=== PATIENT | female | born 1930 | race Caucasian/White ===

== ENCOUNTER 2017-07-05 07:16 | Inpatient (IN) | payer OTHER ==
--- OUTSIDE RECORDS SUMMARY | 2017-07-05 07:19 | XMS REPORT | Clinical Summary ---
:1930 Author Organization [facility] Address [address] [place] [address] Phone Care Team Providers Name Role Phone Unavailable Primary Care Provider Unavailable Allergies Active Allergy Reactions Severity Noted Date Comments Mesalamine Rash High 12/05/2015 Sore throat, eyes hurt, "large whelps" Adalimumab Swelling High 12/05/2015 Methotrexate Analogues Other (See High 12/05/2015 SOB Comments) Abatacept (With Swelling High 12/05/2015 Maltose) Promethazine Other (See High 12/05/2015 Hallucinations Comments) Rituximab Swelling High 12/05/2015 Sulfasalazine Other (See Medium 12/05/2015 Headaches, weakness Comments) Current Medications Prescription Sig. Disp. Refills Start Date End Date Status esomeprazole (NEXIUM) 40 Take 40 mg by Active MG capsule mouth 2 (two) times daily . PARoxetine (PAXIL) 40 MG Take 40 mg by Active tablet mouth every morning. predniSONE (DELTASONE) 5 Take 5 mg by Active MG tablet mouth 2 (two) times daily . cycloSPORINE (RESTASIS) 1 drop 2 (two) Active 0.05 % ophthalmic times daily. emulsion budesonide-formoterol Inhale 2 puffs by Active (SYMBICORT) 160-4.5 mouth via inhaler mcg/actuation inhaler 2 (two) times daily. albuterol HFA (VENTOLIN Inhale 1 puff by Active HFA) 90 mcg/actuation mouth via inhaler inhaler every 6 (six) hours as needed for Wheezing. umeclidinium (INCRUSE Inhale 1 puff by Active ELLIPTA) 62.5 mouth via inhaler mcg/actuation DsDv daily . powder for inhalation aspirin 81 MG EC tablet Take 81 mg by Active mouth daily. furosemide (LASIX) 20 MG Take 20 mg by Active tablet mouth as needed. levothyroxine Take 50 mcg by 12/06/2015 12/05/2016 (SYNTHROID, LEVOTHROID) mouth Every 75 MCG tablet morning on an empty stomach. Active Problems Problem Noted Date Arrhythmia 02/02/2016 PVC (premature ventricular contraction) 02/01/2016 TIA (transient ischemic attack) 01/31/2016 Hypothyroidism 01/31/2016 Transient cerebral ischemia, unspecified type 12/05/2015 COPD (chronic obstructive pulmonary disease) (HCC) GERD (gastroesophageal reflux disease) Anxiety Thyroid disease Social History Tobacco Use Types Packs/Day Years Used Date Never Smoker Sex Assigned at Date Recorded Not on file Last Filed Vital Signs Not on file Plan of Treatment Not on file Results Not on fileafter 07/04/2016
--- OUTSIDE RECORDS SUMMARY | 2017-07-05 07:19 | XMS REPORT | Clinical Summary ---
:1930 Author Organization [facility] Address [address] [place] [address] Care Team Providers Name Role Phone Asked, No Pcp Primary Care Provider Unavailable Allergies Active Allergy Reactions Severity Noted Date Comments Mesalamine Itching 03/31/2017 Adalimumab Swelling, Shortness Of Breath High 02/18/2016 Methotrexate Shortness Of Breath High 03/31/2017 Abatacept Other (See Comments) 02/18/2016 Joint pains Promethazine Other (See Comments) 03/31/2017 Sulfasalazine Anaphylaxis High 03/31/2017 Current Medications Prescription Sig. Disp. Refills Start Date End Date Status ALPRAZolam (XANAX) Take 0.25 mg Active 0.25 MG tablet by mouth every morning. atorvastatin Take 40 mg by Active (LIPITOR) 40 MG mouth nightly. tablet roflumilast Take 500 mcg Active (DALIRESP) 500 mcg by mouth tablet daily. famotidine (PEPCID) Take 20 mg by Active 20 MG tablet mouth nightly. levothyroxine Take 50 mcg by Active (SYNTHROID, mouth daily. LEVOXYL) 50 mcg tablet lisinopril Take 10 mg by Active (PRINIVIL,ZESTRIL) mouth daily. 10 mg tablet PARoxetine (PAXIL) Take 40 mg by Active 10 MG tablet mouth daily with dinner. predniSONE Take 5 mg by Active (DELTASONE) 5 mg mouth 2 (two) tablet times a day. budesonide-formoter Inhale 2 puffs Active ol (SYMBICORT) 2 (two) times 160-4.5 a day. mcg/actuation inhaler albuterol (PROAIR Inhale 2 puffs Active HFA,PROVENTIL every 6 (six) HFA,VENTOLIN HFA) hours as 90 mcg/actuation needed for inhaler wheezing. tiotropium Place 1 Active (SPIRIVA) 18 mcg capsule into per inhalation inhaler and capsule inhale once daily. acetaminophen-codei Take 1 tablet Active ne (TYLENOL WITH by mouth every CODEINE #3) 300-30 6 (six) hours mg per tablet as needed for moderate pain (Headaches). benzonatate Take 200 mg by Active (TESSALON) 100 MG mouth 3 capsule (three) times a day as needed for cough. docusate sodium Take 100 mg by Active (COLACE) 100 MG mouth 2 (two) capsule times a day as needed for constipation. furosemide (LASIX) Take 20 mg by Active 20 mg tablet mouth 2 (two) times a day. clopidogrel Take 75 mg by Discontinued (PLAVIX) 75 mg mouth nightly. 8 tablet meloxicam (MOBIC) Take 7.5 mg by Discontinued 7.5 mg tablet mouth 2 (two) 8 times a day as needed (back pain). traMADol (ULTRAM) Take 1 tablet 30 tablet 0 04/18/2017 50 mg tablet (50 mg total) 8 by mouth every 6 (six) hours as needed for moderate pain for up to 10 days. simethicone Chew 1.5 180 tablet 0 04/18/2017 (MYLICON) 80 MG tablets (120 8 chewable tablet mg total) 4 (four) times a day for 30 days. clopidogrel Take 1 tablet 30 tablet 0 04/19/2017 (PLAVIX) 75 mg (75 mg total) 8 tablet by mouth daily for 30 days. pantoprazole Take 1 tablet 30 tablet 0 04/19/2017 (PROTONIX) 40 MG EC (40 mg total) 8 tablet by mouth daily for 30 days. polyethylene glycol Take 17 g by 30 packet 0 04/20/2017 (MIRALAX) 17 gram mouth daily 8 packet for 30 days. Active Problems Problem Noted Date Hiatal hernia 03/31/2017 Encounters Date Type Specialty Care Team Description 04/25/2017 Office Visit General Surgery Jose Alberto Chiu Surgery follow-up MD Jamie (Primary Dx) 2017 Telephone General Surgery Sheryl Herron PA 04/12/2017 Anesthesia Event General Surgery Madhu Monsivais MD 04/12/2017 Procedure Pass General Surgery 04/12/2017 Surgery General Surgery Jose Alberto Chiu LAPAROSCOPIC HIATAL MD Jamie HERNIA REPAIR converted to OPEN HIATAL HERNIA REPAIR WITH FUNDOPLICATION 04/08/2017 - Hospital Encounter General Surgery Jose Alberto Chiu 04/19/2017 MD Lenka Ayala Chau L., MD Kazim, Lubna S., MD 04/08/2017 Procedure Pass General Surgery 04/08/2017 Surgery General Surgery Jose Alberto Chiu Canceled MD Jamie LAPAROSCOPIC VS OPEN HIATAL HERNIA REPAIR 03/31/2017 - Hospital Encounter Cardiology Kevin Andre Hiatal hernia ( Primary 04/07/2017 MD Michelle Dx) Ambrosio Og MD 03/31/2017 Office Visit General Surgery Jose Alberto Chiu Hiatal hernia ( Primary RMD Pratima Dx) after 07/04/2016 Family History Medical History Relation Name Comments No Known Problems Brother Cancer Father Hypertension Father Vision loss Father No Known Problems Maternal Grandfather No Known Problems Maternal Grandmother Thyroid disease Mother Vision loss Mother No Known Problems Paternal Grandfather No Known Problems Paternal Grandmother No Known Problems Sister Relation Name Status Comments Brother Father Maternal Grandfather Maternal Grandmother Mother Paternal Grandfather Paternal Grandmother Sister Social History Tobacco Use Types Packs/Day Years Used Date Never Smoker Smokeless Tobacco: Never Used Tobacco Cessation: Counseling Given: No Alcohol Use Drinks/Week oz/Week Comments No Sex Assigned at Date Recorded Not on file Last Filed Vital Signs Vital Sign Reading Time Taken Blood Pressure 154/73 04/19/2017 11:52 AM FIRE PRODUCTION OPERATOR Pulse 101 04/19/2017 1:00 PM FIRE PRODUCTION OPERATOR Temperature 36.7 C (98 F) 04/19/2017 11:52 AM FIRE PRODUCTION OPERATOR Respiratory Rate 20 04/19/2017 1:00 PM FIRE PRODUCTION OPERATOR Oxygen Saturation 96% 04/19/2017 2:33 PM FIRE PRODUCTION OPERATOR Inhaled Oxygen Concentration - - Weight 54.4 kg (120 lb) 04/12/2017 12:01 PM FIRE PRODUCTION OPERATOR Height 149.9 cm (4' 11") 04/12/2017 12:01 PM FIRE PRODUCTION OPERATOR Body Mass Index 24.24 04/12/2017 12:01 PM FIRE PRODUCTION OPERATOR Plan of Treatment Health Maintenance Due Date Last Done Comments ZOSTER VACCINE 1991 PNEUMOCOCCAL POLYSACCHARIDE VACCINE AGE 65 AND OVER 1996 PNEUMOCOCCAL-13 1996 INFLUENZA VACCINE 10/12/2017 Implants Implanted Type Area Pc Support Specialist Device Identifier Expiration Date Model / Serial / Lot Reveal Linq-02/02/2016 Implanted: Qty: 1 on 02/02/2016 Procedures Procedure Name Priority Date/Time Associated Diagnosis Comments CENTRAL LINE Routine 04/12/2017 2:01 PM FIRE PRODUCTION OPERATOR Procedure Note - Madhu Monsivais MD - 04/12/2017 2:00 PM FIRE PRODUCTION OPERATOR Central line Performed by: MADHU MONSIVAIS Authorized by: MADHU MONSIVAIS Start Time: 04/12/2017 1:20 PM Preprocedure:patient identified, IV checked, site and side verified, risks and benefits discussed, procedure verified, surgical consent complete, patient position confirmed, monitors and equipment checked and pre-op evaluation complete MSBT: antiseptic used during central venous catheter insertion, all elements of maximal sterile barrier technique followed, hand hygiene performed prior to central venous catheter insertion, cap/gown used by other personnel during central venous catheter insertion, solutions labeled and all ports not used during insertion clamped TIme Out Performed: 04/12/2017 1:20 PM Indications: Indications: Vascular access Anesthesia: Anesthesia: General Procedure details: Patient position: Supine Catheter Type: Double lumen Catheter Size: 8 Fr Catheter Site: femoral vein Catheter site laterality: Right Catheter Site comment: Attempted right IJ and left IJ separately with ultrasound; both got great flow, but wire wouldnt thread Ultrasound guidance used: Yes Ultrasound image saved: No Number of attempts: 3 Successful placement: Yes Guidewire removal: Guidewire removal is confirmed Guidewire removal witnessed by: DOMINGO RIOJAS Post-procedure: Post-procedure: line sutured, sterile dressing applied per protocol and ports flushed with saline Post-procedure: Blood cleaned with CHG and sterile caps on all hubs Assessment: Blood return through all ports and free fluid flow Patient tolerance: Patient tolerated the procedure well with no immediate complications [place] AN ELECTIVE ENDOTRACHEAL AIRWAY Routine 04/12/2017 1:58 PM FIRE PRODUCTION OPERATOR Procedure Note - Madhu Monsivais MD - 04/12/2017 1:58 PM FIRE PRODUCTION OPERATOR Airway Performed by: MADHU MONSIVAIS Authorized by: MADHU MONSIVAIS Location: OR Urgency: Elective Difficult Airway: No Preoxygenated with 100% O2: Yes C-spine Precautions Maintained Throughout: Yes Mask Ventilation: Easy mask Final Airway Type: Endotracheal airway Final Endotracheal Airway: ETT Technique Used: Direct laryngoscopy Blade Type: Randall Laryngoscope Blade/Videolaryngoscope Blade Size: 2 ETT Size (mm): 7.0 Measured from: Lips ETT to Lips (cm): 21 Placement Verified by: CO2 detection and direct visualization Laryngoscopic view: Grade I - full view of glottis Rapid Sequence Induction (RSI): No Modified RSI: No Number of Attempts at Approach: 1 LAPAROSCOPIC HIATAL 04/12/2017 1:30 PM Hiatal hernia HERNIA REPAIR converted FIRE PRODUCTION OPERATOR to OPEN HIATAL HERNIA REPAIR WITH FUNDOPLICATION CV STRESS TEST NUCLEAR Routine 04/02/2017 9:47 AM Results for this CARDIO FIRE PRODUCTION OPERATOR procedure are in the results section. ECHOCARDIOGRAM 2D Routine 04/01/2017 4:35 PM Results for this COMPLETE W MMODE FIRE PRODUCTION OPERATOR procedure are in SPECTRAL COLOR DOPPLER the results (54540) section. after 07/04/2016 Results Pv duplex venous lower extremity (04/19/2017 11:11 AM) Specimen Performing Laboratory [facility] [address] [place] [address] Narrative Vascular Ultrasound Laboratory Lower Extremity Venous Report [address] [place] [address] Pat.Name:ELVA JENKINS Pat.ID:[id number] .Date: 04/19/2017Refer.MD:AMBROSIO OG MD Exam Time: 10:32:00 AM Study Type:LE Venous Height:59inWeight:120lb BSA: 1.49 m2 DOBAge:1930,86Y Sex: FEMALESonogrphr: Eliel Ghotra RN, RVS Pat. Stat.:OutpatientTapeVol: PM, CPT - 4: 60802 Echo Event ID:[id number] Order ID:[id number] Reason for Study:Bilateral leg edema. Race:C SUMMARY: DUPLEX SCAN OBSERVATIONS Deep VeinsSuperficial Veins RightLeft RightLeft GSV (prox) NormalNormal CFV Normal Normal (above knee) Femoral Normal Normal GSV (dist) Normal Normal Profunda Normal Normal (below knee) Popliteal Normal Normal PT (prox) Normal NormalSSV Normal Normal PT (dist) Normal Normal Peroneal Normal Normal RIGHT: There is normal compressibility with no evidence of echogenic material noted within the lumen of the visualized veins. Colorflow and Doppler signals are normal. LEFT: There is normal compressibility with no evidence of echogenic material noted within the lumen of the visualized veins. Colorflow and Doppler signals are normal. PRELIMINARY FINDINGS 1. Normal venous duplex exam of the visualized veins. PHYSICIAN INTERPRETATION 1.Venous examination of the both lower extremities demonstrates no evidence of venous thrombosis. Signed 04/19/2017 12:55 PM Tucker Kc MD Procedure Note Interface, Radiology Results In - 04/19/2017 12:56 PM [facility] Vascular Ultrasound Laboratory Lower Extremity Venous Report [address] [place] [address] Pat.Name: ELVA JENKINS [facility].ID: [id number] .Date: 04/19/2017 Refer.MD: AMBROSIO OG MD Exam Time: 10:32:00 AM Study Type:LE Venous Height: 59in Weight: 120lb BSA: 1.49 m2 Age: 2 1930,86Y Sex: FEMALE Sonogrphr: Eliel Ghotra RN, RVS Pat. Stat.:Outpatient Tape Vol: PM, [facility] - 4: 15880 Echo Event ID:[id number] Order ID: [id number] Reason for Study:Bilateral leg edema. Race: C SUMMARY: DUPLEX SCAN OBSERVATIONS Deep Veins Superficial Veins Right Left Right Left GSV (prox) Normal Normal CFV Normal Normal (above knee) Femoral Normal Normal GSV (dist) Normal Normal Profunda Normal Normal (below knee) Popliteal Normal Normal PT (prox) Normal Normal SSV Normal Normal PT (dist) Normal Normal Peroneal Normal Normal RIGHT: There is normal compressibility with no evidence of echogenic material noted within the lumen of the visualized veins. Colorflow and Doppler signals are normal. LEFT: There is normal compressibility with no evidence of echogenic material noted within the lumen of the visualized veins. Colorflow and Doppler signals are normal. PRELIMINARY FINDINGS 1. Normal venous duplex exam of the visualized veins. PHYSICIAN INTERPRETATION 1. Venous examination of the both lower extremities demonstrates no evidence of venous thrombosis. Signed 04/19/2017 12:55 PM Tucker Kc MD Estimated GFR (04/19/2017 4:00 AM)Only the most recent of19 resultswithin the time period is included. Component Value Ref Range GFR Non Af Amer 79 mL/min/1.73 m2 GFR Af Amer >90 mL/min/1.73 m2 Comment: Chronic kidney disease: <60 mL/min/1.73m2 Kidney failure: <15 mL/min/1.73m2 The estimated GFR is calculated from the IDMS-traceable Modification of Diet in Renal Disease Equation. The accuracy of the calculation is poor when the creatinine is normal. Calculated values >90 mL/min/1.73m2 are not reported. This equation has not been validated in children (<18 years), women, the elderly (>70 years), or ethnic groups other than Caucasians and Americans. Specimen Performing Laboratory Plasma specimen [facility] DEPARTMENT OF PATHOLOGY AND GENOMIC MEDICINE [address] [place] [address] Phosphorus level (04/19/2017 4:00 AM)Only the most recent of5 resultswithin the time period is included. Component Value Ref Range Phosphorus 2.6 2.4 - 4.5 mg/dL Specimen Performing Laboratory Plasma specimen [facility] DEPARTMENT OF PATHOLOGY AND GENOMIC MEDICINE [address] [place] [address] Magnesium level (04/19/2017 4:00 AM)Only the most recent of4 resultswithin the time period is included. Component Value Ref Range Magnesium 1.6 1.6 - 2.4 mg/dL Specimen Performing Laboratory Plasma specimen [facility] DEPARTMENT OF PATHOLOGY AND GENOMIC MEDICINE [address] [place] [address] Basic metabolic panel (04/19/2017 4:00 AM)Only the most recent of17 resultswithin the time period is included. Component Value Ref Range Sodium 141 135 - 148 mEq/L Potassium 3.4 (L) 3.5 - 5.0 mEq/L Chloride 100 98 - 112 mEq/L CO2 30 24 - 31 mEq/L Anion gap 11 7 - 15 mEq/L Comment: Starting from June , anion gap calculation no longer incorporates potassium. Please note the change. BUN 7 (L) 8 - 23 mg/dL Creatinine 0.7 0.5 - 0.9 mg/dL Glucose 117 (H) 65 - 99 mg/dL Calcium 8.2 (L) 8.8 - 10.2 mg/dL Specimen Performing Laboratory Plasma specimen [facility] DEPARTMENT OF PATHOLOGY AND GENOMIC MEDICINE [address] [place] [address] CBC with platelet and differential (04/19/2017 3:45 AM)Only the most recent of19 resultswithin the time period is included. Component Value Ref Range WBC 10.26 4.50 - 11.00 k/uL RBC 2.89 (L) 4.20 - 5.50 m/uL HGB 9.0 (L) 12.0 - 16.0 g/dL HCT 27.2 (L) 37.0 - 47.0 % MCV 94.1 82.0 - 100.0 fL MCH 31.1 27.0 - 34.0 pg MCHC 33.1 31.0 - 37.0 g/dL RDW - SD 48.7 37.0 - 55.0 fL MPV 9.1 8.8 - 13.2 fL Platelet count 305 150 - 400 k/uL Nucleated RBC 0.00 /100 WBC Neutrophils 65.7 39.0 - 69.0 % Lymphocytes 26.3 25.0 - 45.0 % Monocytes 5.9 0.0 - 10.0 % Eosinophils 1.3 0.0 - 5.0 % Basophils 0.3 0.0 - 1.0 % Immature granulocytes 0.5Comment: "Immature granulocytes" 0.0 - 1.0 % (promyelocytes, myelocytes, metamyelocytes) Specimen Performing Laboratory Blood [facility] DEPARTMENT OF PATHOLOGY AND GENOMIC MEDICINE [address] [place] [address] XR Abdomen 1 Vw Portable (04/17/2017 1:00 PM)Only the most recent of2 resultswithin the time period is included. Specimen Performing Laboratory [facility] [address] [place] [address] Narrative EXAMINATION:XR ABDOMEN 1 VW PORTABLE CLINICAL HISTORY:Distention COMPARISON:April 16, 2017 IMPRESSION: Diffuse bowel distention, most pronounced in the right colon, is without significant change. The cecum measures approximately 7.5 cm. This is suggestive of ileus. Left femoral line is again noted. Midline skin digna are also present. [facility]-[id number] Procedure Note Interface, Radiology Results Incoming - 04/17/2017 1:07 PM FIRE PRODUCTION OPERATOR EXAMINATION: XR ABDOMEN 1 VW PORTABLE CLINICAL HISTORY: Distention COMPARISON: April 16, 2017 IMPRESSION: Diffuse bowel distention, most pronounced in the right colon, is without significant change. The cecum measures approximately 7.5 cm. This is suggestive of ileus. Left femoral line is again noted. Midline skin digna are also present. [facility]-[id number] XR Abdomen 2 Vw Ap W Upright And/Or Decubitus (04/16/2017 9:23 AM) Specimen Performing Laboratory [facility] [address] [place] [address] Narrative EXAMINATION:XR ABDOMEN 2 VW AP W UPRIGHT AND OR DECUBITUS CLINICAL HISTORY:Distention COMPARISON:04/15/2017 IMPRESSION: 1.There are operative changes related to laparotomy. Surgical clips are seen in the right upper quadrant consistent with prior cholecystectomy. A left femoral central venous catheter remains in place. 2.A dilated loop of bowel is present in the right lower abdomen likely representing the cecum. A few air-fluid levels are present. There is no evidence of free intraperitoneal air. 3.There is patchy volume loss at the left lung base with a tiny left pleural effusion. [id number] Procedure Note Interface, Radiology Results Incoming - 04/16/2017 9:31 AM FIRE PRODUCTION OPERATOR EXAMINATION: XR ABDOMEN 2 VW AP W UPRIGHT AND OR DECUBITUS CLINICAL HISTORY: Distention COMPARISON: 04/15/2017 IMPRESSION: 1. There are operative changes related to laparotomy. Surgical clips are seen in the right upper quadrant consistent with prior cholecystectomy. A left femoral central venous catheter remains in place. 2. A dilated loop of bowel is present in the right lower abdomen likely representing the cecum. A few air-fluid levels are present. There is no evidence of free intraperitoneal air. 3. There is patchy volume loss at the left lung base with a tiny left pleural effusion. [facility]-[id number] ECG 12 lead (04/13/2017 4:43 AM)Only the most recent of2 resultswithin the time period is included. Component Value Ref Range Ventricular rate 112 Atrial rate 112 [place] interval 122 QRSD interval 72 QT interval 330 QTC interval 450 P axis 1 55 QRS axis 1 21 T wave axis 40 EKG impression Sinus tachycardia-Otherwise normal ECG-In automated comparison with ECG of 02-APR-2017 06:09,-No significant change was found- Specimen Performing Laboratory [facility] MUSE [address] [place] [address] XR Chest 1 Vw Portable (04/12/2017 3:48 PM) Specimen Performing Laboratory [facility] [address] [place] [address] Narrative Examination:XR CHEST 1 VW PORTABLE Clinical history:"Attempted central line placements" Comparison:None IMPRESSION: Lungs are clear. Heart size is within normal limits. Bones are osteopenic. Left cervical calcifications are seen. [id number] Procedure Note [facility], Radiology Results Incoming - 04/12/2017 4:14 PM FIRE PRODUCTION OPERATOR Examination: XR CHEST 1 VW PORTABLE Clinical history: "Attempted central line placements" Comparison: None IMPRESSION: Lungs are clear. Heart size is within normal limits. Bones are osteopenic. Left cervical calcifications are seen. [id number] Partial thromboplastin time, activated (04/12/2017 4:00 AM)Only the most recent of2 resultswithin the time period is included. Component Value Ref Range PTT 25.6 23.0 - 36.0 sec Comment: PTT therapeutic range for unfractionated heparin is 61.0-112.0 seconds which corresponds to Anti-Xa 0.3-0.7 U/ml. Specimen Performing Laboratory Blood [facility] DEPARTMENT OF PATHOLOGY AND GENOMIC MEDICINE [address] [place] [address] Prothrombin time with INR (04/12/2017 4:00 AM)Only the most recent of2 resultswithin the time period is included. Component Value Ref Range Prothrombin time 13.2 12.0 - 15.0 sec INR 1.0 Comment: The International Normalized Ratio (INR) is a therapeutic monitoring tool for patients who are stable on oral anticoagulant therapy. An INR of 2.0-3.0 is suggested for deep vein thrombosis/pulmonary embolism. Specimen Performing Laboratory Blood [facility] DEPARTMENT OF PATHOLOGY AND GENOMIC MEDICINE [address] [place] [address] Type and screen (04/12/2017 4:00 AM) Component Value Ref Range ABO grouping A Rh type POS Antibody screen (gel) NEG Specimen Performing Laboratory Blood [facility] DEPARTMENT OF PATHOLOGY AND GENOMIC MEDICINE [address] [place] [address] XR Chest 2 Vw (04/11/2017 7:49 PM)Only the most recent of3 resultswithin the time period is included. Specimen Performing Laboratory [facility] [address] [place] [address] Narrative Examination: Chest 2 views CLINICAL HISTORY: COPD Emphysema COMPARISON: None. FINDINGS: The heart is not enlarged. There is a large retrocardiac hiatal hernia. IMPRESSION: . There is better aeration of both lungs when compared to a recent CT scan from 04/08/2017 with a most complete resolution of right lower lobe parenchymal infiltrates. No pleural effusion. [id number] Procedure Note [facility], Radiology Results Incoming - 04/11/2017 8:47 PM FIRE PRODUCTION OPERATOR Examination: Chest 2 views CLINICAL HISTORY: COPD Emphysema COMPARISON: None. FINDINGS: The heart is not enlarged. There is a large retrocardiac hiatal hernia. IMPRESSION: . There is better aeration of both lungs when compared to a recent CT scan from 04/08/2017 with a most complete resolution of right lower lobe parenchymal infiltrates. No pleural effusion. [id number] Vancomycin level, trough (04/11/2017 3:00 PM) Component Value Ref Range Vancomycin, trough 7.1 (L) 10.0 - 20.0 ug/mL Comment: Therapeutic Ranges: Peak 30.0 - 40.0 ug/mL Aiksmg30.0 - 20.0 ug/mL Specimen Performing Laboratory Serum [facility] DEPARTMENT OF PATHOLOGY AND [facility] MEDICINE [address] [place] [address] Sputum culture (04/11/2017 10:00 AM) Component Value Ref Range Sputum culture isolate No normal oral jamal isolated. (A) Comment: Specimen Information Specimen Source: Sputum Specimen Site: Expectorated Sputum culture isolate Amber albicans Occasional The performance characteristics of this assay on this isolate were validated by the Microbiology Laboratory at [facility].This source has not been approved by the U.S. Food and Drug Administration.The results are not intended to be used as the sole means for clinical diagnosis or patient management.The Microbiology Laboratory is authorized under the clinical Laboratory Improvement Amendments of 1988 (CLIA-88) to perform high complexity testing. The performance characteristics of this assay on this isolate were validated by the Microbiology Laboratory at [facility].This source has not been approved by the U.S. Food and Drug Administration.The results are not intended to be used as the sole means for clinical diagnosis or patient management.The Microbiology Laboratory is authorized under the clinical Laboratory Improvement Amendments of 1988 (CLIA-88) to perform high complexity testing. (A) Specimen Performing Laboratory Sputum - Expectorated [facility] DEPARTMENT OF PATHOLOGY AND GENOMIC MEDICINE [address] [place] [address] Gram stain (04/11/2017 10:00 AM) Component Value Ref Range Gram stain isolate No WBC's Few epithelial cells No organisms seen Comment: Specimen Information Specimen Source: Sputum Specimen Site: Expectorated Specimen Performing Laboratory Sputum - Expectorated [facility] DEPARTMENT OF PATHOLOGY AND GENOMIC MEDICINE [address] [place] [address] CT Chest Wo Contrast (04/08/2017 8:17 PM) Specimen Performing Laboratory [facility] [address] [place] [address] Narrative EXAMINATION: CT CHEST WO CONTRAST CLINICAL HISTORY: reported nodule on lungnew fevers TECHNIQUE:Multiple axial images of the chest were obtained without intravenous contrast. The lack of intravenous contrast reduces the sensitivity of detecting solid organ disease and evaluating vasculature. Sagittal and coronal computerized reformatted images were also obtained. CT scans are performed using radiation dose reduction techniques. Technical factors are evaluated and adjusted to ensure appropriate moderation of exposure. Automated dose management technology is applied to adjust radiation exposure while achieving a diagnostic quality image COMPARISON: Multiple nodular areas with irregular borders are noted throughout the right lower lobe.While neoplasm is not excluded multifocal inflammatory processes are considered more likely.No such findings are seen in the right upper lobe or in the left lung field. IMPRESSION: Bilateral multifocal irregular nodules most compatible with inflammatory change. [facility]-[id number] Procedure Note Hm Interface, Radiology Results Incoming - 04/08/2017 8:27 PM FIRE PRODUCTION OPERATOR EXAMINATION: CT CHEST WO CONTRAST CLINICAL HISTORY: reported nodule on lung new fevers TECHNIQUE: Multiple axial images of the chest were obtained without intravenous contrast. The lack of intravenous contrast reduces the sensitivity of detecting solid organ disease and evaluating vasculature. Sagittal and coronal computerized reformatted images were also obtained. CT scans are performed using radiation dose reduction techniques. Technical factors are evaluated and adjusted to ensure appropriate moderation of exposure. Automated dose management technology is applied to adjust radiation exposure while achieving a diagnostic quality image COMPARISON: Multiple nodular areas with irregular borders are noted throughout the right lower lobe. While neoplasm is not excluded multifocal inflammatory processes are considered more likely. No such findings are seen in the right upper lobe or in the left lung field. IMPRESSION: Bilateral multifocal irregular nodules most compatible with inflammatory change. [facility]-[id number] Respiratory pathogen panel (04/08/2017 10:25 AM) Component Value Ref Range Respiratory pathogen panel Negative for all pathogens tested: Negative for Adenovirus Negative for Coronavirus HKU1 Negative for Coronavirus NL63 Negative for Coronavirus 229E Negative for Coronavirus OC43 Negative for Human Metapneumovirus Negative for Rhinovirus/Enterovirus Negative for Influenza A Negative for Influenza A/H1 Negative for Influenza A/H3 Negative for Influenza A/H1-2009 Negative for Influenza B Negative for Parainfluenza Virus 1 Negative for Parainfluenza Virus 2 Negative for Parainfluenza Virus 3 Negative for Parainfluenza Virus 4 Negative for Respiratory Syncytial Virus Negative for Bordetella pertussis Negative for Chlamydophila pneumoniae Negative for Mycoplasma pneumoniae This real-time PCR assay detects the presence of nucleic acids (RNA or DNA) for the respiratory pathogens listed. A result of "Not-detected" does not exclude the possibility of the presence of one or more pathogens at concentrations less than the detectable limits of the assay. Comment: Specimen Information Specimen Source: Nares Specimen Site: Not specified Specimen Performing Laboratory Nares - Not specified [facility] DEPARTMENT OF PATHOLOGY AND GENOMIC MEDICINE [address] [place] [address] Urinalysis screen and microscopy, with reflex to culture (04/08/2017 8:33 AM) Component Value Ref Range Specimen site Random void Color, UA Dark Yellow Appearance, UA Clear Specific gravity, UA 1.016 1.001 - 1.035 pH, UA 7.0 5.0 - 8.5 Protein, UA Negative Negative Glucose, UA Negative Negative Ketones, UA Negative Negative Bilirubin, UA Negative Negative Blood, UA Negative Negative Nitrite, UA Negative Negative Urobilinogen, UA 2.0 (A) <2.0 Leukocyte esterase, UA Negative Negative Epithelial cells, UA 1 /HPF WBC, UA 1 0 - 4 /HPF RBC, UA 3 (H) 0 - 2 /HPF Bacteria, UA Few None seen Yeast, UA None seen Yeast with pseudohyphae, UA None seen Specimen Performing Laboratory Urine [facility] DEPARTMENT OF PATHOLOGY AND GENOMIC MEDICINE [address] [place] [id number] Urine culture (04/08/2017 8:33 AM) Component Value Ref Range Urine culture SEE COMMENTComment: Bacteriuria screen negative. Specimen Performing Laboratory [facility] DEPARTMENT OF PATHOLOGY AND [facility] [address] [place] [address] Blood culture, aerobic & anaerobic (04/08/2017 8:18 AM)Only the most recent of2 resultswithin the time period is included. Component Value Ref Range Blood culture isolate No growth after 5 days of incubation. Comment: Specimen Information Specimen Source: Blood Specimen Site: Hand, right Specimen Performing Laboratory Blood - Hand, right [facility] DEPARTMENT OF PATHOLOGY AND [facility] [address] [place] [address] Comprehensive metabolic panel (04/08/2017 8:00 AM)Only the most recent of2 resultswithin the time period is included. Component Value Ref Range Sodium 138 135 - 148 mEq/L Potassium 3.7 3.5 - 5.0 mEq/L Chloride 99 98 - 112 mEq/L CO2 28 24 - 31 mEq/L Anion gap 11 7 - 15 mEq/L Comment: Starting from June , anion gap calculation no longer incorporates potassium. Please note the change. BUN 12 8 - 23 mg/dL Creatinine 0.6 0.5 - 0.9 mg/dL Glucose 107 (H) 65 - 99 mg/dL Calcium 8.7 (L) 8.8 - 10.2 mg/dL Protein 5.8 (L) 6.3 - 8.3 g/dL Comment: 4.6-7.0 g/dL 1 week 4.4-7.6 g/dL 7 months-1year5.1-7.3 g/dL 1-2 years5.6-7.5 g/dL >3 years6.0-8.0 g/dL 18-150 6.3-8.3 g/dL Albumin 2.6 (L) 3.5 - 5.0 g/dL A/G ratio 0.8 0.7 - 3.8 Alkaline phosphatase 40 35 - 104 U/L AST 18 10 - 35 U/L ALT 17 5 - 50 U/L Total bilirubin 1.0 0.0 - 1.2 mg/dL Specimen Performing Laboratory Plasma specimen [facility] DEPARTMENT OF PATHOLOGY AND [facility] [address] [place] [address] C difficile toxin (04/06/2017 1:15 PM) Component Value Ref Range Clostridium difficile toxin No Clostridium difficle toxin present Comment: Specimen Information Specimen Source: Stool Specimen Site: Nonpreserved Specimen Performing Laboratory Stool - Nonpreserved [facility] [address] [address] C-reactive protein (04/03/2017 4:00 AM) Component Value Ref Range CRP <0.30 0.00 - 0.50 mg/dL Specimen Performing Laboratory Plasma specimen [facility] DEPARTMENT OF PATHOLOGY AND [facility] [address] [place] [address] Prealbumin level (04/03/2017 4:00 AM) Component Value Ref Range Prealbumin 23 16 - 32 mg/dL Specimen Performing Laboratory Serum [facility] DEPARTMENT PATHOLOGY [address] [address] Hepatic function panel (04/03/2017 4:00 AM) Component Value Ref Range Albumin 2.7 (L) 3.5 - 5.0 g/dL Total bilirubin 0.6 0.0 - 1.2 mg/dL Bilirubin direct <0.2 0.0 - 0.3 mg/dL Alkaline phosphatase 39 35 - 104 U/L Protein 5.4 (L) 6.3 - 8.3 g/dL Comment: 4.6-7.0 g/dL 1 week 4.4-7.6 g/dL 7 months-1year5.1-7.3 g/dL 1-2 years5.6-7.5 g/dL >3 years6.0-8.0 g/dL 18-150 6.3-8.3 g/dL ALT 20 5 - 50 U/L AST 18 10 - 35 U/L Specimen Performing Laboratory Plasma specimen [facility] DEPARTMENT OF PATHOLOGY AND GENOMIC MEDICINE [address] [place] [address] CV stress test (04/02/2017 9:47 AM) Component Value Ref Range Resting HR 89 Resting BP 134 Peak MET Achieved 1.0 Protocol Name REGADENO Time in Exercise Phase 00:01:00 Max Systolic BP 134 Max Diastolic BP 60 Max Heart Rate 113 Max Predicted Heart Rate 135 Target HR Formula (220 - Age)*100% Test Indication chest pain Arrhy During Ex ECG Interp Before EX ECG Interp During Ex Ex Summary Comment Overall HR Response to Exercise Overall BP Response To Exercise Reason for Termination Stress Test Impression -Waveform interpreted in report associated with image study. No interpretation is provided as part of this Stress ECG report.-Electronically Signed By Liberty PALOMARES, Eduard ([id number]), school photograph editor Esa Munoz ([id number]) on 04/03/2017 1:32:55 PM Specimen Performing Laboratory [facility] MUSE [address] [place] [address] Nm myocardial perfusion (04/02/2017 9:47 AM) Specimen Performing Laboratory [facility] [address] [place] [address] Narrative Nuclear Cardiology and Cardiac CT [address] [place] [address] Myocardial Perfusion Imaging Report Stress ECG tracings are available in MUSE, EPIC and CV Web All ECG interpretations are included in this report Pat.Name:ELVA JENKINS Pat.ID:[id number] .Date: 04/02/2017 Refer.MD:KEVIN ANDRE MD Exam Time: 8:46:00 AM Study Type:Myocardial Perfusion Imaging Height:59inWeight:119lb BSA: 1.48 m2 DOBAge:1930,86Y Sex: FEMALEBP:134/60 HR:89 bpm Nuclear Tech:CARRIE Carpenter, SEBASTIÁN/CARRIE Najera Pat. Stat.:Inpatient Room:A748 Nuclear Event ID:[id number] Order ID:[id number] Reason for Study:Pre-op evaluation, intermediate/high risk patient History / Clinical:COPD, Hyperlipidemia, Hypertension Procedures:Stress only Race: Risk Factors:Hyperlipidemia, Hypertension Clinical Symptoms:Regadenoson Physical Exam:S1, S2, clear lungs Surgery: Serum K+ Date,3.7/18, Troponin I Date,1)not done/ 2)/ 3)/, BUN/Creatinine Date,180.8/03/31/17 Medications:Lasix, Lipitor, Lisinopril, Plavix SUMMARY: SCINTIGRAPHIC RESULTS Perfusion Defect Size (% LV) 0 % Total 0 % Ischemia 0 % Scar Left Ventricular Perfusion Results There is normal tracer distribution throughout the myocardium during stress. Gated SPECT Results The post-stress left ventricular ejection fraction is 95 % with normal regional wall motion and left ventricular thickening.Left ventricular end-diastolic volume is 44 ml; end-systolic volume is2 ml. The left ventricle is of normal size at stress.The right ventricle is of normal size with normal wall motion. Conclusion Normal regadenoson Tc-99m tetrofosmin myocardial perfusion study. The left ventricular ejection fraction is normal. Comments Patients with a normal stress myocardial perfusion study have a low (< 1%) annual risk of cardiac or nonfatal myocardial infarction. Study Quality/Artifacts The study quality is good. Comparison to Previous Study None available. STRESS: Baseline Vital Signs:Intervention: Regadenoson 0.4mg/5ml IV over 10 seconds followed by radiotracer injection and 5ml saline flush ECG: Normal Sinus Rhythm, Atrial premature depolarizations HR:89 BP:134/60 Stress Test Results: Target HR: 115 Symptoms and Complications: Arrhythmias: Ventricular premature depolarizations Terminated: As per Regadenoson protocol Symptoms:Shortness of breath Complications: none Stress ECG Interp: No ischemic ST segment change occurred with stress. Signed 04/02/2017 11:24 AM Eduard Koenig MD Procedure Note Interface, Radiology Results In - 04/02/2017 11:24 AM FIRE PRODUCTION OPERATOR Nuclear Cardiology and Cardiac CT [address] [place] [address] Myocardial Perfusion Imaging Report Stress ECG tracings are available in [employer], [employer] and [employer] All ECG interpretations are included in this report Pat.Name: ELVA JENKINS Pat.ID: [id number] .Date: 04/02/2017 Refer.MD: KEVIN ANDRE MD Exam Time: 8:46:00 AM Study Type:Myocardial Perfusion Imaging Height: 59in Weight: 119lb BSA: 1.48 m2 Age: 2 1930,86Y Sex: FEMALE BP: 134/60 HR: 89 bpm Nuclear Tech:CASIE CarpenterMT, ARRT/CARRIE Najera Pat. Stat.:Inpatient Room: A748 Nuclear Event ID:[id number] Order ID: [id number] Reason for Study:Pre-op evaluation, intermediate/high risk patient History / Clinical:COPD, Hyperlipidemia, Hypertension Procedures:Stress only Race: Risk Factors:Hyperlipidemia, Hypertension Clinical Symptoms:Regadenoson Physical Exam:S1, S2, clear lungs Surgery: Serum K+ Date, 3.7/03/31/17, Troponin I Date, 1)not done/ 2)/ 3)/, BUN/Creatinine Date, 18/0.8/03/31/17 Medications:Lasix, Lipitor, Lisinopril, Plavix SUMMARY: SCINTIGRAPHIC RESULTS Perfusion Defect Size (% LV) 0 % Total 0 % Ischemia 0 % Scar Left Ventricular Perfusion Results There is normal tracer distribution throughout the myocardium during stress. Gated SPECT Results The post-stress left ventricular ejection fraction is 95 % with normal regional wall motion and left ventricular thickening. Left ventricular end-diastolic volume is 44 ml; end-systolic volume is 2 ml. The left ventricle is of normal size at stress. The right ventricle is of normal size with normal wall motion. Conclusion Normal regadenoson Tc-99m tetrofosmin myocardial perfusion study. The left ventricular ejection fraction is normal. Comments Patients with a normal stress myocardial perfusion study have a low (< 1%) annual risk of cardiac or nonfatal myocardial infarction. Study Quality/Artifacts The study quality is good. Comparison to Previous Study None available. STRESS: Baseline Vital Signs: Intervention: Regadenoson 0.4mg/5ml IV over 10 seconds followed by radiotracer injection and 5ml saline flush ECG: Normal Sinus Rhythm, Atrial premature depolarizations HR: 89 BP: 134/60 Stress Test Results: Target HR: 115 Symptoms and Complications: Arrhythmias: Ventricular premature depolarizations Terminated: As per Regadenoson protocol Symptoms: Shortness of breath Complications: none Stress ECG Interp: No ischemic ST segment change occurred with stress. Signed 04/02/2017 11:24 AM Eduard Koenig MD Alpha-1 antitrypsin level (04/02/2017 5:30 AM) Component Value Ref Range Alpha-1 antitrypsin 136 90 - 200 mg/dL Specimen Performing Laboratory Plasma specimen [facility] DEPARTMENT OF PATHOLOGY AND GENOMIC MEDICINE [address] [place] [address] Echocardiogram complete w contrast and 3D if needed (04/01/2017 4:35 PM) Specimen Performing Laboratory [facility] [address] [place] [address] Narrative Echocardiography Report [address] [place] [address] Pat.Name:ELVA JENKINS Pat.ID:[id number] .Date: 04/01/2017 Refer.MD:KEVIN ANDRE MD Exam Time: 1:15:00 PMStudy Type:Routine Echo Height:59inWeight:119lb BSA: 1.48 m2 DOBAge:1930,86Y Sex: FEMALEBP:140/66 HR:84 bpm Sonogrphr: Lindsay Edwards RDCS; Debra Zavaleta Pat. Stat.:Inpatient Room:[address] Study Status:Final Echo Event ID:[id number] Order ID:[id number] Reason for Study:Etiology - Symptoms or conditions potentialy related to suspected cardiac etiology including but not limited to chest pain, shortness of breath, palpitations, TIA, stroke, or peripheral embolic event History / Clinical:Shortness of Breath, COPD, Hypertension Procedures:2D Echo, Colorflow Doppler Race:C SUMMARY: LV EF is hyperdynamic. Estimated EF is >70%. RV systolic function is normal. LV filling pressure is normal. FINDINGS: LV: LV size is normal. There is mild concentric LV hypertrophy. LVEF is hyperdynamic. Overall wall motion is normal. EstimatedEF is >70%. RV: RV size is normal. RV systolic function is normal. LA: LA volume is difficult to assess. RA: RA volume is difficult to assess. AO: Aortic root diameter is upper limits of normal in size (for BSA). VELIA: Trace anterior pericardial effusion. Extra echoes within the pericardialspace suggesting presence of adipose tissue or fibro-adhesivematerial. IAS:Interatrial septum is thickened consistent with lipomatous hypertrophy. AV: Mild calcification of AV leaflets. MV: Mild thickening and calcification of mitral leaflets. Moderatemitral annular calcification. PV: Pulmonic valve not well seen. TV: No structural TV abnormalities noted. Mild tricuspid regurgitation Abdi: LV relaxation is impaired. LV filling pressure is normal. Other:Estimated PA systolic pressure is 37 mmHg, assuming a mean RAPof 5 mmHg. MEASUREMENTS: 2D Parasternal [place] LVOT 1.8 cmLA Ds3.5 cm LVIDd3.4 cmIndex 2.3 cm/m Ao An1.9 cm LVIDs1.9 cmAo Rtd 3.3 cm Index2.2 cm/m LV%fs 44.1 % LV Clhc492.6 g(87-129) IVSd 1.5 cmLVM Index 99.7 g/m2 LVPWd1.1 cmRWT0.6 DOPPLER LVOT For Flow LVOT Area2.5 cm2 LVOT SV 66.1 ml AHENzfKnz973.3 cm/sHR86.5 bpm LVOTpkPG 7.6 mmHgLVOT CO 5.7 l/min LVOTmnPG 4 mmHgLVOT CI3.9 l/m/m2 LVOT TVI26 cm Signed 04/01/2017 11:24 PM Sheila Gage MD Procedure Note Interface, Radiology Results In - 04/01/2017 11:24 PM [facility] Echocardiography Report [address] [place] [address] Pat.Name: ELVA JENKINS Pat.ID: [id number] .Date: 04/01/2017 Refer.MD: KEVIN ANDRE MD Exam Time: 1:15:00 PM Study Type:Routine Echo Height: 59in Weight: 119lb BSA: 1.48 m2 Age: 2 1930,86Y Sex: FEMALE BP: 140/66 HR: 84 bpm Sonogrphr: Lindsay Edwards RDCS; Debra Zavaleta Pat. Stat.:Inpatient Room: [address] Study Status:Final Echo Event ID:[id number] Order ID: [id number] Reason for Study:Etiology - Symptoms or conditions potentialy related to suspected cardiac etiology including but not limited to chest pain, shortness of breath, palpitations, TIA, stroke, or peripheral embolic event History / Clinical:Shortness of Breath, COPD, Hypertension Procedures:2D Echo, Colorflow Doppler Race: C SUMMARY: LV EF is hyperdynamic. Estimated EF is >70%. RV systolic function is normal. LV filling pressure is normal. FINDINGS: LV: LV size is normal. There is mild concentric LV hypertrophy. LV EF is hyperdynamic. Overall wall motion is normal. Estimated EF is >70%. RV: RV size is normal. RV systolic function is normal. LA: LA volume is difficult to assess. RA: RA volume is difficult to assess. AO: Aortic root diameter is upper limits of normal in size (for BSA). VELIA: Trace anterior pericardial effusion. Extra echoes within the pericardial space suggesting presence of adipose tissue or fibro-adhesive material. IAS: Interatrial septum is thickened consistent with lipomatous hypertrophy. AV: Mild calcification of AV leaflets. MV: Mild thickening and calcification of mitral leaflets. Moderate mitral annular calcification. PV: Pulmonic valve not well seen. TV: No structural TV abnormalities noted. Mild tricuspid regurgitation Abdi: LV relaxation is impaired. LV filling pressure is normal. Other: Estimated PA systolic pressure is 37 mmHg, assuming a mean RAP of 5 mmHg. MEASUREMENTS: 2D Parasternal Long [place] LVOT 1.8 cm LA Ds 3.5 cm LVIDd 3.4 cm Index 2.3 cm/m Ao An 1.9 cm LVIDs 1.9 cm Ao Rtd 3.3 cm Index 2.2 cm/m LV%fs 44.1 % LV Mass 147.6 g (87-129) IVSd 1.5 cm LVM Index 99.7 g/m2 LVPWd 1.1 cm RWT 0.6 DOPPLER LVOT For Flow LVOT Area 2.5 cm2 LVOT SV 66.1 ml LVOTpkVel 138.3 cm/s HR 86.5 bpm LVOTpkPG 7.6 mmHg LVOT CO 5.7 l/min LVOTmnPG 4 mmHg LVOT CI 3.9 l/m/m2 LVOT TVI 26 cm Signed 04/01/2017 11:24 PM Sheila Gage MD Pv carotid duplex (04/01/2017 4:08 PM) Specimen Performing Laboratory [facility] [address] Vascular Ultrasound Laboratory Carotid Artery Duplex Report [address] [place] [address] For quality inspector purposes, the categorization of the degree of the stenosis of this exam is based on criteria described in the IAC carotid stenosis grading white paper( www.intersocietal.org/Vascular) and Priyanka Avery, Michelle Oliveira, et al. Carotid artery stenosis: campbell-scale and Doppler US diagnosis--Society of Radiologists in Ultrasound Consensus Conference. Radiology. 2003 Nov; 229(2):340-6. Pat.Name:ELVA JENKINS Pat.ID:[id number] .Date: 04/01/2017 Exam Time: 2:54:00 PM Study Type:Carotid DOBAge:1930,86Y Sex: FEMALESonogrphr: Levi Nielsen RVT, [facility] Pat. Stat.:Inpatient Room:[address] TapeVol: HARDIK, CPT - 4: 34309 Echo Event ID:[id number] Order ID:[id number] Reason for Study:Preop. PMH of HTN, COPD, TIA. Race:C SUMMARY: PHYSICAL ASSESSMENT BloodPulsesCarotid Pressure Carotid TemporalBruit Right 120/72 ++0 Left IV ++0 CAROTID ARTERY SCAN RIGHT: There is smooth intimal lining in the common carotid artery. There is hard and calcified plaque noted in the bulb and the ostium of the internal carotid artery. Colorflow is normal. LEFT: There is smooth intimal lining in the common carotid artery. There is hard and calcified plaque noted in the bulb and the ostium of the internal carotid artery. Colorflow is normal. PRELIMINARY FINDINGS 1. <50%stenosis in the bulb and internal carotid artery, bilaterally. 2. Antegrade vertebral artery flow noted, bilaterally. PHYSICIAN INTERPRETATION 1.Bilateral carotid artery examination demonstrates plaque in the bulbs and internal carotid arteries without hemodynamically significant stenosis. (<50%) Carotid Findings:RightLeft Verteb.Flw AntegradeAntegrade Subclavian TriphasicTriphasic MEASUREMENTS: DOPPLER Right CCA Dist CCA Dist PSV48.1 cm/sCCA Dist EDV11.6 cm/s Right CCA Mid CCA Mid PSV 69 cm/sCCA Mid EDV 14.2 cm /s Right CCA Prox CCA Prox PSV70.3 cm/sCCA Prox EDV11.6 cm/s Right ECA Prox ECA Prox PSV54.6 cm/sECA Prox EDV 0 cm /s Right ICA Dist ICA Dist PSV76.6 cm/Wesley Dist EDV24.3 cm/s Right ICA Mid ICA Mid OEW019 cm/Wesley Mid EDV 32.1 cm /s Right ICA Prox ICA Prox PSV47 cm/Wesley Prox EDV17.4 cm /s Right Vertebral Vertebral PSV 56.8 cm/sVertebral EDV 15.4 cm/s Left CCA Dist CCA Dist PSV43.1 cm/sCCA Dist EDV7.91 cm/s Left CCA Mid CCA Mid PSV 68.2 cm/sCCA Mid EDV 13.2 cm/s Left CCA Prox CCA Prox PSV 112 cm/sCCA Prox EDV19.1 cm/s Left ECA Prox ECA Prox PSV61.8 cm/sECA Prox EDV 0 cm /s Left ICA Dist ICA Dist PSV58.4 cm/Wesley Dist EDV16 cm /s Left ICA Mid ICA Mid PSV 62.4 cm/Wesley Mid EDV 20 cm /s Left ICA Prox ICA Prox PSV44.3 cm/Wesley Prox EDV14.4 cm/s Left Vertebral Vertebral PSV 48.3 cm/sVertebral EDV 10.7 cm/s Right ICA/CCA Ratio ICA/CCA PSV0.681 Left ICA/CCA Ratio ICA/CCA PSV 0.65 Signed 04/01/2017 04:10 PM Tucker Kc MD Procedure Note Interface, Radiology Results In - 04/01/2017 4:11 PM [facility] Vascular Ultrasound Laboratory Carotid Artery Duplex Report [address] [address], [place] [address] For quality inspector purposes, the categorization of the degree of the stenosis of this exam is based on criteria described in the IAC carotid stenosis grading white paper( www.intersocietal.org/Vascular) and Priyanka Avery, Michelle Oliveira, et al. Carotid artery stenosis: campbell-scale and Doppler US diagnosis--Society of Radiologists in Ultrasound Consensus Conference. Radiology. 2003 Nov; 229(2):340-6. Pat.Name: ELVA JENKINS Pat.ID: [id number] .Date: 04/01/2017 Exam Time: 2:54:00 PM Study Type:Carotid Age: 2 1930,86Y Sex: FEMALE Sonogrphr: Levi Nielsen RVT, [facility] Pat. Stat.:Inpatient Room: [address] Tape Vol: MK, CPT - 4: 07565 Echo Event ID:[id number] Order ID: [id number] Reason for Study:Preop. PMH of HTN, COPD, TIA. Race: C SUMMARY: PHYSICAL ASSESSMENT Blood Pulses Carotid Pressure Carotid Temporal Bruit Right 120/72 + + 0 Left IV + + 0 CAROTID ARTERY SCAN RIGHT: There is smooth intimal lining in the common carotid artery. There is hard and calcified plaque noted in the bulb and the ostium of the internal carotid artery. Colorflow is normal. LEFT: There is smooth intimal lining in the common carotid artery. There is hard and calcified plaque noted in the bulb and the ostium of the internal carotid artery. Colorflow is normal. PRELIMINARY FINDINGS 1. <50% stenosis in the bulb and internal carotid artery, bilaterally. 2. Antegrade vertebral artery flow noted, bilaterally. PHYSICIAN INTERPRETATION 1. Bilateral carotid artery examination demonstrates plaque in the bulbs and internal carotid arteries without hemodynamically significant stenosis. (<50%) Carotid Findings: Right Left Verteb.Flw Antegrade Antegrade Subclavian Triphasic Triphasic MEASUREMENTS: DOPPLER Right CCA Dist CCA Dist PSV 48.1 cm/s CCA Dist EDV 11.6 cm/s Right CCA Mid CCA Mid PSV 69 cm/s CCA Mid EDV 14.2 cm/s Right CCA Prox CCA Prox PSV 70.3 cm/s CCA Prox EDV 11.6 cm/s Right ECA Prox ECA Prox PSV 54.6 cm/s ECA Prox EDV 0 cm/s Right ICA Dist ICA Dist PSV 76.6 cm/s ICA Dist EDV 24.3 cm/s Right ICA Mid ICA Mid PSV 111 cm/s ICA Mid EDV 32.1 cm/s Right ICA Prox ICA Prox PSV 47 cm/s ICA Prox EDV 17.4 cm/s Right Vertebral Vertebral PSV 56.8 cm/s Vertebral EDV 15.4 cm/s Left CCA Dist CCA Dist PSV 43.1 cm/s CCA Dist EDV 7.91 cm/s Left CCA Mid CCA Mid PSV 68.2 cm/s CCA Mid EDV 13.2 cm/s Left CCA Prox CCA Prox PSV 112 cm/s CCA Prox EDV 19.1 cm/s Left ECA Prox ECA Prox PSV 61.8 cm/s ECA Prox EDV 0 cm/s Left ICA Dist ICA Dist PSV 58.4 cm/s ICA Dist EDV 16 cm/s Left ICA Mid ICA Mid PSV 62.4 cm/s ICA Mid EDV 20 cm/s Left ICA Prox ICA Prox PSV 44.3 cm/s ICA Prox EDV 14.4 cm/s Left Vertebral Vertebral PSV 48.3 cm/s Vertebral EDV 10.7 cm/s Right ICA/CCA Ratio ICA/CCA PSV 0.681 Left ICA/CCA Ratio ICA/CCA PSV 0.65 Signed 04/01/2017 04:10 PM Tucker Kc MD CT Head External Study (03/25/2017 5:50 PM) Specimen Performing Laboratory [facility] [address] [place] [address] Narrative This exam was not acquired at a [facility] facility and has not been interpreted by a [facility] Provider.The exam was imported into our imaging system for comparisons purposes. CT Abd/Pelvic External Study (03/24/2017 3:30 PM) Specimen Performing Laboratory [facility] [address] [place] [address] Narrative This exam was not acquired at a [facility] facility and has not been interpreted by a [facility] Provider.The exam was imported into our imaging system for comparisons purposes. after 07/04/2016 Insurance Payer Benefit Plan / Group Subscriber ID Type Phone Address [employer] xxxxxxxxx O W [phone] [place] [address]
[2017-07-05 08:05] LABS: Absolute Lymphocytes (CBC) 4.6 K/uL (0.7-4.9); Absolute Monocytes 0.7 K/uL (0.1-1.3); Absolute Neutrophil 3.5 K/uL (1.8-8.0); Basophils % 0.6 % (0-1.3); Eosinophils % 1.9 % (0-4.4); Hematocrit 32.7 % (36.0-45.0); Lymphocytes % 51.3 % (15.3-44.8); MCH 28.5 pg (27.0-35.0); MCV 86.1 fL (80-100); MPV 7.2 fL (7.6-11.3); Monocytes % 7.5 % (3.3-12.3); RBC Red Blood Cell Count 3.79 M/uL (3.86-4.86)
[2017-07-05 08:12] LABS: Protime INR 0.9
[2017-07-05 08:23] LABS: Potassium 3.3 mEq/L (3.6-5.0)
[2017-07-05 08:29] LABS: Albumin 2.7 g/dL (3.2-5.5); Bilirubin Direct 0.1 mg/dL (0-0.2); Bilirubin Total 0.8 mg/dL (0.3-1.2); Protein, Total 5.9 g/dL (6.0-8.3)
--- NOTE | 2017-07-05 09:23 | RAD REPORT ---
EXAM DESCRIPTION: RAD - Chest Single View - 07/05/2017 8:29 am CLINICAL HISTORY: Weakness, rectal bleeding, shortness of breath COMPARISON: May 19, 2017 TECHNIQUE: AP portable chest image was obtained 0815 hours . FINDINGS: Fibrotic lung changes are present with a few scattered granulomas. No superimposed failure , infiltrate or mass. Lung parenchymal pattern matches the recent comparison. Trachea is midline. Heart and vasculature are normal. No measurable pleural effusion and no pneumotho rax. No gross bony abnormality seen. No acute aortic findings suspected. IMPRESSION: No acute cardiopulmonary process. No significant interval change.
[2017-07-05 09:56] LABS: Thyroid Stimulating Hormone 2.9 uIU/mL (0.34-5.60)
[2017-07-05 10:07] LABS: Magnesium 1.8 mg/dL (1.8-2.5)
--- NOTE | 2017-07-05 10:13 | RAD REPORT ---
EXAM DESCRIPTION: CTAbdomen Pelvis W Contrast - 07/05/2017 9:41 am CLINICAL HISTORY: Abdominal pain. Bloody stools. COMPARISON: 03/24/2017, 12/22/2012 TECHNIQUE: Biphasic CT imaging of the abdomen and pelvis was performed with 100 ml non-ionic IV cont rast. All CT scans are performed using dose optimization technique as appropriate and may include automated exposure control or mA/KV adjustment according to patient size. FINDINGS: The lung bases are clear.Evidence of a hiatal hernia repair noted. The liver demonstrates no focal mass or significant biliary dilatation. Cholecystectomy clips are see n. The spleen, pancreas, adrenal glands and kidneys show no acute process. No bowel obstruction, free air, free fluid or abscess. Prominent sigmoid diverticulosis is present wi thout evidence of diverticulitis. Irregular asymmetric wall thickening of the rectum is seen with the right lateral rectal wall thickened to 16 mm. Mild fat for surrounding fat stranding is seen. No suspicious bony findings. IMPRESSION: Asymmetric irregular rectal wall thickening as detailed is suspicious for a rectal carci noma. Advise direct physical exam assessment/visualization for further evaluation. Prominent sigmoid diverticulosis coli is present without diverticulitis.
[2017-07-05] MEDS ORDERED: METRONIDAZOLE 500mg IVPB 500 MG/100 ML BAG IV ONE (10:47)
[2017-07-05] MEDS ORDERED: CIPROFLOXACIN 400mg IV 400 MG/200 ML BAG IV ONE (10:47)
--- NOTE | 2017-07-05 10:48 | EDPHYS ---
Physician Documentation [facility] Name: Elva Jenkins Age: 87 yrs Sex: Female : 1930 Arrival Date: 07/05/2017 Time: 07:17 Bed 6 Private MD: ED Physician Kyle Darby HPI: 07/05 09:00 This 87 yrs old Female presents to ER via EMS with complaints of Rectal pm1 Bleeding. 09:00 The patient presents to the emergency department with bleeding from the rectum/anus, pm1 that is mild. Onset: The symptoms/episode began/occurred 4 week(s) ago. Context: the patient has a known history of hemorrhoids. Modifying factors: The symptoms are alleviated by nothing, The symptoms are aggravated by bowel movement. Associate signs and symptoms: Pertinent positives: watery diarrhea or small soft stool for the past 4 weeks. bowel movment with bright red blood present on it with each BM. No clots or dark/tarry stool, Pertinent negatives: constipation, dysuria, fever, vomiting No current abdominal pain on ER presentation but has had some mild abdominal pain throughout the past 4 weeks. Had some lower abdominal pain this AM that has resolved. 09:00 Associate signs and symptoms: Pertinent negatives: chest pain, shortness of breath pm1 greater than her COPD baseline, dizziness. Historical: - Allergies: 07:21 Asacol; tw2 07:21 Humira; tw 07:21 Methotrexate; tw 07:21 Orencia; tw 07:21 Phenergan; tw 07:21 promethazine HCl; tw 07:21 Rituxan; 07:21 Sulfazine; 07:21 Demerol; tw2 - Home Meds: 07:21 Symbicort 160-4.5 mcg/actuation inhalation HFAA 2 puffs 2 times per day [Active]; tw2 Spiriva with HandiHaler 18 mcg inhalation CpDv 1 cap once daily [Active]; prednisone 5 mg Oral tab 1 tab 2 times per day [Active]; Plavix 75 mg Oral tab 1 tab once daily [Active]; paroxetine HCl 40 mg Oral tab 1 tab once daily [Active]; meloxicam 7.5 mg Oral tab 1 tab BID [Active]; lisinopril 10 mg Oral tab 1 tab once daily [Active]; benzonatate 200 mg Oral cap 1 cap 3 times per day [Active]; atorvastatin 40 mg Oral tab 1 tab once daily [Active]; alprazolam 0.25 mg Oral tab 1 tab BID PRN [Active]; - PMHx: 07:21 Anxiety; Arthritis; COPD; Hypothyroidism; tw2 - Immunization history:: Adult Immunizations up to date. - Social history:: Smoking status: Patient/guardian denies using tobacco. ROS: 09:00 Constitutional: Negative for fever, chills, and weight loss, Eyes: Negative for injury, pm1 pain, redness, and discharge, ENT: Negative for injury, pain, and discharge, Neck: Negative for injury, pain, and swelling, Cardiovascular: Negative for chest pain, palpitations, and edema, Respiratory: Negative for shortness of breath, cough, wheezing, and pleuritic chest pain. 09:00 Back: Negative for injury and pain, : Negative for injury, bleeding, discharge, and swelling, MS/Extremity: Negative for injury and deformity, Skin: Negative for injury, rash, and discoloration, Neuro: Negative for headache, weakness, numbness, tingling, and seizure. 09:00 Abdomen/GI: Positive for rectal bleeding, of the right lower quadrant and left lower quadrant, On and off abdominal pain, Negative for nausea and vomiting, black/tarry stool, rectal pain. Exam: 09:00 Constitutional: This is a well developed, well nourished patient who is awake, alert, pm1 and in no acute distress. Head/Face: Normocephalic, atraumatic. Eyes: Pupils equal round and reactive to light, extra-ocular motions intact. Lids and lashes normal. Conjunctiva and sclera are non-icteric and not injected. Cornea within normal limits. Periorbital areas with no swelling, redness, or edema. ENT: Nares patent. No nasal discharge, no septal abnormalities noted. Tympanic membranes are normal and external auditory canals are clear. Oropharynx with no redness, swelling, or masses, exudates, or evidence of obstruction, uvula midline. Mucous membranes moist. Neck: Trachea midline, no thyromegaly or masses palpated, and no cervical lymphadenopathy. Supple, full range of motion without nuchal rigidity, or vertebral point tenderness. No Meningismus. Chest/axilla: Normal chest wall appearance and motion. Nontender with no deformity. No lesions are appreciated. Cardiovascular: Regular rate and rhythm with a normal S1 and S2. No gallops, murmurs, or rubs. No pulse deficits. Respiratory: Lungs have equal breath sounds bilaterally, clear to auscultation and percussion. No rales, rhonchi or wheezes noted. No increased work of breathing, no retractions or nasal flaring. 09:00 Back: No spinal tenderness. No costovertebral tenderness. Full range of motion. Skin: Warm, dry with normal turgor. Normal color with no rashes, no lesions, and no evidence of cellulitis. Bruising present to lower extremities 09:00 Cardiovascular: Edema: pedal edema, 2+. 09:00 Abdomen/GI: Inspection: abdomen appears normal, Bowel sounds: normal, Palpation: abdomen is soft and non-tender, Rectal exam: hemorrhoid(s), with inflammation, without thrombosis, without pain, prolapsed internal. Scant bleeding from multiple hemorrhoids. Tissue appears friable with one area with darkened discoloration. No tenderness with palpation to hemorrhoids and no thrombosis present, tenderness, is not appreciated, Ruth. 09:00 Neuro: Orientation: is normal, Mentation: is normal, Motor: moves all fours. Vital Signs: 07:19 BP 141 / 77; Pulse 90; Resp 17; Temp 98.2(O); Pulse Ox 97% on R/A; Weight 53.98 kg (R); tw2 Height 4 ft. 11 in. (149.86 cm) (R); Pain 0/10; 08:07 BP 161 / 83; Pulse 75; Resp 17; Pulse Ox 100% on R/A; tw2 08:58 BP 161 / 77; Pulse 82; Resp 17; Pulse Ox 99% on R/A; tw2 09:45 BP 109 / 78; Pulse 80; Resp 16; Pulse Ox 100% on R/A; Pain 0/10; hb 10:33 BP 138 / 82; Pulse 88; Resp 15; Pulse Ox 100% on R/A; Pain 0/10; hb 12:07 BP 156 / 82; Pulse 80; Resp 16; Pulse Ox 96% on R/A; aj 07:19 Body Mass Index 24.03 (53.98 kg, 149.86 cm) tw2 MDM: 07:27 Patient medically screened. pm1 10:30 Counseling: I had a detailed discussion with the patient and/or guardian regarding: the pm1 historical points, exam findings, and any diagnostic results supporting the discharge/admit diagnosis, lab results, radiology results. 10:35 Physician consultation: Britt Topete MD was contacted at 10:34, regarding consult, pm1 patient's condition, and will see patient Discussed the case with Dr. Topete's nurse practitioner, Ivan. Ivan discussed the case with Dr. Topete and they will see the patient in the hospital. Would like Cipro and Flagyl for antibiotic therapy. 10:39 Data reviewed: vital signs. Data interpreted: Pulse oximetry: on room air is 100 %. pm1 Interpretation: normal. 10:40 Physician consultation: Bharti Pollock MD was called at 10:40, was contacted at 10:40, pm1 regarding admission, patient's condition, and will see patient would like consultation with Dr. Topete. 07/05 07:31 Order name: Type And Screen; Complete Time: 08:43 pm07/05 07:31 Order name: Basic Metabolic Panel; Complete Time: 08:41 pm07/05 07:31 Order name: CBC with Diff; Complete Time: 08:11 pm07/05 07:31 Order name: Hepatic Function; Complete Time: 08:41 pm07/05 07:31 Order name: Lipase; Complete Time: 08:41 pm07/05 07:31 Order name: Ptt, Activated; Complete Time: 08:13 pm07/05 07:31 Order name: PT-INR; Complete Time: 08:13 pm07/05 08:12 Order name: BNP; Complete Time: 09:59 pm07/05 08:12 Order name: Ckmb; Complete Time: 10:08 pm07/05 08:12 Order name: CPK; Complete Time: 10:08 pm07/05 08:12 Order name: Magnesium; Complete Time: 10:08 pm07/05 08:12 Order name: Troponin (emerg Dept Use Only); Complete Time: 09:26 pm1 07/05 08:12 Order name: TSH; Complete Time: 10:08 pm07/05 08:26 Order name: ABO/RH no charge; Complete Time: 08:41 EDMS 07/05 07:31 Order name: IV Saline Lock; Complete Time: 07:52 pm07/05 07:31 Order name: Labs collected and sent; Complete Time: 07:52 pm07/05 07:31 Order name: Urine Dipstick-Ancillary (obtain specimen); Complete Time: 12:01 pm07/05 07:33 Order name: CT Abd/Pelvis - W/Contrast; Complete Time: 10:18 pm07/05 08:12 Order name: XRAY Chest (1 view); Complete Time: 09:26 pm07/05 08:12 Order name: EKG; Complete Time: 08:12 pm07/05 08:12 Order name: Cardiac monitoring; Complete Time: 08:13 pm07/05 08:12 Order name: EKG - Nurse/Tech; Complete Time: 08:13 pm07/05 08:12 Order name: O2 Per Protocol; Complete Time: 08:13 pm07/05 08:12 Order name: O2 Sat Monitoring; Complete Time: 08:13 pm07/05 12:02 Order name: Urine Dipstick--Ancillary (enter results) mw2 Administered Medications: 11:06 Drug: Ciprofloxacin 400 mg Volume: 200 ml; Route: IVPB; Infused Over: 60 mins; Site: hb right antecubital; 12:01 Follow up: Response: No adverse reaction; IV Status: Completed infusion hb 11:06 Drug: Flagyl 500 mg Volume: 100 ml; Route: IVPB; Rate: 200 ml/hr; Infused Over: 30 hb mins; Site: right antecubital; 12:01 Follow up: Response: No adverse reaction; IV Status: Completed infusion hb 12:01 Drug: NS 0.9% 1000 ml Route: IV; Rate: 100 ml/hr; Site: right antecubital; hb 12:01 Follow up: IV Status: Infusion continued upon admission hb 12:01 Drug: Potassium Chloride 10 mEq Route: IV; Rate: calculated rate; Site: right hb antecubital; 12:01 Follow up: IV Status: Infusion continued upon admission hb Disposition: 17:28 Co-signature as Attending Physician, Kyle Darby MD. rn Disposition: 07/05/17 10:47 Hospitalization ordered by Bharti Pollock for Inpatient Admission. 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 - Bed requested for Telemetry/MedSurg (Inpatient). - Status is Inpatient Admission. hb - Condition is Stable. - Problem is new. - Symptoms have improved. UTI on Admission? No Signatures: Dispatcher [employer] EDKyle Crocker MD MD rn Marinas, Patrick, ASSISTANT PROFESSOR OF BUSINESS ASSISTANT PROFESSOR OF BUSINESS pm1 Jennifer Haley RN RN Ping Evans RN RN 2 Joaquim Francisco 2
--- NOTE | 2017-07-05 10:48 | ER ---
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 Topete, but feels too weak, has had 3 loose, bloody BM's since 5 am this morning, she had hiatal hernia repaired Apr 12, vs stable. Transition of care: patient was received from another setting of care (long-term care facility), [facility]. Onset of symptoms was July 05, 2017. Initial Sepsis Screen: Does the patient meet any 2 criteria? No. Patient's initial sepsis screen is negative. Does the patient have a suspected source of infection? No. Patient's initial sepsis screen is negative. Care prior to arrival: None. 07:17 Method Of Arrival: EMS: [facility] tw 07:17 Acuity: [place] 3 tw2 Historical: - Allergies: 07:21 Asacol; tw2 07:21 Humira; tw2 07:21 Methotrexate; tw 07:21 Orencia; tw2 07:21 Phenergan; tw 07:21 promethazine HCl; tw2 07:21 Rituxan; tw2 07:21 Sulfazine; tw2 07:21 Demerol; tw2 - Home Meds: 07:21 Symbicort 160-4.5 mcg/actuation inhalation HFAA 2 puffs 2 times per day [Active]; tw2 Spiriva with HandiHaler 18 mcg inhalation CpDv 1 cap once daily [Active]; prednisone 5 mg Oral tab 1 tab 2 times per day [Active]; Plavix 75 mg Oral tab 1 tab once daily [Active]; paroxetine HCl 40 mg Oral tab 1 tab once daily [Active]; meloxicam 7.5 mg Oral tab 1 tab BID [Active]; lisinopril 10 mg Oral tab 1 tab once daily [Active]; benzonatate 200 mg Oral cap 1 cap 3 times per day [Active]; atorvastatin 40 mg Oral tab 1 tab once daily [Active]; alprazolam 0.25 mg Oral tab 1 tab BID PRN [Active]; - PMHx: 07:21 Anxiety; Arthritis; COPD; Hypothyroidism; tw2 - Immunization history:: Adult Immunizations up to date. - Social history:: Smoking status: Patient/guardian denies using tobacco. Screenin:22 Abuse screen: Denies threats or abuse. Nutritional screening: No deficits noted. tw2 Tuberculosis screening: No symptoms or risk factors identified. Fall Risk None identified. Assessment: 07:46 General: Appears in no apparent distress. Behavior is calm, cooperative, appropriate tw2 for age. Pain: Denies pain. Neuro: Level of Consciousness is awake, alert, obeys commands, Oriented to person, place, time, situation. Cardiovascular: Denies chest pain, shortness of breath, Heart tones S1 S2 Capillary refill < 3 seconds. Respiratory: Airway is patent Respiratory effort is even, unlabored, Respiratory pattern is regular, symmetrical, Breath sounds are clear bilaterally. GI: Reports rectal bleeding. GI: Abdomen is flat, Bowel sounds present X 4 quads. : No signs and/or symptoms were reported regarding the genitourinary system. EENT: No signs and/or symptoms were reported regarding the EENT system. Derm: No signs and/or symptoms reported regarding the dermatologic system. Skin is fragile, is thin. Musculoskeletal: Range of motion: intact in all extremities. 08:07 Reassessment: Patient appears in no apparent distress at this time. No changes from tw2 previously documented assessment. Patient and/or family updated on plan of care and expected duration. Pain level reassessed. Patient is alert, oriented x 3, equal unlabored respirations, skin warm/dry/pink. 08:58 Reassessment: Patient appears in no apparent distress at this time. No changes from tw2 previously documented assessment. Patient and/or family updated on plan of care and expected duration. Pain level reassessed. Patient is alert, oriented x 3, equal unlabored respirations, skin warm/dry/pink. 09:45 Reassessment: Patient appears in no apparent distress at this time. Patient and/or hb family updated on plan of care and expected duration. Pain level reassessed. Patient is alert, oriented x 3, equal unlabored respirations, skin warm/dry/pink. Patient denies pain at this time. 10:45 Reassessment: Patient appears in no apparent distress at this time. No changes from hb previously documented assessment. Patient and/or family updated on plan of care and expected duration. Pain level reassessed. Patient is alert, oriented x 3, equal unlabored respirations, skin warm/dry/pink. 11:45 Reassessment: Patient appears in no apparent distress at this time. No changes from hb previously documented assessment. Patient and/or family updated on plan of care and expected duration. Pain level reassessed. Patient is alert, oriented x 3, equal unlabored respirations, skin warm/dry/pink. 12:22 Reassessment: Patient appears in no apparent distress at this time. Patient and/or hb family updated on plan of care and expected duration. Pain level reassessed. Patient is alert, oriented x 3, equal unlabored respirations, skin warm/dry/pink. Patient denies pain at this time. Vital Signs: 07:19 BP 141 / 77; Pulse 90; Resp 17; Temp 98.2(O); Pulse Ox 97% on R/A; Weight 53.98 kg (R); tw2 Height 4 ft. 11 in. (149.86 cm) (R); Pain 0/10; 08:07 BP 161 / 83; Pulse 75; Resp 17; Pulse Ox 100% on R/A; tw2 08:58 BP 161 / 77; Pulse 82; Resp 17; Pulse Ox 99% on R/A; tw2 09:45 BP 109 / 78; Pulse 80; Resp 16; Pulse Ox 100% on R/A; Pain 0/10; hb 10:33 BP 138 / 82; Pulse 88; Resp 15; Pulse Ox 100% on R/A; Pain 0/10; hb 12:07 BP 156 / 82; Pulse 80; Resp 16; Pulse Ox 96% on R/A; aj 07:19 Body Mass Index 24.03 (53.98 kg, 149.86 cm) tw2 ED Course: 07:17 Patient arrived in ED. tw2 07:18 Mt Watkins NP is PHCP. pm1 07:18 Kyle Darby MD is Attending Physician. pm1 07:19 Triage completed. tw2 07:22 Arm band placed on. tw2 07:22 Bed in low position. Side rails up X2. highway truck driver on. Pulse ox on. NIBP on. tw2 07:22 Inserted saline lock: 20 gauge in right antecubital area, using aseptic technique. tw2 ,using aseptic technique. per GUME Rodriguez Blood collected. 07:35 Served as a flat ironer during rectal exam. tw2 07:51 Ping Evans RN is Primary Nurse. tw2 08:25 X-ray completed. Portable x-ray completed in exam room. Patient tolerated procedure jb2 well. 08:26 XRAY Chest (1 view) In Process Unspecified. EDMS 09:40 CT completed. Patient tolerated procedure well. Patient moved to CT via stretcher. jg1 Patient moved back from CT. 09:42 CT Abd/Pelvis - W/Contrast In Process Unspecified. EDMS 09:45 Report given to GUME Rodriguez. tw2 09:46 EKG done, by industrial hygiene technician. reviewed by Mt Watkins NP. at1 10:41 Bharti Pollock MD is Hospitalizing Provider. pm1 11:25 Primary Nurse role handed off by Ping Evans RN hb 11:25 Jennifer Haley RN is Primary Nurse. hb 12:22 Patient admitted, IV remains in place. hb Administered Medications: 11:06 Drug: Ciprofloxacin 400 mg Volume: 200 ml; Route: IVPB; Infused Over: 60 mins; Site: hb right antecubital; 12:01 Follow up: Response: No adverse reaction; IV Status: Completed infusion hb 11:06 Drug: Flagyl 500 mg Volume: 100 ml; Route: IVPB; Rate: 200 ml/hr; Infused Over: 30 hb mins; Site: right antecubital; 12:01 Follow up: Response: No adverse reaction; IV Status: Completed infusion hb 12:01 Drug: NS 0.9% 1000 ml Route: IV; Rate: 100 ml/hr; Site: right antecubital; hb 12:01 Follow up: IV Status: Infusion continued upon admission hb 12:01 Drug: Potassium Chloride 10 mEq Route: IV; Rate: calculated rate; Site: right hb antecubital; 12:01 Follow up: IV Status: Infusion continued upon admission hb Outcome: 10:47 Decision to Hospitalize by Provider. pm1 12:22 Admitted to Med/surg accompanied by tech, via stretcher, on monitor, Report called to shannon Marshall RN 12:22 Condition: stable 12:22 Instructed on the need for admit, Demonstrated understanding of instructions. 12:23 Patient left the ED. hb Signatures: Dispatcher [employer] EDAshely Yanez, RN RN Peter Garcia jb2 Juanita Madridg1 Ashely shepard, distribution systems serviceperson EKG Tat1 Mt Watkins, GLASS SANDER BELT GLASS SANDER BELT pm1 Jennifer Haley RN RN hb Wise, Tara, RN RN tw2 Corrections: (The following items were deleted from the chart) 10:20 09:45 Reassessment: Patient appears in no apparent distress at this time. Patient hb and/or family updated on plan of care and expected duration. Pain level reassessed. Patient is alert, oriented x 3, equal unlabored respirations, skin warm/dry/pink. Patient denies pain at this time. Patient states feeling better. hb
--- NOTE | 2017-07-05 11:25 | EKG ---
Test Date: 2017-07-05 Test Time: 08:21:42 Allergist/Pediatric Pulmonologist: BRENDA MEASUREMENT RESULTS: Intervals: Rate: 78 IA: 128 QRSD: 66 QT: 374 QTc: 426 [place]: P: 69 IA: 128 QRS: 34 T: 53 INTERPRETIVE STATEMENTS: Normal sinus rhythm with sinus arrhythmia Normal ECG Compared to ECG 05/19/2017 11:08:23 No significant changes Electronically Signed On 07-05-17 11:23:50 CDT by Kel Ro
[2017-07-05] MEDS ORDERED: KCL 20 MEQ/100 mL IVPB 20 MEQ/100 ML BAG IV ONE (12:12)
[2017-07-05] MEDS ORDERED: NA CHLORIDE 0.9% 1,000 ML ONE (12:12)
[2017-07-05 13:06] LABS: Urine Blood 2+ (NEG); Urine Glucose NEGATIVE (NEG); Urine Protein NEGATIVE (NEG); Urine Specific Gravity 1.015 (1.005-1.030); Urine pH 7.5 (5.0-7.0)
[2017-07-05 13:38] VITALS: BMI 24.0
[2017-07-05] MEDS: NA CHLORIDE 0.9% 1,000 ML IV SCH ×2 (13:52→21:59)
[2017-07-05] MEDS ORDERED: ALBUTEROL INHALER 60 PUFF/8 GM IH PRN (15:26)
[2017-07-05] MEDS: CODEINE 30MG/APAP 300MG TAB PO PRN ×2 (15:36→22:20)
[2017-07-05] MEDS ORDERED: TIOTROPIUM (SPIRIVA) 5 SPRAYS/INHALER IH SCH (15:45)
[2017-07-05] MEDS: METRONIDAZOLE 500mg IVPB 500 MG/100 ML BAG IV SCH (16:42)
[2017-07-05] MEDS ORDERED: DOCUSATE NA 100 MG CAP PO PRN (20:53)
[2017-07-05] MEDS ORDERED: FUROSEMIDE 20 MG TABLET PO PRN (20:53)
[2017-07-05] MEDS ORDERED: BENZONATATE 100 MG CAP PO PRN (20:53)
[2017-07-05] MEDS ORDERED: MELATONIN PO SCH (21:00)
[2017-07-05] MEDS ORDERED: HOME MED 1 EA UNK (Budesonide/Formoterol Fumarate [Symbicort 160-4.5 Mcg Inhaler] 2 PUFF) IH SCH (21:00)
[2017-07-05] MEDS ORDERED: PYRIDOXINE HCL PO SCH (21:00)
[2017-07-05] MEDS: CIPROFLOXACIN 400mg IV 400 MG/200 ML BAG IV SCH (21:57)
[2017-07-05] MEDS: FAMOTIDINE 20 MG TAB PO SCH (21:57)
[2017-07-05] MEDS: ONDANSETRON 4 MG/2 ML VIAL IV PRN (21:59)
[2017-07-05] MEDS: predniSONE 5 MG TAB PO SCH (22:20)
[2017-07-05] MEDS: ALPRAZOLAM 0.25 MG TABLET PO SCH (23:45)
[2017-07-06] MEDS: METRONIDAZOLE 500mg IVPB 500 MG/100 ML BAG IV SCH ×3 (01:07→16:57)
[2017-07-06] MEDS: CODEINE 30MG/APAP 300MG TAB PO PRN ×2 (04:38→11:33)
--- NOTE | 2017-07-06 05:25 | HP ---
Date of Admission: 07/05/2017 Chief Complaint: Rectal pain and bleeding. History Of Present Illness: This is an 87-year-old female patient, who started to have some with dis comfort in her rectum region and some bright red blood per rectum, off and on in last 2 weeks or so a nd problem got worse, so she came into the emergency room today. After she was evaluated, she was ad mitted to the hospital. The patient has occasional constipation and occasional diarrhea, this is not john new. Denies any abdominal pain. No nausea, no vomiting. She has seen Dr. Topete recently for th is and had an EGD done, but has not had a colonoscopy done yet. Denies any fever or chills. Medications: List reviewed. Review of Systems: GI: As mentioned above. All other systems reviewed and negative. Allergies: SHE IS ALLERGIC TO PHENERGAN CAUSING HALLUCINATION; HUMIRA, CAUSING SWELLING OF FACE; ORE NCIA, CAUSING JOINT PAIN; ASACOL, CAUSING HIVES AND SORE THROAT; RITUXAN, CAUSING LEG SWELLING; METHO TREXATE, CAUSING SHORTNESS OF BREATH; AND SULFA CAUSING HEADACHE. Past Surgical History: Significant for hysterectomy, appendectomy, cholecystectomy, and cataract estella james. Family History: Parents of old age at 99 and 95 years and sister had stroke and hypertension. Social History: Negative for smoking or alcohol use. Past Medical History: Lymphedema, hypothyroidism, hypertension, COPD, chronic steroid therapy, rheum atoid arthritis, and leg edema. Physical Examination: Vital Signs: When I saw her last, temperature 97.9, pulse 85, respiratory rate 17, blood pressure 15 3/84, height 4 feet 11 inches, and weight 119 pounds. General: Awake, alert, oriented, not in distress. HEENT: Head atraumatic, normocephalic. Conjunctivae nonerythematous. Sclerae white. Mouth, no thr ush or edema noted. Ears/Nose, no mass, lesion, discharge noted. Neck: Supple. No JVD, lymph nodes, bruit, thyromegaly noted. Lungs: Bilateral good equal air entry. Clear to auscultation. No rhonchi. No rales. Heart: Normal heart sounds, no murmur or gallop. Abdomen: Soft, bowel sounds normal. No guarding, rigidity, tenderness, mass, hepatosplenomegaly, dis tention, or bruit noted. Extremities: No leg edema. No calf tenderness. Skin: No rash, ulcer, cellulitis. Lymphatics: No lymph node enlargement in neck, supraclavicular, infraclavicular region. Neuro: No focal neurological deficit. Chest: Unremarkable. External Genitalia: Deferred. Rectal: The patient has a large hemorrhoid that is visible outside anal opening and there is another mass type of area, I am not sure whether this is thrombosed hemorrhoid or this is actually growth. Rectal exam was limited to inspection only. There was no active discharge or bleeding noted. Laboratory Data: White count 9, hemoglobin 10.8, platelets 327, sodium 137, potassium 3.3, chloride 105, bicarb 27, BUN 9, creatinine 0.74, and glucose 97. Liver function tests unremarkable. Troponin less than 0.03. TSH 2.90. Lipase 41. Diagnostic Data: EKG, normal sinus rhythm, no acute ST-T changes. Urinalysis, 2+ blood, otherwise, negative. Chest x-ray, no acute intrathoracic changes. CAT scan of the abdomen and pelvis with cont rast showing asymmetric irregular rectal wall thickening, suspicious for rectal carcinoma, prominent sigmoid diverticulosis without diverticulitis. Impression: 1.Rectal bleeding. 2.Rule out rectal carcinoma. 3.Diverticulosis. 4.Anemia secondary to gastrointestinal blood loss. 5.Chronic obstructive pulmonary disease. 6.Hypertension. 7.Chronic steroid therapy. 8.Rheumatoid arthritis. 9.Hypothyroidism. 10.Lymphedema. Plan: Admit the patient to hospital for further evaluation and management of this problem. The anayeli ent is appropriate for inpatient and is expected to spend 2 midnights in hospital. CAT scan raises p ossibility of rectal carcinoma. The patient will benefit from direct endoscopic evaluation and appro priate biopsy to rule out any underlying cancer problem. One has to keep in mind about other possibi lity like whether this is thrombosed hemorrhoid what we see on examination and what we see on CAT sca n if it is inflammatory/infectious etiology. Considering that we will give empiric antibiotics. Edmundo rodriguez volunteer assistant Dr. Topete. Home medications will be continued per order. I will see her opoja rrow for followup. Details on plan of treatment discussed with the patient. ARNOL/MODL Voice ID: [id number]
[2017-07-06 05:27] LABS: Absolute Lymphocytes (CBC) 2.2 K/uL (0.7-4.9); Absolute Monocytes 0.3 K/uL (0.1-1.3); Absolute Neutrophil 4.1 K/uL (1.8-8.0); Basophils % 0.5 % (0-1.3); Eosinophils % 0.2 % (0-4.4); Hematocrit 30.5 % (36.0-45.0); Lymphocytes % 32.7 % (15.3-44.8); MCH 27.9 pg (27.0-35.0); MCV 85.9 fL (80-100); Monocytes % 4.7 % (3.3-12.3); RBC Red Blood Cell Count 3.55 M/uL (3.86-4.86)
[2017-07-06] MEDS: LEVOTHYROXINE SOD 0.05 MG TABLET PO SCH (05:34)
[2017-07-06 05:53] LABS: Albumin 2.8 g/dL (3.2-5.5); Bilirubin Direct 0.2 mg/dL (0-0.2); Potassium 3.5 mEq/L (3.6-5.0); Protein, Total 5.1 g/dL (6.0-8.3)
[2017-07-06] MEDS: predniSONE 5 MG TAB PO SCH ×2 (09:00→21:38)
[2017-07-06] MEDS: [UNRECOGNIZED DRUG - OTHER] PO SCH (09:00)
[2017-07-06] MEDS: ALPRAZOLAM 0.25 MG TABLET PO SCH (09:00)
[2017-07-06] MEDS: DEXTROSE PO SCH (09:00)
[2017-07-06] MEDS: CIPROFLOXACIN 400mg IV 400 MG/200 ML BAG IV SCH ×2 (09:01→21:41)
[2017-07-06] MEDS: NA CHLORIDE 0.9% 1,000 ML IV SCH ×2 (09:03→16:58)
[2017-07-06] MEDS: ATORVASTATIN 40 MG TAB PO SCH (11:33)
[2017-07-06] MEDS: ROFLUMILAST 500 MCG TABLET PO SCH (11:33)
[2017-07-06] MEDS: PARoxetine HCl 10 MG TAB PO SCH (11:34)
[2017-07-06] MEDS: FAMOTIDINE 20 MG TAB PO SCH (21:38)
[2017-07-06] MEDS: MELATONIN 3 MG TABLET PO SCH (21:38)
[2017-07-06] MEDS: ONDANSETRON 4 MG/2 ML VIAL IV PRN (22:44)
--- NOTE | 2017-07-06 23:53 | PN ---
Date of Progress Note: 07/06/2017 Subjective: The patient was seen this morning for followup. No new complaints or problems reported by the patient. No bowel movement since I saw her yesterday. No nausea. No vomiting. Objective: Vital Signs: Reviewed. HEENT: Unremarkable. Lungs: Clear to auscultation. Heart: Heart sounds are normal. Abdomen: Soft. Bowel sounds are normal. No guarding, rigidity, tenderness, or distention. Extremities: No leg edema. Laboratory Data: White count 6.6, hemoglobin 9.9, and platelets 282. Sodium 137, potassium 3.5, chl oride 105, bicarb 26, BUN 7, creatinine 0.64, and glucose 88. Impression: 1.Rectal bleeding. 2.Rectal mass. 3.Anemia. 4.Chronic obstructive pulmonary disease. 5.Chronic steroid therapy. 6.Rheumatoid arthritis. Plan: We will start her on clear liquid diet. GI consultation from Dr. Topete was requested. We will follow up with him. Physical Therapy was consulted. The patient is to ambulate. Continue current medical management including antibiotics per order. I will see her tomorrow for followup. ARNOL/MODL Voice ID: [id number] Report ID: [id number]
[2017-07-07] MEDS: METRONIDAZOLE 500mg IVPB 500 MG/100 ML BAG IV SCH ×3 (00:26→17:19)
[2017-07-07] MEDS: NA CHLORIDE 0.9% 1,000 ML IV SCH ×2 (04:08→14:57)
[2017-07-07] MEDS: LEVOTHYROXINE SOD 0.05 MG TABLET PO SCH (05:48)
[2017-07-07 08:02] LABS: Absolute Lymphocytes (CBC) 3.2 K/uL (0.7-4.9); Absolute Monocytes 0.6 K/uL (0.1-1.3); Absolute Neutrophil 3.4 K/uL (1.8-8.0); Basophils % 0.4 % (0-1.3); MCH 27.6 pg (27.0-35.0); MCV 85.9 fL (80-100); Monocytes % 7.7 % (3.3-12.3); RBC Red Blood Cell Count 3.84 M/uL (3.86-4.86)
[2017-07-07 08:10] LABS: Potassium 3.1 mEq/L (3.6-5.0)
[2017-07-07 08:11] LABS: Magnesium 1.7 mg/dL (1.8-2.5)
[2017-07-07] MEDS: CIPROFLOXACIN 400mg IV 400 MG/200 ML BAG IV SCH ×2 (08:59→22:21)
[2017-07-07] MEDS: DEXTROSE PO SCH (09:00)
[2017-07-07] MEDS: [UNRECOGNIZED DRUG - OTHER] PO SCH (09:00)
[2017-07-07] MEDS: ALPRAZOLAM 0.25 MG TABLET PO SCH (09:01)
[2017-07-07] MEDS: predniSONE 5 MG TAB PO SCH ×2 (09:01→22:22)
[2017-07-07] MEDS: ROFLUMILAST 500 MCG TABLET PO SCH (13:05)
[2017-07-07] MEDS: ATORVASTATIN 40 MG TAB PO SCH (13:06)
[2017-07-07] MEDS: PARoxetine HCl 10 MG TAB PO SCH (13:06)
[2017-07-07] MEDS ORDERED: MAGNESIUM SULFATE 1 gm IVPB 1 GM/100 ML BAG IV ONE (14:29)
[2017-07-07] MEDS: KCL 20 MEQ/100 mL IVPB 20 MEQ/100 ML BAG IV SCH ×2 (14:57→17:19)
[2017-07-07] MEDS: GOLYTELY 4000 ML PO SCH (17:19)
[2017-07-07] MEDS: MELATONIN 3 MG TABLET PO SCH (22:21)
[2017-07-07] MEDS: FAMOTIDINE 20 MG TAB PO SCH (22:22)
[2017-07-07] MEDS: ENSURE CLEAR 200 ML CAN PO SCH (22:22)
--- NOTE | 2017-07-08 00:03 | PN ---
Date of Progress Note: 07/07/2017 Subjective: The patient was seen this morning for followup. Lying in bed, not in distress. Continu es to have rectal pain and some bleeding as she had before. No new complaints or problems reported. Objective: Vital Signs: Reviewed. HEENT: Unremarkable. Lungs: Clear to auscultation. Heart: Sounds normal. Abdomen: Soft. Bowel sounds normal. No guarding, rigidity, tenderness, or distention. Extremities: No leg edema. Labs reviewed. Impression: 1.Rectal bleeding. 2.Rectal mass, rule out cancer. 3.Hypertension. 4.Chronic obstructive pulmonary disease. 5.Rheumatoid arthritis. 6.Chronic steroid therapy. Plan: We will continue current medications and antibiotics per order. Continue clear liquid diet. Follow up with environmental research scientist for further evaluation and management of this problem with the rect al mass and I will see her tomorrow for followup. ARNOL/MODL Voice ID: [id number] Report ID: [id number]
[2017-07-08] MEDS: METRONIDAZOLE 500mg IVPB 500 MG/100 ML BAG IV SCH ×3 (00:31→16:50)
[2017-07-08] MEDS: NA CHLORIDE 0.9% 1,000 ML IV SCH ×4 (00:31→21:12)
[2017-07-08] MEDS: LEVOTHYROXINE SOD 0.05 MG TABLET PO SCH (06:00)
[2017-07-08 06:13] LABS: Magnesium 1.8 mg/dL (1.8-2.5); Potassium 3.3 mEq/L (3.6-5.0)
[2017-07-08] MEDS ORDERED: MAGNESIUM SULFATE 1 gm IVPB 1 GM/100 ML BAG IV ONE (06:30)
[2017-07-08] MEDS: CIPROFLOXACIN 400mg IV 400 MG/200 ML BAG IV SCH ×2 (08:18→21:11)
[2017-07-08] MEDS: predniSONE 5 MG TAB PO SCH ×2 (08:19→21:11)
[2017-07-08] MEDS: ENSURE CLEAR 200 ML CAN PO SCH ×2 (08:19→21:12)
[2017-07-08] MEDS: ALPRAZOLAM 0.25 MG TABLET PO SCH (08:19)
[2017-07-08] MEDS: [UNRECOGNIZED DRUG - OTHER] PO SCH (08:20)
[2017-07-08] MEDS: DEXTROSE PO SCH (08:20)
[2017-07-08] MEDS: KCL 20 MEQ/100 mL IVPB 20 MEQ/100 ML BAG IV SCH ×2 (09:28→11:10)
[2017-07-08] MEDS ORDERED: Ringers Lactate 1,000 ML IV ONE (12:24)
[2017-07-08] MEDS ORDERED: HYDROCORTISONE SUC 100 MG INJ IV ONE ×2 (13:00→14:15)
[2017-07-08] MEDS ORDERED: PROPOFOL 200 MG/20 ML VIAL IV ONE (13:36)
[2017-07-08] MEDS ORDERED: LIDOCAINE 1% MPF 5 ML VIAL ONE (13:36)
[2017-07-08] MEDS: ATORVASTATIN 40 MG TAB PO SCH (14:52)
[2017-07-08] MEDS: PARoxetine HCl 10 MG TAB PO SCH (14:53)
[2017-07-08] MEDS: ROFLUMILAST 500 MCG TABLET PO SCH (14:53)
--- NOTE | 2017-07-08 15:34 | PN ---
Date of Progress Note: 07/08/2017 Subjective: The patient was seen this morning for followup. No new complaints or problems reported by patient. Lying in bed, not in any distress. Objective: Vital signs: Reviewed. HEENT: Examination unremarkable. Lungs: Clear to auscultation. Heart: Sounds normal. Abdomen: Soft. Bowel sounds normal. No guarding, rigidity, tenderness, or distention. Extremities: Bilateral leg edema present, unchanged. Laboratory Data: Sodium 138, potassium 3.3, chloride 108, bicarb 26, BUN 5, creatinine 0.66, glucose 91, magnesium 1.8. Impression: 1.Rectal bleeding. 2.Rectal mass. 3.Hypokalemia. 4.Leg edema. Plan: Dr. Topete will be performing colonoscopy today on the patient. Depending on the colonoscopy re sult, we will decide further plan of treatment. Replace electrolytes per protocol and continue curre nt antibiotics. ARNOL/MODL Voice ID: [id number] Report ID: [id number]
[2017-07-08] MEDS: GOLYTELY 4000 ML PO SCH (15:58)
--- NOTE | 2017-07-08 18:58 | CON ---
Date of Consultation: 07/08/2017 An 87-year-old female, [address] Pollock. Reason For Consultation: Lower GI bleeding, abnormal CT scan. History Of Present Illness: Ms. Jenkins is an 87-year-old female, who has been having increasing lowe r GI bleeding in the form of bright red blood. Blood is also mixed with the stool. She has been hav ing increasing episodes of this in last couple of months. She is also feeling somewhat weak. As a r esult, she came to the hospital. Denies any hematemesis. Denies any upper abdominal pain. Overall, she is having general discomfort. Denies any fever, chills. No weight loss or weight gain. No tra denice history. Past Medical History: Hypertension, diabetes. Past Surgical History: Not related to above. Family History: Denies any gastrointestinal malignancies in the family. Social History: No alcohol or tobacco. Allergies: REVIEWED IN THE CHART. Medications: Reviewed in the chart. Review of Systems: General: No weight loss, weight gain. Appetite is unchanged generalized discomfort. Pulmonary: No shortness of breath, cough, or expectoration. Cardiac: Occasional shortness of breath, especially upon exertion; however at this time, no orthopne a, dyspnea. GI: As elaborated above. Hepatologic: Denies any history of jaundice, hepatitis, any other liver afflictions. Musculoskeletal: Generalized weakness. Some joint pain stiffness. Dermatologic: fragile skin. Multiple bruises. Neuropsychiatric: None. Neuroendocrine: None. Physical Examination: General: Elderly female, no other acute distress noted. Vital Sign: Hemodynamic and respiratory profile within normal range. HEENT: Atraumatic, normocephalic. No temporal wasting. No facial wasting. No icterus. Some pallo r. Trachea central in position. Chest: Clear to auscultation and percussion Cardiovascular: S1, S2 is regular. Abdomen: Soft, nontender, nondistended. Excellent bowel sounds present in all quadrants. No hepato megaly. No splenomegaly. No ascites. No succussion splash. Dermatologic: Multiple bruises especially in the upper extremities and lower extremities. No pittin g edema noted. Dermatologic normal other than loss of subcutaneous pad of fat. Diagnostic Data: Reviewed and analyzed. CT scan discussed with the patient. Hemoglobin and hematoc rit 10 and 32. Impression, Plan, And Recommendation: Ms. Jenkins is an 87-year-old female with anemia, lower gastroi ntestinal bleeding. CT scan is abnormal. Differential consideration in this case will be anorectal neoplasia; however, other causes cannot be also ruled out. Colitis is another possibility. Best way to address her condition is to admit her to the hospital, follow hemoglobin and hematocrit, transfuse as needed. She may benefit from antibiotic, although I am not sure. IV fluid and careful hydration. Definitive way to address this will be a lower GI endoscopy. I have discussed with the patient and her family regarding the indications, contraindications, possib le complications, alternatives of above including, but not limited to the possibility of bleeding, pe rforation, tear, infection, sepsis, need for surgery, need for blood transfusion, anesthesia related problem, and rare fatality. She has good understanding. ESHA/MAGDA Voice ID: [id number] Report ID: [id number]
--- NOTE | 2017-07-08 19:04 | OP ---
Date of Procedure: 07/08/2017 Surgeon: Britt Topete MD Procedures: 1.Colonoscopy to hepatic flexure. Further intubation could not be done due to lack of prep. 2.Multiple biopsies in the rectal area. 3.Ana María ink tattooing of the lesion in the anorectal area. Premedication: Per Anesthesia. Complexity: Complex procedure. Tolerance And Sedation: Excellent. Procedure In Detail: Procedure, possible complications, alternatives including, but not limited to t he possibility of bleeding, perforation, tear, infection, sepsis, need for surgery, need for blood tr ansfusion, anesthesia related problem explained to the patient. Informed consent was obtained. She was placed in left lateral position. Digital and rectal examination showed rectal prolapse. In edelmira tion, rectal mass was noted. Forward view retroflexion in this area revealed a 4-5 cm mass occupying about 1/2 of anorectal room. The mass appears to be arising at the anus and goes all the way to go rectum approximately 4 cm in length. This was marked by a tattoo and after that, multiple biopsies d one. Sigmoid, descending colon area, transverse colon severely deformed due to severe diverticulosis and poor prep. Visualization was poor in this case as small lesions cannot be ruled out. However, no major mass noted. Because of very difficult colonoscopy and the patient's debilitated status and given the poor preparation, intubation beyond hepatic flexure was not attempted. Having done the above procedure in a safe, diligent, and satisfactory manner, endoscope and rest of t he endoscopic accessories were removed. The patient's rectal area cleaned out in a respectful manner . The patient has been sent in excellent condition to postop recovery, from there to the floor. Impression: Anorectal mass, severe diverticulosis deformity, poor prep. [place] preparation 05/20. Complications: None immediately. The patient tolerated the procedure well. Disposition: To the floor. ESHA/MIRIAML Voice ID: [id number] Report ID: [id number]
[2017-07-08] MEDS: FAMOTIDINE 20 MG TAB PO SCH (21:11)
[2017-07-08] MEDS: MELATONIN 3 MG TABLET PO SCH (21:11)
[2017-07-09] MEDS: METRONIDAZOLE 500mg IVPB 500 MG/100 ML BAG IV SCH ×3 (00:23→16:11)
[2017-07-09] MEDS: ALPRAZOLAM 0.25 MG TABLET PO SCH ×2 (00:23→09:13)
[2017-07-09 05:59] LABS: Bicarbonate 26 mEq/L (21-31); Glucose Level 103 mg/dL (65-120); Magnesium 1.9 mg/dL (1.8-2.5); Potassium 3.2 mEq/L (3.6-5.0); Sodium Level 137 mEq/L (135-145)
[2017-07-09 06:02] LABS: BUN Blood Urea Nitrogen < 5 mg/dL (6-20)
[2017-07-09] MEDS: LEVOTHYROXINE SOD 0.05 MG TABLET PO SCH (06:05)
[2017-07-09] MEDS ORDERED: POTASSIUM 25 MEQ EFFERV TAB PO ONE (06:26)
[2017-07-09] MEDS: ENSURE CLEAR 200 ML CAN PO SCH ×2 (09:00→21:00)
[2017-07-09] MEDS: DEXTROSE PO SCH (09:00)
[2017-07-09] MEDS: [UNRECOGNIZED DRUG - OTHER] PO SCH (09:00)
[2017-07-09] MEDS: predniSONE 5 MG TAB PO SCH ×2 (09:14→21:02)
[2017-07-09] MEDS: CIPROFLOXACIN 400mg IV 400 MG/200 ML BAG IV SCH ×2 (10:32→21:02)
[2017-07-09] MEDS: SPIRONOLACTONE 25 MG TABLET PO SCH (10:32)
[2017-07-09] MEDS: ROFLUMILAST 500 MCG TABLET PO SCH (12:06)
[2017-07-09] MEDS: ATORVASTATIN 40 MG TAB PO SCH (12:06)
[2017-07-09] MEDS: PARoxetine HCl 10 MG TAB PO SCH (12:06)
--- NOTE | 2017-07-09 14:49 | PN ---
Date of Progress Note: 07/09/2017 Subjective: The patient was seen this morning for followup. She was sitting at bedside, still havin g some rectal pain with some bleeding per rectum, unchanged. She had a colonoscopy done yesterday an alfredo Topete has obtained appropriate biopsy. We are waiting for pathology report to rule out any unde rlying cancer. The patient says since colonoscopy she is having diarrhea stool, describes the stool as liquidy stool. She describes having 4 bowel movements this morning after she woke up and last nig ht she had 2 or 3. She did not eat breakfast this morning. Denies any abdominal pain, nausea, or vo miting. Objective: Vital signs: Reviewed. Blood pressure is a little bit elevated this morning. HEENT: Unremarkable. Lungs: Clear to auscultation. No rhonchi or rales. Heart: Sounds normal. Abdomen: Soft. Bowel sounds normal. No guarding, rigidity, tenderness, or distention. Extremities: Trace leg edema. Laboratory Data: Sodium 137, potassium 3.2, chloride 110, bicarb 26, BUN less than 5, creatinine 0.5 8, glucose 103. Impression: 1.Rectal bleeding. 2.Rule out rectal carcinoma. 3.Hypokalemia. 4.Hypertension. 5.Diarrhea. 6.Anemia. Plan: We will go ahead and continue current antihypertensive medication. We will add spironolactone 25 mg p.o. daily as she keeps on having hypokalemia on a daily basis, which is being addressed with electrolyte replacement protocol and spironolactone may help controlling hypokalemia along with her b lood pressure problem. We will continue IV fluid. Considering her watery diarrhea is still and not eating this morning. We really do not feel comfortable discharging her to go home today. Once her c ondition improves, we will plan to do that and she can follow up with tariff expert sometime skyler beltran a week or so to obtain biopsy report and further plan of treatment. I have ordered stool tests f or culture and C. diff. ARNOL/MODL Voice ID: [id number] Report ID: [id number]
[2017-07-09] MEDS ORDERED: KCL 20 MEQ/100 mL IVPB 20 MEQ/100 ML BAG IV SCH (15:00)
[2017-07-09] MEDS: NA CHLORIDE 0.9% 1,000 ML IV SCH (16:11)
[2017-07-09] MEDS: MELATONIN 3 MG TABLET PO SCH (21:02)
[2017-07-09] MEDS: FAMOTIDINE 20 MG TAB PO SCH (21:02)
[2017-07-09 23:24] VITALS: O2SAT 97
[2017-07-10] MEDS: METRONIDAZOLE 500mg IVPB 500 MG/100 ML BAG IV SCH ×2 (00:19→09:26)
[2017-07-10] MEDS: NA CHLORIDE 0.9% 1,000 ML IV SCH (03:08)
[2017-07-10] MEDS: LEVOTHYROXINE SOD 0.05 MG TABLET PO SCH (05:16)
[2017-07-10 06:12] LABS: Absolute Lymphocytes (CBC) 3.2 K/uL (0.7-4.9); Absolute Monocytes 0.7 K/uL (0.1-1.3); Absolute Neutrophil 5.1 K/uL (1.8-8.0); Basophils % 0.3 % (0-1.3); Hematocrit 31.3 % (36.0-45.0); Lymphocytes % 35.4 % (15.3-44.8); MCV 85.5 fL (80-100); MPV 7.3 fL (7.6-11.3); Monocytes % 7.1 % (3.3-12.3); RBC Red Blood Cell Count 3.66 M/uL (3.86-4.86)
[2017-07-10 06:32] LABS: Magnesium 1.7 mg/dL (1.8-2.5); Potassium 3.8 mEq/L (3.6-5.0)
[2017-07-10] MEDS ORDERED: POTASSIUM CL SA 10 MEQ TAB PO ONE (07:30)
[2017-07-10] MEDS ORDERED: MAGNESIUM SULFATE 1 gm IVPB 1 GM/100 ML BAG IV ONE (07:30)
[2017-07-10 08:33] VITALS: TEMP 97
[2017-07-10] MEDS: [UNRECOGNIZED DRUG - OTHER] PO SCH (09:00)
[2017-07-10] MEDS: DEXTROSE PO SCH (09:00)
[2017-07-10] MEDS: ENSURE CLEAR 200 ML CAN PO SCH (09:00)
[2017-07-10] MEDS: CIPROFLOXACIN 400mg IV 400 MG/200 ML BAG IV SCH (09:00)
[2017-07-10] MEDS: ALPRAZOLAM 0.25 MG TABLET PO SCH (09:26)
[2017-07-10] MEDS: SPIRONOLACTONE 25 MG TABLET PO SCH (09:26)
[2017-07-10] MEDS: predniSONE 5 MG TAB PO SCH (09:26)
[2017-07-10 12:01] VITALS: BP 173/86
--- NOTE | 2017-07-11 03:31 | DS ---
Date of Discharge: 07/10/2017 Disposition: Discharged to go home. Discharge7 Physical Examination: HEENT: Examination unremarkable. Lungs: Clear to auscultation. Heart: Sounds normal. Abdomen: Soft, bowel sounds normal. No guarding, rigidity, tenderness, or distention. Extremities: Trace leg edema. Laboratory Data: Initial blood work when she came in; white count 9, hemoglobin 10.8, platelets 327 on 07/05/2017. Today, white count 9.1, hemoglobin 10.3, platelets 281. Lowest hemoglobin during thi s hospitalization was on 07/06/2017 and hemoglobin was 9.9. The patient did not require any blood tr ansfusion during this hospitalization. Chemistry; last chemistry today, sodium 139, potassium 3.8, c hloride 108, bicarb 27. BUN 6, creatinine 0.63, glucose 100, magnesium 1.7. Potassium was low durin g this hospitalization. Lowest potassium 3.1 and it was corrected with electrolyte replacement rick col. CEA was ordered to be done today. Result will be followed up. Discharge Medications: 1.Continue all prior home medications. 2.Take Cipro 500 mg p.o. twice a day for 10 days. 3.Metronidazole 500 mg 3 times a day for 10 days. 4.Hemocyte Plus 1 p.o. daily. 5.Spironolactone 25 mg p.o. daily. Discharge Followup: Follow with Dr. Topete this coming week on Tuesday as per her scheduled appointmen t and follow up at my office in 2 weeks. Hospital Course: An 87-year-old female patient, admitted to the hospital with rectal pain and bleedi ng. Please see dictated H and P for more information. The patient came in with almost 2-3 weeks his tory of this rectal pain and bleeding. After she was evaluated in the ER, she was admitted to the [facility]. She was noted to have mass in the rectum area which was protruding outside her anal opening. GI consultation was requested from Dr. Topete. The patient was initially kept on clear liquid diet a nd subsequently after the colonoscopy was done, her diet was advanced. She is tolerating diet very w ell. Does not have any nausea or vomiting. She is ambulating well in the room. Dr. Topete has obtain ed appropriate biopsy to rule out if this mass is adenoma or carcinoma and biopsy result is still pen ding. She had some diarrhea and that is improving. She says her diarrhea now is not liquid watery s tool but it is loose stool and it is a very small amount. She was given Cipro and metronidazole duri ng this hospitalization to see if the rectal wall thickening was due to inflammatory changes or not, and we will continue that antibiotic for 10 more days upon discharge. Her potassium was low, which w e tried to correct with electrolyte replacement protocol, and as of yesterday, I started her on julia nolactone 25 mg p.o. daily and that should help provide some control of her blood pressure problem al mohit with it should help her potassium as well. She was made aware of this. Today, she will be disch arged to go home in stable condition if okay with [facility] with outpatient followup. Final Diagnoses: 1.Rectal bleeding. 2.Acute blood loss anemia. 3.Rule out rectal carcinoma. 4.Hypokalemia. 5.Hypophosphatemia. 6.Hypertension. 7.Diverticulosis. 8.Chronic obstructive pulmonary disease. 9.Chronic steroid therapy. 10.Rheumatoid arthritis. 11.Hypothyroidism. 12.Lymphedema, legs. ARNOL/MODL Voice ID: [id number] Report ID: [id number]
== END 2017-07-10 12:19 | disposition home or self-care (01) | DRG 375 ==
LOC: ER 07:16 → ERHOLD 10:49 → 2ND 12:11
PROVIDERS: ADMIT Internal Medicine; ATTEND Internal Medicine
PROC: 0DBP8ZX Excision of Rectum, Via Natural or Artificial Opening Endoscopic, Diagnostic (ICD-10-PCS; principal; 2017-07-08 14:30)
DX: C20 Malignant neoplasm of rectum (principal); D62 Acute posthemorrhagic anemia; K62.3 Rectal prolapse; K57.90 Diverticulosis of intestine, part unspecified, without perforation or abscess without bleeding; E87.6 Hypokalemia; E03.9 Hypothyroidism, unspecified; M06.9 Rheumatoid arthritis, unspecified; I10 Essential (primary) hypertension; J44.9 Chronic obstructive pulmonary disease, unspecified; E83.39 Other disorders of phosphorus metabolism; R60.0 Localized edema; Z79.52 Long term (current) use of systemic steroids
CPT/HCPCS: 36415; 71045; 74177; 80048; 80076; 81003; 82378; 82550; 82553; 82962; 83690; 83735; 83880; 84132; 84443; 84484; 85025; 85610; 85730; 86850; 86900; 86901; 87045; 87046; 87493; 88305; 93005; 96365; 96368; 96375; 97163; 99285; J0744; J1720; J2405; J3475; J7030; J7512; Q9967

== ENCOUNTER 2017-08-13 09:44 | Inpatient (IN) | payer OTHER ==
--- OUTSIDE RECORDS SUMMARY | 2017-08-13 09:47 | XMS REPORT | Clinical Summary ---
:1930 Author Organization [facility] Address [address] [place] [address] Phone Care Team Providers Name Role Phone Unavailable Primary Care Provider Unavailable Allergies Active Allergy Reactions Severity Noted Date Comments Mesalamine Rash High 12/05/2015 Sore throat, eyes hurt, "large whelps" Adalimumab Swelling High 12/05/2015 Swelling of face, feet ankles legs, sob Methotrexate Analogues Other (See High 12/05/2015 SOB Comments) Abatacept (With Swelling High 12/05/2015 Knee joints so painful [place]) could not walk-infection Promethazine Other (See High 12/05/2015 Hallucinations Comments) Rituximab Swelling High 12/05/2015 Sulfasalazine Other (See Medium 12/05/2015 Headaches, weakness, no Comments) energy Current Medications Prescription Sig. Disp. Refills Start Date End Date Status esomeprazole Take 40 mg by Active (NEXIUM) 40 MG mouth 2 (two) capsule times daily . PARoxetine (PAXIL) Take 40 mg by Active 40 MG tablet mouth every morning. predniSONE Take 5 mg by Active (DELTASONE) 5 MG mouth 2 (two) tablet times daily . cycloSPORINE 1 drop 2 (two) Active (RESTASIS) 0.05 % times daily. ophthalmic emulsion budesonide-formotero Inhale 2 puffs Active l (SYMBICORT) by mouth via 160-4.5 inhaler 2 mcg/actuation (two) times inhaler daily. albuterol HFA Inhale 1 puff Active (VENTOLIN HFA) 90 by mouth via mcg/actuation inhaler every inhaler 6 (six) hours as needed for Wheezing. umeclidinium Inhale 1 puff Active (INCRUSE ELLIPTA) by mouth via 62.5 mcg/actuation inhaler daily DsDv powder for . inhalation furosemide (LASIX) Take 20 mg by Active 20 MG tablet mouth daily . spironolactone Take 25 mg by Active (ALDACTONE) 25 MG mouth 2 (two) tablet times daily. atorvastatin Take 40 mg by Active (LIPITOR) 40 MG mouth daily. tablet ALPRAZolam (XANAX) Take 0.25 mg Active 0.25 MG tablet by mouth every night as needed for Anxiety. famotidine (PEPCID) Take 20 mg by Active 20 MG tablet mouth daily. levothyroxine Take 50 mcg by Active (SYNTHROID, mouth Every LEVOTHROID) 50 MCG morning on an tablet empty stomach. roflumilast Take by mouth Active (DALIRESP) 500 mcg daily. Tab tablet IRON FUM/FOLIC Take by mouth. Active ACID/MV,MIN 15 (HEMOCYTE-PLUS ORAL) melatonin 3 mg Tab Take by mouth. Active tablet tiotropium (SPIRIVA) Inhale 18 mcg Active 18 mcg inhalation by mouth via capsule inhaler daily. polyethylene glycol Take 17 g by Active (GLYCOLAX) 17 gram mouth daily. packet docusate sodium Take 100 mg by Active (COLACE) 100 MG mouth 2 (two) capsule times daily. DEXTRIN (EASY FIBER Take by mouth. Active ORAL) hydrocortisone Place rectally 30 g 0 08/05/2017 Active (ANUSOL-HC) 2.5 % 2 (two) times 8 rectal cream daily for 10 days. aspirin 81 MG EC Take 81 mg by Discontinued tablet mouth daily. 8 levothyroxine Take 50 mcg by 12/06/2015 (SYNTHROID, mouth Every 7 LEVOTHROID) 75 MCG morning on an tablet empty stomach. amoxicillin-clavulan Take 1 tablet 10 tablet 0 08/05/2017 ate (AUGMENTIN) by mouth 2 8 875-125 mg per (two) times tablet daily for 5 days. Active Problems Problem Noted Date Gastroesophageal reflux disease without esophagitis 08/04/2017 Rectal bleeding 08/03/2017 Hypokalemia 08/03/2017 Other specified hypothyroidism 08/03/2017 Normochromic anemia 08/03/2017 Rectal polyp 08/02/2017 Arrhythmia 02/02/2016 PVC (premature ventricular contraction) 02/01/2016 TIA (transient ischemic attack) 01/31/2016 Hypothyroidism 01/31/2016 Transient cerebral ischemia, unspecified type 12/05/2015 COPD (chronic obstructive pulmonary disease) (HCC) GERD (gastroesophageal reflux disease) Anxiety Thyroid disease Encounters Date Type Specialty Care Team Description 08/02/2017 [facility] Internal Otshira, Gastroesophageal - Encounter Medicine MD Ricardo reflux disease without 08/05/2017 Parhizgar, esophagitis;Hypokalemi MD James a;Other specified hypothyroidism;Rectal bleeding;Rectal polyp 08/02/2017 Anesthesia Event Gastroenterology Abeba Fuchs, GRANTS ANALYST 08/02/2017 Procedure Pass Gastroenterology 08/02/2017 Surgery Gastroenterology Katie, COLONOSCOPY,SUBMUCOSAL MD Ricardo RESECTION 07/29/2017 Hospital Pre-Admission Testing Encounter after 08/12/2016 Social History Tobacco Use Types Packs/Day Years Used Date Never Smoker Smokeless Tobacco: Never Used Alcohol Use Drinks/Week oz/Week Comments No Sex Assigned at Date Recorded Not on file Last Filed Vital Signs Vital Sign Reading Time Taken Blood Pressure 169/78 08/05/2017 7:50 AM CDT Pulse 88 08/05/2017 9:08 AM CDT Temperature 36.2 C (97.1 F) 08/05/2017 7:50 AM CDT Respiratory Rate 19 08/05/2017 9:08 AM CDT Oxygen Saturation 98% 08/05/2017 9:08 AM CDT Inhaled Oxygen Concentration - - Weight 48.1 kg (106 lb) 08/02/2017 8:31 PM CDT Height 149.9 cm (4' 11.02") 08/02/2017 8:31 PM CDT Body Mass Index 21.4 08/02/2017 8:31 PM CDT Plan of Treatment Not on file Procedures Procedure Name Priority Date/Time Associated Diagnosis Comments COLONOSCOPY,SUBMUCOSAL 08/02/2017 2:00 PM Polyp of colon, INJECTION CDT unspecified part of colon, unspecified type COLONOSCOPY,SUBMUCOSAL 08/02/2017 2:00 PM Polyp of colon, RESECTION CDT unspecified part of colon, unspecified type after 08/12/2016 Results REPORT OF PROCEDURE - ENDOSCOPY URL (08/08/2017 12:52 PM)Calcium, Ionized (08/05 5:48 AM) Component Value Ref Range Calcium, Ion 1.05 (L) 1.12 - 1.27 mmol/L pH, Blood 7.46 Specimen Performing Laboratory Blood - Arm, [address] [address] CBC with platelet count + automated diff (08/05/2017 5:48 AM)Only the most recent of3 resultswithin the time period is included. Component Value Ref Range WBC 9.4 3.5 - 10.5 K/L RBC 3.48 (L) 3.93 - 5.22 M/L Hemoglobin 10.0 (L) 11.2 - 15.7 GM/DL Hematocrit 31.1 (L) 34.1 - 44.9 % MCV 89.4 79.4 - 94.8 fL MCH 28.7 25.6 - 32.2 pg MCHC 32.2 32.2 - 35.5 GM/DL RDW 18.3 (H) 11.7 - 14.4 % Platelets 234 150 - 450 K/CU MM MPV 8.9 (L) 9.4 - 12.3 fL nRBC 0 0 - 0 /100 WBC % Neutros 70 % % Lymphs 24 % % Monos 5 % % Eos 0 % % Baso 0 % # Neutros 6.54 (H) 1.56 - 6.13 K/L # Lymphs 2.30 1.18 - 3.74 K/L # Monos 0.50 (H) 0.24 - 0.36 K/L # Eos 0.03 (L) 0.04 - 0.36 K/L # Baso 0.02 0.01 - 0.08 K/L Immature Granulocytes-Relative 0 0 - 1 % Specimen Performing Laboratory Blood - Arm, [address] [address] Prothrombin time/INR (08/05/2017 5:48 AM)Only the most recent of3 resultswithin the time period is included. Component Value Ref Range Protime 14.2 11.7 - 14.7 seconds INR 1.1 <=5.9 Specimen Performing Laboratory Blood - Arm, [address] [address] Narrative RECOMMENDED COUMADIN/WARFARIN INR THERAPY RANGES STANDARD DOSE: 2.0 - 3.0 Includes: PROPHYLAXIS for venous thrombosis, systemic embolization; TREATMENT for venous thrombosis and/or pulmonary embolus. HIGH RISK: Target INR is 2.5-3.5 for patients with mechanical heart valves. CBC with platelet count + automated diff (08/05/2017 5:48 AM)Only the most recent of3 resultswithin the time period is included. Specimen Performing Laboratory Blood Narrative The following orders were created for panel order CBC with platelet count + automated diff. Procedure Abnormality Status --------- ------ CBC with platelet count ...[[id number]]AbnormalFinal result Please view results for these tests on the individual orders. Phosphorus (08/05/2017 5:48 AM) Component Value Ref Range Phosphorus 2.7 2.3 - 4.7 mg/dL Specimen Performing Laboratory Blood - Arm, [address] [address] Magnesium (08/05/2017 5:48 AM) Component Value Ref Range Magnesium 1.9 1.6 - 2.6 mg/dL Specimen Performing Laboratory Blood - Arm, [address] [address] Hepatic function panel (08/05/2017 5:48 AM)Only the most recent of3 resultswithin the time period is included. Component Value Ref Range Protein, Total 5.2 (L) 6.0 - 8.3 gm/dL Albumin 2.9 (L) 3.5 - 5.0 g/dL Total Bilirubin 0.8 0.2 - 1.2 mg/dL Bilirubin, Direct 0.4 0.1 - 0.5 mg/dL Alkaline Phosphatase 43 40 - 150 U/L AST 13 5 - 34 U/L ALT 10 6 - 55 U/L Specimen Performing Laboratory Blood - Arm, [address] [address] Basic metabolic panel (08/05/2017 5:48 AM)Only the most recent of4 resultswithin the time period is included. Component Value Ref Range Sodium 139 136 - 145 meq/L Potassium 4.1 3.5 - 5.1 meq/L Chloride 107 98 - 107 meq/L CO2 26 22 - 29 meq/L BUN 11 7 - 21 mg/dL Creatinine 0.73 0.57 - 1.25 mg/dL Glucose 107 (H) 70 - 105 mg/dL Calcium 8.5 8.4 - 10.2 mg/dL EGFR 76Comment: ESTIMATED GFR IS NOT ACCURATE mL/min/1.73 sq m CREATININE CLEARANCE IN PREDICTING GLOMERULAR FILTRATION RATE. ESTIMATED GFR IS NOT APPLICABLE FOR DIALYSIS PATIENTS. Specimen Performing Laboratory Blood - Arm, Right [address] [address] Urinalysis w/Microscopic (08/03/2017 2:35 PM) Component Value Ref Range Color, UA Yellow Clarity, UA Clear Specific [place], UA 1.010 1.001 - 1.035 pH, UA 5.5 5.0 - 8.0 Protein, UA Negative Negative Glucose, UA Negative Negative Ketones, UA Trace (A) Negative Bilirubin, UA Negative Negative Blood, UA Negative Negative Nitrite, UA Negative Negative Leukocytes, UA Negative Negative Urobilinogen, UA 0.2 0.2 - 1.0 mg/dL RBC, UA 1 /HPF WBC, UA 3 /HPF Mucus Few Squam Epithel, UA <1 /HPF Hyaline Casts, UA 2 /LPF Specimen Source Specimen Performing Laboratory Urine [address] [address] Tissue Exam (08/02/2017 5:15 PM) Component Value Ref Range Case Report Surgical Pathology Report Case: [id number] Authorizing Provider:Ricardo Wilson MDCollected: 08/02/2017 1715 Ordering Location: [facility] Endoscopy Received: 08/03/2017 0837 Services Pathologist: Larry Cohn MD Specimen:Rectal, MASS- TAKEN BY ESD, ON WAX, EVALUATE MARGINS DIAGNOSIS RECTAL, 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 The skin surface exhibits a 3.7 x 3.3 x 1.4 cm, irregular, pink-durham, polypoid mass. Sectioning reveals a pink-durham, homogeneous, friable cut surface. No firm areas are identified. The surrounding uninvolved mucosa is pink-durham, dusky and unremarkable. Ink code: Peripheral resection margins-black, deep margin-blue. The specimen is entirely sequentially submitted in cassettes A1-A15 with one bisected slice in each cassette. DB/ew MICROSCOPIC DESCRIPTION Microscopic examination is performed and the findings are incorporated in the diagnostic line. Specimen Performing Laboratory Tissue - Rectal [facility] [address] [address] after 08/12/2016
--- OUTSIDE RECORDS SUMMARY | 2017-08-13 09:47 | XMS REPORT | Clinical Summary ---
:1930 Author Organization [facility] Address [address] [place] [address] Care Team Providers Name Role Phone Asked, [...] Andre Hiatal hernia ( Primary 04/07/2017 MD Mihcelle Dx) Ambrosio Og MD 03/31/2017 Office Visit General Surgery Jose Alberto Chiu Hiatal hernia ( Primary RPratima, Dx) after 08/12/2016 Family History Medical History Relation Name Comments [...] Taken Blood Pressure 154/73 04/19/2017 11:52 AM GUN PERFORATOR LOADER Pulse 101 04/19/2017 1:00 PM GUN PERFORATOR LOADER Temperature 36.7 C (98 F) 04/19/2017 11:52 AM GUN PERFORATOR LOADER Respiratory Rate 20 04/19/2017 1:00 PM GUN PERFORATOR LOADER Oxygen Saturation 96% 04/19/2017 2:33 PM GUN PERFORATOR LOADER Inhaled Oxygen Concentration - - Weight 54.4 kg (120 lb) 04/12/2017 12:01 PM GUN PERFORATOR LOADER Height 149.9 cm (4' 11") 04/12/2017 12:01 PM GUN PERFORATOR LOADER Body Mass Index 24.24 04/12/2017 12:01 PM GUN PERFORATOR LOADER Plan of Treatment Health Maintenance Due Date Last Done Comments SHINGRIX VACCINE (#1) 1981 ZOSTER VACCINE 1991 PNEUMOCOCCAL POLYSACCHARIDE VACCINE AGE 65 AND OVER 1996 PNEUMOCOCCAL-13 1996 INFLUENZA VACCINE 10/12/2017 Implants Implanted Type Area Telegraph Installer Device Identifier Expiration Date Model / Serial / Lot Reveal Linq-02/02/2016 Implanted: Qty: 1 on 02/02/2016 Procedures Procedure Name Priority Date/Time Associated Diagnosis Comments CENTRAL LINE Routine 04/12/2017 2:01 PM GUN PERFORATOR LOADER Procedure Note - Madhu Monsivais MD - 04/12/2017 2:00 PM GUN PERFORATOR LOADER Central line Performed by: MADHU MONSIVAIS Authorized [...] the procedure well with no immediate complications HI AN ELECTIVE ENDOTRACHEAL AIRWAY Routine 04/12/2017 1:58 PM GUN PERFORATOR LOADER Procedure Note - Madhu Monsivais MD - 04/12/2017 1:58 PM GUN PERFORATOR LOADER Airway Performed by: MADHU MONSIVAIS Authorized by: [...] 1:30 PM Hiatal hernia HERNIA REPAIR converted GUN PERFORATOR LOADER to OPEN HIATAL HERNIA REPAIR WITH FUNDOPLICATION CV STRESS TEST NUCLEAR Routine 04/02/2017 9:47 AM Results for this CARDIO GUN PERFORATOR LOADER procedure are in the results section. ECHOCARDIOGRAM 2D Routine 04/01/2017 4:35 PM Results for this COMPLETE W MMODE GUN PERFORATOR LOADER procedure are in SPECTRAL COLOR DOPPLER the results (77110) section. after 08/12/2016 Results Pv duplex venous lower extremity (04/19/2017 11:11 AM) Specimen Performing Laboratory [facility] [address] [place] [address] Narrative Vascular Ultrasound Laboratory Lower Extremity Venous Report [address] [place] [address] Pat.Name:ELVA JENKINS Pat.ID:[id number] .Date: 04/19/2017Refer.MD:AMBROSIO OG MD Exam Time: 10:32:00 AM Study Type:LE Venous Height:59inWeight: 120lb BSA: 1.49 m2 DOBAge:1930,86Y Sex: FEMALESonogrphr: Eliel Ghotra RN, RVS Pat. Stat.:OutpatientTapeVol: PM, CPT - 4: 94514 Echo Event ID:[id number] Order ID:[id number] Reason for Study:Bilateral leg edema. Race:C SUMMARY: [...] Radiology Results In - 04/19/2017 12:[address] [facility] Vascular Ultrasound Laboratory Lower Extremity Venous Report [address] [place] [address] Pat.Name: ELVA JENKINS [facility].ID: [id number] .Date: 04/19/2017 Refer.MD: AMBROSIO OG MD Exam Time: 10:32:00 AM Study Type:LE Venous Height: 59in Weight: 120lb BSA: 1.49 m2 Age: 2 1930,86Y Sex: FEMALE Sonogrphr: Eliel Ghotra RN, RVS Pat. Stat.:Outpatient Tape Vol: PM, [facility] - 4: 40019 Echo Event ID:[id number] Order ID: [id number] Reason for Study:Bilateral leg edema. Race: C [...] and Americans. Specimen Performing Laboratory Plasma specimen [facility] DEPARTMENT OF PATHOLOGY AND GENOMIC MEDICINE [address] [place] [address] Phosphorus level (04/19/2017 4:00 AM)Only the most recent of5 resultswithin the time period is included. Component Value Ref Range Phosphorus 2.6 2.4 - 4.5 mg/dL Specimen Performing Laboratory Plasma specimen [facility] DEPARTMENT OF PATHOLOGY AND GENOMIC MEDICINE [address] [place] [address]9513 Magnesium level (04/19/2017 4:00 AM)Only the most recent of4 resultswithin the time period is included. Component Value Ref Range Magnesium 1.6 1.6 - 2.4 mg/dL Specimen Performing Laboratory Plasma specimen [facility] DEPARTMENT OF PATHOLOGY AND GENOMIC MEDICINE [address] [place] [address] 22969 Basic metabolic panel (04/19/2017 4:00 AM)Only the [...] 10.2 mg/dL Specimen Performing Laboratory Plasma specimen [facility] DEPARTMENT OF PATHOLOGY AND GENOMIC MEDICINE [address] [place] [address] 52513 CBC with platelet and differential (04/19/2017 3:45 [...] (promyelocytes, myelocytes, metamyelocytes) Specimen Performing Laboratory Blood [facility] DEPARTMENT OF PATHOLOGY AND GENOMIC MEDICINE [address] [place] [address] 12530 XR Abdomen 1 Vw Portable (04/17/2017 1:00 PM)Only the most recent of2 resultswithin the time period is included. Specimen Performing Laboratory [facility] [address] [place] [address] Narrative EXAMINATION:XR ABDOMEN 1 VW PORTABLE CLINICAL HISTORY:Distention COMPARISON:April 16, 2017 IMPRESSION: Diffuse bowel distention, most pronounced in the right colon, is without significant change. The cecum measures approximately 7.5 cm. This is suggestive of ileus. Left femoral line is again noted. Midline skin digna are also present. [facility]-[id number] Procedure Note Interface, Radiology Results Incoming - 04/17/2017 1:07 PM GUN PERFORATOR LOADER EXAMINATION: XR ABDOMEN 1 VW PORTABLE CLINICAL HISTORY: Distention COMPARISON: April 16, 2017 IMPRESSION: Diffuse bowel distention, most pronounced in the right colon, is without significant change. The cecum measures approximately 7.5 cm. This is suggestive of ileus. Left femoral line is again noted. Midline skin digna are also present. [facility]-[id number] XR Abdomen 2 Vw Ap W Upright And/Or Decubitus (04/16/2017 9:23 AM) Specimen Performing Laboratory [facility] [address] [place] [address] Narrative EXAMINATION:XR ABDOMEN 2 VW AP W [...] base with a tiny left pleural effusion. [facility]-[id number] Procedure Note Interface, Radiology Results Incoming - 04/16/2017 9:31 AM GUN PERFORATOR LOADER EXAMINATION: XR ABDOMEN 2 VW AP W [...] base with a tiny left pleural effusion. [facility]-[id number] ECG 12 lead (04/13/2017 4:43 AM)Only the most recent of2 resultswithin the time period is included. Component Value Ref Range Ventricular rate 112 Atrial rate 112 HI interval 122 QRSD interval 72 QT interval 330 QTC interval 450 P axis 1 55 QRS axis 1 21 T wave axis 40 EKG impression Sinus tachycardia-Otherwise normal ECG-In automated comparison with ECG of 02-APR-2017 06:09,-No significant change was found- Specimen Performing Laboratory [facility] MUSE [address] [place] [address] XR Chest 1 Vw Portable (04/12/2017 3:48 PM) Specimen Performing Laboratory [facility] [address] [place] [address] Narrative Examination:XR CHEST 1 VW PORTABLE Clinical history:"Attempted central line placements" Comparison:None IMPRESSION: Lungs are clear. Heart size is within normal limits. Bones are osteopenic. Left cervical calcifications are seen. [id number] Procedure Note [facility], Radiology Results Incoming - 04/12/2017 4:14 PM GUN PERFORATOR LOADER Examination: XR CHEST 1 VW PORTABLE Clinical history: "Attempted central line placements" Comparison: None IMPRESSION: Lungs are clear. Heart size is within normal limits. Bones are osteopenic. Left cervical calcifications are seen. [id number] Partial thromboplastin time, activated (04/12/2017 4:00 AM)Only the most recent of2 resultswithin the time period is included. Component Value Ref Range PTT 25.6 23.0 - 36.0 sec Comment: PTT therapeutic range for unfractionated heparin is 61.0-112.0 seconds which corresponds to Anti-Xa 0.3-0.7 U/ml. Specimen Performing Laboratory Blood [facility] DEPARTMENT OF PATHOLOGY AND GENOMIC MEDICINE [address] [place] [address] Prothrombin time with INR (04/12/2017 4:00 AM)Only [...] vein thrombosis/pulmonary embolism. Specimen Performing Laboratory Blood [facility] DEPARTMENT OF PATHOLOGY AND GENOMIC MEDICINE [address] [place] [address] Type and screen (04/12/2017 4:00 AM) Component Value Ref Range ABO grouping A Rh type POS Antibody screen (gel) NEG Specimen Performing Laboratory Blood [facility] DEPARTMENT OF PATHOLOGY AND GENOMIC MEDICINE [address] [place] [address] XR Chest 2 Vw (04/11/2017 7:49 PM)Only the most recent of3 resultswithin the time period is included. Specimen Performing Laboratory [facility] [address] [place] [address] Narrative Examination: Chest 2 views CLINICAL HISTORY: COPD Emphysema COMPARISON: None. FINDINGS: The heart is not enlarged. There is a large retrocardiac hiatal hernia. IMPRESSION: . There is better aeration of both lungs when compared to a recent CT scan from 04/08/2017 with a most complete resolution of right lower lobe parenchymal infiltrates. No pleural effusion. [facility]-[id number] Procedure Note [facility], Radiology Results Incoming - 04/11/2017 8:47 PM GUN PERFORATOR LOADER Examination: Chest 2 views CLINICAL HISTORY: COPD Emphysema COMPARISON: None. FINDINGS: The heart is not enlarged. There is a large retrocardiac hiatal hernia. IMPRESSION: . There is better aeration of both lungs when compared to a recent CT scan from 04/08/2017 with a most complete resolution of right lower lobe parenchymal infiltrates. No pleural effusion. [facility]-[id number] Vancomycin level, trough (04/11/2017 3:00 PM) Component Value Ref Range Vancomycin, trough 7.1 (L) 10.0 - 20.0 ug/mL Comment: Therapeutic Ranges: Peak 30.0 - 40.0 ug/mL Omommx35.0 - 20.0 ug/mL Specimen Performing Laboratory Serum [facility] DEPARTMENT OF PATHOLOGY AND GENOMIC MEDICINE [address] [place] [address]958 Sputum culture (04/11/2017 10:00 AM) Component Value Ref Range Sputum culture isolate No normal oral jamal isolated. (A) Comment: Specimen Information Specimen Source: Sputum Specimen Site: Expectorated Sputum culture isolate Amber albicans Occasional The performance characteristics of this assay on this isolate were validated by the Microbiology Laboratory at [facility].This source has not been approved by the U.S. Food and Drug Administration.The results are not intended to be used as the sole means for clinical diagnosis or patient management.The Microbiology Laboratory is authorized under the clinical Laboratory Improvement Amendments of 1988 (CLIA-88) to perform high complexity testing. The performance characteristics of this assay on this isolate were validated by the Microbiology Laboratory at [facility].This source has not been approved by the U.S. Food and Drug Administration.The results are not intended to be used as the sole means for clinical diagnosis or patient management.The Microbiology Laboratory is authorized under the clinical Laboratory Improvement Amendments of 1988 (CLIA-88) to perform high complexity testing. (A) Specimen Performing Laboratory Sputum - Expectorated [facility] DEPARTMENT OF PATHOLOGY AND GENOMIC MEDICINE [address] [place] [address] Gram stain (04/11/2017 10:00 AM) Component Value Ref Range Gram stain isolate No WBC's Few epithelial cells No organisms seen Comment: Specimen Information Specimen Source: Sputum Specimen Site: Expectorated Specimen Performing Laboratory Sputum - Expectorated [facility] DEPARTMENT OF PATHOLOGY AND GENOMIC MEDICINE [address] [place] [address] CT Chest Wo Contrast (04/08/2017 8:17 PM) Specimen Performing Laboratory [facility] [address] [place] [address] Narrative EXAMINATION: CT CHEST WO CONTRAST CLINICAL [...] irregular nodules most compatible with inflammatory change. [facility]-[id number] Procedure Note Hm Interface, Radiology Results Incoming - 04/08/2017 8:27 PM GUN PERFORATOR LOADER EXAMINATION: CT CHEST WO CONTRAST CLINICAL HISTORY: [...] irregular nodules most compatible with inflammatory change. [facility]-[id number] Respiratory pathogen panel (04/08/2017 10:25 AM) Component [...] Specimen Performing Laboratory Nares - Not specified [facility] DEPARTMENT OF PATHOLOGY AND GENOMIC MEDICINE [address] [place] [address] Urinalysis screen and microscopy, with reflex to [...] UA None seen Specimen Performing Laboratory Urine [facility] DEPARTMENT OF PATHOLOGY AND GENOMIC MEDICINE [address] [place] [address]123 Urine culture (04/08/2017 8:33 AM) Component Value Ref Range Urine culture SEE COMMENTComment: Bacteriuria screen negative. Specimen Performing Laboratory [facility] DEPARTMENT OF PATHOLOGY AND [facility] MEDICINE [address] [place] [address]643 Blood culture, aerobic & anaerobic (04/08/2017 8:18 AM)Only the most recent of2 resultswithin the time period is included. Component Value Ref Range Blood culture isolate No growth after 5 days of incubation. Comment: Specimen Information Specimen Source: Blood Specimen Site: Hand, right Specimen Performing Laboratory Blood - Hand, right [facility] OF PATHOLOGY AND [facility] [address] [place] [address] 67975 Comprehensive metabolic panel (04/08/2017 8:00 AM)Only the [...] 5.8 (L) 6.3 - 8.3 g/dL Comment: [place] 4.6-7.0 g/dL 1 week 4.4-7.6 g/dL 7 months-1year5.1-7.3 g/dL 1-2 years5.6-7.5 g/dL >3 years6.0-8.0 g/dL 18-150 6.3-8.3 g/dL Albumin 2.6 (L) 3.5 - 5.0 g/dL A/G ratio 0.8 0.7 - 3.8 Alkaline phosphatase 40 35 - 104 U/L AST 18 10 - 35 U/L ALT 17 5 - 50 U/L Total bilirubin 1.0 0.0 - 1.2 mg/dL Specimen Performing Laboratory Plasma specimen [facility] DEPARTMENT PATHOLOGY [address] [address] C difficile toxin (04/06/2017 1:15 PM) Component Value Ref Range Clostridium difficile toxin No Clostridium difficle toxin present Comment: Specimen Information Specimen Source: Stool Specimen Site: Nonpreserved Specimen Performing Laboratory Stool - Nonpreserved [facility] PATHOLOGY [address] [address] C-reactive protein (04/03/2017 4:00 AM) Component Value Ref Range CRP <0.30 0.00 - 0.50 mg/dL Specimen Performing Laboratory Plasma specimen [facility] PATHOLOGY [address] [address] Prealbumin level (04/03/2017 4:00 AM) Component Value Ref Range Prealbumin 23 16 - 32 mg/dL Specimen Performing Laboratory Serum [facility] PATHOLOGY [address] [address] Hepatic function panel (04/03/2017 4:00 AM) Component [...] 35 U/L Specimen Performing Laboratory Plasma specimen [facility] DEPARTMENT OF PATHOLOGY AND GENOMIC MEDICINE [address] [place] [address] CV stress test (04/02/2017 9:47 AM) Component [...] ECG report.-Electronically Signed By Liberty PALOMARES, Eduard ([id number]), video editor Esa Munoz ([id number]) on 04/03/2017 1:32:55 PM Specimen Performing Laboratory [facility] MUSE [address] [place] [address] 11493 Nm myocardial perfusion (04/02/2017 9:47 AM) Specimen Performing Laboratory [facility] [address] [place] [address] Narrative Nuclear Cardiology and Cardiac CT [address] [place] [address] Myocardial Perfusion Imaging Report Stress ECG tracings are available in MUSE, EPIC and CV Web All ECG interpretations are included in this report Pat.Name:ELVA JENKINS Pat.ID:[id number] .Date: 04/02/2017 Refer.MD:KEVIN ANDRE MD Exam Time: 8:46:00 AM Study Type:Myocardial Perfusion Imaging Height:59inWeight: 119lb BSA: 1.48 m2 DOBAge:1930,86Y Sex: FEMALEBP:134/60 HR:89 bpm Nuclear Tech:CARRIE Carpenter, SEBASTIÁN/CARRIE Najera Pat. Stat.:Inpatient Room:A748 Nuclear Event ID:[id number] Order ID:[id number] Reason for Study:Pre-op evaluation, intermediate/high risk patient History / Clinical:COPD, Hyperlipidemia, Hypertension Procedures:Stress only Race: Risk Factors:Hyperlipidemia, Hypertension Clinical Symptoms:Regadenoson Physical Exam:S1, S2, clear lungs Surgery: Serum K+ Date,3.7/03/31/17, Troponin I Date,1)not done/ 2)/ 3)/, BUN/Creatinine [...] Radiology Results In - 04/02/2017 11:[address] [facility] Nuclear Cardiology and Cardiac CT [address] [place] [address] Myocardial Perfusion Imaging Report Stress ECG tracings are available in [employer], [employer] and [employer] All ECG interpretations are included in this report Gabi.Name: ELVA JENKINS Pat.ID: [id number] .Date: 04/02/2017 Refer.MD: KEVIN ANDRE MD Exam Time: 8:46:00 AM Study Type:Myocardial Perfusion Imaging Height: 59in Weight: 119lb BSA: 1.48 m2 Age: 2 1930,86Y Sex: FEMALE BP: 134/60 HR: 89 bpm Nuclear Tech:Mesfin Gifford, PANTS CUTTER, ARRT/Valentino Pulido, PANTS CUTTER Pat. Stat.:Inpatient Room: A748 Nuclear Event ID:[id number] Order ID: [id number] Reason for Study:Pre-op evaluation, intermediate/high risk patient [...] 200 mg/dL Specimen Performing Laboratory Plasma specimen [facility] DEPARTMENT OF PATHOLOGY AND GENOMIC MEDICINE [address] [place] [address] Echocardiogram complete w contrast and 3D if needed (04/01/2017 4:35 PM) Specimen Performing Laboratory [facility] [address] [place] [address] Narrative Echocardiography Report [address] [place] [address] Pat.Name:ELVA JENKINS Pat.ID:[id number] .Date: 04/01/2017 Refer.MD:KEVIN ANDRE MD Exam Time: 1:15:00 PMStudy Type:Routine Echo Height:59inWeight: 119lb BSA: 1.48 m2 DOBAge:1930,86Y Sex: FEMALEBP:140/66 HR:84 bpm Sonogrphr: Lindsay Edwards RDCS; Debra Ashley. Stat.:Inpatient Room:[address] Study Status:Final Echo Event ID:[id number] Order ID:[id number] Reason for Study:Etiology - Symptoms or conditions [...] RAPof 5 mmHg. MEASUREMENTS: 2D Parasternal Long [place] LVOT 1.8 cmLA Ds3.5 cm LVIDd3.4 cmIndex 2.3 cm/m Ao An1.9 cm LVIDs1.9 cmAo Rtd 3.3 cm Index2.2 cm/m LV%fs 44.1 % LV Ubhk204.6 g(87-129) IVSd 1.5 cmLVM Index 99.7 g/m2 LVPWd1.1 cmRWT0.6 DOPPLER LVOT For Flow LVOT Area2.5 cm2 LVOT SV 66.1 ml IJJJgsKrf580.3 cm/sHR86.5 bpm LVOTpkPG 7.6 mmHgLVOT CO 5.7 l/min LVOTmnPG 4 mmHgLVOT CI3.9 l/m/m2 LVOT TVI26 cm Signed 04/01/2017 11:24 PM Sheila Gage MD Procedure Note Interface, Radiology Results In - 04/01/2017 11:24 PM GUN PERFORATOR LOADER Echocardiography Report [address] [place] [address] Pat.Name: ELVA JENKINS Pat.ID: [id number] .Date: 04/01/2017 Refer.MD: KEVIN ANDRE MD Exam Time: 1:15:00 PM Study Type:Routine Echo Height: 59in Weight: 119lb BSA: 1.48 m2 Age: 2 1930,86Y Sex: FEMALE BP: 140/66 HR: 84 bpm Sonogrphr: Lindsay Edwards RDCS; Debra Ashley. Stat.:Inpatient Room: [address] Study Status:Final Echo Event ID:[id number] Order ID: [id number] Reason for Study:Etiology - Symptoms or conditions [...] of 5 mmHg. MEASUREMENTS: 2D Parasternal Long [place] LVOT 1.8 cm LA Ds 3.5 cm [...] PM) Specimen Performing Laboratory [facility] [address] Vascular Ultrasound Laboratory Carotid Artery Duplex Report [address] [place] [address] For quality assurance lab technician purposes, the categorization of the degree of the stenosis of this exam is based on criteria described in the IAC carotid stenosis grading white paper( www.intersocietal.org/Vascular) and Priyanka Avery, Michelle Oliveira, et al. Carotid artery stenosis: campbell-scale and Doppler US diagnosis--Society of Radiologists in Ultrasound Consensus Conference. Radiology. 2003 Nov; 229(2):340-6. Pat.Name:ELVA JENKINS Pat.ID:[id number] .Date: 04/01/2017 Exam Time: 2:54:00 PM Study Type:Carotid DOBAge:1930,86Y Sex: FEMALESonogrphr: Levi Nielsen RVT, ALFA Pat. Stat.:Inpatient Room:[address] TapeVol: HARDIK, CPT - 4: 41587 Echo Event ID:[id number] Order ID:[id number] Reason for Study:Preop. PMH of HTN, COPD, [...] EDV24.3 cm/s Right ICA Mid ICA Mid [id number] cm/[place] Mid EDV 32.1 cm /s Right [...] Radiology Results In - 04/01/2017 4:[address] [facility] Vascular Ultrasound Laboratory Carotid Artery Duplex Report [address] [place] [address] For quality assurance lab technician purposes, the categorization of the degree of the stenosis of this exam is based on criteria described in the IAC carotid stenosis grading white paper( www.intersocietal.org/Vascular) and Priyanka Avery, Michelle Oliveira, et al. Carotid artery stenosis: campbell-scale and Doppler US diagnosis--Society of Radiologists in Ultrasound Consensus Conference. Radiology. 2003 Jan; 229(2):340-6. Pat.Name: ELVA JENKINS Pat.ID: [id number] .Date: 04/01/2017 Exam Time: 2:54:00 PM Study Type:Carotid Age: 2 1930,86Y Sex: FEMALE Sonogrphr: Levi Nielsen RVT, RDMS Pat. Stat.:Inpatient Room: [address] [place] [address] Vol: MK, CPT - 4: 65820 Echo Event ID:[id number] Order ID: [id number] Reason for Study:Preop. PMH of HTN, COPD, [...] Study (03/25/2017 5:50 PM) Specimen Performing Laboratory [facility] [address] [place] [address] Narrative This exam was not acquired at a [facility] facility and has not been interpreted by a [facility] Provider.The exam was imported into our imaging system for comparisons purposes. CT Abd/Pelvic External Study (03/24/2017 3:30 PM) Specimen Performing Laboratory [facility] [address] [place] [address] Narrative This exam was not acquired at a [facility] facility and has not been interpreted by a [facility] Provider.The exam was imported into our imaging system for comparisons purposes. after 08/12/2016 Insurance Payer Benefit Plan / Group Subscriber ID Type Phone Address [employer] xxxxxxxxx O [phone] [place] [address]
--- OUTSIDE RECORDS SUMMARY | 2017-08-13 09:48 | XMS REPORT ---
:1930 Author Organization [facility] Address [address] [place] [address] [address] [place] [address] Care Team Providers Name Role Phone DANIELRICARDO ALMONTE Unavailable Unavailable Problems This patient has no known problems. Allergies, Adverse Reactions, Alerts This patient has no known allergies or adverse reactions. Medications This patient has no known medications. Results Test Description Test Time Test Comments Text Results Atomic Results Result Comments PHOSPHORUS 2017-08-05 06:56:00 Test Item Value Reference Range Comments PHOSPHORUS (BEAKER) (test smum=949) 2.7 mg/dL 2.3-4.7 [id number] 06:56:00 Test Item Value Reference Range Comments MAGNESIUM (BEAKER) (test zspl=543) 1.9 mg/dL 1.6-2.6 BASIC METABOLIC [id number] 06:56:00 Test Item Value Reference Range Comments SODIUM (BEAKER) (test 139 meq/L 136-145 nxxt=189) POTASSIUM (BEAKER) (test 4.1 meq/L 3.5-5.1 iwso=909) CHLORIDE (BEAKER) (test 107 meq/L 98-107 lhtg=231) CO2 (BEAKER) (test 26 meq/L 22-29 nfrl=227) BLOOD UREA NITROGEN 11 mg/dL 7-21 (BEAKER) (test gsei=171) CREATININE (BEAKER) (test 0.73 mg/dL 0.57-1.25 qsyh=296) GLUCOSE RANDOM (BEAKER) 107 mg/dL 70-105 (test jzdf=845) CALCIUM (BEAKER) (test 8.5 mg/dL 8.4-10.2 cetn=583) EGFR (BEAKER) (test 76 mL/min/1.73 sq m ESTIMATED GFR IS NOT xqwd=1388) ACCURATE CREATININE CLEARANCE IN PREDICTING GLOMERULAR FILTRATION RATE. ESTIMATED GFR IS NOT APPLICABLE FOR DIALYSIS PATIENTS. HEPATIC FUNCTION [id number] 06:56:00 Test Item Value Reference Range Comments TOTAL PROTEIN (BEAKER) (test lqhy=580) 5.2 gm/dL 6.0-8.3 ALBUMIN (BEAKER) (test zqrp=6064) 2.9 g/dL 3.5-5.0 BILIRUBIN TOTAL (BEAKER) (test azav=543) 0.8 mg/dL 0.2-1.2 BILIRUBIN DIRECT (BEAKER) (test nscd=480) 0.4 mg/dL 0.1-0.5 ALKALINE PHOSPHATASE (BEAKER) (test wmmo=984) 43 U/L 40-150 AST (SGOT) (BEAKER) (test ydkk=010) 13 U/L 5-34 ALT (SGPT) (BEAKER) (test erss=561) 10 U/L 6-55 CALCIUM, [id number] 06:36:00 Test Item Value Reference Range Comments CALCIUM IONIZED (BEAKER) (test yhsk=138) 1.05 mmol/L 1.12-1.27 PH, BLOOD (BEAKER) (test xtil=0852) 7.46 PROTHROMBIN [id number] 06:35:00 Test Item Value Reference Range Comments PROTIME (BEAKER) (test rwzr=757) 14.2 seconds 11.7-14.7 INR (BEAKER) (test efol=650) 1.1 <=5.9 RECOMMENDED COUMADIN/WARFARIN INR THERAPY RANGESSTANDARD DOSE: 2.0 - 3.0 Includes: PROPHYLAXIS forvenous thrombosis, systemic embolization; TREATMENT for venous thrombosis and/or pulmonary embolus.HIGH RISK: Target INR is 2.5-3.5 for patients with mechanical heart valves.CBC W/PLT COUNT & AUTO [id number] 06:25:00 Test Item Value Reference Range Comments WHITE BLOOD CELL COUNT (BEAKER) (test xphe=364) 9.4 K/ L 3.5-10.5 RED BLOOD CELL COUNT (BEAKER) (test hlha=528) 3.48 M/ L 3.93-5.22 HEMOGLOBIN (BEAKER) (test ufea=928) 10.0 GM/DL 11.2-15.7 HEMATOCRIT (BEAKER) (test gtdb=573) 31.1 % 34.1-44.9 MEAN CORPUSCULAR VOLUME (BEAKER) (test nxdi=874) 89.4 fL 79.4-94.8 MEAN CORPUSCULAR HEMOGLOBIN (BEAKER) (test 28.7 pg 25.6-32.2 yxdu=215) MEAN CORPUSCULAR HEMOGLOBIN CONC (BEAKER) (test 32.2 GM/DL 32.2-35.5 kjkz=054) RED CELL DISTRIBUTION WIDTH (BEAKER) (test 18.3 % 11.7-14.4 ueah=677) PLATELET COUNT (BEAKER) (test wdtu=487) 234 K/CU MM 150-450 MEAN PLATELET VOLUME (BEAKER) (test fbvt=292) 8.9 fL 9.4-12.3 NUCLEATED RED BLOOD CELLS (BEAKER) (test 0 /100 WBC 0-0 lmps=739) NEUTROPHILS RELATIVE PERCENT (BEAKER) (test 70 % gasu=223) LYMPHOCYTES RELATIVE PERCENT (BEAKER) (test 24 % bpbs=611) MONOCYTES RELATIVE PERCENT (BEAKER) (test 5 % qteo=060) EOSINOPHILS RELATIVE PERCENT (BEAKER) (test 0 % cmvd=979) BASOPHILS RELATIVE PERCENT (BEAKER) (test 0 % evmp=965) NEUTROPHILS ABSOLUTE COUNT (BEAKER) (test 6.54 K/ L 1.56-6.13 kfhg=615) LYMPHOCYTES ABSOLUTE COUNT (BEAKER) (test 2.30 K/ L 1.18-3.74 bapz=524) MONOCYTES ABSOLUTE COUNT (BEAKER) (test 0.50 K/ L 0.24-0.36 gwqq=499) EOSINOPHILS ABSOLUTE COUNT (BEAKER) (test 0.03 K/ L 0.04-0.36 bnfa=544) BASOPHILS ABSOLUTE COUNT (BEAKER) (test 0.02 K/ L 0.01-0.08 aghs=467) IMMATURE GRANULOCYTES-RELATIVE PERCENT (BEAKER) 0 % 0-1 (test bxqc=7932) TISSUE [id number] 14:52:00Surgical Pathology Report Case: [id number] Authorizing Provider: Ricardo Wilson MD Collected: 08/02/2017 1715 Ordering Location: [facility] Endoscopy Received: 08/03/2017 0837 Services Pathologist: Larry Cohn MD Specimen: Rectal, MASS- TAKEN BY ESD, ON WAX, EVALUATE MARGINS RECTAL, 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 Sectioning reveals a pink-durham, homogeneous, friable cut surface. No firm areas are identified.The surrounding uninvolved mucosa is pink-durham, dusky and unremarkable.Ink code: Peripheral resection margins-black, deep margin-blue.The specimen is entirely sequentially submitted in cassettes A1-A15 with one bisected slice in each cassette. DB/ew Microscopic examination is performed and the findings are incorporated in the diagnostic line.CBC W/PLT COUNT & AUTO [id number] 06:19:00 Test Item Value Reference Range Comments WHITE BLOOD CELL COUNT (BEAKER) (test hfbi=342) 15.6 K/ L 3.5-10.5 RED BLOOD CELL COUNT (BEAKER) (test lyvr=941) 3.50 M/ L 3.93-5.22 HEMOGLOBIN (BEAKER) (test zrvo=677) 9.9 GM/DL 11.2-15.7 HEMATOCRIT (BEAKER) (test aadr=610) 31.4 % 34.1-44.9 MEAN CORPUSCULAR VOLUME (BEAKER) (test zwkr=281) 89.7 fL 79.4-94.8 MEAN CORPUSCULAR HEMOGLOBIN (BEAKER) (test 28.3 pg 25.6-32.2 sfdb=292) MEAN CORPUSCULAR HEMOGLOBIN CONC (BEAKER) (test 31.5 GM/DL 32.2-35.5 dxjm=165) RED CELL DISTRIBUTION WIDTH (BEAKER) (test 18.0 % 11.7-14.4 wqcs=789) PLATELET COUNT (BEAKER) (test jfyw=921) 223 K/CU MM 150-450 MEAN PLATELET VOLUME (BEAKER) (test dqzj=220) 8.7 fL 9.4-12.3 NUCLEATED RED BLOOD CELLS (BEAKER) (test 0 /100 WBC 0-0 vxwm=033) NEUTROPHILS RELATIVE PERCENT (BEAKER) (test 81 % avrz=550) LYMPHOCYTES RELATIVE PERCENT (BEAKER) (test 15 % bqbd=342) MONOCYTES RELATIVE PERCENT (BEAKER) (test 4 % ufll=124) EOSINOPHILS RELATIVE PERCENT (BEAKER) (test 0 % pgph=253) BASOPHILS RELATIVE PERCENT (BEAKER) (test 0 % jvly=025) NEUTROPHILS ABSOLUTE COUNT (BEAKER) (test 12.56 K/ L 1.56-6.13 anqq=939) LYMPHOCYTES ABSOLUTE COUNT (BEAKER) (test 2.36 K/ L 1.18-3.74 yazl=340) MONOCYTES ABSOLUTE COUNT (BEAKER) (test 0.56 K/ L 0.24-0.36 tnmj=764) EOSINOPHILS ABSOLUTE COUNT (BEAKER) (test 0.03 K/ L 0.04-0.36 daal=653) BASOPHILS ABSOLUTE COUNT (BEAKER) (test 0.02 K/ L 0.01-0.08 uijz=803) IMMATURE GRANULOCYTES-RELATIVE PERCENT (BEAKER) 0 % 0-1 (test qysq=4109) HEPATIC FUNCTION [id number] 06:15:00 Test Item Value Reference Range Comments TOTAL PROTEIN (BEAKER) (test rkhy=298) 4.9 gm/dL 6.0-8.3 ALBUMIN (BEAKER) (test mcrt=9566) 2.8 g/dL 3.5-5.0 BILIRUBIN TOTAL (BEAKER) (test sfbm=299) 1.1 mg/dL 0.2-1.2 BILIRUBIN DIRECT (BEAKER) (test wcnl=451) 0.5 mg/dL 0.1-0.5 ALKALINE PHOSPHATASE (BEAKER) (test exhb=499) 42 U/L 40-150 AST (SGOT) (BEAKER) (test mmjt=769) 15 U/L 5-34 ALT (SGPT) (BEAKER) (test eryw=057) 12 U/L 6-55 BASIC METABOLIC [id number] 06:15:00 Test Item Value Reference Range Comments SODIUM (BEAKER) (test 139 meq/L 136-145 hjif=943) POTASSIUM (BEAKER) (test 4.6 meq/L 3.5-5.1 ovda=404) CHLORIDE (BEAKER) (test 108 meq/L 98-107 lzxq=973) CO2 (BEAKER) (test 25 meq/L 22-29 llcw=191) BLOOD UREA NITROGEN 13 mg/dL 7-21 (BEAKER) (test wkfg=988) CREATININE (BEAKER) (test 0.73 mg/dL 0.57-1.25 fquy=519) GLUCOSE RANDOM (BEAKER) 115 mg/dL 70-105 (test fldj=859) CALCIUM (BEAKER) (test 8.5 mg/dL 8.4-10.2 mzhd=414) EGFR (BEAKER) (test 76 mL/min/1.73 sq m ESTIMATED GFR IS NOT qzpy=8867) ACCURATE CREATININE CLEARANCE IN PREDICTING GLOMERULAR FILTRATION RATE. ESTIMATED GFR IS NOT APPLICABLE FOR DIALYSIS PATIENTS. PROTHROMBIN [id number] 05:59:00 Test Item Value Reference Range Comments PROTIME (BEAKER) (test xjjt=577) 14.6 seconds 11.7-14.7 INR (BEAKER) (test aemp=601) 1.1 <=5.9 RECOMMENDED COUMADIN/WARFARIN INR THERAPY RANGESSTANDARD DOSE: 2.0 - 3.0 Includes: PROPHYLAXIS forvenous thrombosis, systemic embolization; TREATMENT for venous thrombosis and/or pulmonary embolus.HIGH RISK: Target INR is 2.5-3.5 for patients with mechanical heart valves.URINALYSIS W/ [id number] 14 :53:00 Test Item Value Reference Range Comments COLOR (BEAKER) (test nmuh=756) Yellow CLARITY (BEAKER) (test ispz=820) Clear SPECIFIC GRAVITY UA (BEAKER) (test zvap=012) 1.010 1.001-1.035 PH UA (BEAKER) (test jiln=705) 5.5 5.0-8.0 PROTEIN UA (BEAKER) (test dxxz=247) Negative Negative GLUCOSE UA (BEAKER) (test lffm=219) Negative Negative KETONES UA (BEAKER) (test ghhf=824) Trace Negative BILIRUBIN UA (BEAKER) (test dbro=891) Negative Negative BLOOD UA (BEAKER) (test kmxw=645) Negative Negative NITRITE UA (BEAKER) (test zdec=877) Negative Negative LEUKOCYTE ESTERASE UA (BEAKER) (test mfqv=890) Negative Negative UROBILINOGEN UA (BEAKER) (test yioa=352) 0.2 mg/dL 0.2-1.0 RBC UA (BEAKER) (test aysl=051) 1 /HPF WBC UA (BEAKER) (test snhd=017) 3 /HPF MUCUS (BEAKER) (test xwpm=4083) Few SQUAMOUS EPITHELIAL (BEAKER) (test qyfk=827) < /HPF HYALINE CASTS (BEAKER) (test mnee=371) 2 /LPF SOURCE(BEAKER) (test hcef=1056) HEPATIC FUNCTION [id number] 06:31:00 Test Item Value Reference Range Comments TOTAL PROTEIN (BEAKER) (test fkie=577) 5.2 gm/dL 6.0-8.3 ALBUMIN (BEAKER) (test ndcp=4586) 3.1 g/dL 3.5-5.0 BILIRUBIN TOTAL (BEAKER) (test orhk=425) 1.1 mg/dL 0.2-1.2 BILIRUBIN DIRECT (BEAKER) (test znqw=686) 0.5 mg/dL 0.1-0.5 ALKALINE PHOSPHATASE (BEAKER) (test ibqq=670) 47 U/L 40-150 AST (SGOT) (BEAKER) (test pdtd=245) 20 U/L 5-34 ALT (SGPT) (BEAKER) (test lhue=134) 15 U/L 6-55 BASIC METABOLIC [id number] 06:31:00 Test Item Value Reference Range Comments SODIUM (BEAKER) (test 139 meq/L 136-145 yntu=759) POTASSIUM (BEAKER) (test 2.7 meq/L 3.5-5.1 hbdj=713) CHLORIDE (BEAKER) (test 106 meq/L 98-107 dpks=679) CO2 (BEAKER) (test 24 meq/L 22-29 opso=419) BLOOD UREA NITROGEN 7 mg/dL 7-21 (BEAKER) (test ibfp=294) CREATININE (BEAKER) (test 0.61 mg/dL 0.57-1.25 uviq=068) GLUCOSE RANDOM (BEAKER) 88 mg/dL 70-105 (test hknq=762) CALCIUM (BEAKER) (test 8.4 mg/dL 8.4-10.2 whhs=010) EGFR (BEAKER) (test 93 mL/min/1.73 sq m ESTIMATED GFR IS NOT rykm=5801) ACCURATE CREATININE CLEARANCE IN PREDICTING GLOMERULAR FILTRATION RATE. ESTIMATED GFR IS NOT APPLICABLE FOR DIALYSIS PATIENTS. BASIC METABOLIC [id number] 06:30:00 Test Item Value Reference Range Comments SODIUM (BEAKER) (test 136 meq/L 136-145 wmbi=540) POTASSIUM (BEAKER) (test 3.0 meq/L 3.5-5.1 Specimen slightly zrrm=861) hemolyzed CHLORIDE (BEAKER) (test 106 meq/L 98-107 nfcz=057) CO2 (BEAKER) (test 20 meq/L 22-29 snnp=320) BLOOD UREA NITROGEN 7 mg/dL 7-21 (BEAKER) (test nhdx=317) CREATININE (BEAKER) (test 0.61 mg/dL 0.57-1.25 Specimen slightly ocou=849) hemolyzed GLUCOSE RANDOM (BEAKER) 81 mg/dL 70-105 (test zqcg=429) CALCIUM (BEAKER) (test 8.2 mg/dL 8.4-10.2 idqa=804) EGFR (BEAKER) (test 93 mL/min/1.73 sq m ESTIMATED GFR IS NOT ogzr=3849) ACCURATE CREATININE CLEARANCE IN PREDICTING GLOMERULAR FILTRATION RATE. ESTIMATED GFR IS NOT APPLICABLE FOR DIALYSIS PATIENTS. CBC W/PLT COUNT & AUTO [id number] 06:25:00 Test Item Value Reference Range Comments WHITE BLOOD CELL COUNT (BEAKER) (test jgqn=137) 14.6 K/ L 3.5-10.5 RED BLOOD CELL COUNT (BEAKER) (test sgcg=817) 3.75 M/ L 3.93-5.22 HEMOGLOBIN (BEAKER) (test fbxz=768) 10.5 GM/DL 11.2-15.7 HEMATOCRIT (BEAKER) (test rtju=779) 33.1 % 34.1-44.9 MEAN CORPUSCULAR VOLUME (BEAKER) (test tqvq=042) 88.3 fL 79.4-94.8 MEAN CORPUSCULAR HEMOGLOBIN (BEAKER) (test 28.0 pg 25.6-32.2 usdn=536) MEAN CORPUSCULAR HEMOGLOBIN CONC (BEAKER) (test 31.7 GM/DL 32.2-35.5 iszl=308) RED CELL DISTRIBUTION WIDTH (BEAKER) (test 17.5 % 11.7-14.4 dvxq=137) PLATELET COUNT (BEAKER) (test gcgg=274) 246 K/CU MM 150-450 MEAN PLATELET VOLUME (BEAKER) (test tdir=344) 8.9 fL 9.4-12.3 NUCLEATED RED BLOOD CELLS (BEAKER) (test 0 /100 WBC 0-0 nyjq=399) NEUTROPHILS RELATIVE PERCENT (BEAKER) (test 88 % wtkx=474) LYMPHOCYTES RELATIVE PERCENT (BEAKER) (test 5 % snls=913) MONOCYTES RELATIVE PERCENT (BEAKER) (test 6 % ahlk=867) EOSINOPHILS RELATIVE PERCENT (BEAKER) (test 0 % yysx=998) BASOPHILS RELATIVE PERCENT (BEAKER) (test 0 % xkhr=915) NEUTROPHILS ABSOLUTE COUNT (BEAKER) (test 12.85 K/ L 1.56-6.13 nykh=581) LYMPHOCYTES ABSOLUTE COUNT (BEAKER) (test 0.71 K/ L 1.18-3.74 cysc=919) MONOCYTES ABSOLUTE COUNT (BEAKER) (test 0.94 K/ L 0.24-0.36 ecuy=903) EOSINOPHILS ABSOLUTE COUNT (BEAKER) (test 0.00 K/ L 0.04-0.36 ligm=884) BASOPHILS ABSOLUTE COUNT (BEAKER) (test 0.02 K/ L 0.01-0.08 idii=735) IMMATURE GRANULOCYTES-RELATIVE PERCENT (BEAKER) 1 % 0-1 (test iber=6819) PROTHROMBIN [id number] 06:21:00 Test Item Value Reference Range Comments PROTIME (BEAKER) (test xvim=337) 13.5 seconds 11.7-14.7 INR (BEAKER) (test faey=616) 1.0 <=5.9 RECOMMENDED COUMADIN/WARFARIN INR THERAPY RANGESSTANDARD DOSE: 2.0 - 3.0 Includes: PROPHYLAXIS forvenous thrombosis, systemic embolization; TREATMENT for venous thrombosis and/or pulmonary embolus.HIGH RISK: Target INR is 2.5-3.5 for patients with mechanical heart valves.
[2017-08-13] MEDS ORDERED: ALBUTEROL 2.5 MG/3 ML NEB SOL ONE (10:08)
[2017-08-13] MEDS ORDERED: IPRATROPIUM BROM 0.5MG/2.5ML ONE (10:09)
[2017-08-13 10:28] LABS: Absolute Lymphocytes (CBC) 3.5 K/uL (0.7-4.9); Absolute Monocytes 0.7 K/uL (0.1-1.3); Absolute Neutrophil 10.2 K/uL (1.8-8.0); Basophils % 0.6 % (0-1.3); Eosinophils % 0.9 % (0-4.4); Hematocrit 35.8 % (36.0-45.0); Lymphocytes % 24.1 % (15.3-44.8); MCH 28.3 pg (27.0-35.0); MCV 87.8 fL (80-100); MPV 6.9 fL (7.6-11.3); Monocytes % 4.9 % (3.3-12.3); RBC Red Blood Cell Count 4.07 M/uL (3.86-4.86)
[2017-08-13 10:44] LABS: Potassium 3.8 mEq/L (3.6-5.0)
[2017-08-13 10:49] LABS: Protime INR 0.92
--- NOTE | 2017-08-13 12:00 | RAD REPORT ---
EXAM DESCRIPTION: VAS - Extremity Venous Uni Ltd - 08/13/2017 10:51 am CLINICAL HISTORY: Leg pain and swelling. Preliminary findings provided at the time of the study. COMPARISON: None. TECHNIQUE: Real-time sonographic evaluation of the left lower extremity deep venous systems was perf ormed. FINDINGS: Normal compression identified in the left common femoral vein. Echogenic material is prese nt from the proximal superficial femoral vein through the popliteal vein. Vein is mostly occluded. No suspicious finding in the adjacent soft tissues. IMPRESSION: Left lower extremity deep venous thrombosis involving femoral and popliteal veins.
--- NOTE | 2017-08-13 12:20 | EKG ---
Test Date: 2017-08-13 Test Time: 10:49:30 Incising Machine Operator: KRYS MEASUREMENT RESULTS: Intervals: Rate: 120 MS: 122 QRSD: 70 QT: 316 QTc: 446 [place]: P: 62 MS: 122 QRS: 49 T: 61 INTERPRETIVE STATEMENTS: Sinus tachycardia with occasional premature ventricular complexes Possible Left atrial enlargement Low voltage QRS Borderline ECG Compared to ECG 07/05/2017 08:21:42 Ventricular premature complex(es) now present Low QRS voltage now present Sinus rhythm no longer present Electronically Signed On 08-13-17 12:19:46 CDT by Neri Ward
[2017-08-13] MEDS ORDERED: ENOXAPARIN 60 MG/0.6 ML SQ ONE (12:22)
--- NOTE | 2017-08-13 12:26 | RAD REPORT ---
EXAM DESCRIPTION: CT - Chest For Pe Angio - 08/13/2017 12:11 pm CLINICAL HISTORY: Chest pain, shortness of breath COMPARISON: Chest film August 13, PE study August 2016 TECHNIQUE: Dynamically enhanced 3 mm thick images of the chest were obtained during administration o f approximately 150mL Isovue 370 IV contrast. Coronal and oblique reconstruction images were generate d and reviewed. Exam utilizes a protocol to evaluate the pulmonary arterial tree. All CT scans are performed using dose optimization technique as appropriate and may include automated exposure control or mA/KV adjustment according to patient size. FINDINGS: Extensive pulmonary embolic disease is present. There is thrombus in segmental branches of the left upper lobe. A large left lower lobar pulmonary embolism is present extending out into multi ple segmental branches. No midline saddle embolus. There is extensive embolic disease in the right up per lobar and segmental branches. Right middle lobe are and segmental branch embolic disease is prese nt as well as right lower lobar and segmental branch emboli. The aorta as imaged shows no acute or suspicious finding. Small pericardial effusion is present. Card iomegaly is present. No focal infiltrate or mass. Granulomatous calcifications are present. No pleural effusion or pleural thickening. No mediastinal or hilar suspicious masses. No chest wall masses or abnormal axillary lymphadenopathy. 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
--- NOTE | 2017-08-13 12:38 | ER ---
Nurse's Notes [facility] Name: Elva Jenkins Age: 87 yrs Sex: Female : 1930 Arrival Date: 08/13/2017 Time: 09:46 Bed 6 Private MD: Bharti Pollock C Diagnosis: Other pulmonary embolism without acute cor pulmonale Presentation: 08/13 09:53 Presenting complaint: Patient states: Worsening SOB and productive cough with clear hb sputum x 3 days. Denies fever. Hx COPD, does not use home O2. Transition of care: patient was not received from another setting of care. Onset of symptoms is unknown. Risk Assessment: Do you want to hurt yourself or someone else? Patient reports no desire to harm self or others. Initial Sepsis Screen: Does the patient meet any 2 criteria? RR > 20 per min. HR > 90 bpm. Does the patient have a suspected source of infection? No. Patient's initial sepsis screen is negative. Care prior to arrival: None. 09:53 Method Of Arrival: Ambulatory hb 09:53 Acuity: TAVON 2 hb Historical: - Allergies: 09:59 Asacol; hb 09:59 Demerol; hb 09:59 Humira; hb 09:59 Methotrexate; hb 09:59 Orencia; hb 09:59 Phenergan; hb 09:59 promethazine HCl; hb 09:59 Rituxan; hb 09:59 Sulfazine; hb - Home Meds: 09:59 alprazolam 0.25 mg Oral tab 1 tab BID PRN [Active]; atorvastatin 40 mg Oral tab 1 tab hb once daily [Active]; benzonatate 200 mg Oral cap 1 cap 3 times per day [Active]; lisinopril 10 mg Oral tab 1 tab once daily [Active]; meloxicam 7.5 mg Oral tab 1 tab BID [Active]; paroxetine HCl 40 mg Oral tab 1 tab once daily [Active]; Plavix 75 mg Oral tab 1 tab once daily [Active]; prednisone 5 mg Oral tab 1 tab 2 times per day [Active]; Spiriva with HandiHaler 18 mcg inhalation CpDv 1 cap once daily [Active]; Symbicort 160-4.5 mcg/actuation inhalation HFAA 2 puffs 2 times per day [Active]; - PMHx: 09:59 Anxiety; Arthritis; COPD; Hypothyroidism; hb - Immunization history:: Adult Immunizations up to date. - Social history:: Smoking status: Patient/guardian denies using tobacco. - Ebola Screening: : No symptoms or risks identified at this time. Screenin:24 Abuse screen: Denies threats or abuse. Denies injuries from another. Nutritional ph screening: No deficits noted. Tuberculosis screening: No symptoms or risk factors identified. Fall Risk No fall in past 12 months (0 pts). No secondary diagnosis (0 pts). IV access (20 points). Ambulatory Aid- None/Bed Rest/Nurse Assist (0 pts). Gait- Weak (10 pts.). Mental Status- Oriented to own ability (0 pts). Total Hutchinson Fall Scale indicates Low Risk Score (25-44 pts). Fall prevention measures have been instituted. Side Rails Up X 2 Family Present and informed to notify staff if they need to leave bedside As available Patient and Family Educated on Fall Prevention Program and strategies. Assessment: 09:55 General: Appears distressed, Behavior is cooperative. Pain: Denies pain. Neuro: Level hb of Consciousness is awake, alert, obeys commands, Oriented to person, place, time, situation. Cardiovascular: Heart tones S1 S2 present Capillary refill < 3 seconds Patient's skin is warm and dry. Edema is 4+ to left foot Rhythm is sinus tachycardia. Respiratory: Airway is patent Trachea midline Respiratory effort is even, labored, Respiratory pattern is regular, tachypnea Breath sounds are diminished bilaterally. GI: No signs and/or symptoms were reported involving the gastrointestinal system. : No signs and/or symptoms were reported regarding the genitourinary system. EENT: No signs and/or symptoms were reported regarding the EENT system. Derm: No signs and/or symptoms reported regarding the dermatologic system. Skin is intact, is healthy with good turgor, Skin is pink, warm \T\ dry. Musculoskeletal: No signs and/or symptoms reported regarding the musculoskeletal system. 11:10 Reassessment: Dr. Pollock at bedside. Ordered to hold CT chest until Dr. Pollock assesses ss patient. 12:00 Reassessment: Patient appears in no apparent distress at this time. Patient and/or hb family updated on plan of care and expected duration. Pain level reassessed. 13:00 Reassessment: Patient appears in no apparent distress at this time. Patient and/or hb family updated on plan of care and expected duration. Pain level reassessed. Patient is alert, oriented x 3, equal unlabored respirations, skin warm/dry/pink. Admission ordered, awaiting room assignment at this time Patient denies pain at this time. 14:00 Reassessment: Patient appears in no apparent distress at this time. Patient and/or hb family updated on plan of care and expected duration. Pain level reassessed. Patient is alert, oriented x 3, equal unlabored respirations, skin warm/dry/pink. Vital Signs: 09:53 BP 123 / 64; Pulse 120; Resp 24; Temp 98; Pulse Ox 87% on R/A; Pain 0/10; hb 10:30 BP 132 / 81; Pulse 126; Resp 24; Pulse Ox 95% on 2 lpm NC; hb 10:53 Weight 48.53 kg; ss 11:30 BP 128 / 78; Pulse 115; Resp 24; Pulse Ox 97% on 2 lpm NC; hb 12:31 BP 124 / 65; Pulse 119; Resp 25; Pulse Ox 98% on 2 lpm NC; hb 13:30 BP 122 / 64; Pulse 122; Resp 24; Pulse Ox 96% on 2 lpm NC; Pain 0/10; hb ED Course: 09:46 Patient arrived in ED. sb2 09:46 Bharti Pollock MD is Private Physician. sb2 09:51 Yayo Garcia MD is Attending Physician. gs 09:53 Jennifer Haley, GUME is Primary Nurse. hb 09:55 Triage completed. hb 09:56 Arm band placed on left wrist. EKG completed in triage. Results shown to MD. hb 10:17 Ultrasound completed. Patient tolerated well. Notified ED Physician sg3 10:23 Missed attempt(s): 20 gauge in right antecubital area. Bleeding controlled, band aid ph applied, catheter tip intact. 10:23 Initial lab(s) drawn, by me, sent to lab. Inserted saline lock: 22 gauge in left ph antecubital area, using aseptic technique. Blood collected. 10:25 Patient has correct armband on for positive identification. Bed in low position. Call ph light in reach. Side rails up X 1. Pulse ox on. NIBP on. Warm blanket given. 10:50 X-ray completed. Portable x-ray completed in exam room. Patient tolerated procedure kc2 well. 10:51 XRAY Chest (1 view) In Process Unspecified. EDMS 10:52 X-ray completed. Patient tolerated procedure well. kc2 10:57 EKG done, by ED staff, reviewed by Yayo Garcia MD. mh5 11:00 Radiology exam delayed due to Pt will be seen by Dr. Pollock prior to CT. cw1 11:00 Radiology exam delayed due to Perla will call when pt can come over to Cat Scan. cw1 11:15 Inserted saline lock: 22 gauge in right upper arm, using aseptic technique. Flushed sv right with 5 ml normal saline upper arm. 12:07 CT completed. Patient moved to CT via stretcher. Patient moved back from CT. cw1 12:11 CT Chest For PE Angio In Process Unspecified. EDMS 12:38 Hasmukh Pollock MD is Hospitalizing Provider. gs 14:34 No provider procedures requiring assistance completed. Patient admitted, IV remains in hb place. Administered Medications: 10:15 Drug: Albuterol 2.5 mg Route: Inhalation; hb 10:51 Follow up: Response: No adverse reaction hb 10:15 Drug: AtroVENT Aerosol 0.5 mg Route: Inhalation; hb 10:51 Follow up: Response: No adverse reaction hb 11:45 Drug: Lovenox 1 mg/kg Route: Sub-Q; Site: abdomen; hb 12:15 Follow up: Response: No adverse reaction hb Outcome: 12:38 Decision to Hospitalize by Provider. gs 14:25 Admitted to ICU accompanied by nurse, accompanied by tech, via stretcher, room 3, with oxygen, on monitor, with chart, Report called to GUME Schafer 14:25 Condition: stable 14:25 Instructed on the need for admit, Demonstrated understanding of instructions. 14:35 Patient left the ED. hb Signatures: Dispatcher [employer] EDMS Marylu Chris RN RN sv Smirch, Shelby, RN RN ss Woodley, Crystal cw1 Joyce Edwards RN RN ph Baxter, Heather, RN RN hb Carr, Kelsie 2 Tabby Granado 5 Yayo Garcia MD MD [facility] Love sg3 Romy Mcgarry sb2 Corrections: (The following items were deleted from the chart) 09:56 09:53 BP 123 / 64; Pulse 120bpm; Resp 24bpm; Pulse Ox 88% RA; Temp 98F; Pain 0/10; hb hb 09:56 09:56 Pulse Ox 94% 1 lpm Nasal Cannula; hb hb 10:51 10:51 In radiology for Extremity Venous Uni [email or web address]. EDMS sg3
--- NOTE | 2017-08-13 12:38 | EDPHYS ---
Physician Documentation [facility] Name: Elva Jenkins Age: 87 yrs Sex: Female : 1930 Arrival Date: 08/13/2017 Time: 09:46 Bed 6 Private MD: Bharti Pollock C ED Physician Yayo Garcia HPI: 08/13 12:30 This 87 yrs old Female presents to ER via Ambulatory with complaints of gs Breathing Difficulty. 12:30 The patient has shortness of breath at rest. Onset: The symptoms/episode began/occurred gs 2 day(s) ago. Duration: The symptoms are continuous. The patient's shortness of breath is aggravated by exertion, is alleviated by nothing. Associated signs and symptoms: Pertinent negatives: chest pain. Severity of symptoms: At their worst the symptoms were severe in the emergency department the symptoms are unchanged. The patient has experienced similar episodes in the past, a few times. Historical: - Allergies: 09:59 Asacol; hb 09:59 Demerol; hb 09:59 Humira; hb 09:59 Methotrexate; hb 09:59 Orencia; hb 09:59 Phenergan; hb 09:59 promethazine HCl; hb 09:59 Rituxan; hb 09:59 Sulfazine; hb - Home Meds: 09:59 alprazolam 0.25 mg Oral tab 1 tab BID PRN [Active]; atorvastatin 40 mg Oral tab 1 tab hb once daily [Active]; benzonatate 200 mg Oral cap 1 cap 3 times per day [Active]; lisinopril 10 mg Oral tab 1 tab once daily [Active]; meloxicam 7.5 mg Oral tab 1 tab BID [Active]; paroxetine HCl 40 mg Oral tab 1 tab once daily [Active]; Plavix 75 mg Oral tab 1 tab once daily [Active]; prednisone 5 mg Oral tab 1 tab 2 times per day [Active]; Spiriva with HandiHaler 18 mcg inhalation CpDv 1 cap once daily [Active]; Symbicort 160-4.5 mcg/actuation inhalation HFAA 2 puffs 2 times per day [Active]; - PMHx: 09:59 Anxiety; Arthritis; COPD; Hypothyroidism; hb - Immunization history:: Adult Immunizations up to date. - Social history:: Smoking status: Patient/guardian denies using tobacco. - Ebola Screening: : No symptoms or risks identified at this time. ROS: 12:30 MS/extremity: Positive for swelling, tenderness, of the left leg. gs 12:30 All other systems are negative. Exam: 12:30 Head/Face: Normocephalic, atraumatic. Eyes: Pupils equal round and reactive to light, gs extra-ocular motions intact. Lids and lashes normal. Conjunctiva and sclera are non-icteric and not injected. Cornea within normal limits. Periorbital areas with no swelling, redness, or edema. ENT: Nares patent. No nasal discharge, no septal abnormalities noted. Tympanic membranes are normal and external auditory canals are clear. Oropharynx with no redness, swelling, or masses, exudates, or evidence of obstruction, uvula midline. Mucous membranes moist. Neck: Trachea midline, no thyromegaly or masses palpated, and no cervical lymphadenopathy. Supple, full range of motion without nuchal rigidity, or vertebral point tenderness. No Meningismus. Chest/axilla: Normal chest wall appearance and motion. Nontender with no deformity. No lesions are appreciated. 12:30 Abdomen/GI: Soft, non-tender, with normal bowel sounds. No distension or tympany. No guarding or rebound. No evidence of tenderness throughout. Back: No spinal tenderness. No costovertebral tenderness. Full range of motion. Skin: Warm, dry with normal turgor. Normal color with no rashes, no lesions, and no evidence of cellulitis. Neuro: Awake and alert, GCS 15, oriented to person, place, time, and situation. Cranial nerves II-XII grossly intact. Motor strength 5/5 in all extremities. Sensory grossly intact. Cerebellar exam normal. Normal gait. 12:30 Constitutional: The patient appears alert, awake. 12:30 Cardiovascular: Rate: tachycardic, Rhythm: regular, Pulses: no pulse deficits are appreciated, Edema: 3+ edema to level of left midcalf and left ankle. 12:30 ECG was reviewed by the Attending Physician. 12:30 Respiratory: moderate respiratory distress is noted, Respirations: tachypnea, Breath sounds: decreased breath sounds, are located in both bases. 12:30 Musculoskeletal/extremity: Pulses: are normal with no appreciated deficits, DVT Exam: pain, swelling, tenderness, of the left leg. Vital Signs: 09:53 BP 123 / 64; Pulse 120; Resp 24; Temp 98; Pulse Ox 87% on R/A; Pain 0/10; hb 10:30 BP 132 / 81; Pulse 126; Resp 24; Pulse Ox 95% on 2 lpm NC; hb 10:53 Weight 48.53 kg; ss 11:30 BP 128 / 78; Pulse 115; Resp 24; Pulse Ox 97% on 2 lpm NC; hb 12:31 BP 124 / 65; Pulse 119; Resp 25; Pulse Ox 98% on 2 lpm NC; hb 13:30 BP 122 / 64; Pulse 122; Resp 24; Pulse Ox 96% on 2 lpm NC; Pain 0/10; hb MDM: 09:57 Patient medically screened. gs 12:30 Differential diagnosis: Chronic Obstructive Pulmonary Disease pneumonia, pulmonary gs edema, Pulmonary Embolism. Data reviewed: vital signs, nurses notes. 08/13 10:03 Order name: Basic Metabolic Panel; Complete Time: 10:51 08/13 10:03 Order name: CBC with Diff; Complete Time: 10:51 08/13 10:03 Order name: Magnesium; Complete Time: 10:51 08/13 10:03 Order name: PT-INR; Complete Time: 10:51 08/13 10:03 Order name: Troponin (emerg Dept Use Only); Complete Time: 11:39 08/13 12:52 Order name: Troponin I [facility] 08/13 10:03 Order name: XRAY Chest (1 view) 08/13 10:03 Order name: US Extremity Venous Unilateral Ltd; Complete Time: 12:38 08/13 10:53 Order name: CT Chest For PE Angio; Complete Time: 12:38 08/13 12:52 Order name: Troponin I [facility] 08/13 12:52 Order name: Troponin I [facility] 08/13 13:43 Order name: Urine Dipstick--Ancillary (enter results) em1 08/13 13:55 Order name: Urine Dipstick-Ancillary [facility] 08/13 10:03 Order name: EKG; Complete Time: 10:03 08/13 10:03 Order name: Cardiac monitoring; Complete Time: 10:22 08/13 10:03 Order name: EKG - Nurse/Tech; Complete Time: 10:51 08/13 10:03 Order name: IV Saline Lock; Complete Time: 10:15 08/13 10:03 Order name: Labs collected and sent; Complete Time: 10:16 08/13 10:03 Order name: O2 Per Protocol; Complete Time: 10:15 08/13 10:03 Order name: O2 Sat Monitoring; Complete Time: 10:16 08/13 10:03 Order name: Urine Dipstick-Ancillary (obtain specimen); Complete Time: 10:16 08/13 12:52 Order name: CONS Physician Consult [facility] 08/13 12:52 Order name: Low Sodium [facility] EC:30 Rate is 120 beats/min. Rhythm is regular. WI interval is normal. QRS interval is gs normal. T waves are Normal. No ST changes noted. Clinical impression: Abnormal EKG without significant change. Interpreted by me. Administered Medications: 10:15 Drug: Albuterol 2.5 mg Route: Inhalation; hb 10:51 Follow up: Response: No adverse reaction hb 10:15 Drug: AtroVENT Aerosol 0.5 mg Route: Inhalation; hb 10:51 Follow up: Response: No adverse reaction hb 11:45 Drug: Lovenox 1 mg/kg Route: Sub-Q; Site: abdomen; hb 12:15 Follow up: Response: No adverse reaction hb Disposition: 12:30 Critical Care:. gs Disposition: 08/13/17 12:38 Hospitalization ordered by Hasmukh Pollock for Inpatient Admission. Preliminary diagnosis is Other pulmonary embolism without acute cor pulmonale. - Bed requested for Intensive Care Unit. - Status is Inpatient Admission. hb - Condition is Stable. - Problem is new. - Symptoms have improved. UTI on Admission? No Critical care time excluding procedures: 12:30 Critical care time: Bedside Care: 10 minutes, Consultation: 10 minutes, Family gs Intervention: 10 minutes. Total time: 30 minutes Signatures: Dispatcher [facility] Jodi Snell RN RN Jnenifer Haley RN RN Yayo Garcia MD MD Corrections: (The following items were deleted from the chart) 13:16 12:38 Hospitalization Ordered by Hasmukh Pollock MD for Inpatient Admission. Preliminary diagnosis is Other pulmonary embolism without acute cor pulmonale. Bed requested for Intensive Care Unit. Status is Inpatient Admission. Condition is Stable. Problem is new. Symptoms have improved. UTI on Admission? No. gs 14:35 13:16 08/13/2017 12:38 Hospitalization Ordered by Hasmukh Pollock MD for Inpatient Admission. Preliminary diagnosis is Other pulmonary embolism without acute cor pulmonale. Bed requested for Intensive Care Unit. Status is Inpatient Admission. Condition is Stable. Problem is new. Symptoms have improved. UTI on Admission? No. dw
--- NOTE | 2017-08-13 12:41 | RAD REPORT ---
EXAM DESCRIPTION: RAD - Chest Single View - 08/13/2017 10:51 am CLINICAL HISTORY: Chest pain, shortness of breath COMPARISON: July 05 TECHNIQUE: AP portable chest image was obtained 1039 hours . FINDINGS: Interstitial lung disease is present but similar to comparison. No acute infiltrate, failu re or mass. Heart and vasculature are normal. No measurable pleural effusion and no pneumothorax. No gross bony abnormality seen. No acute aortic findings suspected. IMPRESSION: No acute cardiopulmonary process. Chest findings are similar to Yaritza.
[2017-08-13] MEDS ORDERED: ACETAMINOPHEN 500 MG TAB PO PRN (12:47)
[2017-08-13 13:54] LABS: Urine Blood TRACE (NEG); Urine Glucose NEGATIVE (NEG); Urine Protein NEGATIVE (NEG)
[2017-08-13] MEDS ORDERED: DOCUSATE NA 100 MG CAP PO PRN (14:14)
[2017-08-13] MEDS ORDERED: HOME MED 1 EA UNK (Albuterol Sulfate [Proair Respiclick] 2 PUFF) IH PRN (14:14)
[2017-08-13] MEDS ORDERED: BENZONATATE 200 MG PO PRN (14:14)
[2017-08-13] MEDS ORDERED: BENZONATATE 100 MG CAP PO PRN (14:42)
[2017-08-13] MEDS ORDERED: TIOTROPIUM (SPIRIVA) 5 SPRAYS/INHALER IH SCH (14:45)
--- NOTE | 2017-08-13 15:34 | HP ---
Date of Admission: 08/13/2017 Chief Complaint: Shortness of breath. History Of Present Illness: This is an 87-year-old female patient who recently had surgery done for a removal of the rectal mass and it turned out to be benign. Surgery was done in [place] at [facility], on August 02, 2017 and the patient says that she stayed in hospital for about days. Afte r that, she was released to go home and in last 3-4 days she is having shortness of breath and today her symptoms got worse enough that she contacted her sister who brought her to emergency room. After she was evaluated in the ER, she was diagnosed as having DVT of lower extremity as well as bilateral multiple pulmonary emboli. I saw her in the emergency room. She denies any fever, cough, cold, con gestion. No hemoptysis. No expectoration. Denies any calf pain. She is having some pain in the an terior part of the leg in the whitt area but not in the calf or thigh region. The patient does not matute ve any prior history of DVT or pulmonary embolism. Upon further questioning, the patient reports live t she did not get any injection type like Lovenox during her last hospital admission which was in [facility] on August 02, 2017. The patient has received Lovenox 1 mg/kg subcutaneous injection before I saw h er in the emergency room. Allergies: SULFA CAUSING HEADACHE, RITUXIMAB CAUSING LEG SWELLING, PROMETHAZINE CAUSING HALLUCINATIO N AND LEG JERKING AND ARM JERKING, METHOTREXATE CAUSING DYSPNEA, MESALAMINE CAUSING SORE THROAT AND H PATIENCE, ADALIMUMAB CAUSING FACE SWELLING, AND ABATACEPT CAUSING JOINT PAIN. Medications: Alprazolam 0.25 mg 2 times a day, atorvastatin 40 mg at bedtime, Benzonatate 200 mg 3 t imes a day as needed for cough, Caltrate plus D 1 tablet 2 times a day, docusate sodium 100 mg 2 time s a day as needed for constipation, famotidine 20 mg at bedtime, furosemide 20 mg 2 times a day, Hemo cyte Plus 1 tablet daily, levothyroxine 50 mcg p.o. daily, Metamucil 1 tablespoon by mouth every day mixed with 8 ounces of water, paroxetine 40 mg daily, prednisone 5 mg 2 times a day, ProAir 2 puffs e very 4 hours as needed for shortness of breath, Spiriva 1 puff daily, spironolactone 25 mg 2 times a day, Symbicort 160/4.5 mcg 2 puffs 2 times a day. Review of Systems: Respiratory: As mentioned above. All other systems reviewed and negative. Past Surgical History: Significant for hysterectomy, appendectomy, cholecystectomy, cataract surgery , and on August 02, 2017 removal of benign rectal mass. Family History: Parents of old age at 99 and 95 years. Sister with stroke, hypertension. Social History: Negative for smoking or alcohol use. Past Medical History: Lymphedema, hypothyroidism, hypertension, COPD, chronic steroid therapy, rheum atoid arthritis, and leg edema. Physical Examination: Vital Signs: When she first came in, blood pressure 123/64, pulse 120, respiratory rate 24, temperat ure 98, pulse ox 87%. Weight 48.53 kg. On 2 L nasal cannula oxygen. Oxygen saturation was 95%. Wh ezio I saw her, her oxygen saturation was around 97-98%, pulse rate around 120, blood pressure systolic was around 122. General: Awake, alert, oriented, not in distress. HEENT: Head atraumatic, normocephalic. Conjunctivae nonerythematous. Sclerae white. Mouth, no thr ush or edema noted. Ears/Nose, no mass, lesion, discharge noted. Neck: Supple. No JVD, lymph nodes, bruit, thyromegaly noted. Lungs: Bilateral good equal air entry. Clear to auscultation. No rhonchi. No rales. Heart: Normal heart sounds, no murmur or gallop. Abdomen: Soft, bowel sounds normal. No guarding, rigidity, tenderness, mass, hepatosplenomegaly, dis tention, or bruit noted. Extremities: The patient's left calf has a slight swelling with little bit firmness to the left calf compared to the right calf. Skin: No rash, ulcer, cellulitis. Lymphatics: No lymph node enlargement in neck, supraclavicular, infraclavicular region. Neuro: No focal neurological deficit. Chest: Unremarkable. External Genitalia: Deferred. Rectal: Deferred. Laboratory Data: Chest x-ray no acute cardiopulmonary changes. Venous Doppler shows left lower extr emity deep vein thrombosis along femoral and popliteal vein. Electrocardiogram showing a sinus tachy cardia, occasional premature ventricular complex, possible left atrial enlargement. CT scan of the c hest per PE protocol, shows multiple bilateral pulmonary emboli and this is extensive, bilateral pulm onary embolic disease involving bilateral lobar and segmental branches. No pulmonary hemorrhage. White count 14.6, hemoglobin 11.5, platelets 294. INR 0.92, sodium 137, potassium 3.8, chloride 103, bicarb 28, BUN 14, creatinine 0.81, glucose 100, magnesium 2, troponin 0.23. Urinalysis negative ex cept trace blood. Impression: 1.Bilateral pulmonary embolism. 2.Deep vein thrombosis, left leg. 3.Anemia. 4.Chronic obstructive pulmonary disease. 5.Chronic steroid therapy. 6.Hypertension. 7.Diverticulosis. 8.Rheumatoid arthritis. 9.Hypothyroidism. 10.Lymphedema, legs. Plan: 1.Admit patient to hospital for further evaluation and management of this problem. The patient is a ppropriate for inpatient and is expected to spend 2 midnights in hospital. We will go ahead and admi t her to ICU for close observation. Consult developing machine operator Dr. Paris. The patient will be getting Lovenox injection per order. We will keep her on a strict bedrest. Home medications will be contin ued per order and I will see her tomorrow for followup. Details and plan of treatment discussed with her. We will go ahead and give her oxygen nebulizer treatment. Continue her Symbicort inhaler per order. ARNOL/MODL Voice ID: [id number]
[2017-08-13] MEDS: ENOXAPARIN 60 MG/0.6 ML SQ SCH (16:43)
[2017-08-13] MEDS: ALPRAZOLAM 0.25 MG TABLET PO SCH (17:10)
[2017-08-13] MEDS: ALBUTEROL 2.5 MG/3 ML NEB SOL NEB PRN (20:03)
[2017-08-13] MEDS: IPRATROPIUM BROM 0.5MG/2.5ML NEB PRN (20:03)
[2017-08-13] MEDS: FAMOTIDINE 20 MG TAB PO SCH (20:25)
[2017-08-13] MEDS: predniSONE 5 MG TAB PO SCH (20:25)
[2017-08-13] MEDS: CODEINE 30MG/APAP 300MG TAB PO PRN (20:31)
[2017-08-13] MEDS: HOME MED 1 EA UNK (Budesonide/Formoterol Fumarate [Symbicort 160-4.5 Mcg Inhaler] 2 PUFF) IH SCH (21:00)
[2017-08-14] MEDS: CODEINE 30MG/APAP 300MG TAB PO PRN ×2 (02:43→20:28)
[2017-08-14] MEDS: LEVOTHYROXINE SOD 0.05 MG TABLET PO SCH (05:56)
[2017-08-14] MEDS: ENOXAPARIN 60 MG/0.6 ML SQ SCH ×2 (08:42→20:27)
[2017-08-14] MEDS: ALPRAZOLAM 0.25 MG TABLET PO SCH (08:44)
[2017-08-14] MEDS: FE SULF/FA/VIT B COMP & C TAB PO SCH (08:45)
[2017-08-14] MEDS: predniSONE 5 MG TAB PO SCH ×2 (08:45→20:28)
[2017-08-14] MEDS: CALCIUM CARB 500MG/VIT D 200 IU TAB PO SCH (08:45)
[2017-08-14] MEDS: VANCOMYCIN ORAL SOLN 250 MG/5 ML OSYR PO SCH ×4 (08:46→20:27)
[2017-08-14] MEDS: HOME MED 1 EA UNK (Budesonide/Formoterol Fumarate [Symbicort 160-4.5 Mcg Inhaler] 2 PUFF) IH SCH ×2 (09:00→21:00)
[2017-08-14] MEDS ORDERED: SPIRONOLACTONE 25 MG TABLET PO SCH (09:00)
[2017-08-14] MEDS: [UNRECOGNIZED DRUG - OTHER] PO SCH (09:00)
[2017-08-14] MEDS ORDERED: VITAMIN D3 PO SCH (09:00)
[2017-08-14] MEDS ORDERED: CALCIUM CARBONATE PO SCH (09:00)
[2017-08-14] MEDS: DEXTROSE PO SCH (09:00)
[2017-08-14] MEDS ORDERED: [UNRECOGNIZED DRUG - OTHER] PO SCH (09:00)
[2017-08-14 09:34] LABS: Absolute Lymphocytes (CBC) 2.1 K/uL (0.7-4.9); Absolute Monocytes 0.8 K/uL (0.1-1.3); Basophils % 0.2 % (0-1.3); Eosinophils % 0.4 % (0-4.4); Hematocrit 37.9 % (36.0-45.0); Lymphocytes % 9.3 % (15.3-44.8); MCH 28.2 pg (27.0-35.0); MCV 88.2 fL (80-100); MPV 7.3 fL (7.6-11.3); Monocytes % 3.5 % (3.3-12.3)
[2017-08-14 09:43] LABS: Potassium 3.8 mEq/L (3.6-5.0)
[2017-08-14 09:46] LABS: Albumin 2.7 g/dL (3.2-5.5); Bilirubin Total 1.2 mg/dL (0.3-1.2); Magnesium 1.7 mg/dL (1.8-2.5); Protein, Total 5.5 g/dL (6.0-8.3)
[2017-08-14 10:41] LABS: Anisocytosis 1+; Blood Morphology Comment NOTED (NOT SEEN); Platelet Estimate ADEQ; Urine White Blood Cell Casts OK
--- NOTE | 2017-08-14 11:29 | PN ---
Date of Progress Note: 08/14/2017 Subjective: The patient was seen this morning for followup. She was lying in bed in ICU. Her siste r was with her at bedside. The patient's vital signs reviewed. She still has shortness of breath, b ut says it is better today than yesterday. She continues to have diarrhea and her stool for C. diff, which was done today came back positive for C. diff. Physical Examination: Vital Signs: Reviewed. HEENT: Unremarkable. Lungs: Clear to auscultation. Heart: Sounds normal. Abdomen: Soft. Bowel sounds normal. No guarding, rigidity. No tenderness. Vague discomfort on ab domen. Bowel sounds normoactive. No distention. Extremities: No leg edema. Left calf exam remains unchanged from yesterday. Laboratory Data: Stool for C. diff positive. White count 23.1, hemoglobin 12.1, platelets 234. Sod ium 133, potassium 3.8, chloride 103, bicarb 23, BUN 9, creatinine 0.64, glucose 92, magnesium 1.7. Liver function tests unremarkable. Impression: 1.Bilateral multiple pulmonary emboli. 2.Deep venous thrombosis, acute, left leg. 3.Clostridium difficile colitis. 4.Hyponatremia. 5.Chronic obstructive pulmonary disease. 6.Hypomagnesemia. 7.Hypertension. Plan: We will go ahead and replace electrolytes per protocol. We will continue Lovenox. The patti torres's systolic blood pressure was around 109 this morning. Start her on some IV fluid. Follow up with memorial designer, Dr. Paris. For C. diff, the patient was started on vancomycin. We will keep her in ICU today and repeat blood work tomorrow. Depending on her condition tomorrow, we will decide if we can transfer her out of ICU or not. Details and plan of treatment discussed with her. We will ge t echo with Doppler tomorrow. Nausea medication was ordered per request. ARNOL/MODL Voice ID: [id number] Report ID: [id number]
[2017-08-14] MEDS: NA CHLORIDE 0.9% 1,000 ML IV SCH ×2 (12:06→20:31)
[2017-08-14] MEDS: ATORVASTATIN 40 MG TAB PO SCH (12:06)
[2017-08-14] MEDS ORDERED: POTASSIUM 25 MEQ EFFERV TAB PO ONE (13:00)
[2017-08-14] MEDS: ONDANSETRON 4 MG/2 ML VIAL IV PRN ×2 (13:04→17:36)
[2017-08-14] MEDS: ALBUTEROL 2.5 MG/3 ML NEB SOL NEB PRN (19:41)
[2017-08-14] MEDS: IPRATROPIUM BROM 0.5MG/2.5ML NEB PRN (19:41)
[2017-08-14] MEDS ORDERED: MAGNESIUM SULFATE 1 gm IVPB 1 GM/100 ML BAG IV ONE (20:08)
[2017-08-14] MEDS: FAMOTIDINE 20 MG TAB PO SCH (20:28)
[2017-08-14] MEDS: NA CHLORIDE 0.9% 250 ML IV PRN ×3 (20:32→22:15)
[2017-08-15] MEDS: NA CHLORIDE 0.9% 1,000 ML IV SCH ×2 (02:06→13:40)
[2017-08-15 04:46] LABS: Absolute Lymphocytes (CBC) 2.1 K/uL (0.7-4.9); Absolute Monocytes 0.9 K/uL (0.1-1.3); Absolute Neutrophil 14.8 K/uL (1.8-8.0); Basophils % 0.3 % (0-1.3); Eosinophils % 0.6 % (0-4.4); Hematocrit 32.7 % (36.0-45.0); Lymphocytes % 11.6 % (15.3-44.8); MCH 28.4 pg (27.0-35.0); MPV 6.8 fL (7.6-11.3); Monocytes % 5.1 % (3.3-12.3); RBC Red Blood Cell Count 3.72 M/uL (3.86-4.86)
[2017-08-15 05:14] LABS: Potassium 3.8 mEq/L (3.6-5.0)
[2017-08-15] MEDS: LEVOTHYROXINE SOD 0.05 MG TABLET PO SCH (05:30)
[2017-08-15 05:40] VITALS: BMI 23.3
[2017-08-15] MEDS: CODEINE 30MG/APAP 300MG TAB PO PRN ×2 (07:22→20:26)
[2017-08-15] MEDS ORDERED: POTASSIUM 25 MEQ EFFERV TAB PO ONE (08:00)
--- NOTE | 2017-08-15 08:04 | P.CNS ---
Date of Consult: 08/15/17 Reason for Consult: Pulmonary embolism Chief Complaint: Shortness of breath History of Present Illness: Patient is 87 years of age she just had rectal surgery done recently started complaining of 4 day history of shortness of breath swelling of the left leg and was found to have a DVT in the left leg and acute pulmonary bilateral embolism is ill hypertensive given some IV fluid boluses however oxygenation remained satisfactory the day she complains of some abdominal discomfort with diarrhea from C. difficile Allergies adalimumab [From Humira] Allergy (Severe, Verified 03/25/17 01:29) Anaphylaxis methotrexate [Methotrexate] Allergy (Severe, Verified 03/25/17 01:29) Shortness of breath mesalamine [From Asacol] Allergy (Intermediate, Verified 03/25/17 01:29) Hives/Rash promethazine HCl [From Phenergan] Allergy (Intermediate, Verified 03/25/17 01:29 ) Shortness of breath rituximab [From Rituxan] Allergy (Intermediate, Verified 03/25/17 01:29) Shortness of breath abatacept [From Orencia] Allergy (Unknown, Verified 03/25/17 01:29) Itching/Hives/Rash maltose [From Orencia] Allergy (Unknown, Verified 03/25/17 01:29) Itching/Hives/Rash meperidine [From Demerol] Allergy (Verified 07/05/17 13:55) Unknown Sulfazine Allergy (Intermediate, Uncoded 03/25/17 01:29) Nausea/Vomiting Home Medications: Albuterol Sulfate [Proair Respiclick] 2 puff IH QID PRN 03/24/17 Alprazolam 0.25 mg PO DAILY 03/24/17 Atorvastatin Calcium 40 mg PO NOON 03/24/17 Benzonatate 200 mg PO TID PRN 03/24/17 Budesonide/Formoterol Fumarate [Symbicort 160-4.5 Mcg Inhaler] 2 puff IH BID 01/29 Docusate Sodium 100 mg PO Q12H PRN 03/24/17 Famotidine 20 mg PO BEDTIME 03/24/17 Furosemide 20 mg PO DAILY 03/24/17 Levothyroxine [Synthroid] 50 mcg PO [id number] 03/24/17 Melatonin/Pyridoxine HCl (B6) [Melatonin 3 mg Tablet] 3 mg PO BEDTIME 03/24/17 Paroxetine HCl 40 mg PO NOON 03/24/17 Prednisone [Deltasone] 5 mg PO BID 03/24/17 Psyllium Seed/Dextrose [Fiber Powder] 2 tsp PO DAILY 03/24/17 Roflumilast [Daliresp] 500 mcg PO DAILY 03/24/17 Tiotropium [place] [Spiriva] 18 mcg IH DAILY 03/24/17 Codeine/APAP [Tylenol W/Codeine #3 tab] 1 tab PO Q6HP PRN #30 tab 03/26/17 Iron/FA/Vit B-Com W/C [Hemocyte Plus] 1 tab PO DAILY #30 tab 07/10/17 Spironolactone 25 mg PO DAILY #30 tablet 07/10/17 - Past Medical/Surgical History Diabetic: No -: COPD, chronic steroid use -: Rheumatoid arthritis -: Depression with anxiety -: Hypothyroidism -: 01/27 "heart monitor implant,(s/p loop Ling) by -: GERD with hiatal hernia -: Hypertension -: calcified granulona rt lung -: sudden loss of left eye vision. resolved on own. 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 - Family History Father Medical History: Hypertension, Cancer Notes: SKIN Sister Medical History: Hypertension, Stroke - Social History Smoking Status: Never smoker Alcohol use: No CD- Drugs: No Caffeine use: Yes Review of Systems 10-point ROS is otherwise unremarkable General: Weakness Respiratory: Shortness of Breath Gastrointestinal: Abdominal Pain, Diarrhea Physical Examination Temp Pulse Resp BP Pulse Ox 97 F 108 H 25 H 98/58 L 97 08/15/17 04:00 08/15/17 07:00 08/15/17 07:00 08/15/17 07:00 08/15/17 07:00 General: Alert, Oriented x3, Mild distress Neck: Supple Respiratory: Clear to auscultation bilaterally Cardiovascular: No edema, Regular rate/rhythm Gastrointestinal: Normal bowel sounds, Soft and benign Musculoskeletal: No clubbing, No swelling - Problems (1) Pulmonary embolism Current Visit: Yes Status: Acute Plan: Patient is 87 years of age admitted with a DVT and pulmonary embolism status post surgery to the rectum says he was performed at [facility] on August 02 and he was a benign rectal at that time she is clinically stable oxygenation satisfactory echocardiogram pending spironolactone was stopped stable to be transferred to the floor continue with Lovenox for another day possible pack changer to Xarelto Eliquis tomorrow minimum 3 months of anticoagulation chemistries reviewed white count is declining C. difficile positive Qualifiers: Chronicity: acute
[2017-08-15] MEDS: VANCOMYCIN ORAL SOLN 250 MG/5 ML OSYR PO SCH ×4 (08:18→20:25)
[2017-08-15] MEDS: ALPRAZOLAM 0.25 MG TABLET PO SCH (08:18)
[2017-08-15] MEDS: CALCIUM CARB 500MG/VIT D 200 IU TAB PO SCH (08:19)
[2017-08-15] MEDS: FE SULF/FA/VIT B COMP & C TAB PO SCH (08:19)
[2017-08-15] MEDS: ENOXAPARIN 60 MG/0.6 ML SQ SCH (08:19)
[2017-08-15] MEDS: HOME MED 1 EA UNK (Budesonide/Formoterol Fumarate [Symbicort 160-4.5 Mcg Inhaler] 2 PUFF) IH SCH ×2 (08:22→20:28)
[2017-08-15] MEDS: DEXTROSE PO SCH (08:23)
[2017-08-15] MEDS: [UNRECOGNIZED DRUG - OTHER] PO SCH (08:23)
[2017-08-15] MEDS: predniSONE 5 MG TAB PO SCH ×2 (08:58→20:26)
[2017-08-15] MEDS: ATORVASTATIN 40 MG TAB PO SCH (12:00)
--- NOTE | 2017-08-15 12:26 | ECHO ---
HEIGHT: 4 ft 11 in WEIGHT: 115 lb 4.8 oz DATE OF STUDY: 08/15/[address]: Hasmukh Pollock MD 2-DIMENSIONAL: YES M.MODE: YES DOPPLER: YES COLOR FLOW: YES TDS: NO PORTABLE: NO DEFINITY: NO BUBBLE STUDY: NO DIAGNOSIS: PLEURAL EFFUSION CARDIAC HISTORY: CATHERIZATION: NO SURGERY: NO PROSTHETIC VALVE: NO PACEMAKER: NO MEASUREMENTS (cm) DIASTOLIC (NORMALS) SYSTOLIC (NORMALS) IVSd 1.3 (0.6-1.2) LA Diam (1.9-4.0) LVEF 69% LVIDd 3.3 (3.5-5.7) LVIDs 2.1 (2.0-3.5) %FS 38% LVPWd 1.3 (0.6-1.2) Ao Diam 3.0 (2.0-3.7) 2 DIMENSIONAL ASSESSMENT: RIGHT ATRIUM: DILATED LEFT ATRIUM: DILATED RIGHT VENTRICLE: NORMAL LEFT VENTRICLE: LEFT VENTRICULAR HYPERTENSION TRICUSPID VALVE: NORMAL MITRAL VALVE: MITRAL ANNULAR CALCIFICATION, HEAVY PULMONIC VALVE: NORMAL AORTIC VALVE: MILD SCLEROSIS PERICARDIAL EFFUSION: NONE AORTIC ROOT: NORMAL LEFT VENTRICULAR WALL MOTION: NORMAL DOPPLER/COLOR FLOW: MILD TO MODERATE TRICUSPID REGURGITATION. MODERATE PULMONARY HYPERTENSION. ESTIMATED RIGHT VENTRICULAR SYSTOLIC PRESSURE 50-55mmHg. IMPAIRED LEFT VENTRICULAR RELAXATION. COMMENTS: NORMAL LEFT VENTRICULAR EJECTION FRACTION. LEFT VENTRICULAR HYPERTENSION. DILATED LEFT AND RIGHT ATRIUM. MITRAL ANNULAR CALCIFICATION. AORTIC SCLEROSIS WITH NO AORTIC STENOSIS OR AORTIC REGURGITATION. MILD TO MODERATE TRICUSPID REGURGITATION. MODERATE PULMONARY HYPERTENSION. TECHNOLOGIST: Johnnie MORAN
[2017-08-15] MEDS: FAMOTIDINE 20 MG TAB PO SCH (20:26)
[2017-08-15] MEDS ORDERED: ENOXAPARIN 60 MG/0.6 ML SQ SCH (21:00)
--- NOTE | 2017-08-16 00:18 | PN ---
Date of Progress Note: 08/15/2017 Subjective: The patient was seen this morning for followup. She was lying in bed in ICU. No new co mplaints, problems reported by her. Diarrhea still continue. Shortness of breath has remained uncha nged from yesterday. Intake, output records reviewed. Objective: Vital signs: Reviewed. HEENT: Unremarkable. Lungs: Clear to auscultation. No rhonchi. No rales. Heart: Sounds normal. Abdomen: Soft, bowel sounds normal. No guarding, rigidity, tenderness, or distention. Extremities: No leg edema. Left calf finding remains unchanged which is little firmness to the left calf compared to the right calf, unchanged from last 2 days. Laboratory Data: White count 18 better than yesterday. Hemoglobin 10.6, platelets 282. Sodium 134, potassium 3.8, chloride 104, bicarb 26, BUN 14, creatinine 0.70, glucose 104, magnesium 2. Impression: 1.Bilateral pulmonary emboli. 2.Acute deep venous thrombosis, left leg. 3.Clostridium difficile colitis. 4.Anemia. 5.Chronic obstructive pulmonary disease. Plan: We will continue current medications. Continue vancomycin. Continue anticoagulant medication per order. IV fluid per order. Continue to follow with Dr. Paris and the patient will be transf erred to medical floor when okay with Dr. Paris. Details and plan of treatment discussed with the patient and I will repeat blood work tomorrow morning. ARNOL/MODL Voice ID: [id number] Report ID: [id number]
[2017-08-16] MEDS: NA CHLORIDE 0.9% 1,000 ML IV SCH ×2 (03:00→05:45)
[2017-08-16 04:42] LABS: Magnesium 1.9 mg/dL (1.8-2.5); Potassium 4.3 mEq/L (3.6-5.0)
[2017-08-16] MEDS: LEVOTHYROXINE SOD 0.05 MG TABLET PO SCH (05:40)
[2017-08-16] MEDS: [UNRECOGNIZED DRUG - OTHER] PO SCH (09:00)
[2017-08-16] MEDS: DEXTROSE PO SCH (09:00)
[2017-08-16] MEDS: HOME MED 1 EA UNK (Budesonide/Formoterol Fumarate [Symbicort 160-4.5 Mcg Inhaler] 2 PUFF) IH SCH ×2 (09:00→20:43)
[2017-08-16] MEDS: CALCIUM CARB 500MG/VIT D 200 IU TAB PO SCH (09:52)
[2017-08-16] MEDS: FE SULF/FA/VIT B COMP & C TAB PO SCH (09:52)
[2017-08-16] MEDS: VANCOMYCIN ORAL SOLN 250 MG/5 ML OSYR PO SCH ×4 (09:52→20:39)
[2017-08-16] MEDS: predniSONE 5 MG TAB PO SCH ×2 (09:53→20:40)
[2017-08-16] MEDS: ALPRAZOLAM 0.25 MG TABLET PO SCH (09:53)
[2017-08-16] MEDS: RIVAROXABAN 15 MG TABLET PO SCH ×2 (09:53→20:39)
[2017-08-16] MEDS: CODEINE 30MG/APAP 300MG TAB PO PRN ×2 (10:41→20:40)
[2017-08-16] MEDS: ATORVASTATIN 40 MG TAB PO SCH (12:53)
[2017-08-16] MEDS: FAMOTIDINE 20 MG TAB PO SCH (20:39)
--- NOTE | 2017-08-16 23:58 | PN ---
Date of Progress Note: 08/16/2017 Subjective: The patient was seen this morning for followup, no new complaints or problems reported b y her. She was noted to be walking in the room without difficulty. Her abdominal discomfort is pres ent, but better than before. Shortness of breath is present with activity, but better than before as she reported. Objective: Vital Signs: Reviewed. HEENT: Examination unremarkable. Lungs: Clear to auscultation. Heart: Sounds normal. Abdomen: Soft, bowel sounds normal. No guarding, rigidity, or distention. Presence of vague discom fort with palpation. No rebound tenderness. Extremities: No leg edema, but left calf, vague fullness or firmness has not changed any. Laboratory Data: Sodium 135, potassium 4.3, chloride 104, bicarb 26, BUN 10, creatinine 0.63, glucos e 108, and magnesium 1.9. Diagnostic Data: Echocardiogram shows normal ejection fraction, moderate pulmonary hypertension, imp aired left ventricular relaxation. Impression: 1.Bilateral pulmonary emboli. 2.Acute deep venous thrombosis, left leg. 3.Clostridium difficile colitis. 4.Chronic obstructive pulmonary disease. 5.Anemia. 6.Lymphedema, legs. We will continue anticoagulant therapy. Dr. Prais is going to change from Lovenox to oral anticoa gulant therapy. Depending on the patient's condition, we will decide regarding plan for discharge in the next day or 2 days. We will see her tomorrow for followup. ARNOL/MODL Voice ID: [id number] Report ID: [id number]
[2017-08-17 05:23] LABS: Absolute Lymphocytes (CBC) 1.6 K/uL (0.7-4.9); Absolute Monocytes 0.4 K/uL (0.1-1.3); Absolute Neutrophil 4.3 K/uL (1.8-8.0); Basophils % 0.4 % (0-1.3); Eosinophils % 0.7 % (0-4.4); Hematocrit 30.4 % (36.0-45.0); Lymphocytes % 24.7 % (15.3-44.8); MCH 29.8 pg (27.0-35.0); MCV 86.8 fL (80-100); Monocytes % 6.7 % (3.3-12.3)
[2017-08-17 05:45] LABS: Magnesium 1.8 mg/dL (1.8-2.5); Potassium 4.3 mEq/L (3.6-5.0)
[2017-08-17] MEDS: LEVOTHYROXINE SOD 0.05 MG TABLET PO SCH (06:04)
[2017-08-17] MEDS ORDERED: MAGNESIUM SULFATE 1 gm IVPB 1 GM/100 ML BAG IV ONE (06:05)
--- NOTE | 2017-08-17 07:44 | P.PN ---
Subjective Date of Service: 08/16/17 Chief Complaint: Pulmonary embolism Subjective: Improving (Patient is improving but weak not ambulating shortness of breath has improved) Review of Systems General: Weakness Respiratory: Shortness of Breath Physical Examination - Vital Signs Temperature: 97.4 F Blood Pressure: 142/76 Pulse: 88 Respirations: 18 Pulse Ox (%): 98 - Physical Exam General: Alert, Oriented x3 Neck: Supple Respiratory: Clear to auscultation bilaterally Cardiovascular: No edema, Regular rate/rhythm, Edema (Still has some edema of the left leg) Assessment & Plan - Problems (Diagnosis) (1) Pulmonary embolism Onset Date: 08/15/17 Current Visit: Yes Status: Acute Plan: Patient admitted with bilateral pulmonary embolism clinically stable oxygenation satisfactory she does not qualify for home oxygen plan to ambulate patient discuss with the pharmacy patient Xarelto patch is covered recommend treatment for a total of 3 months 15 mg twice a day for 3 weeks and then 20 mg once a day of severe [place] labs reviewed white count is back to normal Dc IV fluids echocardiogram shows normal right ventricle moderate pulmonary hypertension she also has underlying COPD stool is C. difficile positive responding to oral vancomycin Qualifiers: Chronicity: acute
[2017-08-17] MEDS: FE SULF/FA/VIT B COMP & C TAB PO SCH (08:44)
[2017-08-17] MEDS: ALPRAZOLAM 0.25 MG TABLET PO SCH (08:44)
[2017-08-17] MEDS: RIVAROXABAN 15 MG TABLET PO SCH ×2 (08:44→21:10)
[2017-08-17] MEDS: predniSONE 5 MG TAB PO SCH ×2 (08:44→21:10)
[2017-08-17] MEDS: VANCOMYCIN ORAL SOLN 250 MG/5 ML OSYR PO SCH ×4 (08:44→21:10)
[2017-08-17] MEDS: CALCIUM CARB 500MG/VIT D 200 IU TAB PO SCH (08:44)
[2017-08-17] MEDS: DEXTROSE PO SCH (08:45)
[2017-08-17] MEDS: [UNRECOGNIZED DRUG - OTHER] PO SCH (08:45)
[2017-08-17] MEDS: HOME MED 1 EA UNK (Budesonide/Formoterol Fumarate [Symbicort 160-4.5 Mcg Inhaler] 2 PUFF) IH SCH ×2 (08:45→21:00)
[2017-08-17] MEDS: ATORVASTATIN 40 MG TAB PO SCH (13:13)
--- NOTE | 2017-08-17 19:22 | PN ---
Date of Progress Note: 08/17/2017 Subjective: The patient was seen this morning for followup. No new complaints or problems reported by her. Still has some soreness in abdomen, which is getting better on a day-to-day basis. Her shor tness of breath is getting better. Objective: Vital Signs: Reviewed. HEENT: Unremarkable. Lungs: Clear to auscultation. Heart: Heart sounds normal. Abdomen: Soft, bowel sounds normal. No guarding, rigidity, tenderness, or distention. Extremities: No leg edema. Laboratory Data: White count 6.4, hemoglobin 10.4, platelets 291. Sodium 138, potassium 4.3, chlori de 106, bicarb 29, BUN 7, creatinine 0.72, glucose 102, magnesium 1.8. Impression: 1.Bilateral pulmonary emboli. 2.Acute deep venous thrombosis, left leg. 3.Clostridium difficile colitis. 4.Chronic obstructive pulmonary disease. 5.Hypertension. 6.Anemia. Plan: We will continue current medications. Continue Xarelto 15 mg twice a day. Continue vancomyci n per order. Physical Therapy to help ambulate the patient. We will evaluate the patient to see if she needs home oxygen or not, and if she needs it then we will make arrangements for it. Social Service was consulted for discharge planning with possibility of dischar ge tomorrow. ARNOL/MODL Voice ID: [id number] Report ID: [id number]
[2017-08-17] MEDS: FAMOTIDINE 20 MG TAB PO SCH (21:10)
[2017-08-17] MEDS: CODEINE 30MG/APAP 300MG TAB PO PRN (21:18)
[2017-08-18 04:25] LABS: Potassium 3.9 mEq/L (3.6-5.0)
[2017-08-18] MEDS ORDERED: POTASSIUM CL SA 10 MEQ TAB PO ONE (05:49)
[2017-08-18] MEDS: LEVOTHYROXINE SOD 0.05 MG TABLET PO SCH (06:32)
[2017-08-18 08:13] VITALS: BP 163/84; TEMP 97.9
[2017-08-18] MEDS: DEXTROSE PO SCH (08:20)
[2017-08-18] MEDS: [UNRECOGNIZED DRUG - OTHER] PO SCH (08:20)
[2017-08-18] MEDS: HOME MED 1 EA UNK (Budesonide/Formoterol Fumarate [Symbicort 160-4.5 Mcg Inhaler] 2 PUFF) IH SCH (08:21)
[2017-08-18] MEDS: CALCIUM CARB 500MG/VIT D 200 IU TAB PO SCH (08:23)
[2017-08-18] MEDS: VANCOMYCIN ORAL SOLN 250 MG/5 ML OSYR PO SCH (08:23)
[2017-08-18] MEDS: FE SULF/FA/VIT B COMP & C TAB PO SCH (08:23)
[2017-08-18] MEDS: predniSONE 5 MG TAB PO SCH (08:23)
[2017-08-18] MEDS: RIVAROXABAN 15 MG TABLET PO SCH (08:24)
[2017-08-18] MEDS: ALPRAZOLAM 0.25 MG TABLET PO SCH (08:24)
[2017-08-18 08:31] VITALS: O2SAT 95
--- NOTE | 2017-08-21 16:36 | DS ---
Date of Discharge: 08/18/2017 Disposition: Discharged to go home. Physical Examination: HEENT: Unremarkable. Lungs: Clear to auscultation. Heart: Sounds normal. Abdomen: Soft. Bowel sounds normal. No guarding, rigidity, tenderness, or distention. Extremities: No leg edema. Discharge Medications: 1.Continue all prior home medications. 2.Do not take any aspirin, Aleve, Motrin type of medications. 3.Take Xarelto 15 mg p.o. 2 times a day for 21 days, then stop this dose, and start Xarelto 20 mg 1 tablet by mouth daily in the evening with dinner. 4.Follow up at my office in 2 weeks. 5.Take vancomycin 125 mg p.o. 4 times a day for 10 days. Labs Done During This Hospitalization: Initial white count 14.6, highest white count 23.1, last whit e count 6.4. Initial hemoglobin 11.5, lowest hemoglobin on 08/17/2017 of 10.4. Platelet count saúl l at 295 on 08/17/2017. Her last chemistry on day of discharge; sodium 135, potassium 3.9, chloride 101, bicarb 30, BUN 6, creatinine 0.69, glucose 114. The patient's venous Doppler of lower extremity shows left lower extremity deep vein thrombosis involving femoral and popliteal vein. CT scan of th e chest per PE protocol shows bilateral multiple pulmonary emboli. Echocardiogram shows normal eject ion fraction of 69%, impaired left ventricular relaxation, [id number] tricuspid regurgitation, moderate pulmonary hypertension. Hospital Course: An 87-year-old female patient admitted to the hospital after she came into emergenc y room with shortness of breath complaint. Please see dictated H and P for more information. The kiel srinivasan was evaluated in the emergency room and was diagnosed as having left leg acute DVT and multiple pulmonary emboli in both lungs. Hemodynamically, she was stable. [facility] Pulmonary consultation was obtained from Dr. Paris and the patient started on Lovenox. She tolerated that very well and did not have any problem tolerating anticoagulation therapy. Initia lly, she was strict bedrest. She was admitted to intensive care unit and once her condition was stab le, we transferred her out of ICU to regular room. After initial 2 or 3 days of Lovenox therapy, she was changed over to Xarelto 15 mg p.o. twice a day. She tolerated that very well. Physical Therapy was consulted. The patient started ambulating well. The patient did not qualify for home oxygen. She had diarrhea problem and stool came back positive for C. diff and she was started on vancomycin 1 25 mg by mouth 4 times a day. She tolerated that very well and her diarrhea improved. White count i mproved back to normal. The patient was made aware of importance of body fluid precaution, strict matute nd washing, isolation, etc. She lives at [facility]. The patient tolerated d iet very well, started to ambulate well, and was discharged to go home in stable condition with above -mentioned medications and instructions. Final Diagnoses: 1.Bilateral pulmonary embolism. 2.Deep vein thrombosis, acute, left leg. 3.Clostridium difficile colitis. 4.Anemia. 5.Chronic obstructive pulmonary disease. 6.Chronic steroid therapy. 7.Hypertension. 8.Diverticulosis. 9.Rheumatoid arthritis. 10.Hypothyroidism. 11.Lymphedema, legs. ARNOL/MODL Voice ID: [id number] Report ID: [id number]
== END 2017-08-18 10:56 | disposition home health service (06) | DRG 176 ==
LOC: ER 09:44 → ERHOLD 12:40 → 3RD-ICU 13:54 → 4TH 08-15 11:05
PROVIDERS: ADMIT Internal Medicine; ATTEND Internal Medicine
DX: I26.99 Other pulmonary embolism without acute cor pulmonale (principal); I82.412 Acute embolism and thrombosis of left femoral vein; I82.432 Acute embolism and thrombosis of left popliteal vein; A04.72 Enterocolitis due to Clostridium difficile, not specified as recurrent; E87.1 Hypo-osmolality and hyponatremia; D64.9 Anemia, unspecified; J44.9 Chronic obstructive pulmonary disease, unspecified; Z79.52 Long term (current) use of systemic steroids; I10 Essential (primary) hypertension; K57.90 Diverticulosis of intestine, part unspecified, without perforation or abscess without bleeding; M06.9 Rheumatoid arthritis, unspecified; E03.9 Hypothyroidism, unspecified; I89.0 Lymphedema, not elsewhere classified; E83.42 Hypomagnesemia; Z88.2 Allergy status to sulfonamides
CPT/HCPCS: 36415; 71045; 71275; 80048; 80053; 81003; 83605; 83735; 84484; 85025; 85610; 87040; 87493; 93005; 93306; 93971; 94640; 96372; 97163; 99285; J1650; J2405; J3475; J7030; J7512; Q9967

== ENCOUNTER 2017-09-12 16:02 | Inpatient (IN) | payer OTHER ==
--- OUTSIDE RECORDS SUMMARY | 2017-09-12 16:05 | XMS REPORT | Clinical Summary ---
:1930 Author Organization [employer] Address [address] [place] [address] Care Team Providers Name Role Phone Asked, [...] Hiatal hernia ( Primary RPratima, Dx) after 09/11/2016 Family History Medical History Relation Name Comments [...] Taken Blood Pressure 154/73 04/19/2017 11:52 AM DIGITAL ADVISOR Pulse 101 04/19/2017 1:00 PM DIGITAL ADVISOR Temperature 36.7 C (98 F) 04/19/2017 11:52 AM DIGITAL ADVISOR Respiratory Rate 20 04/19/2017 1:00 PM DIGITAL ADVISOR Oxygen Saturation 96% 04/19/2017 2:33 PM DIGITAL ADVISOR Inhaled Oxygen Concentration - - Weight 54.4 kg (120 lb) 04/12/2017 12:01 PM DIGITAL ADVISOR Height 149.9 cm (4' 11") 04/12/2017 12:01 PM DIGITAL ADVISOR Body Mass Index 24.24 04/12/2017 12:01 PM DIGITAL ADVISOR Plan of Treatment Health Maintenance Due Date Last Done Comments SHINGRIX VACCINE (#1) 1981 ZOSTER VACCINE 1991 PNEUMOCOCCAL POLYSACCHARIDE VACCINE AGE 65 AND OVER 1996 PNEUMOCOCCAL-13 1996 INFLUENZA VACCINE 10/12/2017 Implants Implanted Type Area System Consultant Device Identifier Expiration Date Model / Serial / Lot Reveal Linq-02/02/2016 Implanted: Qty: 1 on 02/02/2016 Procedures Procedure Name Priority Date/Time Associated Comments Diagnosis US DUPLEX VENOUS Routine 04/19/2017 11:11 AM Results for this LOWER EXTREMITY DIGITAL ADVISOR procedure are in BILATERAL the results section. ESTIMATED GFR Routine 04/19/2017 4:00 AM Results for this DIGITAL ADVISOR procedure are in the results section. PHOSPHORUS LEVEL Routine 04/19/2017 4:00 AM Results for this DIGITAL ADVISOR procedure are in the results section. MAGNESIUM LEVEL Routine 04/19/2017 4:00 AM Results for this DIGITAL ADVISOR procedure are in the results section. BASIC METABOLIC Routine 04/19/2017 4:00 AM Results for this PANEL DIGITAL ADVISOR procedure are in the results section. HC COMPLETE BLD Routine 04/19/2017 3:45 AM Results for this COUNT W/AUTO DIFF DIGITAL ADVISOR procedure are in the results section. MAGNESIUM LEVEL Routine 04/18/2017 4:00 AM Results for this DIGITAL ADVISOR procedure are in the results section. ESTIMATED GFR Routine 04/18/2017 4:00 AM Results for this DIGITAL ADVISOR procedure are in the results section. PHOSPHORUS LEVEL Routine 04/18/2017 4:00 AM Results for this DIGITAL ADVISOR procedure are in the results section. HC COMPLETE BLD Routine 04/18/2017 4:00 AM Results for this COUNT W/AUTO DIFF DIGITAL ADVISOR procedure are in the results section. BASIC METABOLIC Routine 04/18/2017 4:00 AM Results for this PANEL DIGITAL ADVISOR procedure are in the results section. XR ABDOMEN 1 VW STAT 04/17/2017 1:00 PM Results for this PORTABLE DIGITAL ADVISOR procedure are in the results section. ESTIMATED GFR Routine 04/17/2017 4:00 AM Results for this DIGITAL ADVISOR procedure are in the results section. PHOSPHORUS LEVEL Routine 04/17/2017 4:00 AM Results for this DIGITAL ADVISOR procedure are in the results section. HC COMPLETE BLD Routine 04/17/2017 4:00 AM Results for this COUNT W/AUTO DIFF DIGITAL ADVISOR procedure are in the results section. BASIC METABOLIC Routine 04/17/2017 4:00 AM Results for this PANEL DIGITAL ADVISOR procedure are in the results section. XR ABDOMEN 2 VW AP W STAT 04/16/2017 9:23 AM Results for this UPRIGHT AND/OR DIGITAL ADVISOR procedure are in DECUBITUS the results section. HC COMPLETE BLD Routine 04/16/2017 4:15 AM Results for this COUNT W/AUTO DIFF DIGITAL ADVISOR procedure are in the results section. ESTIMATED GFR Routine 04/16/2017 4:00 AM Results for this DIGITAL ADVISOR procedure are in the results section. MAGNESIUM LEVEL Routine 04/16/2017 4:00 AM Results for this DIGITAL ADVISOR procedure are in the results section. PHOSPHORUS LEVEL Routine 04/16/2017 4:00 AM Results for this DIGITAL ADVISOR procedure are in the results section. BASIC METABOLIC Routine 04/16/2017 4:00 AM Results for this PANEL DIGITAL ADVISOR procedure are in the results section. XR ABDOMEN 1 VW STAT 04/15/2017 7:50 AM Results for this PORTABLE DIGITAL ADVISOR procedure are in the results section. ESTIMATED GFR Routine 04/15/2017 4:00 AM Results for this DIGITAL ADVISOR procedure are in the results section. PHOSPHORUS LEVEL Routine 04/15/2017 4:00 AM Results for this DIGITAL ADVISOR procedure are in the results section. MAGNESIUM LEVEL Routine 04/15/2017 4:00 AM Results for this DIGITAL ADVISOR procedure are in the results section. HC COMPLETE BLD Routine 04/15/2017 4:00 AM Results for this COUNT W/AUTO DIFF DIGITAL ADVISOR procedure are in the results section. BASIC METABOLIC Routine 04/15/2017 4:00 AM Results for this PANEL DIGITAL ADVISOR procedure are in the results section. HC COMPLETE BLD Routine 04/14/2017 4:10 AM Results for this COUNT W/AUTO DIFF DIGITAL ADVISOR procedure are in the results section. ESTIMATED GFR Routine 04/14/2017 4:00 AM Results for this DIGITAL ADVISOR procedure are in the results section. BASIC METABOLIC Routine 04/14/2017 4:00 AM Results for this PANEL DIGITAL ADVISOR procedure are in the results section. ECG 12-LEAD STAT 04/13/2017 4:43 AM Results for this DIGITAL ADVISOR procedure are in the results section. ESTIMATED GFR Routine 04/13/2017 3:44 AM Results for this DIGITAL ADVISOR procedure are in the results section. BASIC METABOLIC Routine 04/13/2017 3:44 AM Results for this PANEL DIGITAL ADVISOR procedure are in the results section. HC COMPLETE BLD Routine 04/13/2017 3:00 AM Results for this COUNT W/AUTO DIFF DIGITAL ADVISOR procedure are in the results section. XR CHEST 1 VW STAT 04/12/2017 3:48 PM Results for this PORTABLE DIGITAL ADVISOR procedure are in the results section. CENTRAL LINE Routine 04/12/2017 2:01 PM DIGITAL ADVISOR Procedure Note - Madhu Monsivais MD - 04/12/2017 2:00 PM DIGITAL ADVISOR Central line Performed by: MADHU MONSIVAIS Authorized [...] the procedure well with no immediate complications FL AN ELECTIVE ENDOTRACHEAL AIRWAY Routine 04/12/2017 1:58 PM DIGITAL ADVISOR Procedure Note - Madhu Monsivais MD - 04/12/2017 1:58 PM DIGITAL ADVISOR Airway Performed by: MADHU MONSIVAIS Authorized by: [...] No Number of Attempts at Approach: 1 REPAIR, HIATAL HERNIA, 04/12/2017 1:30 PM Hiatal hernia LAPAROSCOPIC DIGITAL ADVISOR PREPARE FRESH FROZEN Timed 04/12/2017 4:00 AM PLASMA DIGITAL ADVISOR PREPARE RBC Timed 04/12/2017 4:00 AM DIGITAL ADVISOR ESTIMATED GFR Routine 04/12/2017 4:00 AM Results for this DIGITAL ADVISOR procedure are in the results section. TYPE AND SCREEN Timed 04/12/2017 4:00 AM Results for this DIGITAL ADVISOR procedure are in the results section. PARTIAL THROMBOPLASTIN Routine 04/12/2017 4:00 AM Results for this TIME (PTT) DIGITAL ADVISOR procedure are in the results section. PROTHROMBIN TIME WITH Routine 04/12/2017 4:00 AM Results for this INR DIGITAL ADVISOR procedure are in the results section. BASIC METABOLIC PANEL Routine 04/12/2017 4:00 AM Results for this DIGITAL ADVISOR procedure are in the results section. HC COMPLETE BLD COUNT Routine 04/12/2017 4:00 AM Results for this W/AUTO DIFF DIGITAL ADVISOR procedure are in the results section. XR CHEST 2 VW Routine 04/11/2017 7:49 PM Results for this DIGITAL ADVISOR procedure are in the results section. VANCOMYCIN LEVEL, TROUGH Timed 04/11/2017 3:00 PM Results for this DIGITAL ADVISOR procedure are in the results section. GRAM STAIN Routine 04/11/2017 10:00 AM Results for this DIGITAL ADVISOR procedure are in the results section. SPUTUM CULTURE Routine 04/11/2017 10:00 AM Results for this DIGITAL ADVISOR procedure are in the results section. ESTIMATED GFR Routine 04/11/2017 4:15 AM Results for this DIGITAL ADVISOR procedure are in the results section. BASIC METABOLIC PANEL Routine 04/11/2017 4:15 AM Results for this DIGITAL ADVISOR procedure are in the results section. HC COMPLETE BLD COUNT Routine 04/11/2017 4:15 AM Results for this W/AUTO DIFF DIGITAL ADVISOR procedure are in the results section. ESTIMATED GFR Routine 04/10/2017 4:15 AM Results for this DIGITAL ADVISOR procedure are in the results section. BASIC METABOLIC PANEL Routine 04/10/2017 4:15 AM Results for this DIGITAL ADVISOR procedure are in the results section. HC COMPLETE BLD COUNT Routine 04/10/2017 4:15 AM Results for this W/AUTO DIFF DIGITAL ADVISOR procedure are in the results section. ESTIMATED GFR Routine 04/09/2017 4:51 AM Results for this DIGITAL ADVISOR procedure are in the results section. BASIC METABOLIC PANEL Routine 04/09/2017 4:51 AM Results for this DIGITAL ADVISOR procedure are in the results section. HC COMPLETE BLD COUNT Routine 04/09/2017 4:51 AM Results for this W/AUTO DIFF DIGITAL ADVISOR procedure are in the results section. CT CHEST WO CONTRAST Routine 04/08/2017 8:17 PM Results for this DIGITAL ADVISOR procedure are in the results section. RESPIRATORY PATHOGEN Routine 04/08/2017 10:25 AM Results for this PANEL DIGITAL ADVISOR procedure are in the results section. XR CHEST 2 VW STAT 04/08/2017 9:36 AM Results for this DIGITAL ADVISOR procedure are in the results section. URINALYSIS SCREEN AND Routine 04/08/2017 8:33 AM Results for this MICROSCOPY, WITH REFLEX DIGITAL ADVISOR procedure are in TO CULTURE the results section. URINE CULTURE Routine 04/08/2017 8:33 AM Results for this DIGITAL ADVISOR procedure are in the results section. BLOOD CULTURE, AEROBIC & Routine 04/08/2017 8:18 AM Results for this ANAEROBIC DIGITAL ADVISOR procedure are in the results section. BLOOD CULTURE, AEROBIC & Routine 04/08/2017 8:16 AM Results for this ANAEROBIC DIGITAL ADVISOR procedure are in the results section. ESTIMATED GFR Routine 04/08/2017 8:00 AM Results for this DIGITAL ADVISOR procedure are in the results section. COMPREHENSIVE METABOLIC Routine 04/08/2017 8:00 AM Results for this PANEL DIGITAL ADVISOR procedure are in the results section. HC COMPLETE BLD COUNT Routine 04/08/2017 8:00 AM Results for this W/AUTO DIFF DIGITAL ADVISOR procedure are in the results section. HC COMPLETE BLD COUNT Routine 04/07/2017 5:00 AM Results for this W/AUTO DIFF DIGITAL ADVISOR procedure are in the results section. ESTIMATED GFR Routine 04/07/2017 4:00 AM Results for this DIGITAL ADVISOR procedure are in the results section. BASIC METABOLIC PANEL Routine 04/07/2017 4:00 AM Results for this DIGITAL ADVISOR procedure are in the results section. CLOSTRIDIUM DIFFICILE Routine 04/06/2017 1:15 PM Results for this TOXIN DIGITAL ADVISOR procedure are in the results section. HC COMPLETE BLD COUNT Routine 04/06/2017 5:15 AM Results for this W/AUTO DIFF DIGITAL ADVISOR procedure are in the results section. ESTIMATED GFR Routine 04/06/2017 4:00 AM Results for this DIGITAL ADVISOR procedure are in the results section. BASIC METABOLIC PANEL Routine 04/06/2017 4:00 AM Results for this DIGITAL ADVISOR procedure are in the results section. HC COMPLETE BLD COUNT Routine 04/05/2017 5:45 AM Results for this W/AUTO DIFF DIGITAL ADVISOR procedure are in the results section. ESTIMATED GFR Routine 04/05/2017 4:00 AM Results for this DIGITAL ADVISOR procedure are in the results section. BASIC METABOLIC PANEL Routine 04/05/2017 4:00 AM Results for this DIGITAL ADVISOR procedure are in the results section. HC COMPLETE BLD COUNT Routine 04/04/2017 4:48 AM Results for this W/AUTO DIFF DIGITAL ADVISOR procedure are in the results section. ESTIMATED GFR Routine 04/04/2017 4:00 AM Results for this DIGITAL ADVISOR procedure are in the results section. BASIC METABOLIC PANEL Routine 04/04/2017 4:00 AM Results for this DIGITAL ADVISOR procedure are in the results section. HC COMPLETE BLD COUNT Routine 04/03/2017 5:23 AM Results for this W/AUTO DIFF DIGITAL ADVISOR procedure are in the results section. ESTIMATED GFR Routine 04/03/2017 4:00 AM Results for this DIGITAL ADVISOR procedure are in the results section. HEPATIC FUNCTION PANEL Routine 04/03/2017 4:00 AM Results for this DIGITAL ADVISOR procedure are in the results section. C-REACTIVE PROTEIN Routine 04/03/2017 4:00 AM Results for this DIGITAL ADVISOR procedure are in the results section. PREALBUMIN LEVEL Routine 04/03/2017 4:00 AM Results for this DIGITAL ADVISOR procedure are in the results section. BASIC METABOLIC PANEL Routine 04/03/2017 4:00 AM Results for this DIGITAL ADVISOR procedure are in the results section. NM MYOCARDIAL PERFUSION Routine 04/02/2017 9:47 AM Results for this STRESS ONLY DIGITAL ADVISOR procedure are in the results section. CV STRESS TEST NUCLEAR Routine 04/02/2017 9:47 AM Results for this CARDIO DIGITAL ADVISOR procedure are in the results section. ECG 12-LEAD STAT 04/02/2017 6:09 AM Results for this DIGITAL ADVISOR procedure are in the results section. ESTIMATED GFR Routine 04/02/2017 5:30 AM Results for this DIGITAL ADVISOR procedure are in the results section. ALPHA-1 ANTITRYPSIN Routine 04/02/2017 5:30 AM Results for this LEVEL DIGITAL ADVISOR procedure are in the results section. BASIC METABOLIC PANEL Routine 04/02/2017 5:30 AM Results for this DIGITAL ADVISOR procedure are in the results section. HC COMPLETE BLD COUNT Routine 04/02/2017 5:30 AM Results for this W/AUTO DIFF DIGITAL ADVISOR procedure are in the results section. ECHOCARDIOGRAM 2D Routine 04/01/2017 4:35 PM Results for this COMPLETE W MMODE DIGITAL ADVISOR procedure are in SPECTRAL COLOR DOPPLER the results (46620) section. US CAROTID DUPLEX Routine 04/01/2017 4:08 PM Results for this BILATERAL DIGITAL ADVISOR procedure are in the results section. XR CHEST 2 VW Routine 04/01/2017 9:42 AM Results for this DIGITAL ADVISOR procedure are in the results section. ESTIMATED GFR Routine 03/31/2017 11:58 PM Results for this DIGITAL ADVISOR procedure are in the results section. COMPREHENSIVE METABOLIC Routine 03/31/2017 11:58 PM Results for this PANEL DIGITAL ADVISOR procedure are in the results section. PARTIAL THROMBOPLASTIN Routine 03/31/2017 11:58 PM Results for this TIME (PTT) DIGITAL ADVISOR procedure are in the results section. PROTHROMBIN TIME WITH Routine 03/31/2017 11:58 PM Results for this INR DIGITAL ADVISOR procedure are in the results section. HC COMPLETE BLD COUNT Routine 03/31/2017 11:58 PM Results for this W/AUTO DIFF DIGITAL ADVISOR procedure are in the results section. CT HEAD EXTERNAL STUDY Routine 03/25/2017 5:50 PM Results for this DIGITAL ADVISOR procedure are in the results section. CT ABD/PELVIC EXTERNAL Routine 03/24/2017 3:30 PM Results for this STUDY DIGITAL ADVISOR procedure are in the results section. after 09/11/2016 Results Pv duplex venous lower extremity (04/19/2017 11:11 AM) Narrative Performed At [facility] Vascular Ultrasound Laboratory Lower Extremity Venous Report [address] [place] [address] Pat.Name:ELVA JENKINS Pat.ID:[id number] .Date: 04/19/2017Refer.MD:AMBROSIO OG MD Exam Time: 10:32:00 AM Study Type:LE Venous Height:59inWeight: 120lb BSA: 1.49 m2 DOBAge:1930,86Y Sex: FEMALESonogrphr: Eliel Ghotra RN, RVS Pat. Stat.:OutpatientTapeVol: PM, CPT - 4: 28722 Echo Event ID:[id number] Order ID:[id number] Reason for Study:Bilateral leg edema. Race:C SUMMARY: [...] Radiology Results In - 04/19/2017 12:56 PM [facility] Vascular Ultrasound Laboratory Lower Extremity Venous Report [address] [place] [address] Pat.Name: ELVA JENKINS Pat.ID: [id number] .Date: 04/19/2017 Refer.MD: AMBROSIO OG MD Exam Time: 10:32:00 AM Study Type:LE Venous Height: 59in Weight: 120lb BSA: 1.49 m2 Age: 2 1930,86Y Sex: FEMALE Sonogrphr: Eliel Ghotra RN, RVS Pat. Stat.:Outpatient Tape Vol: , [facility] - 4: 38715 Echo Event ID:[id number] Order ID: [id number] Reason for Study:Bilateral leg edema. Race: C [...] Signed 04/19/2017 12:55 PM Tucker Kc MD Performing Organization Address [facility]/Zipcode Phone Number [facility] [address] [place] [address] Estimated GFR (04/19/2017 4:00 AM)Only the most recent of19 resultswithin the time period is included. GFR Non Af Amer 79 mL/min/1.73 m2 [facility] DEPARTMENT OF PATHOLOGY AND GENOMIC MEDICINE GFR Af Amer >90 mL/min/1.73 m2 [facility] DEPARTMENT OF Comment: PATHOLOGY AND GENOMIC Chronic kidney disease: <60 mL/min/1.73m2 MEDICINE Kidney failure: <15 mL/min/1.73m2 The estimated GFR is calculated from the IDMS-traceable Modification of Diet in Renal Disease Equation. The accuracy of the calculation is poor when the creatinine is normal. Calculated values >90 mL/min/1.73m2 are not reported. This equation has not been validated in children (<18 years), women, the elderly (>70 years), or ethnic groups other than Caucasians and Americans. Specimen Plasma specimen Performing Organization Address [facility] Phone Number [facility] DEPARTMENT OF PATHOLOGY AND [address] [place] [address] [facility] Phosphorus level (04/19/2017 4:00 AM)Only the most recent of5 resultswithin the time period is included. Phosphorus 2.6 2.4 - 4.5 mg/dL [facility] DEPARTMENT OF PATHOLOGY AND GENOMIC MEDICINE Specimen Plasma specimen Performing Organization Address City/[facility] Phone Number [facility] DEPARTMENT OF PATHOLOGY AND [address] [place] [phone] [facility] Magnesium level (04/19/2017 4:00 AM)Only the most recent of4 resultswithin the time period is included. Magnesium 1.6 1.6 - 2.4 mg/dL [facility] DEPARTMENT OF PATHOLOGY AND GENOMIC MEDICINE Specimen Plasma specimen Performing Organization Address City/[facility] Phone Number [facility] DEPARTMENT OF PATHOLOGY AND [address] [place] [id number] [place] [address] Basic metabolic panel (04/19/2017 4:00 AM)Only the most recent of17 resultswithin the time period is included. Sodium 141 135 - 148 mEq/L [facility] DEPARTMENT OF PATHOLOGY AND GENOMIC MEDICINE Potassium 3.4 (L) 3.5 - 5.0 mEq/L [facility] DEPARTMENT OF PATHOLOGY AND GENOMIC MEDICINE Chloride 100 98 - 112 mEq/L [facility] DEPARTMENT OF PATHOLOGY AND GENOMIC MEDICINE CO2 30 24 - 31 mEq/L [facility] DEPARTMENT OF PATHOLOGY AND GENOMIC MEDICINE Anion gap 11 7 - 15 mEq/L [facility] DEPARTMENT OF PATHOLOGY Comment: [facility] Starting from June , anion gap calculation no longer incorporates potassium. Please note the change. BUN 7 (L) 8 - 23 mg/dL [facility] DEPARTMENT OF PATHOLOGY AND GENOMIC MEDICINE Creatinine 0.7 0.5 - 0.9 mg/dL [facility] DEPARTMENT OF PATHOLOGY AND GENOMIC MEDICINE Glucose 117 (H) 65 - 99 mg/dL [facility] DEPARTMENT OF PATHOLOGY AND GENOMIC MEDICINE Calcium 8.2 (L) 8.8 - 10.2 mg/dL [facility] DEPARTMENT OF PATHOLOGY AND GENOMIC MEDICINE Specimen Plasma specimen Performing Organization Address City/[facility] Phone Number [facility] DEPARTMENT PATHOLOGY AND [address] [place] [phone] [facility] CBC with platelet and differential (04/19/2017 3:45 AM)Only the most recent of19 resultswithin the time period is included. WBC 10.26 4.50 - 11.00 k/uL [facility] DEPARTMENT OF PATHOLOGY AND GENOMIC MEDICINE RBC 2.89 (L) 4.20 - 5.50 m/uL [facility] DEPARTMENT OF PATHOLOGY AND GENOMIC MEDICINE HGB 9.0 (L) 12.0 - 16.0 g/dL [facility] DEPARTMENT OF PATHOLOGY AND GENOMIC MEDICINE HCT 27.2 (L) 37.0 - 47.0 % [facility] DEPARTMENT OF PATHOLOGY AND GENOMIC MEDICINE MCV 94.1 82.0 - 100.0 fL [facility] DEPARTMENT OF PATHOLOGY AND GENOMIC MEDICINE MCH 31.1 27.0 - 34.0 pg [facility] DEPARTMENT OF PATHOLOGY AND GENOMIC MEDICINE MCHC 33.1 31.0 - 37.0 g/dL [facility] DEPARTMENT OF PATHOLOGY AND GENOMIC MEDICINE RDW - SD 48.7 37.0 - 55.0 fL [facility] DEPARTMENT OF PATHOLOGY AND GENOMIC MEDICINE MPV 9.1 8.8 - 13.2 fL [facility] DEPARTMENT OF PATHOLOGY AND GENOMIC MEDICINE Platelet count 305 150 - 400 k/uL [facility] DEPARTMENT OF PATHOLOGY AND GENOMIC MEDICINE Nucleated RBC 0.00 /100 WBC [facility] DEPARTMENT OF PATHOLOGY AND GENOMIC MEDICINE Neutrophils 65.7 39.0 - 69.0 % [facility] DEPARTMENT OF PATHOLOGY AND GENOMIC MEDICINE Lymphocytes 26.3 25.0 - 45.0 % [facility] DEPARTMENT OF PATHOLOGY AND GENOMIC MEDICINE Monocytes 5.9 0.0 - 10.0 % [facility] DEPARTMENT OF PATHOLOGY AND GENOMIC MEDICINE Eosinophils 1.3 0.0 - 5.0 % [facility] DEPARTMENT OF PATHOLOGY AND GENOMIC MEDICINE Basophils 0.3 0.0 - 1.0 % [facility] DEPARTMENT OF PATHOLOGY AND GENOMIC MEDICINE Immature granulocytes 0.5Comment: 0.0 - 1.0 % [facility] DEPARTMENT OF "Immature PATHOLOGY AND GENOMIC granulocytes" MEDICINE (promyelocytes, myelocytes, metamyelocytes) Specimen Blood Performing Organization Address City/State/Zipcode Phone Number [facility] DEPARTMENT OF PATHOLOGY AND [address] [place] [address] [facility] MEDICINE XR Abdomen 1 Vw Portable (04/17/2017 1:00 PM)Only the most recent of2 resultswithin the time period is included. Narrative Performed At EXAMINATION:XR ABDOMEN 1 VW PORTABLE RADIANT CLINICAL HISTORY:Distention COMPARISON:April 16, 2017 IMPRESSION: Diffuse bowel distention, most pronounced in the right colon, is without significant change. The cecum measures approximately 7.5 cm. This is suggestive of ileus. Left femoral line is again noted. Midline skin digna are also present. [facility]-[id number] Procedure Note Hm Interface, Radiology Results Incoming - 04/17/2017 1:07 PM DIGITAL ADVISOR EXAMINATION: XR ABDOMEN 1 VW PORTABLE CLINICAL HISTORY: Distention COMPARISON: April 16, 2017 IMPRESSION: Diffuse bowel distention, most pronounced in the right colon, is without significant change. The cecum measures approximately 7.5 cm. This is suggestive of ileus. Left femoral line is again noted. Midline skin digna are also present. [facility]-[id number] Performing Organization Address City/State/[facility] Phone Number [facility] [address] [place] [address] XR Abdomen 2 Vw Ap W Upright And/Or Decubitus (04/16/2017 9:23 AM) Narrative Performed At EXAMINATION:XR ABDOMEN 2 VW AP W UPRIGHT AND OR DECUBITUS RADIANT CLINICAL HISTORY:Distention COMPARISON:04/15/2017 IMPRESSION: 1.There are operative [...] base with a tiny left pleural effusion. [facility]-[id number] Procedure Note Interface, Radiology Results Incoming - 04/16/2017 9:31 AM DIGITAL ADVISOR EXAMINATION: XR ABDOMEN 2 VW AP W [...] base with a tiny left pleural effusion. [facility]-[id number] Performing Organization Address [facility] Phone Number [facility] [address] [place] [address] ECG 12 lead (04/13/2017 4:43 AM)Only the most recent of2 resultswithin the time period is included. Ventricular rate 112 [facility] Atrial rate 112 [facility] FL interval 122 [facility] QRSD interval 72 [facility] QT interval 330 [facility] QTC interval 450 [facility] P axis 1 55 [facility] QRS axis 1 21 [facility] T wave axis 40 [facility] EKG impression Sinus tachycardia-Otherwise normal ECG-In [facility] MUSE automated comparison with ECG of 02-APR-2017 06:09,-No significant change was found- Performing Organization Address [facility]/Zipcode Phone Number [facility] MUSE [address] [place] [address] XR Chest 1 Vw Portable (04/12/2017 3:48 PM) Narrative Performed At Examination:XR CHEST 1 VW PORTABLE [facility] Clinical history:"Attempted central line placements" Comparison:None IMPRESSION: Lungs are clear. Heart size is within normal limits. Bones are osteopenic. Left cervical calcifications are seen. [id number] Procedure Note Hm Interface, Radiology Results Incoming - 04/12/2017 4:14 PM DIGITAL ADVISOR Examination: XR CHEST 1 VW PORTABLE Clinical history: "Attempted central line placements" Comparison: None IMPRESSION: Lungs are clear. Heart size is within normal limits. Bones are osteopenic. Left cervical calcifications are seen. [id number] Performing Organization Address [facility]/Zipcode Phone Number [facility] [address] [place] [address] Partial thromboplastin time, activated (04/12/2017 4:00 AM)Only the most recent of2 resultswithin the time period is included. PTT 25.6 23.0 - 36.0 sec [facility] DEPARTMENT OF PATHOLOGY Comment: AND GENOMIC MEDICINE PTT therapeutic range for unfractionated heparin is 61.0-112.0 seconds which corresponds to Anti-Xa 0.3-0.7 U/ml. Specimen Blood Performing Organization Address [facility]/Zipcode Phone Number [facility] DEPARTMENT OF PATHOLOGY AND [address] [place] [address] im3D Prothrombin time with INR (04/12/2017 4:00 AM)Only the most recent of2 resultswithin the time period is included. Prothrombin time 13.2 12.0 - 15.0 sec [facility] DEPARTMENT OF PATHOLOGY AND GENOMIC MEDICINE INR 1.0 [facility] DEPARTMENT OF Comment: PATHOLOGY AND GENOMIC The International Normalized Ratio (INR) is a therapeutic MEDICINE monitoring tool for patients who are stable on oral anticoagulant therapy. An INR of 2.0-3.0 is suggested for deep vein thrombosis/pulmonary embolism. Specimen Blood Performing Organization Address City/State/Zipcode Phone Number [facility] DEPARTMENT OF PATHOLOGY AND [address] [place] [address] GENOMIC MEDICINE Type and screen (04/12/2017 4:00 AM) ABO grouping A [facility] DEPARTMENT OF PATHOLOGY AND GENOMIC MEDICINE Rh type POS [facility] DEPARTMENT OF PATHOLOGY AND GENOMIC MEDICINE Antibody screen (gel) NEG [facility] DEPARTMENT OF PATHOLOGY AND GENOMIC MEDICINE Specimen Blood Performing Organization Address City/[facility]/Zipcode Phone Number [facility] DEPARTMENT PATHOLOGY AND [address] [place] [phone] [facility] MEDICINE XR Chest 2 Vw (04/11/2017 7:49 PM)Only the most recent of3 resultswithin the time period is included. Narrative Performed At Examination: Chest 2 views [facility] CLINICAL HISTORY: COPD Emphysema COMPARISON: None. FINDINGS: The heart is not enlarged. There is a large retrocardiac hiatal hernia. IMPRESSION: . There is better aeration of both lungs when compared to a recent CT scan from 04/08/2017 with a most complete resolution of right lower lobe parenchymal infiltrates. No pleural effusion. [facility]-[id number] Procedure Note Interface, Radiology Results Incoming - 04/11/2017 8:47 PM DIGITAL ADVISOR Examination: Chest 2 views CLINICAL HISTORY: COPD Emphysema COMPARISON: None. FINDINGS: The heart is not enlarged. There is a large retrocardiac hiatal hernia. IMPRESSION: . There is better aeration of both lungs when compared to a recent CT scan from 04/08/2017 with a most complete resolution of right lower lobe parenchymal infiltrates. No pleural effusion. [facility]-[id number] Performing Organization Address City/[facility]/Zipcode Phone Number [facility] [address] [place] [address] Vancomycin level, trough (04/11/2017 3:00 PM) Vancomycin, trough 7.1 (L) 10.0 - 20.0 ug/mL [facility] DEPARTMENT OF Comment: PATHOLOGY AND GENOMIC Therapeutic Ranges: MEDICINE Peak 30.0 - 40.0 ug/mL Tsmrzo47.0 - 20.0 ug/mL Specimen Serum Performing Organization Address [facility] Phone Number [facility] DEPARTMENT OF PATHOLOGY AND [address] [place] [id number] [place] [address] Sputum culture (04/11/2017 10:00 AM) Sputum culture isolate No normal oral jamal isolated. (A) [facility] DEPARTMENT OF Comment: PATHOLOGY AND GENOMIC Specimen Information MEDICINE Specimen Source: Sputum Specimen Site: Expectorated Sputum culture isolate Amber albicans [facility] DEPARTMENT OF Occasional PATHOLOGY AND GENOMIC The performance characteristics of this assay on this isolate MEDICINE were validated by the Microbiology Laboratory at [facility].This source has not been approved by the U.S. Food and Drug Administration.The results are not intended to be used as the sole means for clinical diagnosis or patient management.The Microbiology Laboratory is authorized under the clinical Laboratory Improvement Amendments of 1988 (CLIA-88) to perform high complexity testing. The performance characteristics of this assay on this isolate were validated by the Microbiology Laboratory at [facility].This source has not been approved by the U.S. Food and Drug Administration.The results are not intended to be used as the sole means for clinical diagnosis or patient management.The Microbiology Laboratory is authorized under the clinical Laboratory Improvement Amendments of 1988 (CLIA-88) to perform high complexity testing. (A) Specimen Sputum - Expectorated Performing Organization Address [facility] Phone Number [facility] DEPARTMENT OF PATHOLOGY AND [address] [place] [address] Gram stain (04/11/2017 10:00 AM) Gram stain isolate No WBC's [facility] DEPARTMENT OF PATHOLOGY Few epithelial cells AND GENOMIC MEDICINE No organisms seen Comment: Specimen Information Specimen Source: Sputum Specimen Site: Expectorated Specimen Sputum - Expectorated Performing Organization Address [facility] Phone Number [facility] DEPARTMENT OF PATHOLOGY AND [address] [place] [address] CT Chest Wo Contrast (04/08/2017 8:17 PM) Narrative Performed At EXAMINATION: [facility] CT CHEST WO CONTRAST CLINICAL HISTORY: reported [...] irregular nodules most compatible with inflammatory change. [facility]-[id number] Procedure Note Hm Interface, Radiology Results Incoming - 04/08/2017 8:27 PM DIGITAL ADVISOR EXAMINATION: CT CHEST WO CONTRAST CLINICAL HISTORY: [...] irregular nodules most compatible with inflammatory change. [facility]-[id number] Performing Organization Address City/State/Zipcode Phone Number [facility] [address] [place] [address] Respiratory pathogen panel (04/08/2017 10:25 AM) Respiratory pathogen Negative for all pathogens tested: [facility] DEPARTMENT OF panel Negative for Adenovirus PATHOLOGY AND GENOMIC Negative for Coronavirus HKU1 MEDICINE Negative for Coronavirus NL63 Negative for Coronavirus [...] Source: Nares Specimen Site: Not specified Specimen Nares - Not specified Performing Organization Address City/State/Zipcode Phone Number [facility] DEPARTMENT OF PATHOLOGY AND [address] [place] [address] Urinalysis screen and microscopy, with reflex to culture (04/08/2017 8:33 AM) Specimen site Random void [facility] DEPARTMENT OF PATHOLOGY AND GENOMIC MEDICINE Color, UA Dark Yellow [facility] DEPARTMENT OF PATHOLOGY AND GENOMIC MEDICINE Appearance, UA Clear [facility] DEPARTMENT OF PATHOLOGY AND GENOMIC MEDICINE Specific gravity, UA 1.016 1.001 - 1.035 [facility] DEPARTMENT OF PATHOLOGY AND GENOMIC MEDICINE pH, UA 7.0 5.0 - 8.5 [facility] DEPARTMENT OF PATHOLOGY AND GENOMIC MEDICINE Protein, UA Negative Negative [facility] DEPARTMENT OF PATHOLOGY AND GENOMIC MEDICINE Glucose, UA Negative Negative [facility] DEPARTMENT OF PATHOLOGY AND GENOMIC MEDICINE Ketones, UA Negative Negative [facility] DEPARTMENT OF PATHOLOGY AND GENOMIC MEDICINE Bilirubin, UA Negative Negative [facility] DEPARTMENT OF PATHOLOGY AND GENOMIC MEDICINE Blood, UA Negative Negative [facility] DEPARTMENT OF PATHOLOGY AND GENOMIC MEDICINE Nitrite, UA Negative Negative [facility] DEPARTMENT OF PATHOLOGY AND GENOMIC MEDICINE Urobilinogen, UA 2.0 (A) <2.0 [facility] DEPARTMENT OF PATHOLOGY AND GENOMIC MEDICINE Leukocyte esterase, UA Negative Negative [facility] DEPARTMENT OF PATHOLOGY AND GENOMIC MEDICINE Epithelial cells, UA 1 /HPF [facility] DEPARTMENT OF PATHOLOGY AND GENOMIC MEDICINE WBC, UA 1 0 - 4 /HPF [facility] DEPARTMENT OF PATHOLOGY AND GENOMIC MEDICINE RBC, UA 3 (H) 0 - 2 /HPF [facility] DEPARTMENT OF PATHOLOGY AND GENOMIC MEDICINE Bacteria, UA Few None seen [facility] DEPARTMENT OF PATHOLOGY AND GENOMIC MEDICINE Yeast, UA None seen [facility] DEPARTMENT OF PATHOLOGY AND GENOMIC MEDICINE Yeast with pseudohyphae, UA None seen [facility] DEPARTMENT OF PATHOLOGY AND GENOMIC MEDICINE Specimen Urine Performing Organization Address City/[facility]/Zipcode Phone Number [facility] DEPARTMENT OF PATHOLOGY AND [address] [place] [phone] [facility] Urine culture (04/08/2017 8:33 AM) Urine culture SEE COMMENTComment: Bacteriuria [facility] DEPARTMENT OF PATHOLOGY screen negative. AND GENOMIC MEDICINE Performing Organization Address City/State/Zipcode Phone Number [facility] DEPARTMENT OF PATHOLOGY AND [address] [place] [address] [facility] Blood culture, aerobic & anaerobic (04/08/2017 8:18 AM)Only the most recent of2 resultswithin the time period is included. Blood culture isolate No growth after 5 days of incubation. [facility] DEPARTMENT OF Comment: PATHOLOGY AND GENOMIC Specimen Information MEDICINE Specimen Source: Blood Specimen Site: Hand, right Specimen Blood - Hand, right Performing Organization Address City/State/Zipcode Phone Number [facility] DEPARTMENT OF PATHOLOGY AND [address] [place] [address] [facility] Comprehensive metabolic panel (04/08/2017 8:00 AM)Only the most recent of2 resultswithin the time period is included. Sodium 138 135 - 148 mEq/L [facility] DEPARTMENT OF PATHOLOGY AND GENOMIC MEDICINE Potassium 3.7 3.5 - 5.0 mEq/L [facility] DEPARTMENT OF PATHOLOGY AND GENOMIC MEDICINE Chloride 99 98 - 112 mEq/L [facility] DEPARTMENT OF PATHOLOGY AND GENOMIC MEDICINE CO2 28 24 - 31 mEq/L [facility] DEPARTMENT OF PATHOLOGY AND GENOMIC MEDICINE Anion gap 11 7 - 15 mEq/L [facility] DEPARTMENT OF Comment: PATHOLOGY AND GENOMIC Starting from June , anion gap calculation MEDICINE no longer incorporates potassium. Please note the change. BUN 12 8 - 23 mg/dL [facility] DEPARTMENT OF PATHOLOGY AND GENOMIC MEDICINE Creatinine 0.6 0.5 - 0.9 mg/dL [facility] DEPARTMENT OF PATHOLOGY AND GENOMIC MEDICINE Glucose 107 (H) 65 - 99 mg/dL [facility] DEPARTMENT OF PATHOLOGY AND GENOMIC MEDICINE Calcium 8.7 (L) 8.8 - 10.2 mg/dL [facility] DEPARTMENT OF PATHOLOGY AND GENOMIC MEDICINE Protein 5.8 (L) 6.3 - 8.3 g/dL [facility] DEPARTMENT OF Comment: PATHOLOGY AND GENOMIC [place] 4.6-7.0 g/dL MEDICINE 1 week 4.4-7.6 g/dL 7 months-1year5.1-7.3 g/dL 1-2 years5.6-7.5 g/dL >3 years6.0-8.0 g/dL 18-150 6.3-8.3 g/dL Albumin 2.6 (L) 3.5 - 5.0 g/dL [facility] DEPARTMENT OF PATHOLOGY AND GENOMIC MEDICINE A/G ratio 0.8 0.7 - 3.8 [facility] DEPARTMENT OF PATHOLOGY AND GENOMIC MEDICINE Alkaline phosphatase 40 35 - 104 U/L [facility] DEPARTMENT OF PATHOLOGY AND GENOMIC MEDICINE AST 18 10 - 35 U/L [facility] DEPARTMENT OF PATHOLOGY AND GENOMIC MEDICINE ALT 17 5 - 50 U/L [facility] DEPARTMENT OF PATHOLOGY AND GENOMIC MEDICINE Total bilirubin 1.0 0.0 - 1.2 mg/dL [facility] DEPARTMENT OF PATHOLOGY AND GENOMIC MEDICINE Specimen Plasma specimen Performing Organization Address [facility] Phone Number [facility] DEPARTMENT OF PATHOLOGY AND [address] [place] [address] C difficile toxin (04/06/2017 1:15 PM) Clostridium difficile No Clostridium difficle toxin present [facility] DEPARTMENT OF toxin Comment: PATHOLOGY AND GENOMIC Specimen Information MEDICINE Specimen Source: Stool Specimen Site: Nonpreserved Specimen Stool - Nonpreserved Performing Organization Address [facility] [place] Phone Number [facility] DEPARTMENT OF PATHOLOGY AND [address] [place] [address] C-reactive protein (04/03/2017 4:00 AM) CRP <0.30 0.00 - 0.50 mg/dL [facility] DEPARTMENT OF PATHOLOGY AND GENOMIC MEDICINE Specimen Plasma specimen Performing Organization Address [facility] Phone Number [facility] DEPARTMENT OF PATHOLOGY AND [address] [place] [address] Prealbumin level (04/03/2017 4:00 AM) Prealbumin 23 16 - 32 mg/dL [facility] DEPARTMENT OF PATHOLOGY AND GENOMIC MEDICINE Specimen Serum Performing Organization Address [facility] [place] Phone Number [facility] DEPARTMENT OF PATHOLOGY AND [address] [place] [address] Hepatic function panel (04/03/2017 4:00 AM) Albumin 2.7 (L) 3.5 - 5.0 g/dL [facility] DEPARTMENT OF PATHOLOGY AND GENOMIC MEDICINE Total bilirubin 0.6 0.0 - 1.2 mg/dL [facility] DEPARTMENT OF PATHOLOGY AND GENOMIC MEDICINE Bilirubin direct <0.2 0.0 - 0.3 mg/dL [facility] DEPARTMENT OF PATHOLOGY AND GENOMIC MEDICINE Alkaline phosphatase 39 35 - 104 U/L [facility] DEPARTMENT OF PATHOLOGY AND GENOMIC MEDICINE Protein 5.4 (L) 6.3 - 8.3 g/dL [facility] DEPARTMENT OF Comment: PATHOLOGY AND GENOMIC [place] 4.6-7.0 g/dL MEDICINE 1 week 4.4-7.6 g/dL 7 months-1year5.1-7.3 g/dL 1-2 years5.6-7.5 g/dL >3 years6.0-8.0 g/dL 18-150 6.3-8.3 g/dL ALT 20 5 - 50 U/L [facility] DEPARTMENT OF PATHOLOGY AND GENOMIC MEDICINE AST 18 10 - 35 U/L [facility] DEPARTMENT OF PATHOLOGY AND GENOMIC MEDICINE Specimen Plasma specimen Performing Organization Address [facility] [place] Phone Number [facility] DEPARTMENT OF PATHOLOGY AND [address] [place] [address] CV stress test (04/02/2017 9:47 AM) Resting HR 89 [facility] MUSE Resting BP 134 [facility] MUSE Peak MET Achieved 1.0 [facility] MUSE Protocol Name REGADENO [facility] MUSE Time in Exercise Phase 00:01:00 [facility] MUSE Max Systolic BP 134 [facility] MUSE Max Diastolic BP 60 [facility] MUSE Max Heart Rate 113 [facility] MUSE Max Predicted Heart Rate 135 [facility] MUSE Target HR Formula (220 - Age)*100% [facility] MUSE Test Indication chest pain [facility] MUSE Arrhy During Ex [facility] MUSE ECG Interp Before EX [facility] MUSE ECG Interp During Ex H MUSE Ex Summary Comment [facility] MUSE Overall HR Response to [facility] MUSE Exercise Overall BP Response To [facility] MUSE Exercise Reason for Termination [facility] MUSE Stress Test Impression -Waveform interpreted in report [facility] MUSE associated with image study. No interpretation is provided as part of this Stress ECG report.-Electronically Signed By Liberty PALOMARES, Eduard ([id number]), supervising film or videotape editor Esa Munoz ([id number]) on 04/03/2017 1:32:55 PM Performing Organization Address [facility] [place] Phone Number [facility] MUSE [address] [place] [address] Nm myocardial perfusion (04/02/2017 9:47 AM) Narrative Performed At [facility] Nuclear Cardiology and Cardiac CT [address] [place] [address] Myocardial Perfusion Imaging Report Stress ECG tracings are available in MUSE, Handup and CV Web All ECG interpretations are included in this report Pat.Name:ELVA JENKINS Pat.ID:[id number] St.Date: 04/02/2017 Refer.MD:KEVIN ANDRE MD Exam Time: 8:46:00 AM Study Type:Myocardial Perfusion Imaging Height:59inWeight: 119lb BSA: 1.48 m2 DOBAge:1930,86Y Sex: FEMALEBP:134/60 HR:89 bpm Nuclear Tech:CASIE CarpenterMT, BANNERRony/Valentino Pulido [facility] Pat. Stat.:Inpatient Room:[facility] Nuclear Event ID:[id number] Order ID:[id number] Reason for Study:Pre-op evaluation, intermediate/high risk patient History / Clinical:COPD, Hyperlipidemia, Hypertension Procedures:Stress only Race: Risk Factors:Hyperlipidemia, Hypertension Clinical Symptoms:Regadenoson Physical Exam:S1, S2, clear lungs Surgery: Serum K+ Date,3.7/03/31/17, Troponin I Date,1)not done/ 2)/ 3)/, BUN/Creatinine Date,0.8/03/31/17 Medications:Lasix, Lipitor, Lisinopril, Plavix SUMMARY: SCINTIGRAPHIC RESULTS [...] Radiology Results In - 04/02/2017 11:24 AM [facility] Nuclear Cardiology and Cardiac CT [address] [place] [address] Myocardial Perfusion Imaging Report Stress ECG tracings are available in [employer], Handup and [employer] All ECG interpretations are included in this report Pat.Name: ELVA JENKINS Pat.ID: [id number] .Date: 04/02/2017 Refer.MD: KEVIN ANDRE MD Exam Time: 8:46:00 AM Study Type:Myocardial Perfusion Imaging Height: 59in Weight: 119lb BSA: 1.48 m2 Age: 2 1930,86Y Sex: FEMALE BP: 134/60 HR: 89 bpm Nuclear Tech:CASIE CarpenterMT, BANNERT/CARRIE Najera Pat. Stat.:Inpatient Room: [facility] Nuclear Event ID:[id number] Order ID: [id number] Reason for Study:Pre-op evaluation, intermediate/high risk patient History / Clinical:COPD, Hyperlipidemia, Hypertension Procedures:Stress only Race: Risk Factors:Hyperlipidemia, Hypertension Clinical Symptoms:Regadenoson Physical Exam:S1, S2, clear lungs Surgery: Serum K+ Date, 3.7/03/31/17, Troponin I Date, 1)not done/ 2)/ 3)/, BUN/Creatinine Date, 0.8/03/31/17 Medications:Lasix, Lipitor, Lisinopril, Plavix SUMMARY: SCINTIGRAPHIC RESULTS [...] Signed 04/02/2017 11:24 AM Eduard Koenig MD Performing Organization Address [facility]/Zipcode Phone Number [facility] [address] [place] [address] Alpha-1 antitrypsin level (04/02/2017 5:30 AM) Alpha-1 antitrypsin 136 90 - 200 mg/dL [facility] DEPARTMENT OF PATHOLOGY AND GENOMIC MEDICINE Specimen Plasma specimen Performing Organization Address [facility] Phone Number [facility] DEPARTMENT OF PATHOLOGY AND [address] [place] [address] GENOMIC MEDICINE Echocardiogram complete w contrast and 3D if needed (04/01/2017 4:35 PM) Narrative Performed At [facility] Echocardiography Report [address], [place] [address] Pat.Name:ELVA JENKINS.ID:[id number] .Date: 04/01/2017 Refer.MD:KEVIN ANDRE MD Exam Time: 1:15:00 PMStudy Type:Routine Echo Height:59inWeight: 119lb BSA: 1.48 m2 DOBAge:1930,86Y Sex: FEMALEBP:140/66 HR:84 bpm Sonogrphr: Lindsay Edwards RDCS; Debra Ashley. Stat.:Inpatient Room:[address] Study Status:Final Echo Event ID:[id number] Order ID:[id number] Reason for Study:Etiology - Symptoms or conditions [...] RAPof 5 mmHg. MEASUREMENTS: 2D Parasternal Long [place] LVOT 1.8 cmLA Ds3.5 cm LVIDd3.4 cmIndex2.3 cm/m Ao An1.9 cm LVIDs1.9 cmAo Rtd 3.3 cm Index2.2 cm/m LV%fs 44.1 % LV Yoem764.6 g(87-129) IVSd 1.5 cmLVM Index 99.7 g/m2 LVPWd1.1 cmRWT0.6 DOPPLER LVOT For Flow LVOT Area2.5 cm2 LVOT SV 66.1 ml HPMQinUlc241.3 cm/sHR86.5 bpm LVOTpkPG 7.6 mmHgLVOT CO5.7 l/min LVOTmnPG 4 mmHgLVOT CI3.9 l/m/m2 LVOT TVI26 cm Signed 04/01/2017 11:24 PM Sheila Gage MD Procedure Note Interface, Radiology Results In - 04/01/2017 11:24 PM [facility] Echocardiography Report [id number] [address] [facility].Name: ELVA JENKINS.ID: [id number] .Date: 04/01/2017 Refer.MD: KEVIN ANDRE MD Exam Time: 1:15:00 PM Study Type:Routine Echo Height: 59in Weight: 119lb BSA: 1.48 m2 Age: 2 1930,86Y Sex: FEMALE BP: 140/66 HR: 84 bpm Sonogrphr: Lindsay Edwards RDCS; Debra Ashley. Stat.:Inpatient Room: A7-353Q Study Status:Final Echo Event ID:[id number] Order ID: [id number] Reason for Study:Etiology - Symptoms or conditions [...] of 5 mmHg. MEASUREMENTS: 2D Parasternal Long [place] LVOT 1.8 cm LA Ds 3.5 cm [...] Signed 04/01/2017 11:24 PM Sheila Gage MD Performing Organization Address City/State/Zipcode Phone Number [facility] [address] carotid duplex (04/01/2017 4:08 PM) Narrative Performed At [facility] Vascular Ultrasound Laboratory Carotid Artery Duplex Report [address] [place] [address] For quality control assistant purposes, the categorization of the degree of the stenosis of this exam is based on criteria described in the IAC carotid stenosis grading white paper( www.intersocietal.org/Vascular) and Reyes Avery., Denny Oliveira., et al. Carotid artery stenosis: campbell-scale and Doppler US diagnosis--Society of Radiologists in Ultrasound Consensus Conference. Radiology. 2003 Nov; 229(2):340-6. Pat.Name:ELVA JENKINS Pat.ID:[id number] .Date: 04/01/2017 Exam Time: 2:54:00 PM Study Type:Carotid DOBAge:1930,86Y Sex: FEMALESonogrphr: Levi Nielsen, RVT, RDMS Pat. Stat.:Inpatient Room:[address] TapeVol: HARDIK, CPT - 4: [address] Echo Event ID:[id number] Order ID:[id number] Reason for Study:Preop. PMH of HTN, COPD, [...] Mid PSV 69 cm/sCCA Mid EDV 14.2 cm/s Right CCA Prox CCA Prox PSV70.3 cm/sCCA Prox EDV11.6 cm/s Right ECA Prox ECA Prox PSV54.6 cm/sECA Prox EDV 0 cm/s Right ICA Dist ICA Dist PSV76.6 cm/[place] Dist EDV24.3 cm/s Right ICA Mid ICA Mid SOO508 cm/[place] Mid EDV 32.1 cm/s Right ICA Prox ICA Prox PSV47 cm/[place] Prox EDV17.4 cm/s Right Vertebral Vertebral PSV 56.8 cm/sVertebral EDV 15.4 cm/s Left CCA Dist CCA Dist PSV43.1 cm/sCCA Dist EDV7.91 cm/s Left CCA Mid CCA Mid PSV 68.2 cm/sCCA Mid EDV 13.2 cm/s Left CCA Prox CCA Prox PSV 112 cm/sCCA Prox EDV19.1 cm/s Left ECA Prox ECA Prox PSV61.8 cm/sECA Prox EDV 0 cm/s Left ICA Dist ICA Dist PSV58.4 cm/[place] Dist EDV16 cm/s Left ICA Mid ICA Mid PSV 62.4 cm/[place]ley Mid EDV 20 cm/s Left ICA Prox ICA Prox PSV44.3 cm/[place] Prox EDV14.4 cm/s Left Vertebral Vertebral PSV 48.3 cm/sVertebral EDV 10.7 cm/s Right ICA/CCA Ratio ICA/CCA PSV0.681 Left ICA/CCA Ratio ICA/CCA PSV 0.65 Signed 04/01/2017 04:10 PM Tucker Kc MD Procedure Note Interface, Radiology Results In - 04/01/2017 4:11 PM [facility] Vascular Ultrasound Laboratory Carotid Artery Duplex Report [address] [place] [address] For quality control assistant purposes, the categorization of the degree of the stenosis of this exam is based on criteria described in the IAC carotid stenosis grading white paper( www.intersocietal.org/Vascular) and Reyes Avery., Tee CPratimaB., et al. Carotid artery stenosis: campbell-scale and Doppler US diagnosis--Society of Radiologists in Ultrasound Consensus Conference. Radiology. 2003 Nov; 229(2):340-6. Pat.Name: ELVA JENKINS.ID: [id number] St.Date: 04/01/2017 Exam Time: 2:54:00 PM Study Type:Carotid Age: 2 1930,86Y Sex: FEMALE Sonogrphr: Levi Nielsen, MERRY, RDMS Pat. Stat.:Inpatient Room: R6559-G Tape Vol: HARDIK, CPT - 4: 01125 Echo Event ID:[id number] Order ID: [id number] Reason for Study:Preop. PMH of HTN, COPD, [...] Signed 04/01/2017 04:10 PM Tucker Kc MD Performing Organization Address [facility] Phone Number [facility] [address] [place] [address] CT Head External Study (03/25/2017 5:50 PM) Narrative Performed At This exam was not acquired at a [facility] facility and has not been [facility] interpreted by a [facility] Provider.The exam was imported into our imaging system for comparisons purposes. Performing Organization Address [facility]/Zipcode Phone Number [facility] [address] [place] [address] CT Abd/Pelvic External Study (03/24/2017 3:30 PM) Narrative Performed At This exam was not acquired at a [facility] facility and has not been [facility] interpreted by a [facility] Provider.The exam was imported into our imaging system for comparisons purposes. Performing Organization Address [facility]/Zipcode Phone Number [facility] [address] [place] [address] after 09/11/2016 Insurance Payer Benefit Plan / Group Subscriber ID Type Phone Address [employer] MED[employer] xxxxxxxxx [phone] [place] [address]
--- OUTSIDE RECORDS SUMMARY | 2017-09-12 16:05 | XMS REPORT | Clinical Summary ---
:1930 Author Organization [facility] Address [address] [place] [address] Phone Care Team Providers Name Role Phone [...] (EASY FIBER Take by mouth. Active ORAL) aspirin 81 MG EC Take 81 mg by Discontinued tablet mouth daily. 8 levothyroxine Take 50 mcg by 12/06/2015 (SYNTHROID, mouth Every 7 LEVOTHROID) 75 MCG morning on an tablet empty stomach. amoxicillin-clavulan Take 1 tablet 10 tablet 0 08/05/2017 ate (AUGMENTIN) by mouth 2 8 875-125 mg per (two) times tablet daily for [address] rectally 30 g 0 08/05/2017 (ANUSOL-HC) 2.5 % 2 (two) times 8 rectal cream daily for 10 days. Active Problems Problem Noted Date Gastroesophageal [...] Date Type Specialty Care Team Description 08/02/2017 [facility] General Internal Otshira, Gastroesophageal - Encounter Medicine MD Ricardo reflux disease without 08/05/2017 Parhizgar, esophagitis;Hypokalemi MD James a;Other specified hypothyroidism;Rectal bleeding;Rectal polyp 08/02/2017 Anesthesia Event Gastroenterology Abeba Fuchs, DELIVERY SPECIALIST 08/02/2017 Procedure Pass Gastroenterology 08/02/2017 Surgery Gastroenterology Katie, COLONOSCOPY,SUBMUCOSAL MD Ricardo RESECTION 07/29/2017 Hospital Pre-Admission Testing Encounter after 09/11/2016 Social History Tobacco Use Types Packs/Day Years [...] unspecified part of colon, unspecified type after 09/11/2016 Results REPORT OF PROCEDURE - ENDOSCOPY URL (08/08/2017 12:52 PM)Calcium, Ionized (08/05 5:48 AM) Component Value Ref Range Calcium, Ion 1.05 (L) 1.12 - 1.27 mmol/L pH, Blood 7.46 Specimen Performing Laboratory Blood - Arm, [address] [address] CBC with platelet count + automated diff [...] % Specimen Performing Laboratory Blood - Arm, [address] [address] Prothrombin time/INR (08/05/2017 5:48 AM)Only the most recent of3 resultswithin the time period is included. Component Value Ref Range Protime 14.2 11.7 - 14.7 seconds INR 1.1 <=5.9 Specimen Performing Laboratory Blood - Arm, [address] [address] Narrative RECOMMENDED COUMADIN/WARFARIN INR THERAPY RANGES STANDARD [...] Status --------- ------ CBC with platelet count ...[[id number]]AbnormalFinal result Please view results for these tests on the individual orders. Phosphorus (08/05/2017 5:48 AM) Component Value Ref Range Phosphorus 2.7 2.3 - 4.7 mg/dL Specimen Performing Laboratory Blood - Arm, [address] [address] Magnesium (08/05/2017 5:48 AM) Component Value Ref Range Magnesium 1.9 1.6 - 2.6 mg/dL Specimen Performing Laboratory Blood - Arm, [address] [address] Hepatic function panel (08/05/2017 5:48 AM)Only the [...] U/L Specimen Performing Laboratory Blood - Arm, [address] [address] Basic metabolic panel (08/05/2017 5:48 AM)Only the [...] Specimen Performing Laboratory Blood - Arm, Right [address] [address] Urinalysis w/Microscopic (08/03/2017 2:35 PM) Component Value Ref Range Color, UA Yellow Clarity, UA Clear Specific [place], UA 1.010 1.001 - 1.035 pH, UA [...] /LPF Specimen Source Specimen Performing Laboratory Urine [address] [address] Tissue Exam (08/02/2017 5:15 PM) Component Value Ref Range Case Report Surgical Pathology Report Case: [id number] Authorizing Provider:Ricardo Wilson MDCollected: 08/02/2017 1715 Ordering Location: [facility] Endoscopy Received: 08/03/2017 0837 Services Pathologist: Larry Cohn MD Specimen:Rectal, MASS- TAKEN BY ESD, ON WAX, EVALUATE MARGINS DIAGNOSIS RECTAL, 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
--- OUTSIDE RECORDS SUMMARY | 2017-09-12 16:06 | XMS REPORT ---
:1930 [facility] Address [address] [place] [address] [address] [place] [address] Care Team Providers Name Role Phone DANIELRICARDO ALMONTE Unavailable Unavailable Problems This patient has no known problems. Allergies, Adverse Reactions, Alerts This patient has no known allergies or adverse reactions. Medications This patient has no known medications. Results Test Description Test Time Test Comments Text Results Atomic Results Result Comments PHOSPHORUS 2017-08-05 06:56:00 Test Item Value Reference Range Comments PHOSPHORUS (BEAKER) (test gvws=857) 2.7 mg/dL 2.3-4.7 [id number] 06:56:00 Test Item Value Reference Range Comments MAGNESIUM (BEAKER) (test ekhx=771) 1.9 mg/dL 1.6-2.6 BASIC METABOLIC [id number] 06:56:00 Test Item Value Reference Range Comments SODIUM (BEAKER) (test 139 meq/L 136-145 nuqu=386) POTASSIUM (BEAKER) (test 4.1 meq/L 3.5-5.1 imbt=360) CHLORIDE (BEAKER) (test 107 meq/L 98-107 qqad=179) CO2 (BEAKER) (test 26 meq/L 22-29 gmxa=571) BLOOD UREA NITROGEN 11 mg/dL 7-21 (BEAKER) (test pbgx=164) CREATININE (BEAKER) (test 0.73 mg/dL 0.57-1.25 updu=637) GLUCOSE RANDOM (BEAKER) 107 mg/dL 70-105 (test ciwj=399) CALCIUM (BEAKER) (test 8.5 mg/dL 8.4-10.2 pxwi=869) EGFR (BEAKER) (test 76 mL/min/1.73 sq m ESTIMATED GFR IS NOT npuf=6476) ACCURATE CREATININE CLEARANCE IN PREDICTING GLOMERULAR FILTRATION RATE. ESTIMATED GFR IS NOT APPLICABLE FOR DIALYSIS PATIENTS. HEPATIC FUNCTION [id number] 06:56:00 Test Item Value Reference Range Comments TOTAL PROTEIN (BEAKER) (test mrkf=201) 5.2 gm/dL 6.0-8.3 ALBUMIN (BEAKER) (test brfc=2891) 2.9 g/dL 3.5-5.0 BILIRUBIN TOTAL (BEAKER) (test ivun=372) 0.8 mg/dL 0.2-1.2 BILIRUBIN DIRECT (BEAKER) (test skig=546) 0.4 mg/dL 0.1-0.5 ALKALINE PHOSPHATASE (BEAKER) (test zuel=860) 43 U/L 40-150 AST (SGOT) (BEAKER) (test hgpp=147) 13 U/L 5-34 ALT (SGPT) (BEAKER) (test ffsc=614) 10 U/L 6-55 CALCIUM, [id number] 06:36:00 Test Item Value Reference Range Comments CALCIUM IONIZED (BEAKER) (test ajjh=266) 1.05 mmol/L 1.12-1.27 PH, BLOOD (BEAKER) (test iqok=4472) 7.46 PROTHROMBIN TIME/[id number] 06:35:00 Test Item Value Reference Range Comments PROTIME (BEAKER) (test zunj=184) 14.2 seconds 11.7-14.7 INR (BEAKER) (test dyoq=323) 1.1 <=5.9 RECOMMENDED COUMADIN/WARFARIN INR THERAPY RANGESSTANDARD DOSE: 2.0 - 3.0 Includes: PROPHYLAXIS forvenous thrombosis, systemic embolization; TREATMENT for venous thrombosis and/or pulmonary embolus.HIGH RISK: Target INR is 2.5-3.5 for patients with mechanical heart valves.CBC W/PLT COUNT & AUTO [id number] 06:25:00 Test Item Value Reference Range Comments WHITE BLOOD CELL COUNT (BEAKER) (test xnjt=723) 9.4 K/ L 3.5-10.5 RED BLOOD CELL COUNT (BEAKER) (test eqgk=616) 3.48 M/ L 3.93-5.22 HEMOGLOBIN (BEAKER) (test hgja=614) 10.0 GM/DL 11.2-15.7 HEMATOCRIT (BEAKER) (test urca=432) 31.1 % 34.1-44.9 MEAN CORPUSCULAR VOLUME (BEAKER) (test ncvs=580) 89.4 fL 79.4-94.8 MEAN CORPUSCULAR HEMOGLOBIN (BEAKER) (test 28.7 pg 25.6-32.2 itef=708) MEAN CORPUSCULAR HEMOGLOBIN CONC (BEAKER) (test 32.2 GM/DL 32.2-35.5 hjjo=777) RED CELL DISTRIBUTION WIDTH (BEAKER) (test 18.3 % 11.7-14.4 ajvv=170) PLATELET COUNT (BEAKER) (test noqp=492) 234 K/CU MM 150-450 MEAN PLATELET VOLUME (BEAKER) (test slqo=623) 8.9 fL 9.4-12.3 NUCLEATED RED BLOOD CELLS (BEAKER) (test 0 /100 WBC 0-0 ekva=981) NEUTROPHILS RELATIVE PERCENT (BEAKER) (test 70 % payz=581) LYMPHOCYTES RELATIVE PERCENT (BEAKER) (test 24 % efuv=157) MONOCYTES RELATIVE PERCENT (BEAKER) (test 5 % bvsx=274) EOSINOPHILS RELATIVE PERCENT (BEAKER) (test 0 % thfs=593) BASOPHILS RELATIVE PERCENT (BEAKER) (test 0 % iqda=876) NEUTROPHILS ABSOLUTE COUNT (BEAKER) (test 6.54 K/ L 1.56-6.13 sbez=238) LYMPHOCYTES ABSOLUTE COUNT (BEAKER) (test 2.30 K/ L 1.18-3.74 ueus=880) MONOCYTES ABSOLUTE COUNT (BEAKER) (test 0.50 K/ L 0.24-0.36 ciwi=363) EOSINOPHILS ABSOLUTE COUNT (BEAKER) (test 0.03 K/ L 0.04-0.36 atwt=583) BASOPHILS ABSOLUTE COUNT (BEAKER) (test 0.02 K/ L 0.01-0.08 ieby=211) IMMATURE GRANULOCYTES-RELATIVE PERCENT (BEAKER) 0 % 0-1 (test nhjt=4288) TISSUE [id number] 14:52:00Surgical Pathology Report Case: [id number] Authorizing Provider: Ricardo Wilson MD Collected: 08/02/2017 1715 Ordering Location: [facility] Endoscopy Received: 08/03/2017 0837 Services Pathologist: Larry Cohn MD Specimen: Rectal, MASS- TAKEN BY ESD, ON WAX, EVALUATE MARGINS RECTAL, 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)- NEGATIVE FOR HIGH GRADE DYSPLASIA OR CARCINOMA- PERIPHERAL MARGINS, NEGATIVE FOR ADENOMATOUS CHANGE Signing Pathologist Direct Phone Line: [phone] signed by Larry Cohn MD on 08/04/2017 at 2:52 [id number] polyp Rectal mass Received in formalin labeled [...] the diagnostic line.CBC W/PLT COUNT & AUTO [id number] 06:19:00 Test Item Value Reference Range Comments WHITE BLOOD CELL COUNT (BEAKER) (test abaw=913) 15.6 K/ L 3.5-10.5 RED BLOOD CELL COUNT (BEAKER) (test itoo=273) 3.50 M/ L 3.93-5.22 HEMOGLOBIN (BEAKER) (test pcah=945) 9.9 GM/DL 11.2-15.7 HEMATOCRIT (BEAKER) (test tuwi=000) 31.4 % 34.1-44.9 MEAN CORPUSCULAR VOLUME (BEAKER) (test coxz=252) 89.7 fL 79.4-94.8 MEAN CORPUSCULAR HEMOGLOBIN (BEAKER) (test 28.3 pg 25.6-32.2 petv=020) MEAN CORPUSCULAR HEMOGLOBIN CONC (BEAKER) (test 31.5 GM/DL 32.2-35.5 elnw=814) RED CELL DISTRIBUTION WIDTH (BEAKER) (test 18.0 % 11.7-14.4 dryx=342) PLATELET COUNT (BEAKER) (test imex=535) 223 K/CU MM 150-450 MEAN PLATELET VOLUME (BEAKER) (test kwpa=626) 8.7 fL 9.4-12.3 NUCLEATED RED BLOOD CELLS (BEAKER) (test 0 /100 WBC 0-0 klfa=962) NEUTROPHILS RELATIVE PERCENT (BEAKER) (test 81 % dzgl=035) LYMPHOCYTES RELATIVE PERCENT (BEAKER) (test 15 % lsfk=913) MONOCYTES RELATIVE PERCENT (BEAKER) (test 4 % vqqx=235) EOSINOPHILS RELATIVE PERCENT (BEAKER) (test 0 % pvie=107) BASOPHILS RELATIVE PERCENT (BEAKER) (test 0 % kozj=923) NEUTROPHILS ABSOLUTE COUNT (BEAKER) (test 12.56 K/ L 1.56-6.13 scuz=562) LYMPHOCYTES ABSOLUTE COUNT (BEAKER) (test 2.36 K/ L 1.18-3.74 mhka=907) MONOCYTES ABSOLUTE COUNT (BEAKER) (test 0.56 K/ L 0.24-0.36 aclz=684) EOSINOPHILS ABSOLUTE COUNT (BEAKER) (test 0.03 K/ L 0.04-0.36 okpp=283) BASOPHILS ABSOLUTE COUNT (BEAKER) (test 0.02 K/ L 0.01-0.08 cdsx=354) IMMATURE GRANULOCYTES-RELATIVE PERCENT (BEAKER) 0 % 0-1 (test klaj=7598) HEPATIC FUNCTION [id number] 06:15:00 Test Item Value Reference Range Comments TOTAL PROTEIN (BEAKER) (test ipzc=453) 4.9 gm/dL 6.0-8.3 ALBUMIN (BEAKER) (test chlr=6319) 2.8 g/dL 3.5-5.0 BILIRUBIN TOTAL (BEAKER) (test fqyp=742) 1.1 mg/dL 0.2-1.2 BILIRUBIN DIRECT (BEAKER) (test sino=126) 0.5 mg/dL 0.1-0.5 ALKALINE PHOSPHATASE (BEAKER) (test jkzv=801) 42 U/L 40-150 AST (SGOT) (BEAKER) (test jfho=850) 15 U/L 5-34 ALT (SGPT) (BEAKER) (test fapv=671) 12 U/L 6-55 BASIC METABOLIC [id number] 06:15:00 Test Item Value Reference Range Comments SODIUM (BEAKER) (test 139 meq/L 136-145 vibb=778) POTASSIUM (BEAKER) (test 4.6 meq/L 3.5-5.1 icpk=404) CHLORIDE (BEAKER) (test 108 meq/L 98-107 hzzd=225) CO2 (BEAKER) (test 25 meq/L 22-29 siks=695) BLOOD UREA NITROGEN 13 mg/dL 7-21 (BEAKER) (test zbft=823) CREATININE (BEAKER) (test 0.73 mg/dL 0.57-1.25 mdmb=777) GLUCOSE RANDOM (BEAKER) 115 mg/dL 70-105 (test cnwm=581) CALCIUM (BEAKER) (test 8.5 mg/dL 8.4-10.2 qtvi=523) EGFR (BEAKER) (test 76 mL/min/1.73 sq m ESTIMATED GFR IS NOT cntq=3132) ACCURATE CREATININE CLEARANCE IN PREDICTING GLOMERULAR FILTRATION RATE. ESTIMATED GFR IS NOT APPLICABLE FOR DIALYSIS PATIENTS. PROTHROMBIN TIME/[id number] 05:59:00 Test Item Value Reference Range Comments PROTIME (BEAKER) (test szut=138) 14.6 seconds 11.7-14.7 INR (BEAKER) (test iudb=210) 1.1 <=5.9 RECOMMENDED COUMADIN/WARFARIN INR THERAPY RANGESSTANDARD DOSE: 2.0 - 3.0 Includes: PROPHYLAXIS forvenous thrombosis, systemic embolization; TREATMENT for venous thrombosis and/or pulmonary embolus.HIGH RISK: Target INR is 2.5-3.5 for patients with mechanical heart valves.URINALYSIS W/ [id number] 14 :53:00 Test Item Value Reference Range Comments COLOR (BEAKER) (test iqxj=670) Yellow CLARITY (BEAKER) (test qmqa=349) Clear SPECIFIC GRAVITY UA (BEAKER) (test apjq=599) 1.010 1.001-1.035 PH UA (BEAKER) (test hfqp=628) 5.5 5.0-8.0 PROTEIN UA (BEAKER) (test yevg=620) Negative Negative GLUCOSE UA (BEAKER) (test gznr=983) Negative Negative KETONES UA (BEAKER) (test kkeo=398) Trace Negative BILIRUBIN UA (BEAKER) (test fiyo=707) Negative Negative BLOOD UA (BEAKER) (test onlm=996) Negative Negative NITRITE UA (BEAKER) (test tvuj=578) Negative Negative LEUKOCYTE ESTERASE UA (BEAKER) (test ibxa=170) Negative Negative UROBILINOGEN UA (BEAKER) (test xctx=157) 0.2 mg/dL 0.2-1.0 RBC UA (BEAKER) (test lmvl=783) 1 /HPF WBC UA (BEAKER) (test mnau=813) 3 /HPF MUCUS (BEAKER) (test qnlq=1626) Few SQUAMOUS EPITHELIAL (BEAKER) (test uvqp=897) < /HPF HYALINE CASTS (BEAKER) (test zurt=652) 2 /LPF SOURCE(BEAKER) (test qsew=4244) HEPATIC FUNCTION [id number] 06:31:00 Test Item Value Reference Range Comments TOTAL PROTEIN (BEAKER) (test zygj=670) 5.2 gm/dL 6.0-8.3 ALBUMIN (BEAKER) (test ysbj=1772) 3.1 g/dL 3.5-5.0 BILIRUBIN TOTAL (BEAKER) (test ngjt=104) 1.1 mg/dL 0.2-1.2 BILIRUBIN DIRECT (BEAKER) (test xvln=029) 0.5 mg/dL 0.1-0.5 ALKALINE PHOSPHATASE (BEAKER) (test imvt=601) 47 U/L 40-150 AST (SGOT) (BEAKER) (test hlhm=002) 20 U/L 5-34 ALT (SGPT) (BEAKER) (test oguq=517) 15 U/L 6-55 BASIC METABOLIC [id number] 06:31:00 Test Item Value Reference Range Comments SODIUM (BEAKER) (test 139 meq/L 136-145 ivri=515) POTASSIUM (BEAKER) (test 2.7 meq/L 3.5-5.1 ythn=538) CHLORIDE (BEAKER) (test 106 meq/L 98-107 hghk=108) CO2 (BEAKER) (test 24 meq/L 22-29 wjlc=187) BLOOD UREA NITROGEN 7 mg/dL 7-21 (BEAKER) (test qzqh=377) CREATININE (BEAKER) (test 0.61 mg/dL 0.57-1.25 pezk=513) GLUCOSE RANDOM (BEAKER) 88 mg/dL 70-105 (test ommd=066) CALCIUM (BEAKER) (test 8.4 mg/dL 8.4-10.2 ibhl=648) EGFR (BEAKER) (test 93 mL/min/1.73 sq m ESTIMATED GFR IS NOT yjxp=3992) ACCURATE CREATININE CLEARANCE IN PREDICTING GLOMERULAR FILTRATION RATE. ESTIMATED GFR IS NOT APPLICABLE FOR DIALYSIS PATIENTS. BASIC METABOLIC [id number] 06:30:00 Test Item Value Reference Range Comments SODIUM (BEAKER) (test 136 meq/L 136-145 qukj=476) POTASSIUM (BEAKER) (test 3.0 meq/L 3.5-5.1 Specimen slightly ycpc=584) hemolyzed CHLORIDE (BEAKER) (test 106 meq/L 98-107 ffqk=186) CO2 (BEAKER) (test 20 meq/L 22-29 orax=518) BLOOD UREA NITROGEN 7 mg/dL 7-21 (BEAKER) (test aygu=682) CREATININE (BEAKER) (test 0.61 mg/dL 0.57-1.25 Specimen slightly gwzu=828) hemolyzed GLUCOSE RANDOM (BEAKER) 81 mg/dL 70-105 (test hrre=135) CALCIUM (BEAKER) (test 8.2 mg/dL 8.4-10.2 ndat=921) EGFR (BEAKER) (test 93 mL/min/1.73 sq m ESTIMATED GFR IS NOT shcq=5603) ACCURATE CREATININE CLEARANCE IN PREDICTING GLOMERULAR FILTRATION RATE. ESTIMATED GFR IS NOT APPLICABLE FOR DIALYSIS PATIENTS. CBC W/PLT COUNT & AUTO [id number] 06:25:00 Test Item Value Reference Range Comments WHITE BLOOD CELL COUNT (BEAKER) (test aqoh=851) 14.6 K/ L 3.5-10.5 RED BLOOD CELL COUNT (BEAKER) (test qunh=542) 3.75 M/ L 3.93-5.22 HEMOGLOBIN (BEAKER) (test mxnv=327) 10.5 GM/DL 11.2-15.7 HEMATOCRIT (BEAKER) (test htrv=375) 33.1 % 34.1-44.9 MEAN CORPUSCULAR VOLUME (BEAKER) (test luss=467) 88.3 fL 79.4-94.8 MEAN CORPUSCULAR HEMOGLOBIN (BEAKER) (test 28.0 pg 25.6-32.2 cjkb=599) MEAN CORPUSCULAR HEMOGLOBIN CONC (BEAKER) (test 31.7 GM/DL 32.2-35.5 hztq=460) RED CELL DISTRIBUTION WIDTH (BEAKER) (test 17.5 % 11.7-14.4 caks=885) PLATELET COUNT (BEAKER) (test wsss=560) 246 K/CU MM 150-450 MEAN PLATELET VOLUME (BEAKER) (test hydp=948) 8.9 fL 9.4-12.3 NUCLEATED RED BLOOD CELLS (BEAKER) (test 0 /100 WBC 0-0 wtar=402) NEUTROPHILS RELATIVE PERCENT (BEAKER) (test 88 % qpdl=588) LYMPHOCYTES RELATIVE PERCENT (BEAKER) (test 5 % wcfw=694) MONOCYTES RELATIVE PERCENT (BEAKER) (test 6 % cftz=074) EOSINOPHILS RELATIVE PERCENT (BEAKER) (test 0 % lwfx=419) BASOPHILS RELATIVE PERCENT (BEAKER) (test 0 % fngv=231) NEUTROPHILS ABSOLUTE COUNT (BEAKER) (test 12.85 K/ L 1.56-6.13 nuoo=429) LYMPHOCYTES ABSOLUTE COUNT (BEAKER) (test 0.71 K/ L 1.18-3.74 jvqi=035) MONOCYTES ABSOLUTE COUNT (BEAKER) (test 0.94 K/ L 0.24-0.36 ptut=010) EOSINOPHILS ABSOLUTE COUNT (BEAKER) (test 0.00 K/ L 0.04-0.36 qijx=135) BASOPHILS ABSOLUTE COUNT (BEAKER) (test 0.02 K/ L 0.01-0.08 uydn=486) IMMATURE GRANULOCYTES-RELATIVE PERCENT (BEAKER) 1 % 0-1 (test udly=9096) PROTHROMBIN [id number] 06:21:00 Test Item Value Reference Range Comments PROTIME (BEAKER) (test opqt=296) 13.5 seconds 11.7-14.7 INR (BEAKER) (test dqey=305) 1.0 <=5.9 RECOMMENDED COUMADIN/WARFARIN INR THERAPY RANGESSTANDARD DOSE: 2.0 - 3.0 Includes: PROPHYLAXIS forvenous thrombosis, systemic embolization; TREATMENT for venous thrombosis and/or pulmonary embolus.HIGH RISK: Target INR is 2.5-3.5 for patients with mechanical heart valves.
[2017-09-12] MEDS ORDERED: NA CHLORIDE 0.9% 1,000 ML ONE (16:53)
[2017-09-12 17:00] LABS: Absolute Lymphocytes (CBC) 1.6 K/uL (0.7-4.9); Absolute Monocytes 0.7 K/uL (0.1-1.3); Absolute Neutrophil 11.1 K/uL (1.8-8.0); Basophils % 0.3 % (0-1.3); Eosinophils % 0.3 % (0-4.4); Hematocrit 35.1 % (36.0-45.0); Lymphocytes % 11.8 % (15.3-44.8); MCV 90.5 fL (80-100); MPV 6.6 fL (7.6-11.3); Monocytes % 5.4 % (3.3-12.3); RBC Red Blood Cell Count 3.88 M/uL (3.86-4.86)
--- NOTE | 2017-09-12 17:11 | RAD REPORT ---
EXAM DESCRIPTION: CT - Stone Protocol - 09/12/2017 4:55 pm CLINICAL HISTORY: Abdominal pain COMPARISON: CT June 2017 TECHNIQUE: Axial [address] imaging of the abdomen and pelvis was performed without IV contrast. No IV contrast was given because of allergy, abnormal renal function, patient refusal or physician re quest. No oral contrast. All CT scans are performed using dose optimization technique as appropriate and may include automated exposure control or mA/KV adjustment according to patient size. FINDINGS: No suspicious findings in the lung bases. The liver, spleen and pancreas show no suspicious findings on non-contrast imaging. Cholecystectomy c lips are present. No abnormal biliary tree dilatation. No hydronephrosis or suspicious renal mass. No significant adrenal finding. Isodense renal masses an d pyelonephritis cannot be excluded in the absence of IV contrast. The urinary bladder is without sig nificant finding. Uterus is absent. Ovaries are absent or atrophic. No suspicious adnexal finding. No gastric dilatation or wall thickening. Proximal stomach is difficult to assess due to lack of intr aluminal material an the lack of contrast. No dilated small bowel loops. Moderate stool volume seen i n the right-side of the colon. Appendicitis is not suspected. Valente of the distal sigmoid colon and r ectum appear thickened and edematous. There is stranding in the perirectal fat. No free air, free flu id or pneumatosis. No hernia, mass or bulky lymphadenopathy. No suspicious bony findings. Prominent disc and bony degenerative changes are present. IMPRESSION: Wall thickening, edema and adjacent fat stranding seen rectum and distal sigmoid colon. No mass, abscess or surgically emergent finding. Findings are suspicious for rectosigmoid colitis and need correlation with clinical findings. No acute finding. Isodense masses and pyelonephritis are not excluded on a noncontrast study. Full assessment is limited is the absence of IV contrast.
[2017-09-12 17:26] LABS: Albumin 2.8 g/dL (3.4-5.0); Bilirubin Direct 0.2 mg/dL (0-0.2); Bilirubin Total 0.8 mg/dL (0.2-1.0); Potassium 3.3 mmol/L (3.5-5.1); Protein, Total 5.7 g/dL (6.4-8.2)
[2017-09-12 17:28] LABS: Anisocytosis 2+; Blood Morphology Comment NOTED (NOT SEEN); Platelet Estimate ADEQ; Urine White Blood Cell Casts OK
[2017-09-12 17:47] LABS: Urine Bacteria <20 /HPF (<20); Urine RBC <5 /HPF (NONE SEEN)
--- NOTE | 2017-09-12 17:47 | ER ---
Nurse's Notes [facility] Name: Elva Jenkins Age: 87 yrs Sex: Female : 1930 Arrival Date: 09/12/2017 Time: 16:04 Bed 8 Private MD: Diagnosis: Left sided colitis Presentation: 09/12 16:08 Presenting complaint: Patient states: called ems for back pain, and delaney hip pain. given ch Toradol in route, 30 mg and states it helped a lot. pt has been having black tarry diarrhea for the past few days. take blood thinner. Transition of care: patient was not received from another setting of care. Onset of symptoms was September 12, 2017 at 10:00. Risk Assessment: Do you want to hurt yourself or someone else? Patient reports no desire to harm self or others. Initial Sepsis Screen: Does the patient meet any 2 criteria? HR > 90 bpm. Does the patient have a suspected source of infection? No. Patient's initial sepsis screen is negative. Care prior to arrival: Medication(s) given: toradol. 16:08 Method Of Arrival: EMS: [facility] 16:08 Acuity: TAVON 3 ch Triage Assessment: 16:23 General: Appears in no apparent distress. comfortable, Behavior is calm, cooperative, ch appropriate for age. Pain: Complains of pain in back Pain currently is 5 out of 10 on a pain scale. Neuro: Level of Consciousness is awake, alert, obeys commands, Oriented to person, place, time, situation. Cardiovascular: Heart tones S1 S2 present Capillary refill < 3 seconds in bilateral fingers toes Clubbing of nail beds is present Rhythm is sinus rhythm. Respiratory: Airway is patent Trachea midline Respiratory effort is even, unlabored, Breath sounds are coarse bilaterally. GI: Bowel sounds present X 4 quads. Abd is soft and non tender X 4 quads. Reports diarrhea, rectal bleeding, bloody stool, nausea. : No signs and/or symptoms were reported regarding the genitourinary system. Derm: Skin is pale. Musculoskeletal: Reports pain in back. Historical: - Allergies: 16:23 Asacol; ch 16:23 Demerol; ch 16:23 Humira; ch 16:23 Methotrexate; ch 16:23 Orencia; ch 16:23 Phenergan; ch 16:23 promethazine HCl; ch 16:23 Rituxan; ch 16:23 Sulfazine; ch - Home Meds: 16:23 alprazolam 0.25 mg Oral tab 1 tab BID PRN [Active]; prednisone 5 mg Oral tab 1 tab 2 ch times per day [Active]; furosemide 20 mg Oral tab 1 tab once daily [Active]; spironolactone 25 mg Oral tab 1 tab once daily [Active]; Daliresp 500 mcg oral tab 1 tab once daily [Active]; atorvastatin 40 mg Oral tab 1 tab once daily [Active]; prednisone 5 mg Oral tab 2 times per day [Active]; furosemide 20 mg Oral tab 1 tab once daily [Active]; Xarelto 20 mg oral tab 1 tab once daily [Active]; Hemocyte-Plus 106 mg iron- 1 mg oral cap [Active]; melatonin 10 mg Oral cap [Active]; famotidine 20 mg Oral tab 1 tab once daily [Active]; Symbicort 160-4.5 mcg/actuation inhalation HFAA 2 puffs 2 times per day [Active]; ProAir HFA 90 mcg/actuation inhalation HFAA 2 puffs every 4-6 hours [Active]; Spiriva with HandiHaler 18 mcg inhalation CpDv 1 cap once daily [Active]; Tylenol #3 Oral prn pain [Active]; benzonatate 200 mg Oral cap 1 cap 3 times per day [Active]; - PMHx: 16:23 Anxiety; Arthritis; COPD; Hypothyroidism; Hernia; colon mass; UTI; gastritis; rectal ch mass; TIA; c-diff 08/13/17; - PSHx: 16:23 bladder sling; Cholecystectomy; R knee; Appendectomy; Hysterectomy; temporal artery ch biopsy to rule out temporal arteritis; cataract; heart monitor implant; rectal mass removed; - Immunization history:: Adult Immunizations up to date. - Social history:: Smoking status: Patient/guardian denies using tobacco. - Ebola Screening: : Patient negative for fever greater than or equal to 101.5 degrees Fahrenheit, and additional compatible Ebola Virus Disease symptoms Patient denies exposure to infectious person Patient denies travel to an Ebola-affected area in the 21 days before illness onset No symptoms or risks identified at this time. Screenin:25 Abuse screen: Denies threats or abuse. Denies injuries from another. Nutritional ch screening: No deficits noted. Tuberculosis screening: No symptoms or risk factors identified. Fall Risk None identified. Assessment: 16:25 Reassessment: Patient appears in no apparent distress at this time. Patient and/or ch family updated on plan of care and expected duration. Pain level reassessed. Patient is alert, oriented x 3, equal unlabored respirations, skin warm/dry/pink. 17:04 Reassessment: Patient appears in no apparent distress at this time. No changes from previously documented assessment. Patient and/or family updated on plan of care and expected duration. Pain level reassessed. Patient is alert, oriented x 3, equal unlabored respirations, skin warm/dry/pink. 17:36 Reassessment: Patient appears in no apparent distress at this time. Patient and/or ch family updated on plan of care and expected duration. Pain level reassessed. erp in room to discuss plan of care with pt. 18:48 General: Appears in no apparent distress. comfortable, Behavior is calm, cooperative, ch appropriate for age. Neuro: No deficits noted. Respiratory: Airway is patent Respiratory effort is even, unlabored. 18:49 : pt has golf ball sized mass protruding from her rectum. Vital Signs: 16:25 BP 125 / 61; Pulse 110; Resp 20; Temp 99.2; Pulse Ox 100% on R/A; Weight 49.9 kg; ch Height 4 ft. 11 in. (149.86 cm); Pain 5/10; 17:04 BP 121 / 55; Pulse 107; Resp 22; Pulse Ox 100% on R/A; ch 17:36 BP 111 / 58; Pulse 102; Resp 18; Pulse Ox 99% on R/A; ch 18:48 BP 127 / 71; Pulse 96; Resp 22; Temp 99.8; Pulse Ox 99% on R/A; Pain 2/10; ch 16:25 Body Mass Index 22.22 (49.90 kg, 149.86 cm) ED Course: 16:04 Patient arrived in ED. iw 16:04 Yayo Garcia MD is Attending Physician. gs 16:08 Joyce Edwards, GUME is Primary Nurse. ph 16:12 Triage completed. 16:23 Arm band placed on left wrist. Patient placed in an exam room, on a stretcher, on pulse oximetry. 16:25 No apparent distress. Resting quietly. ch 16:25 Patient has correct armband on for positive identification. Placed in gown. Bed in low ch position. Call light in reach. Side rails up X 1. Adult w/ patient. Pulse ox on. NIBP on. 16:45 Patient moved to UT. 2 16:45 Initial lab(s) drawn, by me, sent to lab. Maintain EMS IV. Dressing intact. Good blood ch return noted. Site clean \T\ dry. Gauge \T\ site: [address] AC. 16:55 CT completed. Patient tolerated procedure well. Patient moved back from UT. 2 16:55 CT Stone Protocol In Process Unspecified. EDMS 17:34 Primary Nurse role handed off by Joyce Edwards RN ch 17:34 Christina Roldan, RN is Primary Nurse. ch 17:36 Warm blanket given. ch 17:36 Urine collected: straight cath specimen, clear, Amount Returned: 400mL. Straight cath ch inserted, using sterile technique, 12 Fr. Specimen obtained. Patient tolerated well. 17:46 Hasmukh Pollock MD is Hospitalizing Provider. gs 18:30 Inserted saline lock: 22 gauge in left antecubital area, using aseptic technique. Blood ch collected. 18:30 Served as a triage register nurse during rectal exam. ch 20:00 Patient admitted, IV remains in place. fc Administered Medications: 17:34 Drug: NS 0.9% 750 ml Route: IV; Rate: 1 bolus; Site: right antecubital; ch 18:03 Follow up: IV Status: Completed infusion; IV Intake: 1000ml ch 18:13 Drug: cefOXitin 1 grams Route: IVPB; Infused Over: 30 mins; Site: right antecubital; ch 19:00 Follow up: IV Status: Completed infusion; IV Intake: 100ml ch Intake: 18:03 IV: 1000ml; Total: 1000ml. ch 19:00 IV: 100ml; Total: 1100ml. ch Outcome: 17:47 Decision to Hospitalize by Provider. 19:59 Admitted to Tele accompanied by tech, via stretcher, room 208, with chart, Report fc called to Krista DUNAWAY 19:59 Condition: good 19:59 Discharge instructions given to patient, family, Instructed on the need for admit, Demonstrated understanding of instructions, Prescriptions given X none pt being admitted 20:13 Patient left the ED. ak1 Signatures: Dispatcher [employer] EDMS Roldan , RN RN Mariajose Hernández, RN RN Ruth Arce RN RN Petty Knight RN RN ak1 Hall, Patricia, RN RN William, Alise [facility] Yayo Garcia MD MD
--- NOTE | 2017-09-12 17:47 | EDPHYS ---
Physician Documentation [facility] Name: Elva Jenkins Age: 87 yrs Sex: Female : 1930 Arrival Date: 09/12/2017 Time: 16:04 Bed 8 Private MD: ED Physician Yayo Garcia HPI: 09/12 17:41 This 87 yrs old Female presents to ER via EMS with complaints of diarrhea, gi gs bleeding. 17:41 The patient presents with abdominal pain. Onset: The symptoms/episode began/occurred gs yesterday. The symptoms do not radiate. Associated signs and symptoms: Pertinent positives: blood in stools. The symptoms are described as crampy. Modifying factors: The symptoms are alleviated by nothing, the symptoms are aggravated by nothing. Severity of pain: At its worst the pain was moderate in the emergency department the pain has resolved. The patient has experienced similar episodes in the past, a few times. Historical: - Allergies: 16:23 Asacol; ch 16:23 Demerol; ch 16:23 Humira; ch 16:23 Methotrexate; ch 16:23 Orencia; ch 16:23 Phenergan; ch 16:23 promethazine HCl; ch 16:23 Rituxan; ch 16:23 Sulfazine; ch - Home Meds: 16:23 alprazolam 0.25 mg Oral tab 1 tab BID PRN [Active]; prednisone 5 mg Oral tab 1 tab 2 ch times per day [Active]; furosemide 20 mg Oral tab 1 tab once daily [Active]; spironolactone 25 mg Oral tab 1 tab once daily [Active]; Daliresp 500 mcg oral tab 1 tab once daily [Active]; atorvastatin 40 mg Oral tab 1 tab once daily [Active]; prednisone 5 mg Oral tab 2 times per day [Active]; furosemide 20 mg Oral tab 1 tab once daily [Active]; Xarelto 20 mg oral tab 1 tab once daily [Active]; Hemocyte-Plus 106 mg iron- 1 mg oral cap [Active]; melatonin 10 mg Oral cap [Active]; famotidine 20 mg Oral tab 1 tab once daily [Active]; Symbicort 160-4.5 mcg/actuation inhalation HFAA 2 puffs 2 times per day [Active]; ProAir HFA 90 mcg/actuation inhalation HFAA 2 puffs every 4-6 hours [Active]; Spiriva with HandiHaler 18 mcg inhalation CpDv 1 cap once daily [Active]; Tylenol #3 Oral prn pain [Active]; benzonatate 200 mg Oral cap 1 cap 3 times per day [Active]; - PMHx: 16:23 Anxiety; Arthritis; COPD; Hypothyroidism; Hernia; colon mass; UTI; gastritis; rectal ch mass; TIA; c-diff 08/13/17; - PSHx: 16:23 bladder sling; Cholecystectomy; R knee; Appendectomy; Hysterectomy; temporal artery ch biopsy to rule out temporal arteritis; cataract; heart monitor implant; rectal mass removed; - Immunization history:: Adult Immunizations up to date. - Social history:: Smoking status: Patient/guardian denies using tobacco. - Ebola Screening: : Patient negative for fever greater than or equal to 101.5 degrees Fahrenheit, and additional compatible Ebola Virus Disease symptoms Patient denies exposure to infectious person Patient denies travel to an Ebola-affected area in the 21 days before illness onset No symptoms or risks identified at this time. ROS: 17:41 All other systems are negative. gs Exam: 17:41 Head/Face: Normocephalic, atraumatic. Eyes: Pupils equal round and reactive to light, gs extra-ocular motions intact. Lids and lashes normal. Conjunctiva and sclera are non-icteric and not injected. Cornea within normal limits. Periorbital areas with no swelling, redness, or edema. ENT: Nares patent. No nasal discharge, no septal abnormalities noted. Tympanic membranes are normal and external auditory canals are clear. Oropharynx with no redness, swelling, or masses, exudates, or evidence of obstruction, uvula midline. Mucous membranes moist. Neck: Trachea midline, no thyromegaly or masses palpated, and no cervical lymphadenopathy. Supple, full range of motion without nuchal rigidity, or vertebral point tenderness. No Meningismus. Chest/axilla: Normal chest wall appearance and motion. Nontender with no deformity. No lesions are appreciated. 17:41 Respiratory: Lungs have equal breath sounds bilaterally, clear to auscultation and percussion. No rales, rhonchi or wheezes noted. No increased work of breathing, no retractions or nasal flaring. Abdomen/GI: Soft, non-tender, with normal bowel sounds. No distension or tympany. No guarding or rebound. No evidence of tenderness throughout. Back: No spinal tenderness. No costovertebral tenderness. Full range of motion. Skin: Warm, dry with normal turgor. Normal color with no rashes, no lesions, and no evidence of cellulitis. MS/ Extremity: Pulses equal, no cyanosis. Neurovascular intact. Full, normal range of motion. Neuro: Awake and alert, GCS 15, oriented to person, place, time, and situation. Cranial nerves II-XII grossly intact. Motor strength 5/5 in all extremities. Sensory grossly intact. Cerebellar exam normal. Normal gait. 17:41 Constitutional: The patient appears alert, awake. 17:41 Cardiovascular: Rate: tachycardic, Rhythm: regular, Pulses: no pulse deficits are appreciated. 17:41 Abdomen/GI: Rectal exam: hemorrhoid(s), rectal mass granulated 5x5cm. Vital Signs: 16:25 BP 125 / 61; Pulse 110; Resp 20; Temp 99.2; Pulse Ox 100% on R/A; Weight 49.9 kg; ch Height 4 ft. 11 in. (149.86 cm); Pain 5/10; 17:04 BP 121 / 55; Pulse 107; Resp 22; Pulse Ox 100% on R/A; ch 17:36 BP 111 / 58; Pulse 102; Resp 18; Pulse Ox 99% on R/A; ch 18:48 BP 127 / 71; Pulse 96; Resp 22; Temp 99.8; Pulse Ox 99% on R/A; Pain 2/10; ch 16:25 Body Mass Index 22.22 (49.90 kg, 149.86 cm) MDM: 16:11 Patient medically screened. gs 17:41 Differential diagnosis: bowel obstruction, diverticulitis, gastritis, GI Bleed. Data reviewed: vital signs, nurses notes. Physician consultation: Hasmukh Pollock MD and will see patient in inpatient room. 09/12 16:12 Order name: Basic Metabolic Panel; Complete Time: 18:25 09/12 16:12 Order name: CBC with Diff; Complete Time: 18:25 09/12 16:12 Order name: Hepatic Function; Complete Time: 18:25 09/12 16:12 Order name: Lipase; Complete Time: 18:25 09/12 16:12 Order name: Urine Microscopic Only; Complete Time: 18:25 09/12 16:12 Order name: Type And Screen; Complete Time: 18:25 09/12 16:12 Order name: IV Saline Lock; Complete Time: 17:35 09/12 16:12 Order name: CT Stone Protocol; Complete Time: 17:17 gs 09/12 17:01 Order name: CBC Smear Scan; Complete Time: 18:25 EDAZ 09/12 17:33 Order name: Urine Dipstick--Ancillary (enter results); Complete Time: 18:25 ag 09/12 17:47 Order name: Blood Culture* 09/12 17:52 Order name: CONS Physician Consult EDAZ 09/12 16:12 Order name: Labs collected and sent; Complete Time: 17:35 09/12 16:12 Order name: Urine Dipstick-Ancillary (obtain specimen); Complete Time: 17:35 Administered Medications: 17:34 Drug: NS 0.9% 750 ml Route: IV; Rate: 1 bolus; Site: right antecubital; 18:03 Follow up: IV Status: Completed infusion; IV Intake: 1000ml 18:13 Drug: cefOXitin 1 grams Route: IVPB; Infused Over: 30 mins; Site: right antecubital; 19:00 Follow up: IV Status: Completed infusion; IV Intake: 100ml ch Disposition: 09/12/17 17:47 Hospitalization ordered by Hasmukh Pollock for Observation. Preliminary diagnosis is Left sided colitis. - Bed requested for Telemetry/MedSurg (observation). - Status is Observation. ak1 - Condition is Stable. - Problem is new. - Symptoms have improved. UTI on Admission? No Critical care time excluding procedures: 17:47 Critical care time: Bedside Care: 10 minutes, Consultation: 10 minutes, Family Intervention: 10 minutes. Total time: 30 minutes Signatures: Dispatcher [employer] Christina Carey RN RN ch Gallardo, Ana ag Krenek, Amber, RN RN ak1 Yayo Garcia MD MD Corrections: (The following items were deleted from the chart) 18:32 17:47 Hospitalization Ordered by Hasmukh Pollock MD for Observation. Preliminary diagnosis ag is Left sided colitis. Bed requested for Telemetry/MedSurg (observation). Status is Observation. Condition is Stable. Problem is new. Symptoms have improved. UTI on Admission? No. gs 20:13 18:32 09/12/2017 17:47 Hospitalization Ordered by Hasmukh Pollock MD for Observation. ak1 Preliminary diagnosis is Left sided colitis. Bed requested for Telemetry/MedSurg (observation). Status is Observation. Condition is Stable. Problem is new. Symptoms have improved. UTI on Admission? No. ag
[2017-09-12 17:48] LABS: Urine Amorphous Sediment 1+ /HPF (NONE SEEN); Urine Culture Reflex Order NOT NEEDED; Urine Mucus 1+ /HPF (NONE SEEN)
[2017-09-12 17:51] LABS: Urine Blood TRACE (NEG); Urine Glucose NEGATIVE (NEG); Urine Protein NEGATIVE (NEG); Urine pH 5.5 (5.0-7.0)
[2017-09-12] MEDS ORDERED: ONDANSETRON 4 MG/2 ML VIAL IV PRN (17:52)
[2017-09-12] MEDS ORDERED: CEFOXITIN/SWI 1gm 1 GM/10 ML SYR ONE (18:09)
[2017-09-12] MEDS ORDERED: CEFOXITIN/SWI 1gm 1 GM/10 ML SYR IVP SCH (18:15)
[2017-09-12] MEDS: D5 0.45 NS 1,000 ML IV SCH (20:38)
[2017-09-12] MEDS: ACETAMINOPHEN 500 MG TAB PO PRN (21:45)
[2017-09-13] MEDS ORDERED: WATER FOR INJ,STERILE 10 ML ONE (00:39)
[2017-09-13] MEDS ORDERED: VANCOMYCIN 500 MG/VIAL ONE (01:06)
[2017-09-13] MEDS: D5 0.45 NS 1,000 ML IV SCH ×3 (01:32→17:21)
[2017-09-13] MEDS: ACETAMINOPHEN 500 MG TAB PO PRN (02:45)
[2017-09-13 05:07] LABS: Absolute Lymphocytes (CBC) 1.9 K/uL (0.7-4.9); Absolute Monocytes 0.7 K/uL (0.1-1.3); Absolute Neutrophil 13.2 K/uL (1.8-8.0); Basophils % 0.2 % (0-1.3); Eosinophils % 0.6 % (0-4.4); Hematocrit 33.4 % (36.0-45.0); MCH 29.9 pg (27.0-35.0); MCV 92.1 fL (80-100); MPV 6.9 fL (7.6-11.3); Monocytes % 4.6 % (3.3-12.3); RBC Red Blood Cell Count 3.63 M/uL (3.86-4.86)
[2017-09-13] MEDS: VANCOMYCIN ORAL SOLN 250 MG/5 ML OSYR PO SCH ×4 (05:56→17:21)
[2017-09-13 06:22] LABS: BUN Blood Urea Nitrogen 8 mg/dL (7-18); Bicarbonate 27 mmol/L (21-32); Glucose Level 106 mg/dL (74-106); Magnesium 1.8 mg/dL (1.8-2.4); Sodium Level 139 mmol/L (136-145)
[2017-09-13 06:25] LABS: Potassium 2.9 mmol/L (3.5-5.1)
--- NOTE | 2017-09-13 06:34 | HP ---
Date of Admission: 09/12/2017 Chief Complaint: Diarrhea and bleeding. History Of Present Illness: This is an 87-year-old female patient, who recently had Clostridium diff icile colitis in the beginning of this last month in August 2017 and during that hospital admission, richard rivera was also diagnosed as having DVT of lower extremity and pulmonary embolism. The patient was sent h ome on August 18, 2017, with Xarelto 15 mg twice a day for 21 days and then 20 mg daily, which she has s tarted 20 mg daily dose as of last week. She was also sent home with oral vancomycin that she has co mpleted. She was doing fine as far as diarrhea is concerned, but now in the last few days, she start ed having increasing diarrhea with some blood in stool. So, she came into emergency room today. Aft er she was evaluated, she was admitted to the hospital. She denies any fever, chills, nausea, vomiti ng, or abdominal pain. Medications: List reviewed. Review of Systems: GI: As mentioned above. Allergies: SHE IS LISTED ALLERGIC TO SULFA CAUSING HEADACHE, RITUXIMAB CAUSING LEG SWELLING, PROM ETHAZINE CAUSING HALLUCINATION AND LEG JERKING AND ARM JERKING, METHOTREXATE CAUSING DYSPNEA, MESALAM INE CAUSING SORE THROAT AND HIVES, ADALIMUMAB CAUSING FACE SWELLING, AND ABATACEPT CAUSING JOINT PAIN . Past Surgical History: Significant for hysterectomy, appendectomy, cholecystectomy, cataract surgery , and removal of benign rectal mass on August 02, 2017, done in [place]. Family History: Significant for parents who of old age at 99 and 95 years, sister with stroke a nd hypertension. Social History: Negative for smoking or alcohol use. Past Medical History: Significant for lymphedema of legs, hypertension, hypothyroidism, COPD, chroni c steroid therapy, rheumatoid arthritis, leg edema, hemorrhoid, Clostridium difficile colitis, DVT of leg, and pulmonary embolism. Physical Examination: Vital Signs: Last temperature 99.8, pulse 96, respiratory rate 22, blood pressure 127/79, oxygen sat uration 99%. Height 4 feet 11 inches. Weight 110 pounds. General: Awake, alert, oriented, not in distress. HEENT: Head atraumatic, normocephalic. Conjunctivae nonerythematous. Sclerae white. Mouth, no thr ush or edema noted. Ears/Nose, no mass, lesion, discharge noted. Neck: Supple. No JVD, lymph nodes, bruit, thyromegaly noted. Lungs: Bilateral good equal air entry. Clear to auscultation. No rhonchi. No rales. Heart: Normal heart sounds, no murmur or gallop. Abdomen: Soft, bowel sounds normal. No guarding, rigidity, tenderness, mass, hepatosplenomegaly, dis tention, or bruit noted. Extremities: No leg edema. No calf tenderness. Skin: No rash, ulcer, cellulitis. Lymphatics: No lymph node enlargement in neck, supraclavicular, infraclavicular region. Neuro: No focal neurological deficit. Chest: Unremarkable. External Genitalia: Deferred. Rectal: Deferred. Laboratory Data: White count 13.5, hemoglobin 12, platelets 238. Sodium 139, potassium 3.3, chlorid e 105, bicarb 31, BUN 12, creatinine 0.70, glucose 115. Liver function tests unremarkable. Lipase 2 27. Urinalysis trace blood, otherwise negative. CAT scan of abdomen done in the emergency room per kidney stone protocol shows wall thickening and edema and stranding of adjacent fat seen in the rectu m and distal sigmoid colon. No mass. No abscess. Impression: 1.Colitis. 2.Rule out Clostridium difficile colitis, recurrent. 3.Hypokalemia. 4.Lower gastrointestinal bleeding. 5.Chronic anticoagulation therapy. 6.Pulmonary embolism. 7.Deep vein thrombosis, legs. 8.Chronic obstructive pulmonary disease. 9.Chronic steroid therapy. 10.Hypertension. 11.Diverticulosis. 12.Rheumatoid arthritis. 13.Hypothyroidism. 14.Lymphedema, legs. Plan: Admit the patient to hospital for further evaluation and management of this problem. The anayeli ent is appropriate for inpatient and is expected to spend 2 midnights in the hospital. Stool C diff was ordered. We will discontinue antibiotic that was started in the emergency room. Start the patie nt on vancomycin 125 mg by mouth 4 times a day. Keep her on isolation for C diff until result is jimbo ilable. Home medications will be continued per order. She has not taken her dose of Xarelto today. Nurse was instructed when I saw her this evening who was in the room to make sure the patient gets h er Xarelto dose for today. I will see her tomorrow for followup, replace electrolytes per protocol, and details and plan of treatment discussed with her. The patient needs to stay on her chronic antic oagulation therapy because of her bilateral pulmonary emboli as well as deep vein thrombosis of leg w hich was diagnosed just about a month ago and we will have to monitor her blood work carefully for an y significant GI blood loss. At this point, she is hemodynamically stable. GI consult has been requ ested. ARNOL/MAGDA Voice ID: [id number]
[2017-09-13] MEDS: KCL 20 MEQ/100 mL IVPB 20 MEQ/100 ML BAG IV SCH ×3 (06:41→11:38)
[2017-09-13] MEDS ORDERED: HOME MED 1 EA UNK (Albuterol Sulfate [Proair Respiclick] 2 PUFF) IH PRN (08:43)
[2017-09-13] MEDS ORDERED: BENZONATATE 100 MG CAP PO PRN (08:43)
[2017-09-13] MEDS ORDERED: DOCUSATE NA 100 MG CAP PO PRN (08:43)
[2017-09-13] MEDS: HOME MED 1 EA UNK (Budesonide/Formoterol Fumarate [Symbicort 160-4.5 Mcg Inhaler] 2 PUFF) IH SCH ×2 (09:00→21:00)
[2017-09-13] MEDS: ROFLUMILAST 500 MCG TABLET PO SCH (09:00)
[2017-09-13] MEDS: FE SULF/FA/VIT B COMP & C TAB PO SCH (10:11)
[2017-09-13] MEDS: predniSONE 5 MG TAB PO SCH ×2 (10:11→21:36)
[2017-09-13] MEDS: ALPRAZOLAM 0.25 MG TABLET PO SCH (10:11)
[2017-09-13] MEDS: SPIRONOLACTONE 25 MG TABLET PO SCH ×2 (10:11→21:35)
[2017-09-13] MEDS: CODEINE 30MG/APAP 300MG TAB PO PRN ×2 (11:38→18:44)
[2017-09-13] MEDS ORDERED: MAGNESIUM SULFATE 1 gm IVPB 1 GM/100 ML BAG IV ONE (12:00)
--- NOTE | 2017-09-13 12:31 | PN ---
Date of Progress Note: 09/13/2017 Subjective: The patient was seen this morning for followup. She was sitting in the chair. No abdom inal pain, nausea. Diarrhea is better. Blood in stool is better overnight but this morning says she just does not feel good. No specific complaints. No chest pain. No shortness of breath. Objective: Vital Signs: Reviewed. HEENT: Examination unremarkable. Lungs: Clear to auscultation. Heart: Heart sounds normal. Abdomen: Soft, bowel sounds normal. No guarding, rigidity, tenderness, or distention. Extremities: Bilateral trace leg edema. The left lateral leg has skin tear. No active bleeding or discharge. The patient says this is the result of injury this morning when nurse or nursing staff wa s trying to help her. It was noted to be covered with clean dressing. Laboratory Data: White count 15.9, hemoglobin 10.9, platelets 214. Sodium 139, potassium 2.9, chlor tonya 106, bicarb 27, BUN 8, creatinine 0.60, glucose 106 magnesium 1.8. Impression: 1.Colitis. 2.Rule out Clostridium difficile colitis. 3.Hypokalemia. 4.Deep venous thrombosis, leg. 5.Pulmonary embolism. 6.Hypertension. 7.Chronic obstructive pulmonary disease. 8.Chronic steroid therapy. Plan: We will go ahead and continue current medications. Home medications will be continued per ord er. We will continue vancomycin. The patient is on clear liquid diet. We will advance it to 2 g so dium diet at lunch time. Replace electrolytes per protocol and I will see her tomorrow for followup. Still C. diff result is pending. Possible discharge tomorrow depending on her condition. Swallow treatment discussed with the patient. Contin severo [place]. ARNOL/MODL Voice ID: [id number] Report ID: [id number]
[2017-09-13] MEDS ORDERED: RIVAROXABAN 20 MG TABLET PO SCH (17:00)
[2017-09-13] MEDS ORDERED: PARoxetine HCl 10 MG TAB PO SCH (17:00)
[2017-09-13] MEDS ORDERED: RIVAROXABAN 10 MG TABLET PO SCH (17:00)
[2017-09-13] MEDS ORDERED: TIOTROPIUM (SPIRIVA) 5 SPRAYS/INHALER IH SCH (18:15)
[2017-09-13] MEDS ORDERED: MELATONIN 3 MG TABLET PO SCH (21:00)
[2017-09-13] MEDS ORDERED: ATORVASTATIN 40 MG TAB PO SCH (21:00)
[2017-09-13] MEDS: ENSURE CLEAR 200 ML CAN PO SCH (21:36)
[2017-09-13 23:14] VITALS: O2SAT 94
[2017-09-14] MEDS: VANCOMYCIN ORAL SOLN 250 MG/5 ML OSYR PO SCH ×3 (00:55→11:37)
[2017-09-14] MEDS: D5 0.45 NS 1,000 ML IV SCH ×2 (04:34→09:24)
[2017-09-14 05:43] LABS: BUN Blood Urea Nitrogen 7 mg/dL (7-18); Bicarbonate 26 mmol/L (21-32); Glucose Level 128 mg/dL (74-106); Magnesium 1.9 mg/dL (1.8-2.4); Potassium 3.7 mmol/L (3.5-5.1); Sodium Level 138 mmol/L (136-145)
[2017-09-14] MEDS: CODEINE 30MG/APAP 300MG TAB PO PRN (05:59)
[2017-09-14] MEDS ORDERED: KCL 20 MEQ/100 mL IVPB 20 MEQ/100 ML BAG IV SCH (06:00)
[2017-09-14] MEDS ORDERED: LEVOTHYROXINE SOD 0.05 MG TABLET PO SCH (06:00)
[2017-09-14] MEDS ORDERED: FAMOTIDINE 20 MG TAB PO SCH (08:00)
[2017-09-14 08:07] LABS: Absolute Monocytes 0.6 K/uL (0.1-1.3); Absolute Neutrophil 11.8 K/uL (1.8-8.0); Basophils % 0.2 % (0-1.3); Eosinophils % 0.5 % (0-4.4); Hematocrit 36.6 % (36.0-45.0); Lymphocytes % 13.8 % (15.3-44.8); MCH 29.9 pg (27.0-35.0); MCV 93.2 fL (80-100); MPV 7.4 fL (7.6-11.3); Monocytes % 4.3 % (3.3-12.3); RBC Red Blood Cell Count 3.93 M/uL (3.86-4.86)
[2017-09-14] MEDS: ENSURE CLEAR 200 ML CAN PO SCH (09:00)
[2017-09-14] MEDS: HOME MED 1 EA UNK (Budesonide/Formoterol Fumarate [Symbicort 160-4.5 Mcg Inhaler] 2 PUFF) IH SCH (09:00)
[2017-09-14 09:03] LABS: Platelet Estimate ADEQ; Urine White Blood Cell Casts OK
[2017-09-14 09:04] LABS: Anisocytosis 2+; Blood Morphology Comment NOTED (NOT SEEN)
[2017-09-14] MEDS: SPIRONOLACTONE 25 MG TABLET PO SCH (09:23)
[2017-09-14] MEDS: ROFLUMILAST 500 MCG TABLET PO SCH (09:23)
[2017-09-14] MEDS: predniSONE 5 MG TAB PO SCH (09:23)
[2017-09-14] MEDS: FE SULF/FA/VIT B COMP & C TAB PO SCH (09:23)
[2017-09-14] MEDS: ALPRAZOLAM 0.25 MG TABLET PO SCH (09:23)
[2017-09-14 12:52] VITALS: BP 108/51; TEMP 98.3
--- NOTE | 2017-09-15 22:18 | DS ---
Date of Discharge: 09/14/2017 Disposition: Discharged to go home. Physical Examination: HEENT: Unremarkable. Lungs: Clear to auscultation. Heart: Sounds normal. Abdomen: Soft, bowel sounds normal. No guarding, rigidity, tenderness, or distention. Extremities: Trace edema, nonpitting. Left anterolateral leg has superficial skin tear. No bleedin g. No discharge. Surrounding skin is normal. This is unchanged from yesterday's exam. Hospital Course: This is an 87-year-old female patient, who was admitted to the hospital with diarrh ea and blood in stool. Please see dictated H and P for more information. The patient has a history of Clostridium difficile colitis which was diagnosed almost a month ago when she was in the hospital last time with DVT of leg and pulmonary embolism. She was treated with vancomycin therapy for 10-12 days. The patient came into emergency room with these complaints of diarrhea and rectal bleeding. B leeding was of small amount. No rectal pain. She has some vague abdominal discomfort with this diar sonia. No fever or chills. No vomiting. After she was evaluated in the ER, she was admitted to the hospital and I suspected recurrence of Clostridium difficile colitis. So from the beginning she was started on oral vancomycin and she was kept in isolation. Stool was sent for C. diff, which came dereck k positive. The patient was made aware of her diagnosis. She is responding well to vancomycin thera py. She still has some diarrhea but it is improving. She has some vague abdominal discomfort with t his diarrhea and that is expected to improve as the time goes on. Her bleeding problem has improved. She remained on her anticoagulant therapy with Xarelto for her DVT and pulmonary embolism. There w as no significant drop in her hemoglobin. Her labs done during this hospitalization, initial white c ount 13.5, hemoglobin 12, platelets 238. Yesterday, white count 15.9, hemoglobin 10.9, platelets 214 . Repeat white count today is 14,000 range. Her initial potassium was 3.3 when she came in yesterda y, it dropped down to 2.9. Potassium was corrected with help of electrolyte replacement protocol and this morning, potassium is 3.7, BUN 7, creatinine 0.50, magnesium 1.9, sodium 138. Her last white c ount today is 14.6, hemoglobin 11.7, platelets 214. CAT scan of the abdomen had shown changes of col itis. No mass. No abscess. Final Diagnoses: 1.Clostridium difficile colitis, recurrent. 2.Hypokalemia. 3.Lower gastrointestinal bleeding. 4.Chronic anticoagulation therapy. 5.Pulmonary embolism. 6.Deep vein thrombosis, legs. 7.Chronic obstructive pulmonary disease. 8.Chronic steroid therapy. 9.Hypertension. 10.Diverticulosis. 11.Rheumatoid arthritis. 12.Hypothyroidism. 13.Lymphedema, legs. 14.Anemia. Discharge Medications And Instructions: 1.Continue all prior home medications. 2.Take vancomycin 125 mg 1 capsule by mouth every 6 hours for 2 weeks and 1 capsule by mouth 3 times a day for 5 days, then 1 capsule by mouth 2 times a day for 5 days, then 1 capsule by mouth daily fo r 5 days, then stop. 3.The patient to get stool test for C. diff 1 week after completion of vancomycin therapy and follow up at my office as per instructions. ARNOL/MAGDA Voice ID: [id number] Report ID: [id number]
== END 2017-09-14 13:46 | disposition home or self-care (01) | DRG 371 ==
LOC: ER 16:02 → ERHOLD 17:51 → 2ND 19:35 → OBSVTOIN 22:48
PROVIDERS: ADMIT Internal Medicine; ATTEND Internal Medicine
DX: A04.72 Enterocolitis due to Clostridium difficile, not specified as recurrent (principal); I26.99 Other pulmonary embolism without acute cor pulmonale; K92.1 Melena; I82.409 Acute embolism and thrombosis of unspecified deep veins of unspecified lower extremity; E87.6 Hypokalemia; K57.90 Diverticulosis of intestine, part unspecified, without perforation or abscess without bleeding; E03.9 Hypothyroidism, unspecified; J44.9 Chronic obstructive pulmonary disease, unspecified; M06.9 Rheumatoid arthritis, unspecified; I89.0 Lymphedema, not elsewhere classified; Z79.52 Long term (current) use of systemic steroids; Z79.01 Long term (current) use of anticoagulants; Z88.2 Allergy status to sulfonamides; I10 Essential (primary) hypertension
CPT/HCPCS: 36415; 51702; 74176; 76377; 80048; 80076; 81003; 81015; 83690; 83735; 84132; 85025; 86850; 86900; 86901; 87040; 87493; 96365; 99285; J2405; J3475; J7030; J7512

== ENCOUNTER 2017-09-16 06:42 | Emergency (ER) | payer OTHER ==
--- OUTSIDE RECORDS SUMMARY | 2017-09-16 06:44 | XMS REPORT | Clinical Summary ---
:1930 Author Organization [facility] Address [address] [place] [address] Care Team Providers Name Role Phone Asked, [...] Hiatal hernia ( Primary RPratima, Dx) after 09/15/2016 Family History Medical History Relation Name Comments [...] Taken Blood Pressure 154/73 04/19/2017 11:52 AM [facility] Pulse 101 04/19/2017 1:00 PM [facility] Temperature 36.7 C (98 F) 04/19/2017 11:52 AM [facility] Respiratory Rate 20 04/19/2017 1:00 PM [facility] Oxygen Saturation 96% 04/19/2017 2:33 PM [facility] Inhaled Oxygen Concentration - - Weight 54.4 kg (120 lb) 04/12/2017 12:01 PM [facility] Height 149.9 cm (4' 11") 04/12/2017 12:01 PM [facility] Body Mass Index 24.24 04/12/2017 12:01 PM [facility] Plan of Treatment Health Maintenance Due Date Last Done Comments SHINGRIX VACCINE (#1) 1981 ZOSTER VACCINE 1991 PNEUMOCOCCAL POLYSACCHARIDE VACCINE AGE 65 AND OVER 1996 PNEUMOCOCCAL-13 1996 INFLUENZA VACCINE 10/12/2017 Implants Implanted Type Area Branch Account Manager Device Identifier Expiration Date Model / Serial / Lot Reveal Linq-02/02/2016 Implanted: Qty: 1 on 02/02/2016 Procedures Procedure Name Priority Date/Time Associated Comments Diagnosis US DUPLEX VENOUS Routine 04/19/2017 11:11 AM Results for this LOWER EXTREMITY [facility] procedure are in BILATERAL the results section. ESTIMATED GFR Routine 04/19/2017 4:00 AM Results for this [facility] procedure are in the results section. PHOSPHORUS LEVEL Routine 04/19/2017 4:00 AM Results for this [facility] procedure are in the results section. MAGNESIUM LEVEL Routine 04/19/2017 4:00 AM Results for this [facility] procedure are in the results section. BASIC METABOLIC Routine 04/19/2017 4:00 AM Results for this PANEL [facility] procedure are in the results section. HC COMPLETE BLD Routine 04/19/2017 3:45 AM Results for this COUNT W/AUTO DIFF [facility] procedure are in the results section. MAGNESIUM LEVEL Routine 04/18/2017 4:00 AM Results for this [facility] procedure are in the results section. ESTIMATED GFR Routine 04/18/2017 4:00 AM Results for this [facility] procedure are in the results section. PHOSPHORUS LEVEL Routine 04/18/2017 4:00 AM Results for this [facility] procedure are in the results section. HC COMPLETE BLD Routine 04/18/2017 4:00 AM Results for this COUNT W/AUTO DIFF [facility] procedure are in the results section. BASIC METABOLIC Routine 04/18/2017 4:00 AM Results for this PANEL [facility] procedure are in the results section. XR ABDOMEN 1 VW STAT 04/17/2017 1:00 PM Results for this PORTABLE [facility] procedure are in the results section. ESTIMATED GFR Routine 04/17/2017 4:00 AM Results for this [facility] procedure are in the results section. PHOSPHORUS LEVEL Routine 04/17/2017 4:00 AM Results for this [facility] procedure are in the results section. HC COMPLETE BLD Routine 04/17/2017 4:00 AM Results for this COUNT W/AUTO DIFF [facility] procedure are in the results section. BASIC METABOLIC Routine 04/17/2017 4:00 AM Results for this PANEL [facility] procedure are in the results section. XR ABDOMEN 2 VW AP W STAT 04/16/2017 9:23 AM Results for this UPRIGHT AND/OR [facility] procedure are in DECUBITUS the results section. HC COMPLETE BLD Routine 04/16/2017 4:15 AM Results for this COUNT W/AUTO DIFF [facility] procedure are in the results section. ESTIMATED GFR Routine 04/16/2017 4:00 AM Results for this [facility] procedure are in the results section. MAGNESIUM LEVEL Routine 04/16/2017 4:00 AM Results for this [facility] procedure are in the results section. PHOSPHORUS LEVEL Routine 04/16/2017 4:00 AM Results for this [facility] procedure are in the results section. BASIC METABOLIC Routine 04/16/2017 4:00 AM Results for this PANEL [facility] procedure are in the results section. XR ABDOMEN 1 VW STAT 04/15/2017 7:50 AM Results for this PORTABLE [facility] procedure are in the results section. ESTIMATED GFR Routine 04/15/2017 4:00 AM Results for this [facility] procedure are in the results section. PHOSPHORUS LEVEL Routine 04/15/2017 4:00 AM Results for this [facility] procedure are in the results section. MAGNESIUM LEVEL Routine 04/15/2017 4:00 AM Results for this [facility] procedure are in the results section. HC COMPLETE BLD Routine 04/15/2017 4:00 AM Results for this COUNT W/AUTO DIFF [facility] procedure are in the results section. BASIC METABOLIC Routine 04/15/2017 4:00 AM Results for this PANEL [facility] procedure are in the results section. HC COMPLETE BLD Routine 04/14/2017 4:10 AM Results for this COUNT W/AUTO DIFF [facility] procedure are in the results section. ESTIMATED GFR Routine 04/14/2017 4:00 AM Results for this [facility] procedure are in the results section. BASIC METABOLIC Routine 04/14/2017 4:00 AM Results for this PANEL [facility] procedure are in the results section. ECG 12-LEAD STAT 04/13/2017 4:43 AM Results for this [facility] procedure are in the results section. ESTIMATED GFR Routine 04/13/2017 3:44 AM Results for this [facility] procedure are in the results section. BASIC METABOLIC Routine 04/13/2017 3:44 AM Results for this PANEL [facility] procedure are in the results section. HC COMPLETE BLD Routine 04/13/2017 3:00 AM Results for this COUNT W/AUTO DIFF [facility] procedure are in the results section. XR CHEST 1 VW STAT 04/12/2017 3:48 PM Results for this PORTABLE [facility] procedure are in the results section. CENTRAL LINE Routine 04/12/2017 2:01 PM [facility] Procedure Note - Madhu Monsivais MD - 04/12/2017 2:00 PM [facility] Central line Performed by: MADHU MONSIVAIS Authorized [...] the procedure well with no immediate complications NM AN ELECTIVE ENDOTRACHEAL AIRWAY Routine 04/12/2017 1:58 PM [facility] Procedure Note - Madhu Monsivais MD - 04/12/2017 1:58 PM [facility] Airway Performed by: MADHU MONSIVAIS Authorized by: [...] HERNIA, 04/12/2017 1:30 PM Hiatal hernia LAPAROSCOPIC [facility] PREPARE FRESH FROZEN Timed 04/12/2017 4:00 AM PLASMA [facility] PREPARE RBC Timed 04/12/2017 4:00 AM [facility] ESTIMATED GFR Routine 04/12/2017 4:00 AM Results for this [facility] procedure are in the results section. TYPE AND SCREEN Timed 04/12/2017 4:00 AM Results for this [facility] procedure are in the results section. PARTIAL THROMBOPLASTIN Routine 04/12/2017 4:00 AM Results for this TIME (PTT) [facility] procedure are in the results section. PROTHROMBIN TIME WITH Routine 04/12/2017 4:00 AM Results for this INR [facility] procedure are in the results section. BASIC METABOLIC PANEL Routine 04/12/2017 4:00 AM Results for this [facility] procedure are in the results section. HC COMPLETE BLD COUNT Routine 04/12/2017 4:00 AM Results for this W/AUTO DIFF [facility] procedure are in the results section. XR CHEST 2 VW Routine 04/11/2017 7:49 PM Results for this [facility] procedure are in the results section. VANCOMYCIN LEVEL, TROUGH Timed 04/11/2017 3:00 PM Results for this [facility] procedure are in the results section. GRAM STAIN Routine 04/11/2017 10:00 AM Results for this [facility] procedure are in the results section. SPUTUM CULTURE Routine 04/11/2017 10:00 AM Results for this [facility] procedure are in the results section. ESTIMATED GFR Routine 04/11/2017 4:15 AM Results for this [facility] procedure are in the results section. BASIC METABOLIC PANEL Routine 04/11/2017 4:15 AM Results for this [facility] procedure are in the results section. HC COMPLETE BLD COUNT Routine 04/11/2017 4:15 AM Results for this W/AUTO DIFF [facility] procedure are in the results section. ESTIMATED GFR Routine 04/10/2017 4:15 AM Results for this [facility] procedure are in the results section. BASIC METABOLIC PANEL Routine 04/10/2017 4:15 AM Results for this [facility] procedure are in the results section. HC COMPLETE BLD COUNT Routine 04/10/2017 4:15 AM Results for this W/AUTO DIFF [facility] procedure are in the results section. ESTIMATED GFR Routine 04/09/2017 4:51 AM Results for this [facility] procedure are in the results section. BASIC METABOLIC PANEL Routine 04/09/2017 4:51 AM Results for this [facility] procedure are in the results section. HC COMPLETE BLD COUNT Routine 04/09/2017 4:51 AM Results for this W/AUTO DIFF [facility] procedure are in the results section. CT CHEST WO CONTRAST Routine 04/08/2017 8:17 PM Results for this [facility] procedure are in the results section. RESPIRATORY PATHOGEN Routine 04/08/2017 10:25 AM Results for this PANEL [facility] procedure are in the results section. XR CHEST 2 VW STAT 04/08/2017 9:36 AM Results for this [facility] procedure are in the results section. URINALYSIS SCREEN AND Routine 04/08/2017 8:33 AM Results for this MICROSCOPY, WITH REFLEX [facility] procedure are in TO CULTURE the results section. URINE CULTURE Routine 04/08/2017 8:33 AM Results for this [facility] procedure are in the results section. BLOOD CULTURE, AEROBIC & Routine 04/08/2017 8:18 AM Results for this ANAEROBIC [facility] procedure are in the results section. BLOOD CULTURE, AEROBIC & Routine 04/08/2017 8:16 AM Results for this ANAEROBIC [facility] procedure are in the results section. ESTIMATED GFR Routine 04/08/2017 8:00 AM Results for this [facility] procedure are in the results section. COMPREHENSIVE METABOLIC Routine 04/08/2017 8:00 AM Results for this PANEL [facility] procedure are in the results section. HC COMPLETE BLD COUNT Routine 04/08/2017 8:00 AM Results for this W/AUTO DIFF [facility] procedure are in the results section. HC COMPLETE BLD COUNT Routine 04/07/2017 5:00 AM Results for this W/AUTO DIFF [facility] procedure are in the results section. ESTIMATED GFR Routine 04/07/2017 4:00 AM Results for this [facility] procedure are in the results section. BASIC METABOLIC PANEL Routine 04/07/2017 4:00 AM Results for this [facility] procedure are in the results section. CLOSTRIDIUM DIFFICILE Routine 04/06/2017 1:15 PM Results for this TOXIN [facility] procedure are in the results section. HC COMPLETE BLD COUNT Routine 04/06/2017 5:15 AM Results for this W/AUTO DIFF [facility] procedure are in the results section. ESTIMATED GFR Routine 04/06/2017 4:00 AM Results for this [facility] procedure are in the results section. BASIC METABOLIC PANEL Routine 04/06/2017 4:00 AM Results for this [facility] procedure are in the results section. HC COMPLETE BLD COUNT Routine 04/05/2017 5:45 AM Results for this W/AUTO DIFF [facility] procedure are in the results section. ESTIMATED GFR Routine 04/05/2017 4:00 AM Results for this [facility] procedure are in the results section. BASIC METABOLIC PANEL Routine 04/05/2017 4:00 AM Results for this [facility] procedure are in the results section. HC COMPLETE BLD COUNT Routine 04/04/2017 4:48 AM Results for this W/AUTO DIFF [facility] procedure are in the results section. ESTIMATED GFR Routine 04/04/2017 4:00 AM Results for this [facility] procedure are in the results section. BASIC METABOLIC PANEL Routine 04/04/2017 4:00 AM Results for this [facility] procedure are in the results section. HC COMPLETE BLD COUNT Routine 04/03/2017 5:23 AM Results for this W/AUTO DIFF [facility] procedure are in the results section. ESTIMATED GFR Routine 04/03/2017 4:00 AM Results for this [facility] procedure are in the results section. HEPATIC FUNCTION PANEL Routine 04/03/2017 4:00 AM Results for this [facility] procedure are in the results section. C-REACTIVE PROTEIN Routine 04/03/2017 4:00 AM Results for this [facility] procedure are in the results section. PREALBUMIN LEVEL Routine 04/03/2017 4:00 AM Results for this [facility] procedure are in the results section. BASIC METABOLIC PANEL Routine 04/03/2017 4:00 AM Results for this [facility] procedure are in the results section. NM MYOCARDIAL PERFUSION Routine 04/02/2017 9:47 AM Results for this STRESS ONLY [facility] procedure are in the results section. CV STRESS TEST NUCLEAR Routine 04/02/2017 9:47 AM Results for this CARDIO [facility] procedure are in the results section. ECG 12-LEAD STAT 04/02/2017 6:09 AM Results for this [facility] procedure are in the results section. ESTIMATED GFR Routine 04/02/2017 5:30 AM Results for this [facility] procedure are in the results section. ALPHA-1 ANTITRYPSIN Routine 04/02/2017 5:30 AM Results for this LEVEL [facility] procedure are in the results section. BASIC METABOLIC PANEL Routine 04/02/2017 5:30 AM Results for this [facility] procedure are in the results section. HC COMPLETE BLD COUNT Routine 04/02/2017 5:30 AM Results for this W/AUTO DIFF [facility] procedure are in the results section. ECHOCARDIOGRAM 2D Routine 04/01/2017 4:35 PM Results for this COMPLETE W MMODE [facility] procedure are in SPECTRAL COLOR DOPPLER the results (78926) section. US CAROTID DUPLEX Routine 04/01/2017 4:08 PM Results for this BILATERAL [facility] procedure are in the results section. XR CHEST 2 VW Routine 04/01/2017 9:42 AM Results for this [facility] procedure are in the results section. ESTIMATED GFR Routine 03/31/2017 11:58 PM Results for this [facility] procedure are in the results section. COMPREHENSIVE METABOLIC Routine 03/31/2017 11:58 PM Results for this PANEL [facility] procedure are in the results section. PARTIAL THROMBOPLASTIN Routine 03/31/2017 11:58 PM Results for this TIME (PTT) [facility] procedure are in the results section. PROTHROMBIN TIME WITH Routine 03/31/2017 11:58 PM Results for this INR [facility] procedure are in the results section. HC COMPLETE BLD COUNT Routine 03/31/2017 11:58 PM Results for this W/AUTO DIFF [facility] procedure are in the results section. CT HEAD EXTERNAL STUDY Routine 03/25/2017 5:50 PM Results for this [facility] procedure are in the results section. CT ABD/PELVIC EXTERNAL Routine 03/24/2017 3:30 PM Results for this STUDY [facility] procedure are in the results section. after 09/15/2016 Results Pv duplex venous lower extremity (04/19/2017 11:11 AM) Narrative Performed At [facility] Vascular Ultrasound Laboratory Lower Extremity Venous Report [id number] [place] [address] Pat.Name:ELVA JENKINS Pat.ID:[id number] .Date: 04/19/2017Refer.MD:AMBROSIO OG MD Exam Time: 10:32:00 AM Study Type:LE Venous Height:59inWeight: 120lb BSA: 1.49 m2 DOBAge:1930,86Y Sex: FEMALESonogrphr: Eliel Ghotra RN, RVS Pat. Stat.:OutpatientTapeVol: PM, CPT - 4: 12147 Echo Event ID:[id number] Order ID:[id number] Reason for Study:Bilateral leg edema. Race:C SUMMARY: [...] Radiology Results In - 04/19/2017 12:56 PM [facility] Vascular Ultrasound Laboratory Lower Extremity Venous Report [address] [place] [address] Pat.Name: ELVA JENKINS Pat.ID: [id number] .Date: 04/19/2017 Refer.MD: AMBROSIO OG MD Exam Time: 10:32:00 AM Study Type:LE Venous Height: 59in Weight: 120lb BSA: 1.49 m2 Age: 2 1930,86Y Sex: FEMALE Sonogrphr: Eliel Ghotra RN, RVS Pat. Stat.:Outpatient Tape Vol: , [facility] - 4: 52594 Echo Event ID:[id number] Order ID: [id number] Reason for Study:Bilateral leg edema. Race: C [...] PM Tucker Kc MD Performing Organization Address [facility]/Zipcode Phone Number [facility] [address] [place] [address] Estimated GFR (04/19/2017 4:00 AM)Only the most recent of19 resultswithin the time period is included. GFR Non Af Amer 79 mL/min/1.73 m2 [facility] DEPARTMENT OF PATHOLOGY AND GENOMIC MEDICINE GFR Af Amer >90 mL/min/1.73 m2 [facility] DEPARTMENT OF Comment: PATHOLOGY AND GENOMIC Chronic [...] Americans. Specimen Plasma specimen Performing Organization Address [facility] Phone Number [facility] DEPARTMENT OF PATHOLOGY AND [address] [place] [address] [facility] Phosphorus level (04/19/2017 4:00 AM)Only the most recent of5 resultswithin the time period is included. Phosphorus 2.6 2.4 - 4.5 mg/dL [facility] DEPARTMENT OF PATHOLOGY AND GENOMIC MEDICINE Specimen Plasma specimen Performing Organization Address City/[facility] Phone Number [facility] DEPARTMENT OF PATHOLOGY AND [address] [place] [id number] [facility] Magnesium level (04/19/2017 4:00 AM)Only the most recent of4 resultswithin the time period is included. Magnesium 1.6 1.6 - 2.4 mg/dL [facility] DEPARTMENT OF PATHOLOGY AND GENOMIC MEDICINE Specimen Plasma specimen Performing Organization Address City/[facility] Phone Number [facility] DEPARTMENT OF PATHOLOGY AND [address] [place] [phone] [place] [address] Basic metabolic panel (04/19/2017 4:00 AM)Only the most recent of17 resultswithin the time period is included. Sodium 141 135 - 148 mEq/L [facility] DEPARTMENT OF PATHOLOGY AND GENOMIC MEDICINE Potassium 3.4 (L) 3.5 - 5.0 mEq/L [facility] DEPARTMENT OF PATHOLOGY AND GENOMIC MEDICINE Chloride 100 98 - 112 mEq/L [facility] DEPARTMENT OF PATHOLOGY AND GENOMIC MEDICINE CO2 30 24 - 31 mEq/L [facility] DEPARTMENT OF PATHOLOGY AND GENOMIC MEDICINE Anion gap 11 7 - 15 mEq/L [facility] DEPARTMENT OF PATHOLOGY Comment: [facility] Starting from June , anion gap calculation no longer incorporates potassium. Please note the change. BUN 7 (L) 8 - 23 mg/dL [facility] DEPARTMENT OF PATHOLOGY AND GENOMIC MEDICINE Creatinine 0.7 0.5 - 0.9 mg/dL [facility] DEPARTMENT OF PATHOLOGY AND GENOMIC MEDICINE Glucose 117 (H) 65 - 99 mg/dL [facility] DEPARTMENT OF PATHOLOGY AND GENOMIC MEDICINE Calcium 8.2 (L) 8.8 - 10.2 mg/dL [facility] DEPARTMENT OF PATHOLOGY AND GENOMIC MEDICINE Specimen Plasma specimen Performing Organization Address City/[facility] Phone Number [facility] DEPARTMENT PATHOLOGY AND [address] [place] [phone] [facility] CBC with platelet and differential (04/19/2017 3:45 AM)Only the most recent of19 resultswithin the time period is included. WBC 10.26 4.50 - 11.00 k/uL [facility] DEPARTMENT OF PATHOLOGY AND GENOMIC MEDICINE RBC 2.89 (L) 4.20 - 5.50 m/uL [facility] DEPARTMENT OF PATHOLOGY AND GENOMIC MEDICINE HGB 9.0 (L) 12.0 - 16.0 g/dL [facility] DEPARTMENT OF PATHOLOGY AND GENOMIC MEDICINE HCT 27.2 (L) 37.0 - 47.0 % [facility] DEPARTMENT OF PATHOLOGY AND GENOMIC MEDICINE MCV 94.1 82.0 - 100.0 fL [facility] DEPARTMENT OF PATHOLOGY AND GENOMIC MEDICINE MCH 31.1 27.0 - 34.0 pg [facility] DEPARTMENT OF PATHOLOGY AND GENOMIC MEDICINE MCHC 33.1 31.0 - 37.0 g/dL [facility] DEPARTMENT OF PATHOLOGY AND GENOMIC MEDICINE RDW - SD 48.7 37.0 - 55.0 fL [facility] DEPARTMENT OF PATHOLOGY AND GENOMIC MEDICINE MPV 9.1 8.8 - 13.2 fL [facility] DEPARTMENT OF PATHOLOGY AND GENOMIC MEDICINE Platelet count 305 150 - 400 k/uL [facility] DEPARTMENT OF PATHOLOGY AND GENOMIC MEDICINE Nucleated RBC 0.00 /100 WBC [facility] DEPARTMENT OF PATHOLOGY AND GENOMIC MEDICINE Neutrophils 65.7 39.0 - 69.0 % [facility] DEPARTMENT OF PATHOLOGY AND GENOMIC MEDICINE Lymphocytes 26.3 25.0 - 45.0 % [facility] DEPARTMENT OF PATHOLOGY AND GENOMIC MEDICINE Monocytes 5.9 0.0 - 10.0 % [facility] DEPARTMENT OF PATHOLOGY AND GENOMIC MEDICINE Eosinophils 1.3 0.0 - 5.0 % [facility] DEPARTMENT OF PATHOLOGY AND GENOMIC MEDICINE Basophils 0.3 0.0 - 1.0 % [facility] DEPARTMENT OF PATHOLOGY AND GENOMIC MEDICINE Immature granulocytes 0.5Comment: 0.0 - 1.0 % [facility] DEPARTMENT OF "Immature PATHOLOGY AND GENOMIC granulocytes" MEDICINE (promyelocytes, myelocytes, metamyelocytes) Specimen Blood Performing Organization Address City/State/Zipcode Phone Number [facility] DEPARTMENT OF PATHOLOGY AND [address] [place] [address] [facility] MEDICINE XR Abdomen 1 Vw Portable (04/17/2017 [...] noted. Midline skin digna are also present. [facility]-[id number] Procedure Note Hm Interface, Radiology Results Incoming - 04/17/2017 1:07 PM [facility] EXAMINATION: XR ABDOMEN 1 VW PORTABLE CLINICAL HISTORY: Distention COMPARISON: April 16, 2017 IMPRESSION: Diffuse bowel distention, most pronounced in the right colon, is without significant change. The cecum measures approximately 7.5 cm. This is suggestive of ileus. Left femoral line is again noted. Midline skin digna are also present. [facility]-[id number] Performing Organization Address City/State/[facility] Phone Number [facility] [address] [place] [address] XR Abdomen 2 Vw Ap W Upright [...] base with a tiny left pleural effusion. [facility]-[id number] Procedure Note Interface, Radiology Results Incoming - 04/16/2017 9:31 AM [facility] EXAMINATION: XR ABDOMEN 2 VW AP W [...] base with a tiny left pleural effusion. [facility]-[id number] Performing Organization Address [facility] Phone Number [facility] [address] [place] [address] ECG 12 lead (04/13/2017 4:43 AM)Only the most recent of2 resultswithin the time period is included. Ventricular rate 112 [facility] Atrial rate 112 [facility] NM interval 122 [facility] QRSD interval 72 [facility] QT interval 330 [facility] QTC interval 450 [facility] P axis 1 55 [facility] QRS axis 1 21 [facility] T wave axis 40 [facility] EKG impression Sinus tachycardia-Otherwise normal ECG-In [facility] M[facility] automated comparison with ECG of 02-APR-2017 06:09,-No significant change was found- Performing Organization Address [facility]/Zipcode Phone Number [facility] MUSE [address] [place] [address] XR Chest 1 Vw Portable (04/12/2017 3:48 PM) Narrative Performed At Examination:XR CHEST 1 VW PORTABLE [facility] Clinical history:"Attempted central line placements" Comparison:None IMPRESSION: Lungs are clear. Heart size is within normal limits. Bones are osteopenic. Left cervical calcifications are seen. [id number] Procedure Note Hm Interface, Radiology Results Incoming - 04/12/2017 4:14 PM [facility] Examination: XR CHEST 1 VW PORTABLE Clinical history: "Attempted central line placements" Comparison: None IMPRESSION: Lungs are clear. Heart size is within normal limits. Bones are osteopenic. Left cervical calcifications are seen. [id number] Performing Organization Address [facility]/Zipcode Phone Number [facility] [address] [place] [address] Partial thromboplastin time, activated (04/12/2017 4:00 AM)Only the most recent of2 resultswithin the time period is included. PTT 25.6 23.0 - 36.0 sec [facility] DEPARTMENT OF PATHOLOGY Comment: AND GENOMIC MEDICINE PTT therapeutic range for unfractionated heparin is 61.0-112.0 seconds which corresponds to Anti-Xa 0.3-0.7 U/ml. Specimen Blood Performing Organization Address [facility]/Zipcode Phone Number [facility] DEPARTMENT OF PATHOLOGY AND [address] [place] [address] [employer] [place] Prothrombin time with INR (04/12/2017 4:00 AM)Only the most recent of2 resultswithin the time period is included. Prothrombin time 13.2 12.0 - 15.0 sec [facility] DEPARTMENT OF PATHOLOGY AND GENOMIC MEDICINE INR 1.0 [facility] DEPARTMENT OF Comment: PATHOLOGY AND GENOMIC The International Normalized Ratio (INR) is a therapeutic MEDICINE monitoring tool for patients who are stable on oral anticoagulant therapy. An INR of 2.0-3.0 is suggested for deep vein thrombosis/pulmonary embolism. Specimen Blood Performing Organization Address City/State/Zipcode Phone Number [facility] DEPARTMENT OF PATHOLOGY AND [address] [place] [address] GENOMIC MEDICINE Type and screen (04/12/2017 4:00 AM) ABO grouping A [facility] DEPARTMENT OF PATHOLOGY AND GENOMIC MEDICINE Rh type POS [facility] DEPARTMENT OF PATHOLOGY AND GENOMIC MEDICINE Antibody screen (gel) NEG [facility] DEPARTMENT OF PATHOLOGY AND GENOMIC MEDICINE Specimen Blood Performing Organization Address City/[facility]/Zipcode Phone Number [facility] DEPARTMENT PATHOLOGY AND [address] [place] [phone] [facility] MEDICINE XR Chest 2 Vw (04/11/2017 7:49 [...] lower lobe parenchymal infiltrates. No pleural effusion. 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 FINDINGS: The heart is not enlarged. There is a large retrocardiac hiatal hernia. IMPRESSION: . There is better aeration of both lungs when compared to a recent CT scan from 04/08/2017 with a most complete resolution of right lower lobe parenchymal infiltrates. No pleural effusion. [facility]-[id number] Performing Organization Address City/[facility]/Zipcode Phone Number [facility] [address] [place] [address] Vancomycin level, trough (04/11/2017 3:00 PM) Vancomycin, trough 7.1 (L) 10.0 - 20.0 ug/mL [facility] DEPARTMENT OF Comment: PATHOLOGY AND GENOMIC Therapeutic Ranges: MEDICINE Peak 30.0 - 40.0 ug/mL Byzbdh59.0 - 20.0 ug/mL Specimen Serum Performing Organization Address [facility] Phone Number [facility] DEPARTMENT OF PATHOLOGY AND [address] [place] [phone] [place] [address] Sputum culture (04/11/2017 10:00 AM) Sputum culture isolate No normal oral jamal isolated. (A) [facility] DEPARTMENT OF Comment: PATHOLOGY AND GENOMIC Specimen Information MEDICINE Specimen Source: Sputum Specimen Site: Expectorated Sputum culture isolate Amber albicans [facility] DEPARTMENT OF Occasional PATHOLOGY AND GENOMIC The performance characteristics of this assay on this isolate MEDICINE were validated by the Microbiology Laboratory at [facility].This source has not been approved by the U.S. Food and Drug Administration.The results are not intended to be used as the sole means for clinical diagnosis or patient management.The Microbiology Laboratory is authorized under the clinical Laboratory Improvement Amendments of 1988 (CLIA-88) to perform high complexity testing. The performance characteristics of this assay on this isolate were validated by the Microbiology Laboratory at [facility].This source has not been approved by the U.S. Food and Drug Administration.The results are not intended to be used as the sole means for clinical diagnosis or patient management.The Microbiology Laboratory is authorized under the clinical Laboratory Improvement Amendments of 1988 (CLIA-88) to perform high complexity testing. (A) Specimen Sputum - Expectorated Performing Organization Address [facility] Phone Number [facility] DEPARTMENT OF PATHOLOGY AND [address] [place] [address] Gram stain (04/11/2017 10:00 AM) Gram stain isolate No WBC's [facility] DEPARTMENT OF PATHOLOGY Few epithelial cells AND GENOMIC MEDICINE No organisms seen Comment: Specimen Information Specimen Source: Sputum Specimen Site: Expectorated Specimen Sputum - Expectorated Performing Organization Address [facility] Phone Number [facility] DEPARTMENT OF PATHOLOGY AND [address] [place] [address] CT Chest Wo Contrast (04/08/2017 8:17 PM) Narrative Performed At EXAMINATION: [facility] CT CHEST WO CONTRAST CLINICAL HISTORY: reported [...] irregular nodules most compatible with inflammatory change. 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 [facility]-[id number] Performing Organization Address City/State/Zipcode Phone Number [facility] [address] [place] [address] Respiratory pathogen panel (04/08/2017 10:25 AM) Respiratory pathogen Negative for all pathogens tested: [facility] DEPARTMENT OF panel Negative for Adenovirus PATHOLOGY [...] specified Performing Organization Address City/State/Zipcode Phone Number [facility] DEPARTMENT OF PATHOLOGY AND [address] [place] [address] Urinalysis screen and microscopy, with reflex to culture (04/08/2017 8:33 AM) Specimen site Random void [facility] DEPARTMENT OF PATHOLOGY AND GENOMIC MEDICINE Color, UA Dark Yellow [facility] DEPARTMENT OF PATHOLOGY AND GENOMIC MEDICINE Appearance, UA Clear [facility] DEPARTMENT OF PATHOLOGY AND GENOMIC MEDICINE Specific gravity, UA 1.016 1.001 - 1.035 [facility] DEPARTMENT OF PATHOLOGY AND GENOMIC MEDICINE pH, UA 7.0 5.0 - 8.5 [facility] DEPARTMENT OF PATHOLOGY AND GENOMIC MEDICINE Protein, UA Negative Negative [facility] DEPARTMENT OF PATHOLOGY AND GENOMIC MEDICINE Glucose, UA Negative Negative [facility] DEPARTMENT OF PATHOLOGY AND GENOMIC MEDICINE Ketones, UA Negative Negative [facility] DEPARTMENT OF PATHOLOGY AND GENOMIC MEDICINE Bilirubin, UA Negative Negative [facility] DEPARTMENT OF PATHOLOGY AND GENOMIC MEDICINE Blood, UA Negative Negative [facility] DEPARTMENT OF PATHOLOGY AND GENOMIC MEDICINE Nitrite, UA Negative Negative [facility] DEPARTMENT OF PATHOLOGY AND GENOMIC MEDICINE Urobilinogen, UA 2.0 (A) <2.0 [facility] DEPARTMENT OF PATHOLOGY AND GENOMIC MEDICINE Leukocyte esterase, UA Negative Negative [facility] DEPARTMENT OF PATHOLOGY AND GENOMIC MEDICINE Epithelial cells, UA 1 /HPF [facility] DEPARTMENT OF PATHOLOGY AND GENOMIC MEDICINE WBC, UA 1 0 - 4 /HPF [facility] DEPARTMENT OF PATHOLOGY AND GENOMIC MEDICINE RBC, UA 3 (H) 0 - 2 /HPF [facility] DEPARTMENT OF PATHOLOGY AND GENOMIC MEDICINE Bacteria, UA Few None seen [facility] DEPARTMENT OF PATHOLOGY AND GENOMIC MEDICINE Yeast, UA None seen [facility] DEPARTMENT OF PATHOLOGY AND GENOMIC MEDICINE Yeast with pseudohyphae, UA None seen [facility] DEPARTMENT OF PATHOLOGY AND GENOMIC MEDICINE Specimen Urine Performing Organization Address City/[facility]/Zipcode Phone Number [facility] DEPARTMENT OF PATHOLOGY AND [address] [place] [address] [facility] Urine culture (04/08/2017 8:33 AM) Urine culture SEE COMMENTComment: Bacteriuria [facility] DEPARTMENT OF PATHOLOGY screen negative. AND GENOMIC MEDICINE Performing Organization Address City/State/Zipcode Phone Number [facility] DEPARTMENT OF PATHOLOGY AND [address] [place] [address] [facility] Blood culture, aerobic & anaerobic (04/08/2017 8:18 AM)Only the most recent of2 resultswithin the time period is included. Blood culture isolate No growth after 5 days of incubation. [facility] DEPARTMENT OF Comment: PATHOLOGY AND GENOMIC Specimen Information MEDICINE Specimen Source: Blood Specimen Site: Hand, right Specimen Blood - Hand, right Performing Organization Address City/State/Zipcode Phone Number [facility] DEPARTMENT OF PATHOLOGY AND [address] [place] [address] [facility] Comprehensive metabolic panel (04/08/2017 8:00 AM)Only the most recent of2 resultswithin the time period is included. Sodium 138 135 - 148 mEq/L [facility] DEPARTMENT OF PATHOLOGY AND GENOMIC MEDICINE Potassium 3.7 3.5 - 5.0 mEq/L [facility] DEPARTMENT OF PATHOLOGY AND GENOMIC MEDICINE Chloride 99 98 - 112 mEq/L [facility] DEPARTMENT OF PATHOLOGY AND GENOMIC MEDICINE CO2 28 24 - 31 mEq/L [facility] DEPARTMENT OF PATHOLOGY AND GENOMIC MEDICINE Anion gap 11 7 - 15 mEq/L [facility] DEPARTMENT OF Comment: PATHOLOGY AND GENOMIC Starting from June , anion gap calculation MEDICINE no longer incorporates potassium. Please note the change. BUN 12 8 - 23 mg/dL [facility] DEPARTMENT OF PATHOLOGY AND GENOMIC MEDICINE Creatinine 0.6 0.5 - 0.9 mg/dL [facility] DEPARTMENT OF PATHOLOGY AND GENOMIC MEDICINE Glucose 107 (H) 65 - 99 mg/dL [facility] DEPARTMENT OF PATHOLOGY AND GENOMIC MEDICINE Calcium 8.7 (L) 8.8 - 10.2 mg/dL [facility] DEPARTMENT OF PATHOLOGY AND GENOMIC MEDICINE Protein 5.8 (L) 6.3 - 8.3 g/dL [facility] DEPARTMENT OF Comment: PATHOLOGY AND GENOMIC [place] 4.6-7.0 g/dL MEDICINE 1 week 4.4-7.6 g/dL 7 months-1year5.1-7.3 g/dL 1-2 years5.6-7.5 g/dL >3 years6.0-8.0 g/dL 18-150 6.3-8.3 g/dL Albumin 2.6 (L) 3.5 - 5.0 g/dL [facility] DEPARTMENT OF PATHOLOGY AND GENOMIC MEDICINE A/G ratio 0.8 0.7 - 3.8 [facility] DEPARTMENT OF PATHOLOGY AND GENOMIC MEDICINE Alkaline phosphatase 40 35 - 104 U/L [facility] DEPARTMENT OF PATHOLOGY AND GENOMIC MEDICINE AST 18 10 - 35 U/L [facility] DEPARTMENT OF PATHOLOGY AND GENOMIC MEDICINE ALT 17 5 - 50 U/L [facility] DEPARTMENT OF PATHOLOGY AND GENOMIC MEDICINE Total bilirubin 1.0 0.0 - 1.2 mg/dL [facility] DEPARTMENT OF PATHOLOGY AND GENOMIC MEDICINE Specimen Plasma specimen Performing Organization Address [facility] Phone Number [facility] DEPARTMENT OF PATHOLOGY AND [address] [place] [address] C difficile toxin (04/06/2017 1:15 PM) Clostridium difficile No Clostridium difficle toxin present [facility] DEPARTMENT OF toxin Comment: PATHOLOGY AND GENOMIC Specimen Information MEDICINE Specimen Source: Stool Specimen Site: Nonpreserved Specimen Stool - Nonpreserved Performing Organization Address [facility] Phone Number [facility] DEPARTMENT OF PATHOLOGY AND [address] [place] [address] C-reactive protein (04/03/2017 4:00 AM) CRP <0.30 0.00 - 0.50 mg/dL [facility] DEPARTMENT OF PATHOLOGY AND GENOMIC MEDICINE Specimen Plasma specimen Performing Organization Address [facility] Phone Number [facility] DEPARTMENT OF PATHOLOGY AND [address] [place] [address] Prealbumin level (04/03/2017 4:00 AM) Prealbumin 23 16 - 32 mg/dL [facility] DEPARTMENT OF PATHOLOGY AND GENOMIC MEDICINE Specimen Serum Performing Organization Address [facility] Phone Number [facility] DEPARTMENT OF PATHOLOGY AND [address] [place] [address] Hepatic function panel (04/03/2017 4:00 AM) Albumin 2.7 (L) 3.5 - 5.0 g/dL [facility] DEPARTMENT OF PATHOLOGY AND GENOMIC MEDICINE Total bilirubin 0.6 0.0 - 1.2 mg/dL [facility] DEPARTMENT OF PATHOLOGY AND GENOMIC MEDICINE Bilirubin direct <0.2 0.0 - 0.3 mg/dL [facility] DEPARTMENT OF PATHOLOGY AND GENOMIC MEDICINE Alkaline phosphatase 39 35 - 104 U/L [facility] DEPARTMENT OF PATHOLOGY AND GENOMIC MEDICINE Protein 5.4 (L) 6.3 - 8.3 g/dL [facility] DEPARTMENT OF Comment: PATHOLOGY AND GENOMIC [place] 4.6-7.0 g/dL MEDICINE 1 week 4.4-7.6 g/dL 7 months-1year5.1-7.3 g/dL 1-2 years5.6-7.5 g/dL >3 years6.0-8.0 g/dL 18-150 6.3-8.3 g/dL ALT 20 5 - 50 U/L [facility] DEPARTMENT OF PATHOLOGY AND GENOMIC MEDICINE AST 18 10 - 35 U/L [facility] DEPARTMENT OF PATHOLOGY AND GENOMIC MEDICINE Specimen Plasma specimen Performing Organization Address [facility] Phone Number [facility] DEPARTMENT OF PATHOLOGY AND [address] [place] [address] CV stress test (04/02/2017 9:47 AM) Resting HR 89 [facility] MUSE Resting BP 134 [facility] MUSE Peak MET Achieved 1.0 [facility] MUSE Protocol Name REGADENO [facility] MUSE Time in Exercise Phase 00:01:00 [facility] Max Systolic BP 134 [facility] Max Diastolic BP 60 [facility] Max Heart Rate 113 [facility] Max Predicted Heart Rate 135 [facility] Target HR Formula (220 - Age)*100% [facility] M[facility] Test Indication chest pain [facility] MUSE Arrhy During Ex [facility] M[facility] ECG Interp Before EX [facility] M[facility] ECG Interp During Ex H MUSE Ex Summary Comment [facility] M[facility] Overall HR Response to [facility] Exercise Overall BP Response To [facility] Exercise Reason for Termination [facility] M[facility] Stress Test Impression -Waveform interpreted in report [facility] MUSE associated with image study. No interpretation is provided as part of this Stress ECG report.-Electronically Signed By Liberty PALOMARES, Eduard ([id number]), script editor Esa Munoz ([id number]) on 04/03/2017 1:32:55 PM Performing Organization Address [facility] Phone Number [facility] MUSE [address] [place] [address] Nm myocardial perfusion (04/02/2017 9:47 AM) Narrative Performed At [facility] Nuclear Cardiology and Cardiac CT [address] [place] [address] Myocardial Perfusion Imaging Report Stress ECG tracings are available in [employer], [employer] and [employer] All ECG interpretations are included in this report Pat.Name:ELVA JENKINS Pat.ID:[id number] St.Date: 04/02/2017 Refer.MD:KEVIN ANDRE MD Exam Time: 8:46:00 AM Study Type:Myocardial Perfusion Imaging Height:59inWeight: 119lb BSA: 1.48 m2 DOBAge:1930,86Y Sex: FEMALEBP:134/60 HR:89 bpm Nuclear Tech:CASIE CarpenterMT, [facility]ENTERRony/Valentino Pulido [facility] Pat. Stat.:Inpatient Room:[facility] Nuclear Event ID:[id number] Order ID:[id number] Reason for Study:Pre-op evaluation, intermediate/high risk patient [...] Radiology Results In - 04/02/2017 11:24 AM [facility] Nuclear Cardiology and Cardiac CT [address] [place] [address] Myocardial Perfusion Imaging Report Stress ECG tracings are available in [employer], [employer] and [employer] All ECG interpretations are included in this report Pat.Name: ELVA JENKINS Pat.ID: [id number] .Date: 04/02/2017 Refer.MD: KEVIN ANDRE MD Exam Time: 8:46:00 AM Study Type:Myocardial Perfusion Imaging Height: 59in Weight: 119lb BSA: 1.48 m2 Age: 2 1930,86Y Sex: FEMALE BP: 134/60 HR: 89 bpm Nuclear Tech:CASIE CarpenterMT, [facility]ENTERT/CARRIE Najera Pat. Stat.:Inpatient Room: [facility] Nuclear Event ID:[id number] Order ID: [id number] Reason for Study:Pre-op evaluation, intermediate/high risk patient [...] AM Eduard Koenig MD Performing Organization Address [facility]/Zipcode Phone Number [facility] [address] [place] [address] Alpha-1 antitrypsin level (04/02/2017 5:30 AM) Alpha-1 antitrypsin 136 90 - 200 mg/dL [facility] DEPARTMENT OF PATHOLOGY AND GENOMIC MEDICINE Specimen Plasma specimen Performing Organization Address [facility] Phone Number [facility] DEPARTMENT OF PATHOLOGY AND [address] [place] [address] GENOMIC MEDICINE Echocardiogram complete w contrast and 3D if needed (04/01/2017 4:35 PM) Narrative Performed At [facility] Echocardiography Report [address], [address], [place] [address] Pat.Name:ELVA JENKINS.ID:[id number] .Date: 04/01/2017 Refer.MD:KEVIN ANDRE MD Exam Time: 1:15:00 PMStudy Type:Routine Echo Height:59inWeight: 119lb BSA: 1.48 m2 DOBAge:1930,86Y Sex: FEMALEBP:140/66 HR:84 bpm Sonogrphr: Lindsay Edwards RDCS; Debra Ashley. Stat.:Inpatient Room:[address] Study Status:Final Echo Event ID:[id number] Order ID:[id number] Reason for Study:Etiology - Symptoms or conditions [...] RAPof 5 mmHg. MEASUREMENTS: 2D Parasternal [place] LVOT 1.8 cmLA Ds3.5 cm LVIDd3.4 cmIndex2.3 cm/m Ao An1.9 cm LVIDs1.9 cmAo Rtd 3.3 cm Index2.2 cm/m LV%fs 44.1 % LV Mwaz136.6 g(87-129) IVSd 1.5 cmLVM Index 99.7 g/m2 LVPWd1.1 cmRWT0.6 DOPPLER LVOT For Flow LVOT Area2.5 cm2 LVOT SV 66.1 ml CHBBvvGnl242.3 cm/sHR86.5 bpm LVOTpkPG 7.6 mmHgLVOT CO5.7 l/min LVOTmnPG 4 mmHgLVOT CI3.9 l/m/m2 LVOT TVI26 cm Signed 04/01/2017 11:24 PM Sheila Gage MD Procedure Note Interface, Radiology Results In - 04/01/2017 11:24 PM [facility] Echocardiography Report [address] [address] [facility].Name: ELVA JENKINS.ID: [id number] .Date: 04/01/2017 Refer.MD: KEVIN ANDRE MD Exam Time: 1:15:00 PM Study Type:Routine Echo Height: 59in Weight: 119lb BSA: 1.48 m2 Age: 2 1930,86Y Sex: FEMALE BP: 140/66 HR: 84 bpm Sonogrphr: Lindsay Edwards RDCS; Debra Ashley. Stat.:Inpatient Room: A7-623Y Study Status:Final Echo Event ID:[id number] Order ID: [id number] Reason for Study:Etiology - Symptoms or conditions [...] of 5 mmHg. MEASUREMENTS: 2D Parasternal [place] LVOT 1.8 cm LA Ds 3.5 cm [...] MD Performing Organization Address City/State/Zipcode Phone Number [facility] [address] carotid duplex (04/01/2017 4:08 PM) Narrative Performed At [facility] Vascular Ultrasound Laboratory Carotid Artery Duplex Report [address] [place] [address] For quality control assistant purposes, the categorization of the degree of the stenosis of this exam is based on criteria described in the IAC carotid stenosis grading white paper( www.intersocietal.org/Vascular) and Reyes Avery., Denny Oliveira., et al. Carotid artery stenosis: campbell-scale and Doppler US diagnosis--Society of Radiologists in Ultrasound Consensus Conference. Radiology. 2003 Nov; 229(2):340-6. Pat.Name:ELVA JENKINS Pat.ID:[id number] .Date: 04/01/2017 Exam Time: 2:54:00 PM Study Type:Carotid DOBAge:1930,86Y Sex: FEMALESonogrphr: Levi Nielsen, RVT, RDMS Pat. Stat.:Inpatient Room:[address] TapeVol: HARDIK, CPT - 4: 36865 Echo Event ID:[id number] Order ID:[id number] Reason for Study:Preop. PMH of HTN, COPD, [...] EDV24.3 cm/s Right ICA Mid ICA Mid [id number] cm/[facility] Mid EDV 32.1 cm/s Right ICA [...] Radiology Results In - 04/01/2017 4:11 PM [facility] Vascular Ultrasound Laboratory Carotid Artery Duplex Report [address] [place] [address] For quality control assistant purposes, the categorization of the degree of the stenosis of this exam is based on criteria described in the IAC carotid stenosis grading white paper( www.intersocietal.org/Vascular) and Reyes Avery., Tee CPratimaB., et al. Carotid artery stenosis: campbell-scale and Doppler US diagnosis--Society of Radiologists in Ultrasound Consensus Conference. Radiology. 2003 Nov; 229(2):340-6. Pat.Name: ELVA JENKINS.ID: [id number] St.Date: 04/01/2017 Exam Time: 2:54:00 PM Study Type:Carotid Age: 2 1930,86Y Sex: FEMALE Sonogrphr: Levi Nielsen, MERRY, RDMS Pat. Stat.:Inpatient Room: V9146-G Tape Vol: HARDIK, CPT - 4: 73901 Echo Event ID:[id number] Order ID: [id number] Reason for Study:Preop. PMH of HTN, COPD, [...] PM Tucker Kc MD Performing Organization Address [facility] Phone Number [facility] [address] [place] [address] CT Head External Study (03/25/2017 5:50 PM) Narrative Performed At This exam was not acquired at a [facility] facility and has not been [facility] interpreted by a [facility] Provider.The exam was imported into our imaging system for comparisons purposes. Performing Organization Address [facility]/Zipcode Phone Number [facility] [address] [place] [address] CT Abd/Pelvic External Study (03/24/2017 3:30 PM) Narrative Performed At This exam was not acquired at a [facility] facility and has not been [facility] interpreted by a [facility] Provider.The exam was imported into our imaging system for comparisons purposes. Performing Organization Address [facility]/Zipcode Phone Number [facility] [address] [place] [address] after 09/15/2016 Insurance Payer Benefit Plan / Group Subscriber ID Type Phone Address [employer] xxxxxxxxx O [phone] [place] [address]
--- OUTSIDE RECORDS SUMMARY | 2017-09-16 06:45 | XMS REPORT | Clinical Summary ---
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 TEACHER 08/02/2017 Procedure Pass Gastroenterology 08/02/2017 Surgery Gastroenterology Katie, COLONOSCOPY,SUBMUCOSAL MD Ricardo RESECTION 07/29/2017 Hospital Pre-Admission Testing Encounter after 09/15/2016 Social History Tobacco Use Types Packs/Day Years [...] unspecified part of colon, unspecified type after 09/15/2016 Results REPORT OF PROCEDURE - ENDOSCOPY URL (08/08/2017 12:52 PM)Calcium, Ionized (08/05 5:48 AM) Component Value Ref Range Calcium, Ion 1.05 (L) 1.12 - 1.27 mmol/L pH, Blood 7.46 Specimen Performing Laboratory Blood - Arm, [address] [address] CBC with platelet count + automated diff [...] % Specimen Performing Laboratory Blood - Arm, [address] [address] Prothrombin time/INR (08/05/2017 5:48 AM)Only the most recent of3 resultswithin the time period is included. Component Value Ref Range Protime 14.2 11.7 - 14.7 seconds INR 1.1 <=5.9 Specimen Performing Laboratory Blood - Arm, [address] [address] Narrative RECOMMENDED COUMADIN/WARFARIN INR THERAPY RANGES STANDARD [...] Status --------- ------ CBC with platelet count ...[[id number]]AbnormalFinal result Please view results for these tests on the individual orders. Phosphorus (08/05/2017 5:48 AM) Component Value Ref Range Phosphorus 2.7 2.3 - 4.7 mg/dL Specimen Performing Laboratory Blood - Arm, [address] [address] Magnesium (08/05/2017 5:48 AM) Component Value Ref Range Magnesium 1.9 1.6 - 2.6 mg/dL Specimen Performing Laboratory Blood - Arm, [address] [address] Hepatic function panel (08/05/2017 5:48 AM)Only the [...] U/L Specimen Performing Laboratory Blood - Arm, [address] [address] Basic metabolic panel (08/05/2017 5:48 AM)Only the [...] Specimen Performing Laboratory Blood - Arm, Right [address] [address] Urinalysis w/Microscopic (08/03/2017 2:35 PM) Component Value Ref Range Color, UA Yellow Clarity, UA Clear Specific [place], UA 1.010 1.001 - 1.035 pH, UA [...] /LPF Specimen Source Specimen Performing Laboratory Urine [address] [address] Tissue Exam (08/02/2017 5:15 PM) Component Value Ref Range Case Report Surgical Pathology Report Case: [id number] Authorizing Provider:Ricardo Wilson MDCollected: 08/02/2017 1715 Ordering Location: [facility] Endoscopy Received: 08/03/2017 0837 Services Pathologist: Larry Cohn MD Specimen:Rectal, MASS- TAKEN BY ESD, ON WAX, EVALUATE MARGINS DIAGNOSIS RECTAL, 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
--- OUTSIDE RECORDS SUMMARY | 2017-09-16 06:45 | XMS REPORT ---
:1930 [facility] Address [address] [place] [address] [address] [place] [address] Care Team Providers Name Role Phone DANIELRICARDO ALMONTE Unavailable Unavailable Problems This patient has no known problems. Allergies, Adverse Reactions, Alerts This patient has no known allergies or adverse reactions. Medications This patient has no known medications. Results Test Description Test Time Test Comments Text Results Atomic Results Result Comments PHOSPHORUS 2017-08-05 06:56:00 Test Item Value Reference Range Comments PHOSPHORUS (BEAKER) (test rcvj=552) 2.7 mg/dL 2.3-4.7 [id number] 06:56:00 Test Item Value Reference Range Comments MAGNESIUM (BEAKER) (test fdxd=067) 1.9 mg/dL 1.6-2.6 BASIC METABOLIC [id number] 06:56:00 Test Item Value Reference Range Comments SODIUM (BEAKER) (test 139 meq/L 136-145 tyhp=204) POTASSIUM (BEAKER) (test 4.1 meq/L 3.5-5.1 cmio=075) CHLORIDE (BEAKER) (test 107 meq/L 98-107 yoyc=847) CO2 (BEAKER) (test 26 meq/L 22-29 uovb=901) BLOOD UREA NITROGEN 11 mg/dL 7-21 (BEAKER) (test nolo=643) CREATININE (BEAKER) (test 0.73 mg/dL 0.57-1.25 erxg=754) GLUCOSE RANDOM (BEAKER) 107 mg/dL 70-105 (test vrgv=173) CALCIUM (BEAKER) (test 8.5 mg/dL 8.4-10.2 ibbj=699) EGFR (BEAKER) (test 76 mL/min/1.73 sq m ESTIMATED GFR IS NOT skhg=8653) ACCURATE CREATININE CLEARANCE IN PREDICTING GLOMERULAR FILTRATION RATE. ESTIMATED GFR IS NOT APPLICABLE FOR DIALYSIS PATIENTS. HEPATIC FUNCTION [id number] 06:56:00 Test Item Value Reference Range Comments TOTAL PROTEIN (BEAKER) (test htzl=206) 5.2 gm/dL 6.0-8.3 ALBUMIN (BEAKER) (test nnqq=1542) 2.9 g/dL 3.5-5.0 BILIRUBIN TOTAL (BEAKER) (test hosn=522) 0.8 mg/dL 0.2-1.2 BILIRUBIN DIRECT (BEAKER) (test ktzi=521) 0.4 mg/dL 0.1-0.5 ALKALINE PHOSPHATASE (BEAKER) (test nlru=258) 43 U/L 40-150 AST (SGOT) (BEAKER) (test jdat=778) 13 U/L 5-34 ALT (SGPT) (BEAKER) (test fnyw=827) 10 U/L 6-55 CALCIUM, [id number] 06:36:00 Test Item Value Reference Range Comments CALCIUM IONIZED (BEAKER) (test tjnk=491) 1.05 mmol/L 1.12-1.27 PH, BLOOD (BEAKER) (test bbov=1589) 7.46 PROTHROMBIN [id number] 06:35:00 Test Item Value Reference Range Comments PROTIME (BEAKER) (test uzip=037) 14.2 seconds 11.7-14.7 INR (BEAKER) (test ixjo=738) 1.1 <=5.9 RECOMMENDED COUMADIN/WARFARIN INR THERAPY RANGESSTANDARD DOSE: 2.0 - 3.0 Includes: PROPHYLAXIS forvenous thrombosis, systemic embolization; TREATMENT for venous thrombosis and/or pulmonary embolus.HIGH RISK: Target INR is 2.5-3.5 for patients with mechanical heart valves.CBC W/PLT COUNT & AUTO [id number] 06:25:00 Test Item Value Reference Range Comments WHITE BLOOD CELL COUNT (BEAKER) (test kjjl=188) 9.4 K/ L 3.5-10.5 RED BLOOD CELL COUNT (BEAKER) (test ubak=392) 3.48 M/ L 3.93-5.22 HEMOGLOBIN (BEAKER) (test qhab=705) 10.0 GM/DL 11.2-15.7 HEMATOCRIT (BEAKER) (test btts=717) 31.1 % 34.1-44.9 MEAN CORPUSCULAR VOLUME (BEAKER) (test vlwk=215) 89.4 fL 79.4-94.8 MEAN CORPUSCULAR HEMOGLOBIN (BEAKER) (test 28.7 pg 25.6-32.2 zcdw=541) MEAN CORPUSCULAR HEMOGLOBIN CONC (BEAKER) (test 32.2 GM/DL 32.2-35.5 ssfo=115) RED CELL DISTRIBUTION WIDTH (BEAKER) (test 18.3 % 11.7-14.4 mcfk=481) PLATELET COUNT (BEAKER) (test cpry=914) 234 K/CU MM 150-450 MEAN PLATELET VOLUME (BEAKER) (test zvog=943) 8.9 fL 9.4-12.3 NUCLEATED RED BLOOD CELLS (BEAKER) (test 0 /100 WBC 0-0 rnqs=096) NEUTROPHILS RELATIVE PERCENT (BEAKER) (test 70 % amtt=534) LYMPHOCYTES RELATIVE PERCENT (BEAKER) (test 24 % ykiz=943) MONOCYTES RELATIVE PERCENT (BEAKER) (test 5 % lxll=771) EOSINOPHILS RELATIVE PERCENT (BEAKER) (test 0 % znox=783) BASOPHILS RELATIVE PERCENT (BEAKER) (test 0 % cvxf=515) NEUTROPHILS ABSOLUTE COUNT (BEAKER) (test 6.54 K/ L 1.56-6.13 pscf=856) LYMPHOCYTES ABSOLUTE COUNT (BEAKER) (test 2.30 K/ L 1.18-3.74 glwy=597) MONOCYTES ABSOLUTE COUNT (BEAKER) (test 0.50 K/ L 0.24-0.36 uwos=861) EOSINOPHILS ABSOLUTE COUNT (BEAKER) (test 0.03 K/ L 0.04-0.36 cwea=285) BASOPHILS ABSOLUTE COUNT (BEAKER) (test 0.02 K/ L 0.01-0.08 xvvm=869) IMMATURE GRANULOCYTES-RELATIVE PERCENT (BEAKER) 0 % 0-1 (test ojfp=0615) TISSUE [id number] 14:52:00Surgical Pathology Report Case: [id number] Authorizing Provider: Ricardo Wilson MD Collected: 08/02/2017 1715 Ordering Location: [facility] Endoscopy Received: 08/03/2017 0837 Services Pathologist: Larry Cohn MD Specimen: Rectal, MASS- TAKEN BY ESD, ON WAX, EVALUATE MARGINS RECTAL, 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)- NEGATIVE FOR HIGH GRADE DYSPLASIA OR CARCINOMA- PERIPHERAL MARGINS, NEGATIVE FOR ADENOMATOUS CHANGE Signing Pathologist Direct Phone Line: [phone] signed by Larry Cohn MD on 08/04/2017 at 2:52 [id number] polyp Rectal mass Received in formalin labeled [...] the diagnostic line.CBC W/PLT COUNT & AUTO [id number] 06:19:00 Test Item Value Reference Range Comments WHITE BLOOD CELL COUNT (BEAKER) (test gzzv=268) 15.6 K/ L 3.5-10.5 RED BLOOD CELL COUNT (BEAKER) (test ltru=359) 3.50 M/ L 3.93-5.22 HEMOGLOBIN (BEAKER) (test edpn=926) 9.9 GM/DL 11.2-15.7 HEMATOCRIT (BEAKER) (test kccd=987) 31.4 % 34.1-44.9 MEAN CORPUSCULAR VOLUME (BEAKER) (test pmai=485) 89.7 fL 79.4-94.8 MEAN CORPUSCULAR HEMOGLOBIN (BEAKER) (test 28.3 pg 25.6-32.2 zvkp=599) MEAN CORPUSCULAR HEMOGLOBIN CONC (BEAKER) (test 31.5 GM/DL 32.2-35.5 ysmt=857) RED CELL DISTRIBUTION WIDTH (BEAKER) (test 18.0 % 11.7-14.4 nayr=548) PLATELET COUNT (BEAKER) (test axjd=377) 223 K/CU MM 150-450 MEAN PLATELET VOLUME (BEAKER) (test cwiw=194) 8.7 fL 9.4-12.3 NUCLEATED RED BLOOD CELLS (BEAKER) (test 0 /100 WBC 0-0 agex=953) NEUTROPHILS RELATIVE PERCENT (BEAKER) (test 81 % vrpn=980) LYMPHOCYTES RELATIVE PERCENT (BEAKER) (test 15 % bswn=475) MONOCYTES RELATIVE PERCENT (BEAKER) (test 4 % iliq=585) EOSINOPHILS RELATIVE PERCENT (BEAKER) (test 0 % utfh=539) BASOPHILS RELATIVE PERCENT (BEAKER) (test 0 % jgek=087) NEUTROPHILS ABSOLUTE COUNT (BEAKER) (test 12.56 K/ L 1.56-6.13 tnki=944) LYMPHOCYTES ABSOLUTE COUNT (BEAKER) (test 2.36 K/ L 1.18-3.74 algn=444) MONOCYTES ABSOLUTE COUNT (BEAKER) (test 0.56 K/ L 0.24-0.36 kuvt=021) EOSINOPHILS ABSOLUTE COUNT (BEAKER) (test 0.03 K/ L 0.04-0.36 eotw=681) BASOPHILS ABSOLUTE COUNT (BEAKER) (test 0.02 K/ L 0.01-0.08 pthh=525) IMMATURE GRANULOCYTES-RELATIVE PERCENT (BEAKER) 0 % 0-1 (test srpy=3090) HEPATIC FUNCTION [id number] 06:15:00 Test Item Value Reference Range Comments TOTAL PROTEIN (BEAKER) (test psuw=676) 4.9 gm/dL 6.0-8.3 ALBUMIN (BEAKER) (test jypb=0060) 2.8 g/dL 3.5-5.0 BILIRUBIN TOTAL (BEAKER) (test ctkn=207) 1.1 mg/dL 0.2-1.2 BILIRUBIN DIRECT (BEAKER) (test hdyl=039) 0.5 mg/dL 0.1-0.5 ALKALINE PHOSPHATASE (BEAKER) (test vqbz=411) 42 U/L 40-150 AST (SGOT) (BEAKER) (test pqrw=592) 15 U/L 5-34 ALT (SGPT) (BEAKER) (test lgcq=318) 12 U/L 6-55 BASIC METABOLIC [id number] 06:15:00 Test Item Value Reference Range Comments SODIUM (BEAKER) (test 139 meq/L 136-145 hyzk=938) POTASSIUM (BEAKER) (test 4.6 meq/L 3.5-5.1 xslo=439) CHLORIDE (BEAKER) (test 108 meq/L 98-107 gjvn=271) CO2 (BEAKER) (test 25 meq/L 22-29 htnf=054) BLOOD UREA NITROGEN 13 mg/dL 7-21 (BEAKER) (test gyrt=748) CREATININE (BEAKER) (test 0.73 mg/dL 0.57-1.25 ooqt=574) GLUCOSE RANDOM (BEAKER) 115 mg/dL 70-105 (test hhtv=884) CALCIUM (BEAKER) (test 8.5 mg/dL 8.4-10.2 ovgr=563) EGFR (BEAKER) (test 76 mL/min/1.73 sq m ESTIMATED GFR IS NOT vwfc=0627) ACCURATE CREATININE CLEARANCE IN PREDICTING GLOMERULAR FILTRATION RATE. ESTIMATED GFR IS NOT APPLICABLE FOR DIALYSIS PATIENTS. PROTHROMBIN TIME/[id number] 05:59:00 Test Item Value Reference Range Comments PROTIME (BEAKER) (test aqud=605) 14.6 seconds 11.7-14.7 INR (BEAKER) (test pwsp=318) 1.1 <=5.9 RECOMMENDED COUMADIN/WARFARIN INR THERAPY RANGESSTANDARD DOSE: 2.0 - 3.0 Includes: PROPHYLAXIS forvenous thrombosis, systemic embolization; TREATMENT for venous thrombosis and/or pulmonary embolus.HIGH RISK: Target INR is 2.5-3.5 for patients with mechanical heart valves.URINALYSIS W/ [id number] 14 :53:00 Test Item Value Reference Range Comments COLOR (BEAKER) (test jcei=945) Yellow CLARITY (BEAKER) (test dtap=120) Clear SPECIFIC GRAVITY UA (BEAKER) (test bbpm=803) 1.010 1.001-1.035 PH UA (BEAKER) (test yjwe=713) 5.5 5.0-8.0 PROTEIN UA (BEAKER) (test pgcm=072) Negative Negative GLUCOSE UA (BEAKER) (test xzex=943) Negative Negative KETONES UA (BEAKER) (test gvmi=047) Trace Negative BILIRUBIN UA (BEAKER) (test snrl=456) Negative Negative BLOOD UA (BEAKER) (test qicx=452) Negative Negative NITRITE UA (BEAKER) (test xaos=337) Negative Negative LEUKOCYTE ESTERASE UA (BEAKER) (test wfdd=652) Negative Negative UROBILINOGEN UA (BEAKER) (test dhws=556) 0.2 mg/dL 0.2-1.0 RBC UA (BEAKER) (test dzrk=112) 1 /HPF WBC UA (BEAKER) (test ffik=886) 3 /HPF MUCUS (BEAKER) (test kkzz=7854) Few SQUAMOUS EPITHELIAL (BEAKER) (test ylmr=533) < /HPF HYALINE CASTS (BEAKER) (test aygv=077) 2 /LPF SOURCE(BEAKER) (test giea=5371) HEPATIC FUNCTION [id number] 06:31:00 Test Item Value Reference Range Comments TOTAL PROTEIN (BEAKER) (test seic=182) 5.2 gm/dL 6.0-8.3 ALBUMIN (BEAKER) (test bssb=8842) 3.1 g/dL 3.5-5.0 BILIRUBIN TOTAL (BEAKER) (test voys=697) 1.1 mg/dL 0.2-1.2 BILIRUBIN DIRECT (BEAKER) (test lscr=483) 0.5 mg/dL 0.1-0.5 ALKALINE PHOSPHATASE (BEAKER) (test bqfs=161) 47 U/L 40-150 AST (SGOT) (BEAKER) (test xaeg=000) 20 U/L 5-34 ALT (SGPT) (BEAKER) (test vchk=062) 15 U/L 6-55 BASIC METABOLIC [id number] 06:31:00 Test Item Value Reference Range Comments SODIUM (BEAKER) (test 139 meq/L 136-145 basd=540) POTASSIUM (BEAKER) (test 2.7 meq/L 3.5-5.1 kzll=028) CHLORIDE (BEAKER) (test 106 meq/L 98-107 rkcg=355) CO2 (BEAKER) (test 24 meq/L 22-29 ljzl=785) BLOOD UREA NITROGEN 7 mg/dL 7-21 (BEAKER) (test icml=976) CREATININE (BEAKER) (test 0.61 mg/dL 0.57-1.25 lsuo=601) GLUCOSE RANDOM (BEAKER) 88 mg/dL 70-105 (test kqvs=219) CALCIUM (BEAKER) (test 8.4 mg/dL 8.4-10.2 ozah=229) EGFR (BEAKER) (test 93 mL/min/1.73 sq m ESTIMATED GFR IS NOT trjj=4386) ACCURATE CREATININE CLEARANCE IN PREDICTING GLOMERULAR FILTRATION RATE. ESTIMATED GFR IS NOT APPLICABLE FOR DIALYSIS PATIENTS. BASIC METABOLIC [id number] 06:30:00 Test Item Value Reference Range Comments SODIUM (BEAKER) (test 136 meq/L 136-145 cbit=247) POTASSIUM (BEAKER) (test 3.0 meq/L 3.5-5.1 Specimen slightly gjvz=375) hemolyzed CHLORIDE (BEAKER) (test 106 meq/L 98-107 ikkt=340) CO2 (BEAKER) (test 20 meq/L 22-29 qjww=142) BLOOD UREA NITROGEN 7 mg/dL 7-21 (BEAKER) (test jzmf=831) CREATININE (BEAKER) (test 0.61 mg/dL 0.57-1.25 Specimen slightly kywn=447) hemolyzed GLUCOSE RANDOM (BEAKER) 81 mg/dL 70-105 (test vlcy=126) CALCIUM (BEAKER) (test 8.2 mg/dL 8.4-10.2 suel=578) EGFR (BEAKER) (test 93 mL/min/1.73 sq m ESTIMATED GFR IS NOT smut=7498) ACCURATE CREATININE CLEARANCE IN PREDICTING GLOMERULAR FILTRATION RATE. ESTIMATED GFR IS NOT APPLICABLE FOR DIALYSIS PATIENTS. CBC W/PLT COUNT & AUTO [id number] 06:25:00 Test Item Value Reference Range Comments WHITE BLOOD CELL COUNT (BEAKER) (test qjxi=372) 14.6 K/ L 3.5-10.5 RED BLOOD CELL COUNT (BEAKER) (test txdf=737) 3.75 M/ L 3.93-5.22 HEMOGLOBIN (BEAKER) (test jnro=147) 10.5 GM/DL 11.2-15.7 HEMATOCRIT (BEAKER) (test fwvn=083) 33.1 % 34.1-44.9 MEAN CORPUSCULAR VOLUME (BEAKER) (test fisa=799) 88.3 fL 79.4-94.8 MEAN CORPUSCULAR HEMOGLOBIN (BEAKER) (test 28.0 pg 25.6-32.2 snsu=650) MEAN CORPUSCULAR HEMOGLOBIN CONC (BEAKER) (test 31.7 GM/DL 32.2-35.5 tfem=600) RED CELL DISTRIBUTION WIDTH (BEAKER) (test 17.5 % 11.7-14.4 mebc=355) PLATELET COUNT (BEAKER) (test tjne=018) 246 K/CU MM 150-450 MEAN PLATELET VOLUME (BEAKER) (test eeiu=865) 8.9 fL 9.4-12.3 NUCLEATED RED BLOOD CELLS (BEAKER) (test 0 /100 WBC 0-0 toaa=882) NEUTROPHILS RELATIVE PERCENT (BEAKER) (test 88 % pwyv=604) LYMPHOCYTES RELATIVE PERCENT (BEAKER) (test 5 % qjwe=370) MONOCYTES RELATIVE PERCENT (BEAKER) (test 6 % rzlx=908) EOSINOPHILS RELATIVE PERCENT (BEAKER) (test 0 % kfre=616) BASOPHILS RELATIVE PERCENT (BEAKER) (test 0 % sgli=359) NEUTROPHILS ABSOLUTE COUNT (BEAKER) (test 12.85 K/ L 1.56-6.13 lvdx=762) LYMPHOCYTES ABSOLUTE COUNT (BEAKER) (test 0.71 K/ L 1.18-3.74 tbup=491) MONOCYTES ABSOLUTE COUNT (BEAKER) (test 0.94 K/ L 0.24-0.36 lnnh=380) EOSINOPHILS ABSOLUTE COUNT (BEAKER) (test 0.00 K/ L 0.04-0.36 neoc=936) BASOPHILS ABSOLUTE COUNT (BEAKER) (test 0.02 K/ L 0.01-0.08 srcx=147) IMMATURE GRANULOCYTES-RELATIVE PERCENT (BEAKER) 1 % 0-1 (test jmmx=1637) PROTHROMBIN [id number] 06:21:00 Test Item Value Reference Range Comments PROTIME (BEAKER) (test dgwi=159) 13.5 seconds 11.7-14.7 INR (BEAKER) (test njoe=524) 1.0 <=5.9 RECOMMENDED COUMADIN/WARFARIN INR THERAPY RANGESSTANDARD DOSE: 2.0 - 3.0 Includes: PROPHYLAXIS forvenous thrombosis, systemic embolization; TREATMENT for venous thrombosis and/or pulmonary embolus.HIGH RISK: Target INR is 2.5-3.5 for patients with mechanical heart valves.
[2017-09-16] MEDS ORDERED: NA CHLORIDE 0.9% 500 ML ONE (07:24)
[2017-09-16 08:13] LABS: Absolute Lymphocytes (CBC) 2.6 K/uL (0.7-4.9); Absolute Monocytes 0.6 K/uL (0.1-1.3); Absolute Neutrophil 2.9 K/uL (1.8-8.0); Basophils % 0.5 % (0-1.3); Hematocrit 30.4 % (36.0-45.0); Lymphocytes % 42.1 % (15.3-44.8); MCH 31.6 pg (27.0-35.0); MCV 91.7 fL (80-100); Monocytes % 10.2 % (3.3-12.3); RBC Red Blood Cell Count 3.31 M/uL (3.86-4.86)
[2017-09-16 08:35] LABS: Potassium 3.7 mmol/L (3.5-5.1)
--- NOTE | 2017-09-16 09:38 | ER ---
Nurse's Notes [facility] Name: Elva Jenkins Age: 87 yrs Sex: Female : 1930 Arrival Date: 09/16/2017 Time: 06:44 Bed 8 Private MD: Diagnosis: Rectal bleeding on anticoagulants;C. difficil Presentation: 09/16 06:45 Presenting complaint: Patient states: I'VE HAD SOME BLOOD WHEN I USE THE BATHROOM BUT rv THE REAL PROBLEM IS WHEN I STAND TOO LONG I CAN'T STOP MY BOWELS. Transition of care: [facility]. Onset of symptoms is unknown. Risk Assessment: Do you want to hurt yourself or someone else? Patient reports no desire to harm self or others. Initial Sepsis Screen: Does the patient meet any 2 criteria? No. Patient's initial sepsis screen is negative. Does the patient have a suspected source of infection? No. Patient's initial sepsis screen is negative. Care prior to arrival: None. 06:45 Method Of Arrival: EMS: [facility] rv 06:45 Acuity: TAVON 3 rv Triage Assessment: 06:55 General: Appears distressed, comfortable, Behavior is cooperative, appropriate for age, rv anxious. Pain: Complains of pain in pelvis. EENT: No signs and/or symptoms were reported regarding the EENT system. Neuro: Level of Consciousness is awake, alert, obeys commands, Oriented to person, place, time, situation, Appropriate for age. Cardiovascular: Rhythm is regular. Respiratory: Airway is patent Respiratory effort is even, unlabored, Respiratory pattern is regular, symmetrical. GI: Reports diarrhea, rectal bleeding. : No signs and/or symptoms were reported regarding the genitourinary system. Derm: No signs and/or symptoms reported regarding the dermatologic system. Musculoskeletal: Circulation, motion, and sensation intact. Range of motion: intact in all extremities, Swelling present in right leg and left leg. Historical: - Allergies: 06:55 Asacol; rv 06:55 Demerol; rv 06:55 Humira; rv 06:55 Methotrexate; rv 06:55 Orencia; rv 06:55 Sulfazine; rv 06:55 Rituxan; rv 06:55 promethazine HCl; rv 06:55 Phenergan; rv - Home Meds: 06:55 levothyroxine 50 mcg tab 1 tab once daily [Active]; alprazolam 0.25 mg Oral tab 1 tab rv BID PRN [Active]; prednisone 5 mg Oral tab 1 tab 2 times per day [Active]; furosemide 20 mg Oral tab 1 tab once daily [Active]; spironolactone 25 mg Oral tab 1 tab once daily [Active]; Vancocin 125 mg Oral cap 1 cap every 4 hours [Active]; Daliresp 500 mcg Oral tab 1 tab once daily [Active]; paroxetine HCl 40 mg oral tab 1 tab once daily [Active]; Xarelto 20 mg Oral tab 1 tab once daily [Active]; - PMHx: 06:55 Anxiety; Arthritis; c-diff 08/13/17; colon mass; COPD; gastritis; Hernia; Hypothyroidism; rv rectal mass; TIA; UTI; CHRONIC DIARRHEA; CLOSTRIDIUM DIFFICILE; - PSHx: 06:55 Appendectomy; Cholecystectomy; Hysterectomy; CATARACT SURGERY; Hernia repair; rv - Immunization history:: Adult Immunizations up to date. - Social history:: Smoking status: Patient/guardian denies using tobacco. - Ebola Screening: : Patient negative for fever greater than or equal to 101.5 degrees Fahrenheit, and additional compatible Ebola Virus Disease symptoms Patient denies exposure to infectious person Patient denies travel to an Ebola-affected area in the 21 days before illness onset No symptoms or risks identified at this time. Screenin:58 Abuse screen: Denies threats or abuse. Denies injuries from another. Nutritional rv screening: No deficits noted. Tuberculosis screening: No symptoms or risk factors identified. 07:00 Fall Risk IV access (20 points). Total Hutchinson Fall Scale indicates No Risk (0-24 pts). jl7 Assessment: 07:05 General: Appears in no apparent distress. uncomfortable, Behavior is calm, cooperative, jl7 appropriate for age. Pain: Denies pain. Neuro: Level of Consciousness is awake, alert, obeys commands, Oriented to person, place, time, situation. Cardiovascular: Patient's skin is warm and dry. Respiratory: Airway is patent Respiratory effort is even, unlabored, Respiratory pattern is regular, symmetrical. GI: Abdomen is flat, non-distended, Bowel sounds present X 4 quads. Abd is soft and non tender X 4 quads. Reports bloody stool. : No signs and/or symptoms were reported regarding the genitourinary system. EENT: No signs and/or symptoms were reported regarding the EENT system. Derm: Skin is pink, warm \T\ dry. Musculoskeletal: No signs and/or symptoms reported regarding the musculoskeletal system. 08:00 Reassessment: No changes from previously documented assessment. Patient and/or family jl7 updated on plan of care and expected duration. Pain level reassessed. Patient is alert, oriented x 3, equal unlabored respirations, skin warm/dry/pink. 09:00 Reassessment: Patient and/or family updated on plan of care and expected duration. Pain jl7 level reassessed. Patient is alert, oriented x 3, equal unlabored respirations, skin warm/dry/pink. Patient denies pain at this time. 09:25 Reassessment: Pt laying in bed, denies discomfort, awaiting transport. jl7 Vital Signs: 06:55 BP 116 / 57; Pulse 94; Resp 14; Temp 98; Pulse Ox 97% ; Weight 49.9 kg; Height 4 ft. 11 rv in. (149.86 cm); 08:00 BP 112 / 63; Pulse 79; Resp 14; Pulse Ox 98% ; Pain 0/10; jl7 09:33 BP 158 / 73; Pulse 85; Resp 16; Pulse Ox 100% ; Pain 0/10; jl7 10:06 BP 134 / 65; Pulse 81; Resp 16; Pulse Ox 97% ; jl7 06:55 Body Mass Index 22.22 (49.90 kg, 149.86 cm) rv ED Course: 06:44 Patient arrived in ED. rv 06:46 Triage completed. rv 06:51 [facility] snw 06:51 Juan Pablo Valle MD is Attending Physician. snw 06:55 Arm band placed on. rv 06:58 Patient has correct armband on for positive identification. Bed in low position. Call rv light in reach. Side rails up X2. 07:00 Pulse ox on. NIBP on. jl7 07:18 Norberto Leo RN is Primary Nurse. jl7 07:35 Missed attempt(s): 22 gauge in right antecubital area. Bleeding controlled, band aid jl7 applied, catheter tip intact. 07:40 Missed attempt(s): 22 gauge in left antecubital area. Bleeding controlled, band aid jl7 applied, catheter tip intact. 07:45 Initial lab(s) drawn, by me, sent to lab. Inserted saline lock: 22 gauge in right upper jl7 arm, using aseptic technique. Blood collected. 10:07 No provider procedures requiring assistance completed. Patient transferred, IV remains jl7 in place. intact, No redness/swelling at site. Administered Medications: 08:04 Drug: NS 0.9% 1000 ml Route: IV; Rate: 75 ml/hr; Site: right upper arm; [facility] 10:20 Follow up: IV Status: IV converted to saline lock jl7 Outcome: 09:37 ER care complete, transfer ordered by MD. saenz 10:07 Transferred by ground EMS to [facility], Transfer form completed. [facility] 10:07 Condition: stable 10:07 Discharge instructions given to patient, family, Instructed on the need for transfer, Demonstrated understanding of instructions. 10:21 Patient left the ED. [facility] Signatures: Melissa Urban, INFORMATION TECH-C INFORMATION TECH-Csnw Norberto Leo RN RN 7 Jah Webb, RN RN rv
--- NOTE | 2017-09-16 09:38 | EDPHYS ---
Physician Documentation [facility] Name: Elva Jenkins Age: 87 yrs Sex: Female : 1930 Arrival Date: 09/16/2017 Time: 06:44 Bed 8 Private MD: ED Physician Juan Pablo Valle HPI: 09/16 07:08 This 87 yrs old Female presents to ER via EMS with complaints of Bloody snw Stools, STOOL INCONTINENCE. 07:08 The patient presents to the emergency department with bleeding from the rectum/anus, snw that is moderate. Onset: The symptoms/episode began/occurred gradually, and became worse this morning. Context: the patient has a known history of hemorrhoids, recent dx recurrent c. dill. Modifying factors: The symptoms are alleviated by nothing, The symptoms are aggravated by standing. Associate signs and symptoms: Pertinent positives: diarrhea, lower GI bleeding. The patient has experienced similar episodes in the past. The patient has been recently seen by a physician: The patient has been recently seen at the [facility] Emergency Department, this week. 07:09 + hemorrhoids. snw Historical: - Allergies: 06:55 Asacol; rv 06:55 Demerol; rv 06:55 Humira; rv 06:55 Methotrexate; rv 06:55 Orencia; rv 06:55 Sulfazine; rv 06:55 Rituxan; rv 06:55 promethazine HCl; rv 06:55 Phenergan; rv - Home Meds: 06:55 levothyroxine 50 mcg tab 1 tab once daily [Active]; alprazolam 0.25 mg Oral tab 1 tab rv BID PRN [Active]; prednisone 5 mg Oral tab 1 tab 2 times per day [Active]; furosemide 20 mg Oral tab 1 tab once daily [Active]; spironolactone 25 mg Oral tab 1 tab once daily [Active]; Vancocin 125 mg Oral cap 1 cap every 4 hours [Active]; Daliresp 500 mcg Oral tab 1 tab once daily [Active]; paroxetine HCl 40 mg oral tab 1 tab once daily [Active]; Xarelto 20 mg Oral tab 1 tab once daily [Active]; - PMHx: 06:55 Anxiety; Arthritis; c-diff 08/13/17; colon mass; COPD; gastritis; Hernia; Hypothyroidism; rv rectal mass; TIA; UTI; CHRONIC DIARRHEA; CLOSTRIDIUM DIFFICILE; - PSHx: 06:55 Appendectomy; Cholecystectomy; Hysterectomy; CATARACT SURGERY; Hernia repair; rv - Immunization history:: Adult Immunizations up to date. - Social history:: Smoking status: Patient/guardian denies using tobacco. - Ebola Screening: : Patient negative for fever greater than or equal to 101.5 degrees Fahrenheit, and additional compatible Ebola Virus Disease symptoms Patient denies exposure to infectious person Patient denies travel to an Ebola-affected area in the 21 days before illness onset No symptoms or risks identified at this time. ROS: 07:09 Constitutional: Negative for fever, chills, and weight loss, Eyes: Negative for injury, snw pain, redness, and discharge, ENT: Negative for injury, pain, and discharge, Neck: Negative for injury, pain, and swelling, Cardiovascular: Negative for chest pain, palpitations, and edema. 07:09 Abdomen/GI: Negative for abdominal pain, nausea, vomiting, and constipation, + diarrhea, + bleeding Back: Negative for injury and pain, MS/Extremity: Negative for injury and deformity, Skin: Negative for injury, rash, and discoloration, multiple ecchymosis Neuro: Negative for headache, weakness, numbness, tingling, and seizure. 07:09 Respiratory: Positive for shortness of breath, on exertion. Exam: 07:09 Head/Face: Normocephalic, atraumatic. Eyes: Pupils equal round and reactive to light, snw extra-ocular motions intact. Lids and lashes normal. Conjunctiva and sclera are non-icteric and not injected. Cornea within normal limits. Periorbital areas with no swelling, redness, or edema. ENT: Nares patent. No nasal discharge, no septal abnormalities noted. Tympanic membranes are normal and external auditory canals are clear. Oropharynx with no redness, swelling, or masses, exudates, or evidence of obstruction, uvula midline. Mucous membranes moist. Neck: Trachea midline, no thyromegaly or masses palpated, and no cervical lymphadenopathy. Supple, full range of motion without nuchal rigidity, or vertebral point tenderness. No Meningismus. Chest/axilla: Normal chest wall appearance and motion. Nontender with no deformity. No lesions are appreciated. Cardiovascular: Regular rate and rhythm with a normal S1 and S2. No gallops, murmurs, or rubs. Normal PMI, no JVD. No pulse deficits. 07:09 Back: No spinal tenderness. No costovertebral tenderness. Full range of motion. 07:09 Constitutional: The patient appears alert, anxious, uncomfortable. 07:09 Respiratory: the patient does not display signs of respiratory distress, Respirations: shallow respirations, tachypnea, Breath sounds: bronchial sounds, that are mild, are heard diffusely. 07:09 Abdomen/GI: Bowel sounds: active, all quadrants, Palpation: abdomen is soft and non-tender, Rectal exam: hemorrhoid(s), external, with associated bleeding, tenderness, that is mild, liquid stool at rectum. 07:09 Musculoskeletal/extremity: Extremities: grossly normal except: bilateral lower extremities with lymphedema, hx of recent DVT/PE, on Xarelto. 07:09 Skin: Appearance: normal except for affected area, injury, scattered ecchymosis. Vital Signs: 06:55 BP 116 / 57; Pulse 94; Resp 14; Temp 98; Pulse Ox 97% ; Weight 49.9 kg; Height 4 ft. 11 rv in. (149.86 cm); 08:00 BP 112 / 63; Pulse 79; Resp 14; Pulse Ox 98% ; Pain 0/10; jl7 09:33 BP 158 / 73; Pulse 85; Resp 16; Pulse Ox 100% ; Pain 0/10; jl7 10:06 BP 134 / 65; Pulse 81; Resp 16; Pulse Ox 97% ; jl7 06:55 Body Mass Index 22.22 (49.90 kg, 149.86 cm) rv MDM: 06:51 Patient medically screened. snw 09:12 Data reviewed: vital signs, nurses notes. Data interpreted: Pulse oximetry: on room air snw is 98 %. Interpretation: normal. Counseling: I had a detailed discussion with the patient and/or guardian regarding: the historical points, exam findings, and any diagnostic results supporting the discharge/admit diagnosis, lab results, Spoke with Dr. Pollock and the recommendation was to transfer pt to [facility] to Dr. Zuñiga. Spoke with both the pt and her Son. Pt declines transfer and wants contact made with Dr. Topete. Dr. Topete's office contacted. Appt made for Tuesday at 0945. Pt and Son informed that the recommendation remains to be transferred to [place] and leaving to f/u outpatient is against medical advise. Physician consultation: was called at 08:45, was contacted at 08:45, regarding patient's condition, declining transfer.. ED course: Pt and Son have reconsidered and agree to transfer to [facility]. 09/16 07:07 Order name: CBC with Diff; Complete Time: 08:34 snw 07 07:07 Order name: Chem 7; Complete Time: 08:39 snw 09/16 07:07 Order name: TS snw Administered Medications: 08:04 Drug: NS 0.9% 1000 ml Route: IV; Rate: 75 ml/hr; Site: right upper arm; 7 10:20 Follow up: IV Status: IV converted to saline lock jl7 Disposition: 09/16/17 09:37 Transfer ordered to [facility]. Diagnosis are Rectal bleeding on anticoagulants, C. difficil. - Reason for transfer: Higher level of care. - Accepting physician is Dr. Bedoya. - Condition is Stable. - Problem is an acute exacerbation. - Symptoms have worsened. Addendum: 09/27/2017 19:01 Co-signature as Attending Physician, Juan Pablo Valle MD. p justin Signatures: Dispatcher [employer] EDMS Juan Pablo Valle MD MD pkl Melissa Urban, INDUSTRIAL GAS PRODUCTION OPERATOR-C INDUSTRIAL GAS PRODUCTION OPERATOR-Jeffw Norberto Leo RN RN jl7 Jah Webb RN RN rv Corrections: (The following items were deleted from the chart) 09/16 10:21 09:37 09/16/2017 09:37 Transfer ordered to [facility]. Diagnosis is jl7 Rectal bleeding on anticoagulants; C. difficil. Reason for transfer: Higher level of care. Accepting physician is Dr. Bedoya. Condition is Stable. Problem is an acute exacerbation. Symptoms have worsened. snw
[2017-09-16 10:25] VITALS: TEMP 98
[2017-09-16 10:28] VITALS: BP 134/65; O2SAT 97
== END 2017-09-16 10:21 | disposition short-term general hospital (02) ==
LOC: ER 06:42
DX: K62.5 Hemorrhage of anus and rectum (principal); R15.9 Full incontinence of feces; E03.9 Hypothyroidism, unspecified; Z79.01 Long term (current) use of anticoagulants; Z88.6 Allergy status to analgesic agent; Z88.8 Allergy status to other drugs, medicaments and biological substances
CPT/HCPCS: 36415; 80048; 85025; 86850; 86900; 86901; 96360; 96361; 99285

== ENCOUNTER 2017-12-06 15:44 | Emergency (ER) | payer OTHER ==
--- OUTSIDE RECORDS SUMMARY | 2017-12-06 15:47 | XMS REPORT | Clinical Summary ---
:1930 Author Organization [facility] Address [address] [place] [address] Care Team Providers Name Role Phone Asked, [...] Hiatal hernia ( Primary RPratima, Dx) after 12/05/2016 Family History Medical History Relation Name Comments [...] Taken Blood Pressure 154/73 04/19/2017 11:52 AM PEDIATRIC ASSOCIATE Pulse 101 04/19/2017 1:00 PM PEDIATRIC ASSOCIATE Temperature 36.7 C (98 F) 04/19/2017 11:52 AM PEDIATRIC ASSOCIATE Respiratory Rate 20 04/19/2017 1:00 PM PEDIATRIC ASSOCIATE Oxygen Saturation 96% 04/19/2017 2:33 PM PEDIATRIC ASSOCIATE Inhaled Oxygen Concentration - - Weight 54.4 kg (120 lb) 04/12/2017 12:01 PM PEDIATRIC ASSOCIATE Height 149.9 cm (4' 11") 04/12/2017 12:01 PM PEDIATRIC ASSOCIATE Body Mass Index 24.24 04/12/2017 12:01 PM PEDIATRIC ASSOCIATE Plan of Treatment Health Maintenance Due Date Last Done Comments SHINGRIX VACCINE (#1) 1981 ZOSTER VACCINE 1991 PNEUMOCOCCAL POLYSACCHARIDE VACCINE AGE 65 AND OVER 1996 PNEUMOCOCCAL-13 1996 INFLUENZA VACCINE 10/12/2017 Implants Implanted Type Area Post Partum Nurse Device Identifier Expiration Date Model / Serial / Lot Reveal Linq-02/02/2016 Implanted: Qty: 1 on 02/02/2016 Procedures Procedure Name Priority Date/Time Associated Comments Diagnosis US DUPLEX VENOUS Routine 04/19/2017 11:11 Results for this LOWER EXTREMITY AM PEDIATRIC ASSOCIATE procedure are in BILATERAL the results section. ZZESTIMATED GFR Routine 04/19/2017 4:00 Results for this AM PEDIATRIC ASSOCIATE procedure are in the results section. PHOSPHORUS LEVEL Routine 04/19/2017 4:00 Results for this AM PEDIATRIC ASSOCIATE procedure are in the results section. MAGNESIUM LEVEL Routine 04/19/2017 4:00 Results for this AM PEDIATRIC ASSOCIATE procedure are in the results section. BASIC METABOLIC PANEL Routine 04/19/2017 4:00 Results for this AM PEDIATRIC ASSOCIATE procedure are in the results section. HC COMPLETE BLD COUNT Routine 04/19/2017 3:45 Results for this W/AUTO DIFF AM PEDIATRIC ASSOCIATE procedure are in the results section. MAGNESIUM LEVEL Routine 04/18/2017 4:00 Results for this AM PEDIATRIC ASSOCIATE procedure are in the results section. ZZESTIMATED GFR Routine 04/18/2017 4:00 Results for this AM PEDIATRIC ASSOCIATE procedure are in the results section. PHOSPHORUS LEVEL Routine 04/18/2017 4:00 Results for this AM PEDIATRIC ASSOCIATE procedure are in the results section. HC COMPLETE BLD COUNT Routine 04/18/2017 4:00 Results for this W/AUTO DIFF AM PEDIATRIC ASSOCIATE procedure are in the results section. BASIC METABOLIC PANEL Routine 04/18/2017 4:00 Results for this AM PEDIATRIC ASSOCIATE procedure are in the results section. XR ABDOMEN 1 VW STAT 04/17/2017 1:00 Results for this PORTABLE PM PEDIATRIC ASSOCIATE procedure are in the results section. ZZESTIMATED GFR Routine 04/17/2017 4:00 Results for this AM PEDIATRIC ASSOCIATE procedure are in the results section. PHOSPHORUS LEVEL Routine 04/17/2017 4:00 Results for this AM PEDIATRIC ASSOCIATE procedure are in the results section. HC COMPLETE BLD COUNT Routine 04/17/2017 4:00 Results for this W/AUTO DIFF AM PEDIATRIC ASSOCIATE procedure are in the results section. BASIC METABOLIC PANEL Routine 04/17/2017 4:00 Results for this AM PEDIATRIC ASSOCIATE procedure are in the results section. XR ABDOMEN 2 VW AP W STAT 04/16/2017 9:23 Results for this UPRIGHT AND/OR AM PEDIATRIC ASSOCIATE procedure are in DECUBITUS the results section. HC COMPLETE BLD COUNT Routine 04/16/2017 4:15 Results for this W/AUTO DIFF AM PEDIATRIC ASSOCIATE procedure are in the results section. ZZESTIMATED GFR Routine 04/16/2017 4:00 Results for this AM PEDIATRIC ASSOCIATE procedure are in the results section. MAGNESIUM LEVEL Routine 04/16/2017 4:00 Results for this AM PEDIATRIC ASSOCIATE procedure are in the results section. PHOSPHORUS LEVEL Routine 04/16/2017 4:00 Results for this AM PEDIATRIC ASSOCIATE procedure are in the results section. BASIC METABOLIC PANEL Routine 04/16/2017 4:00 Results for this AM PEDIATRIC ASSOCIATE procedure are in the results section. XR ABDOMEN 1 VW STAT 04/15/2017 7:50 Results for this PORTABLE AM PEDIATRIC ASSOCIATE procedure are in the results section. ZZESTIMATED GFR Routine 04/15/2017 4:00 Results for this AM PEDIATRIC ASSOCIATE procedure are in the results section. PHOSPHORUS LEVEL Routine 04/15/2017 4:00 Results for this AM PEDIATRIC ASSOCIATE procedure are in the results section. MAGNESIUM LEVEL Routine 04/15/2017 4:00 Results for this AM PEDIATRIC ASSOCIATE procedure are in the results section. HC COMPLETE BLD COUNT Routine 04/15/2017 4:00 Results for this W/AUTO DIFF AM PEDIATRIC ASSOCIATE procedure are in the results section. BASIC METABOLIC PANEL Routine 04/15/2017 4:00 Results for this AM PEDIATRIC ASSOCIATE procedure are in the results section. HC COMPLETE BLD COUNT Routine 04/14/2017 4:10 Results for this W/AUTO DIFF AM PEDIATRIC ASSOCIATE procedure are in the results section. ZZESTIMATED GFR Routine 04/14/2017 4:00 Results for this AM PEDIATRIC ASSOCIATE procedure are in the results section. BASIC METABOLIC PANEL Routine 04/14/2017 4:00 Results for this AM PEDIATRIC ASSOCIATE procedure are in the results section. ECG 12-LEAD STAT 04/13/2017 4:43 Results for this AM PEDIATRIC ASSOCIATE procedure are in the results section. ZZESTIMATED GFR Routine 04/13/2017 3:44 Results for this AM PEDIATRIC ASSOCIATE procedure are in the results section. BASIC METABOLIC PANEL Routine 04/13/2017 3:44 Results for this AM PEDIATRIC ASSOCIATE procedure are in the results section. HC COMPLETE BLD COUNT Routine 04/13/2017 3:00 Results for this W/AUTO DIFF AM PEDIATRIC ASSOCIATE procedure are in the results section. XR CHEST 1 VW STAT 04/12/2017 3:48 Results for this PORTABLE PM PEDIATRIC ASSOCIATE procedure are in the results section. CENTRAL LINE Routine 04/12/2017 2:01 PM PEDIATRIC ASSOCIATE Procedure Note - Madhu Monsivais MD - 04/12/2017 2:00 PM PEDIATRIC ASSOCIATE Central line Performed by: MADHU MONSIVAIS Authorized [...] the procedure well with no immediate complications PA AN ELECTIVE ENDOTRACHEAL AIRWAY Routine 04/12/2017 1:58 PM PEDIATRIC ASSOCIATE Procedure Note - Madhu Monsivais MD - 04/12/2017 1:58 PM PEDIATRIC ASSOCIATE Airway Performed by: MADHU MONSIVAIS Authorized by: [...] HERNIA, 04/12/2017 1:30 PM Hiatal hernia LAPAROSCOPIC PEDIATRIC ASSOCIATE PREPARE FRESH FROZEN Timed 04/12/2017 4:00 AM PLASMA PEDIATRIC ASSOCIATE PREPARE RBC Timed 04/12/2017 4:00 AM PEDIATRIC ASSOCIATE ZZESTIMATED GFR Routine 04/12/2017 4:00 AM Results for this PEDIATRIC ASSOCIATE procedure are in the results section. TYPE AND SCREEN Timed 04/12/2017 4:00 AM Results for this PEDIATRIC ASSOCIATE procedure are in the results section. PARTIAL THROMBOPLASTIN Routine 04/12/2017 4:00 AM Results for this TIME (PTT) PEDIATRIC ASSOCIATE procedure are in the results section. PROTHROMBIN TIME WITH Routine 04/12/2017 4:00 AM Results for this INR PEDIATRIC ASSOCIATE procedure are in the results section. BASIC METABOLIC PANEL Routine 04/12/2017 4:00 AM Results for this PEDIATRIC ASSOCIATE procedure are in the results section. HC COMPLETE BLD COUNT Routine 04/12/2017 4:00 AM Results for this W/AUTO DIFF PEDIATRIC ASSOCIATE procedure are in the results section. XR CHEST 2 VW Routine 04/11/2017 7:49 PM Results for this PEDIATRIC ASSOCIATE procedure are in the results section. VANCOMYCIN LEVEL, TROUGH Timed 04/11/2017 3:00 PM Results for this PEDIATRIC ASSOCIATE procedure are in the results section. GRAM STAIN Routine 04/11/2017 10:00 AM Results for this PEDIATRIC ASSOCIATE procedure are in the results section. SPUTUM CULTURE Routine 04/11/2017 10:00 AM Results for this PEDIATRIC ASSOCIATE procedure are in the results section. ZZESTIMATED GFR Routine 04/11/2017 4:15 AM Results for this PEDIATRIC ASSOCIATE procedure are in the results section. BASIC METABOLIC PANEL Routine 04/11/2017 4:15 AM Results for this PEDIATRIC ASSOCIATE procedure are in the results section. HC COMPLETE BLD COUNT Routine 04/11/2017 4:15 AM Results for this W/AUTO DIFF PEDIATRIC ASSOCIATE procedure are in the results section. ZZESTIMATED GFR Routine 04/10/2017 4:15 AM Results for this PEDIATRIC ASSOCIATE procedure are in the results section. BASIC METABOLIC PANEL Routine 04/10/2017 4:15 AM Results for this PEDIATRIC ASSOCIATE procedure are in the results section. HC COMPLETE BLD COUNT Routine 04/10/2017 4:15 AM Results for this W/AUTO DIFF PEDIATRIC ASSOCIATE procedure are in the results section. ZZESTIMATED GFR Routine 04/09/2017 4:51 AM Results for this PEDIATRIC ASSOCIATE procedure are in the results section. BASIC METABOLIC PANEL Routine 04/09/2017 4:51 AM Results for this PEDIATRIC ASSOCIATE procedure are in the results section. HC COMPLETE BLD COUNT Routine 04/09/2017 4:51 AM Results for this W/AUTO DIFF PEDIATRIC ASSOCIATE procedure are in the results section. CT CHEST WO CONTRAST Routine 04/08/2017 8:17 PM Results for this PEDIATRIC ASSOCIATE procedure are in the results section. RESPIRATORY PATHOGEN Routine 04/08/2017 10:25 AM Results for this PANEL PEDIATRIC ASSOCIATE procedure are in the results section. XR CHEST 2 VW STAT 04/08/2017 9:36 AM Results for this PEDIATRIC ASSOCIATE procedure are in the results section. URINALYSIS SCREEN AND Routine 04/08/2017 8:33 AM Results for this MICROSCOPY, WITH REFLEX PEDIATRIC ASSOCIATE procedure are in TO CULTURE the results section. URINE CULTURE Routine 04/08/2017 8:33 AM Results for this PEDIATRIC ASSOCIATE procedure are in the results section. BLOOD CULTURE, AEROBIC & Routine 04/08/2017 8:18 AM Results for this ANAEROBIC PEDIATRIC ASSOCIATE procedure are in the results section. BLOOD CULTURE, AEROBIC & Routine 04/08/2017 8:16 AM Results for this ANAEROBIC PEDIATRIC ASSOCIATE procedure are in the results section. ZZESTIMATED GFR Routine 04/08/2017 8:00 AM Results for this PEDIATRIC ASSOCIATE procedure are in the results section. COMPREHENSIVE METABOLIC Routine 04/08/2017 8:00 AM Results for this PANEL PEDIATRIC ASSOCIATE procedure are in the results section. HC COMPLETE BLD COUNT Routine 04/08/2017 8:00 AM Results for this W/AUTO DIFF PEDIATRIC ASSOCIATE procedure are in the results section. HC COMPLETE BLD COUNT Routine 04/07/2017 5:00 AM Results for this W/AUTO DIFF PEDIATRIC ASSOCIATE procedure are in the results section. ZZESTIMATED GFR Routine 04/07/2017 4:00 AM Results for this PEDIATRIC ASSOCIATE procedure are in the results section. BASIC METABOLIC PANEL Routine 04/07/2017 4:00 AM Results for this PEDIATRIC ASSOCIATE procedure are in the results section. CLOSTRIDIUM DIFFICILE Routine 04/06/2017 1:15 PM Results for this TOXIN PEDIATRIC ASSOCIATE procedure are in the results section. HC COMPLETE BLD COUNT Routine 04/06/2017 5:15 AM Results for this W/AUTO DIFF PEDIATRIC ASSOCIATE procedure are in the results section. ZZESTIMATED GFR Routine 04/06/2017 4:00 AM Results for this PEDIATRIC ASSOCIATE procedure are in the results section. BASIC METABOLIC PANEL Routine 04/06/2017 4:00 AM Results for this PEDIATRIC ASSOCIATE procedure are in the results section. HC COMPLETE BLD COUNT Routine 04/05/2017 5:45 AM Results for this W/AUTO DIFF PEDIATRIC ASSOCIATE procedure are in the results section. ZZESTIMATED GFR Routine 04/05/2017 4:00 AM Results for this PEDIATRIC ASSOCIATE procedure are in the results section. BASIC METABOLIC PANEL Routine 04/05/2017 4:00 AM Results for this PEDIATRIC ASSOCIATE procedure are in the results section. HC COMPLETE BLD COUNT Routine 04/04/2017 4:48 AM Results for this W/AUTO DIFF PEDIATRIC ASSOCIATE procedure are in the results section. ZZESTIMATED GFR Routine 04/04/2017 4:00 AM Results for this PEDIATRIC ASSOCIATE procedure are in the results section. BASIC METABOLIC PANEL Routine 04/04/2017 4:00 AM Results for this PEDIATRIC ASSOCIATE procedure are in the results section. HC COMPLETE BLD COUNT Routine 04/03/2017 5:23 AM Results for this W/AUTO DIFF PEDIATRIC ASSOCIATE procedure are in the results section. ZZESTIMATED GFR Routine 04/03/2017 4:00 AM Results for this PEDIATRIC ASSOCIATE procedure are in the results section. HEPATIC FUNCTION PANEL Routine 04/03/2017 4:00 AM Results for this PEDIATRIC ASSOCIATE procedure are in the results section. C-REACTIVE PROTEIN Routine 04/03/2017 4:00 AM Results for this PEDIATRIC ASSOCIATE procedure are in the results section. PREALBUMIN LEVEL Routine 04/03/2017 4:00 AM Results for this PEDIATRIC ASSOCIATE procedure are in the results section. BASIC METABOLIC PANEL Routine 04/03/2017 4:00 AM Results for this PEDIATRIC ASSOCIATE procedure are in the results section. NM MYOCARDIAL PERFUSION Routine 04/02/2017 9:47 AM Results for this STRESS ONLY PEDIATRIC ASSOCIATE procedure are in the results section. CV STRESS TEST NUCLEAR Routine 04/02/2017 9:47 AM Results for this CARDIO PEDIATRIC ASSOCIATE procedure are in the results section. ECG 12-LEAD STAT 04/02/2017 6:09 AM Results for this PEDIATRIC ASSOCIATE procedure are in the results section. ZZESTIMATED GFR Routine 04/02/2017 5:30 AM Results for this PEDIATRIC ASSOCIATE procedure are in the results section. ALPHA-1 ANTITRYPSIN Routine 04/02/2017 5:30 AM Results for this LEVEL PEDIATRIC ASSOCIATE procedure are in the results section. BASIC METABOLIC PANEL Routine 04/02/2017 5:30 AM Results for this PEDIATRIC ASSOCIATE procedure are in the results section. HC COMPLETE BLD COUNT Routine 04/02/2017 5:30 AM Results for this W/AUTO DIFF PEDIATRIC ASSOCIATE procedure are in the results section. ECHOCARDIOGRAM 2D Routine 04/01/2017 4:35 PM Results for this COMPLETE W MMODE PEDIATRIC ASSOCIATE procedure are in SPECTRAL COLOR DOPPLER the results (62693) section. US CAROTID DUPLEX Routine 04/01/2017 4:08 PM Results for this BILATERAL PEDIATRIC ASSOCIATE procedure are in the results section. XR CHEST 2 VW Routine 04/01/2017 9:42 AM Results for this PEDIATRIC ASSOCIATE procedure are in the results section. ZZESTIMATED GFR Routine 03/31/2017 11:58 PM Results for this PEDIATRIC ASSOCIATE procedure are in the results section. COMPREHENSIVE METABOLIC Routine 03/31/2017 11:58 PM Results for this PANEL PEDIATRIC ASSOCIATE procedure are in the results section. PARTIAL THROMBOPLASTIN Routine 03/31/2017 11:58 PM Results for this TIME (PTT) PEDIATRIC ASSOCIATE procedure are in the results section. PROTHROMBIN TIME WITH Routine 03/31/2017 11:58 PM Results for this INR PEDIATRIC ASSOCIATE procedure are in the results section. HC COMPLETE BLD COUNT Routine 03/31/2017 11:58 PM Results for this W/AUTO DIFF PEDIATRIC ASSOCIATE procedure are in the results section. CT HEAD EXTERNAL STUDY Routine 03/25/2017 5:50 PM Results for this PEDIATRIC ASSOCIATE procedure are in the results section. CT ABD/PELVIC EXTERNAL Routine 03/24/2017 3:30 PM Results for this STUDY PEDIATRIC ASSOCIATE procedure are in the results section. after 12/05/2016 Results Pv duplex venous lower extremity (04/19/2017 11:11 AM) Narrative Performed At [facility] Vascular Ultrasound Laboratory Lower Extremity Venous Report [address] [place] [address] Pat.Name:ELVA JENKINS Pat.ID:[id number] .Date: 04/19/2017Refer.MD:AMBROSIO OG MD Exam Time: 10:32:00 AM Study Type:LE Venous Height:59inWeight: 120lb BSA: 1.49 m2 DOBAge:1930,86Y Sex: FEMALESonogrphr: Eliel Ghotra RN, RVS Pat. Stat.:OutpatientTapeVol: PM, CPT - 4: 44092 Echo Event ID:[id number] Order ID:[id number] Reason for Study:Bilateral leg edema. Race:C SUMMARY: [...] Radiology Results In - 04/19/2017 12:56 PM [facility] Vascular Ultrasound Laboratory Lower Extremity Venous Report [address]Name: ELVA JENKINS Pat.ID: [id number] .Date: 04/19/2017 Refer.MD: AMBROSIO OG MD Exam Time: 10:32:00 AM Study Type:LE Venous Height: 59in Weight: 120lb BSA: 1.49 m2 Age: 2 1930,86Y Sex: FEMALE Sonogrphr: Eliel Ghotra, RN, RVS Pat. Stat.:Outpatient Tape Vol: PM, [facility] - 4: [id number] Echo Event ID:[id number] Order ID: [id number] Reason for Study:Bilateral leg edema. Race: C [...] PM Tucker Kc MD Performing Organization Address City/[facility]/Zipcode Phone Number [facility] [address] [place] [address] Estimated GFR (04/19/2017 4:00 AM)Only the most recent of19 resultswithin the time period is included. GFR Non Af Amer 79 mL/min/1.73 m2 [facility] DEPARTMENT OF PATHOLOGY AND GENOMIC MEDICINE GFR Af Amer >90 mL/min/1.73 m2 [facility] DEPARTMENT OF Comment: PATHOLOGY AND GENOMIC Chronic [...] Americans. Specimen Plasma specimen Performing Organization Address City/[facility]/Zipcode Phone Number [facility] DEPARTMENT OF PATHOLOGY AND [address] [place] [address] [facility] [employer] Phosphorus level (04/19/2017 4:00 AM)Only the most recent of5 resultswithin the time period is included. Phosphorus 2.6 2.4 - 4.5 mg/dL [facility] DEPARTMENT OF PATHOLOGY AND GENOMIC MEDICINE Specimen Plasma specimen Performing Organization Address [facility] Phone Number [facility] DEPARTMENT PATHOLOGY AND [address] [place] [address] Magnesium level (04/19/2017 4:00 AM)Only the most recent of4 resultswithin the time period is included. Magnesium 1.6 1.6 - 2.4 mg/dL [facility] DEPARTMENT OF PATHOLOGY AND GENOMIC MEDICINE Specimen Plasma specimen Performing Organization Address [facility] Phone Number [facility] DEPARTMENT OF PATHOLOGY AND [address] [place] [address] Basic metabolic panel (04/19/2017 4:00 AM)Only the most recent of17 resultswithin the time period is included. Sodium 141 135 - 148 mEq/L [facility] DEPARTMENT OF PATHOLOGY AND GENOMIC MEDICINE Potassium 3.4 (L) 3.5 - 5.0 mEq/L [facility] DEPARTMENT OF PATHOLOGY AND GENOMIC MEDICINE Chloride 100 98 - 112 mEq/L [facility] DEPARTMENT OF PATHOLOGY AND GENOMIC MEDICINE CO2 30 24 - 31 mEq/L [facility] DEPARTMENT OF PATHOLOGY AND GENOMIC MEDICINE Anion gap 11 7 - 15 mEq/L [facility] DEPARTMENT OF PATHOLOGY Comment: AND [facility] Starting from June , anion gap calculation no longer incorporates potassium. Please note the change. BUN 7 (L) 8 - 23 mg/dL [facility] DEPARTMENT OF PATHOLOGY AND GENOMIC MEDICINE Creatinine 0.7 0.5 - 0.9 mg/dL [facility] DEPARTMENT OF PATHOLOGY AND GENOMIC MEDICINE Glucose 117 (H) 65 - 99 mg/dL [facility] DEPARTMENT OF PATHOLOGY AND GENOMIC MEDICINE Calcium 8.2 (L) 8.8 - 10.2 mg/dL [facility] DEPARTMENT OF PATHOLOGY AND GENOMIC MEDICINE Specimen Plasma specimen Performing Organization Address [facility] Phone Number [facility] DEPARTMENT OF PATHOLOGY AND [address] [place] [address] CBC with platelet and differential (04/19/2017 3:45 AM)Only the most recent of19 resultswithin the time period is included. WBC 10.26 4.50 - 11.00 k/uL [facility] DEPARTMENT OF PATHOLOGY AND GENOMIC MEDICINE RBC 2.89 (L) 4.20 - 5.50 m/uL [facility] DEPARTMENT OF PATHOLOGY AND GENOMIC MEDICINE HGB 9.0 (L) 12.0 - 16.0 g/dL [facility] DEPARTMENT OF PATHOLOGY AND GENOMIC MEDICINE HCT 27.2 (L) 37.0 - 47.0 % [facility] DEPARTMENT OF PATHOLOGY AND GENOMIC MEDICINE MCV 94.1 82.0 - 100.0 fL [facility] DEPARTMENT OF PATHOLOGY AND GENOMIC MEDICINE MCH 31.1 27.0 - 34.0 pg [facility] DEPARTMENT OF PATHOLOGY AND GENOMIC MEDICINE MCHC 33.1 31.0 - 37.0 g/dL [facility] DEPARTMENT OF PATHOLOGY AND GENOMIC MEDICINE RDW - SD 48.7 37.0 - 55.0 fL [facility] DEPARTMENT OF PATHOLOGY AND GENOMIC MEDICINE MPV 9.1 8.8 - 13.2 fL [facility] DEPARTMENT OF PATHOLOGY AND GENOMIC MEDICINE Platelet count 305 150 - 400 k/uL [facility] DEPARTMENT OF PATHOLOGY AND GENOMIC MEDICINE Nucleated RBC 0.00 /100 WBC [facility] DEPARTMENT OF PATHOLOGY AND GENOMIC MEDICINE Neutrophils 65.7 39.0 - 69.0 % [facility] DEPARTMENT OF PATHOLOGY AND GENOMIC MEDICINE Lymphocytes 26.3 25.0 - 45.0 % [facility] DEPARTMENT OF PATHOLOGY AND GENOMIC MEDICINE Monocytes 5.9 0.0 - 10.0 % [facility] DEPARTMENT OF PATHOLOGY AND GENOMIC MEDICINE Eosinophils 1.3 0.0 - 5.0 % [facility] DEPARTMENT OF PATHOLOGY AND GENOMIC MEDICINE Basophils 0.3 0.0 - 1.0 % [facility] DEPARTMENT OF PATHOLOGY AND GENOMIC MEDICINE Immature granulocytes 0.5Comment: 0.0 - 1.0 % [facility] DEPARTMENT OF "Immature PATHOLOGY AND GENOMIC granulocytes" MEDICINE (promyelocytes, myelocytes, metamyelocytes) Specimen Blood Performing Organization Address City/State/Zipcode Phone Number [facility] DEPARTMENT OF PATHOLOGY AND [address] [place] [address] [employer] MEDICINE XR Abdomen 1 Vw Portable (04/17/2017 [...] noted. Midline skin digna are also present. [facility]-[id number] Procedure Note Hm Interface, Radiology Results Incoming - 04/17/2017 1:07 PM PEDIATRIC ASSOCIATE EXAMINATION: XR ABDOMEN 1 VW PORTABLE CLINICAL HISTORY: Distention COMPARISON: April 16, 2017 IMPRESSION: Diffuse bowel distention, most pronounced in the right colon, is without significant change. The cecum measures approximately 7.5 cm. This is suggestive of ileus. Left femoral line is again noted. Midline skin digna are also present. [facility]-[id number] Performing Organization Address [facility] Phone Number [facility] [address] [place] [address] XR Abdomen 2 Vw Ap W Upright [...] base with a tiny left pleural effusion. [facility]-[id number] Procedure Note [facility], Radiology Results Incoming - 04/16/2017 9:31 AM PEDIATRIC ASSOCIATE EXAMINATION: XR ABDOMEN 2 VW AP W [...] base with a tiny left pleural effusion. [facility]-[id number] Performing Organization Address [facility]/Zipcode Phone Number [employer] [address] [place] [address] ECG 12 lead (04/13/2017 4:43 AM)Only the most recent of2 resultswithin the time period is included. Ventricular rate 112 [facility] Atrial rate 112 [facility] PA interval 122 [facility] QRSD interval 72 [facility] QT interval 330 [facility] QTC interval 450 [facility] P axis 1 55 [facility] QRS axis 1 21 [facility] T wave axis 40 [facility] MUSE EKG impression Sinus tachycardia-Otherwise normal ECG-In [facility] MUSE automated comparison with ECG of 02-APR-2017 06:09,-No significant change was found- Performing Organization Address [facility] Phone Number [facility] MUSE [address] [place] [address] XR Chest 1 Vw Portable (04/12/2017 3:48 PM) Narrative Performed At Examination:XR CHEST 1 VW PORTABLE RADIANT Clinical history:"Attempted central line placements" Comparison:None IMPRESSION: Lungs are clear. Heart size is within normal limits. Bones are osteopenic. Left cervical calcifications are seen. [id number] Procedure Note Interface, Radiology Results Incoming - 04/12/2017 4:14 PM PEDIATRIC ASSOCIATE Examination: XR CHEST 1 VW PORTABLE Clinical history: "Attempted central line placements" Comparison: None IMPRESSION: Lungs are clear. Heart size is within normal limits. Bones are osteopenic. Left cervical calcifications are seen. [id number] Performing Organization Address [facility] Phone Number RADIANT [address] [place] [address] Partial thromboplastin time, activated (04/12/2017 4:00 AM)Only the most recent of2 resultswithin the time period is included. PTT 25.6 23.0 - 36.0 sec [facility] DEPARTMENT OF PATHOLOGY Comment: AND Proven PTT therapeutic range for unfractionated heparin is 61.0-112.0 seconds which corresponds to Anti-Xa 0.3-0.7 U/ml. Specimen Blood Performing Organization Address [facility] Phone Number [facility] DEPARTMENT OF PATHOLOGY AND [address] [place] [address] Proven Prothrombin time with INR (04/12/2017 4:00 AM)Only the most recent of2 resultswithin the time period is included. Prothrombin time 13.2 12.0 - 15.0 sec [facility] DEPARTMENT OF PATHOLOGY AND GENOMIC MEDICINE INR 1.0 [facility] DEPARTMENT OF Comment: PATHOLOGY AND GENOMIC The International Normalized Ratio (INR) is a therapeutic MEDICINE monitoring tool for patients who are stable on oral anticoagulant therapy. An INR of 2.0-3.0 is suggested for deep vein thrombosis/pulmonary embolism. Specimen Blood Performing Organization Address City/State/Zipcode Phone Number [facility] DEPARTMENT OF PATHOLOGY AND [address] [place] [phone] GENOMIC MEDICINE Type and screen (04/12/2017 4:00 AM) ABO grouping A [facility] DEPARTMENT OF PATHOLOGY AND GENOMIC MEDICINE Rh type POS [facility] DEPARTMENT OF PATHOLOGY AND GENOMIC MEDICINE Antibody screen (gel) NEG [facility] DEPARTMENT OF PATHOLOGY AND GENOMIC MEDICINE Specimen Blood Performing Organization Address [facility] Cent[facility]ode Phone Number [facility] DEPARTMENT OF PATHOLOGY AND [address] [place], [place] [address] GENOMIC MEDICINE XR Chest 2 Vw (04/11/2017 7:49 [...] lower lobe parenchymal infiltrates. No pleural effusion. [facility]-[id number] Procedure Note Interface, Radiology Results Incoming - 04/11/2017 8:47 PM PEDIATRIC ASSOCIATE Examination: Chest 2 views CLINICAL HISTORY: COPD Emphysema COMPARISON: None. FINDINGS: The heart is not enlarged. There is a large retrocardiac hiatal hernia. IMPRESSION: . There is better aeration of both lungs when compared to a recent CT scan from 04/08/2017 with a most complete resolution of right lower lobe parenchymal infiltrates. No pleural effusion. [facility]-[id number] Performing Organization Address City/[facility]/Zipcode Phone Number [facility] [address] [place] [address] Vancomycin level, trough (04/11/2017 3:00 PM) Vancomycin, trough 7.1 (L) 10.0 - 20.0 ug/mL [facility] DEPARTMENT OF Comment: PATHOLOGY AND GENOMIC Therapeutic Ranges: MEDICINE Peak 30.0 - 40.0 ug/mL Bodxcb36.0 - 20.0 ug/mL Specimen Serum Performing Organization Address City/[facility] Phone Number [facility] DEPARTMENT OF PATHOLOGY AND [address] [place] [address] Sputum culture (04/11/2017 10:00 AM) Sputum culture isolate No normal oral jamal isolated. (A) [facility] DEPARTMENT OF Comment: PATHOLOGY AND GENOMIC Specimen Information MEDICINE Specimen Source: Sputum Specimen Site: Expectorated Sputum culture isolate Amber albicans [facility] DEPARTMENT OF Occasional PATHOLOGY AND GENOMIC The performance characteristics of this assay on this isolate MEDICINE were validated by the Microbiology Laboratory at [facility].This source has not been approved [...] were validated by the Microbiology Laboratory at [facility].This source has not been approved by the U.S. Food and Drug Administration.The results are not intended to be used as the sole means for clinical diagnosis or patient management.The Microbiology Laboratory is authorized under the clinical Laboratory Improvement Amendments of 1988 (CLIA-88) to perform high complexity testing. (A) Specimen Sputum - Expectorated Performing Organization Address [facility] Phone Number [facility] DEPARTMENT OF PATHOLOGY AND [address] [place] [address] Gram stain (04/11/2017 10:00 AM) Gram stain isolate No WBC's [facility] DEPARTMENT OF PATHOLOGY Few epithelial cells AND GENOMIC MEDICINE No organisms seen Comment: Specimen Information Specimen Source: Sputum Specimen Site: Expectorated Specimen Sputum - Expectorated Performing Organization Address City/[facility] Phone Number [facility] DEPARTMENT OF PATHOLOGY AND [address] [place] [id number] [place] [address] CT Chest Wo Contrast (04/08/2017 8:17 PM) Narrative Performed At EXAMINATION: RADIANT CT CHEST WO CONTRAST CLINICAL HISTORY: reported [...] irregular nodules most compatible with inflammatory change. [facility]-[id number] Procedure Note Interface, Radiology Results Incoming - 04/08/2017 8:27 PM PEDIATRIC ASSOCIATE EXAMINATION: CT CHEST WO CONTRAST CLINICAL HISTORY: [...] irregular nodules most compatible with inflammatory change. [facility]-[id number] Performing Organization Address City/State/Zipcode Phone Number [facility] [address] [place] [address] Respiratory pathogen panel (04/08/2017 10:25 AM) Respiratory pathogen Negative for all pathogens tested: [facility] DEPARTMENT OF panel Negative for Adenovirus PATHOLOGY [...] Nares - Not specified Performing Organization Address [facility] Phone Number [facility] DEPARTMENT OF PATHOLOGY [address] [address] [employer] [facility] Urinalysis screen and microscopy, with reflex to culture (04/08/2017 8:33 AM) Specimen site Random void [facility] DEPARTMENT OF PATHOLOGY AND GENOMIC MEDICINE Color, UA Dark Yellow [facility] DEPARTMENT OF PATHOLOGY AND GENOMIC MEDICINE Appearance, UA Clear [facility] DEPARTMENT OF PATHOLOGY AND GENOMIC MEDICINE Specific gravity, UA 1.016 1.001 - 1.035 [facility] DEPARTMENT OF PATHOLOGY AND GENOMIC MEDICINE pH, UA 7.0 5.0 - 8.5 [facility] DEPARTMENT OF PATHOLOGY AND GENOMIC MEDICINE Protein, UA Negative Negative [facility] DEPARTMENT OF PATHOLOGY AND GENOMIC MEDICINE Glucose, UA Negative Negative [facility] DEPARTMENT OF PATHOLOGY AND GENOMIC MEDICINE Ketones, UA Negative Negative [facility] DEPARTMENT OF PATHOLOGY AND GENOMIC MEDICINE Bilirubin, UA Negative Negative [facility] DEPARTMENT OF PATHOLOGY AND GENOMIC MEDICINE Blood, UA Negative Negative [facility] DEPARTMENT OF PATHOLOGY AND GENOMIC MEDICINE Nitrite, UA Negative Negative [facility] DEPARTMENT OF PATHOLOGY AND GENOMIC MEDICINE Urobilinogen, UA 2.0 (A) <2.0 [facility] DEPARTMENT OF PATHOLOGY AND GENOMIC MEDICINE Leukocyte esterase, UA Negative Negative [facility] DEPARTMENT OF PATHOLOGY AND GENOMIC MEDICINE Epithelial cells, UA 1 /HPF [facility] DEPARTMENT OF PATHOLOGY AND GENOMIC MEDICINE WBC, UA 1 0 - 4 /HPF [facility] DEPARTMENT OF PATHOLOGY AND GENOMIC MEDICINE RBC, UA 3 (H) 0 - 2 /HPF [facility] DEPARTMENT OF PATHOLOGY AND GENOMIC MEDICINE Bacteria, UA Few None seen [facility] DEPARTMENT OF PATHOLOGY AND GENOMIC MEDICINE Yeast, UA None seen [facility] DEPARTMENT OF PATHOLOGY AND GENOMIC MEDICINE Yeast with pseudohyphae, UA None seen [facility] DEPARTMENT OF PATHOLOGY [facility] GENOMIC MEDICINE Specimen Urine Performing Organization Address City/[facility]ode Phone Number [facility] DEPARTMENT OF PATHOLOGY AND [address] [place] [phone] [facility] Urine culture (04/08/2017 8:33 AM) Urine culture SEE COMMENTComment: Bacteriuria [facility] DEPARTMENT OF PATHOLOGY screen negative. AND GENOMIC MEDICINE Performing Organization Address City/[facility] Centercode Phone Number [facility] DEPARTMENT OF PATHOLOGY AND [address] [place] [address] [facility] MEDICINE Blood culture, aerobic & anaerobic (04/08/2017 8:18 AM)Only the most recent of2 resultswithin the time period is included. Blood culture isolate No growth after 5 days of incubation. [facility] DEPARTMENT OF Comment: PATHOLOGY AND GENOMIC Specimen Information MEDICINE Specimen Source: Blood Specimen Site: Hand, right Specimen Blood - Hand, right Performing Organization Address City/[facility]/Zipcode Phone Number [facility] DEPARTMENT OF PATHOLOGY AND [address] [place] [address] [facility] Comprehensive metabolic panel (04/08/2017 8:00 AM)Only the most recent of2 resultswithin the time period is included. Sodium 138 135 - 148 mEq/L [facility] DEPARTMENT OF PATHOLOGY AND GENOMIC MEDICINE Potassium 3.7 3.5 - 5.0 mEq/L [facility] DEPARTMENT OF PATHOLOGY AND GENOMIC MEDICINE Chloride 99 98 - 112 mEq/L [facility] DEPARTMENT OF PATHOLOGY AND GENOMIC MEDICINE CO2 28 24 - 31 mEq/L [facility] DEPARTMENT OF PATHOLOGY AND GENOMIC MEDICINE Anion gap 11 7 - 15 mEq/L [facility] DEPARTMENT OF Comment: PATHOLOGY AND GENOMIC Starting from June , anion gap calculation MEDICINE no longer incorporates potassium. Please note the change. BUN 12 8 - 23 mg/dL [facility] DEPARTMENT OF PATHOLOGY AND GENOMIC MEDICINE Creatinine 0.6 0.5 - 0.9 mg/dL [facility] DEPARTMENT OF PATHOLOGY AND GENOMIC MEDICINE Glucose 107 (H) 65 - 99 mg/dL [facility] DEPARTMENT OF PATHOLOGY AND GENOMIC MEDICINE Calcium 8.7 (L) 8.8 - 10.2 mg/dL [facility] DEPARTMENT OF PATHOLOGY AND GENOMIC MEDICINE Protein 5.8 (L) 6.3 - 8.3 g/dL [facility] DEPARTMENT OF Comment: PATHOLOGY AND GENOMIC 4.6-7.0 g/dL MEDICINE 1 week 4.4-7.6 g/dL 7 months-1year5.1-7.3 g/dL 1-2 years5.6-7.5 g/dL >3 years6.0-8.0 g/dL 18-150 6.3-8.3 g/dL Albumin 2.6 (L) 3.5 - 5.0 g/dL [facility] DEPARTMENT OF PATHOLOGY AND GENOMIC MEDICINE A/G ratio 0.8 0.7 - 3.8 [facility] DEPARTMENT OF PATHOLOGY AND GENOMIC MEDICINE Alkaline phosphatase 40 35 - 104 U/L [facility] DEPARTMENT OF PATHOLOGY AND GENOMIC MEDICINE AST 18 10 - 35 U/L [facility] DEPARTMENT OF PATHOLOGY AND GENOMIC MEDICINE ALT 17 5 - 50 U/L [facility] DEPARTMENT OF PATHOLOGY AND GENOMIC MEDICINE Total bilirubin 1.0 0.0 - 1.2 mg/dL [facility] DEPARTMENT OF PATHOLOGY AND GENOMIC MEDICINE Specimen Plasma specimen Performing Organization Address [facility] Phone Number [facility] DEPARTMENT OF PATHOLOGY AND [address] [place] [address] MEDICINE C difficile toxin (04/06/2017 1:15 PM) Clostridium difficile No Clostridium difficle toxin present [facility] DEPARTMENT OF toxin Comment: PATHOLOGY AND GENOMIC Specimen Information MEDICINE Specimen Source: Stool Specimen Site: Nonpreserved Specimen Stool - Nonpreserved Performing Organization Address [facility] Phone Number [facility] DEPARTMENT OF PATHOLOGY AND [address] [place] [address] C-reactive protein (04/03/2017 4:00 AM) CRP <0.30 0.00 - 0.50 mg/dL [facility] DEPARTMENT OF PATHOLOGY AND GENOMIC MEDICINE Specimen Plasma specimen Performing Organization Address [facility] Phone Number [facility] DEPARTMENT OF PATHOLOGY AND [address] [place] [address] Prealbumin level (04/03/2017 4:00 AM) Prealbumin 23 16 - 32 mg/dL [facility] DEPARTMENT OF PATHOLOGY AND GENOMIC MEDICINE Specimen Serum Performing Organization Address [facility] Phone Number [facility] DEPARTMENT OF PATHOLOGY AND [address] [place] [address] Hepatic function panel (04/03/2017 4:00 AM) Albumin 2.7 (L) 3.5 - 5.0 g/dL [facility] DEPARTMENT OF PATHOLOGY AND GENOMIC MEDICINE Total bilirubin 0.6 0.0 - 1.2 mg/dL [facility] DEPARTMENT OF PATHOLOGY AND GENOMIC MEDICINE Bilirubin direct <0.2 0.0 - 0.3 mg/dL [facility] DEPARTMENT OF PATHOLOGY AND GENOMIC MEDICINE Alkaline phosphatase 39 35 - 104 U/L [facility] DEPARTMENT OF PATHOLOGY AND GENOMIC MEDICINE Protein 5.4 (L) 6.3 - 8.3 g/dL [facility] DEPARTMENT OF Comment: PATHOLOGY AND GENOMIC 4.6-7.0 g/dL MEDICINE 1 week 4.4-7.6 g/dL 7 months-1year5.1-7.3 g/dL 1-2 years5.6-7.5 g/dL >3 years6.0-8.0 g/dL 18-150 6.3-8.3 g/dL ALT 20 5 - 50 U/L [facility] DEPARTMENT OF PATHOLOGY AND GENOMIC MEDICINE AST 18 10 - 35 U/L [facility] DEPARTMENT OF PATHOLOGY AND [facility] Specimen Plasma specimen Performing Organization Address City/[facility]ode Phone Number [facility] DEPARTMENT OF PATHOLOGY AND [address] [place], [place] [address] [facility] CV stress test (04/02/2017 9:47 AM) Resting HR 89 [facility] MUSE Resting BP 134 [facility] MUSE Peak MET Achieved 1.0 [facility] MUSE Protocol Name REGHEMANTH [facility] MUSE Time in Exercise Phase 00:01:00 [facility] MUSE Max Systolic BP 134 [facility] MUSE Max Diastolic BP 60 [facility] MUSE Max Heart Rate 113 [facility] MUSE Max Predicted Heart Rate 135 [facility] MUSE Target HR Formula (220 - Age)*100% [facility] MUSE Test Indication chest pain [facility] MUSE Arrhy During Ex [facility] MUSE ECG Interp Before EX [facility] MUSE ECG Interp During Ex [facility] MUSE Ex Summary Comment [facility] MUSE Overall HR Response to [facility] MUSE Exercise Overall BP Response To [facility] MUSE Exercise Reason for Termination [facility] MUSE Stress Test Impression -Waveform interpreted in report [facility] MUSE associated with image study. No interpretation is provided as part of this Stress ECG report.-Electronically Signed By Liberty PALOMARES, Eduard ([id number]), editorial intern Esa Munoz ([id number]) on 04/03/2017 1:32:55 PM Performing Organization Address City/[facility] Phone Number [facility] MUSE [address] [place] [address] Nm myocardial perfusion (04/02/2017 9:47 AM) Narrative Performed At [facility] Nuclear Cardiology and Cardiac CT [address] [address] Myocardial Perfusion Imaging Report Stress ECG tracings are available in MUSE, EPIC and CV Web All ECG interpretations are included in this report Pat.Name:ELVA JENKINS Pat.ID:[id number] .Date: 04/02/2017 Refer.MD:KEVIN ANDRE MD Exam Time: 8:46:00 AM Study Type:Myocardial Perfusion Imaging Height:59inWeight: 119lb BSA: 1.48 m2 DOBAge:1930,86Y Sex: FEMALEBP:134/60 HR:89 bpm Nuclear Tech:Mesfin Gifford [facility]/CASIE NajeraMT Pat. Stat.:Inpatient Room:[facility] Nuclear Event ID:[id number] Order ID:[id number] Reason for Study:Pre-op evaluation, intermediate/high risk patient History / Clinical:COPD, Hyperlipidemia, Hypertension Procedures:Stress only Race: Risk Factors:Hyperlipidemia, Hypertension Clinical Symptoms:Regadenoson Physical Exam:S1, S2, clear lungs Surgery: Serum K+ Date,3.7/03/31/17, Troponin I Date,1)not done/ 2)/ 3)/, BUN/Creatinine ,0.8/03/31/17 Medications:Lasix, Lipitor, Lisinopril, Plavix SUMMARY: SCINTIGRAPHIC RESULTS [...] Radiology Results In - 04/02/2017 11:24 AM [facility] Nuclear Cardiology and Cardiac CT [address] [place] [address] Myocardial Perfusion Imaging Report Stress ECG tracings are available in [employer], [employer] and [facility] All ECG interpretations are included in this report Pat.Name: ELVA JENKINS Pat.ID: [id number] .Date: 04/02/2017 Refer.MD: KEVIN ANDRE MD Exam Time: 8:46:00 AM Study Type:Myocardial Perfusion Imaging Height: 59in Weight: 119lb BSA: 1.48 m2 Age: 2 1930,86Y Sex: FEMALE BP: 134/60 HR: 89 bpm Nuclear Tech:CARRIE Carpenter, [facility]/CARRIE Najera Pat. Stat.:Inpatient Room: A748 Nuclear Event ID:[id number] Order ID: [id number] Reason for Study:Pre-op evaluation, intermediate/high risk patient History / Clinical:COPD, Hyperlipidemia, Hypertension Procedures:Stress only Race: Risk Factors:Hyperlipidemia, Hypertension Clinical Symptoms:Regadenoson Physical Exam:S1, S2, clear lungs Surgery: Serum K+ Date, 3.7/03/31/17, Troponin I Date, 1)not done/ 2)/ 3)/, BUN/Creatinine , /0.8/03/31/17 Medications:Lasix, Lipitor, Lisinopril, Plavix SUMMARY: SCINTIGRAPHIC RESULTS [...] AM Eduard Koenig MD Performing Organization Address City/State/Zipcode Phone Number [facility] [address] [place] [address] Alpha-1 antitrypsin level (04/02/2017 5:30 AM) Alpha-1 antitrypsin 136 90 - 200 mg/dL [facility] DEPARTMENT OF PATHOLOGY AND GENOMIC MEDICINE Specimen Plasma specimen Performing Organization Address City/State/Zipcode Phone Number [facility] DEPARTMENT OF PATHOLOGY AND [address] [place] [address] GENOMIC MEDICINE Echocardiogram complete w contrast and 3D if needed (04/01/2017 4:35 PM) Narrative Performed At [facility] Echocardiography Report [address] [facility] [address], [place] [id number] Pat.Name:ELVA JENKINS Pat.ID:[id number] .Date: 04/01/2017 Refer.MD:KEVIN ANDRE MD Exam Time: 1:15:00 PMStudy Type:Routine Echo Height:59inWeight: 119lb BSA: 1.48 m2 DOBAge:1930,86Y Sex: FEMALEBP:140/66 HR:84 bpm Sonogrphr: Lindsay Edwards RDCS; Debra Darden Stat.:Inpatient Room:[address] Study Status:Final Echo Event ID:[id number] Order ID:[id number] Reason for Study:Etiology - Symptoms or conditions [...] RAPof 5 mmHg. MEASUREMENTS: 2D Parasternal Long [place] LVOT 1.8 cmLA Ds3.5 cm LVIDd3.4 cmIndex2.3 cm/m Ao An1.9 cm LVIDs1.9 cmAo Rtd 3.3 cm Index2.2 cm/m LV%fs 44.1 % LV Atmd096.6 g(87-129) IVSd 1.5 cmLVM Index 99.7 g/m2 LVPWd1.1 cmRWT0.6 DOPPLER LVOT For Flow LVOT Area2.5 cm2 LVOT SV 66.1 ml XYYSwwMnl513.3 cm/sHR86.5 bpm LVOTpkPG 7.6 mmHgLVOT CO5.7 l/min LVOTmnPG 4 mmHgLVOT CI3.9 l/m/m2 LVOT TVI26 cm Signed 04/01/2017 11:24 PM Sheila Gage MD Procedure Note Interface, Radiology Results In - 04/01/2017 11:24 PM PEDIATRIC ASSOCIATE Echocardiography Report [address] [place] [address], [place] [address] Pat.Name: JENKINSELVA Gabi.ID: [id number] .Date: 04/01/2017 Refer.MD: KEVIN ANDRE MD Exam Time: 1:15:00 PM Study Type:Routine Echo Height: 59in Weight: 119lb BSA: 1.48 m2 Age: 2 1930,86Y Sex: FEMALE BP: 140/66 HR: 84 bpm Sonogrphr: Lindsay Edwards RDCS; Debra Darden Stat.:Inpatient Room: [address] Study Status:Final Echo Event ID:[id number] Order ID: [id number] Reason for Study:Etiology - Symptoms or conditions [...] of 5 mmHg. MEASUREMENTS: 2D Parasternal Long [place] LVOT 1.8 cm LA Ds 3.5 cm [...] MD Performing Organization Address City/State/Zipcode Phone Number [facility] [address] [place] [phone] Pv carotid duplex (04/01/2017 4:08 PM) Narrative Performed At [facility] Vascular Ultrasound Laboratory Carotid Artery Duplex Report [address] [facility] [address] [id number] For quality coordinator purposes, the categorization of the degree of the stenosis of this exam is based on criteria described in the IAC carotid stenosis grading white paper( www.intersocietal.org/Vascular) and Reyes Avery., Denny Oliveira., et al. Carotid artery stenosis: campbell-scale and Doppler US diagnosis--Society of Radiologists in Ultrasound Consensus Conference. Radiology. 2003 Nov; 229(2):340-6. Pat.Name:ELVA JENKINS Pat.ID:[id number] .Date: 04/01/2017 Exam Time: 2:54:00 PM Study Type:Carotid DOBAge:1930,86Y Sex: FEMALESonogrphr: Levi Nielsen, RVT, [facility] Pat. Stat.:Inpatient Room:[address] TapeVol: HARDIK, CPT - 4: 68640 Echo Event ID:[id number] Order ID:[id number] Reason for Study:Preop. PMH of HTN, COPD, [...] EDV24.3 cm/s Right ICA Mid ICA Mid DIC038 cm/[facility] Mid EDV 32.1 cm/s Right ICA [...] Radiology Results In - 04/01/2017 4:11 PM [facility] Vascular Ultrasound Laboratory Carotid Artery Duplex Report [id number] [place] [address] For quality coordinator purposes, the categorization of the degree of the stenosis of this exam is based on criteria described in the IAC carotid stenosis grading white paper( www.intersocietal.org/Vascular) and Reyes Avery., Denny Oliveira., et al. Carotid artery stenosis: campbell-scale and Doppler US diagnosis--Society of Radiologists in Ultrasound Consensus Conference. Radiology. 2003 Nov; 229(2):340-6. Pat.Name: ELVA JENKINS Pat.ID: [id number] .Date: 04/01/2017 Exam Time: 2:54:00 PM Study Type:Carotid Age: 3 1930,86Y Sex: FEMALE Sonogrphr: Levi Nielsen RVT, MS Pat. Stat.:Inpatient Room: [address] Tape Vol: HARDIK, CPT - 4: 98704 Echo Event ID:[id number] Order ID: [id number] Reason for Study:Preop. PMH of HTN, COPD, [...] PM Tucker Kc MD Performing Organization Address [facility] Phone Number CUPID [address] [place] [address] CT Head External Study (03/25/2017 5:50 PM) Narrative Performed At This exam was not acquired at a Jew facility and has not been RADIANT interpreted by a Jew Provider.The exam was imported into our imaging system for comparisons purposes. Performing Organization Address [facility]/Zipcode Phone Number RADIANT [address] [place] [address] CT Abd/Pelvic External Study (03/24/2017 3:30 PM) Narrative Performed At This exam was not acquired at a Jew facility and has not been HM RADIANT interpreted by a Jew Provider.The exam was imported into our imaging system for comparisons purposes. Performing Organization Address City/State/Zipcode Phone Number RADIANT [address] [place] [address] after 12/05/2016 Insurance Payer Benefit Plan / Group Subscriber ID Type Phone Address [employer] MED[employer] xxxxxxxxx HMO W [phone] [place] [address]
--- OUTSIDE RECORDS SUMMARY | 2017-12-06 15:47 | XMS REPORT | Clinical Summary ---
:1930 Author Organization [facility] Address [address] [place] [address] Phone Care Team Providers Name Role Phone [...] Disp. Refills Start Date End Date Status PARoxetine (PAXIL) Take 40 mg by Active 40 MG tablet mouth daily with dinner . predniSONE Take 5 mg by Active (DELTASONE) 5 MG mouth 2 (two) tablet times daily . cycloSPORINE 1 drop 2 (two) Active (RESTASIS) 0.05 % times daily. ophthalmic emulsion budesonide-formotero Inhale 2 puffs Active l (SYMBICORT) by mouth via 160-4.5 inhaler 2 (two) mcg/actuation times daily. inhaler albuterol HFA Inhale 1 puff Active (VENTOLIN HFA) 90 by mouth via mcg/actuation inhaler every 6 inhaler (six) hours as needed for Wheezing. umeclidinium Inhale 1 puff Active (INCRUSE ELLIPTA) by mouth via 62.5 mcg/actuation inhaler daily . DsDv powder for inhalation furosemide (LASIX) Take 20 mg by Active 20 MG tablet mouth daily . spironolactone Take 25 mg by Active (ALDACTONE) 25 MG mouth 2 (two) tablet times daily. ALPRAZolam (XANAX) Take 0.25 mg by Active 0.25 MG tablet mouth daily with breakfast . levothyroxine Take 50 mcg by Active (SYNTHROID, mouth Every LEVOTHROID) 50 MCG morning on an tablet empty stomach. roflumilast Take by mouth Active (DALIRESP) 500 mcg daily. Tab tablet IRON FUM/FOLIC Take by mouth. Active ACID/MV,MIN 15 (HEMOCYTE-PLUS ORAL) tiotropium (SPIRIVA) Inhale 18 mcg Active 18 mcg inhalation by mouth via capsule inhaler daily. vancomycin Take 125 mg by Active (VANCOCIN) 125 MG mouth 3 (three) capsule times daily with meals. rivaroxaban Take by mouth Active (XARELTO) 20 mg Tab daily with tablet dinner. esomeprazole Take 40 mg by Discontinued (NEXIUM) 40 MG mouth 2 (two) 8 capsule times daily . aspirin 81 MG EC Take 81 mg by Discontinued tablet mouth daily. 8 levothyroxine Take 50 mcg by 12/06/2015 (SYNTHROID, mouth Every 7 LEVOTHROID) 75 MCG morning on an tablet empty stomach. atorvastatin Take 40 mg by Discontinued (LIPITOR) 40 MG mouth daily. 8 tablet famotidine (PEPCID) Take 20 mg by Discontinued 20 MG tablet mouth daily. 8 melatonin 3 mg Tab Take by mouth. Discontinued tablet 8 polyethylene glycol Take 17 g by Discontinued (GLYCOLAX) 17 gram mouth daily. 8 packet docusate sodium Take 100 mg by Discontinued (COLACE) 100 MG mouth 2 (two) 8 capsule times daily. DEXTRIN (EASY FIBER Take by mouth. Discontinued ORAL) 8 amoxicillin-clavulan Take 1 tablet 10 tablet 0 08/05/2017 ate (AUGMENTIN) by mouth 2 8 875-125 mg per (two) times tablet daily for [address] rectally 30 g 0 08/05/2017 (ANUSOL-HC) 2.5 % 2 (two) times 8 rectal cream daily for 10 days. Active Problems Problem Noted Date C. difficile colitis 09/16/2017 Bilateral pulmonary embolism (HCC) 09/16/2017 Left leg DVT (HCC) 09/16/2017 Gastroesophageal reflux disease without esophagitis 08/04/2017 Rectal bleeding 08/03/2017 Hypokalemia 08/03/2017 Other specified hypothyroidism 08/03/2017 Normochromic anemia 08/03/2017 Rectal polyp 08/02/2017 Overview: S/p ESD by Dr. Wilson 07/2017 Arrhythmia 02/02/2016 PVC (premature ventricular contraction) 02/01/2016 TIA (transient ischemic attack) 01/31/2016 Hypothyroidism 01/31/2016 Transient cerebral ischemia, unspecified type 12/05/2015 COPD (chronic obstructive pulmonary disease) (HCC) GERD (gastroesophageal reflux disease) Anxiety Thyroid disease Encounters Date Type Specialty Care Team Description 09/16/2017 [facility] Cardiology Rhea Bedoya Bilateral pulmonary - Encounter MD Yamila embolism ([facility]);C. 09/17/2017 Anthony, difficile Martha P., colitis;Chronic MD obstructive pulmonary disease, unspecified COPD type ([facility]);Gastroesophageal reflux disease without esophagitis;Hypothyroi dism, unspecified type;Deep vein thrombosis (DVT) of left lower extremity, unspecified chronicity, unspecified vein ([facility]);Rectal bleeding;Rectal polyp;Normochromic anemia 09/16/2017 Anesthesia Event Gastroenterology Chanelle Reyes CRNA 09/16/2017 Procedure Pass Gastroenterology 09/16/2017 Surgery Gastroenterology Brodie, SIGMOIDOSCOPY,POLYPECT KEV Colon MD 08/02/2017 [facility] General Internal Otshira, Gastroesophageal - Encounter Medicine Mohamed reflux disease without 08/05/2017 Katie Mcclelland, esophagitis;Hypokalemi a;Other specified Parhizgar, hypothyroidism;Rectal MD James bleeding;Rectal polyp 08/02/2017 Anesthesia Event Gastroenterology Abeba Fuchs CRNA 08/02/2017 Procedure Pass Gastroenterology 08/02/2017 Surgery Gastroenterology Katie, COLONOSCOPY,SUBMUCOSAL Mohamed RESECTION Katie Mcclelland MD 07/29/2017 Hospital Pre-Admission Testing Encounter after 12/05/2016 Social History Tobacco Use Types Packs/Day Years Used Date Never Smoker Smokeless Tobacco: Never Used Alcohol Use Drinks/Week oz/Week Comments No Sex Assigned at Date Recorded Not on file Last Filed Vital Signs Vital Sign Reading Time Taken Blood Pressure 125/61 09/17/2017 8:24 AM CDT Pulse 102 09/17/2017 8:24 AM CDT Temperature 37.1 C (98.8 F) 09/17/2017 8:24 AM CDT Respiratory Rate 18 09/17/2017 8:24 AM CDT Oxygen Saturation 95% 09/17/2017 8:24 AM CDT Inhaled Oxygen Concentration - - Weight 51.5 kg (113 lb 9.6 oz) 09/17/2017 8:24 AM CDT Height 149.9 cm (4' 11") 09/17/2017 8:24 AM CDT Body Mass Index 22.94 09/17/2017 8:24 AM CDT Plan of Treatment Not on file Procedures Procedure Name Priority Date/Time Associated Diagnosis Comments ANOSCOPY,HEMORRHOID 09/16/2017 3:00 PM Gastrointestinal BANDING CDT hemorrhage, unspecified gastrointestinal hemorrhage type Special Needs FLEX SIGMOIDOSCOPY WITH ANES SIGMOIDOSCOPY,POLYPECTOMY 09/16/2017 3:00 PM CDT Gastrointestinal hemorrhage, unspecified gastrointestinal hemorrhage type Special Needs FLEX SIGMOIDOSCOPY WITH ANES COLONOSCOPY,SUBMUCOSAL INJECTION 08/02/2017 2:00 PM CDT Polyp of colon, unspecified part of colon, unspecified type COLONOSCOPY,SUBMUCOSAL RESECTION 08/02/2017 2:00 PM CDT Polyp of colon, unspecified part of colon, unspecified type after 12/05/2016 Results RHYTHM STRIP - SCAN (09/20/2017 12:50 PM)REPORT OF PROCEDURE - ENDOSCOPY URL ( 1:13 PM)Only the most recent of2 resultswithin the time period is included.TRANSFUSION SERVICE REPORT - SCAN (09/17/2017 6:00 PM)PT/aPTT (2017 5:35 AM) Component Value Ref Range Protime 20.8 (H) 11.7 - 14.7 seconds INR 1.8 <=5.9 PTT 36.1 (H) 22.5 - 36.0 seconds Specimen Performing Laboratory Blood - Arm, Left [facility] [address] [place] [address] Narrative RECOMMENDED COUMADIN/WARFARIN INR THERAPY RANGES STANDARD DOSE: 2.0 - 3.0 Includes: PROPHYLAXIS for venous thrombosis, systemic embolization; TREATMENT for venous thrombosis and/or pulmonary embolus. HIGH RISK: Target INR is 2.5-3.5 for patients with mechanical heart valves. CBC with platelet count + automated diff (09/17/2017 5:35 AM)Only the most recent of4 resultswithin the time period is included. Component Value Ref Range WBC 5.5 3.5 - 10.5 K/L RBC 3.52 (L) 3.93 - 5.22 M/L Hemoglobin 10.4 (L) 11.2 - 15.7 GM/DL Hematocrit 33.1 (L) 34.1 - 44.9 % MCV 94.0 79.4 - 94.8 fL MCH 29.5 25.6 - 32.2 pg MCHC 31.4 (L) 32.2 - 35.5 GM/DL RDW 19.8 (H) 11.7 - 14.4 % Platelets 240 150 - 450 K/CU MM MPV 8.5 (L) 9.4 - 12.3 fL nRBC 0 0 - 0 /100 WBC % Neutros 43 % % Lymphs 49 % % Monos 7 % % Eos 1 % % Baso 0 % # Neutros 2.34 1.56 - 6.13 K/L # Lymphs 2.68 1.18 - 3.74 K/L # Monos 0.38 (H) 0.24 - 0.36 K/L # Eos 0.05 0.04 - 0.36 K/L # Baso 0.02 0.01 - 0.08 K/L Immature Granulocytes-Relative 0 0 - 1 % Specimen Performing Laboratory Blood - Arm, Left [address] [address] CBC with platelet count + automated diff (09/17/2017 5:35 AM)Only the most recent of4 resultswithin the time period is included. Specimen Performing Laboratory Blood Narrative The following orders were created for panel order CBC with platelet count + automated diff. Procedure Abnormality Status --------- ------ CBC with platelet count ...[[id number]]AbnormalFinal result Please view results for these tests on the individual orders. Magnesium (09/17/2017 5:35 AM)Only the most recent of3 resultswithin the time period is included. Component Value Ref Range Magnesium 1.9 1.6 - 2.6 mg/dL Specimen Performing Laboratory Blood - Arm, [address] [address] Basic metabolic panel (09/17/2017 5:35 AM)Only the most recent of6 resultswithin the time period is included. Component Value Ref Range Sodium 138 136 - 145 meq/L Potassium 4.2 3.5 - 5.1 meq/L Chloride 106 98 - 107 meq/L CO2 25 22 - 29 meq/L BUN 6 (L) 7 - 21 mg/dL Creatinine 0.66 0.57 - 1.25 mg/dL Glucose 76 70 - 105 mg/dL Calcium 8.4 8.4 - 10.2 mg/dL EGFR 85Comment: ESTIMATED GFR IS NOT ACCURATE mL/min/1.73 sq m CREATININE CLEARANCE IN PREDICTING GLOMERULAR FILTRATION RATE. ESTIMATED GFR IS NOT APPLICABLE FOR DIALYSIS PATIENTS. Specimen Performing Laboratory Blood - Arm, [address] [address] Type and screen, automated (09/16/2017 6:30 PM) Component Value Ref Range ABO/RH AUTOMATED (BEAKER) A POSITIVE Ab Scrn NEGATIVE Specimen Performing Laboratory Blood [address] [address] CBC (Hemogram only) (09/16/2017 6:30 PM) Component Value Ref Range WBC 6.5 3.5 - 10.5 K/L RBC 3.61 (L) 3.93 - 5.22 M/L Hemoglobin 10.9 (L) 11.2 - 15.7 GM/DL Hematocrit 33.5 (L) 34.1 - 44.9 % MCV 92.8 79.4 - 94.8 fL MCH 30.2 25.6 - 32.2 pg MCHC 32.5 32.2 - 35.5 GM/DL RDW 19.8 (H) 11.7 - 14.4 % Platelets 239 150 - 450 K/CU MM MPV 8.7 (L) 9.4 - 12.3 fL nRBC 0 0 - 0 /100 WBC Specimen Performing Laboratory Blood [address] [address] Tissue Exam (09/16/2017 3:38 PM)Only the most recent of2 resultswithin the time period is included. Component Value Ref Range Case Report Surgical Pathology Report Case: [id number] Authorizing Provider:Misha Calloway MDCollected: 09/16/2017 1538 Ordering Location: [address] Received: 09/19/2017 0820 Service Pathologist: Larry Cohn MD Specimen:Polyp, Colon - Rectosigmoid, POLYP TAKEN BY HOT SNARE DIAGNOSIS RECTO-SIGMOID, POLYPECTOMY - TUBULAR ADENOMA - CAUTERIZED EDGE, NEGATIVE FOR ADENOMATOUS CHANGE Signing Pathologist Direct Phone Line: [phone] CPT Code(s) 97959 CLINICAL HISTORY GI bleed SPECIMEN SOURCE Rectosigmoid colon polyp GROSS DESCRIPTION The specimen is received in a formalin-filled container and labeled with the patient's information and labeled "rectosigmoid colon polyp" and consists of a durham-red polyp measuring 0.8 x 0.8 x 0.3 cm. Resection margin is inked blue. The specimen is trisected, submitted entirely A1. CG/pl MICROSCOPIC DESCRIPTION There is no high grade dysplasia or carcinoma. Specimen Performing Laboratory Tissue - Polyp, Colon - Rectosigmoid [address] [address] Calcium, Ionized (08/05/2017 5:48 AM) Component Value Ref Range Calcium, Ion 1.05 (L) 1.12 - 1.27 mmol/L pH, Blood 7.46 Specimen Performing Laboratory Blood - Arm, [address] [address] Prothrombin time/INR (08/05/2017 5:48 AM)Only the most recent of3 resultswithin the time period is included. Component Value Ref Range Protime 14.2 11.7 - 14.7 seconds INR 1.1 <=5.9 Specimen Performing Laboratory Blood - Arm, [address] [address] Narrative RECOMMENDED COUMADIN/WARFARIN INR THERAPY RANGES STANDARD DOSE: 2.0 - 3.0 Includes: PROPHYLAXIS for venous thrombosis, systemic embolization; TREATMENT for venous thrombosis and/or pulmonary embolus. HIGH RISK: Target INR is 2.5-3.5 for patients with mechanical heart valves. Phosphorus (08/05/2017 5:48 AM) Component Value Ref Range Phosphorus 2.7 2.3 - 4.7 mg/dL Specimen Performing Laboratory Blood - Arm, [address] [address] Hepatic function panel (08/05/2017 5:48 AM)Only the [...] U/L Specimen Performing Laboratory Blood - Arm, [address] [address] Urinalysis w/Microscopic (08/03/2017 2:35 PM) Component Value Ref Range Color, UA Yellow Clarity, UA Clear Specific [place], UA 1.010 1.001 - 1.035 pH, UA [...] /LPF Specimen Source Specimen Performing Laboratory Urine [address] [address] after 12/05/2016
--- OUTSIDE RECORDS SUMMARY | 2017-12-06 15:48 | XMS REPORT ---
:1930 Author Organization [facility] Address [address] [place] [address] Dr. [address] [place] [id number] Care Team Providers Name Role Phone KIM MCKEON ZARI Unavailable Unavailable RICARDO WILSON Unavailable Unavailable Problems This patient has no known problems. Allergies, Adverse Reactions, Alerts This patient has no known allergies or adverse reactions. Medications This patient has no known medications. Results Test Description Test Time Test Comments Text Results Atomic Results Result Comments TISSUE EXAM 2017-09-20 16:22:00 Surgical Pathology Report Case: [id number] Authorizing Provider: Misha Calloway MD Collected: 09/16/2017 1538 Ordering Location: [address] Received: 09/19/2017 0820 Service Pathologist: Larry Cohn MD Specimen: Polyp, Colon - Rectosigmoid, POLYP TAKEN BY HOT SNARE RECTO-SIGMOID, POLYPECTOMY- TUBULAR ADENOMA- CAUTERIZED EDGE, NEGATIVE FOR ADENOMATOUS CHANGE Signing Pathologist Direct Phone Line: [phone] signed by Larry Cohn MD on 09/20/2017 at 4:22 [id number] bleedRectosigmoid colon polypThe specimen is received in a formalin-filled container and labeled with the patient's information and labeled "rectosigmoid colon polyp" and consists of a durham-red polyp measuring 0.8 x 0.8 x 0.3 cm. Resection margin is inked blue. The specimen is trisected, submitted entirely A1. CG/pl There is no high grade dysplasia or carcinoma. MAGNESIUM 2017-09-17 07:32:00 Test Item Value Reference Range Comments MAGNESIUM (BEAKER) (test hbkr=701) 1.9 mg/dL 1.6-2.6 BASIC METABOLIC [id number] 07:32:00 Test Item Value Reference Range Comments SODIUM (BEAKER) (test 138 meq/L 136-145 alhw=464) POTASSIUM (BEAKER) (test 4.2 meq/L 3.5-5.1 qiuf=546) CHLORIDE (BEAKER) (test 106 meq/L 98-107 nfyx=366) CO2 (BEAKER) (test 25 meq/L 22-29 mycn=023) BLOOD UREA NITROGEN 6 mg/dL 7-21 (BEAKER) (test rxjy=915) CREATININE (BEAKER) (test 0.66 mg/dL 0.57-1.25 cidh=377) GLUCOSE RANDOM (BEAKER) 76 mg/dL 70-105 (test zyzf=540) CALCIUM (BEAKER) (test 8.4 mg/dL 8.4-10.2 sgos=011) EGFR (BEAKER) (test 85 mL/min/1.73 sq m ESTIMATED GFR IS NOT pdzi=0219) ACCURATE CREATININE CLEARANCE IN PREDICTING GLOMERULAR FILTRATION RATE. ESTIMATED GFR IS NOT APPLICABLE FOR DIALYSIS PATIENTS. [id number] 06:42:00 Test Item Value Reference Range Comments PROTIME (BEAKER) (test mfuy=089) 20.8 seconds 11.7-14.7 INR (BEAKER) (test irpr=088) 1.8 <=5.9 PARTIAL THROMBOPLASTIN TIME (BEAKER) (test 36.1 seconds 22.5-36.0 jcal=264) RECOMMENDED COUMADIN/WARFARIN INR THERAPY RANGESSTANDARD DOSE: 2.0 - 3.0 Includes: PROPHYLAXIS forvenous thrombosis, systemic embolization; TREATMENT for venous thrombosis and/or pulmonary embolus.HIGH RISK: Target INR is 2.5-3.5 for patients with mechanical heart valves.CBC W/PLT COUNT & AUTO [id number] 06:41:00 Test Item Value Reference Range Comments WHITE BLOOD CELL COUNT (BEAKER) (test rpql=058) 5.5 K/ L 3.5-10.5 RED BLOOD CELL COUNT (BEAKER) (test jacs=233) 3.52 M/ L 3.93-5.22 HEMOGLOBIN (BEAKER) (test xdas=937) 10.4 GM/DL 11.2-15.7 HEMATOCRIT (BEAKER) (test hpds=132) 33.1 % 34.1-44.9 MEAN CORPUSCULAR VOLUME (BEAKER) (test iefp=438) 94.0 fL 79.4-94.8 MEAN CORPUSCULAR HEMOGLOBIN (BEAKER) (test 29.5 pg 25.6-32.2 lqiw=611) MEAN CORPUSCULAR HEMOGLOBIN CONC (BEAKER) (test 31.4 GM/DL 32.2-35.5 iadw=111) RED CELL DISTRIBUTION WIDTH (BEAKER) (test 19.8 % 11.7-14.4 qijb=033) PLATELET COUNT (BEAKER) (test nhpm=475) 240 K/CU MM 150-450 MEAN PLATELET VOLUME (BEAKER) (test mnqf=000) 8.5 fL 9.4-12.3 NUCLEATED RED BLOOD CELLS (BEAKER) (test 0 /100 WBC 0-0 aecj=966) NEUTROPHILS RELATIVE PERCENT (BEAKER) (test 43 % bskt=072) LYMPHOCYTES RELATIVE PERCENT (BEAKER) (test 49 % ayfi=416) MONOCYTES RELATIVE PERCENT (BEAKER) (test 7 % eotc=044) EOSINOPHILS RELATIVE PERCENT (BEAKER) (test 1 % maxn=000) BASOPHILS RELATIVE PERCENT (BEAKER) (test 0 % gozv=452) NEUTROPHILS ABSOLUTE COUNT (BEAKER) (test 2.34 K/ L 1.56-6.13 ayxz=266) LYMPHOCYTES ABSOLUTE COUNT (BEAKER) (test 2.68 K/ L 1.18-3.74 kgjs=656) MONOCYTES ABSOLUTE COUNT (BEAKER) (test 0.38 K/ L 0.24-0.36 ncdk=653) EOSINOPHILS ABSOLUTE COUNT (BEAKER) (test 0.05 K/ L 0.04-0.36 hvbs=572) BASOPHILS ABSOLUTE COUNT (BEAKER) (test 0.02 K/ L 0.01-0.08 xfxi=384) IMMATURE GRANULOCYTES-RELATIVE PERCENT (BEAKER) 0 % 0-1 (test wskc=5409) [id number] 19:07:00 Test Item Value Reference Range Comments MAGNESIUM (BEAKER) (test pjji=316) 1.9 mg/dL 1.6-2.6 BASIC METABOLIC [id number] 19:07:00 Test Item Value Reference Range Comments SODIUM (BEAKER) (test 137 meq/L 136-145 ojkl=130) POTASSIUM (BEAKER) (test 3.8 meq/L 3.5-5.1 tekq=480) CHLORIDE (BEAKER) (test 106 meq/L 98-107 wkwx=761) CO2 (BEAKER) (test 23 meq/L 22-29 zgau=011) BLOOD UREA NITROGEN 6 mg/dL 7-21 (BEAKER) (test ecmu=804) CREATININE (BEAKER) (test 0.64 mg/dL 0.57-1.25 kniz=801) GLUCOSE RANDOM (BEAKER) 82 mg/dL 70-105 (test tvkc=720) CALCIUM (BEAKER) (test 8.5 mg/dL 8.4-10.2 mzli=550) EGFR (BEAKER) (test 88 mL/min/1.73 sq m ESTIMATED GFR IS NOT agca=9973) ACCURATE CREATININE CLEARANCE IN PREDICTING GLOMERULAR FILTRATION RATE. ESTIMATED GFR IS NOT APPLICABLE FOR DIALYSIS PATIENTS. CBC (HEMOGRAM ONLY)2017-09-16 18:38:00 Test Item Value Reference Range Comments WHITE BLOOD CELL COUNT (BEAKER) (test mdiq=528) 6.5 K/ L 3.5-10.5 RED BLOOD CELL COUNT (BEAKER) (test ykbp=068) 3.61 M/ L 3.93-5.22 HEMOGLOBIN (BEAKER) (test nwne=759) 10.9 GM/DL 11.2-15.7 HEMATOCRIT (BEAKER) (test kcso=413) 33.5 % 34.1-44.9 MEAN CORPUSCULAR VOLUME (BEAKER) (test xcig=090) 92.8 fL 79.4-94.8 MEAN CORPUSCULAR HEMOGLOBIN (BEAKER) (test 30.2 pg 25.6-32.2 krlg=461) MEAN CORPUSCULAR HEMOGLOBIN CONC (BEAKER) (test 32.5 GM/DL 32.2-35.5 iogn=298) RED CELL DISTRIBUTION WIDTH (BEAKER) (test 19.8 % 11.7-14.4 lpja=075) PLATELET COUNT (BEAKER) (test fpxl=406) 239 K/CU MM 150-450 MEAN PLATELET VOLUME (BEAKER) (test hixd=954) 8.7 fL 9.4-12.3 NUCLEATED RED BLOOD CELLS (BEAKER) (test 0 /100 WBC 0-0 vqpm=872) [id number] 06:56:00 Test Item Value Reference Range Comments PHOSPHORUS (BEAKER) (test pufs=688) 2.7 mg/dL 2.3-4.7 [id number] 06:56:00 Test Item Value Reference Range Comments MAGNESIUM (BEAKER) (test mezd=066) 1.9 mg/dL 1.6-2.6 BASIC METABOLIC [id number] 06:56:00 Test Item Value Reference Range Comments SODIUM (BEAKER) (test 139 meq/L 136-145 fxoi=831) POTASSIUM (BEAKER) (test 4.1 meq/L 3.5-5.1 rzlp=431) CHLORIDE (BEAKER) (test 107 meq/L 98-107 ycrn=806) CO2 (BEAKER) (test 26 meq/L 22-29 yofu=024) BLOOD UREA NITROGEN 11 mg/dL 7-21 (BEAKER) (test fwli=098) CREATININE (BEAKER) (test 0.73 mg/dL 0.57-1.25 hpjr=092) GLUCOSE RANDOM (BEAKER) 107 mg/dL 70-105 (test jvme=077) CALCIUM (BEAKER) (test 8.5 mg/dL 8.4-10.2 iydj=207) EGFR (BEAKER) (test 76 mL/min/1.73 sq m ESTIMATED GFR IS NOT hhle=7034) ACCURATE CREATININE CLEARANCE IN PREDICTING GLOMERULAR FILTRATION RATE. ESTIMATED GFR IS NOT APPLICABLE FOR DIALYSIS PATIENTS. HEPATIC FUNCTION [id number] 06:56:00 Test Item Value Reference Range Comments TOTAL PROTEIN (BEAKER) (test tsto=220) 5.2 gm/dL 6.0-8.3 ALBUMIN (BEAKER) (test wchu=4442) 2.9 g/dL 3.5-5.0 BILIRUBIN TOTAL (BEAKER) (test tuty=027) 0.8 mg/dL 0.2-1.2 BILIRUBIN DIRECT (BEAKER) (test asmy=541) 0.4 mg/dL 0.1-0.5 ALKALINE PHOSPHATASE (BEAKER) (test hkpk=391) 43 U/L 40-150 AST (SGOT) (BEAKER) (test njgm=597) 13 U/L 5-34 ALT (SGPT) (BEAKER) (test onny=494) 10 U/L 6-55 CALCIUM, [id number] 06:36:00 Test Item Value Reference Range Comments CALCIUM IONIZED (BEAKER) (test merc=058) 1.05 mmol/L 1.12-1.27 PH, BLOOD (BEAKER) (test loum=6471) 7.46 PROTHROMBIN [id number] 06:35:00 Test Item Value Reference Range Comments PROTIME (BEAKER) (test jbav=852) 14.2 seconds 11.7-14.7 INR (BEAKER) (test vujj=292) 1.1 <=5.9 RECOMMENDED COUMADIN/WARFARIN INR THERAPY RANGESSTANDARD DOSE: 2.0 - 3.0 Includes: PROPHYLAXIS forvenous thrombosis, systemic embolization; TREATMENT for venous thrombosis and/or pulmonary embolus.HIGH RISK: Target INR is 2.5-3.5 for patients with mechanical heart valves.CBC W/PLT COUNT & AUTO [id number] 06:25:00 Test Item Value Reference Range Comments WHITE BLOOD CELL COUNT (BEAKER) (test jjyy=035) 9.4 K/ L 3.5-10.5 RED BLOOD CELL COUNT (BEAKER) (test dwaj=906) 3.48 M/ L 3.93-5.22 HEMOGLOBIN (BEAKER) (test yyir=076) 10.0 GM/DL 11.2-15.7 HEMATOCRIT (BEAKER) (test talz=732) 31.1 % 34.1-44.9 MEAN CORPUSCULAR VOLUME (BEAKER) (test qvxn=665) 89.4 fL 79.4-94.8 MEAN CORPUSCULAR HEMOGLOBIN (BEAKER) (test 28.7 pg 25.6-32.2 yaab=249) MEAN CORPUSCULAR HEMOGLOBIN CONC (BEAKER) (test 32.2 GM/DL 32.2-35.5 dmub=517) RED CELL DISTRIBUTION WIDTH (BEAKER) (test 18.3 % 11.7-14.4 kqty=293) PLATELET COUNT (BEAKER) (test npzq=671) 234 K/CU MM 150-450 MEAN PLATELET VOLUME (BEAKER) (test jkft=369) 8.9 fL 9.4-12.3 NUCLEATED RED BLOOD CELLS (BEAKER) (test 0 /100 WBC 0-0 uxmp=607) NEUTROPHILS RELATIVE PERCENT (BEAKER) (test 70 % cnjb=891) LYMPHOCYTES RELATIVE PERCENT (BEAKER) (test 24 % itgh=334) MONOCYTES RELATIVE PERCENT (BEAKER) (test 5 % jslx=511) EOSINOPHILS RELATIVE PERCENT (BEAKER) (test 0 % fokn=736) BASOPHILS RELATIVE PERCENT (BEAKER) (test 0 % ecrq=792) NEUTROPHILS ABSOLUTE COUNT (BEAKER) (test 6.54 K/ L 1.56-6.13 wicf=399) LYMPHOCYTES ABSOLUTE COUNT (BEAKER) (test 2.30 K/ L 1.18-3.74 ppwb=388) MONOCYTES ABSOLUTE COUNT (BEAKER) (test 0.50 K/ L 0.24-0.36 jdpn=184) EOSINOPHILS ABSOLUTE COUNT (BEAKER) (test 0.03 K/ L 0.04-0.36 trgx=978) BASOPHILS ABSOLUTE COUNT (BEAKER) (test 0.02 K/ L 0.01-0.08 ptun=128) IMMATURE GRANULOCYTES-RELATIVE PERCENT (BEAKER) 0 % 0-1 (test qdqm=9724) TISSUE [id number] 14:52:00Surgical Pathology Report Case: [id number] Authorizing Provider: Ricardo Wilson MD Collected: 08/02/2017 1715 Ordering Location: [facility] Endoscopy Received: 08/03/2017 0837 Services Pathologist: Larry Cohn MD Specimen: Rectal, MASS- TAKEN BY ESD, ON WAX, EVALUATE MARGINS RECTAL, 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)- NEGATIVE FOR HIGH GRADE DYSPLASIA OR CARCINOMA- PERIPHERAL MARGINS, NEGATIVE FOR ADENOMATOUS CHANGE Signing Pathologist Direct Phone Line: [phone] signed by Larry Cohn MD on 08/04/2017 at 2:52 [id number] polyp Rectal mass Received in formalin labeled [...] the diagnostic line.CBC W/PLT COUNT & AUTO [id number] 06:19:00 Test Item Value Reference Range Comments WHITE BLOOD CELL COUNT (BEAKER) (test dyat=281) 15.6 K/ L 3.5-10.5 RED BLOOD CELL COUNT (BEAKER) (test zuzs=481) 3.50 M/ L 3.93-5.22 HEMOGLOBIN (BEAKER) (test grow=485) 9.9 GM/DL 11.2-15.7 HEMATOCRIT (BEAKER) (test noah=399) 31.4 % 34.1-44.9 MEAN CORPUSCULAR VOLUME (BEAKER) (test uehl=307) 89.7 fL 79.4-94.8 MEAN CORPUSCULAR HEMOGLOBIN (BEAKER) (test 28.3 pg 25.6-32.2 wyys=779) MEAN CORPUSCULAR HEMOGLOBIN CONC (BEAKER) (test 31.5 GM/DL 32.2-35.5 vanm=081) RED CELL DISTRIBUTION WIDTH (BEAKER) (test 18.0 % 11.7-14.4 bjib=432) PLATELET COUNT (BEAKER) (test qtdx=025) 223 K/CU MM 150-450 MEAN PLATELET VOLUME (BEAKER) (test nbrl=029) 8.7 fL 9.4-12.3 NUCLEATED RED BLOOD CELLS (BEAKER) (test 0 /100 WBC 0-0 aoap=296) NEUTROPHILS RELATIVE PERCENT (BEAKER) (test 81 % ppol=653) LYMPHOCYTES RELATIVE PERCENT (BEAKER) (test 15 % pycx=746) MONOCYTES RELATIVE PERCENT (BEAKER) (test 4 % szuu=842) EOSINOPHILS RELATIVE PERCENT (BEAKER) (test 0 % ptpu=127) BASOPHILS RELATIVE PERCENT (BEAKER) (test 0 % vluq=157) NEUTROPHILS ABSOLUTE COUNT (BEAKER) (test 12.56 K/ L 1.56-6.13 sdlu=695) LYMPHOCYTES ABSOLUTE COUNT (BEAKER) (test 2.36 K/ L 1.18-3.74 gnrz=926) MONOCYTES ABSOLUTE COUNT (BEAKER) (test 0.56 K/ L 0.24-0.36 lpku=683) EOSINOPHILS ABSOLUTE COUNT (BEAKER) (test 0.03 K/ L 0.04-0.36 mfgb=252) BASOPHILS ABSOLUTE COUNT (BEAKER) (test 0.02 K/ L 0.01-0.08 rpgy=233) IMMATURE GRANULOCYTES-RELATIVE PERCENT (BEAKER) 0 % 0-1 (test xlfw=3020) HEPATIC FUNCTION [id number] 06:15:00 Test Item Value Reference Range Comments TOTAL PROTEIN (BEAKER) (test dyax=302) 4.9 gm/dL 6.0-8.3 ALBUMIN (BEAKER) (test qkju=1685) 2.8 g/dL 3.5-5.0 BILIRUBIN TOTAL (BEAKER) (test cazj=084) 1.1 mg/dL 0.2-1.2 BILIRUBIN DIRECT (BEAKER) (test llal=917) 0.5 mg/dL 0.1-0.5 ALKALINE PHOSPHATASE (BEAKER) (test cweh=845) 42 U/L 40-150 AST (SGOT) (BEAKER) (test zdbs=730) 15 U/L 5-34 ALT (SGPT) (BEAKER) (test syle=223) 12 U/L 6-55 BASIC METABOLIC [id number] 06:15:00 Test Item Value Reference Range Comments SODIUM (BEAKER) (test 139 meq/L 136-145 jgkj=095) POTASSIUM (BEAKER) (test 4.6 meq/L 3.5-5.1 umrq=823) CHLORIDE (BEAKER) (test 108 meq/L 98-107 hpff=642) CO2 (BEAKER) (test 25 meq/L 22-29 mpto=784) BLOOD UREA NITROGEN 13 mg/dL 7-21 (BEAKER) (test ipiq=746) CREATININE (BEAKER) (test 0.73 mg/dL 0.57-1.25 krws=651) GLUCOSE RANDOM (BEAKER) 115 mg/dL 70-105 (test tpop=607) CALCIUM (BEAKER) (test 8.5 mg/dL 8.4-10.2 mhie=461) EGFR (BEAKER) (test 76 mL/min/1.73 sq m ESTIMATED GFR IS NOT kjcs=9211) ACCURATE CREATININE CLEARANCE IN PREDICTING GLOMERULAR FILTRATION RATE. ESTIMATED GFR IS NOT APPLICABLE FOR DIALYSIS PATIENTS. PROTHROMBIN [id number] 05:59:00 Test Item Value Reference Range Comments PROTIME (BEAKER) (test llcw=951) 14.6 seconds 11.7-14.7 INR (BEAKER) (test vydz=903) 1.1 <=5.9 RECOMMENDED COUMADIN/WARFARIN INR THERAPY RANGESSTANDARD DOSE: 2.0 - 3.0 Includes: PROPHYLAXIS forvenous thrombosis, systemic embolization; TREATMENT for venous thrombosis and/or pulmonary embolus.HIGH RISK: Target INR is 2.5-3.5 for patients with mechanical heart valves.URINALYSIS W/ [id number] 14 :53:00 Test Item Value Reference Range Comments COLOR (BEAKER) (test efhi=885) Yellow CLARITY (BEAKER) (test txem=617) Clear SPECIFIC GRAVITY UA (BEAKER) (test gbcr=860) 1.010 1.001-1.035 PH UA (BEAKER) (test myrr=285) 5.5 5.0-8.0 PROTEIN UA (BEAKER) (test zvhz=186) Negative Negative GLUCOSE UA (BEAKER) (test ggfq=897) Negative Negative KETONES UA (BEAKER) (test zwqs=513) Trace Negative BILIRUBIN UA (BEAKER) (test rfya=132) Negative Negative BLOOD UA (BEAKER) (test zlov=447) Negative Negative NITRITE UA (BEAKER) (test pdcq=299) Negative Negative LEUKOCYTE ESTERASE UA (BEAKER) (test iwwo=792) Negative Negative UROBILINOGEN UA (BEAKER) (test dprw=528) 0.2 mg/dL 0.2-1.0 RBC UA (BEAKER) (test npju=745) 1 /HPF WBC UA (BEAKER) (test hckm=361) 3 /HPF MUCUS (BEAKER) (test mrce=9832) Few SQUAMOUS EPITHELIAL (BEAKER) (test zfwh=874) < /HPF HYALINE CASTS (BEAKER) (test limt=152) 2 /LPF SOURCE(BEAKER) (test delj=5998) HEPATIC FUNCTION [id number] 06:31:00 Test Item Value Reference Range Comments TOTAL PROTEIN (BEAKER) (test rytj=040) 5.2 gm/dL 6.0-8.3 ALBUMIN (BEAKER) (test tuvz=2360) 3.1 g/dL 3.5-5.0 BILIRUBIN TOTAL (BEAKER) (test yduz=959) 1.1 mg/dL 0.2-1.2 BILIRUBIN DIRECT (BEAKER) (test gwtr=944) 0.5 mg/dL 0.1-0.5 ALKALINE PHOSPHATASE (BEAKER) (test avrh=823) 47 U/L 40-150 AST (SGOT) (BEAKER) (test lcxh=065) 20 U/L 5-34 ALT (SGPT) (BEAKER) (test kgvq=640) 15 U/L 6-55 BASIC METABOLIC [id number] 06:31:00 Test Item Value Reference Range Comments SODIUM (BEAKER) (test 139 meq/L 136-145 vsac=013) POTASSIUM (BEAKER) (test 2.7 meq/L 3.5-5.1 adin=239) CHLORIDE (BEAKER) (test 106 meq/L 98-107 gflp=550) CO2 (BEAKER) (test 24 meq/L 22-29 waxm=714) BLOOD UREA NITROGEN 7 mg/dL 7-21 (BEAKER) (test hugw=542) CREATININE (BEAKER) (test 0.61 mg/dL 0.57-1.25 xoly=865) GLUCOSE RANDOM (BEAKER) 88 mg/dL 70-105 (test zpfj=429) CALCIUM (BEAKER) (test 8.4 mg/dL 8.4-10.2 tqwe=123) EGFR (BEAKER) (test 93 mL/min/1.73 sq m ESTIMATED GFR IS NOT rnjq=6827) ACCURATE CREATININE CLEARANCE IN PREDICTING GLOMERULAR FILTRATION RATE. ESTIMATED GFR IS NOT APPLICABLE FOR DIALYSIS PATIENTS. BASIC METABOLIC [id number] 06:30:00 Test Item Value Reference Range Comments SODIUM (BEAKER) (test 136 meq/L 136-145 auoc=111) POTASSIUM (BEAKER) (test 3.0 meq/L 3.5-5.1 Specimen slightly iprf=844) hemolyzed CHLORIDE (BEAKER) (test 106 meq/L 98-107 vcbj=018) CO2 (BEAKER) (test 20 meq/L 22-29 znmt=606) BLOOD UREA NITROGEN 7 mg/dL 7-21 (BEAKER) (test uyvz=049) CREATININE (BEAKER) (test 0.61 mg/dL 0.57-1.25 Specimen slightly eviu=332) hemolyzed GLUCOSE RANDOM (BEAKER) 81 mg/dL 70-105 (test fpye=468) CALCIUM (BEAKER) (test 8.2 mg/dL 8.4-10.2 kvqz=506) EGFR (BEAKER) (test 93 mL/min/1.73 sq m ESTIMATED GFR IS NOT ooqq=9308) ACCURATE CREATININE CLEARANCE IN PREDICTING GLOMERULAR FILTRATION RATE. ESTIMATED GFR IS NOT APPLICABLE FOR DIALYSIS PATIENTS. CBC W/PLT COUNT & AUTO [id number] 06:25:00 Test Item Value Reference Range Comments WHITE BLOOD CELL COUNT (BEAKER) (test ekvc=358) 14.6 K/ L 3.5-10.5 RED BLOOD CELL COUNT (BEAKER) (test awhr=650) 3.75 M/ L 3.93-5.22 HEMOGLOBIN (BEAKER) (test qcps=925) 10.5 GM/DL 11.2-15.7 HEMATOCRIT (BEAKER) (test kvrg=889) 33.1 % 34.1-44.9 MEAN CORPUSCULAR VOLUME (BEAKER) (test gvng=944) 88.3 fL 79.4-94.8 MEAN CORPUSCULAR HEMOGLOBIN (BEAKER) (test 28.0 pg 25.6-32.2 zttx=458) MEAN CORPUSCULAR HEMOGLOBIN CONC (BEAKER) (test 31.7 GM/DL 32.2-35.5 cpmg=377) RED CELL DISTRIBUTION WIDTH (BEAKER) (test 17.5 % 11.7-14.4 oxeu=179) PLATELET COUNT (BEAKER) (test wwhs=076) 246 K/CU MM 150-450 MEAN PLATELET VOLUME (BEAKER) (test ucug=795) 8.9 fL 9.4-12.3 NUCLEATED RED BLOOD CELLS (BEAKER) (test 0 /100 WBC 0-0 gwbw=656) NEUTROPHILS RELATIVE PERCENT (BEAKER) (test 88 % suzn=597) LYMPHOCYTES RELATIVE PERCENT (BEAKER) (test 5 % xnmr=446) MONOCYTES RELATIVE PERCENT (BEAKER) (test 6 % bwqp=808) EOSINOPHILS RELATIVE PERCENT (BEAKER) (test 0 % logh=341) BASOPHILS RELATIVE PERCENT (BEAKER) (test 0 % byxc=541) NEUTROPHILS ABSOLUTE COUNT (BEAKER) (test 12.85 K/ L 1.56-6.13 wisq=889) LYMPHOCYTES ABSOLUTE COUNT (BEAKER) (test 0.71 K/ L 1.18-3.74 oyas=728) MONOCYTES ABSOLUTE COUNT (BEAKER) (test 0.94 K/ L 0.24-0.36 pzfn=778) EOSINOPHILS ABSOLUTE COUNT (BEAKER) (test 0.00 K/ L 0.04-0.36 ooqu=320) BASOPHILS ABSOLUTE COUNT (BEAKER) (test 0.02 K/ L 0.01-0.08 txpg=590) IMMATURE GRANULOCYTES-RELATIVE PERCENT (BEAKER) 1 % 0-1 (test ukow=9172) PROTHROMBIN [id number] 06:21:00 Test Item Value Reference Range Comments PROTIME (BEAKER) (test xuir=363) 13.5 seconds 11.7-14.7 INR (BEAKER) (test qxmu=807) 1.0 <=5.9 RECOMMENDED COUMADIN/WARFARIN INR THERAPY RANGESSTANDARD DOSE: 2.0 - 3.0 Includes: PROPHYLAXIS forvenous thrombosis, systemic embolization; TREATMENT for venous thrombosis and/or pulmonary embolus.HIGH RISK: Target INR is 2.5-3.5 for patients with mechanical heart valves.
[2017-12-06] MEDS ORDERED: ONDANSETRON 4 MG (ODT) TAB ONE (16:10)
--- NOTE | 2017-12-06 16:30 | RAD REPORT ---
EXAM DESCRIPTION: CT - Head C Spine Mpr Wo Con - 12/06/2017 4:17 pm CLINICAL HISTORY: Head and neck pain/radiculopathy COMPARISON: March 2017 TECHNIQUE: Computed axial tomography of the head and cervical spine was obtained. Sagittal and coronal reconstruction was performed. All CT scans are performed using dose optimization technique as appropriate and may include automated exposure control or mA/KV adjustment according to patient size. FINDINGS: An intracranial bleed is not seen. The ventricles are normal in caliber. An extra-axial fl uid collection is not noted. 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 Fluid within the visualized sinuses and mastoids is not seen A cervical fracture is not visualized. No dislocation is noted. Mild posterior subluxation C5 on C6 i s present. Spondylosis C3-4 results in moderate narrowing of the right neural foramina. Moderate narr owing of the neural foramina bilaterally at C5-6 is seen. IMPRESSION: No acute intracranial abnormality is seen. A cervical fracture is not visualized. Cervical spondylosis resulting in moderate foraminal stenosis as described above. If the patient continues have symptoms to suggest acute intracranial/spinal cord/spinal canal patholo gy MRI be recommended
[2017-12-06 16:43] LABS: Urine Amorphous Sediment 1+ /HPF (NONE SEEN); Urine Bacteria >50 /HPF (<20); Urine Culture Reflex Order REFLEXED; Urine RBC <5 /HPF (NONE SEEN)
[2017-12-06 16:47] LABS: Urine Blood TRACE (NEG); Urine Glucose NEGATIVE (NEG); Urine Protein TRACE (NEG); Urine pH 7.5 (5.0-7.0)
--- NOTE | 2017-12-06 17:03 | ER ---
Nurse's Notes [facility] Name: Elva Jenkins Age: 87 yrs Sex: Female : 1930 Arrival Date: 12/06/2017 Time: 15:47 Bed 13 Private MD: Bharti Pollock C Diagnosis: Urinary tract infection, site not specified;Headache Presentation: 12/06 15:52 Presenting complaint: Patient states: Headache and nausea since last night. Transition hb of care: patient was not received from another setting of care. Onset of symptoms was December 05, 2017. Risk Assessment: Do you want to hurt yourself or someone else? Patient reports no desire to harm self or others. Care prior to arrival: Medication(s) given: Tylenol, 1045 today. 15:52 Method Of Arrival: Wheelchair hb 15:52 Acuity: TAVON 3 hb 16:13 Initial Sepsis Screen: Does the patient meet any 2 criteria? No. Patient's initial hj sepsis screen is negative. Does the patient have a suspected source of infection? No. Patient's initial sepsis screen is negative. Triage Assessment: 16:12 Headache History: Denies prior headaches. General: Appears in no apparent distress. hj uncomfortable, Behavior is calm, cooperative, appropriate for age. Pain: Complains of pain in forehead and top of head Pain Pain began 1 day ago. Also complains of nausea. Neuro: Level of Consciousness is awake, alert, obeys commands, Oriented to person, place, time, situation, Appropriate for age. Historical: - Allergies: 15:54 Asacol; hb 15:54 Demerol; hb 15:54 Humira; hb 15:54 Methotrexate; hb 15:54 Orencia; hb 15:54 Phenergan; hb 15:54 promethazine HCl; hb 15:54 Rituxan; hb 15:54 Sulfazine; hb - Home Meds: 15:54 alprazolam 0.25 mg Oral tab 1 tab BID PRN [Active]; Daliresp 500 mcg Oral tab 1 tab hj once daily [Active]; furosemide 20 mg Oral tab 1 tab once daily [Active]; levothyroxine 50 mcg tab 1 tab once daily [Active]; paroxetine HCl 40 mg Oral tab 1 tab once daily [Active]; prednisone 5 mg Oral tab 1 tab 2 times per day [Active]; spironolactone 25 mg Oral tab 1 tab once daily [Active]; Xarelto 20 mg Oral tab 1 tab once daily [Active]; - PMHx: 15:54 Anxiety; Arthritis; c-diff 08/13/17; chronic diarrhea; clostridium difficile; colon mass; hj COPD; gastritis; Hernia; Hypothyroidism; rectal mass; TIA; UTI; - PSHx: 15:54 Appendectomy; Cholecystectomy; Hysterectomy; CATARACT SURGERY; Hernia repair; hj - Immunization history:: Adult Immunizations up to date. - Social history:: Smoking status: Patient/guardian denies using tobacco. - Ebola Screening: : No symptoms or risks identified at this time. Screenin:52 Abuse screen: Denies threats or abuse. Denies injuries from another. Nutritional hj screening: No deficits noted. Tuberculosis screening: No symptoms or risk factors identified. Fall Risk None identified. Assessment: 15:55 Reassessment: see triage for assessment;lPratima hj 15:55 General: Appears in no apparent distress. uncomfortable, Behavior is calm, cooperative, hj appropriate for age. Pain: Complains of pain in forehead and top of head. Neuro: Level of Consciousness is awake, alert, obeys commands, Oriented to person, place, time, situation, Appropriate for age. Cardiovascular: Capillary refill < 3 seconds Patient's skin is warm and dry. Respiratory: Airway is patent Respiratory effort is even, unlabored, Respiratory pattern is regular, symmetrical. GI: No signs and/or symptoms were reported involving the gastrointestinal system. : No signs and/or symptoms were reported regarding the genitourinary system. EENT: No signs and/or symptoms were reported regarding the EENT system. Derm: No signs and/or symptoms reported regarding the dermatologic system. Musculoskeletal: No signs and/or symptoms reported regarding the musculoskeletal system. 16:40 Reassessment: Patient and/or family updated on plan of care and expected duration. Pain hj level reassessed. Patient is alert, oriented x 3, equal unlabored respirations, skin warm/dry/pink. awaiting results and POC;. 17:13 Reassessment: Patient and/or family updated on plan of care and expected duration. Pain hj level reassessed. Patient is alert, oriented x 3, equal unlabored respirations, skin warm/dry/pink. for D/C;. Vital Signs: 15:53 BP 136 / 70; Pulse 83; Resp 16; Temp 98.5; Pulse Ox 96% on R/A; Pain 7/10; hb 16:40 BP 135 / 68; Pulse 86; Resp 18; Pulse Ox 95% on R/A; hj 17:14 BP 137 / 80; Pulse 85; Resp 18; Pulse Ox 100% on R/A; hj [place] Coma Score: 17:04 Eye Response: spontaneous(4). Verbal Response: oriented(5). Motor Response: obeys snw commands(6). Total: 15. ED Course: 15:47 Patient arrived in ED. sb2 15:47 Bharti Pollock MD is Private Physician. sb2 15:53 Triage completed. hb 15:54 Arm band placed on left wrist. hb 15:57 Melissa Urban FNP-C is PHCP. snw 15:57 Yayo Garcia MD is Attending Physician. snw 15:59 Marco Schmidt RN is Primary Nurse. hj 16:17 CT Head C Spine In Process Unspecified. EDMS 16:28 Urine Microscopic Only Sent. hj 16:28 Urine Culture Sent. hj 16:39 Patient has correct armband on for positive identification. Bed in low position. Call hj light in reach. Side rails up X 1. Adult w/ patient. 17:02 Bharti Pollock MD is Referral Physician. snw 17:14 No provider procedures requiring assistance completed. Patient did not have IV access hj during this emergency room visit. Administered Medications: 15:59 Drug: Zofran 4 mg Route: PO; hj 16:11 Follow up: Response: No adverse reaction; Nausea is decreased hj 17:00 Drug: Rocephin (cefTRIAXone) 1 grams Route: IM; Site: right gluteus; hj 17:09 Follow up: Response: No adverse reaction hj Outcome: 17:02 Discharge ordered by . snw 17:14 Discharged to home via wheelchair. hj 17:14 Condition: stable 17:14 Discharge instructions given to patient, family, Instructed on discharge instructions, follow up and referral plans. medication usage, Demonstrated understanding of instructions, follow-up care, medications, Prescriptions given X 3. 17:28 Patient left the ED. hj Signatures: Dispatcher [employer] EDIN Melissa Urban FNP-C RN ORTHOPAEDIC-Csnw Marco Schmidt, RN RN Jennifer Young, RN RN Romy Mtz sb2
--- NOTE | 2017-12-06 17:03 | EDPHYS ---
Physician Documentation [facility] Name: Elva Jenkins Age: 87 yrs Sex: Female : 1930 Arrival Date: 12/06/2017 Time: 15:47 Bed 13 Private MD: Bharti Pollock C ED Physician Yayo Garcia HPI: 12/06 16:11 This 87 yrs old Female presents to ER via Wheelchair with complaints of snw Headache, Nausea. 16:11 The patient complains of pain to the top of head and forehead. The patient describes snw the headache as pounding. Onset: The symptoms/episode began/occurred gradually, last night. Associated signs and symptoms: Pertinent positives: nausea. Severity of symptoms: At its worst the pain was moderate. The symptoms are alleviated by nothing. It is unknown whether or not the patient has had similar symptoms in the past. It is unknown whether or not the patient has recently seen a physician. Historical: - Allergies: 15:54 Asacol; hb 15:54 Demerol; hb 15:54 Humira; hb 15:54 Methotrexate; hb 15:54 Orencia; hb 15:54 Phenergan; hb 15:54 promethazine HCl; hb 15:54 Rituxan; hb 15:54 Sulfazine; hb - Home Meds: 15:54 alprazolam 0.25 mg Oral tab 1 tab BID PRN [Active]; Daliresp 500 mcg Oral tab 1 tab hj once daily [Active]; furosemide 20 mg Oral tab 1 tab once daily [Active]; levothyroxine 50 mcg tab 1 tab once daily [Active]; paroxetine HCl 40 mg Oral tab 1 tab once daily [Active]; prednisone 5 mg Oral tab 1 tab 2 times per day [Active]; spironolactone 25 mg Oral tab 1 tab once daily [Active]; Xarelto 20 mg Oral tab 1 tab once daily [Active]; - PMHx: 15:54 Anxiety; Arthritis; c-diff 08/13/17; chronic diarrhea; clostridium difficile; colon mass; hj COPD; gastritis; Hernia; Hypothyroidism; rectal mass; TIA; UTI; - PSHx: 15:54 Appendectomy; Cholecystectomy; Hysterectomy; CATARACT SURGERY; Hernia repair; hj - Immunization history:: Adult Immunizations up to date. - Social history:: Smoking status: Patient/guardian denies using tobacco. - Ebola Screening: : No symptoms or risks identified at this time. ROS: 16:10 Eyes: Negative for injury, pain, redness, and discharge, ENT: Negative for injury, snw pain, and discharge, Neck: Negative for injury, pain, and swelling, Cardiovascular: Negative for chest pain, palpitations, and edema, Respiratory: Negative for shortness of breath, cough, wheezing, and pleuritic chest pain. 16:10 Back: Negative for injury and pain, : Negative for injury, bleeding, discharge, and swelling, MS/Extremity: Negative for injury and deformity, Skin: Negative for injury, rash, and discoloration. 16:10 Constitutional: Positive for malaise. 16:10 Abdomen/GI: Positive for abdominal pain, nausea. 16:10 Neuro: Positive for headache. Exam: 16:10 Head/Face: Normocephalic, atraumatic. Eyes: Pupils equal round and reactive to light, snw extra-ocular motions intact. Lids and lashes normal. Conjunctiva and sclera are non-icteric and not injected. Cornea within normal limits. Periorbital areas with no swelling, redness, or edema. ENT: Nares patent. No nasal discharge, no septal abnormalities noted. Tympanic membranes are normal and external auditory canals are clear. Oropharynx with no redness, swelling, or masses, exudates, or evidence of obstruction, uvula midline. Mucous membranes moist. Neck: Trachea midline, no thyromegaly or masses palpated, and no cervical lymphadenopathy. Supple, full range of motion without nuchal rigidity, or vertebral point tenderness. No Meningismus. Chest/axilla: Normal chest wall appearance and motion. Nontender with no deformity. No lesions are appreciated. Cardiovascular: Regular rate and rhythm with a normal S1 and S2. No gallops, murmurs, or rubs. Normal PMI, no JVD. No pulse deficits. Respiratory: Lungs have equal breath sounds bilaterally, clear to auscultation and percussion. No rales, rhonchi or wheezes noted. No increased work of breathing, no retractions or nasal flaring. 16:10 Back: No spinal tenderness. No costovertebral tenderness. Full range of motion. Skin: Warm, dry with normal turgor. Normal color with no rashes, no lesions, and no evidence of cellulitis. MS/ Extremity: Pulses equal, no cyanosis. Neurovascular intact. Full, normal range of motion. Psych: Awake, alert, with orientation to person, place and time. Behavior, mood, and affect are within normal limits. 16:10 Constitutional: The patient appears alert, anxious, uncomfortable. 16:10 Abdomen/GI: Inspection: abdomen appears normal, Bowel sounds: normal, Palpation: soft, mild abdominal tenderness, in the epigastric area. 16:10 Neuro: Orientation: is normal, Mentation: is normal, Memory: is normal, seizure activity, is not displayed by the patient, Abnormal movements: there are no abnormal movements. Vital Signs: 15:53 BP 136 / 70; Pulse 83; Resp 16; Temp 98.5; Pulse Ox 96% on R/A; Pain 7/10; hb 16:40 BP 135 / 68; Pulse 86; Resp 18; Pulse Ox 95% on R/A; hj 17:14 BP 137 / 80; Pulse 85; Resp 18; Pulse Ox 100% on R/A; hj [place] Coma Score: 17:04 Eye Response: spontaneous(4). Verbal Response: oriented(5). Motor Response: obeys snw commands(6). Total: 15. MDM: 15:57 Patient medically screened. snw 17:04 Data reviewed: vital signs, nurses notes. Data interpreted: Pulse oximetry: on room air snw is 95 %. Interpretation: normal. Counseling: I had a detailed discussion with the patient and/or guardian regarding: the historical points, exam findings, and any diagnostic results supporting the discharge/admit diagnosis, lab results, the need for outpatient follow up, to return to the emergency department if symptoms worsen or persist or if there are any questions or concerns that arise at home. Special discussion: Based on the history and exam findings, there is no indication for further emergent testing or inpatient evaluation. I discussed with the patient/guardian the need to see the primary care provider for further evaluation of the symptoms. 12/06 16:09 Order name: Urine Culture [facility] 12/06 16:09 Order name: Urine Microscopic Only; Complete Time: 16:47 snw 12/06 15:59 Order name: CT Head C Spine; Complete Time: 16:47 w 12/06 16:41 Order name: Urine Dipstick--Ancillary (enter results); Complete Time: 16:48 bd 12/06 16:09 Order name: Urine Dipstick-Ancillary (obtain specimen); Complete Time: 16:28 snw Administered Medications: 15:59 Drug: Zofran 4 mg Route: PO; hj 16:11 Follow up: Response: No adverse reaction; Nausea is decreased hj 17:00 Drug: Rocephin (cefTRIAXone) 1 grams Route: IM; Site: right gluteus; hj 17:09 Follow up: Response: No adverse reaction hj Disposition: 12/06/17 17:02 Discharged to Home. Impression: Urinary tract infection, site not specified, Headache. - Condition is Stable. - Discharge Instructions: Urinary Tract Infection, Adult, Rehydration, Adult. - Prescriptions for Augmentin 875- 125 mg Oral Tablet - take 1 tablet by ORAL route every 12 hours for 10 days; 20 tablet. Zofran 4 mg Oral Tablet - take 1 tablet by ORAL route every 12 hours As needed; 6 tablet. Macrobid 100 mg Oral Capsule - take 1 capsule by ORAL route every 12 hours for 10 days; 20 capsule. - Medication Reconciliation Form, Thank You Letter, Antibiotic Education, Prescription Opioid Use form. - Follow up: Bharti Pollock MD; When: 1 - 2 days; Reason: Recheck today's complaints, Continuance of care, Re-evaluation by your physician. Follow up: Emergency Department; When: As needed; Reason: Worsening of condition. Addendum: 12/10/2017 16:53 Co-signature as Attending Physician, Yayo Garcia MD. g s Signatures: Dispatcher [employer] EDGA Melissa Urban, [facility]-C TELECOM ENGINEER-Csnw Marco Schmidt RN RN hj Baxter, Heather, RN RN Yayo Garcia MD MD Corrections: (The following items were deleted from the chart) 12/06 17:28 17:02 12/06/2017 17:02 Discharged to Home. Impression: Urinary tract infection, site hj not specified; Headache. Condition is Stable. Forms are Medication Reconciliation Form, Thank You Letter, Antibiotic Education, Prescription Opioid Use. Follow up: Bharti Pollock; When: 1 - 2 days; Reason: Recheck today's complaints, Continuance of care, Re-evaluation by your physician. Follow up: Emergency Department; When: As needed; Reason: Worsening of condition. snw
[2017-12-06] MEDS ORDERED: CEFTRIAXONE 1000 MG/VIAL ONE (17:11)
[2017-12-06] MEDS ORDERED: LIDOCAINE 1% MPF 2 ML AMPULE ONE (17:11)
[2017-12-06 18:09] VITALS: TEMP 98.5
[2017-12-06 18:11] VITALS: BP 137/80; O2SAT 100
== END 2017-12-06 17:28 | disposition home or self-care (01) ==
LOC: ER 15:44
DX: N39.0 Urinary tract infection, site not specified (principal); J44.9 Chronic obstructive pulmonary disease, unspecified; F41.9 Anxiety disorder, unspecified; E03.9 Hypothyroidism, unspecified; Z88.2 Allergy status to sulfonamides; Z88.5 Allergy status to narcotic agent; Z88.8 Allergy status to other drugs, medicaments and biological substances
CPT/HCPCS: 70450; 72125; 87077; 87086; 87088; 87186; 96372; 99284; J2001; 81003; 81015

== ENCOUNTER 2017-12-07 15:35 | Inpatient (IN) | payer OTHER ==
--- OUTSIDE RECORDS SUMMARY | 2017-12-07 15:38 | XMS REPORT | Clinical Summary ---
:1930 Author Organization [facility] Address [address] [place] [address] Care Team Providers Name Role Phone Asked, [...] Hiatal hernia ( Primary RPratima, Dx) after 12/06/2016 Family History Medical History Relation Name Comments [...] Taken Blood Pressure 154/73 04/19/2017 11:52 AM AUTOPSY PATHOLOGIST Pulse 101 04/19/2017 1:00 PM AUTOPSY PATHOLOGIST Temperature 36.7 C (98 F) 04/19/2017 11:52 AM AUTOPSY PATHOLOGIST Respiratory Rate 20 04/19/2017 1:00 PM AUTOPSY PATHOLOGIST Oxygen Saturation 96% 04/19/2017 2:33 PM AUTOPSY PATHOLOGIST Inhaled Oxygen Concentration - - Weight 54.4 kg (120 lb) 04/12/2017 12:01 PM AUTOPSY PATHOLOGIST Height 149.9 cm (4' 11") 04/12/2017 12:01 PM AUTOPSY PATHOLOGIST Body Mass Index 24.24 04/12/2017 12:01 PM AUTOPSY PATHOLOGIST Plan of Treatment Health Maintenance Due Date Last Done Comments SHINGRIX VACCINE (#1) 1981 ZOSTER VACCINE 1991 PNEUMOCOCCAL POLYSACCHARIDE VACCINE AGE 65 AND OVER 1996 PNEUMOCOCCAL-13 1996 INFLUENZA VACCINE 10/12/2017 Implants Implanted Type Area Pouring Crane Operator Device Identifier Expiration Date Model / Serial / Lot Reveal Linq-02/02/2016 Implanted: Qty: 1 on 02/02/2016 Procedures Procedure Name Priority Date/Time Associated Comments Diagnosis US DUPLEX VENOUS Routine 04/19/2017 11:11 Results for this LOWER EXTREMITY AM AUTOPSY PATHOLOGIST procedure are in BILATERAL the results section. ZZESTIMATED GFR Routine 04/19/2017 4:00 Results for this AM AUTOPSY PATHOLOGIST procedure are in the results section. PHOSPHORUS LEVEL Routine 04/19/2017 4:00 Results for this AM AUTOPSY PATHOLOGIST procedure are in the results section. MAGNESIUM LEVEL Routine 04/19/2017 4:00 Results for this AM AUTOPSY PATHOLOGIST procedure are in the results section. BASIC METABOLIC PANEL Routine 04/19/2017 4:00 Results for this AM AUTOPSY PATHOLOGIST procedure are in the results section. HC COMPLETE BLD COUNT Routine 04/19/2017 3:45 Results for this W/AUTO DIFF AM AUTOPSY PATHOLOGIST procedure are in the results section. MAGNESIUM LEVEL Routine 04/18/2017 4:00 Results for this AM AUTOPSY PATHOLOGIST procedure are in the results section. ZZESTIMATED GFR Routine 04/18/2017 4:00 Results for this AM AUTOPSY PATHOLOGIST procedure are in the results section. PHOSPHORUS LEVEL Routine 04/18/2017 4:00 Results for this AM AUTOPSY PATHOLOGIST procedure are in the results section. HC COMPLETE BLD COUNT Routine 04/18/2017 4:00 Results for this W/AUTO DIFF AM AUTOPSY PATHOLOGIST procedure are in the results section. BASIC METABOLIC PANEL Routine 04/18/2017 4:00 Results for this AM AUTOPSY PATHOLOGIST procedure are in the results section. XR ABDOMEN 1 VW STAT 04/17/2017 1:00 Results for this PORTABLE PM AUTOPSY PATHOLOGIST procedure are in the results section. ZZESTIMATED GFR Routine 04/17/2017 4:00 Results for this AM AUTOPSY PATHOLOGIST procedure are in the results section. PHOSPHORUS LEVEL Routine 04/17/2017 4:00 Results for this AM AUTOPSY PATHOLOGIST procedure are in the results section. HC COMPLETE BLD COUNT Routine 04/17/2017 4:00 Results for this W/AUTO DIFF AM AUTOPSY PATHOLOGIST procedure are in the results section. BASIC METABOLIC PANEL Routine 04/17/2017 4:00 Results for this AM AUTOPSY PATHOLOGIST procedure are in the results section. XR ABDOMEN 2 VW AP W STAT 04/16/2017 9:23 Results for this UPRIGHT AND/OR AM AUTOPSY PATHOLOGIST procedure are in DECUBITUS the results section. HC COMPLETE BLD COUNT Routine 04/16/2017 4:15 Results for this W/AUTO DIFF AM AUTOPSY PATHOLOGIST procedure are in the results section. ZZESTIMATED GFR Routine 04/16/2017 4:00 Results for this AM AUTOPSY PATHOLOGIST procedure are in the results section. MAGNESIUM LEVEL Routine 04/16/2017 4:00 Results for this AM AUTOPSY PATHOLOGIST procedure are in the results section. PHOSPHORUS LEVEL Routine 04/16/2017 4:00 Results for this AM AUTOPSY PATHOLOGIST procedure are in the results section. BASIC METABOLIC PANEL Routine 04/16/2017 4:00 Results for this AM AUTOPSY PATHOLOGIST procedure are in the results section. XR ABDOMEN 1 VW STAT 04/15/2017 7:50 Results for this PORTABLE AM AUTOPSY PATHOLOGIST procedure are in the results section. ZZESTIMATED GFR Routine 04/15/2017 4:00 Results for this AM AUTOPSY PATHOLOGIST procedure are in the results section. PHOSPHORUS LEVEL Routine 04/15/2017 4:00 Results for this AM AUTOPSY PATHOLOGIST procedure are in the results section. MAGNESIUM LEVEL Routine 04/15/2017 4:00 Results for this AM AUTOPSY PATHOLOGIST procedure are in the results section. HC COMPLETE BLD COUNT Routine 04/15/2017 4:00 Results for this W/AUTO DIFF AM AUTOPSY PATHOLOGIST procedure are in the results section. BASIC METABOLIC PANEL Routine 04/15/2017 4:00 Results for this AM AUTOPSY PATHOLOGIST procedure are in the results section. HC COMPLETE BLD COUNT Routine 04/14/2017 4:10 Results for this W/AUTO DIFF AM AUTOPSY PATHOLOGIST procedure are in the results section. ZZESTIMATED GFR Routine 04/14/2017 4:00 Results for this AM AUTOPSY PATHOLOGIST procedure are in the results section. BASIC METABOLIC PANEL Routine 04/14/2017 4:00 Results for this AM AUTOPSY PATHOLOGIST procedure are in the results section. ECG 12-LEAD STAT 04/13/2017 4:43 Results for this AM AUTOPSY PATHOLOGIST procedure are in the results section. ZZESTIMATED GFR Routine 04/13/2017 3:44 Results for this AM AUTOPSY PATHOLOGIST procedure are in the results section. BASIC METABOLIC PANEL Routine 04/13/2017 3:44 Results for this AM AUTOPSY PATHOLOGIST procedure are in the results section. HC COMPLETE BLD COUNT Routine 04/13/2017 3:00 Results for this W/AUTO DIFF AM AUTOPSY PATHOLOGIST procedure are in the results section. XR CHEST 1 VW STAT 04/12/2017 3:48 Results for this PORTABLE PM AUTOPSY PATHOLOGIST procedure are in the results section. CENTRAL LINE Routine 04/12/2017 2:01 PM AUTOPSY PATHOLOGIST Procedure Note - Madhu Monsivais MD - 04/12/2017 2:00 PM AUTOPSY PATHOLOGIST Central line Performed by: MADHU MONSIVAIS Authorized [...] the procedure well with no immediate complications NV AN ELECTIVE ENDOTRACHEAL AIRWAY Routine 04/12/2017 1:58 PM AUTOPSY PATHOLOGIST Procedure Note - Madhu Monsivais MD - 04/12/2017 1:58 PM AUTOPSY PATHOLOGIST Airway Performed by: MADHU MONSIVAIS Authorized by: [...] HERNIA, 04/12/2017 1:30 PM Hiatal hernia LAPAROSCOPIC AUTOPSY PATHOLOGIST PREPARE FRESH FROZEN Timed 04/12/2017 4:00 AM PLASMA AUTOPSY PATHOLOGIST PREPARE RBC Timed 04/12/2017 4:00 AM AUTOPSY PATHOLOGIST ZZESTIMATED GFR Routine 04/12/2017 4:00 AM Results for this AUTOPSY PATHOLOGIST procedure are in the results section. TYPE AND SCREEN Timed 04/12/2017 4:00 AM Results for this AUTOPSY PATHOLOGIST procedure are in the results section. PARTIAL THROMBOPLASTIN Routine 04/12/2017 4:00 AM Results for this TIME (PTT) AUTOPSY PATHOLOGIST procedure are in the results section. PROTHROMBIN TIME WITH Routine 04/12/2017 4:00 AM Results for this INR AUTOPSY PATHOLOGIST procedure are in the results section. BASIC METABOLIC PANEL Routine 04/12/2017 4:00 AM Results for this AUTOPSY PATHOLOGIST procedure are in the results section. HC COMPLETE BLD COUNT Routine 04/12/2017 4:00 AM Results for this W/AUTO DIFF AUTOPSY PATHOLOGIST procedure are in the results section. XR CHEST 2 VW Routine 04/11/2017 7:49 PM Results for this AUTOPSY PATHOLOGIST procedure are in the results section. VANCOMYCIN LEVEL, TROUGH Timed 04/11/2017 3:00 PM Results for this AUTOPSY PATHOLOGIST procedure are in the results section. GRAM STAIN Routine 04/11/2017 10:00 AM Results for this AUTOPSY PATHOLOGIST procedure are in the results section. SPUTUM CULTURE Routine 04/11/2017 10:00 AM Results for this AUTOPSY PATHOLOGIST procedure are in the results section. ZZESTIMATED GFR Routine 04/11/2017 4:15 AM Results for this AUTOPSY PATHOLOGIST procedure are in the results section. BASIC METABOLIC PANEL Routine 04/11/2017 4:15 AM Results for this AUTOPSY PATHOLOGIST procedure are in the results section. HC COMPLETE BLD COUNT Routine 04/11/2017 4:15 AM Results for this W/AUTO DIFF AUTOPSY PATHOLOGIST procedure are in the results section. ZZESTIMATED GFR Routine 04/10/2017 4:15 AM Results for this AUTOPSY PATHOLOGIST procedure are in the results section. BASIC METABOLIC PANEL Routine 04/10/2017 4:15 AM Results for this AUTOPSY PATHOLOGIST procedure are in the results section. HC COMPLETE BLD COUNT Routine 04/10/2017 4:15 AM Results for this W/AUTO DIFF AUTOPSY PATHOLOGIST procedure are in the results section. ZZESTIMATED GFR Routine 04/09/2017 4:51 AM Results for this AUTOPSY PATHOLOGIST procedure are in the results section. BASIC METABOLIC PANEL Routine 04/09/2017 4:51 AM Results for this AUTOPSY PATHOLOGIST procedure are in the results section. HC COMPLETE BLD COUNT Routine 04/09/2017 4:51 AM Results for this W/AUTO DIFF AUTOPSY PATHOLOGIST procedure are in the results section. CT CHEST WO CONTRAST Routine 04/08/2017 8:17 PM Results for this AUTOPSY PATHOLOGIST procedure are in the results section. RESPIRATORY PATHOGEN Routine 04/08/2017 10:25 AM Results for this PANEL AUTOPSY PATHOLOGIST procedure are in the results section. XR CHEST 2 VW STAT 04/08/2017 9:36 AM Results for this AUTOPSY PATHOLOGIST procedure are in the results section. URINALYSIS SCREEN AND Routine 04/08/2017 8:33 AM Results for this MICROSCOPY, WITH REFLEX AUTOPSY PATHOLOGIST procedure are in TO CULTURE the results section. URINE CULTURE Routine 04/08/2017 8:33 AM Results for this AUTOPSY PATHOLOGIST procedure are in the results section. BLOOD CULTURE, AEROBIC & Routine 04/08/2017 8:18 AM Results for this ANAEROBIC AUTOPSY PATHOLOGIST procedure are in the results section. BLOOD CULTURE, AEROBIC & Routine 04/08/2017 8:16 AM Results for this ANAEROBIC AUTOPSY PATHOLOGIST procedure are in the results section. ZZESTIMATED GFR Routine 04/08/2017 8:00 AM Results for this AUTOPSY PATHOLOGIST procedure are in the results section. COMPREHENSIVE METABOLIC Routine 04/08/2017 8:00 AM Results for this PANEL AUTOPSY PATHOLOGIST procedure are in the results section. HC COMPLETE BLD COUNT Routine 04/08/2017 8:00 AM Results for this W/AUTO DIFF AUTOPSY PATHOLOGIST procedure are in the results section. HC COMPLETE BLD COUNT Routine 04/07/2017 5:00 AM Results for this W/AUTO DIFF AUTOPSY PATHOLOGIST procedure are in the results section. ZZESTIMATED GFR Routine 04/07/2017 4:00 AM Results for this AUTOPSY PATHOLOGIST procedure are in the results section. BASIC METABOLIC PANEL Routine 04/07/2017 4:00 AM Results for this AUTOPSY PATHOLOGIST procedure are in the results section. CLOSTRIDIUM DIFFICILE Routine 04/06/2017 1:15 PM Results for this TOXIN AUTOPSY PATHOLOGIST procedure are in the results section. HC COMPLETE BLD COUNT Routine 04/06/2017 5:15 AM Results for this W/AUTO DIFF AUTOPSY PATHOLOGIST procedure are in the results section. ZZESTIMATED GFR Routine 04/06/2017 4:00 AM Results for this AUTOPSY PATHOLOGIST procedure are in the results section. BASIC METABOLIC PANEL Routine 04/06/2017 4:00 AM Results for this AUTOPSY PATHOLOGIST procedure are in the results section. HC COMPLETE BLD COUNT Routine 04/05/2017 5:45 AM Results for this W/AUTO DIFF AUTOPSY PATHOLOGIST procedure are in the results section. ZZESTIMATED GFR Routine 04/05/2017 4:00 AM Results for this AUTOPSY PATHOLOGIST procedure are in the results section. BASIC METABOLIC PANEL Routine 04/05/2017 4:00 AM Results for this AUTOPSY PATHOLOGIST procedure are in the results section. HC COMPLETE BLD COUNT Routine 04/04/2017 4:48 AM Results for this W/AUTO DIFF AUTOPSY PATHOLOGIST procedure are in the results section. ZZESTIMATED GFR Routine 04/04/2017 4:00 AM Results for this AUTOPSY PATHOLOGIST procedure are in the results section. BASIC METABOLIC PANEL Routine 04/04/2017 4:00 AM Results for this AUTOPSY PATHOLOGIST procedure are in the results section. HC COMPLETE BLD COUNT Routine 04/03/2017 5:23 AM Results for this W/AUTO DIFF AUTOPSY PATHOLOGIST procedure are in the results section. ZZESTIMATED GFR Routine 04/03/2017 4:00 AM Results for this AUTOPSY PATHOLOGIST procedure are in the results section. HEPATIC FUNCTION PANEL Routine 04/03/2017 4:00 AM Results for this AUTOPSY PATHOLOGIST procedure are in the results section. C-REACTIVE PROTEIN Routine 04/03/2017 4:00 AM Results for this AUTOPSY PATHOLOGIST procedure are in the results section. PREALBUMIN LEVEL Routine 04/03/2017 4:00 AM Results for this AUTOPSY PATHOLOGIST procedure are in the results section. BASIC METABOLIC PANEL Routine 04/03/2017 4:00 AM Results for this AUTOPSY PATHOLOGIST procedure are in the results section. NM MYOCARDIAL PERFUSION Routine 04/02/2017 9:47 AM Results for this STRESS ONLY AUTOPSY PATHOLOGIST procedure are in the results section. CV STRESS TEST NUCLEAR Routine 04/02/2017 9:47 AM Results for this CARDIO AUTOPSY PATHOLOGIST procedure are in the results section. ECG 12-LEAD STAT 04/02/2017 6:09 AM Results for this AUTOPSY PATHOLOGIST procedure are in the results section. ZZESTIMATED GFR Routine 04/02/2017 5:30 AM Results for this AUTOPSY PATHOLOGIST procedure are in the results section. ALPHA-1 ANTITRYPSIN Routine 04/02/2017 5:30 AM Results for this LEVEL AUTOPSY PATHOLOGIST procedure are in the results section. BASIC METABOLIC PANEL Routine 04/02/2017 5:30 AM Results for this AUTOPSY PATHOLOGIST procedure are in the results section. HC COMPLETE BLD COUNT Routine 04/02/2017 5:30 AM Results for this W/AUTO DIFF AUTOPSY PATHOLOGIST procedure are in the results section. ECHOCARDIOGRAM 2D Routine 04/01/2017 4:35 PM Results for this COMPLETE W MMODE AUTOPSY PATHOLOGIST procedure are in SPECTRAL COLOR DOPPLER the results (71641) section. US CAROTID DUPLEX Routine 04/01/2017 4:08 PM Results for this BILATERAL AUTOPSY PATHOLOGIST procedure are in the results section. XR CHEST 2 VW Routine 04/01/2017 9:42 AM Results for this AUTOPSY PATHOLOGIST procedure are in the results section. ZZESTIMATED GFR Routine 03/31/2017 11:58 PM Results for this AUTOPSY PATHOLOGIST procedure are in the results section. COMPREHENSIVE METABOLIC Routine 03/31/2017 11:58 PM Results for this PANEL AUTOPSY PATHOLOGIST procedure are in the results section. PARTIAL THROMBOPLASTIN Routine 03/31/2017 11:58 PM Results for this TIME (PTT) AUTOPSY PATHOLOGIST procedure are in the results section. PROTHROMBIN TIME WITH Routine 03/31/2017 11:58 PM Results for this INR AUTOPSY PATHOLOGIST procedure are in the results section. HC COMPLETE BLD COUNT Routine 03/31/2017 11:58 PM Results for this W/AUTO DIFF AUTOPSY PATHOLOGIST procedure are in the results section. CT HEAD EXTERNAL STUDY Routine 03/25/2017 5:50 PM Results for this AUTOPSY PATHOLOGIST procedure are in the results section. CT ABD/PELVIC EXTERNAL Routine 03/24/2017 3:30 PM Results for this STUDY AUTOPSY PATHOLOGIST procedure are in the results section. after 12/06/2016 Results Pv duplex venous lower extremity (04/19/2017 11:11 AM) Narrative Performed At [facility] Vascular Ultrasound Laboratory Lower Extremity Venous Report [address] [place] [address] Pat.Name:ELVA JENKINS Pat.ID:[id number] .Date: 04/19/2017Refer.MD:AMBROSIO OG MD Exam Time: 10:32:00 AM Study Type:LE Venous Height:59inWeight: 120lb BSA: 1.49 m2 DOBAge:1930,86Y Sex: FEMALESonogrphr: Eliel Ghotra RN, RVS Pat. Stat.:OutpatientTapeVol: PM, CPT - 4: [id number] Echo Event ID:[id number] Order ID:[id number] Reason for Study:Bilateral leg edema. Race:C SUMMARY: [...] Radiology Results In - 04/19/2017 12:56 PM [facility] Vascular Ultrasound Laboratory Lower Extremity Venous Report [address]Name: ELVA JENKINS Pat.ID: [id number] .Date: 04/19/2017 Refer.MD: AMBROSIO OG MD Exam Time: 10:32:00 AM Study Type:LE Venous Height: 59in Weight: 120lb BSA: 1.49 m2 Age: 2 1930,86Y Sex: FEMALE Sonogrphr: Eliel Ghotra, RN, RVS Pat. Stat.:Outpatient Tape Vol: PM, [facility] - 4: [id number] Echo Event ID:[id number] Order ID: [id number] Reason for Study:Bilateral leg edema. Race: C [...] PM Tucker Kc MD Performing Organization Address City/[facility]/Zipcode Phone Number [facility] [address] [place] [address] Estimated GFR (04/19/2017 4:00 AM)Only the most recent of19 resultswithin the time period is included. GFR Non Af Amer 79 mL/min/1.73 m2 [facility] DEPARTMENT OF PATHOLOGY AND GENOMIC MEDICINE GFR Af Amer >90 mL/min/1.73 m2 [facility] DEPARTMENT OF Comment: PATHOLOGY AND GENOMIC [...] Americans. Specimen Plasma specimen Performing Organization Address City/[facility]/Zipcode Phone Number [facility] DEPARTMENT OF PATHOLOGY AND [address] [place] [address] [facility] [employer] Phosphorus level (04/19/2017 4:00 AM)Only the most recent of5 resultswithin the time period is included. Phosphorus 2.6 2.4 - 4.5 mg/dL [facility] DEPARTMENT OF PATHOLOGY AND GENOMIC MEDICINE Specimen Plasma specimen Performing Organization Address [facility] Phone Number [facility] DEPARTMENT PATHOLOGY AND [address] [place] [address] Magnesium level (04/19/2017 4:00 AM)Only the most recent of4 resultswithin the time period is included. Magnesium 1.6 1.6 - 2.4 mg/dL [facility] DEPARTMENT OF PATHOLOGY AND GENOMIC MEDICINE Specimen Plasma specimen Performing Organization Address [facility] Phone Number [facility] DEPARTMENT OF PATHOLOGY AND [address] [place] [address] Basic metabolic panel (04/19/2017 4:00 AM)Only the most recent of17 resultswithin the time period is included. Sodium 141 135 - 148 mEq/L [facility] DEPARTMENT OF PATHOLOGY AND GENOMIC MEDICINE Potassium 3.4 (L) 3.5 - 5.0 mEq/L [facility] DEPARTMENT OF PATHOLOGY AND GENOMIC MEDICINE Chloride 100 98 - 112 mEq/L [facility] DEPARTMENT OF PATHOLOGY AND GENOMIC MEDICINE CO2 30 24 - 31 mEq/L [facility] DEPARTMENT OF PATHOLOGY AND GENOMIC MEDICINE Anion gap 11 7 - 15 mEq/L [facility] DEPARTMENT OF PATHOLOGY Comment: [facility] Starting from June , anion gap calculation no longer incorporates potassium. Please note the change. BUN 7 (L) 8 - 23 mg/dL [facility] DEPARTMENT OF PATHOLOGY AND GENOMIC MEDICINE Creatinine 0.7 0.5 - 0.9 mg/dL [facility] DEPARTMENT OF PATHOLOGY AND GENOMIC MEDICINE Glucose 117 (H) 65 - 99 mg/dL [facility] DEPARTMENT OF PATHOLOGY AND GENOMIC MEDICINE Calcium 8.2 (L) 8.8 - 10.2 mg/dL [facility] DEPARTMENT OF PATHOLOGY AND GENOMIC MEDICINE Specimen Plasma specimen Performing Organization Address [facility] Phone Number [facility] DEPARTMENT OF PATHOLOGY AND [address] [place] [address] CBC with platelet and differential (04/19/2017 3:45 AM)Only the most recent of19 resultswithin the time period is included. WBC 10.26 4.50 - 11.00 k/uL [facility] DEPARTMENT OF PATHOLOGY AND GENOMIC MEDICINE RBC 2.89 (L) 4.20 - 5.50 m/uL [facility] DEPARTMENT OF PATHOLOGY AND GENOMIC MEDICINE HGB 9.0 (L) 12.0 - 16.0 g/dL [facility] DEPARTMENT OF PATHOLOGY AND GENOMIC MEDICINE HCT 27.2 (L) 37.0 - 47.0 % [facility] DEPARTMENT OF PATHOLOGY AND GENOMIC MEDICINE MCV 94.1 82.0 - 100.0 fL [facility] DEPARTMENT OF PATHOLOGY AND GENOMIC MEDICINE MCH 31.1 27.0 - 34.0 pg [facility] DEPARTMENT OF PATHOLOGY AND GENOMIC MEDICINE MCHC 33.1 31.0 - 37.0 g/dL [facility] DEPARTMENT OF PATHOLOGY AND GENOMIC MEDICINE RDW - SD 48.7 37.0 - 55.0 fL [facility] DEPARTMENT OF PATHOLOGY AND GENOMIC MEDICINE MPV 9.1 8.8 - 13.2 fL [facility] DEPARTMENT OF PATHOLOGY AND GENOMIC MEDICINE Platelet count 305 150 - 400 k/uL [facility] DEPARTMENT OF PATHOLOGY AND GENOMIC MEDICINE Nucleated RBC 0.00 /100 WBC [facility] DEPARTMENT OF PATHOLOGY AND GENOMIC MEDICINE Neutrophils 65.7 39.0 - 69.0 % [facility] DEPARTMENT OF PATHOLOGY AND GENOMIC MEDICINE Lymphocytes 26.3 25.0 - 45.0 % [facility] DEPARTMENT OF PATHOLOGY AND GENOMIC MEDICINE Monocytes 5.9 0.0 - 10.0 % [facility] DEPARTMENT OF PATHOLOGY AND GENOMIC MEDICINE Eosinophils 1.3 0.0 - 5.0 % [facility] DEPARTMENT OF PATHOLOGY AND GENOMIC MEDICINE Basophils 0.3 0.0 - 1.0 % [facility] DEPARTMENT OF PATHOLOGY AND GENOMIC MEDICINE Immature granulocytes 0.5Comment: 0.0 - 1.0 % [facility] DEPARTMENT OF "Immature PATHOLOGY AND GENOMIC granulocytes" MEDICINE (promyelocytes, myelocytes, metamyelocytes) Specimen Blood Performing Organization Address City/State/Zipcode Phone Number [facility] DEPARTMENT OF PATHOLOGY AND [address] [place] [address] [employer] MEDICINE XR Abdomen 1 Vw Portable (04/17/2017 [...] noted. Midline skin digna are also present. [facility]-[id number] Procedure Note Hm Interface, Radiology Results Incoming - 04/17/2017 1:07 PM AUTOPSY PATHOLOGIST EXAMINATION: XR ABDOMEN 1 VW PORTABLE CLINICAL HISTORY: Distention COMPARISON: April 16, 2017 IMPRESSION: Diffuse bowel distention, most pronounced in the right colon, is without significant change. The cecum measures approximately 7.5 cm. This is suggestive of ileus. Left femoral line is again noted. Midline skin digna are also present. [facility]-[id number] Performing Organization Address [facility] Phone Number [facility] [address] [place] [address] XR Abdomen 2 Vw Ap W Upright [...] base with a tiny left pleural effusion. [facility]-[id number] Procedure Note [facility], Radiology Results Incoming - 04/16/2017 9:31 AM AUTOPSY PATHOLOGIST EXAMINATION: XR ABDOMEN 2 VW AP W [...] base with a tiny left pleural effusion. [facility]-[id number] Performing Organization Address [facility]/Zipcode Phone Number [facility] [address] [place] [address] ECG 12 lead (04/13/2017 4:43 AM)Only the most recent of2 resultswithin the time period is included. Ventricular rate 112 [facility] Atrial rate 112 [facility] NV interval 122 [facility] QRSD interval 72 [facility] QT interval 330 [facility] QTC interval 450 [facility] P axis 1 55 [facility] QRS axis 1 21 [facility] T wave axis 40 [facility] MUSE EKG impression Sinus tachycardia-Otherwise normal ECG-In [facility] MUSE automated comparison with ECG of 02-APR-2017 06:09,-No significant change was found- Performing Organization Address [facility] Phone Number [facility] MUSE [address] [place] [address] XR Chest 1 Vw Portable (04/12/2017 3:48 PM) Narrative Performed At Examination:XR CHEST 1 VW PORTABLE RADIANT Clinical history:"Attempted central line placements" Comparison:None IMPRESSION: Lungs are clear. Heart size is within normal limits. Bones are osteopenic. Left cervical calcifications are seen. [id number] Procedure Note Interface, Radiology Results Incoming - 04/12/2017 4:14 PM AUTOPSY PATHOLOGIST Examination: XR CHEST 1 VW PORTABLE Clinical history: "Attempted central line placements" Comparison: None IMPRESSION: Lungs are clear. Heart size is within normal limits. Bones are osteopenic. Left cervical calcifications are seen. [id number] Performing Organization Address [facility] Phone Number [facility] [address] [place] [address] Partial thromboplastin time, activated (04/12/2017 4:00 AM)Only the most recent of2 resultswithin the time period is included. PTT 25.6 23.0 - 36.0 sec [facility] DEPARTMENT OF PATHOLOGY Comment: AND Maven7 PTT therapeutic range for unfractionated heparin is 61.0-112.0 seconds which corresponds to Anti-Xa 0.3-0.7 U/ml. Specimen Blood Performing Organization Address [facility] Phone Number [facility] DEPARTMENT OF PATHOLOGY AND [address] [place] [address] Maven7 Prothrombin time with INR (04/12/2017 4:00 AM)Only the most recent of2 resultswithin the time period is included. Prothrombin time 13.2 12.0 - 15.0 sec [facility] DEPARTMENT OF PATHOLOGY AND GENOMIC MEDICINE INR 1.0 [facility] DEPARTMENT OF Comment: PATHOLOGY AND GENOMIC The International Normalized Ratio (INR) is a therapeutic MEDICINE monitoring tool for patients who are stable on oral anticoagulant therapy. An INR of 2.0-3.0 is suggested for deep vein thrombosis/pulmonary embolism. Specimen Blood Performing Organization Address City/State/Zipcode Phone Number [facility] DEPARTMENT OF PATHOLOGY AND [address] [place] [phone] GENOMIC MEDICINE Type and screen (04/12/2017 4:00 AM) ABO grouping A [facility] DEPARTMENT OF PATHOLOGY AND GENOMIC MEDICINE Rh type POS [facility] DEPARTMENT OF PATHOLOGY AND GENOMIC MEDICINE Antibody screen (gel) NEG [facility] DEPARTMENT OF PATHOLOGY AND GENOMIC MEDICINE Specimen Blood Performing Organization Address [facility] Phone Number [facility] DEPARTMENT OF PATHOLOGY AND [address] [place], [place] [phone] GENOMIC MEDICINE XR Chest 2 Vw (04/11/2017 [...] lower lobe parenchymal infiltrates. No pleural effusion. [facility]-[id number] Procedure Note Interface, Radiology Results Incoming - 04/11/2017 8:47 PM AUTOPSY PATHOLOGIST Examination: Chest 2 views CLINICAL HISTORY: COPD Emphysema COMPARISON: None. FINDINGS: The heart is not enlarged. There is a large retrocardiac hiatal hernia. IMPRESSION: . There is better aeration of both lungs when compared to a recent CT scan from 04/08/2017 with a most complete resolution of right lower lobe parenchymal infiltrates. No pleural effusion. [facility]-[id number] Performing Organization Address City/[facility]/Zipcode Phone Number [facility] [address] [place] [address] Vancomycin level, trough (04/11/2017 3:00 PM) Vancomycin, trough 7.1 (L) 10.0 - 20.0 ug/mL [facility] DEPARTMENT OF Comment: PATHOLOGY AND GENOMIC Therapeutic Ranges: MEDICINE Peak 30.0 - 40.0 ug/mL Tnvyhj82.0 - 20.0 ug/mL Specimen Serum Performing Organization Address City/[facility] Phone Number [facility] DEPARTMENT OF PATHOLOGY AND [address] [place] [address] Sputum culture (04/11/2017 10:00 AM) Sputum culture isolate No normal oral jamal isolated. (A) [facility] DEPARTMENT OF Comment: PATHOLOGY AND GENOMIC Specimen Information MEDICINE Specimen Source: Sputum Specimen Site: Expectorated Sputum culture isolate Amber albicans [facility] DEPARTMENT OF Occasional PATHOLOGY AND GENOMIC The performance characteristics of this assay on this isolate MEDICINE were validated by the Microbiology Laboratory at [facility].This source has not been approved [...] were validated by the Microbiology Laboratory at [facility].This source has not been approved by the U.S. Food and Drug Administration.The results are not intended to be used as the sole means for clinical diagnosis or patient management.The Microbiology Laboratory is authorized under the clinical Laboratory Improvement Amendments of 1988 (CLIA-88) to perform high complexity testing. (A) Specimen Sputum - Expectorated Performing Organization Address [facility] Phone Number [facility] DEPARTMENT OF PATHOLOGY AND [address] [place] [address] Gram stain (04/11/2017 10:00 AM) Gram stain isolate No WBC's [facility] DEPARTMENT OF PATHOLOGY Few epithelial cells AND GENOMIC MEDICINE No organisms seen Comment: Specimen Information Specimen Source: Sputum Specimen Site: Expectorated Specimen Sputum - Expectorated Performing Organization Address City/[facility] Phone Number [facility] DEPARTMENT OF PATHOLOGY AND [address] [place] [phone] [place] [address] CT Chest Wo Contrast (04/08/2017 8:17 PM) [...] irregular nodules most compatible with inflammatory change. [facility]-[id number] Procedure Note Interface, Radiology Results Incoming - 04/08/2017 8:27 PM AUTOPSY PATHOLOGIST EXAMINATION: CT CHEST WO CONTRAST CLINICAL HISTORY: [...] irregular nodules most compatible with inflammatory change. [facility]-[id number] Performing Organization Address City/State/Zipcode Phone Number [facility] [address] [place] [address] Respiratory pathogen panel (04/08/2017 10:25 AM) Respiratory pathogen Negative for all pathogens tested: [facility] DEPARTMENT OF panel Negative for Adenovirus [...] Nares - Not specified Performing Organization Address [facility] Phone Number [facility] DEPARTMENT OF PATHOLOGY [address] [address] [employer] [facility] Urinalysis screen and microscopy, with reflex to culture (04/08/2017 8:33 AM) Specimen site Random void [facility] DEPARTMENT OF PATHOLOGY AND GENOMIC MEDICINE Color, UA Dark Yellow [facility] DEPARTMENT OF PATHOLOGY AND GENOMIC MEDICINE Appearance, UA Clear [facility] DEPARTMENT OF PATHOLOGY AND GENOMIC MEDICINE Specific gravity, UA 1.016 1.001 - 1.035 [facility] DEPARTMENT OF PATHOLOGY AND GENOMIC MEDICINE pH, UA 7.0 5.0 - 8.5 [facility] DEPARTMENT OF PATHOLOGY AND GENOMIC MEDICINE Protein, UA Negative Negative [facility] DEPARTMENT OF PATHOLOGY AND GENOMIC MEDICINE Glucose, UA Negative Negative [facility] DEPARTMENT OF PATHOLOGY AND GENOMIC MEDICINE Ketones, UA Negative Negative [facility] DEPARTMENT OF PATHOLOGY AND GENOMIC MEDICINE Bilirubin, UA Negative Negative [facility] DEPARTMENT OF PATHOLOGY AND GENOMIC MEDICINE Blood, UA Negative Negative [facility] DEPARTMENT OF PATHOLOGY AND GENOMIC MEDICINE Nitrite, UA Negative Negative [facility] DEPARTMENT OF PATHOLOGY AND GENOMIC MEDICINE Urobilinogen, UA 2.0 (A) <2.0 [facility] DEPARTMENT OF PATHOLOGY AND GENOMIC MEDICINE Leukocyte esterase, UA Negative Negative [facility] DEPARTMENT OF PATHOLOGY AND GENOMIC MEDICINE Epithelial cells, UA 1 /HPF [facility] DEPARTMENT OF PATHOLOGY AND GENOMIC MEDICINE WBC, UA 1 0 - 4 /HPF [facility] DEPARTMENT OF PATHOLOGY AND GENOMIC MEDICINE RBC, UA 3 (H) 0 - 2 /HPF [facility] DEPARTMENT OF PATHOLOGY AND GENOMIC MEDICINE Bacteria, UA Few None seen [facility] DEPARTMENT OF PATHOLOGY AND GENOMIC MEDICINE Yeast, UA None seen [facility] DEPARTMENT OF PATHOLOGY AND GENOMIC MEDICINE Yeast with pseudohyphae, UA None seen [facility] DEPARTMENT OF PATHOLOGY [facility] GENOMIC MEDICINE Specimen Urine Performing Organization Address City/[facility] Phone Number [facility] DEPARTMENT OF PATHOLOGY AND [address] [place] [phone] [facility] Urine culture (04/08/2017 8:33 AM) Urine culture SEE COMMENTComment: Bacteriuria [facility] DEPARTMENT OF PATHOLOGY screen negative. AND GENOMIC MEDICINE Performing Organization Address City/[facility] Phone Number [facility] DEPARTMENT OF PATHOLOGY AND [address] [place] [address] [facility] MEDICINE Blood culture, aerobic & anaerobic (04/08/2017 8:18 AM)Only the most recent of2 resultswithin the time period is included. Blood culture isolate No growth after 5 days of incubation. [facility] DEPARTMENT OF Comment: PATHOLOGY AND GENOMIC Specimen Information MEDICINE Specimen Source: Blood Specimen Site: Hand, right Specimen Blood - Hand, right Performing Organization Address City/[facility]/Zipcode Phone Number [facility] DEPARTMENT OF PATHOLOGY AND [address] [place] [address] [facility] Comprehensive metabolic panel (04/08/2017 8:00 AM)Only the most recent of2 resultswithin the time period is included. Sodium 138 135 - 148 mEq/L [facility] DEPARTMENT OF PATHOLOGY AND GENOMIC MEDICINE Potassium 3.7 3.5 - 5.0 mEq/L [facility] DEPARTMENT OF PATHOLOGY AND GENOMIC MEDICINE Chloride 99 98 - 112 mEq/L [facility] DEPARTMENT OF PATHOLOGY AND GENOMIC MEDICINE CO2 28 24 - 31 mEq/L [facility] DEPARTMENT OF PATHOLOGY AND GENOMIC MEDICINE Anion gap 11 7 - 15 mEq/L [facility] DEPARTMENT OF Comment: PATHOLOGY AND GENOMIC Starting from June , anion gap calculation MEDICINE no longer incorporates potassium. Please note the change. BUN 12 8 - 23 mg/dL [facility] DEPARTMENT OF PATHOLOGY AND GENOMIC MEDICINE Creatinine 0.6 0.5 - 0.9 mg/dL [facility] DEPARTMENT OF PATHOLOGY AND GENOMIC MEDICINE Glucose 107 (H) 65 - 99 mg/dL [facility] DEPARTMENT OF PATHOLOGY AND GENOMIC MEDICINE Calcium 8.7 (L) 8.8 - 10.2 mg/dL [facility] DEPARTMENT OF PATHOLOGY AND GENOMIC MEDICINE Protein 5.8 (L) 6.3 - 8.3 g/dL [facility] DEPARTMENT OF Comment: PATHOLOGY AND GENOMIC 4.6-7.0 g/dL MEDICINE 1 week 4.4-7.6 g/dL 7 months-1year5.1-7.3 g/dL 1-2 years5.6-7.5 g/dL >3 years6.0-8.0 g/dL 18-150 6.3-8.3 g/dL Albumin 2.6 (L) 3.5 - 5.0 g/dL [facility] DEPARTMENT OF PATHOLOGY AND GENOMIC MEDICINE A/G ratio 0.8 0.7 - 3.8 [facility] DEPARTMENT OF PATHOLOGY AND GENOMIC MEDICINE Alkaline phosphatase 40 35 - 104 U/L [facility] DEPARTMENT OF PATHOLOGY AND GENOMIC MEDICINE AST 18 10 - 35 U/L [facility] DEPARTMENT OF PATHOLOGY AND GENOMIC MEDICINE ALT 17 5 - 50 U/L [facility] DEPARTMENT OF PATHOLOGY AND GENOMIC MEDICINE Total bilirubin 1.0 0.0 - 1.2 mg/dL [facility] DEPARTMENT OF PATHOLOGY AND GENOMIC MEDICINE Specimen Plasma specimen Performing Organization Address [facility] Phone Number [facility] DEPARTMENT OF PATHOLOGY AND [address] [place] [address] MEDICINE C difficile toxin (04/06/2017 1:15 PM) Clostridium difficile No Clostridium difficle toxin present [facility] DEPARTMENT OF toxin Comment: PATHOLOGY AND GENOMIC Specimen Information MEDICINE Specimen Source: Stool Specimen Site: Nonpreserved Specimen Stool - Nonpreserved Performing Organization Address [facility] Phone Number [facility] DEPARTMENT OF PATHOLOGY AND [address] [place] [address] C-reactive protein (04/03/2017 4:00 AM) CRP <0.30 0.00 - 0.50 mg/dL [facility] DEPARTMENT OF PATHOLOGY AND GENOMIC MEDICINE Specimen Plasma specimen Performing Organization Address [facility] Phone Number [facility] DEPARTMENT OF PATHOLOGY AND [address] [place] [address] Prealbumin level (04/03/2017 4:00 AM) Prealbumin 23 16 - 32 mg/dL [facility] DEPARTMENT OF PATHOLOGY AND GENOMIC MEDICINE Specimen Serum Performing Organization Address [facility] Phone Number [facility] DEPARTMENT OF PATHOLOGY AND [address] [place] [address] Hepatic function panel (04/03/2017 4:00 AM) Albumin 2.7 (L) 3.5 - 5.0 g/dL [facility] DEPARTMENT OF PATHOLOGY AND GENOMIC MEDICINE Total bilirubin 0.6 0.0 - 1.2 mg/dL [facility] DEPARTMENT OF PATHOLOGY AND GENOMIC MEDICINE Bilirubin direct <0.2 0.0 - 0.3 mg/dL [facility] DEPARTMENT OF PATHOLOGY AND GENOMIC MEDICINE Alkaline phosphatase 39 35 - 104 U/L [facility] DEPARTMENT OF PATHOLOGY AND GENOMIC MEDICINE Protein 5.4 (L) 6.3 - 8.3 g/dL [facility] DEPARTMENT OF Comment: PATHOLOGY AND GENOMIC 4.6-7.0 g/dL MEDICINE 1 week 4.4-7.6 g/dL 7 months-1year5.1-7.3 g/dL 1-2 years5.6-7.5 g/dL >3 years6.0-8.0 g/dL 18-150 6.3-8.3 g/dL ALT 20 5 - 50 U/L [facility] DEPARTMENT OF PATHOLOGY AND GENOMIC MEDICINE AST 18 10 - 35 U/L [facility] DEPARTMENT OF PATHOLOGY AND [facility] Specimen Plasma specimen Performing Organization Address City/[facility] Phone Number [facility] DEPARTMENT OF PATHOLOGY AND [address] [place], [place] [phone] [facility] CV stress test (04/02/2017 9:47 AM) Resting HR 89 [facility] MUSE Resting BP 134 [facility] MUSE Peak MET Achieved 1.0 [facility] MUSE Protocol Name [facility] MUSE Time in Exercise Phase 00:01:00 [facility] MUSE Max Systolic BP 134 [facility] MUSE Max Diastolic BP 60 [facility] MUSE Max Heart Rate 113 [facility] MUSE Max Predicted Heart Rate 135 [facility] MUSE Target HR Formula (220 - Age)*100% [facility] MUSE Test Indication chest pain [facility] MUSE Arrhy During Ex [facility] MUSE ECG Interp Before EX [facility] MUSE ECG Interp During Ex [facility] MUSE Ex Summary Comment [facility] MUSE Overall HR Response to [facility] MUSE Exercise Overall BP Response To [facility] MUSE Exercise Reason for Termination [facility] MUSE Stress Test Impression -Waveform interpreted in report [facility] MUSE associated with image study. No interpretation is provided as part of this Stress ECG report.-Electronically Signed By [employer] PALOMARES, Eduard ([id number]), newspaper photo editor Esa Munoz ([id number]) on 04/03/2017 1:32:55 PM Performing Organization Address City/[facility] Phone Number [facility] MUSE [address] [place] [address] Nm myocardial perfusion (04/02/2017 9:47 AM) Narrative Performed At [facility] Nuclear Cardiology and Cardiac CT [address] [address] Myocardial Perfusion Imaging Report Stress ECG tracings are available in MUSE, EPIC and CV Web All ECG interpretations are included in this report Pat.Name:ELVA JENKINS Pat.ID:[id number] .Date: 04/02/2017 Refer.MD:KEVIN ANDRE MD Exam Time: 8:46:00 AM Study Type:Myocardial Perfusion Imaging Height:59inWeight: 119lb BSA: 1.48 m2 DOBAge:1930,86Y Sex: FEMALEBP:134/60 HR:89 bpm Nuclear Tech:Mesfin Gifford [facility]/CASIE NajeraMT Pat. Stat.:Inpatient Room:[facility] Nuclear Event ID:[id number] Order ID:[id number] Reason for Study:Pre-op evaluation, intermediate/high risk patient [...] Radiology Results In - 04/02/2017 11:24 AM [facility] Nuclear Cardiology and Cardiac CT [address] [place] [address] Myocardial Perfusion Imaging Report Stress ECG tracings are available in [employer], [employer] and [employer] All ECG interpretations are included in this report Pat.Name: ELVA JENKINS Pat.ID: [id number] .Date: 04/02/2017 Refer.MD: KEVIN ANDRE MD Exam Time: 8:46:00 AM Study Type:Myocardial Perfusion Imaging Height: 59in Weight: 119lb BSA: 1.48 m2 Age: 2 1930,86Y Sex: FEMALE BP: 134/60 HR: 89 bpm Nuclear Tech:CARRIE Carpenter, [facility]/CARRIE Najera Pat. Stat.:Inpatient Room: A748 Nuclear Event ID:[id number] Order ID: [id number] Reason for Study:Pre-op evaluation, intermediate/high risk patient [...] Organization Address City/State/Zipcode Phone Number [facility] [address] [place] [address] Alpha-1 antitrypsin level (04/02/2017 5:30 AM) Alpha-1 antitrypsin 136 90 - 200 mg/dL [facility] DEPARTMENT OF PATHOLOGY AND GENOMIC MEDICINE Specimen Plasma specimen Performing Organization Address City/State/Zipcode Phone Number [facility] DEPARTMENT OF PATHOLOGY AND [address] [place] [address] GENOMIC MEDICINE Echocardiogram complete w contrast and 3D if needed (04/01/2017 4:35 PM) Narrative Performed At [facility] E[facility]ocardiography Report [address] [facility] [address], [place] [id number] Pat.Name:ELVA JENKINS Pat.ID:[id number] .Date: 04/01/2017 Refer.MD:KEVIN ANDRE MD Exam Time: 1:15:00 PMStudy Type:Routine Echo Height:59inWeight: 119lb BSA: 1.48 m2 DOBAge:1930,86Y Sex: FEMALEBP:140/66 HR:84 bpm Sonogrphr: Lindsay Edwards RDCS; Debra Darden Stat.:Inpatient Room:[address] Study Status:Final Echo Event ID:[id number] Order ID:[id number] Reason for Study:Etiology - Symptoms or conditions [...] RAPof 5 mmHg. MEASUREMENTS: 2D Parasternal [place] LVOT 1.8 cmLA Ds3.5 cm LVIDd3.4 cmIndex2.3 cm/m Ao An1.9 cm LVIDs1.9 cmAo Rtd 3.3 cm Index2.2 cm/m LV%fs 44.1 % LV Umwf609.6 g(87-129) IVSd 1.5 cmLVM Index 99.7 g/m2 LVPWd1.1 cmRWT0.6 DOPPLER LVOT For Flow LVOT Area2.5 cm2 LVOT SV 66.1 ml JRYTufNub548.3 cm/sHR86.5 bpm LVOTpkPG 7.6 mmHgLVOT CO5.7 l/min LVOTmnPG 4 mmHgLVOT CI3.9 l/m/m2 LVOT TVI26 cm Signed 04/01/2017 11:24 PM Sheila Gage MD Procedure Note Interface, Radiology Results In - 04/01/2017 11:24 PM AUTOPSY PATHOLOGIST Echocardiography Report [address] [place] [address], [place] [address] Pat.Name: JENKINSELVA Gabi.ID: [id number] .Date: 04/01/2017 Refer.MD: KEVIN ANDRE MD Exam Time: 1:15:00 PM Study Type:Routine Echo Height: 59in Weight: 119lb BSA: 1.48 m2 Age: 2 1930,86Y Sex: FEMALE BP: 140/66 HR: 84 bpm Sonogrphr: Lindsay Edwards RDCS; Debra Darden Stat.:Inpatient Room: [address] Study Status:Final Echo Event ID:[id number] Order ID: [id number] Reason for Study:Etiology - Symptoms or conditions [...] of 5 mmHg. MEASUREMENTS: 2D Parasternal [place] LVOT 1.8 cm LA Ds 3.5 cm [...] MD Performing Organization Address City/State/Zipcode Phone Number [facility] [address] [place] [phone] Pv carotid duplex (04/01/2017 4:08 PM) Narrative Performed At [facility] Vascular Ultrasound Laboratory Carotid Artery Duplex Report [address] [facility] [address] [id number] For quality and reliability engineer purposes, the categorization of the degree of the stenosis of this exam is based on criteria described in the IAC carotid stenosis grading white paper( www.intersocietal.org/Vascular) and Reyes Avery., Denny Oliveira., et al. Carotid artery stenosis: campbell-scale and Doppler US diagnosis--Society of Radiologists in Ultrasound Consensus Conference. Radiology. 2003 Nov; 229(2):340-6. Pat.Name:ELVA JENKINS Pat.ID:[id number] .Date: 04/01/2017 Exam Time: 2:54:00 PM Study Type:Carotid DOBAge:1930,86Y Sex: FEMALESonogrphr: Levi Nielsen, RVT, [facility] Pat. Stat.:Inpatient Room:[address] TapeVol: HARDIK, CPT - 4: 69285 Echo Event ID:[id number] Order ID:[id number] Reason for Study:Preop. PMH of HTN, COPD, [...] EDV24.3 cm/s Right ICA Mid ICA Mid [id number] cm/[facility] Mid EDV 32.1 cm/s Right ICA [...] Radiology Results In - 04/01/2017 4:11 PM [facility] Vascular Ultrasound Laboratory Carotid Artery Duplex Report [id number] [place] [address] For quality and reliability engineer purposes, the categorization of the degree of the stenosis of this exam is based on criteria described in the IAC carotid stenosis grading white paper( www.intersocietal.org/Vascular) and Reyes Avery., Denny Oliveira., et al. Carotid artery stenosis: campbell-scale and Doppler US diagnosis--Society of Radiologists in Ultrasound Consensus Conference. Radiology. 2003 Nov; 229(2):340-6. Pat.Name: ELVA JENKINS Pat.ID: [id number] .Date: 04/01/2017 Exam Time: 2:54:00 PM Study Type:Carotid Age: 2 1930,86Y Sex: FEMALE Sonogrphr: Levi Nielsen RVT, [place] Pat. Stat.:Inpatient Room: [address] Tape Vol: HARDIK, CPT - 4: 08052 Echo Event ID:[id number] Order ID: [id number] Reason for Study:Preop. PMH of HTN, COPD, [...] PM Tucker Kc MD Performing Organization Address [facility] Phone Number CUPID [address] [place] [address] CT Head External Study (03/25/2017 5:50 PM) Narrative Performed At This exam was not acquired at a [facility] facility and has not been [facility]ANT interpreted by a [facility] Provider.The exam was imported into our imaging system for comparisons purposes. Performing Organization Address [facility]/Zipcode Phone Number RADIANT [address] [place] [address] CT Abd/Pelvic External Study (03/24/2017 3:30 PM) Narrative Performed At This exam was not acquired at a [facility] facility and has not been HM RADIANT interpreted by a An[facility]ism Provider.The exam was imported into our imaging system for comparisons purposes. Performing Organization Address City/State/Zipcode Phone Number RADIANT [address] [place] [address] after 12/06/2016 Insurance Payer Benefit Plan / Group Subscriber ID Type Phone Address [employer]HC MEDICARE [employer] xxxxxxxxx HMO W [phone] [place] [address]
--- OUTSIDE RECORDS SUMMARY | 2017-12-07 15:39 | XMS REPORT | Clinical Summary ---
:1930 Author Organization [facility] Address [address] [place] [address] Phone Care Team Providers Name Role Phone [...] mg by Discontinued tablet mouth daily. 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 09/17/2017 isreal Cruz PPratima, colitis;Chronic MD obstructive pulmonary disease, unspecified COPD type ([facility]);Gastroesophageal reflux disease without esophagitis;Hypothyroi dism, unspecified type;Deep vein thrombosis (DVT) of left lower extremity, unspecified chronicity, unspecified vein ([facility]);Rectal bleeding;Rectal polyp;Normochromic anemia 09/16/2017 Anesthesia Event Gastroenterology Chanelle Reyes, LOOM CONTROL CHAIN BUILDER 09/16/2017 Procedure Pass Gastroenterology 09/16/2017 Surgery Gastroenterology Brodie, SIGMOIDOSCOPY,POLYPECT KEV Colon MD [facility] - Encounter Medicine Mohamed reflux disease without 08/05/2017 Katie Mcclelland, esophagitis;Hypokalemi a;Other specified Parhizgar, hypothyroidism;Anson Ramirez MD bleeding;Rectal polyp 08/02/2017 Anesthesia Event Gastroenterology Abeba Fuchs, LOOM CONTROL CHAIN BUILDER 08/02/2017 Procedure Pass Gastroenterology 08/02/2017 Surgery Gastroenterology Jorgeshira, COLONOSCOPY,SUBMUCOSAL Mohamed RESECTION Katie Mcclelland MD 07/29/2017 Hospital Pre-Admission Testing Encounter after 12/06/2016 Social History Tobacco Use Types Packs/Day Years [...] unspecified part of colon, unspecified type after 12/06/2016 Results RHYTHM STRIP - SCAN (09/20/2017 12:50 [...] Specimen Performing Laboratory Blood - Arm, Left [address] [place] [address] Narrative RECOMMENDED COUMADIN/WARFARIN INR THERAPY RANGES STANDARD [...] % Specimen Performing Laboratory Blood - Arm, [address] [address] CBC with platelet count + automated diff (09/17/2017 5:35 AM)Only the most recent of4 resultswithin the time period is included. Specimen Performing Laboratory Blood Narrative The following orders were created for panel order CBC with platelet count + automated diff. Procedure Abnormality Status --------- ------ CBC with platelet count ...[[id number]]AbnormalFinal result Please view results for these tests on the individual orders. Magnesium (09/17/2017 5:35 AM)Only the most recent of3 resultswithin the time period is included. Component Value Ref Range Magnesium 1.9 1.6 - 2.6 mg/dL Specimen Performing Laboratory Blood - Arm, [address] [address] Basic metabolic panel (09/17/2017 5:35 AM)Only the [...] PATIENTS. Specimen Performing Laboratory Blood - Arm, Left [address] [address] Type and screen, automated (09/16/2017 6:30 PM) Component Value Ref Range ABO/RH AUTOMATED (BEAKER) A POSITIVE Ab Scrn NEGATIVE Specimen Performing Laboratory Blood [address] [address] CBC (Hemogram only) (09/16/2017 6:30 PM) Component [...] 0 /100 WBC Specimen Performing Laboratory Blood [address] [address] Tissue Exam (09/16/2017 3:38 PM)Only the most recent of2 resultswithin the time period is included. Component Value Ref Range Case Report Surgical Pathology Report Case: [id number] Authorizing Provider:Misha Calloway MDCollected: 09/16/2017 1538 Ordering Location: [address] Received: 09/19/2017 0820 Service Pathologist: Larry Cohn MD Specimen:Polyp, Colon - Rectosigmoid, POLYP TAKEN BY HOT SNARE DIAGNOSIS RECTO-SIGMOID, POLYPECTOMY - TUBULAR ADENOMA - CAUTERIZED EDGE, NEGATIVE FOR ADENOMATOUS CHANGE Signing Pathologist Direct Phone Line: [phone] CPT Code(s) 88821 CLINICAL HISTORY GI bleed SPECIMEN SOURCE Rectosigmoid [...] Laboratory Tissue - Polyp, Colon - Rectosigmoid [address] [address] Calcium, Ionized (08/05/2017 5:48 AM) Component Value Ref Range Calcium, Ion 1.05 (L) 1.12 - 1.27 mmol/L pH, Blood 7.46 Specimen Performing Laboratory Blood - Arm, [address] [address] Prothrombin time/INR (08/05/2017 5:48 AM)Only the most recent of3 resultswithin the time period is included. Component Value Ref Range Protime 14.2 11.7 - 14.7 seconds INR 1.1 <=5.9 Specimen Performing Laboratory Blood - Arm, [address] [address] Narrative RECOMMENDED COUMADIN/WARFARIN INR THERAPY RANGES STANDARD DOSE: 2.0 - 3.0 Includes: PROPHYLAXIS for venous thrombosis, systemic embolization; TREATMENT for venous thrombosis and/or pulmonary embolus. HIGH RISK: Target INR is 2.5-3.5 for patients with mechanical heart valves. Phosphorus (08/05/2017 5:48 AM) Component Value Ref Range Phosphorus 2.7 2.3 - 4.7 mg/dL Specimen Performing Laboratory Blood - Arm, [address] [place] [address] Hepatic function panel (08/05/2017 5:48 AM)Only the [...] U/L Specimen Performing Laboratory Blood - Arm, Right [address] [address] Urinalysis w/Microscopic (08/03/2017 2:35 PM) Component Value Ref Range Color, UA Yellow Clarity, UA Clear Specific [place], UA 1.010 1.001 - 1.035 pH, UA [...] /LPF Specimen Source Specimen Performing Laboratory Urine [address] [address] after 12/06/2016
--- OUTSIDE RECORDS SUMMARY | 2017-12-07 15:40 | XMS REPORT ---
:1930 [facility] [address] [place] [address] Dr. Marsh [address] [place] [id number] Care Team Providers Name Role Phone KIM MCKEON ZARI Unavailable Unavailable RICARDO WILSON Unavailable Unavailable Problems This patient has no known problems. Allergies, Adverse Reactions, Alerts This patient has no known allergies or adverse reactions. Medications This patient has no known medications. Results Test Description Test Time Test Comments Text Results Atomic Results Result Comments TISSUE EXAM 2017-09-20 16:22:00 Surgical Pathology Report Case: [id number] Authorizing Provider: Misha Calloway MD Collected: 09/16/2017 1538 Ordering Location: [address] Received: 09/19/2017 0820 Service Pathologist: Larry Cohn MD Specimen: Polyp, Colon - Rectosigmoid, POLYP TAKEN BY HOT SNARE RECTO-SIGMOID, POLYPECTOMY- TUBULAR ADENOMA- CAUTERIZED EDGE, NEGATIVE FOR ADENOMATOUS CHANGE Signing Pathologist Direct Phone Line: [phone] signed by Larry Cohn MD on 09/20/2017 at 4:22 [id number] bleedRectosigmoid colon polypThe specimen is received in [...] Value Reference Range Comments MAGNESIUM (BEAKER) (test jdhp=020) 1.9 mg/dL 1.6-2.6 BASIC METABOLIC [id number] 07:32:00 Test Item Value Reference Range Comments SODIUM (BEAKER) (test 138 meq/L 136-145 smgc=580) POTASSIUM (BEAKER) (test 4.2 meq/L 3.5-5.1 oggd=791) CHLORIDE (BEAKER) (test 106 meq/L 98-107 xsga=677) CO2 (BEAKER) (test 25 meq/L 22-29 ferd=957) BLOOD UREA NITROGEN 6 mg/dL 7-21 (BEAKER) (test eqlu=837) CREATININE (BEAKER) (test 0.66 mg/dL 0.57-1.25 naso=953) GLUCOSE RANDOM (BEAKER) 76 mg/dL 70-105 (test dhjo=828) CALCIUM (BEAKER) (test 8.4 mg/dL 8.4-10.2 kxxj=912) EGFR (BEAKER) (test 85 mL/min/1.73 sq m ESTIMATED GFR IS NOT xevu=3003) ACCURATE CREATININE CLEARANCE IN PREDICTING GLOMERULAR FILTRATION RATE. ESTIMATED GFR IS NOT APPLICABLE FOR DIALYSIS PATIENTS. [id number] 06:42:00 Test Item Value Reference Range Comments PROTIME (BEAKER) (test lwdn=971) 20.8 seconds 11.7-14.7 INR (BEAKER) (test zivj=736) 1.8 <=5.9 PARTIAL THROMBOPLASTIN TIME (BEAKER) (test 36.1 seconds 22.5-36.0 oyzm=263) RECOMMENDED COUMADIN/WARFARIN INR THERAPY RANGESSTANDARD DOSE: 2.0 - 3.0 Includes: PROPHYLAXIS forvenous thrombosis, systemic embolization; TREATMENT for venous thrombosis and/or pulmonary embolus.HIGH RISK: Target INR is 2.5-3.5 for patients with mechanical heart valves.CBC W/PLT COUNT & AUTO [id number] 06:41:00 Test Item Value Reference Range Comments WHITE BLOOD CELL COUNT (BEAKER) (test uior=929) 5.5 K/ L 3.5-10.5 RED BLOOD CELL COUNT (BEAKER) (test rasc=396) 3.52 M/ L 3.93-5.22 HEMOGLOBIN (BEAKER) (test diqm=163) 10.4 GM/DL 11.2-15.7 HEMATOCRIT (BEAKER) (test cgba=047) 33.1 % 34.1-44.9 MEAN CORPUSCULAR VOLUME (BEAKER) (test kgqd=910) 94.0 fL 79.4-94.8 MEAN CORPUSCULAR HEMOGLOBIN (BEAKER) (test 29.5 pg 25.6-32.2 kmrj=404) MEAN CORPUSCULAR HEMOGLOBIN CONC (BEAKER) (test 31.4 GM/DL 32.2-35.5 mfxo=653) RED CELL DISTRIBUTION WIDTH (BEAKER) (test 19.8 % 11.7-14.4 uwgl=348) PLATELET COUNT (BEAKER) (test gjrz=994) 240 K/CU MM 150-450 MEAN PLATELET VOLUME (BEAKER) (test xhha=420) 8.5 fL 9.4-12.3 NUCLEATED RED BLOOD CELLS (BEAKER) (test 0 /100 WBC 0-0 xvrh=570) NEUTROPHILS RELATIVE PERCENT (BEAKER) (test 43 % lrmu=067) LYMPHOCYTES RELATIVE PERCENT (BEAKER) (test 49 % iohu=052) MONOCYTES RELATIVE PERCENT (BEAKER) (test 7 % pdco=440) EOSINOPHILS RELATIVE PERCENT (BEAKER) (test 1 % uakh=806) BASOPHILS RELATIVE PERCENT (BEAKER) (test 0 % xfju=414) NEUTROPHILS ABSOLUTE COUNT (BEAKER) (test 2.34 K/ L 1.56-6.13 llzx=319) LYMPHOCYTES ABSOLUTE COUNT (BEAKER) (test 2.68 K/ L 1.18-3.74 qwiy=094) MONOCYTES ABSOLUTE COUNT (BEAKER) (test 0.38 K/ L 0.24-0.36 fibg=564) EOSINOPHILS ABSOLUTE COUNT (BEAKER) (test 0.05 K/ L 0.04-0.36 kgfc=743) BASOPHILS ABSOLUTE COUNT (BEAKER) (test 0.02 K/ L 0.01-0.08 ygmn=267) IMMATURE GRANULOCYTES-RELATIVE PERCENT (BEAKER) 0 % 0-1 (test ukfc=3908) [id number] 19:07:00 Test Item Value Reference Range Comments MAGNESIUM (BEAKER) (test jmkl=288) 1.9 mg/dL 1.6-2.6 BASIC METABOLIC [id number] 19:07:00 Test Item Value Reference Range Comments SODIUM (BEAKER) (test 137 meq/L 136-145 iygj=310) POTASSIUM (BEAKER) (test 3.8 meq/L 3.5-5.1 void=705) CHLORIDE (BEAKER) (test 106 meq/L 98-107 pufc=524) CO2 (BEAKER) (test 23 meq/L 22-29 phqc=572) BLOOD UREA NITROGEN 6 mg/dL 7-21 (BEAKER) (test mdbh=515) CREATININE (BEAKER) (test 0.64 mg/dL 0.57-1.25 knjz=364) GLUCOSE RANDOM (BEAKER) 82 mg/dL 70-105 (test viev=437) CALCIUM (BEAKER) (test 8.5 mg/dL 8.4-10.2 ezdx=616) EGFR (BEAKER) (test 88 mL/min/1.73 sq m ESTIMATED GFR IS NOT wodu=0234) ACCURATE CREATININE CLEARANCE IN PREDICTING GLOMERULAR FILTRATION RATE. ESTIMATED GFR IS NOT APPLICABLE FOR DIALYSIS PATIENTS. CBC (HEMOGRAM ONLY)2017-09-16 18:38:00 Test Item Value Reference Range Comments WHITE BLOOD CELL COUNT (BEAKER) (test zhlk=637) 6.5 K/ L 3.5-10.5 RED BLOOD CELL COUNT (BEAKER) (test paax=490) 3.61 M/ L 3.93-5.22 HEMOGLOBIN (BEAKER) (test eaxu=496) 10.9 GM/DL 11.2-15.7 HEMATOCRIT (BEAKER) (test nvlf=871) 33.5 % 34.1-44.9 MEAN CORPUSCULAR VOLUME (BEAKER) (test jvrq=872) 92.8 fL 79.4-94.8 MEAN CORPUSCULAR HEMOGLOBIN (BEAKER) (test 30.2 pg 25.6-32.2 pmrk=348) MEAN CORPUSCULAR HEMOGLOBIN CONC (BEAKER) (test 32.5 GM/DL 32.2-35.5 nuob=589) RED CELL DISTRIBUTION WIDTH (BEAKER) (test 19.8 % 11.7-14.4 vziq=655) PLATELET COUNT (BEAKER) (test yzfh=178) 239 K/CU MM 150-450 MEAN PLATELET VOLUME (BEAKER) (test jtsp=385) 8.7 fL 9.4-12.3 NUCLEATED RED BLOOD CELLS (BEAKER) (test 0 /100 WBC 0-0 umtj=563) [id number] 06:56:00 Test Item Value Reference Range Comments PHOSPHORUS (BEAKER) (test gvob=288) 2.7 mg/dL 2.3-4.7 [id number] 06:56:00 Test Item Value Reference Range Comments MAGNESIUM (BEAKER) (test fmre=066) 1.9 mg/dL 1.6-2.6 BASIC METABOLIC [id number] 06:56:00 Test Item Value Reference Range Comments SODIUM (BEAKER) (test 139 meq/L 136-145 lsgi=674) POTASSIUM (BEAKER) (test 4.1 meq/L 3.5-5.1 ydpn=369) CHLORIDE (BEAKER) (test 107 meq/L 98-107 jjoh=342) CO2 (BEAKER) (test 26 meq/L 22-29 pyun=286) BLOOD UREA NITROGEN 11 mg/dL 7-21 (BEAKER) (test fhph=937) CREATININE (BEAKER) (test 0.73 mg/dL 0.57-1.25 oaiv=619) GLUCOSE RANDOM (BEAKER) 107 mg/dL 70-105 (test zqeg=197) CALCIUM (BEAKER) (test 8.5 mg/dL 8.4-10.2 shzo=035) EGFR (BEAKER) (test 76 mL/min/1.73 sq m ESTIMATED GFR IS NOT qphy=6686) ACCURATE CREATININE CLEARANCE IN PREDICTING GLOMERULAR FILTRATION RATE. ESTIMATED GFR IS NOT APPLICABLE FOR DIALYSIS PATIENTS. HEPATIC FUNCTION [id number] 06:56:00 Test Item Value Reference Range Comments TOTAL PROTEIN (BEAKER) (test yapp=647) 5.2 gm/dL 6.0-8.3 ALBUMIN (BEAKER) (test nqgv=1794) 2.9 g/dL 3.5-5.0 BILIRUBIN TOTAL (BEAKER) (test bmtn=320) 0.8 mg/dL 0.2-1.2 BILIRUBIN DIRECT (BEAKER) (test lzlp=389) 0.4 mg/dL 0.1-0.5 ALKALINE PHOSPHATASE (BEAKER) (test yvug=379) 43 U/L 40-150 AST (SGOT) (BEAKER) (test qlvq=384) 13 U/L 5-34 ALT (SGPT) (BEAKER) (test pbln=717) 10 U/L 6-55 CALCIUM, [id number] 06:36:00 Test Item Value Reference Range Comments CALCIUM IONIZED (BEAKER) (test wgzf=231) 1.05 mmol/L 1.12-1.27 PH, BLOOD (BEAKER) (test iwmc=4022) 7.46 PROTHROMBIN [id number] 06:35:00 Test Item Value Reference Range Comments PROTIME (BEAKER) (test lstk=219) 14.2 seconds 11.7-14.7 INR (BEAKER) (test jssx=678) 1.1 <=5.9 RECOMMENDED COUMADIN/WARFARIN INR THERAPY RANGESSTANDARD DOSE: 2.0 - 3.0 Includes: PROPHYLAXIS forvenous thrombosis, systemic embolization; TREATMENT for venous thrombosis and/or pulmonary embolus.HIGH RISK: Target INR is 2.5-3.5 for patients with mechanical heart valves.CBC W/PLT COUNT & AUTO [id number] 06:25:00 Test Item Value Reference Range Comments WHITE BLOOD CELL COUNT (BEAKER) (test sizs=359) 9.4 K/ L 3.5-10.5 RED BLOOD CELL COUNT (BEAKER) (test smau=653) 3.48 M/ L 3.93-5.22 HEMOGLOBIN (BEAKER) (test fbot=710) 10.0 GM/DL 11.2-15.7 HEMATOCRIT (BEAKER) (test goxk=547) 31.1 % 34.1-44.9 MEAN CORPUSCULAR VOLUME (BEAKER) (test blvy=355) 89.4 fL 79.4-94.8 MEAN CORPUSCULAR HEMOGLOBIN (BEAKER) (test 28.7 pg 25.6-32.2 wrsk=891) MEAN CORPUSCULAR HEMOGLOBIN CONC (BEAKER) (test 32.2 GM/DL 32.2-35.5 acek=882) RED CELL DISTRIBUTION WIDTH (BEAKER) (test 18.3 % 11.7-14.4 nncd=288) PLATELET COUNT (BEAKER) (test bdnl=737) 234 K/CU MM 150-450 MEAN PLATELET VOLUME (BEAKER) (test lkhg=602) 8.9 fL 9.4-12.3 NUCLEATED RED BLOOD CELLS (BEAKER) (test 0 /100 WBC 0-0 xbyl=209) NEUTROPHILS RELATIVE PERCENT (BEAKER) (test 70 % cpia=939) LYMPHOCYTES RELATIVE PERCENT (BEAKER) (test 24 % fhdc=140) MONOCYTES RELATIVE PERCENT (BEAKER) (test 5 % lonh=231) EOSINOPHILS RELATIVE PERCENT (BEAKER) (test 0 % mkgh=434) BASOPHILS RELATIVE PERCENT (BEAKER) (test 0 % itym=418) NEUTROPHILS ABSOLUTE COUNT (BEAKER) (test 6.54 K/ L 1.56-6.13 mtjj=166) LYMPHOCYTES ABSOLUTE COUNT (BEAKER) (test 2.30 K/ L 1.18-3.74 qnut=586) MONOCYTES ABSOLUTE COUNT (BEAKER) (test 0.50 K/ L 0.24-0.36 hzoe=128) EOSINOPHILS ABSOLUTE COUNT (BEAKER) (test 0.03 K/ L 0.04-0.36 khus=068) BASOPHILS ABSOLUTE COUNT (BEAKER) (test 0.02 K/ L 0.01-0.08 jlzb=959) IMMATURE GRANULOCYTES-RELATIVE PERCENT (BEAKER) 0 % 0-1 (test eslb=5697) TISSUE [id number] 14:52:00Surgical Pathology Report Case: [id number] Authorizing Provider: Ricardo Wilson MD Collected: 08/02/2017 1715 Ordering Location: [facility] Endoscopy Received: 08/03/2017 0837 Services Pathologist: Larry Cohn MD Specimen: Rectal, MASS- TAKEN BY ESD, ON WAX, EVALUATE MARGINS RECTAL, 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)- NEGATIVE FOR HIGH GRADE DYSPLASIA OR CARCINOMA- PERIPHERAL MARGINS, NEGATIVE FOR ADENOMATOUS CHANGE Signing Pathologist Direct Phone Line: [phone] signed by Larry Cohn MD on 08/04/2017 at 2:52 [id number] Rectal mass Received in formalin labeled [...] the diagnostic line.CBC W/PLT COUNT & AUTO [id number] 06:19:00 Test Item Value Reference Range Comments WHITE BLOOD CELL COUNT (BEAKER) (test mdky=239) 15.6 K/ L 3.5-10.5 RED BLOOD CELL COUNT (BEAKER) (test zfvn=080) 3.50 M/ L 3.93-5.22 HEMOGLOBIN (BEAKER) (test jcxm=040) 9.9 GM/DL 11.2-15.7 HEMATOCRIT (BEAKER) (test fown=260) 31.4 % 34.1-44.9 MEAN CORPUSCULAR VOLUME (BEAKER) (test jyfw=681) 89.7 fL 79.4-94.8 MEAN CORPUSCULAR HEMOGLOBIN (BEAKER) (test 28.3 pg 25.6-32.2 zskx=176) MEAN CORPUSCULAR HEMOGLOBIN CONC (BEAKER) (test 31.5 GM/DL 32.2-35.5 vuga=663) RED CELL DISTRIBUTION WIDTH (BEAKER) (test 18.0 % 11.7-14.4 mahu=287) PLATELET COUNT (BEAKER) (test sxwt=802) 223 K/CU MM 150-450 MEAN PLATELET VOLUME (BEAKER) (test qenk=698) 8.7 fL 9.4-12.3 NUCLEATED RED BLOOD CELLS (BEAKER) (test 0 /100 WBC 0-0 djag=084) NEUTROPHILS RELATIVE PERCENT (BEAKER) (test 81 % zhlj=565) LYMPHOCYTES RELATIVE PERCENT (BEAKER) (test 15 % qcqv=574) MONOCYTES RELATIVE PERCENT (BEAKER) (test 4 % ztlo=938) EOSINOPHILS RELATIVE PERCENT (BEAKER) (test 0 % zupo=286) BASOPHILS RELATIVE PERCENT (BEAKER) (test 0 % oumz=439) NEUTROPHILS ABSOLUTE COUNT (BEAKER) (test 12.56 K/ L 1.56-6.13 ieof=666) LYMPHOCYTES ABSOLUTE COUNT (BEAKER) (test 2.36 K/ L 1.18-3.74 iswo=298) MONOCYTES ABSOLUTE COUNT (BEAKER) (test 0.56 K/ L 0.24-0.36 wuel=263) EOSINOPHILS ABSOLUTE COUNT (BEAKER) (test 0.03 K/ L 0.04-0.36 sjbv=975) BASOPHILS ABSOLUTE COUNT (BEAKER) (test 0.02 K/ L 0.01-0.08 frpv=275) IMMATURE GRANULOCYTES-RELATIVE PERCENT (BEAKER) 0 % 0-1 (test oaer=2006) HEPATIC FUNCTION [id number] 06:15:00 Test Item Value Reference Range Comments TOTAL PROTEIN (BEAKER) (test lxpp=095) 4.9 gm/dL 6.0-8.3 ALBUMIN (BEAKER) (test fixt=6787) 2.8 g/dL 3.5-5.0 BILIRUBIN TOTAL (BEAKER) (test vivd=584) 1.1 mg/dL 0.2-1.2 BILIRUBIN DIRECT (BEAKER) (test bbzr=024) 0.5 mg/dL 0.1-0.5 ALKALINE PHOSPHATASE (BEAKER) (test qoaw=723) 42 U/L 40-150 AST (SGOT) (BEAKER) (test uhmn=113) 15 U/L 5-34 ALT (SGPT) (BEAKER) (test njxz=104) 12 U/L 6-55 BASIC METABOLIC [id number] 06:15:00 Test Item Value Reference Range Comments SODIUM (BEAKER) (test 139 meq/L 136-145 twda=794) POTASSIUM (BEAKER) (test 4.6 meq/L 3.5-5.1 sror=415) CHLORIDE (BEAKER) (test 108 meq/L 98-107 mvir=781) CO2 (BEAKER) (test 25 meq/L 22-29 bohc=868) BLOOD UREA NITROGEN 13 mg/dL 7-21 (BEAKER) (test pfil=431) CREATININE (BEAKER) (test 0.73 mg/dL 0.57-1.25 khxt=414) GLUCOSE RANDOM (BEAKER) 115 mg/dL 70-105 (test vceu=231) CALCIUM (BEAKER) (test 8.5 mg/dL 8.4-10.2 blna=931) EGFR (BEAKER) (test 76 mL/min/1.73 sq m ESTIMATED GFR IS NOT ozsq=4436) ACCURATE CREATININE CLEARANCE IN PREDICTING GLOMERULAR FILTRATION RATE. ESTIMATED GFR IS NOT APPLICABLE FOR DIALYSIS PATIENTS. PROTHROMBIN [id number] 05:59:00 Test Item Value Reference Range Comments PROTIME (BEAKER) (test siwl=049) 14.6 seconds 11.7-14.7 INR (BEAKER) (test vrkh=220) 1.1 <=5.9 RECOMMENDED COUMADIN/WARFARIN INR THERAPY RANGESSTANDARD DOSE: 2.0 - 3.0 Includes: PROPHYLAXIS forvenous thrombosis, systemic embolization; TREATMENT for venous thrombosis and/or pulmonary embolus.HIGH RISK: Target INR is 2.5-3.5 for patients with mechanical heart valves.URINALYSIS W/ [id number] 14 :53:00 Test Item Value Reference Range Comments COLOR (BEAKER) (test waee=177) Yellow CLARITY (BEAKER) (test xmhf=756) Clear SPECIFIC GRAVITY UA (BEAKER) (test ajaf=841) 1.010 1.001-1.035 PH UA (BEAKER) (test hsmu=884) 5.5 5.0-8.0 PROTEIN UA (BEAKER) (test lzlj=267) Negative Negative GLUCOSE UA (BEAKER) (test xyif=255) Negative Negative KETONES UA (BEAKER) (test rkua=733) Trace Negative BILIRUBIN UA (BEAKER) (test srba=723) Negative Negative BLOOD UA (BEAKER) (test fllr=660) Negative Negative NITRITE UA (BEAKER) (test upsl=151) Negative Negative LEUKOCYTE ESTERASE UA (BEAKER) (test jfpc=517) Negative Negative UROBILINOGEN UA (BEAKER) (test dgly=411) 0.2 mg/dL 0.2-1.0 RBC UA (BEAKER) (test tjpy=518) 1 /HPF WBC UA (BEAKER) (test wktj=703) 3 /HPF MUCUS (BEAKER) (test bhio=6053) Few SQUAMOUS EPITHELIAL (BEAKER) (test nhka=301) < /HPF HYALINE CASTS (BEAKER) (test xtgx=462) 2 /LPF SOURCE(BEAKER) (test aoeu=3817) HEPATIC FUNCTION [id number] 06:31:00 Test Item Value Reference Range Comments TOTAL PROTEIN (BEAKER) (test ohga=592) 5.2 gm/dL 6.0-8.3 ALBUMIN (BEAKER) (test ktit=2751) 3.1 g/dL 3.5-5.0 BILIRUBIN TOTAL (BEAKER) (test ozpd=226) 1.1 mg/dL 0.2-1.2 BILIRUBIN DIRECT (BEAKER) (test cwbp=586) 0.5 mg/dL 0.1-0.5 ALKALINE PHOSPHATASE (BEAKER) (test dect=288) 47 U/L 40-150 AST (SGOT) (BEAKER) (test mhqy=939) 20 U/L 5-34 ALT (SGPT) (BEAKER) (test qagp=054) 15 U/L 6-55 BASIC METABOLIC [id number] 06:31:00 Test Item Value Reference Range Comments SODIUM (BEAKER) (test 139 meq/L 136-145 wkhi=855) POTASSIUM (BEAKER) (test 2.7 meq/L 3.5-5.1 teqy=310) CHLORIDE (BEAKER) (test 106 meq/L 98-107 tocr=541) CO2 (BEAKER) (test 24 meq/L 22-29 ksyv=209) BLOOD UREA NITROGEN 7 mg/dL 7-21 (BEAKER) (test eckz=028) CREATININE (BEAKER) (test 0.61 mg/dL 0.57-1.25 xvzf=700) GLUCOSE RANDOM (BEAKER) 88 mg/dL 70-105 (test qsqs=891) CALCIUM (BEAKER) (test 8.4 mg/dL 8.4-10.2 eojv=543) EGFR (BEAKER) (test 93 mL/min/1.73 sq m ESTIMATED GFR IS NOT nxin=9495) ACCURATE CREATININE CLEARANCE IN PREDICTING GLOMERULAR FILTRATION RATE. ESTIMATED GFR IS NOT APPLICABLE FOR DIALYSIS PATIENTS. BASIC METABOLIC [id number] 06:30:00 Test Item Value Reference Range Comments SODIUM (BEAKER) (test 136 meq/L 136-145 qbqo=514) POTASSIUM (BEAKER) (test 3.0 meq/L 3.5-5.1 Specimen slightly lsgx=301) hemolyzed CHLORIDE (BEAKER) (test 106 meq/L 98-107 dphd=049) CO2 (BEAKER) (test 20 meq/L 22-29 nctq=827) BLOOD UREA NITROGEN 7 mg/dL 7-21 (BEAKER) (test xpeq=538) CREATININE (BEAKER) (test 0.61 mg/dL 0.57-1.25 Specimen slightly vzer=839) hemolyzed GLUCOSE RANDOM (BEAKER) 81 mg/dL 70-105 (test idpy=026) CALCIUM (BEAKER) (test 8.2 mg/dL 8.4-10.2 yenn=212) EGFR (BEAKER) (test 93 mL/min/1.73 sq m ESTIMATED GFR IS NOT aiil=3096) ACCURATE CREATININE CLEARANCE IN PREDICTING GLOMERULAR FILTRATION RATE. ESTIMATED GFR IS NOT APPLICABLE FOR DIALYSIS PATIENTS. CBC W/PLT COUNT & AUTO [id number] 06:25:00 Test Item Value Reference Range Comments WHITE BLOOD CELL COUNT (BEAKER) (test pbyw=598) 14.6 K/ L 3.5-10.5 RED BLOOD CELL COUNT (BEAKER) (test lhxo=260) 3.75 M/ L 3.93-5.22 HEMOGLOBIN (BEAKER) (test nzlj=580) 10.5 GM/DL 11.2-15.7 HEMATOCRIT (BEAKER) (test zptj=354) 33.1 % 34.1-44.9 MEAN CORPUSCULAR VOLUME (BEAKER) (test rdel=448) 88.3 fL 79.4-94.8 MEAN CORPUSCULAR HEMOGLOBIN (BEAKER) (test 28.0 pg 25.6-32.2 nvqt=942) MEAN CORPUSCULAR HEMOGLOBIN CONC (BEAKER) (test 31.7 GM/DL 32.2-35.5 rudo=277) RED CELL DISTRIBUTION WIDTH (BEAKER) (test 17.5 % 11.7-14.4 fnri=078) PLATELET COUNT (BEAKER) (test pzer=292) 246 K/CU MM 150-450 MEAN PLATELET VOLUME (BEAKER) (test wzod=005) 8.9 fL 9.4-12.3 NUCLEATED RED BLOOD CELLS (BEAKER) (test 0 /100 WBC 0-0 jesv=681) NEUTROPHILS RELATIVE PERCENT (BEAKER) (test 88 % ebop=351) LYMPHOCYTES RELATIVE PERCENT (BEAKER) (test 5 % qtkx=167) MONOCYTES RELATIVE PERCENT (BEAKER) (test 6 % lztv=239) EOSINOPHILS RELATIVE PERCENT (BEAKER) (test 0 % ycou=644) BASOPHILS RELATIVE PERCENT (BEAKER) (test 0 % xxno=972) NEUTROPHILS ABSOLUTE COUNT (BEAKER) (test 12.85 K/ L 1.56-6.13 rhhv=725) LYMPHOCYTES ABSOLUTE COUNT (BEAKER) (test 0.71 K/ L 1.18-3.74 lhui=052) MONOCYTES ABSOLUTE COUNT (BEAKER) (test 0.94 K/ L 0.24-0.36 ypss=606) EOSINOPHILS ABSOLUTE COUNT (BEAKER) (test 0.00 K/ L 0.04-0.36 vgsv=619) BASOPHILS ABSOLUTE COUNT (BEAKER) (test 0.02 K/ L 0.01-0.08 wgaz=560) IMMATURE GRANULOCYTES-RELATIVE PERCENT (BEAKER) 1 % 0-1 (test tazy=6342) PROTHROMBIN [id number] 06:21:00 Test Item Value Reference Range Comments PROTIME (BEAKER) (test nyzi=769) 13.5 seconds 11.7-14.7 INR (BEAKER) (test ipur=514) 1.0 <=5.9 RECOMMENDED COUMADIN/WARFARIN INR THERAPY RANGESSTANDARD DOSE: 2.0 - 3.0 Includes: PROPHYLAXIS forvenous thrombosis, systemic embolization; TREATMENT for venous thrombosis and/or pulmonary embolus.HIGH RISK: Target INR is 2.5-3.5 for patients with mechanical heart valves.
--- NOTE | 2017-12-07 16:32 | RAD REPORT ---
EXAM DESCRIPTION: RAD - Chest Pa And Lat (2 Views) - 12/07/2017 4:25 pm CLINICAL HISTORY: SOB Chest pain. 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 The heart is upper limit of normal in size. No displaced fractures. IMPRESSION: Prominent COPD.
[2017-12-07] MEDS ORDERED: NA CHLORIDE 0.9% 1,000 ML ONE (16:56)
[2017-12-07 16:57] LABS: Absolute Monocytes 0.4 K/uL (0.1-1.3); Absolute Neutrophil 4.7 K/uL (1.8-8.0); Basophils % 0.2 % (0-1.3); Eosinophils % 0.3 % (0-4.4); Hematocrit 37.1 % (36.0-45.0); Lymphocytes % 27.8 % (15.3-44.8); MCH 31.9 pg (27.0-35.0); MCV 91.9 fL (80-100); MPV 6.9 fL (7.6-11.3); RBC Red Blood Cell Count 4.03 M/uL (3.86-4.86)
[2017-12-07 17:08] LABS: Protime INR 0.97
[2017-12-07 17:23] LABS: ALT/SGPT 33 U/L (12-78); AST/SGOT 21 U/L (15-37); Alkaline Phosphatase 62 U/L (45-117); BUN Blood Urea Nitrogen 11 mg/dL (7-18); Bicarbonate 30 mmol/L (21-32); Bilirubin Direct 0.4 mg/dL (0-0.2); Bilirubin Total 1.3 mg/dL (0.2-1.0); CKMB Creatine Kinase MB 1.5 ng/mL (0.3-3.6); Creatine Phosphokinase 144 U/L (26-192); Glucose Level 129 mg/dL (74-106); Lipase 216 U/L (73-393); Potassium 4.1 mmol/L (3.5-5.1); Protein, Total 6.5 g/dL (6.4-8.2); Sodium Level 126 mmol/L (136-145); Troponin (Emerg Dept Use Only) < 0.02 ng/mL (0.0-0.045)
--- NOTE | 2017-12-07 18:32 | RAD REPORT ---
EXAM DESCRIPTION: CT - Abdomen Pelvis W Contrast - 12/07/2017 6:09 pm CLINICAL HISTORY: Abdominal pain with nausea. COMPARISON: none. TECHNIQUE: Computed axial tomography of the abdomen pelvis was obtained. 100 cc Isovue-300 was admin istered intravenously. Oral contrast was not requested which limits evaluation of bowel. All CT scans are performed using dose optimization technique as appropriate and may include automated exposure control or mA/KV adjustment according to patient size. FINDINGS: The liver, spleen, pancreas, adrenal and kidneys appear unremarkable. The gallbladder has been removed A hysterectomy has been performed. Mild soft tissue prominence of the right lateral rectal wall is again demonstrated. There is no evidence of diverticulitis. IMPRESSION: Mild soft tissue prominence the right lateral rectal wall is unchanged and has been desc ribed on prior exams No acute abnormality is displayed
--- NOTE | 2017-12-07 19:03 | EDPHYS ---
Physician Documentation [facility] Name: Elva Jenkins Age: 87 yrs Sex: Female : 1930 Arrival Date: 12/07/2017 Time: 15:37 Bed 13 Private MD: Bharti Pollock C ED Physician Kyle Darby HPI: 12/07 16:30 This 87 yrs old Female presents to ER via Wheelchair with complaints of Abd snw Pain > 50 y/o. 16:30 The patient presents with abdominal pain in the epigastric area, feels pressure. Onset: snw The symptoms/episode began/occurred gradually. The symptoms do not radiate. Associated signs and symptoms: Pertinent positives: anorexia, nausea. The symptoms are described as constant, pressure. Severity of pain: At its worst the pain was mild moderate. It is unknown whether or not the patient has had similar symptoms in the past. The patient has been recently seen at the [facility] Emergency Department, yesterday, for similar complaints was given a prescription for antibiotics. Historical: - Allergies: 15:40 Asacol; tw2 15:40 Demerol; tw2 15:40 Humira; tw2 15:40 Methotrexate; tw2 15:40 Orencia; tw2 15:40 Phenergan; tw2 15:40 promethazine HCl; tw2 15:40 Rituxan; tw2 15:40 Sulfazine; tw2 - Home Meds: 15:40 Xarelto 20 mg Oral tab 1 tab once daily [Active]; alprazolam 0.25 mg Oral tab 1 tab BID tw2 PRN [Active]; Daliresp 500 mcg Oral tab 1 tab once daily [Active]; furosemide 20 mg Oral tab 1 tab once daily [Active]; levothyroxine 50 mcg tab 1 tab once daily [Active]; paroxetine HCl 40 mg Oral tab 1 tab once daily [Active]; prednisone 5 mg Oral tab 1 tab 2 times per day [Active]; spironolactone 25 mg Oral tab 1 tab once daily [Active]; - PMHx: 15:40 Anxiety; Arthritis; c-diff 08/13/17; chronic diarrhea; clostridium difficile; colon mass; tw2 COPD; gastritis; Hernia; Hypothyroidism; rectal mass; TIA; UTI; - PSHx: 15:40 Appendectomy; Cholecystectomy; Hysterectomy; CATARACT SURGERY; Hernia repair; tw2 - Immunization history:: Adult Immunizations up to date. - Social history:: Smoking status: Patient/guardian denies using tobacco. - Ebola Screening: : Patient denies travel to an Ebola-affected area in the 21 days before illness onset. ROS: 16:26 Constitutional: Negative for fever, chills, and weight loss, Eyes: Negative for injury, snw pain, redness, and discharge, ENT: Negative for injury, pain, and discharge, Neck: Negative for injury, pain, and swelling, Cardiovascular: Negative for chest pain, palpitations, and edema, Respiratory: Negative for shortness of breath, cough, wheezing, and pleuritic chest pain, Abdomen/GI: Positive for abdominal pain, nausea,anorexia, Negative for diarrhea and constipation, Back: Negative for injury and pain, MS/Extremity: Negative for injury and deformity. 16:26 Skin: Negative for injury, rash, and discoloration, Neuro: Negative for headache, weakness, numbness, tingling, and seizure. 16:26 : Positive for dx with UTI yesterday. Exam: 18:00 Constitutional: This is a well developed, well nourished patient who is awake, alert, snw and in no acute distress. Head/Face: Normocephalic, atraumatic. Eyes: Pupils equal round and reactive to light, extra-ocular motions intact. Lids and lashes normal. Conjunctiva and sclera are non-icteric and not injected. Cornea within normal limits. Periorbital areas with no swelling, redness, or edema. ENT: Nares patent. No nasal discharge, no septal abnormalities noted. Tympanic membranes are normal and external auditory canals are clear. Oropharynx with no redness, swelling, or masses, exudates, or evidence of obstruction, uvula midline. Mucous membranes moist. Neck: Trachea midline, no thyromegaly or masses palpated, and no cervical lymphadenopathy. Supple, full range of motion without nuchal rigidity, or vertebral point tenderness. No Meningismus. Chest/axilla: Normal chest wall appearance and motion. Nontender with no deformity. No lesions are appreciated. Cardiovascular: Regular rate and rhythm with a normal S1 and S2. No gallops, murmurs, or rubs. Normal PMI, no JVD. No pulse deficits. Respiratory: Lungs have equal breath sounds bilaterally, clear to auscultation and percussion. No rales, rhonchi or wheezes noted. No increased work of breathing, no retractions or nasal flaring. Abdomen/GI: Soft, non-tender, with normal bowel sounds. No distension or tympany. No guarding or rebound. No evidence of tenderness throughout. Back: No spinal tenderness. No costovertebral tenderness. Full range of motion. Skin: Warm, dry with normal turgor. Normal color with no rashes, no lesions, and no evidence of cellulitis. MS/ Extremity: Pulses equal, no cyanosis. Neurovascular intact. Full, normal range of motion. Neuro: Awake and alert, GCS 15, oriented to person, place, time, and situation. Cranial nerves II-XII grossly intact. Motor strength 5/5 in all extremities. Sensory grossly intact. Cerebellar exam normal. Normal gait. Psych: Awake, alert, with orientation to person, place and time. Behavior, mood, and affect are within normal limits. Vital Signs: 15:38 BP 136 / 74; Pulse 81; Resp 19; Temp 98.6(O); Pulse Ox 97% on R/A; Weight 49.9 kg (R); tw2 Height 4 ft. 11 in. (149.86 cm) (R); Pain 7/10; 16:30 BP 140 / 71; Pulse 66; Resp 16; Pulse Ox 99% on R/A; ph 17:45 BP 155 / 81; Pulse 67; Resp 16; Pulse Ox 97% on R/A; ph 18:43 BP 162 / 73; Pulse 87; Resp 18; Pulse Ox 100% on R/A; ph 19:11 BP 150 / 93; Pulse 83; Resp 16; Pulse Ox 96% on R/A; ao 20:51 BP 142 / 72; Pulse 81; Resp 16; Pulse Ox 100% on R/A; ao 15:38 Body Mass Index 22.22 (49.90 kg, 149.86 cm) tw2 MDM: 15:50 Patient medically screened. snw 18:45 Data reviewed: vital signs, nurses notes. Data interpreted: Pulse oximetry: on room air snw is 100 %. Interpretation: normal. Counseling: I had a detailed discussion with the patient and/or guardian regarding: the historical points, exam findings, and any diagnostic results supporting the discharge/admit diagnosis, the presence of at least one elevated blood pressure reading (>120/80) during this emergency department visit, lab results, radiology results. Physician consultation: Bharti Pollock MD was called at 18:35, was contacted at 18:35, regarding negative CT scan. Dr. Pollock will call back with dispo plan. 19:02 Physician consultation: Bharti Pollock MD. 12/07 15:47 Order name: T\T\S; Complete Time: 17:40 12/07 15:47 Order name: Basic Metabolic Panel; Complete Time: 17:40 12/07 15:47 Order name: Blood Culture Adult (2) 12/07 15:47 Order name: CBC with Diff; Complete Time: 17:02 12/07 15:47 Order name: Ckmb; Complete Time: 17:40 12/07 15:47 Order name: CPK; Complete Time: 17:40 12/07 15:47 Order name: Lactate; Complete Time: 17:43 12/07 15:47 Order name: LFT's; Complete Time: 17:40 12/07 15:47 Order name: Lipase; Complete Time: 17:40 12/07 15:47 Order name: Procalcitonin; Complete Time: 17:46 12/07 15:47 Order name: Protime (+inr); Complete Time: 17:11 12/07 15:47 Order name: Ptt, Activated; Complete Time: 17:11 12/07 15:47 Order name: Troponin (emerg Dept Use Only); Complete Time: 17:40 12/07 15:47 Order name: Urine Microscopic Only 12/07 15:47 Order name: Accucheck; Complete Time: 16:57 12/07 15:47 Order name: Cardiac monitoring; Complete Time: 16:57 12/07 15:47 Order name: EKG - Nurse/Tech; Complete Time: 17:45 12/07 15:47 Order name: IV Saline Lock - Large Bore; Complete Time: 16:57 12/07 15:47 Order name: Labs collected and sent; Complete Time: 16:57 12/07 15:47 Order name: O2 Per Protocol; Complete Time: 16:57 /26 15:47 Order name: O2 Sat Monitoring; Complete Time: 16:57 snw 12/07 15:47 Order name: Urine Dipstick-Ancillary (obtain specimen); Complete Time: 18:50 snw 12/07 15:48 Order name: Chest Pa And Lat (2 Views) XRAY; Complete Time: 16:39 snw 12/07 17:49 Order name: CT Abd/Pelvis - W/Contrast; Complete Time: 18:34 snw 12/07 19:13 Order name: Urine Dipstick--Ancillary (enter results) mt Administered Medications: 16:56 Drug: NS 0.9% 1000 ml Route: IV; Rate: 125 ml/hr; Site: right antecubital; ph 19:34 Follow up: Response: No adverse reaction; IV Status: Infusion continued upon admission ph Disposition: 12/08 07:10 Co-signature as Attending Physician, Kyle Darby MD. rn Disposition: 12/07/17 19:02 Hospitalization ordered by Bharti Pollock for Inpatient Admission. Preliminary diagnosis are Hypo-osmolality and hyponatremia, Urinary tract infection, site not specified. - Bed requested for Telemetry/MedSurg (observation). - Status is Inpatient Admission. ao - Condition is Stable. - Problem is new. - Symptoms are unchanged. UTI on Admission? Yes Signatures: Dispatcher [employer] [facility] Ainsley Phillips RN RN Melissa Urban, CERAMIC SPRAYER-C CERAMIC SPRAYER-Csnw Kyle Darby MD MD rn Hall, Patricia, RN RN ph Ortiz, Alex, RN RN ao Wise, Tara, RN RN tw2 Corrections: (The following items were deleted from the chart) 12/07 16:03 15:48 Chest Single View+RAD.RAD.BRZ ordered. EDAZ EDMS 19:39 19:02 Hospitalization Ordered by A Maris PALOMARES for Inpatient Admission. Preliminary mw diagnosis is Hypo-osmolality and hyponatremia; Urinary tract infection, site not specified. Bed requested for Telemetry/MedSurg (observation). Status is Inpatient Admission. Condition is Stable. Problem is new. Symptoms are unchanged. UTI on Admission? Yes. snw 20:52 19:39 12/07/2017 19:02 Hospitalization Ordered by A Maris PALOMARES for Inpatient Admission. ao Preliminary diagnosis is Hypo-osmolality and hyponatremia; Urinary tract infection, site not specified. Bed requested for Telemetry/MedSurg (observation). Status is Inpatient Admission. Condition is Stable. Problem is new. Symptoms are unchanged. UTI on Admission? Yes. mw
--- NOTE | 2017-12-07 19:03 | ER ---
Nurse's Notes [facility] Name: Elva Jenkins Age: 87 yrs Sex: Female : 1930 Arrival Date: 12/07/2017 Time: 15:37 Bed 13 Private MD: Bharti Pollock C Diagnosis: Hypo-osmolality and hyponatremia;Urinary tract infection, site not specified Presentation: 12/07 15:37 Presenting complaint: Patient states: i am having stomach pressure, i had surgery on a tw2 hernia in may, i cant eat and i feel like i am having trouble breathing. Transition of care: patient was not received from another setting of care. Onset of symptoms was December 07, 2017. Risk Assessment: Do you want to hurt yourself or someone else? Patient reports no desire to harm self or others. Initial Sepsis Screen: Does the patient meet any 2 criteria? No. Patient's initial sepsis screen is negative. Does the patient have a suspected source of infection? No. Patient's initial sepsis screen is negative. Care prior to arrival: None. 15:37 Method Of Arrival: Wheelchair tw2 15:37 Acuity: TAVON 3 tw2 Historical: - Allergies: 15:40 Asacol; tw2 15:40 Demerol; tw2 15:40 Humira; tw2 15:40 Methotrexate; tw2 15:40 Orencia; tw2 15:40 Phenergan; tw2 15:40 promethazine HCl; tw2 15:40 Rituxan; tw2 15:40 Sulfazine; tw2 - Home Meds: 15:40 Xarelto 20 mg Oral tab 1 tab once daily [Active]; alprazolam 0.25 mg Oral tab 1 tab BID tw2 PRN [Active]; Daliresp 500 mcg Oral tab 1 tab once daily [Active]; furosemide 20 mg Oral tab 1 tab once daily [Active]; levothyroxine 50 mcg tab 1 tab once daily [Active]; paroxetine HCl 40 mg Oral tab 1 tab once daily [Active]; prednisone 5 mg Oral tab 1 tab 2 times per day [Active]; spironolactone 25 mg Oral tab 1 tab once daily [Active]; - PMHx: 15:40 Anxiety; Arthritis; c-diff 08/13/17; chronic diarrhea; clostridium difficile; colon mass; tw2 COPD; gastritis; Hernia; Hypothyroidism; rectal mass; TIA; UTI; - PSHx: 15:40 Appendectomy; Cholecystectomy; Hysterectomy; CATARACT SURGERY; Hernia repair; tw2 - Immunization history:: Adult Immunizations up to date. - Social history:: Smoking status: Patient/guardian denies using tobacco. - Ebola Screening: : Patient denies travel to an Ebola-affected area in the 21 days before illness onset. Screenin:01 Abuse screen: Denies threats or abuse. Denies injuries from another. Nutritional ph screening: No deficits noted. Tuberculosis screening: No symptoms or risk factors identified. Fall Risk None identified. Assessment: 16:00 General: Appears in no apparent distress. comfortable, slender, well groomed, Behavior ph is calm, cooperative, appropriate for age. Pain: Complains of pain in epigastric area Quality of pain is described as pressure. Neuro: Level of Consciousness is awake, alert, obeys commands, Oriented to person, place, time, situation. Cardiovascular: Capillary refill < 3 seconds Patient's skin is warm and dry. Respiratory: Airway is patent Respiratory effort is even, unlabored, Respiratory pattern is regular, symmetrical. GI: Abdomen is flat, non-distended, Bowel sounds present X 4 quads. Abd is soft X 4 quads Abdomen is tender to palpation in right upper quadrant and left upper quadrant Reports upper abdominal pain, nausea, Patient currently denies diarrhea, vomiting. : No signs and/or symptoms were reported regarding the genitourinary system. Derm: Skin is intact, is fragile, is thin, Skin is pink, warm \T\ dry. Musculoskeletal: Circulation, motion, and sensation intact. Range of motion: intact in all extremities. 17:15 Reassessment: Patient appears in no apparent distress at this time. Patient and/or ph family updated on plan of care and expected duration. Pain level reassessed. Patient is alert, oriented x 3, equal unlabored respirations, skin warm/dry/pink. Pt resting quietly, awaiting lab results. 18:39 Reassessment: Patient appears in no apparent distress at this time. Patient and/or ph family updated on plan of care and expected duration. Pain level reassessed. Patient is alert, oriented x 3, equal unlabored respirations, skin warm/dry/pink. Pt ambulated to restroom, gait steady, urine sample obtained, awaiting CT results, friend at bedside, VSS. 19:11 General: Appears in no apparent distress. comfortable, slender, well groomed, well ao developed, Behavior is calm, cooperative, appropriate for age. Pain: Complains of pain in abdomen Quality of pain is described as pressure. Neuro: Level of Consciousness is awake, alert, obeys commands, Oriented to person, place, time, situation, Weakness. Cardiovascular: Capillary refill < 3 seconds Patient's skin is warm and dry. Respiratory: Airway is patent Respiratory effort is even, unlabored, Respiratory pattern is regular, symmetrical. GI: Abdomen is flat, non-distended, Bowel sounds present X 4 quads. : No signs and/or symptoms were reported regarding the genitourinary system. Derm: Skin is intact, is fragile, is thin, Skin is pink, warm \T\ dry. normal. Musculoskeletal: Circulation, motion, and sensation intact. Range of motion:. 20:26 Reassessment: Attempted to call report; Nurse will call back. lp1 Vital Signs: 15:38 BP 136 / 74; Pulse 81; Resp 19; Temp 98.6(O); Pulse Ox 97% on R/A; Weight 49.9 kg (R); tw2 Height 4 ft. 11 in. (149.86 cm) (R); Pain 7/10; 16:30 BP 140 / 71; Pulse 66; Resp 16; Pulse Ox 99% on R/A; ph 17:45 BP 155 / 81; Pulse 67; Resp 16; Pulse Ox 97% on R/A; ph 18:43 BP 162 / 73; Pulse 87; Resp 18; Pulse Ox 100% on R/A; ph 19:11 BP 150 / 93; Pulse 83; Resp 16; Pulse Ox 96% on R/A; ao 20:51 BP 142 / 72; Pulse 81; Resp 16; Pulse Ox 100% on R/A; ao 15:38 Body Mass Index 22.22 (49.90 kg, 149.86 cm) tw2 ED Course: 15:37 Patient arrived in ED. sb2 15:37 Bharti Pollock MD is Private Physician. sb2 15:38 Triage completed. tw2 15:39 Arm band placed on. tw2 15:41 Joyce Edwards, GUME is Primary Nurse. ph 15:48 Melissa Urban [facility]C [facility] snw 15:48 Kyle Darby MD is Attending Physician. snw 16:05 Chest Pa And Lat (2 Views) XRAY In Process Unspecified. EDMS 18:01 Patient has correct armband on for positive identification. Placed in gown. Bed in low ph position. Call light in reach. Side rails up X2. monitoring tech on. Pulse ox on. NIBP on. Warm blanket given. 18:[address] via stretcher. nj 18:09 CT completed. Patient tolerated procedure well. Patient moved back from CT. nj 18:09 CT Abd/Pelvis - W/Contrast In Process Unspecified. EDMS 18:59 Bharti Pollock MD is Hospitalizing Provider. snw 19:47 Primary Nurse role handed off by Joyce Edwards RN lp1 19:50 Ahsan Newell, RN is Primary Nurse. ao 20:25 No provider procedures requiring assistance completed. Patient admitted, IV remains in lp1 place. Administered Medications: 16:56 Drug: NS 0.9% 1000 ml Route: IV; Rate: 125 ml/hr; Site: right antecubital; ph 19:34 Follow up: Response: No adverse reaction; IV Status: Infusion continued upon admission ph Outcome: 19:02 Decision to Hospitalize by Provider. snw 20:27 Condition: stable lp1 20:27 Instructed on the need for admit. 20:50 Admitted to Tele accompanied by tech, via stretcher, room 419, with chart, Report ao called to GUME Zapata 20:52 Patient left the ED. ao Signatures: Dispatcher [employer] EDKY Melissa Urban FNP-C STAFF REPORTER-Csnw Radha Mireles RN RN lp1 Joyce Edwards RN RN Ahsan Newell, GUME RN iPng Riggins RN RN 2 Jose Martin Morel Sheri 2
[2017-12-07] MEDS ORDERED: NA CHLORIDE 0.9% 1,000 ML IV SCH (21:16)
[2017-12-07] MEDS ORDERED: SODIUM CHLORIDE 0.9% 10ML INJ IV PRN (21:16)
[2017-12-07] MEDS ORDERED: ALBUTEROL 2.5 MG/3 ML NEB SOL NEB PRN (21:16)
[2017-12-07] MEDS ORDERED: IPRATROPIUM BROM 0.5MG/2.5ML NEB PRN (21:16)
[2017-12-07] MEDS ORDERED: ONDANSETRON 4 MG/2 ML VIAL IV PRN (21:16)
[2017-12-07] MEDS ORDERED: CEFTRIAXONE 1 GM/50 ML BAG IV SCH (22:00)
[2017-12-07] MEDS: PANTOPRAZOLE 40 MG INJ IVP SCH (22:14)
[2017-12-07] MEDS: CEFTRIAXONE/SWI 1gm 1 GM/10 ML SYR IV SCH (22:29)
[2017-12-08] MEDS: ACETAMINOPHEN 500 MG TAB PO PRN ×3 (02:25→21:24)
[2017-12-08 02:37] VITALS: BMI 19.5
[2017-12-08 05:09] LABS: Absolute Lymphocytes (CBC) 2.8 K/uL (0.7-4.9); Absolute Monocytes 0.5 K/uL (0.1-1.3); Absolute Neutrophil 3.5 K/uL (1.8-8.0); Basophils % 1.9 % (0-1.3); Eosinophils % 1.8 % (0-4.4); MCH 31.8 pg (27.0-35.0); MCV 92.2 fL (80-100); MPV 7.4 fL (7.6-11.3); Monocytes % 6.8 % (3.3-12.3)
[2017-12-08 05:19] LABS: BUN Blood Urea Nitrogen 10 mg/dL (7-18); Bicarbonate 31 mmol/L (21-32); Glucose Level 85 mg/dL (74-106); Potassium 3.8 mmol/L (3.5-5.1); Sodium Level 134 mmol/L (136-145)
[2017-12-08] MEDS ORDERED: ALPRAZOLAM 0.25 MG TABLET PO PRN (05:27)
[2017-12-08] MEDS: LEVOTHYROXINE SOD 0.05 MG TABLET PO SCH (05:40)
[2017-12-08] MEDS: PANTOPRAZOLE 40 MG INJ IVP SCH ×2 (08:05→21:24)
[2017-12-08] MEDS: NA CHLORIDE 0.9% 1,000 ML IV SCH (08:05)
[2017-12-08] MEDS: CEFTRIAXONE/SWI 1gm 1 GM/10 ML SYR IV SCH ×2 (08:05→21:24)
[2017-12-08] MEDS: predniSONE 5 MG TAB PO SCH ×2 (08:06→21:24)
[2017-12-08] MEDS: TIOTROPIUM 5 SPRAYS/INHALER IH SCH (09:00)
--- NOTE | 2017-12-08 09:21 | HP ---
Date of Admission: 12/07/2017 Chief Complaint: Abdominal pain, nausea, unable to eat, headache, and not feeling good. History Of Present Illness: An 87-year-old female patient who came in to see me yesterday at office with her sister with 2 days history of headache, nausea. No vomiting. No diarrhea. No constipation. No hematemesis. Denies any fever, but feeling very weak and dizzy and complaining of upper abdominal/ epigastric area pain. After she was evaluated at the office, decision was made to send her to emergency room. She has some blood on the tissue paper when she cleans herself after a bowel movement which is nothing new that is her ongoing problem ever since she had her rectal surgery as she reported. She was sent to emergency room after she was evaluated in the ER. Emergency room provider did a CAT scan of the head, which was negative for any acute changes and urinalysis , which showed evidence of urinary tract infection, so ER provider discharged her to go home with oral antibiotics. Today, the patient came back to the emergency room with ongoing complaints as mentioned above and after she was evaluated she was admitted to the hospital today, I saw her in the emergency room. Medications: List reviewed. Review of Systems: DETAIL ASSEMBLER: As mentioned above. GI: As mentioned above. Genitourinary: As mentioned above. Constitutional: As mentioned above. All other systems reviewed and negative. Allergies: SHE IS LISTED ALLERGIC TO SULFA CAUSING HEADACHE, RITUXIMAB CAUSING LEG SWELLING, PROMETHAZINE CAUSING HALLUCINATIONS AND LEG JERKING AND ARM JERKING, METHOTREXATE CAUSING DYSPNEA, MESALAMINE CAUSING SORE THROAT AND HIVES, ADALIMUMAB CAUSING FACE SWELLING, AND ABATACEPT CAUSING JOINT PAIN. Past Surgical History: Significant for hysterectomy, appendectomy, cholecystectomy, cataract surgery, removal of benign rectal mass on August 02, 2017 , done in [place]. Family History: Significant for parents of old age at age 99 and 95 years. Sister with stroke and hypertension. Social History: Negative for smoking and alcohol use. Past Medical History: Significant for lymphedema of legs, hypertension, hypothyroidism, COPD, chronic steroid therapy, rheumatoid arthritis, leg edema, hemorrhoid, Clostridium difficile colitis, DVT of leg and pulmonary embolism. Physical Examination: Vital Signs: Reviewed. Weight 110 lbs. Height 5' 3". Temperature 98.6, pulse 81, respiratory rate 19, blood pressure 136/74, oxygen saturation 97%. General: Awake, alert, oriented, not in distress. HEENT: Head atraumatic, normocephalic. Conjunctivae nonerythematous. Sclerae white. Mouth, no thrush or edema noted. Ears/Nose, no mass, lesion, discharge noted. Neck: Supple. No JVD, lymph nodes, bruit, thyromegaly noted. Lungs: Bilateral good equal air entry. Clear to auscultation. No rhonchi. No rales. Heart: Normal heart sounds, no murmur or gallop. Abdomen: Soft, bowel sounds normal. No guarding, rigidity, tenderness, mass, hepatosplenomegaly, distention, or bruit noted. Extremities: Bilateral grade 1 pedal edema, nonpitting. Skin: No rash, ulcer, cellulitis. Lymphatics: No lymph node enlargement in neck, supraclavicular, infraclavicular region. Neuro: No focal neurological deficit. Chest: Unremarkable. External Genitalia: Deferred. Rectal: Deferred. Laboratory Data: CAT scan of the head done yesterday negative for any acute intracranial changes. White count today 7.1, hemoglobin 12.9, platelets 264. Sodium 126, potassium 4.1, chloride 92, bicarb 30, BUN 11, creatinine 0.80, glucose 129. Liver function tests unremarkable except total bilirubin 1.3. Troponin less than 0.02. Procalcitonin less than 0.05. Lipase 216. Chest x- ray, no acute cardiopulmonary changes. CAT scan of abdomen shows mild soft tissue prominence in the right lateral rectal wall unchanged from this wound. No acute abnormality detected. Impression: 1. Hyponatremia. 2. Volume depletion. 3. Urinary tract infection. 4. Gastritis, acute. 5. Lymphedema, legs. 6. Hypertension. 7. Chronic obstructive pulmonary disease. 8. Hypothyroidism. 9. Chronic anticoagulation therapy. 10. Chronic steroid therapy. 11. Rheumatoid arthritis. 12. Deep vein thrombosis, leg. 13. Pulmonary embolism. 14. Chronic anticoagulation therapy. Plan: We will admit the patient to hospital for further evaluation and management of this problem. Patient is appropriate for inpatient and is expected to spend 2 midnights in hospital. We will go ahead and give her IV fluid, IV antibiotics. Urine culture collected yesterday growing gram-negative rods. Definite identification sensitivity result pending. We will follow up on the results and then decide about culture specific antibiotics. Meanwhile, we will give IV ceftriaxone 1 g every 12 hours. Give IV Protonix. We will repeat blood work tomorrow morning. Home medications will be continued per order. Details and plan of treatment discussed with the patient. EDMUND Voice ID: [id number] MTDD
--- NOTE | 2017-12-08 11:21 | PN ---
Date of Progress Note: 12/08/2017 Subjective: Patient was seen this morning for followup. She was feeling better than yesterday. No nausea. No vomiting. No abdominal pain, this morning reported. Overall, she feels better. Objective: Vital Signs: Reviewed. HEENT: Examination unremarkable. Lungs: Clear to auscultation. Heart: Sounds normal. Abdomen: Soft. Bowel sounds normal. No guarding, rigidity, tenderness, or distention. Extremities: Bilateral leg edema unchanged from yesterday, nonpitting, chronic and unchanged. Laboratory Data: White count 7, hemoglobin 12.4, platelets 244. Sodium 134, potassium 3.8, chloride 99, bicarb 31, BUN 10, creatinine 0.6, glucose 85. Impression: 1.Volume depletion. 2.Hyponatremia. 3.Acute gastritis. 4.Urinary tract infection. Plan: We will go ahead and continue IV fluid but reduce rate down to 50 cc/hour. Continue current e mpiric antibiotic, which is ceftriaxone. Continue home medications. Ambulation was encouraged. Uri ne culture from day before yesterday, still growing gram-negative rods, definite identification is kaur ahumada. Depending on urine culture results and the patient's condition, we will decide if she can go home either later today or tomorrow. The patient feels a lot better and she is comfortable going home today or tomorrow depending on my recommendation. ARNOL/MODDeejay Voice ID: [id number] Report ID: [id number]
[2017-12-08] MEDS: Budesonide/Formoterol Fumarate (Symbicort) 160-4.5 Mcg Inhaler IH SCH ×2 (12:49→21:24)
[2017-12-08] MEDS ORDERED: PARoxetine HCl 10 MG TAB PO SCH (17:00)
[2017-12-08] MEDS ORDERED: RIVAROXABAN 15 MG TABLET PO SCH (17:00)
[2017-12-08] MEDS ORDERED: RIVAROXABAN 20 MG TABLET PO SCH (18:00)
[2017-12-08] MEDS ORDERED: ATORVASTATIN 40 MG TAB PO SCH (21:00)
[2017-12-08] MEDS ORDERED: MELATONIN 5 MG TABLET PO SCH (21:00)
[2017-12-09] MEDS: NA CHLORIDE 0.9% 1,000 ML IV SCH (02:00)
[2017-12-09 04:09] VITALS: TEMP 98.2
[2017-12-09] MEDS: LEVOTHYROXINE SOD 0.05 MG TABLET PO SCH (05:22)
[2017-12-09 08:01] VITALS: BP 144/70
[2017-12-09] MEDS: TIOTROPIUM 5 SPRAYS/INHALER IH SCH (08:36)
[2017-12-09] MEDS: Budesonide/Formoterol Fumarate (Symbicort) 160-4.5 Mcg Inhaler IH SCH (08:36)
[2017-12-09] MEDS: predniSONE 5 MG TAB PO SCH (08:37)
[2017-12-09] MEDS: CEFTRIAXONE/SWI 1gm 1 GM/10 ML SYR IV SCH (09:00)
[2017-12-09] MEDS: PANTOPRAZOLE 40 MG INJ IVP SCH (09:00)
[2017-12-09 09:47] VITALS: O2SAT 94
--- NOTE | 2017-12-10 07:22 | DS ---
Date of Discharge: 12/09/2017 The patient was seen this morning. Physical Examination: Vital Signs: Reviewed. HEENT: Examination unremarkable. Lungs: Clear to auscultation. Heart: Heart sounds normal. Abdomen: Soft. Bowel sounds normal. No guarding, rigidity, tenderness, distention. Extremities: Trace nonpitting leg edema unchanged. Hospital Course: This is an 87-year-old female patient who was admitted to the hospital with abdomin al pain, poor appetite, headache, nausea, not feeling good. Please see dictated H and P for more inf ormation. After patient was evaluated in the ER, she was admitted to the hospital. The patient had volume depletion with hyponatremia and serum sodium of 126. She was given IV fluid hydration. Her s odium level improved. She was also started on IV antibiotics, ceftriaxone for urinary tract infectio n. Day prior to admission to the hospital, the patient had presented to emergency room and her urina lysis was abnormal consistent with urinary tract infection and from the ER, she was discharged with A ugmentin and Macrobid for urinary tract infection. Her urine culture result now is available and dereck landers is resistant to both of these antibiotics, but it is sensitive to ceftriaxone that she received during this hospitalization as well as sensitive to Levaquin that we will plan to discharge her to o home with. Overall, her condition has improved. Abdominal pain that she had from epigastric regio n has improved. Nausea has improved. She is tolerating diet very well, ambulating well. She is fee ling much better and feels comfortable going home. Medically, she is stable for discharge. Discharge Medications And Instruction: 1.Continue all prior home medications. 2.Do not take antibiotics prescribed to prior to this admission, which is Augmentin and Macrobid. 3.Start Levaquin 500 mg p.o. daily for 5 days. 4.Follow up with my office in 2 weeks. Final Diagnoses: 1.Volume depletion. 2.Hyponatremia. 3.Urinary tract infection. 4.Chronic anticoagulation therapy. 5.Chronic steroid therapy. 6.Chronic obstructive pulmonary disease. 7.Deep vein thrombosis, legs. 8.Pulmonary embolism. 9.Hypertension. 10.Rheumatoid arthritis. 11.Hypothyroidism. 12.Lymphedema, legs. Laboratory Data: Labs done during this hospitalization: Procalcitonin less than 0.05. Initial sodi um 126 with potassium 4.1, chloride 92, bicarb 30, BUN 11, creatinine 0.80, glucose 129. Liver funct ion tests unremarkable. Initial white count 7.1, hemoglobin 12.9, platelets 264. ARNOL/MODL Voice ID: [id number] Report ID: [id number]
== END 2017-12-09 09:35 | disposition home or self-care (01) | DRG 641 ==
LOC: ER 15:35 → ERHOLD 19:42 → 4TH 20:09
PROVIDERS: ADMIT Internal Medicine; ATTEND Internal Medicine
DX: E87.1 Hypo-osmolality and hyponatremia (principal); N39.0 Urinary tract infection, site not specified; E86.9 Volume depletion, unspecified; J44.9 Chronic obstructive pulmonary disease, unspecified; I10 Essential (primary) hypertension; M06.9 Rheumatoid arthritis, unspecified; E03.9 Hypothyroidism, unspecified; Z88.6 Allergy status to analgesic agent; Z88.5 Allergy status to narcotic agent; Z88.8 Allergy status to other drugs, medicaments and biological substances; Z86.718 Personal history of other venous thrombosis and embolism; Z86.711 Personal history of pulmonary embolism; K29.00 Acute gastritis without bleeding; Z79.01 Long term (current) use of anticoagulants; Z79.52 Long term (current) use of systemic steroids; B96.89 Other specified bacterial agents as the cause of diseases classified elsewhere; Z16.39 Resistance to other specified antimicrobial drug
CPT/HCPCS: 36415; 70450; 71046; 72125; 74177; 80048; 80076; 81003; 81015; 82550; 82553; 83605; 83690; 84145; 84484; 85025; 85610; 85730; 86850; 86900; 86901; 87040; 87077; 87086; 87088; 87186; 94760; 96360; 96361; 96372; 97163; 99284; 99285; C9113; J0696; J2001; J2405; J7030; J7512; Q9967

== ENCOUNTER 2017-12-20 04:32 | Observation (INO) | payer OTHER ==
--- OUTSIDE RECORDS SUMMARY | 2017-12-20 04:35 | XMS REPORT | Clinical Summary ---
:1930 Author Organization [facility] Address [address] [place] [address] Care Team Providers Name Role Phone Asked, [...] Hiatal hernia ( Primary RPratima, Dx) after 12/19/2016 Family History Medical History Relation Name Comments [...] Taken Blood Pressure 154/73 04/19/2017 11:52 AM [facility] Pulse 101 04/19/2017 1:00 PM [facility] Temperature 36.7 C (98 F) 04/19/2017 11:52 AM [facility] Respiratory Rate 20 04/19/2017 1:00 PM [facility] Oxygen Saturation 96% 04/19/2017 2:33 PM [facility] Inhaled Oxygen Concentration - - Weight 54.4 kg (120 lb) 04/12/2017 12:01 PM [facility] Height 149.9 cm (4' 11") 04/12/2017 12:01 PM [facility] Body Mass Index 24.24 04/12/2017 12:01 PM [facility] Plan of Treatment Health Maintenance Due Date Last Done Comments SHINGRIX VACCINE (#1) 1981 ZOSTER VACCINE 1991 PNEUMOCOCCAL POLYSACCHARIDE VACCINE AGE 65 AND OVER 1996 PNEUMOCOCCAL-13 1996 INFLUENZA VACCINE 10/12/2017 Implants Implanted Type Area Bindery Helper Device Identifier Expiration Date Model / Serial / Lot Reveal Linq-02/02/2016 Implanted: Qty: 1 on 02/02/2016 Procedures Procedure Name Priority Date/Time Associated Comments Diagnosis US DUPLEX VENOUS Routine 04/19/2017 11:11 Results for this LOWER EXTREMITY AM [facility] procedure are in BILATERAL the results section. ZZESTIMATED GFR Routine 04/19/2017 4:00 Results for this AM [facility] [facility] procedure are in the results section. PHOSPHORUS LEVEL Routine 04/19/2017 4:00 Results for this AM [facility] [facility] procedure are in the results section. MAGNESIUM LEVEL Routine 04/19/2017 4:00 Results for this AM [facility] procedure are in the results section. BASIC METABOLIC PANEL Routine 04/19/2017 4:00 Results for this AM [facility] procedure are in the results section. HC COMPLETE BLD COUNT Routine 04/19/2017 3:45 Results for this W/AUTO DIFF AM [facility] procedure are in the results section. MAGNESIUM LEVEL Routine 04/18/2017 4:00 Results for this AM [facility] procedure are in the results section. ZZESTIMATED GFR Routine 04/18/2017 4:00 Results for this AM [facility] procedure are in the results section. PHOSPHORUS LEVEL Routine 04/18/2017 4:00 Results for this AM [facility] procedure are in the results section. HC COMPLETE BLD COUNT Routine 04/18/2017 4:00 Results for this W/AUTO DIFF AM [facility] procedure are in the results section. BASIC METABOLIC PANEL Routine 04/18/2017 4:00 Results for this AM [facility] procedure are in the results section. XR ABDOMEN 1 VW STAT 04/17/2017 1:00 Results for this PORTABLE PM [facility] procedure are in the results section. ZZESTIMATED GFR Routine 04/17/2017 4:00 Results for this AM [facility] procedure are in the results section. PHOSPHORUS LEVEL Routine 04/17/2017 4:00 Results for this AM [facility] procedure are in the results section. HC COMPLETE BLD COUNT Routine 04/17/2017 4:00 Results for this W/AUTO DIFF AM [facility] procedure are in the results section. BASIC METABOLIC PANEL Routine 04/17/2017 4:00 Results for this AM [facility] procedure are in the results section. XR ABDOMEN 2 VW AP W STAT 04/16/2017 9:23 Results for this UPRIGHT AND/OR AM [facility] procedure are in DECUBITUS the results section. HC COMPLETE BLD COUNT Routine 04/16/2017 4:15 Results for this W/AUTO DIFF AM [facility] procedure are in the results section. ZZESTIMATED GFR Routine 04/16/2017 4:00 Results for this AM [facility] procedure are in the results section. MAGNESIUM LEVEL Routine 04/16/2017 4:00 Results for this AM [facility] procedure are in the results section. PHOSPHORUS LEVEL Routine 04/16/2017 4:00 Results for this AM [facility] procedure are in the results section. BASIC METABOLIC PANEL Routine 04/16/2017 4:00 Results for this AM [facility] procedure are in the results section. XR ABDOMEN 1 VW STAT 04/15/2017 7:50 Results for this PORTABLE AM [facility] procedure are in the results section. ZZESTIMATED GFR Routine 04/15/2017 4:00 Results for this AM [facility] procedure are in the results section. PHOSPHORUS LEVEL Routine 04/15/2017 4:00 Results for this AM [facility] procedure are in the results section. MAGNESIUM LEVEL Routine 04/15/2017 4:00 Results for this AM [facility] procedure are in the results section. HC COMPLETE BLD COUNT Routine 04/15/2017 4:00 Results for this W/AUTO DIFF AM [facility] procedure are in the results section. BASIC METABOLIC PANEL Routine 04/15/2017 4:00 Results for this AM [facility] procedure are in the results section. HC COMPLETE BLD COUNT Routine 04/14/2017 4:10 Results for this W/AUTO DIFF AM [facility] procedure are in the results section. ZZESTIMATED GFR Routine 04/14/2017 4:00 Results for this AM [facility] procedure are in the results section. BASIC METABOLIC PANEL Routine 04/14/2017 4:00 Results for this AM [facility] procedure are in the results section. ECG 12-LEAD STAT 04/13/2017 4:43 Results for this AM [facility] procedure are in the results section. ZZESTIMATED GFR Routine 04/13/2017 3:44 Results for this AM [facility] procedure are in the results section. BASIC METABOLIC PANEL Routine 04/13/2017 3:44 Results for this AM [facility] procedure are in the results section. HC COMPLETE BLD COUNT Routine 04/13/2017 3:00 Results for this W/AUTO DIFF AM [facility] procedure are in the results section. XR CHEST 1 VW STAT 04/12/2017 3:48 Results for this PORTABLE PM [facility] procedure are in the results section. CENTRAL LINE Routine 04/12/2017 2:01 PM [facility] Procedure Note - Madhu Monsivais MD - 04/12/2017 2:00 PM [facility] Central line Performed by: MADHU MONSIVAIS Authorized [...] the procedure well with no immediate complications OR AN ELECTIVE ENDOTRACHEAL AIRWAY Routine 04/12/2017 1:58 PM [facility] Procedure Note - Madhu Monsivais MD - 04/12/2017 1:58 PM [facility] Airway Performed by: MADHU MONSIVAIS Authorized by: [...] HERNIA, 04/12/2017 1:30 PM Hiatal hernia LAPAROSCOPIC [facility] PREPARE FRESH FROZEN Timed 04/12/2017 4:00 AM PLASMA [facility] PREPARE RBC Timed 04/12/2017 4:00 AM [facility] ZZESTIMATED GFR Routine 04/12/2017 4:00 AM Results for this [facility] procedure are in the results section. TYPE AND SCREEN Timed 04/12/2017 4:00 AM Results for this [facility] procedure are in the results section. PARTIAL THROMBOPLASTIN Routine 04/12/2017 4:00 AM Results for this TIME (PTT) [facility] procedure are in the results section. PROTHROMBIN TIME WITH Routine 04/12/2017 4:00 AM Results for this INR [facility] procedure are in the results section. BASIC METABOLIC PANEL Routine 04/12/2017 4:00 AM Results for this [facility] procedure are in the results section. HC COMPLETE BLD COUNT Routine 04/12/2017 4:00 AM Results for this W/AUTO DIFF [facility] procedure are in the results section. XR CHEST 2 VW Routine 04/11/2017 7:49 PM Results for this [facility] procedure are in the results section. VANCOMYCIN LEVEL, TROUGH Timed 04/11/2017 3:00 PM Results for this [facility] procedure are in the results section. GRAM STAIN Routine 04/11/2017 10:00 AM Results for this [facility] procedure are in the results section. SPUTUM CULTURE Routine 04/11/2017 10:00 AM Results for this [facility] procedure are in the results section. ZZESTIMATED GFR Routine 04/11/2017 4:15 AM Results for this [facility] procedure are in the results section. BASIC METABOLIC PANEL Routine 04/11/2017 4:15 AM Results for this [facility] procedure are in the results section. HC COMPLETE BLD COUNT Routine 04/11/2017 4:15 AM Results for this W/AUTO DIFF [facility] procedure are in the results section. ZZESTIMATED GFR Routine 04/10/2017 4:15 AM Results for this [facility] procedure are in the results section. BASIC METABOLIC PANEL Routine 04/10/2017 4:15 AM Results for this [facility] procedure are in the results section. HC COMPLETE BLD COUNT Routine 04/10/2017 4:15 AM Results for this W/AUTO DIFF [facility] procedure are in the results section. ZZESTIMATED GFR Routine 04/09/2017 4:51 AM Results for this [facility] procedure are in the results section. BASIC METABOLIC PANEL Routine 04/09/2017 4:51 AM Results for this [facility] procedure are in the results section. HC COMPLETE BLD COUNT Routine 04/09/2017 4:51 AM Results for this W/AUTO DIFF [facility] procedure are in the results section. CT CHEST WO CONTRAST Routine 04/08/2017 8:17 PM Results for this [facility] procedure are in the results section. RESPIRATORY PATHOGEN Routine 04/08/2017 10:25 AM Results for this PANEL [facility] procedure are in the results section. XR CHEST 2 VW STAT 04/08/2017 9:36 AM Results for this [facility] procedure are in the results section. URINALYSIS SCREEN AND Routine 04/08/2017 8:33 AM Results for this MICROSCOPY, WITH REFLEX [facility] procedure are in TO CULTURE the results section. URINE CULTURE Routine 04/08/2017 8:33 AM Results for this [facility] procedure are in the results section. BLOOD CULTURE, AEROBIC & Routine 04/08/2017 8:18 AM Results for this ANAEROBIC [facility] procedure are in the results section. BLOOD CULTURE, AEROBIC & Routine 04/08/2017 8:16 AM Results for this ANAEROBIC [facility] procedure are in the results section. ZZESTIMATED GFR Routine 04/08/2017 8:00 AM Results for this [facility] procedure are in the results section. COMPREHENSIVE METABOLIC Routine 04/08/2017 8:00 AM Results for this PANEL [facility] procedure are in the results section. HC COMPLETE BLD COUNT Routine 04/08/2017 8:00 AM Results for this W/AUTO DIFF [facility] procedure are in the results section. HC COMPLETE BLD COUNT Routine 04/07/2017 5:00 AM Results for this W/AUTO DIFF [facility] procedure are in the results section. ZZESTIMATED GFR Routine 04/07/2017 4:00 AM Results for this [facility] procedure are in the results section. BASIC METABOLIC PANEL Routine 04/07/2017 4:00 AM Results for this [facility] procedure are in the results section. CLOSTRIDIUM DIFFICILE Routine 04/06/2017 1:15 PM Results for this TOXIN [facility] procedure are in the results section. HC COMPLETE BLD COUNT Routine 04/06/2017 5:15 AM Results for this W/AUTO DIFF [facility] procedure are in the results section. ZZESTIMATED GFR Routine 04/06/2017 4:00 AM Results for this [facility] procedure are in the results section. BASIC METABOLIC PANEL Routine 04/06/2017 4:00 AM Results for this [facility] procedure are in the results section. HC COMPLETE BLD COUNT Routine 04/05/2017 5:45 AM Results for this W/AUTO DIFF [facility] procedure are in the results section. ZZESTIMATED GFR Routine 04/05/2017 4:00 AM Results for this [facility] procedure are in the results section. BASIC METABOLIC PANEL Routine 04/05/2017 4:00 AM Results for this [facility] procedure are in the results section. HC COMPLETE BLD COUNT Routine 04/04/2017 4:48 AM Results for this W/AUTO DIFF [facility] procedure are in the results section. ZZESTIMATED GFR Routine 04/04/2017 4:00 AM Results for this [facility] procedure are in the results section. BASIC METABOLIC PANEL Routine 04/04/2017 4:00 AM Results for this [facility] procedure are in the results section. HC COMPLETE BLD COUNT Routine 04/03/2017 5:23 AM Results for this W/AUTO DIFF [facility] procedure are in the results section. ZZESTIMATED GFR Routine 04/03/2017 4:00 AM Results for this [facility] procedure are in the results section. HEPATIC FUNCTION PANEL Routine 04/03/2017 4:00 AM Results for this [facility] procedure are in the results section. C-REACTIVE PROTEIN Routine 04/03/2017 4:00 AM Results for this [facility] procedure are in the results section. PREALBUMIN LEVEL Routine 04/03/2017 4:00 AM Results for this [facility] procedure are in the results section. BASIC METABOLIC PANEL Routine 04/03/2017 4:00 AM Results for this [facility] procedure are in the results section. NM MYOCARDIAL PERFUSION Routine 04/02/2017 9:47 AM Results for this STRESS ONLY [facility] procedure are in the results section. CV STRESS TEST NUCLEAR Routine 04/02/2017 9:47 AM Results for this CARDIO [facility] procedure are in the results section. ECG 12-LEAD STAT 04/02/2017 6:09 AM Results for this [facility] procedure are in the results section. ZZESTIMATED GFR Routine 04/02/2017 5:30 AM Results for this [facility] procedure are in the results section. ALPHA-1 ANTITRYPSIN Routine 04/02/2017 5:30 AM Results for this LEVEL [facility] procedure are in the results section. BASIC METABOLIC PANEL Routine 04/02/2017 5:30 AM Results for this [facility] procedure are in the results section. HC COMPLETE BLD COUNT Routine 04/02/2017 5:30 AM Results for this W/AUTO DIFF [facility] procedure are in the results section. ECHOCARDIOGRAM 2D Routine 04/01/2017 4:35 PM Results for this COMPLETE W MMODE [facility] procedure are in SPECTRAL COLOR DOPPLER the results (03136) section. US CAROTID DUPLEX Routine 04/01/2017 4:08 PM Results for this BILATERAL [facility] procedure are in the results section. XR CHEST 2 VW Routine 04/01/2017 9:42 AM Results for this [facility] procedure are in the results section. ZZESTIMATED GFR Routine 03/31/2017 11:58 PM Results for this [facility] procedure are in the results section. COMPREHENSIVE METABOLIC Routine 03/31/2017 11:58 PM Results for this PANEL [facility] procedure are in the results section. PARTIAL THROMBOPLASTIN Routine 03/31/2017 11:58 PM Results for this TIME (PTT) [facility] procedure are in the results section. PROTHROMBIN TIME WITH Routine 03/31/2017 11:58 PM Results for this INR [facility] procedure are in the results section. HC COMPLETE BLD COUNT Routine 03/31/2017 11:58 PM Results for this W/AUTO DIFF [facility] procedure are in the results section. CT HEAD EXTERNAL STUDY Routine 03/25/2017 5:50 PM Results for this [facility] procedure are in the results section. CT ABD/PELVIC EXTERNAL Routine 03/24/2017 3:30 PM Results for this STUDY [facility] procedure are in the results section. after 12/19/2016 Results Pv duplex venous lower extremity (04/19/2017 11:11 AM) Narrative Performed At [facility] Vascular Ultrasound Laboratory Lower Extremity Venous Report [address] [place] [address] Pat.Name:ELVA JENKINS Pat.ID:[id number] .Date: 04/19/2017Refer.MD:AMBROSIO OG MD Exam Time: 10:32:00 AM Study Type:LE Venous Height:59inWeight: 120lb BSA: 1.49 m2 DOBAge:1930,86Y Sex: FEMALESonogrphr: Eliel Ghotra RN, RVS Pat. Stat.:OutpatientTapeVol: PM, CPT - 4: 50249 Echo Event ID:[id number] Order ID:[id number] Reason for Study:Bilateral leg edema. Race:C SUMMARY: [...] Radiology Results In - 04/19/2017 12:56 PM [facility] Vascular Ultrasound Laboratory Lower Extremity Venous Report [address]Name: ELVA JENKINS Pat.ID: [id number] .Date: 04/19/2017 Refer.MD: MABROSIO OG MD Exam Time: 10:32:00 AM Study Type:LE Venous Height: 59in Weight: 120lb BSA: 1.49 m2 Age: 2 1930,86Y Sex: FEMALE Sonogrphr: Eliel Ghotra, RN, RVS Pat. Stat.:Outpatient Tape Vol: PM, [facility] - 4: 51976 Echo Event ID:[id number] Order ID: [id number] Reason for Study:Bilateral leg edema. Race: C [...] PM Tucker Kc MD Performing Organization Address City/[facility]/Zipcode Phone Number [facility] [address] [place] [address] Estimated GFR (04/19/2017 4:00 AM)Only the most recent of19 resultswithin the time period is included. GFR Non Af Amer 79 mL/min/1.73 m2 [facility] DEPARTMENT OF PATHOLOGY AND GENOMIC MEDICINE GFR Af Amer >90 mL/min/1.73 m2 [facility] DEPARTMENT OF Comment: PATHOLOGY AND GENOMIC [...] Americans. Specimen Plasma specimen Performing Organization Address City/[facility]/Zipcode Phone Number [facility] DEPARTMENT OF PATHOLOGY AND [address] [place] [address] [facility] Phosphorus level (04/19/2017 4:00 AM)Only the most recent of5 resultswithin the time period is included. Phosphorus 2.6 2.4 - 4.5 mg/dL [facility] DEPARTMENT OF PATHOLOGY AND GENOMIC MEDICINE Specimen Plasma specimen Performing Organization Address [facility] Phone Number [facility] DEPARTMENT PATHOLOGY AND [address] [place] [address] Magnesium level (04/19/2017 4:00 AM)Only the most recent of4 resultswithin the time period is included. Magnesium 1.6 1.6 - 2.4 mg/dL [facility] DEPARTMENT OF PATHOLOGY AND GENOMIC MEDICINE Specimen Plasma specimen Performing Organization Address [facility] Phone Number [facility] DEPARTMENT OF PATHOLOGY AND [address] [place] [address] Basic metabolic panel (04/19/2017 4:00 AM)Only the most recent of17 resultswithin the time period is included. Sodium 141 135 - 148 mEq/L [facility] DEPARTMENT OF PATHOLOGY AND GENOMIC MEDICINE Potassium 3.4 (L) 3.5 - 5.0 mEq/L [facility] DEPARTMENT OF PATHOLOGY AND GENOMIC MEDICINE Chloride 100 98 - 112 mEq/L [facility] DEPARTMENT OF PATHOLOGY AND GENOMIC MEDICINE CO2 30 24 - 31 mEq/L [facility] DEPARTMENT OF PATHOLOGY AND GENOMIC MEDICINE Anion gap 11 7 - 15 mEq/L [facility] DEPARTMENT OF PATHOLOGY Comment: AND [facility] Starting from June , anion gap calculation no longer incorporates potassium. Please note the change. BUN 7 (L) 8 - 23 mg/dL [facility] DEPARTMENT OF PATHOLOGY AND GENOMIC MEDICINE Creatinine 0.7 0.5 - 0.9 mg/dL [facility] DEPARTMENT OF PATHOLOGY AND GENOMIC MEDICINE Glucose 117 (H) 65 - 99 mg/dL [facility] DEPARTMENT OF PATHOLOGY AND GENOMIC MEDICINE Calcium 8.2 (L) 8.8 - 10.2 mg/dL [facility] DEPARTMENT OF PATHOLOGY AND GENOMIC MEDICINE Specimen Plasma specimen Performing Organization Address [facility] Phone Number [facility] DEPARTMENT OF PATHOLOGY AND [address] [place] [address] CBC with platelet and differential (04/19/2017 3:45 AM)Only the most recent of19 resultswithin the time period is included. WBC 10.26 4.50 - 11.00 k/uL [facility] DEPARTMENT OF PATHOLOGY AND GENOMIC MEDICINE RBC 2.89 (L) 4.20 - 5.50 m/uL [facility] DEPARTMENT OF PATHOLOGY AND GENOMIC MEDICINE HGB 9.0 (L) 12.0 - 16.0 g/dL [facility] DEPARTMENT OF PATHOLOGY AND GENOMIC MEDICINE HCT 27.2 (L) 37.0 - 47.0 % [facility] DEPARTMENT OF PATHOLOGY AND GENOMIC MEDICINE MCV 94.1 82.0 - 100.0 fL [facility] DEPARTMENT OF PATHOLOGY AND GENOMIC MEDICINE MCH 31.1 27.0 - 34.0 pg [facility] DEPARTMENT OF PATHOLOGY AND GENOMIC MEDICINE MCHC 33.1 31.0 - 37.0 g/dL [facility] DEPARTMENT OF PATHOLOGY AND GENOMIC MEDICINE RDW - SD 48.7 37.0 - 55.0 fL [facility] DEPARTMENT OF PATHOLOGY AND GENOMIC MEDICINE MPV 9.1 8.8 - 13.2 fL [facility] DEPARTMENT OF PATHOLOGY AND GENOMIC MEDICINE Platelet count 305 150 - 400 k/uL [facility] DEPARTMENT OF PATHOLOGY AND GENOMIC MEDICINE Nucleated RBC 0.00 /100 WBC [facility] DEPARTMENT OF PATHOLOGY AND GENOMIC MEDICINE Neutrophils 65.7 39.0 - 69.0 % [facility] DEPARTMENT OF PATHOLOGY AND GENOMIC MEDICINE Lymphocytes 26.3 25.0 - 45.0 % [facility] DEPARTMENT OF PATHOLOGY AND GENOMIC MEDICINE Monocytes 5.9 0.0 - 10.0 % [facility] DEPARTMENT OF PATHOLOGY AND GENOMIC MEDICINE Eosinophils 1.3 0.0 - 5.0 % [facility] DEPARTMENT OF PATHOLOGY AND GENOMIC MEDICINE Basophils 0.3 0.0 - 1.0 % [facility] DEPARTMENT OF PATHOLOGY AND GENOMIC MEDICINE Immature granulocytes 0.5Comment: 0.0 - 1.0 % [facility] DEPARTMENT OF "Immature PATHOLOGY AND GENOMIC granulocytes" MEDICINE (promyelocytes, myelocytes, metamyelocytes) Specimen Blood Performing Organization Address City/State/Zipcode Phone Number [facility] DEPARTMENT OF PATHOLOGY AND [address] [place] [address] [employer] [facility] XR Abdomen 1 Vw Portable (04/17/2017 [...] noted. Midline skin digna are also present. [facility]-[id number] Procedure Note Hm Interface, Radiology Results Incoming - 04/17/2017 1:07 PM [facility] EXAMINATION: XR ABDOMEN 1 VW PORTABLE CLINICAL HISTORY: Distention COMPARISON: April 16, 2017 IMPRESSION: Diffuse bowel distention, most pronounced in the right colon, is without significant change. The cecum measures approximately 7.5 cm. This is suggestive of ileus. Left femoral line is again noted. Midline skin digna are also present. [facility]-[id number] Performing Organization Address [facility] Phone Number [facility] [address] [place] [address] XR Abdomen 2 Vw Ap W Upright [...] base with a tiny left pleural effusion. [facility]-[id number] Procedure Note [facility], Radiology Results Incoming - 04/16/2017 9:31 AM [facility] [facility] EXAMINATION: XR ABDOMEN 2 VW AP W [...] base with a tiny left pleural effusion. [facility]-[id number] Performing Organization Address [facility]/Zipcode Phone Number [facility] [address] [place] [address] ECG 12 lead (04/13/2017 4:43 AM)Only the most recent of2 resultswithin the time period is included. Ventricular rate 112 [facility] Atrial rate 112 [facility] OR interval 122 [facility] QRSD interval 72 [facility] QT interval 330 [facility] QTC interval 450 [facility] P axis 1 55 [facility] QRS axis 1 21 [facility] T wave axis 40 [facility] MUSE EKG impression Sinus tachycardia-Otherwise normal ECG-In [facility] MUSE automated comparison with ECG of 02-APR-2017 06:09,-No significant change was found- Performing Organization Address [facility] [facility] Phone Number [facility] MUSE [address] [place] [address] XR Chest 1 Vw Portable (04/12/2017 3:48 PM) Narrative Performed At Examination:XR CHEST 1 VW PORTABLE RADIANT Clinical history:"Attempted central line placements" Comparison:None IMPRESSION: Lungs are clear. Heart size is within normal limits. Bones are osteopenic. Left cervical calcifications are seen. [id number] Procedure Note Interface, Radiology Results Incoming - 04/12/2017 4:14 PM [employer] Examination: XR CHEST 1 VW PORTABLE Clinical history: "Attempted central line placements" Comparison: None IMPRESSION: Lungs are clear. Heart size is within normal limits. Bones are osteopenic. Left cervical calcifications are seen. [id number] Performing Organization Address [facility] Phone Number RADIANT [address] [place] [address] Partial thromboplastin time, activated (04/12/2017 4:00 AM)Only the most recent of2 resultswithin the time period is included. PTT 25.6 23.0 - 36.0 sec [facility] DEPARTMENT OF PATHOLOGY Comment: AND Zipdial PTT therapeutic range for unfractionated heparin is 61.0-112.0 seconds which corresponds to Anti-Xa 0.3-0.7 U/ml. Specimen Blood Performing Organization Address [facility] Phone Number [facility] DEPARTMENT OF PATHOLOGY AND [address] [place] [address] Zipdial Prothrombin time with INR (04/12/2017 4:00 AM)Only the most recent of2 resultswithin the time period is included. Prothrombin time 13.2 12.0 - 15.0 sec [facility] DEPARTMENT OF PATHOLOGY AND GENOMIC MEDICINE INR 1.0 [facility] DEPARTMENT OF Comment: PATHOLOGY AND GENOMIC The International Normalized Ratio (INR) is a therapeutic MEDICINE monitoring tool for patients who are stable on oral anticoagulant therapy. An INR of 2.0-3.0 is suggested for deep vein thrombosis/pulmonary embolism. Specimen Blood Performing Organization Address City/State/Zipcode Phone Number [facility] DEPARTMENT OF PATHOLOGY AND [address] [place] [phone] GENOMIC MEDICINE Type and screen (04/12/2017 4:00 AM) ABO grouping A [facility] DEPARTMENT OF PATHOLOGY AND GENOMIC MEDICINE Rh type POS [facility] DEPARTMENT OF PATHOLOGY AND GENOMIC MEDICINE Antibody screen (gel) NEG [facility] DEPARTMENT OF PATHOLOGY AND GENOMIC MEDICINE Specimen Blood Performing Organization Address [facility] Phone Number [facility] DEPARTMENT OF PATHOLOGY AND [address] [place], [place] [phone] GENOMIC MEDICINE XR Chest 2 Vw (04/11/2017 [...] lower lobe parenchymal infiltrates. No pleural effusion. [facility]-[id number] Procedure Note Interface, Radiology Results Incoming - 04/11/2017 8:47 PM [employer] Examination: Chest 2 views CLINICAL HISTORY: COPD Emphysema COMPARISON: None. FINDINGS: The heart is not enlarged. There is a large retrocardiac hiatal hernia. IMPRESSION: . There is better aeration of both lungs when compared to a recent CT scan from 04/08/2017 with a most complete resolution of right lower lobe parenchymal infiltrates. No pleural effusion. [facility]-[id number] Performing Organization Address City/[facility]/Zipcode Phone Number [facility] [address] [place] [address] Vancomycin level, trough (04/11/2017 3:00 PM) Vancomycin, trough 7.1 (L) 10.0 - 20.0 ug/mL [facility] DEPARTMENT OF Comment: PATHOLOGY AND GENOMIC Therapeutic Ranges: MEDICINE Peak 30.0 - 40.0 ug/mL Xyotun73.0 - 20.0 ug/mL Specimen Serum Performing Organization Address City/[facility] Phone Number [facility] DEPARTMENT OF PATHOLOGY AND [address] [place] [address] Sputum culture (04/11/2017 10:00 AM) Sputum culture isolate No normal oral jamal isolated. (A) [facility] DEPARTMENT OF Comment: PATHOLOGY AND GENOMIC Specimen Information MEDICINE Specimen Source: Sputum Specimen Site: Expectorated Sputum culture isolate Amber albicans [facility] DEPARTMENT OF Occasional PATHOLOGY AND GENOMIC [...] Specimen Sputum - Expectorated Performing Organization Address [facility] Phone Number [facility] DEPARTMENT OF PATHOLOGY AND [address] [place] [address] Gram stain (04/11/2017 10:00 AM) Gram stain isolate No WBC's [facility] DEPARTMENT OF PATHOLOGY Few epithelial cells AND GENOMIC MEDICINE No organisms seen Comment: Specimen Information Specimen Source: Sputum Specimen Site: Expectorated Specimen Sputum - Expectorated Performing Organization Address City/[facility] Phone Number [facility] DEPARTMENT OF PATHOLOGY AND [address] [place] [phone] [place] [address] CT Chest Wo Contrast (04/08/2017 8:17 PM) [...] irregular nodules most compatible with inflammatory change. [facility]-[id number] Procedure Note Interface, Radiology Results Incoming - 04/08/2017 8:27 PM [employer]ENT EXAMINATION: CT CHEST WO CONTRAST CLINICAL HISTORY: [...] irregular nodules most compatible with inflammatory change. [facility]-[id number] Performing Organization Address City/State/Zipcode Phone Number [facility] [address] [place] [address] Respiratory pathogen panel (04/08/2017 10:25 AM) Respiratory pathogen Negative for all pathogens tested: [facility] DEPARTMENT OF panel Negative for Adenovirus [...] Nares - Not specified Performing Organization Address [facility] Phone Number [facility] DEPARTMENT OF PATHOLOGY [address] [address] [employer] [facility] Urinalysis screen and microscopy, with reflex to culture (04/08/2017 8:33 AM) Specimen site Random void [facility] DEPARTMENT OF PATHOLOGY AND GENOMIC MEDICINE Color, UA Dark Yellow [facility] DEPARTMENT OF PATHOLOGY AND GENOMIC MEDICINE Appearance, UA Clear [facility] DEPARTMENT OF PATHOLOGY AND GENOMIC MEDICINE Specific gravity, UA 1.016 1.001 - 1.035 [facility] DEPARTMENT OF PATHOLOGY AND GENOMIC MEDICINE pH, UA 7.0 5.0 - 8.5 [facility] DEPARTMENT OF PATHOLOGY AND GENOMIC MEDICINE Protein, UA Negative Negative [facility] DEPARTMENT OF PATHOLOGY AND GENOMIC MEDICINE Glucose, UA Negative Negative [facility] DEPARTMENT OF PATHOLOGY AND GENOMIC MEDICINE Ketones, UA Negative Negative [facility] DEPARTMENT OF PATHOLOGY AND GENOMIC MEDICINE Bilirubin, UA Negative Negative [facility] DEPARTMENT OF PATHOLOGY AND GENOMIC MEDICINE Blood, UA Negative Negative [facility] DEPARTMENT OF PATHOLOGY AND GENOMIC MEDICINE Nitrite, UA Negative Negative [facility] DEPARTMENT OF PATHOLOGY AND GENOMIC MEDICINE Urobilinogen, UA 2.0 (A) <2.0 [facility] DEPARTMENT OF PATHOLOGY AND GENOMIC MEDICINE Leukocyte esterase, UA Negative Negative [facility] DEPARTMENT OF PATHOLOGY AND GENOMIC MEDICINE Epithelial cells, UA 1 /HPF [facility] DEPARTMENT OF PATHOLOGY AND GENOMIC MEDICINE WBC, UA 1 0 - 4 /HPF [facility] DEPARTMENT OF PATHOLOGY AND GENOMIC MEDICINE RBC, UA 3 (H) 0 - 2 /HPF [facility] DEPARTMENT OF PATHOLOGY AND GENOMIC MEDICINE Bacteria, UA Few None seen [facility] DEPARTMENT OF PATHOLOGY AND GENOMIC MEDICINE Yeast, UA None seen [facility] DEPARTMENT OF PATHOLOGY AND GENOMIC MEDICINE Yeast with pseudohyphae, UA None seen [facility] DEPARTMENT OF PATHOLOGY [facility] GENOMIC MEDICINE Specimen Urine Performing Organization Address City/[facility] Phone Number [facility] DEPARTMENT OF PATHOLOGY AND [address] [place] [phone] [facility] Urine culture (04/08/2017 8:33 AM) Urine culture SEE COMMENTComment: Bacteriuria [facility] DEPARTMENT OF PATHOLOGY screen negative. AND GENOMIC MEDICINE Performing Organization Address City/[facility] Phone Number [facility] DEPARTMENT OF PATHOLOGY AND [address] [place] [address] [facility] MEDICINE Blood culture, aerobic & anaerobic (04/08/2017 8:18 AM)Only the most recent of2 resultswithin the time period is included. Blood culture isolate No growth after 5 days of incubation. [facility] DEPARTMENT OF Comment: PATHOLOGY AND GENOMIC Specimen Information MEDICINE Specimen Source: Blood Specimen Site: Hand, right Specimen Blood - Hand, right Performing Organization Address City/[facility]/Zipcode Phone Number [facility] DEPARTMENT OF PATHOLOGY AND [address] [place] [address] [facility] Comprehensive metabolic panel (04/08/2017 8:00 AM)Only the most recent of2 resultswithin the time period is included. Sodium 138 135 - 148 mEq/L [facility] DEPARTMENT OF PATHOLOGY AND GENOMIC MEDICINE Potassium 3.7 3.5 - 5.0 mEq/L [facility] DEPARTMENT OF PATHOLOGY AND GENOMIC MEDICINE Chloride 99 98 - 112 mEq/L [facility] DEPARTMENT OF PATHOLOGY AND GENOMIC MEDICINE CO2 28 24 - 31 mEq/L [facility] DEPARTMENT OF PATHOLOGY AND GENOMIC MEDICINE Anion gap 11 7 - 15 mEq/L [facility] DEPARTMENT OF Comment: PATHOLOGY AND GENOMIC Starting from June , anion gap calculation MEDICINE no longer incorporates potassium. Please note the change. BUN 12 8 - 23 mg/dL [facility] DEPARTMENT OF PATHOLOGY AND GENOMIC MEDICINE Creatinine 0.6 0.5 - 0.9 mg/dL [facility] DEPARTMENT OF PATHOLOGY AND GENOMIC MEDICINE Glucose 107 (H) 65 - 99 mg/dL [facility] DEPARTMENT OF PATHOLOGY AND GENOMIC MEDICINE Calcium 8.7 (L) 8.8 - 10.2 mg/dL [facility] DEPARTMENT OF PATHOLOGY AND GENOMIC MEDICINE Protein 5.8 (L) 6.3 - 8.3 g/dL [facility] DEPARTMENT OF Comment: PATHOLOGY AND GENOMIC 4.6-7.0 g/dL MEDICINE 1 week 4.4-7.6 g/dL 7 months-1year5.1-7.3 g/dL 1-2 years5.6-7.5 g/dL >3 years6.0-8.0 g/dL 18-150 6.3-8.3 g/dL Albumin 2.6 (L) 3.5 - 5.0 g/dL [facility] DEPARTMENT OF PATHOLOGY AND GENOMIC MEDICINE A/G ratio 0.8 0.7 - 3.8 [facility] DEPARTMENT OF PATHOLOGY AND GENOMIC MEDICINE Alkaline phosphatase 40 35 - 104 U/L [facility] DEPARTMENT OF PATHOLOGY AND GENOMIC MEDICINE AST 18 10 - 35 U/L [facility] DEPARTMENT OF PATHOLOGY AND GENOMIC MEDICINE ALT 17 5 - 50 U/L [facility] DEPARTMENT OF PATHOLOGY AND GENOMIC MEDICINE Total bilirubin 1.0 0.0 - 1.2 mg/dL [facility] DEPARTMENT OF PATHOLOGY AND GENOMIC MEDICINE Specimen Plasma specimen Performing Organization Address [facility] Phone Number [facility] DEPARTMENT OF PATHOLOGY AND [address] [place] [address] MEDICINE C difficile toxin (04/06/2017 1:15 PM) Clostridium difficile No Clostridium difficle toxin present [facility] DEPARTMENT OF toxin Comment: PATHOLOGY AND GENOMIC Specimen Information MEDICINE Specimen Source: Stool Specimen Site: Nonpreserved Specimen Stool - Nonpreserved Performing Organization Address [facility] Phone Number [facility] DEPARTMENT OF PATHOLOGY AND [address] [place] [address] C-reactive protein (04/03/2017 4:00 AM) CRP <0.30 0.00 - 0.50 mg/dL [facility] DEPARTMENT OF PATHOLOGY AND GENOMIC MEDICINE Specimen Plasma specimen Performing Organization Address [facility] Phone Number [facility] DEPARTMENT OF PATHOLOGY AND [address] [place] [address] Prealbumin level (04/03/2017 4:00 AM) Prealbumin 23 16 - 32 mg/dL [facility] DEPARTMENT OF PATHOLOGY AND GENOMIC MEDICINE Specimen Serum Performing Organization Address [facility] Phone Number [facility] DEPARTMENT OF PATHOLOGY AND [address] [place] [address] Hepatic function panel (04/03/2017 4:00 AM) Albumin 2.7 (L) 3.5 - 5.0 g/dL [facility] DEPARTMENT OF PATHOLOGY AND GENOMIC MEDICINE Total bilirubin 0.6 0.0 - 1.2 mg/dL [facility] DEPARTMENT OF PATHOLOGY AND GENOMIC MEDICINE Bilirubin direct <0.2 0.0 - 0.3 mg/dL [facility] DEPARTMENT OF PATHOLOGY AND GENOMIC MEDICINE Alkaline phosphatase 39 35 - 104 U/L [facility] DEPARTMENT OF PATHOLOGY AND GENOMIC MEDICINE Protein 5.4 (L) 6.3 - 8.3 g/dL [facility] DEPARTMENT OF Comment: PATHOLOGY AND GENOMIC 4.6-7.0 g/dL MEDICINE 1 week 4.4-7.6 g/dL 7 months-1year5.1-7.3 g/dL 1-2 years5.6-7.5 g/dL >3 years6.0-8.0 g/dL 18-150 6.3-8.3 g/dL ALT 20 5 - 50 U/L [facility] DEPARTMENT OF PATHOLOGY AND GENOMIC MEDICINE AST 18 10 - 35 U/L [facility] DEPARTMENT OF PATHOLOGY AND [facility] Specimen Plasma specimen Performing Organization Address [facility] Phone Number [facility] DEPARTMENT OF PATHOLOGY AND [address] [place], [place] [phone] [facility] CV stress test (04/02/2017 9:47 AM) Resting HR 89 [facility] MUSE Resting BP 134 [facility] MUSE Peak MET Achieved 1.0 [facility] MUSE Protocol Name REGHEMANTH [facility] MUSE Time in Exercise Phase 00:01:00 [facility] MUSE Max Systolic BP 134 [facility] MUSE Max Diastolic BP 60 [facility] MUSE Max Heart Rate 113 [facility] MUSE Max Predicted Heart Rate 135 [facility] MUSE Target HR Formula (220 - Age)*100% [facility] MUSE Test Indication chest pain [facility] MUSE Arrhy During Ex [facility] MUSE ECG Interp Before EX [facility] MUSE ECG Interp During Ex [facility] MUSE Ex Summary Comment [facility] MUSE Overall HR Response to [facility] MUSE Exercise Overall BP Response To [facility] MUSE Exercise Reason for Termination [facility] MUSE Stress Test Impression -Waveform interpreted in report [facility] MUSE associated with image study. No interpretation is provided as part of this Stress ECG report.-Electronically Signed By Liberty PALOMARES, Eduard ([id number]), greeting card editor Esa Munoz ([id number]) on 04/03/2017 1:32:55 PM Performing Organization Address [facility] Phone Number [facility] MUSE [address] [place] [address] Nm myocardial perfusion (04/02/2017 9:47 AM) Narrative Performed At [facility] Nuclear Cardiology and Cardiac CT [address] [address] Myocardial Perfusion Imaging Report Stress ECG tracings are available in MUSE, EPIC and CV Web All ECG interpretations are included in this report Pat.Name:ELVA JENKINS Pat.ID:[id number] .Date: 04/02/2017 Refer.MD:KEVIN ANDRE MD Exam Time: 8:46:00 AM Study Type:Myocardial Perfusion Imaging Height:59inWeight: 119lb BSA: 1.48 m2 DOBAge:1930,86Y Sex: FEMALEBP:134/60 HR:89 bpm Nuclear Tech:Mesfin Gifford [facility], [facility], [place]/CASIE NajeraMT Pat. Stat.:Inpatient Room:[facility] Nuclear Event ID:[id number] Order ID:[id number] Reason for Study:Pre-op evaluation, intermediate/high risk patient [...] Radiology Results In - 04/02/2017 11:24 AM [facility] Nuclear Cardiology and Cardiac CT [address] [place] [address] Myocardial Perfusion Imaging Report Stress ECG tracings are available in [employer], [employer] and [employer] All ECG interpretations are included in this report Pat.Name: ELVA JENKINS Pat.ID: [id number] .Date: 04/02/2017 Refer.MD: KEVIN ANDRE MD Exam Time: 8:46:00 AM Study Type:Myocardial Perfusion Imaging Height: 59in Weight: 119lb BSA: 1.48 m2 Age: 2 1930,86Y Sex: FEMALE BP: 134/60 HR: 89 bpm Nuclear Tech:CARRIE Carpenter, [facility]/CARRIE Najera Pat. Stat.:Inpatient Room: A748 Nuclear Event ID:[id number] Order ID: [id number] Reason for Study:Pre-op evaluation, intermediate/high risk patient [...] Organization Address City/State/Zipcode Phone Number [facility] [address] [place] [address] Alpha-1 antitrypsin level (04/02/2017 5:30 AM) Alpha-1 antitrypsin 136 90 - 200 mg/dL [facility] DEPARTMENT OF PATHOLOGY AND GENOMIC MEDICINE Specimen Plasma specimen Performing Organization Address City/State/Zipcode Phone Number [facility] DEPARTMENT OF PATHOLOGY AND [address] [place] [address] GENOMIC MEDICINE Echocardiogram complete w contrast and 3D if needed (04/01/2017 4:35 PM) Narrative Performed At [facility] E[facility]ocardiography Report [address] [facility] [address], [place] [phone] Pat.Name:ELVA JENKINS Pat.ID:[id number] .Date: 04/01/2017 Refer.MD:KEVIN ANDRE MD Exam Time: 1:15:00 PMStudy Type:Routine Echo Height:59inWeight: 119lb BSA: 1.48 m2 DOBAge:1930,86Y Sex: FEMALEBP:140/66 HR:84 bpm Sonogrphr: Lindsay Edwards RDCS; Debra Darden Stat.:Inpatient Room:[address] Study Status:Final Echo Event ID:[id number] Order ID:[id number] Reason for Study:Etiology - Symptoms or conditions [...] RAPof 5 mmHg. MEASUREMENTS: 2D Parasternal Long [place] LVOT 1.8 cmLA Ds3.5 cm LVIDd3.4 cmIndex2.3 cm/m Ao An1.9 cm LVIDs1.9 cmAo Rtd 3.3 cm Index2.2 cm/m LV%fs 44.1 % LV Whrf848.6 g(87-129) IVSd 1.5 cmLVM Index 99.7 g/m2 LVPWd1.1 cmRWT0.6 DOPPLER LVOT For Flow LVOT Area2.5 cm2 LVOT SV 66.1 ml PXOHbhLru306.3 cm/sHR86.5 bpm LVOTpkPG 7.6 mmHgLVOT CO5.7 l/min LVOTmnPG 4 mmHgLVOT CI3.9 l/m/m2 LVOT TVI26 cm Signed 04/01/2017 11:24 PM Sheila Gage MD Procedure Note Interface, Radiology Results In - 04/01/2017 11:24 PM [employer] Echocardiography Report [address] [place] [address], [place] [address] Pat.Name: JENKINSELVA Gabi.ID: [id number] .Date: 04/01/2017 Refer.MD: KEVIN ANDRE MD Exam Time: 1:15:00 PM Study Type:Routine Echo Height: 59in Weight: 119lb BSA: 1.48 m2 Age: 2 1930,86Y Sex: FEMALE BP: 140/66 HR: 84 bpm Sonogrphr: Lindsay Edwards RDCS; Debra Darden Stat.:Inpatient Room: [address] Study Status:Final Echo Event ID:[id number] Order ID: [id number] Reason for Study:Etiology - Symptoms or conditions [...] of 5 mmHg. MEASUREMENTS: 2D Parasternal Long [place] LVOT 1.8 cm LA Ds 3.5 cm [...] MD Performing Organization Address City/State/Zipcode Phone Number [facility] [address] [place] [phone] Pv carotid duplex (04/01/2017 4:08 PM) Narrative Performed At [facility] Vascular Ultrasound Laboratory Carotid Artery Duplex Report [address] [facility] [address] [phone] For quality rep purposes, the categorization of the degree of the stenosis of this exam is based on criteria described in the IAC carotid stenosis grading white paper( www.intersocietal.org/Vascular) and Reyes Avery., Denny Oliveira., et al. Carotid artery stenosis: campbell-scale and Doppler US diagnosis--Society of Radiologists in Ultrasound Consensus Conference. Radiology. 2003 Nov; 229(2):340-6. Pat.Name:ELVA JENKINS Pat.ID:[id number] .Date: 04/01/2017 Exam Time: 2:54:00 PM Study Type:Carotid DOBAge:1930,86Y Sex: FEMALESonogrphr: Levi Nielsen, RVT, [facility] Pat. Stat.:Inpatient Room:[address] TapeVol: HARDIK, CPT - 4: [address] Echo Event ID:[id number] Order ID:[id number] Reason for Study:Preop. PMH of HTN, COPD, [...] EDV24.3 cm/s Right ICA Mid ICA Mid [id number] cm/[place] Mid EDV 32.1 cm/s Right ICA [...] Radiology Results In - 04/01/2017 4:11 PM [facility] Vascular Ultrasound Laboratory Carotid Artery Duplex Report [address] [place] [address] For quality rep purposes, the categorization of the degree of the stenosis of this exam is based on criteria described in the IAC carotid stenosis grading white paper( www.intersocietal.org/Vascular) and Reyes Avery., Denny Oliveira., et al. Carotid artery stenosis: campbell-scale and Doppler US diagnosis--Society of Radiologists in Ultrasound Consensus Conference. Radiology. 2003 Nov; 229(2):340-6. Pat.Name: ELVA JENKINS Pat.ID: [id number] .Date: 04/01/2017 Exam Time: 2:54:00 PM Study Type:Carotid Age: 2 1930,86Y Sex: FEMALE Sonogrphr: Levi Nielsen RVT, [place] Pat. Stat.:Inpatient Room: [address] Tape Vol: HARDIK, CPT - 4: 17146 Echo Event ID:[id number] Order ID: [id number] Reason for Study:Preop. PMH of HTN, COPD, [...] PM Tucker Kc MD Performing Organization Address [facility] Phone Number [facility] [address] [place] [address] CT Head External Study (03/25/2017 5:50 PM) Narrative Performed At This exam was not acquired at a [facility] facility and has not been [facility]ANT interpreted by a [facility] Provider.The exam was imported into our imaging system for comparisons purposes. Performing Organization Address [facility]/Zipcode Phone Number [facility] [address] [place] [address] CT Abd/Pelvic External Study (03/24/2017 3:30 PM) Narrative Performed At This exam was not acquired at a [facility] facility and has not been HM RADIANT interpreted by a [facility] Provider.The exam was imported into our imaging system for comparisons purposes. Performing Organization Address City/State/Zipcode Phone Number [facility] [address] [place] [address] after 12/19/2016 Insurance Payer Benefit Plan / Group Subscriber ID Type Phone Address [employer] xxxxxxxxx HMO W [phone] [place] [address]
--- OUTSIDE RECORDS SUMMARY | 2017-12-20 04:35 | XMS REPORT | Clinical Summary ---
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 09/17/2017 isreal Cruz PPratima, colitis;Chronic MD obstructive pulmonary disease, unspecified COPD type ([facility]);Gastroesophageal reflux disease without esophagitis;Hypothyroi dism, unspecified type;Deep vein thrombosis (DVT) of left lower extremity, unspecified chronicity, unspecified vein ([facility]);Rectal bleeding;Rectal polyp;Normochromic anemia 09/16/2017 Anesthesia Event Gastroenterology Chanelle Reyes, OIL EXPERT 09/16/2017 Procedure Pass Gastroenterology 09/16/2017 Surgery Gastroenterology Brodie, SIGMOIDOSCOPY,POLYPECT KEV Colon MD 08/02/2017 [facility], Gastroesophageal - Encounter Medicine Mohamed reflux disease without 08/05/2017 Katie Mcclelland, esophagitis;Hypokalemi a;Other specified Parhizgar, hypothyroidism;Anson Ramirez MD bleeding;Rectal polyp 08/02/2017 Anesthesia Event Gastroenterology Abeba Fuchs, OIL EXPERT 08/02/2017 Procedure Pass Gastroenterology 08/02/2017 Surgery Gastroenterology Jorgeshira, COLONOSCOPY,SUBMUCOSAL Mohamed RESECTION Katie Mcclelland MD 07/29/2017 Hospital Pre-Admission Testing Encounter after 12/19/2016 Social History Tobacco Use Types Packs/Day Years [...] unspecified part of colon, unspecified type after 12/19/2016 Results RHYTHM STRIP - SCAN (09/20/2017 12:50 [...] Specimen Performing Laboratory Blood - Arm, Left [address] [place] [address] Narrative RECOMMENDED COUMADIN/WARFARIN INR THERAPY RANGES STANDARD [...] % Specimen Performing Laboratory Blood - Arm, [address] [address] CBC with platelet count + automated diff (09/17/2017 5:35 AM)Only the most recent of4 resultswithin the time period is included. Specimen Performing Laboratory Blood Narrative The following orders were created for panel order CBC with platelet count + automated diff. Procedure Abnormality Status --------- ------ CBC with platelet count ...[[id number]]AbnormalFinal result Please view results for these tests on the individual orders. Magnesium (09/17/2017 5:35 AM)Only the most recent of3 resultswithin the time period is included. Component Value Ref Range Magnesium 1.9 1.6 - 2.6 mg/dL Specimen Performing Laboratory Blood - Arm, [address] [address] Basic metabolic panel (09/17/2017 5:35 AM)Only the [...] Specimen Performing Laboratory Blood - Arm, Left [address] [address] Type and screen, automated (09/16/2017 6:30 PM) Component Value Ref Range ABO/RH AUTOMATED (BEAKER) A POSITIVE Ab Scrn NEGATIVE Specimen Performing Laboratory Blood [address] [address] CBC (Hemogram only) (09/16/2017 6:30 PM) Component [...] 0 /100 WBC Specimen Performing Laboratory Blood [address] [address] Tissue Exam (09/16/2017 3:38 PM)Only the most recent of2 resultswithin the time period is included. Component Value Ref Range Case Report Surgical Pathology Report Case: [id number] Authorizing Provider:Misha Calloway MDCollected: 09/16/2017 1538 Ordering Location: [address] Received: 09/19/2017 0820 Service Pathologist: Larry Cohn MD Specimen:Polyp, Colon - Rectosigmoid, POLYP TAKEN BY HOT SNARE DIAGNOSIS RECTO-SIGMOID, POLYPECTOMY - TUBULAR ADENOMA - CAUTERIZED EDGE, NEGATIVE FOR ADENOMATOUS CHANGE Signing Pathologist Direct Phone Line: [phone] CPT Code(s) 76976 CLINICAL HISTORY GI bleed SPECIMEN SOURCE Rectosigmoid [...] Laboratory Tissue - Polyp, Colon - Rectosigmoid [address] [address] Calcium, Ionized (08/05/2017 5:48 AM) Component Value Ref Range Calcium, Ion 1.05 (L) 1.12 - 1.27 mmol/L pH, Blood 7.46 Specimen Performing Laboratory Blood - Arm, [address] [address] Prothrombin time/INR (08/05/2017 5:48 AM)Only the most recent of3 resultswithin the time period is included. Component Value Ref Range Protime 14.2 11.7 - 14.7 seconds INR 1.1 <=5.9 Specimen Performing Laboratory Blood - Arm, [address] [address] Narrative RECOMMENDED COUMADIN/WARFARIN INR THERAPY RANGES STANDARD DOSE: 2.0 - 3.0 Includes: PROPHYLAXIS for venous thrombosis, systemic embolization; TREATMENT for venous thrombosis and/or pulmonary embolus. HIGH RISK: Target INR is 2.5-3.5 for patients with mechanical heart valves. Phosphorus (08/05/2017 5:48 AM) Component Value Ref Range Phosphorus 2.7 2.3 - 4.7 mg/dL Specimen Performing Laboratory Blood - Arm, [address] [place] [address] Hepatic function panel (08/05/2017 5:48 AM)Only the [...] Specimen Performing Laboratory Blood - Arm, Right [address] [address] Urinalysis w/Microscopic (08/03/2017 2:35 PM) Component Value Ref Range Color, UA Yellow Clarity, UA Clear Specific [place], UA 1.010 1.001 - 1.035 pH, UA [...] /LPF Specimen Source Specimen Performing Laboratory Urine [address] [address] after 12/19/2016
--- OUTSIDE RECORDS SUMMARY | 2017-12-20 04:36 | XMS REPORT ---
:1930 Author Organization [facility] Address [address] [place] [address] Dr. [place] [address] [place] [address] Care Team Providers Name Role Phone KIM MCKEON ZARI Unavailable Unavailable RICARDO WILSON Unavailable Unavailable Problems This patient has no known problems. Allergies, Adverse Reactions, Alerts This patient has no known allergies or adverse reactions. Medications This patient has no known medications. Results Test Description Test Time Test Comments Text Results Atomic Results Result Comments TISSUE EXAM 2017-09-20 16:22:00 Surgical Pathology Report Case: [id number] Authorizing Provider: Misha Calloway MD Collected: 09/16/2017 1538 Ordering Location: [address] Received: 09/19/2017 0820 Service Pathologist: Larry Cohn MD Specimen: Polyp, Colon - Rectosigmoid, POLYP TAKEN BY HOT SNARE RECTO-SIGMOID, POLYPECTOMY- TUBULAR ADENOMA- CAUTERIZED EDGE, NEGATIVE FOR ADENOMATOUS CHANGE Signing Pathologist Direct Phone Line: [phone] signed by Larry Cohn MD on 09/20/2017 at 4:22 [id number] bleedRectosigmoid colon polypThe specimen is received in [...] Value Reference Range Comments MAGNESIUM (BEAKER) (test wxji=661) 1.9 mg/dL 1.6-2.6 BASIC METABOLIC [id number] 07:32:00 Test Item Value Reference Range Comments SODIUM (BEAKER) (test 138 meq/L 136-145 lgup=478) POTASSIUM (BEAKER) (test 4.2 meq/L 3.5-5.1 nsxk=091) CHLORIDE (BEAKER) (test 106 meq/L 98-107 uqpy=811) CO2 (BEAKER) (test 25 meq/L 22-29 sgze=337) BLOOD UREA NITROGEN 6 mg/dL 7-21 (BEAKER) (test widc=986) CREATININE (BEAKER) (test 0.66 mg/dL 0.57-1.25 lhgc=389) GLUCOSE RANDOM (BEAKER) 76 mg/dL 70-105 (test gyaz=601) CALCIUM (BEAKER) (test 8.4 mg/dL 8.4-10.2 fzak=371) EGFR (BEAKER) (test 85 mL/min/1.73 sq m ESTIMATED GFR IS NOT izeo=0283) ACCURATE CREATININE CLEARANCE IN PREDICTING GLOMERULAR FILTRATION RATE. ESTIMATED GFR IS NOT APPLICABLE FOR DIALYSIS PATIENTS. [id number] 06:42:00 Test Item Value Reference Range Comments PROTIME (BEAKER) (test mxot=812) 20.8 seconds 11.7-14.7 INR (BEAKER) (test sjjp=469) 1.8 <=5.9 PARTIAL THROMBOPLASTIN TIME (BEAKER) (test 36.1 seconds 22.5-36.0 zbxt=275) RECOMMENDED COUMADIN/WARFARIN INR THERAPY RANGESSTANDARD DOSE: 2.0 - 3.0 Includes: PROPHYLAXIS forvenous thrombosis, systemic embolization; TREATMENT for venous thrombosis and/or pulmonary embolus.HIGH RISK: Target INR is 2.5-3.5 for patients with mechanical heart valves.CBC W/PLT COUNT & AUTO [id number] 06:41:00 Test Item Value Reference Range Comments WHITE BLOOD CELL COUNT (BEAKER) (test mztk=482) 5.5 K/ L 3.5-10.5 RED BLOOD CELL COUNT (BEAKER) (test occs=049) 3.52 M/ L 3.93-5.22 HEMOGLOBIN (BEAKER) (test xzbx=713) 10.4 GM/DL 11.2-15.7 HEMATOCRIT (BEAKER) (test hdqq=951) 33.1 % 34.1-44.9 MEAN CORPUSCULAR VOLUME (BEAKER) (test xvtx=360) 94.0 fL 79.4-94.8 MEAN CORPUSCULAR HEMOGLOBIN (BEAKER) (test 29.5 pg 25.6-32.2 gekh=239) MEAN CORPUSCULAR HEMOGLOBIN CONC (BEAKER) (test 31.4 GM/DL 32.2-35.5 vqtx=560) RED CELL DISTRIBUTION WIDTH (BEAKER) (test 19.8 % 11.7-14.4 ywek=439) PLATELET COUNT (BEAKER) (test pjdi=903) 240 K/CU MM 150-450 MEAN PLATELET VOLUME (BEAKER) (test mphe=612) 8.5 fL 9.4-12.3 NUCLEATED RED BLOOD CELLS (BEAKER) (test 0 /100 WBC 0-0 eyrc=537) NEUTROPHILS RELATIVE PERCENT (BEAKER) (test 43 % kqox=820) LYMPHOCYTES RELATIVE PERCENT (BEAKER) (test 49 % evsa=885) MONOCYTES RELATIVE PERCENT (BEAKER) (test 7 % eqzj=500) EOSINOPHILS RELATIVE PERCENT (BEAKER) (test 1 % disw=612) BASOPHILS RELATIVE PERCENT (BEAKER) (test 0 % yyco=083) NEUTROPHILS ABSOLUTE COUNT (BEAKER) (test 2.34 K/ L 1.56-6.13 wdkj=924) LYMPHOCYTES ABSOLUTE COUNT (BEAKER) (test 2.68 K/ L 1.18-3.74 epjc=027) MONOCYTES ABSOLUTE COUNT (BEAKER) (test 0.38 K/ L 0.24-0.36 wtao=097) EOSINOPHILS ABSOLUTE COUNT (BEAKER) (test 0.05 K/ L 0.04-0.36 dctr=732) BASOPHILS ABSOLUTE COUNT (BEAKER) (test 0.02 K/ L 0.01-0.08 immw=034) IMMATURE GRANULOCYTES-RELATIVE PERCENT (BEAKER) 0 % 0-1 (test jilw=5349) [id number] 19:07:00 Test Item Value Reference Range Comments MAGNESIUM (BEAKER) (test swcg=200) 1.9 mg/dL 1.6-2.6 BASIC METABOLIC [id number] 19:07:00 Test Item Value Reference Range Comments SODIUM (BEAKER) (test 137 meq/L 136-145 zqfi=915) POTASSIUM (BEAKER) (test 3.8 meq/L 3.5-5.1 smrg=540) CHLORIDE (BEAKER) (test 106 meq/L 98-107 harx=332) CO2 (BEAKER) (test 23 meq/L 22-29 szop=353) BLOOD UREA NITROGEN 6 mg/dL 7-21 (BEAKER) (test kqzd=313) CREATININE (BEAKER) (test 0.64 mg/dL 0.57-1.25 isqx=957) GLUCOSE RANDOM (BEAKER) 82 mg/dL 70-105 (test whbm=109) CALCIUM (BEAKER) (test 8.5 mg/dL 8.4-10.2 gehj=889) EGFR (BEAKER) (test 88 mL/min/1.73 sq m ESTIMATED GFR IS NOT feju=7329) ACCURATE CREATININE CLEARANCE IN PREDICTING GLOMERULAR FILTRATION RATE. ESTIMATED GFR IS NOT APPLICABLE FOR DIALYSIS PATIENTS. CBC (HEMOGRAM ONLY)2017-09-16 18:38:00 Test Item Value Reference Range Comments WHITE BLOOD CELL COUNT (BEAKER) (test fppf=718) 6.5 K/ L 3.5-10.5 RED BLOOD CELL COUNT (BEAKER) (test rmhu=386) 3.61 M/ L 3.93-5.22 HEMOGLOBIN (BEAKER) (test owif=462) 10.9 GM/DL 11.2-15.7 HEMATOCRIT (BEAKER) (test lzku=451) 33.5 % 34.1-44.9 MEAN CORPUSCULAR VOLUME (BEAKER) (test gexd=658) 92.8 fL 79.4-94.8 MEAN CORPUSCULAR HEMOGLOBIN (BEAKER) (test 30.2 pg 25.6-32.2 rbid=222) MEAN CORPUSCULAR HEMOGLOBIN CONC (BEAKER) (test 32.5 GM/DL 32.2-35.5 exvy=568) RED CELL DISTRIBUTION WIDTH (BEAKER) (test 19.8 % 11.7-14.4 imsa=785) PLATELET COUNT (BEAKER) (test mlbe=402) 239 K/CU MM 150-450 MEAN PLATELET VOLUME (BEAKER) (test qhjd=626) 8.7 fL 9.4-12.3 NUCLEATED RED BLOOD CELLS (BEAKER) (test 0 /100 WBC 0-0 hwuf=428) [id number] 06:56:00 Test Item Value Reference Range Comments PHOSPHORUS (BEAKER) (test gcpb=497) 2.7 mg/dL 2.3-4.7 [id number] 06:56:00 Test Item Value Reference Range Comments MAGNESIUM (BEAKER) (test kixd=574) 1.9 mg/dL 1.6-2.6 BASIC METABOLIC [id number] 06:56:00 Test Item Value Reference Range Comments SODIUM (BEAKER) (test 139 meq/L 136-145 yfln=465) POTASSIUM (BEAKER) (test 4.1 meq/L 3.5-5.1 hxik=604) CHLORIDE (BEAKER) (test 107 meq/L 98-107 cbwb=242) CO2 (BEAKER) (test 26 meq/L 22-29 uulu=975) BLOOD UREA NITROGEN 11 mg/dL 7-21 (BEAKER) (test avzx=686) CREATININE (BEAKER) (test 0.73 mg/dL 0.57-1.25 yaka=289) GLUCOSE RANDOM (BEAKER) 107 mg/dL 70-105 (test qree=942) CALCIUM (BEAKER) (test 8.5 mg/dL 8.4-10.2 hcrp=569) EGFR (BEAKER) (test 76 mL/min/1.73 sq m ESTIMATED GFR IS NOT rakr=5803) ACCURATE CREATININE CLEARANCE IN PREDICTING GLOMERULAR FILTRATION RATE. ESTIMATED GFR IS NOT APPLICABLE FOR DIALYSIS PATIENTS. HEPATIC FUNCTION [id number] 06:56:00 Test Item Value Reference Range Comments TOTAL PROTEIN (BEAKER) (test iodr=832) 5.2 gm/dL 6.0-8.3 ALBUMIN (BEAKER) (test zogl=8772) 2.9 g/dL 3.5-5.0 BILIRUBIN TOTAL (BEAKER) (test wkwz=809) 0.8 mg/dL 0.2-1.2 BILIRUBIN DIRECT (BEAKER) (test liah=061) 0.4 mg/dL 0.1-0.5 ALKALINE PHOSPHATASE (BEAKER) (test owrf=703) 43 U/L 40-150 AST (SGOT) (BEAKER) (test ktzg=540) 13 U/L 5-34 ALT (SGPT) (BEAKER) (test ryyj=728) 10 U/L 6-55 CALCIUM, [id number] 06:36:00 Test Item Value Reference Range Comments CALCIUM IONIZED (BEAKER) (test uepp=772) 1.05 mmol/L 1.12-1.27 PH, BLOOD (BEAKER) (test hipc=7998) 7.46 PROTHROMBIN [id number] 06:35:00 Test Item Value Reference Range Comments PROTIME (BEAKER) (test sddg=071) 14.2 seconds 11.7-14.7 INR (BEAKER) (test pzug=768) 1.1 <=5.9 RECOMMENDED COUMADIN/WARFARIN INR THERAPY RANGESSTANDARD DOSE: 2.0 - 3.0 Includes: PROPHYLAXIS forvenous thrombosis, systemic embolization; TREATMENT for venous thrombosis and/or pulmonary embolus.HIGH RISK: Target INR is 2.5-3.5 for patients with mechanical heart valves.CBC W/PLT COUNT & AUTO [id number] 06:25:00 Test Item Value Reference Range Comments WHITE BLOOD CELL COUNT (BEAKER) (test btuj=561) 9.4 K/ L 3.5-10.5 RED BLOOD CELL COUNT (BEAKER) (test dchi=116) 3.48 M/ L 3.93-5.22 HEMOGLOBIN (BEAKER) (test mbpi=745) 10.0 GM/DL 11.2-15.7 HEMATOCRIT (BEAKER) (test bncu=699) 31.1 % 34.1-44.9 MEAN CORPUSCULAR VOLUME (BEAKER) (test cfde=572) 89.4 fL 79.4-94.8 MEAN CORPUSCULAR HEMOGLOBIN (BEAKER) (test 28.7 pg 25.6-32.2 qzdl=867) MEAN CORPUSCULAR HEMOGLOBIN CONC (BEAKER) (test 32.2 GM/DL 32.2-35.5 oevn=120) RED CELL DISTRIBUTION WIDTH (BEAKER) (test 18.3 % 11.7-14.4 rvjt=902) PLATELET COUNT (BEAKER) (test innu=960) 234 K/CU MM 150-450 MEAN PLATELET VOLUME (BEAKER) (test uqgy=992) 8.9 fL 9.4-12.3 NUCLEATED RED BLOOD CELLS (BEAKER) (test 0 /100 WBC 0-0 jijf=257) NEUTROPHILS RELATIVE PERCENT (BEAKER) (test 70 % dzlp=772) LYMPHOCYTES RELATIVE PERCENT (BEAKER) (test 24 % qheh=876) MONOCYTES RELATIVE PERCENT (BEAKER) (test 5 % ydny=242) EOSINOPHILS RELATIVE PERCENT (BEAKER) (test 0 % udtf=601) BASOPHILS RELATIVE PERCENT (BEAKER) (test 0 % pmat=032) NEUTROPHILS ABSOLUTE COUNT (BEAKER) (test 6.54 K/ L 1.56-6.13 swhe=704) LYMPHOCYTES ABSOLUTE COUNT (BEAKER) (test 2.30 K/ L 1.18-3.74 ixyy=236) MONOCYTES ABSOLUTE COUNT (BEAKER) (test 0.50 K/ L 0.24-0.36 edqn=065) EOSINOPHILS ABSOLUTE COUNT (BEAKER) (test 0.03 K/ L 0.04-0.36 mldl=853) BASOPHILS ABSOLUTE COUNT (BEAKER) (test 0.02 K/ L 0.01-0.08 kepv=334) IMMATURE GRANULOCYTES-RELATIVE PERCENT (BEAKER) 0 % 0-1 (test jndm=3736) TISSUE [id number] 14:52:00Surgical Pathology Report Case: [id number] Authorizing Provider: Ricardo Wilson MD Collected: 08/02/2017 1715 Ordering Location: [facility] Endoscopy Received: 08/03/2017 0837 Services Pathologist: Larry Cohn MD Specimen: Rectal, MASS- TAKEN BY ESD, ON WAX, EVALUATE MARGINS RECTAL, 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)- NEGATIVE FOR HIGH GRADE DYSPLASIA OR CARCINOMA- PERIPHERAL MARGINS, NEGATIVE FOR ADENOMATOUS CHANGE Signing Pathologist Direct Phone Line: [phone] signed by Larry Cohn MD on 08/04/2017 at 2:52 [id number] polyp Rectal mass Received in formalin labeled [...] the diagnostic line.CBC W/PLT COUNT & AUTO [id number] 06:19:00 Test Item Value Reference Range Comments WHITE BLOOD CELL COUNT (BEAKER) (test zphz=561) 15.6 K/ L 3.5-10.5 RED BLOOD CELL COUNT (BEAKER) (test lysk=432) 3.50 M/ L 3.93-5.22 HEMOGLOBIN (BEAKER) (test ahgm=218) 9.9 GM/DL 11.2-15.7 HEMATOCRIT (BEAKER) (test nlzg=480) 31.4 % 34.1-44.9 MEAN CORPUSCULAR VOLUME (BEAKER) (test ehdc=920) 89.7 fL 79.4-94.8 MEAN CORPUSCULAR HEMOGLOBIN (BEAKER) (test 28.3 pg 25.6-32.2 looe=395) MEAN CORPUSCULAR HEMOGLOBIN CONC (BEAKER) (test 31.5 GM/DL 32.2-35.5 hgjm=922) RED CELL DISTRIBUTION WIDTH (BEAKER) (test 18.0 % 11.7-14.4 xcdg=550) PLATELET COUNT (BEAKER) (test qeer=299) 223 K/CU MM 150-450 MEAN PLATELET VOLUME (BEAKER) (test uuem=328) 8.7 fL 9.4-12.3 NUCLEATED RED BLOOD CELLS (BEAKER) (test 0 /100 WBC 0-0 jfgy=660) NEUTROPHILS RELATIVE PERCENT (BEAKER) (test 81 % neod=263) LYMPHOCYTES RELATIVE PERCENT (BEAKER) (test 15 % oeec=754) MONOCYTES RELATIVE PERCENT (BEAKER) (test 4 % chen=216) EOSINOPHILS RELATIVE PERCENT (BEAKER) (test 0 % ohtz=024) BASOPHILS RELATIVE PERCENT (BEAKER) (test 0 % bnns=293) NEUTROPHILS ABSOLUTE COUNT (BEAKER) (test 12.56 K/ L 1.56-6.13 izos=480) LYMPHOCYTES ABSOLUTE COUNT (BEAKER) (test 2.36 K/ L 1.18-3.74 agov=132) MONOCYTES ABSOLUTE COUNT (BEAKER) (test 0.56 K/ L 0.24-0.36 nfrc=306) EOSINOPHILS ABSOLUTE COUNT (BEAKER) (test 0.03 K/ L 0.04-0.36 xxzv=419) BASOPHILS ABSOLUTE COUNT (BEAKER) (test 0.02 K/ L 0.01-0.08 mlaz=981) IMMATURE GRANULOCYTES-RELATIVE PERCENT (BEAKER) 0 % 0-1 (test rnag=9206) HEPATIC FUNCTION [id number] 06:15:00 Test Item Value Reference Range Comments TOTAL PROTEIN (BEAKER) (test null=894) 4.9 gm/dL 6.0-8.3 ALBUMIN (BEAKER) (test wwew=4271) 2.8 g/dL 3.5-5.0 BILIRUBIN TOTAL (BEAKER) (test xocd=580) 1.1 mg/dL 0.2-1.2 BILIRUBIN DIRECT (BEAKER) (test ejhl=506) 0.5 mg/dL 0.1-0.5 ALKALINE PHOSPHATASE (BEAKER) (test zkyz=873) 42 U/L 40-150 AST (SGOT) (BEAKER) (test qieh=680) 15 U/L 5-34 ALT (SGPT) (BEAKER) (test iuqd=228) 12 U/L 6-55 BASIC METABOLIC [id number] 06:15:00 Test Item Value Reference Range Comments SODIUM (BEAKER) (test 139 meq/L 136-145 chle=891) POTASSIUM (BEAKER) (test 4.6 meq/L 3.5-5.1 htsh=186) CHLORIDE (BEAKER) (test 108 meq/L 98-107 jurw=976) CO2 (BEAKER) (test 25 meq/L 22-29 lxfp=881) BLOOD UREA NITROGEN 13 mg/dL 7-21 (BEAKER) (test vzde=776) CREATININE (BEAKER) (test 0.73 mg/dL 0.57-1.25 ofuz=898) GLUCOSE RANDOM (BEAKER) 115 mg/dL 70-105 (test itfl=977) CALCIUM (BEAKER) (test 8.5 mg/dL 8.4-10.2 nplw=793) EGFR (BEAKER) (test 76 mL/min/1.73 sq m ESTIMATED GFR IS NOT gwaq=4239) ACCURATE CREATININE CLEARANCE IN PREDICTING GLOMERULAR FILTRATION RATE. ESTIMATED GFR IS NOT APPLICABLE FOR DIALYSIS PATIENTS. PROTHROMBIN [id number] 05:59:00 Test Item Value Reference Range Comments PROTIME (BEAKER) (test parn=475) 14.6 seconds 11.7-14.7 INR (BEAKER) (test jlqd=839) 1.1 <=5.9 RECOMMENDED COUMADIN/WARFARIN INR THERAPY RANGESSTANDARD DOSE: 2.0 - 3.0 Includes: PROPHYLAXIS forvenous thrombosis, systemic embolization; TREATMENT for venous thrombosis and/or pulmonary embolus.HIGH RISK: Target INR is 2.5-3.5 for patients with mechanical heart valves.URINALYSIS W/ [id number] 14 :53:00 Test Item Value Reference Range Comments COLOR (BEAKER) (test ulzq=221) Yellow CLARITY (BEAKER) (test hvqk=967) Clear SPECIFIC GRAVITY UA (BEAKER) (test zwcn=460) 1.010 1.001-1.035 PH UA (BEAKER) (test zalz=054) 5.5 5.0-8.0 PROTEIN UA (BEAKER) (test zdik=158) Negative Negative GLUCOSE UA (BEAKER) (test mmsx=051) Negative Negative KETONES UA (BEAKER) (test iwtw=494) Trace Negative BILIRUBIN UA (BEAKER) (test qjqa=773) Negative Negative BLOOD UA (BEAKER) (test edbs=991) Negative Negative NITRITE UA (BEAKER) (test nynl=267) Negative Negative LEUKOCYTE ESTERASE UA (BEAKER) (test dxit=494) Negative Negative UROBILINOGEN UA (BEAKER) (test zxbh=490) 0.2 mg/dL 0.2-1.0 RBC UA (BEAKER) (test sdsg=733) 1 /HPF WBC UA (BEAKER) (test dgep=590) 3 /HPF MUCUS (BEAKER) (test ufxj=4491) Few SQUAMOUS EPITHELIAL (BEAKER) (test dovf=568) < /HPF HYALINE CASTS (BEAKER) (test hhlb=401) 2 /LPF SOURCE(BEAKER) (test pxzm=2717) HEPATIC FUNCTION [id number] 06:31:00 Test Item Value Reference Range Comments TOTAL PROTEIN (BEAKER) (test debg=149) 5.2 gm/dL 6.0-8.3 ALBUMIN (BEAKER) (test ujej=3618) 3.1 g/dL 3.5-5.0 BILIRUBIN TOTAL (BEAKER) (test ymco=724) 1.1 mg/dL 0.2-1.2 BILIRUBIN DIRECT (BEAKER) (test cpum=273) 0.5 mg/dL 0.1-0.5 ALKALINE PHOSPHATASE (BEAKER) (test ufnq=364) 47 U/L 40-150 AST (SGOT) (BEAKER) (test ulvt=362) 20 U/L 5-34 ALT (SGPT) (BEAKER) (test foek=906) 15 U/L 6-55 BASIC METABOLIC [id number] 06:31:00 Test Item Value Reference Range Comments SODIUM (BEAKER) (test 139 meq/L 136-145 gfjb=344) POTASSIUM (BEAKER) (test 2.7 meq/L 3.5-5.1 pzau=571) CHLORIDE (BEAKER) (test 106 meq/L 98-107 nttf=445) CO2 (BEAKER) (test 24 meq/L 22-29 waii=826) BLOOD UREA NITROGEN 7 mg/dL 7-21 (BEAKER) (test axco=949) CREATININE (BEAKER) (test 0.61 mg/dL 0.57-1.25 aaeq=815) GLUCOSE RANDOM (BEAKER) 88 mg/dL 70-105 (test eigg=952) CALCIUM (BEAKER) (test 8.4 mg/dL 8.4-10.2 lrmq=228) EGFR (BEAKER) (test 93 mL/min/1.73 sq m ESTIMATED GFR IS NOT azmj=3204) ACCURATE CREATININE CLEARANCE IN PREDICTING GLOMERULAR FILTRATION RATE. ESTIMATED GFR IS NOT APPLICABLE FOR DIALYSIS PATIENTS. BASIC METABOLIC [id number] 06:30:00 Test Item Value Reference Range Comments SODIUM (BEAKER) (test 136 meq/L 136-145 yssu=725) POTASSIUM (BEAKER) (test 3.0 meq/L 3.5-5.1 Specimen slightly snpc=473) hemolyzed CHLORIDE (BEAKER) (test 106 meq/L 98-107 nntg=376) CO2 (BEAKER) (test 20 meq/L 22-29 eyqt=785) BLOOD UREA NITROGEN 7 mg/dL 7-21 (BEAKER) (test yabc=285) CREATININE (BEAKER) (test 0.61 mg/dL 0.57-1.25 Specimen slightly kkec=751) hemolyzed GLUCOSE RANDOM (BEAKER) 81 mg/dL 70-105 (test pcod=869) CALCIUM (BEAKER) (test 8.2 mg/dL 8.4-10.2 ikxc=236) EGFR (BEAKER) (test 93 mL/min/1.73 sq m ESTIMATED GFR IS NOT iltw=2688) ACCURATE CREATININE CLEARANCE IN PREDICTING GLOMERULAR FILTRATION RATE. ESTIMATED GFR IS NOT APPLICABLE FOR DIALYSIS PATIENTS. CBC W/PLT COUNT & AUTO [id number] 06:25:00 Test Item Value Reference Range Comments WHITE BLOOD CELL COUNT (BEAKER) (test ckmh=059) 14.6 K/ L 3.5-10.5 RED BLOOD CELL COUNT (BEAKER) (test geiv=865) 3.75 M/ L 3.93-5.22 HEMOGLOBIN (BEAKER) (test qtpa=751) 10.5 GM/DL 11.2-15.7 HEMATOCRIT (BEAKER) (test wvmq=858) 33.1 % 34.1-44.9 MEAN CORPUSCULAR VOLUME (BEAKER) (test ltmm=459) 88.3 fL 79.4-94.8 MEAN CORPUSCULAR HEMOGLOBIN (BEAKER) (test 28.0 pg 25.6-32.2 dxym=844) MEAN CORPUSCULAR HEMOGLOBIN CONC (BEAKER) (test 31.7 GM/DL 32.2-35.5 ryme=571) RED CELL DISTRIBUTION WIDTH (BEAKER) (test 17.5 % 11.7-14.4 zvtq=175) PLATELET COUNT (BEAKER) (test ahdt=902) 246 K/CU MM 150-450 MEAN PLATELET VOLUME (BEAKER) (test juuf=531) 8.9 fL 9.4-12.3 NUCLEATED RED BLOOD CELLS (BEAKER) (test 0 /100 WBC 0-0 yggh=700) NEUTROPHILS RELATIVE PERCENT (BEAKER) (test 88 % hmxz=110) LYMPHOCYTES RELATIVE PERCENT (BEAKER) (test 5 % fetc=328) MONOCYTES RELATIVE PERCENT (BEAKER) (test 6 % wovt=616) EOSINOPHILS RELATIVE PERCENT (BEAKER) (test 0 % nyfm=455) BASOPHILS RELATIVE PERCENT (BEAKER) (test 0 % kvta=382) NEUTROPHILS ABSOLUTE COUNT (BEAKER) (test 12.85 K/ L 1.56-6.13 znzn=333) LYMPHOCYTES ABSOLUTE COUNT (BEAKER) (test 0.71 K/ L 1.18-3.74 hsjl=988) MONOCYTES ABSOLUTE COUNT (BEAKER) (test 0.94 K/ L 0.24-0.36 ndap=049) EOSINOPHILS ABSOLUTE COUNT (BEAKER) (test 0.00 K/ L 0.04-0.36 equo=167) BASOPHILS ABSOLUTE COUNT (BEAKER) (test 0.02 K/ L 0.01-0.08 aqva=947) IMMATURE GRANULOCYTES-RELATIVE PERCENT (BEAKER) 1 % 0-1 (test iath=0751) PROTHROMBIN [id number] 06:21:00 Test Item Value Reference Range Comments PROTIME (BEAKER) (test pido=953) 13.5 seconds 11.7-14.7 INR (BEAKER) (test tjhe=579) 1.0 <=5.9 RECOMMENDED COUMADIN/WARFARIN INR THERAPY RANGESSTANDARD DOSE: 2.0 - 3.0 Includes: PROPHYLAXIS forvenous thrombosis, systemic embolization; TREATMENT for venous thrombosis and/or pulmonary embolus.HIGH RISK: Target INR is 2.5-3.5 for patients with mechanical heart valves.
[2017-12-20] MEDS ORDERED: NA CHLORIDE 0.9% 1,000 ML ONE (05:21)
[2017-12-20] MEDS ORDERED: NA CHLORIDE 0.9% 500 ML ONE (05:21)
[2017-12-20 05:58] LABS: Absolute Lymphocytes (CBC) 1.7 K/uL (0.7-4.9); Absolute Monocytes 0.7 K/uL (0.1-1.3); Absolute Neutrophil 10.7 K/uL (1.8-8.0); Basophils % 0.2 % (0-1.3); Eosinophils % 0.5 % (0-4.4); Lymphocytes % 13.3 % (15.3-44.8); MCH 31.9 pg (27.0-35.0); MCV 94.5 fL (80-100); Monocytes % 4.9 % (3.3-12.3); RBC Red Blood Cell Count 4.02 M/uL (3.86-4.86)
[2017-12-20 05:59] LABS: Protime INR 1.44
[2017-12-20 06:09] LABS: ALT/SGPT 29 U/L (12-78); AST/SGOT 18 U/L (15-37); Albumin 3.1 g/dL (3.4-5.0); Alkaline Phosphatase 58 U/L (45-117); BUN Blood Urea Nitrogen 12 mg/dL (7-18); Bicarbonate 29 mmol/L (21-32); Bilirubin Direct 0.4 mg/dL (0-0.2); Bilirubin Total 1.6 mg/dL (0.2-1.0); C-Reactive Protein 5.47 mg/L (<3.00); Glucose Level 88 mg/dL (74-106); Lipase 222 U/L (73-393); Magnesium 2.3 mg/dL (1.8-2.4); NT PRO-BNP 135 pg/mL (<450); Potassium 3.4 mmol/L (3.5-5.1); Protein, Total 6.4 g/dL (6.4-8.2); Sodium Level 140 mmol/L (136-145); Troponin (Emerg Dept Use Only) < 0.02 ng/mL (0.0-0.045)
[2017-12-20] MEDS ORDERED: POTASSIUM 25 MEQ EFFERV TAB ONE (06:46)
--- NOTE | 2017-12-20 06:47 | EDPHYS ---
Physician Documentation [facility] Name: Elva Jenkins Age: 87 yrs Sex: Female : 1930 Arrival Date: 12/20/2017 Time: 04:34 Bed 16 Private MD: Bharti Pollock C ED Physician Juan Pablo Valle HPI: 12/20 05:06 This 87 yrs old Female presents to ER via EMS with complaints of Diarrhea. pkl 05:06 The patient presents to the emergency department with diarrhea. Onset: The pkl symptoms/episode began/occurred 2 day(s) ago. Associated signs and symptoms: Pertinent positives: fever, rectal bleeding. Historical: - Allergies: 04:51 Asacol; ao 04:51 Phenergan; ao 04:51 Sulfazine; ao 04:51 Methotrexate; ao 04:51 Humira; ao 04:51 Rituxan; ao 04:51 Orencia; ao 04:51 Demerol; ao 04:51 promethazine HCl; ao - Home Meds: 04:48 alprazolam 0.25 mg Oral tab 1 tab BID PRN [Active]; furosemide 20 mg Oral tab 1 tab 2 ea times per day [Active]; Xarelto 20 mg Oral tab 1 tab once daily [Active]; prednisone 5 mg Oral tab 1 tab 2 times per day [Active]; atorvastatin 40 mg oral tab 1 tab once daily [Active]; Spiriva with HandiHaler 18 mcg inhalation CpDv 1 cap once daily [Active]; - PMHx: 04:51 Anxiety; Arthritis; c-diff 18; chronic diarrhea; clostridium difficile; colon mass; ao COPD; gastritis; Hernia; Hypothyroidism; rectal mass; TIA; UTI; - PSHx: 04:51 stents; rectal mass; ao - Immunization history:: Adult Immunizations up to date. - Social history:: Smoking status: Patient/guardian denies using tobacco, Patient/guardian denies using alcohol, street drugs. - Ebola Screening: : Patient negative for fever greater than or equal to 101.5 degrees Fahrenheit, and additional compatible Ebola Virus Disease symptoms Patient denies exposure to infectious person Patient denies travel to an Ebola-affected area in the 21 days before illness onset. ROS: 05:06 Eyes: Negative for injury, pain, redness, and discharge, ENT: Negative for injury, pkl pain, and discharge, Neck: Negative for injury, pain, and swelling, Cardiovascular: Negative for chest pain, palpitations, and edema, Respiratory: Negative for shortness of breath, cough, wheezing, and pleuritic chest pain. 05:06 Abdomen/GI: Positive for diarrhea, rectal bleeding. 05:06 Back: Negative for acute changes. 05:06 : Negative for urinary symptoms. 05:06 MS/extremity: Negative for acute changes. 05:06 Skin: Negative for rash. 05:06 Neuro: Negative for altered mental status, loss of consciousness. Exam: 05:06 Head/Face: Normocephalic, atraumatic. Eyes: Pupils equal round and reactive to light, pkl extra-ocular motions intact. Lids and lashes normal. Conjunctiva and sclera are non-icteric and not injected. Cornea within normal limits. Periorbital areas with no swelling, redness, or edema. ENT: Nares patent. No nasal discharge, no septal abnormalities noted. Tympanic membranes are normal and external auditory canals are clear. Oropharynx with no redness, swelling, or masses, exudates, or evidence of obstruction, uvula midline. Mucous membranes moist. Neck: Trachea midline, no thyromegaly or masses palpated, and no cervical lymphadenopathy. Supple, full range of motion without nuchal rigidity, or vertebral point tenderness. No Meningismus. Chest/axilla: Normal chest wall appearance and motion. Nontender with no deformity. No lesions are appreciated. Cardiovascular: Regular rate and rhythm with a normal S1 and S2. No gallops, murmurs, or rubs. Normal PMI, no JVD. No pulse deficits. Respiratory: Lungs have equal breath sounds bilaterally, clear to auscultation and percussion. No rales, rhonchi or wheezes noted. No increased work of breathing, no retractions or nasal flaring. 05:06 Abdomen/GI: Bowel sounds: active, Palpation: abdomen is soft and non-tender, in all quadrants, Rectal exam: Stool: guaiac negative, the exam is chaperoned by the nurse. 05:06 Back: Exam negative for acute changes. 05:06 : Exam negative for acute changes. 05:06 Musculoskeletal/extremity: Exam is negative for acute changes. 05:06 Skin: Exam negative for rash. 05:06 Neuro: Orientation: appropriate for stated age, Mentation: is normal, Cranial nerves: grossly normal, Motor: is normal. Vital Signs: 04:44 BP 152 / 72; Pulse 96; Resp 18; Temp 100.3(O); Pulse Ox 98% on R/A; Weight 50.35 kg ao (R); Height 4 ft. 11 in. (149.86 cm); Pain 4/10; 05:52 BP 103 / 63; Pulse 90; Resp 18; Pulse Ox 97% ; Pain 0/10; ao 07:00 BP 132 / 64; Pulse 87; Resp 16 S; Pulse Ox 99% on R/A; jl7 08:00 BP 143 / 63; Pulse 89; Resp 16 S; Pulse Ox 99% on R/A; jl7 08:49 BP 152 / 72; Pulse 91; Resp 16 S; Pulse Ox 97% on R/A; jl7 10:21 BP 151 / 73; Pulse 90; Resp 16 S; Temp 99.2(O); Pulse Ox 97% on R/A; jl7 04:44 Body Mass Index 22.42 (50.35 kg, 149.86 cm) ao MDM: 04:35 Patient medically screened. pkl 05:25 Data reviewed: vital signs, nurses notes. pkl 06:46 Data reviewed: lab test result(s). pkl 12/20 05:02 Order name: Basic Metabolic Panel; Complete Time: 06:10 pkl 12/20 05:02 Order name: CBC with Diff; Complete Time: 06:09 pkl 12/20 05:02 Order name: LFT's; Complete Time: 06:10 pkl 12/20 05:02 Order name: Magnesium; Complete Time: 06:10 pkl 12/20 05:02 Order name: NT PRO-BNP; Complete Time: 06:10 pkl 12/20 05:02 Order name: PT-INR; Complete Time: 06:45 pkl 12/20 05:02 Order name: Troponin (emerg Dept Use Only); Complete Time: 06:10 pkl 12/20 05:02 Order name: Blood Culture Adult (2) pkl 12/20 05:02 Order name: Stool Culture pkl 12/20 05:04 Order name: Lactate; Complete Time: 06:09 pkl 12/20 05:04 Order name: Procalcitonin; Complete Time: 06:45 pkl 12/20 05:46 Order name: C-Reactive Protein; Complete Time: 06:10 EDMS 12/20 05:02 Order name: XRAY Chest (1 view) pkl 12/20 05:02 Order name: EKG; Complete Time: 05:03 pkl 12/20 05:02 Order name: Cardiac monitoring; Complete Time: 05:27 pkl 12/20 05:02 Order name: EKG - Nurse/Tech; Complete Time: 06:40 pkl 12/20 05:02 Order name: IV Saline Lock; Complete Time: 05:27 pkl 12/20 05:02 Order name: Labs collected and sent; Complete Time: 05:28 pkl 12/20 05:02 Order name: O2 Per Protocol; Complete Time: 05:28 pkl 12/20 05:02 Order name: O2 Sat Monitoring; Complete Time: 05:28 pkl 12/20 05:46 Order name: Lipase; Complete Time: 06:10 EDMS Administered Medications: 05:12 Drug: NS 0.9% 500 ml Route: IV; Rate: bolus; Site: left antecubital; ao 07:07 Follow up: IV Status: Completed infusion; IV Intake: 500ml ao 06:04 Drug: NS 0.9% 1000 ml Route: IV; Rate: 100 ml/hr; Site: left antecubital; ao 07:07 Follow up: IV Status: Infusion continued upon admission ao 06:48 Drug: K-Lyte Effervescent Tablet 25 mEq Route: PO; ao 07:06 Follow up: Response: No adverse reaction ao Disposition: 12/20/17 06:47 Hospitalization ordered by Bharti Pollock for Observation. Preliminary diagnosis is Diarrhea. Rectal bleeding. - Bed requested for Telemetry/MedSurg (observation). - Status is Observation. jl7 - Condition is Stable. - Problem is new. - Symptoms are unchanged. UTI on Admission? No Signatures: Dispatcher [employer] EDMS Saray Wilkerson Pin, MD MD pkl Ahsan Newell RN RN Norberto West RN RN jl7 Gail Valdovinos RN GUME baxter Corrections: (The following items were deleted from the chart) 05:45 05:05 LIPASE+C.LAB.BRZ ordered. EDMS EDMS 05:45 05:05 C-REACTIVE PROTEIN+C.LAB.BRZ ordered. EDVA EDMS 09:12 06:47 Hospitalization Ordered by A Maris PALOMARES for Observation. Preliminary diagnosis is bd Diarrhea. Rectal bleeding. Bed requested for Telemetry/MedSurg (observation). Status is Observation. Condition is Stable. Problem is new. Symptoms are unchanged. UTI on Admission? No. pkl 10:44 09:12 12/20/2017 06:47 Hospitalization Ordered by A Maris PALOMARES for Observation. jl7 Preliminary diagnosis is Diarrhea. Rectal bleeding. Bed requested for Telemetry/MedSurg (observation). Status is Observation. Condition is Stable. Problem is new. Symptoms are unchanged. UTI on Admission? No. bd
--- NOTE | 2017-12-20 06:47 | ER ---
Nurse's Notes [facility] Name: Elva Jenkins Age: 87 yrs Sex: Female : 1930 Arrival Date: 12/20/2017 Time: 04:34 Bed 16 Private MD: Bharti Pollock C Diagnosis: Diarrhea. Rectal bleeding Presentation: 12/20 04:43 Presenting complaint: EMS states: Has diarrhea for the past two days. Patient complains ao of rectal bleeding and leg swelling also. Transition of care: patient was not received from another setting of care. Onset of symptoms was December 18, 2017. Risk Assessment: Do you want to hurt yourself or someone else? Patient reports no desire to harm self or others. Initial Sepsis Screen: Does the patient meet any 2 criteria? No. Patient's initial sepsis screen is negative. Does the patient have a suspected source of infection? No. Patient's initial sepsis screen is negative. Care prior to arrival: None. 04:43 Method Of Arrival: EMS: [facility] ao 04:43 Acuity: TAVON 3 ao Historical: - Allergies: 04:51 Asacol; ao 04:51 Phenergan; ao 04:51 Sulfazine; ao 04:51 Methotrexate; ao 04:51 Humira; ao 04:51 Rituxan; ao 04:51 Orencia; ao 04:51 Demerol; ao 04:51 promethazine HCl; ao - Home Meds: 04:48 alprazolam 0.25 mg Oral tab 1 tab BID PRN [Active]; furosemide 20 mg Oral tab 1 tab 2 ea times per day [Active]; Xarelto 20 mg Oral tab 1 tab once daily [Active]; prednisone 5 mg Oral tab 1 tab 2 times per day [Active]; atorvastatin 40 mg oral tab 1 tab once daily [Active]; Spiriva with HandiHaler 18 mcg inhalation CpDv 1 cap once daily [Active]; - PMHx: 04:51 Anxiety; Arthritis; c-diff 08/13/17; chronic diarrhea; clostridium difficile; colon mass; ao COPD; gastritis; Hernia; Hypothyroidism; rectal mass; TIA; UTI; - PSHx: 04:51 stents; rectal mass; ao - Immunization history:: Adult Immunizations up to date. - Social history:: Smoking status: Patient/guardian denies using tobacco, Patient/guardian denies using alcohol, street drugs. - Ebola Screening: : Patient negative for fever greater than or equal to 101.5 degrees Fahrenheit, and additional compatible Ebola Virus Disease symptoms Patient denies exposure to infectious person Patient denies travel to an Ebola-affected area in the 21 days before illness onset. Screenin:54 Abuse screen: Denies threats or abuse. Denies injuries from another. Nutritional ao screening: No deficits noted. Tuberculosis screening: No symptoms or risk factors identified. Fall Risk None identified. Assessment: 04:52 General: Appears in no apparent distress. comfortable, Behavior is calm, cooperative, ao appropriate for age. Pain: Complains of pain in abdomen Pain currently is 4 out of 10 on a pain scale. Neuro: Level of Consciousness is awake, alert, obeys commands, Oriented to person, place, time, situation, Appropriate for age Moves all extremities. Full function Speech is normal. Cardiovascular: Capillary refill < 3 seconds Patient's skin is warm and dry. Respiratory: Airway is patent Respiratory effort is even, unlabored, Respiratory pattern is regular, symmetrical. GI: Abdomen is non-distended, Bowel sounds present X 4 quads. Reports rectal bleeding, bloody stool, nausea, Pain is 4 out of 10 on a pain scale. : No signs and/or symptoms were reported regarding the genitourinary system. EENT: No signs and/or symptoms were reported regarding the EENT system. Derm: Skin is intact, Skin is pink, warm \T\ dry. normal, Skin temperature is warm. Musculoskeletal: Circulation, motion, and sensation intact. Range of motion: limited in all extremities, Swelling present in right leg and left leg. 05:52 Reassessment: Patient appears in no apparent distress at this time. Patient and/or ao family updated on plan of care and expected duration. Pain level reassessed. Patient is alert, oriented x 3, equal unlabored respirations, skin warm/dry/pink. 07:00 Reassessment: Patient and/or family updated on plan of care and expected duration. Pain jl7 level reassessed. Patient is alert, oriented x 3, equal unlabored respirations, skin warm/dry/pink. 08:00 Reassessment: Patient appears in no apparent distress at this time. No changes from jl7 previously documented assessment. Patient and/or family updated on plan of care and expected duration. Pain level reassessed. Patient is alert, oriented x 3, equal unlabored respirations, skin warm/dry/pink. 09:00 Reassessment: Pt's left AC IV infiltrated, IV removed at this time. jl7 Vital Signs: 04:44 BP 152 / 72; Pulse 96; Resp 18; Temp 100.3(O); Pulse Ox 98% on R/A; Weight 50.35 kg ao (R); Height 4 ft. 11 in. (149.86 cm); Pain 4/10; 05:52 BP 103 / 63; Pulse 90; Resp 18; Pulse Ox 97% ; Pain 0/10; ao 07:00 BP 132 / 64; Pulse 87; Resp 16 S; Pulse Ox 99% on R/A; jl7 08:00 BP 143 / 63; Pulse 89; Resp 16 S; Pulse Ox 99% on R/A; jl7 08:49 BP 152 / 72; Pulse 91; Resp 16 S; Pulse Ox 97% on R/A; jl7 10:21 BP 151 / 73; Pulse 90; Resp 16 S; Temp 99.2(O); Pulse Ox 97% on R/A; jl7 04:44 Body Mass Index 22.42 (50.35 kg, 149.86 cm) ao ED Course: 04:34 Patient arrived in ED. ds1 04:34 Bharti Pollock MD is Private Physician. ds1 04:35 Juan Pablo Valle MD is Attending Physician. pkl 04:44 Triage completed. ao 04:45 Arm band placed on right wrist. Patient placed in an exam room, on a stretcher, on ao pulse oximetry, Patient notified of wait time. 04:54 Patient has correct armband on for positive identification. Pulse ox on. NIBP on. ao 05:01 Inserted saline lock: 20 gauge in left antecubital area, using aseptic technique. ao ,using aseptic technique. Ultrasound IV guided Blood collected. 05:20 First set of blood cultures drawn. ao 05:26 Ahsan Newell, RN is Primary Nurse. ao 05:37 X-ray completed. Portable x-ray completed in exam room. Patient tolerated procedure kw well. 05:37 XRAY Chest (1 view) In Process Unspecified. EDMS 05:48 Second set of blood cultures drawn. EKG done, by ED staff, reviewed by Juan Pablo Valle MD. ao 06:46 Bharti Pollock MD is Hospitalizing Provider. pkl 07:05 Report given to GUME Thornton. ao 07:15 Cleaned of incontinence. jl7 08:00 Diet tray given. jl7 08:45 Assisted to bathroom. jl7 08:47 Norberto Leo, GUME is Primary Nurse. jl7 09:40 No provider procedures requiring assistance completed. Inserted saline lock: 20 gauge jl7 in left antecubital area, using aseptic technique. ,using aseptic technique. Inserted by GUME Contreras via US. 10:23 Patient admitted, IV remains in place. intact, No redness/swelling at site. jl7 Administered Medications: 05:12 Drug: NS 0.9% 500 ml Route: IV; Rate: bolus; Site: left antecubital; ao 07:07 Follow up: IV Status: Completed infusion; IV Intake: 500ml ao 06:04 Drug: NS 0.9% 1000 ml Route: IV; Rate: 100 ml/hr; Site: left antecubital; ao 07:07 Follow up: IV Status: Infusion continued upon admission ao 06:48 Drug: K-Lyte Effervescent Tablet 25 mEq Route: PO; ao 07:06 Follow up: Response: No adverse reaction ao Intake: 07:07 IV: 500ml; Total: 500ml. ao Outcome: 06:47 Decision to Hospitalize by Provider. pkl 10:22 Admitted to Med/surg accompanied by tech, via wheelchair, room 224, with chart, Report jl7 called to GUME Rai 10:22 Condition: stable 10:22 Discharge instructions given to patient, Instructed on the need for admit, Demonstrated understanding of instructions. 10:44 Patient left the ED. jl7 Signatures: Dispatcher [employer] EDMS Juan Pablo Valle MD MD pkKarina Anderson ds1 Viri Kaplan Alex, RN RN ao Leal, Jahala, Gail Curtis RN, RN RN ea Corrections: (The following items were deleted from the chart) 05:03 05:02 Reassessment: Patient and/or family updated on plan of care and expected ea duration. Pain level reassessed. Patient is alert, oriented x 3, equal unlabored respirations, skin warm/dry/pink. Discharge instructions given to patient, verbalized the understanding of instruction ea 05: 05:03 No provider procedures requiring assistance completed. sahil nino 05:03 Patient did not have IV access during this emergency room visit. sahil nino
[2017-12-20] MEDS ORDERED: ACETAMINOPHEN 500 MG TAB PO PRN (06:51)
--- NOTE | 2017-12-20 07:33 | EKG ---
Test Date: 2017-12-20 Test Time: 06:05:28 Pipe Welder: KANG MEASUREMENT RESULTS: Intervals: Rate: 88 OR: 122 QRSD: 70 QT: 332 QTc: 401 [place]: P: 56 OR: 122 QRS: 11 T: 50 INTERPRETIVE STATEMENTS: Sinus rhythm with sinus arrhythmia with occasional premature ventricular complexes Possible Left atrial enlargement Borderline ECG Compared to ECG 08/13/2017 10:49:30 Sinus tachycardia no longer present Electronically Signed On 12-20-17 07:32:22 CDT by Neri Ward
--- NOTE | 2017-12-20 09:52 | RAD REPORT ---
EXAM DESCRIPTION: RAD - Chest Single View - 12/20/2017 5:37 am CLINICAL HISTORY: Abdominal pain, fever COMPARISON: December 07 TECHNIQUE: AP portable chest image was obtained 0533 hours . FINDINGS: No acute infiltrate. Scarring changes of the lung parenchyma noted. Small granulomas are s een. These are stable findings. Heart and vasculature are normal. No measurable pleural effusion and no pneumothorax. No acute bony abnormality seen. No acute aortic findings suspected. IMPRESSION: No acute cardiopulmonary process. No significant change from comparison.
[2017-12-20] MEDS: NA CHLORIDE 0.9% 1,000 ML IV SCH ×2 (11:19→19:40)
[2017-12-20] MEDS: VANCOMYCIN ORAL SOLN 250 MG/5 ML OSYR PO SCH ×2 (12:08→19:41)
[2017-12-20] MEDS ORDERED: PROAIR IH PRN (14:10)
[2017-12-20] MEDS ORDERED: HOME MED 1 EA UNK (Ondansetron Hcl [Zofran] 4 MG) PO PRN (14:10)
[2017-12-20] MEDS ORDERED: ONDANSETRON 4 MG (ODT) TAB PO PRN (14:26)
[2017-12-20 15:32] LABS: Urine Appearance CLEAR; Urine Bilirubin NEGATIVE (NEG); Urine Blood 1+ (NEG); Urine Color YELLOW; Urine Glucose NEGATIVE (NEG); Urine Protein NEGATIVE (NEG); Urine Urobilinogen 0.2 mg/dL (0.2-1.0); Urine pH 5.5 (5.0-7.0)
[2017-12-20 15:55] LABS: Urine Microscopic Reflex ORDER UMIC
[2017-12-20 16:31] VITALS: BMI 22.4
[2017-12-20 16:32] LABS: Urine Bacteria <20 /HPF (<20); Urine Culture Reflex Order REFLEXED
[2017-12-20] MEDS ORDERED: RIVAROXABAN 20 MG TABLET PO SCH (18:00)
[2017-12-20] MEDS: FUROSEMIDE 20 MG TABLET PO SCH (19:41)
[2017-12-20] MEDS: predniSONE 5 MG TAB PO SCH (21:00)
[2017-12-20] MEDS ORDERED: MELATONIN 3 MG TABLET PO SCH (21:00)
[2017-12-20] MEDS ORDERED: FAMOTIDINE 20 MG TAB PO SCH (21:00)
[2017-12-20] MEDS ORDERED: ATORVASTATIN 40 MG TAB PO SCH (21:00)
[2017-12-20] MEDS ORDERED: MELATONIN 3 MG PO SCH (21:00)
[2017-12-21] MEDS: VANCOMYCIN ORAL SOLN 250 MG/5 ML OSYR PO SCH ×3 (00:05→12:09)
[2017-12-21] MEDS: NA CHLORIDE 0.9% 1,000 ML IV SCH ×2 (03:33→12:08)
--- NOTE | 2017-12-21 05:07 | HP ---
Date of Admission: 12/20/2017 Chief Complaint: Diarrhea. History Of Present Illness: This is an 87-year-old female patient with prior history of Clostridium difficile colitis, came into emergency room with 2 to 3 days history of increasing diarrhea. She has had several bowel movements on a day-to-day basis. Her stool is watery. Denies any abdominal pain, nausea, vomiting. She has some bright red blood in stool from time to time. This is nothing new, a nd she has had surgery done in [place] by colorectal surgeon for removal of benign rectal growth this year. 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 She came into the emergency room with this complaint. After she was evaluated, I was contacted req uesting admission to the hospital. I saw her in the emergency room this morning. Medications: List reviewed. Review of Systems: GI: As mentioned above. All other systems reviewed and negative. Allergies: SHE IS LISTED ALLERGIC TO SULFA CAUSING HEADACHE, RITUXIMAB CAUSING LEG SWELLING, PROM ETHAZINE CAUSING HALLUCINATION AND LEG JERKING PROBLEM AND ARM JERKING, METHOTREXATE CAUSING DYSPNEA, MESALAMINE CAUSING SORE THROAT AND HIVES, ADALIMUMAB CAUSING FACE SWELLING, AND ABATACEPT CAUSING BRANT INT PAIN. Past Surgical History: Significant for hysterectomy, appendectomy, cholecystectomy, cataract surgery , removal of benign rectal mass on August 02, 2017 done in [place]. Family History: Significant for parents of old age at age 99 and 95 years. Sister with stroke and hypertension. Social History: Negative for smoking or alcohol use. Past Medical History: Significant for lymphedema of legs, hypertension, hypothyroidism, COPD, chroni c steroid therapy, rheumatoid arthritis, leg edema, hemorrhoid, Clostridium difficile colitis, DVT of leg, and pulmonary embolism diagnosed in August of this year. Physical Examination: Vital Signs: Blood pressure when she first came into emergency room 152/72, pulse 96, respiratory ra te 18, temperature 100.3 degrees Fahrenheit, oxygen saturation 98%, weight 50.35 kg, height 4 feet 11 inches. General: Awake, alert, oriented, not in distress. HEENT: Head atraumatic, normocephalic. Conjunctivae nonerythematous. Sclerae white. Mouth, no thr ush or edema noted. Ears/Nose, no mass, lesion, discharge noted. Neck: Supple. No JVD, lymph nodes, bruit, thyromegaly noted. Lungs: Bilateral good equal air entry. Clear to auscultation. No rhonchi. No rales. Heart: Normal heart sounds, no murmur or gallop. Abdomen: Soft, bowel sounds normal. No guarding, rigidity, tenderness, mass, hepatosplenomegaly, dis tention, or bruit noted. Extremities: Bilateral trace leg edema, nonpitting. Skin: No rash, ulcer, cellulitis. Lymphatics: No lymph node enlargement in neck, supraclavicular, infraclavicular region. Neuro: No focal neurological deficit. Chest: Unremarkable. External Genitalia: Deferred. Rectal: Deferred. Laboratory Data: White count 13.2, hemoglobin 12.8, platelets 261. Sodium 140, potassium 3.4, chlor tonya 104, bicarb 29, BUN 12, creatinine 0.80, glucose 88. Liver function tests unremarkable except to percy bilirubin 1.6. Troponin less than 0.02. Procalcitonin less than 0.05. Lipase 222. Impression: 1.Rule out Clostridium difficile colitis. 2.Rectal bleeding. 3.Hypertension. 4.Chronic obstructive pulmonary disease. 5.Lymphedema, legs. 6.Chronic steroid therapy. 7.Chronic anticoagulation therapy. 8.Pulmonary embolism. 9.Deep venous thrombosis of leg. 10.Hypothyroidism. 11.Rheumatoid arthritis. Plan: We will go ahead and admit the patient to hospital for further evaluation and management of th is problem. We will get a stool for C. diff culture. Start the patient on empiric antibiotic, which is vancomycin 250 mg by mouth 4 times a day. Home medications will be continued per order. I will see her tomorrow for followup. Give IV fluid hydration. Depending on her condition, we will decide if she is stable for discharge tomorrow or not. Details and plan of treatment discussed with the tiffanie higginbotham. ARNOL/MODL Voice ID: [id number]
[2017-12-21 05:53] LABS: Absolute Lymphocytes (CBC) 1.8 K/uL (0.7-4.9); Absolute Monocytes 0.2 K/uL (0.1-1.3); Basophils % 0.4 % (0-1.3); Eosinophils % 0.5 % (0-4.4); Hematocrit 35.1 % (36.0-45.0); Lymphocytes % 22.4 % (15.3-44.8); MCH 32.2 pg (27.0-35.0); MCV 93.2 fL (80-100); MPV 7.2 fL (7.6-11.3); Monocytes % 2.9 % (3.3-12.3); RBC Red Blood Cell Count 3.76 M/uL (3.86-4.86)
[2017-12-21] MEDS ORDERED: LEVOTHYROXINE SOD 0.05 MG TABLET PO SCH (06:00)
[2017-12-21 06:04] LABS: Potassium 4.2 mmol/L (3.5-5.1)
[2017-12-21] MEDS ORDERED: FE SULF/FA/VIT B COMP & C TAB PO SCH (09:00)
[2017-12-21] MEDS ORDERED: SPIRIVA HANDIHALER 18 MCG IH SCH (09:00)
[2017-12-21 09:46] VITALS: O2SAT 95
[2017-12-21] MEDS: FUROSEMIDE 20 MG TABLET PO SCH (10:24)
[2017-12-21] MEDS: predniSONE 5 MG TAB PO SCH (10:24)
[2017-12-21 12:54] VITALS: BP 120/56; TEMP 98.6
[2017-12-21] MEDS: Budesonide/Formoterol Fumarate (Symbicort) 160-4.5 Mcg Inhaler IH SCH ×2 (13:14→13:56)
--- NOTE | 2017-12-22 05:43 | DS ---
Date of Discharge: 12/21/2017 Disposition: Discharged to go home. Physical Examination: HEENT: Unremarkable. Lungs: Clear to auscultation. Heart: Sounds normal. Abdomen: Soft. Bowel sounds normal. No guarding, rigidity, tenderness, or distention. Extremities: Trace leg edema, nonpitting, unchanged. Discharge Medications And Instructions: 1. Continue all prior home medications. 2. Take vancomycin 250 mg p.o. every 6 hours for 10 days. 3. Follow up at my office in 2 weeks. Laboratory Data: White count yesterday 13.2, hemoglobin 12.8, platelets 261. Today, white count 8.2, hemoglobin 12.1, platelets 239. Yesterday, sodium 140, potassium 3.4, chloride 104, bicarb 29, BUN 12, creatinine 0.80, glucose 88. This morning, sodium 143, potassium 4.2, chloride 110, bicarb 29, BUN 6, creatinine 0.70, glucose 86. Hospital Course: 87-year-old female patient who was admitted to the hospital with diarrhea problem. Please see dictated H and P for more information. After patient was evaluated in the emergency room, she was admitted to the hospital. She has history of Clostridium difficile colitis which was last month. It was treated with oral vancomycin and her problem resolved. She came in with this recurrent infection, presented with diarrhea. Stool for C. diff was ordered and patient was started on oral vancomycin 250 mg every 6 hours. This morning when I saw her, she reported that her diarrhea was better. She is tolerating diet very well and feels much better today. Stool C. diff came back positive. The patient was discharged to go home in stable condition with above- mentioned medication and instructions. She does not have any peritoneal signs. Her abdominal exam is unremarkable. Her potassium was corrected. The patient has a history of small amount of bright red blood per rectum from time to time, and there is no evidence of any active bleeding. Hemodynamically, she is stable. Final Diagnoses: 1. Clostridium difficile colitis, recurrent. 2. Rectal bleeding. 3. Hypokalemia. 4. Hypertension. 5. Chronic obstructive pulmonary disease. 6. Lymphedema, legs. 7. Chronic steroid therapy. 8. Chronic anticoagulation therapy. 9. Pulmonary embolism. 10. Deep vein thrombosis, legs. 11. Hypothyroidism. 12. Rheumatoid arthritis. ARNOL/MODL Voice ID: [id number] Report ID: [id number] MTDD
== END 2017-12-21 15:29 | disposition home or self-care (01) ==
LOC: ER 04:32 → ERHOLD 06:55 → 2ND 10:17
PROVIDERS: ADMIT Internal Medicine; ATTEND Internal Medicine
DX: A04.71 Enterocolitis due to Clostridium difficile, recurrent (principal); E87.6 Hypokalemia; I10 Essential (primary) hypertension; K62.5 Hemorrhage of anus and rectum; J44.9 Chronic obstructive pulmonary disease, unspecified; I89.0 Lymphedema, not elsewhere classified; E03.9 Hypothyroidism, unspecified; M06.9 Rheumatoid arthritis, unspecified; Z88.2 Allergy status to sulfonamides; Z86.718 Personal history of other venous thrombosis and embolism; Z86.711 Personal history of pulmonary embolism; Z79.52 Long term (current) use of systemic steroids; Z79.01 Long term (current) use of anticoagulants
CPT/HCPCS: 36415; 71045; 80048; 80076; 81003; 81015; 83605; 83690; 83735; 83880; 84145; 84484; 85025; 85610; 86140; 87040; 87045; 87046; 87086; 87088; 87493; 93005; 96360; 96361; 99285; G0378; J7030; J7512

== ENCOUNTER 2018-01-17 14:12 | Emergency (ER) | payer OTHER ==
--- OUTSIDE RECORDS SUMMARY | 2018-01-17 14:15 | XMS REPORT | Clinical Summary ---
:1930 Author Organization [facility] Address [address] [place] [address] Care Team Providers Name Role Phone Asked, [...] Hiatal hernia ( Primary RPratima, Dx) after 01/16/2017 Family History Medical History Relation Name Comments [...] Taken Blood Pressure 154/73 04/19/2017 11:52 AM TRAFFIC ANALYST Pulse 101 04/19/2017 1:00 PM TRAFFIC ANALYST Temperature 36.7 C (98 F) 04/19/2017 11:52 AM TRAFFIC ANALYST Respiratory Rate 20 04/19/2017 1:00 PM TRAFFIC ANALYST Oxygen Saturation 96% 04/19/2017 2:33 PM TRAFFIC ANALYST Inhaled Oxygen Concentration - - Weight 54.4 kg (120 lb) 04/12/2017 12:01 PM TRAFFIC ANALYST Height 149.9 cm (4' 11") 04/12/2017 12:01 PM TRAFFIC ANALYST Body Mass Index 24.24 04/12/2017 12:01 PM TRAFFIC ANALYST Plan of Treatment Health Maintenance Due Date Last Done Comments SHINGRIX VACCINE (#1) 1981 ZOSTER VACCINE 1991 PNEUMOCOCCAL POLYSACCHARIDE VACCINE AGE 65 AND OVER 1996 PNEUMOCOCCAL-13 1996 INFLUENZA VACCINE 10/12/2017 Implants Implanted Type Area Nursing Education Consultant Device Identifier Expiration Date Model / Serial / Lot Reveal Linq-02/02/2016 Implanted: Qty: 1 on 02/02/2016 Procedures Procedure Name Priority Date/Time Associated Comments Diagnosis US DUPLEX VENOUS Routine 04/19/2017 11:11 Results for this LOWER EXTREMITY AM TRAFFIC ANALYST procedure are in BILATERAL the results section. ZZESTIMATED GFR Routine 04/19/2017 4:00 Results for this AM TRAFFIC ANALYST procedure are in the results section. PHOSPHORUS LEVEL Routine 04/19/2017 4:00 Results for this AM TRAFFIC ANALYST procedure are in the results section. MAGNESIUM LEVEL Routine 04/19/2017 4:00 Results for this AM TRAFFIC ANALYST procedure are in the results section. BASIC METABOLIC PANEL Routine 04/19/2017 4:00 Results for this AM TRAFFIC ANALYST procedure are in the results section. HC COMPLETE BLD COUNT Routine 04/19/2017 3:45 Results for this W/AUTO DIFF AM TRAFFIC ANALYST procedure are in the results section. MAGNESIUM LEVEL Routine 04/18/2017 4:00 Results for this AM TRAFFIC ANALYST procedure are in the results section. ZZESTIMATED GFR Routine 04/18/2017 4:00 Results for this AM TRAFFIC ANALYST procedure are in the results section. PHOSPHORUS LEVEL Routine 04/18/2017 4:00 Results for this AM TRAFFIC ANALYST procedure are in the results section. HC COMPLETE BLD COUNT Routine 04/18/2017 4:00 Results for this W/AUTO DIFF AM TRAFFIC ANALYST procedure are in the results section. BASIC METABOLIC PANEL Routine 04/18/2017 4:00 Results for this AM TRAFFIC ANALYST procedure are in the results section. XR ABDOMEN 1 VW STAT 04/17/2017 1:00 Results for this PORTABLE PM TRAFFIC ANALYST procedure are in the results section. ZZESTIMATED GFR Routine 04/17/2017 4:00 Results for this AM TRAFFIC ANALYST procedure are in the results section. PHOSPHORUS LEVEL Routine 04/17/2017 4:00 Results for this AM TRAFFIC ANALYST procedure are in the results section. HC COMPLETE BLD COUNT Routine 04/17/2017 4:00 Results for this W/AUTO DIFF AM TRAFFIC ANALYST procedure are in the results section. BASIC METABOLIC PANEL Routine 04/17/2017 4:00 Results for this AM TRAFFIC ANALYST procedure are in the results section. XR ABDOMEN 2 VW AP W STAT 04/16/2017 9:23 Results for this UPRIGHT AND/OR AM TRAFFIC ANALYST procedure are in DECUBITUS the results section. HC COMPLETE BLD COUNT Routine 04/16/2017 4:15 Results for this W/AUTO DIFF AM TRAFFIC ANALYST procedure are in the results section. ZZESTIMATED GFR Routine 04/16/2017 4:00 Results for this AM TRAFFIC ANALYST procedure are in the results section. MAGNESIUM LEVEL Routine 04/16/2017 4:00 Results for this AM TRAFFIC ANALYST procedure are in the results section. PHOSPHORUS LEVEL Routine 04/16/2017 4:00 Results for this AM TRAFFIC ANALYST procedure are in the results section. BASIC METABOLIC PANEL Routine 04/16/2017 4:00 Results for this AM TRAFFIC ANALYST procedure are in the results section. XR ABDOMEN 1 VW STAT 04/15/2017 7:50 Results for this PORTABLE AM TRAFFIC ANALYST procedure are in the results section. ZZESTIMATED GFR Routine 04/15/2017 4:00 Results for this AM TRAFFIC ANALYST procedure are in the results section. PHOSPHORUS LEVEL Routine 04/15/2017 4:00 Results for this AM TRAFFIC ANALYST procedure are in the results section. MAGNESIUM LEVEL Routine 04/15/2017 4:00 Results for this AM TRAFFIC ANALYST procedure are in the results section. HC COMPLETE BLD COUNT Routine 04/15/2017 4:00 Results for this W/AUTO DIFF AM TRAFFIC ANALYST procedure are in the results section. BASIC METABOLIC PANEL Routine 04/15/2017 4:00 Results for this AM TRAFFIC ANALYST procedure are in the results section. HC COMPLETE BLD COUNT Routine 04/14/2017 4:10 Results for this W/AUTO DIFF AM TRAFFIC ANALYST procedure are in the results section. ZZESTIMATED GFR Routine 04/14/2017 4:00 Results for this AM TRAFFIC ANALYST procedure are in the results section. BASIC METABOLIC PANEL Routine 04/14/2017 4:00 Results for this AM TRAFFIC ANALYST procedure are in the results section. ECG 12-LEAD STAT 04/13/2017 4:43 Results for this AM TRAFFIC ANALYST procedure are in the results section. ZZESTIMATED GFR Routine 04/13/2017 3:44 Results for this AM TRAFFIC ANALYST procedure are in the results section. BASIC METABOLIC PANEL Routine 04/13/2017 3:44 Results for this AM TRAFFIC ANALYST procedure are in the results section. HC COMPLETE BLD COUNT Routine 04/13/2017 3:00 Results for this W/AUTO DIFF AM TRAFFIC ANALYST procedure are in the results section. XR CHEST 1 VW STAT 04/12/2017 3:48 Results for this PORTABLE PM TRAFFIC ANALYST procedure are in the results section. CENTRAL LINE Routine 04/12/2017 2:01 PM TRAFFIC ANALYST Procedure Note - Madhu Monsivais MD - 04/12/2017 2:00 PM TRAFFIC ANALYST Central line Performed by: MADHU MONSIVAIS Authorized [...] the procedure well with no immediate complications NC AN ELECTIVE ENDOTRACHEAL AIRWAY Routine 04/12/2017 1:58 PM TRAFFIC ANALYST Procedure Note - Madhu Monsivais MD - 04/12/2017 1:58 PM TRAFFIC ANALYST Airway Performed by: MADHU MONSIVAIS Authorized by: [...] HERNIA, 04/12/2017 1:30 PM Hiatal hernia LAPAROSCOPIC TRAFFIC ANALYST PREPARE FRESH FROZEN Timed 04/12/2017 4:00 AM PLASMA TRAFFIC ANALYST PREPARE RBC Timed 04/12/2017 4:00 AM TRAFFIC ANALYST ZZESTIMATED GFR Routine 04/12/2017 4:00 AM Results for this TRAFFIC ANALYST procedure are in the results section. TYPE AND SCREEN Timed 04/12/2017 4:00 AM Results for this TRAFFIC ANALYST procedure are in the results section. PARTIAL THROMBOPLASTIN Routine 04/12/2017 4:00 AM Results for this TIME (PTT) TRAFFIC ANALYST procedure are in the results section. PROTHROMBIN TIME WITH Routine 04/12/2017 4:00 AM Results for this INR TRAFFIC ANALYST procedure are in the results section. BASIC METABOLIC PANEL Routine 04/12/2017 4:00 AM Results for this TRAFFIC ANALYST procedure are in the results section. HC COMPLETE BLD COUNT Routine 04/12/2017 4:00 AM Results for this W/AUTO DIFF TRAFFIC ANALYST procedure are in the results section. XR CHEST 2 VW Routine 04/11/2017 7:49 PM Results for this TRAFFIC ANALYST procedure are in the results section. VANCOMYCIN LEVEL, TROUGH Timed 04/11/2017 3:00 PM Results for this TRAFFIC ANALYST procedure are in the results section. GRAM STAIN Routine 04/11/2017 10:00 AM Results for this TRAFFIC ANALYST procedure are in the results section. SPUTUM CULTURE Routine 04/11/2017 10:00 AM Results for this TRAFFIC ANALYST procedure are in the results section. ZZESTIMATED GFR Routine 04/11/2017 4:15 AM Results for this TRAFFIC ANALYST procedure are in the results section. BASIC METABOLIC PANEL Routine 04/11/2017 4:15 AM Results for this TRAFFIC ANALYST procedure are in the results section. HC COMPLETE BLD COUNT Routine 04/11/2017 4:15 AM Results for this W/AUTO DIFF TRAFFIC ANALYST procedure are in the results section. ZZESTIMATED GFR Routine 04/10/2017 4:15 AM Results for this TRAFFIC ANALYST procedure are in the results section. BASIC METABOLIC PANEL Routine 04/10/2017 4:15 AM Results for this TRAFFIC ANALYST procedure are in the results section. HC COMPLETE BLD COUNT Routine 04/10/2017 4:15 AM Results for this W/AUTO DIFF TRAFFIC ANALYST procedure are in the results section. ZZESTIMATED GFR Routine 04/09/2017 4:51 AM Results for this TRAFFIC ANALYST procedure are in the results section. BASIC METABOLIC PANEL Routine 04/09/2017 4:51 AM Results for this TRAFFIC ANALYST procedure are in the results section. HC COMPLETE BLD COUNT Routine 04/09/2017 4:51 AM Results for this W/AUTO DIFF TRAFFIC ANALYST procedure are in the results section. CT CHEST WO CONTRAST Routine 04/08/2017 8:17 PM Results for this TRAFFIC ANALYST procedure are in the results section. RESPIRATORY PATHOGEN Routine 04/08/2017 10:25 AM Results for this PANEL TRAFFIC ANALYST procedure are in the results section. XR CHEST 2 VW STAT 04/08/2017 9:36 AM Results for this TRAFFIC ANALYST procedure are in the results section. URINALYSIS SCREEN AND Routine 04/08/2017 8:33 AM Results for this MICROSCOPY, WITH REFLEX TRAFFIC ANALYST procedure are in TO CULTURE the results section. URINE CULTURE Routine 04/08/2017 8:33 AM Results for this TRAFFIC ANALYST procedure are in the results section. BLOOD CULTURE, AEROBIC & Routine 04/08/2017 8:18 AM Results for this ANAEROBIC TRAFFIC ANALYST procedure are in the results section. BLOOD CULTURE, AEROBIC & Routine 04/08/2017 8:16 AM Results for this ANAEROBIC TRAFFIC ANALYST procedure are in the results section. ZZESTIMATED GFR Routine 04/08/2017 8:00 AM Results for this TRAFFIC ANALYST procedure are in the results section. COMPREHENSIVE METABOLIC Routine 04/08/2017 8:00 AM Results for this PANEL TRAFFIC ANALYST procedure are in the results section. HC COMPLETE BLD COUNT Routine 04/08/2017 8:00 AM Results for this W/AUTO DIFF TRAFFIC ANALYST procedure are in the results section. HC COMPLETE BLD COUNT Routine 04/07/2017 5:00 AM Results for this W/AUTO DIFF TRAFFIC ANALYST procedure are in the results section. ZZESTIMATED GFR Routine 04/07/2017 4:00 AM Results for this TRAFFIC ANALYST procedure are in the results section. BASIC METABOLIC PANEL Routine 04/07/2017 4:00 AM Results for this TRAFFIC ANALYST procedure are in the results section. CLOSTRIDIUM DIFFICILE Routine 04/06/2017 1:15 PM Results for this TOXIN TRAFFIC ANALYST procedure are in the results section. HC COMPLETE BLD COUNT Routine 04/06/2017 5:15 AM Results for this W/AUTO DIFF TRAFFIC ANALYST procedure are in the results section. ZZESTIMATED GFR Routine 04/06/2017 4:00 AM Results for this TRAFFIC ANALYST procedure are in the results section. BASIC METABOLIC PANEL Routine 04/06/2017 4:00 AM Results for this TRAFFIC ANALYST procedure are in the results section. HC COMPLETE BLD COUNT Routine 04/05/2017 5:45 AM Results for this W/AUTO DIFF TRAFFIC ANALYST procedure are in the results section. ZZESTIMATED GFR Routine 04/05/2017 4:00 AM Results for this TRAFFIC ANALYST procedure are in the results section. BASIC METABOLIC PANEL Routine 04/05/2017 4:00 AM Results for this TRAFFIC ANALYST procedure are in the results section. HC COMPLETE BLD COUNT Routine 04/04/2017 4:48 AM Results for this W/AUTO DIFF TRAFFIC ANALYST procedure are in the results section. ZZESTIMATED GFR Routine 04/04/2017 4:00 AM Results for this TRAFFIC ANALYST procedure are in the results section. BASIC METABOLIC PANEL Routine 04/04/2017 4:00 AM Results for this TRAFFIC ANALYST procedure are in the results section. HC COMPLETE BLD COUNT Routine 04/03/2017 5:23 AM Results for this W/AUTO DIFF TRAFFIC ANALYST procedure are in the results section. ZZESTIMATED GFR Routine 04/03/2017 4:00 AM Results for this TRAFFIC ANALYST procedure are in the results section. HEPATIC FUNCTION PANEL Routine 04/03/2017 4:00 AM Results for this TRAFFIC ANALYST procedure are in the results section. C-REACTIVE PROTEIN Routine 04/03/2017 4:00 AM Results for this TRAFFIC ANALYST procedure are in the results section. PREALBUMIN LEVEL Routine 04/03/2017 4:00 AM Results for this TRAFFIC ANALYST procedure are in the results section. BASIC METABOLIC PANEL Routine 04/03/2017 4:00 AM Results for this TRAFFIC ANALYST procedure are in the results section. NM MYOCARDIAL PERFUSION Routine 04/02/2017 9:47 AM Results for this STRESS ONLY TRAFFIC ANALYST procedure are in the results section. CV STRESS TEST NUCLEAR Routine 04/02/2017 9:47 AM Results for this CARDIO TRAFFIC ANALYST procedure are in the results section. ECG 12-LEAD STAT 04/02/2017 6:09 AM Results for this TRAFFIC ANALYST procedure are in the results section. ZZESTIMATED GFR Routine 04/02/2017 5:30 AM Results for this TRAFFIC ANALYST procedure are in the results section. ALPHA-1 ANTITRYPSIN Routine 04/02/2017 5:30 AM Results for this LEVEL TRAFFIC ANALYST procedure are in the results section. BASIC METABOLIC PANEL Routine 04/02/2017 5:30 AM Results for this TRAFFIC ANALYST procedure are in the results section. HC COMPLETE BLD COUNT Routine 04/02/2017 5:30 AM Results for this W/AUTO DIFF TRAFFIC ANALYST procedure are in the results section. ECHOCARDIOGRAM 2D Routine 04/01/2017 4:35 PM Results for this COMPLETE W MMODE TRAFFIC ANALYST procedure are in SPECTRAL COLOR DOPPLER the results (63512) section. US CAROTID DUPLEX Routine 04/01/2017 4:08 PM Results for this BILATERAL TRAFFIC ANALYST procedure are in the results section. XR CHEST 2 VW Routine 04/01/2017 9:42 AM Results for this TRAFFIC ANALYST procedure are in the results section. ZZESTIMATED GFR Routine 03/31/2017 11:58 PM Results for this TRAFFIC ANALYST procedure are in the results section. COMPREHENSIVE METABOLIC Routine 03/31/2017 11:58 PM Results for this PANEL TRAFFIC ANALYST procedure are in the results section. PARTIAL THROMBOPLASTIN Routine 03/31/2017 11:58 PM Results for this TIME (PTT) TRAFFIC ANALYST procedure are in the results section. PROTHROMBIN TIME WITH Routine 03/31/2017 11:58 PM Results for this INR TRAFFIC ANALYST procedure are in the results section. HC COMPLETE BLD COUNT Routine 03/31/2017 11:58 PM Results for this W/AUTO DIFF TRAFFIC ANALYST procedure are in the results section. CT HEAD EXTERNAL STUDY Routine 03/25/2017 5:50 PM Results for this TRAFFIC ANALYST procedure are in the results section. CT ABD/PELVIC EXTERNAL Routine 03/24/2017 3:30 PM Results for this STUDY TRAFFIC ANALYST procedure are in the results section. after 01/16/2017 Results Pv duplex venous lower extremity (04/19/2017 11:11 AM) Narrative Performed At [facility] Vascular Ultrasound Laboratory Lower Extremity Venous Report [address] [place] [address] Pat.Name:ELVA JENKINS Pat.ID:[id number] .Date: 04/19/2017Refer.MD:AMBROSIO OG MD Exam Time: 10:32:00 AM Study Type:LE Venous Height:59inWeight: 120lb BSA: 1.49 m2 DOBAge:1930,86Y Sex: FEMALESonogrphr: Eliel Ghotra RN, RVS Pat. Stat.:OutpatientTapeVol: PM, CPT - 4: 79951 Echo Event ID:[id number] Order ID:[id number] Reason for Study:Bilateral leg edema. Race:C SUMMARY: [...] Radiology Results In - 04/19/2017 12:[address] [facility] Vascular Ultrasound Laboratory Lower Extremity Venous Report [address]Name: ELVA JENKINS Pat.ID: [id number] .Date: 04/19/2017 Refer.MD: AMBROSIO OG MD Exam Time: 10:32:00 AM Study Type:LE Venous Height: 59in Weight: 120lb BSA: 1.49 m2 Age: 2 1930,86Y Sex: FEMALE Sonogrphr: Eliel Ghotra, RN, RVS Pat. Stat.:Outpatient Tape Vol: PM, [facility] - 4: [id number] Echo Event ID:[id number] Order ID: [id number] Reason for Study:Bilateral leg edema. Race: C [...] PM Tucker Kc MD Performing Organization Address City/[facility]/Zipcode Phone Number [facility] [address] [place] [address] Estimated GFR (04/19/2017 4:00 AM)Only the most recent of19 resultswithin the time period is included. GFR Non Af Amer 79 mL/min/1.73 m2 [facility] DEPARTMENT OF PATHOLOGY AND GENOMIC MEDICINE GFR Af Amer >90 mL/min/1.73 m2 [facility] DEPARTMENT OF Comment: PATHOLOGY AND GENOMIC [...] Americans. Specimen Plasma specimen Performing Organization Address City/[facility]/Zipcode Phone Number [facility] DEPARTMENT OF PATHOLOGY AND [address] [place] [address] [facility] [employer] Phosphorus level (04/19/2017 4:00 AM)Only the most recent of5 resultswithin the time period is included. Phosphorus 2.6 2.4 - 4.5 mg/dL [facility] DEPARTMENT OF PATHOLOGY AND GENOMIC MEDICINE Specimen Plasma specimen Performing Organization Address [facility] Phone Number [facility] DEPARTMENT PATHOLOGY AND [address] [place] [address] Magnesium level (04/19/2017 4:00 AM)Only the most recent of4 resultswithin the time period is included. Magnesium 1.6 1.6 - 2.4 mg/dL [facility] DEPARTMENT OF PATHOLOGY AND GENOMIC MEDICINE Specimen Plasma specimen Performing Organization Address [facility] Phone Number [facility] DEPARTMENT OF PATHOLOGY AND [address] [place] [address] Basic metabolic panel (04/19/2017 4:00 AM)Only the most recent of17 resultswithin the time period is included. Sodium 141 135 - 148 mEq/L [facility] DEPARTMENT OF PATHOLOGY AND GENOMIC MEDICINE Potassium 3.4 (L) 3.5 - 5.0 mEq/L [facility] DEPARTMENT OF PATHOLOGY AND GENOMIC MEDICINE Chloride 100 98 - 112 mEq/L [facility] DEPARTMENT OF PATHOLOGY AND GENOMIC MEDICINE CO2 30 24 - 31 mEq/L [facility] DEPARTMENT OF PATHOLOGY AND GENOMIC MEDICINE Anion gap 11 7 - 15 mEq/L [facility] DEPARTMENT OF PATHOLOGY Comment: AND [facility] Starting from June , anion gap calculation no longer incorporates potassium. Please note the change. BUN 7 (L) 8 - 23 mg/dL [facility] DEPARTMENT OF PATHOLOGY AND GENOMIC MEDICINE Creatinine 0.7 0.5 - 0.9 mg/dL [facility] DEPARTMENT OF PATHOLOGY AND GENOMIC MEDICINE Glucose 117 (H) 65 - 99 mg/dL [facility] DEPARTMENT OF PATHOLOGY AND GENOMIC MEDICINE Calcium 8.2 (L) 8.8 - 10.2 mg/dL [facility] DEPARTMENT OF PATHOLOGY AND GENOMIC MEDICINE Specimen Plasma specimen Performing Organization Address [facility] Phone Number [facility] DEPARTMENT OF PATHOLOGY AND [address] [place] [address] CBC with platelet and differential (04/19/2017 3:45 AM)Only the most recent of19 resultswithin the time period is included. WBC 10.26 4.50 - 11.00 k/uL [facility] DEPARTMENT OF PATHOLOGY AND GENOMIC MEDICINE RBC 2.89 (L) 4.20 - 5.50 m/uL [facility] DEPARTMENT OF PATHOLOGY AND GENOMIC MEDICINE HGB 9.0 (L) 12.0 - 16.0 g/dL [facility] DEPARTMENT OF PATHOLOGY AND GENOMIC MEDICINE HCT 27.2 (L) 37.0 - 47.0 % [facility] DEPARTMENT OF PATHOLOGY AND GENOMIC MEDICINE MCV 94.1 82.0 - 100.0 fL [facility] DEPARTMENT OF PATHOLOGY AND GENOMIC MEDICINE MCH 31.1 27.0 - 34.0 pg [facility] DEPARTMENT OF PATHOLOGY AND GENOMIC MEDICINE MCHC 33.1 31.0 - 37.0 g/dL [facility] DEPARTMENT OF PATHOLOGY AND GENOMIC MEDICINE RDW - SD 48.7 37.0 - 55.0 fL [facility] DEPARTMENT OF PATHOLOGY AND GENOMIC MEDICINE MPV 9.1 8.8 - 13.2 fL [facility] DEPARTMENT OF PATHOLOGY AND GENOMIC MEDICINE Platelet count 305 150 - 400 k/uL [facility] DEPARTMENT OF PATHOLOGY AND GENOMIC MEDICINE Nucleated RBC 0.00 /100 WBC [facility] DEPARTMENT OF PATHOLOGY AND GENOMIC MEDICINE Neutrophils 65.7 39.0 - 69.0 % [facility] DEPARTMENT OF PATHOLOGY AND GENOMIC MEDICINE Lymphocytes 26.3 25.0 - 45.0 % [facility] DEPARTMENT OF PATHOLOGY AND GENOMIC MEDICINE Monocytes 5.9 0.0 - 10.0 % [facility] DEPARTMENT OF PATHOLOGY AND GENOMIC MEDICINE Eosinophils 1.3 0.0 - 5.0 % [facility] DEPARTMENT OF PATHOLOGY AND GENOMIC MEDICINE Basophils 0.3 0.0 - 1.0 % [facility] DEPARTMENT OF PATHOLOGY AND GENOMIC MEDICINE Immature granulocytes 0.5Comment: 0.0 - 1.0 % [facility] DEPARTMENT OF "Immature PATHOLOGY AND GENOMIC granulocytes" MEDICINE (promyelocytes, myelocytes, metamyelocytes) Specimen Blood Performing Organization Address City/State/Zipcode Phone Number [facility] DEPARTMENT OF PATHOLOGY AND [address] [place] [address] Photos to Photos MEDICINE XR Abdomen 1 Vw Portable (04/17/2017 [...] noted. Midline skin digna are also present. [facility]-[id number] Procedure Note Hm Interface, Radiology Results Incoming - 04/17/2017 1:07 PM TRAFFIC ANALYST EXAMINATION: XR ABDOMEN 1 VW PORTABLE CLINICAL HISTORY: Distention COMPARISON: April 16, 2017 IMPRESSION: Diffuse bowel distention, most pronounced in the right colon, is without significant change. The cecum measures approximately 7.5 cm. This is suggestive of ileus. Left femoral line is again noted. Midline skin digna are also present. [facility]-[id number] Performing Organization Address [facility] Phone Number [facility] [address] [place] [address] XR Abdomen 2 Vw Ap W Upright [...] base with a tiny left pleural effusion. [facility]-[id number] Procedure Note [facility], Radiology Results Incoming - 04/16/2017 9:31 AM TRAFFIC ANALYST EXAMINATION: XR ABDOMEN 2 VW AP W [...] base with a tiny left pleural effusion. [facility]-[id number] Performing Organization Address [facility]/Zipcode Phone Number [facility] [address] [place] [address] ECG 12 lead (04/13/2017 4:43 AM)Only the most recent of2 resultswithin the time period is included. Ventricular rate 112 [facility] Atrial rate 112 [facility] NC interval 122 [facility] QRSD interval 72 [facility] QT interval 330 [facility] QTC interval 450 [facility] P axis 1 55 [facility] QRS axis 1 21 [facility] T wave axis 40 [facility] EKG impression Sinus tachycardia-Otherwise normal ECG-In [facility] automated comparison with ECG of 02-APR-2017 06:09,-No significant change was found- Performing Organization Address [facility] Phone Number [facility] [address] [place] [address] XR Chest 1 Vw Portable (04/12/2017 3:48 PM) Narrative Performed At Examination:XR CHEST 1 VW PORTABLE [facility] Clinical history:"Attempted central line placements" Comparison:None IMPRESSION: Lungs are clear. Heart size is within normal limits. Bones are osteopenic. Left cervical calcifications are seen. [id number] Procedure Note Interface, Radiology Results Incoming - 04/12/2017 4:14 PM TRAFFIC ANALYST Examination: XR CHEST 1 VW PORTABLE Clinical history: "Attempted central line placements" Comparison: None IMPRESSION: Lungs are clear. Heart size is within normal limits. Bones are osteopenic. Left cervical calcifications are seen. [id number] Performing Organization Address [facility] Phone Number [facility] [address] [place] [address] Partial thromboplastin time, activated (04/12/2017 4:00 AM)Only the most recent of2 resultswithin the time period is included. PTT 25.6 23.0 - 36.0 sec [facility] DEPARTMENT OF PATHOLOGY Comment: AND [employer] PTT therapeutic range for unfractionated heparin is 61.0-112.0 seconds which corresponds to Anti-Xa 0.3-0.7 U/ml. Specimen Blood Performing Organization Address [facility] Phone Number [facility] DEPARTMENT OF PATHOLOGY AND [address] [place] [address] [employer] Prothrombin time with INR (04/12/2017 4:00 AM)Only the most recent of2 resultswithin the time period is included. Prothrombin time 13.2 12.0 - 15.0 sec [facility] DEPARTMENT OF PATHOLOGY AND GENOMIC MEDICINE INR 1.0 [facility] DEPARTMENT OF Comment: PATHOLOGY AND GENOMIC The International Normalized Ratio (INR) is a therapeutic MEDICINE monitoring tool for patients who are stable on oral anticoagulant therapy. An INR of 2.0-3.0 is suggested for deep vein thrombosis/pulmonary embolism. Specimen Blood Performing Organization Address City/State/Zipcode Phone Number [facility] DEPARTMENT OF PATHOLOGY AND [address] [place] [phone] GENOMIC MEDICINE Type and screen (04/12/2017 4:00 AM) ABO grouping A [facility] DEPARTMENT OF PATHOLOGY AND GENOMIC MEDICINE Rh type POS [facility] DEPARTMENT OF PATHOLOGY AND GENOMIC MEDICINE Antibody screen (gel) NEG [facility] DEPARTMENT OF PATHOLOGY AND GENOMIC MEDICINE Specimen Blood Performing Organization Address [facility] Phone Number [facility] DEPARTMENT OF PATHOLOGY AND [address] [place], [place] [phone] GENOMIC MEDICINE XR Chest 2 Vw (04/11/2017 [...] lower lobe parenchymal infiltrates. No pleural effusion. [facility]-[id number] Procedure Note Interface, Radiology Results Incoming - 04/11/2017 8:47 PM TRAFFIC ANALYST Examination: Chest 2 views CLINICAL HISTORY: COPD Emphysema COMPARISON: None. FINDINGS: The heart is not enlarged. There is a large retrocardiac hiatal hernia. IMPRESSION: . There is better aeration of both lungs when compared to a recent CT scan from 04/08/2017 with a most complete resolution of right lower lobe parenchymal infiltrates. No pleural effusion. [facility]-[id number] Performing Organization Address City/[facility]/Zipcode Phone Number [facility] [address] [place] [address] Vancomycin level, trough (04/11/2017 3:00 PM) Vancomycin, trough 7.1 (L) 10.0 - 20.0 ug/mL [facility] DEPARTMENT OF Comment: PATHOLOGY AND GENOMIC Therapeutic Ranges: MEDICINE Peak 30.0 - 40.0 ug/mL Vypqdi74.0 - 20.0 ug/mL Specimen Serum Performing Organization Address City/[facility]oks Phone Number [facility] DEPARTMENT OF PATHOLOGY AND [address] [place] [address] Sputum culture (04/11/2017 10:00 AM) Sputum culture isolate No normal oral jamal isolated. (A) [facility] DEPARTMENT OF Comment: PATHOLOGY AND GENOMIC Specimen Information MEDICINE Specimen Source: Sputum Specimen Site: Expectorated Sputum culture isolate Amber albicans [facility] DEPARTMENT OF Occasional PATHOLOGY AND GENOMIC The performance characteristics of this assay on this isolate MEDICINE were validated by the Microbiology Laboratory at [facility].This source has not been approved by the U.S. Food and Drug Administration.The results are not intended to be used as the sole means for clinical diagnosis or patient management.The Microbiology Laboratory is authorized under the clinical Laboratory Improvement Amendments of 1988 (CLIA-88) to perform high complexity testing. The performance characteristics of this assay on this isolate were validated by the Microbiology Laboratory at [facility].This source has not been approved by the U.S. Food and Drug Administration.The results are not intended to be used as the sole means for clinical diagnosis or patient management.The Microbiology Laboratory is authorized under the clinical Laboratory Improvement Amendments of 1988 (CLIA-88) to perform high complexity testing. (A) Specimen Sputum - Expectorated Performing Organization Address [facility] Phone Number [facility] DEPARTMENT OF PATHOLOGY AND [address] [place] [address] Gram stain (04/11/2017 10:00 AM) Gram stain isolate No WBC's [facility] DEPARTMENT OF PATHOLOGY Few epithelial cells AND GENOMIC MEDICINE No organisms seen Comment: Specimen Information Specimen Source: Sputum Specimen Site: Expectorated Specimen Sputum - Expectorated Performing Organization Address City/[facility] Phone Number [facility] DEPARTMENT OF PATHOLOGY AND [address] [place] [phone] [place] [address] CT Chest Wo Contrast (04/08/2017 8:17 PM) [...] irregular nodules most compatible with inflammatory change. [facility]-[id number] Procedure Note Interface, Radiology Results Incoming - 04/08/2017 8:27 PM TRAFFIC ANALYST EXAMINATION: CT CHEST WO CONTRAST CLINICAL HISTORY: [...] irregular nodules most compatible with inflammatory change. [facility]-[id number] Performing Organization Address City/State/Zipcode Phone Number [facility] [address] [place] [address] Respiratory pathogen panel (04/08/2017 10:25 AM) Respiratory pathogen Negative for all pathogens tested: [facility] DEPARTMENT OF panel Negative for Adenovirus [...] Nares - Not specified Performing Organization Address [facility] Phone Number [facility] DEPARTMENT OF PATHOLOGY [address] [address] Photos to Photos [facility] Urinalysis screen and microscopy, with reflex to culture (04/08/2017 8:33 AM) Specimen site Random void [facility] DEPARTMENT OF PATHOLOGY AND GENOMIC MEDICINE Color, UA Dark Yellow [facility] DEPARTMENT OF PATHOLOGY AND GENOMIC MEDICINE Appearance, UA Clear [facility] DEPARTMENT OF PATHOLOGY AND GENOMIC MEDICINE Specific gravity, UA 1.016 1.001 - 1.035 [facility] DEPARTMENT OF PATHOLOGY AND GENOMIC MEDICINE pH, UA 7.0 5.0 - 8.5 [facility] DEPARTMENT OF PATHOLOGY AND GENOMIC MEDICINE Protein, UA Negative Negative [facility] DEPARTMENT OF PATHOLOGY AND GENOMIC MEDICINE Glucose, UA Negative Negative [facility] DEPARTMENT OF PATHOLOGY AND GENOMIC MEDICINE Ketones, UA Negative Negative [facility] DEPARTMENT OF PATHOLOGY AND GENOMIC MEDICINE Bilirubin, UA Negative Negative [facility] DEPARTMENT OF PATHOLOGY AND GENOMIC MEDICINE Blood, UA Negative Negative [facility] DEPARTMENT OF PATHOLOGY AND GENOMIC MEDICINE Nitrite, UA Negative Negative [facility] DEPARTMENT OF PATHOLOGY AND GENOMIC MEDICINE Urobilinogen, UA 2.0 (A) <2.0 [facility] DEPARTMENT OF PATHOLOGY AND GENOMIC MEDICINE Leukocyte esterase, UA Negative Negative [facility] DEPARTMENT OF PATHOLOGY AND GENOMIC MEDICINE Epithelial cells, UA 1 /HPF [facility] DEPARTMENT OF PATHOLOGY AND GENOMIC MEDICINE WBC, UA 1 0 - 4 /HPF [facility] DEPARTMENT OF PATHOLOGY AND GENOMIC MEDICINE RBC, UA 3 (H) 0 - 2 /HPF [facility] DEPARTMENT OF PATHOLOGY AND GENOMIC MEDICINE Bacteria, UA Few None seen [facility] DEPARTMENT OF PATHOLOGY AND GENOMIC MEDICINE Yeast, UA None seen [facility] DEPARTMENT OF PATHOLOGY AND GENOMIC MEDICINE Yeast with pseudohyphae, UA None seen [facility] DEPARTMENT OF PATHOLOGY [facility] GENOMIC MEDICINE Specimen Urine Performing Organization Address City/[facility]ode Phone Number [facility] DEPARTMENT OF PATHOLOGY AND [address] [place] [phone] [facility] Urine culture (04/08/2017 8:33 AM) Urine culture SEE COMMENTComment: Bacteriuria [facility] DEPARTMENT OF PATHOLOGY screen negative. AND GENOMIC MEDICINE Performing Organization Address City/[facility] Centercode Phone Number [facility] DEPARTMENT OF PATHOLOGY AND [address] [place] [address] [facility] MEDICINE Blood culture, aerobic & anaerobic (04/08/2017 8:18 AM)Only the most recent of2 resultswithin the time period is included. Blood culture isolate No growth after 5 days of incubation. [facility] DEPARTMENT OF Comment: PATHOLOGY AND GENOMIC Specimen Information MEDICINE Specimen Source: Blood Specimen Site: Hand, right Specimen Blood - Hand, right Performing Organization Address City/[facility]/Zipcode Phone Number [facility] DEPARTMENT OF PATHOLOGY AND [address] [place] [address] [facility] Comprehensive metabolic panel (04/08/2017 8:00 AM)Only the most recent of2 resultswithin the time period is included. Sodium 138 135 - 148 mEq/L [facility] DEPARTMENT OF PATHOLOGY AND GENOMIC MEDICINE Potassium 3.7 3.5 - 5.0 mEq/L [facility] DEPARTMENT OF PATHOLOGY AND GENOMIC MEDICINE Chloride 99 98 - 112 mEq/L [facility] DEPARTMENT OF PATHOLOGY AND GENOMIC MEDICINE CO2 28 24 - 31 mEq/L [facility] DEPARTMENT OF PATHOLOGY AND GENOMIC MEDICINE Anion gap 11 7 - 15 mEq/L [facility] DEPARTMENT OF Comment: PATHOLOGY AND GENOMIC Starting from June , anion gap calculation MEDICINE no longer incorporates potassium. Please note the change. BUN 12 8 - 23 mg/dL [facility] DEPARTMENT OF PATHOLOGY AND GENOMIC MEDICINE Creatinine 0.6 0.5 - 0.9 mg/dL [facility] DEPARTMENT OF PATHOLOGY AND GENOMIC MEDICINE Glucose 107 (H) 65 - 99 mg/dL [facility] DEPARTMENT OF PATHOLOGY AND GENOMIC MEDICINE Calcium 8.7 (L) 8.8 - 10.2 mg/dL [facility] DEPARTMENT OF PATHOLOGY AND GENOMIC MEDICINE Protein 5.8 (L) 6.3 - 8.3 g/dL [facility] DEPARTMENT OF Comment: PATHOLOGY AND GENOMIC Viola 4.6-7.0 g/dL MEDICINE 1 week 4.4-7.6 g/dL 7 months-1year5.1-7.3 g/dL 1-2 years5.6-7.5 g/dL >3 years6.0-8.0 g/dL 18-150 6.3-8.3 g/dL Albumin 2.6 (L) 3.5 - 5.0 g/dL [facility] DEPARTMENT OF PATHOLOGY AND GENOMIC MEDICINE A/G ratio 0.8 0.7 - 3.8 [facility] DEPARTMENT OF PATHOLOGY AND GENOMIC MEDICINE Alkaline phosphatase 40 35 - 104 U/L [facility] DEPARTMENT OF PATHOLOGY AND GENOMIC MEDICINE AST 18 10 - 35 U/L [facility] DEPARTMENT OF PATHOLOGY AND GENOMIC MEDICINE ALT 17 5 - 50 U/L [facility] DEPARTMENT OF PATHOLOGY AND GENOMIC MEDICINE Total bilirubin 1.0 0.0 - 1.2 mg/dL [facility] DEPARTMENT OF PATHOLOGY AND GENOMIC MEDICINE Specimen Plasma specimen Performing Organization Address [facility] Phone Number [facility] DEPARTMENT OF PATHOLOGY AND [address] [place] [address] MEDICINE C difficile toxin (04/06/2017 1:15 PM) Clostridium difficile No Clostridium difficle toxin present [facility] DEPARTMENT OF toxin Comment: PATHOLOGY AND GENOMIC Specimen Information MEDICINE Specimen Source: Stool Specimen Site: Nonpreserved Specimen Stool - Nonpreserved Performing Organization Address [facility] Phone Number [facility] DEPARTMENT OF PATHOLOGY AND [address] [place] [address] C-reactive protein (04/03/2017 4:00 AM) CRP <0.30 0.00 - 0.50 mg/dL [facility] DEPARTMENT OF PATHOLOGY AND GENOMIC MEDICINE Specimen Plasma specimen Performing Organization Address [facility] Phone Number [facility] DEPARTMENT OF PATHOLOGY AND [address] [place] [address] Prealbumin level (04/03/2017 4:00 AM) Prealbumin 23 16 - 32 mg/dL [facility] DEPARTMENT OF PATHOLOGY AND GENOMIC MEDICINE Specimen Serum Performing Organization Address [facility] Phone Number [facility] DEPARTMENT OF PATHOLOGY AND [address] [place] [address] Hepatic function panel (04/03/2017 4:00 AM) Albumin 2.7 (L) 3.5 - 5.0 g/dL [facility] DEPARTMENT OF PATHOLOGY AND GENOMIC MEDICINE Total bilirubin 0.6 0.0 - 1.2 mg/dL [facility] DEPARTMENT OF PATHOLOGY AND GENOMIC MEDICINE Bilirubin direct <0.2 0.0 - 0.3 mg/dL [facility] DEPARTMENT OF PATHOLOGY AND GENOMIC MEDICINE Alkaline phosphatase 39 35 - 104 U/L [facility] DEPARTMENT OF PATHOLOGY AND GENOMIC MEDICINE Protein 5.4 (L) 6.3 - 8.3 g/dL [facility] DEPARTMENT OF Comment: PATHOLOGY AND GENOMIC 4.6-7.0 g/dL MEDICINE 1 week 4.4-7.6 g/dL 7 months-1year5.1-7.3 g/dL 1-2 years5.6-7.5 g/dL >3 years6.0-8.0 g/dL 18-150 6.3-8.3 g/dL ALT 20 5 - 50 U/L [facility] DEPARTMENT OF PATHOLOGY AND GENOMIC MEDICINE AST 18 10 - 35 U/L [facility] DEPARTMENT OF PATHOLOGY AND [facility] Specimen Plasma specimen Performing Organization Address City/[facility] Cent[facility]ode Phone Number [facility] DEPARTMENT OF PATHOLOGY AND [address] [place], [place] [phone] [facility] CV stress test (04/02/2017 9:47 AM) Resting HR 89 [facility] Resting BP 134 [facility] Peak MET Achieved 1.0 [facility] Protocol Name [facility] Time in Exercise Phase 00:01:00 [facility] Max Systolic BP 134 [facility] Max Diastolic BP 60 [facility] Max Heart Rate 113 [facility] Max Predicted Heart Rate 135 [facility] Target HR Formula (220 - Age)*100% [facility] Test Indication chest pain [facility] Arrhy During Ex [facility] ECG Interp Before EX [facility] ECG Interp During Ex [facility] Ex Summary Comment [facility] Overall HR Response to [facility] Exercise Overall BP Response To [facility] Exercise Reason for Termination [facility] Stress Test Impression -Waveform interpreted in report [facility] associated with image study. No interpretation is provided as part of this Stress ECG report.-Electronically Signed By Liberty PALOMARES, Eduard ([id number]), pattern keeper Esa Munoz ([id number]) on 04/03/2017 1:32:55 PM Performing Organization Address City/[facility] Cent[facility]ode Phone Number [facility] [address] [place] [address] Nm myocardial perfusion (04/02/2017 9:47 AM) Narrative Performed At [facility] Nuclear Cardiology and Cardiac CT [address] [address] Myocardial Perfusion Imaging Report Stress ECG tracings are available in MUSE, EPIC and CV Web All ECG interpretations are included in this report Pat.Name:ELVA JENKINS Pat.ID:[id number] .Date: 04/02/2017 Refer.MD:KEVIN ANDRE MD Exam Time: 8:46:00 AM Study Type:Myocardial Perfusion Imaging Height:59inWeight: 119lb BSA: 1.48 m2 DOBAge:1930,86Y Sex: FEMALEBP:134/60 HR:89 bpm Nuclear Tech:Mesfin Gifford [facility], [facility]/CASIE NajeraMT Pat. Stat.:Inpatient Room:[facility] Nuclear Event ID:[id number] Order ID:[id number] Reason for Study:Pre-op evaluation, intermediate/high risk patient [...] Radiology Results In - 04/02/2017 11:[address] [facility] Nuclear Cardiology and Cardiac CT [address] [place] [address] Myocardial Perfusion Imaging Report Stress ECG tracings are available in [employer], [employer] and [employer] All ECG interpretations are included in this report Pat.Name: ELVA JENKINS Pat.ID: [id number] .Date: 04/02/2017 Refer.MD: KEVIN ANDRE MD Exam Time: 8:46:00 AM Study Type:Myocardial Perfusion Imaging Height: 59in Weight: 119lb BSA: 1.48 m2 Age: 2 1930,86Y Sex: FEMALE BP: 134/60 HR: 89 bpm Nuclear Tech:CARRIE Carpenter, [facility]/CARRIE Najera Pat. Stat.:Inpatient Room: A748 Nuclear Event ID:[id number] Order ID: [id number] Reason for Study:Pre-op evaluation, intermediate/high risk patient [...] Organization Address City/State/Zipcode Phone Number [facility] [address] [place] [address] Alpha-1 antitrypsin level (04/02/2017 5:30 AM) Alpha-1 antitrypsin 136 90 - 200 mg/dL [facility] DEPARTMENT OF PATHOLOGY AND GENOMIC MEDICINE Specimen Plasma specimen Performing Organization Address City/State/Zipcode Phone Number [facility] DEPARTMENT OF PATHOLOGY AND [address] [place] [address] GENOMIC MEDICINE Echocardiogram complete w contrast and 3D if needed (04/01/2017 4:35 PM) Narrative Performed At [facility]ocardiography Report [address] [facility] [address], [place] [id number] Pat.Name:ELVA JENKINS Pat.ID:[id number] .Date: 04/01/2017 Refer.MD:KEVIN ANDRE MD Exam Time: 1:15:00 PMStudy Type:Routine Echo Height:59inWeight: 119lb BSA: 1.48 m2 DOBAge:1930,86Y Sex: FEMALEBP:140/66 HR:84 bpm Sonogrphr: Lindsay Edwards RDCS; Debra Darden Stat.:Inpatient Room:[address] Study Status:Final Echo Event ID:[id number] Order ID:[id number] Reason for Study:Etiology - Symptoms or conditions [...] RAPof 5 mmHg. MEASUREMENTS: 2D Parasternal [place] LVOT 1.8 cmLA Ds3.5 cm LVIDd3.4 cmIndex2.3 cm/m Ao An1.9 cm LVIDs1.9 cmAo Rtd 3.3 cm Index2.2 cm/m LV%fs 44.1 % LV Rgwr726.6 g(87-129) IVSd 1.5 cmLVM Index 99.7 g/m2 LVPWd1.1 cmRWT0.6 DOPPLER LVOT For Flow LVOT Area2.5 cm2 LVOT SV 66.1 ml ICCUrsZkw274.3 cm/sHR86.5 bpm LVOTpkPG 7.6 mmHgLVOT CO5.7 l/min LVOTmnPG 4 mmHgLVOT CI3.9 l/m/m2 LVOT TVI26 cm Signed 04/01/2017 11:24 PM Sheila Gage MD Procedure Note Interface, Radiology Results In - 04/01/2017 11:24 PM TRAFFIC ANALYST Echocardiography Report [address] [place] [address], [place] [address] Pat.Name: JENKINSELVA Gabi.ID: [id number] .Date: 04/01/2017 Refer.MD: KEVIN ANDRE MD Exam Time: 1:15:00 PM Study Type:Routine Echo Height: 59in Weight: 119lb BSA: 1.48 m2 Age: 2 1930,86Y Sex: FEMALE BP: 140/66 HR: 84 bpm Sonogrphr: Lindsay Edwards RDCS; Debra Darden Stat.:Inpatient Room: [address] Study Status:Final Echo Event ID:[id number] Order ID: [id number] Reason for Study:Etiology - Symptoms or conditions [...] of 5 mmHg. MEASUREMENTS: 2D Parasternal [place] LVOT 1.8 cm LA Ds 3.5 cm [...] TVI 26 cm Signed 04/01/2017 11:24 PM hSeila Gage MD Performing Organization Address City/State/Zipcode Phone Number [facility] [address] [place] [phone] Pv carotid duplex (04/01/2017 4:08 PM) Narrative Performed At [facility] Vascular Ultrasound Laboratory Carotid Artery Duplex Report [address] [facility] [address] [id number] For quality tester purposes, the categorization of the degree of the stenosis of this exam is based on criteria described in the IAC carotid stenosis grading white paper( www.intersocietal.org/Vascular) and Reyes Avery., Denny Oliveira., et al. Carotid artery stenosis: campbell-scale and Doppler US diagnosis--Society of Radiologists in Ultrasound Consensus Conference. Radiology. 2003 Nov; 229(2):340-6. Pat.Name:ELVA JENKINS Pat.ID:[id number] .Date: 04/01/2017 Exam Time: 2:54:00 PM Study Type:Carotid DOBAge:1930,86Y Sex: FEMALESonogrphr: Levi Nielsen, RVT, [facility] Pat. Stat.:Inpatient Room:[address] TapeVol: HARDIK, CPT - 4: 28012 Echo Event ID:[id number] Order ID:[id number] Reason for Study:Preop. PMH of HTN, COPD, [...] EDV24.3 cm/s Right ICA Mid ICA Mid [id number] cm/[place] Mid EDV 32.1 cm/s Right ICA [...] Radiology Results In - 04/01/2017 4:[address] [facility] Vascular Ultrasound Laboratory Carotid Artery Duplex Report [address] [place] [address] For quality tester purposes, the categorization of the degree of the stenosis of this exam is based on criteria described in the IAC carotid stenosis grading white paper( www.intersocietal.org/Vascular) and Reyes Avery., Denny Oliveira., et al. Carotid artery stenosis: campbell-scale and Doppler US diagnosis--Society of Radiologists in Ultrasound Consensus Conference. Radiology. 2003 Nov; 229(2):340-6. Pat.Name: ELVA JENKINS Pat.ID: [id number] .Date: 04/01/2017 Exam Time: 2:54:00 PM Study Type:Carotid Age: 2 1930,86Y Sex: FEMALE Sonogrphr: Levi Nielsen RVT, [place] Pat. Stat.:Inpatient Room: [address] Tape Vol: HARDIK, CPT - 4: 895[address] Echo Event ID:[id number] Order ID: [id number] Reason for Study:Preop. PMH of HTN, COPD, [...] PM Tucker Kc MD Performing Organization Address [facility] Phone Number [facility] [address] [place] [address] CT Head External Study (03/25/2017 5:50 PM) Narrative Performed At This exam was not acquired at a [employer] facility and has not been [facility] interpreted by a [employer] Provider.The exam was imported into our imaging system for comparisons purposes. Performing Organization Address [facility]/Zipcode Phone Number [facility] [address] [place] [address] CT Abd/Pelvic External Study (03/24/2017 3:30 PM) Narrative Performed At This exam was not acquired at a [facility] facility and has not been [facility] interpreted by a [employer] Provider.The exam was imported into our imaging system for comparisons purposes. Performing Organization Address City/State/Zipcode Phone Number [facility] [address] [place] [address] after 01/16/2017 Insurance Payer Benefit Plan / Group Subscriber ID Type Phone Address [employer] MED[employer] xxxxxxxxx HMO W [phone] [place] [address]
--- OUTSIDE RECORDS SUMMARY | 2018-01-17 14:16 | XMS REPORT ---
:1930 Author Organization [facility] Address [address] [place] [address] Dr. Marsh [address] [place] [id number] Care Team Providers Name Role Phone KIM MCKEON Unavailable Unavailable RICARDO WILSON Unavailable Unavailable Problems This patient has no known problems. Allergies, Adverse Reactions, Alerts This patient has no known allergies or adverse reactions. Medications This patient has no known medications. Results Test Description Test Time Test Comments Text Results Atomic Results Result Comments TISSUE EXAM 2017-09-20 16:22:00 Surgical Pathology Report Case: [id number] Authorizing Provider: Misha Calloway MD Collected: 09/16/2017 1538 Ordering Location: [address] Received: 09/19/2017 0820 Service Pathologist: Larry Cohn MD Specimen: Polyp, Colon - Rectosigmoid, POLYP TAKEN BY HOT SNARE RECTO-SIGMOID, POLYPECTOMY- TUBULAR ADENOMA- CAUTERIZED EDGE, NEGATIVE FOR ADENOMATOUS CHANGE Signing Pathologist Direct Phone Line: [phone] signed by Larry Cohn MD on 09/20/2017 at 4:22 [id number] bleedRectosigmoid colon polypThe specimen is received in [...] Value Reference Range Comments MAGNESIUM (BEAKER) (test pvnj=560) 1.9 mg/dL 1.6-2.6 BASIC METABOLIC [id number] 07:32:00 Test Item Value Reference Range Comments SODIUM (BEAKER) (test 138 meq/L 136-145 lqgg=608) POTASSIUM (BEAKER) (test 4.2 meq/L 3.5-5.1 pktl=364) CHLORIDE (BEAKER) (test 106 meq/L 98-107 buax=079) CO2 (BEAKER) (test 25 meq/L 22-29 nunj=613) BLOOD UREA NITROGEN 6 mg/dL 7-21 (BEAKER) (test xblk=705) CREATININE (BEAKER) (test 0.66 mg/dL 0.57-1.25 mbtg=010) GLUCOSE RANDOM (BEAKER) 76 mg/dL 70-105 (test cndz=013) CALCIUM (BEAKER) (test 8.4 mg/dL 8.4-10.2 yavk=137) EGFR (BEAKER) (test 85 mL/min/1.73 sq m ESTIMATED GFR IS NOT ncuu=4239) ACCURATE CREATININE CLEARANCE IN PREDICTING GLOMERULAR FILTRATION RATE. ESTIMATED GFR IS NOT APPLICABLE FOR DIALYSIS PATIENTS. [id number] 06:42:00 Test Item Value Reference Range Comments PROTIME (BEAKER) (test vbcf=327) 20.8 seconds 11.7-14.7 INR (BEAKER) (test eyfa=340) 1.8 <=5.9 PARTIAL THROMBOPLASTIN TIME (BEAKER) (test 36.1 seconds 22.5-36.0 fkdc=197) RECOMMENDED COUMADIN/WARFARIN INR THERAPY RANGESSTANDARD DOSE: 2.0 - 3.0 Includes: PROPHYLAXIS forvenous thrombosis, systemic embolization; TREATMENT for venous thrombosis and/or pulmonary embolus.HIGH RISK: Target INR is 2.5-3.5 for patients with mechanical heart valves.CBC W/PLT COUNT & AUTO [id number] 06:41:00 Test Item Value Reference Range Comments WHITE BLOOD CELL COUNT (BEAKER) (test fvxn=899) 5.5 K/ L 3.5-10.5 RED BLOOD CELL COUNT (BEAKER) (test ztia=535) 3.52 M/ L 3.93-5.22 HEMOGLOBIN (BEAKER) (test iakj=740) 10.4 GM/DL 11.2-15.7 HEMATOCRIT (BEAKER) (test dgly=494) 33.1 % 34.1-44.9 MEAN CORPUSCULAR VOLUME (BEAKER) (test ifsu=956) 94.0 fL 79.4-94.8 MEAN CORPUSCULAR HEMOGLOBIN (BEAKER) (test 29.5 pg 25.6-32.2 lmga=473) MEAN CORPUSCULAR HEMOGLOBIN CONC (BEAKER) (test 31.4 GM/DL 32.2-35.5 slgx=650) RED CELL DISTRIBUTION WIDTH (BEAKER) (test 19.8 % 11.7-14.4 qnqu=149) PLATELET COUNT (BEAKER) (test skkp=010) 240 K/CU MM 150-450 MEAN PLATELET VOLUME (BEAKER) (test ttye=657) 8.5 fL 9.4-12.3 NUCLEATED RED BLOOD CELLS (BEAKER) (test 0 /100 WBC 0-0 naca=522) NEUTROPHILS RELATIVE PERCENT (BEAKER) (test 43 % ovhe=199) LYMPHOCYTES RELATIVE PERCENT (BEAKER) (test 49 % mwbx=395) MONOCYTES RELATIVE PERCENT (BEAKER) (test 7 % mxnx=724) EOSINOPHILS RELATIVE PERCENT (BEAKER) (test 1 % dpeq=162) BASOPHILS RELATIVE PERCENT (BEAKER) (test 0 % ptpj=144) NEUTROPHILS ABSOLUTE COUNT (BEAKER) (test 2.34 K/ L 1.56-6.13 igrp=373) LYMPHOCYTES ABSOLUTE COUNT (BEAKER) (test 2.68 K/ L 1.18-3.74 dlua=416) MONOCYTES ABSOLUTE COUNT (BEAKER) (test 0.38 K/ L 0.24-0.36 chdu=185) EOSINOPHILS ABSOLUTE COUNT (BEAKER) (test 0.05 K/ L 0.04-0.36 ving=918) BASOPHILS ABSOLUTE COUNT (BEAKER) (test 0.02 K/ L 0.01-0.08 vypf=432) IMMATURE GRANULOCYTES-RELATIVE PERCENT (BEAKER) 0 % 0-1 (test htjo=2291) [id number] 19:07:00 Test Item Value Reference Range Comments MAGNESIUM (BEAKER) (test piwm=352) 1.9 mg/dL 1.6-2.6 BASIC METABOLIC [id number] 19:07:00 Test Item Value Reference Range Comments SODIUM (BEAKER) (test 137 meq/L 136-145 xuri=424) POTASSIUM (BEAKER) (test 3.8 meq/L 3.5-5.1 ptaa=470) CHLORIDE (BEAKER) (test 106 meq/L 98-107 lhox=339) CO2 (BEAKER) (test 23 meq/L 22-29 jlqu=469) BLOOD UREA NITROGEN 6 mg/dL 7-21 (BEAKER) (test gzkq=872) CREATININE (BEAKER) (test 0.64 mg/dL 0.57-1.25 cvgk=790) GLUCOSE RANDOM (BEAKER) 82 mg/dL 70-105 (test zbnt=946) CALCIUM (BEAKER) (test 8.5 mg/dL 8.4-10.2 ewwe=458) EGFR (BEAKER) (test 88 mL/min/1.73 sq m ESTIMATED GFR IS NOT oeyj=8825) ACCURATE CREATININE CLEARANCE IN PREDICTING GLOMERULAR FILTRATION RATE. ESTIMATED GFR IS NOT APPLICABLE FOR DIALYSIS PATIENTS. CBC (HEMOGRAM ONLY)2017-09-16 18:38:00 Test Item Value Reference Range Comments WHITE BLOOD CELL COUNT (BEAKER) (test mtka=775) 6.5 K/ L 3.5-10.5 RED BLOOD CELL COUNT (BEAKER) (test gckn=654) 3.61 M/ L 3.93-5.22 HEMOGLOBIN (BEAKER) (test uatk=706) 10.9 GM/DL 11.2-15.7 HEMATOCRIT (BEAKER) (test lgvr=795) 33.5 % 34.1-44.9 MEAN CORPUSCULAR VOLUME (BEAKER) (test dovd=291) 92.8 fL 79.4-94.8 MEAN CORPUSCULAR HEMOGLOBIN (BEAKER) (test 30.2 pg 25.6-32.2 rvif=381) MEAN CORPUSCULAR HEMOGLOBIN CONC (BEAKER) (test 32.5 GM/DL 32.2-35.5 tlli=653) RED CELL DISTRIBUTION WIDTH (BEAKER) (test 19.8 % 11.7-14.4 uhbh=502) PLATELET COUNT (BEAKER) (test jxvm=658) 239 K/CU MM 150-450 MEAN PLATELET VOLUME (BEAKER) (test xjqc=869) 8.7 fL 9.4-12.3 NUCLEATED RED BLOOD CELLS (BEAKER) (test 0 /100 WBC 0-0 bmnx=843) [id number] 06:56:00 Test Item Value Reference Range Comments PHOSPHORUS (BEAKER) (test gnbs=400) 2.7 mg/dL 2.3-4.7 [id number] 06:56:00 Test Item Value Reference Range Comments MAGNESIUM (BEAKER) (test ltuz=540) 1.9 mg/dL 1.6-2.6 BASIC METABOLIC [id number] 06:56:00 Test Item Value Reference Range Comments SODIUM (BEAKER) (test 139 meq/L 136-145 ytyt=278) POTASSIUM (BEAKER) (test 4.1 meq/L 3.5-5.1 xngm=784) CHLORIDE (BEAKER) (test 107 meq/L 98-107 dygz=549) CO2 (BEAKER) (test 26 meq/L 22-29 puxv=666) BLOOD UREA NITROGEN 11 mg/dL 7-21 (BEAKER) (test ydfu=890) CREATININE (BEAKER) (test 0.73 mg/dL 0.57-1.25 arxc=757) GLUCOSE RANDOM (BEAKER) 107 mg/dL 70-105 (test ydzw=729) CALCIUM (BEAKER) (test 8.5 mg/dL 8.4-10.2 jycs=163) EGFR (BEAKER) (test 76 mL/min/1.73 sq m ESTIMATED GFR IS NOT zsfs=4261) ACCURATE CREATININE CLEARANCE IN PREDICTING GLOMERULAR FILTRATION RATE. ESTIMATED GFR IS NOT APPLICABLE FOR DIALYSIS PATIENTS. HEPATIC FUNCTION [id number] 06:56:00 Test Item Value Reference Range Comments TOTAL PROTEIN (BEAKER) (test etsi=223) 5.2 gm/dL 6.0-8.3 ALBUMIN (BEAKER) (test cpcg=4952) 2.9 g/dL 3.5-5.0 BILIRUBIN TOTAL (BEAKER) (test wndk=620) 0.8 mg/dL 0.2-1.2 BILIRUBIN DIRECT (BEAKER) (test fnxs=381) 0.4 mg/dL 0.1-0.5 ALKALINE PHOSPHATASE (BEAKER) (test uqbe=310) 43 U/L 40-150 AST (SGOT) (BEAKER) (test opmm=573) 13 U/L 5-34 ALT (SGPT) (BEAKER) (test wxuk=717) 10 U/L 6-55 CALCIUM, [id number] 06:36:00 Test Item Value Reference Range Comments CALCIUM IONIZED (BEAKER) (test wqln=285) 1.05 mmol/L 1.12-1.27 PH, BLOOD (BEAKER) (test byal=2938) 7.46 PROTHROMBIN [id number] 06:35:00 Test Item Value Reference Range Comments PROTIME (BEAKER) (test yegp=149) 14.2 seconds 11.7-14.7 INR (BEAKER) (test wyny=968) 1.1 <=5.9 RECOMMENDED COUMADIN/WARFARIN INR THERAPY RANGESSTANDARD DOSE: 2.0 - 3.0 Includes: PROPHYLAXIS forvenous thrombosis, systemic embolization; TREATMENT for venous thrombosis and/or pulmonary embolus.HIGH RISK: Target INR is 2.5-3.5 for patients with mechanical heart valves.CBC W/PLT COUNT & AUTO [id number] 06:25:00 Test Item Value Reference Range Comments WHITE BLOOD CELL COUNT (BEAKER) (test hxbx=390) 9.4 K/ L 3.5-10.5 RED BLOOD CELL COUNT (BEAKER) (test gvnj=833) 3.48 M/ L 3.93-5.22 HEMOGLOBIN (BEAKER) (test mohu=638) 10.0 GM/DL 11.2-15.7 HEMATOCRIT (BEAKER) (test lkbo=376) 31.1 % 34.1-44.9 MEAN CORPUSCULAR VOLUME (BEAKER) (test gygj=397) 89.4 fL 79.4-94.8 MEAN CORPUSCULAR HEMOGLOBIN (BEAKER) (test 28.7 pg 25.6-32.2 tbyx=893) MEAN CORPUSCULAR HEMOGLOBIN CONC (BEAKER) (test 32.2 GM/DL 32.2-35.5 acsw=028) RED CELL DISTRIBUTION WIDTH (BEAKER) (test 18.3 % 11.7-14.4 nsux=738) PLATELET COUNT (BEAKER) (test zhhf=819) 234 K/CU MM 150-450 MEAN PLATELET VOLUME (BEAKER) (test qjce=970) 8.9 fL 9.4-12.3 NUCLEATED RED BLOOD CELLS (BEAKER) (test 0 /100 WBC 0-0 lvmn=893) NEUTROPHILS RELATIVE PERCENT (BEAKER) (test 70 % fgub=278) LYMPHOCYTES RELATIVE PERCENT (BEAKER) (test 24 % oxzt=831) MONOCYTES RELATIVE PERCENT (BEAKER) (test 5 % glzh=262) EOSINOPHILS RELATIVE PERCENT (BEAKER) (test 0 % qlbk=035) BASOPHILS RELATIVE PERCENT (BEAKER) (test 0 % olww=671) NEUTROPHILS ABSOLUTE COUNT (BEAKER) (test 6.54 K/ L 1.56-6.13 nvbm=675) LYMPHOCYTES ABSOLUTE COUNT (BEAKER) (test 2.30 K/ L 1.18-3.74 dzaf=093) MONOCYTES ABSOLUTE COUNT (BEAKER) (test 0.50 K/ L 0.24-0.36 zltx=683) EOSINOPHILS ABSOLUTE COUNT (BEAKER) (test 0.03 K/ L 0.04-0.36 aisf=684) BASOPHILS ABSOLUTE COUNT (BEAKER) (test 0.02 K/ L 0.01-0.08 mmcn=659) IMMATURE GRANULOCYTES-RELATIVE PERCENT (BEAKER) 0 % 0-1 (test sgmz=3949) TISSUE [id number] 14:52:00Surgical Pathology Report Case: [id number] Authorizing Provider: Ricardo Wilson MD Collected: 08/02/2017 1715 Ordering Location: [facility] Endoscopy Received: 08/03/2017 0837 Services Pathologist: Larry Cohn MD Specimen: Rectal, MASS- TAKEN BY ESD, ON WAX, EVALUATE MARGINS RECTAL, 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)- NEGATIVE FOR HIGH GRADE DYSPLASIA OR CARCINOMA- PERIPHERAL MARGINS, NEGATIVE FOR ADENOMATOUS CHANGE Signing Pathologist Direct Phone Line: [phone] signed by Larry Cohn MD on 08/04/2017 at 2:52 [id number] polyp Rectal mass Received in formalin labeled [...] the diagnostic line.CBC W/PLT COUNT & AUTO [id number] 06:19:00 Test Item Value Reference Range Comments WHITE BLOOD CELL COUNT (BEAKER) (test ahvi=946) 15.6 K/ L 3.5-10.5 RED BLOOD CELL COUNT (BEAKER) (test iwkq=609) 3.50 M/ L 3.93-5.22 HEMOGLOBIN (BEAKER) (test gfme=411) 9.9 GM/DL 11.2-15.7 HEMATOCRIT (BEAKER) (test zjqy=568) 31.4 % 34.1-44.9 MEAN CORPUSCULAR VOLUME (BEAKER) (test wqco=790) 89.7 fL 79.4-94.8 MEAN CORPUSCULAR HEMOGLOBIN (BEAKER) (test 28.3 pg 25.6-32.2 aqvo=954) MEAN CORPUSCULAR HEMOGLOBIN CONC (BEAKER) (test 31.5 GM/DL 32.2-35.5 tano=444) RED CELL DISTRIBUTION WIDTH (BEAKER) (test 18.0 % 11.7-14.4 kysj=652) PLATELET COUNT (BEAKER) (test vjob=727) 223 K/CU MM 150-450 MEAN PLATELET VOLUME (BEAKER) (test dsbe=363) 8.7 fL 9.4-12.3 NUCLEATED RED BLOOD CELLS (BEAKER) (test 0 /100 WBC 0-0 rtcc=023) NEUTROPHILS RELATIVE PERCENT (BEAKER) (test 81 % lmhz=859) LYMPHOCYTES RELATIVE PERCENT (BEAKER) (test 15 % hlif=058) MONOCYTES RELATIVE PERCENT (BEAKER) (test 4 % kbxz=842) EOSINOPHILS RELATIVE PERCENT (BEAKER) (test 0 % ngyu=651) BASOPHILS RELATIVE PERCENT (BEAKER) (test 0 % dvhq=615) NEUTROPHILS ABSOLUTE COUNT (BEAKER) (test 12.56 K/ L 1.56-6.13 gykx=756) LYMPHOCYTES ABSOLUTE COUNT (BEAKER) (test 2.36 K/ L 1.18-3.74 kkdi=358) MONOCYTES ABSOLUTE COUNT (BEAKER) (test 0.56 K/ L 0.24-0.36 hjyb=647) EOSINOPHILS ABSOLUTE COUNT (BEAKER) (test 0.03 K/ L 0.04-0.36 fpkz=074) BASOPHILS ABSOLUTE COUNT (BEAKER) (test 0.02 K/ L 0.01-0.08 hrbc=860) IMMATURE GRANULOCYTES-RELATIVE PERCENT (BEAKER) 0 % 0-1 (test cmlw=3035) HEPATIC FUNCTION [id number] 06:15:00 Test Item Value Reference Range Comments TOTAL PROTEIN (BEAKER) (test qoav=986) 4.9 gm/dL 6.0-8.3 ALBUMIN (BEAKER) (test vnld=7473) 2.8 g/dL 3.5-5.0 BILIRUBIN TOTAL (BEAKER) (test molw=667) 1.1 mg/dL 0.2-1.2 BILIRUBIN DIRECT (BEAKER) (test xpqn=679) 0.5 mg/dL 0.1-0.5 ALKALINE PHOSPHATASE (BEAKER) (test lllz=230) 42 U/L 40-150 AST (SGOT) (BEAKER) (test vzqx=442) 15 U/L 5-34 ALT (SGPT) (BEAKER) (test cywb=971) 12 U/L 6-55 BASIC METABOLIC [id number] 06:15:00 Test Item Value Reference Range Comments SODIUM (BEAKER) (test 139 meq/L 136-145 kaer=005) POTASSIUM (BEAKER) (test 4.6 meq/L 3.5-5.1 lknu=845) CHLORIDE (BEAKER) (test 108 meq/L 98-107 hqmw=887) CO2 (BEAKER) (test 25 meq/L 22-29 pfsz=056) BLOOD UREA NITROGEN 13 mg/dL 7-21 (BEAKER) (test wieq=640) CREATININE (BEAKER) (test 0.73 mg/dL 0.57-1.25 ucil=136) GLUCOSE RANDOM (BEAKER) 115 mg/dL 70-105 (test mlgv=428) CALCIUM (BEAKER) (test 8.5 mg/dL 8.4-10.2 fkdu=304) EGFR (BEAKER) (test 76 mL/min/1.73 sq m ESTIMATED GFR IS NOT xtjj=3946) ACCURATE CREATININE CLEARANCE IN PREDICTING GLOMERULAR FILTRATION RATE. ESTIMATED GFR IS NOT APPLICABLE FOR DIALYSIS PATIENTS. PROTHROMBIN [id number] 05:59:00 Test Item Value Reference Range Comments PROTIME (BEAKER) (test bmow=047) 14.6 seconds 11.7-14.7 INR (BEAKER) (test ycbs=351) 1.1 <=5.9 RECOMMENDED COUMADIN/WARFARIN INR THERAPY RANGESSTANDARD DOSE: 2.0 - 3.0 Includes: PROPHYLAXIS forvenous thrombosis, systemic embolization; TREATMENT for venous thrombosis and/or pulmonary embolus.HIGH RISK: Target INR is 2.5-3.5 for patients with mechanical heart valves.URINALYSIS W/ [id number] 14 :53:00 Test Item Value Reference Range Comments COLOR (BEAKER) (test ammn=919) Yellow CLARITY (BEAKER) (test udbt=452) Clear SPECIFIC GRAVITY UA (BEAKER) (test pyfh=314) 1.010 1.001-1.035 PH UA (BEAKER) (test ltjj=206) 5.5 5.0-8.0 PROTEIN UA (BEAKER) (test wkug=352) Negative Negative GLUCOSE UA (BEAKER) (test etkq=629) Negative Negative KETONES UA (BEAKER) (test orun=239) Trace Negative BILIRUBIN UA (BEAKER) (test cwji=180) Negative Negative BLOOD UA (BEAKER) (test erbe=437) Negative Negative NITRITE UA (BEAKER) (test thni=134) Negative Negative LEUKOCYTE ESTERASE UA (BEAKER) (test lmts=930) Negative Negative UROBILINOGEN UA (BEAKER) (test vtvj=904) 0.2 mg/dL 0.2-1.0 RBC UA (BEAKER) (test rrha=706) 1 /HPF WBC UA (BEAKER) (test cvss=124) 3 /HPF MUCUS (BEAKER) (test oalr=1234) Few SQUAMOUS EPITHELIAL (BEAKER) (test rqtx=994) < /HPF HYALINE CASTS (BEAKER) (test mnla=855) 2 /LPF SOURCE(BEAKER) (test fusw=4121) HEPATIC FUNCTION [id number] 06:31:00 Test Item Value Reference Range Comments TOTAL PROTEIN (BEAKER) (test grip=329) 5.2 gm/dL 6.0-8.3 ALBUMIN (BEAKER) (test wbpt=0765) 3.1 g/dL 3.5-5.0 BILIRUBIN TOTAL (BEAKER) (test oeah=000) 1.1 mg/dL 0.2-1.2 BILIRUBIN DIRECT (BEAKER) (test faoq=176) 0.5 mg/dL 0.1-0.5 ALKALINE PHOSPHATASE (BEAKER) (test xbnp=517) 47 U/L 40-150 AST (SGOT) (BEAKER) (test rlvb=259) 20 U/L 5-34 ALT (SGPT) (BEAKER) (test lfhk=503) 15 U/L 6-55 BASIC METABOLIC [id number] 06:31:00 Test Item Value Reference Range Comments SODIUM (BEAKER) (test 139 meq/L 136-145 lvnc=780) POTASSIUM (BEAKER) (test 2.7 meq/L 3.5-5.1 teof=618) CHLORIDE (BEAKER) (test 106 meq/L 98-107 jbtf=413) CO2 (BEAKER) (test 24 meq/L 22-29 iwxn=065) BLOOD UREA NITROGEN 7 mg/dL 7-21 (BEAKER) (test vvwq=008) CREATININE (BEAKER) (test 0.61 mg/dL 0.57-1.25 ufwo=590) GLUCOSE RANDOM (BEAKER) 88 mg/dL 70-105 (test xwzj=319) CALCIUM (BEAKER) (test 8.4 mg/dL 8.4-10.2 pgki=516) EGFR (BEAKER) (test 93 mL/min/1.73 sq m ESTIMATED GFR IS NOT owvr=2312) ACCURATE CREATININE CLEARANCE IN PREDICTING GLOMERULAR FILTRATION RATE. ESTIMATED GFR IS NOT APPLICABLE FOR DIALYSIS PATIENTS. BASIC METABOLIC [id number] 06:30:00 Test Item Value Reference Range Comments SODIUM (BEAKER) (test 136 meq/L 136-145 usht=831) POTASSIUM (BEAKER) (test 3.0 meq/L 3.5-5.1 Specimen slightly fsgc=471) hemolyzed CHLORIDE (BEAKER) (test 106 meq/L 98-107 bdvo=893) CO2 (BEAKER) (test 20 meq/L 22-29 bjif=544) BLOOD UREA NITROGEN 7 mg/dL 7-21 (BEAKER) (test qacb=134) CREATININE (BEAKER) (test 0.61 mg/dL 0.57-1.25 Specimen slightly dtgz=447) hemolyzed GLUCOSE RANDOM (BEAKER) 81 mg/dL 70-105 (test eydv=035) CALCIUM (BEAKER) (test 8.2 mg/dL 8.4-10.2 tdch=336) EGFR (BEAKER) (test 93 mL/min/1.73 sq m ESTIMATED GFR IS NOT amfg=6816) ACCURATE CREATININE CLEARANCE IN PREDICTING GLOMERULAR FILTRATION RATE. ESTIMATED GFR IS NOT APPLICABLE FOR DIALYSIS PATIENTS. CBC W/PLT COUNT & AUTO [id number] 06:25:00 Test Item Value Reference Range Comments WHITE BLOOD CELL COUNT (BEAKER) (test jheb=273) 14.6 K/ L 3.5-10.5 RED BLOOD CELL COUNT (BEAKER) (test ileq=633) 3.75 M/ L 3.93-5.22 HEMOGLOBIN (BEAKER) (test sarg=140) 10.5 GM/DL 11.2-15.7 HEMATOCRIT (BEAKER) (test vmeb=367) 33.1 % 34.1-44.9 MEAN CORPUSCULAR VOLUME (BEAKER) (test wdpc=944) 88.3 fL 79.4-94.8 MEAN CORPUSCULAR HEMOGLOBIN (BEAKER) (test 28.0 pg 25.6-32.2 txmo=466) MEAN CORPUSCULAR HEMOGLOBIN CONC (BEAKER) (test 31.7 GM/DL 32.2-35.5 bqfs=805) RED CELL DISTRIBUTION WIDTH (BEAKER) (test 17.5 % 11.7-14.4 woys=067) PLATELET COUNT (BEAKER) (test yaxy=169) 246 K/CU MM 150-450 MEAN PLATELET VOLUME (BEAKER) (test abgg=399) 8.9 fL 9.4-12.3 NUCLEATED RED BLOOD CELLS (BEAKER) (test 0 /100 WBC 0-0 xfyz=125) NEUTROPHILS RELATIVE PERCENT (BEAKER) (test 88 % pnjx=027) LYMPHOCYTES RELATIVE PERCENT (BEAKER) (test 5 % ztsg=863) MONOCYTES RELATIVE PERCENT (BEAKER) (test 6 % hbbf=658) EOSINOPHILS RELATIVE PERCENT (BEAKER) (test 0 % wkwu=692) BASOPHILS RELATIVE PERCENT (BEAKER) (test 0 % sedd=252) NEUTROPHILS ABSOLUTE COUNT (BEAKER) (test 12.85 K/ L 1.56-6.13 fpch=873) LYMPHOCYTES ABSOLUTE COUNT (BEAKER) (test 0.71 K/ L 1.18-3.74 pxqp=746) MONOCYTES ABSOLUTE COUNT (BEAKER) (test 0.94 K/ L 0.24-0.36 dkri=877) EOSINOPHILS ABSOLUTE COUNT (BEAKER) (test 0.00 K/ L 0.04-0.36 khzh=920) BASOPHILS ABSOLUTE COUNT (BEAKER) (test 0.02 K/ L 0.01-0.08 ifum=157) IMMATURE GRANULOCYTES-RELATIVE PERCENT (BEAKER) 1 % 0-1 (test qioq=8900) PROTHROMBIN [id number] 06:21:00 Test Item Value Reference Range Comments PROTIME (BEAKER) (test iges=927) 13.5 seconds 11.7-14.7 INR (BEAKER) (test tjdv=868) 1.0 <=5.9 RECOMMENDED COUMADIN/WARFARIN INR THERAPY RANGESSTANDARD DOSE: 2.0 - 3.0 Includes: PROPHYLAXIS forvenous thrombosis, systemic embolization; TREATMENT for venous thrombosis and/or pulmonary embolus.HIGH RISK: Target INR is 2.5-3.5 for patients with mechanical heart valves.
--- OUTSIDE RECORDS SUMMARY | 2018-01-17 14:16 | XMS REPORT | Clinical Summary ---
:1930 Author Organization [facility] Address [address] [place] [address] Care Team Providers Name Role Phone Hasmukh Pollock MD Primary Care Provider Allergies Active Allergy Reactions Severity Noted Date [...] Medium 12/05/2015 Headaches, weakness, no Comments) energy Medications Medication Sig Dispensed Refills Start Date End Date Status PARoxetine (PAXIL) Take 40 mg by 0 Active 40 MG tablet mouth daily with dinner . predniSONE Take 5 mg by 0 Active (DELTASONE) 5 MG mouth 2 (two) tablet times daily . cycloSPORINE 1 drop 2 (two) 0 Active (RESTASIS) 0.05 % times daily. ophthalmic emulsion budesonide-formotero Inhale 2 puffs 0 Active l (SYMBICORT) by mouth via 160-4.5 inhaler 2 (two) mcg/actuation times daily. inhaler albuterol HFA Inhale 1 puff 0 Active (VENTOLIN HFA) 90 by mouth via mcg/actuation inhaler every 6 inhaler (six) hours as needed for Wheezing. umeclidinium Inhale 1 puff 0 Active (INCRUSE ELLIPTA) by mouth via 62.5 mcg/actuation inhaler daily . DsDv powder for inhalation furosemide (LASIX) Take 20 mg by 0 Active 20 MG tablet mouth daily . spironolactone Take 25 mg by 0 Active (ALDACTONE) 25 MG mouth 2 (two) tablet times daily. ALPRAZolam (XANAX) Take 0.25 mg by 0 Active 0.25 MG tablet mouth daily with breakfast . levothyroxine Take 50 mcg by 0 Active (SYNTHROID, mouth Every LEVOTHROID) 50 MCG morning on an tablet empty stomach. roflumilast Take by mouth 0 Active (DALIRESP) 500 mcg daily. Tab tablet IRON FUM/FOLIC Take by mouth. 0 Active ACID/MV,MIN 15 (HEMOCYTE-PLUS ORAL) tiotropium (SPIRIVA) Inhale 18 mcg 0 Active 18 mcg inhalation by mouth via capsule inhaler daily. vancomycin Take 125 mg by 0 Active (VANCOCIN) 125 MG mouth 3 (three) capsule times daily with meals. rivaroxaban Take by mouth 0 Active (XARELTO) 20 mg Tab daily with tablet dinner. esomeprazole Take 40 mg by 0 Discontinued (NEXIUM) 40 MG mouth 2 (two) 8 capsule times daily . aspirin 81 MG EC Take 81 mg by 0 Discontinued tablet mouth daily. 8 atorvastatin Take 40 mg by 0 Discontinued (LIPITOR) 40 MG mouth daily. 8 tablet famotidine (PEPCID) Take 20 mg by 0 Discontinued 20 MG tablet mouth daily. 8 melatonin 3 mg Tab Take by mouth. 0 Discontinued tablet 8 polyethylene glycol Take 17 g by 0 Discontinued (GLYCOLAX) 17 gram mouth daily. 8 packet docusate sodium Take 100 mg by 0 Discontinued (COLACE) 100 MG mouth 2 (two) 8 capsule times daily. DEXTRIN (EASY FIBER Take by mouth. 0 Discontinued ORAL) 8 amoxicillin-clavulan Take 1 tablet 10 tablet 0 08/05/2017 ate (AUGMENTIN) by mouth 2 8 875-125 mg per (two) times tablet daily for [address] rectally 30 g 0 08/05/2017 (ANUSOL-HC) 2.5 % 2 (two) times 8 rectal cream daily for 10 days. Active Problems Problem Noted Date C. difficile colitis 09/16/2017 Bilateral pulmonary embolism 09/16/2017 Left leg DVT 09/16/2017 Gastroesophageal reflux disease without esophagitis 08/04/2017 Rectal bleeding 08/03/2017 Hypokalemia 08/03/2017 Other specified hypothyroidism 08/03/2017 Normochromic anemia 08/03/2017 Rectal polyp 08/02/2017 Overview: S/p ESD by Dr. Wilson 07/2017 Arrhythmia 02/02/2016 PVC (premature ventricular contraction) 02/01/2016 TIA (transient ischemic attack) 01/31/2016 Hypothyroidism 01/31/2016 Transient cerebral ischemia, unspecified type 12/05/2015 COPD (chronic obstructive pulmonary disease) GERD (gastroesophageal reflux disease) Anxiety Thyroid disease Encounters Date Type Specialty Care Team Description 09/16/2017 Surgery Gastroenterology Calloway, SIGMOIDOSCOPY,POLYPECT KEV Colon MD 09/16/2017 [facility] Cardiology Rhea Bedoya Bilateral pulmonary embolism ( HCC); - Encounter MD Yamila C. difficile colitis; 09/17/2017 Anthony, Chronic obstructive pulmonary disease, unspecified COPD type (HCC); Martha Blum, Gastroesophageal reflux disease without esophagitis; Hypothyroidism, unspecified type; Deep vein thrombosis (DVT) of left lower extremity, unspecified chronicity, unspecified vein (HCC); Rectal bleeding; Rectal polyp; Normochromic anemia 09/16/2017 Anesthesia Event Gastroenterology Chanelle Reyes, ABRAN 08/02/2017 Surgery Gastroenterology Katie, COLONOSCOPY,SUBMUCOSAL Mohamed RESECTION Katie Mcclelland MD 08/02/2017 [facility] General Internal Otshira, Gastroesophageal reflux disease without esophagitis; - Encounter Medicine [facility] Hypokalemia; 08/05/2017 Katie Mcclelland, Other specified hypothyroidism; Rectal bleeding; Ankit, Rectal polyp MD James 08/02/2017 Anesthesia Event Gastroenterology Abeba Fuchs CRNA 07/29/2017 Hospital Pre-Admission Testing Encounter after 01/16/2017 Social History Tobacco Use Types Packs/Day Years Used Date Never Smoker Smokeless Tobacco: Never Used Alcohol Use Drinks/Week oz/Week Comments No Sex Assigned at Date Recorded Not on file Job Start Date Occupation Industry Not on file Not on file Not on file Travel History Travel Start Travel End No recent travel history available. Last Filed Vital Signs Vital Sign Reading [...] Procedure Name Priority Date/Time Associated Diagnosis Comments RHYTHM STRIP - SCAN 09/20/2017 12:50 PM CDT REPORT OF PROCEDURE 09/19/2017 1:13 - ENDOSCOPY URL PM CDT TRANSFUSION SERVICE 09/17/2017 6:00 REPORT - SCAN PM CDT CBC W/PLT COUNT & Routine 09/17/2017 5:35 Results for this AUTO DIFFERENTIAL AM CDT procedure are in the results section. PT/APTT Routine 09/17/2017 5:35 Results for this AM CDT procedure are in the results section. MAGNESIUM Routine 09/17/2017 5:35 Results for this AM CDT procedure are in the results section. CBC W/PLT COUNT & Routine 09/17/2017 5:35 Results for this AUTO DIFFERENTIAL AM CDT procedure are in the results section. BASIC METABOLIC Routine 09/17/2017 5:35 Results for this PANEL (7) AM CDT procedure are in the results section. TYPE AND SCREEN, Routine 09/16/2017 6:30 Results for this AUTOMATED PM CDT procedure are in the results section. MAGNESIUM STAT 09/16/2017 6:30 Results for this PM CDT procedure are in the results section. BASIC METABOLIC STAT 09/16/2017 6:30 Results for this PANEL (7) PM CDT procedure are in the results section. CBC (HEMOGRAM ONLY) STAT 09/16/2017 6:30 Results for this PM CDT procedure are in the results section. TISSUE EXAM AP Routine 09/16/2017 3:38 Results for this PM CDT procedure are in the results section. ANOSCOPY,HEMORRHOID 09/16/2017 3:00 Gastrointestinal BANDING PM CDT hemorrhage, unspecified gastrointestinal hemorrhage type Special Needs FLEX SIGMOIDOSCOPY WITH ANES SIGMOIDOSCOPY,POLYPECTOMY 09/16/2017 3:00 PM CDT Gastrointestinal hemorrhage, unspecified gastrointestinal hemorrhage type Special Needs FLEX SIGMOIDOSCOPY WITH ANES REPORT OF PROCEDURE 08/08/2017 12:52 - ENDOSCOPY URL PM CDT CBC W/PLT COUNT & Routine 08/05/2017 5:48 Results for this AUTO DIFFERENTIAL AM CDT procedure are in the results section. MAGNESIUM Routine 08/05/2017 5:48 Results for this AM CDT procedure are in the results section. CBC W/PLT COUNT & Routine 08/05/2017 5:48 Results for this AUTO DIFFERENTIAL AM CDT procedure are in the results section. PHOSPHORUS Routine 08/05/2017 5:48 Results for this AM CDT procedure are in the results section. CALCIUM, IONIZED Routine 08/05/2017 5:48 Results for this AM CDT procedure are in the results section. PROTHROMBIN TIME/INR Routine 08/05/2017 5:48 Results for this AM CDT procedure are in the results section. HEPATIC FUNCTION Routine 08/05/2017 5:48 Results for this PANEL AM CDT procedure are in the results section. BASIC METABOLIC Routine 08/05/2017 5:48 Results for this PANEL (7) AM CDT procedure are in the results section. CBC W/PLT COUNT & Routine 08/04/2017 5:26 Results for this AUTO DIFFERENTIAL AM CDT procedure are in the results section. CBC W/PLT COUNT & Routine 08/04/2017 5:26 Results for this AUTO DIFFERENTIAL AM CDT procedure are in the results section. PROTHROMBIN TIME/INR Routine 08/04/2017 5:26 Results for this AM CDT procedure are in the results section. HEPATIC FUNCTION Routine 08/04/2017 5:26 Results for this PANEL AM CDT procedure are in the results section. BASIC METABOLIC Routine 08/04/2017 5:26 Results for this PANEL (7) AM CDT procedure are in the results section. URINALYSIS W/ Routine 08/03/2017 2:35 Results for this MICROSCOPIC PM CDT procedure are in the results section. BASIC METABOLIC Routine 08/03/2017 5:22 Results for this PANEL (7) AM CDT procedure are in the results section. CBC W/PLT COUNT & Routine 08/03/2017 4:57 Results for this AUTO DIFFERENTIAL AM CDT procedure are in the results section. CBC W/PLT COUNT & Routine 08/03/2017 4:57 Results for this AUTO DIFFERENTIAL AM CDT procedure are in the results section. PROTHROMBIN TIME/INR Routine 08/03/2017 4:56 Results for this AM CDT procedure are in the results section. HEPATIC FUNCTION Routine 08/03/2017 4:56 Results for this PANEL AM CDT procedure are in the results section. BASIC METABOLIC Routine 08/03/2017 4:56 Results for this PANEL (7) AM CDT procedure are in the results section. TISSUE EXAM AP Routine 08/02/2017 5:15 Results for this PM CDT procedure are in the results section. COLONOSCOPY,SUBMUCOS 08/02/2017 2:00 Polyp of colon, AL INJECTION PM CDT unspecified part of colon, unspecified type COLONOSCOPY,SUBMUCOS 08/02/2017 2:00 Polyp of colon, AL RESECTION PM CDT unspecified part of colon, unspecified type after 01/16/2017 Results RHYTHM STRIP - SCAN (09/20/2017 12:50 PM CDT) Narrative Performed At REPORT OF PROCEDURE - ENDOSCOPY URL (09/19/2017 1:13 PM CDT) Narrative Performed At TRANSFUSION SERVICE REPORT - SCAN (09/17/2017 6:00 PM CDT) Narrative Performed At PT/aPTT (09/17/2017 5:35 AM CDT) Protime 20.8 (H) 11.7 - 14.7 seconds [facility] INR 1.8 <=5.9 [facility] PTT 36.1 (H) 22.5 - 36.0 seconds [facility] Specimen Blood - Arm, Left Narrative Performed At [facility] RECOMMENDED COUMADIN/WARFARIN INR THERAPY RANGES STANDARD DOSE: 2.0 - 3.0 Includes: PROPHYLAXIS for venous thrombosis, systemic embolization; TREATMENT for venous thrombosis and/or pulmonary embolus. HIGH RISK: Target INR is 2.5-3.5 for patients with mechanical heart valves. Performing Organization Address City/State/Zipcode Phone Number [facility] [address] [address] [phone] CENTER CBC with platelet count + automated diff (09/17/2017 5:35 AM CDT)Only the most recent of4 resultswithin the time period is included. WBC 5.5 3.5 - 10.5 K/L [facility] RBC 3.52 (L) 3.93 - 5.22 M/L [facility] Hemoglobin 10.4 (L) 11.2 - 15.7 GM/DL [facility] Hematocrit 33.1 (L) 34.1 - 44.9 % [facility] MCV 94.0 79.4 - 94.8 fL [facility] MCH 29.5 25.6 - 32.2 pg [facility] MCHC 31.4 (L) 32.2 - 35.5 GM/DL [facility] RDW 19.8 (H) 11.7 - 14.4 % [facility] Platelets 240 150 - 450 K/CU MM [facility] MPV 8.5 (L) 9.4 - 12.3 fL [facility] nRBC 0 0 - 0 /100 WBC [facility] % Neutros 43 % [facility] % Lymphs 49 % [facility] % Monos 7 % [facility] % Eos 1 % [facility] % Baso 0 % [facility] # Neutros 2.34 1.56 - 6.13 K/L [facility] # Lymphs 2.68 1.18 - 3.74 K/L [facility] # Monos 0.38 (H) 0.24 - 0.36 K/L [facility] # Eos 0.05 0.04 - 0.36 K/L [facility] # Baso 0.02 0.01 - 0.08 K/L [facility] Immature Granulocytes-Relative 0 0 - 1 % [facility] Specimen Blood - Arm, Left Performing Organization Address City/[facility]/[place] Phone Number [address] [address] CENTER Magnesium (09/17/2017 5:35 AM CDT)Only the most recent of3 resultswithin the time period is included. Magnesium 1.9 1.6 - 2.6 mg/dL [facility] Specimen Blood - Arm, Left Performing Organization Address [facility] Phone Number [address] [address] [place] Basic metabolic panel (09/17/2017 5:35 AM CDT)Only the most recent of6 resultswithin the time period is included. Sodium 138 136 - 145 meq/L [facility] Potassium 4.2 3.5 - 5.1 meq/L [facility] Chloride 106 98 - 107 meq/L [facility] CO2 25 22 - 29 meq/L [facility] BUN 6 (L) 7 - 21 mg/dL [facility] Creatinine 0.66 0.57 - 1.25 mg/dL [facility] Glucose 76 70 - 105 mg/dL [facility] Calcium 8.4 8.4 - 10.2 mg/dL [facility] EGFR 85Comment: ESTIMATED GFR IS mL/min/1.73 sq m [facility] NOT ACCURATE [facility] CLEARANCE IN PREDICTING GLOMERULAR FILTRATION RATE. ESTIMATED GFR IS NOT APPLICABLE FOR DIALYSIS PATIENTS. Specimen Blood - Arm, Left Performing Organization Address [facility]/[place] Phone Number [facility] [address] [address] [facility]ENTER Type and screen, automated (09/16/2017 6:30 PM CDT) ABO/RH AUTOMATED (BEAKER) A POSITIVE [facility] Ab Scrn NEGATIVE [facility] Specimen Blood Performing Organization Address City/[facility]/[place] Phone Number [address] [address] [phone] CBC (Hemogram only) (09/16/2017 6:30 PM CDT) WBC 6.5 3.5 - 10.5 K/L [facility] RBC 3.61 (L) 3.93 - 5.22 M/L [facility] Hemoglobin 10.9 (L) 11.2 - 15.7 GM/DL [facility] Hematocrit 33.5 (L) 34.1 - 44.9 % [facility] MCV 92.8 79.4 - 94.8 fL [facility] MCH 30.2 25.6 - 32.2 pg [facility] MCHC 32.5 32.2 - 35.5 GM/DL [facility] RDW 19.8 (H) 11.7 - 14.4 % [facility] Platelets 239 150 - 450 K/CU MM [facility] MPV 8.7 (L) 9.4 - 12.3 fL [facility] nRBC 0 0 - 0 /100 WBC [facility] Specimen Blood Performing Organization Address City/[facility]/Zipcode Phone Number [address] [address] [phone] CENTER Tissue Exam (09/16/2017 3:38 PM CDT)Only the most recent of2 resultswithin the time period is included. Case Report Surgical Pathology Report Case: [id number] [facility] Authorizing Provider:Misha Calloway MDCollected: 09/16/2017 1538 [facility] Ordering Location: [address] Received: 09/19/2017 0820 Service Pathologist: Larry Cohn MD Specimen:Polyp, Colon - Rectosigmoid, POLYP TAKEN BY HOT SNARE DIAGNOSIS RECTO-SIGMOID, POLYPECTOMY [facility] - TUBULAR [facility] - CAUTERIZED EDGE, NEGATIVE FOR ADENOMATOUS CHANGE Signing Pathologist Direct Phone Line: [phone] CPT Code(s) 02946 [facility] CLINICAL HISTORY GI bleed [facility] SPECIMEN SOURCE Rectosigmoid colon polyp [facility] GROSS DESCRIPTION The specimen is received in [facility] a formalin-filled container [facility] and labeled with the patient's information and labeled "rectosigmoid colon polyp" and consists of a durham-red polyp measuring 0.8 x 0.8 x 0.3 cm. Resection margin is inked blue. The specimen is trisected, submitted entirely A1. CG/pl MICROSCOPIC DESCRIPTION There is no high grade dysplasia or carcinoma. [facility] Specimen Tissue - Polyp, Colon - Rectosigmoid Performing Organization Address City/[facility]/[place] Phone Number [address] [address] [phone] [place] REPORT OF PROCEDURE - ENDOSCOPY URL (08/08/2017 12:52 PM CDT) Narrative Performed At Calcium, Ionized (08/05/2017 5:48 AM CDT) Calcium, Ion 1.05 (L) 1.12 - 1.27 mmol/L [facility] pH, Blood 7.46 [facility] Specimen Blood - Arm, Right Performing Organization Address [facility]/Zipcode Phone Number [address] [address] CENTER Prothrombin time/INR (08/05/2017 5:48 AM CDT)Only the most recent of3 resultswithin the time period is included. Protime 14.2 11.7 - 14.7 seconds [facility] INR 1.1 <=5.9 [facility] Specimen Blood - Arm, Right Narrative Performed At [facility] RECOMMENDED COUMADIN/WARFARIN INR THERAPY RANGES STANDARD DOSE: 2.0 - 3.0 Includes: PROPHYLAXIS for venous thrombosis, systemic embolization; TREATMENT for venous thrombosis and/or pulmonary embolus. HIGH RISK: Target INR is 2.5-3.5 for patients with mechanical heart valves. Performing Organization Address City/[facility]/[place] Phone Number [address] [address] [phone] CENTER Phosphorus (08/05/2017 5:48 AM CDT) Phosphorus 2.7 2.3 - 4.7 mg/dL [facility] Specimen Blood - Arm, Right Performing Organization Address [facility] Phone Number [address] [address] [phone] CENTER Hepatic function panel (08/05/2017 5:48 AM CDT)Only the most recent of3 resultswithin the time period is included. Protein, Total 5.2 (L) 6.0 - 8.3 gm/dL [facility] Albumin 2.9 (L) 3.5 - 5.0 g/dL [facility] Total Bilirubin 0.8 0.2 - 1.2 mg/dL [facility] Bilirubin, Direct 0.4 0.1 - 0.5 mg/dL [facility] Alkaline Phosphatase 43 40 - 150 U/L [facility] AST 13 5 - 34 U/L [facility] ALT 10 6 - 55 U/L [facility] Specimen Blood - Arm, Right Performing Organization Address [facility]/Zipcode Phone Number [facility] [address] [place] [address] [place] Urinalysis w/Microscopic (08/03/2017 2:35 PM CDT) Color, UA Yellow [facility] Clarity, UA Clear [facility] Specific [place], UA 1.010 1.001 - 1.035 [facility] pH, UA 5.5 5.0 - 8.0 [facility] Protein, UA Negative Negative [facility] Glucose, UA Negative Negative [facility] Ketones, UA Trace (A) Negative [facility] Bilirubin, UA Negative Negative [facility] Blood, UA Negative Negative [facility] Nitrite, UA Negative Negative [facility] Leukocytes, UA Negative Negative [facility] Urobilinogen, UA 0.2 0.2 - 1.0 mg/dL [facility] RBC, UA 1 /HPF [facility] WBC, UA 3 /HPF [facility] Mucus Few [facility] Squam Epithel, UA <1 /HPF [facility] Hyaline Casts, UA 2 /LPF [facility] Specimen Source [facility] Specimen Urine Performing Organization Address City/State/Zipcode Phone Number [facility] [address] [place] [address] CENTER after 01/16/2017 Insurance Payer Benefit Plan / Group Subscriber ID Type Phone Address [employer] - MEDICARE UNITED MEDICARE HMO xxxxxxxxx MGD CARE [facility] - MGD [facility] PPO OPTIONS xxxxxxxxx PPO Advance Directives For more information, please contact:[place] [id number] [place], [place] [phone] Code Status Date Activated Date Inactivated Comments Full Code 09/16/2017 12:30 PM 09/17/2017 3:42 PM This code status was determined by: Patient Full Code 08/02/2017 7:03 PM 08/05/2017 4:49 PM This code status was determined by: Patient Full Code 01/31/2016 1:45 AM 02/02/2016 7:32 PM This code status was determined by: Patient Full Code 12/05/2015 3:33 PM 12/06/2015 7:57 PM This code status was determined by: Patient
[2018-01-17 14:51] LABS: Absolute Lymphocytes (CBC) 2.1 K/uL (0.7-4.9); Absolute Monocytes 0.5 K/uL (0.1-1.3); Absolute Neutrophil 5.8 K/uL (1.8-8.0); Basophils % 0.5 % (0-1.3); Eosinophils % 0.2 % (0-4.4); Lymphocytes % 24.5 % (15.3-44.8); MCH 31.8 pg (27.0-35.0); MPV 7.3 fL (7.6-11.3); Monocytes % 5.8 % (3.3-12.3)
--- NOTE | 2018-01-17 15:04 | RAD REPORT ---
EXAM DESCRIPTION: RAD - Chest Single View - 01/17/2018 2:55 pm CLINICAL HISTORY: SOB Chest pain. COMPARISON: Chest Single View dated 12/20/2017; Chest Pa And Lat (2 Views) dated 12/07/2017; Chest Sin gle View dated 08/13/2017; Chest Single View dated 07/05/2017 FINDINGS: Portable technique limits examination quality. Mild interstitial pulmonary edema suspected. The heart is upper limit of normal in size. No displaced fractures. IMPRESSION: Mild interstitial pulmonary edema.
[2018-01-17 15:12] LABS: ALT/SGPT 29 U/L (12-78); AST/SGOT 17 U/L (15-37); Albumin 3.1 g/dL (3.4-5.0); Alkaline Phosphatase 63 U/L (45-117); BUN Blood Urea Nitrogen 15 mg/dL (7-18); Bicarbonate 27 mmol/L (21-32); Bilirubin Direct 0.4 mg/dL (0-0.2); Bilirubin Total 1.2 mg/dL (0.2-1.0); Glucose Level 179 mg/dL (74-106); Magnesium 2.2 mg/dL (1.8-2.4); NT PRO-BNP 254 pg/mL (<450); Potassium 3.9 mmol/L (3.5-5.1); Protein, Total 6.2 g/dL (6.4-8.2); Sodium Level 136 mmol/L (136-145); Troponin (Emerg Dept Use Only) < 0.02 ng/mL (0.0-0.045)
--- NOTE | 2018-01-17 15:37 | RAD REPORT ---
EXAM DESCRIPTION: CT - Chest For Pe Angio - 01/17/2018 3:30 pm CLINICAL HISTORY: Chest pain. CHEST PAIN COMPARISON: Chest For Pe Angio dated 08/13/2017 TECHNIQUE: CT angiogram of the pulmonary arteries was performed with MIP. All CT scans are performed using dose optimization technique as appropriate and may include automated exposure control or mA/KV adjustment according to patient size. FINDINGS: No evidence of pulmonary thromboembolism. No acute aortic finding demonstrated. Linear subsegmental atelectasis is present in the right base anteriorly. Diffuse COPD is present. No focal infiltrate is detected. No significant pericardial or pleural fluid. No concerning bony finding. IMPRESSION: No evidence of pulmonary thromboembolism. Mild COPD.
[2018-01-17] MEDS ORDERED: IPRATROPIUM BROM 0.5MG/2.5ML ONE (16:04)
[2018-01-17] MEDS ORDERED: ALBUTEROL 2.5 MG/3 ML NEB SOL ONE (16:04)
--- NOTE | 2018-01-17 16:37 | EDPHYS ---
Physician Documentation [facility] Name: Elva Jenkins Age: 87 yrs Sex: Female : 1930 Arrival Date: 01/17/2018 Time: 14:14 Bed 18 Private MD: Bharti Pollock C ED Physician Yayo Garcia HPI: 01/17 17:31 This 87 yrs old Female presents to ER via Ambulatory with complaints of gs Shortness Of Breath. 17:31 The patient has shortness of breath at rest, with light activity. Onset: The gs symptoms/episode began/occurred 2 week(s) ago, and became persistent. Duration: The symptoms are intermittent. The patient's shortness of breath has no apparent modifying factors. Associated signs and symptoms: Pertinent negatives: chest pain, fever. Severity of symptoms: At their worst the symptoms were moderate in the emergency department the symptoms are unchanged. The patient has experienced similar episodes in the past, multiple times. legs swelling us last week no dvt. Historical: - Allergies: 14:17 Asacol; hj 14:17 Demerol; hj 14:17 Humira; hj 14:17 Methotrexate; hj 14:17 Orencia; hj 14:17 Phenergan; hj 14:17 promethazine HCl; hj 14:17 Rituxan; hj 14:17 Sulfazine; hj - Home Meds: 14:17 alprazolam 0.25 mg Oral tab 1 tab BID PRN [Active]; atorvastatin 40 mg Oral tab 1 tab hj once daily [Active]; furosemide 20 mg Oral tab 1 tab 2 times per day [Active]; prednisone 5 mg Oral tab 1 tab 2 times per day [Active]; Spiriva with HandiHaler 18 mcg inhalation CpDv 1 cap once daily [Active]; Xarelto 20 mg Oral tab 1 tab once daily [Active]; famotidine 20 mg Oral tab 1 tab once daily [Active]; - PMHx: 14:17 Anxiety; Arthritis; c-diff 08/13/17; chronic diarrhea; clostridium difficile; colon mass; hj COPD; gastritis; Hernia; Hypothyroidism; rectal mass; TIA; UTI; - PSHx: 14:17 stents; rectal mass; hj - Immunization history:: Adult Immunizations up to date. - Social history:: Smoking status: Patient/guardian denies using tobacco, Patient/guardian denies using alcohol. - Ebola Screening: : Patient negative for fever greater than or equal to 101.5 degrees Fahrenheit, and additional compatible Ebola Virus Disease symptoms Patient denies exposure to infectious person Patient denies travel to an Ebola-affected area in the 21 days before illness onset. ROS: 17:31 All other systems are negative. gs Exam: 17:31 Head/Face: Normocephalic, atraumatic. Eyes: Pupils equal round and reactive to light, gs extra-ocular motions intact. Lids and lashes normal. Conjunctiva and sclera are non-icteric and not injected. Cornea within normal limits. Periorbital areas with no swelling, redness, or edema. ENT: Nares patent. No nasal discharge, no septal abnormalities noted. Tympanic membranes are normal and external auditory canals are clear. Oropharynx with no redness, swelling, or masses, exudates, or evidence of obstruction, uvula midline. Mucous membranes moist. Neck: Trachea midline, no thyromegaly or masses palpated, and no cervical lymphadenopathy. Supple, full range of motion without nuchal rigidity, or vertebral point tenderness. No Meningismus. Chest/axilla: Normal chest wall appearance and motion. Nontender with no deformity. No lesions are appreciated. Cardiovascular: Regular rate and rhythm with a normal S1 and S2. No gallops, murmurs, or rubs. Normal PMI, no JVD. No pulse deficits. Abdomen/GI: Soft, non-tender, with normal bowel sounds. No distension or tympany. No guarding or rebound. No evidence of tenderness throughout. Back: No spinal tenderness. No costovertebral tenderness. Full range of motion. Skin: Warm, dry with normal turgor. Normal color with no rashes, no lesions, and no evidence of cellulitis. Neuro: Awake and alert, GCS 15, oriented to person, place, time, and situation. Cranial nerves II-XII grossly intact. Motor strength 5/5 in all extremities. Sensory grossly intact. Cerebellar exam normal. Normal gait. 17:31 Constitutional: The patient appears alert, awake. 17:31 ECG was reviewed by the Attending Physician. 17:31 Respiratory: mild respiratory distress is noted, Respirations: tachypnea, Breath sounds: rhonchi, that are mild, are heard diffusely. 17:31 Musculoskeletal/extremity: Circulation is intact in all extremities. Edema, 1+ to the left ankle and right ankle is noted, Sensation intact. Vital Signs: 14:18 BP 109 / 52; Pulse 86; Resp 20; Temp 98.1(TE); Pulse Ox 98% on R/A; Weight 54.43 kg; hj Height 4 ft. 11 in. (149.86 cm); Pain 6/10; 16:02 BP 133 / 59; Pulse 95; Resp 22 S; Pulse Ox 97% on R/A; jl7 16:54 BP 145 / 69; Pulse 90; Resp 18 S; Pulse Ox 97% on R/A; jl7 14:18 Body Mass Index 24.24 (54.43 kg, 149.86 cm) hj MDM: 14:58 Patient medically screened. 17:31 Differential diagnosis: CHF exacerbation, Chronic Obstructive Pulmonary Disease gs Myocardial Infarction Pulmonary Embolism. Data reviewed: vital signs, nurses notes. Response to treatment: the patient's symptoms have markedly improved after treatment, and as a result, I will discharge patient. Physician consultation: A Maris PALOMARES regarding patient's condition, and will see patient in office. 01/17 14:21 Order name: Basic Metabolic Panel; Complete Time: 15:24 01/17 14:21 Order name: CBC with Diff; Complete Time: 15:24 01/17 14:21 Order name: LFT's; Complete Time: 15:24 01/17 14:21 Order name: Magnesium; Complete Time: 15:24 01/17 14:21 Order name: NT PRO-BNP; Complete Time: 15:24 01/17 14:21 Order name: PT-INR; Complete Time: 15:24 01/17 14:21 Order name: Troponin (emerg Dept Use Only); Complete Time: 15:24 01/17 14:21 Order name: XRAY Chest (1 view); Complete Time: 15:24 01/17 14:21 Order name: EKG; Complete Time: 14:21 01/17 14:21 Order name: Cardiac monitoring; Complete Time: 14:28 01/17 15:01 Order name: CT Chest For PE Angio; Complete Time: 15:52 01/17 14:21 Order name: EKG - Nurse/Tech; Complete Time: 15:52 01/17 14:21 Order name: IV Saline Lock; Complete Time: 15:51 01/17 14:21 Order name: Labs collected and sent; Complete Time: 15:51 01/17 14:21 Order name: O2 Per Protocol; Complete Time: 14:28 01/17 14:21 Order name: O2 Sat Monitoring; Complete Time: 14:28 EC:31 Rate is 66 beats/min. Rhythm is regular. VA interval is normal. QRS interval is normal. gs QT interval is normal. T waves are Normal. No ST changes noted. Clinical impression: Abnormal EKG without significant change. Interpreted by me. Administered Medications: 16:00 Drug: Albuterol 2.5 mg Route: Inhalation; [facility] 16:30 Follow up: Response: No adverse reaction [facility] 16:00 Drug: AtroVENT Aerosol 0.5 mg Route: Inhalation; [facility] 16:30 Follow up: Response: No adverse reaction [facility] Disposition: 01/17/18 16:36 Discharged to Home. Impression: Chronic obstructive pulmonary disease with (acute) exacerbation. - Condition is Stable. - Discharge Instructions: Chronic Obstructive Pulmonary Disease. - Prescriptions for Prednisone 20 mg Oral Tablet - take 1 tablet by ORAL route once daily for 5 days; 5 tablet. Albuterol Sulfate 2.5 mg /3 mL (0.083 %) Inhalation Solution for Nebulization - inhale 1 unit by NEBULIZATION route every 8 hours As needed; 1 box. - Medication Reconciliation Form, Thank You Letter, Antibiotic Education, Prescription Opioid Use form. - Follow up: Bharti Pollock MD; When: 1 - 2 days; Reason: Re-evaluation by your physician. Signatures: Dispatcher [employer] [facility] Marco Schmidt RN RN hj Leal, Jahala, RN RN jl7 Yayo Garcia MD MD Corrections: (The following items were deleted from the chart) 15:33 15:00 Extrem Venous W Compression [id number] ordered. [facility] 16:56 16:36 01/17/2018 16:36 Discharged to Home. Impression: Chronic obstructive pulmonary jl7 disease with (acute) exacerbation. Condition is Stable. Forms are Medication Reconciliation Form, Thank You Letter, Antibiotic Education, Prescription Opioid Use. Follow up: Bharti Pollock; When: 1 - 2 days; Reason: Re-evaluation by your physician. gs
--- NOTE | 2018-01-17 16:37 | ER ---
Nurse's Notes [facility] Name: Elva Jenkins Age: 87 yrs Sex: Female : 1930 Arrival Date: 01/17/2018 Time: 14:14 Bed 18 Private MD: Bharti Pollock C Diagnosis: Chronic obstructive pulmonary disease with (acute) exacerbation Presentation: 01/17 14:14 Presenting complaint: Patient states: was at Dr[facility] for follow up and i was hj sent here, both my legs are swollen for a week now and i am short of breath;. Transition of care: patient was not received from another setting of care. Onset of symptoms was January 17, 2018. Risk Assessment: Do you want to hurt yourself or someone else? Patient reports no desire to harm self or others. Initial Sepsis Screen: Does the patient meet any 2 criteria? No. Patient's initial sepsis screen is negative. Does the patient have a suspected source of infection? No. Patient's initial sepsis screen is negative. Care prior to arrival: None. 14:14 Method Of Arrival: Ambulatory 14:14 Acuity: TAV[place] 3 hj Triage Assessment: 14:18 General: Appears in no apparent distress. uncomfortable, Behavior is calm, cooperative, hj appropriate for age. Respiratory: Reports shortness of breath Onset: The symptoms/episode began/occurred for a week;, the patient has mild shortness of breath. Historical: - Allergies: 14:17 Asacol; hj 14:17 Demerol; hj 14:17 Humira; hj 14:17 Methotrexate; hj 14:17 Orencia; hj 14:17 Phenergan; hj 14:17 promethazine HCl; hj 14:17 Rituxan; hj 14:17 Sulfazine; hj - Home Meds: 14:17 alprazolam 0.25 mg Oral tab 1 tab BID PRN [Active]; atorvastatin 40 mg Oral tab 1 tab hj once daily [Active]; furosemide 20 mg Oral tab 1 tab 2 times per day [Active]; prednisone 5 mg Oral tab 1 tab 2 times per day [Active]; Spiriva with HandiHaler 18 mcg inhalation CpDv 1 cap once daily [Active]; Xarelto 20 mg Oral tab 1 tab once daily [Active]; famotidine 20 mg Oral tab 1 tab once daily [Active]; - PMHx: 14:17 Anxiety; Arthritis; c-diff 08/13/17; chronic diarrhea; clostridium difficile; colon mass; hj COPD; gastritis; Hernia; Hypothyroidism; rectal mass; TIA; UTI; - PSHx: 14:17 stents; rectal mass; hj - Immunization history:: Adult Immunizations up to date. - Social history:: Smoking status: Patient/guardian denies using tobacco, Patient/guardian denies using alcohol. - Ebola Screening: : Patient negative for fever greater than or equal to 101.5 degrees Fahrenheit, and additional compatible Ebola Virus Disease symptoms Patient denies exposure to infectious person Patient denies travel to an Ebola-affected area in the 21 days before illness onset. Screenin:17 Abuse screen: Denies threats or abuse. Denies injuries from another. Nutritional hj screening: No deficits noted. Tuberculosis screening: No symptoms or risk factors identified. Fall Risk None identified. Assessment: 14:17 Pain: Complains of pain in abdomen. Cardiovascular: Rhythm is. Respiratory: Airway is hj patent Respiratory effort is even, labored, Respiratory pattern is regular, 15:00 General: Appears in no apparent distress. uncomfortable, Behavior is cooperative, jl7 anxious. Pain: Denies pain. Neuro: Level of Consciousness is awake, alert, obeys commands, Oriented to person, place, time, situation. Cardiovascular: Heart tones S1 S2 present Patient's skin is warm and dry. Respiratory: Airway is patent Respiratory effort is even, labored, Respiratory pattern is symmetrical, tachypnea Breath sounds are clear in right upper lobe and left upper lobe. GI: No signs and/or symptoms were reported involving the gastrointestinal system. : No signs and/or symptoms were reported regarding the genitourinary system. EENT: No signs and/or symptoms were reported regarding the EENT system. Derm: Skin is pink, warm \T\ dry. 16:00 Reassessment: Patient appears in no apparent distress at this time. Patient and/or jl7 family updated on plan of care and expected duration. Pain level reassessed. Patient is alert, oriented x 3, equal unlabored respirations, skin warm/dry/pink. Vital Signs: 14:18 BP 109 / 52; Pulse 86; Resp 20; Temp 98.1(TE); Pulse Ox 98% on R/A; Weight 54.43 kg; hj Height 4 ft. 11 in. (149.86 cm); Pain 6/10; 16:02 BP 133 / 59; Pulse 95; Resp 22 S; Pulse Ox 97% on R/A; jl7 16:54 BP 145 / 69; Pulse 90; Resp 18 S; Pulse Ox 97% on R/A; jl7 14:18 Body Mass Index 24.24 (54.43 kg, 149.86 cm) hj ED Course: 14:14 Patient arrived in ED. as 14:14 Bharti Pollock MD is Private Physician. as 14:15 Triage completed. hj 14:18 Arm band placed on right wrist. hj 14:18 Patient has correct armband on for positive identification. Placed in gown. Bed in low hj position. Call light in reach. Side rails up X 1. Adult w/ patient. 14:20 Yayo Garcia MD is Attending Physician. gs 14:39 Initial lab(s) drawn, by nj, sent to lab. Inserted saline lock: 22 gauge in left iw antecubital area, using aseptic technique. Blood collected. 14:43 EKG done, by reliability technician. reviewed by Yayo Garcia MD. 3 14:56 XRAY Chest (1 view) In Process Unspecified. EDMS 15:00 conveyor monitor on. Pulse ox on. NIBP on. Warm blanket given. jl7 15:[address] vr 15:24 Norberto Leo, RN is Primary Nurse. jl7 15:[address] vr 15:31 CT Chest For PE Angio In Process Unspecified. EDMS 16:36 Bharti Pollock MD is Referral Physician. gs 16:55 No provider procedures requiring assistance completed. IV discontinued, intact, jl7 bleeding controlled, No redness/swelling at site. Pressure dressing applied. Administered Medications: 16:00 Drug: Albuterol 2.5 mg Route: Inhalation; jl7 16:30 Follow up: Response: No adverse reaction jl7 16:00 Drug: AtroVENT Aerosol 0.5 mg Route: Inhalation; jl7 16:30 Follow up: Response: No adverse reaction jl7 Outcome: 16:36 Discharge ordered by . gs 16:55 Discharged to home ambulatory. jl7 16:55 Condition: stable 16:55 Discharge instructions given to patient, family, Instructed on discharge instructions, follow up and referral plans. medication usage, Demonstrated understanding of instructions, follow-up care, medications, Prescriptions given X 2. 16:56 Patient left the ED. jl7 Signatures: Dispatcher [employer] Ivana Hernandez Irene, RN Alise Wallace Henry, RN RN hj Leal, Jahala, RN RN jl7 Yayo Garcia MD MD gs Montes, Shakira 3 Corrections: (The following items were deleted from the chart) 14:19 14:17 Pain: Denies pain. roc
[2018-01-17 17:15] VITALS: TEMP 98.1
[2018-01-17 17:16] VITALS: O2SAT 97
[2018-01-17 17:17] VITALS: BP 145/69
--- NOTE | 2018-01-17 18:04 | EKG ---
Test Date: 2018-01-17 Test Time: 14:41:47 Manager Estate: JACQUE MEASUREMENT RESULTS: Intervals: Rate: 66 AR: 122 QRSD: 76 QT: 374 QTc: 392 [place]: P: 59 AR: 122 QRS: 10 T: 43 INTERPRETIVE STATEMENTS: Normal sinus rhythm Possible Left atrial enlargement Borderline ECG Compared to ECG 12/20/2017 06:05:28 Sinus arrhythmia no longer present Ventricular premature complex(es) no longer present Electronically Signed On 01-17-18 18:02:56 PATIENT SUPPORT ASSISTANT by Kel Ro
== END 2018-01-17 16:56 | disposition home or self-care (01) ==
LOC: ER 14:12
DX: J44.1 Chronic obstructive pulmonary disease with (acute) exacerbation (principal); F41.9 Anxiety disorder, unspecified; E03.9 Hypothyroidism, unspecified; Z79.01 Long term (current) use of anticoagulants; Z88.2 Allergy status to sulfonamides; Z88.5 Allergy status to narcotic agent; Z88.8 Allergy status to other drugs, medicaments and biological substances
CPT/HCPCS: 36415; 71045; 71275; 80048; 80076; 83735; 83880; 84484; 85025; 85610; 93005; 99285; Q9967

== ENCOUNTER 2018-04-14 13:52 | Emergency (ER) | payer OTHER ==
--- OUTSIDE RECORDS SUMMARY | 2018-04-14 13:55 | XMS REPORT | Clinical Summary ---
:1930 Author Organization [facility] Address [address] [place] [address] Care Team Providers Name Role Phone Asked, No Pcp Primary Care Provider Unavailable Allergies Active Allergy Reactions Severity Noted Date Comments Mesalamine Itching 03/31/2017 Adalimumab Swelling, Shortness Of Breath High 02/18/2016 Methotrexate Shortness Of Breath High 03/31/2017 Abatacept Other (See Comments) 02/18/2016 Joint pains Promethazine Other (See Comments) 03/31/2017 Sulfasalazine Anaphylaxis High 03/31/2017 Medications Medication Sig Dispensed Refills Start Date End Date Status ALPRAZolam (XANAX) Take 0.25 mg by 0 Active 0.25 MG tablet mouth every morning. atorvastatin Take 40 mg by 0 Active (LIPITOR) 40 MG mouth nightly. tablet roflumilast Take 500 mcg by 0 Active (DALIRESP) 500 mcg mouth daily. tablet famotidine Take 20 mg by 0 Active (PEPCID) 20 MG mouth nightly. tablet levothyroxine Take 50 mcg by 0 Active (SYNTHROID, mouth daily. LEVOXYL) 50 mcg tablet PARoxetine (PAXIL) Take 40 mg by 0 Active 10 MG tablet mouth daily with dinner. predniSONE Take 5 mg by 0 Active (DELTASONE) 5 mg mouth 2 (two) tablet times a day. budesonide-formote Inhale 2 puffs 2 0 Active rol (SYMBICORT) (two) times a 160-4.5 day. mcg/actuation inhaler albuterol (PROAIR Inhale 2 puffs 0 Active HFA,PROVENTIL every 6 (six) HFA,VENTOLIN HFA) hours as needed 90 mcg/actuation for wheezing. inhaler tiotropium Place 1 capsule 0 Active (SPIRIVA) 18 mcg into inhaler and per inhalation inhale once capsule daily. acetaminophen-code Take 1 tablet by 0 Active ine (TYLENOL WITH mouth every 6 CODEINE #3) 300-30 (six) hours as mg per tablet needed for moderate pain (Headaches). benzonatate Take 200 mg by 0 Active (TESSALON) 100 MG mouth 3 (three) capsule times a day as needed for cough. docusate sodium Take 100 mg by 0 Active (COLACE) 100 MG mouth 2 (two) capsule times a day as needed for constipation. albuterol sulfate Take 2.5 mg by 0 Active (PROVENTIL) 2.5 nebulization 3 mg/0.5 mL solution (three) times a for nebulization day. melatonin 3 mg Take 3 mg by 0 Active tablet mouth nightly as needed for sleep. lisinopril Take 1 tablet (20 30 tablet 0 03/03/2018 Active (PRINIVIL,ZESTRIL) mg total) by 20 mg tablet mouth daily for 30 days. lisinopril Take 10 mg by 0 03/02/20 Discontinued (PRINIVIL,ZESTRIL) mouth daily. 18 10 mg tablet furosemide (LASIX) Take 20 mg by 0 03/02/20 Discontinued 20 mg tablet mouth 2 (two) 18 times a day. meloxicam (MOBIC) Take 7.5 mg by 0 04/19/19 Discontinued 7.5 mg tablet mouth 2 (two) 18 times a day as needed (back pain). traMADol (ULTRAM) Take 1 tablet (50 30 tablet 0 04/18/2017 04/28/19 50 mg tablet mg total) by 18 mouth every 6 (six) hours as needed for moderate pain for up to 10 days. simethicone Chew 1.5 tablets 180 tablet 0 04/18/2017 05/19/19 (MYLICON) 80 MG (120 mg total) 4 18 chewable tablet (four) times a day for 30 days. clopidogrel Take 1 tablet (75 30 tablet 0 04/19/2017 05/20/19 (PLAVIX) 75 mg mg total) by 18 tablet mouth daily for 30 days. pantoprazole Take 1 tablet (40 30 tablet 0 04/19/2017 05/20/19 (PROTONIX) 40 MG mg total) by 18 EC tablet mouth daily for 30 days. polyethylene Take 17 g by 30 packet 0 04/20/2017 05/21/19 glycol (MIRALAX) mouth daily for 18 17 gram packet 30 days. rivaroxaban Take 20 mg by 0 03/02/20 Discontinued (XARELTO) 20 mg mouth daily. 18 tablet torsemide Take 1 tablet (20 30 tablet 11 03/02/2018 04/01/19 (DEMADEX) 20 MG mg total) by 19 tablet mouth daily for 30 days. Active Problems Problem Noted Date Shortness of breath 02/28/2018 Hiatal hernia 03/31/2017 Encounters Date Type Specialty Care Team Description 02/28/2018 - Hospital Encounter General Internal Nino Lawrence, Shortness of breath (Primary Dx); 03/02/2018 Medicine Hiatal hernia Carolina Blanco MD 02/28/2018 Office Visit General Surgery Apple, Shortness of breath ( Primary Dx); Jose Alberto Ayala MD Hiatal hernia 04/25/2017 Office Visit General Surgery [facility], Surgery follow-up Jose Alberto Ayala MD (Primary Dx) 2017 Telephone General Surgery Sheyrl Herron PA 04/08/2017 - Hospital Encounter General Surgery [facility], 04/19/2017 MD Lenka Garcia Chau L., MD Kazim, Lubna S., MD after 04/13/2017 Family History Medical History Relation Name Comments [...] Vital Sign Reading Time Taken Blood Pressure 132/60 03/02/2018 12:02 PM [employer] Pulse 78 03/02/2018 12:02 PM [employer] Temperature 36.1 C (97 F) 03/02/2018 12:02 PM [employer] Respiratory Rate 14 03/02/2018 12:02 PM [employer] Oxygen Saturation 93% 03/02/2018 12:02 PM [employer] Inhaled Oxygen Concentration - - Weight 51.1 kg (112 lb 9.6 oz) 03/02/2018 5:13 AM [employer] Height - - Body Mass Index 22.74 03/02/2018 5:13 AM [employer] Plan of Treatment Health Maintenance Due Date Last Done Comments SHINGLES VACCINES (1 of 2) 1981 PNEUMOCOCCAL POLYSACCHARIDE VACCINE AGE 65 AND OVER 1996 PNEUMOCOCCAL-13 1996 INFLUENZA VACCINE 10/12/2017 Implants Implanted Type Area Provider Relations Consultant Device Identifier Shelf Expiration Model / Date Serial / Lot Reveal Linq-02/02/2016 Implanted: Qty: 1 on 02/02/2016 Procedures Procedure Name Priority Date/Time Associated Comments Diagnosis ESTIMATED GFR Routine 03/02/2018 3:55 Results for this AM [employer] procedure are in the results section. THYROID STIMULATING Routine 03/02/2018 3:55 Results for this HORMONE AM [employer] procedure are in the results section. HC COMPLETE BLD COUNT Routine 03/02/2018 3:55 Results for this W/AUTO DIFF AM [employer] procedure are in the results section. BASIC METABOLIC PANEL Routine 03/02/2018 3:55 Results for this AM [employer] procedure are in the results section. US DUPLEX VENOUS LOWER Routine 03/01/2018 11:47 Results for this EXTREMITY BILATERAL AM [employer] procedure are in the results section. ECHOCARDIOGRAM 2D Routine 03/01/2018 7:35 Results for this COMPLETE W MMODE AM [employer] procedure are in SPECTRAL COLOR DOPPLER the results (07708) section. CBC WITH PLATELET AND Routine 03/01/2018 4:39 Results for this DIFFERENTIAL AM [employer] procedure are in the results section. ESTIMATED GFR Routine 03/01/2018 4:00 Results for this AM [employer] procedure are in the results section. PHOSPHORUS LEVEL Routine 03/01/2018 4:00 Results for this AM [employer] procedure are in the results section. MAGNESIUM LEVEL Routine 03/01/2018 4:00 Results for this AM [employer] procedure are in the results section. IONIZED CALCIUM Routine 03/01/2018 4:00 Results for this AM [employer] procedure are in the results section. BASIC METABOLIC PANEL Routine 03/01/2018 4:00 Results for this AM [employer] procedure are in the results section. CT ANGIOGRAM PE CHEST Routine 02/28/2018 10:59 Results for this PM [employer] procedure are in the results section. CT ABDOMEN PELVIS WO Routine 02/28/2018 10:59 Results for this CONTRAST PM [employer] procedure are in the results section. IONIZED CALCIUM Routine 02/28/2018 7:46 Results for this PM [employer] procedure are in the results section. ESTIMATED GFR Routine 02/28/2018 7:46 Results for this PM [employer] procedure are in the results section. PHOSPHORUS LEVEL Routine 02/28/2018 7:46 Results for this PM [employer] procedure are in the results section. COMPREHENSIVE METABOLIC Routine 02/28/2018 7:46 Results for this PANEL PM [employer] procedure are in the results section. MAGNESIUM LEVEL Routine 02/28/2018 7:46 Results for this PM [employer] procedure are in the results section. HC COMPLETE BLD COUNT Routine 02/28/2018 7:05 Results for this W/AUTO DIFF PM [employer] procedure are in the results section. PROTHROMBIN TIME WITH Routine 02/28/2018 7:05 Results for this INR PM [employer] procedure are in the results section. XR CHEST 1 VW PORTABLE STAT 02/28/2018 6:44 Results for this PM [employer] procedure are in the results section. TYPE AND SCREEN STAT 02/28/2018 6:20 Results for this PM [employer] procedure are in the results section. ECG 12-LEAD STAT 02/28/2018 5:57 Results for this PM [employer] procedure are in the results section. US DUPLEX VENOUS LOWER Routine 04/19/2017 11:11 Results for this EXTREMITY BILATERAL AM [employer] procedure are in the results section. ZZESTIMATED GFR Routine 04/19/2017 4:00 Results for this AM [employer] procedure are in the results section. PHOSPHORUS LEVEL Routine 04/19/2017 4:00 Results for this AM [employer] procedure are in the results section. MAGNESIUM LEVEL Routine 04/19/2017 4:00 Results for this AM [employer] procedure are in the results section. BASIC METABOLIC PANEL Routine 04/19/2017 4:00 Results for this AM [employer] procedure are in the results section. HC COMPLETE BLD COUNT Routine 04/19/2017 3:45 Results for this W/AUTO DIFF AM [employer] procedure are in the results section. MAGNESIUM LEVEL Routine 04/18/2017 4:00 Results for this AM [employer] procedure are in the results section. ZZESTIMATED GFR Routine 04/18/2017 4:00 Results for this AM [employer] procedure are in the results section. PHOSPHORUS LEVEL Routine 04/18/2017 4:00 Results for this AM [employer] procedure are in the results section. HC COMPLETE BLD COUNT Routine 04/18/2017 4:00 Results for this W/AUTO DIFF AM [employer] procedure are in the results section. BASIC METABOLIC PANEL Routine 04/18/2017 4:00 Results for this AM [employer] procedure are in the results section. XR ABDOMEN 1 VW STAT 04/17/2017 1:00 Results for this PORTABLE PM [employer] procedure are in the results section. ZZESTIMATED GFR Routine 04/17/2017 4:00 Results for this AM [employer] procedure are in the results section. PHOSPHORUS LEVEL Routine 04/17/2017 4:00 Results for this AM [employer] procedure are in the results section. HC COMPLETE BLD COUNT Routine 04/17/2017 4:00 Results for this W/AUTO DIFF AM [employer] procedure are in the results section. BASIC METABOLIC PANEL Routine 04/17/2017 4:00 Results for this AM [employer] procedure are in the results section. XR ABDOMEN 2 VW AP W STAT 04/16/2017 9:23 Results for this UPRIGHT AND/OR AM [employer] procedure are in DECUBITUS the results section. HC COMPLETE BLD COUNT Routine 04/16/2017 4:15 Results for this W/AUTO DIFF AM [employer] procedure are in the results section. ZZESTIMATED GFR Routine 04/16/2017 4:00 Results for this AM [employer] procedure are in the results section. MAGNESIUM LEVEL Routine 04/16/2017 4:00 Results for this AM [employer] procedure are in the results section. PHOSPHORUS LEVEL Routine 04/16/2017 4:00 Results for this AM [employer] procedure are in the results section. BASIC METABOLIC PANEL Routine 04/16/2017 4:00 Results for this AM [employer] procedure are in the results section. XR ABDOMEN 1 VW STAT 04/15/2017 7:50 Results for this PORTABLE AM [employer] procedure are in the results section. ZZESTIMATED GFR Routine 04/15/2017 4:00 Results for this AM [employer] procedure are in the results section. PHOSPHORUS LEVEL Routine 04/15/2017 4:00 Results for this AM [employer] procedure are in the results section. MAGNESIUM LEVEL Routine 04/15/2017 4:00 Results for this AM [employer] procedure are in the results section. HC COMPLETE BLD COUNT Routine 04/15/2017 4:00 Results for this W/AUTO DIFF AM [employer] procedure are in the results section. BASIC METABOLIC PANEL Routine 04/15/2017 4:00 Results for this AM [employer] procedure are in the results section. HC COMPLETE BLD COUNT Routine 04/14/2017 4:10 Results for this W/AUTO DIFF AM [employer] procedure are in the results section. ZZESTIMATED GFR Routine 04/14/2017 4:00 Results for this AM [employer] procedure are in the results section. BASIC METABOLIC PANEL Routine 04/14/2017 4:00 Results for this AM [employer] procedure are in the results section. ECG 12-LEAD STAT 04/13/2017 4:43 Results for this AM [employer] procedure are in the results section. ZZESTIMATED GFR Routine 04/13/2017 3:44 Results for this AM [employer] procedure are in the results section. BASIC METABOLIC PANEL Routine 04/13/2017 3:44 Results for this AM [employer] procedure are in the results section. HC COMPLETE BLD COUNT Routine 04/13/2017 3:00 Results for this W/AUTO DIFF AM [employer] procedure are in the results section. after 04/13/2017 Results Estimated GFR (03/02/2018 3:55 AM [employer])Only the most recent of3 resultswithin the time period is included. Estimated GFR 58 (A) mL/min/1.73 m2 [facility] Comment: HOSPITAL CatergoryUnitsInterpretation G1 >=90 Normal or high G2 60-89Mildly decreased [id number] to moderately decreased P1k39-68Zzbzrmpgux to severely decreased G4 15-29Severely decreased G5 <15Kidney failure The eGFR was calculated using the Chronic Kidney Disease Epidemiology Collaboration (CKD-EPI) equation. Interpretation is based on recommendations of the National Kidney Foundation-Kidney Disease Outcomes Quality Initiative (NKF-KDOQI) published in 2014. Specimen Plasma specimen Performing Organization Address City/State/Zipcode Phone Number [facility] DEPARTMENT OF PATHOLOGY AND [address] [place] [address] GENOMIC MEDICINE [facility] [address] [place] [address] CBC with platelet and differential (03/02/2018 3:55 AM [employer])Only the most recent of10 resultswithin the time period is included. WBC 7.03 4.50 - 11.00 k/uL [facility] RBC 3.52 (L) 4.20 - 5.50 m/uL [facility] HGB 11.2 (L) 12.0 - 16.0 g/dL [facility] HCT 33.5 (L) 37.0 - 47.0 % [facility] MCV 95.2 82.0 - 100.0 fL [facility] MCH 31.8 27.0 - 34.0 pg [facility] MCHC 33.4 31.0 - 37.0 g/dL [facility] RDW - SD 49.1 37.0 - 55.0 fL [facility] MPV 8.8 8.8 - 13.2 fL [facility] Platelet count 238 150 - 400 k/uL [facility] Nucleated RBC 0.00 /100 WBC [facility] Neutrophils 64.5 39.0 - 69.0 % [facility] Lymphocytes 28.7 25.0 - 45.0 % [facility] Monocytes 6.0 0.0 - 10.0 % [facility] Eosinophils 0.1 0.0 - 5.0 % [facility] Basophils 0.4 0.0 - 1.0 % [facility] Immature granulocytes 0.3Comment: "Immature 0.0 - 1.0 % [facility] granulocytes" HOSPITAL (promyelocytes, myelocytes, metamyelocytes) Specimen Blood Performing Organization Address City/State/Zipcode Phone Number [facility] DEPARTMENT OF PATHOLOGY AND [address] [place] [address] Thyroid stimulating hormone (03/02/2018 3:55 AM [employer]) TSH 1.42 0.27 - 4.20 uIU/mL [facility] Specimen Plasma specimen Performing Organization Address City/[facility] Phone Number [facility] DEPARTMENT OF PATHOLOGY AND [address] [place] [address] Basic metabolic panel (03/02/2018 3:55 AM [employer])Only the most recent of9 resultswithin the time period is included. Sodium 135 135 - 148 mEq/L [facility] Potassium 3.9 3.5 - 5.0 mEq/L [facility] Chloride 94 (L) 98 - 112 mEq/L [facility] CO2 28 24 - 31 mEq/L [facility] Anion gap 13@ANIO 7 - 15 mEq/L [facility] BUN 12 8 - 23 mg/dL [facility] Creatinine 0.89 0.50 - 0.90 mg/dL [facility] Glucose 112 (H) 65 - 99 mg/dL [facility] Calcium 8.5 (L) 8.8 - 10.2 mg/dL [facility] Specimen Plasma specimen Performing Organization Address City/State/Zipcode Phone Number [facility] DEPARTMENT OF PATHOLOGY AND [address] [place] [address] GENOMIC MEDICINE [facility] [address] [place] [address] Us duplex venous lower extremity (03/01/2018 11:47 AM [employer])Only the most recent of2 resultswithin the time period is included. Narrative Performed At [facility] Vascular Ultrasound Laboratory Lower Extremity Venous Report [id number] [facility] [address], [place] [address] Pat.Name:ELVA FLOR Pat.ID:[id number] .Date: 03/01/2018Refer.MD:CAROLINA BLANCO MD Exam Time: 11:16:00 AM Study Type:LE Venous Height:59inDOBAge: 1930,87Y Sex: FEMALESonogrphr: Kevin Barry RDMS, RVT Pat. Stat.:Inpatient Room:[address] TapeVol: , CPT - 4: 89231 Echo Event ID:[id number] Order ID:[id number] Reason for Study:Lower extremity swelling. History of shortness of breath, hypothyroidism, hypertension. Procedures:Colorflow, Grayscale/2D, Pulsed wave Doppler Race:C SUMMARY: DUPLEX SCAN OBSERVATIONS Deep VeinsSuperficial Veins RightLeft RightLeft GSV (prox) NormalNormal CFV Normal Normal (above knee) Femoral Normal Normal GSV (dist) Normal Normal Profunda Normal Normal (below knee) Popliteal Normal Normal PT (prox) Normal NormalSSV Normal Normal PT (dist) Normal Normal Peroneal Normal Normal RIGHT:There is normal compressibility with no evidence of echogenic material noted within the lumen of the visualized veins.Colorflow and Doppler signals are normal. LEFT: There is normal compressibility with no evidence of echogenic material noted within the lumen of the visualized veins. Colorflow and Doppler signals are normal. PRELIMINARY FINDINGS 1.Normal venous duplex exam of the visualized veins. PHYSICIAN INTERPRETATION Venous examination of the both lower extremities demonstrated no evidence of venous thrombosis in the visualized veins.Normal compressibility and augmentation of all veins visualized. Signed 03/01/2018 04:41 PM Rajinder Sims MD, RPVI Procedure Note Interface, Radiology Results In - 03/01/2018 4:41 PM [facility] Vascular Ultrasound Laboratory Lower Extremity Venous Report [id number] [place] [address] Pat.Name: ELVA FLOR Pat.ID: [id number] .Date: 03/01/2018 Refer.MD: CAROLINA BLANCO MD Exam Time: 11:16:00 AM Study Type:LE Venous Height: 59in Age: 3 1930,87Y Sex: FEMALE Sonogrphr: Kevin Barry RDMS, RVT Pat. Stat.:Inpatient Room: [address] Vol: ST, CPT - 4: 28845 Echo Event ID:[id number] Order ID: [id number] Reason for Study:Lower extremity swelling. History of shortness of breath, hypothyroidism, hypertension. Procedures:Colorflow, Grayscale/2D, Pulsed wave Doppler Race: C SUMMARY: DUPLEX SCAN OBSERVATIONS Deep [...] exam of the visualized veins. PHYSICIAN INTERPRETATION Venous examination of the both lower extremities demonstrated no evidence of venous thrombosis in the visualized veins. Normal compressibility and augmentation of all veins visualized. Signed 03/01/2018 04:41 PM Rajinder Sims MD, RPVI Performing Organization Address City/State/Zipcode Phone Number [facility] [address] [place] [address] Echocardiogram complete w contrast and 3D if needed (03/01/2018 7:35 AM [employer]) Narrative Performed At [facility] Echocardiography Report [id number] [place] [address] Pat.Name:ELVA FLOR Pat.ID:[id number] .Date: 03/01/2018Refer.MD:CAROLINA BLANCO MD Exam Time: 7:07:00 AMStudy Type:Routine Echo Height:59.02in Weight:120lb BSA: 1.49 m2 DOBAge:1930,87Y Sex: FEMALEBP:140/65 HR:78 bpmSonogrphr: Michell Couch RDSHIREEN Pat. Stat.:Inpatient Room:[facility] Study Status:Final Echo Event ID:[id number] Order ID:[id number] Reason for Study:Shortness of breath Procedures:2D Echo, Colorflow Doppler, Strain SUMMARY: LV EF is hyperdynamic.Overall wall motion is hyperdynamic. Diastolic dysfunction Grade I (Mild): Impaired relaxation with normal LV filling pressures. FINDINGS: LV: LV size is normal. LV EF is hyperdynamic. Overall wall motionis hyperdynamic. Estimated EF is >70%. RV: RV size is normal. RV systolic function is normal. LA: LA size is normal. RA: RA size is normal. AO: Aortic root diameter is normal. VELIA: No pericardial effusion. AV: No structural AV abnormalities noted. MV: Moderate thickening of mitral leaflets. Moderate mitral annularcalcification. PV: No structural PV abnormalities noted. TV: No structural TV abnormalities noted. A trace of tricuspid regurgitation Abdi: Diastolic dysfunction Grade I (Mild): Impaired relaxation withnormal LV filling pressures. Other:Estimated PA systolic pressure is 37 mmHg, assuming a mean RAPof 5 mmHg. MEASUREMENTS: 2D Parasternal Long [place] LA Ds3.2 cmLVPWd1 cm LVOT 1.8 cmAo An1.8 cm LVIDd3.9 cmIndex2.6 cm/m Ao Rtd 3 cm Index2 cm/m LVIDs2.1 cmLV Rham427 g(87-129) LV%fs 45.5 % LVM Index 86.6 g/m2 IVSd 1.1 cmRWT0.5 LA Sng Plane LA Area 15.4 cm2(8.8-23.4) LA Vol39.3 ml Index26.4 ml/m LA LngAx 5.2 cm RA Sng Plane RA Area 12.6 cm2(8.3-19.5) RA Vol27.5 ml Index18.4 ml/m RA LngAx 5.1 cm DOPPLER LVOT Stroke Vol LVOT 1.8 cmLVOT CO5.2 l/min LVOT TVI31.5 cmLVOT CI3.5 l/m/m2 LVOT Tm343 ccqyUN99 bpm LVOT SV 80.1 ml Signed 03/01/2018 02:33 PM Lucho Abdullahi M.D. Procedure Note Interface, Radiology Results In - 03/01/2018 2:34 PM [employer] Echocardiography Report [id number] [address], [place] [address] Pat.Name: ELVA FLOR Pat.ID: [id number] .Date: 03/01/2018 Refer.MD: CAROLINA BLANCO MD Exam Time: 7:07:00 AM Study Type:Routine Echo Height: 59.02in Weight: 120lb BSA: 1.49 m2 Age: 2 1930,87Y Sex: FEMALE BP: 140/65 HR: 78 bpm Sonogrphr: Michell Couch RDCS Pat. Stat.:Inpatient Room: [facility] Study Status:Final Echo Event ID:[id number] Order ID: [id number] Reason for Study:Shortness of breath Procedures:2D Echo, Colorflow Doppler, Strain SUMMARY: LV EF is hyperdynamic. Overall wall motion is hyperdynamic. Diastolic dysfunction Grade I (Mild): Impaired relaxation with normal LV filling pressures. FINDINGS: LV: LV size is normal. LV EF is hyperdynamic. Overall wall motion is hyperdynamic. Estimated EF is >70%. RV: RV size is normal. RV systolic function is normal. LA: LA size is normal. RA: RA size is normal. AO: Aortic root diameter is normal. VELIA: No pericardial effusion. AV: No structural AV abnormalities noted. MV: Moderate thickening of mitral leaflets. Moderate mitral annular calcification. PV: No structural PV abnormalities noted. TV: No structural TV abnormalities noted. A trace of tricuspid regurgitation Abdi: Diastolic dysfunction Grade I (Mild): Impaired relaxation with normal LV filling pressures. Other: Estimated PA systolic pressure is 37 mmHg, assuming a mean RAP of 5 mmHg. MEASUREMENTS: 2D Parasternal Long [place] LA Ds 3.2 cm LVPWd 1 cm LVOT 1.8 cm Ao An 1.8 cm LVIDd 3.9 cm Index 2.6 cm/m Ao Rtd 3 cm Index 2 cm/m LVIDs 2.1 cm LV Mass 129 g (87-129) LV%fs 45.5 % LVM Index 86.6 g/m2 IVSd 1.1 cm RWT 0.5 LA Sng Plane LA Area 15.4 cm2 (8.8-23.4) LA Vol 39.3 ml Index 26.4 ml/m LA LngAx 5.2 cm RA Sng Plane RA Area 12.6 cm2 (8.3-19.5) RA Vol 27.5 ml Index 18.4 ml/m RA LngAx 5.1 cm DOPPLER LVOT Stroke Vol LVOT 1.8 cm LVOT CO 5.2 l/min LVOT TVI 31.5 cm LVOT CI 3.5 l/m/m2 LVOT Tm 343 msec HR 65 bpm LVOT SV 80.1 ml Signed 03/01/2018 02:33 PM Lucho Abdullahi M.D. Performing Organization Address [facility] Phone Number [facility] [address] [place] [address] Phosphorus level (03/01/2018 4:00 AM [employer])Only the most recent of7 resultswithin the time period is included. Phosphorus 4.0 2.4 - 4.5 mg/dL [facility] Specimen Plasma specimen Performing Organization Address [facility] Phone Number [facility] DEPARTMENT OF PATHOLOGY AND [address] [place] [address] GENOMIC MEDICINE [address] [address] Magnesium level (03/01/2018 4:00 AM [employer])Only the most recent of6 resultswithin the time period is included. Magnesium 1.9 1.6 - 2.4 mg/dL [facility] Specimen Plasma specimen Performing Organization Address [facility]/Zipcode Phone Number [facility] DEPARTMENT OF PATHOLOGY AND [address] [place] [address] [facility] [address] [place] [address] Ionized calcium (03/01/2018 4:00 AM [employer])Only the most recent of2 resultswithin the time period is included. pH 7.53 [facility] Ionized calcium 1.04 (L) 1.11 - 1.32 mmol/L [facility] Specimen Plasma specimen Performing Organization Address City/[facility]/Zipcode Phone Number [facility] DEPARTMENT OF PATHOLOGY AND [address] [place] [address] [facility] [address] [place] [address] CT Angiogram Pe Chest (02/28/2018 10:59 PM [employer]) Narrative Performed At EXAMINATION: [facility] CT ANGIOGRAM PE CHEST CLINICAL HISTORY: PE suspectedhigh pretest prob TECHNIQUE:CT angiographic images of the chest were obtained during intravenous administration of iodinated contrast. Computerized reformatted images and 3-D MIP images were also obtained and archived (CT pulmonary embolus protocol). CT scans are performed using radiation dose reduction techniques. Technical factors are evaluated and adjusted to ensure appropriate moderation of exposure. Automated dose management technology is applied to adjust radiation exposure while achieving a diagnostic quality image COMPARISON: April 08, 2017 FINDINGS: There are few scattered small less than 3 mm densities in both lungs.There is no mass or definite infiltrate. There is no significant mediastinal mass or adenopathy.There is no definite hilar adenopathy.Thoracic aorta and pulmonary artery are of normal caliber. There is good opacification of the pulmonary artery with no definite pulmonary embolus identified. IMPRESSION: No evidence of pulmonary embolus. [facility]-[id number] Procedure Note Interface, Radiology Results Incoming - 02/28/2018 11:31 PM [employer] EXAMINATION: CT ANGIOGRAM PE CHEST CLINICAL HISTORY: PE suspected high pretest prob TECHNIQUE: CT angiographic images of the chest were obtained during intravenous administration of iodinated contrast. Computerized reformatted images and 3-D MIP images were also obtained and archived (CT pulmonary embolus protocol). CT scans are performed using radiation dose reduction techniques. Technical factors are evaluated and adjusted to ensure appropriate moderation of exposure. Automated dose management technology is applied to adjust radiation exposure while achieving a diagnostic quality image COMPARISON: April 08, 2017 FINDINGS: There are few scattered small less than 3 mm densities in both lungs. There is no mass or definite infiltrate. There is no significant mediastinal mass or adenopathy. There is no definite hilar adenopathy. Thoracic aorta and pulmonary artery are of normal caliber. There is good opacification of the pulmonary artery with no definite pulmonary embolus identified. IMPRESSION: No evidence of pulmonary embolus. [facility]-[id number] Performing Organization Address City/State/Zipcode Phone Number [facility] [address] [place] [address] CT Abdomen Pelvis Wo Contrast (02/28/2018 10:59 PM [employer]) Narrative Performed At Examination:CT ABDOMEN PELVIS WO CONTRAST [facility] Clinical History: Shortness of breath Comparison: None. Findings: CT scans are performed using radiation dose reduction techniques.Technical factors are evaluated and adjusted to ensure appropriate moderation of exposure.Automated dose management technology is applied to adjust radiation exposure while achieving a diagnostic quality image. CT scan of the abdomen and pelvis was performed without intravenous contrast. The liver, spleen, pancreas, and adrenal glands are unremarkable. The patient is status post cholecystectomy. The kidneys are within normal limits without hydronephrosis or urinary calculus. No bowel wall thickening or fat stranding is seen. No bowel dilatation is seen. The appendix is nonvisualized. No free air or fluid is seen. Urinary bladder is unremarkable. The visualized lung bases are clear. IMPRESSION: 1. No acute abnormality identified in the abdomen or pelvis. [facility]-[id number] Procedure Note Interface, Radiology Results Incoming - 02/28/2018 11:35 PM [employer] Examination: CT ABDOMEN PELVIS WO CONTRAST Clinical History: Shortness of breath Comparison: None. Findings: CT scans are performed using radiation dose reduction techniques. Technical factors are evaluated and adjusted to ensure appropriate moderation of exposure. Automated dose management technology is applied to adjust radiation exposure while achieving a diagnostic quality image. CT scan of the abdomen and pelvis was performed without intravenous contrast. The liver, spleen, pancreas, and adrenal glands are unremarkable. The patient is status post cholecystectomy. The kidneys are within normal limits without hydronephrosis or urinary calculus. No bowel wall thickening or fat stranding is seen. No bowel dilatation is seen. The appendix is nonvisualized. No free air or fluid is seen. Urinary bladder is unremarkable. The visualized lung bases are clear. IMPRESSION: 1. No acute abnormality identified in the abdomen or pelvis. [id number] Performing Organization Address City/[facility]/Zipcode Phone Number [facility] [address] [place] [address] Comprehensive metabolic panel (02/28/2018 7:46 PM [employer]) Sodium 137 135 - 148 mEq/L [facility] Potassium 3.9 3.5 - 5.0 mEq/L [facility] Chloride 99 98 - 112 mEq/L [facility] CO2 26 24 - 31 mEq/L [facility] Anion gap 12@ANIO 7 - 15 mEq/L [facility] BUN 15 8 - 23 mg/dL [facility] Creatinine 0.84 0.50 - 0.90 mg/dL [facility] Glucose 85 65 - 99 mg/dL [facility] Calcium 8.9 8.8 - 10.2 mg/dL [facility] Protein 6.2 (L) 6.3 - 8.3 g/dL [facility] Comment: HOSPITAL 4.6-7.0 g/dL 1 week 4.4-7.6 g/dL 7 months-1year5.1-7.3 g/dL 1-2 years5.6-7.5 g/dL >3 years6.0-8.0 g/dL 18-150 6.3-8.3 g/dL Albumin 3.1 (L) 3.5 - 5.0 g/dL [facility] A/G ratio 1.0 0.7 - 3.8 [facility] Alkaline phosphatase 62 35 - 104 U/L [facility] AST 27 10 - 35 U/L [facility] ALT 26 5 - 50 U/L [facility] Total bilirubin 0.8 0.0 - 1.2 mg/dL [facility] Specimen Plasma specimen Performing Organization Address [facility]/Zipcode Phone Number [facility] DEPARTMENT OF PATHOLOGY AND [address] [place] [address] GENOMIC MEDICINE [facility] [address] [place] [address] Prothrombin time with INR (02/28/2018 7:05 PM [employer]) Prothrombin time 14.0 11.5 - 14.5 sec [facility] INR 1.1 [facility] Comment: HOSPITAL The International Normalized Ratio (INR) is a therapeutic monitoring tool for patients who are stable on oral anticoagulant therapy. An INR of 2.0-3.0 is suggested for deep vein thrombosis/pulmonary embolism. Specimen Blood Performing Organization Address City/[facility]/Zipcode Phone Number [facility] DEPARTMENT OF PATHOLOGY AND [address] [place] [address] [address] XR Chest 1 Vw Portable (02/28/2018 6:44 PM [employer]) Narrative Performed At EXAMINATION:XR CHEST 1 VW PORTABLE [facility] CLINICAL HISTORY:Shortness of breath COMPARISON:04/12/2017 IMPRESSION: Chronic appearing interstitial lung markings. No consolidations, effusions, or pneumothorax. Calcified granuloma is seen of the right lung base. Cardiomediastinal silhouette is within normal limits. A device projects over the left heart. No acute osseous abnormalities. [facility]-[id number] Procedure Note Hm Interface, Radiology Results Incoming - 02/28/2018 6:58 PM [employer] EXAMINATION: XR CHEST 1 VW PORTABLE CLINICAL HISTORY: Shortness of breath COMPARISON: 04/12/2017 IMPRESSION: Chronic appearing interstitial lung markings. No consolidations, effusions, or pneumothorax. Calcified granuloma is seen of the right lung base. Cardiomediastinal silhouette is within normal limits. A device projects over the left heart. No acute osseous abnormalities. [facility]-[id number] Performing Organization Address [facility] Phone Number [facility] [address] [place] [address] Type and screen (02/28/2018 6:20 PM [employer]) ABO grouping A [facility] Rh type POS [facility] Antibody screen (gel) NEG [facility] Specimen Blood Performing Organization Address City/[facility]/Zipcode Phone Number [facility] DEPARTMENT OF PATHOLOGY AND [address] [place] [address] [address] ECG 12 lead (02/28/2018 5:57 PM [employer])Only the most recent of2 resultswithin the time period is included. Ventricular rate 60 [facility] Atrial rate 60 [facility] KS interval 128 [facility] QRSD interval 70 [facility] QT interval 404 [facility] QTC interval 404 [facility] P axis 1 66 [facility] QRS axis 1 43 [facility] T wave axis 61 [facility] MUSE EKG impression Normal sinus rhythm-Possible Left atrial enlargement- Borderline ECG-In automated comparison with ECG of 13-APR-2017 04:43,-Vent. rate has decreased BY52 BPM-Nonspecific T wave abnormality no longer [facility] MUSE evident in Inferior leads- Narrative Performed At Performing Organization Address City/[facility] Phone Number [facility] MUSE [address] [place] [address] Estimated GFR (04/19/2017 4:00 AM [employer])Only the most recent of7 resultswithin the time period is included. GFR Non Af Amer 79 mL/min/1.73 m2 [facility] DEPARTMENT OF PATHOLOGY AND GENOMIC MEDICINE GFR Af Amer >90 mL/min/1.73 m2 [facility] DEPARTMENT OF Comment: PATHOLOGY AND GENOMIC [...] Americans. Specimen Plasma specimen Performing Organization Address City/[facility]/Zipcode Phone Number [facility] DEPARTMENT OF PATHOLOGY AND [address] [place] [address] [facility] XR Abdomen 1 Vw Portable (04/17/2017 1:00 PM [employer])Only the most recent of2 resultswithin the time period is included. Narrative Performed At EXAMINATION:XR ABDOMEN 1 VW PORTABLE [facility] CLINICAL HISTORY:Distention COMPARISON:April 16, 2017 IMPRESSION: Diffuse bowel distention, most pronounced in the right colon, is without significant change. The cecum measures approximately 7.5 cm. This is suggestive of ileus. Left femoral line is again noted. Midline skin digna are also present. [facility]-[id number] Procedure Note Interface, Radiology Results Incoming - 04/17/2017 1:07 PM [employer] EXAMINATION: XR ABDOMEN 1 VW PORTABLE CLINICAL HISTORY: Distention COMPARISON: April 16, 2017 IMPRESSION: Diffuse bowel distention, most pronounced in the right colon, is without significant change. The cecum measures approximately 7.5 cm. This is suggestive of ileus. Left femoral line is again noted. Midline skin digna are also present. [facility]-[id number] Performing Organization Address City/[facility]/Zipcode Phone Number [facility] [address] [place] [address] XR Abdomen 2 Vw Ap W Upright And/Or Decubitus (04/16/2017 9:23 AM [employer]) Narrative Performed At EXAMINATION:XR ABDOMEN 2 VW AP W UPRIGHT AND OR DECUBITUS [facility] CLINICAL HISTORY:Distention COMPARISON:04/15/2017 IMPRESSION: 1.There are operative [...] base with a tiny left pleural effusion. [facility]-[id number] Procedure Note [facility], Radiology Results Incoming - 04/16/2017 9:31 AM [employer] EXAMINATION: XR ABDOMEN 2 VW AP W [...] base with a tiny left pleural effusion. [facility]-[id number] Performing Organization Address City/[facility]/Zipcode Phone Number [facility] [address] [place] [address] after 04/13/2017 Insurance Payer Benefit Plan / Group Subscriber ID Type Phone Address [facility] MEDICARE [facility] MEDIC[facility] COMPLETE xxxxxxxxx O ([place]) [phone] [place] [address] Advance Directives Patient has advance care planning documents on file. For more information, please contact:Corbin Medley[address] [place] [address]
--- OUTSIDE RECORDS SUMMARY | 2018-04-14 13:55 | XMS REPORT | Clinical Summary ---
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 Cardiology Rhea Bedoya Bilateral pulmonary embolism ( HCC); - Encounter MD Yamila C. difficile colitis; 09/17/2017 Anthony, Chronic obstructive pulmonary disease, unspecified COPD type (HCC); Martha Blum MD Gastroesophageal reflux disease without esophagitis; Hypothyroidism, unspecified type; Deep vein thrombosis (DVT) of left lower extremity, unspecified chronicity, unspecified vein (HCC); Rectal bleeding; Rectal polyp; Normochromic anemia 08/02/2017 Anesthesia Event Gastroenterology Abeba Fuchs, GEOTHERMAL POWERPLANT MECHANIC HELPER 08/02/2017 Surgery Gastroenterology Katie, COLONOSCOPY,SUBMUCOSAL [facility] Jorgeshira RESECTION MD Krystin 08/02/2017 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 Narrative Performed At REPORT OF PROCEDURE - ENDOSCOPY URL (09/19/2017 1:13 PM CDT) Narrative Performed At TRANSFUSION SERVICE REPORT - SCAN (09/17/2017 6:00 PM CDT) Narrative Performed At PT/aPTT (09/17/2017 5:35 AM CDT) Protime 20.8 (H) 11.7 - 14.7 seconds [facility] INR 1.8 <=5.9 [facility] PTT 36.1 (H) 22.5 - 36.0 seconds [facility] Specimen Blood - Arm, Left Narrative Performed At [facility] RECOMMENDED COUMADIN/WARFARIN INR THERAPY RANGES STANDARD DOSE: 2.0 - 3.0 Includes: PROPHYLAXIS for venous thrombosis, systemic embolization; TREATMENT for venous thrombosis and/or pulmonary embolus. HIGH RISK: Target INR is 2.5-3.5 for patients with mechanical heart valves. Performing Organization Address City/State/Zipcode Phone Number [facility] [address] [place] [address] [phone] CENTER CBC with platelet count + automated diff (09/17/2017 5:35 AM CDT)Only the most recent of4 resultswithin the time period is included. WBC 5.5 3.5 - 10.5 K/L [facility] RBC 3.52 (L) 3.93 - 5.22 M/L [facility] Hemoglobin 10.4 (L) 11.2 - 15.7 GM/DL [facility] Hematocrit 33.1 (L) 34.1 - 44.9 % [facility] MCV 94.0 79.4 - 94.8 fL [facility] MCH 29.5 25.6 - 32.2 pg [facility] MCHC 31.4 (L) 32.2 - 35.5 GM/DL [facility] RDW 19.8 (H) 11.7 - 14.4 % [facility] Platelets 240 150 - 450 K/CU MM [facility] MPV 8.5 (L) 9.4 - 12.3 fL [facility] nRBC 0 0 - 0 /100 WBC [facility] % Neutros 43 % [facility] % Lymphs 49 % [facility] % Monos 7 % [facility] % Eos 1 % [facility] % Baso 0 % [facility] # Neutros 2.34 1.56 - 6.13 K/L [facility] # Lymphs 2.68 1.18 - 3.74 K/L [facility] # Monos 0.38 (H) 0.24 - 0.36 K/L [facility] # Eos 0.05 0.04 - 0.36 K/L [facility] # Baso 0.02 0.01 - 0.08 K/L [facility] Immature Granulocytes-Relative 0 0 - 1 % [facility] Specimen Blood - Arm, Left Performing Organization Address City/[facility] Phone Number [address] [phone] CENTER Magnesium (09/17/2017 5:35 AM CDT)Only the most recent of3 resultswithin the time period is included. Magnesium 1.9 1.6 - 2.6 mg/dL [facility] Specimen Blood - Arm, Left Performing Organization Address [facility] Cent[facility] Phone Number [address] [phone] [place] Basic metabolic panel (09/17/2017 5:35 AM CDT)Only the most recent of6 resultswithin the time period is included. Sodium 138 136 - 145 meq/L [facility] Potassium 4.2 3.5 - 5.1 meq/L [facility] Chloride 106 98 - 107 meq/L [facility] CO2 25 22 - 29 meq/L [facility] BUN 6 (L) 7 - 21 mg/dL [facility] Creatinine 0.66 0.57 - 1.25 mg/dL [facility] Glucose 76 70 - 105 mg/dL [facility] Calcium 8.4 8.4 - 10.2 mg/dL [facility] EGFR 85Comment: ESTIMATED GFR IS mL/min/1.73 sq m [facility] NOT ACCURATE [facility] CLEARANCE IN PREDICTING GLOMERULAR FILTRATION RATE. ESTIMATED GFR IS NOT APPLICABLE FOR DIALYSIS PATIENTS. Specimen Blood - Arm, Left Performing Organization Address [facility] Centercode Phone Number [address] [address] [phone] CENTER Type and screen, automated (09/16/2017 6:30 PM CDT) ABO/RH AUTOMATED (BEAKER) A POSITIVE [facility] Ab Scrn NEGATIVE [facility] Specimen Blood Performing Organization Address [facility] Centercode Phone Number [address] [address] [phone] CBC (Hemogram only) (09/16/2017 6:30 PM CDT) WBC 6.5 3.5 - 10.5 K/L [facility] RBC 3.61 (L) 3.93 - 5.22 M/L [facility] Hemoglobin 10.9 (L) 11.2 - 15.7 GM/DL [facility] Hematocrit 33.5 (L) 34.1 - 44.9 % [facility] MCV 92.8 79.4 - 94.8 fL [facility] MCH 30.2 25.6 - 32.2 pg [facility] MCHC 32.5 32.2 - 35.5 GM/DL [facility] RDW 19.8 (H) 11.7 - 14.4 % [facility] Platelets 239 150 - 450 K/CU MM [facility] MPV 8.7 (L) 9.4 - 12.3 fL [facility] nRBC 0 0 - 0 /100 WBC [facility] Specimen Blood Performing Organization Address [facility] Centercode Phone Number [address] [phone] CENTER Tissue Exam (09/16/2017 3:38 PM CDT)Only the most recent of2 resultswithin the time period is included. Case Report Surgical Pathology Report Case: [id number] [facility] Authorizing Provider:Misha Calloway MDCollected: 09/16/2017 1538 MEDICAL CENTER Ordering Location: [address] Received: 09/19/2017 0820 Service Pathologist: Larry Cohn MD Specimen:Polyp, Colon - Rectosigmoid, POLYP TAKEN BY HOT SNARE DIAGNOSIS RECTO-SIGMOID, POLYPECTOMY [facility] - TUBULAR [facility] - CAUTERIZED EDGE, NEGATIVE FOR ADENOMATOUS CHANGE Signing Pathologist Direct Phone Line: [phone] CPT Code(s) 58356 [facility] CLINICAL HISTORY GI bleed [facility] SPECIMEN SOURCE Rectosigmoid colon polyp [facility] GROSS DESCRIPTION The specimen is received in [facility] a formalin-filled [facility] and labeled with the patient's information and labeled "rectosigmoid colon polyp" and consists of a durham-red polyp measuring 0.8 x 0.8 x 0.3 cm. Resection margin is inked blue. The specimen is trisected, submitted entirely A1. CG/pl MICROSCOPIC DESCRIPTION There is no high grade dysplasia or carcinoma. [facility] Specimen Tissue - Polyp, Colon - Rectosigmoid Performing Organization Address City/[facility]/Zipcode Phone Number [address] [address] [phone] CENTER REPORT OF PROCEDURE - ENDOSCOPY URL (08/08/2017 12:52 PM CDT) Narrative Performed At Calcium, Ionized (08/05/2017 5:48 AM CDT) Calcium, Ion 1.05 (L) 1.12 - 1.27 mmol/L [facility] pH, Blood 7.46 [facility] Specimen Blood - Arm, Right Performing Organization Address City/State/Zipcode Phone Number [address] [address] [phone] CENTER Prothrombin time/INR (08/05/2017 5:48 AM CDT)Only the most recent of3 resultswithin the time period is included. Protime 14.2 11.7 - 14.7 seconds [facility] INR 1.1 <=5.9 [facility] Specimen Blood - Arm, Right Narrative Performed At [facility] RECOMMENDED COUMADIN/WARFARIN INR THERAPY RANGES STANDARD DOSE: 2.0 - 3.0 Includes: PROPHYLAXIS for venous thrombosis, systemic embolization; TREATMENT for venous thrombosis and/or pulmonary embolus. HIGH RISK: Target INR is 2.5-3.5 for patients with mechanical heart valves. Performing Organization Address City/[facility]/Zipcode Phone Number [address] [address] CENTER Phosphorus (08/05/2017 5:48 AM CDT) Phosphorus 2.7 2.3 - 4.7 mg/dL [facility] Specimen Blood - Arm, Right Performing Organization Address [facility] Centercode Phone Number [address] [phone] [place] Hepatic function panel (08/05/2017 5:48 AM CDT)Only the most recent of3 resultswithin the time period is included. Protein, Total 5.2 (L) 6.0 - 8.3 gm/dL [facility] Albumin 2.9 (L) 3.5 - 5.0 g/dL [facility] Total Bilirubin 0.8 0.2 - 1.2 mg/dL [facility] Bilirubin, Direct 0.4 0.1 - 0.5 mg/dL [facility] Alkaline Phosphatase 43 40 - 150 U/L [facility] AST 13 5 - 34 U/L [facility] ALT 10 6 - 55 U/L [facility] Specimen Blood - Arm, Right Performing Organization Address [facility]/Zipcode Phone Number [address] [address] [place] Urinalysis w/Microscopic (08/03/2017 2:35 PM CDT) Color, UA Yellow [facility] Clarity, UA Clear [facility] Specific [place], UA 1.010 1.001 - 1.035 [facility] pH, UA 5.5 5.0 - 8.0 [facility] Protein, UA Negative Negative [facility] Glucose, UA Negative Negative [facility] Ketones, UA Trace (A) Negative [facility] Bilirubin, UA Negative Negative [facility] Blood, UA Negative Negative [facility] Nitrite, UA Negative Negative [facility] Leukocytes, UA Negative Negative [facility] Urobilinogen, UA 0.2 0.2 - 1.0 mg/dL [facility] RBC, UA 1 /HPF [facility] WBC, UA 3 /HPF [facility] Mucus Few [facility] Squam Epithel, UA <1 /HPF [facility] Hyaline Casts, UA 2 /LPF [facility] Specimen Source [facility] Specimen Urine Performing Organization Address City/[facility]/Zipcode Phone Number [place] [phone] [place] [address] CENTER after 04/13/2017 Insurance Payer Benefit Plan / Group Subscriber ID Type Phone Address [employer] - MEDICARE UNITED MEDICARE HMO xxxxxxxxx MGD [facility] MGD [facility] PPO OPTIONS xxxxxxxxx PPO Advance Directives For more information, please contact:[address] [phone] Code Status Date Activated Date Inactivated Comments [...]
--- OUTSIDE RECORDS SUMMARY | 2018-04-14 13:56 | XMS REPORT ---
:1930 [facility] Address [address] [place] [address] Dr. Marsh [address] [place] [id number] Care Team Providers Name Role Phone KIM MCKEON ZARI Unavailable Unavailable RICARDO WILSON Unavailable Unavailable Problems This patient has no known problems. Allergies, Adverse Reactions, Alerts This patient has no known allergies or adverse reactions. Medications This patient has no known medications. Results Test Description Test Time Test Comments Text Results Atomic Results Result Comments TISSUE EXAM 2017-09-20 16:22:00 Surgical Pathology Report Case: [id number] Authorizing Provider: Misha Calloway MD Collected: 09/16/2017 1538 Ordering Location: [address] Received: 09/19/2017 0820 Service Pathologist: Larry Cohn MD Specimen: Polyp, Colon - Rectosigmoid, POLYP TAKEN BY HOT SNARE RECTO-SIGMOID, POLYPECTOMY- TUBULAR ADENOMA- CAUTERIZED EDGE, NEGATIVE FOR ADENOMATOUS CHANGE Signing Pathologist Direct Phone Line: [phone] signed by Larry Cohn MD on 09/20/2017 at 4:22 [id number] bleedRectosigmoid colon polypThe specimen is received in [...] Value Reference Range Comments MAGNESIUM (BEAKER) (test weve=703) 1.9 mg/dL 1.6-2.6 BASIC METABOLIC [id number] 07:32:00 Test Item Value Reference Range Comments SODIUM (BEAKER) (test 138 meq/L 136-145 aepw=818) POTASSIUM (BEAKER) (test 4.2 meq/L 3.5-5.1 qvlu=602) CHLORIDE (BEAKER) (test 106 meq/L 98-107 zfki=360) CO2 (BEAKER) (test 25 meq/L 22-29 jvio=734) BLOOD UREA NITROGEN 6 mg/dL 7-21 (BEAKER) (test hzcm=053) CREATININE (BEAKER) (test 0.66 mg/dL 0.57-1.25 wbfj=389) GLUCOSE RANDOM (BEAKER) 76 mg/dL 70-105 (test wsyf=464) CALCIUM (BEAKER) (test 8.4 mg/dL 8.4-10.2 odpt=615) EGFR (BEAKER) (test 85 mL/min/1.73 sq m ESTIMATED GFR IS NOT umzf=5563) ACCURATE CREATININE CLEARANCE IN PREDICTING GLOMERULAR FILTRATION RATE. ESTIMATED GFR IS NOT APPLICABLE FOR DIALYSIS PATIENTS. [id number] 06:42:00 Test Item Value Reference Range Comments PROTIME (BEAKER) (test krrj=710) 20.8 seconds 11.7-14.7 INR (BEAKER) (test sntv=771) 1.8 <=5.9 PARTIAL THROMBOPLASTIN TIME (BEAKER) (test 36.1 seconds 22.5-36.0 qrjv=929) RECOMMENDED COUMADIN/WARFARIN INR THERAPY RANGESSTANDARD DOSE: 2.0 - 3.0 Includes: PROPHYLAXIS forvenous thrombosis, systemic embolization; TREATMENT for venous thrombosis and/or pulmonary embolus.HIGH RISK: Target INR is 2.5-3.5 for patients with mechanical heart valves.CBC W/PLT COUNT & AUTO [id number] 06:41:00 Test Item Value Reference Range Comments WHITE BLOOD CELL COUNT (BEAKER) (test qttn=923) 5.5 K/ L 3.5-10.5 RED BLOOD CELL COUNT (BEAKER) (test iqgj=324) 3.52 M/ L 3.93-5.22 HEMOGLOBIN (BEAKER) (test pqhd=541) 10.4 GM/DL 11.2-15.7 HEMATOCRIT (BEAKER) (test blhb=816) 33.1 % 34.1-44.9 MEAN CORPUSCULAR VOLUME (BEAKER) (test rpyx=544) 94.0 fL 79.4-94.8 MEAN CORPUSCULAR HEMOGLOBIN (BEAKER) (test 29.5 pg 25.6-32.2 xngr=026) MEAN CORPUSCULAR HEMOGLOBIN CONC (BEAKER) (test 31.4 GM/DL 32.2-35.5 dqva=683) RED CELL DISTRIBUTION WIDTH (BEAKER) (test 19.8 % 11.7-14.4 gqgm=845) PLATELET COUNT (BEAKER) (test amgo=675) 240 K/CU MM 150-450 MEAN PLATELET VOLUME (BEAKER) (test gxtz=752) 8.5 fL 9.4-12.3 NUCLEATED RED BLOOD CELLS (BEAKER) (test 0 /100 WBC 0-0 dyte=001) NEUTROPHILS RELATIVE PERCENT (BEAKER) (test 43 % rlct=958) LYMPHOCYTES RELATIVE PERCENT (BEAKER) (test 49 % sunc=042) MONOCYTES RELATIVE PERCENT (BEAKER) (test 7 % fugm=245) EOSINOPHILS RELATIVE PERCENT (BEAKER) (test 1 % ivfs=049) BASOPHILS RELATIVE PERCENT (BEAKER) (test 0 % uaqg=290) NEUTROPHILS ABSOLUTE COUNT (BEAKER) (test 2.34 K/ L 1.56-6.13 lbkm=300) LYMPHOCYTES ABSOLUTE COUNT (BEAKER) (test 2.68 K/ L 1.18-3.74 eheb=150) MONOCYTES ABSOLUTE COUNT (BEAKER) (test 0.38 K/ L 0.24-0.36 cill=581) EOSINOPHILS ABSOLUTE COUNT (BEAKER) (test 0.05 K/ L 0.04-0.36 pniu=853) BASOPHILS ABSOLUTE COUNT (BEAKER) (test 0.02 K/ L 0.01-0.08 tytk=146) IMMATURE GRANULOCYTES-RELATIVE PERCENT (BEAKER) 0 % 0-1 (test hzci=0719) [id number] 19:07:00 Test Item Value Reference Range Comments MAGNESIUM (BEAKER) (test ifgd=295) 1.9 mg/dL 1.6-2.6 BASIC METABOLIC [id number] 19:07:00 Test Item Value Reference Range Comments SODIUM (BEAKER) (test 137 meq/L 136-145 ryer=251) POTASSIUM (BEAKER) (test 3.8 meq/L 3.5-5.1 lkwi=480) CHLORIDE (BEAKER) (test 106 meq/L 98-107 hbii=813) CO2 (BEAKER) (test 23 meq/L 22-29 pgzt=044) BLOOD UREA NITROGEN 6 mg/dL 7-21 (BEAKER) (test yrkw=724) CREATININE (BEAKER) (test 0.64 mg/dL 0.57-1.25 pvpr=862) GLUCOSE RANDOM (BEAKER) 82 mg/dL 70-105 (test smhc=931) CALCIUM (BEAKER) (test 8.5 mg/dL 8.4-10.2 ydbp=020) EGFR (BEAKER) (test 88 mL/min/1.73 sq m ESTIMATED GFR IS NOT bryx=9907) ACCURATE CREATININE CLEARANCE IN PREDICTING GLOMERULAR FILTRATION RATE. ESTIMATED GFR IS NOT APPLICABLE FOR DIALYSIS PATIENTS. CBC (HEMOGRAM ONLY)2017-09-16 18:38:00 Test Item Value Reference Range Comments WHITE BLOOD CELL COUNT (BEAKER) (test eojw=657) 6.5 K/ L 3.5-10.5 RED BLOOD CELL COUNT (BEAKER) (test usgx=043) 3.61 M/ L 3.93-5.22 HEMOGLOBIN (BEAKER) (test hkzr=117) 10.9 GM/DL 11.2-15.7 HEMATOCRIT (BEAKER) (test qcwd=914) 33.5 % 34.1-44.9 MEAN CORPUSCULAR VOLUME (BEAKER) (test ichp=967) 92.8 fL 79.4-94.8 MEAN CORPUSCULAR HEMOGLOBIN (BEAKER) (test 30.2 pg 25.6-32.2 vzga=595) MEAN CORPUSCULAR HEMOGLOBIN CONC (BEAKER) (test 32.5 GM/DL 32.2-35.5 piwr=575) RED CELL DISTRIBUTION WIDTH (BEAKER) (test 19.8 % 11.7-14.4 rggs=109) PLATELET COUNT (BEAKER) (test zwap=262) 239 K/CU MM 150-450 MEAN PLATELET VOLUME (BEAKER) (test zfjn=069) 8.7 fL 9.4-12.3 NUCLEATED RED BLOOD CELLS (BEAKER) (test 0 /100 WBC 0-0 ywdn=138) [id number] 06:56:00 Test Item Value Reference Range Comments PHOSPHORUS (BEAKER) (test gesy=689) 2.7 mg/dL 2.3-4.7 [id number] 06:56:00 Test Item Value Reference Range Comments MAGNESIUM (BEAKER) (test vhtu=688) 1.9 mg/dL 1.6-2.6 BASIC METABOLIC [id number] 06:56:00 Test Item Value Reference Range Comments SODIUM (BEAKER) (test 139 meq/L 136-145 aqtd=653) POTASSIUM (BEAKER) (test 4.1 meq/L 3.5-5.1 rypu=508) CHLORIDE (BEAKER) (test 107 meq/L 98-107 phqs=428) CO2 (BEAKER) (test 26 meq/L 22-29 xcpc=410) BLOOD UREA NITROGEN 11 mg/dL 7-21 (BEAKER) (test tcio=984) CREATININE (BEAKER) (test 0.73 mg/dL 0.57-1.25 wwcf=939) GLUCOSE RANDOM (BEAKER) 107 mg/dL 70-105 (test zngs=451) CALCIUM (BEAKER) (test 8.5 mg/dL 8.4-10.2 iiob=519) EGFR (BEAKER) (test 76 mL/min/1.73 sq m ESTIMATED GFR IS NOT bvqg=7956) ACCURATE CREATININE CLEARANCE IN PREDICTING GLOMERULAR FILTRATION RATE. ESTIMATED GFR IS NOT APPLICABLE FOR DIALYSIS PATIENTS. HEPATIC FUNCTION [id number] 06:56:00 Test Item Value Reference Range Comments TOTAL PROTEIN (BEAKER) (test kiyl=920) 5.2 gm/dL 6.0-8.3 ALBUMIN (BEAKER) (test vnnw=4997) 2.9 g/dL 3.5-5.0 BILIRUBIN TOTAL (BEAKER) (test xhsn=902) 0.8 mg/dL 0.2-1.2 BILIRUBIN DIRECT (BEAKER) (test fdss=413) 0.4 mg/dL 0.1-0.5 ALKALINE PHOSPHATASE (BEAKER) (test znqa=684) 43 U/L 40-150 AST (SGOT) (BEAKER) (test qbgy=216) 13 U/L 5-34 ALT (SGPT) (BEAKER) (test jayu=362) 10 U/L 6-55 CALCIUM, [id number] 06:36:00 Test Item Value Reference Range Comments CALCIUM IONIZED (BEAKER) (test zsao=663) 1.05 mmol/L 1.12-1.27 PH, BLOOD (BEAKER) (test yawh=2217) 7.46 PROTHROMBIN [id number] 06:35:00 Test Item Value Reference Range Comments PROTIME (BEAKER) (test rlir=783) 14.2 seconds 11.7-14.7 INR (BEAKER) (test kwwu=707) 1.1 <=5.9 RECOMMENDED COUMADIN/WARFARIN INR THERAPY RANGESSTANDARD DOSE: 2.0 - 3.0 Includes: PROPHYLAXIS forvenous thrombosis, systemic embolization; TREATMENT for venous thrombosis and/or pulmonary embolus.HIGH RISK: Target INR is 2.5-3.5 for patients with mechanical heart valves.CBC W/PLT COUNT & AUTO [id number] 06:25:00 Test Item Value Reference Range Comments WHITE BLOOD CELL COUNT (BEAKER) (test ufla=552) 9.4 K/ L 3.5-10.5 RED BLOOD CELL COUNT (BEAKER) (test hbnw=675) 3.48 M/ L 3.93-5.22 HEMOGLOBIN (BEAKER) (test xhdr=653) 10.0 GM/DL 11.2-15.7 HEMATOCRIT (BEAKER) (test uwzm=763) 31.1 % 34.1-44.9 MEAN CORPUSCULAR VOLUME (BEAKER) (test hhnn=178) 89.4 fL 79.4-94.8 MEAN CORPUSCULAR HEMOGLOBIN (BEAKER) (test 28.7 pg 25.6-32.2 kbpg=484) MEAN CORPUSCULAR HEMOGLOBIN CONC (BEAKER) (test 32.2 GM/DL 32.2-35.5 pzke=919) RED CELL DISTRIBUTION WIDTH (BEAKER) (test 18.3 % 11.7-14.4 cecz=339) PLATELET COUNT (BEAKER) (test vzrp=336) 234 K/CU MM 150-450 MEAN PLATELET VOLUME (BEAKER) (test xptr=959) 8.9 fL 9.4-12.3 NUCLEATED RED BLOOD CELLS (BEAKER) (test 0 /100 WBC 0-0 rbvr=721) NEUTROPHILS RELATIVE PERCENT (BEAKER) (test 70 % klgp=664) LYMPHOCYTES RELATIVE PERCENT (BEAKER) (test 24 % uedv=944) MONOCYTES RELATIVE PERCENT (BEAKER) (test 5 % wftu=343) EOSINOPHILS RELATIVE PERCENT (BEAKER) (test 0 % klyb=554) BASOPHILS RELATIVE PERCENT (BEAKER) (test 0 % nbxs=468) NEUTROPHILS ABSOLUTE COUNT (BEAKER) (test 6.54 K/ L 1.56-6.13 uyie=383) LYMPHOCYTES ABSOLUTE COUNT (BEAKER) (test 2.30 K/ L 1.18-3.74 rkux=330) MONOCYTES ABSOLUTE COUNT (BEAKER) (test 0.50 K/ L 0.24-0.36 zyuc=918) EOSINOPHILS ABSOLUTE COUNT (BEAKER) (test 0.03 K/ L 0.04-0.36 rdew=730) BASOPHILS ABSOLUTE COUNT (BEAKER) (test 0.02 K/ L 0.01-0.08 dfdr=703) IMMATURE GRANULOCYTES-RELATIVE PERCENT (BEAKER) 0 % 0-1 (test hqwd=7345) TISSUE [id number] 14:52:00Surgical Pathology Report Case: [id number] Authorizing Provider: Ricardo Wilson MD Collected: 08/02/2017 1715 Ordering Location: [facility] Endoscopy Received: 08/03/2017 0837 Services Pathologist: Larry Cohn MD Specimen: Rectal, MASS- TAKEN BY ESD, ON WAX, EVALUATE MARGINS RECTAL, 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)- NEGATIVE FOR HIGH GRADE DYSPLASIA OR CARCINOMA- PERIPHERAL MARGINS, NEGATIVE FOR ADENOMATOUS CHANGE Signing Pathologist Direct Phone Line: [phone] signed by Larry Cohn MD on 08/04/2017 at 2:52 [id number] Rectal mass Received in formalin labeled [...] the diagnostic line.CBC W/PLT COUNT & AUTO [id number] 06:19:00 Test Item Value Reference Range Comments WHITE BLOOD CELL COUNT (BEAKER) (test zkyq=610) 15.6 K/ L 3.5-10.5 RED BLOOD CELL COUNT (BEAKER) (test upox=337) 3.50 M/ L 3.93-5.22 HEMOGLOBIN (BEAKER) (test thdb=958) 9.9 GM/DL 11.2-15.7 HEMATOCRIT (BEAKER) (test juaw=578) 31.4 % 34.1-44.9 MEAN CORPUSCULAR VOLUME (BEAKER) (test dqcf=347) 89.7 fL 79.4-94.8 MEAN CORPUSCULAR HEMOGLOBIN (BEAKER) (test 28.3 pg 25.6-32.2 wymj=632) MEAN CORPUSCULAR HEMOGLOBIN CONC (BEAKER) (test 31.5 GM/DL 32.2-35.5 cokp=927) RED CELL DISTRIBUTION WIDTH (BEAKER) (test 18.0 % 11.7-14.4 lkpo=337) PLATELET COUNT (BEAKER) (test bgom=200) 223 K/CU MM 150-450 MEAN PLATELET VOLUME (BEAKER) (test awcg=153) 8.7 fL 9.4-12.3 NUCLEATED RED BLOOD CELLS (BEAKER) (test 0 /100 WBC 0-0 pyyi=221) NEUTROPHILS RELATIVE PERCENT (BEAKER) (test 81 % exdg=258) LYMPHOCYTES RELATIVE PERCENT (BEAKER) (test 15 % lptg=360) MONOCYTES RELATIVE PERCENT (BEAKER) (test 4 % godd=902) EOSINOPHILS RELATIVE PERCENT (BEAKER) (test 0 % ojjo=103) BASOPHILS RELATIVE PERCENT (BEAKER) (test 0 % wwbx=633) NEUTROPHILS ABSOLUTE COUNT (BEAKER) (test 12.56 K/ L 1.56-6.13 tnbq=504) LYMPHOCYTES ABSOLUTE COUNT (BEAKER) (test 2.36 K/ L 1.18-3.74 hcbq=096) MONOCYTES ABSOLUTE COUNT (BEAKER) (test 0.56 K/ L 0.24-0.36 upus=896) EOSINOPHILS ABSOLUTE COUNT (BEAKER) (test 0.03 K/ L 0.04-0.36 fyhv=521) BASOPHILS ABSOLUTE COUNT (BEAKER) (test 0.02 K/ L 0.01-0.08 surw=575) IMMATURE GRANULOCYTES-RELATIVE PERCENT (BEAKER) 0 % 0-1 (test nvxg=6999) HEPATIC FUNCTION [id number] 06:15:00 Test Item Value Reference Range Comments TOTAL PROTEIN (BEAKER) (test fjwy=150) 4.9 gm/dL 6.0-8.3 ALBUMIN (BEAKER) (test pbbo=5337) 2.8 g/dL 3.5-5.0 BILIRUBIN TOTAL (BEAKER) (test blgh=891) 1.1 mg/dL 0.2-1.2 BILIRUBIN DIRECT (BEAKER) (test wlri=222) 0.5 mg/dL 0.1-0.5 ALKALINE PHOSPHATASE (BEAKER) (test gurg=102) 42 U/L 40-150 AST (SGOT) (BEAKER) (test gipx=491) 15 U/L 5-34 ALT (SGPT) (BEAKER) (test uesm=680) 12 U/L 6-55 BASIC METABOLIC [id number] 06:15:00 Test Item Value Reference Range Comments SODIUM (BEAKER) (test 139 meq/L 136-145 edsz=023) POTASSIUM (BEAKER) (test 4.6 meq/L 3.5-5.1 mfvz=385) CHLORIDE (BEAKER) (test 108 meq/L 98-107 pitg=295) CO2 (BEAKER) (test 25 meq/L 22-29 sobi=203) BLOOD UREA NITROGEN 13 mg/dL 7-21 (BEAKER) (test lnoc=294) CREATININE (BEAKER) (test 0.73 mg/dL 0.57-1.25 mfim=708) GLUCOSE RANDOM (BEAKER) 115 mg/dL 70-105 (test bccn=511) CALCIUM (BEAKER) (test 8.5 mg/dL 8.4-10.2 ahjr=712) EGFR (BEAKER) (test 76 mL/min/1.73 sq m ESTIMATED GFR IS NOT wwxi=2688) ACCURATE CREATININE CLEARANCE IN PREDICTING GLOMERULAR FILTRATION RATE. ESTIMATED GFR IS NOT APPLICABLE FOR DIALYSIS PATIENTS. PROTHROMBIN [id number] 05:59:00 Test Item Value Reference Range Comments PROTIME (BEAKER) (test eefq=060) 14.6 seconds 11.7-14.7 INR (BEAKER) (test ugnu=754) 1.1 <=5.9 RECOMMENDED COUMADIN/WARFARIN INR THERAPY RANGESSTANDARD DOSE: 2.0 - 3.0 Includes: PROPHYLAXIS forvenous thrombosis, systemic embolization; TREATMENT for venous thrombosis and/or pulmonary embolus.HIGH RISK: Target INR is 2.5-3.5 for patients with mechanical heart valves.URINALYSIS W/ [id number] 14 :53:00 Test Item Value Reference Range Comments COLOR (BEAKER) (test rxyo=029) Yellow CLARITY (BEAKER) (test ngbe=527) Clear SPECIFIC GRAVITY UA (BEAKER) (test rhux=931) 1.010 1.001-1.035 PH UA (BEAKER) (test znvw=341) 5.5 5.0-8.0 PROTEIN UA (BEAKER) (test mtuz=965) Negative Negative GLUCOSE UA (BEAKER) (test wvyp=617) Negative Negative KETONES UA (BEAKER) (test nvea=364) Trace Negative BILIRUBIN UA (BEAKER) (test jrny=916) Negative Negative BLOOD UA (BEAKER) (test jepb=371) Negative Negative NITRITE UA (BEAKER) (test wndo=711) Negative Negative LEUKOCYTE ESTERASE UA (BEAKER) (test saeh=375) Negative Negative UROBILINOGEN UA (BEAKER) (test wkdq=730) 0.2 mg/dL 0.2-1.0 RBC UA (BEAKER) (test ezti=765) 1 /HPF WBC UA (BEAKER) (test jndj=911) 3 /HPF MUCUS (BEAKER) (test cpoj=6430) Few SQUAMOUS EPITHELIAL (BEAKER) (test suop=960) < /HPF HYALINE CASTS (BEAKER) (test uhiq=885) 2 /LPF SOURCE(BEAKER) (test jilj=9109) HEPATIC FUNCTION [id number] 06:31:00 Test Item Value Reference Range Comments TOTAL PROTEIN (BEAKER) (test eomf=879) 5.2 gm/dL 6.0-8.3 ALBUMIN (BEAKER) (test egtx=1640) 3.1 g/dL 3.5-5.0 BILIRUBIN TOTAL (BEAKER) (test eoaq=496) 1.1 mg/dL 0.2-1.2 BILIRUBIN DIRECT (BEAKER) (test cpqs=047) 0.5 mg/dL 0.1-0.5 ALKALINE PHOSPHATASE (BEAKER) (test oefk=909) 47 U/L 40-150 AST (SGOT) (BEAKER) (test gzoi=944) 20 U/L 5-34 ALT (SGPT) (BEAKER) (test xkvs=241) 15 U/L 6-55 BASIC METABOLIC [id number] 06:31:00 Test Item Value Reference Range Comments SODIUM (BEAKER) (test 139 meq/L 136-145 iedg=345) POTASSIUM (BEAKER) (test 2.7 meq/L 3.5-5.1 utkg=772) CHLORIDE (BEAKER) (test 106 meq/L 98-107 jakl=453) CO2 (BEAKER) (test 24 meq/L 22-29 uvci=008) BLOOD UREA NITROGEN 7 mg/dL 7-21 (BEAKER) (test mmqu=250) CREATININE (BEAKER) (test 0.61 mg/dL 0.57-1.25 wmoy=177) GLUCOSE RANDOM (BEAKER) 88 mg/dL 70-105 (test bfcx=593) CALCIUM (BEAKER) (test 8.4 mg/dL 8.4-10.2 rdot=032) EGFR (BEAKER) (test 93 mL/min/1.73 sq m ESTIMATED GFR IS NOT uagi=4973) ACCURATE CREATININE CLEARANCE IN PREDICTING GLOMERULAR FILTRATION RATE. ESTIMATED GFR IS NOT APPLICABLE FOR DIALYSIS PATIENTS. BASIC METABOLIC [id number] 06:30:00 Test Item Value Reference Range Comments SODIUM (BEAKER) (test 136 meq/L 136-145 gwyr=735) POTASSIUM (BEAKER) (test 3.0 meq/L 3.5-5.1 Specimen slightly mrcd=867) hemolyzed CHLORIDE (BEAKER) (test 106 meq/L 98-107 smxr=545) CO2 (BEAKER) (test 20 meq/L 22-29 jlic=758) BLOOD UREA NITROGEN 7 mg/dL 7-21 (BEAKER) (test kkrk=508) CREATININE (BEAKER) (test 0.61 mg/dL 0.57-1.25 Specimen slightly tmxq=266) hemolyzed GLUCOSE RANDOM (BEAKER) 81 mg/dL 70-105 (test jnzc=419) CALCIUM (BEAKER) (test 8.2 mg/dL 8.4-10.2 feun=718) EGFR (BEAKER) (test 93 mL/min/1.73 sq m ESTIMATED GFR IS NOT ptke=5606) ACCURATE CREATININE CLEARANCE IN PREDICTING GLOMERULAR FILTRATION RATE. ESTIMATED GFR IS NOT APPLICABLE FOR DIALYSIS PATIENTS. CBC W/PLT COUNT & AUTO [id number] 06:25:00 Test Item Value Reference Range Comments WHITE BLOOD CELL COUNT (BEAKER) (test xeyr=949) 14.6 K/ L 3.5-10.5 RED BLOOD CELL COUNT (BEAKER) (test wqio=384) 3.75 M/ L 3.93-5.22 HEMOGLOBIN (BEAKER) (test dprn=713) 10.5 GM/DL 11.2-15.7 HEMATOCRIT (BEAKER) (test vkxk=606) 33.1 % 34.1-44.9 MEAN CORPUSCULAR VOLUME (BEAKER) (test weme=534) 88.3 fL 79.4-94.8 MEAN CORPUSCULAR HEMOGLOBIN (BEAKER) (test 28.0 pg 25.6-32.2 qgqi=811) MEAN CORPUSCULAR HEMOGLOBIN CONC (BEAKER) (test 31.7 GM/DL 32.2-35.5 cvel=630) RED CELL DISTRIBUTION WIDTH (BEAKER) (test 17.5 % 11.7-14.4 bhnn=289) PLATELET COUNT (BEAKER) (test vppt=990) 246 K/CU MM 150-450 MEAN PLATELET VOLUME (BEAKER) (test otub=845) 8.9 fL 9.4-12.3 NUCLEATED RED BLOOD CELLS (BEAKER) (test 0 /100 WBC 0-0 wjhk=896) NEUTROPHILS RELATIVE PERCENT (BEAKER) (test 88 % hcgm=651) LYMPHOCYTES RELATIVE PERCENT (BEAKER) (test 5 % mwsr=684) MONOCYTES RELATIVE PERCENT (BEAKER) (test 6 % qphl=264) EOSINOPHILS RELATIVE PERCENT (BEAKER) (test 0 % pllg=063) BASOPHILS RELATIVE PERCENT (BEAKER) (test 0 % sxmy=539) NEUTROPHILS ABSOLUTE COUNT (BEAKER) (test 12.85 K/ L 1.56-6.13 zlxl=952) LYMPHOCYTES ABSOLUTE COUNT (BEAKER) (test 0.71 K/ L 1.18-3.74 kqld=697) MONOCYTES ABSOLUTE COUNT (BEAKER) (test 0.94 K/ L 0.24-0.36 fqhl=431) EOSINOPHILS ABSOLUTE COUNT (BEAKER) (test 0.00 K/ L 0.04-0.36 cbrv=174) BASOPHILS ABSOLUTE COUNT (BEAKER) (test 0.02 K/ L 0.01-0.08 lrtx=151) IMMATURE GRANULOCYTES-RELATIVE PERCENT (BEAKER) 1 % 0-1 (test hlwo=5539) PROTHROMBIN [id number] 06:21:00 Test Item Value Reference Range Comments PROTIME (BEAKER) (test fods=958) 13.5 seconds 11.7-14.7 INR (BEAKER) (test tqpk=966) 1.0 <=5.9 RECOMMENDED COUMADIN/WARFARIN INR THERAPY RANGESSTANDARD DOSE: 2.0 - 3.0 Includes: PROPHYLAXIS forvenous thrombosis, systemic embolization; TREATMENT for venous thrombosis and/or pulmonary embolus.HIGH RISK: Target INR is 2.5-3.5 for patients with mechanical heart valves.
[2018-04-14 14:57] LABS: Absolute Lymphocytes (CBC) 1.8 K/uL (0.7-4.9); Absolute Monocytes 0.1 K/uL (0.1-1.3); Absolute Neutrophil 4.8 K/uL (1.8-8.0); Basophils % 0.2 % (0-1.3); Hematocrit 38.9 % (36.0-45.0); Lymphocytes % 26.7 % (15.3-44.8); MPV 6.8 fL (7.6-11.3); RBC Red Blood Cell Count 4.19 M/uL (3.86-4.86)
[2018-04-14 15:11] LABS: Potassium 3.7 mmol/L (3.5-5.1)
--- NOTE | 2018-04-14 15:20 | RAD REPORT ---
EXAM DESCRIPTION: RAD - Chest Single View - 04/14/2018 3:06 pm CLINICAL HISTORY: Cough and congestion COMPARISON: January 2018 TECHNIQUE: AP portable chest image was obtained 1456 hours . FINDINGS: Chronic interstitial lung disease is present. No peripheral mass or consolidation. Small g ranuloma noted. No failure or volume overload findings. Heart and vasculature are normal. No measurab le pleural effusion and no pneumothorax. No acute bony abnormality seen. No acute aortic findings sangeetha pected. IMPRESSION: Chronic interstitial lung disease similar to comparison. No acute finding.
[2018-04-14] MEDS ORDERED: LEVALBUTEROL 1.25 MG/3 ML NEB ONE (15:54)
--- NOTE | 2018-04-14 17:11 | ER ---
Nurse's Notes [facility] Name: Elva Jenkins Age: 87 yrs Sex: Female : 1930 Arrival Date: 04/14/2018 Time: 13:58 Bed 15 Private MD: Bharti Brown C Diagnosis: Chronic obstructive pulmonary disease with (acute) exacerbation Presentation: 04/14 13:59 Presenting complaint: Patient states: HAVE BEEN HAVING TROUBLE WITH COUGH FOR A FEW ls4 WEEKS. WENT TO DR BROWN. GOT PREDNISONE INCREASED AND AN ANTIBIOTIC. YESTERDAY FELT BETTER. TODAY FEELING WORSE AGAIN. Transition of care: patient was received from another setting of care (long-term care facility), [facility]. Onset of symptoms was April 14, 2018. Risk Assessment: Do you want to hurt yourself or someone else? Patient reports no desire to harm self or others. Initial Sepsis Screen: Does the patient meet any 2 criteria? No. Patient's initial sepsis screen is negative. Does the patient have a suspected source of infection? No. Patient's initial sepsis screen is negative. Care prior to arrival: [facility]UM[facility]ROL, DUONEB TREATMENT. IV IN RIGHT AC 20 G. 13:59 Method Of Arrival: EMS: [facility] ls4 13:59 Acuity: TAVON 3 ls4 Triage Assessment: 14:07 General: Appears in no apparent distress. Behavior is calm, cooperative. Pain: Denies ls4 pain. Respiratory: Reports shortness of breath Onset: The symptoms/episode began/occurred gradually, the patient has mild shortness of breath. Historical: - Immunization history:: Adult Immunizations up to date. - Social history:: Smoking status: Patient/guardian denies using tobacco, never smoked. - Ebola Screening: : Patient negative for fever greater than or equal to 101.5 degrees Fahrenheit, and additional compatible Ebola Virus Disease symptoms Patient denies exposure to infectious person Patient denies travel to an Ebola-affected area in the 21 days before illness onset No symptoms or risks identified at this time. Screenin:11 Abuse screen: Denies threats or abuse. Denies injuries from another. Nutritional ls4 screening: No deficits noted. Tuberculosis screening: No symptoms or risk factors identified. Fall Risk None identified. Assessment: 14:10 Neuro: No deficits noted. Cardiovascular: Denies chest pain, Rhythm is regular. ls4 Respiratory: Airway is patent Respiratory effort is even, unlabored. Musculoskeletal: No deficits noted. 14:20 Respiratory: Breath sounds with wheezes bilaterally. ls4 16:58 Reassessment: No changes from previously documented assessment. Patient and/or family ls4 updated on plan of care and expected duration. Pain level reassessed. Vital Signs: 14:07 BP 135 / 65; Pulse 93; Resp 16; Temp 98.9; Pulse Ox 99% on R/A; Pain 3/10; ls4 15:07 BP 136 / 68; Pulse 89; Resp 19; Pulse Ox 97% on R/A; Pain 3/10; ls4 16:21 BP 135 / 69; Pulse 88; Resp 16; Pulse Ox 99% on R/A; ls4 17:13 BP 130 / 72; Pulse 92; Resp 20; Temp 98.4(O); Pulse Ox 97% on R/A; Pain 3/10; ls4 ED Course: 13:58 Patient arrived in ED. ls4 13:58 Bharti Brown MD is Private Physician. ls4 13:59 Elise Cheung, GUME is Primary Nurse. ls4 14:02 Triage completed. ls4 14:07 Arm band placed on left wrist. ls4 14:23 Ana M Gan F[facility]-C [facility]. kb 14:23 Bismark Adams MD is Attending Physician. kb 14:42 Urine collected: clean catch specimen, clear. mh5 14:42 Urine Dipstick--Ancillary (enter results) Sent. mh5 14:43 Patient has correct armband on for positive identification. Placed in gown. Bed in low mh5 position. Call light in reach. Side rails up X2. Warm blanket given. Pillow given. Pulse ox on. NIBP on. 14:52 No provider procedures requiring assistance completed. ls4 14:52 Inserted Maintain EMS IV. Dressing intact. Good blood return noted. Site clean \T\ dry. ls4 Gauge \T\ site: 20 g right ac . Flushed right antecubital saline lock. 15:06 Chest Single View XRAY In Process Unspecified. EDMS 16:26 Blood Culture Adult (2) Sent. ls4 16:26 Basic Metabolic Panel Sent. ls4 16:26 CBC with Diff Sent. ls4 17:10 Bharti Brown MD is Referral Physician. kb 17:43 IV discontinued, intact, bleeding controlled, No redness/swelling at site. Pressure ls4 dressing applied. Administered Medications: 15:47 Drug: Xopenex (3) 1.25 mg Route: Inhalation; ls4 16:20 Follow up: Response: No adverse reaction; Marked relief of symptoms ls4 Outcome: 17:11 Discharge ordered by . kisha 17:43 Discharged to home ambulatory, with family. ls4 17:43 Condition: good 17:43 Discharge instructions given to patient, family, Instructed on discharge instructions, follow up and referral plans. medication usage, Demonstrated understanding of instructions, follow-up care, medications. 17:44 Patient left the ED. ls4 Signatures: Dispatcher [employer] EDMS Ana M Gan, GÓMEZ BENTLEY-Tabby [facility] Elise Cheung, GUME RN ls4
--- NOTE | 2018-04-14 17:12 | EDPHYS ---
Physician Documentation [facility] Name: Elva Jenkins Age: 87 yrs Sex: Female : 1930 Arrival Date: 04/14/2018 Time: 13:58 Bed 15 Private MD: Bharti Pollock C ED Physician Bismark Adams HPI: 04/14 16:10 This 87 yrs old Female presents to ER via EMS with complaints of Shortness Of kb Breath. 16:10 The patient has experienced similar episodes in the past, multiple times. The patient kb has been recently seen by a physician: the patient's primary care provider, Dr. Pollock with similar presenting complaints, was given a prescription for antibiotics. 16:10 The patient or guardian reports cough, that is intermittent, described as moderate, kb with productive sputum, difficulty breathing. Onset: The symptoms/episode began/occurred 1 week(s) ago. Severity of symptoms: At their worst the symptoms were moderate, in the emergency department the symptoms are unchanged. Modifying factors: The symptoms are alleviated by nebulizer treatment, the symptoms are aggravated by nothing. Associated signs and symptoms: Pertinent positives: fever, Pertinent negatives: chest pain, diarrhea, ear ache, nausea, rhinorrhea, sore throat, vomiting. Pt reports cough and low grade fever that started last week. Cough got worse so she went to Dr Pollock on Tuesday and was given a z-pack and increased her prednisone. Today got into a coughing fit, wheezing and had shortness of breath so she called 911. EMS gave Solumedrol 125mg IV and an A\\T\\A treatment. Pt reports she is feeling better now. Started to do a neb treatment just prior to EMS arrival, but did not try it prior to that. Historical: - Immunization history:: Adult Immunizations up to date. - Social history:: Smoking status: Patient/guardian denies using tobacco, never smoked. - Ebola Screening: : Patient negative for fever greater than or equal to 101.5 degrees Fahrenheit, and additional compatible Ebola Virus Disease symptoms Patient denies exposure to infectious person Patient denies travel to an Ebola-affected area in the 21 days before illness onset No symptoms or risks identified at this time. ROS: 16:09 ENT: Negative for injury, pain, and discharge, Cardiovascular: Negative for chest pain, kb palpitations, and edema, Abdomen/GI: Negative for abdominal pain, nausea, vomiting, diarrhea, and constipation, Back: Negative for injury and pain, : Negative for injury, bleeding, discharge, and swelling, MS/Extremity: Negative for injury and deformity, Skin: Negative for injury, rash, and discoloration, Neuro: Negative for headache, weakness, numbness, tingling, and seizure. 16:09 Constitutional: Positive for fever, Negative for body aches, chills, fatigue, malaise, poor PO intake, weight loss. 16:09 Respiratory: Positive for cough, "sounds productive", shortness of breath, wheezing, Negative for hemoptysis, orthopnea, pleurisy, acute changes. Exam: 16:09 Constitutional: This is a well developed, well nourished patient who is awake, alert, kb and in no acute distress. Head/Face: Normocephalic, atraumatic. Chest/axilla: Normal chest wall appearance and motion. Nontender with no deformity. No lesions are appreciated. Cardiovascular: Regular rate and rhythm with a normal S1 and S2. No gallops, murmurs, or rubs. Normal PMI, no JVD. No pulse deficits. Abdomen/GI: Soft, non-tender, with normal bowel sounds. No distension or tympany. No guarding or rebound. No evidence of tenderness throughout. Back: No spinal tenderness. No costovertebral tenderness. Full range of motion. Skin: Warm, dry with normal turgor. Normal color with no rashes, no lesions, and no evidence of cellulitis. MS/ Extremity: Pulses equal, no cyanosis. Neurovascular intact. Full, normal range of motion. Neuro: Awake and alert, GCS 15, oriented to person, place, time, and situation. Cranial nerves II-XII grossly intact. Motor strength 5/5 in all extremities. Sensory grossly intact. Cerebellar exam normal. Normal gait. 16:09 Respiratory: the patient does not display signs of respiratory distress, Respirations: normal, Breath sounds: wheezing: expiratory that is moderate, is heard in the right middle lobe, right lower lobe and right posterior lower lobe. Vital Signs: 14:07 BP 135 / 65; Pulse 93; Resp 16; Temp 98.9; Pulse Ox 99% on R/A; Pain 3/10; ls4 15:07 BP 136 / 68; Pulse 89; Resp 19; Pulse Ox 97% on R/A; Pain 3/10; ls4 16:21 BP 135 / 69; Pulse 88; Resp 16; Pulse Ox 99% on R/A; ls4 17:13 BP 130 / 72; Pulse 92; Resp 20; Temp 98.4(O); Pulse Ox 97% on R/A; Pain 3/10; ls4 MDM: 14:23 Patient medically screened. kb 16:08 Data reviewed: vital signs, nurses notes. Data interpreted: Pulse oximetry: on room air kb is 95 %. Interpretation: normal. Counseling: I had a detailed discussion with the patient and/or guardian regarding: the historical points, exam findings, and any diagnostic results supporting the discharge/admit diagnosis, lab results, radiology results, the need for outpatient follow up, a family practitioner, to return to the emergency department if symptoms worsen or persist or if there are any questions or concerns that arise at home. Physician consultation: A Maris PALOMARES was contacted at 16:09, regarding consult, patient's condition, and will see patient in office. 17:11 ED course: Pt reports she feels much better. Minimal wheezing in bilateral bases after kb treatment. educated to continue treatment prescribed by Dr Pollock, follow up with him in office and return for worsening symptoms. Verbal understanding received. . 04/14 14:35 Order name: CBC with Diff 04/14 14:35 Order name: Basic Metabolic Panel kb 04/14 14:35 Order name: Blood Culture Adult (2) kb 04/14 14:35 Order name: Flu; Complete Time: 15:23 kb 04/14 14:35 Order name: Lactate; Complete Time: 15:23 kb 04/14 14:35 Order name: Procalcitonin; Complete Time: 15:36 kb 04/14 14:35 Order name: Chest Single View XRAY; Complete Time: 15:23 kb 04/14 14:35 Order name: CBC with Automated Diff; Complete Time: 15:09 EDMS 04/14 14:35 Order name: Basic Metabolic Panel; Complete Time: 15:14 EDMS 04/14 14:35 Order name: Blood Culture EDMS 04/14 14:40 Order name: Urine Dipstick--Ancillary (enter results); Complete Time: 17:21 eb Administered Medications: 15:47 Drug: Xopenex (3) 1.25 mg Route: Inhalation; ls4 16:20 Follow up: Response: No adverse reaction; Marked relief of symptoms ls4 Disposition: 04/14/18 17:11 Discharged to Home. Impression: Chronic obstructive pulmonary disease with (acute) exacerbation. - Condition is Stable. - Discharge Instructions: Chronic Obstructive Pulmonary Disease Exacerbation. - Medication Reconciliation Form, Thank You Letter, Antibiotic Education, Prescription Opioid Use form. - Follow up: Emergency Department; When: As needed; Reason: Worsening of condition. Follow up: Bharti Pollock MD; When: 2 - 3 days; Reason: Recheck today's complaints, Continuance of care, Re-evaluation by your physician. Addendum: 04/17/2018 07:16 Co-signature as Attending Physician, Bismark Adams MD I agree with the assessment and k dr plan of care. Signatures: Dispatcher [employer] EDAK Ana M Gan, [employer]ODUCTION SUPERVISOR-Ckb Bismark Adams MD MD [facility] Elise Cheung RN RN ls4 Corrections: (The following items were deleted from the chart) 04/14 17:20 17:11 04/14/2018 17:11 Discharged to Home. Impression: Chronic obstructive pulmonary ls4 disease with (acute) exacerbation. Condition is Stable. Forms are Medication Reconciliation Form, Thank You Letter, Antibiotic Education, Prescription Opioid Use. Follow up: Emergency Department; When: As needed; Reason: Worsening of condition. Follow up: A Pollock; When: 2 - 3 days; Reason: Recheck today's complaints, Continuance of care, Re-evaluation by your physician. kb 17:44 17:20 04/14/2018 17:11 Discharged to Home. Impression: Chronic obstructive pulmonary ls4 disease with (acute) exacerbation. Condition is Stable. Discharge Instructions: Chronic Obstructive Pulmonary Disease Exacerbation. Forms are Medication Reconciliation Form, Thank You Letter, Antibiotic Education, Prescription Opioid Use. Follow up: Emergency Department; When: As needed; Reason: Worsening of condition. Follow up: A Pollock; When: 2 - 3 days; Reason: Recheck today's complaints, Continuance of care, Re-evaluation by your physician. ls4
[2018-04-14 17:17] LABS: Urine Blood TRACE (NEG); Urine Glucose NEGATIVE (NEG); Urine Protein NEGATIVE (NEG); Urine Specific Gravity 1.015 (1.005-1.030); Urine pH 7.5 (5.0-7.0)
[2018-04-14 18:13] VITALS: BP 130/72; TEMP 98.4; O2SAT 97
== END 2018-04-14 17:44 | disposition home or self-care (01) ==
LOC: ER 13:52
DX: J44.1 Chronic obstructive pulmonary disease with (acute) exacerbation (principal)
CPT/HCPCS: 36415; 71045; 80048; 81003; 83605; 84145; 85025; 87040; 87205; 87804; 99284

== ENCOUNTER 2018-08-13 20:00 | Emergency (ER) | payer OTHER ==
--- OUTSIDE RECORDS SUMMARY | 2018-08-13 20:04 | XMS REPORT | Clinical Summary ---
:1930 Author Organization [facility] Address [address] [place] [address] Care Team Providers Name Role Phone Asked, [...] days. lisinopril Take 10 mg by 0 Discontinued (PRINIVIL,ZESTRIL) mouth daily. 8 10 mg tablet furosemide (LASIX) Take 20 mg by 0 Discontinued 20 mg tablet mouth 2 (two) 8 times a day. rivaroxaban Take 20 mg by 0 Discontinued (XARELTO) 20 mg mouth daily. 8 tablet torsemide Take 1 tablet (20 30 tablet 11 03/02/2018 (DEMADEX) 20 MG mg total) by 9 tablet mouth daily for 30 days. Active Problems Problem Noted Date Shortness of breath 02/28/2018 Hiatal hernia 03/31/2017 Encounters Date Type Specialty Care Team Description 02/28/2018 - Hospital Encounter General Internal Nino Lawrence, Shortness of breath (Primary Dx); 03/02/2018 Medicine Hiatal hernia Tobias Blanco MD 02/28/2018 Office Visit General Surgery Apple, Shortness of breath ( Primary Dx); Jose Alberto Ayala MD Hiatal hernia after 08/12/2017 Family History Medical History Relation Name Comments [...] Taken Blood Pressure 132/60 03/02/2018 12:02 PM GEOMAGNETICIAN Pulse 78 03/02/2018 12:02 PM GEOMAGNETICIAN Temperature 36.1 C (97 F) 03/02/2018 12:02 PM GEOMAGNETICIAN Respiratory Rate 14 03/02/2018 12:02 PM GEOMAGNETICIAN Oxygen Saturation 93% 03/02/2018 12:02 PM GEOMAGNETICIAN Inhaled Oxygen Concentration - - Weight 51.1 kg (112 lb 9.6 oz) 03/02/2018 5:13 AM GEOMAGNETICIAN Height - - Body Mass Index 22.74 04/12/2017 12:01 PM GEOMAGNETICIAN Plan of Treatment Health Maintenance Due Date Last Done Comments SHINGLES VACCINES (#1) 1981 65+ PNEUMOCOCCAL VACCINE (1 of 2 - PCV13) 1996 PNEUMOCOCCAL POLYSACCHARIDE VACCINE AGE 65 AND OVER 1996 INFLUENZA VACCINE 10/12/2018 Implants Implanted Type Area Conveyor Man Device Identifier Shelf Expiration Model / Date Serial / Lot Reveal Linq-02/02/2016 Implanted: Qty: 1 on 02/02/2016 Procedures Procedure Name Priority Date/Time Associated Comments Diagnosis ESTIMATED GFR Routine 03/02/2018 3:55 Results for this AM GEOMAGNETICIAN procedure are in the results section. THYROID STIMULATING Routine 03/02/2018 3:55 Results for this HORMONE AM GEOMAGNETICIAN procedure are in the results section. HC COMPLETE BLD COUNT Routine 03/02/2018 3:55 Results for this W/AUTO DIFF AM GEOMAGNETICIAN procedure are in the results section. BASIC METABOLIC PANEL Routine 03/02/2018 3:55 Results for this AM GEOMAGNETICIAN procedure are in the results section. US DUPLEX VENOUS LOWER Routine 03/01/2018 11:47 Results for this EXTREMITY BILATERAL AM GEOMAGNETICIAN procedure are in the results section. ECHOCARDIOGRAM 2D Routine 03/01/2018 7:35 Results for this COMPLETE W MMODE AM GEOMAGNETICIAN procedure are in SPECTRAL COLOR DOPPLER the results (29572) section. CBC WITH PLATELET AND Routine 03/01/2018 4:39 Results for this DIFFERENTIAL AM GEOMAGNETICIAN procedure are in the results section. ESTIMATED GFR Routine 03/01/2018 4:00 Results for this AM GEOMAGNETICIAN procedure are in the results section. PHOSPHORUS LEVEL Routine 03/01/2018 4:00 Results for this AM GEOMAGNETICIAN procedure are in the results section. MAGNESIUM LEVEL Routine 03/01/2018 4:00 Results for this AM GEOMAGNETICIAN procedure are in the results section. IONIZED CALCIUM Routine 03/01/2018 4:00 Results for this AM GEOMAGNETICIAN procedure are in the results section. BASIC METABOLIC PANEL Routine 03/01/2018 4:00 Results for this AM GEOMAGNETICIAN procedure are in the results section. CT ANGIOGRAM PE CHEST Routine 02/28/2018 10:59 Results for this PM GEOMAGNETICIAN procedure are in the results section. CT ABDOMEN PELVIS WO Routine 02/28/2018 10:59 Results for this CONTRAST PM GEOMAGNETICIAN procedure are in the results section. IONIZED CALCIUM Routine 02/28/2018 7:46 Results for this PM GEOMAGNETICIAN procedure are in the results section. ESTIMATED GFR Routine 02/28/2018 7:46 Results for this PM GEOMAGNETICIAN procedure are in the results section. PHOSPHORUS LEVEL Routine 02/28/2018 7:46 Results for this PM GEOMAGNETICIAN procedure are in the results section. COMPREHENSIVE METABOLIC Routine 02/28/2018 7:46 Results for this PANEL PM GEOMAGNETICIAN procedure are in the results section. MAGNESIUM LEVEL Routine 02/28/2018 7:46 Results for this PM GEOMAGNETICIAN procedure are in the results section. HC COMPLETE BLD COUNT Routine 02/28/2018 7:05 Results for this W/AUTO DIFF PM GEOMAGNETICIAN procedure are in the results section. PROTHROMBIN TIME WITH Routine 02/28/2018 7:05 Results for this INR PM GEOMAGNETICIAN procedure are in the results section. XR CHEST 1 VW PORTABLE STAT 02/28/2018 6:44 Results for this PM GEOMAGNETICIAN procedure are in the results section. TYPE AND SCREEN STAT 02/28/2018 6:20 Results for this PM GEOMAGNETICIAN procedure are in the results section. ECG 12-LEAD STAT 02/28/2018 5:57 Results for this PM GEOMAGNETICIAN procedure are in the results section. after 08/12/2017 Results Estimated GFR (03/02/2018 3:55 AM GEOMAGNETICIAN)Only the most recent of3 resultswithin the time period is included. Estimated GFR 58 (A) mL/min/1.73 [facility] Comment: m2 HOSPITAL CatergoryUnitsInterpretation G1 >=90 Normal or high G2 60-89Mildly decreased [id number] to moderately decreased B9v35-85Pxqykxfcmv to severely decreased G4 15-29Severely decreased G5 <15Kidney failure The eGFR was calculated using the Chronic Kidney Disease Epidemiology Collaboration (CKD-EPI) equation. Interpretation is based on recommendations of the National Kidney Foundation-Kidney Disease Outcomes Quality Initiative (NKF-KDOQI) published in 2014. Specimen Plasma specimen Performing Organization Address City/State/Zipcode Phone Number [facility] DEPARTMENT OF PATHOLOGY AND [address] [place] [address] GENOMIC MEDICINE [facility] [address] [place] [address] CBC with platelet and differential (03/02/2018 3:55 AM GEOMAGNETICIAN)Only the most recent of3 resultswithin the time period is included. WBC 7.03 4.50 - 11.00 [facility] k/uL HOSPITAL RBC 3.52 (L) 4.20 - 5.50 [facility] m/uL [facility] HGB 11.2 (L) 12.0 - 16.0 [facility] gdL [facility] HCT 33.5 (L) 37.0 - 47.0 % [facility] MCV 95.2 82.0 - 100.0 [facility] MCH 31.8 27.0 - 34.0 pg [facility] MCHC 33.4 31.0 - 37.0 [facility] RDW - SD 49.1 37.0 - 55.0 fL [facility] MPV 8.8 8.8 - 13.2 fL [facility] Platelet count 238 150 - 400 k/uL [facility] Nucleated RBC 0.00 /100 WBC [facility] Neutrophils 64.5 39.0 - 69.0 % [facility] Lymphocytes 28.7 25.0 - 45.0 % [facility] Monocytes 6.0 0.0 - 10.0 % [facility] Eosinophils 0.1 0.0 - 5.0 % [facility] Basophils 0.4 0.0 - 1.0 % [facility] Immature granulocytes 0.3Comment: 0.0 - 1.0 % [facility] "Immature HOSPITAL granulocytes" (promyelocytes , myelocytes, metamyelocytes ) Specimen Blood Performing Organization Address City/[facility] Phone Number [facility] DEPARTMENT OF PATHOLOGY AND [address] [place] [address] Thyroid stimulating hormone (03/02/2018 3:55 AM GEOMAGNETICIAN) Pathologist [facility] TSH 1.42 0.27 - 4.20 uIU/mL [facility] Specimen Plasma specimen Performing Organization Address [facility] Phone Number [facility] DEPARTMENT OF PATHOLOGY AND [address] [place] [address] Basic metabolic panel (03/02/2018 3:55 AM GEOMAGNETICIAN)Only the most recent of2 resultswithin the time period is included. Pathologist [facility] Sodium 135 135 - 148 mEq/L [facility] Potassium 3.9 3.5 - 5.0 mEq/L [facility] Chloride 94 (L) 98 - 112 mEq/L [facility] CO2 28 24 - 31 mEq/L [facility] Anion gap 13@ANIO 7 - 15 mEq/L [facility] BUN 12 8 - 23 mg/dL [facility] Creatinine 0.89 0.50 - 0.90 mg/dL [facility] Glucose 112 (H) 65 - 99 mg/dL [facility] Calcium 8.5 (L) 8.8 - 10.2 mg/dL [facility] Specimen Plasma specimen Performing Organization Address [facility] Phone Number [facility] DEPARTMENT OF PATHOLOGY AND [address] [place] [address] Us duplex venous lower extremity (03/01/2018 11:47 AM GEOMAGNETICIAN) Specimen Narrative Performed At [facility] Lower Extremity Venous Report [address] [place] [address] Pat.Name:ELVA FLOR Pat.ID:[id number] .Date: 03/01/2018Refer.MD:TOBIAS BLANCO MD Exam Time: 11:16:00 AM Study Type:LE Venous Height:59inDOBAge: 1930,87Y Sex: FEMALESonogrphr: Kevin Barry RDMS, RVT Pat. Stat.:Inpatient Room:[address] TapeVol: [facility] 4: [id number] Echo Event ID:[id number] Order ID:[id number] Reason for Study:Lower extremity swelling. History of [...] Radiology Results In - 03/01/2018 4:41 PM [facility] Vascular Ultrasound Laboratory Lower Extremity Venous Report [address] [place] [address] Pat.Name: ELVA FLOR Pat.ID: [id number] .Date: 03/01/2018 Refer.MD: TOBIAS BLANCO MD Exam Time: 11:16:00 AM Study Type:LE Venous Height: 59in Age: 2 1930,87Y Sex: FEMALE Sonogrphr: Kevin Barry RDMS, RVT Pat. Stat.:Inpatient Room: R825-DGP Tape Vol: [facility] - 4: [id number] Echo Event ID:[id number] Order ID: [id number] Reason for Study:Lower extremity swelling. History of [...] RPVI Performing Organization Address City/State/Zipcode Phone Number [facility] [address] [place] [address] Echocardiogram complete w contrast and 3D if needed (03/01/2018 7:35 AM GEOMAGNETICIAN) Specimen Narrative Performed At [facility] Echocardiography Report [address] [place] [address] Pat.Name:ELVA FLOR Pat.ID:[id number] .Date: 03/01/2018Refer.MD:TOBIAS BLANCO MD Exam Time: 7:07:00 AMStudy Type:Routine Echo Height:59.02in Weight:120lb BSA: 1.49 m2 DOBAge:1930,87Y Sex: FEMALEBP:140/65 HR:78 bpmSonogrphr: Michell Couch RDCS Pat. Stat.:Inpatient Room:816 Study Status:Final Echo Event ID:[id number] Order ID:[id number] Reason for Study:Shortness of breath Procedures:2D Echo, [...] RAPof 5 mmHg. MEASUREMENTS: 2D Parasternal [place] Ds3.2 cmLVPWd1 cm LVOT 1.8 cmAo An1.8 cm LVIDd3.9 cmIndex2.6 cm/m Ao Rtd 3 cm Index2 cm/m LVIDs2.1 cmLV Uxdk737 g(87-129) LV%fs 45.5 % LVM Index 86.6 g/m2 IVSd 1.1 cmRWT0.5 LA Sng Plane LA Area 15.4 cm2(8.8-23.4) LA Vol39.3 ml Index26.4 ml/m LA LngAx 5.2 cm RA Sng Plane RA Area 12.6 cm2(8.3-19.5) RA Vol27.5 ml Index18.4 ml/m RA LngAx 5.1 cm DOPPLER LVOT Stroke Vol LVOT 1.8 cmLVOT CO5.2 l/min LVOT TVI31.5 cmLVOT CI3.5 l/m/m2 LVOT Tm343 vvpiIO28 bpm LVOT SV 80.1 ml Signed 03/01/2018 02:33 PM Lucho Abdullahi M.D. Procedure Note Interface, Radiology Results In - 03/01/2018 2:34 PM [facility] Echocardiography Report [address] [place] [address] Pat.Name: ELVA FLOR Pat.ID: [id number] .Date: 03/01/2018 Refer.MD: TOBIAS BLANCO MD Exam Time: 7:07:00 AM Study Type:Routine Echo Height: 59.02in Weight: 120lb BSA: 1.49 m2 Age: 2 1930,87Y Sex: FEMALE BP: 140/65 HR: 78 bpm Sonogrphr: Michell Couch RDCS Pat. Stat.:Inpatient Room: [facility] Study Status:Final Echo Event ID:[id number] Order ID: [id number] Reason for Study:Shortness of breath Procedures:2D Echo, [...] of 5 mmHg. MEASUREMENTS: 2D Parasternal [place] Ds 3.2 cm LVPWd 1 cm [...] PM Lucho Abdullahi M.D. Performing Organization Address City/[facility]/Zipcode Phone Number [facility] [address] [place] [address] Phosphorus level (03/01/2018 4:00 AM GEOMAGNETICIAN)Only the most recent of2 resultswithin the time period is included. Phosphorus 4.0 2.4 - 4.5 mg/dL [facility] Specimen Plasma specimen Performing Organization Address [facility] Phone Number [facility] DEPARTMENT OF PATHOLOGY AND [address] [place] [phone] [place] [phone] Magnesium level (03/01/2018 4:00 AM GEOMAGNETICIAN)Only the most recent of2 resultswithin the time period is included. Magnesium 1.9 1.6 - 2.4 mg/dL [facility] Specimen Plasma specimen Performing Organization Address [facility] Phone Number [facility] DEPARTMENT OF PATHOLOGY AND [address] [place] [address] [address] Ionized calcium (03/01/2018 4:00 AM GEOMAGNETICIAN)Only the most recent of2 resultswithin the time period is included. pH 7.53 [facility] Ionized calcium 1.04 (L) 1.11 - 1.32 [facility] mmol/L [facility] Specimen Plasma specimen Performing Organization Address [facility] Phone Number [facility] DEPARTMENT OF PATHOLOGY AND [address] [place] [phone] [address] [address] Angiogram Pe Chest (02/28/2018 10:59 PM GEOMAGNETICIAN) Specimen Narrative Performed At EXAMINATION: [facility] CT ANGIOGRAM [...] identified. IMPRESSION: No evidence of pulmonary embolus. [facility]-[id number] Procedure Note Interface, Radiology Results Incoming - 02/28/2018 11:31 PM GEOMAGNETICIAN EXAMINATION: CT ANGIOGRAM PE CHEST CLINICAL HISTORY: [...] identified. IMPRESSION: No evidence of pulmonary embolus. [facility]-[id number] Performing Organization Address City/State/Zipcode Phone Number [facility] [address] [place] [address] CT Abdomen Pelvis Wo Contrast (02/28/2018 10:59 PM GEOMAGNETICIAN) Specimen Narrative Performed At Examination:CT ABDOMEN PELVIS WO CONTRAST [facility] Clinical History: Shortness of breath Comparison: None. [...] abnormality identified in the abdomen or pelvis. [facility]-[id number] Procedure Note Interface, Radiology Results Incoming - 02/28/2018 11:35 PM GEOMAGNETICIAN Examination: CT ABDOMEN PELVIS WO CONTRAST Clinical [...] abnormality identified in the abdomen or pelvis. [facility]-[id number] Performing Organization Address City/State/Zipcode Phone Number [facility] [address] [place] [address] Comprehensive metabolic panel (02/28/2018 7:46 PM GEOMAGNETICIAN) Sodium 137 135 - 148 [facility] mEq/L HOSPITAL Potassium 3.9 3.5 - 5.0 [facility] mEq/L HOSPITAL Chloride 99 98 - 112 mEq/L [facility] CO2 26 24 - 31 mEq/L [facility] Anion gap 12@ANIO 7 - 15 mEq/L [facility] BUN 15 8 - 23 mg/dL [facility] Creatinine 0.84 0.50 - 0.90 [facility] mg/dL HOSPITAL Glucose 85 65 - 99 mg/dL [facility] Calcium 8.9 8.8 - 10.2 [facility] mg/dL [facility] Protein 6.2 (L) 6.3 - 8.3 g/dL [facility] Comment: HOSPITAL 4.6-7.0 g/dL 1 week 4.4-7.6 g/dL 7 months-1year5.1-7.3 g/dL 1-2 years5.6-7.5 g/dL >3 years6.0-8.0 g/dL 18-150 6.3-8.3 g/dL Albumin 3.1 (L) 3.5 - 5.0 g/dL [facility] A/G ratio 1.0 0.7 - 3.8 [facility] Alkaline phosphatase 62 35 - 104 U/L [facility] AST 27 10 - 35 U/L [facility] ALT 26 5 - 50 U/L [facility] Total bilirubin 0.8 0.0 - 1.2 [facility] mg/dL HOSPITAL Specimen Plasma specimen Performing Organization Address City/State/Zipcode Phone Number [facility] DEPARTMENT OF PATHOLOGY AND [address] [place] [address] Prothrombin time with INR (02/28/2018 7:05 PM GEOMAGNETICIAN) Prothrombin time 14.0 11.5 - 14.5 [facility] INR 1.1 [place] Comment: [facility] International Normalized Ratio (INR) is a therapeutic HOSPITAL monitoring tool for patients who are stable on oral anticoagulant therapy. An INR of 2.0-3.0 is suggested for deep vein thrombosis/pulmonary embolism. Specimen Blood Performing Organization Address City/State/Zipcode Phone Number [facility] DEPARTMENT OF PATHOLOGY AND [address] [place] [phone] [place] [phone] XR Chest 1 Vw Portable (02/28/2018 6:44 PM GEOMAGNETICIAN) Specimen Narrative Performed At EXAMINATION:XR CHEST 1 VW PORTABLE [facility] CLINICAL HISTORY:Shortness of breath COMPARISON:04/12/2017 IMPRESSION: Chronic appearing interstitial lung markings. No consolidations, effusions, or pneumothorax. Calcified granuloma is seen of the right lung base. Cardiomediastinal silhouette is within normal limits. A device projects over the left heart. No acute osseous abnormalities. [facility]-[id number] Procedure Note Interface, Radiology Results Incoming - 02/28/2018 6:58 PM GEOMAGNETICIAN EXAMINATION: XR CHEST 1 VW PORTABLE CLINICAL HISTORY: Shortness of breath COMPARISON: 04/12/2017 IMPRESSION: Chronic appearing interstitial lung markings. No consolidations, effusions, or pneumothorax. Calcified granuloma is seen of the right lung base. Cardiomediastinal silhouette is within normal limits. A device projects over the left heart. No acute osseous abnormalities. [facility]-[id number] Performing Organization Address City/State/Zipcode Phone Number [facility] [address] [place] [address] Type and screen (02/28/2018 6:20 PM GEOMAGNETICIAN) ABO grouping A [facility] Rh type POS [facility] Antibody screen (gel) NEG [facility] Specimen Blood Performing Organization Address City/State/Zipcode Phone Number [facility] DEPARTMENT OF PATHOLOGY AND [address] [place] [address] GENOMIC MEDICINE [facility] [address] [place] [address] ECG 12 lead (02/28/2018 5:57 PM GEOMAGNETICIAN) Ventricular rate 60 [facility] Atrial rate 60 [facility] MS interval 128 [facility] QRSD interval 70 [facility] QT interval 404 [facility] QTC interval 404 [facility] P axis 1 66 [facility] QRS axis 1 43 [facility] T wave axis 61 [facility] EKG impression Normal sinus rhythm-Possible Left atrial enlargement- Borderline ECG-In automated comparison with ECG of 13-APR-2017 04:43,-Vent. rate has decreased BY52 BPM-Nonspecific T wave abnormality no longer [facility] MUSE evident in Inferior leads- Specimen Narrative Performed At Performing Organization Address City/[facility] Phone Number [facility] MUSE [address] [place] [address] after 08/12/2017 (Home) [address] [place] [address] Advance Directives Patient has advance care planning documents on file. For more information, please contact:[id number] [place] [address]
--- OUTSIDE RECORDS SUMMARY | 2018-08-13 20:04 | XMS REPORT | Clinical Summary ---
:1930 Author Organization [facility] Address [address] [place] [address] Care Team Providers Name Role Phone Hasmukh [...] 2 (two) 8 capsule times daily . atorvastatin Take 40 mg by 0 Discontinued [...] Take by mouth. 0 Discontinued ORAL) [address] rectally 30 g 0 08/05/2017 [...] Description 09/16/2017 Anesthesia Event Gastroenterology Chanelle Reyes, ABRAN 09/16/2017 Surgery Gastroenterology Misha Calloway SIGMOIDSAM URBAN MD MY 09/16/2017 - Hospital Encounter Cardiology Rhea Bedoya Bilateral pulmonary embolism (HCC); 09/17/2017 MD Yamila C. difficile colitis; Martha Cruz Chronic obstructive pulmonary disease, unspecified COPD type (HCC); MD Kulwant Gastroesophageal reflux disease without esophagitis; Hypothyroidism, unspecified type; Deep vein thrombosis (DVT) of left lower extremity, unspecified chronicity, unspecified vein (HCC); Rectal bleeding; Rectal polyp; Normochromic anemia after 08/12/2017 Social History Tobacco Use Types Packs/Day Years [...] RHYTHM STRIP - SCAN 02/09/2018 2:43 PM [employer] RHYTHM STRIP - SCAN 09/20/2017 12:50 PM [...] type Special Needs FLEX SIGMOIDOSCOPY WITH ANES after 08/12/2017 Results RHYTHM STRIP - SCAN (02/09/2018 2:43 PM [employer])Only the most recent of2 resultswithin the time period is included. Narrative Performed At REPORT OF PROCEDURE - ENDOSCOPY URL (09/19/2017 1:13 PM CDT) Narrative Performed At TRANSFUSION SERVICE REPORT - SCAN (09/17/2017 6:00 PM CDT) Narrative Performed At PT/aPTT (09/17/2017 5:35 AM CDT) Protime 20.8 (H) 11.7 - 14.7 seconds [facility] INR 1.8 <=5.9 [facility] PTT 36.1 (H) 22.5 - 36.0 seconds [facility] Specimen Blood Narrative Performed At [facility] RECOMMENDED COUMADIN/WARFARIN INR THERAPY RANGES STANDARD DOSE: 2.0 - 3.0 Includes: PROPHYLAXIS for venous thrombosis, systemic embolization; TREATMENT for venous thrombosis and/or pulmonary embolus. HIGH RISK: Target INR is 2.5-3.5 for patients with mechanical heart valves. Performing Organization Address City/State/Zipcode Phone Number [facility] [address] [place] [address] CENTER CBC with platelet count + automated diff (09/17/2017 5:35 AM CDT) WBC 5.5 3.5 - 10.5 K/L [facility] RBC 3.52 (L) 3.93 - 5.22 M/L [facility] Hemoglobin 10.4 (L) 11.2 - 15.7 GM/DL [facility] Hematocrit 33.1 (L) 34.1 - 44.9 % [facility] MCV 94.0 79.4 - 94.8 fL [facility] MCH 29.5 25.6 - 32.2 pg [facility] MCHC 31.4 (L) 32.2 - 35.5 GM/DL [facility] RDW 19.8 (H) 11.7 - 14.4 % [facility] Platelets 240 150 - 450 K/CU MM [facility] MPV 8.5 (L) 9.4 - 12.3 fL [facility] nRBC 0 0 - 0 /100 WBC [facility] % Neutros 43 % [facility] % Lymphs 49 % [facility] % Monos 7 % [facility] % Eos 1 % [facility] % Baso 0 % [facility] # Neutros 2.34 1.56 - 6.13 K/L [facility] # Lymphs 2.68 1.18 - 3.74 K/L [facility] # Monos 0.38 (H) 0.24 - 0.36 K/L [facility] # Eos 0.05 0.04 - 0.36 K/L [facility] # Baso 0.02 0.01 - 0.08 K/L [facility] Immature Granulocytes-Relative 0 0 - 1 % [facility] Specimen Blood Performing Organization Address City/State/Zipcode Phone Number [address] [address] CENTER Magnesium (09/17/2017 5:35 AM CDT)Only the most recent of2 resultswithin the time period is included. Magnesium 1.9 1.6 - 2.6 mg/dL [facility] Specimen Blood Performing Organization Address City/State/Zipcode Phone Number [address] [address] [phone] CENTER Basic metabolic panel (09/17/2017 5:35 AM CDT)Only the most recent of2 resultswithin the time period is included. Sodium 138 136 - 145 meq/L [facility] Potassium 4.2 3.5 - 5.1 meq/L [facility] Chloride 106 98 - 107 meq/L [facility] CO2 25 22 - 29 meq/L [facility] BUN 6 (L) 7 - 21 mg/dL [facility] Creatinine 0.66 0.57 - 1.25 mg/dL [facility] Glucose 76 70 - 105 mg/dL [facility] Calcium 8.4 8.4 - 10.2 mg/dL [facility] EGFR 85Comment: ESTIMATED GFR IS mL/min/1.73 sq m [facility] NOT ACCURATE [facility] CLEARANCE IN PREDICTING GLOMERULAR FILTRATION RATE. ESTIMATED GFR IS NOT APPLICABLE FOR DIALYSIS PATIENTS. Specimen Blood Performing Organization Address City/[facility]/Zipcode Phone Number [address] [address] CENTER Type and screen, automated (09/16/2017 6:30 PM CDT) ABO/RH AUTOMATED (CEDRICAKER) A POSITIVE [facility] Ab Scrn NEGATIVE [facility] Specimen Blood Performing Organization Address City/State/Zipcode Phone Number [address] [address] [phone] CBC (Hemogram only) (09/16/2017 6:30 PM CDT) WBC 6.5 3.5 - 10.5 K/L [facility] RBC 3.61 (L) 3.93 - 5.22 M/L [facility] Hemoglobin 10.9 (L) 11.2 - 15.7 GM/DL [facility] Hematocrit 33.5 (L) 34.1 - 44.9 % [facility] MCV 92.8 79.4 - 94.8 fL [facility] MCH 30.2 25.6 - 32.2 pg [facility] MCHC 32.5 32.2 - 35.5 GM/DL [facility] RDW 19.8 (H) 11.7 - 14.4 % [facility] Platelets 239 150 - 450 K/CU MM [facility] MPV 8.7 (L) 9.4 - 12.3 fL [facility] nRBC 0 0 - 0 /100 WBC [facility] Specimen Blood Performing Organization Address City/[facility] Cent[facility]ode Phone Number [facility] [address] [place] [address] [place] Tissue Exam (09/16/2017 3:38 PM CDT) Case Report Surgical Pathology Report Case: [id number] [facility] Authorizing Provider:Misha Calloway MDCollected: 09/16/2017 1538 [facility] Ordering Location: [address] Received: 09/19/2017 0820 Service Pathologist: Larry Cohn MD Specimen:Polyp, Colon - Rectosigmoid, POLYP TAKEN BY HOT SNARE DIAGNOSIS RECTO-SIGMOID, POLYPECTOMY [facility] - TUBULAR [facility] - CAUTERIZED EDGE, NEGATIVE FOR ADENOMATOUS CHANGE Signing Pathologist Direct Phone Line: [phone] CPT Code(s) 87731 [facility] CLINICAL HISTORY GI bleed [facility] SPECIMEN SOURCE Rectosigmoid colon polyp [facility] GROSS DESCRIPTION The specimen is received in [facility] a formalin-filled aspirus [facility] and labeled with the patient's information and labeled "rectosigmoid colon polyp" and consists of a durham-red polyp measuring 0.8 x 0.8 x 0.3 cm. Resection margin is inked blue. The specimen is trisected, submitted entirely A1. CG/pl MICROSCOPIC DESCRIPTION There is no high grade dysplasia or carcinoma. [facility] Specimen Tissue - Polyp, Colon - Rectosigmoid Performing Organization Address City/[facility]/Zipcode Phone Number [facility] [address] [place] [address] [phone] CENTER after 08/12/2017 Insurance Payer Benefit Plan / Group Subscriber ID Type Phone Address [facility] [place] MEDICARE HMO xxxxxxxxx MGD CARE [facility] [place] PPO OPTIONS xxxxxxxxx PPO Advance Directives For more information, please contact:[place] [id number] [place], [place] [phone] Code Status Date Activated Date Inactivated Comments [...]
--- OUTSIDE RECORDS SUMMARY | 2018-08-13 20:05 | XMS REPORT ---
:1930 [facility] Address [address] [place] [address] Dr. Marsh [address] [place] [id number] Care Team Providers Name Role Phone KIM MCKEON ZARI Unavailable Unavailable RICARDO WILSON Unavailable Unavailable Problems This patient has no known problems. Allergies, Adverse Reactions, Alerts This patient has no known allergies or adverse reactions. Medications This patient has no known medications. Results Test Description Test Time Test Comments Text Results Atomic Results Result Comments TISSUE EXAM 2017-09-20 16:22:00 Surgical Pathology Report Case: [id number] Authorizing Provider: Misha Calloway MD Collected: 09/16/2017 1538 Ordering Location: [address] Received: 09/19/2017 0820 Service Pathologist: Larry Cohn MD Specimen: Polyp, Colon - Rectosigmoid, POLYP TAKEN BY HOT SNARE RECTO-SIGMOID, POLYPECTOMY- TUBULAR ADENOMA- CAUTERIZED EDGE, NEGATIVE FOR ADENOMATOUS CHANGE Signing Pathologist Direct Phone Line: [phone] signed by Larry Cohn MD on 09/20/2017 at 4:22 [id number] bleedRectosigmoid colon polypThe specimen is received in [...] Value Reference Range Comments MAGNESIUM (BEAKER) (test wqtj=854) 1.9 mg/dL 1.6-2.6 BASIC METABOLIC [id number] 07:32:00 Test Item Value Reference Range Comments SODIUM (BEAKER) (test 138 meq/L 136-145 nvhw=964) POTASSIUM (BEAKER) (test 4.2 meq/L 3.5-5.1 lrwu=288) CHLORIDE (BEAKER) (test 106 meq/L 98-107 rbzb=818) CO2 (BEAKER) (test 25 meq/L 22-29 dwfb=205) BLOOD UREA NITROGEN 6 mg/dL 7-21 (BEAKER) (test ojft=586) CREATININE (BEAKER) (test 0.66 mg/dL 0.57-1.25 nvpp=766) GLUCOSE RANDOM (BEAKER) 76 mg/dL 70-105 (test apnr=631) CALCIUM (BEAKER) (test 8.4 mg/dL 8.4-10.2 khci=222) EGFR (BEAKER) (test 85 mL/min/1.73 sq m ESTIMATED GFR IS NOT ifgk=9690) ACCURATE CREATININE CLEARANCE IN PREDICTING GLOMERULAR FILTRATION RATE. ESTIMATED GFR IS NOT APPLICABLE FOR DIALYSIS PATIENTS. [id number] 06:42:00 Test Item Value Reference Range Comments PROTIME (BEAKER) (test svju=192) 20.8 seconds 11.7-14.7 INR (BEAKER) (test buab=695) 1.8 <=5.9 PARTIAL THROMBOPLASTIN TIME (BEAKER) (test 36.1 seconds 22.5-36.0 ddzm=277) RECOMMENDED COUMADIN/WARFARIN INR THERAPY RANGESSTANDARD DOSE: 2.0 - 3.0 Includes: PROPHYLAXIS forvenous thrombosis, systemic embolization; TREATMENT for venous thrombosis and/or pulmonary embolus.HIGH RISK: Target INR is 2.5-3.5 for patients with mechanical heart valves.CBC W/PLT COUNT & AUTO [id number] 06:41:00 Test Item Value Reference Range Comments WHITE BLOOD CELL COUNT (BEAKER) (test fdol=747) 5.5 K/ L 3.5-10.5 RED BLOOD CELL COUNT (BEAKER) (test siut=460) 3.52 M/ L 3.93-5.22 HEMOGLOBIN (BEAKER) (test sruy=013) 10.4 GM/DL 11.2-15.7 HEMATOCRIT (BEAKER) (test ihvg=144) 33.1 % 34.1-44.9 MEAN CORPUSCULAR VOLUME (BEAKER) (test nmob=753) 94.0 fL 79.4-94.8 MEAN CORPUSCULAR HEMOGLOBIN (BEAKER) (test 29.5 pg 25.6-32.2 jbzw=607) MEAN CORPUSCULAR HEMOGLOBIN CONC (BEAKER) (test 31.4 GM/DL 32.2-35.5 vfsh=262) RED CELL DISTRIBUTION WIDTH (BEAKER) (test 19.8 % 11.7-14.4 xvsa=099) PLATELET COUNT (BEAKER) (test mbxz=927) 240 K/CU MM 150-450 MEAN PLATELET VOLUME (BEAKER) (test hkxo=926) 8.5 fL 9.4-12.3 NUCLEATED RED BLOOD CELLS (BEAKER) (test 0 /100 WBC 0-0 itsx=955) NEUTROPHILS RELATIVE PERCENT (BEAKER) (test 43 % wztm=524) LYMPHOCYTES RELATIVE PERCENT (BEAKER) (test 49 % ogsw=317) MONOCYTES RELATIVE PERCENT (BEAKER) (test 7 % imhe=870) EOSINOPHILS RELATIVE PERCENT (BEAKER) (test 1 % artz=596) BASOPHILS RELATIVE PERCENT (BEAKER) (test 0 % fnty=379) NEUTROPHILS ABSOLUTE COUNT (BEAKER) (test 2.34 K/ L 1.56-6.13 rdme=137) LYMPHOCYTES ABSOLUTE COUNT (BEAKER) (test 2.68 K/ L 1.18-3.74 nslp=110) MONOCYTES ABSOLUTE COUNT (BEAKER) (test 0.38 K/ L 0.24-0.36 gfxw=395) EOSINOPHILS ABSOLUTE COUNT (BEAKER) (test 0.05 K/ L 0.04-0.36 nfho=574) BASOPHILS ABSOLUTE COUNT (BEAKER) (test 0.02 K/ L 0.01-0.08 kqqr=978) IMMATURE GRANULOCYTES-RELATIVE PERCENT (BEAKER) 0 % 0-1 (test oglk=0651) [id number] 19:07:00 Test Item Value Reference Range Comments MAGNESIUM (BEAKER) (test gcja=728) 1.9 mg/dL 1.6-2.6 BASIC METABOLIC [id number] 19:07:00 Test Item Value Reference Range Comments SODIUM (BEAKER) (test 137 meq/L 136-145 tvsa=002) POTASSIUM (BEAKER) (test 3.8 meq/L 3.5-5.1 gazx=157) CHLORIDE (BEAKER) (test 106 meq/L 98-107 rpgy=975) CO2 (BEAKER) (test 23 meq/L 22-29 rdyu=938) BLOOD UREA NITROGEN 6 mg/dL 7-21 (BEAKER) (test tpfi=109) CREATININE (BEAKER) (test 0.64 mg/dL 0.57-1.25 qszu=161) GLUCOSE RANDOM (BEAKER) 82 mg/dL 70-105 (test azes=439) CALCIUM (BEAKER) (test 8.5 mg/dL 8.4-10.2 lolk=005) EGFR (BEAKER) (test 88 mL/min/1.73 sq m ESTIMATED GFR IS NOT mkla=3439) ACCURATE CREATININE CLEARANCE IN PREDICTING GLOMERULAR FILTRATION RATE. ESTIMATED GFR IS NOT APPLICABLE FOR DIALYSIS PATIENTS. CBC (HEMOGRAM ONLY)2017-09-16 18:38:00 Test Item Value Reference Range Comments WHITE BLOOD CELL COUNT (BEAKER) (test wole=776) 6.5 K/ L 3.5-10.5 RED BLOOD CELL COUNT (BEAKER) (test exbu=028) 3.61 M/ L 3.93-5.22 HEMOGLOBIN (BEAKER) (test wnkt=431) 10.9 GM/DL 11.2-15.7 HEMATOCRIT (BEAKER) (test pzwt=740) 33.5 % 34.1-44.9 MEAN CORPUSCULAR VOLUME (BEAKER) (test vcsy=481) 92.8 fL 79.4-94.8 MEAN CORPUSCULAR HEMOGLOBIN (BEAKER) (test 30.2 pg 25.6-32.2 scji=198) MEAN CORPUSCULAR HEMOGLOBIN CONC (BEAKER) (test 32.5 GM/DL 32.2-35.5 atcz=344) RED CELL DISTRIBUTION WIDTH (BEAKER) (test 19.8 % 11.7-14.4 mmxb=967) PLATELET COUNT (BEAKER) (test enze=297) 239 K/CU MM 150-450 MEAN PLATELET VOLUME (BEAKER) (test bjiz=040) 8.7 fL 9.4-12.3 NUCLEATED RED BLOOD CELLS (BEAKER) (test 0 /100 WBC 0-0 xdgx=623) [id number] 06:56:00 Test Item Value Reference Range Comments PHOSPHORUS (BEAKER) (test yvoa=651) 2.7 mg/dL 2.3-4.7 [id number] 06:56:00 Test Item Value Reference Range Comments MAGNESIUM (BEAKER) (test fpcq=019) 1.9 mg/dL 1.6-2.6 BASIC METABOLIC [id number] 06:56:00 Test Item Value Reference Range Comments SODIUM (BEAKER) (test 139 meq/L 136-145 aomc=775) POTASSIUM (BEAKER) (test 4.1 meq/L 3.5-5.1 ljpw=543) CHLORIDE (BEAKER) (test 107 meq/L 98-107 tvsm=634) CO2 (BEAKER) (test 26 meq/L 22-29 jcem=992) BLOOD UREA NITROGEN 11 mg/dL 7-21 (BEAKER) (test irju=455) CREATININE (BEAKER) (test 0.73 mg/dL 0.57-1.25 kjnu=188) GLUCOSE RANDOM (BEAKER) 107 mg/dL 70-105 (test jizm=955) CALCIUM (BEAKER) (test 8.5 mg/dL 8.4-10.2 ydnx=255) EGFR (BEAKER) (test 76 mL/min/1.73 sq m ESTIMATED GFR IS NOT qamz=8294) ACCURATE CREATININE CLEARANCE IN PREDICTING GLOMERULAR FILTRATION RATE. ESTIMATED GFR IS NOT APPLICABLE FOR DIALYSIS PATIENTS. HEPATIC FUNCTION [id number] 06:56:00 Test Item Value Reference Range Comments TOTAL PROTEIN (BEAKER) (test jekl=260) 5.2 gm/dL 6.0-8.3 ALBUMIN (BEAKER) (test ooey=8366) 2.9 g/dL 3.5-5.0 BILIRUBIN TOTAL (BEAKER) (test bdmu=107) 0.8 mg/dL 0.2-1.2 BILIRUBIN DIRECT (BEAKER) (test orqb=052) 0.4 mg/dL 0.1-0.5 ALKALINE PHOSPHATASE (BEAKER) (test cppf=171) 43 U/L 40-150 AST (SGOT) (BEAKER) (test yrow=409) 13 U/L 5-34 ALT (SGPT) (BEAKER) (test oxbh=205) 10 U/L 6-55 CALCIUM, [id number] 06:36:00 Test Item Value Reference Range Comments CALCIUM IONIZED (BEAKER) (test bsrs=424) 1.05 mmol/L 1.12-1.27 PH, BLOOD (BEAKER) (test gfwi=8995) 7.46 PROTHROMBIN [id number] 06:35:00 Test Item Value Reference Range Comments PROTIME (BEAKER) (test ajse=320) 14.2 seconds 11.7-14.7 INR (BEAKER) (test haum=185) 1.1 <=5.9 RECOMMENDED COUMADIN/WARFARIN INR THERAPY RANGESSTANDARD DOSE: 2.0 - 3.0 Includes: PROPHYLAXIS forvenous thrombosis, systemic embolization; TREATMENT for venous thrombosis and/or pulmonary embolus.HIGH RISK: Target INR is 2.5-3.5 for patients with mechanical heart valves.CBC W/PLT COUNT & AUTO [id number] 06:25:00 Test Item Value Reference Range Comments WHITE BLOOD CELL COUNT (BEAKER) (test cokk=685) 9.4 K/ L 3.5-10.5 RED BLOOD CELL COUNT (BEAKER) (test beot=051) 3.48 M/ L 3.93-5.22 HEMOGLOBIN (BEAKER) (test avvz=143) 10.0 GM/DL 11.2-15.7 HEMATOCRIT (BEAKER) (test zdde=083) 31.1 % 34.1-44.9 MEAN CORPUSCULAR VOLUME (BEAKER) (test aqkh=132) 89.4 fL 79.4-94.8 MEAN CORPUSCULAR HEMOGLOBIN (BEAKER) (test 28.7 pg 25.6-32.2 kqoc=045) MEAN CORPUSCULAR HEMOGLOBIN CONC (BEAKER) (test 32.2 GM/DL 32.2-35.5 poda=346) RED CELL DISTRIBUTION WIDTH (BEAKER) (test 18.3 % 11.7-14.4 rqbs=411) PLATELET COUNT (BEAKER) (test mvxz=014) 234 K/CU MM 150-450 MEAN PLATELET VOLUME (BEAKER) (test aipi=847) 8.9 fL 9.4-12.3 NUCLEATED RED BLOOD CELLS (BEAKER) (test 0 /100 WBC 0-0 ksmi=599) NEUTROPHILS RELATIVE PERCENT (BEAKER) (test 70 % ukda=600) LYMPHOCYTES RELATIVE PERCENT (BEAKER) (test 24 % gyrf=739) MONOCYTES RELATIVE PERCENT (BEAKER) (test 5 % wuur=589) EOSINOPHILS RELATIVE PERCENT (BEAKER) (test 0 % bmqq=620) BASOPHILS RELATIVE PERCENT (BEAKER) (test 0 % khop=144) NEUTROPHILS ABSOLUTE COUNT (BEAKER) (test 6.54 K/ L 1.56-6.13 zwqr=350) LYMPHOCYTES ABSOLUTE COUNT (BEAKER) (test 2.30 K/ L 1.18-3.74 gbwp=423) MONOCYTES ABSOLUTE COUNT (BEAKER) (test 0.50 K/ L 0.24-0.36 jhxy=902) EOSINOPHILS ABSOLUTE COUNT (BEAKER) (test 0.03 K/ L 0.04-0.36 icvz=972) BASOPHILS ABSOLUTE COUNT (BEAKER) (test 0.02 K/ L 0.01-0.08 treq=223) IMMATURE GRANULOCYTES-RELATIVE PERCENT (BEAKER) 0 % 0-1 (test opgp=1326) TISSUE [id number] 14:52:00Surgical Pathology Report Case: [id number] Authorizing Provider: Ricardo Wilson MD Collected: 08/02/2017 1715 Ordering Location: [facility] Endoscopy Received: 08/03/2017 0837 Services Pathologist: Larry Cohn MD Specimen: Rectal, MASS- TAKEN BY ESD, ON WAX, EVALUATE MARGINS RECTAL, 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)- NEGATIVE FOR HIGH GRADE DYSPLASIA OR CARCINOMA- PERIPHERAL MARGINS, NEGATIVE FOR ADENOMATOUS CHANGE Signing Pathologist Direct Phone Line: [phone] signed by Larry Cohn MD on 08/04/2017 at 2:52 [id number] polyp Rectal mass Received in formalin labeled [...] the diagnostic line.CBC W/PLT COUNT & AUTO [id number] 06:19:00 Test Item Value Reference Range Comments WHITE BLOOD CELL COUNT (BEAKER) (test trsx=215) 15.6 K/ L 3.5-10.5 RED BLOOD CELL COUNT (BEAKER) (test xipl=420) 3.50 M/ L 3.93-5.22 HEMOGLOBIN (BEAKER) (test fyni=130) 9.9 GM/DL 11.2-15.7 HEMATOCRIT (BEAKER) (test eowx=119) 31.4 % 34.1-44.9 MEAN CORPUSCULAR VOLUME (BEAKER) (test ldus=643) 89.7 fL 79.4-94.8 MEAN CORPUSCULAR HEMOGLOBIN (BEAKER) (test 28.3 pg 25.6-32.2 hpgs=236) MEAN CORPUSCULAR HEMOGLOBIN CONC (BEAKER) (test 31.5 GM/DL 32.2-35.5 xtpi=826) RED CELL DISTRIBUTION WIDTH (BEAKER) (test 18.0 % 11.7-14.4 ozog=311) PLATELET COUNT (BEAKER) (test aium=604) 223 K/CU MM 150-450 MEAN PLATELET VOLUME (BEAKER) (test jbff=700) 8.7 fL 9.4-12.3 NUCLEATED RED BLOOD CELLS (BEAKER) (test 0 /100 WBC 0-0 zmey=213) NEUTROPHILS RELATIVE PERCENT (BEAKER) (test 81 % fujb=112) LYMPHOCYTES RELATIVE PERCENT (BEAKER) (test 15 % mysp=021) MONOCYTES RELATIVE PERCENT (BEAKER) (test 4 % gxlf=021) EOSINOPHILS RELATIVE PERCENT (BEAKER) (test 0 % otth=376) BASOPHILS RELATIVE PERCENT (BEAKER) (test 0 % hpes=145) NEUTROPHILS ABSOLUTE COUNT (BEAKER) (test 12.56 K/ L 1.56-6.13 qant=321) LYMPHOCYTES ABSOLUTE COUNT (BEAKER) (test 2.36 K/ L 1.18-3.74 ltnc=777) MONOCYTES ABSOLUTE COUNT (BEAKER) (test 0.56 K/ L 0.24-0.36 ivuo=985) EOSINOPHILS ABSOLUTE COUNT (BEAKER) (test 0.03 K/ L 0.04-0.36 pejt=867) BASOPHILS ABSOLUTE COUNT (BEAKER) (test 0.02 K/ L 0.01-0.08 zfqc=208) IMMATURE GRANULOCYTES-RELATIVE PERCENT (BEAKER) 0 % 0-1 (test qrfx=0554) HEPATIC FUNCTION [id number] 06:15:00 Test Item Value Reference Range Comments TOTAL PROTEIN (BEAKER) (test ueto=176) 4.9 gm/dL 6.0-8.3 ALBUMIN (BEAKER) (test jdap=0724) 2.8 g/dL 3.5-5.0 BILIRUBIN TOTAL (BEAKER) (test noaa=556) 1.1 mg/dL 0.2-1.2 BILIRUBIN DIRECT (BEAKER) (test znyp=824) 0.5 mg/dL 0.1-0.5 ALKALINE PHOSPHATASE (BEAKER) (test dvpv=190) 42 U/L 40-150 AST (SGOT) (BEAKER) (test vxay=849) 15 U/L 5-34 ALT (SGPT) (BEAKER) (test ogyy=873) 12 U/L 6-55 BASIC METABOLIC [id number] 06:15:00 Test Item Value Reference Range Comments SODIUM (BEAKER) (test 139 meq/L 136-145 hbwh=455) POTASSIUM (BEAKER) (test 4.6 meq/L 3.5-5.1 wtpb=429) CHLORIDE (BEAKER) (test 108 meq/L 98-107 pjna=909) CO2 (BEAKER) (test 25 meq/L 22-29 wmzl=598) BLOOD UREA NITROGEN 13 mg/dL 7-21 (BEAKER) (test ffmj=949) CREATININE (BEAKER) (test 0.73 mg/dL 0.57-1.25 mgcr=457) GLUCOSE RANDOM (BEAKER) 115 mg/dL 70-105 (test eyyk=375) CALCIUM (BEAKER) (test 8.5 mg/dL 8.4-10.2 mwsp=936) EGFR (BEAKER) (test 76 mL/min/1.73 sq m ESTIMATED GFR IS NOT vert=5363) ACCURATE CREATININE CLEARANCE IN PREDICTING GLOMERULAR FILTRATION RATE. ESTIMATED GFR IS NOT APPLICABLE FOR DIALYSIS PATIENTS. PROTHROMBIN [id number] 05:59:00 Test Item Value Reference Range Comments PROTIME (BEAKER) (test azcb=574) 14.6 seconds 11.7-14.7 INR (BEAKER) (test dctf=699) 1.1 <=5.9 RECOMMENDED COUMADIN/WARFARIN INR THERAPY RANGESSTANDARD DOSE: 2.0 - 3.0 Includes: PROPHYLAXIS forvenous thrombosis, systemic embolization; TREATMENT for venous thrombosis and/or pulmonary embolus.HIGH RISK: Target INR is 2.5-3.5 for patients with mechanical heart valves.URINALYSIS W/ [id number] 14 :53:00 Test Item Value Reference Range Comments COLOR (BEAKER) (test ccgc=853) Yellow CLARITY (BEAKER) (test uoxy=669) Clear SPECIFIC GRAVITY UA (BEAKER) (test qzbe=174) 1.010 1.001-1.035 PH UA (BEAKER) (test obcm=960) 5.5 5.0-8.0 PROTEIN UA (BEAKER) (test yosp=638) Negative Negative GLUCOSE UA (BEAKER) (test yujn=862) Negative Negative KETONES UA (BEAKER) (test rfxc=737) Trace Negative BILIRUBIN UA (BEAKER) (test vzrb=263) Negative Negative BLOOD UA (BEAKER) (test lrrq=131) Negative Negative NITRITE UA (BEAKER) (test zqxg=934) Negative Negative LEUKOCYTE ESTERASE UA (BEAKER) (test bgwp=600) Negative Negative UROBILINOGEN UA (BEAKER) (test mxrj=908) 0.2 mg/dL 0.2-1.0 RBC UA (BEAKER) (test zojw=766) 1 /HPF WBC UA (BEAKER) (test isgq=779) 3 /HPF MUCUS (BEAKER) (test eosj=6686) Few SQUAMOUS EPITHELIAL (BEAKER) (test xxwm=385) < /HPF HYALINE CASTS (BEAKER) (test dslb=087) 2 /LPF SOURCE(BEAKER) (test jens=6797) HEPATIC FUNCTION [id number] 06:31:00 Test Item Value Reference Range Comments TOTAL PROTEIN (BEAKER) (test afuk=145) 5.2 gm/dL 6.0-8.3 ALBUMIN (BEAKER) (test hkdm=0789) 3.1 g/dL 3.5-5.0 BILIRUBIN TOTAL (BEAKER) (test gljm=458) 1.1 mg/dL 0.2-1.2 BILIRUBIN DIRECT (BEAKER) (test uacp=990) 0.5 mg/dL 0.1-0.5 ALKALINE PHOSPHATASE (BEAKER) (test wmfn=728) 47 U/L 40-150 AST (SGOT) (BEAKER) (test nuxu=986) 20 U/L 5-34 ALT (SGPT) (BEAKER) (test eumc=196) 15 U/L 6-55 BASIC METABOLIC [id number] 06:31:00 Test Item Value Reference Range Comments SODIUM (BEAKER) (test 139 meq/L 136-145 gujp=058) POTASSIUM (BEAKER) (test 2.7 meq/L 3.5-5.1 rwzv=264) CHLORIDE (BEAKER) (test 106 meq/L 98-107 pzrr=940) CO2 (BEAKER) (test 24 meq/L 22-29 suyv=021) BLOOD UREA NITROGEN 7 mg/dL 7-21 (BEAKER) (test wgwd=652) CREATININE (BEAKER) (test 0.61 mg/dL 0.57-1.25 xjoa=290) GLUCOSE RANDOM (BEAKER) 88 mg/dL 70-105 (test ksis=905) CALCIUM (BEAKER) (test 8.4 mg/dL 8.4-10.2 dtua=222) EGFR (BEAKER) (test 93 mL/min/1.73 sq m ESTIMATED GFR IS NOT ksvm=5696) ACCURATE CREATININE CLEARANCE IN PREDICTING GLOMERULAR FILTRATION RATE. ESTIMATED GFR IS NOT APPLICABLE FOR DIALYSIS PATIENTS. BASIC METABOLIC [id number] 06:30:00 Test Item Value Reference Range Comments SODIUM (BEAKER) (test 136 meq/L 136-145 zzid=217) POTASSIUM (BEAKER) (test 3.0 meq/L 3.5-5.1 Specimen slightly tlfh=506) hemolyzed CHLORIDE (BEAKER) (test 106 meq/L 98-107 wnof=077) CO2 (BEAKER) (test 20 meq/L 22-29 xdat=939) BLOOD UREA NITROGEN 7 mg/dL 7-21 (BEAKER) (test ehqd=941) CREATININE (BEAKER) (test 0.61 mg/dL 0.57-1.25 Specimen slightly qhwz=139) hemolyzed GLUCOSE RANDOM (BEAKER) 81 mg/dL 70-105 (test doja=877) CALCIUM (BEAKER) (test 8.2 mg/dL 8.4-10.2 mpog=946) EGFR (BEAKER) (test 93 mL/min/1.73 sq m ESTIMATED GFR IS NOT qkhs=6771) ACCURATE CREATININE CLEARANCE IN PREDICTING GLOMERULAR FILTRATION RATE. ESTIMATED GFR IS NOT APPLICABLE FOR DIALYSIS PATIENTS. CBC W/PLT COUNT & AUTO [id number] 06:25:00 Test Item Value Reference Range Comments WHITE BLOOD CELL COUNT (BEAKER) (test ltdj=407) 14.6 K/ L 3.5-10.5 RED BLOOD CELL COUNT (BEAKER) (test nvae=550) 3.75 M/ L 3.93-5.22 HEMOGLOBIN (BEAKER) (test uitt=066) 10.5 GM/DL 11.2-15.7 HEMATOCRIT (BEAKER) (test hwpl=550) 33.1 % 34.1-44.9 MEAN CORPUSCULAR VOLUME (BEAKER) (test haot=209) 88.3 fL 79.4-94.8 MEAN CORPUSCULAR HEMOGLOBIN (BEAKER) (test 28.0 pg 25.6-32.2 hjgd=166) MEAN CORPUSCULAR HEMOGLOBIN CONC (BEAKER) (test 31.7 GM/DL 32.2-35.5 yxnp=466) RED CELL DISTRIBUTION WIDTH (BEAKER) (test 17.5 % 11.7-14.4 xylf=815) PLATELET COUNT (BEAKER) (test bhek=848) 246 K/CU MM 150-450 MEAN PLATELET VOLUME (BEAKER) (test sdpn=543) 8.9 fL 9.4-12.3 NUCLEATED RED BLOOD CELLS (BEAKER) (test 0 /100 WBC 0-0 hkej=849) NEUTROPHILS RELATIVE PERCENT (BEAKER) (test 88 % xeii=144) LYMPHOCYTES RELATIVE PERCENT (BEAKER) (test 5 % arwf=948) MONOCYTES RELATIVE PERCENT (BEAKER) (test 6 % itjq=046) EOSINOPHILS RELATIVE PERCENT (BEAKER) (test 0 % skav=600) BASOPHILS RELATIVE PERCENT (BEAKER) (test 0 % gsss=384) NEUTROPHILS ABSOLUTE COUNT (BEAKER) (test 12.85 K/ L 1.56-6.13 mkxi=284) LYMPHOCYTES ABSOLUTE COUNT (BEAKER) (test 0.71 K/ L 1.18-3.74 hlnb=305) MONOCYTES ABSOLUTE COUNT (BEAKER) (test 0.94 K/ L 0.24-0.36 wczk=362) EOSINOPHILS ABSOLUTE COUNT (BEAKER) (test 0.00 K/ L 0.04-0.36 oosf=756) BASOPHILS ABSOLUTE COUNT (BEAKER) (test 0.02 K/ L 0.01-0.08 cbap=527) IMMATURE GRANULOCYTES-RELATIVE PERCENT (BEAKER) 1 % 0-1 (test ijcd=8917) PROTHROMBIN [id number] 06:21:00 Test Item Value Reference Range Comments PROTIME (BEAKER) (test cxtw=628) 13.5 seconds 11.7-14.7 INR (BEAKER) (test ujcd=540) 1.0 <=5.9 RECOMMENDED COUMADIN/WARFARIN INR THERAPY RANGESSTANDARD DOSE: 2.0 - 3.0 Includes: PROPHYLAXIS forvenous thrombosis, systemic embolization; TREATMENT for venous thrombosis and/or pulmonary embolus.HIGH RISK: Target INR is 2.5-3.5 for patients with mechanical heart valves.
[2018-08-13 20:32] LABS: Absolute Monocytes 0.5 K/uL (0.1-1.3); Absolute Neutrophil 5.1 K/uL (1.8-8.0); Basophils % 0.4 % (0-1.3); Eosinophils % 1.6 % (0-4.4); Hematocrit 40.9 % (36.0-45.0); Lymphocytes % 25.7 % (15.3-44.8); MPV 6.7 fL (7.6-11.3); Monocytes % 6.3 % (3.3-12.3); RBC Red Blood Cell Count 4.25 M/uL (3.86-4.86)
--- NOTE | 2018-08-13 20:40 | RAD REPORT ---
EXAM DESCRIPTION: Asaf Single View08/13/2018 8:23 pm CLINICAL HISTORY: Chest pain COMPARISON: July 12, 2018 FINDINGS: The lungs appear clear of acute infiltrate. The heart is normal size IMPRESSION: No acute abnormalities displayed
[2018-08-13 20:41] LABS: Protime INR 0.87
--- NOTE | 2018-08-13 20:50 | RAD REPORT ---
EXAM DESCRIPTION: CT - Head Brain Wo Cont - 08/13/2018 8:26 pm CLINICAL HISTORY: Headache COMPARISON: March 2017 TECHNIQUE: Computed axial tomography of the head was obtained. IV contrast was not requested. All CT scans are performed using dose optimization technique as appropriate and may include automated exposure control or mA/KV adjustment according to patient size. FINDINGS: An intracranial bleed is not seen . The ventricles are normal in caliber. No extra-axial fluid collection is noted. 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 Fluid within the sinuses/ mastoids is not seen. IMPRESSION: No acute intracranial abnormality is seen. If patient's symptoms persist MRI of the bra in would be recommended.
[2018-08-13 20:51] LABS: ALT/SGPT 33 U/L (12-78); AST/SGOT 24 U/L (15-37); Albumin 3.4 g/dL (3.4-5.0); Alkaline Phosphatase 58 U/L (45-117); BUN Blood Urea Nitrogen 15 mg/dL (7-18); Bicarbonate 29 mmol/L (21-32); Bilirubin Direct 0.3 mg/dL (0-0.2); Glucose Level 127 mg/dL (74-106); Magnesium 2.1 mg/dL (1.8-2.4); NT PRO-BNP 354 pg/mL (<450); Potassium 4.1 mmol/L (3.5-5.1); Protein, Total 6.8 g/dL (6.4-8.2); Sodium Level 131 mmol/L (136-145); Troponin (Emerg Dept Use Only) < 0.02 ng/mL (0.0-0.045)
[2018-08-13] MEDS ORDERED: ACETAMINOPHEN 325 MG TABLET ONE (20:53)
[2018-08-13 21:03] LABS: Arterial Blood Carboxyhemoglob 1.1 % (0-1.5); Blood Gas Oxyhemoglobin 93.1 % (94-97); Blood O2 Saturation 94.8 % (92-98.5)
[2018-08-13] MEDS ORDERED: ONDANSETRON 4 MG/2 ML VIAL ONE (21:22)
[2018-08-13 21:40] LABS: Urine Appearance CLEAR; Urine Bilirubin NEGATIVE (NEG); Urine Blood TRACE (NEG); Urine Color YELLOW; Urine Glucose NEGATIVE (NEG); Urine Protein NEGATIVE (NEG); Urine Urobilinogen 0.2 mg/dL (0.2-1.0)
[2018-08-13 22:07] LABS: Urine Blood 1+ (NEG); Urine Glucose NEGATIVE (NEG); Urine Protein TRACE (NEG)
[2018-08-13 22:15] LABS: Urine Microscopic Reflex ORDER UMIC
[2018-08-13 22:16] LABS: Urine Bacteria NONE SEEN /HPF (<20); Urine Culture Reflex Order REFLEXED
--- NOTE | 2018-08-13 23:50 | ER ---
Nurse's Notes [facility] Name: Elva Jenkins Age: 88 yrs Sex: Female : 1930 Arrival Date: 08/13/2018 Time: 20:02 Bed 20 Private MD: Diagnosis: Acute headache Presentation: 08/13 20:03 Presenting complaint: EMS states: We were called out for altered mental status, she is ed1 answering our questions just a bit slow. Transition of care: patient was received from another setting of care (long-term care facility), [facility]. Onset of symptoms was August 13, 2018. Risk Assessment: Do you want to hurt yourself or someone else? Patient reports no desire to harm self or others. Initial Sepsis Screen: Does the patient meet any 2 criteria? No. Patient's initial sepsis screen is negative. Does the patient have a suspected source of infection? No. Patient's initial sepsis screen is negative. Care prior to arrival: Glucose check: 130. 20:03 Method Of Arrival: EMS: [facility] ed1 20:03 Acuity: TAVON 2 ed1 Triage Assessment: 20:13 General: Appears in no apparent distress. Behavior is calm, cooperative. Pain: ed1 Complains of pain in forehead Pain currently is 8 out of 10 on a pain scale. Quality of pain is described as throbbing, Pain began 1 hour ago. Is continuous. EENT: Oral mucosa is moist. Neuro: Level of Consciousness is awake, alert, obeys commands, Oriented to person, place, time, situation, Dry Kiln Operator are equal bilaterally Moves all extremities. Full function Speech is normal, Facial symmetry appears normal, Reports headache in entire frontal area, since 1 hour ago. Cardiovascular: Denies chest pain, Heart tones S1 S2 present. Respiratory: Reports cough that is non-productive, Airway is patent Respiratory effort is even, unlabored, Respiratory pattern is regular, symmetrical, Breath sounds are clear bilaterally. GI: Patient currently denies diarrhea, nausea, vomiting. : Denies burning with urination. Derm: Skin is intact, is healthy with good turgor, Skin is dry, Skin is normal, Skin temperature is warm. Musculoskeletal: Circulation, motion, and sensation intact. Range of motion: intact in all extremities. Historical: - Allergies: 20:13 No Known Allergies; ed1 - Home Meds: 20:13 levothyroxine 50 mcg tab 1 tab once daily [Active]; prednisone 5 mg Oral tab 2 tabs ed1 once daily [Active]; atorvastatin 40 mg oral tab 1 tab once daily [Active]; famotidine 20 mg Oral tab 1 tab once daily [Active]; paroxetine HCl 40 mg oral tab 1 tab once daily [Active]; Spiriva with HandiHaler 18 mcg inhalation CpDv 1 cap once daily [Active]; Symbicort 160-4.5 mcg/actuation inhalation HFAA 2 puffs 2 times per day [Active]; albuterol sulfate 2.5 mg /3 mL (0.083 %) Inhl nebu 3 mL 3 times per day [Active]; albuterol sulfate 90 mcg/actuation Inhl HFAA 2 puffs every 6 hours [Active]; melatonin 3 mg Oral tab 2 tab nightly [Active]; - PMHx: 20:13 Hypothyroidism; Arthritis; Hyperlipidemia; GERD; Depression; COPD; ed1 - PSHx: 20:13 Appendectomy; Hysterectomy; Cholecystectomy; Bladder Sling; Knee surgery; Cataract, ed1 both eyes; Reveal Insertable Certified Art Therapist; Hernia repair; Rectal Mass Removal; - Immunization history:: Adult Immunizations up to date. - Social history:: Smoking status: Patient/guardian denies using tobacco. - Ebola Screening: : Patient negative for fever greater than or equal to 101.5 degrees Fahrenheit, and additional compatible Ebola Virus Disease symptoms Patient denies exposure to infectious person Patient denies travel to an Ebola-affected area in the 21 days before illness onset No symptoms or risks identified at this time. Screenin:17 Abuse screen: Denies threats or abuse. Denies injuries from another. Nutritional ed1 screening: No deficits noted. Tuberculosis screening: No symptoms or risk factors identified. Fall Risk None identified. Assessment: 20:17 General: See triage assessment. Oniel Jenkins [phone]. ed1 21:04 Reassessment: Patient and/or family updated on plan of care and expected duration. Pain ed1 level reassessed. Patient is alert, oriented x 3, equal unlabored respirations, skin warm/dry/pink. Patient states feeling better. Patient states symptoms have improved. 21:10 GI: Reports nausea. ed1 22:13 Reassessment: Patient appears in no apparent distress at this time. Patient and/or ed1 family updated on plan of care and expected duration. Pain level reassessed. Patient is alert, oriented x 3, equal unlabored respirations, skin warm/dry/pink. Patient states symptoms have not improved. GI: Patient currently denies nausea. 23:14 Reassessment: Patient appears in no apparent distress at this time. Patient and/or ed1 family updated on plan of care and expected duration. Pain level reassessed. Patient is alert, oriented x 3, equal unlabored respirations, skin warm/dry/pink. Patient states feeling better. Patient states symptoms have improved. 08/14 00:35 Reassessment: Patient appears in no apparent distress at this time. Patient and/or ed1 family updated on plan of care and expected duration. Pain level reassessed. Patient is alert, oriented x 3, equal unlabored respirations, skin warm/dry/pink. Patient states feeling better. Patient states symptoms have improved. Vital Signs: 08/13 20:13 BP 187 / 76; Pulse 86; Resp 17; Temp 99.4(O); Pulse Ox 97% on R/A; Weight 68.95 kg; ed1 Height 5 ft. 1 in. (154.94 cm); Pain 8/10; 21:04 BP 155 / 66; Pulse 77; Resp 23; Pulse Ox 100% on R/A; Pain 6/10; ed1 22:13 BP 168 / 88; Pulse 80; Resp 20; Pulse Ox 94% on R/A; Pain 7/10; ed1 23:14 BP 147 / 63; Pulse 93; Resp 20; Temp 98.1(O); Pulse Ox 94% on R/A; Pain 5/10; ed1 /03 00:35 BP 138 / 71; Pulse 76; Resp 19; Temp 97.9(O); Pulse Ox 99% on R/A; Pain 4/10; ed1 /02 20:13 Body Mass Index 28.72 (68.95 kg, 154.94 cm) ed1 NIH Stroke Scale Scores: 08/13 20:13 NIHSS Score: 0 ed1 ED Course: 20:02 Patient arrived in ED. ed1 20:02 Juan Pablo Valle MD is Attending Physician. pkl 20:04 Triage completed. ed1 20:10 Inserted saline lock: 22 gauge in right antecubital area, using aseptic technique. mt Blood collected. 20:13 Arm band placed on. ed1 20:17 Patient has correct armband on for positive identification. Placed in gown. Bed in low ed1 position. Call light in reach. Side rails up X2. monitoring engineer on. Pulse ox on. NIBP on. Warm blanket given. 20:18 Initial lab(s) drawn, by ED staff, sent to lab. First set of blood cultures drawn by ED ed1 staff, EKG done, by ED staff, reviewed by Juan Pablo Valle MD. 20:20 Marisel Saul, RN is Primary Nurse. ed1 20:26 XRAY Chest (1 view) In Process Unspecified. EDMS 20:28 CT Head Brain wo Cont In Process Unspecified. EDMS 06/03 00:35 No provider procedures requiring assistance completed. IV discontinued, intact, ed1 bleeding controlled, No redness/swelling at site. Pressure dressing applied. Administered Medications: 02 20:40 Drug: Tylenol 650 mg Route: PO; ed1 /03 00:30 Follow up: Response: No adverse reaction; Pain is decreased ed1 /02 21:11 Drug: Zofran 4 mg Route: IVP; Site: right antecubital; ed1 21:30 Follow up: Response: No adverse reaction; Nausea is decreased ed1 /03 00:31 Drug: [place] 5 mg-325 mg 1 tabs Route: PO; ed1 00:37 Follow up: Response: Medication administered at discharge. ed1 Outcome: 08/13 23:50 Discharge ordered by MD. simental / 00:35 Discharged to home ambulatory, via cab ed1 Condition: good Discharge instructions given to patient, Instructed on discharge instructions, follow up and referral plans. Demonstrated understanding of instructions, follow-up care. 00:37 Patient left the ED. ed1 NIH Stroke Scale - NIH Stroke Score Date: 08/13/2018 Time: 20:13 Total Score = 0 1a. Level of Consciousness (LOC) - 0(Alert) 1b. Level of Consciousness (LOC) (Year \T\ Age) - 0(Both) 1c. LOC Commands (Open \T\ Closes Eyes/Game Farm Supervisor) - 0(Both) 2. Best Gaze (Lateral Gaze Paresis) - 0(Normal) 3. Visual Field Loss - 0(No visual loss) 4. Facial Palsy - 0(Normal) 5a. Left Arm: Motor (10-second hold) - 0(No drift) 5b. Right Arm: Motor (10-second hold) - 0(No drift) 6a. Left Leg: Motor (5-second hold - always test supine) - 0(No drift) 6b. Right Leg: Motor (5-second hold - always test supine) - 0(No drift) 7. Limb Ataxia (finger/nose \T\ heel/whitt - test with eyes open) - 0(Absent) 8. Sensory Loss (pinprick arms/legs/face) - 0(Normal) 9. Best Language: Aphasia (description/naming/reading) - 0(No aphasia) 10. Dysarthria (speech clarity - read or repeat words) - 0(Normal) 11. Extinction and Inattention (visual/tactile/auditory/spatial/personal) - 0(No abnormality) Initials: ed1 Signatures: Dispatcher [employer] EDMS Juan Pablo Valle MD MD pkl Riggs, Erika, RN RN ed1 Sirisha Washington mt
--- NOTE | 2018-08-13 23:50 | EDPHYS ---
Physician Documentation [facility] Name: Elva Jenkins Age: 88 yrs Sex: Female : 1930 Arrival Date: 08/13/2018 Time: 20:02 Bed 20 Private MD: ED Physician Juan Pablo Valle HPI: 08/13 20:15 This 88 yrs old Female presents to ER via EMS with complaints of Altered pkl Mental Status. 20:15 The patient complains of pain to the forehead, left occipital area and left base of the pkl skull. The patient describes the headache as constant. Onset: The symptoms/episode began/occurred yesterday. Associated signs and symptoms: Pertinent positives: cough. The patient has experienced similar episodes in the past, a few times. Historical: - Allergies: 20:13 No Known Allergies; ed1 - Home Meds: 20:13 levothyroxine 50 mcg tab 1 tab once daily [Active]; prednisone 5 mg Oral tab 2 tabs ed1 once daily [Active]; atorvastatin 40 mg oral tab 1 tab once daily [Active]; famotidine 20 mg Oral tab 1 tab once daily [Active]; paroxetine HCl 40 mg oral tab 1 tab once daily [Active]; Spiriva with HandiHaler 18 mcg inhalation CpDv 1 cap once daily [Active]; Symbicort 160-4.5 mcg/actuation inhalation HFAA 2 puffs 2 times per day [Active]; albuterol sulfate 2.5 mg /3 mL (0.083 %) Inhl nebu 3 mL 3 times per day [Active]; albuterol sulfate 90 mcg/actuation Inhl HFAA 2 puffs every 6 hours [Active]; melatonin 3 mg Oral tab 2 tab nightly [Active]; - PMHx: 20:13 Hypothyroidism; Arthritis; Hyperlipidemia; GERD; Depression; COPD; ed1 - PSHx: 20:13 Appendectomy; Hysterectomy; Cholecystectomy; Bladder Sling; Knee surgery; Cataract, ed1 both eyes; Reveal Insertable Clinical Nutritionist; Hernia repair; Rectal Mass Removal; - Immunization history:: Adult Immunizations up to date. - Social history:: Smoking status: Patient/guardian denies using tobacco. - Ebola Screening: : Patient negative for fever greater than or equal to 101.5 degrees Fahrenheit, and additional compatible Ebola Virus Disease symptoms Patient denies exposure to infectious person Patient denies travel to an Ebola-affected area in the 21 days before illness onset No symptoms or risks identified at this time. ROS: 20:15 Eyes: Negative for injury, pain, redness, and discharge, ENT: Negative for injury, pkl pain, and discharge, Neck: Negative for injury, pain, and swelling, Cardiovascular: Negative for chest pain, palpitations, and edema. 20:15 Respiratory: Positive for cough, with green sputum, Negative for shortness of breath. 20:15 Abdomen/GI: Negative for abdominal pain, nausea, vomiting, and diarrhea. 20:15 Back: Negative for acute changes. 20:15 : Negative for urinary symptoms. 20:15 MS/extremity: Negative for acute changes. 20:15 Skin: Negative for rash. 20:15 Neuro: Negative for altered mental status, loss of consciousness. Exam: 20:15 Head/Face: Normocephalic, atraumatic. Eyes: Pupils equal round and reactive to light, pkl extra-ocular motions intact. Lids and lashes normal. Conjunctiva and sclera are non-icteric and not injected. Cornea within normal limits. Periorbital areas with no swelling, redness, or edema. ENT: Nares patent. No nasal discharge, no septal abnormalities noted. Tympanic membranes are normal and external auditory canals are clear. Oropharynx with no redness, swelling, or masses, exudates, or evidence of obstruction, uvula midline. Mucous membranes moist. Neck: Trachea midline, no thyromegaly or masses palpated, and no cervical lymphadenopathy. Supple, full range of motion without nuchal rigidity, or vertebral point tenderness. No Meningismus. Chest/axilla: Normal chest wall appearance and motion. Nontender with no deformity. No lesions are appreciated. Cardiovascular: Regular rate and rhythm with a normal S1 and S2. No gallops, murmurs, or rubs. Normal PMI, no JVD. No pulse deficits. Respiratory: Lungs have equal breath sounds bilaterally, clear to auscultation and percussion. No rales, rhonchi or wheezes noted. No increased work of breathing, no retractions or nasal flaring. Abdomen/GI: Soft, non-tender, with normal bowel sounds. No distension or tympany. No guarding or rebound. No evidence of tenderness throughout. Back: No spinal tenderness. No costovertebral tenderness. Full range of motion. Skin: Warm, dry with normal turgor. Normal color with no rashes, no lesions, and no evidence of cellulitis. MS/ Extremity: Pulses equal, no cyanosis. Neurovascular intact. Full, normal range of motion. 20:15 Neuro: Orientation: is normal, Mentation: is normal, Cranial nerves: grossly normal, Cerebellar function: normal finger to nose testing, heel to whitt testing is normal, Motor: is normal. Vital Signs: 20:13 BP 187 / 76; Pulse 86; Resp 17; Temp 99.4(O); Pulse Ox 97% on R/A; Weight 68.95 kg; ed1 Height 5 ft. 1 in. (154.94 cm); Pain 8/10; 21:04 BP 155 / 66; Pulse 77; Resp 23; Pulse Ox 100% on R/A; Pain 6/10; ed1 22:13 BP 168 / 88; Pulse 80; Resp 20; Pulse Ox 94% on R/A; Pain 7/10; ed1 23:14 BP 147 / 63; Pulse 93; Resp 20; Temp 98.1(O); Pulse Ox 94% on R/A; Pain 5/10; ed1 06/03 00:35 BP 138 / 71; Pulse 76; Resp 19; Temp 97.9(O); Pulse Ox 99% on R/A; Pain 4/10; ed1 02 20:13 Body Mass Index 28.72 (68.95 kg, 154.94 cm) ed1 NIH Stroke Scale Scores: 08/13 20:13 NIHSS Score: 0 ed1 MDM: 20:02 Patient medically screened. pkl 23:49 Data reviewed: vital signs, nurses notes, lab test result(s), radiologic studies, CT pkl scan. 08/13 20:12 Order name: Basic Metabolic Panel; Complete Time: 21:03 pkl 08/13 20:12 Order name: CBC with Diff; Complete Time: 21: pkl 08/13 20:12 Order name: LFT's; Complete Time: 21:03 pkl 08/13 20:12 Order name: Magnesium; Complete Time: 21:03 pkl 08/13 20:12 Order name: NT PRO-BNP; Complete Time: 21:03 pkl 08/13 20:12 Order name: PT-INR; Complete Time: 21:03 pkl 08/13 20:12 Order name: Troponin (emerg Dept Use Only); Complete Time: 21:03 pkl 08/13 20:12 Order name: ABG; Complete Time: 21:51 pkl 08/13 20:12 Order name: Blood Culture Adult (2) pkl 08/13 20:12 Order name: Lactate; Complete Time: 21:04 pkl 08/13 20:12 Order name: Procalcitonin; Complete Time: 21:51 pkl 08/13 20:19 Order name: UA; Complete Time: 23:45 pkl 08/13 21:40 Order name: Urine Dipstick--Ancillary (enter results) mw2 08/13 21:43 Order name: Urine Dipstick-Ancillary; Complete Time: 23:45 EDMS 08/13 20:12 Order name: XRAY Chest (1 view); Complete Time: 21:04 pkl 08/13 20:12 Order name: EKG; Complete Time: 20:14 pkl 08/13 20:12 Order name: Cardiac monitoring; Complete Time: 20:20 pkl 08/13 20:12 Order name: EKG - Nurse/Tech; Complete Time: 20:20 pkl 08/13 20:12 Order name: IV Saline Lock; Complete Time: 20:19 pkl 08/13 20:12 Order name: Labs collected and sent; Complete Time: 20:19 pkl 08/13 20:12 Order name: O2 Per Protocol; Complete Time: 20:19 pkl 08/13 20:12 Order name: O2 Sat Monitoring; Complete Time: 20:19 pkl 08/13 20:12 Order name: CT Head Brain wo Cont; Complete Time: 21:04 pkl 08/13 22:17 Order name: Urine Microscopic Only; Complete Time: 23:45 EDMS 08/13 22:20 Order name: Urine Culture EDMS Administered Medications: 20:40 Drug: Tylenol 650 mg Route: PO; ed1 03 00:30 Follow up: Response: No adverse reaction; Pain is decreased ed1 02 21:11 Drug: Zofran 4 mg Route: IVP; Site: right antecubital; ed1 21:30 Follow up: Response: No adverse reaction; Nausea is decreased ed1 08/14 00:31 Drug: [place] 5 mg-325 mg 1 tabs Route: PO; ed1 00:37 Follow up: Response: Medication administered at discharge. ed1 Disposition: 08/13/18 23:50 Discharged to Home. Impression: Acute headache. - Condition is Stable. - Medication Reconciliation Form, Thank You Letter, Antibiotic Education, Prescription Opioid Use form. - Follow up: Private Physician; When: 2 - 3 days; Reason: Re-evaluation by your physician. - Problem is new. - Symptoms have improved. NIH Stroke Scale - NIH Stroke Score Date: 08/13/2018 Time: 20:13 Total Score = 0 1a. Level of Consciousness (LOC) - 0(Alert) 1b. Level of Consciousness (LOC) (Year \T\ Age) - 0(Both) 1c. LOC Commands (Open \T\ Closes Eyes/Subassemblies Wirer) - 0(Both) 2. Best Gaze (Lateral Gaze Paresis) - 0(Normal) 3. Visual Field Loss - 0(No visual loss) 4. Facial Palsy - 0(Normal) 5a. Left Arm: Motor (10-second hold) - 0(No drift) 5b. Right Arm: Motor (10-second hold) - 0(No drift) 6a. Left Leg: Motor (5-second hold - always test supine) - 0(No drift) 6b. Right Leg: Motor (5-second hold - always test supine) - 0(No drift) 7. Limb Ataxia (finger/nose \T\ heel/whitt - test with eyes open) - 0(Absent) 8. Sensory Loss (pinprick arms/legs/face) - 0(Normal) 9. Best Language: Aphasia (description/naming/reading) - 0(No aphasia) 10. Dysarthria (speech clarity - read or repeat words) - 0(Normal) 11. Extinction and Inattention (visual/tactile/auditory/spatial/personal) - 0(No abnormality) Initials: ed1 Signatures: Dispatcher [employer] EDMS Juan Pablo Valle MD MD pkl Riggs, Erika, RN RN ed1 Corrections: (The following items were deleted from the chart) 00:37 06 23:50 08/13/2018 23:50 Discharged to Home. Impression: Acute headache. ed1 Condition is Stable. Forms are Medication Reconciliation Form, Thank You Letter, Antibiotic Education, Prescription Opioid Use. Follow up: Private Physician; When: 2 - 3 days; Reason: Re-evaluation by your physician. Problem is new. Symptoms have improved. pkl
[2018-08-14] MEDS ORDERED: HYDROCODONE/APAP 5/325 MG TAB ONE (00:43)
[2018-08-14 02:20] VITALS: BP 138/71; TEMP 97.9; O2SAT 99
--- NOTE | 2018-08-14 06:28 | EKG ---
Test Date: 2018-08-13 Test Time: 19:57:31 Electronic Heat Seal Operator: KOLTON MEASUREMENT RESULTS: Intervals: Rate: 80 TN: 156 QRSD: 70 QT: 368 QTc: 424 [place]: P: 97 TN: 156 QRS: 61 T: 87 INTERPRETIVE STATEMENTS: Normal sinus rhythm Possible Left atrial enlargement Low voltage QRS Borderline ECG Compared to ECG 01/17/2018 14:41:47 Low QRS voltage now present Electronically Signed On 08-14-18 06:27:31 CDT by Neri Ward
== END 2018-08-14 00:37 | disposition home or self-care (01) ==
LOC: ER 20:00
DX: R51 Headache (principal); E03.9 Hypothyroidism, unspecified; E78.5 Hyperlipidemia, unspecified; F32.9 Major depressive disorder, single episode, unspecified; J44.9 Chronic obstructive pulmonary disease, unspecified
CPT/HCPCS: 93005; 87040 ×2; 87088; 85025; 87086; 80048; 36415; 83735; 85610; 80076; 83605; 84484; 84145; 83880; 70450; 71045; 82805; 96374; 99285; J2405; 81003; 81015

== ENCOUNTER 2018-08-15 13:08 | Inpatient (IN) | payer OTHER ==
--- OUTSIDE RECORDS SUMMARY | 2018-08-15 13:14 | XMS REPORT | Clinical Summary ---
:1930 Author Organization [facility] Address [address] [place] [address] Care Team Providers Name Role Phone Hasmukh [...] Rectal bleeding; Rectal polyp; Normochromic anemia after 08/14/2017 Social History Tobacco Use Types Packs/Day Years [...] RHYTHM STRIP - SCAN 02/09/2018 2:43 PM [employer] INSULATOR RHYTHM STRIP - SCAN 09/20/2017 12:50 PM [...] Special Needs FLEX SIGMOIDOSCOPY WITH ANES after 08/14/2017 Results RHYTHM STRIP - SCAN (02/09/2018 2:43 PM [employer] INSULATOR)Only the most recent of2 resultswithin the time period is included. Narrative Performed At REPORT OF PROCEDURE - ENDOSCOPY URL (09/19/2017 1:13 PM CDT) Narrative Performed At TRANSFUSION SERVICE REPORT - SCAN (09/17/2017 6:00 PM CDT) Narrative Performed At PT/aPTT (09/17/2017 5:35 AM CDT) Protime 20.8 (H) 11.7 - 14.7 seconds [facility] INR 1.8 <=5.9 [facility] PTT 36.1 (H) 22.5 - 36.0 seconds [facility] Specimen Blood Narrative Performed At [facility] RECOMMENDED COUMADIN/WARFARIN INR THERAPY RANGES STANDARD DOSE: 2.0 - 3.0 Includes: PROPHYLAXIS for venous thrombosis, systemic embolization; TREATMENT for venous thrombosis and/or pulmonary embolus. HIGH RISK: Target INR is 2.5-3.5 for patients with mechanical heart valves. Performing Organization Address City/State/Zipcode Phone Number [facility] [address] [place] [address] CENTER CBC with platelet count + automated diff (09/17/2017 5:35 AM CDT) WBC 5.5 3.5 - 10.5 K/L [facility] RBC 3.52 (L) 3.93 - 5.22 M/L [facility] Hemoglobin 10.4 (L) 11.2 - 15.7 GM/DL [facility] Hematocrit 33.1 (L) 34.1 - 44.9 % [facility] MCV 94.0 79.4 - 94.8 fL [facility] MCH 29.5 25.6 - 32.2 pg [facility] MCHC 31.4 (L) 32.2 - 35.5 GM/DL [facility] RDW 19.8 (H) 11.7 - 14.4 % [facility] Platelets 240 150 - 450 K/CU MM [facility] MPV 8.5 (L) 9.4 - 12.3 fL [facility] nRBC 0 0 - 0 /100 WBC [facility] % Neutros 43 % [facility] % Lymphs 49 % [facility] % Monos 7 % [facility] % Eos 1 % [facility] % Baso 0 % [facility] # Neutros 2.34 1.56 - 6.13 K/L [facility] # Lymphs 2.68 1.18 - 3.74 K/L [facility] # Monos 0.38 (H) 0.24 - 0.36 K/L [facility] # Eos 0.05 0.04 - 0.36 K/L [facility] # Baso 0.02 0.01 - 0.08 K/L [facility] Immature Granulocytes-Relative 0 0 - 1 % [facility] Specimen Blood Performing Organization Address City/State/Zipcode Phone Number [address] [address] CENTER Magnesium (09/17/2017 5:35 AM CDT)Only the most recent of2 resultswithin the time period is included. Magnesium 1.9 1.6 - 2.6 mg/dL [facility] Specimen Blood Performing Organization Address City/State/Zipcode Phone Number [address] [address] [phone] CENTER Basic metabolic panel (09/17/2017 5:35 AM CDT)Only the most recent of2 resultswithin the time period is included. Sodium 138 136 - 145 meq/L [facility] Potassium 4.2 3.5 - 5.1 meq/L [facility] Chloride 106 98 - 107 meq/L [facility] CO2 25 22 - 29 meq/L [facility] BUN 6 (L) 7 - 21 mg/dL [facility] Creatinine 0.66 0.57 - 1.25 mg/dL [facility] Glucose 76 70 - 105 mg/dL [facility] Calcium 8.4 8.4 - 10.2 mg/dL [facility] EGFR 85Comment: ESTIMATED GFR IS mL/min/1.73 sq m [facility] NOT ACCURATE [facility] CLEARANCE IN PREDICTING GLOMERULAR FILTRATION RATE. ESTIMATED GFR IS NOT APPLICABLE FOR DIALYSIS PATIENTS. Specimen Blood Performing Organization Address City/[facility]/Zipcode Phone Number [address] [address] [phone] CENTER Type and screen, automated (09/16/2017 6:30 PM CDT) ABO/RH AUTOMATED (CEDRICAKER) A POSITIVE [facility] Ab Scrn NEGATIVE [facility] Specimen Blood Performing Organization Address City/State/Zipcode Phone Number [address] [address] [phone] CBC (Hemogram only) (09/16/2017 6:30 PM CDT) WBC 6.5 3.5 - 10.5 K/L [facility] RBC 3.61 (L) 3.93 - 5.22 M/L [facility] Hemoglobin 10.9 (L) 11.2 - 15.7 GM/DL [facility] Hematocrit 33.5 (L) 34.1 - 44.9 % [facility] MCV 92.8 79.4 - 94.8 fL [facility] MCH 30.2 25.6 - 32.2 pg [facility] MCHC 32.5 32.2 - 35.5 GM/DL [facility] RDW 19.8 (H) 11.7 - 14.4 % [facility] Platelets 239 150 - 450 K/CU MM [facility] MPV 8.7 (L) 9.4 - 12.3 fL [facility] nRBC 0 0 - 0 /100 WBC [facility] Specimen Blood Performing Organization Address City/[facility] Cent[facility]ode Phone Number [facility] [address] [place] [address] [phone] [facility] Tissue Exam (09/16/2017 3:38 PM CDT) Case Report Surgical Pathology Report Case: [id number] [facility] Authorizing Provider:Misha Calloway MDCollected: 09/16/2017 1538 MEDICAL [facility]ENTER Ordering Location: [address] Received: 09/19/2017 0820 Service Pathologist: Larry Cohn MD Specimen:Polyp, Colon - Rectosigmoid, POLYP TAKEN BY HOT SNARE DIAGNOSIS RECTO-SIGMOID, POLYPECTOMY [facility] - TUBULAR [facility] - CAUTERIZED EDGE, NEGATIVE FOR ADENOMATOUS CHANGE Signing Pathologist Direct Phone Line: [phone] CPT Code(s) [address]74 [facility] CLINICAL HISTORY GI bleed [facility] SPECIMEN SOURCE Rectosigmoid colon polyp [facility] GROSS DESCRIPTION The specimen is received in [facility] a formalin-filled [facility] and labeled with the patient's information and labeled "rectosigmoid colon polyp" and consists of a durham-red polyp measuring 0.8 x 0.8 x 0.3 cm. Resection margin is inked blue. The specimen is trisected, submitted entirely A1. CG/pl MICROSCOPIC DESCRIPTION There is no high grade dysplasia or carcinoma. [facility] Specimen Tissue - Polyp, Colon - Rectosigmoid Performing Organization Address City/[facility]/Zipcode Phone Number [facility] [address] [place] [address] [phone] CENTER after 08/14/2017 Insurance Payer Benefit Plan / Group Subscriber ID Type Phone Address [facility] [place] MEDICARE HMO xxxxxxxxx MGD CARE [facility] [place] PPO OPTIONS xxxxxxxxx PPO Advance Directives For more information, please contact:[place] [id number] [place], [place] [phone] Code Status Date Activated Date Inactivated Comments [...]
--- OUTSIDE RECORDS SUMMARY | 2018-08-15 13:15 | XMS REPORT ---
:[address] [facility] Address [address] [place] [address] [address] [place] [address] Care Team Providers Name Role Phone KIM MCKEON Unavailable Unavailable OTRICARDO ALMONTE Unavailable Unavailable Problems This patient has no known problems. Allergies, Adverse Reactions, Alerts This patient has no known allergies or adverse reactions. Medications This patient has no known medications. Results Test Description Test Time Test Comments Text Results Atomic Results Result Comments TISSUE EXAM 2017-09-20 16:22:00 Surgical Pathology Report Case: [id number] Authorizing Provider: Misha Calloway MD Collected: 09/16/2017 1538 Ordering Location: [address] Received: 09/19/2017 0820 Service Pathologist: Larry Cohn MD Specimen: Polyp, Colon - Rectosigmoid, POLYP TAKEN BY HOT SNARE RECTO-SIGMOID, POLYPECTOMY- TUBULAR ADENOMA- CAUTERIZED EDGE, NEGATIVE FOR ADENOMATOUS CHANGE Signing Pathologist Direct Phone Line: [phone] signed by Larry Cohn MD on 09/20/2017 at 4:22 [id number] bleedRectosigmoid colon polypThe specimen is received in [...] Value Reference Range Comments MAGNESIUM (BEAKER) (test oyvh=959) 1.9 mg/dL 1.6-2.6 BASIC METABOLIC [id number] 07:32:00 Test Item Value Reference Range Comments SODIUM (BEAKER) (test 138 meq/L 136-145 umlt=526) POTASSIUM (BEAKER) (test 4.2 meq/L 3.5-5.1 xxpj=407) CHLORIDE (BEAKER) (test 106 meq/L 98-107 wbbv=957) CO2 (BEAKER) (test 25 meq/L 22-29 sbjc=869) BLOOD UREA NITROGEN 6 mg/dL 7-21 (BEAKER) (test rwgu=610) CREATININE (BEAKER) (test 0.66 mg/dL 0.57-1.25 mofy=174) GLUCOSE RANDOM (BEAKER) 76 mg/dL 70-105 (test fmbp=358) CALCIUM (BEAKER) (test 8.4 mg/dL 8.4-10.2 kcqp=580) EGFR (BEAKER) (test 85 mL/min/1.73 sq m ESTIMATED GFR IS NOT hclr=1744) ACCURATE CREATININE CLEARANCE IN PREDICTING GLOMERULAR FILTRATION RATE. ESTIMATED GFR IS NOT APPLICABLE FOR DIALYSIS PATIENTS. [id number] 06:42:00 Test Item Value Reference Range Comments PROTIME (BEAKER) (test denu=097) 20.8 seconds 11.7-14.7 INR (BEAKER) (test nnhz=732) 1.8 <=5.9 PARTIAL THROMBOPLASTIN TIME (BEAKER) (test 36.1 seconds 22.5-36.0 dgzi=649) RECOMMENDED COUMADIN/WARFARIN INR THERAPY RANGESSTANDARD DOSE: 2.0 - 3.0 Includes: PROPHYLAXIS forvenous thrombosis, systemic embolization; TREATMENT for venous thrombosis and/or pulmonary embolus.HIGH RISK: Target INR is 2.5-3.5 for patients with mechanical heart valves.CBC W/PLT COUNT & AUTO [id number] 06:41:00 Test Item Value Reference Range Comments WHITE BLOOD CELL COUNT (BEAKER) (test wkvx=433) 5.5 K/ L 3.5-10.5 RED BLOOD CELL COUNT (BEAKER) (test yyoz=600) 3.52 M/ L 3.93-5.22 HEMOGLOBIN (BEAKER) (test huyw=686) 10.4 GM/DL 11.2-15.7 HEMATOCRIT (BEAKER) (test sjie=165) 33.1 % 34.1-44.9 MEAN CORPUSCULAR VOLUME (BEAKER) (test pckq=877) 94.0 fL 79.4-94.8 MEAN CORPUSCULAR HEMOGLOBIN (BEAKER) (test 29.5 pg 25.6-32.2 udgz=603) MEAN CORPUSCULAR HEMOGLOBIN CONC (BEAKER) (test 31.4 GM/DL 32.2-35.5 zxbv=606) RED CELL DISTRIBUTION WIDTH (BEAKER) (test 19.8 % 11.7-14.4 pqha=284) PLATELET COUNT (BEAKER) (test hzmd=486) 240 K/CU MM 150-450 MEAN PLATELET VOLUME (BEAKER) (test jmkh=779) 8.5 fL 9.4-12.3 NUCLEATED RED BLOOD CELLS (BEAKER) (test 0 /100 WBC 0-0 cqke=388) NEUTROPHILS RELATIVE PERCENT (BEAKER) (test 43 % rxcm=807) LYMPHOCYTES RELATIVE PERCENT (BEAKER) (test 49 % hptj=256) MONOCYTES RELATIVE PERCENT (BEAKER) (test 7 % xlsg=757) EOSINOPHILS RELATIVE PERCENT (BEAKER) (test 1 % gtig=515) BASOPHILS RELATIVE PERCENT (BEAKER) (test 0 % inku=177) NEUTROPHILS ABSOLUTE COUNT (BEAKER) (test 2.34 K/ L 1.56-6.13 mztu=509) LYMPHOCYTES ABSOLUTE COUNT (BEAKER) (test 2.68 K/ L 1.18-3.74 lrbo=505) MONOCYTES ABSOLUTE COUNT (BEAKER) (test 0.38 K/ L 0.24-0.36 fkoq=831) EOSINOPHILS ABSOLUTE COUNT (BEAKER) (test 0.05 K/ L 0.04-0.36 bcyz=006) BASOPHILS ABSOLUTE COUNT (BEAKER) (test 0.02 K/ L 0.01-0.08 alxb=573) IMMATURE GRANULOCYTES-RELATIVE PERCENT (BEAKER) 0 % 0-1 (test xses=4072) [id number] 19:07:00 Test Item Value Reference Range Comments MAGNESIUM (BEAKER) (test bzxv=315) 1.9 mg/dL 1.6-2.6 BASIC METABOLIC [id number] 19:07:00 Test Item Value Reference Range Comments SODIUM (BEAKER) (test 137 meq/L 136-145 idkt=329) POTASSIUM (BEAKER) (test 3.8 meq/L 3.5-5.1 nrmd=705) CHLORIDE (BEAKER) (test 106 meq/L 98-107 pspt=710) CO2 (BEAKER) (test 23 meq/L 22-29 tlhg=997) BLOOD UREA NITROGEN 6 mg/dL 7-21 (BEAKER) (test rbpj=218) CREATININE (BEAKER) (test 0.64 mg/dL 0.57-1.25 layt=596) GLUCOSE RANDOM (BEAKER) 82 mg/dL 70-105 (test ecnd=215) CALCIUM (BEAKER) (test 8.5 mg/dL 8.4-10.2 udbp=602) EGFR (BEAKER) (test 88 mL/min/1.73 sq m ESTIMATED GFR IS NOT xybp=4546) ACCURATE CREATININE CLEARANCE IN PREDICTING GLOMERULAR FILTRATION RATE. ESTIMATED GFR IS NOT APPLICABLE FOR DIALYSIS PATIENTS. CBC (HEMOGRAM ONLY)2017-09-16 18:38:00 Test Item Value Reference Range Comments WHITE BLOOD CELL COUNT (BEAKER) (test tbst=774) 6.5 K/ L 3.5-10.5 RED BLOOD CELL COUNT (BEAKER) (test ikjg=991) 3.61 M/ L 3.93-5.22 HEMOGLOBIN (BEAKER) (test jqjb=854) 10.9 GM/DL 11.2-15.7 HEMATOCRIT (BEAKER) (test yttv=794) 33.5 % 34.1-44.9 MEAN CORPUSCULAR VOLUME (BEAKER) (test xrgx=649) 92.8 fL 79.4-94.8 MEAN CORPUSCULAR HEMOGLOBIN (BEAKER) (test 30.2 pg 25.6-32.2 nzri=274) MEAN CORPUSCULAR HEMOGLOBIN CONC (BEAKER) (test 32.5 GM/DL 32.2-35.5 sclo=806) RED CELL DISTRIBUTION WIDTH (BEAKER) (test 19.8 % 11.7-14.4 kqkj=924) PLATELET COUNT (BEAKER) (test jcnd=363) 239 K/CU MM 150-450 MEAN PLATELET VOLUME (BEAKER) (test gkpz=930) 8.7 fL 9.4-12.3 NUCLEATED RED BLOOD CELLS (BEAKER) (test 0 /100 WBC 0-0 rned=584) [id number] 06:56:00 Test Item Value Reference Range Comments PHOSPHORUS (BEAKER) (test vwps=612) 2.7 mg/dL 2.3-4.7 [id number] 06:56:00 Test Item Value Reference Range Comments MAGNESIUM (BEAKER) (test drtz=820) 1.9 mg/dL 1.6-2.6 BASIC METABOLIC [id number] 06:56:00 Test Item Value Reference Range Comments SODIUM (BEAKER) (test 139 meq/L 136-145 sraw=002) POTASSIUM (BEAKER) (test 4.1 meq/L 3.5-5.1 cwrg=085) CHLORIDE (BEAKER) (test 107 meq/L 98-107 fogu=890) CO2 (BEAKER) (test 26 meq/L 22-29 ojsz=293) BLOOD UREA NITROGEN 11 mg/dL 7-21 (BEAKER) (test rzuz=475) CREATININE (BEAKER) (test 0.73 mg/dL 0.57-1.25 xcfc=925) GLUCOSE RANDOM (BEAKER) 107 mg/dL 70-105 (test lrag=581) CALCIUM (BEAKER) (test 8.5 mg/dL 8.4-10.2 ewrb=869) EGFR (BEAKER) (test 76 mL/min/1.73 sq m ESTIMATED GFR IS NOT bary=8237) ACCURATE CREATININE CLEARANCE IN PREDICTING GLOMERULAR FILTRATION RATE. ESTIMATED GFR IS NOT APPLICABLE FOR DIALYSIS PATIENTS. HEPATIC FUNCTION [id number] 06:56:00 Test Item Value Reference Range Comments TOTAL PROTEIN (BEAKER) (test tbnq=704) 5.2 gm/dL 6.0-8.3 ALBUMIN (BEAKER) (test mnod=6808) 2.9 g/dL 3.5-5.0 BILIRUBIN TOTAL (BEAKER) (test ksau=636) 0.8 mg/dL 0.2-1.2 BILIRUBIN DIRECT (BEAKER) (test tngw=889) 0.4 mg/dL 0.1-0.5 ALKALINE PHOSPHATASE (BEAKER) (test smxl=373) 43 U/L 40-150 AST (SGOT) (BEAKER) (test sgcp=089) 13 U/L 5-34 ALT (SGPT) (BEAKER) (test xzjt=155) 10 U/L 6-55 CALCIUM, [id number] 06:36:00 Test Item Value Reference Range Comments CALCIUM IONIZED (BEAKER) (test dfmi=498) 1.05 mmol/L 1.12-1.27 PH, BLOOD (BEAKER) (test ixox=3046) 7.46 PROTHROMBIN [id number] 06:35:00 Test Item Value Reference Range Comments PROTIME (BEAKER) (test pyma=796) 14.2 seconds 11.7-14.7 INR (BEAKER) (test rmjo=584) 1.1 <=5.9 RECOMMENDED COUMADIN/WARFARIN INR THERAPY RANGESSTANDARD DOSE: 2.0 - 3.0 Includes: PROPHYLAXIS forvenous thrombosis, systemic embolization; TREATMENT for venous thrombosis and/or pulmonary embolus.HIGH RISK: Target INR is 2.5-3.5 for patients with mechanical heart valves.CBC W/PLT COUNT & AUTO [id number] 06:25:00 Test Item Value Reference Range Comments WHITE BLOOD CELL COUNT (BEAKER) (test lfbf=472) 9.4 K/ L 3.5-10.5 RED BLOOD CELL COUNT (BEAKER) (test fxzm=560) 3.48 M/ L 3.93-5.22 HEMOGLOBIN (BEAKER) (test cpwq=835) 10.0 GM/DL 11.2-15.7 HEMATOCRIT (BEAKER) (test drzu=005) 31.1 % 34.1-44.9 MEAN CORPUSCULAR VOLUME (BEAKER) (test eovz=764) 89.4 fL 79.4-94.8 MEAN CORPUSCULAR HEMOGLOBIN (BEAKER) (test 28.7 pg 25.6-32.2 szre=587) MEAN CORPUSCULAR HEMOGLOBIN CONC (BEAKER) (test 32.2 GM/DL 32.2-35.5 jvsr=042) RED CELL DISTRIBUTION WIDTH (BEAKER) (test 18.3 % 11.7-14.4 ouoi=271) PLATELET COUNT (BEAKER) (test wcso=225) 234 K/CU MM 150-450 MEAN PLATELET VOLUME (BEAKER) (test oeck=618) 8.9 fL 9.4-12.3 NUCLEATED RED BLOOD CELLS (BEAKER) (test 0 /100 WBC 0-0 xnyp=671) NEUTROPHILS RELATIVE PERCENT (BEAKER) (test 70 % snfq=994) LYMPHOCYTES RELATIVE PERCENT (BEAKER) (test 24 % kiiv=000) MONOCYTES RELATIVE PERCENT (BEAKER) (test 5 % lzce=508) EOSINOPHILS RELATIVE PERCENT (BEAKER) (test 0 % pgrt=360) BASOPHILS RELATIVE PERCENT (BEAKER) (test 0 % ufci=772) NEUTROPHILS ABSOLUTE COUNT (BEAKER) (test 6.54 K/ L 1.56-6.13 amnq=467) LYMPHOCYTES ABSOLUTE COUNT (BEAKER) (test 2.30 K/ L 1.18-3.74 cooc=190) MONOCYTES ABSOLUTE COUNT (BEAKER) (test 0.50 K/ L 0.24-0.36 bfxn=024) EOSINOPHILS ABSOLUTE COUNT (BEAKER) (test 0.03 K/ L 0.04-0.36 kzxm=145) BASOPHILS ABSOLUTE COUNT (BEAKER) (test 0.02 K/ L 0.01-0.08 tgsc=454) IMMATURE GRANULOCYTES-RELATIVE PERCENT (BEAKER) 0 % 0-1 (test mkyg=3035) TISSUE [id number] 14:52:00Surgical Pathology Report Case: [id number] Authorizing Provider: Ricardo Wilson MD Collected: 08/02/2017 1715 Ordering Location: 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)- NEGATIVE FOR HIGH GRADE DYSPLASIA OR CARCINOMA- PERIPHERAL MARGINS, NEGATIVE FOR ADENOMATOUS CHANGE Signing Pathologist Direct Phone Line: [phone] signed by Larry Cohn MD on 08/04/2017 at 2:52 [id number] polyp Rectal mass Received in formalin labeled [...] the diagnostic line.CBC W/PLT COUNT & AUTO [id number] 06:19:00 Test Item Value Reference Range Comments WHITE BLOOD CELL COUNT (BEAKER) (test gcxm=157) 15.6 K/ L 3.5-10.5 RED BLOOD CELL COUNT (BEAKER) (test epwl=330) 3.50 M/ L 3.93-5.22 HEMOGLOBIN (BEAKER) (test udta=765) 9.9 GM/DL 11.2-15.7 HEMATOCRIT (BEAKER) (test epze=895) 31.4 % 34.1-44.9 MEAN CORPUSCULAR VOLUME (BEAKER) (test fzvl=072) 89.7 fL 79.4-94.8 MEAN CORPUSCULAR HEMOGLOBIN (BEAKER) (test 28.3 pg 25.6-32.2 nxge=045) MEAN CORPUSCULAR HEMOGLOBIN CONC (BEAKER) (test 31.5 GM/DL 32.2-35.5 qymo=263) RED CELL DISTRIBUTION WIDTH (BEAKER) (test 18.0 % 11.7-14.4 lhip=114) PLATELET COUNT (BEAKER) (test kems=550) 223 K/CU MM 150-450 MEAN PLATELET VOLUME (BEAKER) (test vokb=188) 8.7 fL 9.4-12.3 NUCLEATED RED BLOOD CELLS (BEAKER) (test 0 /100 WBC 0-0 pbdy=244) NEUTROPHILS RELATIVE PERCENT (BEAKER) (test 81 % vhzi=907) LYMPHOCYTES RELATIVE PERCENT (BEAKER) (test 15 % euji=296) MONOCYTES RELATIVE PERCENT (BEAKER) (test 4 % ziqy=161) EOSINOPHILS RELATIVE PERCENT (BEAKER) (test 0 % idua=722) BASOPHILS RELATIVE PERCENT (BEAKER) (test 0 % ccpz=332) NEUTROPHILS ABSOLUTE COUNT (BEAKER) (test 12.56 K/ L 1.56-6.13 iwdc=259) LYMPHOCYTES ABSOLUTE COUNT (BEAKER) (test 2.36 K/ L 1.18-3.74 zqxz=761) MONOCYTES ABSOLUTE COUNT (BEAKER) (test 0.56 K/ L 0.24-0.36 xwgq=573) EOSINOPHILS ABSOLUTE COUNT (BEAKER) (test 0.03 K/ L 0.04-0.36 bitj=097) BASOPHILS ABSOLUTE COUNT (BEAKER) (test 0.02 K/ L 0.01-0.08 ahcs=928) IMMATURE GRANULOCYTES-RELATIVE PERCENT (BEAKER) 0 % 0-1 (test cckt=7677) HEPATIC FUNCTION [id number] 06:15:00 Test Item Value Reference Range Comments TOTAL PROTEIN (BEAKER) (test mjrn=528) 4.9 gm/dL 6.0-8.3 ALBUMIN (BEAKER) (test xbpt=9962) 2.8 g/dL 3.5-5.0 BILIRUBIN TOTAL (BEAKER) (test nfia=164) 1.1 mg/dL 0.2-1.2 BILIRUBIN DIRECT (BEAKER) (test wxjt=094) 0.5 mg/dL 0.1-0.5 ALKALINE PHOSPHATASE (BEAKER) (test hhyq=568) 42 U/L 40-150 AST (SGOT) (BEAKER) (test rdrt=306) 15 U/L 5-34 ALT (SGPT) (BEAKER) (test vdht=040) 12 U/L 6-55 BASIC METABOLIC [id number] 06:15:00 Test Item Value Reference Range Comments SODIUM (BEAKER) (test 139 meq/L 136-145 wztn=618) POTASSIUM (BEAKER) (test 4.6 meq/L 3.5-5.1 gnxj=290) CHLORIDE (BEAKER) (test 108 meq/L 98-107 xicp=022) CO2 (BEAKER) (test 25 meq/L 22-29 brsm=134) BLOOD UREA NITROGEN 13 mg/dL 7-21 (BEAKER) (test harp=235) CREATININE (BEAKER) (test 0.73 mg/dL 0.57-1.25 kyjs=332) GLUCOSE RANDOM (BEAKER) 115 mg/dL 70-105 (test rxpf=186) CALCIUM (BEAKER) (test 8.5 mg/dL 8.4-10.2 idya=510) EGFR (BEAKER) (test 76 mL/min/1.73 sq m ESTIMATED GFR IS NOT bdlk=6596) ACCURATE CREATININE CLEARANCE IN PREDICTING GLOMERULAR FILTRATION RATE. ESTIMATED GFR IS NOT APPLICABLE FOR DIALYSIS PATIENTS. PROTHROMBIN [id number] 05:59:00 Test Item Value Reference Range Comments PROTIME (BEAKER) (test spgl=993) 14.6 seconds 11.7-14.7 INR (BEAKER) (test avsy=748) 1.1 <=5.9 RECOMMENDED COUMADIN/WARFARIN INR THERAPY RANGESSTANDARD DOSE: 2.0 - 3.0 Includes: PROPHYLAXIS forvenous thrombosis, systemic embolization; TREATMENT for venous thrombosis and/or pulmonary embolus.HIGH RISK: Target INR is 2.5-3.5 for patients with mechanical heart valves.URINALYSIS W/ [id number] 14 :53:00 Test Item Value Reference Range Comments COLOR (BEAKER) (test yoma=657) Yellow CLARITY (BEAKER) (test deuo=545) Clear SPECIFIC GRAVITY UA (BEAKER) (test uzfw=874) 1.010 1.001-1.035 PH UA (BEAKER) (test sxig=504) 5.5 5.0-8.0 PROTEIN UA (BEAKER) (test tapy=925) Negative Negative GLUCOSE UA (BEAKER) (test uzoh=600) Negative Negative KETONES UA (BEAKER) (test cbha=918) Trace Negative BILIRUBIN UA (BEAKER) (test ndqn=671) Negative Negative BLOOD UA (BEAKER) (test gbvt=280) Negative Negative NITRITE UA (BEAKER) (test oygf=527) Negative Negative LEUKOCYTE ESTERASE UA (BEAKER) (test tjqk=543) Negative Negative UROBILINOGEN UA (BEAKER) (test ubka=708) 0.2 mg/dL 0.2-1.0 RBC UA (BEAKER) (test qwal=552) 1 /HPF WBC UA (BEAKER) (test ooar=615) 3 /HPF MUCUS (BEAKER) (test rarl=8272) Few SQUAMOUS EPITHELIAL (BEAKER) (test fxwq=819) < /HPF HYALINE CASTS (BEAKER) (test xebs=621) 2 /LPF SOURCE(BEAKER) (test acme=0635) HEPATIC FUNCTION [id number] 06:31:00 Test Item Value Reference Range Comments TOTAL PROTEIN (BEAKER) (test bkaz=460) 5.2 gm/dL 6.0-8.3 ALBUMIN (BEAKER) (test hdwb=6695) 3.1 g/dL 3.5-5.0 BILIRUBIN TOTAL (BEAKER) (test jcko=306) 1.1 mg/dL 0.2-1.2 BILIRUBIN DIRECT (BEAKER) (test zevu=138) 0.5 mg/dL 0.1-0.5 ALKALINE PHOSPHATASE (BEAKER) (test ijro=200) 47 U/L 40-150 AST (SGOT) (BEAKER) (test hyyu=052) 20 U/L 5-34 ALT (SGPT) (BEAKER) (test fvro=769) 15 U/L 6-55 BASIC METABOLIC [id number] 06:31:00 Test Item Value Reference Range Comments SODIUM (BEAKER) (test 139 meq/L 136-145 kczt=677) POTASSIUM (BEAKER) (test 2.7 meq/L 3.5-5.1 ezwo=382) CHLORIDE (BEAKER) (test 106 meq/L 98-107 qsbe=014) CO2 (BEAKER) (test 24 meq/L 22-29 fvgb=646) BLOOD UREA NITROGEN 7 mg/dL 7-21 (BEAKER) (test akxk=015) CREATININE (BEAKER) (test 0.61 mg/dL 0.57-1.25 zuzv=558) GLUCOSE RANDOM (BEAKER) 88 mg/dL 70-105 (test eopr=020) CALCIUM (BEAKER) (test 8.4 mg/dL 8.4-10.2 uals=063) EGFR (BEAKER) (test 93 mL/min/1.73 sq m ESTIMATED GFR IS NOT ytiv=4912) ACCURATE CREATININE CLEARANCE IN PREDICTING GLOMERULAR FILTRATION RATE. ESTIMATED GFR IS NOT APPLICABLE FOR DIALYSIS PATIENTS. BASIC METABOLIC [id number] 06:30:00 Test Item Value Reference Range Comments SODIUM (BEAKER) (test 136 meq/L 136-145 bhtq=210) POTASSIUM (BEAKER) (test 3.0 meq/L 3.5-5.1 Specimen slightly klnr=020) hemolyzed CHLORIDE (BEAKER) (test 106 meq/L 98-107 ocpj=242) CO2 (BEAKER) (test 20 meq/L 22-29 jyfv=776) BLOOD UREA NITROGEN 7 mg/dL 7-21 (BEAKER) (test fqip=265) CREATININE (BEAKER) (test 0.61 mg/dL 0.57-1.25 Specimen slightly kwxw=228) hemolyzed GLUCOSE RANDOM (BEAKER) 81 mg/dL 70-105 (test uejp=545) CALCIUM (BEAKER) (test 8.2 mg/dL 8.4-10.2 qxav=152) EGFR (BEAKER) (test 93 mL/min/1.73 sq m ESTIMATED GFR IS NOT maow=4712) ACCURATE CREATININE CLEARANCE IN PREDICTING GLOMERULAR FILTRATION RATE. ESTIMATED GFR IS NOT APPLICABLE FOR DIALYSIS PATIENTS. CBC W/PLT COUNT & AUTO [id number] 06:25:00 Test Item Value Reference Range Comments WHITE BLOOD CELL COUNT (BEAKER) (test royk=281) 14.6 K/ L 3.5-10.5 RED BLOOD CELL COUNT (BEAKER) (test fcwf=846) 3.75 M/ L 3.93-5.22 HEMOGLOBIN (BEAKER) (test yklt=163) 10.5 GM/DL 11.2-15.7 HEMATOCRIT (BEAKER) (test phlf=919) 33.1 % 34.1-44.9 MEAN CORPUSCULAR VOLUME (BEAKER) (test ifld=349) 88.3 fL 79.4-94.8 MEAN CORPUSCULAR HEMOGLOBIN (BEAKER) (test 28.0 pg 25.6-32.2 qmfr=658) MEAN CORPUSCULAR HEMOGLOBIN CONC (BEAKER) (test 31.7 GM/DL 32.2-35.5 cpzf=324) RED CELL DISTRIBUTION WIDTH (BEAKER) (test 17.5 % 11.7-14.4 qbro=347) PLATELET COUNT (BEAKER) (test qgsr=873) 246 K/CU MM 150-450 MEAN PLATELET VOLUME (BEAKER) (test owso=037) 8.9 fL 9.4-12.3 NUCLEATED RED BLOOD CELLS (BEAKER) (test 0 /100 WBC 0-0 pfjb=585) NEUTROPHILS RELATIVE PERCENT (BEAKER) (test 88 % frsw=884) LYMPHOCYTES RELATIVE PERCENT (BEAKER) (test 5 % xdlr=214) MONOCYTES RELATIVE PERCENT (BEAKER) (test 6 % abhw=038) EOSINOPHILS RELATIVE PERCENT (BEAKER) (test 0 % dgbx=783) BASOPHILS RELATIVE PERCENT (BEAKER) (test 0 % ceks=201) NEUTROPHILS ABSOLUTE COUNT (BEAKER) (test 12.85 K/ L 1.56-6.13 gyde=516) LYMPHOCYTES ABSOLUTE COUNT (BEAKER) (test 0.71 K/ L 1.18-3.74 dxan=716) MONOCYTES ABSOLUTE COUNT (BEAKER) (test 0.94 K/ L 0.24-0.36 haow=382) EOSINOPHILS ABSOLUTE COUNT (BEAKER) (test 0.00 K/ L 0.04-0.36 oqhy=160) BASOPHILS ABSOLUTE COUNT (BEAKER) (test 0.02 K/ L 0.01-0.08 zobf=739) IMMATURE GRANULOCYTES-RELATIVE PERCENT (BEAKER) 1 % 0-1 (test wvms=5841) PROTHROMBIN [id number] 06:21:00 Test Item Value Reference Range Comments PROTIME (BEAKER) (test nzsv=242) 13.5 seconds 11.7-14.7 INR (BEAKER) (test wsui=210) 1.0 <=5.9 RECOMMENDED COUMADIN/WARFARIN INR THERAPY RANGESSTANDARD DOSE: 2.0 - 3.0 Includes: PROPHYLAXIS forvenous thrombosis, systemic embolization; TREATMENT for venous thrombosis and/or pulmonary embolus.HIGH RISK: Target INR is 2.5-3.5 for patients with mechanical heart valves.
[2018-08-15 14:47] LABS: Absolute Lymphocytes (CBC) 2.5 K/uL (0.7-4.9); Absolute Monocytes 0.7 K/uL (0.1-1.3); Absolute Neutrophil 4.2 K/uL (1.8-8.0); Basophils % 0.4 % (0-1.3); Eosinophils % 0.6 % (0-4.4); Hematocrit 38.8 % (36.0-45.0); Lymphocytes % 33.5 % (15.3-44.8); Monocytes % 8.9 % (3.3-12.3); RBC Red Blood Cell Count 4.17 M/uL (3.86-4.86)
[2018-08-15 15:01] LABS: ALT/SGPT 28 U/L (12-78); AST/SGOT 23 U/L (15-37); Albumin 3.1 g/dL (3.4-5.0); Alkaline Phosphatase 56 U/L (45-117); BUN Blood Urea Nitrogen 14 mg/dL (7-18); Bicarbonate 27 mmol/L (21-32); Bilirubin Direct 0.3 mg/dL (0-0.2); Bilirubin Total 1.5 mg/dL (0.2-1.0); Glucose Level 94 mg/dL (74-106); Lipase 161 U/L (73-393); Protein, Total 6.4 g/dL (6.4-8.2); Sodium Level 122 mmol/L (136-145)
--- NOTE | 2018-08-15 15:19 | RAD REPORT ---
EXAM DESCRIPTION: CTAbdomen Pelvis W Contrast - 08/15/2018 3:01 pm CLINICAL HISTORY: Abdominal pain. ABD PAIN COMPARISON: Abdomen Pelvis W Contrast dated 12/07/2017; Abdomen Pelvis W Contrast dated 07/05/2017 ; CT ABD PELVIS W CONTRAST dated 12/22/2012 TECHNIQUE: Biphasic CT imaging of the abdomen and pelvis was performed with 100 ml non-ionic IV cont rast. All CT scans are performed using dose optimization technique as appropriate and may include automated exposure control or mA/KV adjustment according to patient size. FINDINGS: Emphysematous lung bases noted.Small hiatal hernia is present with postsurgical changes at the gastroesophageal junction. The liver demonstrates no focal mass or biliary dilatation. Cholecystectomy clips. The spleen, pancre as, adrenal glands and kidneys show no acute process. No bowel obstruction, free air, free fluid or abscess. A pronounced sigmoid diverticulosis is present without diverticulitis. The appendix appears absent. No evidence of significant lymphadenopathy. Prominent lumbar degenerative changes. IMPRESSION: Prominent diverticulosis of sigmoid colon without diverticulitis seen.
--- NOTE | 2018-08-15 15:51 | ER ---
Nurse's Notes [facility] Name: Elva Jenkins Age: 88 yrs Sex: Female : 1930 Arrival Date: 08/15/2018 Time: 13:12 Bed 23 Private MD: Bharti Pollock C Diagnosis: Hyponatremia;Lack of appetite;Failure to thrive Presentation: 08/15 13:24 Presenting complaint: Patient states: i havent been able to keep anything down for tw2 about 3 days ago, nauseous, and i am having abdominal pain, i had hernia surgery 2 years ago and it has always bothered me. Transition of care: patient was not received from another setting of care. Onset of symptoms was August 15, 2018. Risk Assessment: Do you want to hurt yourself or someone else? Patient reports no desire to harm self or others. Initial Sepsis Screen: Does the patient meet any 2 criteria? No. Patient's initial sepsis screen is negative. Does the patient have a suspected source of infection? No. Patient's initial sepsis screen is negative. Care prior to arrival: None. 13:24 Method Of Arrival: Wheelchair tw2 13:24 Acuity: TAVON 2 tw2 Triage Assessment: 13:25 General: Appears uncomfortable, Behavior is calm, cooperative, appropriate for age. tw2 Pain: Complains of pain in epigastric area, right upper quadrant and left upper quadrant. GI: Parent/caregiver reports the patient having nausea, vomiting. Historical: - Allergies: 13:29 Phenergan; tw2 13:29 Asacol; tw2 13:29 Sulfazine; tw2 13:29 Methotrexate; tw2 13:29 Humira; tw2 13:29 Orencia; tw2 - Home Meds: 13:29 albuterol sulfate 2.5 mg /3 mL (0.083 %) Inhl nebu 3 mL 3 times per day [Active]; tw2 albuterol sulfate 90 mcg/actuation Inhl HFAA 2 puffs every 6 hours [Active]; atorvastatin 40 mg Oral tab 1 tab once daily [Active]; famotidine 20 mg Oral tab 1 tab once daily [Active]; levothyroxine 50 mcg tab 1 tab once daily [Active]; melatonin 3 mg Oral tab 2 tab nightly [Active]; paroxetine HCl 40 mg Oral tab 1 tab once daily [Active]; prednisone 5 mg Oral tab 2 tabs once daily [Active]; Spiriva with HandiHaler 18 mcg inhalation CpDv 1 cap once daily [Active]; Symbicort 160-4.5 mcg/actuation inhalation HFAA 2 puffs 2 times per day [Active]; benzonatate 200 mg oral cap 1 cap 3 times per day [Active]; - PMHx: 13:29 Hyperlipidemia; GERD; Hypothyroidism; COPD; Depression; Arthritis; tw2 - PSHx: 13:29 Bladder Sling; Cataract, both eyes; Reveal Insertable [employer]; Knee surgery; tw2 Cholecystectomy; Appendectomy; Hysterectomy; Hernia repair; Rectal Mass Removal; - Immunization history:: Adult Immunizations. - Social history:: Smoking status: . - Ebola Screening: : Patient denies travel to an Ebola-affected area in the 21 days before illness onset. Screenin:39 Abuse screen: Denies threats or abuse. Denies injuries from another. Nutritional ls4 screening: No deficits noted. Tuberculosis screening: No symptoms or risk factors identified. Fall Risk None identified. Assessment: 14:40 GI: ls4 14:43 General: Appears in no apparent distress. uncomfortable. Respiratory: Airway is patent ls4 Respiratory effort is even, unlabored, Respiratory pattern is regular. GI: Bowel sounds hypoactive in left upper quadrant and right upper quadrant Abd is soft and non tender X 4 quads. : Denies burning with urination, pain. 15:30 Reassessment: Patient and/or family updated on plan of care and expected duration. Pain ls4 level reassessed. Patient is alert, oriented x 3, equal unlabored respirations, skin warm/dry/pink. 16:25 Reassessment: Patient and/or family updated on plan of care and expected duration. Pain ls4 level reassessed. Patient is alert, oriented x 3, equal unlabored respirations, skin warm/dry/pink. Vital Signs: 13:25 BP 129 / 69; Pulse 75; Resp 17; Temp 98.9(TE); Pulse Ox 96% on R/A; Weight 52.16 kg tw2 (R); Pain 5/10; 14:30 BP 139 / 85; Pulse 76; Resp 16; Pulse Ox 99% on R/A; Pain 5/10; ls4 16:24 BP 158 / 85; Pulse 78; Resp 14; Pulse Ox 98% on R/A; Pain 5/10; ls4 ED Course: 13:12 Patient arrived in ED. mr 13:12 Bharti Pollock MD is Private Physician. mr 13:25 Triage completed. tw2 13:25 Arm band placed on. tw2 13:38 Naun Vargas MD is Attending Physician. ps1 14:07 Elise Cheung, RN is Primary Nurse. ls4 14:20 Inserted saline lock: 20 gauge in right antecubital area, using aseptic technique. ls4 Blood collected. 14:39 Patient has correct armband on for positive identification. Fall risk band placed. Bed ls4 in low position. Call light in reach. Side rails up X 1. 14:39 No provider procedures requiring assistance completed. ls4 15:03 CT Abd/Pelvis - IV Contrast Only In Process Unspecified. EDMS 15:20 Inserted saline lock: 20 gauge in left antecubital area, using aseptic technique. ls4 15:49 Bharti Pollock MD is Hospitalizing Provider. ps1 17:21 Patient admitted, IV remains in place. ls4 Administered Medications: 16:06 Drug: NS 0.9% 1000 ml Route: IV; Rate: 100 ml/hr; Site: left antecubital; ls4 17:19 Follow up: IV Status: Completed infusion; IV Intake: 1000ml ls4 Intake: 17:19 IV: 1000ml; Total: 1000ml. ls4 Outcome: 15:50 Decision to Hospitalize by Provider. ps1 17:20 Admitted to Tele accompanied by tech, family with patient, via wheelchair, room 215, on ls4 monitor, with chart, Report called to CHAYO DUNAWAY 17:20 Condition: stable 17:20 Instructed on the need for admit, safety practices. 17:21 Patient left the ED. ls4 Signatures: Dispatcher [facility] MendozaSerene Ping Evans, RN RN tw2 Naun Vargas MD MD ps1 Elise Cheung RN RN ls4
--- NOTE | 2018-08-15 15:52 | EDPHYS ---
Physician Documentation [facility] Name: Elva Jenkins Age: 88 yrs Sex: Female : 1930 Arrival Date: 08/15/2018 Time: 13:12 Bed 23 Private MD: Bharti Pollock C ED Physician Naun Vargas Historical: - Allergies: 08/15 13:29 Phenergan; tw2 13:29 Asacol; tw2 13:29 Sulfazine; tw2 13:29 Methotrexate; tw2 13:29 Humira; tw2 13:29 Orencia; tw2 - Home Meds: 13:29 albuterol sulfate 2.5 mg /3 mL (0.083 %) Inhl nebu 3 mL 3 times per day [Active]; tw2 albuterol sulfate 90 mcg/actuation Inhl HFAA 2 puffs every 6 hours [Active]; atorvastatin 40 mg Oral tab 1 tab once daily [Active]; famotidine 20 mg Oral tab 1 tab once daily [Active]; levothyroxine 50 mcg tab 1 tab once daily [Active]; melatonin 3 mg Oral tab 2 tab nightly [Active]; paroxetine HCl 40 mg Oral tab 1 tab once daily [Active]; prednisone 5 mg Oral tab 2 tabs once daily [Active]; Spiriva with HandiHaler 18 mcg inhalation CpDv 1 cap once daily [Active]; Symbicort 160-4.5 mcg/actuation inhalation HFAA 2 puffs 2 times per day [Active]; benzonatate 200 mg oral cap 1 cap 3 times per day [Active]; - PMHx: 13:29 Hyperlipidemia; GERD; Hypothyroidism; COPD; Depression; Arthritis; tw2 - PSHx: 13:29 Bladder Sling; Cataract, both eyes; Reveal Insertable [employer]; Knee surgery; tw2 Cholecystectomy; Appendectomy; Hysterectomy; Hernia repair; Rectal Mass Removal; - Immunization history:: Adult Immunizations. - Social history:: Smoking status: . - Ebola Screening: : Patient denies travel to an Ebola-affected area in the 21 days before illness onset. Vital Signs: 13:25 BP 129 / 69; Pulse 75; Resp 17; Temp 98.9(TE); Pulse Ox 96% on R/A; Weight 52.16 kg tw2 (R); Pain 5/10; 14:30 BP 139 / 85; Pulse 76; Resp 16; Pulse Ox 99% on R/A; Pain 5/10; ls4 16:24 BP 158 / 85; Pulse 78; Resp 14; Pulse Ox 98% on R/A; Pain 5/10; ls4 MDM: 13:54 Patient medically screened. [facility] 08/15 13:53 Order name: CBC with Diff; Complete Time: 14:49 [facility] 08/15 13:53 Order name: Creatinine for Radiology; Complete Time: 14:58 [facility] 08/15 13:53 Order name: Hepatic Function; Complete Time: 15:09 [facility] 08/15 13:53 Order name: Lipase; Complete Time: 15:09 [facility] 08/15 13:53 Order name: CMP; Complete Time: 15:09 [facility] 08/15 13:53 Order name: CT Abd/Pelvis - IV Contrast Only; Complete Time: 15:29 [facility] 08/15 13:53 Order name: IV Saline Lock; Complete Time: 14:47 [facility] 08/15 13:53 Order name: Labs collected and sent; Complete Time: 14:47 ps1 Administered Medications: 16:06 Drug: NS 0.9% 1000 ml Route: IV; Rate: 100 ml/hr; Site: left antecubital; ls4 17:19 Follow up: IV Status: Completed infusion; IV Intake: 1000ml ls4 Disposition: 08/15/18 15:50 Hospitalization ordered by Bharti Pollock for Inpatient Admission. Preliminary diagnosis are Hyponatremia, Lack of appetite, Failure to thrive. - Bed requested for Telemetry/MedSurg (Inpatient). - Status is Inpatient Admission. ls4 - Condition is Stable. - Problem is new. - Symptoms have improved. UTI on Admission? No Signatures: Dispatcher [employer] EDMS Saray Wilkerson Tara RN RN tw2 Naun Vargas MD MD ps1 Elise Cheung, GUME RN ls4 Corrections: (The following items were deleted from the chart) 16:50 15:50 Hospitalization Ordered by Bharti Pollock MD for Inpatient Admission. Preliminary bd diagnosis is Hyponatremia; Lack of appetite; Failure to thrive. Bed requested for Telemetry/MedSurg (Inpatient). Status is Inpatient Admission. Condition is Stable. Problem is new. Symptoms have improved. UTI on Admission? No. ps1 17:21 16:50 08/15/2018 15:50 Hospitalization Ordered by A Maris PALOMARES for Inpatient Admission. ls4 Preliminary diagnosis is Hyponatremia; Lack of appetite; Failure to thrive. Bed requested for Telemetry/MedSurg (Inpatient). Status is Inpatient Admission. Condition is Stable. Problem is new. Symptoms have improved. UTI on Admission? No. bd
[2018-08-15] MEDS ORDERED: NA CHLORIDE 0.9% 1,000 ML ONE (16:17)
[2018-08-15 17:28] VITALS: BMI 22.6
[2018-08-15] MEDS: NA CHLORIDE 0.9% 1,000 ML IV SCH (18:18)
[2018-08-15] MEDS ORDERED: METHYLPREDNISOLONE 40 MG INJ IV ONE (19:25)
[2018-08-15 20:07] LABS: BUN Blood Urea Nitrogen 12 mg/dL (7-18); Bicarbonate 28 mmol/L (21-32); Glucose Level 122 mg/dL (74-106); Potassium 3.8 mmol/L (3.5-5.1); Sodium Level 123 mmol/L (136-145)
[2018-08-15] MEDS: ATORVASTATIN 40 MG TAB PO SCH (20:09)
[2018-08-15] MEDS: MELATONIN 3 MG TABLET PO SCH (20:10)
[2018-08-15] MEDS: FAMOTIDINE 20 MG TAB PO SCH (20:10)
[2018-08-15] MEDS: HOME MED 1 EA UNK (Budesonide/Formoterol Fumarate [Symbicort 160-4.5 Mcg Inhaler] 2 PUFF) IH SCH (21:00)
[2018-08-15] MEDS: predniSONE 5 MG TAB PO SCH (21:44)
[2018-08-15] MEDS: ACETAMINOPHEN 500 MG TAB PO PRN (23:01)
[2018-08-16] MEDS: NA CHLORIDE 0.9% 1,000 ML IV SCH ×5 (03:39→23:23)
--- NOTE | 2018-08-16 03:52 | HP ---
Date of Admission: 08/15/2018 Chief Complaint: Headache, confusion, loss of appetite. History Of Present Illness: An 88-year-old female patient who has not had a good appetite in last 3 days or so and has not had much to eat or drink in last 3 days. No difficulty swallowing. No fever, chills. Has had some nausea in last few days. No vomiting. No bleeding. Two days ago, she came i [facility] emergency room with this headache and confusion type of problem, was evaluated in the ER and was released to go back to assisted care facility at [facility]. She takes her medications regularly i ncluding her chronic prednisone therapy and she takes 5 mg twice a day and she took all her medicatio n up until yesterday. As of this morning, she has not taken any of her medications. Today, she was brought into emergency room by her family because she was not improving any and after she was evaluat ed, she was admitted to the hospital. Her sodium level today was 122 and 2 days ago when she was in the emergency room, her sodium level was 131. Medications: List reviewed. Review of Systems: OUTPATIENT ADMITTING CLERK: As mentioned above. GI: As mentioned above. All other systems reviewed and negative. Allergies: SHE IS LISTED ALLERGIC TO SULFA CAUSING HEADACHE, RITUXIMAB CAUSING LEG SWELLING, PROM ETHAZINE CAUSING HALLUCINATION AND LEG JERKING PROBLEM AND ARM JERKING, METHOTREXATE CAUSING DYSPNEA, MESALAMINE CAUSING SORE THROAT AND HIVES, ADALIMUMAB CAUSING FACE SWELLING AND ABATACEPT CAUSING SHANNA NT PAIN. Past Surgical History: Significant for hysterectomy, appendectomy, cholecystectomy, cataract surgery , removal of benign rectal mass on August 02, 2017, done in [place]. Family History: Parents of old age at age 99 and 95 years. Sister with stroke and hypertension . Social History: Negative for smoking and alcohol use. Past Medical History: Significant for lymphedema of legs, hypertension, hypothyroidism, COPD, chroni c steroid therapy, rheumatoid arthritis, chronic leg edema, hemorrhoid, Clostridium difficile colitis , DVT of leg, pulmonary embolism diagnosed in August of last year. Physical Examination: Vital Signs: When she first came into emergency room, temperature 98.9, pulse 75, respiratory rate 1 7, blood pressure 129/69, oxygen saturation 96%. Height 4 feet and 8 inches, weight 101 pounds. General: Awake, alert, oriented, not in distress. HEENT: Head atraumatic, normocephalic. Conjunctivae nonerythematous. Sclerae white. Mouth, no thr ush or edema noted. Ears/Nose, no mass, lesion, discharge noted. Neck: Supple. No JVD, lymph nodes, bruit, thyromegaly noted. Lungs: Bilateral good equal air entry. Clear to auscultation. No rhonchi. No rales. Heart: Normal heart sounds, no murmur or gallop. Abdomen: Soft, bowel sounds normal. No guarding, rigidity, tenderness, mass, hepatosplenomegaly, di stention, or bruit noted. Extremities: No leg edema. No calf tenderness. Skin: No rash, ulcer, cellulitis. Lymphatics: No lymph node enlargement in neck, supraclavicular, infraclavicular region. Neuro: No focal neurological deficit. Chest: Unremarkable. External Genitalia: Deferred. Rectal: Deferred. Laboratory Data: Two days ago on 08/13/2018, when she came into emergency room, all the tests done i n the emergency room reviewed including CBC which was unremarkable. Chemistry, unremarkable except s odium level 131. Chest x-ray, no acute cardiopulmonary changes and CAT scan of the head, no acute in tracranial changes. Today, white count 7.4, hemoglobin 13.7, platelets 289. Sodium 122, potassium 4 , chloride 87, bicarb 27, BUN 14, creatinine 0.59, glucose 94. Total bilirubin 1.5. Liver function tests unremarkable. Lipase 161. CAT scan of abdomen and pelvis done with contrast today shows promi nent diverticulosis without diverticulitis. Impression: 1.Hyponatremia. 2.Volume depletion. 3.Chronic steroid therapy. 4.COPD. 5.Rheumatoid arthritis. 6.Hypothyroidism. 7.Hypertension. 8.Lymphedema, legs. Plan: We will go ahead and admit the patient to hospital for further evaluation and management of th is problem. The patient is appropriate for inpatient and is [facility]. We will start DVT prophylaxis using Lovenox per order. Home medications will be continued per or aida. We will give 1 dose of IV Solu-Medrol 40 mg x1 tonight. IV fluid normal saline was started in emergency room. We will continue that. We will get a Chem-7 done this evening. We will follow up o n results. Tomorrow morning, we will repeat blood work including thyroid tests and lipid profile, an d triglycerides. If sodium level does not improve or deteriorates with current treatment, then we ma y have to consider hypertonic saline solution and in that case, we may have to move her to ICU and de tails were discussed with the patient and her son who was at bedside. I will see her tomorrow for pauline valladares. ARNOL/MODL Voice ID: [id number]
[2018-08-16 05:33] LABS: Absolute Lymphocytes (CBC) 1.2 K/uL (0.7-4.9); Absolute Monocytes 0.1 K/uL (0.1-1.3); Basophils % 0.2 % (0-1.3); Hematocrit 37.6 % (36.0-45.0); Lymphocytes % 27.2 % (15.3-44.8); MPV 6.9 fL (7.6-11.3); Monocytes % 3.1 % (3.3-12.3)
[2018-08-16] MEDS: LEVOTHYROXINE SOD 0.05 MG TABLET PO SCH (05:35)
[2018-08-16] MEDS: ACETAMINOPHEN 500 MG TAB PO PRN (05:51)
[2018-08-16 06:00] LABS: BUN Blood Urea Nitrogen 10 mg/dL (7-18); Bicarbonate 25 mmol/L (21-32); Glucose Level 121 mg/dL (74-106); HDL Cholesterol 72 mg/dL (40-60); LDL Cholesterol, Calculated 40 (<130); Potassium 3.8 mmol/L (3.5-5.1); Sodium Level 123 mmol/L (136-145); Thyroid Stimulating Hormone 0.533 uIU/mL (0.360-3.740)
[2018-08-16] MEDS ORDERED: METHYLPREDNISOLONE 40 MG INJ IV ONE (07:17)
[2018-08-16] MEDS: HOME MED 1 EA UNK (Budesonide/Formoterol Fumarate [Symbicort 160-4.5 Mcg Inhaler] 2 PUFF) IH SCH ×2 (07:39→21:00)
[2018-08-16] MEDS: ENOXAPARIN 30 MG/0.3 ML SQ SCH (08:11)
[2018-08-16] MEDS: predniSONE 5 MG TAB PO SCH ×2 (08:54→21:40)
[2018-08-16] MEDS ORDERED: ONDANSETRON 4 MG/2 ML VIAL IV PRN (09:19)
[2018-08-16] MEDS ORDERED: ALPRAZOLAM 0.25 MG TABLET PO ONE (12:01)
[2018-08-16] MEDS ORDERED: TIOTROPIUM 5 SPRAYS/INHALER IH SCH (14:15)
[2018-08-16] MEDS ORDERED: ALBUTEROL INHALER 60 PUFF/8 GM IH PRN (14:15)
[2018-08-16] MEDS ORDERED: ENSURE ENLIVE 237 ML CAN PO PRN (14:44)
[2018-08-16 16:13] LABS: BUN Blood Urea Nitrogen 12 mg/dL (7-18); Bicarbonate 25 mmol/L (21-32); Glucose Level 136 mg/dL (74-106); Potassium 4.2 mmol/L (3.5-5.1); Sodium Level 128 mmol/L (136-145)
[2018-08-16] MEDS: ATORVASTATIN 40 MG TAB PO SCH (21:40)
[2018-08-16] MEDS: FAMOTIDINE 20 MG TAB PO SCH (21:41)
[2018-08-16] MEDS: MELATONIN 3 MG TABLET PO SCH (21:42)
--- NOTE | 2018-08-17 00:16 | PN ---
Date of Progress Note: 08/16/2018 Subjective: The patient was seen this morning for followup. No new complaints, problems reported by her except nausea. Objective: Vital Signs: Reviewed. HEENT: Unremarkable. Lungs: Clear to auscultation. No rhonchi or rales. Heart: Sounds normal. Abdomen: Soft. Bowel sounds normal. No guarding, rigidity, tenderness, or distention. Extremities: No leg edema. Laboratory Data: White count 4.3, hemoglobin 13.3, platelets 272. Sodium 123, potassium 3.8, chlori de 92, bicarb 25, BUN 10, creatinine 0.48, glucose 121. TSH 0.53, triglyceride 47. Repeat sodium le denice this evening is 128. Impression: 1.Hyponatremia. 2.Volume depletion. 3.Nausea. 4.Anxiety. Plan: The patient was having some anxiety problem this afternoon and 1 dose of alprazolam was ordere d. Nausea medication will be given per order. The patient's sodium level is improving. We will con tinue current IV fluid, repeat blood work tomorrow, and I will see her tomorrow morning for followup. Depending on her blood work and condition, we will decide if she is stable for discharge tomorrow o r not. ARNOL/MODL Voice ID: [id number] Report ID: [id number]
[2018-08-17] MEDS: LEVOTHYROXINE SOD 0.05 MG TABLET PO SCH (05:34)
[2018-08-17 06:19] LABS: BUN Blood Urea Nitrogen 12 mg/dL (7-18); Bicarbonate 30 mmol/L (21-32); Glucose Level 87 mg/dL (74-106); Magnesium 2.1 mg/dL (1.8-2.4); Potassium 4.3 mmol/L (3.5-5.1); Sodium Level 137 mmol/L (136-145)
[2018-08-17] MEDS: HOME MED 1 EA UNK (Budesonide/Formoterol Fumarate [Symbicort 160-4.5 Mcg Inhaler] 2 PUFF) IH SCH (09:00)
[2018-08-17] MEDS: predniSONE 5 MG TAB PO SCH (09:06)
[2018-08-17] MEDS: ENOXAPARIN 30 MG/0.3 ML SQ SCH (09:06)
[2018-08-17 13:10] VITALS: BP 146/58; TEMP 98.1
[2018-08-17 18:29] VITALS: O2SAT 93
--- NOTE | 2018-08-18 04:48 | DS ---
Date of Discharge: 08/17/2018 Disposition: Discharged to go home. Physical Examination: HEENT: Unremarkable. Lungs: Clear to auscultation. Heart: Sounds normal. Abdomen: Soft. Bowel sounds normal. No guarding, rigidity, tenderness, or distention. Extremities: No leg edema. Laboratory Data: Initial sodium was 122. The patient's last sodium this morning was 137, potassium of 4.3, chloride 102, bicarb 30, BUN 12, creatinine 0.58, glucose 87, magnesium 2.1. Triglycerides n ormal at 47. TSH normal at 0.53. Initial white count 7.4, hemoglobin 13.7, platelets 289. Hospital Course: An 88-year-old female patient who lives at [facility] into emergency room with headache, confusion, loss of appetite. Please see dictated H and P for mo re information. After the patient came into emergency room, she was admitted to the hospital with hy ponatremia and volume depletion. She was treated with IV fluid normal saline and her sodium slowly c justin up and electrolytes and renal function was followed very closely to see the response of therapy. She had some nausea, which she responded well to nausea medication. She is ambulating well without any problem. No vomiting, diarrhea. She is tolerating diet very well and she was discharged to [facility] in stable condition this morning with above-mentioned medication and instruction. The patient matute s an outpatient appointment scheduled to have EGD with Dr. Topete for tomorrow and she will keep that a ppointment. Her nausea has resolved. No headache. No confusion and she is back to her baseline aga in. Final Diagnoses: 1.Hyponatremia. 2.Volume depletion. 3.Chronic steroid therapy. 4.Chronic obstructive pulmonary disease. 5.Rheumatoid arthritis. 6.Hypothyroidism. 7.Hypertension. 8.Lymphedema, legs. Discharge Instructions: Continue all prior home medications. Follow up at my office next week on and 2 days before coming to see me. The patient to come to office for blood work which is chem 7 to be done. ARNOL/MODL Voice ID: [id number] Report ID: [id number]
== END 2018-08-17 11:00 | DRG 641 ==
LOC: ER 13:08 → ERHOLD 15:57 → 2ND 17:11
PROVIDERS: ADMIT Internal Medicine; ATTEND Internal Medicine
DX: E87.1 Hypo-osmolality and hyponatremia (principal); E86.9 Volume depletion, unspecified; J44.9 Chronic obstructive pulmonary disease, unspecified; M06.9 Rheumatoid arthritis, unspecified; E03.9 Hypothyroidism, unspecified; I10 Essential (primary) hypertension; I89.0 Lymphedema, not elsewhere classified; R11.0 Nausea; F41.9 Anxiety disorder, unspecified; Z79.52 Long term (current) use of systemic steroids
CPT/HCPCS: 36415; 70450; 71045; 74177; 80048; 80053; 80061; 80076; 81003; 81015; 82805; 83605; 83690; 83735; 83880; 84145; 84443; 84484; 85025; 85610; 87040; 87086; 87088; 93005; 96360; 96374; 99285; J1650; J2405; J2920; J7030; J7512; Q9967

== ENCOUNTER 2018-09-18 12:47 | Emergency (ER) | payer OTHER ==
--- OUTSIDE RECORDS SUMMARY | 2018-09-18 12:50 | XMS REPORT | Clinical Summary ---
:1930 Author Organization [facility] Address [address] [place] [address] Care Team Providers Name Role Phone Asked, [...] Jose Alberto Ayala MD Hiatal hernia after 09/17/2017 Family History Medical History Relation Name Comments [...] Taken Blood Pressure 132/60 03/02/2018 12:02 PM [facility] Pulse 78 03/02/2018 12:02 PM [facility] Temperature 36.1 C (97 F) 03/02/2018 12:02 PM [facility] Respiratory Rate 14 03/02/2018 12:02 PM [facility] Oxygen Saturation 93% 03/02/2018 12:02 PM [facility] Inhaled Oxygen Concentration - - Weight 51.1 kg (112 lb 9.6 oz) 03/02/2018 5:13 AM [facility] Height - - Body Mass Index 22.74 04/12/2017 12:01 PM [facility] Plan of Treatment Health Maintenance Due Date Last Done Comments SHINGLES VACCINES (#1) 1981 65+ PNEUMOCOCCAL VACCINE (1 of 2 - PCV13) 1996 INFLUENZA VACCINE 10/12/2018 Implants Implanted Type Area [employer] Dec[employer]ator Device Identifier Shelf Expiration Model / Date Serial / Lot Reveal Linq-02/02/2016 Implanted: Qty: 1 on 02/02/2016 Procedures Procedure Name Priority Date/Time Associated Comments Diagnosis ESTIMATED GFR Routine 03/02/2018 3:55 Results for this AM [facility] procedure are in the results section. THYROID STIMULATING Routine 03/02/2018 3:55 Results for this HORMONE AM [facility] procedure are in the results section. HC COMPLETE BLD COUNT Routine 03/02/2018 3:55 Results for this W/AUTO DIFF AM [facility] procedure are in the results section. BASIC METABOLIC PANEL Routine 03/02/2018 3:55 Results for this AM [facility] procedure are in the results section. US DUPLEX VENOUS LOWER Routine 03/01/2018 11:47 Results for this EXTREMITY BILATERAL AM [facility] procedure are in the results section. ECHOCARDIOGRAM 2D Routine 03/01/2018 7:35 Results for this COMPLETE W MMODE AM [facility] procedure are in SPECTRAL COLOR DOPPLER the results (04871) section. CBC WITH PLATELET AND Routine 03/01/2018 4:39 Results for this DIFFERENTIAL AM [facility] procedure are in the results section. ESTIMATED GFR Routine 03/01/2018 4:00 Results for this AM [facility] procedure are in the results section. PHOSPHORUS LEVEL Routine 03/01/2018 4:00 Results for this AM [facility] procedure are in the results section. MAGNESIUM LEVEL Routine 03/01/2018 4:00 Results for this AM [facility] procedure are in the results section. IONIZED CALCIUM Routine 03/01/2018 4:00 Results for this AM [facility] procedure are in the results section. BASIC METABOLIC PANEL Routine 03/01/2018 4:00 Results for this AM [facility] procedure are in the results section. CT ANGIOGRAM PE CHEST Routine 02/28/2018 10:59 Results for this PM [facility] procedure are in the results section. CT ABDOMEN PELVIS WO Routine 02/28/2018 10:59 Results for this CONTRAST PM [facility] procedure are in the results section. IONIZED CALCIUM Routine 02/28/2018 7:46 Results for this PM [facility] procedure are in the results section. ESTIMATED GFR Routine 02/28/2018 7:46 Results for this PM [facility] procedure are in the results section. PHOSPHORUS LEVEL Routine 02/28/2018 7:46 Results for this PM [facility] procedure are in the results section. COMPREHENSIVE METABOLIC Routine 02/28/2018 7:46 Results for this PANEL PM [facility] procedure are in the results section. MAGNESIUM LEVEL Routine 02/28/2018 7:46 Results for this PM [facility] procedure are in the results section. HC COMPLETE BLD COUNT Routine 02/28/2018 7:05 Results for this W/AUTO DIFF PM [facility] procedure are in the results section. PROTHROMBIN TIME WITH Routine 02/28/2018 7:05 Results for this INR PM [facility] procedure are in the results section. XR CHEST 1 VW PORTABLE STAT 02/28/2018 6:44 Results for this PM [facility] procedure are in the results section. TYPE AND SCREEN STAT 02/28/2018 6:20 Results for this PM [facility] procedure are in the results section. ECG 12-LEAD STAT 02/28/2018 5:57 Results for this PM [facility] procedure are in the results section. after 09/17/2017 Results Estimated GFR (03/02/2018 3:55 AM [facility])Only the most recent of3 resultswithin the time period is included. Estimated GFR 58 (A) mL/min/1.73 [facility] Comment: m2 HOSPITAL CatergoryUnitsInterpretation G1 >=90 Normal or high G2 60-89Mildly decreased A4w02-13Gchvjy to moderately decreased P4f70-23Rycvmrxjqg to severely decreased G4 15-29Severely decreased G5 <15Kidney failure The eGFR was calculated using the Chronic Kidney Disease Epidemiology Collaboration (CKD-EPI) equation. Interpretation is based on recommendations of the National Kidney Foundation-Kidney Disease Outcomes Quality Initiative (NKF-KDOQI) published in 2014. Specimen Plasma specimen Performing Organization Address City/[facility]/Zipcode Phone Number [facility] DEPARTMENT OF PATHOLOGY AND [address] [place] [address] GENOMIC MEDICINE [facility] [address] [place] [address] CBC with platelet and differential (03/02/2018 3:55 AM [facility])Only the most recent of3 resultswithin the time period is included. WBC 7.03 4.50 - 11.00 [facility] k/uL HOSPITAL RBC 3.52 (L) 4.20 - 5.50 [facility] m/uL HOSPITAL HGB 11.2 (L) 12.0 - 16.0 [facility] g/dL [facility] HCT 33.5 (L) 37.0 - 47.0 % [facility] MCV 95.2 82.0 - 100.0 [facility] MCH 31.8 27.0 - 34.0 pg [facility] MCHC 33.4 31.0 - 37.0 [facility] g/dL [facility] RDW - SD 49.1 37.0 - 55.0 fL [facility] MPV 8.8 8.8 - 13.2 fL [facility] Platelet count 238 150 - 400 k/uL [facility] Nucleated RBC 0.00 /100 WBC [facility] Neutrophils 64.5 39.0 - 69.0 % [facility] Lymphocytes 28.7 25.0 - 45.0 % [facility] Monocytes 6.0 0.0 - 10.0 % [facility] Eosinophils 0.1 0.0 - 5.0 % [facility] Basophils 0.4 0.0 - 1.0 % [facility] Immature granulocytes 0.3Comment: 0.0 - 1.0 % [facility] "Immature HOSPITAL granulocytes" (promyelocytes , myelocytes, metamyelocytes ) Specimen Blood Performing Organization Address City/[facility]/Zipcode Phone Number [facility] DEPARTMENT OF PATHOLOGY AND [address] [place] [address] Thyroid stimulating hormone (03/02/2018 3:55 AM [facility]) Pathologist [facility] TSH 1.42 0.27 - 4.20 uIU/mL [facility] Specimen Plasma specimen Performing Organization Address [facility] Cent[facility]ode Phone Number [facility] DEPARTMENT OF PATHOLOGY AND [address] [place] [address] Basic metabolic panel (03/02/2018 3:55 AM [facility])Only the most recent of2 resultswithin the time period is included. Pathologist [facility] Sodium 135 135 - 148 mEq/L [facility] Potassium 3.9 3.5 - 5.0 mEq/L [facility] Chloride 94 (L) 98 - 112 mEq/L [facility] CO2 28 24 - 31 mEq/L [facility] Anion gap 13@ANIO 7 - 15 mEq/L [facility] BUN 12 8 - 23 mg/dL [facility] Creatinine 0.89 0.50 - 0.90 mg/dL [facility] Glucose 112 (H) 65 - 99 mg/dL [facility] Calcium 8.5 (L) 8.8 - 10.2 mg/dL [facility] Specimen Plasma specimen Performing Organization Address [facility] Cent[facility]ode Phone Number [facility] DEPARTMENT OF PATHOLOGY AND [address] [place] [address] Us duplex venous lower extremity (03/01/2018 11:47 AM [facility]) Specimen Narrative Performed At [facility] Lower Extremity Venous Report [address] [place] [address] Pat.Name:FLOR ELVA David Pat.ID:[id number] .Date: 03/01/2018Refer.MD:TOBIAS BLANCO MD Exam Time: 11:16:00 AM Study Type:LE Venous Height:59inDOBAge: 1930,87Y Sex: FEMALESonogrphr: Kevin Barry RDMS, RVT Pat. Stat.:Inpatient Room:[address] TapeVol: , CPT - 4: 84366 Echo Event ID:[id number] Order ID:[id number] Reason for Study:Lower extremity swelling. History of [...] Radiology Results In - 03/01/2018 4:41 PM [facility] Vascular Ultrasound Laboratory Lower Extremity Venous Report [address] [place] [address] Pat.Name: ELVA FLOR Pat.ID: [id number] .Date: 03/01/2018 Refer.MD: TOBIAS BLANCO MD Exam Time: 11:16:00 AM Study Type:LE Venous Height: 59in Age: 3 1930,87Y Sex: FEMALE Sonogrphr: Kevin Barry RDMS, RVT Pat. Stat.:Inpatient Room: [address] Tape Vol: , CPT - 4: 52986 Echo Event ID:[id number] Order ID: [id number] Reason for Study:Lower extremity swelling. History of [...] RPVI Performing Organization Address City/State/Zipcode Phone Number [facility] [address] [place] [address] Echocardiogram complete w contrast and 3D if needed (03/01/2018 7:35 AM [facility]) Specimen Narrative Performed At [facility] Echocardiography Report [address] [place] [address] Pat.Name:ELVA FLOR Pat.ID:[id number] .Date: 03/01/2018Ref:TOBIAS BLANCO MD Exam Time: 7:07:00 AMStudy Type:Routine Echo Height:59.02in Weight:120lb BSA: 1.49 m2 DOBAge:1930,87Y Sex: FEMALEBP:140/65 HR:78 bpmSonogrphr: Michell Couch RDCS Pat. Stat.:Inpatient Room:[facility] Study Status:Final Echo Event ID:[id number] Order ID:[id number] Reason for Study:Shortness of breath Procedures:2D Echo, [...] RAPof 5 mmHg. MEASUREMENTS: 2D Parasternal Long [place] LA Ds3.2 cmLVPWd1 cm LVOT 1.8 cmAo An1.8 cm LVIDd3.9 cmIndex2.6 cm/m Ao Rtd 3 cm Index2 cm/m LVIDs2.1 cmLV Hxmy655 g(87-129) LV%fs 45.5 % LVM Index 86.6 g/m2 IVSd 1.1 cmRWT0.5 LA Sng Plane LA Area 15.4 cm2(8.8-23.4) LA Vol39.3 ml Index26.4 ml/m LA LngAx 5.2 cm RA Sng Plane RA Area 12.6 cm2(8.3-19.5) RA Vol27.5 ml Index18.4 ml/m RA LngAx 5.1 cm DOPPLER LVOT Stroke Vol LVOT 1.8 cmLVOT CO5.2 l/min LVOT TVI31.5 cmLVOT CI3.5 l/m/m2 LVOT Tm343 vcstQJ15 bpm LVOT SV 80.1 ml Signed 03/01/2018 02:33 PM Lucho Abdullahi M.D. Procedure Note Interface, Radiology Results In - 03/01/2018 2:34 PM [facility] Echocardiography Report [address] [place] [address] Pat.Name: ELVA FLOR Pat.ID: [id number] .Date: 03/01/2018 Refer.MD: TOBIAS BLANCO MD Exam Time: 7:07:00 AM Study Type:Routine Echo Height: 59.02in Weight: 120lb BSA: 1.49 m2 Age: 2 1930,87Y Sex: FEMALE BP: 140/65 HR: 78 bpm Sonogrphr: Michell Couch RDCS Pat. Stat.:Inpatient Room: [facility] Study Status:Final Echo Event ID:[id number] Order ID: [id number] Reason for Study:Shortness of breath Procedures:2D Echo, [...] of 5 mmHg. MEASUREMENTS: 2D Parasternal Long [place] LA Ds 3.2 cm LVPWd 1 cm [...] PM Lucho Abdullahi M.D. Performing Organization Address City/[facility] Centercode Phone Number [facility] [address] [place] [address] Phosphorus level (03/01/2018 4:00 AM [facility])Only the most recent of2 resultswithin the time period is included. Phosphorus 4.0 2.4 - 4.5 mg/dL [facility] Specimen Plasma specimen Performing Organization Address [facility] Centercopr Phone Number [facility] DEPARTMENT OF PATHOLOGY AND [address] [place] [phone] [place] [address] Magnesium level (03/01/2018 4:00 AM [facility])Only the most recent of2 resultswithin the time period is included. Magnesium 1.9 1.6 - 2.4 mg/dL [facility] Specimen Plasma specimen Performing Organization Address [facility] Phone Number [facility] DEPARTMENT OF PATHOLOGY AND [address] [place] [address] [place] [address] Ionized calcium (03/01/2018 4:00 AM [facility])Only the most recent of2 resultswithin the time period is included. pH 7.53 [facility] Ionized calcium 1.04 (L) 1.11 - 1.32 [facility] mmol/L [facility] Specimen Plasma specimen Performing Organization Address [facility] Phone Number [facility] DEPARTMENT OF PATHOLOGY AND [address] [place] [address] [place] [address] Angiogram Pe Chest (02/28/2018 10:59 PM [facility]) Specimen Narrative Performed At EXAMINATION: [facility] CT [...] IMPRESSION: No evidence of pulmonary embolus. [id number] Procedure Note Interface, Radiology Results Incoming - 02/28/2018 11:31 PM [facility] EXAMINATION: CT ANGIOGRAM PE CHEST CLINICAL HISTORY: [...] identified. IMPRESSION: No evidence of pulmonary embolus. [facility]-[id number] Performing Organization Address City/State/Zipcode Phone Number [facility] [address] [place] [address] CT Abdomen Pelvis Wo Contrast (02/28/2018 10:59 PM [facility]) Specimen Narrative Performed At Examination:CT ABDOMEN PELVIS WO CONTRAST [facility] Clinical History: Shortness of breath Comparison: None. [...] abnormality identified in the abdomen or pelvis. [facility]-[id number] Procedure Note Interface, Radiology Results Incoming - 02/28/2018 11:35 PM [facility] Examination: CT ABDOMEN PELVIS WO CONTRAST Clinical [...] abnormality identified in the abdomen or pelvis. [facility]-[id number] Performing Organization Address City/State/Zipcode Phone Number [facility] [address] [place] [address] Comprehensive metabolic panel (02/28/2018 7:46 PM [facility]) Sodium 137 135 - 148 [facility] mEq/L [facility] Potassium 3.9 3.5 - 5.0 [facility] mEq/L [facility] Chloride 99 98 - 112 mEq/L [facility] CO2 26 24 - 31 mEq/L [facility] Anion gap 12@ANIO 7 - 15 mEq/L [facility] BUN 15 8 - 23 mg/dL [facility] Creatinine 0.84 0.50 - 0.90 [facility] mg/dL HOSPITAL Glucose 85 65 - 99 mg/dL [facility] Calcium 8.9 8.8 - 10.2 [facility] mg/dL [facility] Protein 6.2 (L) 6.3 - 8.3 g/dL [facility] Comment: HOSPITAL 4.6-7.0 g/dL 1 week 4.4-7.6 g/dL 7 months-1year5.1-7.3 g/dL 1-2 years5.6-7.5 g/dL >3 years6.0-8.0 g/dL 18-150 6.3-8.3 g/dL Albumin 3.1 (L) 3.5 - 5.0 g/dL [facility] A/G ratio 1.0 0.7 - 3.8 [facility] Alkaline phosphatase 62 35 - 104 U/L [facility] AST 27 10 - 35 U/L [facility] ALT 26 5 - 50 U/L [facility] Total bilirubin 0.8 0.0 - 1.2 [facility] mg/dL [facility] Specimen Plasma specimen Performing Organization Address City/State/Zipcode Phone Number [facility] DEPARTMENT OF PATHOLOGY AND [address] [place] [address] Prothrombin time with INR (02/28/2018 7:05 PM [facility]) Prothrombin time 14.0 11.5 - 14.5 [facility] INR 1.1 [place] Comment: [facility] International Normalized Ratio (INR) is a therapeutic HOSPITAL monitoring tool for patients who are stable on oral anticoagulant therapy. An INR of 2.0-3.0 is suggested for deep vein thrombosis/pulmonary embolism. Specimen Blood Performing Organization Address City/[facility] Centercode Phone Number [facility] DEPARTMENT OF PATHOLOGY AND [address] [place] [phone] XR Chest 1 Vw Portable (02/28/2018 6:44 PM [facility]) Specimen Narrative Performed At EXAMINATION:XR CHEST 1 VW PORTABLE [facility] CLINICAL HISTORY:Shortness of breath COMPARISON:04/12/2017 IMPRESSION: Chronic appearing interstitial lung markings. No consolidations, effusions, or pneumothorax. Calcified granuloma is seen of the right lung base. Cardiomediastinal silhouette is within normal limits. A device projects over the left heart. No acute osseous abnormalities. [facility]-[id number] Procedure Note Interface, Radiology Results Incoming - 02/28/2018 6:58 PM [facility] EXAMINATION: XR CHEST 1 VW PORTABLE CLINICAL HISTORY: Shortness of breath COMPARISON: 04/12/2017 IMPRESSION: Chronic appearing interstitial lung markings. No consolidations, effusions, or pneumothorax. Calcified granuloma is seen of the right lung base. Cardiomediastinal silhouette is within normal limits. A device projects over the left heart. No acute osseous abnormalities. [facility]-[id number] Performing Organization Address City/[facility]/Zipcode Phone Number [facility] [address] [place] [address] Type and screen (02/28/2018 6:20 PM [facility]) ABO grouping A [facility] Rh type POS [facility] Antibody screen (gel) NEG [facility] Specimen Blood Performing Organization Address City/State/Zipcode Phone Number [facility] DEPARTMENT OF PATHOLOGY AND [address] [place] [address] GENOMIC MEDICINE [facility] [address] [place] [address] ECG 12 lead (02/28/2018 5:57 PM [facility]) Ventricular rate 60 [facility] Atrial rate 60 [facility] VT interval 128 [facility] QRSD interval 70 [facility] QT interval 404 [facility] QTC interval 404 [facility] MUSE P axis 1 66 [facility] QRS axis 1 43 [facility] T wave axis 61 [facility] EKG impression Normal sinus rhythm-Possible Left atrial enlargement- Borderline ECG-In automated comparison with ECG of 13-APR-2017 04:43,-Vent. rate has decreased BY52 BPM-Nonspecific T wave abnormality no longer [facility] MUSE evident in Inferior leads- Specimen Narrative Performed At Performing Organization Address [facility] Centercode Phone Number [facility] MUSE [address] [place] [address] after 09/17/2017 (Home) [address] [place] [address] Advance Directives Patient has advance care planning documents on file. For more information, please contact:[address] [address]
--- OUTSIDE RECORDS SUMMARY | 2018-09-18 12:51 | XMS REPORT ---
:1930 Author Organization [facility] Address [address] [place] [address] [address] [place] [address] Care Team Providers Name Role Phone KIM MCKEON Unavailable Unavailable OTRICARDO ALMONTE Unavailable Unavailable Problems This patient has no known problems. Allergies, Adverse Reactions, Alerts This patient has no known allergies or adverse reactions. Medications This patient has no known medications. Results Test Description Test Time Test Comments Text Results Atomic Results Result Comments TISSUE EXAM 2017-09-20 16:22:00 Surgical Pathology Report Case: [id number] Authorizing Provider: Misha Calloway MD Collected: 09/16/2017 1538 Ordering Location: [address] Received: 09/19/2017 0820 Service Pathologist: Larry Cohn MD Specimen: Polyp, Colon - Rectosigmoid, POLYP TAKEN BY HOT SNARE RECTO-SIGMOID, POLYPECTOMY- TUBULAR ADENOMA- CAUTERIZED EDGE, NEGATIVE FOR ADENOMATOUS CHANGE Signing Pathologist Direct Phone Line: [phone] signed by Larry Cohn MD on 09/20/2017 at 4:22 [id number] bleedRectosigmoid colon polypThe specimen is received in [...] Value Reference Range Comments MAGNESIUM (BEAKER) (test gkox=356) 1.9 mg/dL 1.6-2.6 BASIC METABOLIC [id number] 07:32:00 Test Item Value Reference Range Comments SODIUM (BEAKER) (test 138 meq/L 136-145 xegq=271) POTASSIUM (BEAKER) (test 4.2 meq/L 3.5-5.1 bnoy=738) CHLORIDE (BEAKER) (test 106 meq/L 98-107 ihmt=560) CO2 (BEAKER) (test 25 meq/L 22-29 arzu=562) BLOOD UREA NITROGEN 6 mg/dL 7-21 (BEAKER) (test tgoq=623) CREATININE (BEAKER) (test 0.66 mg/dL 0.57-1.25 nbqu=508) GLUCOSE RANDOM (BEAKER) 76 mg/dL 70-105 (test hsnb=293) CALCIUM (BEAKER) (test 8.4 mg/dL 8.4-10.2 ecca=170) EGFR (BEAKER) (test 85 mL/min/1.73 sq m ESTIMATED GFR IS NOT nodf=7407) ACCURATE CREATININE CLEARANCE IN PREDICTING GLOMERULAR FILTRATION RATE. ESTIMATED GFR IS NOT APPLICABLE FOR DIALYSIS PATIENTS. [id number] 06:42:00 Test Item Value Reference Range Comments PROTIME (BEAKER) (test ouai=040) 20.8 seconds 11.7-14.7 INR (BEAKER) (test ghdq=489) 1.8 <=5.9 PARTIAL THROMBOPLASTIN TIME (BEAKER) (test 36.1 seconds 22.5-36.0 srra=836) RECOMMENDED COUMADIN/WARFARIN INR THERAPY RANGESSTANDARD DOSE: 2.0 - 3.0 Includes: PROPHYLAXIS forvenous thrombosis, systemic embolization; TREATMENT for venous thrombosis and/or pulmonary embolus.HIGH RISK: Target INR is 2.5-3.5 for patients with mechanical heart valves.CBC W/PLT COUNT & AUTO [id number] 06:41:00 Test Item Value Reference Range Comments WHITE BLOOD CELL COUNT (BEAKER) (test lcrn=946) 5.5 K/ L 3.5-10.5 RED BLOOD CELL COUNT (BEAKER) (test ayfw=580) 3.52 M/ L 3.93-5.22 HEMOGLOBIN (BEAKER) (test zjxs=140) 10.4 GM/DL 11.2-15.7 HEMATOCRIT (BEAKER) (test vmqx=240) 33.1 % 34.1-44.9 MEAN CORPUSCULAR VOLUME (BEAKER) (test kddo=366) 94.0 fL 79.4-94.8 MEAN CORPUSCULAR HEMOGLOBIN (BEAKER) (test 29.5 pg 25.6-32.2 ychs=980) MEAN CORPUSCULAR HEMOGLOBIN CONC (BEAKER) (test 31.4 GM/DL 32.2-35.5 qhtg=517) RED CELL DISTRIBUTION WIDTH (BEAKER) (test 19.8 % 11.7-14.4 kpci=537) PLATELET COUNT (BEAKER) (test fsbp=378) 240 K/CU MM 150-450 MEAN PLATELET VOLUME (BEAKER) (test phet=423) 8.5 fL 9.4-12.3 NUCLEATED RED BLOOD CELLS (BEAKER) (test 0 /100 WBC 0-0 yitn=493) NEUTROPHILS RELATIVE PERCENT (BEAKER) (test 43 % jpvi=043) LYMPHOCYTES RELATIVE PERCENT (BEAKER) (test 49 % cffa=143) MONOCYTES RELATIVE PERCENT (BEAKER) (test 7 % pnbg=368) EOSINOPHILS RELATIVE PERCENT (BEAKER) (test 1 % wrih=873) BASOPHILS RELATIVE PERCENT (BEAKER) (test 0 % dbjd=349) NEUTROPHILS ABSOLUTE COUNT (BEAKER) (test 2.34 K/ L 1.56-6.13 ceym=168) LYMPHOCYTES ABSOLUTE COUNT (BEAKER) (test 2.68 K/ L 1.18-3.74 oyvs=389) MONOCYTES ABSOLUTE COUNT (BEAKER) (test 0.38 K/ L 0.24-0.36 nyyi=450) EOSINOPHILS ABSOLUTE COUNT (BEAKER) (test 0.05 K/ L 0.04-0.36 zryn=689) BASOPHILS ABSOLUTE COUNT (BEAKER) (test 0.02 K/ L 0.01-0.08 afyt=403) IMMATURE GRANULOCYTES-RELATIVE PERCENT (BEAKER) 0 % 0-1 (test zhca=6490) [id number] 19:07:00 Test Item Value Reference Range Comments MAGNESIUM (BEAKER) (test caff=728) 1.9 mg/dL 1.6-2.6 BASIC METABOLIC [id number] 19:07:00 Test Item Value Reference Range Comments SODIUM (BEAKER) (test 137 meq/L 136-145 xzfa=069) POTASSIUM (BEAKER) (test 3.8 meq/L 3.5-5.1 tzvm=253) CHLORIDE (BEAKER) (test 106 meq/L 98-107 lewr=923) CO2 (BEAKER) (test 23 meq/L 22-29 leab=622) BLOOD UREA NITROGEN 6 mg/dL 7-21 (BEAKER) (test cxfm=164) CREATININE (BEAKER) (test 0.64 mg/dL 0.57-1.25 wbyt=430) GLUCOSE RANDOM (BEAKER) 82 mg/dL 70-105 (test rslr=309) CALCIUM (BEAKER) (test 8.5 mg/dL 8.4-10.2 azpl=616) EGFR (BEAKER) (test 88 mL/min/1.73 sq m ESTIMATED GFR IS NOT dosm=8452) ACCURATE CREATININE CLEARANCE IN PREDICTING GLOMERULAR FILTRATION RATE. ESTIMATED GFR IS NOT APPLICABLE FOR DIALYSIS PATIENTS. CBC (HEMOGRAM ONLY)2017-09-16 18:38:00 Test Item Value Reference Range Comments WHITE BLOOD CELL COUNT (BEAKER) (test tgcj=883) 6.5 K/ L 3.5-10.5 RED BLOOD CELL COUNT (BEAKER) (test rtzl=408) 3.61 M/ L 3.93-5.22 HEMOGLOBIN (BEAKER) (test odht=843) 10.9 GM/DL 11.2-15.7 HEMATOCRIT (BEAKER) (test hntb=400) 33.5 % 34.1-44.9 MEAN CORPUSCULAR VOLUME (BEAKER) (test cpgp=655) 92.8 fL 79.4-94.8 MEAN CORPUSCULAR HEMOGLOBIN (BEAKER) (test 30.2 pg 25.6-32.2 ukqy=970) MEAN CORPUSCULAR HEMOGLOBIN CONC (BEAKER) (test 32.5 GM/DL 32.2-35.5 dahi=816) RED CELL DISTRIBUTION WIDTH (BEAKER) (test 19.8 % 11.7-14.4 xvrg=238) PLATELET COUNT (BEAKER) (test ylvj=000) 239 K/CU MM 150-450 MEAN PLATELET VOLUME (BEAKER) (test gryt=046) 8.7 fL 9.4-12.3 NUCLEATED RED BLOOD CELLS (BEAKER) (test 0 /100 WBC 0-0 othb=556) [id number] 06:56:00 Test Item Value Reference Range Comments PHOSPHORUS (BEAKER) (test llou=883) 2.7 mg/dL 2.3-4.7 [id number] 06:56:00 Test Item Value Reference Range Comments MAGNESIUM (BEAKER) (test xkfs=348) 1.9 mg/dL 1.6-2.6 BASIC METABOLIC [id number] 06:56:00 Test Item Value Reference Range Comments SODIUM (BEAKER) (test 139 meq/L 136-145 omfw=342) POTASSIUM (BEAKER) (test 4.1 meq/L 3.5-5.1 mfvm=740) CHLORIDE (BEAKER) (test 107 meq/L 98-107 xyxi=894) CO2 (BEAKER) (test 26 meq/L 22-29 zvtf=686) BLOOD UREA NITROGEN 11 mg/dL 7-21 (BEAKER) (test mwro=050) CREATININE (BEAKER) (test 0.73 mg/dL 0.57-1.25 sjgx=092) GLUCOSE RANDOM (BEAKER) 107 mg/dL 70-105 (test cmqt=215) CALCIUM (BEAKER) (test 8.5 mg/dL 8.4-10.2 eoky=572) EGFR (BEAKER) (test 76 mL/min/1.73 sq m ESTIMATED GFR IS NOT cyzx=2701) ACCURATE CREATININE CLEARANCE IN PREDICTING GLOMERULAR FILTRATION RATE. ESTIMATED GFR IS NOT APPLICABLE FOR DIALYSIS PATIENTS. HEPATIC FUNCTION [id number] 06:56:00 Test Item Value Reference Range Comments TOTAL PROTEIN (BEAKER) (test epdg=812) 5.2 gm/dL 6.0-8.3 ALBUMIN (BEAKER) (test jtcw=4057) 2.9 g/dL 3.5-5.0 BILIRUBIN TOTAL (BEAKER) (test pjak=449) 0.8 mg/dL 0.2-1.2 BILIRUBIN DIRECT (BEAKER) (test iepc=157) 0.4 mg/dL 0.1-0.5 ALKALINE PHOSPHATASE (BEAKER) (test colc=593) 43 U/L 40-150 AST (SGOT) (BEAKER) (test ufkn=480) 13 U/L 5-34 ALT (SGPT) (BEAKER) (test lsvj=968) 10 U/L 6-55 CALCIUM, [id number] 06:36:00 Test Item Value Reference Range Comments CALCIUM IONIZED (BEAKER) (test ngpv=889) 1.05 mmol/L 1.12-1.27 PH, BLOOD (BEAKER) (test ysle=4796) 7.46 PROTHROMBIN [id number] 06:35:00 Test Item Value Reference Range Comments PROTIME (BEAKER) (test vwdz=270) 14.2 seconds 11.7-14.7 INR (BEAKER) (test pknj=162) 1.1 <=5.9 RECOMMENDED COUMADIN/WARFARIN INR THERAPY RANGESSTANDARD DOSE: 2.0 - 3.0 Includes: PROPHYLAXIS forvenous thrombosis, systemic embolization; TREATMENT for venous thrombosis and/or pulmonary embolus.HIGH RISK: Target INR is 2.5-3.5 for patients with mechanical heart valves.CBC W/PLT COUNT & AUTO [id number] 06:25:00 Test Item Value Reference Range Comments WHITE BLOOD CELL COUNT (BEAKER) (test udlz=931) 9.4 K/ L 3.5-10.5 RED BLOOD CELL COUNT (BEAKER) (test ethm=387) 3.48 M/ L 3.93-5.22 HEMOGLOBIN (BEAKER) (test gnzs=634) 10.0 GM/DL 11.2-15.7 HEMATOCRIT (BEAKER) (test ptvi=275) 31.1 % 34.1-44.9 MEAN CORPUSCULAR VOLUME (BEAKER) (test ccsk=910) 89.4 fL 79.4-94.8 MEAN CORPUSCULAR HEMOGLOBIN (BEAKER) (test 28.7 pg 25.6-32.2 rysl=387) MEAN CORPUSCULAR HEMOGLOBIN CONC (BEAKER) (test 32.2 GM/DL 32.2-35.5 gypp=220) RED CELL DISTRIBUTION WIDTH (BEAKER) (test 18.3 % 11.7-14.4 oneo=267) PLATELET COUNT (BEAKER) (test fsah=222) 234 K/CU MM 150-450 MEAN PLATELET VOLUME (BEAKER) (test abit=846) 8.9 fL 9.4-12.3 NUCLEATED RED BLOOD CELLS (BEAKER) (test 0 /100 WBC 0-0 unuc=018) NEUTROPHILS RELATIVE PERCENT (BEAKER) (test 70 % dzlr=012) LYMPHOCYTES RELATIVE PERCENT (BEAKER) (test 24 % zkzu=164) MONOCYTES RELATIVE PERCENT (BEAKER) (test 5 % dypc=405) EOSINOPHILS RELATIVE PERCENT (BEAKER) (test 0 % buqz=806) BASOPHILS RELATIVE PERCENT (BEAKER) (test 0 % dnus=037) NEUTROPHILS ABSOLUTE COUNT (BEAKER) (test 6.54 K/ L 1.56-6.13 ryio=483) LYMPHOCYTES ABSOLUTE COUNT (BEAKER) (test 2.30 K/ L 1.18-3.74 ebes=271) MONOCYTES ABSOLUTE COUNT (BEAKER) (test 0.50 K/ L 0.24-0.36 lner=501) EOSINOPHILS ABSOLUTE COUNT (BEAKER) (test 0.03 K/ L 0.04-0.36 abgq=996) BASOPHILS ABSOLUTE COUNT (BEAKER) (test 0.02 K/ L 0.01-0.08 knab=334) IMMATURE GRANULOCYTES-RELATIVE PERCENT (BEAKER) 0 % 0-1 (test ptmi=0121) TISSUE [id number] 14:52:00Surgical Pathology Report Case: [id number] Authorizing Provider: Ricardo Wilson MD Collected: 08/02/2017 1715 Ordering Location: 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)- NEGATIVE FOR HIGH GRADE DYSPLASIA OR CARCINOMA- PERIPHERAL MARGINS, NEGATIVE FOR ADENOMATOUS CHANGE Signing Pathologist Direct Phone Line: [phone] signed by Larry Cohn MD on 08/04/2017 at 2:52 [id number] polyp Rectal mass Received in formalin labeled "rectal", description "mass" is a 5.2 x 5.0 cm, pink-durahm, irregular, mucosa-covered fragment of soft tissue excised [...] the diagnostic line.CBC W/PLT COUNT & AUTO [id number] 06:19:00 Test Item Value Reference Range Comments WHITE BLOOD CELL COUNT (BEAKER) (test fqgq=102) 15.6 K/ L 3.5-10.5 RED BLOOD CELL COUNT (BEAKER) (test pnmu=910) 3.50 M/ L 3.93-5.22 HEMOGLOBIN (BEAKER) (test frpw=841) 9.9 GM/DL 11.2-15.7 HEMATOCRIT (BEAKER) (test hzbr=125) 31.4 % 34.1-44.9 MEAN CORPUSCULAR VOLUME (BEAKER) (test togi=885) 89.7 fL 79.4-94.8 MEAN CORPUSCULAR HEMOGLOBIN (BEAKER) (test 28.3 pg 25.6-32.2 tedt=828) MEAN CORPUSCULAR HEMOGLOBIN CONC (BEAKER) (test 31.5 GM/DL 32.2-35.5 blvj=963) RED CELL DISTRIBUTION WIDTH (BEAKER) (test 18.0 % 11.7-14.4 gzvl=444) PLATELET COUNT (BEAKER) (test tttg=401) 223 K/CU MM 150-450 MEAN PLATELET VOLUME (BEAKER) (test gfuy=875) 8.7 fL 9.4-12.3 NUCLEATED RED BLOOD CELLS (BEAKER) (test 0 /100 WBC 0-0 dvup=390) NEUTROPHILS RELATIVE PERCENT (BEAKER) (test 81 % crut=355) LYMPHOCYTES RELATIVE PERCENT (BEAKER) (test 15 % mvco=651) MONOCYTES RELATIVE PERCENT (BEAKER) (test 4 % jdbq=935) EOSINOPHILS RELATIVE PERCENT (BEAKER) (test 0 % obza=488) BASOPHILS RELATIVE PERCENT (BEAKER) (test 0 % slin=299) NEUTROPHILS ABSOLUTE COUNT (BEAKER) (test 12.56 K/ L 1.56-6.13 suca=806) LYMPHOCYTES ABSOLUTE COUNT (BEAKER) (test 2.36 K/ L 1.18-3.74 uoaz=082) MONOCYTES ABSOLUTE COUNT (BEAKER) (test 0.56 K/ L 0.24-0.36 buys=983) EOSINOPHILS ABSOLUTE COUNT (BEAKER) (test 0.03 K/ L 0.04-0.36 wrty=048) BASOPHILS ABSOLUTE COUNT (BEAKER) (test 0.02 K/ L 0.01-0.08 sgfa=981) IMMATURE GRANULOCYTES-RELATIVE PERCENT (BEAKER) 0 % 0-1 (test lztp=9116) HEPATIC FUNCTION [id number] 06:15:00 Test Item Value Reference Range Comments TOTAL PROTEIN (BEAKER) (test exys=462) 4.9 gm/dL 6.0-8.3 ALBUMIN (BEAKER) (test fhpb=0109) 2.8 g/dL 3.5-5.0 BILIRUBIN TOTAL (BEAKER) (test fziw=975) 1.1 mg/dL 0.2-1.2 BILIRUBIN DIRECT (BEAKER) (test upcj=050) 0.5 mg/dL 0.1-0.5 ALKALINE PHOSPHATASE (BEAKER) (test dodc=856) 42 U/L 40-150 AST (SGOT) (BEAKER) (test axot=739) 15 U/L 5-34 ALT (SGPT) (BEAKER) (test thhx=850) 12 U/L 6-55 BASIC METABOLIC [id number] 06:15:00 Test Item Value Reference Range Comments SODIUM (BEAKER) (test 139 meq/L 136-145 szgg=443) POTASSIUM (BEAKER) (test 4.6 meq/L 3.5-5.1 dbyf=397) CHLORIDE (BEAKER) (test 108 meq/L 98-107 muqz=693) CO2 (BEAKER) (test 25 meq/L 22-29 rqzt=597) BLOOD UREA NITROGEN 13 mg/dL 7-21 (BEAKER) (test zkiw=933) CREATININE (BEAKER) (test 0.73 mg/dL 0.57-1.25 dhui=515) GLUCOSE RANDOM (BEAKER) 115 mg/dL 70-105 (test eilm=005) CALCIUM (BEAKER) (test 8.5 mg/dL 8.4-10.2 auvz=855) EGFR (BEAKER) (test 76 mL/min/1.73 sq m ESTIMATED GFR IS NOT gfzu=5179) ACCURATE CREATININE CLEARANCE IN PREDICTING GLOMERULAR FILTRATION RATE. ESTIMATED GFR IS NOT APPLICABLE FOR DIALYSIS PATIENTS. PROTHROMBIN [id number] 05:59:00 Test Item Value Reference Range Comments PROTIME (BEAKER) (test oszz=884) 14.6 seconds 11.7-14.7 INR (BEAKER) (test gpff=517) 1.1 <=5.9 RECOMMENDED COUMADIN/WARFARIN INR THERAPY RANGESSTANDARD DOSE: 2.0 - 3.0 Includes: PROPHYLAXIS forvenous thrombosis, systemic embolization; TREATMENT for venous thrombosis and/or pulmonary embolus.HIGH RISK: Target INR is 2.5-3.5 for patients with mechanical heart valves.URINALYSIS W/ [id number] 14 :53:00 Test Item Value Reference Range Comments COLOR (BEAKER) (test gmnd=614) Yellow CLARITY (BEAKER) (test jumq=867) Clear SPECIFIC GRAVITY UA (BEAKER) (test jrhk=602) 1.010 1.001-1.035 PH UA (BEAKER) (test yjid=706) 5.5 5.0-8.0 PROTEIN UA (BEAKER) (test lzmn=169) Negative Negative GLUCOSE UA (BEAKER) (test fszw=124) Negative Negative KETONES UA (BEAKER) (test imle=222) Trace Negative BILIRUBIN UA (BEAKER) (test edpr=451) Negative Negative BLOOD UA (BEAKER) (test mfsu=718) Negative Negative NITRITE UA (BEAKER) (test kurj=102) Negative Negative LEUKOCYTE ESTERASE UA (BEAKER) (test lseb=529) Negative Negative UROBILINOGEN UA (BEAKER) (test uxaq=680) 0.2 mg/dL 0.2-1.0 RBC UA (BEAKER) (test dbwk=782) 1 /HPF WBC UA (BEAKER) (test njct=050) 3 /HPF MUCUS (BEAKER) (test dunx=4414) Few SQUAMOUS EPITHELIAL (BEAKER) (test ioiq=380) < /HPF HYALINE CASTS (BEAKER) (test joxw=119) 2 /LPF SOURCE(BEAKER) (test icpc=0285) HEPATIC FUNCTION [id number] 06:31:00 Test Item Value Reference Range Comments TOTAL PROTEIN (BEAKER) (test zitb=129) 5.2 gm/dL 6.0-8.3 ALBUMIN (BEAKER) (test wfhs=1063) 3.1 g/dL 3.5-5.0 BILIRUBIN TOTAL (BEAKER) (test gpqv=297) 1.1 mg/dL 0.2-1.2 BILIRUBIN DIRECT (BEAKER) (test efyj=055) 0.5 mg/dL 0.1-0.5 ALKALINE PHOSPHATASE (BEAKER) (test atgv=831) 47 U/L 40-150 AST (SGOT) (BEAKER) (test btry=549) 20 U/L 5-34 ALT (SGPT) (BEAKER) (test cedc=863) 15 U/L 6-55 BASIC METABOLIC [id number] 06:31:00 Test Item Value Reference Range Comments SODIUM (BEAKER) (test 139 meq/L 136-145 ybit=557) POTASSIUM (BEAKER) (test 2.7 meq/L 3.5-5.1 bwzn=466) CHLORIDE (BEAKER) (test 106 meq/L 98-107 wjwn=856) CO2 (BEAKER) (test 24 meq/L 22-29 tpkr=201) BLOOD UREA NITROGEN 7 mg/dL 7-21 (BEAKER) (test bioi=469) CREATININE (BEAKER) (test 0.61 mg/dL 0.57-1.25 txkl=113) GLUCOSE RANDOM (BEAKER) 88 mg/dL 70-105 (test pluc=836) CALCIUM (BEAKER) (test 8.4 mg/dL 8.4-10.2 qtzc=121) EGFR (BEAKER) (test 93 mL/min/1.73 sq m ESTIMATED GFR IS NOT dxle=3499) ACCURATE CREATININE CLEARANCE IN PREDICTING GLOMERULAR FILTRATION RATE. ESTIMATED GFR IS NOT APPLICABLE FOR DIALYSIS PATIENTS. BASIC METABOLIC [id number] 06:30:00 Test Item Value Reference Range Comments SODIUM (BEAKER) (test 136 meq/L 136-145 kuog=084) POTASSIUM (BEAKER) (test 3.0 meq/L 3.5-5.1 Specimen slightly jqqw=385) hemolyzed CHLORIDE (BEAKER) (test 106 meq/L 98-107 eoza=190) CO2 (BEAKER) (test 20 meq/L 22-29 hffi=701) BLOOD UREA NITROGEN 7 mg/dL 7-21 (BEAKER) (test qkrw=625) CREATININE (BEAKER) (test 0.61 mg/dL 0.57-1.25 Specimen slightly qwcf=288) hemolyzed GLUCOSE RANDOM (BEAKER) 81 mg/dL 70-105 (test pqek=170) CALCIUM (BEAKER) (test 8.2 mg/dL 8.4-10.2 gyvf=061) EGFR (BEAKER) (test 93 mL/min/1.73 sq m ESTIMATED GFR IS NOT ngeu=5453) ACCURATE CREATININE CLEARANCE IN PREDICTING GLOMERULAR FILTRATION RATE. ESTIMATED GFR IS NOT APPLICABLE FOR DIALYSIS PATIENTS. CBC W/PLT COUNT & AUTO [id number] 06:25:00 Test Item Value Reference Range Comments WHITE BLOOD CELL COUNT (BEAKER) (test qabn=208) 14.6 K/ L 3.5-10.5 RED BLOOD CELL COUNT (BEAKER) (test bqdt=397) 3.75 M/ L 3.93-5.22 HEMOGLOBIN (BEAKER) (test zhrt=999) 10.5 GM/DL 11.2-15.7 HEMATOCRIT (BEAKER) (test cahd=047) 33.1 % 34.1-44.9 MEAN CORPUSCULAR VOLUME (BEAKER) (test awcw=416) 88.3 fL 79.4-94.8 MEAN CORPUSCULAR HEMOGLOBIN (BEAKER) (test 28.0 pg 25.6-32.2 czow=780) MEAN CORPUSCULAR HEMOGLOBIN CONC (BEAKER) (test 31.7 GM/DL 32.2-35.5 rfrn=070) RED CELL DISTRIBUTION WIDTH (BEAKER) (test 17.5 % 11.7-14.4 ffkz=489) PLATELET COUNT (BEAKER) (test fiwu=686) 246 K/CU MM 150-450 MEAN PLATELET VOLUME (BEAKER) (test zkvx=926) 8.9 fL 9.4-12.3 NUCLEATED RED BLOOD CELLS (BEAKER) (test 0 /100 WBC 0-0 ifjh=657) NEUTROPHILS RELATIVE PERCENT (BEAKER) (test 88 % debs=884) LYMPHOCYTES RELATIVE PERCENT (BEAKER) (test 5 % qykm=064) MONOCYTES RELATIVE PERCENT (BEAKER) (test 6 % rndz=596) EOSINOPHILS RELATIVE PERCENT (BEAKER) (test 0 % potn=637) BASOPHILS RELATIVE PERCENT (BEAKER) (test 0 % zbtz=059) NEUTROPHILS ABSOLUTE COUNT (BEAKER) (test 12.85 K/ L 1.56-6.13 myxp=394) LYMPHOCYTES ABSOLUTE COUNT (BEAKER) (test 0.71 K/ L 1.18-3.74 iygo=263) MONOCYTES ABSOLUTE COUNT (BEAKER) (test 0.94 K/ L 0.24-0.36 ffvw=298) EOSINOPHILS ABSOLUTE COUNT (BEAKER) (test 0.00 K/ L 0.04-0.36 odkk=225) BASOPHILS ABSOLUTE COUNT (BEAKER) (test 0.02 K/ L 0.01-0.08 kwqd=205) IMMATURE GRANULOCYTES-RELATIVE PERCENT (BEAKER) 1 % 0-1 (test uikc=0450) PROTHROMBIN [id number] 06:21:00 Test Item Value Reference Range Comments PROTIME (BEAKER) (test tirv=905) 13.5 seconds 11.7-14.7 INR (BEAKER) (test uelc=060) 1.0 <=5.9 RECOMMENDED COUMADIN/WARFARIN INR THERAPY RANGESSTANDARD DOSE: 2.0 - 3.0 Includes: PROPHYLAXIS forvenous thrombosis, systemic embolization; TREATMENT for venous thrombosis and/or pulmonary embolus.HIGH RISK: Target INR is 2.5-3.5 for patients with mechanical heart valves.
--- OUTSIDE RECORDS SUMMARY | 2018-09-18 12:51 | XMS REPORT | Clinical Summary ---
:1930 Author Organization [facility] Address [address] [place] [address] Care Team Providers Name Role Phone Hasmukh [...] Start Date End Date Status PARoxetine (PAXIL) 40 Take 40 mg by 0 Active MG tablet mouth daily with dinner . predniSONE (DELTASONE) Take 5 mg by 0 Active 5 MG tablet mouth 2 (two) times daily . cycloSPORINE (RESTASIS) 1 drop 2 (two) 0 Active 0.05 % ophthalmic times daily. emulsion budesonide-formoterol Inhale 2 puffs by 0 Active (SYMBICORT) 160-4.5 mouth via inhaler mcg/actuation inhaler 2 (two) times daily. albuterol HFA (VENTOLIN Inhale 1 puff by 0 Active HFA) 90 mcg/actuation mouth via inhaler inhaler every 6 (six) hours as needed for Wheezing. umeclidinium (INCRUSE Inhale 1 puff by 0 Active ELLIPTA) 62.5 mouth via inhaler mcg/actuation DsDv daily . powder for inhalation furosemide (LASIX) 20 Take 20 mg by 0 Active MG tablet mouth daily . spironolactone Take 25 mg by 0 Active (ALDACTONE) 25 MG mouth 2 (two) tablet times daily. ALPRAZolam (XANAX) 0.25 Take 0.25 mg by 0 Active MG tablet mouth daily with breakfast . levothyroxine Take 50 mcg by 0 Active (SYNTHROID, LEVOTHROID) mouth Every 50 MCG tablet morning on an empty stomach. roflumilast (DALIRESP) Take by mouth 0 Active 500 mcg Tab tablet daily. IRON FUM/FOLIC Take by mouth. 0 Active ACID/MV,MIN 15 (HEMOCYTE-PLUS ORAL) tiotropium (SPIRIVA) 18 Inhale 18 mcg by 0 Active mcg inhalation capsule mouth via inhaler daily. vancomycin (VANCOCIN) Take 125 mg by 0 Active 125 MG capsule mouth 3 (three) times daily with meals. rivaroxaban (XARELTO) Take by mouth 0 Active 20 mg Tab tablet daily with dinner. Active Problems Problem Noted Date C. difficile [...] Date Type Specialty Care Team Description 09/16/2017 - Hospital Encounter Cardiology Rhea Bedoya Bilateral pulmonary embolism (HCC); 09/17/2017 MD Yamila C. difficile colitis; Martha Cruz Chronic obstructive pulmonary disease, unspecified COPD type (HCC); MD Kulwant Gastroesophageal reflux disease without esophagitis; Hypothyroidism, unspecified type; Deep vein thrombosis (DVT) of left lower extremity, unspecified chronicity, unspecified vein (HCC); Rectal bleeding; Rectal polyp; Normochromic anemia after 09/17/2017 Social History Tobacco Use Types Packs/Day Years [...] file Procedures Procedure Name Priority Date/Time Associated Comments Diagnosis RHYTHM STRIP - SCAN 02/09/2018 2:43 PM QUALITY ASSURANCE MONITOR RHYTHM STRIP - SCAN 09/20/2017 12:50 PM CDT REPORT OF PROCEDURE - 09/19/2017 1:13 ENDOSCOPY URL PM CDT TRANSFUSION SERVICE 09/17/2017 [...] the results section. BASIC METABOLIC PANEL Routine 09/17/2017 5:35 Results for this (7) AM CDT procedure are in the results section. after 09/17/2017 Results RHYTHM STRIP - SCAN (02/09/2018 2:43 PM QUALITY ASSURANCE MONITOR)Only the most recent of2 resultswithin the time period is included. Narrative Performed At REPORT OF PROCEDURE - ENDOSCOPY URL (09/19/2017 1:13 PM CDT) Narrative Performed At TRANSFUSION SERVICE REPORT - SCAN (09/17/2017 6:00 PM CDT) Narrative Performed At PT/aPTT (09/17/2017 5:35 AM CDT) Protime 20.8 (H) 11.7 - 14.7 seconds [facility] INR 1.8 <=5.9 [facility] PTT 36.1 (H) 22.5 - 36.0 seconds [facility] Specimen Blood Narrative Performed At [facility] RECOMMENDED COUMADIN/WARFARIN INR THERAPY RANGES STANDARD DOSE: 2.0 - 3.0 Includes: PROPHYLAXIS for venous thrombosis, systemic embolization; TREATMENT for venous thrombosis and/or pulmonary embolus. HIGH RISK: Target INR is 2.5-3.5 for patients with mechanical heart valves. Performing Organization Address City/State/Zipcode Phone Number [facility] [address] [place] [address] [phone] CENTER CBC with platelet count + automated diff (09/17/2017 5:35 AM CDT) WBC 5.5 3.5 - 10.5 K/L [facility] RBC 3.52 (L) 3.93 - 5.22 M/L [facility] Hemoglobin 10.4 (L) 11.2 - 15.7 GM/DL [facility] Hematocrit 33.1 (L) 34.1 - 44.9 % [facility] MCV 94.0 79.4 - 94.8 fL [facility] MCH 29.5 25.6 - 32.2 pg [facility] MCHC 31.4 (L) 32.2 - 35.5 GM/DL [facility] RDW 19.8 (H) 11.7 - 14.4 % [facility] Platelets 240 150 - 450 K/CU MM [facility] MPV 8.5 (L) 9.4 - 12.3 fL [facility] nRBC 0 0 - 0 /100 WBC [facility] % Neutros 43 % [facility] % Lymphs 49 % [facility] % Monos 7 % [facility] % Eos 1 % [facility] % Baso 0 % [facility] # Neutros 2.34 1.56 - 6.13 K/L [facility] # Lymphs 2.68 1.18 - 3.74 K/L [facility] # Monos 0.38 (H) 0.24 - 0.36 K/L [facility] # Eos 0.05 0.04 - 0.36 K/L [facility] # Baso 0.02 0.01 - 0.08 K/L [facility] Immature Granulocytes-Relative 0 0 - 1 % [facility] Specimen Blood Performing Organization Address City/State/Zipcode Phone Number [address] [address] [place] Magnesium (09/17/2017 5:35 AM CDT) Magnesium 1.9 1.6 - 2.6 mg/dL [facility] Specimen Blood Performing Organization Address City/[facility]/Zipcode Phone Number [address] [address] [phone] [place] Basic metabolic panel (09/17/2017 5:35 AM CDT) Sodium 138 136 - 145 meq/L [facility] Potassium 4.2 3.5 - 5.1 meq/L [facility] Chloride 106 98 - 107 meq/L [facility] CO2 25 22 - 29 meq/L [facility] BUN 6 (L) 7 - 21 mg/dL [facility] Creatinine 0.66 0.57 - 1.25 mg/dL [facility] Glucose 76 70 - 105 mg/dL [facility] Calcium 8.4 8.4 - 10.2 mg/dL [facility] EGFR 85Comment: ESTIMATED GFR IS mL/min/1.73 sq m [facility] NOT ACCURATE CREATININE [facility] CLEARANCE IN PREDICTING GLOMERULAR FILTRATION RATE. ESTIMATED GFR IS NOT APPLICABLE FOR DIALYSIS PATIENTS. Specimen Blood Performing Organization Address City/State/Zipcode Phone Number [facility] [address] [place] [address] CENTER after 09/17/2017 Insurance Payer Benefit Plan / Group Subscriber ID Type Phone Address [employer] - MEDICARE UNITED MEDICARE HMO xxxxxxxxx MGD CARE [facility] MGD [facility] PPO OPTIONS xxxxxxxxx PPO Advance Directives For more information, please contact:[address] [phone] Code Status Date Activated Date Inactivated Comments [...]
[2018-09-18 15:02] LABS: Absolute Lymphocytes (CBC) 1.4 K/uL (0.7-4.9); Basophils % 0.3 % (0-1.3); Eosinophils % 1.2 % (0-4.4); Hematocrit 39.2 % (36.0-45.0); Lymphocytes % 14.7 % (15.3-44.8); MPV 6.5 fL (7.6-11.3); Monocytes % 7.3 % (3.3-12.3); RBC Red Blood Cell Count 4.04 M/uL (3.86-4.86)
[2018-09-18] MEDS ORDERED: FAMOTIDINE 20 MG/2 ML VIAL IV ONE (15:09)
[2018-09-18] MEDS ORDERED: ONDANSETRON 4 MG/2 ML VIAL ONE (15:09)
[2018-09-18 15:19] LABS: Albumin 3.2 g/dL (3.4-5.0); Bilirubin Direct 0.4 mg/dL (0-0.2); Bilirubin Total 1.4 mg/dL (0.2-1.0); Potassium 3.3 mmol/L (3.5-5.1); Protein, Total 6.6 g/dL (6.4-8.2)
--- NOTE | 2018-09-18 15:49 | ER ---
Nurse's Notes [facility] Name: Elva Jenkins Age: 88 yrs Sex: Female : 1930 Arrival Date: 09/18/2018 Time: 12:49 Bed 17 Private MD: Bharti Pollock C Diagnosis: Dysphagia Presentation: 09/18 12:57 Presenting complaint: Patient states: "I just have no appetite and feel nauseated, and aa5 I keep dry heaving". Reports symptoms began 2-3 days ago. Pt states "I have an esophagus test on the that Dr. Topete ordered". Transition of care: patient was not received from another setting of care. Onset of symptoms was September 2018. Risk Assessment: Do you want to hurt yourself or someone else? Patient reports no desire to harm self or others. Initial Sepsis Screen: Does the patient meet any 2 criteria? No. Patient's initial sepsis screen is negative. Does the patient have a suspected source of infection? No. Patient's initial sepsis screen is negative. Care prior to arrival: None. 12:57 Method Of Arrival: Wheelchair aa5 12:57 Acuity: TAVON 3 aa5 Triage Assessment: 14:11 General: Appears in no apparent distress. comfortable, Behavior is cooperative, bp appropriate for age, anxious. Pain: Denies pain. EENT: No deficits noted. Neuro: No deficits noted. Cardiovascular: Rhythm is sinus rhythm. Respiratory: No deficits noted. GI: Reports intolerance of food, nausea. : No signs and/or symptoms were reported regarding the genitourinary system. Derm: No deficits noted. Musculoskeletal: No deficits noted. 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 - Social history:: Smoking status: Patient/guardian denies using tobacco, never smoked. - Ebola Screening: : No symptoms or risks identified at this time. Screenin:12 Abuse screen: Denies threats or abuse. Denies injuries from another. Nutritional bp screening: No deficits noted. Tuberculosis screening: No symptoms or risk factors identified. Fall Risk None identified. Assessment: 14:11 General: SEE TRIAGE NOTE. GI: Abdomen is non-distended. bp 16:10 Reassessment: PT D/C HOME AMBULATORY WITH ASSOCIATE, DX WITH DYSPHAGIA. bp Vital Signs: 13:00 BP 140 / 73; Pulse 71; Resp 16 S; Temp 98.7(O); Pulse Ox 95% on R/A; Pain 0/10; aa5 14:12 BP 177 / 70; Pulse 61; Resp 16; Pulse Ox 98% ; bp 14:56 BP 173 / 67; Pulse 66; Resp 16; Temp 98.6(O); Pulse Ox 98% on R/A; mh5 15:03 BP 122 / 86; Pulse 67; Resp 16; Pulse Ox 94% ; bp 16:00 BP 136 / 99; Pulse 86; Resp 16; Pulse Ox 97% ; bp ED Course: 12:49 Patient arrived in ED. rg4 12:49 Bharti Pollock MD is Private Physician. rg4 12:58 Triage completed. aa5 12:58 Arm band placed on. aa5 14:05 Ben Pineda, GUME is Primary Nurse. bp 14:09 Yayo Garcia MD is Attending Physician. gs 14:12 Patient has correct armband on for positive identification. Bed in low position. Call bp light in reach. Side rails up X2. Adult w/ patient. 14:55 Warm blanket given. Pulse ox on. NIBP on. 5 14:55 Initial lab(s) drawn, by mi, sent to lab. Inserted saline lock: 22 gauge in right 5 antecubital area, using aseptic technique. Blood collected. 14:55 Basic Metabolic Panel Sent. 5 14:55 CBC with Diff Sent. 5 14:56 Hepatic Function Sent. [facility] 14:56 Lipase Sent. 5 16:10 No provider procedures requiring assistance completed. IV discontinued, intact, bp bleeding controlled, No redness/swelling at site. Pressure dressing applied. Administered Medications: 14:59 Drug: Zofran 4 mg Route: IVP; Site: right antecubital; aj 16:15 Follow up: Response: No adverse reaction bp 14:59 Drug: Pepcid 20 mg Route: IVP; Site: right antecubital; 16:15 Follow up: Response: No adverse reaction bp Outcome: 15:49 Discharge ordered by . jenny 16:11 Discharged to home ambulatory, with friend. bp 16:11 Condition: stable 16:11 Discharge instructions given to patient, Instructed on discharge instructions, follow up and referral plans. Demonstrated understanding of instructions, follow-up care. 16:15 Patient left the ED. bp Signatures: Ashely Del Toro RN RN Eloina Bocanegra RN RN aa5 Tess Madrid Maria 5 Yayo Garcia MD MD gs Peltier, Brian, RN RN bp
--- NOTE | 2018-09-18 15:49 | EDPHYS ---
Physician Documentation [facility] Name: Elva Jenkins Age: 88 yrs Sex: Female : 1930 Arrival Date: 09/18/2018 Time: 12:49 Bed 17 Private MD: Bharti Pollock C ED Physician Yayo Garcia HPI: 09/18 18:16 This 88 yrs old Female presents to ER via Wheelchair with complaints of gs Decreased Appetite, Nausea. 18:16 Onset: The symptoms/episode began/occurred 1 month(s) ago. Possible causes: flare up of gs bowel problem. The symptoms are aggravated by food . Associated signs and symptoms: Pertinent positives: nausea. Severity of symptoms: At their worst the symptoms were moderate in the emergency department the symptoms are unchanged. The patient has experienced similar episodes in the past, multiple times. The patient has been recently seen by a physician: a proposal editor, with similar presenting complaints, SCHEDULED FOR SWALLOW. 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 - Social history:: Smoking status: Patient/guardian denies using tobacco, never smoked. - Ebola Screening: : No symptoms or risks identified at this time. ROS: 18:16 All other systems are negative. gs Exam: 18:16 Head/Face: Normocephalic, atraumatic. Eyes: Pupils equal round and reactive to light, gs extra-ocular motions intact. Lids and lashes normal. Conjunctiva and sclera are non-icteric and not injected. Cornea within normal limits. Periorbital areas with no swelling, redness, or edema. ENT: Nares patent. No nasal discharge, no septal abnormalities noted. Tympanic membranes are normal and external auditory canals are clear. Oropharynx with no redness, swelling, or masses, exudates, or evidence of obstruction, uvula midline. Mucous membranes moist. Neck: Trachea midline, no thyromegaly or masses palpated, and no cervical lymphadenopathy. Supple, full range of motion without nuchal rigidity, or vertebral point tenderness. No Meningismus. Chest/axilla: Normal chest wall appearance and motion. Nontender with no deformity. No lesions are appreciated. Cardiovascular: Regular rate and rhythm with a normal S1 and S2. No gallops, murmurs, or rubs. Normal PMI, no JVD. No pulse deficits. Respiratory: Lungs have equal breath sounds bilaterally, clear to auscultation and percussion. No rales, rhonchi or wheezes noted. No increased work of breathing, no retractions or nasal flaring. Abdomen/GI: Soft, non-tender, with normal bowel sounds. No distension or tympany. No guarding or rebound. No evidence of tenderness throughout. Back: No spinal tenderness. No costovertebral tenderness. Full range of motion. Skin: Warm, dry with normal turgor. Normal color with no rashes, no lesions, and no evidence of cellulitis. MS/ Extremity: Pulses equal, no cyanosis. Neurovascular intact. Full, normal range of motion. Neuro: Awake and alert, GCS 15, oriented to person, place, time, and situation. Cranial nerves II-XII grossly intact. Motor strength 5/5 in all extremities. Sensory grossly intact. Cerebellar exam normal. Normal gait. 18:16 Constitutional: The patient appears alert, awake. Vital Signs: 13:00 BP 140 / 73; Pulse 71; Resp 16 S; Temp 98.7(O); Pulse Ox 95% on R/A; Pain 0/10; aa5 14:12 BP 177 / 70; Pulse 61; Resp 16; Pulse Ox 98% ; bp 14:56 BP 173 / 67; Pulse 66; Resp 16; Temp 98.6(O); Pulse Ox 98% on R/A; mh5 15:03 BP 122 / 86; Pulse 67; Resp 16; Pulse Ox 94% ; bp 16:00 BP 136 / 99; Pulse 86; Resp 16; Pulse Ox 97% ; bp MDM: 14:36 Patient medically screened. 18:16 Differential diagnosis: gastritis, gastroenteritis, esophageal stricture. Data gs reviewed: vital signs, nurses notes, old medical records, lab test result(s). Counseling: I had a detailed discussion with the patient and/or guardian regarding: the historical points, exam findings, and any diagnostic results supporting the discharge/admit diagnosis, the need for outpatient follow up, a proposal editor. Response to treatment: There is no appreciated change of the patient's symptoms at this time, the patient's condition has returned to base line, and as a result, I will discharge patient. 09/18 14:33 Order name: Basic Metabolic Panel; Complete Time: 15:42 09/18 14:33 Order name: CBC with Diff; Complete Time: 15:42 09/18 14:33 Order name: Hepatic Function; Complete Time: 15:42 09/18 14:33 Order name: Lipase; Complete Time: 15:42 09/18 14:33 Order name: IV Saline Lock; Complete Time: 14:50 09/18 14:33 Order name: Labs collected and sent; Complete Time: 14:50 Administered Medications: 14:59 Drug: Zofran 4 mg Route: IVP; Site: right antecubital; aj 16:15 Follow up: Response: No adverse reaction bp 14:59 Drug: Pepcid 20 mg Route: IVP; Site: right antecubital; aj 16:15 Follow up: Response: No adverse reaction bp Disposition: 09/18/18 15:49 Discharged to Home. Impression: Dysphagia. - Condition is Stable. - Discharge Instructions: Dysphagia, Full Liquid Diet. - Medication Reconciliation Form, Thank You Letter, Antibiotic Education, Prescription Opioid Use form. - Follow up: Private Physician; When: 1 - 2 days; Reason: Re-evaluation by your physician. Signatures: Dispatcher [employer] Ashely Abad RN RN Eloina Bocanegra RN RN aa5 Yayo Garcia MD MD gs Peltier, Brian RN RN bp Corrections: (The following items were deleted from the chart) 16:15 15:49 09/18/2018 15:49 Discharged to Home. Impression: Dysphagia. Condition is Stable. bp Forms are Medication Reconciliation Form, Thank You Letter, Antibiotic Education, Prescription Opioid Use. Follow up: Private Physician; When: 1 - 2 days; Reason: Re-evaluation by your physician. gs
[2018-09-18 17:48] VITALS: TEMP 98.6
[2018-09-18 17:51] VITALS: BP 136/99; O2SAT 97
== END 2018-09-18 16:15 | disposition home or self-care (01) ==
LOC: ER 12:47
DX: R13.10 Dysphagia, unspecified (principal); F32.9 Major depressive disorder, single episode, unspecified; J44.9 Chronic obstructive pulmonary disease, unspecified; E78.5 Hyperlipidemia, unspecified; E03.9 Hypothyroidism, unspecified; K21.9 Gastro-esophageal reflux disease without esophagitis; Z88.6 Allergy status to analgesic agent; Z88.8 Allergy status to other drugs, medicaments and biological substances
CPT/HCPCS: 85025; 80048; 36415; 80076; 83690; 96375; 96374; 99284; J2405

== ENCOUNTER 2018-10-10 13:44 | Observation (INO) | payer OTHER ==
--- OUTSIDE RECORDS SUMMARY | 2018-10-10 13:47 | XMS REPORT | Clinical Summary ---
:1930 Author Organization [facility] Address [address] [place] [address] Care Team Providers Name Role Phone Hasmukh [...] travel history available. 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
--- OUTSIDE RECORDS SUMMARY | 2018-10-10 13:47 | XMS REPORT | Clinical Summary ---
:1930 Author Organization [facility] Address [address] [place] [address] Care Team Providers Name Role Phone Asked, [...] Jose Alberto Ayala MD Hiatal hernia after 10/09/2017 Family History Medical History Relation Name Comments [...] Taken Blood Pressure 132/60 03/02/2018 12:02 PM ASSEMBLY ADJUSTER Pulse 78 03/02/2018 12:02 PM ASSEMBLY ADJUSTER Temperature 36.1 C (97 F) 03/02/2018 12:02 PM ASSEMBLY ADJUSTER Respiratory Rate 14 03/02/2018 12:02 PM ASSEMBLY ADJUSTER Oxygen Saturation 93% 03/02/2018 12:02 PM ASSEMBLY ADJUSTER Inhaled Oxygen Concentration - - Weight 51.1 kg (112 lb 9.6 oz) 03/02/2018 5:13 AM ASSEMBLY ADJUSTER Height - - Body Mass Index 22.74 04/12/2017 12:01 PM ASSEMBLY ADJUSTER Plan of Treatment Health Maintenance Due Date Last Done Comments SHINGLES VACCINES (#1) 1981 65+ PNEUMOCOCCAL VACCINE (1 of 2 - PCV13) 1996 INFLUENZA VACCINE 10/12/2018 Implants Implanted Type Area Service Specialist Device Identifier Shelf Expiration Model / Date Serial / Lot Reveal Linq-02/02/2016 Implanted: Qty: 1 on 02/02/2016 Procedures Procedure Name Priority Date/Time Associated Comments Diagnosis ESTIMATED GFR Routine 03/02/2018 3:55 Results for this AM ASSEMBLY ADJUSTER procedure are in the results section. THYROID STIMULATING Routine 03/02/2018 3:55 Results for this HORMONE AM ASSEMBLY ADJUSTER procedure are in the results section. HC COMPLETE BLD COUNT Routine 03/02/2018 3:55 Results for this W/AUTO DIFF AM ASSEMBLY ADJUSTER procedure are in the results section. BASIC METABOLIC PANEL Routine 03/02/2018 3:55 Results for this AM ASSEMBLY ADJUSTER procedure are in the results section. US DUPLEX VENOUS LOWER Routine 03/01/2018 11:47 Results for this EXTREMITY BILATERAL AM ASSEMBLY ADJUSTER procedure are in the results section. ECHOCARDIOGRAM 2D Routine 03/01/2018 7:35 Results for this COMPLETE W MMODE AM ASSEMBLY ADJUSTER procedure are in SPECTRAL COLOR DOPPLER the results (05649) section. CBC WITH PLATELET AND Routine 03/01/2018 4:39 Results for this DIFFERENTIAL AM ASSEMBLY ADJUSTER procedure are in the results section. ESTIMATED GFR Routine 03/01/2018 4:00 Results for this AM ASSEMBLY ADJUSTER procedure are in the results section. PHOSPHORUS LEVEL Routine 03/01/2018 4:00 Results for this AM ASSEMBLY ADJUSTER procedure are in the results section. MAGNESIUM LEVEL Routine 03/01/2018 4:00 Results for this AM ASSEMBLY ADJUSTER procedure are in the results section. IONIZED CALCIUM Routine 03/01/2018 4:00 Results for this AM ASSEMBLY ADJUSTER procedure are in the results section. BASIC METABOLIC PANEL Routine 03/01/2018 4:00 Results for this AM ASSEMBLY ADJUSTER procedure are in the results section. CT ANGIOGRAM PE CHEST Routine 02/28/2018 10:59 Results for this PM ASSEMBLY ADJUSTER procedure are in the results section. CT ABDOMEN PELVIS WO Routine 02/28/2018 10:59 Results for this CONTRAST PM ASSEMBLY ADJUSTER procedure are in the results section. IONIZED CALCIUM Routine 02/28/2018 7:46 Results for this PM ASSEMBLY ADJUSTER procedure are in the results section. ESTIMATED GFR Routine 02/28/2018 7:46 Results for this PM ASSEMBLY ADJUSTER procedure are in the results section. PHOSPHORUS LEVEL Routine 02/28/2018 7:46 Results for this PM ASSEMBLY ADJUSTER procedure are in the results section. COMPREHENSIVE METABOLIC Routine 02/28/2018 7:46 Results for this PANEL PM ASSEMBLY ADJUSTER procedure are in the results section. MAGNESIUM LEVEL Routine 02/28/2018 7:46 Results for this PM ASSEMBLY ADJUSTER procedure are in the results section. HC COMPLETE BLD COUNT Routine 02/28/2018 7:05 Results for this W/AUTO DIFF PM ASSEMBLY ADJUSTER procedure are in the results section. PROTHROMBIN TIME WITH Routine 02/28/2018 7:05 Results for this INR PM ASSEMBLY ADJUSTER procedure are in the results section. XR CHEST 1 VW PORTABLE STAT 02/28/2018 6:44 Results for this PM ASSEMBLY ADJUSTER procedure are in the results section. TYPE AND SCREEN STAT 02/28/2018 6:20 Results for this PM ASSEMBLY ADJUSTER procedure are in the results section. ECG 12-LEAD STAT 02/28/2018 5:57 Results for this PM ASSEMBLY ADJUSTER procedure are in the results section. after 10/09/2017 Results Estimated GFR (03/02/2018 3:55 AM ASSEMBLY ADJUSTER)Only the most recent of3 resultswithin the time period is included. Estimated GFR 58 (A) mL/min/1.73 [facility] Comment: m2 [facility]OSPITAL CatergoryUnitsInterpretation G1 >=90 Normal or high G2 60-89Mildly decreased L0z06-49Bvyuqf to moderately decreased O6e14-78Nrchbhsehr to severely decreased G4 15-29Severely decreased G5 <15Kidney failure The eGFR was calculated using the Chronic Kidney Disease Epidemiology Collaboration (CKD-EPI) equation. Interpretation is based on recommendations of the National Kidney Foundation-Kidney Disease Outcomes Quality Initiative (NKF-KDOQI) published in 2014. Specimen Plasma specimen Performing Organization Address City/[facility]/Zipcode Phone Number [facility] DEPARTMENT OF PATHOLOGY AND [address] [place] [address] GENOMIC MEDICINE [facility] [address] [place] [address] CBC with platelet and differential (03/02/2018 3:55 AM ASSEMBLY ADJUSTER)Only the most recent of3 resultswithin the time period is included. WBC 7.03 4.50 - 11.00 [facility] k/uL HOSPITAL RBC 3.52 (L) 4.20 - 5.50 [facility] m/uL HOSPITAL HGB 11.2 (L) 12.0 - 16.0 [facility] g/dL [facility] HCT 33.5 (L) 37.0 - 47.0 % [facility] MCV 95.2 82.0 - 100.0 [facility] MCH 31.8 27.0 - 34.0 pg [facility] MCHC 33.4 31.0 - 37.0 [facility] g/dL [facility] RDW - SD 49.1 37.0 - 55.0 fL [facility] MPV 8.8 8.8 - 13.2 fL [facility] Platelet count 238 150 - 400 k/uL [facility] Nucleated RBC 0.00 /100 WBC [facility] Neutrophils 64.5 39.0 - 69.0 % [facility] Lymphocytes 28.7 25.0 - 45.0 % [facility] Monocytes 6.0 0.0 - 10.0 % [facility] Eosinophils 0.1 0.0 - 5.0 % [facility] Basophils 0.4 0.0 - 1.0 % [facility] Immature granulocytes 0.3Comment: 0.0 - 1.0 % [facility] "Immature HOSPITAL granulocytes" (promyelocytes , myelocytes, metamyelocytes ) Specimen Blood Performing Organization Address City/[facility]/Zipcode Phone Number [facility] DEPARTMENT OF PATHOLOGY AND [address] [place] [address] Thyroid stimulating hormone (03/02/2018 3:55 AM ASSEMBLY ADJUSTER) Pathologist [facility] TSH 1.42 0.27 - 4.20 uIU/mL [facility] Specimen Plasma specimen Performing Organization Address [facility] Cent[facility] Phone Number [facility] DEPARTMENT OF PATHOLOGY AND [address] [place] [address] Basic metabolic panel (03/02/2018 3:55 AM ASSEMBLY ADJUSTER)Only the most recent of2 resultswithin the time period is included. Pathologist [facility] Sodium 135 135 - 148 mEq/L [facility] Potassium 3.9 3.5 - 5.0 mEq/L [facility] Chloride 94 (L) 98 - 112 mEq/L [facility] CO2 28 24 - 31 mEq/L [facility] Anion gap 13@ANIO 7 - 15 mEq/L [facility] BUN 12 8 - 23 mg/dL [facility] Creatinine 0.89 0.50 - 0.90 mg/dL [facility] Glucose 112 (H) 65 - 99 mg/dL [facility] Calcium 8.5 (L) 8.8 - 10.2 mg/dL [facility] Specimen Plasma specimen Performing Organization Address [facility] Cent[facility]ode Phone Number [facility] DEPARTMENT OF PATHOLOGY AND [address] [place] [address] Us duplex venous lower extremity (03/01/2018 11:47 AM ASSEMBLY ADJUSTER) Specimen Narrative Performed At [facility] Lower Extremity Venous Report [address] [place] [address] Pat.Name:FLOR ELVA David Pat.ID:[id number] .Date: 03/01/2018Refer.MD:TOBIAS BLANCO MD Exam Time: 11:16:00 AM Study Type:LE Venous Height:59inDOBAge: 1930,87Y Sex: FEMALESonogrphr: Kevin Barry RDMS, RVT Pat. Stat.:Inpatient Room:[address] TapeVol: , CPT - 4: 09773 Echo Event ID:[id number] Order ID:[id number] Reason for Study:Lower extremity swelling. History of [...] Ultrasound Laboratory Lower Extremity Venous Report [address] [place] [address] Pat.Name: ELVA FLOR Pat.ID: [id number] .Date: 03/01/2018 Refer.MD: TOBIAS BLANCO MD Exam Time: 11:16:00 AM Study Type:LE Venous Height: 59in Age: 3 1930,87Y Sex: FEMALE Sonogrphr: Kevin Barry RDMS, RVT Pat. Stat.:Inpatient Room: [address] Tape Vol: , CPT - 4: 59250 Echo Event ID:[id number] Order ID: [id number] Reason for Study:Lower extremity swelling. History of [...] RPVI Performing Organization Address City/State/Zipcode Phone Number [facility] [address] [place] [address] Echocardiogram complete w contrast and 3D if needed (03/01/2018 7:35 AM ASSEMBLY ADJUSTER) Specimen Narrative Performed At [facility] Echocardiography Report [address] [place] [address] Pat.Name:ELVA FLOR Pat.ID:[id number] .Date: 03/01/2018Ref:TOBIAS BLANCO MD Exam Time: 7:07:00 AMStudy Type:Routine Echo Height:59.02in Weight:120lb BSA: 1.49 m2 DOBAge:1930,87Y Sex: FEMALEBP:140/65 HR:78 bpmSonogrphr: Michell Couch RDCS Pat. Stat.:Inpatient Room:[facility] Study Status:Final Echo Event ID:[id number] Order ID:[id number] Reason for Study:Shortness of breath Procedures:2D Echo, [...] RAPof 5 mmHg. MEASUREMENTS: 2D Parasternal [place] Ds3.2 cmLVPWd1 cm LVOT 1.8 cmAo An1.8 cm LVIDd3.9 cmIndex2.6 cm/m Ao Rtd 3 cm Index2 cm/m LVIDs2.1 cmLV Ihsn488 g(87-129) LV%fs 45.5 % LVM Index 86.6 g/m2 IVSd 1.1 cmRWT0.5 LA Sng Plane LA Area 15.4 cm2(8.8-23.4) LA Vol39.3 ml Index26.4 ml/m LA LngAx 5.2 cm RA Sng Plane RA Area 12.6 cm2(8.3-19.5) RA Vol27.5 ml Index18.4 ml/m RA LngAx 5.1 cm DOPPLER LVOT Stroke Vol LVOT 1.8 cmLVOT CO5.2 l/min LVOT TVI31.5 cmLVOT CI3.5 l/m/m2 LVOT Tm343 hokyGD05 bpm LVOT SV 80.1 ml Signed 03/01/2018 02:33 PM Lucho Abdullahi M.D. Procedure Note Interface, Radiology Results In - 03/01/2018 2:34 PM [facility] Echocardiography Report [address] [place] [address] Pat.Name: ELVA FLOR Pat.ID: [id number] .Date: 03/01/2018 Refer.MD: TOBIAS BLANCO MD Exam Time: 7:07:00 AM Study Type:Routine Echo Height: 59.02in Weight: 120lb BSA: 1.49 m2 Age: 2 1930,87Y Sex: FEMALE BP: 140/65 HR: 78 bpm Sonogrphr: Michell Couch RDCS Pat. Stat.:Inpatient Room: [facility] Study Status:Final Echo Event ID:[id number] Order ID: [id number] Reason for Study:Shortness of breath Procedures:2D Echo, [...] of 5 mmHg. MEASUREMENTS: 2D Parasternal [place] Ds 3.2 cm LVPWd 1 cm [...] PM Lucho Abdullahi M.D. Performing Organization Address City/[facility] Centercode Phone Number [facility] [address] [place] [address] Phosphorus level (03/01/2018 4:00 AM ASSEMBLY ADJUSTER)Only the most recent of2 resultswithin the time period is included. Phosphorus 4.0 2.4 - 4.5 mg/dL [facility] Specimen Plasma specimen Performing Organization Address [facility] Centercoms Phone Number [facility] DEPARTMENT OF PATHOLOGY AND [address] [place] [phone] [place] [address] Magnesium level (03/01/2018 4:00 AM ASSEMBLY ADJUSTER)Only the most recent of2 resultswithin the time period is included. Magnesium 1.9 1.6 - 2.4 mg/dL [facility] Specimen Plasma specimen Performing Organization Address [facility] Phone Number [facility] DEPARTMENT OF PATHOLOGY AND [address] [place] [id number] [place] [address] Ionized calcium (03/01/2018 4:00 AM ASSEMBLY ADJUSTER)Only the most recent of2 resultswithin the time period is included. pH 7.53 [facility] Ionized calcium 1.04 (L) 1.11 - 1.32 [facility] mmol/L [facility] Specimen Plasma specimen Performing Organization Address [facility] Phone Number [facility] DEPARTMENT OF PATHOLOGY AND [address] [place] [phone] [place] [address] Angiogram Pe Chest (02/28/2018 10:59 PM ASSEMBLY ADJUSTER) Specimen Narrative Performed At EXAMINATION: [facility] CT [...] identified. IMPRESSION: No evidence of pulmonary embolus. [id number] Procedure Note Interface, Radiology Results Incoming - 02/28/2018 11:31 PM ASSEMBLY ADJUSTER EXAMINATION: CT ANGIOGRAM PE CHEST CLINICAL HISTORY: [...] identified. IMPRESSION: No evidence of pulmonary embolus. [facility]-[id number] Performing Organization Address City/State/Zipcode Phone Number [facility] [address] [place] [address] CT Abdomen Pelvis Wo Contrast (02/28/2018 10:59 PM ASSEMBLY ADJUSTER) Specimen Narrative Performed At Examination:[facility]EL[facility] Clinical History: Shortness of breath Comparison: None. [...] abnormality identified in the abdomen or pelvis. [facility]-[id number] Procedure Note Interface, Radiology Results Incoming - 02/28/2018 11:35 PM ASSEMBLY ADJUSTER Examination: CT ABDOMEN PELVIS WO CONTRAST Clinical [...] abnormality identified in the abdomen or pelvis. [facility]-[id number] Performing Organization Address City/State/Zipcode Phone Number [facility] [address] [place] [address] Comprehensive metabolic panel (02/28/2018 7:46 PM ASSEMBLY ADJUSTER) Sodium 137 135 - 148 [facility] mEq/L [facility] Potassium 3.9 3.5 - 5.0 [facility] mEq/L [facility] Chloride 99 98 - 112 mEq/L [facility] CO2 26 24 - 31 mEq/L [facility] Anion gap 12@ANIO 7 - 15 mEq/L [facility] BUN 15 8 - 23 mg/dL [facility] Creatinine 0.84 0.50 - 0.90 [facility] mg/dL HOSPITAL Glucose 85 65 - 99 mg/dL [facility] Calcium 8.9 8.8 - 10.2 [facility] mg/dL [facility] Protein 6.2 (L) 6.3 - 8.3 g/dL [facility] Comment: [facility] [place] 4.6-7.0 g/dL 1 week 4.4-7.6 g/dL 7 months-1year5.1-7.3 g/dL 1-2 years5.6-7.5 g/dL >3 years6.0-8.0 g/dL 18-150 6.3-8.3 g/dL Albumin 3.1 (L) 3.5 - 5.0 g/dL [facility] A/G ratio 1.0 0.7 - 3.8 [facility] Alkaline phosphatase 62 35 - 104 U/L [facility] AST 27 10 - 35 U/L [facility] ALT 26 5 - 50 U/L [facility] Total bilirubin 0.8 0.0 - 1.2 [facility] mg/dL [facility] Specimen Plasma specimen Performing Organization Address City/State/Zipcode Phone Number [facility] DEPARTMENT OF PATHOLOGY AND [address] [place] [address] Prothrombin time with INR (02/28/2018 7:05 PM ASSEMBLY ADJUSTER) Prothrombin time 14.0 11.5 - 14.5 [facility] INR 1.1 [place] Comment: [facility] International Normalized Ratio (INR) is a therapeutic HOSPITAL monitoring tool for patients who are stable on oral anticoagulant therapy. An INR of 2.0-3.0 is suggested for deep vein thrombosis/pulmonary embolism. Specimen Blood Performing Organization Address City/[facility] Centercode Phone Number [facility] DEPARTMENT OF PATHOLOGY AND [address] [place] [phone] XR Chest 1 Vw Portable (02/28/2018 6:44 PM ASSEMBLY ADJUSTER) Specimen Narrative Performed At EXAMINATION:XR CHEST 1 VW PORTABLE [facility] CLINICAL HISTORY:Shortness of breath COMPARISON:04/12/2017 IMPRESSION: Chronic appearing interstitial lung markings. No consolidations, effusions, or pneumothorax. Calcified granuloma is seen of the right lung base. Cardiomediastinal silhouette is within normal limits. A device projects over the left heart. No acute osseous abnormalities. [facility]-[id number] Procedure Note Interface, Radiology Results Incoming - 02/28/2018 6:58 PM ASSEMBLY ADJUSTER EXAMINATION: XR CHEST 1 VW PORTABLE CLINICAL HISTORY: Shortness of breath COMPARISON: 04/12/2017 IMPRESSION: Chronic appearing interstitial lung markings. No consolidations, effusions, or pneumothorax. Calcified granuloma is seen of the right lung base. Cardiomediastinal silhouette is within normal limits. A device projects over the left heart. No acute osseous abnormalities. [facility]-[id number] Performing Organization Address City/[facility]/Zipcode Phone Number [facility] [address] [place] [address] Type and screen (02/28/2018 6:20 PM ASSEMBLY ADJUSTER) ABO grouping A [facility] Rh type POS [facility] Antibody screen (gel) NEG [facility] Specimen Blood Performing Organization Address City/State/Zipcode Phone Number [facility] DEPARTMENT OF PATHOLOGY AND [address] [place] [address] GENOMIC MEDICINE [facility] [address] [place] [address] ECG 12 lead (02/28/2018 5:57 PM ASSEMBLY ADJUSTER) Ventricular rate 60 [facility] Atrial rate 60 [facility] NH interval 128 [facility] QRSD interval 70 [facility] QT interval 404 [facility] QTC interval 404 [facility] MUSE P axis 1 66 [facility] QRS axis 1 43 [facility] T wave axis 61 [facility] EKG impression Normal sinus rhythm-Possible Left atrial enlargement- Borderline ECG-In automated comparison with ECG of 13-APR-2017 04:43,-Vent. rate has decreased BY52 BPM-Nonspecific T wave abnormality no longer [facility] MUSE evident in Inferior leads- Specimen Narrative Performed At Performing Organization Address [facility] Centercode Phone Number [facility] MUSE [address] [place] [address] after 10/09/2017 (Home) [address] [place] [address] Advance Directives Patient has advance care planning documents on file. For more information, please contact:[address] [address]
--- OUTSIDE RECORDS SUMMARY | 2018-10-10 13:48 | XMS REPORT ---
:1930 Author Organization [facility] Address [address] [place] [address] Dr. Marsh [address] [place] [id number] Care Team Providers Name Role Phone KIM MCKEON ZARI Unavailable Unavailable RICARDO WILSON Unavailable Unavailable Problems This patient has no known problems. Allergies, Adverse Reactions, Alerts This patient has no known allergies or adverse reactions. Medications This patient has no known medications. Results Test Description Test Time Test Comments Text Results Atomic Results Result Comments TISSUE EXAM 2017-09-20 16:22:00 Surgical Pathology Report Case: [id number] Authorizing Provider: Misha Calloway MD Collected: 09/16/2017 1538 Ordering Location: [address] Received: 09/19/2017 0820 Service Pathologist: Larry Cohn MD Specimen: Polyp, Colon - Rectosigmoid, POLYP TAKEN BY HOT SNARE RECTO-SIGMOID, POLYPECTOMY- TUBULAR ADENOMA- CAUTERIZED EDGE, NEGATIVE FOR ADENOMATOUS CHANGE Signing Pathologist Direct Phone Line: [phone] signed by Larry Cohn MD on 09/20/2017 at 4:22 [id number] bleedRectosigmoid colon polypThe specimen is received in [...] Value Reference Range Comments MAGNESIUM (BEAKER) (test rsab=501) 1.9 mg/dL 1.6-2.6 BASIC METABOLIC [id number] 07:32:00 Test Item Value Reference Range Comments SODIUM (BEAKER) (test 138 meq/L 136-145 vcjw=118) POTASSIUM (BEAKER) (test 4.2 meq/L 3.5-5.1 rtgb=990) CHLORIDE (BEAKER) (test 106 meq/L 98-107 owjk=846) CO2 (BEAKER) (test 25 meq/L 22-29 sngx=949) BLOOD UREA NITROGEN 6 mg/dL 7-21 (BEAKER) (test ioah=590) CREATININE (BEAKER) (test 0.66 mg/dL 0.57-1.25 odip=197) GLUCOSE RANDOM (BEAKER) 76 mg/dL 70-105 (test jwrt=243) CALCIUM (BEAKER) (test 8.4 mg/dL 8.4-10.2 hywf=183) EGFR (BEAKER) (test 85 mL/min/1.73 sq m ESTIMATED GFR IS NOT pxcj=0152) ACCURATE CREATININE CLEARANCE IN PREDICTING GLOMERULAR FILTRATION RATE. ESTIMATED GFR IS NOT APPLICABLE FOR DIALYSIS PATIENTS. PT/[id number] 06:42:00 Test Item Value Reference Range Comments PROTIME (BEAKER) (test lmwg=706) 20.8 seconds 11.7-14.7 INR (BEAKER) (test zbkr=284) 1.8 <=5.9 PARTIAL THROMBOPLASTIN TIME (BEAKER) (test 36.1 seconds 22.5-36.0 aacz=393) RECOMMENDED COUMADIN/WARFARIN INR THERAPY RANGESSTANDARD DOSE: 2.0 - 3.0 Includes: PROPHYLAXIS forvenous thrombosis, systemic embolization; TREATMENT for venous thrombosis and/or pulmonary embolus.HIGH RISK: Target INR is 2.5-3.5 for patients with mechanical heart valves.CBC W/PLT COUNT & AUTO [id number] 06:41:00 Test Item Value Reference Range Comments WHITE BLOOD CELL COUNT (BEAKER) (test ihzw=640) 5.5 K/ L 3.5-10.5 RED BLOOD CELL COUNT (BEAKER) (test nwde=646) 3.52 M/ L 3.93-5.22 HEMOGLOBIN (BEAKER) (test fkhl=383) 10.4 GM/DL 11.2-15.7 HEMATOCRIT (BEAKER) (test jhzg=486) 33.1 % 34.1-44.9 MEAN CORPUSCULAR VOLUME (BEAKER) (test kqgc=669) 94.0 fL 79.4-94.8 MEAN CORPUSCULAR HEMOGLOBIN (BEAKER) (test 29.5 pg 25.6-32.2 vimi=798) MEAN CORPUSCULAR HEMOGLOBIN CONC (BEAKER) (test 31.4 GM/DL 32.2-35.5 kfie=159) RED CELL DISTRIBUTION WIDTH (BEAKER) (test 19.8 % 11.7-14.4 nyqo=546) PLATELET COUNT (BEAKER) (test sibs=744) 240 K/CU MM 150-450 MEAN PLATELET VOLUME (BEAKER) (test wdne=503) 8.5 fL 9.4-12.3 NUCLEATED RED BLOOD CELLS (BEAKER) (test 0 /100 WBC 0-0 vgvo=368) NEUTROPHILS RELATIVE PERCENT (BEAKER) (test 43 % pwbo=250) LYMPHOCYTES RELATIVE PERCENT (BEAKER) (test 49 % uxdo=229) MONOCYTES RELATIVE PERCENT (BEAKER) (test 7 % jzqu=624) EOSINOPHILS RELATIVE PERCENT (BEAKER) (test 1 % jelw=956) BASOPHILS RELATIVE PERCENT (BEAKER) (test 0 % lien=475) NEUTROPHILS ABSOLUTE COUNT (BEAKER) (test 2.34 K/ L 1.56-6.13 ahyh=760) LYMPHOCYTES ABSOLUTE COUNT (BEAKER) (test 2.68 K/ L 1.18-3.74 xokd=148) MONOCYTES ABSOLUTE COUNT (BEAKER) (test 0.38 K/ L 0.24-0.36 ypbu=044) EOSINOPHILS ABSOLUTE COUNT (BEAKER) (test 0.05 K/ L 0.04-0.36 woqm=637) BASOPHILS ABSOLUTE COUNT (BEAKER) (test 0.02 K/ L 0.01-0.08 tdbi=637) IMMATURE GRANULOCYTES-RELATIVE PERCENT (BEAKER) 0 % 0-1 (test ecvs=0031) [id number] 19:07:00 Test Item Value Reference Range Comments MAGNESIUM (BEAKER) (test nnak=676) 1.9 mg/dL 1.6-2.6 BASIC METABOLIC [id number] 19:07:00 Test Item Value Reference Range Comments SODIUM (BEAKER) (test 137 meq/L 136-145 jryw=059) POTASSIUM (BEAKER) (test 3.8 meq/L 3.5-5.1 xjuj=625) CHLORIDE (BEAKER) (test 106 meq/L 98-107 zcjt=968) CO2 (BEAKER) (test 23 meq/L 22-29 utsp=948) BLOOD UREA NITROGEN 6 mg/dL 7-21 (BEAKER) (test pgin=659) CREATININE (BEAKER) (test 0.64 mg/dL 0.57-1.25 xmlz=460) GLUCOSE RANDOM (BEAKER) 82 mg/dL 70-105 (test vibq=976) CALCIUM (BEAKER) (test 8.5 mg/dL 8.4-10.2 tyww=970) EGFR (BEAKER) (test 88 mL/min/1.73 sq m ESTIMATED GFR IS NOT tyid=1833) ACCURATE CREATININE CLEARANCE IN PREDICTING GLOMERULAR FILTRATION RATE. ESTIMATED GFR IS NOT APPLICABLE FOR DIALYSIS PATIENTS. CBC (HEMOGRAM ONLY)2017-09-16 18:38:00 Test Item Value Reference Range Comments WHITE BLOOD CELL COUNT (BEAKER) (test sarx=233) 6.5 K/ L 3.5-10.5 RED BLOOD CELL COUNT (BEAKER) (test ptmo=577) 3.61 M/ L 3.93-5.22 HEMOGLOBIN (BEAKER) (test rjhq=315) 10.9 GM/DL 11.2-15.7 HEMATOCRIT (BEAKER) (test sxvb=051) 33.5 % 34.1-44.9 MEAN CORPUSCULAR VOLUME (BEAKER) (test ekcq=415) 92.8 fL 79.4-94.8 MEAN CORPUSCULAR HEMOGLOBIN (BEAKER) (test 30.2 pg 25.6-32.2 tqqz=324) MEAN CORPUSCULAR HEMOGLOBIN CONC (BEAKER) (test 32.5 GM/DL 32.2-35.5 qnof=998) RED CELL DISTRIBUTION WIDTH (BEAKER) (test 19.8 % 11.7-14.4 mzuh=727) PLATELET COUNT (BEAKER) (test izot=966) 239 K/CU MM 150-450 MEAN PLATELET VOLUME (BEAKER) (test ulyz=299) 8.7 fL 9.4-12.3 NUCLEATED RED BLOOD CELLS (BEAKER) (test 0 /100 WBC 0-0 xvqc=354) [id number] 06:56:00 Test Item Value Reference Range Comments PHOSPHORUS (BEAKER) (test qckq=869) 2.7 mg/dL 2.3-4.7 [id number] 06:56:00 Test Item Value Reference Range Comments MAGNESIUM (BEAKER) (test gjta=048) 1.9 mg/dL 1.6-2.6 BASIC METABOLIC [id number] 06:56:00 Test Item Value Reference Range Comments SODIUM (BEAKER) (test 139 meq/L 136-145 gwlz=860) POTASSIUM (BEAKER) (test 4.1 meq/L 3.5-5.1 hpkn=247) CHLORIDE (BEAKER) (test 107 meq/L 98-107 aziw=487) CO2 (BEAKER) (test 26 meq/L 22-29 nrmu=089) BLOOD UREA NITROGEN 11 mg/dL 7-21 (BEAKER) (test axwa=973) CREATININE (BEAKER) (test 0.73 mg/dL 0.57-1.25 pkau=603) GLUCOSE RANDOM (BEAKER) 107 mg/dL 70-105 (test hfik=742) CALCIUM (BEAKER) (test 8.5 mg/dL 8.4-10.2 sasm=685) EGFR (BEAKER) (test 76 mL/min/1.73 sq m ESTIMATED GFR IS NOT lxeo=6459) ACCURATE CREATININE CLEARANCE IN PREDICTING GLOMERULAR FILTRATION RATE. ESTIMATED GFR IS NOT APPLICABLE FOR DIALYSIS PATIENTS. HEPATIC FUNCTION [id number] 06:56:00 Test Item Value Reference Range Comments TOTAL PROTEIN (BEAKER) (test kvxk=120) 5.2 gm/dL 6.0-8.3 ALBUMIN (BEAKER) (test dqnx=7906) 2.9 g/dL 3.5-5.0 BILIRUBIN TOTAL (BEAKER) (test xoho=557) 0.8 mg/dL 0.2-1.2 BILIRUBIN DIRECT (BEAKER) (test gjro=210) 0.4 mg/dL 0.1-0.5 ALKALINE PHOSPHATASE (BEAKER) (test pnzc=891) 43 U/L 40-150 AST (SGOT) (BEAKER) (test vbyk=952) 13 U/L 5-34 ALT (SGPT) (BEAKER) (test lbas=055) 10 U/L 6-55 CALCIUM, [id number] 06:36:00 Test Item Value Reference Range Comments CALCIUM IONIZED (BEAKER) (test zytf=050) 1.05 mmol/L 1.12-1.27 PH, BLOOD (BEAKER) (test ovsp=6080) 7.46 PROTHROMBIN [id number] 06:35:00 Test Item Value Reference Range Comments PROTIME (BEAKER) (test hiuq=206) 14.2 seconds 11.7-14.7 INR (BEAKER) (test sonx=449) 1.1 <=5.9 RECOMMENDED COUMADIN/WARFARIN INR THERAPY RANGESSTANDARD DOSE: 2.0 - 3.0 Includes: PROPHYLAXIS forvenous thrombosis, systemic embolization; TREATMENT for venous thrombosis and/or pulmonary embolus.HIGH RISK: Target INR is 2.5-3.5 for patients with mechanical heart valves.CBC W/PLT COUNT & AUTO [id number] 06:25:00 Test Item Value Reference Range Comments WHITE BLOOD CELL COUNT (BEAKER) (test ybod=558) 9.4 K/ L 3.5-10.5 RED BLOOD CELL COUNT (BEAKER) (test qoys=659) 3.48 M/ L 3.93-5.22 HEMOGLOBIN (BEAKER) (test lodv=314) 10.0 GM/DL 11.2-15.7 HEMATOCRIT (BEAKER) (test kdpq=802) 31.1 % 34.1-44.9 MEAN CORPUSCULAR VOLUME (BEAKER) (test ydhe=008) 89.4 fL 79.4-94.8 MEAN CORPUSCULAR HEMOGLOBIN (BEAKER) (test 28.7 pg 25.6-32.2 ckzq=909) MEAN CORPUSCULAR HEMOGLOBIN CONC (BEAKER) (test 32.2 GM/DL 32.2-35.5 swvo=433) RED CELL DISTRIBUTION WIDTH (BEAKER) (test 18.3 % 11.7-14.4 bqee=298) PLATELET COUNT (BEAKER) (test cgpb=588) 234 K/CU MM 150-450 MEAN PLATELET VOLUME (BEAKER) (test akde=771) 8.9 fL 9.4-12.3 NUCLEATED RED BLOOD CELLS (BEAKER) (test 0 /100 WBC 0-0 tgdb=351) NEUTROPHILS RELATIVE PERCENT (BEAKER) (test 70 % eqqh=215) LYMPHOCYTES RELATIVE PERCENT (BEAKER) (test 24 % nbui=419) MONOCYTES RELATIVE PERCENT (BEAKER) (test 5 % tlzk=065) EOSINOPHILS RELATIVE PERCENT (BEAKER) (test 0 % iiov=462) BASOPHILS RELATIVE PERCENT (BEAKER) (test 0 % kxoy=501) NEUTROPHILS ABSOLUTE COUNT (BEAKER) (test 6.54 K/ L 1.56-6.13 mcjl=381) LYMPHOCYTES ABSOLUTE COUNT (BEAKER) (test 2.30 K/ L 1.18-3.74 krus=072) MONOCYTES ABSOLUTE COUNT (BEAKER) (test 0.50 K/ L 0.24-0.36 cruc=678) EOSINOPHILS ABSOLUTE COUNT (BEAKER) (test 0.03 K/ L 0.04-0.36 xqtu=538) BASOPHILS ABSOLUTE COUNT (BEAKER) (test 0.02 K/ L 0.01-0.08 omkk=794) IMMATURE GRANULOCYTES-RELATIVE PERCENT (BEAKER) 0 % 0-1 (test mcvv=2284) TISSUE [id number] 14:52:00Surgical Pathology Report Case: [id number] Authorizing Provider: Ricardo Wilson MD Collected: 08/02/2017 1715 Ordering Location: [facility] Endoscopy Received: 08/03/2017 0837 Services Pathologist: Larry Cohn MD Specimen: Rectal, MASS- TAKEN BY ESD, ON WAX, EVALUATE MARGINS RECTAL, 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)- NEGATIVE FOR HIGH GRADE DYSPLASIA OR CARCINOMA- PERIPHERAL MARGINS, NEGATIVE FOR ADENOMATOUS CHANGE Signing Pathologist Direct Phone Line: [phone] signed by Larry Cohn MD on 08/04/2017 at 2:52 [id number] polyp Rectal mass Received in formalin labeled [...] the diagnostic line.CBC W/PLT COUNT & AUTO [id number] 06:19:00 Test Item Value Reference Range Comments WHITE BLOOD CELL COUNT (BEAKER) (test qssr=074) 15.6 K/ L 3.5-10.5 RED BLOOD CELL COUNT (BEAKER) (test krjr=547) 3.50 M/ L 3.93-5.22 HEMOGLOBIN (BEAKER) (test jgbt=515) 9.9 GM/DL 11.2-15.7 HEMATOCRIT (BEAKER) (test exlb=409) 31.4 % 34.1-44.9 MEAN CORPUSCULAR VOLUME (BEAKER) (test gmrn=501) 89.7 fL 79.4-94.8 MEAN CORPUSCULAR HEMOGLOBIN (BEAKER) (test 28.3 pg 25.6-32.2 owgn=824) MEAN CORPUSCULAR HEMOGLOBIN CONC (BEAKER) (test 31.5 GM/DL 32.2-35.5 pkdi=982) RED CELL DISTRIBUTION WIDTH (BEAKER) (test 18.0 % 11.7-14.4 birp=349) PLATELET COUNT (BEAKER) (test jqtj=646) 223 K/CU MM 150-450 MEAN PLATELET VOLUME (BEAKER) (test edsy=619) 8.7 fL 9.4-12.3 NUCLEATED RED BLOOD CELLS (BEAKER) (test 0 /100 WBC 0-0 llfe=505) NEUTROPHILS RELATIVE PERCENT (BEAKER) (test 81 % ezmc=567) LYMPHOCYTES RELATIVE PERCENT (BEAKER) (test 15 % vfiy=529) MONOCYTES RELATIVE PERCENT (BEAKER) (test 4 % jthw=974) EOSINOPHILS RELATIVE PERCENT (BEAKER) (test 0 % acke=376) BASOPHILS RELATIVE PERCENT (BEAKER) (test 0 % kmai=474) NEUTROPHILS ABSOLUTE COUNT (BEAKER) (test 12.56 K/ L 1.56-6.13 doun=058) LYMPHOCYTES ABSOLUTE COUNT (BEAKER) (test 2.36 K/ L 1.18-3.74 tdph=138) MONOCYTES ABSOLUTE COUNT (BEAKER) (test 0.56 K/ L 0.24-0.36 cghg=755) EOSINOPHILS ABSOLUTE COUNT (BEAKER) (test 0.03 K/ L 0.04-0.36 pymz=188) BASOPHILS ABSOLUTE COUNT (BEAKER) (test 0.02 K/ L 0.01-0.08 bbju=404) IMMATURE GRANULOCYTES-RELATIVE PERCENT (BEAKER) 0 % 0-1 (test uuwf=5295) HEPATIC FUNCTION [id number] 06:15:00 Test Item Value Reference Range Comments TOTAL PROTEIN (BEAKER) (test uicp=611) 4.9 gm/dL 6.0-8.3 ALBUMIN (BEAKER) (test npkq=3578) 2.8 g/dL 3.5-5.0 BILIRUBIN TOTAL (BEAKER) (test xyix=483) 1.1 mg/dL 0.2-1.2 BILIRUBIN DIRECT (BEAKER) (test wflu=963) 0.5 mg/dL 0.1-0.5 ALKALINE PHOSPHATASE (BEAKER) (test xujs=253) 42 U/L 40-150 AST (SGOT) (BEAKER) (test nukt=847) 15 U/L 5-34 ALT (SGPT) (BEAKER) (test cchx=476) 12 U/L 6-55 BASIC METABOLIC [id number] 06:15:00 Test Item Value Reference Range Comments SODIUM (BEAKER) (test 139 meq/L 136-145 sqci=810) POTASSIUM (BEAKER) (test 4.6 meq/L 3.5-5.1 uxpb=797) CHLORIDE (BEAKER) (test 108 meq/L 98-107 zpzq=757) CO2 (BEAKER) (test 25 meq/L 22-29 dvsl=032) BLOOD UREA NITROGEN 13 mg/dL 7-21 (BEAKER) (test gwhh=306) CREATININE (BEAKER) (test 0.73 mg/dL 0.57-1.25 dkxz=729) GLUCOSE RANDOM (BEAKER) 115 mg/dL 70-105 (test phqa=366) CALCIUM (BEAKER) (test 8.5 mg/dL 8.4-10.2 wvet=857) EGFR (BEAKER) (test 76 mL/min/1.73 sq m ESTIMATED GFR IS NOT idrc=4639) ACCURATE CREATININE CLEARANCE IN PREDICTING GLOMERULAR FILTRATION RATE. ESTIMATED GFR IS NOT APPLICABLE FOR DIALYSIS PATIENTS. PROTHROMBIN [id number] 05:59:00 Test Item Value Reference Range Comments PROTIME (BEAKER) (test hpfl=273) 14.6 seconds 11.7-14.7 INR (BEAKER) (test lair=363) 1.1 <=5.9 RECOMMENDED COUMADIN/WARFARIN INR THERAPY RANGESSTANDARD DOSE: 2.0 - 3.0 Includes: PROPHYLAXIS forvenous thrombosis, systemic embolization; TREATMENT for venous thrombosis and/or pulmonary embolus.HIGH RISK: Target INR is 2.5-3.5 for patients with mechanical heart valves.URINALYSIS W/ [id number] 14 :53:00 Test Item Value Reference Range Comments COLOR (BEAKER) (test owut=447) Yellow CLARITY (BEAKER) (test hlta=993) Clear SPECIFIC GRAVITY UA (BEAKER) (test qxqd=822) 1.010 1.001-1.035 PH UA (BEAKER) (test jiem=068) 5.5 5.0-8.0 PROTEIN UA (BEAKER) (test luen=362) Negative Negative GLUCOSE UA (BEAKER) (test mxcn=051) Negative Negative KETONES UA (BEAKER) (test jsms=614) Trace Negative BILIRUBIN UA (BEAKER) (test enhq=549) Negative Negative BLOOD UA (BEAKER) (test nevg=276) Negative Negative NITRITE UA (BEAKER) (test qdjt=020) Negative Negative LEUKOCYTE ESTERASE UA (BEAKER) (test nyli=759) Negative Negative UROBILINOGEN UA (BEAKER) (test uipp=239) 0.2 mg/dL 0.2-1.0 RBC UA (BEAKER) (test zdzp=594) 1 /HPF WBC UA (BEAKER) (test dahq=916) 3 /HPF MUCUS (BEAKER) (test lqfm=6511) Few SQUAMOUS EPITHELIAL (BEAKER) (test yltb=067) < /HPF HYALINE CASTS (BEAKER) (test ylsp=240) 2 /LPF SOURCE(BEAKER) (test bkms=2212) HEPATIC FUNCTION [id number] 06:31:00 Test Item Value Reference Range Comments TOTAL PROTEIN (BEAKER) (test ijew=727) 5.2 gm/dL 6.0-8.3 ALBUMIN (BEAKER) (test uaja=3964) 3.1 g/dL 3.5-5.0 BILIRUBIN TOTAL (BEAKER) (test lfmi=113) 1.1 mg/dL 0.2-1.2 BILIRUBIN DIRECT (BEAKER) (test shad=488) 0.5 mg/dL 0.1-0.5 ALKALINE PHOSPHATASE (BEAKER) (test exoo=072) 47 U/L 40-150 AST (SGOT) (BEAKER) (test eykf=395) 20 U/L 5-34 ALT (SGPT) (BEAKER) (test yknr=324) 15 U/L 6-55 BASIC METABOLIC [id number] 06:31:00 Test Item Value Reference Range Comments SODIUM (BEAKER) (test 139 meq/L 136-145 cwqu=924) POTASSIUM (BEAKER) (test 2.7 meq/L 3.5-5.1 uuti=967) CHLORIDE (BEAKER) (test 106 meq/L 98-107 jkxk=877) CO2 (BEAKER) (test 24 meq/L 22-29 uzdo=241) BLOOD UREA NITROGEN 7 mg/dL 7-21 (BEAKER) (test xarr=935) CREATININE (BEAKER) (test 0.61 mg/dL 0.57-1.25 agil=757) GLUCOSE RANDOM (BEAKER) 88 mg/dL 70-105 (test lkev=074) CALCIUM (BEAKER) (test 8.4 mg/dL 8.4-10.2 kmaz=118) EGFR (BEAKER) (test 93 mL/min/1.73 sq m ESTIMATED GFR IS NOT ugwe=8102) ACCURATE CREATININE CLEARANCE IN PREDICTING GLOMERULAR FILTRATION RATE. ESTIMATED GFR IS NOT APPLICABLE FOR DIALYSIS PATIENTS. BASIC METABOLIC [id number] 06:30:00 Test Item Value Reference Range Comments SODIUM (BEAKER) (test 136 meq/L 136-145 lttk=724) POTASSIUM (BEAKER) (test 3.0 meq/L 3.5-5.1 Specimen slightly icwo=939) hemolyzed CHLORIDE (BEAKER) (test 106 meq/L 98-107 vbfp=192) CO2 (BEAKER) (test 20 meq/L 22-29 jmxl=421) BLOOD UREA NITROGEN 7 mg/dL 7-21 (BEAKER) (test dgrx=008) CREATININE (BEAKER) (test 0.61 mg/dL 0.57-1.25 Specimen slightly mioe=347) hemolyzed GLUCOSE RANDOM (BEAKER) 81 mg/dL 70-105 (test gcuv=736) CALCIUM (BEAKER) (test 8.2 mg/dL 8.4-10.2 llyh=618) EGFR (BEAKER) (test 93 mL/min/1.73 sq m ESTIMATED GFR IS NOT ahxx=1840) ACCURATE CREATININE CLEARANCE IN PREDICTING GLOMERULAR FILTRATION RATE. ESTIMATED GFR IS NOT APPLICABLE FOR DIALYSIS PATIENTS. CBC W/PLT COUNT & AUTO [id number] 06:25:00 Test Item Value Reference Range Comments WHITE BLOOD CELL COUNT (BEAKER) (test yfht=205) 14.6 K/ L 3.5-10.5 RED BLOOD CELL COUNT (BEAKER) (test iydj=316) 3.75 M/ L 3.93-5.22 HEMOGLOBIN (BEAKER) (test ssmb=549) 10.5 GM/DL 11.2-15.7 HEMATOCRIT (BEAKER) (test vmxc=744) 33.1 % 34.1-44.9 MEAN CORPUSCULAR VOLUME (BEAKER) (test fnck=039) 88.3 fL 79.4-94.8 MEAN CORPUSCULAR HEMOGLOBIN (BEAKER) (test 28.0 pg 25.6-32.2 vfap=553) MEAN CORPUSCULAR HEMOGLOBIN CONC (BEAKER) (test 31.7 GM/DL 32.2-35.5 pgwg=087) RED CELL DISTRIBUTION WIDTH (BEAKER) (test 17.5 % 11.7-14.4 xvsu=632) PLATELET COUNT (BEAKER) (test xjlk=326) 246 K/CU MM 150-450 MEAN PLATELET VOLUME (BEAKER) (test sqnl=538) 8.9 fL 9.4-12.3 NUCLEATED RED BLOOD CELLS (BEAKER) (test 0 /100 WBC 0-0 dkqw=400) NEUTROPHILS RELATIVE PERCENT (BEAKER) (test 88 % uvrc=332) LYMPHOCYTES RELATIVE PERCENT (BEAKER) (test 5 % svla=813) MONOCYTES RELATIVE PERCENT (BEAKER) (test 6 % cotw=077) EOSINOPHILS RELATIVE PERCENT (BEAKER) (test 0 % ubhn=621) BASOPHILS RELATIVE PERCENT (BEAKER) (test 0 % mtzl=913) NEUTROPHILS ABSOLUTE COUNT (BEAKER) (test 12.85 K/ L 1.56-6.13 thwz=703) LYMPHOCYTES ABSOLUTE COUNT (BEAKER) (test 0.71 K/ L 1.18-3.74 ifdv=503) MONOCYTES ABSOLUTE COUNT (BEAKER) (test 0.94 K/ L 0.24-0.36 gexq=948) EOSINOPHILS ABSOLUTE COUNT (BEAKER) (test 0.00 K/ L 0.04-0.36 sfqp=078) BASOPHILS ABSOLUTE COUNT (BEAKER) (test 0.02 K/ L 0.01-0.08 nmrp=682) IMMATURE GRANULOCYTES-RELATIVE PERCENT (BEAKER) 1 % 0-1 (test wtny=7236) PROTHROMBIN TIME/[id number] 06:21:00 Test Item Value Reference Range Comments PROTIME (BEAKER) (test iwtv=724) 13.5 seconds 11.7-14.7 INR (BEAKER) (test kurg=715) 1.0 <=5.9 RECOMMENDED COUMADIN/WARFARIN INR THERAPY RANGESSTANDARD DOSE: 2.0 - 3.0 Includes: PROPHYLAXIS forvenous thrombosis, systemic embolization; TREATMENT for venous thrombosis and/or pulmonary embolus.HIGH RISK: Target INR is 2.5-3.5 for patients with mechanical heart valves.
[2018-10-10] MEDS ORDERED: NA CHLORIDE 0.9% 500 ML ONE (14:22)
[2018-10-10] MEDS ORDERED: LEVALBUTEROL 1.25 MG/3 ML NEB ONE (14:22)
[2018-10-10 14:30] LABS: Basophils % 0.5 % (0-1.3); Hematocrit 37.5 % (36.0-45.0); Lymphocytes % 28.8 % (15.3-44.8); MPV 6.8 fL (7.6-11.3); RBC Red Blood Cell Count 3.84 M/uL (3.86-4.86)
--- NOTE | 2018-10-10 14:42 | RAD REPORT ---
EXAM DESCRIPTION: RAD - Chest Single View - 10/10/2018 2:36 pm CLINICAL HISTORY: DYSPNEA Chest pain. COMPARISON: Chest Single View dated 08/13/2018; Chest Pa And Lat (2 Views) dated 07/12/2018; Chest Singl e View dated 04/14/2018; Chest Single View dated 01/17/2018 FINDINGS: Portable technique limits examination quality. The lungs are grossly clear. The heart is upper limit of normal in size. No displaced fractures. IMPRESSION: No acute intrathoracic process suspected.
[2018-10-10 14:44] LABS: ALT/SGPT 29 U/L (12-78); AST/SGOT 20 U/L (15-37); Albumin 2.9 g/dL (3.4-5.0); BUN Blood Urea Nitrogen 16 mg/dL (7-18); Bicarbonate 28 mmol/L (21-32); Bilirubin Direct 0.3 mg/dL (0-0.2); Glucose Level 133 mg/dL (74-106); Lipase 202 U/L (73-393); Magnesium 2.2 mg/dL (1.8-2.4); Potassium 3.9 mmol/L (3.5-5.1); Sodium Level 137 mmol/L (136-145)
[2018-10-10 14:50] LABS: Alkaline Phosphatase 51 U/L (45-117); Bilirubin Total 0.8 mg/dL (0.2-1.0); NT PRO-BNP 203 pg/mL (<450); Protein, Total 6.2 g/dL (6.4-8.2); Troponin (Emerg Dept Use Only) < 0.02 ng/mL (0.0-0.045)
[2018-10-10 16:39] LABS: Calcium Oxalate Crystals- Ur FEW (NONE SEEN); Urine Bacteria <20 /HPF (<20); Urine Culture Reflex Order NOT NEEDED; Urine Mucus 1+ /HPF (NONE SEEN)
--- NOTE | 2018-10-10 16:55 | RAD REPORT ---
EXAM DESCRIPTION: CT - Chest For Pe Angio - 10/10/2018 4:33 pm CLINICAL HISTORY: ^DYSPNEA COMPARISON: CT; Chest For Pe Angio 01/17/2018 TECHNIQUE: Dynamically enhanced 3 mm thick images of the chest were obtained during administration o f approximately 150mL Isovue 370 IV contrast. Coronal and oblique MIP reconstruction images were gene rated and reviewed. Exam utilizes a protocol to evaluate the pulmonary arterial tree. All CT scans are performed using dose optimization technique as appropriate and may include automated exposure control or mA/KV adjustment according to patient size. FINDINGS: No pulmonary emboli are identified. The aorta as imaged shows no acute or suspicious finding. No pericardial thickening or effusion. No acute infiltrate in the lung parenchyma. Patient has underlying COPD changes. Minimal stranding in the lateral right lower lobe may be a minimal pneumonitis. The patient has an 8 mm pleural abutting nodule in the medial left lung base not clearly seen on the comparison study. There is an additional 8 millimeter nodule abutting the pleura in the posterior left lower lobe. This is also a new finding. No pleural effusion or pleural thickening. No mediastinal or hilar suspicious masses. No chest wall masses or abnormal axillary lymphadenopathy. IMPRESSION: No pulmonary emboli identified. Two new areas of pleural abutting nodularity in the left lower lobe not present on a January 2018 st y.In all likelihood these are areas of atelectasis or possibly minimal infiltrate given the rapid o nset. However, follow-up CT imaging in 3-6 months is the recommendation. Underlying COPD.
--- NOTE | 2018-10-10 17:07 | ER ---
Nurse's Notes [facility] Name: Elva Jenkins Age: 88 yrs Sex: Female : 1930 Arrival Date: 10/10/2018 Time: 13:45 Bed 5 Private MD: Diagnosis: Chronic obstructive pulmonary disease with acute lower respiratory infection;Pneumonia;Dehydration Presentation: 10/10 13:49 Presenting complaint: EMS states: Shortness of breath that began this morning, reports tw2 having bilateral leg swelling that is not new. Transition of care: patient was not received from another setting of care. Onset of symptoms was October 10, 2018. Risk Assessment: Do you want to hurt yourself or someone else? Patient reports no desire to harm self or others. Initial Sepsis Screen: Does the patient meet any 2 criteria? No. Patient's initial sepsis screen is negative. Does the patient have a suspected source of infection? No. Patient's initial sepsis screen is negative. Care prior to arrival: Medication(s) given: Albuterol Neb. 13:49 Method Of Arrival: EMS: [facility] tw2 13:49 Acuity: TAVON 3 tw2 Triage Assessment: 13:51 General: Appears in no apparent distress. Behavior is calm, cooperative, appropriate tw2 for age. Pain: Denies pain. Respiratory: Reports shortness of breath at rest on exertion Onset: The symptoms/episode began/occurred this morning, the patient has mild shortness of breath. Historical: - Allergies: 13:48 Asacol; tw2 13:48 Humira; tw2 13:48 Methotrexate; tw2 13:48 Orencia; tw2 13:48 Phenergan; tw2 13:48 Sulfazine; tw2 - Home Meds: 13:54 albuterol sulfate 2.5 mg /3 mL (0.083 %) Inhl nebu 3 mL 3 times per day [Active]; tw2 albuterol sulfate 90 mcg/actuation Inhl HFAA 2 puffs every 6 hours [Active]; atorvastatin 40 mg Oral tab 1 tab once daily [Active]; benzonatate 200 mg Oral cap 1 cap 3 times per day [Active]; famotidine 20 mg Oral tab 1 tab once daily [Active]; levothyroxine 50 mcg tab 1 tab once daily [Active]; melatonin 3 mg Oral tab 2 tab nightly [Active]; paroxetine HCl 40 mg Oral tab 1 tab once daily [Active]; prednisone 5 mg Oral tab 2 tabs once daily [Active]; Spiriva with HandiHaler 18 mcg inhalation CpDv 1 cap once daily [Active]; Symbicort 160-4.5 mcg/actuation inhalation HFAA 2 puffs 2 times per day [Active]; - PMHx: 13:48 Arthritis; COPD; Depression; GERD; Hyperlipidemia; Hypothyroidism; tw2 - PSHx: 13:48 Bladder Sling; Cataract, both eyes; 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 - Social history:: Smoking status: Patient/guardian denies using tobacco. - Ebola Screening: : Patient negative for fever greater than or equal to 101.5 degrees Fahrenheit, and additional compatible Ebola Virus Disease symptoms Patient denies exposure to infectious person Patient denies travel to an Ebola-affected area in the 21 days before illness onset No symptoms or risks identified at this time. - Family history:: not pertinent. - Hospitalizations: : No recent hospitalization is reported. Screenin:51 Abuse screen: Denies threats or abuse. Nutritional screening: No deficits noted. tw2 Tuberculosis screening: No symptoms or risk factors identified. Fall Risk Secondary diagnosis (15 points) impaired mobility. Assessment: 13:51 General: Appears in no apparent distress. Behavior is calm, cooperative, appropriate tw2 for age. Pain: Denies pain. Neuro: Level of Consciousness is awake, alert, obeys commands, Oriented to person, place, time, situation. Cardiovascular: Heart tones S1 S2 Rhythm is regular. Cardiovascular: Edema is 2+ to left midcalf, left ankle, left foot, right midcalf, right ankle and right foot. Respiratory: Airway is patent Respiratory effort is even, unlabored, Breath sounds are diminished bilaterally. in left posterior lower lobe, right posterior middle lobe and right posterior lower lobe. GI: Abdomen is flat, Bowel sounds present X 4 quads. : No signs and/or symptoms were reported regarding the genitourinary system. EENT: No signs and/or symptoms were reported regarding the EENT system. Derm: No signs and/or symptoms reported regarding the dermatologic system. Musculoskeletal: Range of motion: intact in all extremities. 15:11 Reassessment: Patient appears in no apparent distress at this time. Patient and/or rv family updated on plan of care and expected duration. Pain level reassessed. Patient is alert, oriented x 3, equal unlabored respirations, skin warm/dry/pink. Patient states feeling better. 16:01 Reassessment: Patient appears in no apparent distress at this time. Patient and/or rv family updated on plan of care and expected duration. Pain level reassessed. Patient is alert, oriented x 3, equal unlabored respirations, skin warm/dry/pink. patient was able to ambulate to the restroom. no complaints of SOB. 17:47 Reassessment: Patient appears in no apparent distress at this time. Patient and/or rv family updated on plan of care and expected duration. Pain level reassessed. Patient is alert, oriented x 3, equal unlabored respirations, skin warm/dry/pink. AWAITING CALL FROM RECEIVING FLOOR. Vital Signs: 13:46 BP 125 / 57; Pulse 82; Resp 17; Temp 99.0(TE); Pulse Ox 98% on R/A; tw2 14:00 BP 119 / 57; Pulse 88; Resp 15; Pulse Ox 97% on R/A; rv 15:00 BP 144 / 56; Pulse 118; Resp 16; Temp 98.2(O); Pulse Ox 99% ; rv 15:59 BP 141 / 60; Pulse 112; Resp 23; Pulse Ox 96% on R/A; rv 17:44 BP 123 / 68; Pulse 94; Resp 19; Temp 98.3; Pulse Ox 98% on R/A; rv ED Course: 13:45 Patient arrived in ED. iw 13:45 Bed in low position. Call light in reach. Side rails up X2. hall monitor on. Pulse tw2 ox on. NIBP on. 13:47 Kyle Darby MD is Attending Physician. rn 13:49 Arm band placed on. tw2 13:50 Triage completed. tw2 13:54 Report given to GUME Roche. tw2 13:57 Jah Webb RN is Primary Nurse. rv 14:10 EKG done, by processing technician. reviewed by Kyle Darby MD. sm3 14:10 Initial lab(s) drawn, by me, sent to lab. First set of blood cultures drawn by me. rv 14:10 No provider procedures requiring assistance completed. Inserted saline lock: 20 gauge rv in right antecubital area, using aseptic technique. Blood collected. 14:12 X-ray completed. Portable x-ray completed in exam room. Patient tolerated procedure jb2 well. 14:17 XRAY CXR (1 view) In Process Unspecified. EDMS 14:37 Second set of blood cultures drawn by me. rv 16:36 CT Chest For PE Angio In Process Unspecified. EDMS 16:36 CT completed. Patient tolerated procedure well. Patient moved to CT. Patient moved back vm from CT. 17:03 Hasmukh Pollock MD is Hospitalizing Provider. rn 18:09 Patient admitted, IV remains in place. rv Administered Medications: 14:12 Drug: Xopenex (3) 1.25 mg Route: Inhalation; rv 14:44 Follow up: Response: Marked relief of symptoms rv 14:15 Drug: NS 0.9% 500 ml Route: IV; Rate: bolus; Site: right antecubital; rv 14:44 Follow up: IV Status: Completed infusion; IV Intake: 500ml rv 18:00 Drug: Rocephin - (cefTRIAXone) 1 grams Route: IVPB; Infused Over: 30 mins; Site: right rv antecubital; 18:08 Follow up: IV Status: Completed infusion rv 18:00 Drug: AZITHromycin 500 mg Route: IVPB; Infused Over: 1 hrs; Site: right antecubital; rv 18:08 Follow up: IV Status: Infusion continued upon transfer rv Intake: 14:44 IV: 500ml; Total: 500ml. rv Outcome: 17:04 Decision to Hospitalize by Provider. rn 18:09 Admitted to Med/surg accompanied by tech, via wheelchair, room 230, with chart, Report rv called to [facility] 18:09 Condition: stable 18:09 Instructed on the need for admit. 18:10 Patient left the ED. rv Signatures: Dispatcher [employer] EDMS Peter Gabriel2 Ruth Shannon, RN Kyle Angel MD MD rn Wise, Tara, RN RN 2 Alise Thomas 2 Noy Tovar 3 Jah Webb RN RN rv
--- NOTE | 2018-10-10 17:07 | EDPHYS ---
Physician Documentation [facility] Name: Elva Jenkins Age: 88 yrs Sex: Female : 1930 Arrival Date: 10/10/2018 Time: 13:45 Bed 5 Private MD: ED Physician Kyle Darby HPI: 10/10 13:56 This 88 yrs old Female presents to ER via EMS with complaints of Breathing rn Difficulty, weakness. 13:57 Reports "doesn't feel well", + generalized weakness and sob, began this AM when waking rn up, no fever/new cough/chest pain/vomiting/diarrhea, denies blood in stool. No trauma. . Onset: The symptoms/episode began/occurred this morning. Severity of symptoms: At their worst the symptoms were moderate in the emergency department the symptoms are unchanged. It is unknown whether or not the patient has had similar symptoms in the past. The patient has not recently seen a physician. Historical: - Allergies: 13:48 Asacol; tw2 13:48 Humira; tw2 13:48 Methotrexate; tw2 13:48 Orencia; tw2 13:48 Phenergan; tw2 13:48 Sulfazine; tw2 - Home Meds: 13:54 albuterol sulfate 2.5 mg /3 mL (0.083 %) Inhl nebu 3 mL 3 times per day [Active]; tw2 albuterol sulfate 90 mcg/actuation Inhl HFAA 2 puffs every 6 hours [Active]; atorvastatin 40 mg Oral tab 1 tab once daily [Active]; benzonatate 200 mg Oral cap 1 cap 3 times per day [Active]; famotidine 20 mg Oral tab 1 tab once daily [Active]; levothyroxine 50 mcg tab 1 tab once daily [Active]; melatonin 3 mg Oral tab 2 tab nightly [Active]; paroxetine HCl 40 mg Oral tab 1 tab once daily [Active]; prednisone 5 mg Oral tab 2 tabs once daily [Active]; Spiriva with HandiHaler 18 mcg inhalation CpDv 1 cap once daily [Active]; Symbicort 160-4.5 mcg/actuation inhalation HFAA 2 puffs 2 times per day [Active]; - PMHx: 13:48 Arthritis; COPD; Depression; GERD; Hyperlipidemia; Hypothyroidism; tw2 - PSHx: 13:48 Bladder Sling; Cataract, both eyes; 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 - Social history:: Smoking status: Patient/guardian denies using tobacco. - Ebola Screening: : Patient negative for fever greater than or equal to 101.5 degrees Fahrenheit, and additional compatible Ebola Virus Disease symptoms Patient denies exposure to infectious person Patient denies travel to an Ebola-affected area in the 21 days before illness onset No symptoms or risks identified at this time. - Family history:: not pertinent. - Hospitalizations: : No recent hospitalization is reported. ROS: 13:57 Constitutional: Negative for fever, chills, and weight loss, Eyes: Negative for injury, rn pain, redness, and discharge, Neck: Negative for injury, pain, and swelling, Cardiovascular: + edema, negative for chest pain Respiratory: + sob, negative for cough Abdomen/GI: Negative for new abd pain/diarrhea/blood in stool MS/Extremity: Negative for injury and deformity, Skin: Negative for injury, rash, and discoloration, Neuro: + generalized weakness Exam: 13:57 Constitutional: This is a well developed, well nourished patient who is awake, alert, rn and in no acute distress. Appears anxious Head/Face: Normocephalic, atraumatic. Eyes: Pupils equal round and reactive to light, extra-ocular motions intact. Lids and lashes normal. Conjunctiva and sclera are non-icteric and not injected. Cornea within normal limits. Periorbital areas with no swelling, redness, or edema. ENT: dry MM Cardiovascular: Regular rate and rhythm. No pulse deficits. Respiratory: + mild tachypnea with diminished breath sounds bilateral bases with faint exp wheezing, no retractions Abdomen/GI: soft, mild LLQ tenderness MS/ Extremity: Pulses equal, no cyanosis. Neurovascular intact. Full, normal range of motion. Equal circumference. Neuro: Awake and alert, GCS 15, oriented to person, place, time, and situation. Cranial nerves II-XII grossly intact. Motor strength 5/5 in all extremities. Sensory grossly intact. Cerebellar exam normal. Normal gait. Vital Signs: 13:46 BP 125 / 57; Pulse 82; Resp 17; Temp 99.0(TE); Pulse Ox 98% on R/A; tw2 14:00 BP 119 / 57; Pulse 88; Resp 15; Pulse Ox 97% on R/A; rv 15:00 BP 144 / 56; Pulse 118; Resp 16; Temp 98.2(O); Pulse Ox 99% ; rv 15:59 BP 141 / 60; Pulse 112; Resp 23; Pulse Ox 96% on R/A; rv 17:44 BP 123 / 68; Pulse 94; Resp 19; Temp 98.3; Pulse Ox 98% on R/A; rv MDM: 13:47 Patient medically screened. rn 16:24 ED course: Consulted with Dr. masterson, requests ct PE as he states patient with previous rn blood clot and now off of anticoagulation. . 17:02 Differential Diagnosis pneumonia, COPD, UTI, dehydration. Data reviewed: vital signs, rn nurses notes, lab test result(s), radiologic studies, CT scan, plain films, and as a result, I will admit patient. Counseling: I had a detailed discussion with the patient and/or guardian regarding: the historical points, exam findings, and any diagnostic results supporting the discharge/admit diagnosis, lab results, radiology results, the need for further work-up and treatment in the hospital. Response to treatment: the patient's symptoms have mildly improved after treatment, and as a result, I will admit patient. Admission orders: after a detailed discussion of the patient's condition and case, the admit orders are written by me. ED course: Possible early infiltrate on CT PE, neg PE, will admit to [facility] Masterson for COPD exacerbation and possible pneumonia.. 10/10 13:54 Order name: Blood Culture Adult (2) rn 10/10 13:54 Order name: BMP; Complete Time: 14:51 rn 10/10 13:54 Order name: CBC with Diff; Complete Time: 14:50 rn 10/10 13:54 Order name: Hepatic Function; Complete Time: 14:51 rn 10/10 13:54 Order name: Lipase; Complete Time: 14:51 rn 10/10 13:54 Order name: Magnesium; Complete Time: 14:51 rn 10/10 13:54 Order name: XRAY CXR (1 view); Complete Time: 14:50 rn 10/10 13:54 Order name: NT PRO-BNP; Complete Time: 14:51 rn 10/10 13:54 Order name: Troponin (emerg Dept Use Only); Complete Time: 14:51 rn 10/10 16:07 Order name: Urine Culture rn 10/10 16:07 Order name: Urine Microscopic Only; Complete Time: 16:59 rn 10/10 16:13 Order name: CT Chest For PE Angio; Complete Time: 16:59 rn 10/10 16:17 Order name: Urine Dipstick--Ancillary (enter results) bd 10/10 13:54 Order name: EKG; Complete Time: 13:57 rn 10/10 13:54 Order name: Cardiac monitoring; Complete Time: 14:30 rn 10/10 13:54 Order name: EKG - Nurse/Tech; Complete Time: 14:30 rn 10/10 13:54 Order name: IV Saline Lock; Complete Time: 14:30 rn 10/10 13:54 Order name: Labs collected and sent; Complete Time: 14:30 rn 10/10 13:54 Order name: O2 Per Protocol; Complete Time: 14:30 rn 10/10 13:54 Order name: O2 Sat Monitoring; Complete Time: 14:30 rn 10/10 16:07 Order name: Urine Dipstick-Ancillary (obtain specimen); Complete Time: 16:36 rn Administered Medications: 14:12 Drug: Xopenex (3) 1.25 mg Route: Inhalation; rv 14:44 Follow up: Response: Marked relief of symptoms rv 14:15 Drug: NS 0.9% 500 ml Route: IV; Rate: bolus; Site: right antecubital; rv 14:44 Follow up: IV Status: Completed infusion; IV Intake: 500ml rv 18:00 Drug: Rocephin - (cefTRIAXone) 1 grams Route: IVPB; Infused Over: 30 mins; Site: right rv antecubital; 18:08 Follow up: IV Status: Completed infusion rv 18:00 Drug: AZITHromycin 500 mg Route: IVPB; Infused Over: 1 hrs; Site: right antecubital; rv 18:08 Follow up: IV Status: Infusion continued upon transfer rv Disposition: 10/10/18 17:04 Hospitalization ordered by Hasmukh Masterson for Inpatient Admission. Preliminary diagnosis are Chronic obstructive pulmonary disease with acute lower respiratory infection, Pneumonia, Dehydration. - Bed requested for Telemetry/MedSurg (Inpatient). - Status is Inpatient Admission. rv - Condition is Stable. - Problem is new. - Symptoms have improved. UTI on Admission? No Signatures: Dispatcher [employer] EDMS Jodi Snell, RN RN dw Kyle Darby MD MD rn Wise, Tara, RN RN tw2 Jah Webb RN RN rv Corrections: (The following items were deleted from the chart) 17:26 17:04 Hospitalization Ordered by Hasmukh Masterson MD for Inpatient Admission. Preliminary dw diagnosis is Chronic obstructive pulmonary disease with acute lower respiratory infection; Pneumonia; Dehydration. Bed requested for Telemetry/MedSurg (Inpatient). Status is Inpatient Admission. Condition is Stable. Problem is new. Symptoms have improved. UTI on Admission? No. rn 17:37 17:26 10/10/2018 17:04 Hospitalization Ordered by Hasmukh Masterson MD for Inpatient dw Admission. Preliminary diagnosis is Chronic obstructive pulmonary disease with acute lower respiratory infection; Pneumonia; Dehydration. Bed requested for Telemetry/MedSurg (Inpatient). Status is Inpatient Admission. Condition is Stable. Problem is new. Symptoms have improved. UTI on Admission? No. dw 18:10 17:37 10/10/2018 17:04 Hospitalization Ordered by Hasmukh Masterson MD for Inpatient rv Admission. Preliminary diagnosis is Chronic obstructive pulmonary disease with acute lower respiratory infection; Pneumonia; Dehydration. Bed requested for Telemetry/MedSurg (Inpatient). Status is Inpatient Admission. Condition is Stable. Problem is new. Symptoms have improved. UTI on Admission? No. dw
[2018-10-10 17:20] LABS: Urine Blood TRACE (NEG); Urine Glucose NEGATIVE (NEG); Urine Protein NEGATIVE (NEG); Urine pH 6.5 (5.0-7.0)
[2018-10-10] MEDS ORDERED: ONDANSETRON 4 MG/2 ML VIAL IV PRN (17:55)
[2018-10-10] MEDS ORDERED: IPRATROPIUM BROM 0.5MG/2.5ML NEB PRN (17:55)
[2018-10-10] MEDS ORDERED: ALBUTEROL 2.5 MG/3 ML NEB SOL NEB PRN (17:55)
[2018-10-10] MEDS ORDERED: NA CHLORIDE 0.9% 250 ML ONE (18:14)
[2018-10-10] MEDS ORDERED: CEFTRIAXONE/SWI 1gm 1 GM/10 ML SYR ONE (18:14)
[2018-10-10] MEDS ORDERED: AZITHROMYCIN 500 MG INJ IVPB ONE (18:14)
[2018-10-10 21:18] VITALS: BMI 23.7
[2018-10-10] MEDS ORDERED: ACETAMINOPHEN 325 MG TABLET PO PRN (22:27)
[2018-10-11] MEDS: METHYLPREDNISOLONE 40 MG INJ IV SCH ×3 (00:36→16:49)
[2018-10-11] MEDS ORDERED: CEFTRIAXONE/SWI 1gm 1 GM/10 ML SYR ONE (01:13)
[2018-10-11] MEDS: CEFTRIAXONE/SWI 1gm 1 GM/10 ML SYR IV SCH ×2 (05:14→16:50)
[2018-10-11] MEDS ORDERED: PARoxetine HCl 10 MG TAB PO PRN (07:15)
[2018-10-11] MEDS ORDERED: BENZONATATE 100 MG CAP PO PRN (07:15)
[2018-10-11 07:32] LABS: Potassium 4.5 mmol/L (3.5-5.1)
[2018-10-11 07:40] LABS: Absolute Lymphocytes (CBC) 1.5 K/uL (0.7-4.9); Basophils % 0.2 % (0-1.3); Lymphocytes % 23.3 % (15.3-44.8); MPV 7.2 fL (7.6-11.3); RBC Red Blood Cell Count 4.23 M/uL (3.86-4.86)
[2018-10-11] MEDS: PANTOPRAZOLE 40MG TABLET PO SCH (08:44)
[2018-10-11] MEDS: HOME MED 1 EA UNK (Budesonide/Formoterol Fumarate [Symbicort 160-4.5 Mcg Inhaler] 2 PUFF) IH SCH ×2 (08:45→21:00)
[2018-10-11] MEDS: LEVOTHYROXINE SOD 0.05 MG TABLET PO SCH (08:45)
[2018-10-11] MEDS: [UNRECOGNIZED DRUG - OTHER] PO SCH ×2 (08:45→21:00)
[2018-10-11] MEDS: ENOXAPARIN 40 MG/0.4 ML SQ SCH (08:45)
[2018-10-11] MEDS ORDERED: TIOTROPIUM 5 SPRAYS/INHALER IH SCH (09:00)
--- NOTE | 2018-10-11 10:52 | EKG ---
Test Date: 2018-10-10 Test Time: 13:52:13 Senior Software Quality Engineer: JACQUE MEASUREMENT RESULTS: Intervals: Rate: 83 PA: 148 QRSD: 68 QT: 344 QTc: 404 Junction: P: 81 PA: 148 QRS: 44 T: 70 INTERPRETIVE STATEMENTS: Normal sinus rhythm with sinus arrhythmia Right atrial enlargement Borderline ECG Compared to ECG 08/13/2018 19:57:31 No significant changes Electronically Signed On 10-11-18 10:51:20 CDT by Neri Ward
[2018-10-11] MEDS ORDERED: AZITHROMYCIN IV 250 MG in NA CHLORIDE 0.9% 250 ML IVPB SCH (17:00)
[2018-10-11] MEDS ORDERED: ATORVASTATIN 40 MG TAB PO SCH (21:00)
[2018-10-11] MEDS ORDERED: FAMOTIDINE 20 MG TAB PO SCH (21:00)
[2018-10-11] MEDS ORDERED: MELATONIN 3 MG TABLET PO SCH (21:00)
[2018-10-12] MEDS: METHYLPREDNISOLONE 40 MG INJ IV SCH ×2 (01:04→08:15)
[2018-10-12 03:33] VITALS: O2SAT 96
--- NOTE | 2018-10-12 05:24 | HP ---
Date of Admission: 10/10/2018 Chief Complaint: Shortness of breath. History Of Present Illness: An 88-year-old female patient who came into emergency room yesterday wit h 3 days' history of cough, chest congestion, coughing up some yellowish-colored mucus and shortness of breath. After she was evaluated in the ER, she was admitted to the hospital with pneumonia and ac [place] exacerbation of COPD. Medications: List reviewed. Review of Systems: Respiratory: As mentioned above. All other systems reviewed and negative. Allergies: SHE IS LISTED ALLERGIC TO SULFA CAUSING HEADACHE, RITUXIMAB CAUSING LEG SWELLING, PROM ETHAZINE CAUSING HALLUCINATION AND ARM JERKING, METHOTREXATE CAUSING DYSPNEA, MESALAMINE CAUSING SORE THROAT AND HIVES, ADALIMUMAB CAUSING FACE SWELLING, AND ABATACEPT CAUSING JOINT PAIN. Past Surgical History: Significant for hysterectomy, appendectomy, cholecystectomy, cataract surgery , removal of benign rectal mass on August 02, 2017, done in [place]. Family History: Parents of old age at 99 and 95 years. Sister had stroke and hypertension. Social History: Negative for smoking or alcohol. Past Medical History: Significant for lymphedema of legs, hypertension, hypothyroidism, COPD, chroni c steroid therapy, rheumatoid arthritis, chronic leg edema, hemorrhoid surgery, Clostridium difficile colitis, DVT of leg, pulmonary embolism diagnosed in August 2017. Physical Examination: VITAL SIGNS: This morning, temperature 97.6, pulse 68, respiratory rate 15, blood pressure 137/60, o xygen saturation 94%. Height 4 feet 11 inches, weight 117 pounds. General: Awake, alert, oriented, not in distress. HEENT: Head atraumatic, normocephalic. Conjunctivae nonerythematous. Sclerae white. Mouth, no thr ush or edema noted. Ears/Nose, no mass, lesion, discharge noted. Neck: Supple. No JVD, lymph nodes, bruit, thyromegaly noted. Lungs: Bilateral good equal air entry. Presence of scattered wheezing in both lung stiles. Not usi ng accessory muscles of respiration. Heart: Normal heart sounds, no murmur or gallop. Abdomen: Soft, bowel sounds normal. No guarding, rigidity, tenderness, mass, hepatosplenomegaly, dis tention, or bruit noted. Extremities: Bilateral trace leg edema, nonpitting. Skin: No rash, ulcer, cellulitis. Lymphatics: No lymph node enlargement in neck, supraclavicular, infraclavicular region. Neuro: No focal neurological deficit. Chest: Unremarkable. External Genitalia: Deferred. Rectal: Deferred. Laboratory Data: White count 10.5, hemoglobin 12.9, platelets 250. Sodium 137, potassium 3.9, chlor tonya 103, bicarb 28, BUN 16, creatinine 0.90, glucose 133. Liver function tests unremarkable. Lipase 202. Urinalysis; 1+ esterase, 10-20 wbc, bacteria less than 20. Chest x-ray: No acute intrathoracic changes. CAT scan of the chest per PE protocol. No evidence of any pulmonary embolism, but it does show 2 areas of nodularity in the left lower lobe, not present i 2018 study likely due to either atelectasis or infiltrate and changes of underlying COPD. Impression: 1.Pneumonia. 2.Acute exacerbation of chronic obstructive pulmonary disease. 3.Chronic steroid therapy. 4.Lymphedema, legs. 5.Hypertension. 6.Hypothyroidism. 7.Rheumatoid arthritis. Plan: We will admit patient to hospital for further evaluation and management of this problem. Lexii ent is appropriate for inpatient and is expected to spend 2 midnights in hospital. We will continue home medications per order. Oxygen nebulizer treatment, IV antibiotics, and IV steroids will be give n. Consult Physical Therapy. Ambulation was encouraged. DVT prophylaxis was given using Lovenox. I will see her tomorrow for followup. Possible discharge to go home tomorrow depending on her condit ion and details of plan of treatment discussed with the patient. ARNOL/MAGDA Voice ID: [id number]
[2018-10-12] MEDS: CEFTRIAXONE/SWI 1gm 1 GM/10 ML SYR IV SCH (06:56)
[2018-10-12] MEDS: LEVOTHYROXINE SOD 0.05 MG TABLET PO SCH (06:56)
[2018-10-12] MEDS: PANTOPRAZOLE 40MG TABLET PO SCH (06:56)
[2018-10-12] MEDS: ENOXAPARIN 40 MG/0.4 ML SQ SCH (08:15)
[2018-10-12] MEDS: HOME MED 1 EA UNK (Budesonide/Formoterol Fumarate [Symbicort 160-4.5 Mcg Inhaler] 2 PUFF) IH SCH (08:16)
[2018-10-12] MEDS: [UNRECOGNIZED DRUG - OTHER] PO SCH (08:16)
[2018-10-12 08:58] VITALS: BP 144/67; TEMP 97.1
--- NOTE | 2018-10-13 05:07 | DS ---
Date of Discharge: 10/12/2018 Disposition: Discharged to go home. Physical Examination: HEENT: Unremarkable. Lungs: Clear to auscultation. Heart: Sounds normal. Abdomen: Soft. Bowel sounds normal. No guarding, rigidity, tenderness, or distention. Extremities: No leg edema. Laboratory Data: Yesterday, white count 6.4, hemoglobin 14.3, and platelets 261. Yesterday, sodium 142, potassium 4.5, chloride 108, bicarb 29, BUN 12, creatinine 0.92, glucose 127. Hospital Course: An 88-year-old female patient who has COPD, on chronic steroid therapy, came into [facility] emergency room with shortness of breath. Please see dictated H and P for more information. After patient was evaluated in the ER, she was admitted to the hospital with pneumonia problem. Her chest x-ray was negative for any acute changes. CT scan of the chest per PE protocol showed no evidence o f pulmonary embolism, but shows 2 small area of nodularity in the left lower lobe, not present in 201 8 study, likely due to atelectasis or infiltrate with underlying changes of COPD. She was started on IV antibiotic, which is azithromycin and ceftriaxone. Overall condition improved. This morning whe n I saw her, she was feeling much better, ambulating well without any problem and medically stable fo r discharge. Discharge Diagnoses: 1.Pneumonia. 2.Acute exacerbation of chronic obstructive pulmonary disease. 3.Chronic steroid therapy. 4.Lymphedema, legs. 5.Hypertension. 6.Hypothyroidism. 7.Rheumatoid arthritis. Discharge Medications And Instructions: Continue all prior home medications, except do not take pred nisone 5 mg 2 times a day dose and patient to start taking following new medication prescription: 1.Azithromycin 250 mg 1 tablet by mouth daily with food for 5 days. 2.Cefuroxime 250 mg, take 1 tablet by mouth 2 times a day with food for 7 days. 3.Prednisone 10 mg, patient to take 2 tablets by mouth 2 times a day for 4 days, then 1 tablet by mo uth 2 times a day for 4 days, then stop and after stopping this, start taking prednisone 5 mg 2 times a day. Followup: Follow up in my office per scheduled appointment. ARNOL/MAGDA Voice ID: [id number] Report ID: [id number]
== END 2018-10-12 09:55 | disposition home or self-care (01) ==
LOC: ER 13:44 → ERHOLD 17:08 → INTOOBSV 17:08 → 2ND 18:02
PROVIDERS: ADMIT Internal Medicine; ATTEND Internal Medicine
DX: J44.0 Chronic obstructive pulmonary disease with (acute) lower respiratory infection (principal); J18.9 Pneumonia, unspecified organism; J44.1 Chronic obstructive pulmonary disease with (acute) exacerbation; Z79.52 Long term (current) use of systemic steroids; I89.0 Lymphedema, not elsewhere classified; I10 Essential (primary) hypertension; E03.9 Hypothyroidism, unspecified; M06.9 Rheumatoid arthritis, unspecified; Z88.2 Allergy status to sulfonamides
CPT/HCPCS: 93005; 87040 ×2; 87088; 85025 ×2; 87086; 80048 ×2; 36415; 83735; 80076; 87077; 87186; 84484; 83690; 83880; 71275; 71045; 97116 ×2; 97161; 94640; 94760 ×4; 96375; 96374; 99285; Q9967; J0456 ×2; J1650; J0696 ×4; J2405; J2920 ×5; G0378 ×2; 81003; 81015

== ENCOUNTER 2018-10-30 13:00 | Emergency (ER) | payer OTHER ==
--- OUTSIDE RECORDS SUMMARY | 2018-10-30 13:03 | XMS REPORT | Clinical Summary ---
:1930 Author Organization [facility] Address [address] [place] [address] Care Team Providers Name Role Phone Hasmukh [...] RHYTHM STRIP - SCAN 02/09/2018 2:43 PM DIE FINISHER after 10/29/2017 Results RHYTHM STRIP - SCAN (02/09/2018 2:43 PM DIE FINISHER) Narrative Performed At after 10/29/2017 Insurance Payer Benefit Plan / Group Subscriber ID Type Phone Address [facility] - MEDICARE [place] MEDICARE HMO xxxxxxxxx MGD CARE [facility] [place] PPO OPTIONS xxxxxxxxx PPO Advance Directives For more information, please contact:[address] [phone] Code Status Date Activated Date Inactivated Comments [...]
--- OUTSIDE RECORDS SUMMARY | 2018-10-30 13:03 | XMS REPORT | Clinical Summary ---
:1930 Author Organization [facility] Address [address] [place] [address] Care Team Providers Name Role Phone Asked, No Pcp Primary Care Provider Unavailable Allergies Active Allergy Reactions Severity Noted Date Comments Mesalamine Itching 03/31/2017 Adalimumab Swelling, Shortness Of Breath High 02/18/2016 Methotrexate Shortness Of Breath High 03/31/2017 Abatacept Other (See Comments) 02/18/2016 Joint pains Promethazine Other (See Comments) 03/31/2017 Sulfasalazine Anaphylaxis High 03/31/2017 Medications Medication Sig Dispensed Refills Start End Date Status Date ALPRAZolam (XANAX) Take 0.25 mg by 0 [...] needed for sleep. lisinopril Take 1 tablet 30 tablet 0 Active (PRINIVIL,ZESTRIL) (20 mg total) by 8 20 mg tablet mouth daily for 30 days. lisinopril Take 10 mg by 0 03/02/20 Discontinued (PRINIVIL,ZESTRIL) mouth daily. 18 (Stop Taking at 10 mg tablet Discharge) furosemide (LASIX) Take 20 mg by 0 03/02/20 Discontinued 20 mg tablet mouth 2 (two) 18 (Stop Taking at times a day. Discharge) rivaroxaban Take 20 mg by 0 03/02/20 Discontinued (XARELTO) 20 mg mouth daily. 18 (Stop Taking at tablet Discharge) torsemide Take 1 tablet 30 tablet 11 04/01/19 (DEMADEX) 20 MG (20 mg total) by 8 19 tablet mouth daily for 30 days. [...] Jose Alberto Ayala MD Hiatal hernia after 10/29/2017 Family History Medical History Relation Name Comments [...] Vital Signs Vital Sign Reading Time Taken Comments Blood Pressure 132/60 03/02/2018 12:02 PM BLOOD DONOR UNIT ASSISTANT Pulse 78 03/02/2018 12:02 PM BLOOD DONOR UNIT ASSISTANT Temperature 36.1 C (97 F) 03/02/2018 12:02 PM BLOOD DONOR UNIT ASSISTANT Respiratory Rate 14 03/02/2018 12:02 PM BLOOD DONOR UNIT ASSISTANT Oxygen Saturation 93% 03/02/2018 12:02 PM BLOOD DONOR UNIT ASSISTANT Inhaled Oxygen Concentration - - Weight 51.1 kg (112 lb 9.6 oz) 03/02/2018 5:13 AM BLOOD DONOR UNIT ASSISTANT Height - - Body Mass Index 22.74 04/12/2017 12:01 PM BLOOD DONOR UNIT ASSISTANT Plan of Treatment Health Maintenance Due Date Last Done Comments SHINGLES VACCINES (#1) 1981 65+ PNEUMOCOCCAL VACCINE (1 of 2 - PCV13) 1996 INFLUENZA VACCINE 10/12/2018 Implants Implanted Type Area Field Producer Device Identifier Shelf Expiration Model / Date Serial / Lot Reveal Linq-02/02/2016 Implanted: Qty: 1 on 02/02/2016 Description:Heart monitor implant ( s/p Loop LINQ) IMPLANTED By DR [address]AN L[address] at [facility]. Procedures Procedure Name Priority Date/Time Associated Comments Diagnosis ESTIMATED GFR Routine 03/02/2018 3:55 Results for this AM BLOOD DONOR UNIT ASSISTANT procedure are in the results section. THYROID STIMULATING Routine 03/02/2018 3:55 Results for this HORMONE AM BLOOD DONOR UNIT ASSISTANT procedure are in the results section. HC COMPLETE BLD COUNT Routine 03/02/2018 3:55 Results for this W/AUTO DIFF AM BLOOD DONOR UNIT ASSISTANT procedure are in the results section. BASIC METABOLIC PANEL Routine 03/02/2018 3:55 Results for this AM BLOOD DONOR UNIT ASSISTANT procedure are in the results section. US DUPLEX VENOUS LOWER Routine 03/01/2018 11:47 Results for this EXTREMITY BILATERAL AM BLOOD DONOR UNIT ASSISTANT procedure are in the results section. ECHOCARDIOGRAM 2D Routine 03/01/2018 7:35 Results for this COMPLETE W MMODE AM BLOOD DONOR UNIT ASSISTANT procedure are in SPECTRAL COLOR DOPPLER the results (37310) section. CBC WITH PLATELET AND Routine 03/01/2018 4:39 Results for this DIFFERENTIAL AM BLOOD DONOR UNIT ASSISTANT procedure are in the results section. ESTIMATED GFR Routine 03/01/2018 4:00 Results for this AM BLOOD DONOR UNIT ASSISTANT procedure are in the results section. PHOSPHORUS LEVEL Routine 03/01/2018 4:00 Results for this AM BLOOD DONOR UNIT ASSISTANT procedure are in the results section. MAGNESIUM LEVEL Routine 03/01/2018 4:00 Results for this AM BLOOD DONOR UNIT ASSISTANT procedure are in the results section. IONIZED CALCIUM Routine 03/01/2018 4:00 Results for this AM BLOOD DONOR UNIT ASSISTANT procedure are in the results section. BASIC METABOLIC PANEL Routine 03/01/2018 4:00 Results for this AM BLOOD DONOR UNIT ASSISTANT procedure are in the results section. CT ANGIOGRAM PE CHEST Routine 02/28/2018 10:59 Results for this PM BLOOD DONOR UNIT ASSISTANT procedure are in the results section. CT ABDOMEN PELVIS WO Routine 02/28/2018 10:59 Results for this CONTRAST PM BLOOD DONOR UNIT ASSISTANT procedure are in the results section. IONIZED CALCIUM Routine 02/28/2018 7:46 Results for this PM BLOOD DONOR UNIT ASSISTANT procedure are in the results section. ESTIMATED GFR Routine 02/28/2018 7:46 Results for this PM BLOOD DONOR UNIT ASSISTANT procedure are in the results section. PHOSPHORUS LEVEL Routine 02/28/2018 7:46 Results for this PM BLOOD DONOR UNIT ASSISTANT procedure are in the results section. COMPREHENSIVE METABOLIC Routine 02/28/2018 7:46 Results for this PANEL PM BLOOD DONOR UNIT ASSISTANT procedure are in the results section. MAGNESIUM LEVEL Routine 02/28/2018 7:46 Results for this PM BLOOD DONOR UNIT ASSISTANT procedure are in the results section. HC COMPLETE BLD COUNT Routine 02/28/2018 7:05 Results for this W/AUTO DIFF PM BLOOD DONOR UNIT ASSISTANT procedure are in the results section. PROTHROMBIN TIME WITH Routine 02/28/2018 7:05 Results for this INR PM BLOOD DONOR UNIT ASSISTANT procedure are in the results section. XR CHEST 1 VW PORTABLE STAT 02/28/2018 6:44 Results for this PM BLOOD DONOR UNIT ASSISTANT procedure are in the results section. TYPE AND SCREEN STAT 02/28/2018 6:20 Results for this PM BLOOD DONOR UNIT ASSISTANT procedure are in the results section. ECG 12-LEAD STAT 02/28/2018 5:57 Results for this PM BLOOD DONOR UNIT ASSISTANT procedure are in the results section. after 10/29/2017 Results Estimated GFR (03/02/2018 3:55 AM BLOOD DONOR UNIT ASSISTANT)Only the most recent of3 resultswithin the time period is included. Estimated GFR 58 (A) mL/min/1.73 [facility] Comment: m2 HOSPITAL CatergoryUnitsInterpretation G1 >=90 Normal or high G2 60-89Mildly decreased D1j45-88Wezpiq to moderately decreased M1w77-30Fuxypxekfg to severely decreased G4 15-29Severely decreased G5 <15Kidney failure The eGFR was calculated using the Chronic Kidney Disease Epidemiology Collaboration (CKD-EPI) equation. Interpretation is based on recommendations of the National Kidney Foundation-Kidney Disease Outcomes Quality Initiative (NKF-KDOQI) published in 2014. Specimen Plasma specimen Performing Organization Address City/State/Zipcode Phone Number [facility] DEPARTMENT OF PATHOLOGY AND [address] [place] [address] GENOMIC MEDICINE [facility] [address] [place] [address] CBC with platelet and differential (03/02/2018 3:55 AM BLOOD DONOR UNIT ASSISTANT)Only the most recent of3 resultswithin the time period is included. Pathologist [facility] WBC 7.03 4.50 - 11.00 [facility] k/uL [facility] RBC 3.52 (L) 4.20 - 5.50 [facility] m/uL [facility] HGB 11.2 (L) 12.0 - 16.0 [facility] g/dL [facility] HCT 33.5 (L) 37.0 - 47.0 % [facility] MCV 95.2 82.0 - 100.0 [facility] MCH 31.8 27.0 - 34.0 pg [facility] MCHC 33.4 31.0 - 37.0 [facility] g/dL [facility] RDW - SD 49.1 37.0 - 55.0 fL [facility] MPV 8.8 8.8 - 13.2 fL [facility] Platelet count 238 150 - 400 k/uL [facility] Nucleated RBC 0.00 /100 WBC [facility] Neutrophils 64.5 39.0 - 69.0 % [facility] Lymphocytes 28.7 25.0 - 45.0 % [facility] Monocytes 6.0 0.0 - 10.0 % [facility] Eosinophils 0.1 0.0 - 5.0 % [facility] Basophils 0.4 0.0 - 1.0 % [facility] Immature granulocytes 0.3Comment: 0.0 - 1.0 % [facility] "Immature HOSPITAL granulocytes" (promyelocytes , myelocytes, metamyelocytes ) Specimen Blood Performing Organization Address [facility] Phone Number [facility] DEPARTMENT OF PATHOLOGY AND [address] [place] [address] Thyroid stimulating hormone (03/02/2018 3:55 AM BLOOD DONOR UNIT ASSISTANT) Pathologist [facility] TSH 1.42 0.27 - 4.20 uIU/mL [facility] Specimen Plasma specimen Performing Organization Address [facility] Phone Number [facility] DEPARTMENT OF PATHOLOGY AND [address] [place] [address] Basic metabolic panel (03/02/2018 3:55 AM BLOOD DONOR UNIT ASSISTANT)Only the most recent of2 resultswithin the time period is included. Sodium 135 135 - 148 mEq/L [facility] Potassium 3.9 3.5 - 5.0 mEq/L [facility] Chloride 94 (L) 98 - 112 mEq/L [facility] CO2 28 24 - 31 mEq/L [facility] Anion gap 13@ANIO 7 - 15 mEq/L [facility] BUN 12 8 - 23 mg/dL [facility] Creatinine 0.89 0.50 - 0.90 mg/dL [facility] Glucose 112 (H) 65 - 99 mg/dL [facility] Calcium 8.5 (L) 8.8 - 10.2 mg/dL [facility] Specimen Plasma specimen Performing Organization Address [facility] Phone Number [facility] DEPARTMENT OF PATHOLOGY AND [address] [place] [address] Us duplex venous lower extremity (03/01/2018 11:47 AM BLOOD DONOR UNIT ASSISTANT) Specimen Narrative Performed At [facility] Vascular Ultrasound Laboratory Lower Extremity Venous Report [address] [place] [address] Pat.Name:ELVA FLOR aGbi.ID:[id number] .Date: 03/01/2018Refer.MD:TOBIAS BLANCO MD Exam Time: 11:16:00 AM Study Type:LE Venous Height:59inDOBAge: 1930,87Y Sex: FEMALESonogrphr: Kevin Barry, RDMS, RVT Pat. Stat.:Inpatient Room:[address] TapeVol: , [facility] - 4: [id number] Echo Event ID:[id number] Order ID:[id number] Reason for Study:Lower extremity swelling. History of [...] Radiology Results In - 03/01/2018 4:41 PM [facility] Vascular Ultrasound Laboratory Lower Extremity Venous Report [address] [address] Pat.Name: ELVA FLOR Pat.ID: [id number] .Date: 03/01/2018 Refer.MD: TOBIAS BLANCO MD Exam Time: 11:16:00 AM Study Type:LE Venous Height: 59in Age: 2 1930,87Y Sex: FEMALE Sonogrphr: Kevin Barry, RDMS, RVT Pat. Stat.:Inpatient Room: [address] Tape Vol: ST, [facility] - 4: [id number] Echo Event ID:[id number] Order ID: [id number] Reason for Study:Lower extremity swelling. History of [...] RPVI Performing Organization Address City/State/Zipcode Phone Number [facility] [address] [place] [address] Echocardiogram complete w contrast and 3D if needed (03/01/2018 7:35 AM BLOOD DONOR UNIT ASSISTANT) Specimen Narrative Performed At [facility] Echocardiography Report [address]Name:ELVA FLOR Pat.ID:[id number] St.Date: 03/01/2018Refer.MD:TOBIAS BLANCO MD Exam Time: 7:07:00 AMStudy Type:Routine Echo Height:59.02in Weight:120lb BSA: 1.49 m2 DOBAge:1930,87Y Sex: FEMALEBP:140/65 HR:78 bpmSonogrphr: Michell Couch RDCS Pat. Stat.:Inpatient Room:[facility] Study Status:Final Echo Event ID:[id number] Order ID:[id number] Reason for Study:Shortness of breath Procedures:2D Echo, [...] RAPof 5 mmHg. MEASUREMENTS: 2D Parasternal Long Krypton LA Ds3.2 cmLVPWd1 cm LVOT 1.8 cmAo An1.8 cm LVIDd3.9 cmIndex2.6 cm/m Ao Rtd 3 cm Index2 cm/m LVIDs2.1 cmLV Tjjq630 g(87-129) LV%fs 45.5 % LVM Index 86.6 g/m2 IVSd 1.1 cmRWT0.5 LA Sng Plane LA Area 15.4 cm2(8.8-23.4) LA Vol39.3 ml Index26.4 ml/m LA LngAx 5.2 cm RA Sng Plane RA Area 12.6 cm2(8.3-19.5) RA Vol27.5 ml Index18.4 ml/m RA LngAx 5.1 cm DOPPLER LVOT Stroke Vol LVOT 1.8 cmLVOT CO5.2 l/min LVOT TVI31.5 cmLVOT CI3.5 l/m/m2 LVOT Tm343 qnboNM88 bpm LVOT SV 80.1 ml Signed 03/01/2018 02:33 PM Lucho Abdullahi M.D. Procedure Note Interface, Radiology Results In - 03/01/2018 2:34 PM BLOOD DONOR UNIT ASSISTANT Echocardiography Report [address] [place] [address] Pat.Name: ELVA FLOR Pat.ID: [id number] .Date: 03/01/2018 Refer.MD: TOBIAS BLANCO MD Exam Time: 7:07:00 AM Study Type:Routine Echo Height: 59.02in Weight: 120lb BSA: 1.49 m2 Age: 2 1930,87Y Sex: FEMALE BP: 140/65 HR: 78 bpm Sonogrphr: Michell Couch RDCS Pat. Stat.:Inpatient Room: [facility] Study Status:Final Echo Event ID:[id number] Order ID: [id number] Reason for Study:Shortness of breath Procedures:2D Echo, [...] of 5 mmHg. MEASUREMENTS: 2D Parasternal Long Krypton LA Ds 3.2 cm LVPWd 1 cm [...] PM Lucho Abdullahi M.D. Performing Organization Address City/[facility] Phone Number [facility] [address] [place] [address] Phosphorus level (03/01/2018 4:00 AM BLOOD DONOR UNIT ASSISTANT)Only the most recent of2 resultswithin the time period is included. Phosphorus 4.0 2.4 - 4.5 mg/dL [facility] Specimen Plasma specimen Performing Organization Address [facility] Phone Number [facility] DEPARTMENT OF PATHOLOGY AND [address] [place] [phone] [place] [address] Magnesium level (03/01/2018 4:00 AM BLOOD DONOR UNIT ASSISTANT)Only the most recent of2 resultswithin the time period is included. Magnesium 1.9 1.6 - 2.4 mg/dL [facility] Specimen Plasma specimen Performing Organization Address [facility] Phone Number [facility] DEPARTMENT OF PATHOLOGY AND [address] [place] [phone] [place] [address] Ionized calcium (03/01/2018 4:00 AM BLOOD DONOR UNIT ASSISTANT)Only the most recent of2 resultswithin the time period is included. pH 7.53 [facility] Ionized calcium 1.04 (L) 1.11 - 1.32 [facility] mmol/L [facility] Specimen Plasma specimen Performing Organization Address [facility] Phone Number [facility] DEPARTMENT OF PATHOLOGY AND [address] [place] [phone] [place] [address] Angiogram Pe Chest (02/28/2018 10:59 PM BLOOD DONOR UNIT ASSISTANT) Specimen Narrative Performed At EXAMINATION: [facility] CT [...] identified. IMPRESSION: No evidence of pulmonary embolus. [facility]-[id number] Procedure Note Interface, Radiology Results Incoming - 02/28/2018 11:31 PM BLOOD DONOR UNIT ASSISTANT EXAMINATION: CT ANGIOGRAM PE CHEST CLINICAL HISTORY: [...] identified. IMPRESSION: No evidence of pulmonary embolus. [facility]-[id number] Performing Organization Address City/State/Zipcode Phone Number [facility] [address] [place] [address] CT Abdomen Pelvis Wo Contrast (02/28/2018 10:59 PM BLOOD DONOR UNIT ASSISTANT) Specimen Narrative Performed At Examination:[facility] Clinical History: Shortness of breath [...] abnormality identified in the abdomen or pelvis. [facility]-[id number] Procedure Note Interface, Radiology Results Incoming - 02/28/2018 11:35 PM BLOOD DONOR UNIT ASSISTANT Examination: CT ABDOMEN PELVIS WO CONTRAST Clinical [...] abnormality identified in the abdomen or pelvis. [facility]-[id number] Performing Organization Address City/State/Zipcode Phone Number [facility] [address] [place] [address] Comprehensive metabolic panel (02/28/2018 7:46 PM BLOOD DONOR UNIT ASSISTANT) Sodium 137 135 - 148 [facility] mEq/L HOSPITAL Potassium 3.9 3.5 - 5.0 [facility] mEq/L [facility] Chloride 99 98 - 112 mEq/L [facility] CO2 26 24 - 31 mEq/L [facility] Anion gap 12@ANIO 7 - 15 mEq/L [facility] BUN 15 8 - 23 mg/dL [facility] Creatinine 0.84 0.50 - 0.90 [facility] mg/dL HOSPITAL Glucose 85 65 - 99 mg/dL [facility] Calcium 8.9 8.8 - 10.2 [facility] mg/dL HOSPITAL Protein 6.2 (L) 6.3 - 8.3 g/dL [facility] Comment: HOSPITAL 4.6-7.0 g/dL 1 week 4.4-7.6 g/dL 7 months-1year5.1-7.3 g/dL 1-2 years5.6-7.5 g/dL >3 years6.0-8.0 g/dL 18-150 6.3-8.3 g/dL Albumin 3.1 (L) 3.5 - 5.0 g/dL [facility] A/G ratio 1.0 0.7 - 3.8 [facility] Alkaline phosphatase 62 35 - 104 U/L [facility] AST 27 10 - 35 U/L [facility] ALT 26 5 - 50 U/L [facility] Total bilirubin 0.8 0.0 - 1.2 [facility] mg/dL [facility] Specimen Plasma specimen Performing Organization Address City/[facility] Hospital[facility] Phone Number [facility] DEPARTMENT OF PATHOLOGY AND [address] [place] [phone] [address] Prothrombin time with INR (02/28/2018 7:05 PM BLOOD DONOR UNIT ASSISTANT) Prothrombin time 14.0 11.5 - 14.5 [facility] INR 1.1 [facility] Comment: [facility] International Normalized Ratio (INR) is a therapeutic HOSPITAL monitoring tool for patients who are stable on oral anticoagulant therapy. An INR of 2.0-3.0 is suggested for deep vein thrombosis/pulmonary embolism. Specimen Blood Performing Organization Address City/[facility] Phone Number [facility] DEPARTMENT OF PATHOLOGY AND [address] [place] [address] [address] XR Chest 1 Vw Portable (02/28/2018 6:44 PM BLOOD DONOR UNIT ASSISTANT) Specimen Narrative Performed At EXAMINATION:XR CHEST 1 VW PORTABLE [facility] CLINICAL HISTORY:Shortness of breath COMPARISON:04/12/2017 IMPRESSION: Chronic appearing interstitial lung markings. No consolidations, effusions, or pneumothorax. Calcified granuloma is seen of the right lung base. Cardiomediastinal silhouette is within normal limits. A device projects over the left heart. No acute osseous abnormalities. [facility]-[id number] Procedure Note Interface, Radiology Results Incoming - 02/28/2018 6:58 PM BLOOD DONOR UNIT ASSISTANT EXAMINATION: XR CHEST 1 VW PORTABLE CLINICAL HISTORY: Shortness of breath COMPARISON: 04/12/2017 IMPRESSION: Chronic appearing interstitial lung markings. No consolidations, effusions, or pneumothorax. Calcified granuloma is seen of the right lung base. Cardiomediastinal silhouette is within normal limits. A device projects over the left heart. No acute osseous abnormalities. [facility]-[id number] Performing Organization Address City/State/Zipcode Phone Number [facility] [address] [place] [address] Type and screen (02/28/2018 6:20 PM BLOOD DONOR UNIT ASSISTANT) ABO grouping A [facility] Rh type POS [facility] Antibody screen (gel) NEG [facility] Specimen Blood Performing Organization Address City/State/Zipcode Phone Number [facility] DEPARTMENT OF PATHOLOGY AND [address] [place] [address] GENOMIC MEDICINE [facility] [address] [place] [address] ECG 12 lead (02/28/2018 5:57 PM BLOOD DONOR UNIT ASSISTANT) Ventricular rate 60 [facility] Atrial rate 60 [facility] [place] interval 128 [facility] QRSD interval 70 [...] BY52 BPM-Nonspecific T wave abnormality no longer [facility] evident in Inferior leads- Specimen Narrative Performed At Performing Organization Address City/State/Zipcode Phone Number [facility] MUSE [address] [place] [address] after 10/29/2017 Advance Directives For more information, please contact: [phone] Type Date Recorded Patient Napkin Band Wrapper Explanation Advance Directives, Living Will 03/31/2017 5:13 PM and Medical Power of Lumber Bearer
--- OUTSIDE RECORDS SUMMARY | 2018-10-30 13:04 | XMS REPORT ---
:1930 [facility] Address [address] [place] [address] Dr. Marsh [address] [place] [id number] Care Team Providers Name Role Phone KIM MKCEON ZARI Unavailable Unavailable RICARDO WILSON Unavailable Unavailable Problems This patient has no known problems. Allergies, Adverse Reactions, Alerts This patient has no known allergies or adverse reactions. Medications This patient has no known medications. Results Test Description Test Time Test Comments Text Results Atomic Results Result Comments TISSUE EXAM 2017-09-20 16:22:00 Surgical Pathology Report Case: [id number] Authorizing Provider: Misha Calloway MD Collected: 09/16/2017 1538 Ordering Location: [address] Received: 09/19/2017 0820 Service Pathologist: Larry Cohn MD Specimen: Polyp, Colon - Rectosigmoid, POLYP TAKEN BY HOT SNARE RECTO-SIGMOID, POLYPECTOMY- TUBULAR ADENOMA- CAUTERIZED EDGE, NEGATIVE FOR ADENOMATOUS CHANGE Signing Pathologist Direct Phone Line: [phone] signed by Larry Cohn MD on 09/20/2017 at 4:22 [id number] bleedRectosigmoid colon polypThe specimen is received in [...] Value Reference Range Comments MAGNESIUM (BEAKER) (test eazi=021) 1.9 mg/dL 1.6-2.6 BASIC METABOLIC [id number] 07:32:00 Test Item Value Reference Range Comments SODIUM (BEAKER) (test 138 meq/L 136-145 qngc=996) POTASSIUM (BEAKER) (test 4.2 meq/L 3.5-5.1 zotm=259) CHLORIDE (BEAKER) (test 106 meq/L 98-107 ukby=784) CO2 (BEAKER) (test 25 meq/L 22-29 qztw=960) BLOOD UREA NITROGEN 6 mg/dL 7-21 (BEAKER) (test hlwn=276) CREATININE (BEAKER) (test 0.66 mg/dL 0.57-1.25 mqln=417) GLUCOSE RANDOM (BEAKER) 76 mg/dL 70-105 (test vfjv=623) CALCIUM (BEAKER) (test 8.4 mg/dL 8.4-10.2 pkrh=207) EGFR (BEAKER) (test 85 mL/min/1.73 sq m ESTIMATED GFR IS NOT oads=7174) ACCURATE CREATININE CLEARANCE IN PREDICTING GLOMERULAR FILTRATION RATE. ESTIMATED GFR IS NOT APPLICABLE FOR DIALYSIS PATIENTS. [id number] 06:42:00 Test Item Value Reference Range Comments PROTIME (BEAKER) (test jmpe=090) 20.8 seconds 11.7-14.7 INR (BEAKER) (test euzt=353) 1.8 <=5.9 PARTIAL THROMBOPLASTIN TIME (BEAKER) (test 36.1 seconds 22.5-36.0 xdve=779) RECOMMENDED COUMADIN/WARFARIN INR THERAPY RANGESSTANDARD DOSE: 2.0 - 3.0 Includes: PROPHYLAXIS forvenous thrombosis, systemic embolization; TREATMENT for venous thrombosis and/or pulmonary embolus.HIGH RISK: Target INR is 2.5-3.5 for patients with mechanical heart valves.CBC W/PLT COUNT & AUTO [id number] 06:41:00 Test Item Value Reference Range Comments WHITE BLOOD CELL COUNT (BEAKER) (test ndag=431) 5.5 K/ L 3.5-10.5 RED BLOOD CELL COUNT (BEAKER) (test kbpq=280) 3.52 M/ L 3.93-5.22 HEMOGLOBIN (BEAKER) (test wxgr=091) 10.4 GM/DL 11.2-15.7 HEMATOCRIT (BEAKER) (test wbnl=057) 33.1 % 34.1-44.9 MEAN CORPUSCULAR VOLUME (BEAKER) (test gnhi=586) 94.0 fL 79.4-94.8 MEAN CORPUSCULAR HEMOGLOBIN (BEAKER) (test 29.5 pg 25.6-32.2 hsma=342) MEAN CORPUSCULAR HEMOGLOBIN CONC (BEAKER) (test 31.4 GM/DL 32.2-35.5 rpou=773) RED CELL DISTRIBUTION WIDTH (BEAKER) (test 19.8 % 11.7-14.4 ipou=341) PLATELET COUNT (BEAKER) (test rurv=288) 240 K/CU MM 150-450 MEAN PLATELET VOLUME (BEAKER) (test ydiv=462) 8.5 fL 9.4-12.3 NUCLEATED RED BLOOD CELLS (BEAKER) (test 0 /100 WBC 0-0 zeur=302) NEUTROPHILS RELATIVE PERCENT (BEAKER) (test 43 % bmnc=167) LYMPHOCYTES RELATIVE PERCENT (BEAKER) (test 49 % kwpq=701) MONOCYTES RELATIVE PERCENT (BEAKER) (test 7 % kuoq=984) EOSINOPHILS RELATIVE PERCENT (BEAKER) (test 1 % myic=560) BASOPHILS RELATIVE PERCENT (BEAKER) (test 0 % kdkq=073) NEUTROPHILS ABSOLUTE COUNT (BEAKER) (test 2.34 K/ L 1.56-6.13 ufwz=968) LYMPHOCYTES ABSOLUTE COUNT (BEAKER) (test 2.68 K/ L 1.18-3.74 tixz=192) MONOCYTES ABSOLUTE COUNT (BEAKER) (test 0.38 K/ L 0.24-0.36 fsgd=406) EOSINOPHILS ABSOLUTE COUNT (BEAKER) (test 0.05 K/ L 0.04-0.36 otnb=996) BASOPHILS ABSOLUTE COUNT (BEAKER) (test 0.02 K/ L 0.01-0.08 zegf=744) IMMATURE GRANULOCYTES-RELATIVE PERCENT (BEAKER) 0 % 0-1 (test bycu=6785) [id number] 19:07:00 Test Item Value Reference Range Comments MAGNESIUM (BEAKER) (test nmlf=391) 1.9 mg/dL 1.6-2.6 BASIC METABOLIC [id number] 19:07:00 Test Item Value Reference Range Comments SODIUM (BEAKER) (test 137 meq/L 136-145 piwr=545) POTASSIUM (BEAKER) (test 3.8 meq/L 3.5-5.1 xpha=375) CHLORIDE (BEAKER) (test 106 meq/L 98-107 bksi=164) CO2 (BEAKER) (test 23 meq/L 22-29 qvis=009) BLOOD UREA NITROGEN 6 mg/dL 7-21 (BEAKER) (test hlff=862) CREATININE (BEAKER) (test 0.64 mg/dL 0.57-1.25 lygm=376) GLUCOSE RANDOM (BEAKER) 82 mg/dL 70-105 (test hmhl=014) CALCIUM (BEAKER) (test 8.5 mg/dL 8.4-10.2 smjl=142) EGFR (BEAKER) (test 88 mL/min/1.73 sq m ESTIMATED GFR IS NOT pvvi=0231) ACCURATE CREATININE CLEARANCE IN PREDICTING GLOMERULAR FILTRATION RATE. ESTIMATED GFR IS NOT APPLICABLE FOR DIALYSIS PATIENTS. CBC (HEMOGRAM ONLY)2017-09-16 18:38:00 Test Item Value Reference Range Comments WHITE BLOOD CELL COUNT (BEAKER) (test kqnc=816) 6.5 K/ L 3.5-10.5 RED BLOOD CELL COUNT (BEAKER) (test ebti=354) 3.61 M/ L 3.93-5.22 HEMOGLOBIN (BEAKER) (test twsh=557) 10.9 GM/DL 11.2-15.7 HEMATOCRIT (BEAKER) (test gjkd=484) 33.5 % 34.1-44.9 MEAN CORPUSCULAR VOLUME (BEAKER) (test jbfw=133) 92.8 fL 79.4-94.8 MEAN CORPUSCULAR HEMOGLOBIN (BEAKER) (test 30.2 pg 25.6-32.2 tyxm=396) MEAN CORPUSCULAR HEMOGLOBIN CONC (BEAKER) (test 32.5 GM/DL 32.2-35.5 dpni=390) RED CELL DISTRIBUTION WIDTH (BEAKER) (test 19.8 % 11.7-14.4 njfa=858) PLATELET COUNT (BEAKER) (test utfg=806) 239 K/CU MM 150-450 MEAN PLATELET VOLUME (BEAKER) (test quzk=287) 8.7 fL 9.4-12.3 NUCLEATED RED BLOOD CELLS (BEAKER) (test 0 /100 WBC 0-0 vcui=811) [id number] 06:56:00 Test Item Value Reference Range Comments PHOSPHORUS (BEAKER) (test gyge=036) 2.7 mg/dL 2.3-4.7 [id number] 06:56:00 Test Item Value Reference Range Comments MAGNESIUM (BEAKER) (test jrvv=973) 1.9 mg/dL 1.6-2.6 BASIC METABOLIC [id number] 06:56:00 Test Item Value Reference Range Comments SODIUM (BEAKER) (test 139 meq/L 136-145 xzut=099) POTASSIUM (BEAKER) (test 4.1 meq/L 3.5-5.1 isxh=244) CHLORIDE (BEAKER) (test 107 meq/L 98-107 vvyr=651) CO2 (BEAKER) (test 26 meq/L 22-29 lsja=430) BLOOD UREA NITROGEN 11 mg/dL 7-21 (BEAKER) (test zbps=716) CREATININE (BEAKER) (test 0.73 mg/dL 0.57-1.25 okrg=978) GLUCOSE RANDOM (BEAKER) 107 mg/dL 70-105 (test vvhb=215) CALCIUM (BEAKER) (test 8.5 mg/dL 8.4-10.2 ccyy=303) EGFR (BEAKER) (test 76 mL/min/1.73 sq m ESTIMATED GFR IS NOT ijtt=7464) ACCURATE CREATININE CLEARANCE IN PREDICTING GLOMERULAR FILTRATION RATE. ESTIMATED GFR IS NOT APPLICABLE FOR DIALYSIS PATIENTS. HEPATIC FUNCTION [id number] 06:56:00 Test Item Value Reference Range Comments TOTAL PROTEIN (BEAKER) (test wpiv=714) 5.2 gm/dL 6.0-8.3 ALBUMIN (BEAKER) (test ebar=2330) 2.9 g/dL 3.5-5.0 BILIRUBIN TOTAL (BEAKER) (test vmvn=552) 0.8 mg/dL 0.2-1.2 BILIRUBIN DIRECT (BEAKER) (test hrew=891) 0.4 mg/dL 0.1-0.5 ALKALINE PHOSPHATASE (BEAKER) (test eeze=744) 43 U/L 40-150 AST (SGOT) (BEAKER) (test dsew=227) 13 U/L 5-34 ALT (SGPT) (BEAKER) (test snbn=226) 10 U/L 6-55 CALCIUM, [id number] 06:36:00 Test Item Value Reference Range Comments CALCIUM IONIZED (BEAKER) (test tthe=073) 1.05 mmol/L 1.12-1.27 PH, BLOOD (BEAKER) (test dkdc=7748) 7.46 PROTHROMBIN [id number] 06:35:00 Test Item Value Reference Range Comments PROTIME (BEAKER) (test aode=896) 14.2 seconds 11.7-14.7 INR (BEAKER) (test cvtp=664) 1.1 <=5.9 RECOMMENDED COUMADIN/WARFARIN INR THERAPY RANGESSTANDARD DOSE: 2.0 - 3.0 Includes: PROPHYLAXIS forvenous thrombosis, systemic embolization; TREATMENT for venous thrombosis and/or pulmonary embolus.HIGH RISK: Target INR is 2.5-3.5 for patients with mechanical heart valves.CBC W/PLT COUNT & AUTO [id number] 06:25:00 Test Item Value Reference Range Comments WHITE BLOOD CELL COUNT (BEAKER) (test csxr=509) 9.4 K/ L 3.5-10.5 RED BLOOD CELL COUNT (BEAKER) (test wgir=533) 3.48 M/ L 3.93-5.22 HEMOGLOBIN (BEAKER) (test wysy=225) 10.0 GM/DL 11.2-15.7 HEMATOCRIT (BEAKER) (test egmj=631) 31.1 % 34.1-44.9 MEAN CORPUSCULAR VOLUME (BEAKER) (test nxag=612) 89.4 fL 79.4-94.8 MEAN CORPUSCULAR HEMOGLOBIN (BEAKER) (test 28.7 pg 25.6-32.2 eemc=684) MEAN CORPUSCULAR HEMOGLOBIN CONC (BEAKER) (test 32.2 GM/DL 32.2-35.5 ewvr=961) RED CELL DISTRIBUTION WIDTH (BEAKER) (test 18.3 % 11.7-14.4 tfkx=777) PLATELET COUNT (BEAKER) (test zrak=426) 234 K/CU MM 150-450 MEAN PLATELET VOLUME (BEAKER) (test ffop=465) 8.9 fL 9.4-12.3 NUCLEATED RED BLOOD CELLS (BEAKER) (test 0 /100 WBC 0-0 lzwz=096) NEUTROPHILS RELATIVE PERCENT (BEAKER) (test 70 % trtk=254) LYMPHOCYTES RELATIVE PERCENT (BEAKER) (test 24 % ieak=987) MONOCYTES RELATIVE PERCENT (BEAKER) (test 5 % dozl=316) EOSINOPHILS RELATIVE PERCENT (BEAKER) (test 0 % vxad=256) BASOPHILS RELATIVE PERCENT (BEAKER) (test 0 % cczp=765) NEUTROPHILS ABSOLUTE COUNT (BEAKER) (test 6.54 K/ L 1.56-6.13 hmfn=409) LYMPHOCYTES ABSOLUTE COUNT (BEAKER) (test 2.30 K/ L 1.18-3.74 uwio=932) MONOCYTES ABSOLUTE COUNT (BEAKER) (test 0.50 K/ L 0.24-0.36 uzus=304) EOSINOPHILS ABSOLUTE COUNT (BEAKER) (test 0.03 K/ L 0.04-0.36 bhtj=941) BASOPHILS ABSOLUTE COUNT (BEAKER) (test 0.02 K/ L 0.01-0.08 xwvb=149) IMMATURE GRANULOCYTES-RELATIVE PERCENT (BEAKER) 0 % 0-1 (test zzrg=8109) TISSUE [id number] 14:52:00Surgical Pathology Report Case: [id number] Authorizing Provider: Ricardo Wilson MD Collected: 08/02/2017 1715 Ordering Location: [facility] Endoscopy Received: 08/03/2017 0837 Services Pathologist: Larry Cohn MD Specimen: Rectal, MASS- TAKEN BY ESD, ON WAX, EVALUATE MARGINS RECTAL, 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)- NEGATIVE FOR HIGH GRADE DYSPLASIA OR CARCINOMA- PERIPHERAL MARGINS, NEGATIVE FOR ADENOMATOUS CHANGE Signing Pathologist Direct Phone Line: [phone] signed by Larry Cohn MD on 08/04/2017 at 2:52 [id number] polyp Rectal mass Received in formalin labeled [...] the diagnostic line.CBC W/PLT COUNT & AUTO [id number] 06:19:00 Test Item Value Reference Range Comments WHITE BLOOD CELL COUNT (BEAKER) (test ijdh=838) 15.6 K/ L 3.5-10.5 RED BLOOD CELL COUNT (BEAKER) (test sqcl=883) 3.50 M/ L 3.93-5.22 HEMOGLOBIN (BEAKER) (test vxpj=177) 9.9 GM/DL 11.2-15.7 HEMATOCRIT (BEAKER) (test wjpz=580) 31.4 % 34.1-44.9 MEAN CORPUSCULAR VOLUME (BEAKER) (test feaw=727) 89.7 fL 79.4-94.8 MEAN CORPUSCULAR HEMOGLOBIN (BEAKER) (test 28.3 pg 25.6-32.2 szfw=391) MEAN CORPUSCULAR HEMOGLOBIN CONC (BEAKER) (test 31.5 GM/DL 32.2-35.5 pqll=614) RED CELL DISTRIBUTION WIDTH (BEAKER) (test 18.0 % 11.7-14.4 iotu=522) PLATELET COUNT (BEAKER) (test abzx=724) 223 K/CU MM 150-450 MEAN PLATELET VOLUME (BEAKER) (test oxqz=483) 8.7 fL 9.4-12.3 NUCLEATED RED BLOOD CELLS (BEAKER) (test 0 /100 WBC 0-0 tvwv=983) NEUTROPHILS RELATIVE PERCENT (BEAKER) (test 81 % dhhx=198) LYMPHOCYTES RELATIVE PERCENT (BEAKER) (test 15 % ccna=868) MONOCYTES RELATIVE PERCENT (BEAKER) (test 4 % rkiv=957) EOSINOPHILS RELATIVE PERCENT (BEAKER) (test 0 % mzgq=759) BASOPHILS RELATIVE PERCENT (BEAKER) (test 0 % mmwn=266) NEUTROPHILS ABSOLUTE COUNT (BEAKER) (test 12.56 K/ L 1.56-6.13 ohgp=807) LYMPHOCYTES ABSOLUTE COUNT (BEAKER) (test 2.36 K/ L 1.18-3.74 iuny=027) MONOCYTES ABSOLUTE COUNT (BEAKER) (test 0.56 K/ L 0.24-0.36 drna=578) EOSINOPHILS ABSOLUTE COUNT (BEAKER) (test 0.03 K/ L 0.04-0.36 xcjf=569) BASOPHILS ABSOLUTE COUNT (BEAKER) (test 0.02 K/ L 0.01-0.08 ciha=998) IMMATURE GRANULOCYTES-RELATIVE PERCENT (BEAKER) 0 % 0-1 (test xdbb=8009) HEPATIC FUNCTION [id number] 06:15:00 Test Item Value Reference Range Comments TOTAL PROTEIN (BEAKER) (test xiqn=236) 4.9 gm/dL 6.0-8.3 ALBUMIN (BEAKER) (test wpkv=7457) 2.8 g/dL 3.5-5.0 BILIRUBIN TOTAL (BEAKER) (test duvt=497) 1.1 mg/dL 0.2-1.2 BILIRUBIN DIRECT (BEAKER) (test tvkd=982) 0.5 mg/dL 0.1-0.5 ALKALINE PHOSPHATASE (BEAKER) (test ghhm=947) 42 U/L 40-150 AST (SGOT) (BEAKER) (test usca=523) 15 U/L 5-34 ALT (SGPT) (BEAKER) (test jsrz=283) 12 U/L 6-55 BASIC METABOLIC [id number] 06:15:00 Test Item Value Reference Range Comments SODIUM (BEAKER) (test 139 meq/L 136-145 dwcg=016) POTASSIUM (BEAKER) (test 4.6 meq/L 3.5-5.1 ojug=131) CHLORIDE (BEAKER) (test 108 meq/L 98-107 ccuc=275) CO2 (BEAKER) (test 25 meq/L 22-29 kkrv=271) BLOOD UREA NITROGEN 13 mg/dL 7-21 (BEAKER) (test tlap=422) CREATININE (BEAKER) (test 0.73 mg/dL 0.57-1.25 lqml=674) GLUCOSE RANDOM (BEAKER) 115 mg/dL 70-105 (test oipt=781) CALCIUM (BEAKER) (test 8.5 mg/dL 8.4-10.2 soed=035) EGFR (BEAKER) (test 76 mL/min/1.73 sq m ESTIMATED GFR IS NOT hjei=4940) ACCURATE CREATININE CLEARANCE IN PREDICTING GLOMERULAR FILTRATION RATE. ESTIMATED GFR IS NOT APPLICABLE FOR DIALYSIS PATIENTS. PROTHROMBIN [id number] 05:59:00 Test Item Value Reference Range Comments PROTIME (BEAKER) (test nslj=170) 14.6 seconds 11.7-14.7 INR (BEAKER) (test lkhu=783) 1.1 <=5.9 RECOMMENDED COUMADIN/WARFARIN INR THERAPY RANGESSTANDARD DOSE: 2.0 - 3.0 Includes: PROPHYLAXIS forvenous thrombosis, systemic embolization; TREATMENT for venous thrombosis and/or pulmonary embolus.HIGH RISK: Target INR is 2.5-3.5 for patients with mechanical heart valves.URINALYSIS W/ [id number] 14 :53:00 Test Item Value Reference Range Comments COLOR (BEAKER) (test vjgd=637) Yellow CLARITY (BEAKER) (test sdxj=960) Clear SPECIFIC GRAVITY UA (BEAKER) (test njqi=458) 1.010 1.001-1.035 PH UA (BEAKER) (test nalf=658) 5.5 5.0-8.0 PROTEIN UA (BEAKER) (test rbkd=470) Negative Negative GLUCOSE UA (BEAKER) (test qope=330) Negative Negative KETONES UA (BEAKER) (test fvbc=831) Trace Negative BILIRUBIN UA (BEAKER) (test iuks=438) Negative Negative BLOOD UA (BEAKER) (test nytc=695) Negative Negative NITRITE UA (BEAKER) (test edua=312) Negative Negative LEUKOCYTE ESTERASE UA (BEAKER) (test jxao=124) Negative Negative UROBILINOGEN UA (BEAKER) (test snhm=943) 0.2 mg/dL 0.2-1.0 RBC UA (BEAKER) (test yvhq=767) 1 /HPF WBC UA (BEAKER) (test uorx=053) 3 /HPF MUCUS (BEAKER) (test blke=8874) Few SQUAMOUS EPITHELIAL (BEAKER) (test jisn=604) < /HPF HYALINE CASTS (BEAKER) (test flcd=641) 2 /LPF SOURCE(BEAKER) (test dimv=9971) HEPATIC FUNCTION [id number] 06:31:00 Test Item Value Reference Range Comments TOTAL PROTEIN (BEAKER) (test nvbp=774) 5.2 gm/dL 6.0-8.3 ALBUMIN (BEAKER) (test vayw=3543) 3.1 g/dL 3.5-5.0 BILIRUBIN TOTAL (BEAKER) (test aedi=559) 1.1 mg/dL 0.2-1.2 BILIRUBIN DIRECT (BEAKER) (test ahxt=820) 0.5 mg/dL 0.1-0.5 ALKALINE PHOSPHATASE (BEAKER) (test ofgg=745) 47 U/L 40-150 AST (SGOT) (BEAKER) (test kzds=102) 20 U/L 5-34 ALT (SGPT) (BEAKER) (test tabr=194) 15 U/L 6-55 BASIC METABOLIC [id number] 06:31:00 Test Item Value Reference Range Comments SODIUM (BEAKER) (test 139 meq/L 136-145 ehvb=766) POTASSIUM (BEAKER) (test 2.7 meq/L 3.5-5.1 zagl=204) CHLORIDE (BEAKER) (test 106 meq/L 98-107 jspa=616) CO2 (BEAKER) (test 24 meq/L 22-29 kzyn=304) BLOOD UREA NITROGEN 7 mg/dL 7-21 (BEAKER) (test jvkk=195) CREATININE (BEAKER) (test 0.61 mg/dL 0.57-1.25 uuee=829) GLUCOSE RANDOM (BEAKER) 88 mg/dL 70-105 (test fxiq=281) CALCIUM (BEAKER) (test 8.4 mg/dL 8.4-10.2 edxj=630) EGFR (BEAKER) (test 93 mL/min/1.73 sq m ESTIMATED GFR IS NOT mkpw=1741) ACCURATE CREATININE CLEARANCE IN PREDICTING GLOMERULAR FILTRATION RATE. ESTIMATED GFR IS NOT APPLICABLE FOR DIALYSIS PATIENTS. BASIC METABOLIC [id number] 06:30:00 Test Item Value Reference Range Comments SODIUM (BEAKER) (test 136 meq/L 136-145 igcv=257) POTASSIUM (BEAKER) (test 3.0 meq/L 3.5-5.1 Specimen slightly yena=173) hemolyzed CHLORIDE (BEAKER) (test 106 meq/L 98-107 qqku=115) CO2 (BEAKER) (test 20 meq/L 22-29 bura=004) BLOOD UREA NITROGEN 7 mg/dL 7-21 (BEAKER) (test fald=136) CREATININE (BEAKER) (test 0.61 mg/dL 0.57-1.25 Specimen slightly iarc=331) hemolyzed GLUCOSE RANDOM (BEAKER) 81 mg/dL 70-105 (test womv=108) CALCIUM (BEAKER) (test 8.2 mg/dL 8.4-10.2 qhdn=807) EGFR (BEAKER) (test 93 mL/min/1.73 sq m ESTIMATED GFR IS NOT mjga=6308) ACCURATE CREATININE CLEARANCE IN PREDICTING GLOMERULAR FILTRATION RATE. ESTIMATED GFR IS NOT APPLICABLE FOR DIALYSIS PATIENTS. CBC W/PLT COUNT & AUTO [id number] 06:25:00 Test Item Value Reference Range Comments WHITE BLOOD CELL COUNT (BEAKER) (test ombz=578) 14.6 K/ L 3.5-10.5 RED BLOOD CELL COUNT (BEAKER) (test wgnj=518) 3.75 M/ L 3.93-5.22 HEMOGLOBIN (BEAKER) (test hvcf=830) 10.5 GM/DL 11.2-15.7 HEMATOCRIT (BEAKER) (test mpmm=690) 33.1 % 34.1-44.9 MEAN CORPUSCULAR VOLUME (BEAKER) (test yjwx=491) 88.3 fL 79.4-94.8 MEAN CORPUSCULAR HEMOGLOBIN (BEAKER) (test 28.0 pg 25.6-32.2 blds=927) MEAN CORPUSCULAR HEMOGLOBIN CONC (BEAKER) (test 31.7 GM/DL 32.2-35.5 iowh=192) RED CELL DISTRIBUTION WIDTH (BEAKER) (test 17.5 % 11.7-14.4 astl=233) PLATELET COUNT (BEAKER) (test pilh=237) 246 K/CU MM 150-450 MEAN PLATELET VOLUME (BEAKER) (test ctok=893) 8.9 fL 9.4-12.3 NUCLEATED RED BLOOD CELLS (BEAKER) (test 0 /100 WBC 0-0 rjhk=654) NEUTROPHILS RELATIVE PERCENT (BEAKER) (test 88 % exol=165) LYMPHOCYTES RELATIVE PERCENT (BEAKER) (test 5 % uete=261) MONOCYTES RELATIVE PERCENT (BEAKER) (test 6 % wdqw=893) EOSINOPHILS RELATIVE PERCENT (BEAKER) (test 0 % khuf=210) BASOPHILS RELATIVE PERCENT (BEAKER) (test 0 % zkpp=375) NEUTROPHILS ABSOLUTE COUNT (BEAKER) (test 12.85 K/ L 1.56-6.13 tqgl=305) LYMPHOCYTES ABSOLUTE COUNT (BEAKER) (test 0.71 K/ L 1.18-3.74 pirw=674) MONOCYTES ABSOLUTE COUNT (BEAKER) (test 0.94 K/ L 0.24-0.36 llmn=875) EOSINOPHILS ABSOLUTE COUNT (BEAKER) (test 0.00 K/ L 0.04-0.36 csjt=731) BASOPHILS ABSOLUTE COUNT (BEAKER) (test 0.02 K/ L 0.01-0.08 izoi=961) IMMATURE GRANULOCYTES-RELATIVE PERCENT (BEAKER) 1 % 0-1 (test qwdb=2272) PROTHROMBIN [id number] 06:21:00 Test Item Value Reference Range Comments PROTIME (BEAKER) (test sihu=473) 13.5 seconds 11.7-14.7 INR (BEAKER) (test rcul=641) 1.0 <=5.9 RECOMMENDED COUMADIN/WARFARIN INR THERAPY RANGESSTANDARD DOSE: 2.0 - 3.0 Includes: PROPHYLAXIS forvenous thrombosis, systemic embolization; TREATMENT for venous thrombosis and/or pulmonary embolus.HIGH RISK: Target INR is 2.5-3.5 for patients with mechanical heart valves.
[2018-10-30] MEDS ORDERED: FENTANYL CITR 100 MCG/2 ML ONE (14:00)
[2018-10-30 14:15] LABS: Absolute Lymphocytes (CBC) 2.5 K/uL (0.7-4.9); Basophils % 0.6 % (0-1.3); Hematocrit 35.2 % (36.0-45.0); Lymphocytes % 32.6 % (15.3-44.8); MPV 6.9 fL (7.6-11.3); RBC Red Blood Cell Count 3.64 M/uL (3.86-4.86)
--- NOTE | 2018-10-30 14:24 | RAD REPORT ---
EXAM DESCRIPTION: CT - Head Brain Wo Cont - 10/30/2018 2:14 pm CLINICAL HISTORY: Severe headache COMPARISON: August 2018 TECHNIQUE: Axial 5 mm thick images of the head were obtained without IV contrast. All CT scans are performed using dose optimization technique as appropriate and may include automated exposure control or mA/KV adjustment according to patient size. FINDINGS: No intracranial hemorrhage, mass, edema or shift of mid-line structures. No acute infarcti on changes seen. No abnormal extra-axial fluid collections. Atrophy changes are present relatively mi ld for age. Pattern matches comparison. Ventricles are in proportion. Chronic ischemic changes are pr esent throughout the cerebral white matter. Encephalomalacia is present from a small infarction in th e lateral right frontal lobe. Mastoid air cells and visualized portions of the paranasal sinuses are clear. No acute bony findings. IMPRESSION: No acute intracranial finding. 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
[2018-10-30] MEDS ORDERED: DIPHENHYDRAMINE 50 MG/ML VIAL ONE (14:26)
[2018-10-30] MEDS ORDERED: METOCLOPRAMIDE 10 MG/2mL INJ ONE (14:27)
[2018-10-30 14:31] LABS: BUN Blood Urea Nitrogen 12 mg/dL (7-18); Bicarbonate 29 mmol/L (21-32); Glucose Level 87 mg/dL (74-106); Potassium 3.5 mmol/L (3.5-5.1); Sodium Level 132 mmol/L (136-145)
[2018-10-30 14:34] LABS: C-Reactive Protein < 2.90 mg/L (<3.00)
--- NOTE | 2018-10-30 15:03 | ER ---
Nurse's Notes [facility] Name: Elva Jenkins Age: 88 yrs Sex: Female : 1930 Arrival Date: 10/30/2018 Time: 13:03 Bed 17 Private MD: Diagnosis: Headache Presentation: 10/30 13:03 Presenting complaint: EMS states: from [facility] pt woke up around mid night hj complaining of headache and nausea; denies vomiting; denies weakness, denies abd pain; denies diarrhea; denies F/C; BP- 154/84; HR- 60's; BGL- 104; T- 98.2; 20 g R AC; zofran 4 mg IV given enroute;. Transition of care: patient was not received from another setting of care. Onset of symptoms was October 30, 2018. Risk Assessment: Do you want to hurt yourself or someone else? Patient reports no desire to harm self or others. Initial Sepsis Screen: Does the patient meet any 2 criteria? No. Patient's initial sepsis screen is negative. Does the patient have a suspected source of infection? No. Patient's initial sepsis screen is negative. Care prior to arrival: None. 13:03 Method Of Arrival: EMS: [facility] 13:03 Acuity: TAV[place] 3 hj Triage Assessment: 13:08 Headache History: Denies prior headaches. General: Appears in no apparent distress. hj uncomfortable, slender, Behavior is calm, cooperative, appropriate for age. Pain: Complains of pain in head Pain currently is 8 out of 10 on a pain scale. Pain began 1 day ago. Also complains of nausea. Neuro: Level of Consciousness is awake, alert, obeys commands, Oriented to person, place, time, situation, Appropriate for age. Historical: - Allergies: 13:08 Asacol; hj 13:08 Humira; hj 13:08 Methotrexate; hj 13:08 Orencia; hj 13:08 Phenergan; hj 13:08 Sulfazine; hj - PMHx: 13:08 Arthritis; COPD; Depression; GERD; Hyperlipidemia; Hypothyroidism; hj - PSHx: 13:08 Bladder Sling; Cataract, both eyes; Reveal Insertable Book Sorter; Knee surgery; hj Cholecystectomy; Appendectomy; Hysterectomy; Hernia repair; Rectal Mass Removal; - Immunization history:: Adult Immunizations up to date. - Social history:: Smoking status: Patient/guardian denies using tobacco, Patient/guardian denies using alcohol. - Ebola Screening: : Patient negative for fever greater than or equal to 101.5 degrees Fahrenheit, and additional compatible Ebola Virus Disease symptoms Patient denies exposure to infectious person Patient denies travel to an Ebola-affected area in the 21 days before illness onset. Screenin:08 Abuse screen: Denies threats or abuse. Denies injuries from another. Nutritional hj screening: No deficits noted. Tuberculosis screening: No symptoms or risk factors identified. Fall Risk Secondary diagnosis (15 points). Assessment: 15:09 Reassessment: called [facility] for transport from ED to facility; per [place], be hj here in a few minutes;. Vital Signs: 13:09 BP 142 / 58; Pulse 68; Resp 18; Temp 98.2(O); Pulse Ox 100% on R/A; Weight 54.43 kg; hj Height 5 ft. 2 in. (157.48 cm); Pain 8/10; 14:00 BP 145 / 65; Pulse 69; Resp 18; Pulse Ox 100% on R/A; hj 15:06 BP 165 / 75; Pulse 72; Resp 18; Pulse Ox 100% on R/A; hj 13:09 Body Mass Index 21.95 (54.43 kg, 157.48 cm) ED Course: 13:03 Patient arrived in ED. hj 13:06 Triage completed. hj 13:09 Yayo Garcia MD is Attending Physician. gs 13:09 Arm band placed on right wrist. hj 13:09 Patient has correct armband on for positive identification. Bed in low position. Call light in reach. Side rails up X 1. 13:16 Marco Schmidt, GUME is Primary Nurse. hj 14:11 Maintain EMS IV. Dressing intact. Good blood return noted. Site clean \T\ dry. Gauge \T\ hj site: 20 g RAC. 14:12 CT completed. Patient tolerated procedure well. Patient moved to CT via stretcher. Patient moved back from CT. 14:14 CT Head Brain wo Cont In Process Unspecified. EDMS 15:20 No provider procedures requiring assistance completed. IV discontinued, intact, hj bleeding controlled, No redness/swelling at site. Pressure dressing applied. Administered Medications: 14:04 Drug: fentaNYL (PF) 25 mcg Route: IVP; Site: right antecubital; hj 14:18 Follow up: Response: No adverse reaction hj 14:30 Drug: Benadryl 12.5 mg Route: IVP; Site: right antecubital; hj 14:31 Follow up: Response: No adverse reaction hj 14:30 Drug: Reglan 5 mg Route: IVP; Site: right antecubital; hj 14:31 Follow up: Response: No adverse reaction; Nausea is decreased hj Outcome: 15:02 Discharge ordered by . gs 15:20 Discharged to shelter. Report called to [facility] [place] 15:20 Condition: stable 15:20 Discharge instructions given to patient, shelter, Instructed on Demonstrated understanding of instructions, follow-up care. 15:27 Patient left the ED. Signatures: Dispatcher [employer] EDMS Hiral Lo Henry, RN RN hj Starr, Gregory, MD MD gs Corrections: (The following items were deleted from the chart) 13:10 13:03 Presenting complaint: EMS states: from [facility] pt woke up around mid night hj complaining of headache and nausea; denies vomiting; denies weakness, denies abd pain; denies diarrhea; denies F/C; BP- 154/84; HR- 60's; BGL- 104; T- 98.2; 20 g R AC; hj
--- NOTE | 2018-10-30 15:04 | EDPHYS ---
Physician Documentation [facility] Name: Elva Jenkins Age: 88 yrs Sex: Female : 1930 Arrival Date: 10/30/2018 Time: 13:03 Bed 17 Private MD: ED Physician Yayo Garcia HPI: 10/30 16:21 This 88 yrs old Female presents to ER via EMS with complaints of Headache, gs Nausea. 16:21 The patient complains of pain to the right religion and left religion. The patient gs describes the headache as throbbing. Onset: The symptoms/episode began/occurred acutely, last night. Associated signs and symptoms: Pertinent positives: nausea. Severity of symptoms: At its worst the pain was severe, in the emergency department the pain has improved, moderately. The patient has experienced similar episodes in the past, a few times. The patient has not recently seen a physician. Historical: - Allergies: 13:08 Asacol; hj 13:08 Humira; hj 13:08 Methotrexate; hj 13:08 Orencia; hj 13:08 Phenergan; hj 13:08 Sulfazine; hj - PMHx: 13:08 Arthritis; COPD; Depression; GERD; Hyperlipidemia; Hypothyroidism; hj - PSHx: 13:08 Bladder Sling; Cataract, both eyes; Reveal Insertable Review Nurse; Knee surgery; hj Cholecystectomy; Appendectomy; Hysterectomy; Hernia repair; Rectal Mass Removal; - Immunization history:: Adult Immunizations up to date. - Social history:: Smoking status: Patient/guardian denies using tobacco, Patient/guardian denies using alcohol. - Ebola Screening: : Patient negative for fever greater than or equal to 101.5 degrees Fahrenheit, and additional compatible Ebola Virus Disease symptoms Patient denies exposure to infectious person Patient denies travel to an Ebola-affected area in the 21 days before illness onset. ROS: 16:21 All other systems are negative. gs Exam: 16:21 Head/Face: Normocephalic, atraumatic. Eyes: Pupils equal round and reactive to light, gs extra-ocular motions intact. Lids and lashes normal. Conjunctiva and sclera are non-icteric and not injected. Cornea within normal limits. Periorbital areas with no swelling, redness, or edema. ENT: Nares patent. No nasal discharge, no septal abnormalities noted. Tympanic membranes are normal and external auditory canals are clear. Oropharynx with no redness, swelling, or masses, exudates, or evidence of obstruction, uvula midline. Mucous membranes moist. Neck: Trachea midline, no thyromegaly or masses palpated, and no cervical lymphadenopathy. Supple, full range of motion without nuchal rigidity, or vertebral point tenderness. No Meningismus. Chest/axilla: Normal chest wall appearance and motion. Nontender with no deformity. No lesions are appreciated. Cardiovascular: Regular rate and rhythm with a normal S1 and S2. No gallops, murmurs, or rubs. Normal PMI, no JVD. No pulse deficits. Respiratory: Lungs have equal breath sounds bilaterally, clear to auscultation and percussion. No rales, rhonchi or wheezes noted. No increased work of breathing, no retractions or nasal flaring. Abdomen/GI: Soft, non-tender, with normal bowel sounds. No distension or tympany. No guarding or rebound. No evidence of tenderness throughout. Back: No spinal tenderness. No costovertebral tenderness. Full range of motion. Skin: Warm, dry with normal turgor. Normal color with no rashes, no lesions, and no evidence of cellulitis. MS/ Extremity: Pulses equal, no cyanosis. Neurovascular intact. Full, normal range of motion. Neuro: Awake and alert, GCS 15, oriented to person, place, time, and situation. Cranial nerves II-XII grossly intact. Motor strength 5/5 in all extremities. Sensory grossly intact. Cerebellar exam normal. Normal gait. 16:21 Constitutional: The patient appears alert, awake. Vital Signs: 13:09 BP 142 / 58; Pulse 68; Resp 18; Temp 98.2(O); Pulse Ox 100% on R/A; Weight 54.43 kg; Height 5 ft. 2 in. (157.48 cm); Pain 8/10; 14:00 BP 145 / 65; Pulse 69; Resp 18; Pulse Ox 100% on R/A; hj 15:06 BP 165 / 75; Pulse 72; Resp 18; Pulse Ox 100% on R/A; hj 13:09 Body Mass Index 21.95 (54.43 kg, 157.48 cm) MDM: 13:52 Patient medically screened. 16:21 Differential diagnosis: cerebral vascular accident, migraine, temporal arteritis, gs tension headache, vasomotor headache. Data reviewed: vital signs, nurses notes. Response to treatment: the patient's symptoms have resolved after treatment, and as a result, I will. 10/30 13:56 Order name: CBC with Diff; Complete Time: 14:49 10/30 13:56 Order name: Basic Metabolic Panel; Complete Time: 14:49 10/30 13:56 Order name: C-Reactive Protein; Complete Time: 14:49 10/30 13:56 Order name: CT Head Brain wo Cont; Complete Time: 14:49 10/30 13:56 Order name: EKG; Complete Time: 13:57 10/30 13:56 Order name: EKG - Nurse/Tech; Complete Time: 14:06 Administered Medications: 14:04 Drug: fentaNYL (PF) 25 mcg Route: IVP; Site: right antecubital; hj 14:18 Follow up: Response: No adverse reaction hj 14:30 Drug: Benadryl 12.5 mg Route: IVP; Site: right antecubital; hj 14:31 Follow up: Response: No adverse reaction hj 14:30 Drug: Reglan 5 mg Route: IVP; Site: right antecubital; hj 14:31 Follow up: Response: No adverse reaction; Nausea is decreased hj Disposition: 10/30/18 15:02 Discharged to Home. Impression: Headache. - Condition is Stable. - Discharge Instructions: General Headache Without Cause. - Medication Reconciliation Form, Thank You Letter, Antibiotic Education, Prescription Opioid Use form. - Follow up: Private Physician; When: 2 - 3 days; Reason: Re-evaluation by your physician. Signatures: Dispatcher [employer] EDIN Marco Schmidt RN RN Yayo Ruffin MD MD gs Corrections: (The following items were deleted from the chart) 15:27 15:02 10/30/2018 15:02 Discharged to Home. Impression: Headache. Condition is Stable. hj Forms are Medication Reconciliation Form, Thank You Letter, Antibiotic Education, Prescription Opioid Use. Follow up: Private Physician; When: 2 - 3 days; Reason: Re-evaluation by your physician.
[2018-10-30 17:04] VITALS: TEMP 98.2; O2SAT 100
[2018-10-30 17:07] VITALS: BP 165/75
--- NOTE | 2018-10-31 07:28 | EKG ---
Test Date: 2018-10-30 Test Time: 15:00:47 Chemical Engineering Technician: [place]NER MEASUREMENT RESULTS: Intervals: Rate: 76 IA: 146 QRSD: 80 QT: 396 QTc: 445 [place]: P: 61 IA: 146 QRS: -1 T: 59 INTERPRETIVE STATEMENTS: Normal sinus rhythm with sinus arrhythmia Normal ECG Compared to ECG 10/10/2018 13:52:13 Atrial abnormality no longer present Electronically Signed On 10-31-18 07:26:55 CDT by Neri Ward
== END 2018-10-30 15:27 | disposition home or self-care (01) ==
LOC: ER 13:00
DX: R51 Headache (principal); Z88.8 Allergy status to other drugs, medicaments and biological substances
CPT/HCPCS: 93005; 85025; 80048; 36415; 86140; 70450; 96375; 96374; 99284; J2765; J3010

== ENCOUNTER 2018-11-27 04:51 | Emergency (ER) | payer OTHER ==
--- OUTSIDE RECORDS SUMMARY | 2018-11-27 04:55 | XMS REPORT | Clinical Summary ---
:1930 Author Organization [facility] Address [address] [place] [address] Care Team Providers Name Role Phone Hasmukh [...] RHYTHM STRIP - SCAN 02/09/2018 2:43 PM BUSINESS UNIT LEADER after 11/26/2017 Results RHYTHM STRIP - SCAN (02/09/2018 2:43 PM BUSINESS UNIT LEADER) Narrative Performed At after 11/26/2017 Insurance Payer Benefit Plan / Group Subscriber ID Type Phone Address [facility] [place] MEDICARE HMO xxxxxxxxx [facility] [place] PPO OPTIONS xxxxxxxxx PPO Advance Directives For more information, please contact:[address] [phone] Code Status Date Activated Date Inactivated Comments [...]
--- OUTSIDE RECORDS SUMMARY | 2018-11-27 04:55 | XMS REPORT | Clinical Summary ---
:1930 Author Organization [facility] Address [address] [place] [address] Care Team Providers Name Role Phone Asked, [...] Jose Alberto Ayala MD Hiatal hernia after 11/26/2017 Family History Medical History Relation Name Comments [...] Comments Blood Pressure 132/60 03/02/2018 12:02 PM INVENTORY CONTROLLER Pulse 78 03/02/2018 12:02 PM INVENTORY CONTROLLER Temperature 36.1 C (97 F) 03/02/2018 12:02 PM INVENTORY CONTROLLER Respiratory Rate 14 03/02/2018 12:02 PM INVENTORY CONTROLLER Oxygen Saturation 93% 03/02/2018 12:02 PM INVENTORY CONTROLLER Inhaled Oxygen Concentration - - Weight 51.1 kg (112 lb 9.6 oz) 03/02/2018 5:13 AM INVENTORY CONTROLLER Height - - Body Mass Index 22.74 04/12/2017 12:01 PM INVENTORY CONTROLLER Plan of Treatment Health Maintenance Due Date Last Done Comments SHINGLES VACCINES (#1) 1981 65+ PNEUMOCOCCAL VACCINE (1 of 2 - PCV13) 1996 INFLUENZA VACCINE 10/12/2018 Implants Implanted Type Area Social Media Assistant Device Identifier Shelf Expiration Model / Date Serial / Lot Reveal Linq-02/02/2016 Implanted: Qty: 1 on 02/02/2016 Description:Heart monitor implant ( s/p Loop LINQ) IMPLANTED By DR IVAN LANE at [facility]. Procedures Procedure Name Priority Date/Time Associated Comments Diagnosis ESTIMATED GFR Routine 03/02/2018 3:55 Results for this AM INVENTORY CONTROLLER procedure are in the results section. THYROID STIMULATING Routine 03/02/2018 3:55 Results for this HORMONE AM INVENTORY CONTROLLER procedure are in the results section. HC COMPLETE BLD COUNT Routine 03/02/2018 3:55 Results for this W/AUTO DIFF AM INVENTORY CONTROLLER procedure are in the results section. BASIC METABOLIC PANEL Routine 03/02/2018 3:55 Results for this AM INVENTORY CONTROLLER procedure are in the results section. US DUPLEX VENOUS LOWER Routine 03/01/2018 11:47 Results for this EXTREMITY BILATERAL AM INVENTORY CONTROLLER procedure are in the results section. ECHOCARDIOGRAM 2D Routine 03/01/2018 7:35 Results for this COMPLETE W MMODE AM INVENTORY CONTROLLER procedure are in SPECTRAL COLOR DOPPLER the results (02452) section. CBC WITH PLATELET AND Routine 03/01/2018 4:39 Results for this DIFFERENTIAL AM INVENTORY CONTROLLER procedure are in the results section. ESTIMATED GFR Routine 03/01/2018 4:00 Results for this AM INVENTORY CONTROLLER procedure are in the results section. PHOSPHORUS LEVEL Routine 03/01/2018 4:00 Results for this AM INVENTORY CONTROLLER procedure are in the results section. MAGNESIUM LEVEL Routine 03/01/2018 4:00 Results for this AM INVENTORY CONTROLLER procedure are in the results section. IONIZED CALCIUM Routine 03/01/2018 4:00 Results for this AM INVENTORY CONTROLLER procedure are in the results section. BASIC METABOLIC PANEL Routine 03/01/2018 4:00 Results for this AM INVENTORY CONTROLLER procedure are in the results section. CT ANGIOGRAM PE CHEST Routine 02/28/2018 10:59 Results for this PM INVENTORY CONTROLLER procedure are in the results section. CT ABDOMEN PELVIS WO Routine 02/28/2018 10:59 Results for this CONTRAST PM INVENTORY CONTROLLER procedure are in the results section. IONIZED CALCIUM Routine 02/28/2018 7:46 Results for this PM INVENTORY CONTROLLER procedure are in the results section. ESTIMATED GFR Routine 02/28/2018 7:46 Results for this PM INVENTORY CONTROLLER procedure are in the results section. PHOSPHORUS LEVEL Routine 02/28/2018 7:46 Results for this PM INVENTORY CONTROLLER procedure are in the results section. COMPREHENSIVE METABOLIC Routine 02/28/2018 7:46 Results for this PANEL PM INVENTORY CONTROLLER procedure are in the results section. MAGNESIUM LEVEL Routine 02/28/2018 7:46 Results for this PM INVENTORY CONTROLLER procedure are in the results section. HC COMPLETE BLD COUNT Routine 02/28/2018 7:05 Results for this W/AUTO DIFF PM INVENTORY CONTROLLER procedure are in the results section. PROTHROMBIN TIME WITH Routine 02/28/2018 7:05 Results for this INR PM INVENTORY CONTROLLER procedure are in the results section. XR CHEST 1 VW PORTABLE STAT 02/28/2018 6:44 Results for this PM INVENTORY CONTROLLER procedure are in the results section. TYPE AND SCREEN STAT 02/28/2018 6:20 Results for this PM INVENTORY CONTROLLER procedure are in the results section. ECG 12-LEAD STAT 02/28/2018 5:57 Results for this PM INVENTORY CONTROLLER procedure are in the results section. after 11/26/2017 Results Estimated GFR (03/02/2018 3:55 AM INVENTORY CONTROLLER)Only the most recent of3 resultswithin the time period is included. Estimated GFR 58 (A) mL/min/1.73 [facility] Comment: m2 HOSPITAL CatergoryUnitsInterpretation G1 >=90 Normal or high G2 60-89Mildly decreased Z0i34-55Bwbvvu to moderately decreased E0x60-33Ybzpkwiyfm to severely decreased G4 15-29Severely decreased G5 <15Kidney failure The eGFR was calculated using the Chronic Kidney Disease Epidemiology Collaboration (CKD-EPI) equation. Interpretation is based on recommendations of the National Kidney Foundation-Kidney Disease Outcomes Quality Initiative (NKF-KDOQI) published in 2014. Specimen Plasma specimen Performing Organization Address City/State/Zipcode Phone Number [facility] DEPARTMENT OF PATHOLOGY AND [address] [place] [address] GENOMIC MEDICINE [facility] [address] [place] [address] CBC with platelet and differential (03/02/2018 3:55 AM INVENTORY CONTROLLER)Only the most recent of3 resultswithin the time period is included. Pathologist [facility] WBC 7.03 4.50 - 11.00 [facility] k/uL [facility] RBC 3.52 (L) 4.20 - 5.50 [facility] m/uL [facility] HGB 11.2 (L) 12.0 - 16.0 [facility] g/dL [facility] HCT 33.5 (L) 37.0 - 47.0 % [facility] MCV 95.2 82.0 - 100.0 [facility] MCH 31.8 27.0 - 34.0 pg [facility] MCHC 33.4 31.0 - 37.0 [facility] g/dL [facility] RDW - SD 49.1 37.0 - 55.0 fL [facility] MPV 8.8 8.8 - 13.2 fL [facility] Platelet count 238 150 - 400 k/uL [facility] Nucleated RBC 0.00 /100 WBC [facility] Neutrophils 64.5 39.0 - 69.0 % [facility] Lymphocytes 28.7 25.0 - 45.0 % [facility] Monocytes 6.0 0.0 - 10.0 % [facility] Eosinophils 0.1 0.0 - 5.0 % [facility] Basophils 0.4 0.0 - 1.0 % [facility] Immature granulocytes 0.3Comment: 0.0 - 1.0 % [facility] "Immature HOSPITAL granulocytes" (promyelocytes , myelocytes, metamyelocytes ) Specimen Blood Performing Organization Address [facility] Phone Number [facility] DEPARTMENT OF PATHOLOGY AND [address] [place] [address] Thyroid stimulating hormone (03/02/2018 3:55 AM INVENTORY CONTROLLER) Pathologist [facility] TSH 1.42 0.27 - 4.20 uIU/mL [facility] Specimen Plasma specimen Performing Organization Address [facility] Phone Number [facility] DEPARTMENT OF PATHOLOGY AND [address] [place] [address] Basic metabolic panel (03/02/2018 3:55 AM INVENTORY CONTROLLER)Only the most recent of2 resultswithin the time period is included. Sodium 135 135 - 148 mEq/L [facility] Potassium 3.9 3.5 - 5.0 mEq/L [facility] Chloride 94 (L) 98 - 112 mEq/L [facility] CO2 28 24 - 31 mEq/L [facility] Anion gap 13@ANIO 7 - 15 mEq/L [facility] BUN 12 8 - 23 mg/dL [facility] Creatinine 0.89 0.50 - 0.90 mg/dL [facility] Glucose 112 (H) 65 - 99 mg/dL [facility] Calcium 8.5 (L) 8.8 - 10.2 mg/dL [facility] Specimen Plasma specimen Performing Organization Address [facility] Phone Number [facility] DEPARTMENT OF PATHOLOGY AND [address] [place] [address] Us duplex venous lower extremity (03/01/2018 11:47 AM INVENTORY CONTROLLER) Specimen Narrative Performed At [facility] Vascular Ultrasound Laboratory Lower Extremity Venous Report [address] [place] [address] Pat.Name:ELVA FLOR Gabi.ID:[id number] .Date: 03/01/2018Refer.MD:TOBIAS BLANCO MD Exam Time: 11:16:00 AM Study Type:LE Venous Height:59inDOBAge: 1930,87Y Sex: FEMALESonogrphr: Kevin Barry, RDMS, RVT Pat. Stat.:Inpatient Room:[address] TapeVol: , [facility] - 4: [id number] Echo Event ID:[id number] Order ID:[id number] Reason for Study:Lower extremity swelling. History of [...] Radiology Results In - 03/01/2018 4:41 PM [facility] Vascular Ultrasound Laboratory Lower Extremity Venous Report [id number] [address] Pat.Name: ELVA FLOR Pat.ID: [id number] .Date: 03/01/2018 Refer.MD: TOBIAS BLANCO MD Exam Time: 11:16:00 AM Study Type:LE Venous Height: 59in Age: 2 1930,87Y Sex: FEMALE Sonogrphr: Kevin Barry, RDMS, RVT Pat. Stat.:Inpatient Room: [address] Tape Vol: ST, [facility] - 4: [id number] Echo Event ID:[id number] Order ID: [id number] Reason for Study:Lower extremity swelling. History of [...] RPVI Performing Organization Address City/State/Zipcode Phone Number [facility] [address] [place] [address] Echocardiogram complete w contrast and 3D if needed (03/01/2018 7:35 AM INVENTORY CONTROLLER) Specimen Narrative Performed At [facility] Echocardiography Report [id number]Name:ELVA FLOR Pat.ID:[id number] St.Date: 03/01/2018Refer.MD:TOBIAS BLANCO MD Exam Time: 7:07:00 AMStudy Type:Routine Echo Height:59.02in Weight:120lb BSA: 1.49 m2 DOBAge:1930,87Y Sex: FEMALEBP:140/65 HR:78 bpmSonogrphr: Michell Couch RDCS Pat. Stat.:Inpatient Room:[facility] Study Status:Final Echo Event ID:[id number] Order ID:[id number] Reason for Study:Shortness of breath Procedures:2D Echo, [...] RAPof 5 mmHg. MEASUREMENTS: 2D Parasternal [place] Ds3.2 cmLVPWd1 cm LVOT 1.8 cmAo An1.8 cm LVIDd3.9 cmIndex2.6 cm/m Ao Rtd 3 cm Index2 cm/m LVIDs2.1 cmLV Rwcx779 g(87-129) LV%fs 45.5 % LVM Index 86.6 g/m2 IVSd 1.1 cmRWT0.5 LA Sng Plane LA Area 15.4 cm2(8.8-23.4) LA Vol39.3 ml Index26.4 ml/m LA LngAx 5.2 cm RA Sng Plane RA Area 12.6 cm2(8.3-19.5) RA Vol27.5 ml Index18.4 ml/m RA LngAx 5.1 cm DOPPLER LVOT Stroke Vol LVOT 1.8 cmLVOT CO5.2 l/min LVOT TVI31.5 cmLVOT CI3.5 l/m/m2 LVOT Tm343 zzyiDG84 bpm LVOT SV 80.1 ml Signed 03/01/2018 02:33 PM Lucho Abdullahi M.D. Procedure Note Interface, Radiology Results In - 03/01/2018 2:34 PM INVENTORY CONTROLLER Echocardiography Report [address] [place] [address] Pat.Name: ELVA FLOR Pat.ID: [id number] .Date: 03/01/2018 Refer.MD: TOBIAS BLANCO MD Exam Time: 7:07:00 AM Study Type:Routine Echo Height: 59.02in Weight: 120lb BSA: 1.49 m2 Age: 2 1930,87Y Sex: FEMALE BP: 140/65 HR: 78 bpm Sonogrphr: Michell Couch RDCS Pat. Stat.:Inpatient Room: [facility] Study Status:Final Echo Event ID:[id number] Order ID: [id number] Reason for Study:Shortness of breath Procedures:2D Echo, [...] of 5 mmHg. MEASUREMENTS: 2D Parasternal [place] Ds 3.2 cm LVPWd 1 cm [...] PM Lucho Abdullahi M.D. Performing Organization Address City/[facility] Centercode Phone Number [facility] [address] [place] [address] Phosphorus level (03/01/2018 4:00 AM INVENTORY CONTROLLER)Only the most recent of2 resultswithin the time period is included. Phosphorus 4.0 2.4 - 4.5 mg/dL [facility] Specimen Plasma specimen Performing Organization Address [facility] Phone Number [facility] DEPARTMENT OF PATHOLOGY AND [address] [place] [phone] [place] [address] Magnesium level (03/01/2018 4:00 AM INVENTORY CONTROLLER)Only the most recent of2 resultswithin the time period is included. Magnesium 1.9 1.6 - 2.4 mg/dL [facility] Specimen Plasma specimen Performing Organization Address [facility] Phone Number [facility] DEPARTMENT OF PATHOLOGY AND [address] [place] [id number] [place] [address] Ionized calcium (03/01/2018 4:00 AM INVENTORY CONTROLLER)Only the most recent of2 resultswithin the time period is included. pH 7.53 [facility] Ionized calcium 1.04 (L) 1.11 - 1.32 [facility] mmol/L [facility] Specimen Plasma specimen Performing Organization Address [facility] Phone Number [facility] DEPARTMENT OF PATHOLOGY AND [address] [place] [phone] [place] [address] Angiogram Pe Chest (02/28/2018 10:59 PM INVENTORY CONTROLLER) Specimen Narrative Performed At EXAMINATION: [facility] CT [...] identified. IMPRESSION: No evidence of pulmonary embolus. [facility]-[id number] Procedure Note Interface, Radiology Results Incoming - 02/28/2018 11:31 PM INVENTORY CONTROLLER EXAMINATION: CT ANGIOGRAM PE CHEST CLINICAL HISTORY: [...] identified. IMPRESSION: No evidence of pulmonary embolus. [facility]-[id number] Performing Organization Address City/State/Zipcode Phone Number [facility] [address] [place] [address] CT Abdomen Pelvis Wo Contrast (02/28/2018 10:59 PM INVENTORY CONTROLLER) Specimen Narrative Performed At Examination:CT ABDOMEN PELVIS WO CONTRAST [facility] Clinical History: Shortness of breath [...] abnormality identified in the abdomen or pelvis. [facility]-[id number] Procedure Note Interface, Radiology Results Incoming - 02/28/2018 11:35 PM INVENTORY CONTROLLER Examination: CT ABDOMEN PELVIS WO CONTRAST Clinical [...] abnormality identified in the abdomen or pelvis. [facility]-[id number] Performing Organization Address City/State/Zipcode Phone Number [facility] [address] [place] [address] Comprehensive metabolic panel (02/28/2018 7:46 PM INVENTORY CONTROLLER) Sodium 137 135 - 148 [facility] mEq/L HOSPITAL Potassium 3.9 3.5 - 5.0 [facility] mEq/L [facility] Chloride 99 98 - 112 mEq/L [facility] CO2 26 24 - 31 mEq/L [facility] Anion gap 12@ANIO 7 - 15 mEq/L [facility] BUN 15 8 - 23 mg/dL [facility] Creatinine 0.84 0.50 - 0.90 [facility] mg/dL HOSPITAL Glucose 85 65 - 99 mg/dL [facility] Calcium 8.9 8.8 - 10.2 [facility] mg/dL HOSPITAL Protein 6.2 (L) 6.3 - 8.3 g/dL [facility] Comment: HOSPITAL Fielding 4.6-7.0 g/dL 1 week 4.4-7.6 g/dL 7 months-1year5.1-7.3 g/dL 1-2 years5.6-7.5 g/dL >3 years6.0-8.0 g/dL 18-150 6.3-8.3 g/dL Albumin 3.1 (L) 3.5 - 5.0 g/dL [facility] A/G ratio 1.0 0.7 - 3.8 [facility] Alkaline phosphatase 62 35 - 104 U/L [facility] AST 27 10 - 35 U/L [facility] ALT 26 5 - 50 U/L [facility] Total bilirubin 0.8 0.0 - 1.2 [facility] mg/dL [facility] Specimen Plasma specimen Performing Organization Address City/[facility] Cent[facility]ode Phone Number [facility] DEPARTMENT OF PATHOLOGY AND [address] [place] [address] [address] Prothrombin time with INR (02/28/2018 7:05 PM INVENTORY CONTROLLER) Prothrombin time 14.0 11.5 - 14.5 [facility] INR 1.1 [facility] Comment: SOHAN [facility] International Normalized Ratio (INR) is a therapeutic HOSPITAL monitoring tool for patients who are stable on oral anticoagulant therapy. An INR of 2.0-3.0 is suggested for deep vein thrombosis/pulmonary embolism. Specimen Blood Performing Organization Address City/[facility] Cent[facility]ode Phone Number [facility] DEPARTMENT OF PATHOLOGY AND [address] [place] [address] [address] XR Chest 1 Vw Portable (02/28/2018 6:44 PM INVENTORY CONTROLLER) Specimen Narrative Performed At EXAMINATION:XR CHEST 1 VW PORTABLE [facility] CLINICAL HISTORY:Shortness of breath COMPARISON:04/12/2017 IMPRESSION: Chronic appearing interstitial lung markings. No consolidations, effusions, or pneumothorax. Calcified granuloma is seen of the right lung base. Cardiomediastinal silhouette is within normal limits. A device projects over the left heart. No acute osseous abnormalities. [facility]-[id number] Procedure Note Interface, Radiology Results Incoming - 02/28/2018 6:58 PM INVENTORY CONTROLLER EXAMINATION: XR CHEST 1 VW PORTABLE CLINICAL HISTORY: Shortness of breath COMPARISON: 04/12/2017 IMPRESSION: Chronic appearing interstitial lung markings. No consolidations, effusions, or pneumothorax. Calcified granuloma is seen of the right lung base. Cardiomediastinal silhouette is within normal limits. A device projects over the left heart. No acute osseous abnormalities. [facility]-[id number] Performing Organization Address City/State/Zipcode Phone Number [facility] [address] [place] [address] Type and screen (02/28/2018 6:20 PM INVENTORY CONTROLLER) ABO grouping A [facility] Rh type POS [facility] Antibody screen (gel) NEG [facility] Specimen Blood Performing Organization Address City/State/Zipcode Phone Number [facility] DEPARTMENT OF PATHOLOGY AND [address] [place] [address] GENOMIC MEDICINE [facility] [address] [place] [address] ECG 12 lead (02/28/2018 5:57 PM INVENTORY CONTROLLER) Ventricular rate 60 [facility] Atrial rate 60 [facility] [place] interval 128 [facility] QRSD interval 70 [...] At Performing Organization Address City/State/Zipcode Phone Number [facility] MUSE [address] [place] [address] after 11/26/2017 Advance Directives For more information, please contact: [phone] Type Date Recorded Patient Look Out Tower Fire Watcher Explanation Advance Directives, Living Will 03/31/2017 5:13 PM and Medical Power of Jd Edwards Consultant
--- OUTSIDE RECORDS SUMMARY | 2018-11-27 04:56 | XMS REPORT ---
:1930 [facility] [address] [place] [address] Dr. Marsh [address] [place] [id number] Care Team Providers Name Role Phone KIM MCKEON ZARI Unavailable Unavailable RICARDO WILSON Unavailable Unavailable Problems This patient has no known problems. Allergies, Adverse Reactions, Alerts This patient has no known allergies or adverse reactions. Medications This patient has no known medications. Results Test Description Test Time Test Comments Text Results Atomic Results Result Comments TISSUE EXAM 2017-09-20 16:22:00 Surgical Pathology Report Case: [id number] Authorizing Provider: Misha Calloway MD Collected: 09/16/2017 1538 Ordering Location: [address] Received: 09/19/2017 0820 Service Pathologist: Larry Cohn MD Specimen: Polyp, Colon - Rectosigmoid, POLYP TAKEN BY HOT SNARE RECTO-SIGMOID, POLYPECTOMY- TUBULAR ADENOMA- CAUTERIZED EDGE, NEGATIVE FOR ADENOMATOUS CHANGE Signing Pathologist Direct Phone Line: [phone] signed by Larry Cohn MD on 09/20/2017 at 4:22 [id number] bleedRectosigmoid colon polypThe specimen is received in [...] Value Reference Range Comments MAGNESIUM (BEAKER) (test dbwj=304) 1.9 mg/dL 1.6-2.6 BASIC METABOLIC [id number] 07:32:00 Test Item Value Reference Range Comments SODIUM (BEAKER) (test 138 meq/L 136-145 ipkk=873) POTASSIUM (BEAKER) (test 4.2 meq/L 3.5-5.1 xivx=072) CHLORIDE (BEAKER) (test 106 meq/L 98-107 vrqo=205) CO2 (BEAKER) (test 25 meq/L 22-29 vezz=516) BLOOD UREA NITROGEN 6 mg/dL 7-21 (BEAKER) (test eutl=771) CREATININE (BEAKER) (test 0.66 mg/dL 0.57-1.25 upyv=739) GLUCOSE RANDOM (BEAKER) 76 mg/dL 70-105 (test qttw=831) CALCIUM (BEAKER) (test 8.4 mg/dL 8.4-10.2 iywp=453) EGFR (BEAKER) (test 85 mL/min/1.73 sq m ESTIMATED GFR IS NOT xhkx=8036) ACCURATE CREATININE CLEARANCE IN PREDICTING GLOMERULAR FILTRATION RATE. ESTIMATED GFR IS NOT APPLICABLE FOR DIALYSIS PATIENTS. [id number] 06:42:00 Test Item Value Reference Range Comments PROTIME (BEAKER) (test bgfq=292) 20.8 seconds 11.7-14.7 INR (BEAKER) (test twtk=593) 1.8 <=5.9 PARTIAL THROMBOPLASTIN TIME (BEAKER) (test 36.1 seconds 22.5-36.0 tvlo=232) RECOMMENDED COUMADIN/WARFARIN INR THERAPY RANGESSTANDARD DOSE: 2.0 - 3.0 Includes: PROPHYLAXIS forvenous thrombosis, systemic embolization; TREATMENT for venous thrombosis and/or pulmonary embolus.HIGH RISK: Target INR is 2.5-3.5 for patients with mechanical heart valves.CBC W/PLT COUNT & AUTO [id number] 06:41:00 Test Item Value Reference Range Comments WHITE BLOOD CELL COUNT (BEAKER) (test pkae=028) 5.5 K/ L 3.5-10.5 RED BLOOD CELL COUNT (BEAKER) (test jtyf=271) 3.52 M/ L 3.93-5.22 HEMOGLOBIN (BEAKER) (test qqpn=346) 10.4 GM/DL 11.2-15.7 HEMATOCRIT (BEAKER) (test hxsh=074) 33.1 % 34.1-44.9 MEAN CORPUSCULAR VOLUME (BEAKER) (test qpej=698) 94.0 fL 79.4-94.8 MEAN CORPUSCULAR HEMOGLOBIN (BEAKER) (test 29.5 pg 25.6-32.2 fold=002) MEAN CORPUSCULAR HEMOGLOBIN CONC (BEAKER) (test 31.4 GM/DL 32.2-35.5 ljym=551) RED CELL DISTRIBUTION WIDTH (BEAKER) (test 19.8 % 11.7-14.4 apoh=446) PLATELET COUNT (BEAKER) (test krfb=502) 240 K/CU MM 150-450 MEAN PLATELET VOLUME (BEAKER) (test uzbo=874) 8.5 fL 9.4-12.3 NUCLEATED RED BLOOD CELLS (BEAKER) (test 0 /100 WBC 0-0 aiyo=608) NEUTROPHILS RELATIVE PERCENT (BEAKER) (test 43 % kift=159) LYMPHOCYTES RELATIVE PERCENT (BEAKER) (test 49 % opeb=962) MONOCYTES RELATIVE PERCENT (BEAKER) (test 7 % mjna=540) EOSINOPHILS RELATIVE PERCENT (BEAKER) (test 1 % cemm=059) BASOPHILS RELATIVE PERCENT (BEAKER) (test 0 % usuw=819) NEUTROPHILS ABSOLUTE COUNT (BEAKER) (test 2.34 K/ L 1.56-6.13 gmzj=345) LYMPHOCYTES ABSOLUTE COUNT (BEAKER) (test 2.68 K/ L 1.18-3.74 euic=148) MONOCYTES ABSOLUTE COUNT (BEAKER) (test 0.38 K/ L 0.24-0.36 aecw=220) EOSINOPHILS ABSOLUTE COUNT (BEAKER) (test 0.05 K/ L 0.04-0.36 tgzg=576) BASOPHILS ABSOLUTE COUNT (BEAKER) (test 0.02 K/ L 0.01-0.08 qbtm=395) IMMATURE GRANULOCYTES-RELATIVE PERCENT (BEAKER) 0 % 0-1 (test neod=5638) [id number] 19:07:00 Test Item Value Reference Range Comments MAGNESIUM (BEAKER) (test gyhp=190) 1.9 mg/dL 1.6-2.6 BASIC METABOLIC [id number] 19:07:00 Test Item Value Reference Range Comments SODIUM (BEAKER) (test 137 meq/L 136-145 duzq=271) POTASSIUM (BEAKER) (test 3.8 meq/L 3.5-5.1 mevj=579) CHLORIDE (BEAKER) (test 106 meq/L 98-107 zaqw=483) CO2 (BEAKER) (test 23 meq/L 22-29 jqqy=511) BLOOD UREA NITROGEN 6 mg/dL 7-21 (BEAKER) (test rvbn=144) CREATININE (BEAKER) (test 0.64 mg/dL 0.57-1.25 ndzl=147) GLUCOSE RANDOM (BEAKER) 82 mg/dL 70-105 (test lpop=203) CALCIUM (BEAKER) (test 8.5 mg/dL 8.4-10.2 omxw=317) EGFR (BEAKER) (test 88 mL/min/1.73 sq m ESTIMATED GFR IS NOT otzz=4743) ACCURATE CREATININE CLEARANCE IN PREDICTING GLOMERULAR FILTRATION RATE. ESTIMATED GFR IS NOT APPLICABLE FOR DIALYSIS PATIENTS. CBC (HEMOGRAM ONLY)2017-09-16 18:38:00 Test Item Value Reference Range Comments WHITE BLOOD CELL COUNT (BEAKER) (test fumv=164) 6.5 K/ L 3.5-10.5 RED BLOOD CELL COUNT (BEAKER) (test nden=542) 3.61 M/ L 3.93-5.22 HEMOGLOBIN (BEAKER) (test jwws=402) 10.9 GM/DL 11.2-15.7 HEMATOCRIT (BEAKER) (test fxci=580) 33.5 % 34.1-44.9 MEAN CORPUSCULAR VOLUME (BEAKER) (test awop=572) 92.8 fL 79.4-94.8 MEAN CORPUSCULAR HEMOGLOBIN (BEAKER) (test 30.2 pg 25.6-32.2 xdyq=188) MEAN CORPUSCULAR HEMOGLOBIN CONC (BEAKER) (test 32.5 GM/DL 32.2-35.5 tabc=481) RED CELL DISTRIBUTION WIDTH (BEAKER) (test 19.8 % 11.7-14.4 solv=591) PLATELET COUNT (BEAKER) (test skzn=045) 239 K/CU MM 150-450 MEAN PLATELET VOLUME (BEAKER) (test dkcd=269) 8.7 fL 9.4-12.3 NUCLEATED RED BLOOD CELLS (BEAKER) (test 0 /100 WBC 0-0 tqmw=122) [id number] 06:56:00 Test Item Value Reference Range Comments PHOSPHORUS (BEAKER) (test jcuo=701) 2.7 mg/dL 2.3-4.7 [id number] 06:56:00 Test Item Value Reference Range Comments MAGNESIUM (BEAKER) (test wmhn=778) 1.9 mg/dL 1.6-2.6 BASIC METABOLIC [id number] 06:56:00 Test Item Value Reference Range Comments SODIUM (BEAKER) (test 139 meq/L 136-145 rmxr=252) POTASSIUM (BEAKER) (test 4.1 meq/L 3.5-5.1 kytn=938) CHLORIDE (BEAKER) (test 107 meq/L 98-107 anmp=644) CO2 (BEAKER) (test 26 meq/L 22-29 pdps=235) BLOOD UREA NITROGEN 11 mg/dL 7-21 (BEAKER) (test cepj=571) CREATININE (BEAKER) (test 0.73 mg/dL 0.57-1.25 ccjc=796) GLUCOSE RANDOM (BEAKER) 107 mg/dL 70-105 (test opou=961) CALCIUM (BEAKER) (test 8.5 mg/dL 8.4-10.2 gjpx=502) EGFR (BEAKER) (test 76 mL/min/1.73 sq m ESTIMATED GFR IS NOT zpjt=0576) ACCURATE CREATININE CLEARANCE IN PREDICTING GLOMERULAR FILTRATION RATE. ESTIMATED GFR IS NOT APPLICABLE FOR DIALYSIS PATIENTS. HEPATIC FUNCTION [id number] 06:56:00 Test Item Value Reference Range Comments TOTAL PROTEIN (BEAKER) (test utqn=459) 5.2 gm/dL 6.0-8.3 ALBUMIN (BEAKER) (test ryfr=6953) 2.9 g/dL 3.5-5.0 BILIRUBIN TOTAL (BEAKER) (test tsmb=414) 0.8 mg/dL 0.2-1.2 BILIRUBIN DIRECT (BEAKER) (test odfp=608) 0.4 mg/dL 0.1-0.5 ALKALINE PHOSPHATASE (BEAKER) (test echs=974) 43 U/L 40-150 AST (SGOT) (BEAKER) (test umqu=900) 13 U/L 5-34 ALT (SGPT) (BEAKER) (test twjp=957) 10 U/L 6-55 CALCIUM, [id number] 06:36:00 Test Item Value Reference Range Comments CALCIUM IONIZED (BEAKER) (test hypa=308) 1.05 mmol/L 1.12-1.27 PH, BLOOD (BEAKER) (test rein=4913) 7.46 PROTHROMBIN [id number] 06:35:00 Test Item Value Reference Range Comments PROTIME (BEAKER) (test aqpo=482) 14.2 seconds 11.7-14.7 INR (BEAKER) (test mqtd=581) 1.1 <=5.9 RECOMMENDED COUMADIN/WARFARIN INR THERAPY RANGESSTANDARD DOSE: 2.0 - 3.0 Includes: PROPHYLAXIS forvenous thrombosis, systemic embolization; TREATMENT for venous thrombosis and/or pulmonary embolus.HIGH RISK: Target INR is 2.5-3.5 for patients with mechanical heart valves.CBC W/PLT COUNT & AUTO [id number] 06:25:00 Test Item Value Reference Range Comments WHITE BLOOD CELL COUNT (BEAKER) (test gsng=214) 9.4 K/ L 3.5-10.5 RED BLOOD CELL COUNT (BEAKER) (test qqvf=811) 3.48 M/ L 3.93-5.22 HEMOGLOBIN (BEAKER) (test zkmi=684) 10.0 GM/DL 11.2-15.7 HEMATOCRIT (BEAKER) (test sdcd=647) 31.1 % 34.1-44.9 MEAN CORPUSCULAR VOLUME (BEAKER) (test nusn=535) 89.4 fL 79.4-94.8 MEAN CORPUSCULAR HEMOGLOBIN (BEAKER) (test 28.7 pg 25.6-32.2 deyc=780) MEAN CORPUSCULAR HEMOGLOBIN CONC (BEAKER) (test 32.2 GM/DL 32.2-35.5 xlbj=327) RED CELL DISTRIBUTION WIDTH (BEAKER) (test 18.3 % 11.7-14.4 kyph=933) PLATELET COUNT (BEAKER) (test srmk=460) 234 K/CU MM 150-450 MEAN PLATELET VOLUME (BEAKER) (test jpgx=687) 8.9 fL 9.4-12.3 NUCLEATED RED BLOOD CELLS (BEAKER) (test 0 /100 WBC 0-0 sgkv=873) NEUTROPHILS RELATIVE PERCENT (BEAKER) (test 70 % guxc=558) LYMPHOCYTES RELATIVE PERCENT (BEAKER) (test 24 % bpwk=579) MONOCYTES RELATIVE PERCENT (BEAKER) (test 5 % zkbl=922) EOSINOPHILS RELATIVE PERCENT (BEAKER) (test 0 % cwsg=448) BASOPHILS RELATIVE PERCENT (BEAKER) (test 0 % jacm=984) NEUTROPHILS ABSOLUTE COUNT (BEAKER) (test 6.54 K/ L 1.56-6.13 lzyi=177) LYMPHOCYTES ABSOLUTE COUNT (BEAKER) (test 2.30 K/ L 1.18-3.74 iwlq=856) MONOCYTES ABSOLUTE COUNT (BEAKER) (test 0.50 K/ L 0.24-0.36 calv=701) EOSINOPHILS ABSOLUTE COUNT (BEAKER) (test 0.03 K/ L 0.04-0.36 abqw=244) BASOPHILS ABSOLUTE COUNT (BEAKER) (test 0.02 K/ L 0.01-0.08 haqs=448) IMMATURE GRANULOCYTES-RELATIVE PERCENT (BEAKER) 0 % 0-1 (test tens=6080) TISSUE [id number] 14:52:00Surgical Pathology Report Case: [id number] Authorizing Provider: Ricardo Wilson MD Collected: 08/02/2017 1715 Ordering Location: [facility] Endoscopy Received: 08/03/2017 0837 Services Pathologist: Larry Cohn MD Specimen: Rectal, MASS- TAKEN BY ESD, ON WAX, EVALUATE MARGINS RECTAL, 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)- NEGATIVE FOR HIGH GRADE DYSPLASIA OR CARCINOMA- PERIPHERAL MARGINS, NEGATIVE FOR ADENOMATOUS CHANGE Signing Pathologist Direct Phone Line: [phone] signed by Larry Cohn MD on 08/04/2017 at 2:52 [id number] polyp Rectal mass Received in formalin labeled [...] the diagnostic line.CBC W/PLT COUNT & AUTO [id number] 06:19:00 Test Item Value Reference Range Comments WHITE BLOOD CELL COUNT (BEAKER) (test lnbz=363) 15.6 K/ L 3.5-10.5 RED BLOOD CELL COUNT (BEAKER) (test tfht=903) 3.50 M/ L 3.93-5.22 HEMOGLOBIN (BEAKER) (test uzzz=723) 9.9 GM/DL 11.2-15.7 HEMATOCRIT (BEAKER) (test amfk=030) 31.4 % 34.1-44.9 MEAN CORPUSCULAR VOLUME (BEAKER) (test pyvd=429) 89.7 fL 79.4-94.8 MEAN CORPUSCULAR HEMOGLOBIN (BEAKER) (test 28.3 pg 25.6-32.2 yfyn=655) MEAN CORPUSCULAR HEMOGLOBIN CONC (BEAKER) (test 31.5 GM/DL 32.2-35.5 hjzg=462) RED CELL DISTRIBUTION WIDTH (BEAKER) (test 18.0 % 11.7-14.4 kfdn=629) PLATELET COUNT (BEAKER) (test ihzy=558) 223 K/CU MM 150-450 MEAN PLATELET VOLUME (BEAKER) (test gkud=542) 8.7 fL 9.4-12.3 NUCLEATED RED BLOOD CELLS (BEAKER) (test 0 /100 WBC 0-0 dgwd=480) NEUTROPHILS RELATIVE PERCENT (BEAKER) (test 81 % qjtx=226) LYMPHOCYTES RELATIVE PERCENT (BEAKER) (test 15 % vbhs=841) MONOCYTES RELATIVE PERCENT (BEAKER) (test 4 % ducd=789) EOSINOPHILS RELATIVE PERCENT (BEAKER) (test 0 % ldmx=750) BASOPHILS RELATIVE PERCENT (BEAKER) (test 0 % gvgd=028) NEUTROPHILS ABSOLUTE COUNT (BEAKER) (test 12.56 K/ L 1.56-6.13 veda=458) LYMPHOCYTES ABSOLUTE COUNT (BEAKER) (test 2.36 K/ L 1.18-3.74 qmbm=303) MONOCYTES ABSOLUTE COUNT (BEAKER) (test 0.56 K/ L 0.24-0.36 syoi=813) EOSINOPHILS ABSOLUTE COUNT (BEAKER) (test 0.03 K/ L 0.04-0.36 lbyc=456) BASOPHILS ABSOLUTE COUNT (BEAKER) (test 0.02 K/ L 0.01-0.08 jxdk=567) IMMATURE GRANULOCYTES-RELATIVE PERCENT (BEAKER) 0 % 0-1 (test eaav=8078) HEPATIC FUNCTION [id number] 06:15:00 Test Item Value Reference Range Comments TOTAL PROTEIN (BEAKER) (test zxvc=387) 4.9 gm/dL 6.0-8.3 ALBUMIN (BEAKER) (test bsac=1751) 2.8 g/dL 3.5-5.0 BILIRUBIN TOTAL (BEAKER) (test ogjp=240) 1.1 mg/dL 0.2-1.2 BILIRUBIN DIRECT (BEAKER) (test dpbh=998) 0.5 mg/dL 0.1-0.5 ALKALINE PHOSPHATASE (BEAKER) (test uope=853) 42 U/L 40-150 AST (SGOT) (BEAKER) (test xywn=286) 15 U/L 5-34 ALT (SGPT) (BEAKER) (test jqhs=351) 12 U/L 6-55 BASIC METABOLIC [id number] 06:15:00 Test Item Value Reference Range Comments SODIUM (BEAKER) (test 139 meq/L 136-145 qovl=644) POTASSIUM (BEAKER) (test 4.6 meq/L 3.5-5.1 qqsg=967) CHLORIDE (BEAKER) (test 108 meq/L 98-107 tead=341) CO2 (BEAKER) (test 25 meq/L 22-29 hsms=722) BLOOD UREA NITROGEN 13 mg/dL 7-21 (BEAKER) (test hiiz=320) CREATININE (BEAKER) (test 0.73 mg/dL 0.57-1.25 rqru=604) GLUCOSE RANDOM (BEAKER) 115 mg/dL 70-105 (test xtox=179) CALCIUM (BEAKER) (test 8.5 mg/dL 8.4-10.2 ugdr=041) EGFR (BEAKER) (test 76 mL/min/1.73 sq m ESTIMATED GFR IS NOT bllr=7952) ACCURATE CREATININE CLEARANCE IN PREDICTING GLOMERULAR FILTRATION RATE. ESTIMATED GFR IS NOT APPLICABLE FOR DIALYSIS PATIENTS. PROTHROMBIN [id number] 05:59:00 Test Item Value Reference Range Comments PROTIME (BEAKER) (test lrfa=477) 14.6 seconds 11.7-14.7 INR (BEAKER) (test oamp=557) 1.1 <=5.9 RECOMMENDED COUMADIN/WARFARIN INR THERAPY RANGESSTANDARD DOSE: 2.0 - 3.0 Includes: PROPHYLAXIS forvenous thrombosis, systemic embolization; TREATMENT for venous thrombosis and/or pulmonary embolus.HIGH RISK: Target INR is 2.5-3.5 for patients with mechanical heart valves.URINALYSIS W/ [id number] 14 :53:00 Test Item Value Reference Range Comments COLOR (BEAKER) (test nqlv=760) Yellow CLARITY (BEAKER) (test wtay=755) Clear SPECIFIC GRAVITY UA (BEAKER) (test xoqi=180) 1.010 1.001-1.035 PH UA (BEAKER) (test qbvx=231) 5.5 5.0-8.0 PROTEIN UA (BEAKER) (test ghxy=219) Negative Negative GLUCOSE UA (BEAKER) (test ysev=048) Negative Negative KETONES UA (BEAKER) (test pfmf=764) Trace Negative BILIRUBIN UA (BEAKER) (test ruhp=108) Negative Negative BLOOD UA (BEAKER) (test gdrs=789) Negative Negative NITRITE UA (BEAKER) (test vqal=331) Negative Negative LEUKOCYTE ESTERASE UA (BEAKER) (test atvr=581) Negative Negative UROBILINOGEN UA (BEAKER) (test jntt=664) 0.2 mg/dL 0.2-1.0 RBC UA (BEAKER) (test eygu=732) 1 /HPF WBC UA (BEAKER) (test xjox=903) 3 /HPF MUCUS (BEAKER) (test wknb=4496) Few SQUAMOUS EPITHELIAL (BEAKER) (test yrma=996) < /HPF HYALINE CASTS (BEAKER) (test uazk=659) 2 /LPF SOURCE(BEAKER) (test rwzu=6044) HEPATIC FUNCTION [id number] 06:31:00 Test Item Value Reference Range Comments TOTAL PROTEIN (BEAKER) (test yhew=001) 5.2 gm/dL 6.0-8.3 ALBUMIN (BEAKER) (test tsvx=3594) 3.1 g/dL 3.5-5.0 BILIRUBIN TOTAL (BEAKER) (test kwvy=249) 1.1 mg/dL 0.2-1.2 BILIRUBIN DIRECT (BEAKER) (test rufs=449) 0.5 mg/dL 0.1-0.5 ALKALINE PHOSPHATASE (BEAKER) (test xyjw=160) 47 U/L 40-150 AST (SGOT) (BEAKER) (test dsab=394) 20 U/L 5-34 ALT (SGPT) (BEAKER) (test oval=937) 15 U/L 6-55 BASIC METABOLIC [id number] 06:31:00 Test Item Value Reference Range Comments SODIUM (BEAKER) (test 139 meq/L 136-145 wpgv=724) POTASSIUM (BEAKER) (test 2.7 meq/L 3.5-5.1 pape=433) CHLORIDE (BEAKER) (test 106 meq/L 98-107 ezoz=406) CO2 (BEAKER) (test 24 meq/L 22-29 ujwe=518) BLOOD UREA NITROGEN 7 mg/dL 7-21 (BEAKER) (test ngqr=385) CREATININE (BEAKER) (test 0.61 mg/dL 0.57-1.25 ffub=820) GLUCOSE RANDOM (BEAKER) 88 mg/dL 70-105 (test rjeg=846) CALCIUM (BEAKER) (test 8.4 mg/dL 8.4-10.2 krev=667) EGFR (BEAKER) (test 93 mL/min/1.73 sq m ESTIMATED GFR IS NOT eomv=4185) ACCURATE CREATININE CLEARANCE IN PREDICTING GLOMERULAR FILTRATION RATE. ESTIMATED GFR IS NOT APPLICABLE FOR DIALYSIS PATIENTS. BASIC METABOLIC [id number] 06:30:00 Test Item Value Reference Range Comments SODIUM (BEAKER) (test 136 meq/L 136-145 hjtn=487) POTASSIUM (BEAKER) (test 3.0 meq/L 3.5-5.1 Specimen slightly naxa=016) hemolyzed CHLORIDE (BEAKER) (test 106 meq/L 98-107 kufq=243) CO2 (BEAKER) (test 20 meq/L 22-29 uzab=135) BLOOD UREA NITROGEN 7 mg/dL 7-21 (BEAKER) (test wgsr=541) CREATININE (BEAKER) (test 0.61 mg/dL 0.57-1.25 Specimen slightly tana=917) hemolyzed GLUCOSE RANDOM (BEAKER) 81 mg/dL 70-105 (test zcrn=635) CALCIUM (BEAKER) (test 8.2 mg/dL 8.4-10.2 fjzs=346) EGFR (BEAKER) (test 93 mL/min/1.73 sq m ESTIMATED GFR IS NOT hyos=4387) ACCURATE CREATININE CLEARANCE IN PREDICTING GLOMERULAR FILTRATION RATE. ESTIMATED GFR IS NOT APPLICABLE FOR DIALYSIS PATIENTS. CBC W/PLT COUNT & AUTO [id number] 06:25:00 Test Item Value Reference Range Comments WHITE BLOOD CELL COUNT (BEAKER) (test jebw=616) 14.6 K/ L 3.5-10.5 RED BLOOD CELL COUNT (BEAKER) (test ikkn=781) 3.75 M/ L 3.93-5.22 HEMOGLOBIN (BEAKER) (test bqgg=913) 10.5 GM/DL 11.2-15.7 HEMATOCRIT (BEAKER) (test wkrw=773) 33.1 % 34.1-44.9 MEAN CORPUSCULAR VOLUME (BEAKER) (test ilmw=268) 88.3 fL 79.4-94.8 MEAN CORPUSCULAR HEMOGLOBIN (BEAKER) (test 28.0 pg 25.6-32.2 wahc=738) MEAN CORPUSCULAR HEMOGLOBIN CONC (BEAKER) (test 31.7 GM/DL 32.2-35.5 nmwx=713) RED CELL DISTRIBUTION WIDTH (BEAKER) (test 17.5 % 11.7-14.4 mmdd=684) PLATELET COUNT (BEAKER) (test kxfa=057) 246 K/CU MM 150-450 MEAN PLATELET VOLUME (BEAKER) (test jrkx=053) 8.9 fL 9.4-12.3 NUCLEATED RED BLOOD CELLS (BEAKER) (test 0 /100 WBC 0-0 wlrl=058) NEUTROPHILS RELATIVE PERCENT (BEAKER) (test 88 % ccst=518) LYMPHOCYTES RELATIVE PERCENT (BEAKER) (test 5 % txyf=743) MONOCYTES RELATIVE PERCENT (BEAKER) (test 6 % bjnv=319) EOSINOPHILS RELATIVE PERCENT (BEAKER) (test 0 % xlfu=972) BASOPHILS RELATIVE PERCENT (BEAKER) (test 0 % rnqs=636) NEUTROPHILS ABSOLUTE COUNT (BEAKER) (test 12.85 K/ L 1.56-6.13 tdnj=561) LYMPHOCYTES ABSOLUTE COUNT (BEAKER) (test 0.71 K/ L 1.18-3.74 aymr=052) MONOCYTES ABSOLUTE COUNT (BEAKER) (test 0.94 K/ L 0.24-0.36 seks=092) EOSINOPHILS ABSOLUTE COUNT (BEAKER) (test 0.00 K/ L 0.04-0.36 xinx=695) BASOPHILS ABSOLUTE COUNT (BEAKER) (test 0.02 K/ L 0.01-0.08 teim=660) IMMATURE GRANULOCYTES-RELATIVE PERCENT (BEAKER) 1 % 0-1 (test auyz=3385) PROTHROMBIN [id number] 06:21:00 Test Item Value Reference Range Comments PROTIME (BEAKER) (test iume=055) 13.5 seconds 11.7-14.7 INR (BEAKER) (test tlos=292) 1.0 <=5.9 RECOMMENDED COUMADIN/WARFARIN INR THERAPY RANGESSTANDARD DOSE: 2.0 - 3.0 Includes: PROPHYLAXIS forvenous thrombosis, systemic embolization; TREATMENT for venous thrombosis and/or pulmonary embolus.HIGH RISK: Target INR is 2.5-3.5 for patients with mechanical heart valves.
[2018-11-27 05:18] LABS: Basophils % 0.3 % (0-1.3); Hematocrit 35.6 % (36.0-45.0); Lymphocytes % 40.6 % (15.3-44.8); MPV 7.1 fL (7.6-11.3); RBC Red Blood Cell Count 3.72 M/uL (3.86-4.86)
[2018-11-27 05:30] LABS: ALT/SGPT 17 U/L (12-78); AST/SGOT 16 U/L (15-37); Albumin 2.8 g/dL (3.4-5.0); Alkaline Phosphatase 53 U/L (45-117); BUN Blood Urea Nitrogen 9 mg/dL (7-18); Bicarbonate 29 mmol/L (21-32); Bilirubin Direct 0.3 mg/dL (0-0.2); Bilirubin Total 1.3 mg/dL (0.2-1.0); Glucose Level 78 mg/dL (74-106); Lipase 162 U/L (73-393); Potassium 3.4 mmol/L (3.5-5.1); Protein, Total 5.5 g/dL (6.4-8.2); Sodium Level 138 mmol/L (136-145)
[2018-11-27] MEDS ORDERED: OSELTAMIVIR 75 MG CAP ONE (06:32)
[2018-11-27] MEDS ORDERED: NA CHLORIDE 0.9% 250 ML ONE (07:42)
[2018-11-27] MEDS ORDERED: ACETAMINOPHEN 325 MG TABLET ONE (07:42)
--- NOTE | 2018-11-27 08:40 | ER ---
Nurse's Notes [facility] Name: Elva Jenkins Age: 88 yrs Sex: Female : 1930 Arrival Date: 11/27/2018 Time: 04:54 Bed 7 Private MD: Diagnosis: Influenza due to other identified influenza virus;Nausea Presentation: 11/27 04:56 Presenting complaint: EMS states: Pt coming from [facility] complaining of N/V/D for ea the past 2 days. 18 G IV to right forearm initiated per EMS, NS and Zofran administered. Transition of care: patient was not received from another setting of care. Onset of symptoms was November 27, 2018. Risk Assessment: Do you want to hurt yourself or someone else? Patient reports no desire to harm self or others. Initial Sepsis Screen: Does the patient meet any 2 criteria? No. Patient's initial sepsis screen is negative. Does the patient have a suspected source of infection? No. Patient's initial sepsis screen is negative. Care prior to arrival: Medication(s) given: zofran 4 mg and NS. 04:56 Method Of Arrival: EMS: [facility] ea 04:56 Acuity: TAVON 3 ea Triage Assessment: 07:00 General: Appears in no apparent distress. comfortable, Behavior is cooperative, bp appropriate for age, anxious. GI: Reports diarrhea, nausea, vomiting. Historical: - Allergies: 05:12 Asacol; ea 05:12 Humira; ea 05:12 Methotrexate; ea 05:12 Orencia; ea 05:12 Phenergan; ea 05:12 Sulfazine; ea - Home Meds: 05:12 levothyroxine 50 mcg tab 1 tab once daily [Active]; Spiriva with HandiHaler 18 mcg ea inhalation CpDv 1 cap once daily [Active]; famotidine 20 mg Oral tab 1 tab once daily [Active]; Symbicort 160-4.5 mcg/actuation inhalation HFAA 2 puffs 2 times per day [Active]; atorvastatin 40 mg Oral tab 1 tab once daily [Active]; albuterol sulfate 2.5 mg /3 mL (0.083 %) Inhl nebu 3 mL 3 times per day [Active]; prednisone 5 mg Oral tab 2 tabs once daily [Active]; paroxetine HCl 40 mg Oral tab 1 tab once daily [Active]; melatonin 3 mg Oral tab 2 tab nightly [Active]; benzonatate 200 mg Oral cap 1 cap 3 times per day [Active]; albuterol sulfate 90 mcg/actuation Inhl HFAA 2 puffs every 6 hours [Active]; - PMHx: 05:12 Hypothyroidism; Hyperlipidemia; GERD; Depression; COPD; Arthritis; ea - PSHx: 05:12 Rectal Mass Removal; Hernia repair; Hysterectomy; Appendectomy; Cholecystectomy; Knee ea surgery; Reveal Insertable Denture Finisher; Cataract, both eyes; Bladder Sling; - Immunization history:: Adult Immunizations up to date. - Social history:: Smoking status: Patient/guardian denies using tobacco. - Family history:: not pertinent. - Ebola Screening: : No symptoms or risks identified at this time. - Hospitalizations: : No recent hospitalization is reported. Screenin:03 Abuse screen: Denies threats or abuse. Nutritional screening: No deficits noted. ea Tuberculosis screening: No symptoms or risk factors identified. Fall Risk None identified. Assessment: 05:12 General: Appears in no apparent distress. Behavior is calm, cooperative, appropriate ea for age. Pain: Denies pain. Neuro: Level of Consciousness is awake, alert, obeys commands, Oriented to person, place, time, situation. Cardiovascular: Patient's skin is warm and dry. Respiratory: Airway is patent Respiratory effort is even, unlabored, Respiratory pattern is regular, symmetrical. GI: Reports diarrhea, nausea, vomiting. Derm: Skin is pink, warm \T\ dry. 06:11 Reassessment: Patient and/or family updated on plan of care and expected duration. Pain ea level reassessed. Patient is alert, oriented x 3, equal unlabored respirations, skin warm/dry/pink. Pt taken to CT. 06:35 Reassessment: Patient and/or family updated on plan of care and expected duration. Pain ea level reassessed. Patient is alert, oriented x 3, equal unlabored respirations, skin warm/dry/pink. Pt returned from CT. 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 07:44 Reassessment: Patient appears in no apparent distress at this time. Patient and/or tw2 family updated on plan of care and expected duration. Pain level reassessed. Patient is alert, oriented x 3, equal unlabored respirations, skin warm/dry/pink. 08:08 Reassessment: pt actionscript developer light again to use bed chin, assisted on and off bedpan, approx tw2 200 ml urine. 08:31 Reassessment: pt up for discharge, is living in the independent side of [facility] tw2 and they do not provide transportation, pt asked me to call Levy Hale, but she didn't know his phone #, [facility] gave ph# of [phone], Levy called, he states he will be here shortly to oyster picker pt. 09:04 Reassessment: PT D/C HOME VIA W/C WITH FAMILY, DX WITH ASTHMA EXACERBATION. bp Vital Signs: 05:03 BP 189 / 88; Pulse 73; Resp 16; Temp 98.1; Pulse Ox 96% on R/A; Weight 58.97 kg; Height ea 4 ft. 11 in. (149.86 cm); Pain 0/10; 07:44 BP 197 / 94; Pulse 68; Resp 17; Pulse Ox 96% on R/A; tw2 08:34 BP 186 / 91; Pulse 68; Resp 17; Pulse Ox 95% on R/A; tw2 05:03 Body Mass Index 26.26 (58.97 kg, 149.86 cm) ea ED Course: 04:54 Patient arrived in ED. ag3 04:55 Kyle Darby MD is Attending Physician. rn 04:56 Gail Valdovinos RN is Primary Nurse. ea 04:57 Maintain EMS IV. Dressing intact. Good blood return noted. Site clean \T\ dry. Gauge \T\ rr 5 site: G18 right Forearm. 05:00 Patient has correct armband on for positive identification. Bed in low position. Call rr5 light in reach. Side rails up X2. Pulse ox on. NIBP on. 05:00 Warm blanket given. rr5 05:03 Triage completed. ea 05:04 Flu and/or RSV swab sent to lab. rr5 05:12 Arm band placed on right wrist. Patient placed in an exam room, on a stretcher, on ea pulse oximetry. 05:27 Radiology exam delayed due to lab results not completed at this time. (BUN/Creatinine). kw1 07:03 CT Abd/Pelvis - IV Contrast Only In Process Unspecified. EDMS 07:03 Report given to Ping DUNAWAY. ea 07:15 Melissa Urban FNP-C is PHCP. snw 08:33 Awaiting transportation. tw2 09:06 No provider procedures requiring assistance completed. IV discontinued, intact, bp bleeding controlled, No redness/swelling at site. Pressure dressing applied. Administered Medications: 04:57 Drug: NS 0.9% 500 ml Route: IV; Rate: 1 bolus; Site: right forearm; rr5 09:06 Follow up: IV Status: Completed infusion; IV Intake: 500ml bp 06:36 Drug: Tamiflu 75 mg Route: PO; ea 07:44 Follow up: Response: No adverse reaction bp 07:44 Drug: Tylenol 650 mg Route: PO; bp 08:33 Follow up: Response: No adverse reaction tw2 07:44 Drug: NS 0.9% 250 ml Route: IV; Rate: bolus; Site: right forearm; bp 08:34 Follow up: Response: No adverse reaction; IV Status: Completed infusion; IV Intake: tw2 250ml Intake: 08:34 IV: 250ml; Total: 250ml. tw2 09:06 IV: 500ml; Total: 750ml. bp Outcome: 08:24 Discharge ordered by . snw 09:06 Discharged to home via wheelchair, with family. bp 09:06 Condition: stable 09:06 Discharge instructions given to patient, Instructed on discharge instructions, follow up and referral plans. medication usage, Demonstrated understanding of instructions, follow-up care, medications, Prescriptions given X 2. 09:07 Patient left the ED. bp Signatures: Dispatcher [employer] [facility] Melissa Urban FNP-C PREVENTIVE MAINTENANCE ENGINEER-Csnw Kyle Darby MD MD rn Wise, Tara RN RN tw2 Gail Valdovinos RN RN Ben Nails RN RN bp Phyllis Arauz kw1 Roseanne Jimenes 3 Robin Arndt, RN RN rr5 Corrections: (The following items were deleted from the chart) 06:11 06:11 Reassessment: Pt taken to CT sahil baxter
--- NOTE | 2018-11-27 08:42 | EDPHYS ---
Physician Documentation [facility] Name: Elva Jenkins Age: 88 yrs Sex: Female : 1930 Arrival Date: 11/27/2018 Time: 04:54 Bed 7 Private MD: ED Physician Kyle Darby HPI: 11/27 04:57 This 88 yrs old Female presents to ER via Unassigned with complaints of rn Nausea/Vomiting/Diarrhea. 04:57 The patient presents to the emergency department with nausea, diarrhea. Onset: The rn symptoms/episode began/occurred last night. Possible causes: unknown. The symptoms are aggravated by nothing. The symptoms are alleviated by nothing. Severity of symptoms: At their worst the symptoms were mild in the emergency department the symptoms have improved. The patient has experienced similar episodes in the past. Reports nausea, diarrhea, non-bloody, began last night, called for some nausea medication, instead sent here by ambulance. Reports feels "sick to [her] stomach", has not thrown up yet. Very mild abd pain. Given fluids and zofran by EMS and feels a little better. . Historical: - Allergies: 05:12 Asacol; ea 05:12 Humira; ea 05:12 Methotrexate; ea 05:12 Orencia; ea 05:12 Phenergan; ea 05:12 Sulfazine; ea - Home Meds: 05:12 levothyroxine 50 mcg tab 1 tab once daily [Active]; Spiriva with HandiHaler 18 mcg ea inhalation CpDv 1 cap once daily [Active]; famotidine 20 mg Oral tab 1 tab once daily [Active]; Symbicort 160-4.5 mcg/actuation inhalation HFAA 2 puffs 2 times per day [Active]; atorvastatin 40 mg Oral tab 1 tab once daily [Active]; albuterol sulfate 2.5 mg /3 mL (0.083 %) Inhl nebu 3 mL 3 times per day [Active]; prednisone 5 mg Oral tab 2 tabs once daily [Active]; paroxetine HCl 40 mg Oral tab 1 tab once daily [Active]; melatonin 3 mg Oral tab 2 tab nightly [Active]; benzonatate 200 mg Oral cap 1 cap 3 times per day [Active]; albuterol sulfate 90 mcg/actuation Inhl HFAA 2 puffs every 6 hours [Active]; - PMHx: 05:12 Hypothyroidism; Hyperlipidemia; GERD; Depression; COPD; Arthritis; ea - PSHx: 05:12 Rectal Mass Removal; Hernia repair; Hysterectomy; Appendectomy; Cholecystectomy; Knee ea surgery; Reveal Insertable Finish Grinder; Cataract, both eyes; Bladder Sling; - Immunization history:: Adult Immunizations up to date. - Social history:: Smoking status: Patient/guardian denies using tobacco. - Family history:: not pertinent. - Ebola Screening: : No symptoms or risks identified at this time. - Hospitalizations: : No recent hospitalization is reported. ROS: 04:57 Constitutional: Negative for fever, chills, and weight loss, Eyes: Negative for injury, rn pain, redness, and discharge, Neck: Negative for injury, pain, and swelling, Cardiovascular: Negative for chest pain, palpitations, and edema, Respiratory: Negative for shortness of breath, cough, wheezing, and pleuritic chest pain, Abdomen/GI: Negative for constipation MS/Extremity: Negative for injury and deformity, Skin: Negative for injury, rash, and discoloration, Neuro: Negative for headache, numbness, tingling, and seizure. Exam: 04:57 Constitutional: This is a well developed, well nourished patient who is awake, alert, rn and in no acute distress. Head/Face: Normocephalic, atraumatic. Eyes: Pupils equal round and reactive to light, extra-ocular motions intact. Lids and lashes normal. Conjunctiva and sclera are non-icteric and not injected. Cornea within normal limits. Periorbital areas with no swelling, redness, or edema. ENT: dry MM Cardiovascular: Regular rate and rhythm. No pulse deficits. Respiratory: No increased work of breathing, no retractions or nasal flaring. Abdomen/GI: soft, non-tender MS/ Extremity: Pulses equal, no cyanosis. Neurovascular intact. Full, normal range of motion. Equal circumference. Neuro: Awake and alert, GCS 15, oriented to person, place, time, and situation. Cranial nerves II-XII grossly intact. Motor strength 5/5 in all extremities. Sensory grossly intact Vital Signs: 05:03 BP 189 / 88; Pulse 73; Resp 16; Temp 98.1; Pulse Ox 96% on R/A; Weight 58.97 kg; Height ea 4 ft. 11 in. (149.86 cm); Pain 0/10; 07:44 BP 197 / 94; Pulse 68; Resp 17; Pulse Ox 96% on R/A; tw2 08:34 BP 186 / 91; Pulse 68; Resp 17; Pulse Ox 95% on R/A; tw2 05:03 Body Mass Index 26.26 (58.97 kg, 149.86 cm) ea MDM: 04:55 Patient medically screened. rn 08:28 Data reviewed: vital signs, nurses notes. Data interpreted: Pulse oximetry: on room air snw is 96 %. Interpretation: acceptable. Counseling: I had a detailed discussion with the patient and/or guardian regarding: the historical points, exam findings, and any diagnostic results supporting the discharge/admit diagnosis, the presence of at least one elevated blood pressure reading (>120/80) during this emergency department visit, lab results, radiology results, the need for outpatient follow up, to return to the emergency department if symptoms worsen or persist or if there are any questions or concerns that arise at home. Special discussion: I have referred the patient to see his PCP for further evaluation of high blood pressure. Based on the history and exam findings, there is no indication for further emergent testing or inpatient evaluation. I discussed with the patient/guardian the need to see the primary care provider for further evaluation of the symptoms. 11/27 04:55 Order name: Creatinine for pattern perforating machine operator 11/27 04:55 Order name: Basic Metabolic Panel rn 11/27 04:55 Order name: CBC with Diff rn 11/27 04:55 Order name: Hepatic Function rn 11/27 04:55 Order name: Lipase rn 11/27 05:00 Order name: Flu rn 11/27 04:57 Order name: CT Abd/Pelvis - IV Contrast Only; Complete Time: 16:30 rn 11/27 05:21 Order name: CBC with Automated Diff; Complete Time: 06:38 EDNJ 11/27 05:29 Order name: Creatinine (Radiology Only); Complete Time: 06:38 EDMS 11/27 05:32 Order name: Basic Metabolic Panel; Complete Time: 06:38 EDMS 11/27 05:32 Order name: Liver (Hepatic) Function; Complete Time: 06:38 EDMS 11/27 05:32 Order name: Lipase; Complete Time: 06:38 EDMS 11/27 05:45 Order name: Influenza Screen (A ; Complete Time: 06:38 EDMS 11/27 04:55 Order name: IV Saline Lock; Complete Time: 04:57 rn 11/27 04:55 Order name: Labs collected and sent; Complete Time: 04:57 rn Administered Medications: 04:57 Drug: NS 0.9% 500 ml Route: IV; Rate: 1 bolus; Site: right forearm; rr5 09:06 Follow up: IV Status: Completed infusion; IV Intake: 500ml bp 06:36 Drug: Tamiflu 75 mg Route: PO; ea 07:44 Follow up: Response: No adverse reaction bp 07:44 Drug: Tylenol 650 mg Route: PO; bp 08:33 Follow up: Response: No adverse reaction tw2 07:44 Drug: NS 0.9% 250 ml Route: IV; Rate: bolus; Site: right forearm; bp 08:34 Follow up: Response: No adverse reaction; IV Status: Completed infusion; IV Intake: tw2 250ml Disposition: 11/27/18 08:24 Discharged to Home. Impression: Influenza due to other identified influenza virus, Nausea. - Condition is Stable. - Discharge Instructions: Influenza, Adult, Nausea, Adult. - Prescriptions for Tamiflu 75 mg Oral Capsule - take 1 capsule by ORAL route every 12 hours for 5 days; 10 capsule. Zofran 4 mg Oral Tablet - take 1 tablet by ORAL route every 12 hours As needed; 20 tablet. - Medication Reconciliation Form, Thank You Letter, Antibiotic Education, Prescription Opioid Use form. - Follow up: Emergency Department; When: As needed; Reason: Worsening of condition. Follow up: Private Physician; When: 1 - 2 days; Reason: Recheck today's complaints, Continuance of care, Re-evaluation by your physician. Signatures: Dispatcher [employer] [facility] [place] Melissa Urban, SELF STORAGE MANAGER-C SELF STORAGE MANAGER-Csnw Kyle Darby MD MD rn Antunez, Elena, RN RN ea Peltier, Brian, RN RN bp Roque, Raymond, GUME DUNAWAY rr5 Ping Evans RN tw2 Corrections: (The following items were deleted from the chart) 09:07 08:24 11/27/2018 08:24 Discharged to Home. Impression: Influenza due to other bp identified influenza virus; Nausea. Condition is Stable. Forms are Medication Reconciliation Form, Thank You Letter, Antibiotic Education, Prescription Opioid Use. Follow up: Emergency Department; When: As needed; Reason: Worsening of condition. Follow up: Private Physician; When: 1 - 2 days; Reason: Recheck today's complaints, Continuance of care, Re-evaluation by your physician. snw
[2018-11-27 09:17] VITALS: TEMP 98.1
[2018-11-27 09:19] VITALS: BP 186/91; O2SAT 95
--- NOTE | 2018-11-27 09:57 | RAD REPORT ---
EXAM DESCRIPTION: CT - Abdomen Pelvis W Contrast - 11/27/2018 8:15 am CLINICAL HISTORY: The patient is 88 years old and is Female; nausea, diarrhea TECHNIQUE: Axial computed tomography images of the abdomen and pelvis with intravenous contrast. S agittal and coronal reformatted images were created and reviewed. This CT exam was performed using one or more of the following dose reduction techniques: automated exposure control, adjustment of t he mA and/or kV according to patient size, and/or use of iterative reconstruction technique. COMPARISON: CT of the abdomen and pelvis August 15, 2018. FINDINGS: LUNG BASES: Scarring and bronchiectasis within the lung bases is present. MEDIASTINUM: A small hiatal hernia is present. ABDOMEN: LIVER: Unremarkable. No mass. GALLBLADDER AND BILE DUCTS: Surgical clips are present in the right upper quadrant, consistent w ith previous cholecystectomy. Moderate biliary dilatation is present. PANCREAS: No ductal dilation. No mass. SPLEEN: Unremarkable. ADRENALS: Unremarkable. No mass. KIDNEYS AND URETERS: Unremarkable. The kidneys enhance symmetrically. No obstructing renal or ur eteral calculus is seen. No hydronephrosis or hydroureter. No perinephric fluid or stranding. STOMACH AND BOWEL: Postsurgical changes the level of the GE junction is noted. The stomach is decompressed. The small bowel is normal in caliber. A moderate amount stool is present throughout the colon. No evidence of bowel obstruction. No significant bowel wall thickening. Colonic diverticulosi s is noted, without associated inflammatory changes to suggest diverticulitis. PELVIS: APPENDIX: No findings to suggest acute appendicitis. BLADDER: The bladder is well distended. REPRODUCTIVE: The patient is status post hysterectomy. ABDOMEN and PELVIS: INTRAPERITONEAL SPACE: Unremarkable. No free air. No significant fluid collection. BONES/JOINTS: Mild multilevel degenerative change of the spine is present. SOFT TISSUES: The soft tissues are normal. VASCULATURE: Atherosclerosis of the vasculature is present. No abdominal aortic aneurysm. LYMPH NODES: Unremarkable. No enlarged lymph nodes. IMPRESSION: Colonic diverticulosis without evidence of diverticulitis. Electronically signed by: Jade House MD 11/27/2018 6:42 AM CDT Due to temporary technical issues with the PACS/Fluency reporting system, reports are being signed by the in house radiologist as a courtesy to ensure prompt reporting. The interpreting radiologist is f ully responsible for the content of the report.
== END 2018-11-27 09:07 | disposition home or self-care (01) ==
LOC: ER 04:51
DX: J10.1 Influenza due to other identified influenza virus with other respiratory manifestations (principal); E78.5 Hyperlipidemia, unspecified; E03.9 Hypothyroidism, unspecified; F32.9 Major depressive disorder, single episode, unspecified; J44.9 Chronic obstructive pulmonary disease, unspecified; Z88.2 Allergy status to sulfonamides; Z88.8 Allergy status to other drugs, medicaments and biological substances
CPT/HCPCS: 96361; 85025; 80048; 36415; 80076; 83690; 87804 ×2; 74177; 96360; 99284; Q9967

== ENCOUNTER 2018-11-27 13:34 | Emergency (ER) | payer SELFPAY ==
--- OUTSIDE RECORDS SUMMARY | 2018-11-27 13:37 | XMS REPORT | Clinical Summary ---
:1930 Author Organization [place] [employer] Address [address] [place] [address] Care Team Providers Name Role Phone Asked, [...] Comments Blood Pressure 132/60 03/02/2018 12:02 PM G[facility]TER Pulse 78 03/02/2018 12:02 PM [facility] Temperature 36.1 C (97 F) 03/02/2018 12:02 PM [facility] Respiratory Rate 14 03/02/2018 12:02 PM [facility] Oxygen Saturation 93% 03/02/2018 12:02 PM [facility]TER Inhaled Oxygen Concentration - - Weight 51.1 kg (112 lb 9.6 oz) 03/02/2018 5:13 AM GULLET [facility]ITTER Height - - Body Mass Index 22.74 04/12/2017 12:01 PM [facility] Plan of Treatment Health Maintenance Due Date Last Done Comments SHINGLES VACCINES (#1) 1981 65+ PNEUMOCOCCAL VACCINE (1 of 2 - PCV13) 1996 INFLUENZA VACCINE 10/12/2018 Implants Implanted Type Area Hosiery Mender Device Identifier Shelf Expiration Model / Date Serial / Lot Reveal Linq-02/02/2016 Implanted: Qty: 1 on 02/02/2016 Description:Heart monitor implant ( s/p Loop LINQ) IMPLANTED By DR IVAN LANE at [facility]. Procedures Procedure Name Priority Date/Time Associated Comments Diagnosis ESTIMATED GFR Routine 03/02/2018 3:55 Results for this AM [facility] procedure are in the results section. THYROID STIMULATING Routine 03/02/2018 3:55 Results for this HORMONE AM [facility]TER procedure are in the results section. HC COMPLETE BLD COUNT Routine 03/02/2018 3:55 Results for this W/AUTO DIFF AM [facility]TER procedure are in the results section. BASIC METABOLIC PANEL Routine 03/02/2018 3:55 Results for this AM [facility] procedure are in the results section. US DUPLEX VENOUS LOWER Routine 03/01/2018 11:47 Results for this EXTREMITY BILATERAL AM [facility]TER procedure are in the results section. ECHOCARDIOGRAM 2D Routine 03/01/2018 7:35 Results for this COMPLETE W MMODE AM [facility]TER procedure are in SPECTRAL COLOR DOPPLER the results (02928) section. CBC WITH PLATELET AND Routine 03/01/2018 4:39 Results for this DIFFERENTIAL AM [facility] procedure are in the results section. ESTIMATED GFR Routine 03/01/2018 4:00 Results for this AM [facility] procedure are in the results section. PHOSPHORUS LEVEL Routine 03/01/2018 4:00 Results for this AM [facility] procedure are in the results section. MAGNESIUM LEVEL Routine 03/01/2018 4:00 Results for this AM [facility] procedure are in the results section. IONIZED CALCIUM Routine 03/01/2018 4:00 Results for this AM [facility] procedure are in the results section. BASIC METABOLIC PANEL Routine 03/01/2018 4:00 Results for this AM [facility] procedure are in the results section. CT ANGIOGRAM PE CHEST Routine 02/28/2018 10:59 Results for this PM [facility]TER procedure are in the results section. CT ABDOMEN PELVIS WO Routine 02/28/2018 10:59 Results for this CONTRAST PM [facility] procedure are in the results section. IONIZED CALCIUM Routine 02/28/2018 7:46 Results for this PM [facility] procedure are in the results section. ESTIMATED GFR Routine 02/28/2018 7:46 Results for this PM [facility] procedure are in the results section. PHOSPHORUS LEVEL Routine 02/28/2018 7:46 Results for this PM [facility] procedure are in the results section. COMPREHENSIVE METABOLIC Routine 02/28/2018 7:46 Results for this PANEL PM [facility]TER procedure are in the results section. MAGNESIUM LEVEL Routine 02/28/2018 7:46 Results for this PM [facility] procedure are in the results section. HC COMPLETE BLD COUNT Routine 02/28/2018 7:05 Results for this W/AUTO DIFF PM [facility] procedure are in the results section. PROTHROMBIN TIME WITH Routine 02/28/2018 7:05 Results for this INR PM [facility] procedure are in the results section. XR CHEST 1 VW PORTABLE STAT 02/28/2018 6:44 Results for this PM [facility] procedure are in the results section. TYPE AND SCREEN STAT 02/28/2018 6:20 Results for this PM [facility] procedure are in the results section. ECG 12-LEAD STAT 02/28/2018 5:57 Results for this PM [facility]TER procedure are in the results section. after 11/26/2017 Results Estimated GFR (03/02/2018 3:55 AM GULLET SLITTER)Only the most recent of3 resultswithin the time period is included. Estimated GFR 58 (A) mL/min/1.73 [facility] Comment: m2 HOSPITAL CatergoryUnitsInterpretation G1 >=90 Normal or high G2 60-89Mildly decreased [id number] to moderately decreased R4d77-74Yspasbezkh to severely decreased G4 15-29Severely decreased G5 <15Kidney failure The eGFR was calculated using the Chronic Kidney Disease Epidemiology Collaboration (CKD-EPI) equation. Interpretation is based on recommendations of the National Kidney Foundation-Kidney Disease Outcomes Quality Initiative (NKF-KDOQI) published in 2014. Specimen Plasma specimen Performing Organization Address City/State/Zipcode Phone Number [facility] DEPARTMENT OF PATHOLOGY AND [address] [place] [address] GENOMIC MEDICINE [facility] [address] [place] [address] CBC with platelet and differential (03/02/2018 3:55 AM GULLET [facility]ITTER)Only the most recent of3 resultswithin the time period is included. Pathologist [facility] WBC 7.03 4.50 - 11.00 [facility] k/uL [facility] RBC 3.52 (L) 4.20 - 5.50 [facility] m/uL [facility] HGB 11.2 (L) 12.0 - 16.0 [facility] g/dL [facility] HCT 33.5 (L) 37.0 - 47.0 % [facility] MCV 95.2 82.0 - 100.0 [facility] MCH 31.8 27.0 - 34.0 pg [facility] MCHC 33.4 31.0 - 37.0 [facility] g/dL [facility] RDW - SD 49.1 37.0 - 55.0 fL [facility] MPV 8.8 8.8 - 13.2 fL [facility] Platelet count 238 150 - 400 k/uL [facility] Nucleated RBC 0.00 /100 WBC [facility] Neutrophils 64.5 39.0 - 69.0 % [facility] Lymphocytes 28.7 25.0 - 45.0 % [facility] Monocytes 6.0 0.0 - 10.0 % [facility] Eosinophils 0.1 0.0 - 5.0 % [facility] Basophils 0.4 0.0 - 1.0 % [facility] Immature granulocytes 0.3Comment: 0.0 - 1.0 % [facility] "Immature HOSPITAL granulocytes" (promyelocytes , myelocytes, metamyelocytes ) Specimen Blood Performing Organization Address [facility] Phone Number [facility] DEPARTMENT OF PATHOLOGY AND [address] [place] [address] Thyroid stimulating hormone (03/02/2018 3:55 AM GULLET SLITTER) Pathologist [facility] TSH 1.42 0.27 - 4.20 uIU/mL [facility] Specimen Plasma specimen Performing Organization Address [facility] Phone Number [facility] DEPARTMENT OF PATHOLOGY AND [address] [place] [address] Basic metabolic panel (03/02/2018 3:55 AM GULLET SLITTER)Only the most recent of2 resultswithin the time period is included. Sodium 135 135 - 148 mEq/L [facility] Potassium 3.9 3.5 - 5.0 mEq/L [facility] Chloride 94 (L) 98 - 112 mEq/L [facility] CO2 28 24 - 31 mEq/L [facility] Anion gap 13@ANIO 7 - 15 mEq/L [facility] BUN 12 8 - 23 mg/dL [facility] Creatinine 0.89 0.50 - 0.90 mg/dL [facility] Glucose 112 (H) 65 - 99 mg/dL [facility] Calcium 8.5 (L) 8.8 - 10.2 mg/dL [facility] Specimen Plasma specimen Performing Organization Address [facility] Phone Number [facility] DEPARTMENT OF PATHOLOGY AND [address] [place] [address] Us duplex venous lower extremity (03/01/2018 11:47 AM GUL[facility]ITTER) Specimen Narrative Performed At [facility] Vascular Ultrasound Laboratory Lower Extremity Venous Report [address] [place] [address] Pat.Name:ELVA FLOR Gabi.ID:[id number] .Date: 03/01/2018Refer.MD:TOBIAS BLANCO MD Exam Time: 11:16:00 AM Study Type:LE Venous Height:59inDOBAge: 1930,87Y Sex: FEMALESonogrphr: Kevin Barry, RDMS, RVT Pat. Stat.:Inpatient Room:[address] TapeVol: , [facility] - 4: [id number] Echo Event ID:[id number] Order ID:[id number] Reason for Study:Lower extremity swelling. History of [...] Results In - 03/01/2018 4:41 PM [facility] Vascular Ultrasound Laboratory Lower Extremity Venous Report [address] [address] Pat.Name: ELVA FLOR Pat.ID: [id number] .Date: 03/01/2018 Refer.MD: TOBIAS BLANCO MD Exam Time: 11:16:00 AM Study Type:LE Venous Height: 59in Age: 2 1930,87Y Sex: FEMALE Sonogrphr: Kevin Barry, RDMS, RVT Pat. Stat.:Inpatient Room: [address] Tape Vol: ST, [facility] - 4: [id number] Echo Event ID:[id number] Order ID: [id number] Reason for Study:Lower extremity swelling. History of [...] Performing Organization Address City/State/Zipcode Phone Number [facility] [address] [place] [address] Echocardiogram complete w contrast and 3D if needed (03/01/2018 7:35 AM GULLET SLITTER) Specimen Narrative Performed At [facility] Echocardiography Report [address]Name:ELVA FLOR Pat.ID:[id number] St.Date: 03/01/2018Refer.MD:TOBIAS BLANCO MD Exam Time: 7:07:00 AMStudy Type:Routine Echo Height:59.02in Weight:120lb BSA: 1.49 m2 DOBAge:1930,87Y Sex: FEMALEBP:140/65 HR:78 bpmSonogrphr: Michell Couch RDCS Pat. Stat.:Inpatient Room:[facility] Study Status:Final Echo Event ID:[id number] Order ID:[id number] Reason for Study:Shortness of breath Procedures:2D Echo, [...] RAPof 5 mmHg. MEASUREMENTS: 2D Parasternal [place] Ds3.2 cmLVPWd1 cm LVOT 1.8 cmAo An1.8 cm LVIDd3.9 cmIndex2.6 cm/m Ao Rtd 3 cm Index2 cm/m LVIDs2.1 cmLV Ztjz872 g(87-129) LV%fs 45.5 % LVM Index 86.6 g/m2 IVSd 1.1 cmRWT0.5 LA Sng Plane LA Area 15.4 cm2(8.8-23.4) LA Vol39.3 ml Index26.4 ml/m LA LngAx 5.2 cm RA Sng Plane RA Area 12.6 cm2(8.3-19.5) RA Vol27.5 ml Index18.4 ml/m RA LngAx 5.1 cm DOPPLER LVOT Stroke Vol LVOT 1.8 cmLVOT CO5.2 l/min LVOT TVI31.5 cmLVOT CI3.5 l/m/m2 LVOT Tm343 hbngFT79 bpm LVOT SV 80.1 ml Signed 03/01/2018 02:33 PM Lucho Abdullahi M.D. Procedure Note Interface, Radiology Results In - 03/01/2018 2:34 PM [facility] Echocardiography Report [address] [place] [address] Pat.Name: ELVA FLOR Pat.ID: [id number] .Date: 03/01/2018 Refer.MD: TOBIAS BLANCO MD Exam Time: 7:07:00 AM Study Type:Routine Echo Height: 59.02in Weight: 120lb BSA: 1.49 m2 Age: 2 1930,87Y Sex: FEMALE BP: 140/65 HR: 78 bpm Sonogrphr: Michell Couch RDCS Pat. Stat.:Inpatient Room: [facility] Study Status:Final Echo Event ID:[id number] Order ID: [id number] Reason for Study:Shortness of breath Procedures:2D Echo, [...] of 5 mmHg. MEASUREMENTS: 2D Parasternal [place] Ds 3.2 cm LVPWd 1 cm [...] PM Lucho Abdullahi M.D. Performing Organization Address City/[facility] Phone Number [facility] [address] [place] [address] Phosphorus level (03/01/2018 4:00 AM GUL[facility]ITTER)Only the most recent of2 resultswithin the time period is included. Phosphorus 4.0 2.4 - 4.5 mg/dL [facility] Specimen Plasma specimen Performing Organization Address [facility] Phone Number [facility] DEPARTMENT OF PATHOLOGY AND [address] [place] [id number] [place] [phone] Magnesium level (03/01/2018 4:00 AM GULLET SLITTER)Only the most recent of2 resultswithin the time period is included. Magnesium 1.9 1.6 - 2.4 mg/dL [facility] Specimen Plasma specimen Performing Organization Address [facility] Phone Number [facility] DEPARTMENT OF PATHOLOGY AND [address] [place] [phone] [place] [phone] Ionized calcium (03/01/2018 4:00 AM GULLET SLITTER)Only the most recent of2 resultswithin the time period is included. pH 7.53 [facility] Ionized calcium 1.04 (L) 1.11 - 1.32 [facility] mmol/L [facility] Specimen Plasma specimen Performing Organization Address [facility] Phone Number [facility] DEPARTMENT OF PATHOLOGY AND [address] [place] [phone] [place] [phone] Angiogram Pe Chest (02/28/2018 10:59 PM GUL[facility]ITTER) Specimen Narrative Performed At EXAMINATION: [facility] CT [...] identified. IMPRESSION: No evidence of pulmonary embolus. [facility]-[id number] Procedure Note Interface, Radiology Results Incoming - 02/28/2018 11:31 PM GUL[facility]ITTER EXAMINATION: CT ANGIOGRAM PE CHEST CLINICAL HISTORY: [...] identified. IMPRESSION: No evidence of pulmonary embolus. [facility]-[id number] Performing Organization Address City/State/Zipcode Phone Number [facility] [address] [place] [address] CT Abdomen Pelvis Wo Contrast (02/28/2018 10:59 PM GUL[facility]ITTER) Specimen Narrative Performed At Examination:[facility] Clinical History: Shortness of [...] abnormality identified in the abdomen or pelvis. [facility]-[id number] Procedure Note Interface, Radiology Results Incoming - 02/28/2018 11:35 PM GUL[facility]ITTER Examination: CT ABDOMEN PELVIS WO CONTRAST Clinical [...] abnormality identified in the abdomen or pelvis. [facility]-[id number] Performing Organization Address City/State/Zipcode Phone Number [facility] [address] [place] [address] Comprehensive metabolic panel (02/28/2018 7:46 PM GUL[facility]ITTER) Sodium 137 135 - 148 [facility] mEq/L [facility] Potassium 3.9 3.5 - 5.0 [facility] mEq/L [facility] Chloride 99 98 - 112 mEq/L [facility] CO2 26 24 - 31 mEq/L [facility] Anion gap 12@ANIO 7 - 15 mEq/L [facility] BUN 15 8 - 23 mg/dL [facility] Creatinine 0.84 0.50 - 0.90 [facility] mg/dL [facility]OS[facility]ITAL Glucose 85 65 - 99 mg/dL [facility] Calcium 8.9 8.8 - 10.2 [facility] mg/dL [facility] Protein 6.2 (L) 6.3 - 8.3 g/dL [facility] Comment: HOSPITAL [place] 4.6-7.0 g/dL 1 week 4.4-7.6 g/dL 7 months-1year5.1-7.3 g/dL 1-2 years5.6-7.5 g/dL >3 years6.0-8.0 g/dL 18-150 6.3-8.3 g/dL Albumin 3.1 (L) 3.5 - 5.0 g/dL [facility] A/G ratio 1.0 0.7 - 3.8 [facility] Alkaline phosphatase 62 35 - 104 U/L [facility] AST 27 10 - 35 U/L [facility] ALT 26 5 - 50 U/L [facility] Total bilirubin 0.8 0.0 - 1.2 [facility] mg/dL [facility] Specimen Plasma specimen Performing Organization Address City/[facility] Phone Number [facility] DEPARTMENT OF PATHOLOGY AND [address] [place] [address] [address] Prothrombin time with INR (02/28/2018 7:05 PM GULLET [facility]ITTER) Prothrombin time 14.0 11.5 - 14.5 [facility] INR 1.1 [facility] Comment: SOHAN [facility] International Normalized Ratio (INR) is a therapeutic HOSPITAL monitoring tool for patients who are stable on oral anticoagulant therapy. An INR of 2.0-3.0 is suggested for deep vein thrombosis/pulmonary embolism. Specimen Blood Performing Organization Address City/[facility] Phone Number [facility] DEPARTMENT OF PATHOLOGY AND [address] [place] [phone] [address] XR Chest 1 Vw Portable (02/28/2018 6:44 PM GULLET [facility]ITTER) Specimen Narrative Performed At EXAMINATION:XR CHEST 1 VW PORTABLE [facility] CLINICAL HISTORY:Shortness of breath COMPARISON:04/12/2017 IMPRESSION: Chronic appearing interstitial lung markings. No consolidations, effusions, or pneumothorax. Calcified granuloma is seen of the right lung base. Cardiomediastinal silhouette is within normal limits. A device projects over the left heart. No acute osseous abnormalities. [facility]-[id number] Procedure Note Interface, Radiology Results Incoming - 02/28/2018 6:58 PM GUL[facility]ITTER EXAMINATION: XR CHEST 1 VW PORTABLE CLINICAL HISTORY: Shortness of breath COMPARISON: 04/12/2017 IMPRESSION: Chronic appearing interstitial lung markings. No consolidations, effusions, or pneumothorax. Calcified granuloma is seen of the right lung base. Cardiomediastinal silhouette is within normal limits. A device projects over the left heart. No acute osseous abnormalities. [facility]-[id number] Performing Organization Address City/State/Zipcode Phone Number [facility] [address] [place] [address] Type and screen (02/28/2018 6:20 PM GULLET [facility]ITTER) ABO grouping A [facility] Rh type POS [facility] Antibody screen (gel) NEG [facility] Specimen Blood Performing Organization Address City/State/Zipcode Phone Number [facility] DEPARTMENT OF PATHOLOGY AND [address] [place] [address] GENOMIC MEDICINE [facility] [address] [place] [address] ECG 12 lead (02/28/2018 5:57 PM GUL[facility]ITTER) Ventricular rate 60 [facility] Atrial rate 60 [facility] HI interval 128 [facility] QRSD interval 70 [...] At Performing Organization Address City/State/Zipcode Phone Number [facility] M[facility] [address] [place] [address] after 11/26/2017 Advance Directives For more information, please contact: [phone] Type Date Recorded Patient Marketing Officer Explanation Advance Directives, Living Will 03/31/2017 5:13 PM and Medical Power of Marine [employer]
--- OUTSIDE RECORDS SUMMARY | 2018-11-27 13:38 | XMS REPORT ---
:1930 [facility] Address [address] [place] [address] Dr. Marsh [address] [place] [id number] Care Team Providers Name Role Phone KIM MCKEON ZARI Unavailable Unavailable RICARDO WILSON Unavailable Unavailable Problems This patient has no known problems. Allergies, Adverse Reactions, Alerts This patient has no known allergies or adverse reactions. Medications This patient has no known medications. Results Test Description Test Time Test Comments Text Results Atomic Results Result Comments TISSUE EXAM 2017-09-20 16:22:00 Surgical Pathology Report Case: [id number] Authorizing Provider: Misha Calloway MD Collected: 09/16/2017 1538 Ordering Location: [address] Received: 09/19/2017 0820 Service Pathologist: Larry Cohn MD Specimen: Polyp, Colon - Rectosigmoid, POLYP TAKEN BY HOT SNARE RECTO-SIGMOID, POLYPECTOMY- TUBULAR ADENOMA- CAUTERIZED EDGE, NEGATIVE FOR ADENOMATOUS CHANGE Signing Pathologist Direct Phone Line: [phone] signed by Larry Cohn MD on 09/20/2017 at 4:22 [id number] bleedRectosigmoid colon polypThe specimen is received in [...] Value Reference Range Comments MAGNESIUM (BEAKER) (test joib=879) 1.9 mg/dL 1.6-2.6 BASIC METABOLIC [id number] 07:32:00 Test Item Value Reference Range Comments SODIUM (BEAKER) (test 138 meq/L 136-145 mpxp=311) POTASSIUM (BEAKER) (test 4.2 meq/L 3.5-5.1 lafr=483) CHLORIDE (BEAKER) (test 106 meq/L 98-107 mruc=260) CO2 (BEAKER) (test 25 meq/L 22-29 ydio=737) BLOOD UREA NITROGEN 6 mg/dL 7-21 (BEAKER) (test cuum=011) CREATININE (BEAKER) (test 0.66 mg/dL 0.57-1.25 ophk=606) GLUCOSE RANDOM (BEAKER) 76 mg/dL 70-105 (test bhkh=489) CALCIUM (BEAKER) (test 8.4 mg/dL 8.4-10.2 ufiu=558) EGFR (BEAKER) (test 85 mL/min/1.73 sq m ESTIMATED GFR IS NOT romy=0048) ACCURATE CREATININE CLEARANCE IN PREDICTING GLOMERULAR FILTRATION RATE. ESTIMATED GFR IS NOT APPLICABLE FOR DIALYSIS PATIENTS. [id number] 06:42:00 Test Item Value Reference Range Comments PROTIME (BEAKER) (test bqkr=754) 20.8 seconds 11.7-14.7 INR (BEAKER) (test lpsn=555) 1.8 <=5.9 PARTIAL THROMBOPLASTIN TIME (BEAKER) (test 36.1 seconds 22.5-36.0 ifsg=112) RECOMMENDED COUMADIN/WARFARIN INR THERAPY RANGESSTANDARD DOSE: 2.0 - 3.0 Includes: PROPHYLAXIS forvenous thrombosis, systemic embolization; TREATMENT for venous thrombosis and/or pulmonary embolus.HIGH RISK: Target INR is 2.5-3.5 for patients with mechanical heart valves.CBC W/PLT COUNT & AUTO [id number] 06:41:00 Test Item Value Reference Range Comments WHITE BLOOD CELL COUNT (BEAKER) (test vvkt=931) 5.5 K/ L 3.5-10.5 RED BLOOD CELL COUNT (BEAKER) (test hwtt=961) 3.52 M/ L 3.93-5.22 HEMOGLOBIN (BEAKER) (test eeym=037) 10.4 GM/DL 11.2-15.7 HEMATOCRIT (BEAKER) (test ogze=871) 33.1 % 34.1-44.9 MEAN CORPUSCULAR VOLUME (BEAKER) (test gxyh=396) 94.0 fL 79.4-94.8 MEAN CORPUSCULAR HEMOGLOBIN (BEAKER) (test 29.5 pg 25.6-32.2 oywm=417) MEAN CORPUSCULAR HEMOGLOBIN CONC (BEAKER) (test 31.4 GM/DL 32.2-35.5 dssq=513) RED CELL DISTRIBUTION WIDTH (BEAKER) (test 19.8 % 11.7-14.4 nqqi=329) PLATELET COUNT (BEAKER) (test vdre=897) 240 K/CU MM 150-450 MEAN PLATELET VOLUME (BEAKER) (test owlb=849) 8.5 fL 9.4-12.3 NUCLEATED RED BLOOD CELLS (BEAKER) (test 0 /100 WBC 0-0 ahrz=347) NEUTROPHILS RELATIVE PERCENT (BEAKER) (test 43 % vxgl=372) LYMPHOCYTES RELATIVE PERCENT (BEAKER) (test 49 % mitd=887) MONOCYTES RELATIVE PERCENT (BEAKER) (test 7 % eeev=261) EOSINOPHILS RELATIVE PERCENT (BEAKER) (test 1 % agbx=354) BASOPHILS RELATIVE PERCENT (BEAKER) (test 0 % tbah=474) NEUTROPHILS ABSOLUTE COUNT (BEAKER) (test 2.34 K/ L 1.56-6.13 kaeo=351) LYMPHOCYTES ABSOLUTE COUNT (BEAKER) (test 2.68 K/ L 1.18-3.74 hbqf=280) MONOCYTES ABSOLUTE COUNT (BEAKER) (test 0.38 K/ L 0.24-0.36 ortq=156) EOSINOPHILS ABSOLUTE COUNT (BEAKER) (test 0.05 K/ L 0.04-0.36 sgqd=941) BASOPHILS ABSOLUTE COUNT (BEAKER) (test 0.02 K/ L 0.01-0.08 cytc=791) IMMATURE GRANULOCYTES-RELATIVE PERCENT (BEAKER) 0 % 0-1 (test fdmh=4392) [id number] 19:07:00 Test Item Value Reference Range Comments MAGNESIUM (BEAKER) (test pnpg=655) 1.9 mg/dL 1.6-2.6 BASIC METABOLIC [id number] 19:07:00 Test Item Value Reference Range Comments SODIUM (BEAKER) (test 137 meq/L 136-145 amjp=589) POTASSIUM (BEAKER) (test 3.8 meq/L 3.5-5.1 lufs=406) CHLORIDE (BEAKER) (test 106 meq/L 98-107 xvyt=834) CO2 (BEAKER) (test 23 meq/L 22-29 peba=917) BLOOD UREA NITROGEN 6 mg/dL 7-21 (BEAKER) (test ckyq=640) CREATININE (BEAKER) (test 0.64 mg/dL 0.57-1.25 oqbb=123) GLUCOSE RANDOM (BEAKER) 82 mg/dL 70-105 (test mylt=806) CALCIUM (BEAKER) (test 8.5 mg/dL 8.4-10.2 paxo=042) EGFR (BEAKER) (test 88 mL/min/1.73 sq m ESTIMATED GFR IS NOT etui=3030) ACCURATE CREATININE CLEARANCE IN PREDICTING GLOMERULAR FILTRATION RATE. ESTIMATED GFR IS NOT APPLICABLE FOR DIALYSIS PATIENTS. CBC (HEMOGRAM ONLY)2017-09-16 18:38:00 Test Item Value Reference Range Comments WHITE BLOOD CELL COUNT (BEAKER) (test lwhh=960) 6.5 K/ L 3.5-10.5 RED BLOOD CELL COUNT (BEAKER) (test ikmx=920) 3.61 M/ L 3.93-5.22 HEMOGLOBIN (BEAKER) (test ujzg=873) 10.9 GM/DL 11.2-15.7 HEMATOCRIT (BEAKER) (test vpab=576) 33.5 % 34.1-44.9 MEAN CORPUSCULAR VOLUME (BEAKER) (test paqe=544) 92.8 fL 79.4-94.8 MEAN CORPUSCULAR HEMOGLOBIN (BEAKER) (test 30.2 pg 25.6-32.2 sdoy=145) MEAN CORPUSCULAR HEMOGLOBIN CONC (BEAKER) (test 32.5 GM/DL 32.2-35.5 ruou=777) RED CELL DISTRIBUTION WIDTH (BEAKER) (test 19.8 % 11.7-14.4 qzfl=139) PLATELET COUNT (BEAKER) (test sfic=444) 239 K/CU MM 150-450 MEAN PLATELET VOLUME (BEAKER) (test aziz=883) 8.7 fL 9.4-12.3 NUCLEATED RED BLOOD CELLS (BEAKER) (test 0 /100 WBC 0-0 fcsb=300) [id number] 06:56:00 Test Item Value Reference Range Comments PHOSPHORUS (BEAKER) (test odsp=838) 2.7 mg/dL 2.3-4.7 [id number] 06:56:00 Test Item Value Reference Range Comments MAGNESIUM (BEAKER) (test nmui=641) 1.9 mg/dL 1.6-2.6 BASIC METABOLIC [id number] 06:56:00 Test Item Value Reference Range Comments SODIUM (BEAKER) (test 139 meq/L 136-145 owby=341) POTASSIUM (BEAKER) (test 4.1 meq/L 3.5-5.1 lyti=434) CHLORIDE (BEAKER) (test 107 meq/L 98-107 radk=759) CO2 (BEAKER) (test 26 meq/L 22-29 tkgc=483) BLOOD UREA NITROGEN 11 mg/dL 7-21 (BEAKER) (test ruwu=272) CREATININE (BEAKER) (test 0.73 mg/dL 0.57-1.25 kwkp=510) GLUCOSE RANDOM (BEAKER) 107 mg/dL 70-105 (test woei=417) CALCIUM (BEAKER) (test 8.5 mg/dL 8.4-10.2 vndf=462) EGFR (BEAKER) (test 76 mL/min/1.73 sq m ESTIMATED GFR IS NOT iitx=0333) ACCURATE CREATININE CLEARANCE IN PREDICTING GLOMERULAR FILTRATION RATE. ESTIMATED GFR IS NOT APPLICABLE FOR DIALYSIS PATIENTS. HEPATIC FUNCTION [id number] 06:56:00 Test Item Value Reference Range Comments TOTAL PROTEIN (BEAKER) (test medb=703) 5.2 gm/dL 6.0-8.3 ALBUMIN (BEAKER) (test ksqa=3222) 2.9 g/dL 3.5-5.0 BILIRUBIN TOTAL (BEAKER) (test kpbo=541) 0.8 mg/dL 0.2-1.2 BILIRUBIN DIRECT (BEAKER) (test ixqv=609) 0.4 mg/dL 0.1-0.5 ALKALINE PHOSPHATASE (BEAKER) (test kbgg=452) 43 U/L 40-150 AST (SGOT) (BEAKER) (test ptvw=212) 13 U/L 5-34 ALT (SGPT) (BEAKER) (test xaxk=042) 10 U/L 6-55 CALCIUM, [id number] 06:36:00 Test Item Value Reference Range Comments CALCIUM IONIZED (BEAKER) (test wgzs=502) 1.05 mmol/L 1.12-1.27 PH, BLOOD (BEAKER) (test gett=4005) 7.46 PROTHROMBIN [id number] 06:35:00 Test Item Value Reference Range Comments PROTIME (BEAKER) (test uuho=314) 14.2 seconds 11.7-14.7 INR (BEAKER) (test lyti=601) 1.1 <=5.9 RECOMMENDED COUMADIN/WARFARIN INR THERAPY RANGESSTANDARD DOSE: 2.0 - 3.0 Includes: PROPHYLAXIS forvenous thrombosis, systemic embolization; TREATMENT for venous thrombosis and/or pulmonary embolus.HIGH RISK: Target INR is 2.5-3.5 for patients with mechanical heart valves.CBC W/PLT COUNT & AUTO [id number] 06:25:00 Test Item Value Reference Range Comments WHITE BLOOD CELL COUNT (BEAKER) (test ixcr=299) 9.4 K/ L 3.5-10.5 RED BLOOD CELL COUNT (BEAKER) (test vrbx=607) 3.48 M/ L 3.93-5.22 HEMOGLOBIN (BEAKER) (test pjua=096) 10.0 GM/DL 11.2-15.7 HEMATOCRIT (BEAKER) (test ouwf=928) 31.1 % 34.1-44.9 MEAN CORPUSCULAR VOLUME (BEAKER) (test onkl=925) 89.4 fL 79.4-94.8 MEAN CORPUSCULAR HEMOGLOBIN (BEAKER) (test 28.7 pg 25.6-32.2 zzab=729) MEAN CORPUSCULAR HEMOGLOBIN CONC (BEAKER) (test 32.2 GM/DL 32.2-35.5 vlac=677) RED CELL DISTRIBUTION WIDTH (BEAKER) (test 18.3 % 11.7-14.4 udkc=534) PLATELET COUNT (BEAKER) (test cecl=235) 234 K/CU MM 150-450 MEAN PLATELET VOLUME (BEAKER) (test ksxf=896) 8.9 fL 9.4-12.3 NUCLEATED RED BLOOD CELLS (BEAKER) (test 0 /100 WBC 0-0 gbch=292) NEUTROPHILS RELATIVE PERCENT (BEAKER) (test 70 % vuiz=565) LYMPHOCYTES RELATIVE PERCENT (BEAKER) (test 24 % goiw=032) MONOCYTES RELATIVE PERCENT (BEAKER) (test 5 % kfko=511) EOSINOPHILS RELATIVE PERCENT (BEAKER) (test 0 % wdcz=201) BASOPHILS RELATIVE PERCENT (BEAKER) (test 0 % wdrz=379) NEUTROPHILS ABSOLUTE COUNT (BEAKER) (test 6.54 K/ L 1.56-6.13 otql=618) LYMPHOCYTES ABSOLUTE COUNT (BEAKER) (test 2.30 K/ L 1.18-3.74 lods=050) MONOCYTES ABSOLUTE COUNT (BEAKER) (test 0.50 K/ L 0.24-0.36 jcda=681) EOSINOPHILS ABSOLUTE COUNT (BEAKER) (test 0.03 K/ L 0.04-0.36 ucme=151) BASOPHILS ABSOLUTE COUNT (BEAKER) (test 0.02 K/ L 0.01-0.08 dpzd=927) IMMATURE GRANULOCYTES-RELATIVE PERCENT (BEAKER) 0 % 0-1 (test aeny=9027) TISSUE [id number] 14:52:00Surgical Pathology Report Case: [id number] Authorizing Provider: Ricardo Wilson MD Collected: 08/02/2017 1715 Ordering Location: [facility] Endoscopy Received: 08/03/2017 0837 Services Pathologist: Larry Cohn MD Specimen: Rectal, MASS- TAKEN BY ESD, ON WAX, EVALUATE MARGINS RECTAL, 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)- NEGATIVE FOR HIGH GRADE DYSPLASIA OR CARCINOMA- PERIPHERAL MARGINS, NEGATIVE FOR ADENOMATOUS CHANGE Signing Pathologist Direct Phone Line: [phone] signed by Larry Cohn MD on 08/04/2017 at 2:52 [id number] polyp Rectal mass Received in formalin labeled [...] the diagnostic line.CBC W/PLT COUNT & AUTO [id number] 06:19:00 Test Item Value Reference Range Comments WHITE BLOOD CELL COUNT (BEAKER) (test ojaj=210) 15.6 K/ L 3.5-10.5 RED BLOOD CELL COUNT (BEAKER) (test kzdw=652) 3.50 M/ L 3.93-5.22 HEMOGLOBIN (BEAKER) (test jzcz=088) 9.9 GM/DL 11.2-15.7 HEMATOCRIT (BEAKER) (test iawt=334) 31.4 % 34.1-44.9 MEAN CORPUSCULAR VOLUME (BEAKER) (test itgm=242) 89.7 fL 79.4-94.8 MEAN CORPUSCULAR HEMOGLOBIN (BEAKER) (test 28.3 pg 25.6-32.2 eixx=031) MEAN CORPUSCULAR HEMOGLOBIN CONC (BEAKER) (test 31.5 GM/DL 32.2-35.5 hwos=083) RED CELL DISTRIBUTION WIDTH (BEAKER) (test 18.0 % 11.7-14.4 vzyc=524) PLATELET COUNT (BEAKER) (test ctrh=338) 223 K/CU MM 150-450 MEAN PLATELET VOLUME (BEAKER) (test yljm=331) 8.7 fL 9.4-12.3 NUCLEATED RED BLOOD CELLS (BEAKER) (test 0 /100 WBC 0-0 qfww=628) NEUTROPHILS RELATIVE PERCENT (BEAKER) (test 81 % mukq=526) LYMPHOCYTES RELATIVE PERCENT (BEAKER) (test 15 % oelo=476) MONOCYTES RELATIVE PERCENT (BEAKER) (test 4 % kahl=249) EOSINOPHILS RELATIVE PERCENT (BEAKER) (test 0 % tafn=668) BASOPHILS RELATIVE PERCENT (BEAKER) (test 0 % uugz=842) NEUTROPHILS ABSOLUTE COUNT (BEAKER) (test 12.56 K/ L 1.56-6.13 ibur=755) LYMPHOCYTES ABSOLUTE COUNT (BEAKER) (test 2.36 K/ L 1.18-3.74 idak=279) MONOCYTES ABSOLUTE COUNT (BEAKER) (test 0.56 K/ L 0.24-0.36 crrh=399) EOSINOPHILS ABSOLUTE COUNT (BEAKER) (test 0.03 K/ L 0.04-0.36 gzhr=962) BASOPHILS ABSOLUTE COUNT (BEAKER) (test 0.02 K/ L 0.01-0.08 kmbr=649) IMMATURE GRANULOCYTES-RELATIVE PERCENT (BEAKER) 0 % 0-1 (test albb=7976) HEPATIC FUNCTION [id number] 06:15:00 Test Item Value Reference Range Comments TOTAL PROTEIN (BEAKER) (test ttxn=129) 4.9 gm/dL 6.0-8.3 ALBUMIN (BEAKER) (test mkkb=6347) 2.8 g/dL 3.5-5.0 BILIRUBIN TOTAL (BEAKER) (test dhzt=821) 1.1 mg/dL 0.2-1.2 BILIRUBIN DIRECT (BEAKER) (test ozic=805) 0.5 mg/dL 0.1-0.5 ALKALINE PHOSPHATASE (BEAKER) (test obvo=205) 42 U/L 40-150 AST (SGOT) (BEAKER) (test tigq=161) 15 U/L 5-34 ALT (SGPT) (BEAKER) (test wrws=637) 12 U/L 6-55 BASIC METABOLIC [id number] 06:15:00 Test Item Value Reference Range Comments SODIUM (BEAKER) (test 139 meq/L 136-145 xbce=051) POTASSIUM (BEAKER) (test 4.6 meq/L 3.5-5.1 pvzo=839) CHLORIDE (BEAKER) (test 108 meq/L 98-107 kbkk=976) CO2 (BEAKER) (test 25 meq/L 22-29 ehhj=516) BLOOD UREA NITROGEN 13 mg/dL 7-21 (BEAKER) (test vttz=917) CREATININE (BEAKER) (test 0.73 mg/dL 0.57-1.25 bodz=240) GLUCOSE RANDOM (BEAKER) 115 mg/dL 70-105 (test taoi=969) CALCIUM (BEAKER) (test 8.5 mg/dL 8.4-10.2 amzb=468) EGFR (BEAKER) (test 76 mL/min/1.73 sq m ESTIMATED GFR IS NOT hfkb=1423) ACCURATE CREATININE CLEARANCE IN PREDICTING GLOMERULAR FILTRATION RATE. ESTIMATED GFR IS NOT APPLICABLE FOR DIALYSIS PATIENTS. PROTHROMBIN [id number] 05:59:00 Test Item Value Reference Range Comments PROTIME (BEAKER) (test uxgc=679) 14.6 seconds 11.7-14.7 INR (BEAKER) (test sxrq=526) 1.1 <=5.9 RECOMMENDED COUMADIN/WARFARIN INR THERAPY RANGESSTANDARD DOSE: 2.0 - 3.0 Includes: PROPHYLAXIS forvenous thrombosis, systemic embolization; TREATMENT for venous thrombosis and/or pulmonary embolus.HIGH RISK: Target INR is 2.5-3.5 for patients with mechanical heart valves.URINALYSIS W/ [id number] 14 :53:00 Test Item Value Reference Range Comments COLOR (BEAKER) (test cuqv=949) Yellow CLARITY (BEAKER) (test utua=893) Clear SPECIFIC GRAVITY UA (BEAKER) (test adli=833) 1.010 1.001-1.035 PH UA (BEAKER) (test yqzr=592) 5.5 5.0-8.0 PROTEIN UA (BEAKER) (test qjpw=039) Negative Negative GLUCOSE UA (BEAKER) (test jslx=219) Negative Negative KETONES UA (BEAKER) (test aoql=460) Trace Negative BILIRUBIN UA (BEAKER) (test syyu=346) Negative Negative BLOOD UA (BEAKER) (test onzl=238) Negative Negative NITRITE UA (BEAKER) (test gqag=260) Negative Negative LEUKOCYTE ESTERASE UA (BEAKER) (test rdwj=622) Negative Negative UROBILINOGEN UA (BEAKER) (test eiij=516) 0.2 mg/dL 0.2-1.0 RBC UA (BEAKER) (test uyyq=422) 1 /HPF WBC UA (BEAKER) (test pgfz=206) 3 /HPF MUCUS (BEAKER) (test fudm=6106) Few SQUAMOUS EPITHELIAL (BEAKER) (test iuee=632) < /HPF HYALINE CASTS (BEAKER) (test eoqz=923) 2 /LPF SOURCE(BEAKER) (test glig=1292) HEPATIC FUNCTION [id number] 06:31:00 Test Item Value Reference Range Comments TOTAL PROTEIN (BEAKER) (test jpnl=474) 5.2 gm/dL 6.0-8.3 ALBUMIN (BEAKER) (test wpty=5405) 3.1 g/dL 3.5-5.0 BILIRUBIN TOTAL (BEAKER) (test jpjq=886) 1.1 mg/dL 0.2-1.2 BILIRUBIN DIRECT (BEAKER) (test urno=580) 0.5 mg/dL 0.1-0.5 ALKALINE PHOSPHATASE (BEAKER) (test cfdv=911) 47 U/L 40-150 AST (SGOT) (BEAKER) (test mpqd=841) 20 U/L 5-34 ALT (SGPT) (BEAKER) (test vkcp=513) 15 U/L 6-55 BASIC METABOLIC [id number] 06:31:00 Test Item Value Reference Range Comments SODIUM (BEAKER) (test 139 meq/L 136-145 nmqa=887) POTASSIUM (BEAKER) (test 2.7 meq/L 3.5-5.1 suut=673) CHLORIDE (BEAKER) (test 106 meq/L 98-107 svqw=663) CO2 (BEAKER) (test 24 meq/L 22-29 lbti=510) BLOOD UREA NITROGEN 7 mg/dL 7-21 (BEAKER) (test bryz=827) CREATININE (BEAKER) (test 0.61 mg/dL 0.57-1.25 vpia=423) GLUCOSE RANDOM (BEAKER) 88 mg/dL 70-105 (test bxsz=904) CALCIUM (BEAKER) (test 8.4 mg/dL 8.4-10.2 mahj=845) EGFR (BEAKER) (test 93 mL/min/1.73 sq m ESTIMATED GFR IS NOT kaqz=3152) ACCURATE CREATININE CLEARANCE IN PREDICTING GLOMERULAR FILTRATION RATE. ESTIMATED GFR IS NOT APPLICABLE FOR DIALYSIS PATIENTS. BASIC METABOLIC [id number] 06:30:00 Test Item Value Reference Range Comments SODIUM (BEAKER) (test 136 meq/L 136-145 ntsz=678) POTASSIUM (BEAKER) (test 3.0 meq/L 3.5-5.1 Specimen slightly ekdx=595) hemolyzed CHLORIDE (BEAKER) (test 106 meq/L 98-107 rgqv=388) CO2 (BEAKER) (test 20 meq/L 22-29 wrwt=955) BLOOD UREA NITROGEN 7 mg/dL 7-21 (BEAKER) (test ldsz=692) CREATININE (BEAKER) (test 0.61 mg/dL 0.57-1.25 Specimen slightly zpoy=431) hemolyzed GLUCOSE RANDOM (BEAKER) 81 mg/dL 70-105 (test skus=995) CALCIUM (BEAKER) (test 8.2 mg/dL 8.4-10.2 iqay=605) EGFR (BEAKER) (test 93 mL/min/1.73 sq m ESTIMATED GFR IS NOT grup=6640) ACCURATE CREATININE CLEARANCE IN PREDICTING GLOMERULAR FILTRATION RATE. ESTIMATED GFR IS NOT APPLICABLE FOR DIALYSIS PATIENTS. CBC W/PLT COUNT & AUTO [id number] 06:25:00 Test Item Value Reference Range Comments WHITE BLOOD CELL COUNT (BEAKER) (test ifvo=226) 14.6 K/ L 3.5-10.5 RED BLOOD CELL COUNT (BEAKER) (test gnyq=491) 3.75 M/ L 3.93-5.22 HEMOGLOBIN (BEAKER) (test zqjf=711) 10.5 GM/DL 11.2-15.7 HEMATOCRIT (BEAKER) (test awwa=359) 33.1 % 34.1-44.9 MEAN CORPUSCULAR VOLUME (BEAKER) (test bivy=762) 88.3 fL 79.4-94.8 MEAN CORPUSCULAR HEMOGLOBIN (BEAKER) (test 28.0 pg 25.6-32.2 tzrq=356) MEAN CORPUSCULAR HEMOGLOBIN CONC (BEAKER) (test 31.7 GM/DL 32.2-35.5 ztnj=477) RED CELL DISTRIBUTION WIDTH (BEAKER) (test 17.5 % 11.7-14.4 stbe=568) PLATELET COUNT (BEAKER) (test cbuh=142) 246 K/CU MM 150-450 MEAN PLATELET VOLUME (BEAKER) (test qlxt=495) 8.9 fL 9.4-12.3 NUCLEATED RED BLOOD CELLS (BEAKER) (test 0 /100 WBC 0-0 zhpa=677) NEUTROPHILS RELATIVE PERCENT (BEAKER) (test 88 % oheh=082) LYMPHOCYTES RELATIVE PERCENT (BEAKER) (test 5 % uvvx=092) MONOCYTES RELATIVE PERCENT (BEAKER) (test 6 % pnwv=103) EOSINOPHILS RELATIVE PERCENT (BEAKER) (test 0 % eors=038) BASOPHILS RELATIVE PERCENT (BEAKER) (test 0 % xxyo=934) NEUTROPHILS ABSOLUTE COUNT (BEAKER) (test 12.85 K/ L 1.56-6.13 mshw=857) LYMPHOCYTES ABSOLUTE COUNT (BEAKER) (test 0.71 K/ L 1.18-3.74 pdeh=860) MONOCYTES ABSOLUTE COUNT (BEAKER) (test 0.94 K/ L 0.24-0.36 pdpe=881) EOSINOPHILS ABSOLUTE COUNT (BEAKER) (test 0.00 K/ L 0.04-0.36 mrwa=789) BASOPHILS ABSOLUTE COUNT (BEAKER) (test 0.02 K/ L 0.01-0.08 ruxt=736) IMMATURE GRANULOCYTES-RELATIVE PERCENT (BEAKER) 1 % 0-1 (test tuyn=3413) PROTHROMBIN TIME/[id number] 06:21:00 Test Item Value Reference Range Comments PROTIME (BEAKER) (test itcr=025) 13.5 seconds 11.7-14.7 INR (BEAKER) (test vkps=524) 1.0 <=5.9 RECOMMENDED COUMADIN/WARFARIN INR THERAPY RANGESSTANDARD DOSE: 2.0 - 3.0 Includes: PROPHYLAXIS forvenous thrombosis, systemic embolization; TREATMENT for venous thrombosis and/or pulmonary embolus.HIGH RISK: Target INR is 2.5-3.5 for patients with mechanical heart valves.
--- OUTSIDE RECORDS SUMMARY | 2018-11-27 13:38 | XMS REPORT | Clinical Summary ---
:1930 Author Organization [facility] Address [address] [place] [address] Care Team Providers Name Role Phone Hasmukh [...] RHYTHM STRIP - SCAN 02/09/2018 2:43 PM COLLECTIONS OFFICER after 11/26/2017 Results RHYTHM STRIP - SCAN (02/09/2018 2:43 PM COLLECTIONS OFFICER) Narrative Performed At after 11/26/2017 Insurance Payer Benefit Plan / Group Subscriber ID Type Phone Address [facility] - MEDICARE [place] MEDICARE HMO xxxxxxxxx [employer]ARE [facility] - [employer] [place] PPO OPTIONS xxxxxxxxx PPO Advance Directives For more information, please contact:[address] [phone] Code Status Date Activated Date Inactivated Comments [...]
--- NOTE | 2018-11-27 16:29 | ER ---
Nurse's Notes [facility] Name: Elva Jenkins Age: 88 yrs Sex: Female : 1930 Arrival Date: 11/27/2018 Time: 13:36 Bed Waiting Private MD: Bharti Pollock C Diagnosis: Presentation: 11/27 13:56 Presenting complaint: Patient states: was discharged this morning from here and dx with sv the flu and sent home with zofran and tamiflu. Pt reports nausea and flu symptoms still persist. Transition of care: patient was not received from another setting of care. Onset of symptoms was November 27, 2018. Risk Assessment: Do you want to hurt yourself or someone else? Patient reports no desire to harm self or others. Care prior to arrival: None. 13:56 Method Of Arrival: Wheelchair sv 13:56 Acuity: TAVON 4 sv Triage Assessment: 13:56 General: Appears in no apparent distress. uncomfortable, Behavior is calm, cooperative. sv Neuro: Level of Consciousness is awake, alert, obeys commands, Moves all extremities. Full function. Neuro: Reports weakness. Respiratory: Respiratory effort is even, unlabored, Respiratory pattern is regular, symmetrical. GI: Reports nausea. Historical: - Allergies: 13:58 Asacol; sv 13:58 Humira; sv 13:58 Methotrexate; sv 13:58 Orencia; sv 13:58 Phenergan; sv 13:58 Sulfazine; sv Vital Signs: 13:58 BP 140 / 72; Pulse 77; Resp 18; Temp 98.2(O); Pulse Ox 99% ; sv ED Course: 13:36 Patient arrived in ED. as 13:37 Bharti Pollock MD is Private Physician. as 13:58 Triage completed. sv 13:59 Arm band placed on. sv Administered Medications: No medications were administered Outcome: 16:28 Patient left the ED. sv Signatures: Marylu Chris RN RN Ivana [place] as
[2018-11-27 16:58] VITALS: BP 140/72; TEMP 98.2; O2SAT 99
== END 2018-11-27 16:28 | disposition left against medical advice (07) ==
LOC: ER 13:34
DX: Z53.21 Procedure and treatment not carried out due to patient leaving prior to being seen by health care provider (principal)
CPT/HCPCS: 99281

== ENCOUNTER 2018-11-27 16:31 | Observation (INO) | payer OTHER ==
--- OUTSIDE RECORDS SUMMARY | 2018-11-27 16:34 | XMS REPORT | Clinical Summary ---
:1930 Author Organization [facility] Address [address] [place] [address] Care Team Providers Name Role Phone Hasmukh [...] RHYTHM STRIP - SCAN 02/09/2018 2:43 PM OCCUPATIONAL THERAPY DEPARTMENT CHAIR after 11/26/2017 Results RHYTHM STRIP - SCAN (02/09/2018 2:43 PM OCCUPATIONAL THERAPY DEPARTMENT CHAIR) Narrative Performed At after 11/26/2017 Insurance Payer Benefit Plan / Group Subscriber ID Type Phone Address [facility] - MEDICARE [place] MEDICARE HMO xxxxxxxxx [employer] CARE [facility] - [employer] [place] PPO OPTIONS xxxxxxxxx PPO Advance Directives For more information, please contact:[address] [phone] Code Status Date Activated Date Inactivated Comments [...]
--- OUTSIDE RECORDS SUMMARY | 2018-11-27 16:34 | XMS REPORT ---
:1930 [facility] Address [address] [place] [address] Dr. Marsh [address] [place] [id number] Care Team Providers Name Role Phone KIM MCKEON ZARI Unavailable Unavailable RICARDO WILSON Unavailable Unavailable Problems This patient has no known problems. Allergies, Adverse Reactions, Alerts This patient has no known allergies or adverse reactions. Medications This patient has no known medications. Results Test Description Test Time Test Comments Text Results Atomic Results Result Comments TISSUE EXAM 2017-09-20 16:22:00 Surgical Pathology Report Case: [id number] Authorizing Provider: Misha Calloway MD Collected: 09/16/2017 1538 Ordering Location: [address] Received: 09/19/2017 0820 Service Pathologist: Larry Cohn MD Specimen: Polyp, Colon - Rectosigmoid, POLYP TAKEN BY HOT SNARE RECTO-SIGMOID, POLYPECTOMY- TUBULAR ADENOMA- CAUTERIZED EDGE, NEGATIVE FOR ADENOMATOUS CHANGE Signing Pathologist Direct Phone Line: [phone] signed by Larry Cohn MD on 09/20/2017 at 4:22 [id number] bleedRectosigmoid colon polypThe specimen is received in [...] Value Reference Range Comments MAGNESIUM (BEAKER) (test cszm=655) 1.9 mg/dL 1.6-2.6 BASIC METABOLIC [id number] 07:32:00 Test Item Value Reference Range Comments SODIUM (BEAKER) (test 138 meq/L 136-145 viks=606) POTASSIUM (BEAKER) (test 4.2 meq/L 3.5-5.1 rsdx=437) CHLORIDE (BEAKER) (test 106 meq/L 98-107 sppd=482) CO2 (BEAKER) (test 25 meq/L 22-29 qona=719) BLOOD UREA NITROGEN 6 mg/dL 7-21 (BEAKER) (test quvg=904) CREATININE (BEAKER) (test 0.66 mg/dL 0.57-1.25 jsji=982) GLUCOSE RANDOM (BEAKER) 76 mg/dL 70-105 (test pekz=304) CALCIUM (BEAKER) (test 8.4 mg/dL 8.4-10.2 zokr=662) EGFR (BEAKER) (test 85 mL/min/1.73 sq m ESTIMATED GFR IS NOT qlny=1741) ACCURATE CREATININE CLEARANCE IN PREDICTING GLOMERULAR FILTRATION RATE. ESTIMATED GFR IS NOT APPLICABLE FOR DIALYSIS PATIENTS. [id number] 06:42:00 Test Item Value Reference Range Comments PROTIME (BEAKER) (test xlza=801) 20.8 seconds 11.7-14.7 INR (BEAKER) (test tdlq=399) 1.8 <=5.9 PARTIAL THROMBOPLASTIN TIME (BEAKER) (test 36.1 seconds 22.5-36.0 nvfj=876) RECOMMENDED COUMADIN/WARFARIN INR THERAPY RANGESSTANDARD DOSE: 2.0 - 3.0 Includes: PROPHYLAXIS forvenous thrombosis, systemic embolization; TREATMENT for venous thrombosis and/or pulmonary embolus.HIGH RISK: Target INR is 2.5-3.5 for patients with mechanical heart valves.CBC W/PLT COUNT & AUTO [id number] 06:41:00 Test Item Value Reference Range Comments WHITE BLOOD CELL COUNT (BEAKER) (test npzi=202) 5.5 K/ L 3.5-10.5 RED BLOOD CELL COUNT (BEAKER) (test nuxg=760) 3.52 M/ L 3.93-5.22 HEMOGLOBIN (BEAKER) (test ymsz=218) 10.4 GM/DL 11.2-15.7 HEMATOCRIT (BEAKER) (test vapi=708) 33.1 % 34.1-44.9 MEAN CORPUSCULAR VOLUME (BEAKER) (test kfew=226) 94.0 fL 79.4-94.8 MEAN CORPUSCULAR HEMOGLOBIN (BEAKER) (test 29.5 pg 25.6-32.2 wroa=001) MEAN CORPUSCULAR HEMOGLOBIN CONC (BEAKER) (test 31.4 GM/DL 32.2-35.5 nxfo=678) RED CELL DISTRIBUTION WIDTH (BEAKER) (test 19.8 % 11.7-14.4 soez=503) PLATELET COUNT (BEAKER) (test jgzs=588) 240 K/CU MM 150-450 MEAN PLATELET VOLUME (BEAKER) (test oeoj=057) 8.5 fL 9.4-12.3 NUCLEATED RED BLOOD CELLS (BEAKER) (test 0 /100 WBC 0-0 pbtp=235) NEUTROPHILS RELATIVE PERCENT (BEAKER) (test 43 % mbgc=395) LYMPHOCYTES RELATIVE PERCENT (BEAKER) (test 49 % avgd=044) MONOCYTES RELATIVE PERCENT (BEAKER) (test 7 % pnei=930) EOSINOPHILS RELATIVE PERCENT (BEAKER) (test 1 % xttd=573) BASOPHILS RELATIVE PERCENT (BEAKER) (test 0 % dsli=493) NEUTROPHILS ABSOLUTE COUNT (BEAKER) (test 2.34 K/ L 1.56-6.13 lqjr=118) LYMPHOCYTES ABSOLUTE COUNT (BEAKER) (test 2.68 K/ L 1.18-3.74 pomh=382) MONOCYTES ABSOLUTE COUNT (BEAKER) (test 0.38 K/ L 0.24-0.36 zkzn=161) EOSINOPHILS ABSOLUTE COUNT (BEAKER) (test 0.05 K/ L 0.04-0.36 lygi=060) BASOPHILS ABSOLUTE COUNT (BEAKER) (test 0.02 K/ L 0.01-0.08 owea=663) IMMATURE GRANULOCYTES-RELATIVE PERCENT (BEAKER) 0 % 0-1 (test qmxy=9721) [id number] 19:07:00 Test Item Value Reference Range Comments MAGNESIUM (BEAKER) (test lsov=957) 1.9 mg/dL 1.6-2.6 BASIC METABOLIC [id number] 19:07:00 Test Item Value Reference Range Comments SODIUM (BEAKER) (test 137 meq/L 136-145 zbxv=832) POTASSIUM (BEAKER) (test 3.8 meq/L 3.5-5.1 pbam=371) CHLORIDE (BEAKER) (test 106 meq/L 98-107 zayt=237) CO2 (BEAKER) (test 23 meq/L 22-29 smun=130) BLOOD UREA NITROGEN 6 mg/dL 7-21 (BEAKER) (test klfz=323) CREATININE (BEAKER) (test 0.64 mg/dL 0.57-1.25 maaz=422) GLUCOSE RANDOM (BEAKER) 82 mg/dL 70-105 (test nwnm=791) CALCIUM (BEAKER) (test 8.5 mg/dL 8.4-10.2 mhib=750) EGFR (BEAKER) (test 88 mL/min/1.73 sq m ESTIMATED GFR IS NOT hlsy=6381) ACCURATE CREATININE CLEARANCE IN PREDICTING GLOMERULAR FILTRATION RATE. ESTIMATED GFR IS NOT APPLICABLE FOR DIALYSIS PATIENTS. CBC (HEMOGRAM ONLY)2017-09-16 18:38:00 Test Item Value Reference Range Comments WHITE BLOOD CELL COUNT (BEAKER) (test ceyv=858) 6.5 K/ L 3.5-10.5 RED BLOOD CELL COUNT (BEAKER) (test xgbd=902) 3.61 M/ L 3.93-5.22 HEMOGLOBIN (BEAKER) (test ihmw=087) 10.9 GM/DL 11.2-15.7 HEMATOCRIT (BEAKER) (test dtrg=503) 33.5 % 34.1-44.9 MEAN CORPUSCULAR VOLUME (BEAKER) (test nlmn=258) 92.8 fL 79.4-94.8 MEAN CORPUSCULAR HEMOGLOBIN (BEAKER) (test 30.2 pg 25.6-32.2 xmkp=387) MEAN CORPUSCULAR HEMOGLOBIN CONC (BEAKER) (test 32.5 GM/DL 32.2-35.5 ttqo=267) RED CELL DISTRIBUTION WIDTH (BEAKER) (test 19.8 % 11.7-14.4 qkqd=783) PLATELET COUNT (BEAKER) (test bpua=028) 239 K/CU MM 150-450 MEAN PLATELET VOLUME (BEAKER) (test gmts=190) 8.7 fL 9.4-12.3 NUCLEATED RED BLOOD CELLS (BEAKER) (test 0 /100 WBC 0-0 lkoe=983) [id number] 06:56:00 Test Item Value Reference Range Comments PHOSPHORUS (BEAKER) (test pzek=490) 2.7 mg/dL 2.3-4.7 [id number] 06:56:00 Test Item Value Reference Range Comments MAGNESIUM (BEAKER) (test jrqo=323) 1.9 mg/dL 1.6-2.6 BASIC METABOLIC [id number] 06:56:00 Test Item Value Reference Range Comments SODIUM (BEAKER) (test 139 meq/L 136-145 rljh=400) POTASSIUM (BEAKER) (test 4.1 meq/L 3.5-5.1 maqp=975) CHLORIDE (BEAKER) (test 107 meq/L 98-107 rfsf=247) CO2 (BEAKER) (test 26 meq/L 22-29 czqj=243) BLOOD UREA NITROGEN 11 mg/dL 7-21 (BEAKER) (test wxrg=868) CREATININE (BEAKER) (test 0.73 mg/dL 0.57-1.25 wedw=694) GLUCOSE RANDOM (BEAKER) 107 mg/dL 70-105 (test njro=837) CALCIUM (BEAKER) (test 8.5 mg/dL 8.4-10.2 ihua=433) EGFR (BEAKER) (test 76 mL/min/1.73 sq m ESTIMATED GFR IS NOT dwnr=6170) ACCURATE CREATININE CLEARANCE IN PREDICTING GLOMERULAR FILTRATION RATE. ESTIMATED GFR IS NOT APPLICABLE FOR DIALYSIS PATIENTS. HEPATIC FUNCTION [id number] 06:56:00 Test Item Value Reference Range Comments TOTAL PROTEIN (BEAKER) (test qbyb=173) 5.2 gm/dL 6.0-8.3 ALBUMIN (BEAKER) (test jony=8658) 2.9 g/dL 3.5-5.0 BILIRUBIN TOTAL (BEAKER) (test kedz=919) 0.8 mg/dL 0.2-1.2 BILIRUBIN DIRECT (BEAKER) (test olmc=273) 0.4 mg/dL 0.1-0.5 ALKALINE PHOSPHATASE (BEAKER) (test mxak=962) 43 U/L 40-150 AST (SGOT) (BEAKER) (test ocxk=154) 13 U/L 5-34 ALT (SGPT) (BEAKER) (test bkgt=694) 10 U/L 6-55 CALCIUM, [id number] 06:36:00 Test Item Value Reference Range Comments CALCIUM IONIZED (BEAKER) (test bnlt=424) 1.05 mmol/L 1.12-1.27 PH, BLOOD (BEAKER) (test vukb=3967) 7.46 PROTHROMBIN [id number] 06:35:00 Test Item Value Reference Range Comments PROTIME (BEAKER) (test xwot=670) 14.2 seconds 11.7-14.7 INR (BEAKER) (test lwfc=861) 1.1 <=5.9 RECOMMENDED COUMADIN/WARFARIN INR THERAPY RANGESSTANDARD DOSE: 2.0 - 3.0 Includes: PROPHYLAXIS forvenous thrombosis, systemic embolization; TREATMENT for venous thrombosis and/or pulmonary embolus.HIGH RISK: Target INR is 2.5-3.5 for patients with mechanical heart valves.CBC W/PLT COUNT & AUTO [id number] 06:25:00 Test Item Value Reference Range Comments WHITE BLOOD CELL COUNT (BEAKER) (test yolf=736) 9.4 K/ L 3.5-10.5 RED BLOOD CELL COUNT (BEAKER) (test wsfr=205) 3.48 M/ L 3.93-5.22 HEMOGLOBIN (BEAKER) (test pmig=429) 10.0 GM/DL 11.2-15.7 HEMATOCRIT (BEAKER) (test mrld=138) 31.1 % 34.1-44.9 MEAN CORPUSCULAR VOLUME (BEAKER) (test rkqh=357) 89.4 fL 79.4-94.8 MEAN CORPUSCULAR HEMOGLOBIN (BEAKER) (test 28.7 pg 25.6-32.2 dahj=211) MEAN CORPUSCULAR HEMOGLOBIN CONC (BEAKER) (test 32.2 GM/DL 32.2-35.5 fsrk=236) RED CELL DISTRIBUTION WIDTH (BEAKER) (test 18.3 % 11.7-14.4 viqp=619) PLATELET COUNT (BEAKER) (test cqfi=999) 234 K/CU MM 150-450 MEAN PLATELET VOLUME (BEAKER) (test hwha=458) 8.9 fL 9.4-12.3 NUCLEATED RED BLOOD CELLS (BEAKER) (test 0 /100 WBC 0-0 qnaz=406) NEUTROPHILS RELATIVE PERCENT (BEAKER) (test 70 % qyfq=330) LYMPHOCYTES RELATIVE PERCENT (BEAKER) (test 24 % xlmp=213) MONOCYTES RELATIVE PERCENT (BEAKER) (test 5 % qdic=319) EOSINOPHILS RELATIVE PERCENT (BEAKER) (test 0 % hoge=654) BASOPHILS RELATIVE PERCENT (BEAKER) (test 0 % cgcb=848) NEUTROPHILS ABSOLUTE COUNT (BEAKER) (test 6.54 K/ L 1.56-6.13 zumo=617) LYMPHOCYTES ABSOLUTE COUNT (BEAKER) (test 2.30 K/ L 1.18-3.74 dqvx=772) MONOCYTES ABSOLUTE COUNT (BEAKER) (test 0.50 K/ L 0.24-0.36 hbbm=146) EOSINOPHILS ABSOLUTE COUNT (BEAKER) (test 0.03 K/ L 0.04-0.36 xnyk=022) BASOPHILS ABSOLUTE COUNT (BEAKER) (test 0.02 K/ L 0.01-0.08 ufuk=012) IMMATURE GRANULOCYTES-RELATIVE PERCENT (BEAKER) 0 % 0-1 (test hdze=4719) TISSUE [id number] 14:52:00Surgical Pathology Report Case: [id number] Authorizing Provider: Ricardo Wilson MD Collected: 08/02/2017 1715 Ordering Location: 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)- NEGATIVE FOR HIGH GRADE DYSPLASIA OR CARCINOMA- PERIPHERAL MARGINS, NEGATIVE FOR ADENOMATOUS CHANGE Signing Pathologist Direct Phone Line: [phone] signed by Larry Cohn MD on 08/04/2017 at 2:52 [id number] polyp Rectal mass Received in formalin labeled [...] the diagnostic line.CBC W/PLT COUNT & AUTO [id number] 06:19:00 Test Item Value Reference Range Comments WHITE BLOOD CELL COUNT (BEAKER) (test gtpm=908) 15.6 K/ L 3.5-10.5 RED BLOOD CELL COUNT (BEAKER) (test msue=301) 3.50 M/ L 3.93-5.22 HEMOGLOBIN (BEAKER) (test iihn=925) 9.9 GM/DL 11.2-15.7 HEMATOCRIT (BEAKER) (test vbyy=434) 31.4 % 34.1-44.9 MEAN CORPUSCULAR VOLUME (BEAKER) (test jhvw=856) 89.7 fL 79.4-94.8 MEAN CORPUSCULAR HEMOGLOBIN (BEAKER) (test 28.3 pg 25.6-32.2 dcic=278) MEAN CORPUSCULAR HEMOGLOBIN CONC (BEAKER) (test 31.5 GM/DL 32.2-35.5 goik=642) RED CELL DISTRIBUTION WIDTH (BEAKER) (test 18.0 % 11.7-14.4 hrrk=602) PLATELET COUNT (BEAKER) (test wmam=693) 223 K/CU MM 150-450 MEAN PLATELET VOLUME (BEAKER) (test qbrn=774) 8.7 fL 9.4-12.3 NUCLEATED RED BLOOD CELLS (BEAKER) (test 0 /100 WBC 0-0 kiuq=113) NEUTROPHILS RELATIVE PERCENT (BEAKER) (test 81 % iwqh=226) LYMPHOCYTES RELATIVE PERCENT (BEAKER) (test 15 % mzcd=319) MONOCYTES RELATIVE PERCENT (BEAKER) (test 4 % anqv=042) EOSINOPHILS RELATIVE PERCENT (BEAKER) (test 0 % yegr=101) BASOPHILS RELATIVE PERCENT (BEAKER) (test 0 % ddww=867) NEUTROPHILS ABSOLUTE COUNT (BEAKER) (test 12.56 K/ L 1.56-6.13 pacw=088) LYMPHOCYTES ABSOLUTE COUNT (BEAKER) (test 2.36 K/ L 1.18-3.74 jdpm=538) MONOCYTES ABSOLUTE COUNT (BEAKER) (test 0.56 K/ L 0.24-0.36 sbfr=711) EOSINOPHILS ABSOLUTE COUNT (BEAKER) (test 0.03 K/ L 0.04-0.36 fypl=888) BASOPHILS ABSOLUTE COUNT (BEAKER) (test 0.02 K/ L 0.01-0.08 ojlq=691) IMMATURE GRANULOCYTES-RELATIVE PERCENT (BEAKER) 0 % 0-1 (test rstp=6950) HEPATIC FUNCTION [id number] 06:15:00 Test Item Value Reference Range Comments TOTAL PROTEIN (BEAKER) (test svcb=146) 4.9 gm/dL 6.0-8.3 ALBUMIN (BEAKER) (test fqbx=3952) 2.8 g/dL 3.5-5.0 BILIRUBIN TOTAL (BEAKER) (test ykqj=246) 1.1 mg/dL 0.2-1.2 BILIRUBIN DIRECT (BEAKER) (test fctx=950) 0.5 mg/dL 0.1-0.5 ALKALINE PHOSPHATASE (BEAKER) (test ipxv=683) 42 U/L 40-150 AST (SGOT) (BEAKER) (test nbnz=690) 15 U/L 5-34 ALT (SGPT) (BEAKER) (test juqv=366) 12 U/L 6-55 BASIC METABOLIC [id number] 06:15:00 Test Item Value Reference Range Comments SODIUM (BEAKER) (test 139 meq/L 136-145 yaue=007) POTASSIUM (BEAKER) (test 4.6 meq/L 3.5-5.1 gaxi=519) CHLORIDE (BEAKER) (test 108 meq/L 98-107 eoaz=035) CO2 (BEAKER) (test 25 meq/L 22-29 xjfa=899) BLOOD UREA NITROGEN 13 mg/dL 7-21 (BEAKER) (test qiol=028) CREATININE (BEAKER) (test 0.73 mg/dL 0.57-1.25 mxea=011) GLUCOSE RANDOM (BEAKER) 115 mg/dL 70-105 (test wxdn=726) CALCIUM (BEAKER) (test 8.5 mg/dL 8.4-10.2 crnh=054) EGFR (BEAKER) (test 76 mL/min/1.73 sq m ESTIMATED GFR IS NOT lzgn=0175) ACCURATE CREATININE CLEARANCE IN PREDICTING GLOMERULAR FILTRATION RATE. ESTIMATED GFR IS NOT APPLICABLE FOR DIALYSIS PATIENTS. PROTHROMBIN [id number] 05:59:00 Test Item Value Reference Range Comments PROTIME (BEAKER) (test bbff=565) 14.6 seconds 11.7-14.7 INR (BEAKER) (test ypxy=999) 1.1 <=5.9 RECOMMENDED COUMADIN/WARFARIN INR THERAPY RANGESSTANDARD DOSE: 2.0 - 3.0 Includes: PROPHYLAXIS forvenous thrombosis, systemic embolization; TREATMENT for venous thrombosis and/or pulmonary embolus.HIGH RISK: Target INR is 2.5-3.5 for patients with mechanical heart valves.URINALYSIS W/ [id number] 14 :53:00 Test Item Value Reference Range Comments COLOR (BEAKER) (test iypu=054) Yellow CLARITY (BEAKER) (test fyzi=991) Clear SPECIFIC GRAVITY UA (BEAKER) (test urda=238) 1.010 1.001-1.035 PH UA (BEAKER) (test cjkb=413) 5.5 5.0-8.0 PROTEIN UA (BEAKER) (test wtyo=838) Negative Negative GLUCOSE UA (BEAKER) (test iilt=285) Negative Negative KETONES UA (BEAKER) (test tcbl=924) Trace Negative BILIRUBIN UA (BEAKER) (test nyty=510) Negative Negative BLOOD UA (BEAKER) (test girg=938) Negative Negative NITRITE UA (BEAKER) (test zdws=071) Negative Negative LEUKOCYTE ESTERASE UA (BEAKER) (test kixw=066) Negative Negative UROBILINOGEN UA (BEAKER) (test ynmc=475) 0.2 mg/dL 0.2-1.0 RBC UA (BEAKER) (test kbla=086) 1 /HPF WBC UA (BEAKER) (test ubis=110) 3 /HPF MUCUS (BEAKER) (test uwlc=1809) Few SQUAMOUS EPITHELIAL (BEAKER) (test zxjr=107) < /HPF HYALINE CASTS (BEAKER) (test wzdq=146) 2 /LPF SOURCE(BEAKER) (test euks=2291) HEPATIC FUNCTION [id number] 06:31:00 Test Item Value Reference Range Comments TOTAL PROTEIN (BEAKER) (test lvdl=205) 5.2 gm/dL 6.0-8.3 ALBUMIN (BEAKER) (test gury=0265) 3.1 g/dL 3.5-5.0 BILIRUBIN TOTAL (BEAKER) (test bqnm=471) 1.1 mg/dL 0.2-1.2 BILIRUBIN DIRECT (BEAKER) (test inac=835) 0.5 mg/dL 0.1-0.5 ALKALINE PHOSPHATASE (BEAKER) (test dzmg=549) 47 U/L 40-150 AST (SGOT) (BEAKER) (test syqw=770) 20 U/L 5-34 ALT (SGPT) (BEAKER) (test wnss=979) 15 U/L 6-55 BASIC METABOLIC [id number] 06:31:00 Test Item Value Reference Range Comments SODIUM (BEAKER) (test 139 meq/L 136-145 hfhm=124) POTASSIUM (BEAKER) (test 2.7 meq/L 3.5-5.1 jkgu=440) CHLORIDE (BEAKER) (test 106 meq/L 98-107 adkr=874) CO2 (BEAKER) (test 24 meq/L 22-29 qfht=484) BLOOD UREA NITROGEN 7 mg/dL 7-21 (BEAKER) (test rlvj=984) CREATININE (BEAKER) (test 0.61 mg/dL 0.57-1.25 mqqm=977) GLUCOSE RANDOM (BEAKER) 88 mg/dL 70-105 (test hxrd=997) CALCIUM (BEAKER) (test 8.4 mg/dL 8.4-10.2 utlc=860) EGFR (BEAKER) (test 93 mL/min/1.73 sq m ESTIMATED GFR IS NOT yrpt=8973) ACCURATE CREATININE CLEARANCE IN PREDICTING GLOMERULAR FILTRATION RATE. ESTIMATED GFR IS NOT APPLICABLE FOR DIALYSIS PATIENTS. BASIC METABOLIC [id number] 06:30:00 Test Item Value Reference Range Comments SODIUM (BEAKER) (test 136 meq/L 136-145 sior=194) POTASSIUM (BEAKER) (test 3.0 meq/L 3.5-5.1 Specimen slightly zjvi=395) hemolyzed CHLORIDE (BEAKER) (test 106 meq/L 98-107 ckmv=562) CO2 (BEAKER) (test 20 meq/L 22-29 zhwf=906) BLOOD UREA NITROGEN 7 mg/dL 7-21 (BEAKER) (test bsuc=677) CREATININE (BEAKER) (test 0.61 mg/dL 0.57-1.25 Specimen slightly kvom=911) hemolyzed GLUCOSE RANDOM (BEAKER) 81 mg/dL 70-105 (test ldsj=213) CALCIUM (BEAKER) (test 8.2 mg/dL 8.4-10.2 bafc=605) EGFR (BEAKER) (test 93 mL/min/1.73 sq m ESTIMATED GFR IS NOT wfrw=8908) ACCURATE CREATININE CLEARANCE IN PREDICTING GLOMERULAR FILTRATION RATE. ESTIMATED GFR IS NOT APPLICABLE FOR DIALYSIS PATIENTS. CBC W/PLT COUNT & AUTO [id number] 06:25:00 Test Item Value Reference Range Comments WHITE BLOOD CELL COUNT (BEAKER) (test txht=566) 14.6 K/ L 3.5-10.5 RED BLOOD CELL COUNT (BEAKER) (test dzzd=086) 3.75 M/ L 3.93-5.22 HEMOGLOBIN (BEAKER) (test lvjf=241) 10.5 GM/DL 11.2-15.7 HEMATOCRIT (BEAKER) (test evkv=041) 33.1 % 34.1-44.9 MEAN CORPUSCULAR VOLUME (BEAKER) (test pqgq=452) 88.3 fL 79.4-94.8 MEAN CORPUSCULAR HEMOGLOBIN (BEAKER) (test 28.0 pg 25.6-32.2 nptl=448) MEAN CORPUSCULAR HEMOGLOBIN CONC (BEAKER) (test 31.7 GM/DL 32.2-35.5 ppxr=425) RED CELL DISTRIBUTION WIDTH (BEAKER) (test 17.5 % 11.7-14.4 jxwk=257) PLATELET COUNT (BEAKER) (test xwwy=288) 246 K/CU MM 150-450 MEAN PLATELET VOLUME (BEAKER) (test viwq=385) 8.9 fL 9.4-12.3 NUCLEATED RED BLOOD CELLS (BEAKER) (test 0 /100 WBC 0-0 wxbc=291) NEUTROPHILS RELATIVE PERCENT (BEAKER) (test 88 % ausl=153) LYMPHOCYTES RELATIVE PERCENT (BEAKER) (test 5 % fvou=695) MONOCYTES RELATIVE PERCENT (BEAKER) (test 6 % eqrl=287) EOSINOPHILS RELATIVE PERCENT (BEAKER) (test 0 % svpv=744) BASOPHILS RELATIVE PERCENT (BEAKER) (test 0 % kpfo=084) NEUTROPHILS ABSOLUTE COUNT (BEAKER) (test 12.85 K/ L 1.56-6.13 htbx=374) LYMPHOCYTES ABSOLUTE COUNT (BEAKER) (test 0.71 K/ L 1.18-3.74 cfll=806) MONOCYTES ABSOLUTE COUNT (BEAKER) (test 0.94 K/ L 0.24-0.36 fqkm=663) EOSINOPHILS ABSOLUTE COUNT (BEAKER) (test 0.00 K/ L 0.04-0.36 ihbo=542) BASOPHILS ABSOLUTE COUNT (BEAKER) (test 0.02 K/ L 0.01-0.08 wxvk=317) IMMATURE GRANULOCYTES-RELATIVE PERCENT (BEAKER) 1 % 0-1 (test tytl=8954) PROTHROMBIN [id number] 06:21:00 Test Item Value Reference Range Comments PROTIME (BEAKER) (test ielw=062) 13.5 seconds 11.7-14.7 INR (BEAKER) (test cwwa=686) 1.0 <=5.9 RECOMMENDED COUMADIN/WARFARIN INR THERAPY RANGESSTANDARD DOSE: 2.0 - 3.0 Includes: PROPHYLAXIS forvenous thrombosis, systemic embolization; TREATMENT for venous thrombosis and/or pulmonary embolus.HIGH RISK: Target INR is 2.5-3.5 for patients with mechanical heart valves.
--- OUTSIDE RECORDS SUMMARY | 2018-11-27 16:34 | XMS REPORT | Clinical Summary ---
:1930 Author Organization [facility] Address [address] [place] [address] Care Team Providers Name Role Phone Asked, [...] Comments Blood Pressure 132/60 03/02/2018 12:02 PM JBOSS ARCHITECT Pulse 78 03/02/2018 12:02 PM [facility]BOSS ARCHITECT Temperature 36.1 C (97 F) 03/02/2018 12:02 PM [facility]BOSS ARCHITECT Respiratory Rate 14 03/02/2018 12:02 PM [facility]BOSS ARCHITECT Oxygen Saturation 93% 03/02/2018 12:02 PM JBOSS ARCHITECT Inhaled Oxygen Concentration - - Weight 51.1 kg (112 lb 9.6 oz) 03/02/2018 5:13 AM [facility]BOSS ARCHITECT Height - - Body Mass Index 22.74 04/12/2017 12:01 PM [facility]BOSS ARCHITECT Plan of Treatment Health Maintenance Due Date Last Done Comments SHINGLES VACCINES (#1) 1981 65+ PNEUMOCOCCAL VACCINE (1 of 2 - PCV13) 1996 INFLUENZA VACCINE 10/12/2018 Implants Implanted Type Area Kids Activities Coach Device Identifier Shelf Expiration Model / Date Serial / Lot Reveal Linq-02/02/2016 Implanted: Qty: 1 on 02/02/2016 Description:Heart monitor implant ( s/p Loop LINQ) IMPLANTED By DR IVAN L[facility] at [facility]. Procedures Procedure Name Priority Date/Time Associated Comments Diagnosis ESTIMATED GFR Routine 03/02/2018 3:55 Results for this AM [facility]OSS ARCHITECT procedure are in the results section. THYROID STIMULATING Routine 03/02/2018 3:55 Results for this HORMONE AM [facility]OSS ARCHITECT procedure are in the results section. HC COMPLETE BLD COUNT Routine 03/02/2018 3:55 Results for this W/AUTO DIFF AM [facility]OSS ARCHITECT procedure are in the results section. BASIC METABOLIC PANEL Routine 03/02/2018 3:55 Results for this AM [facility]BOSS ARCHITECT procedure are in the results section. US DUPLEX VENOUS LOWER Routine 03/01/2018 11:47 Results for this EXTREMITY BILATERAL AM [facility]OSS ARCHITECT procedure are in the results section. ECHOCARDIOGRAM 2D Routine 03/01/2018 7:35 Results for this COMPLETE W MMODE AM [facility]BOSS ARCHITECT procedure are in SPECTRAL COLOR DOPPLER the results (94078) section. CBC WITH PLATELET AND Routine 03/01/2018 4:39 Results for this DIFFERENTIAL AM [facility]OSS ARCHITECT procedure are in the results section. ESTIMATED GFR Routine 03/01/2018 4:00 Results for this AM [facility]BOSS ARCHITECT procedure are in the results section. PHOSPHORUS LEVEL Routine 03/01/2018 4:00 Results for this AM [facility]OSS ARCHITECT procedure are in the results section. MAGNESIUM LEVEL Routine 03/01/2018 4:00 Results for this AM [facility]OSS ARCHITECT procedure are in the results section. IONIZED CALCIUM Routine 03/01/2018 4:00 Results for this AM [facility]OSS ARCHITECT procedure are in the results section. BASIC METABOLIC PANEL Routine 03/01/2018 4:00 Results for this AM [facility]BOSS ARCHITECT procedure are in the results section. CT ANGIOGRAM PE CHEST Routine 02/28/2018 10:59 Results for this PM [facility]BOSS ARCHITECT procedure are in the results section. CT ABDOMEN PELVIS WO Routine 02/28/2018 10:59 Results for this CONTRAST PM [facility]BOSS ARCHITECT procedure are in the results section. IONIZED CALCIUM Routine 02/28/2018 7:46 Results for this PM [facility]OSS ARCHITECT procedure are in the results section. ESTIMATED GFR Routine 02/28/2018 7:46 Results for this PM [facility]OSS ARCHITECT procedure are in the results section. PHOSPHORUS LEVEL Routine 02/28/2018 7:46 Results for this PM [facility]OSS ARCHITECT procedure are in the results section. COMPREHENSIVE METABOLIC Routine 02/28/2018 7:46 Results for this PANEL PM [facility]BOSS ARCHITECT procedure are in the results section. MAGNESIUM LEVEL Routine 02/28/2018 7:46 Results for this PM [facility]OSS ARCHITECT procedure are in the results section. HC COMPLETE BLD COUNT Routine 02/28/2018 7:05 Results for this W/AUTO DIFF PM [facility]OSS ARCHITECT procedure are in the results section. PROTHROMBIN TIME WITH Routine 02/28/2018 7:05 Results for this INR PM [facility]OSS ARCHITECT procedure are in the results section. XR CHEST 1 VW PORTABLE STAT 02/28/2018 6:44 Results for this PM [facility]OSS ARCHITECT procedure are in the results section. TYPE AND SCREEN STAT 02/28/2018 6:20 Results for this PM [facility]OSS ARCHITECT procedure are in the results section. ECG 12-LEAD STAT 02/28/2018 5:57 Results for this PM [facility]OSS ARCHITECT procedure are in the results section. after 11/26/2017 Results Estimated GFR (03/02/2018 3:55 AM JBOSS ARCHITECT)Only the most recent of3 resultswithin the time period is included. Estimated GFR 58 (A) mL/min/1.73 [facility] Comment: m2 HOSPITAL CatergoryUnitsInterpretation G1 >=90 Normal or high G2 60-89Mildly decreased G8n17-83Nmeeou to moderately decreased R9w61-19Eimimouayf to severely decreased G4 15-29Severely decreased G5 <15Kidney failure The eGFR was calculated using the Chronic Kidney Disease Epidemiology Collaboration (CKD-EPI) equation. Interpretation is based on recommendations of the National Kidney Foundation-Kidney Disease Outcomes Quality Initiative (NKF-KDOQI) published in 2014. Specimen Plasma specimen Performing Organization Address City/State/Zipcode Phone Number [facility] DEPARTMENT OF PATHOLOGY AND [address] [place] [address] GENOMIC MEDICINE [facility] [address] [place] [address] CBC with platelet and differential (03/02/2018 3:55 AM JBOSS ARCHITECT)Only the most recent of3 resultswithin the time period is included. Pathologist [facility] WBC 7.03 4.50 - 11.00 [facility] k/uL [facility] RBC 3.52 (L) 4.20 - 5.50 [facility] m/uL [facility] HGB 11.2 (L) 12.0 - 16.0 [facility] g/dL [facility] HCT 33.5 (L) 37.0 - 47.0 % [facility] MCV 95.2 82.0 - 100.0 [facility] MCH 31.8 27.0 - 34.0 pg [facility] MCHC 33.4 31.0 - 37.0 [facility] g/dL [facility] RDW - SD 49.1 37.0 - 55.0 fL [facility] MPV 8.8 8.8 - 13.2 fL [facility] Platelet count 238 150 - 400 k/uL [facility] Nucleated RBC 0.00 /100 WBC [facility] Neutrophils 64.5 39.0 - 69.0 % [facility] Lymphocytes 28.7 25.0 - 45.0 % [facility] Monocytes 6.0 0.0 - 10.0 % [facility] Eosinophils 0.1 0.0 - 5.0 % [facility] Basophils 0.4 0.0 - 1.0 % [facility] Immature granulocytes 0.3Comment: 0.0 - 1.0 % [facility] "Immature HOSPITAL granulocytes" (promyelocytes , myelocytes, metamyelocytes ) Specimen Blood Performing Organization Address [facility] Phone Number [facility] DEPARTMENT OF PATHOLOGY AND [address] [place] [address] Thyroid stimulating hormone (03/02/2018 3:55 AM JBOSS ARCHITECT) Pathologist [facility] TSH 1.42 0.27 - 4.20 uIU/mL [facility] Specimen Plasma specimen Performing Organization Address [facility] Phone Number [facility] DEPARTMENT OF PATHOLOGY AND [address] [place] [address] Basic metabolic panel (03/02/2018 3:55 AM JBOSS ARCHITECT)Only the most recent of2 resultswithin the time period is included. Sodium 135 135 - 148 mEq/L [facility] Potassium 3.9 3.5 - 5.0 mEq/L [facility] Chloride 94 (L) 98 - 112 mEq/L [facility] CO2 28 24 - 31 mEq/L [facility] Anion gap 13@ANIO 7 - 15 mEq/L [facility] BUN 12 8 - 23 mg/dL [facility] Creatinine 0.89 0.50 - 0.90 mg/dL [facility] Glucose 112 (H) 65 - 99 mg/dL [facility] Calcium 8.5 (L) 8.8 - 10.2 mg/dL [facility] Specimen Plasma specimen Performing Organization Address [facility] Phone Number [facility] DEPARTMENT OF PATHOLOGY AND [address] [place] [address] Us duplex venous lower extremity (03/01/2018 11:47 AM JBOSS ARCHITECT) Specimen Narrative Performed At [facility] Vascular Ultrasound Laboratory Lower Extremity Venous Report [address] [place] [address] Pat.Name:ELVA FLOR Gabi.ID:[id number] .Date: 03/01/2018Refer.MD:TOBIAS BLANCO MD Exam Time: 11:16:00 AM Study Type:LE Venous Height:59inDOBAge: 1930,87Y Sex: FEMALESonogrphr: Kevin Barry, RDMS, RVT Pat. Stat.:Inpatient Room:[address] TapeVol: , [facility] - 4: [id number] Echo Event ID:[id number] Order ID:[id number] Reason for Study:Lower extremity swelling. History of [...] Radiology Results In - 03/01/2018 4:41 PM [facility] Vascular Ultrasound Laboratory Lower Extremity Venous Report [id number] [address] Pat.Name: ELVA FLOR Pat.ID: [id number] .Date: 03/01/2018 Refer.MD: TOBIAS BLANCO MD Exam Time: 11:16:00 AM Study Type:LE Venous Height: 59in Age: 2 1930,87Y Sex: FEMALE Sonogrphr: Kevin Barry, RDMS, RVT Pat. Stat.:Inpatient Room: [address] Tape Vol: ST, [facility] - 4: [id number] Echo Event ID:[id number] Order ID: [id number] Reason for Study:Lower extremity swelling. History of [...] RPVI Performing Organization Address City/State/Zipcode Phone Number [facility] [address] [place] [address] Echocardiogram complete w contrast and 3D if needed (03/01/2018 7:35 AM JBOSS ARCHITECT) Specimen Narrative Performed At [facility] Echocardiography Report [id number]Name:ELVA FLOR Pat.ID:[id number] St.Date: 03/01/2018Refer.MD:TOBIAS BLANCO MD Exam Time: 7:07:00 AMStudy Type:Routine Echo Height:59.02in Weight:120lb BSA: 1.49 m2 DOBAge:1930,87Y Sex: FEMALEBP:140/65 HR:78 bpmSonogrphr: Michell Couch RDCS Pat. Stat.:Inpatient Room:[facility] Study Status:Final Echo Event ID:[id number] Order ID:[id number] Reason for Study:Shortness of breath Procedures:2D Echo, [...] RAPof 5 mmHg. MEASUREMENTS: 2D Parasternal [place] LA Ds3.2 cmLVPWd1 cm LVOT 1.8 cmAo An1.8 cm LVIDd3.9 cmIndex2.6 cm/m Ao Rtd 3 cm Index2 cm/m LVIDs2.1 cmLV Cptl078 g(87-129) LV%fs 45.5 % LVM Index 86.6 g/m2 IVSd 1.1 cmRWT0.5 LA Sng Plane LA Area 15.4 cm2(8.8-23.4) LA Vol39.3 ml Index26.4 ml/m LA LngAx 5.2 cm RA Sng Plane RA Area 12.6 cm2(8.3-19.5) RA Vol27.5 ml Index18.4 ml/m RA LngAx 5.1 cm DOPPLER LVOT Stroke Vol LVOT 1.8 cmLVOT CO5.2 l/min LVOT TVI31.5 cmLVOT CI3.5 l/m/m2 LVOT Tm343 pufuKH23 bpm LVOT SV 80.1 ml Signed 03/01/2018 02:33 PM Lucho Abdullahi M.D. Procedure Note Interface, Radiology Results In - 03/01/2018 2:34 PM [facility] ARCHITECT Echocardiography Report [address] [place] [address] Pat.Name: ELVA FLOR Pat.ID: [id number] .Date: 03/01/2018 Refer.MD: TOBIAS BLANCO MD Exam Time: 7:07:00 AM Study Type:Routine Echo Height: 59.02in Weight: 120lb BSA: 1.49 m2 Age: 2 1930,87Y Sex: FEMALE BP: 140/65 HR: 78 bpm Sonogrphr: Michell Couch RDCS Pat. Stat.:Inpatient Room: [facility] Study Status:Final Echo Event ID:[id number] Order ID: [id number] Reason for Study:Shortness of breath Procedures:2D Echo, [...] of 5 mmHg. MEASUREMENTS: 2D Parasternal [place] LA Ds 3.2 cm LVPWd 1 cm [...] PM Lucho Abdullahi M.D. Performing Organization Address City/[facility] Centercode Phone Number [facility] [address] [place] [address] Phosphorus level (03/01/2018 4:00 AM JBOSS ARCHITECT)Only the most recent of2 resultswithin the time period is included. Phosphorus 4.0 2.4 - 4.5 mg/dL [facility] Specimen Plasma specimen Performing Organization Address [facility] Phone Number [facility] DEPARTMENT OF PATHOLOGY AND [address] [place] [phone] [place] [address] Magnesium level (03/01/2018 4:00 AM JBOSS ARCHITECT)Only the most recent of2 resultswithin the time period is included. Magnesium 1.9 1.6 - 2.4 mg/dL [facility] Specimen Plasma specimen Performing Organization Address [facility] Phone Number [facility] DEPARTMENT OF PATHOLOGY AND [address] [place] [phone] [place] [address] Ionized calcium (03/01/2018 4:00 AM JBOSS ARCHITECT)Only the most recent of2 resultswithin the time period is included. pH 7.53 [facility] Ionized calcium 1.04 (L) 1.11 - 1.32 [facility] mmol/L [facility] Specimen Plasma specimen Performing Organization Address [facility] Phone Number [facility] DEPARTMENT OF PATHOLOGY AND [address] [place] [phone] [place] [address] Angiogram Pe Chest (02/28/2018 10:59 PM JBOSS ARCHITECT) Specimen Narrative Performed At EXAMINATION: [facility] CT [...] identified. IMPRESSION: No evidence of pulmonary embolus. [facility]-[id number] Procedure Note Interface, Radiology Results Incoming - 02/28/2018 11:31 PM [facility] ARCHITECT EXAMINATION: CT ANGIOGRAM PE CHEST CLINICAL HISTORY: [...] identified. IMPRESSION: No evidence of pulmonary embolus. [facility]-[id number] Performing Organization Address City/State/Zipcode Phone Number [facility] [address] [place] [address] CT Abdomen Pelvis Wo Contrast (02/28/2018 10:59 PM JBOSS ARCHITECT) Specimen Narrative Performed At Examination:[facility]BDOMEN [facility]EL[facility] Clinical History: Shortness of breath [...] abnormality identified in the abdomen or pelvis. [facility]-[id number] Procedure Note Interface, Radiology Results Incoming - 02/28/2018 11:35 PM [facility] ARCHITECT Examination: CT ABDOMEN PELVIS WO CONTRAST Clinical [...] abnormality identified in the abdomen or pelvis. [facility]-[id number] Performing Organization Address City/State/Zipcode Phone Number [facility] [address] [place] [address] Comprehensive metabolic panel (02/28/2018 7:46 PM JBOSS ARCHITECT) Sodium 137 135 - 148 [facility] mEq/L HOSPITAL Potassium 3.9 3.5 - 5.0 [facility] mEq/L [facility] Chloride 99 98 - 112 mEq/L [facility] CO2 26 24 - 31 mEq/L [facility] Anion gap 12@ANIO 7 - 15 mEq/L [facility] BUN 15 8 - 23 mg/dL [facility] Creatinine 0.84 0.50 - 0.90 [facility] mg/dL HOSPITAL Glucose 85 65 - 99 mg/dL [facility] Calcium 8.9 8.8 - 10.2 [facility] mg/dL HOSPITAL Protein 6.2 (L) 6.3 - 8.3 g/dL [facility] Comment: HOSPITAL [place] 4.6-7.0 g/dL 1 week 4.4-7.6 g/dL 7 months-1year5.1-7.3 g/dL 1-2 years5.6-7.5 g/dL >3 years6.0-8.0 g/dL 18-150 6.3-8.3 g/dL Albumin 3.1 (L) 3.5 - 5.0 g/dL [facility] A/G ratio 1.0 0.7 - 3.8 [facility] Alkaline phosphatase 62 35 - 104 U/L [facility] AST 27 10 - 35 U/L [facility] ALT 26 5 - 50 U/L [facility] Total bilirubin 0.8 0.0 - 1.2 [facility] mg/dL [facility] Specimen Plasma specimen Performing Organization Address City/[facility] Centercode Phone Number [facility] DEPARTMENT OF PATHOLOGY AND [address] [place] [phone] [address] Prothrombin time with INR (02/28/2018 7:05 PM JBOSS ARCHITECT) Prothrombin time 14.0 11.5 - 14.5 [facility] INR 1.1 [place] Comment: [facility] International Normalized Ratio (INR) is a therapeutic HOSPITAL monitoring tool for patients who are stable on oral anticoagulant therapy. An INR of 2.0-3.0 is suggested for deep vein thrombosis/pulmonary embolism. Specimen Blood Performing Organization Address City/[facility] Centercode Phone Number [facility] DEPARTMENT OF PATHOLOGY AND [address] [place] [phone] [address] XR Chest 1 Vw Portable (02/28/2018 6:44 PM JBOSS ARCHITECT) Specimen Narrative Performed At EXAMINATION:XR CHEST 1 VW PORTABLE [facility] CLINICAL HISTORY:Shortness of breath COMPARISON:04/12/2017 IMPRESSION: Chronic appearing interstitial lung markings. No consolidations, effusions, or pneumothorax. Calcified granuloma is seen of the right lung base. Cardiomediastinal silhouette is within normal limits. A device projects over the left heart. No acute osseous abnormalities. [facility]-[id number] Procedure Note Interface, Radiology Results Incoming - 02/28/2018 6:58 PM [facility] ARCHITECT EXAMINATION: XR CHEST 1 VW PORTABLE CLINICAL HISTORY: Shortness of breath COMPARISON: 04/12/2017 IMPRESSION: Chronic appearing interstitial lung markings. No consolidations, effusions, or pneumothorax. Calcified granuloma is seen of the right lung base. Cardiomediastinal silhouette is within normal limits. A device projects over the left heart. No acute osseous abnormalities. [facility]-[id number] Performing Organization Address City/State/Zipcode Phone Number [facility] [address] [place] [address] Type and screen (02/28/2018 6:20 PM JBOSS ARCHITECT) ABO grouping A [facility] Rh type POS [facility] Antibody screen (gel) NEG [facility] Specimen Blood Performing Organization Address City/State/Zipcode Phone Number [facility] DEPARTMENT OF PATHOLOGY AND [address] [place] [address] GENOMIC MEDICINE [facility] [address] [place] [address] ECG 12 lead (02/28/2018 5:57 PM JBOSS ARCHITECT) Ventricular rate 60 [facility] Atrial rate 60 [facility] AK interval 128 [facility] QRSD interval 70 [...] At Performing Organization Address City/State/Zipcode Phone Number [facility] MUSE [address] [place] [address] after 11/26/2017 Advance Directives For more information, please contact: [phone] Type Date 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
[2018-11-27 17:54] LABS: NT PRO-BNP 438 pg/mL (<450); Troponin (Emerg Dept Use Only) < 0.02 ng/mL (0.0-0.045)
--- NOTE | 2018-11-27 18:51 | RAD REPORT ---
EXAM DESCRIPTION: RAD - Chest Pa And Lat (2 Views) - 11/27/2018 6:29 pm CLINICAL HISTORY: COUGH Chest pain. 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 The heart is mildly enlarged in size. No displaced fractures. IMPRESSION: Mild COPD.
[2018-11-27 19:02] LABS: Urine Blood 1+ (NEG); Urine Glucose NEGATIVE (NEG); Urine Protein NEGATIVE (NEG)
[2018-11-27 19:18] LABS: Urine Bacteria <20 /HPF (<20)
[2018-11-27 19:19] LABS: Urine Culture Reflex Order NOT NEEDED; Urine Mucus 1+ /HPF (NONE SEEN)
--- NOTE | 2018-11-27 19:25 | EDPHYS ---
Physician Documentation [facility] Name: Elva Jenkins Age: 88 yrs Sex: Female : 1930 Arrival Date: 11/27/2018 Time: 16:45 Bed 25 Private MD: ED Physician Yayo Garcia HPI: 11/27 19:19 This 88 yrs old Female presents to ER via EMS with complaints of Flu Symptoms gs - flu positive (11-27-18). 19:19 Onset: The symptoms/episode began/occurred today. Associated signs and symptoms: gs Pertinent positives: cough. Severity of symptoms: At their worst the symptoms were moderate in the emergency department the symptoms are unchanged. The patient has experienced similar episodes in the past, a few times. Historical: - Allergies: 16:51 Asacol; sg 16:51 Humira; sg 16:51 Methotrexate; sg 16:51 Orencia; sg 16:51 Phenergan; sg 16:51 Sulfazine; sg - PMHx: 16:51 Arthritis; COPD; Depression; GERD; Hyperlipidemia; Hypothyroidism; sg - Immunization history:: Adult Immunizations up to date. - Social history:: Smoking status: Patient/guardian denies using tobacco. - Ebola Screening: : Patient negative for fever greater than or equal to 101.5 degrees Fahrenheit, and additional compatible Ebola Virus Disease symptoms Patient denies exposure to infectious person Patient denies travel to an Ebola-affected area in the 21 days before illness onset No symptoms or risks identified at this time. ROS: 19:19 All other systems are negative. gs Exam: 19:19 Head/Face: Normocephalic, atraumatic. Eyes: Pupils equal round and reactive to light, gs extra-ocular motions intact. Lids and lashes normal. Conjunctiva and sclera are non-icteric and not injected. Cornea within normal limits. Periorbital areas with no swelling, redness, or edema. ENT: Nares patent. No nasal discharge, no septal abnormalities noted. Tympanic membranes are normal and external auditory canals are clear. Oropharynx with no redness, swelling, or masses, exudates, or evidence of obstruction, uvula midline. Mucous membranes moist. Neck: Trachea midline, no thyromegaly or masses palpated, and no cervical lymphadenopathy. Supple, full range of motion without nuchal rigidity, or vertebral point tenderness. No Meningismus. Chest/axilla: Normal chest wall appearance and motion. Nontender with no deformity. No lesions are appreciated. Cardiovascular: Regular rate and rhythm with a normal S1 and S2. No gallops, murmurs, or rubs. Normal PMI, no JVD. No pulse deficits. Respiratory: Lungs have equal breath sounds bilaterally, clear to auscultation and percussion. No rales, rhonchi or wheezes noted. No increased work of breathing, no retractions or nasal flaring. Abdomen/GI: Soft, non-tender, with normal bowel sounds. No distension or tympany. No guarding or rebound. No evidence of tenderness throughout. Back: No spinal tenderness. No costovertebral tenderness. Full range of motion. Skin: Warm, dry with normal turgor. Normal color with no rashes, no lesions, and no evidence of cellulitis. MS/ Extremity: Pulses equal, no cyanosis. Neurovascular intact. Full, normal range of motion. Neuro: Awake and alert, GCS 15, oriented to person, place, time, and situation. Cranial nerves II-XII grossly intact. Motor strength 5/5 in all extremities. Sensory grossly intact. Cerebellar exam normal. Normal gait. 19:19 Constitutional: The patient appears alert, awake. Vital Signs: 16:49 BP 189 / 92; Pulse 82; Resp 16; Temp 98.8; Pulse Ox 98% on R/A; Pain 10/10; sg 16:52 Weight 58.97 kg; Height 4 ft. 11 in. (149.86 cm); sg 18:10 BP 172 / 88; Pulse 72; Resp 16; Pulse Ox 98% on R/A; sg 18:46 BP 164 / 72; Pulse 77; Resp 17; Temp 99.4; Pulse Ox 98% on R/A; Pain 8/10; sg 19:34 BP 191 / 111; Pulse 82; Resp 19; Temp 98.8; Pulse Ox 98% ; Pain 8/10; rr5 20:02 BP 180 / 106; Pulse 87; Resp 17; Pulse Ox 97% ; rr5 20:20 BP 165 / 104; Pulse 80; Resp 16; Temp 98.7; Pulse Ox 99% ; rr5 16:52 Body Mass Index 26.26 (58.97 kg, 149.86 cm) sg MDM: 16:59 Patient medically screened. gs 19:19 Differential diagnosis: viral Infection, URI, pneumonia UTI. Data reviewed: vital gs signs, nurses notes, old medical records, lab test result(s), EKG, radiologic studies. Response to treatment: the patient's symptoms have markedly improved after treatment. ED course: pt is stable dr Pollock wants pt admitted regardless. 11/27 17:07 Order name: NT PRO-BNP; Complete Time: 18:32 11/27 17:07 Order name: Troponin (emerg Dept Use Only); Complete Time: 18:32 11/27 17:06 Order name: XRAY Chest Pa And Lat (2 Views); Complete Time: 19:39 11/27 17:47 Order name: Urine Microscopic Only; Complete Time: 19:23 11/27 18:52 Order name: Urine Dipstick--Ancillary (enter results); Complete Time: 19:23 ms 11/27 17:07 Order name: EKG; Complete Time: 17:08 11/27 17:07 Order name: Cardiac monitoring; Complete Time: 18:04 11/27 17:07 Order name: EKG - Nurse/Tech; Complete Time: 18:47 11/27 17:07 Order name: IV Saline Lock; Complete Time: 17:20 11/27 17:07 Order name: Labs collected and sent; Complete Time: 17:20 11/27 17:07 Order name: O2 Per Protocol; Complete Time: 17:20 11/27 17:07 Order name: O2 Sat Monitoring; Complete Time: 17:20 11/27 19:29 Order name: Consistent Carb (ADA) 1800 Jordi EDMS 11/27 17:47 Order name: Urine Dipstick-Ancillary (obtain specimen); Complete Time: 18:04 Administered Medications: 20:03 Drug: Enalaprilat 1.25 mg Route: IV; Rate: calculated rate; Site: left antecubital; rr5 20:20 Follow up: Response: Blood pressure is lowered; IV Status: Completed infusion rr5 Disposition: 11/27/18 19:23 Hospitalization ordered by Bharti Pollock for Observation. Preliminary diagnosis is Influenza due to certain identified influenza viruses. - Bed requested for Telemetry/MedSurg (observation). - Status is Observation. bb - Condition is Stable. - Problem is new. - Symptoms have improved. UTI on Admission? No Signatures: Dispatcher [employer] EDMS Ainsley Phillips, RN Kevin Ortiz RN Tommy Schmitt MD MD cha Ballard, Brenda RN RN Yayo Mayen MD MD gs Roque, Raymond, RN RN rr5 Corrections: (The following items were deleted from the chart) 19:39 19:23 Hospitalization Ordered by A Maris PALOMARES for Observation. Preliminary diagnosis is mw Influenza due to certain identified influenza viruses. Bed requested for Telemetry/MedSurg (observation). Status is Observation. Condition is Stable. Problem is new. Symptoms have improved. UTI on Admission? No. 20:28 19:39 11/27/2018 19:23 Hospitalization Ordered by A Maris PALOMARES for Observation. bb Preliminary diagnosis is Influenza due to certain identified influenza viruses. Bed requested for Telemetry/MedSurg (observation). Status is Observation. Condition is Stable. Problem is new. Symptoms have improved. UTI on Admission? No.
--- NOTE | 2018-11-27 19:25 | ER ---
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 Transition of care: patient was not received from another setting of care. Onset of symptoms was November 27, 2018. Risk Assessment: Do you want to hurt yourself or someone else? Patient reports no desire to harm self or others. Initial Sepsis Screen: Does the patient meet any 2 criteria? No. Patient's initial sepsis screen is negative. Does the patient have a suspected source of infection? No. Patient's initial sepsis screen is negative. Care prior to arrival: None. 16:45 Method Of Arrival: EMS: [facility] 16:45 Acuity: TAVON 4 sg Triage Assessment: 16:45 General: Appears in no apparent distress. well groomed, well developed, well nourished, sg Behavior is calm, cooperative, appropriate for age. Pain: Complains of pain in body aches Quality of pain is described as aching. EENT: Oral mucosa is moist. Throat is pink. Neuro: Level of Consciousness is awake, alert, obeys commands, Oriented to person, place, time, Director [employer]ulatory [employer] are equal bilaterally Moves all extremities. Full function Gait is steady, Speech is normal, Facial symmetry appears normal. Cardiovascular: Patient's skin is warm and dry. Chest pain is denied. Respiratory: Airway is patent Respiratory effort is even, unlabored, Respiratory pattern is regular, symmetrical. GI: Reports diarrhea, nausea. : No signs and/or symptoms were reported regarding the genitourinary system. Derm: Skin is pink, warm \T\ dry. Musculoskeletal: Circulation, motion, and sensation intact. Range of motion: intact in all extremities. Historical: - Allergies: 16:51 Asacol; sg 16:51 Humira; sg 16:51 Methotrexate; sg 16:51 Orencia; sg 16:51 Phenergan; sg 16:51 Sulfazine; sg - PMHx: 16:51 Arthritis; COPD; Depression; GERD; Hyperlipidemia; Hypothyroidism; sg - Immunization history:: Adult Immunizations up to date. - Social history:: Smoking status: Patient/guardian denies using tobacco. - Ebola Screening: : Patient negative for fever greater than or equal to 101.5 degrees Fahrenheit, and additional compatible Ebola Virus Disease symptoms Patient denies exposure to infectious person Patient denies travel to an Ebola-affected area in the 21 days before illness onset No symptoms or risks identified at this time. Screenin:12 Abuse screen: Denies threats or abuse. Denies injuries from another. Nutritional sg screening: No deficits noted. Tuberculosis screening: No symptoms or risk factors identified. Never had TB. Fall Risk None identified. Assessment: 17:48 Reassessment: Patient appears in no apparent distress at this time. Patient and/or sg family updated on plan of care and expected duration. Pain level reassessed. Patient is alert, oriented x 3, equal unlabored respirations, skin warm/dry/pink. pt laying supine in bed, resp even and unlabored, snoring noted with eyes closed, VSS at this time, pt awaiting lab results at this time, will continue to monitor. 18:46 Reassessment: Patient appears in no apparent distress at this time. Patient and/or sg family updated on plan of care and expected duration. Pain level reassessed. Patient is alert, oriented x 3, equal unlabored respirations, skin warm/dry/pink. Patient states symptoms have not improved. 19:35 Reassessment: for admission, ED provider aware for BP 191/111mmHg without order made. rr5 General: Appears in no apparent distress. uncomfortable, Behavior is calm, cooperative, appropriate for age. Pain: Complains of pain in head Pain does not radiate. Pain currently is 8 out of 10 on a pain scale. Quality of pain is described as aching, Pain began gradually, Is intermittent. Neuro: Level of Consciousness is awake, alert, obeys commands, Oriented to person, place, time, situation. Cardiovascular: Capillary refill < 3 seconds Patient's skin is warm and dry. Respiratory: Reports positive for flu symptoms 9-16-19 Airway is patent Respiratory effort is even, unlabored, Respiratory pattern is regular, symmetrical. GI: No signs and/or symptoms were reported involving the gastrointestinal system. : No signs and/or symptoms were reported regarding the genitourinary system. EENT: No signs and/or symptoms were reported regarding the EENT system. Derm: Skin is fragile, is thin, Skin temperature is warm. Musculoskeletal: Circulation, motion, and sensation intact. Capillary refill < 3 seconds. 19:53 Reassessment: report called to Gail DUNAWAY for room 411. bb Vital Signs: 16:49 BP 189 / 92; Pulse 82; Resp 16; Temp 98.8; Pulse Ox 98% on R/A; Pain 10/10; sg 16:52 Weight 58.97 kg; Height 4 ft. 11 in. (149.86 cm); sg 18:10 BP 172 / 88; Pulse 72; Resp 16; Pulse Ox 98% on R/A; sg 18:46 BP 164 / 72; Pulse 77; Resp 17; Temp 99.4; Pulse Ox 98% on R/A; Pain 8/10; sg 19:34 BP 191 / 111; Pulse 82; Resp 19; Temp 98.8; Pulse Ox 98% ; Pain 8/10; rr5 20:02 BP 180 / 106; Pulse 87; Resp 17; Pulse Ox 97% ; rr5 20:20 BP 165 / 104; Pulse 80; Resp 16; Temp 98.7; Pulse Ox 99% ; rr5 16:52 Body Mass Index 26.26 (58.97 kg, 149.86 cm) ED Course: 16:45 Patient arrived in ED. sg 16:47 Yayo Garcia MD is Attending Physician. 16:49 Triage completed. sg 16:51 Arm band placed on. sg 17:08 Kevin Johnson, GUME is Primary Nurse. sg 17:17 Initial lab(s) drawn, by me, sent to lab. Inserted saline lock: 22 gauge in left ca1 antecubital area, using aseptic technique. Blood collected. 17:50 Patient has correct armband on for positive identification. Bed in low position. Call sg light in reach. Side rails up X2. Pulse ox on. NIBP on. Door closed. Noise minimized. Warm blanket given. Verbal reassurance given. Head of bed elevated. 17:50 No provider procedures requiring assistance completed. 18:35 XRAY Chest Pa And Lat (2 Views) In Process Unspecified. EDMS 18:47 Urine Microscopic Only Sent. lt1 19:20 Bharti Pollock MD is Hospitalizing Provider. 19:34 Robin Arndt, RN is Primary Nurse. rr5 19:54 Patient admitted, IV remains in place. bb Administered Medications: 20:03 Drug: Enalaprilat 1.25 mg Route: IV; Rate: calculated rate; Site: left antecubital; rr5 20:20 Follow up: Response: Blood pressure is lowered; IV Status: Completed infusion rr5 Outcome: 19:23 Decision to Hospitalize by Provider. 19:54 Admitted to Tele room 411, with chart, Report called to Gail DUNAWAY bb 19:54 Condition: stable 19:54 Instructed on the need for admit. 20:28 Patient left the ED. bb Signatures: Dispatcher [employer] EDKevin Andino RN RN Milana Briceño RN RN bb Yayo Garcia MD MD Robin Arndt, RN RN rr5 Livia Wall RN RN [facility] Asha Bruno lt1
[2018-11-27] MEDS ORDERED: ENALAPRILAT 1.25 MG/ML VIAL IV ONE ×2 (19:58→20:01)
[2018-11-27] MEDS ORDERED: NA CHLORIDE 0.9% 1,000 ML IV SCH (20:00)
[2018-11-27 20:33] VITALS: BMI 23.7
[2018-11-27 21:03] VITALS: O2SAT 98
[2018-11-27] MEDS: ACETAMINOPHEN 500 MG TAB PO PRN (21:16)
[2018-11-27] MEDS: OSELTAMIVIR 75 MG CAP PO SCH (21:18)
[2018-11-27] MEDS ORDERED: ALBUTEROL 2.5 MG/3 ML NEB SOL NEB PRN (21:48)
[2018-11-28] MEDS ORDERED: AMLODIPINE 5 MG TAB PO ONE (06:35)
[2018-11-28] MEDS: predniSONE 10 MG TAB PO SCH (10:00)
[2018-11-28] MEDS: ACETAMINOPHEN 500 MG TAB PO PRN (10:00)
[2018-11-28] MEDS: OSELTAMIVIR 75 MG CAP PO SCH ×2 (10:01→21:31)
--- NOTE | 2018-11-28 11:36 | EKG ---
Test Date: 2018-11-27 Test Time: 17:26:13 Hospice Case Manager: JACQUE MEASUREMENT RESULTS: Intervals: Rate: 85 SC: 142 QRSD: 72 QT: 376 QTc: 447 [place]: P: 73 SC: 142 QRS: 17 T: 71 INTERPRETIVE STATEMENTS: Normal sinus rhythm with sinus arrhythmia Normal ECG Compared to ECG 10/30/2018 15:00:47 No significant changes Electronically Signed On 11-28-18 11:33:42 CDT by Kel Ro
[2018-11-28] MEDS: NA CHLORIDE 0.9% 1,000 ML IV SCH ×2 (12:28→21:29)
[2018-11-28] MEDS: ONDANSETRON 4 MG/2 ML VIAL IV PRN (14:09)
--- NOTE | 2018-11-29 00:32 | PN ---
Date of Progress Note: 11/28/2018 Subjective: Patient was seen this morning for followup. Objective: Vital Signs: Reviewed. HEENT: Unremarkable. Lungs: Clear to auscultation. Heart: Sounds normal. Abdomen: Soft. Bowel sounds normal. No guarding, rigidity, tenderness, or distention. Extremities: No leg edema. Impression: 1.Influenza B. 2.Hypertension. 3.Chronic obstructive pulmonary disease. 4.Generalized weakness. Plan: After I saw the patient, I informed her that after she is able to tolerate breakfast this morn ing, our plan is to discharge her to go home for her to continue to take her Tamiflu at home and othe r medications that she normally takes. During the course of day, nurse called and informed me that t he patient did not feel comfortable going home. She continues to have nausea, did not eat anything t john. So, plan is to cancel discharge, keep her in the hospital, encourage her to eat and I will see her tomorrow for followup. ARNOL/MODL Voice ID: [id number] Report ID: [id number]
[2018-11-29] MEDS: ACETAMINOPHEN 500 MG TAB PO PRN (03:48)
--- NOTE | 2018-11-29 04:18 | HP ---
Date of Admission: 11/27/2018 Chief Complaint: Headache, stomach pain, nausea, not feeling good, feeling weak. History Of Present Illness: This is an 88-year-old female patient who came into emergency room with all above complaints and after she was evaluated in the ER, she was diagnosed as having influenza B a nd she was discharged from emergency room with Tamiflu. She took her first dose of Tamiflu early thi s morning after picking it up at the pharmacy and then subsequently she called my office during the of day and informed us that she was not feeling good; in fact, she was feeling worse compared t o earlier when she was in the emergency room, so she was advised to come back to emergency room. Aft er she was evaluated in the ER, decision was made to admit her to the hospital for observation. She denies any shortness of breath. No diarrhea. No vomiting. Medications: List reviewed. Review of Systems: Constitutional: As mentioned above. GI: As mentioned above. GRIZZLYMAN: As mentioned above. All other systems reviewed and negative. Allergies: SHE IS LISTED ALLERGIC TO SULFA CAUSING HEADACHE, RITUXIMAB CAUSING LEG SWELLING, PROM ETHAZINE CAUSING HALLUCINATION AND ARM JERKING, METHOTREXATE CAUSING DYSPNEA, MESALAMINE CAUSING SORE THROAT AND HIVES, ADALIMUMAB CAUSING FACE SWELLING, AND ABATACEPT CAUSING JOINT PAIN. Past Surgical History: Significant for hysterectomy, appendectomy, cholecystectomy, cataract surgery , removal of benign rectal mass on August 02, 2017 in [place]. Family History: Parents of old age at 99 and 95 years. Sister had stroke and hypertension. Social History: Negative for smoking and alcohol use. Past Medical History: Significant for lymphedema, hypertension, hypothyroidism, COPD, chronic steroi d therapy, rheumatoid arthritis, chronic leg edema, hemorrhoid surgery, Clostridium difficile colitis , DVT of leg, pulmonary embolism diagnosed in August 2017. Physical Examination: Vital Signs: Initial vital signs when she came into ER, temperature 98.8, pulse 82, respiratory rate 16, blood pressure 189/92, oxygen saturation 98%. Height 4 feet 11 inches, weight 117 pounds. General: Awake, alert, oriented, not in distress. HEENT: Head atraumatic, normocephalic. Conjunctivae nonerythematous. Sclerae white. Mouth, no thr ush or edema noted. Ears/Nose, no mass, lesion, discharge noted. Neck: Supple. No JVD, lymph nodes, bruit, thyromegaly noted. Lungs: Bilateral good equal air entry. Clear to auscultation. No rhonchi. No rales. Heart: Normal heart sounds, no murmur or gallop. Abdomen: Soft, bowel sounds normal. No guarding, rigidity, tenderness, mass, hepatosplenomegaly, dis tention, or bruit noted. Extremities: No leg edema. No calf tenderness. Skin: No rash, ulcer, cellulitis. Lymphatics: No lymph node enlargement in neck, supraclavicular, infraclavicular region. Neuro: No focal neurological deficit. Chest: Unremarkable. External Genitalia: Deferred. Rectal: Deferred. Laboratory Data: Troponin less than 0.02. Chest x-ray, no acute cardiopulmonary changes. ProBNP 43 0. Urinalysis negative. 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 Sodium 138, potassium 3.4, chloride 104, bicarb 29, BUN 9, creatinine 0.61, glucose 78, lipase 162. Influenza B test positive. Impression: 1.Influenza B. 2.Chronic obstructive pulmonary disease. 3.Hypokalemia. 4.Hypertension. 5.Hypothyroidism. 6.Generalized weakness. 7.Chronic steroid therapy. 8.Rheumatoid arthritis. Plan: Admit the patient to hospital for further evaluation and management of this problem. Patient is appropriate for observation. We will continue her steroid. Continue nebulizer treatment per orde r. Home medications will be given per order. We will continue Tamiflu 75 mg twice a day. IV fluid will be given. I will see her tomorrow for followup and possible discharge to go home tomorrow. We will monitor overnight for any deterioration in her condition. ARNOL/MODL Voice ID: [id number]
[2018-11-29] MEDS: NA CHLORIDE 0.9% 1,000 ML IV SCH (08:00)
[2018-11-29] MEDS ORDERED: SODIUM CHLORIDE 0.9% 10ML INJ IV PRN (08:35)
[2018-11-29] MEDS ORDERED: PANTOPRAZOLE 40 MG INJ IVP ONE (08:35)
[2018-11-29] MEDS: OSELTAMIVIR 75 MG CAP PO SCH (09:00)
[2018-11-29] MEDS: predniSONE 10 MG TAB PO SCH (09:18)
[2018-11-29] MEDS: ONDANSETRON 4 MG/2 ML VIAL IV PRN (09:29)
[2018-11-29 12:35] VITALS: BP 160/75; TEMP 98.2
--- NOTE | 2018-11-30 07:43 | DS ---
Date of Discharge: 11/29/2018 History Of Present Illness: Patient was seen this morning for followup. No new complaints or proble ms reported by her. Yesterday, she had only 1 meal, which was the evening time. Otherwise, she did not eat all day and she did not eat much at all. This morning when I saw her, she just got her break fast and I encouraged her to eat her meals. No vomiting. No diarrhea. No chest pain. No shortness of breath. Has some nausea, but no other complaints. Physical Examination: Vital Signs: Reviewed. HEENT: Unremarkable. Lungs: Clear to auscultation. Heart: Sounds normal. Abdomen: Soft. Bowel sounds normal. No guarding, rigidity, tenderness, distention. Extremities: No leg edema. Hospital Course: An 88-year-old female patient who came into the emergency room, got diagnosed as matute ving influenza B, was discharged to go home and came back to emergency room as she was feeling bad. Please see dictated H and P for more information. After patient was evaluated in the ER, she was adm itted to the hospital. She was given IV fluid. Tamiflu was continued and yesterday she was medicall y stable for discharge, but she did not feel comfortable going home as she continued to have nausea a nd did not eat anything at all. So, we cancel her discharge from yesterday and she did not eat much yesterday except few bites at 1 meal. Today, I encouraged her to eat as much as she can and after I saw her, she did eat her breakfast and lunch and after lunch in the afternoon, nurse notified me that the patient was ready for discharge, so she was discharged to go home in stable condition. She has Tamiflu at home and she will continue that as prescribed. Final Diagnoses: 1.Influenza B. 2.Chronic obstructive pulmonary disease. 3.Hypokalemia. 4.Hypertension. 5.Hypothyroidism. 6.Generalized weakness. 7.Chronic steroid therapy. 8.Rheumatoid arthritis. ARNOL/MODL Voice ID: [id number] Report ID: [id number]
== END 2018-11-29 16:37 | disposition home or self-care (01) ==
LOC: ER 16:31 → ERHOLD 19:40 → 2ND 19:56
PROVIDERS: ADMIT Internal Medicine; ATTEND Internal Medicine
DX: J10.1 Influenza due to other identified influenza virus with other respiratory manifestations (principal); J44.9 Chronic obstructive pulmonary disease, unspecified; E87.6 Hypokalemia; I10 Essential (primary) hypertension; E03.9 Hypothyroidism, unspecified; R53.1 Weakness; M06.9 Rheumatoid arthritis, unspecified; Z79.52 Long term (current) use of systemic steroids
CPT/HCPCS: 36415; 71046; 81003; 81015; 83880; 84484; 93005; 96365; 99285; C9113; G0378; J2405; J7030; J7512

== ENCOUNTER 2018-12-18 15:45 | Emergency (ER) | payer OTHER ==
[2018-12-18] MEDS ORDERED: ONDANSETRON 4 MG/2 ML VIAL ONE (16:30)
[2018-12-18] MEDS ORDERED: NA CHLORIDE 0.9% 500 ML ONE (16:30)
--- NOTE | 2018-12-18 17:15 | EKG ---
Test Date: 2018-12-18 Test Time: 16:02:57 Screen Cutter And Trimmer: JACQUE MEASUREMENT RESULTS: Intervals: Rate: 74 HI: 136 QRSD: 68 QT: 368 QTc: 408 [place]: P: 80 HI: 136 QRS: 44 T: 71 INTERPRETIVE STATEMENTS: Sinus rhythm with premature atrial complexes Right atrial enlargement Borderline ECG Compared to ECG 11/27/2018 17:26:13 Atrial premature complex(es) now present Atrial abnormality now present Sinus arrhythmia no longer present Electronically Signed On 12-18-18 17:15:13 CDT by Neri Ward
[2018-12-18 17:23] LABS: ALT/SGPT 28 U/L (12-78); AST/SGOT 20 U/L (15-37); Albumin 3.4 g/dL (3.4-5.0); Alkaline Phosphatase 51 U/L (45-117); BUN Blood Urea Nitrogen 15 mg/dL (7-18); Bicarbonate 28 mmol/L (21-32); Bilirubin Total 1.6 mg/dL (0.2-1.0); Glucose Level 97 mg/dL (74-106); Lipase 205 U/L (73-393); Potassium 4.1 mmol/L (3.5-5.1); Protein, Total 6.7 g/dL (6.4-8.2); Sodium Level 132 mmol/L (136-145); Troponin (Emerg Dept Use Only) < 0.02 ng/mL (0.0-0.045)
[2018-12-18 17:28] LABS: Absolute Lymphocytes (CBC) 3.9 K/uL (0.7-4.9); Basophils % 0.8 % (0-1.3); Hematocrit 38.5 % (36.0-45.0); Lymphocytes % 44.1 % (15.3-44.8); MPV 7.1 fL (7.6-11.3); RBC Red Blood Cell Count 4.01 M/uL (3.86-4.86)
--- NOTE | 2018-12-18 17:34 | ER ---
Nurse's Notes [facility] Name: Elva Jenkins Age: 88 yrs Sex: Female : 1930 Arrival Date: 12/18/2018 Time: 15:46 Bed 16 Private MD: Diagnosis: Nausea and vomiting Presentation: 12/18 15:53 Presenting complaint: EMS states: ABDOMINAL PAIN WITHOUT N/V x3 DAYS. Transition of bp care: patient was not received from another setting of care. Onset of symptoms is unknown. Risk Assessment: Do you want to hurt yourself or someone else? Patient reports no desire to harm self or others. Initial Sepsis Screen: Does the patient meet any 2 criteria? No. Patient's initial sepsis screen is negative. Does the patient have a suspected source of infection? No. Patient's initial sepsis screen is negative. Care prior to arrival: None. 15:53 Method Of Arrival: EMS: [facility] bp 15:53 Acuity: TAVON 3 bp Triage Assessment: 15:59 General: Appears in no apparent distress. comfortable, Behavior is cooperative, bp appropriate for age, anxious. Pain: Complains of pain in abdomen. EENT: No deficits noted. Neuro: No deficits noted. Cardiovascular: No deficits noted. Respiratory: No deficits noted. GI: Abdomen is non-distended, Bowel sounds present X 4 quads. Patient currently denies vomiting. : No signs and/or symptoms were reported regarding the genitourinary system. Derm: No deficits noted. Musculoskeletal: No deficits noted. Historical: - Allergies: 15:55 Asacol; bp 15:55 Humira; bp 15:55 Methotrexate; bp 15:55 Orencia; bp 15:55 Phenergan; bp 15:55 Sulfazine; bp - PMHx: 15:55 Arthritis; COPD; Depression; GERD; Hyperlipidemia; Hypothyroidism; bp - Immunization history:: Adult Immunizations up to date. - Social history:: Smoking status: Patient/guardian denies using tobacco. - Ebola Screening: : No symptoms or risks identified at this time. Screenin:00 Abuse screen: Denies threats or abuse. Denies injuries from another. Nutritional bp screening: No deficits noted. Tuberculosis screening: No symptoms or risk factors identified. Fall Risk None identified. Assessment: 16:00 General: SEE TRIAGE NOTE. GI: Abd is soft X 4 quads. bp 17:54 Reassessment: PT D/C HOME VIA W/C WITH FAMILY, DX WITH NAUSEA AND VOMITING. bp Vital Signs: 15:55 BP 139 / 64; Pulse 74; Resp 16; Temp 98; Pulse Ox 98% ; bp 16:53 BP 155 / 82; Pulse 80; Resp 16; Pulse Ox 98% ; bp ED Course: 15:46 Patient arrived in ED. tw2 15:53 Ben Pineda, RN is Primary Nurse. bp 15:53 Triage completed. bp 15:55 Arm band placed on. bp 15:56 Timo Reyes PA is PHCP. jr8 15:56 Tommy Reyes MD is Attending Physician. jr8 16:00 Patient has correct armband on for positive identification. Bed in low position. Call bp light in reach. Side rails up X2. 16:09 EKG done, by surface water technician. reviewed by Timo WOODSON. sm3 17:54 No provider procedures requiring assistance completed. IV discontinued, intact, bp bleeding controlled, No redness/swelling at site. Pressure dressing applied. Administered Medications: 16:50 Drug: NS 0.9% 500 ml Route: IV; Rate: bolus; Site: left antecubital; bp 17:55 Follow up: IV Status: Completed infusion; IV Intake: 500ml bp 16:50 Drug: Zofran 4 mg Route: IVP; Site: left antecubital; bp 17:55 Follow up: Response: Nausea is decreased bp Intake: 17:55 IV: 500ml; Total: 500ml. bp Outcome: 17:34 Discharge ordered by . jr8 17:55 Discharged to home via wheelchair, with family. bp 17:55 Condition: stable 17:55 Discharge instructions given to patient, Instructed on discharge instructions, follow up and referral plans. Demonstrated understanding of instructions, follow-up care. 17:56 Patient left the ED. bp Signatures: Timo Reyes PA PA jr8 Ping Evans RN RN tw2 Ben Pineda, RN RN bp Noy Tovar sm3
--- NOTE | 2018-12-18 17:35 | EDPHYS ---
Physician Documentation [facility] Name: Elva Jenkins Age: 88 yrs Sex: Female : 1930 Arrival Date: 12/18/2018 Time: 15:46 Bed 16 Private MD: ED Physician Tommy Reyes HPI: 12/18 16:09 This 88 yrs old Female presents to ER via EMS with complaints of Abd Pain > jr8 51 y/o. 16:09 Onset: The symptoms/episode began/occurred yesterday. Pt reports having never felt the jr8 same in her belly since her hernia sx a few years back but has been more nauseous the last 2 days. Denies any vomiting or abd pain. Historical: - Allergies: 15:55 Asacol; bp 15:55 Humira; bp 15:55 Methotrexate; bp 15:55 Orencia; bp 15:55 Phenergan; bp 15:55 Sulfazine; bp - PMHx: 15:55 Arthritis; COPD; Depression; GERD; Hyperlipidemia; Hypothyroidism; bp - Immunization history:: Adult Immunizations up to date. - Social history:: Smoking status: Patient/guardian denies using tobacco. - Ebola Screening: : No symptoms or risks identified at this time. ROS: 16:09 Constitutional: Negative for fever, chills, and weight loss, Eyes: Negative for injury, jr8 pain, redness, and discharge, ENT: Negative for injury, pain, and discharge, Neck: Negative for injury, pain, and swelling, Cardiovascular: Negative for chest pain, palpitations, and edema, Respiratory: Negative for shortness of breath, cough, wheezing, and pleuritic chest pain, Back: Negative for injury and pain, MS/Extremity: Negative for injury and deformity, Neuro: Negative for headache, weakness, numbness, tingling, and seizure. 16:09 Abdomen/GI: Positive for nausea. Exam: 16:09 Constitutional: This is a well developed, well nourished patient who is awake, alert, jr8 and in no acute distress. Head/Face: Normocephalic, atraumatic. Eyes: Pupils equal round and reactive to light, extra-ocular motions intact. Lids and lashes normal. Conjunctiva and sclera are non-icteric and not injected. Cornea within normal limits. Periorbital areas with no swelling, redness, or edema. ENT: Nares patent. No nasal discharge, no septal abnormalities noted. Tympanic membranes are normal and external auditory canals are clear. Oropharynx with no redness, swelling, or masses, exudates, or evidence of obstruction, uvula midline. Mucous membranes moist. Neck: Trachea midline, no thyromegaly or masses palpated, and no cervical lymphadenopathy. Supple, full range of motion without nuchal rigidity, or vertebral point tenderness. No Meningismus. Chest/axilla: Normal chest wall appearance and motion. Nontender with no deformity. No lesions are appreciated. Cardiovascular: Regular rate and rhythm with a normal S1 and S2. No gallops, murmurs, or rubs. Normal PMI, no JVD. No pulse deficits. Respiratory: Lungs have equal breath sounds bilaterally, clear to auscultation and percussion. No rales, rhonchi or wheezes noted. No increased work of breathing, no retractions or nasal flaring. Abdomen/GI: Soft, non-tender, with normal bowel sounds. No distension or tympany. No guarding or rebound. No evidence of tenderness throughout. MS/ Extremity: Pulses equal, no cyanosis. Neurovascular intact. Full, normal range of motion. Neuro: Awake and alert, GCS 15, oriented to person, place, time, and situation. Cranial nerves II-XII grossly intact. Motor strength 5/5 in all extremities. Sensory grossly intact. Cerebellar exam normal. Normal gait. Vital Signs: 15:55 BP 139 / 64; Pulse 74; Resp 16; Temp 98; Pulse Ox 98% ; bp 16:53 BP 155 / 82; Pulse 80; Resp 16; Pulse Ox 98% ; bp MDM: 15:56 Patient medically screened. [facility] 17:33 Data reviewed: vital signs, nurses notes, lab test result(s), and as a result, I will jr discharge patient. Data interpreted: Pulse oximetry: on room air is 98 %. Interpretation: normal. Counseling: I had a detailed discussion with the patient and/or guardian regarding: the historical points, exam findings, and any diagnostic results supporting the discharge/admit diagnosis, lab results, the need for outpatient follow up, a family practitioner, to return to the emergency department if symptoms worsen or persist or if there are any questions or concerns that arise at home. Response to treatment: the patient's symptoms have markedly improved after treatment, patient is well hydrated. 12/18 16:08 Order name: CBC with Diff jr8 12/18 16:08 Order name: CMP; Complete Time: 17:25 jr8 12/18 16:08 Order name: Lipase; Complete Time: 17:25 jr8 12/18 16:09 Order name: Troponin (emerg Dept Use Only); Complete Time: 17:25 jr8 12/18 16:49 Order name: Urine Dipstick--Ancillary (enter results) iw 12/18 17:30 Order name: Manual Differential EDVA 12/18 16:08 Order name: EKG; Complete Time: 16:08 jr8 12/18 16:08 Order name: EKG - Nurse/Tech; Complete Time: 16:13 jr8 12/18 16:08 Order name: Urine Dipstick-Ancillary (obtain specimen); Complete Time: 16:49 jr8 Administered Medications: 16:50 Drug: NS 0.9% 500 ml Route: IV; Rate: bolus; Site: left antecubital; bp 17:55 Follow up: IV Status: Completed infusion; IV Intake: 500ml bp 16:50 Drug: Zofran 4 mg Route: IVP; Site: left antecubital; bp 17:55 Follow up: Response: Nausea is decreased bp Disposition: 12/19 07:11 Co-signature as Attending Physician, Tommy Reyes MD I agree with the assessment and [place] plan of care. Disposition: 12/18/18 17:34 Discharged to Home. Impression: Nausea and vomiting. - Condition is Stable. - Discharge Instructions: Nausea and Vomiting, Adult. - Medication Reconciliation Form, Thank You Letter, Antibiotic Education, Prescription Opioid Use form. - Follow up: Private Physician; When: 2 - 3 days; Reason: Recheck today's complaints, Continuance of care, Re-evaluation by your physician. - Problem is new. - Symptoms have improved. Signatures: Dispatcher [employer] Tommy Petit MD MD cha Roszak, Josh, PA PA jr8 Ben Pineda RN RN bp Corrections: (The following items were deleted from the chart) 12/18 17:56 17:34 12/18/2018 17:34 Discharged to Home. Impression: Nausea and vomiting. Condition bp is Stable. Forms are Medication Reconciliation Form, Thank You Letter, Antibiotic Education, Prescription Opioid Use. Follow up: Private Physician; When: 2 - 3 days; Reason: Recheck today's complaints, Continuance of care, Re-evaluation by your physician. Problem is new. Symptoms have improved. jr8
[2018-12-18 18:01] VITALS: TEMP 98; O2SAT 98
[2018-12-18 18:02] VITALS: BP 155/82
[2018-12-18 18:04] LABS: Urine Blood 1+ (NEG); Urine Glucose NEGATIVE (NEG); Urine Protein NEGATIVE (NEG)
[2018-12-18 18:28] LABS: Blood Morphology Comment NOTED (NOT SEEN); Poikilocytosis 1+
[2018-12-18 18:29] LABS: Platelet Estimate ADEQ
== END 2018-12-18 17:56 | disposition home or self-care (01) ==
LOC: ER 15:45
DX: R11.2 Nausea with vomiting, unspecified (principal); Z88.2 Allergy status to sulfonamides; Z88.8 Allergy status to other drugs, medicaments and biological substances
CPT/HCPCS: 96361; 93005; 85025; 36415; 81003; 84484; 83690; 80053; 96374; 99283; J7040; J2405

== ENCOUNTER 2019-01-11 15:26 | Inpatient (IN) | payer OTHER ==
[2019-01-11] MEDS ORDERED: ONDANSETRON 4 MG/2 ML VIAL IV ONE (16:20)
[2019-01-11] MEDS ORDERED: NA CHLORIDE 0.9% 500 ML IV ONE (16:20)
[2019-01-11] MEDS ORDERED: ONDANSETRON 4 MG/2 ML VIAL ONE (16:31)
[2019-01-11] MEDS ORDERED: NA CHLORIDE 0.9% 500 ML ONE (16:32)
[2019-01-11] MEDS ORDERED: FAMOTIDINE 20 MG/2 ML VIAL IV ONE (16:32)
[2019-01-11 16:42] LABS: Absolute Lymphocytes (CBC) 2.4 K/uL (0.7-4.9); Basophils % 0.3 % (0-1.3); Hematocrit 38.5 % (36.0-45.0); MPV 7.2 fL (7.6-11.3); RBC Red Blood Cell Count 3.96 M/uL (3.86-4.86)
[2019-01-11 16:53] LABS: BUN Blood Urea Nitrogen 9 mg/dL (7-18); Bicarbonate 29 mmol/L (21-32); Glucose Level 100 mg/dL (74-106); Potassium 3.9 mmol/L (3.5-5.1); Sodium Level 134 mmol/L (136-145)
--- NOTE | 2019-01-11 20:45 | ER ---
Nurse's Notes [facility] Name: Elva Jenkins Age: 88 yrs Sex: Female : 1930 Arrival Date: 01/11/2019 Time: 15:37 Bed 17 Private MD: Diagnosis: Vomiting;Weakness;Cutaneous abscess of groin-labia, left greater than right;Urinary tract infection, site not specified Presentation: 01/11 15:42 Presenting complaint: EMS states: pt has had nausea and vomiting that started last sg night but worsening today, reports unable to take home medications due to vomiting. Transition of care: patient was not received from another setting of care. Onset of symptoms was January 11, 2019. Risk Assessment: Do you want to hurt yourself or someone else? Patient reports no desire to harm self or others. Initial Sepsis Screen: Does the patient meet any 2 criteria? No. Patient's initial sepsis screen is negative. Does the patient have a suspected source of infection? No. Patient's initial sepsis screen is negative. Care prior to arrival: Glucose check: 122. 15:42 Method Of Arrival: EMS: [facility] sg 15:42 Acuity: TAVON 3 sg Historical: - Allergies: 15:45 Asacol; sg 15:45 Humira; sg 15:45 Methotrexate; sg 15:45 Orencia; sg 15:45 Phenergan; sg 15:45 Sulfazine; sg - PMHx: 15:45 Arthritis; COPD; Depression; GERD; Hyperlipidemia; Hypothyroidism; sg - Immunization history:: Adult Immunizations not up to date. - Social history:: Smoking status: Patient/guardian denies using tobacco. - Ebola Screening: : Patient negative for fever greater than or equal to 101.5 degrees Fahrenheit, and additional compatible Ebola Virus Disease symptoms Patient denies exposure to infectious person Patient denies travel to an Ebola-affected area in the 21 days before illness onset No symptoms or risks identified at this time. Screenin:40 Abuse screen: Denies threats or abuse. Denies injuries from another. Nutritional sg screening: No deficits noted. Tuberculosis screening: No symptoms or risk factors identified. Never had TB. Fall Risk None identified. Assessment: 15:40 General: Appears in no apparent distress. well groomed, well developed, well nourished, sg Behavior is calm, cooperative, appropriate for age, quiet. Pain: Denies pain. Neuro: Level of Consciousness is awake, alert, obeys commands, Oriented to person, place, time, Motion Picture Set Worker are equal bilaterally Moves all extremities. Facial symmetry appears normal. Cardiovascular: Patient's skin is warm and dry. Chest pain is denied. Respiratory: Airway is patent Respiratory effort is even, unlabored, Respiratory pattern is regular, symmetrical. GI: Abdomen is flat, non-distended. GI: Reports nausea, vomiting. : No signs and/or symptoms were reported regarding the genitourinary system. EENT: No signs and/or symptoms were reported regarding the EENT system. Derm: Skin is pink, warm \T\ dry. Musculoskeletal: No signs and/or symptoms reported regarding the musculoskeletal system. 18:05 Reassessment: pt tolerating water, chicken broth and crackers at this time. sg 19:00 Reassessment: Patient appears in no apparent distress at this time. pt assisted to the sg restroom via wheelchair, pt reports blood in toilet that is bright red, reports this is not new, has been happening since her hernia surgery but normally isnt this bad. has been notified. 19:10 Reassessment: Patient appears in no apparent distress at this time. Patient and/or jb4 family updated on plan of care and expected duration. Pain level reassessed. Patient is alert, oriented x 3, equal unlabored respirations, skin warm/dry/pink. PT assisted to the restroom and back to bed. IV d/c'ed due to being occluded. Will not flush or pull. 20:28 Reassessment: Patient appears in no apparent distress at this time. Patient and/or jb4 family updated on plan of care and expected duration. Pain level reassessed. Patient is alert, oriented x 3, equal unlabored respirations, skin warm/dry/pink. 21:30 Reassessment: Patient appears in no apparent distress at this time. Patient and/or jb4 family updated on plan of care and expected duration. Pain level reassessed. Patient is alert, oriented x 3, equal unlabored respirations, skin warm/dry/pink. 22:30 Reassessment: Patient appears in no apparent distress at this time. Patient and/or jb4 family updated on plan of care and expected duration. Pain level reassessed. Patient is alert, oriented x 3, equal unlabored respirations, skin warm/dry/pink. 22:53 Reassessment: Report called to GUME Coy. jb4 23:26 Reassessment: Patient appears in no apparent distress at this time. Patient and/or jb4 family updated on plan of care and expected duration. Pain level reassessed. Patient is alert, oriented x 3, equal unlabored respirations, skin warm/dry/pink. Vital Signs: 15:45 BP 141 / 83; Pulse 90; Resp 16; Temp 97.6; Pulse Ox 98% on R/A; Pain 0/10; sg 19:10 BP 143 / 93; Pulse 95; Resp 18; Pulse Ox 95% on R/A; jb4 20:00 BP 129 / 76; Pulse 95; Resp 16; Pulse Ox 100% on R/A; jb4 21:00 BP 147 / 80; Pulse 93; Resp 16; Temp 98.4(O); Pulse Ox 96% on R/A; jb4 22:00 BP 156 / 64; Pulse 101; Resp 16; Pulse Ox 99% on R/A; jb4 23:24 BP 136 / 80; Pulse 95; Resp 16; Pulse Ox 96% on R/A; jb4 ED Course: 15:37 Patient arrived in ED. iw 15:40 Patient has correct armband on for positive identification. Bed in low position. Call sg light in reach. Side rails up X2. Pulse ox on. NIBP on. Head of bed. 15:42 Kevin Johnson, GUME is Primary Nurse. sg 15:42 Arm band placed on. sg 15:44 Triage completed. sg 15:48 Bismark Adams MD is Attending Physician. kdr 16:00 Initial lab(s) drawn, by ky, sent to lab. Inserted saline lock: 22 gauge in right sg antecubital area, using aseptic technique. Blood collected. 19:14 Attending Physician role handed off by Bismark Adams MD [place] 19:14 Tommy Reyes MD is Attending Physician. [place] 20:42 Hasmukh Pollock MD is Hospitalizing Provider. [place] 20:45 Radiology exam delayed due to IV insertion attempt and/or patient not having mw3 appropriate IV at this time. 21:00 EKG done, by ED staff, reviewed by Tommy Reyes MD. ds4 21:38 CT completed. Patient tolerated procedure well. Patient moved back from CT. 2 23:46 No provider procedures requiring assistance completed. Patient admitted, IV remains in jb4 place. Administered Medications: 16:30 Drug: Zofran 4 mg Route: IVP; Site: right antecubital; sg 17:10 Follow up: Response: No adverse reaction sg 16:30 Drug: Pepcid 20 mg Route: IVP; Site: right antecubital; sg 17:00 Follow up: Response: No adverse reaction sg 16:30 Drug: NS 0.9% 500 ml Route: IV; Rate: bolus; Site: right antecubital; sg 17:20 Follow up: Response: No adverse reaction; IV Status: Completed infusion; IV Intake: sg 500ml 22:01 Drug: Zosyn 3.375 grams Route: IVPB; Infused Over: 60 mins; Site: right antecubital; jb4 23:01 Follow up: Response: No adverse reaction; IV Status: Completed infusion; IV Intake: jb4 100ml 22:01 Drug: Tylenol 650 mg Route: PO; jb4 23:22 Follow up: Response: No adverse reaction; Pain is decreased jb4 23:25 Drug: vancoMYCIN 1 grams Route: IVPB; Infused Over: 2 hrs; Site: right antecubital; jb4 23:26 Follow up: Response: No adverse reaction; IV Status: Infusion continued upon admission jb4 Intake: 17:20 IV: 500ml; Total: 500ml. sg 23:01 IV: 100ml; Total: 600ml. 4 Outcome: 20:44 Decision to Hospitalize by Provider. [place] 23:46 Admitted to Tele accompanied by [facility], via stretcher, room 411, with chart, Report jb4 called to GUME Coy 23:46 Condition: stable 23:46 Discharge instructions given to patient, Instructed on the need for admit, Demonstrated understanding of instructions. 23:47 Patient left the ED. jb4 Signatures: Kevin Johnson, Tommy Schmitt RN, MD MD cha Rittger, Kevin, MD MD kdr Williams, Irene, RN RN iw Swanson, Donovan ds4 Ryan Gonzalez RN RN [facility] Alise Thomas 2 Hayde Giraldo 3 Corrections: (The following items were deleted from the chart) 22:56 22:55 EKG done, by ED staff, reviewed by Tommy Reyes MD ds4 ds4
--- NOTE | 2019-01-11 20:45 | EDPHYS ---
Physician Documentation [facility] Name: Elva Jenkins Age: 88 yrs Sex: Female : 1930 Arrival Date: 01/11/2019 Time: 15:37 Bed 17 Private MD: ED Physician Tommy Reyes Historical: - Allergies: 01/11 15:45 Asacol; sg 15:45 Humira; sg 15:45 Methotrexate; sg 15:45 Orencia; sg 15:45 Phenergan; sg 15:45 Sulfazine; sg - PMHx: 15:45 Arthritis; COPD; Depression; GERD; Hyperlipidemia; Hypothyroidism; sg - Immunization history:: Adult Immunizations not up to date. - Social history:: Smoking status: Patient/guardian denies using tobacco. - Ebola Screening: : Patient negative for fever greater than or equal to 101.5 degrees Fahrenheit, and additional compatible Ebola Virus Disease symptoms Patient denies exposure to infectious person Patient denies travel to an Ebola-affected area in the 21 days before illness onset No symptoms or risks identified at this time. Vital Signs: 15:45 BP 141 / 83; Pulse 90; Resp 16; Temp 97.6; Pulse Ox 98% on R/A; Pain 0/10; sg 19:10 BP 143 / 93; Pulse 95; Resp 18; Pulse Ox 95% on R/A; jb4 20:00 BP 129 / 76; Pulse 95; Resp 16; Pulse Ox 100% on R/A; jb4 21:00 BP 147 / 80; Pulse 93; Resp 16; Temp 98.4(O); Pulse Ox 96% on R/A; jb4 22:00 BP 156 / 64; Pulse 101; Resp 16; Pulse Ox 99% on R/A; jb4 23:24 BP 136 / 80; Pulse 95; Resp 16; Pulse Ox 96% on R/A; jb4 MDM: 19:14 Patient medically screened. [facility] 01/11 16:34 Order name: Basic Metabolic Panel; Complete Time: 20:39 EDMS 01/11 16:34 Order name: CBC with Automated Diff; Complete Time: 20:39 EDMS 01/11 20:39 Order name: LFT's [facility] 01/11 20:39 Order name: Magnesium [facility] 01/11 20:39 Order name: NT PRO-BNP [facility] 01/11 20:39 Order name: PT-INR [facility] 01/11 20:39 Order name: Troponin (emerg Dept Use Only) [facility] 01/11 20:39 Order name: XRAY Chest (1 view) [facility] 01/11 20:39 Order name: Urine Culture [facility] 01/11 20:47 Order name: Urine Dipstick--Ancillary (enter results) ar5 01/11 20:56 Order name: Basic Metabolic Panel [facility] 01/11 20:56 Order name: Basic Metabolic Panel [facility] 01/11 20:56 Order name: CBC with Automated Diff [facility] 01/11 20:56 Order name: CBC with Automated Diff [facility] 01/11 20:39 Order name: EKG; Complete Time: 20:39 [facility] 01/11 20:39 Order name: Cardiac monitoring; Complete Time: 22:55 [facility] 01/11 20:39 Order name: EKG - Nurse/Tech; Complete Time: 22:55 [facility] 01/11 20:39 Order name: IV Saline Lock; Complete Time: 21:07 [facility] 01/11 20:39 Order name: Labs collected and sent; Complete Time: 21:07 [facility] 01/11 20:39 Order name: CT Abd/Pelvis - IV Contrast Only [facility] 01/11 20:56 Order name: CONS Pharmacy Consult [facility] 01/11 20:56 Order name: CONS Physician Consult [facility] 01/11 20:56 Order name: CONS Physician Consult [facility] 01/11 20:56 Order name: NPO [facility] 01/11 20:39 Order name: O2 Per Protocol; Complete Time: 21:07 [facility] 01/11 20:39 Order name: O2 Sat Monitoring; Complete Time: 21:07 [facility] 01/11 20:39 Order name: Urine Dipstick-Ancillary (obtain specimen); Complete Time: 20:44 [facility] Administered Medications: 16:30 Drug: Zofran 4 mg Route: IVP; Site: right antecubital; sg 17:10 Follow up: Response: No adverse reaction sg 16:30 Drug: Pepcid 20 mg Route: IVP; Site: right antecubital; sg 17:00 Follow up: Response: No adverse reaction sg 16:30 Drug: NS 0.9% 500 ml Route: IV; Rate: bolus; Site: right antecubital; sg 17:20 Follow up: Response: No adverse reaction; IV Status: Completed infusion; IV Intake: sg 500ml 22:01 Drug: Zosyn 3.375 grams Route: IVPB; Infused Over: 60 mins; Site: right antecubital; jb4 23:01 Follow up: Response: No adverse reaction; IV Status: Completed infusion; IV Intake: jb4 100ml 22:01 Drug: Tylenol 650 mg Route: PO; jb4 23:22 Follow up: Response: No adverse reaction; Pain is decreased jb4 23:25 Drug: vancoMYCIN 1 grams Route: IVPB; Infused Over: 2 hrs; Site: right antecubital; jb4 23:26 Follow up: Response: No adverse reaction; IV Status: Infusion continued upon admission jb4 Disposition: 01/11/19 20:44 Hospitalization ordered by Hasmukh Pollock for Inpatient Admission. Preliminary diagnosis are Vomiting, Weakness, Cutaneous abscess of groin - labia, left greater than right, Urinary tract infection, site not specified. - Bed requested for Telemetry/MedSurg (Inpatient). - Status is Inpatient Admission. jb4 - Condition is Fair. - Problem is new. - Symptoms have improved. UTI on Admission? Yes Signatures: Dispatcher [employer] EDMS Kevin Johnson RN RN Tommy Thibodeaux MD MD cha Rittger, Kevin, MD MD kdr Lasagna, Tonya, RN RN tl1 Ryan Gonzalez RN RN jb4 Corrections: (The following items were deleted from the chart) 21:22 20:44 Hospitalization Ordered by Hasmukh Pollock MD for Inpatient Admission. Preliminary tl1 diagnosis is Vomiting; Weakness; Cutaneous abscess of groin - labia, left greater than right; Urinary tract infection, site not specified. Bed requested for Telemetry/MedSurg (Inpatient). Status is Inpatient Admission. Condition is Fair. Problem is new. Symptoms have improved. UTI on Admission? Yes. [place] 23:47 21:22 01/11/2019 20:44 Hospitalization Ordered by Hasmukh Pollock MD for Inpatient jb4 Admission. Preliminary diagnosis is Vomiting; Weakness; Cutaneous abscess of groin - labia, left greater than right; Urinary tract infection, site not specified. Bed requested for Telemetry/MedSurg (Inpatient). Status is Inpatient Admission. Condition is Fair. Problem is new. Symptoms have improved. UTI on Admission? Yes. tl1
[2019-01-11] MEDS ORDERED: ACETAMINOPHEN 500 MG TAB PO PRN (20:50)
[2019-01-11] MEDS ORDERED: MORPHINE 2 MG/ML SYR IV PRN (20:50)
[2019-01-11] MEDS ORDERED: VANCOMYCIN/NS 1 gm 1 GM/250 ML BAG IVPB SCH (21:00)
[2019-01-11] MEDS ORDERED: FAMOTIDINE 20 MG/2 ML VIAL IV SCH (21:00)
[2019-01-11 21:18] LABS: Protime INR 0.95
[2019-01-11 21:26] LABS: Urine Blood 1+ (NEG); Urine Glucose NEGATIVE (NEG); Urine Protein NEGATIVE (NEG); Urine Specific Gravity 1.015 (1.005-1.030); Urine pH 6.5 (5.0-7.0)
[2019-01-11 21:32] LABS: ALT/SGPT 17 U/L (12-78); AST/SGOT 19 U/L (15-37); Alkaline Phosphatase 56 U/L (45-117); Bilirubin Direct 0.3 mg/dL (0-0.2); Bilirubin Total 1.3 mg/dL (0.2-1.0); Magnesium 1.9 mg/dL (1.8-2.4); NT PRO-BNP 399 pg/mL (<450); Troponin (Emerg Dept Use Only) < 0.02 ng/mL (0.0-0.045)
[2019-01-11] MEDS ORDERED: VANCOMYCIN 1 GM/VIAL ONE (21:47)
[2019-01-11] MEDS ORDERED: NA CHLORIDE 0.9% 250 ML ONE (21:47)
[2019-01-11] MEDS ORDERED: ACETAMINOPHEN 325 MG TABLET ONE ×2 (21:47→21:55)
[2019-01-12] MEDS: NA CHLORIDE 0.9% 1,000 ML IV SCH ×4 (00:06→17:00)
[2019-01-12] MEDS: PIPER/TAZO/NS 3.375gm 3.375 GM/100 ML BAG IVPB SCH ×3 (01:40→16:16)
[2019-01-12] MEDS ORDERED: VANCOMYCIN/NS 1 gm 1 GM/250 ML BAG IVPB SCH (02:00)
[2019-01-12] MEDS: ONDANSETRON 4 MG/2 ML VIAL IV PRN ×2 (02:16→06:13)
[2019-01-12 05:33] LABS: Absolute Lymphocytes (CBC) 2.7 K/uL (0.7-4.9); Basophils % 0.4 % (0-1.3); Hematocrit 34.6 % (36.0-45.0); Lymphocytes % 37.1 % (15.3-44.8); MPV 7.5 fL (7.6-11.3); RBC Red Blood Cell Count 3.58 M/uL (3.86-4.86)
[2019-01-12 05:49] LABS: BUN Blood Urea Nitrogen 6 mg/dL (7-18); Bicarbonate 26 mmol/L (21-32); Glucose Level 81 mg/dL (74-106); Potassium 3.9 mmol/L (3.5-5.1); Sodium Level 133 mmol/L (136-145)
--- NOTE | 2019-01-12 07:42 | EKG ---
Test Date: 2019-01-11 Test Time: 21:57:05 Radial Router Operator: GREGORIO MEASUREMENT RESULTS: Intervals: Rate: 98 CA: 152 QRSD: 74 QT: 348 QTc: 444 [place]: P: 70 CA: 152 QRS: -24 T: 63 INTERPRETIVE STATEMENTS: Normal sinus rhythm Possible Left atrial enlargement Borderline ECG Compared to ECG 12/18/2018 16:02:57 Atrial premature complex(es) no longer present Electronically Signed On 01-12-19 07:41:46 CDT by Neri Ward
[2019-01-12] MEDS ORDERED: BENZONATATE 100 MG CAP PO PRN (07:57)
[2019-01-12] MEDS ORDERED: PARoxetine HCl 10 MG TAB PO PRN (07:57)
[2019-01-12] MEDS ORDERED: ALBUTEROL 2.5 MG/3 ML NEB SOL IH PRN (07:57)
--- NOTE | 2019-01-12 08:00 | RAD REPORT ---
EXAM DESCRIPTION: Asaf Single View01/11/2019 9:06 pm CLINICAL HISTORY: Cough COMPARISON: November 2018 FINDINGS: The lungs appear clear of acute infiltrate. The heart is normal size IMPRESSION: No acute abnormalities displayed
[2019-01-12] MEDS: predniSONE 5 MG TAB PO SCH ×2 (08:54→20:59)
[2019-01-12] MEDS ORDERED: TIOTROPIUM 5 SPRAYS/INHALER IH SCH (09:00)
[2019-01-12] MEDS: METHYLPREDNISOLONE 40 MG INJ IV SCH ×3 (10:16→17:01)
--- NOTE | 2019-01-12 10:34 | RAD REPORT ---
EXAM DESCRIPTION: CT - Head Brain Wo Cont - 01/11/2019 10:52 pm CLINICAL HISTORY: The patient is 88 years old and is Female; ABD PAIN TECHNIQUE: Axial computed tomography images of the head/brain without intravenous contrast. Sagitt al and coronal reformatted images were created and reviewed. This CT exam was performed using one o r more of the following dose reduction techniques: automated exposure control, adjustment of the mA and/or kV according to patient size, and/or use of iterative reconstruction technique. COMPARISON: October 30, 2018 FINDINGS: Brain: Periventricular and deep white matter hypodensities, most commonly due to nonspec [facility] white matter chronic microvascular ischemia. Mild cerebral atrophy. Right frontal encephalomalacia, unchanged. No hemorrhage. Ventricles: Unremarkable. No ventriculomegaly. Bones/joints: Unremarkable. No acute fracture. Soft tissues: Unremarkable. Vasculature: Vascular calcifications. Sinuses: Unremarkable as visualized. No acute sinusitis. Mastoid air cells: Unremarkable as visualized. No mastoid effusion. IMPRESSION: No acute intracranial findings. Mild cerebral atrophy and nonspecific chronic microvascu lar ischemic changes. Electronically signed by: Jamie Bo MD 01/11/2019 9:53 PM CDT Due to temporary technical issues with the PACS/Fluency reporting system, reports are being signed by the in house radiologist as a courtesy to ensure prompt reporting. The interpreting radiologist is f ully responsible for the content of the report.
--- NOTE | 2019-01-12 10:36 | RAD REPORT ---
EXAM DESCRIPTION: CT - Abdomen Pelvis W Contrast - 01/11/2019 10:53 pm CLINICAL HISTORY: PAIN COMPARISON: None Available TECHNIQUE: Contiguous axial images of the abdomen and pelvis were obtained after the administration of intravenous contrast followed by reconstruction images.This exam was performed according to our de partmental dose-optimization program, which includes automated exposure control, adjustment of the mA and/or kV according to patient size and/or use of iterative reconstruction technique. FINDINGS: There is no hydronephrosis. The gallbladder is surgically absent. The pancreatic duct is mildly enlarged. This may be related to history of cholecystectomy. There is colonic diverticulosis. No evidence of diverticulitis. The appendix is not well seen but there is no clear evidence of appendicitis.. Adrenal glands are within normal limits. Aorta is normal in caliber and tapering. No significant free fluid. No free air. No bowel obstruction. There is no stranding of the mesenteric fat. There is a probably calcified nodule at the right lung base There are numerous soft tissue attenuation nodules in the lung bases measuring up to approximately 4 x 3 mm diameter. There is also poorly defined increased attenuation at the posterior left lung base t hat may reflect scar/atelectasis. The lungs are only partially imaged. No other significant acute abnormality. IMPRESSION: No clear etiology for acute symptoms. Electronically signed by: Marito Campos 01/11/2019 10:08 PM CDT Due to temporary technical issues with the PACS/Fluency reporting system, reports are being signed by the in house radiologist as a courtesy to ensure prompt reporting. The interpreting radiologist is f ully responsible for the content of the report.
[2019-01-12] MEDS ORDERED: Ringers Lactate 1,000 ML IV ONE (12:55)
[2019-01-12] MEDS ORDERED: LIDOCAINE 1% MPF 5 ML VIAL ONE (12:57)
[2019-01-12] MEDS ORDERED: FENTANYL CITR 100 MCG/2 ML ONE (12:57)
[2019-01-12] MEDS ORDERED: PROPOFOL 200 MG/20 ML VIAL IV ONE (12:57)
--- NOTE | 2019-01-12 13:29 | P.CNS ---
Date of Consult: 01/12/19 PC: This 88-year-old female presents emergency room with pain in discomfort and her left labia. HPC: Patient has noticed some pain in discomfort in this area for the last few days. Has been found to have an abscess. Has urinary incontinence and wears depends. PMH: CAD SOC: Numerous allergies listed and noted SYS REVIEW: No cough, wheeze, shortness of breath. No chest pain or palpitations. Denies any fevers or chills. O/E awake alert vital signs are stable HEENT: Within normal limb Chest: Chest movement equal bilateral ABD: Soft nontender LOCO: Abscess in the left labia smaller on a right DATA: Within normal limits IMPRESSION: Large abscess left labia, smaller on right PLAN: I will take to the operating room for incision and drainage of this abscess. The risks of this procedure have been discussed. The possibility of bleeding, infection, recurrence were outlined. She also has a smaller were on the right that we will deal with this as well. She understands and wants us to proceed.
[2019-01-12] MEDS ORDERED: ONDANSETRON 4 MG/2 ML VIAL ONE (13:55)
[2019-01-12] MEDS ORDERED: KETOROLAC 30 MG/ML INJ ONE (13:55)
[2019-01-12] MEDS ORDERED: HYDROMORPHONE HCL 1 MG/ML INJ ONE (14:28)
--- NOTE | 2019-01-12 14:44 | P.OP ---
Preoperative diagnosis: Abscess of the left and right labia Postoperative diagnosis: The same Primary procedure: Incision, drainage, sharp debridement of abscess of the left and right labi Estimated blood loss: Less than 10 cc Operative Technique: The patient brought the operating room placed supine on the table. After the induction of adequate general anesthesia, the area of the perineum was prepped after placing the patient in lithotomy. She was draped in usual aseptic manner. Attention was turned towards the left labia. At the inferior edge we could see a large abscess measuring approximately 3 cm x 2 cm in size. He was trying to come to a point. In this area was inject with 1% lidocaine. A skin incision was made clean hard a large amount of purulent material. This area was now sharply debrided with 11 blade and a cutting surgical curette. The abscess cavity was scraped clean. A 2. Nylon was placed into the wound and brought out more superiorly tying in on itself to create a drain for the postoperative period. On the right-hand side also in the inferior edge of the labia there was another small abscess that had formed. This was incised and drained once again with an 11 blade. The abscess cavity was sharply debrided again with 11 blade and a cutting surgical curette. The wound was left open. At the end of procedure she was stable when sent to recovery. Needle sponge instrument count were correct. The 1 drain was placed. Complications: None Transferred to: Recovery Room Condition: Good
[2019-01-12] MEDS ORDERED: HYDROCODONE/APAP 7.5/325 MG TAB PO PRN (14:51)
[2019-01-12] MEDS: ENOXAPARIN 30 MG/0.3 ML SQ SCH (16:16)
[2019-01-12] MEDS: ENSURE ENLIVE 237 ML CAN PO SCH (16:18)
[2019-01-12] MEDS ORDERED: FAMOTIDINE 20 MG/2 ML VIAL IV ONE ×2 (16:21)
[2019-01-12] MEDS ORDERED: ENSURE ENLIVE 237 ML CAN PO SCH (17:00)
[2019-01-12] MEDS: FAMOTIDINE 20 MG TAB PO SCH (17:01)
[2019-01-12] MEDS: ATORVASTATIN 40 MG TAB PO SCH (20:59)
[2019-01-12] MEDS: MELATONIN 3 MG TABLET PO SCH (20:59)
--- NOTE | 2019-01-12 22:25 | HP ---
Date of Admission: 01/11/2019 Chief Complaint: Nausea, vomiting, unable to eat, and pain. History Of Present Illness: An 88-year-old female patient who came to see me a couple of days ago wi th painful swelling in her perineal area. The patient was diagnosed as having Bartholin gland absces s, worse on left side than the right side and was started on Augmentin and warm compresses was advise d. Upon examination at office what she had, was firm, induration without any fluctuation in the affe cted area of each labia majora. There was no evidence of any pus collection, so no need for any drai nage procedure. Patient started to take her antibiotic, just took 1 dose and yesterday, she called o ffice and said that she was feeling bad, was having lot of nausea, dry heaves, some vomiting, very po or appetite and has not had anything to eat or drink for 2 to 3 days as she tells me today and feelin g really bad, so she called office with all these complaints yesterday and she was advised to come to the emergency room. After she was evaluated in the ER, she was admitted to the hospital. Medications: List reviewed. Review of Systems: Dermatology: As mentioned above. GI: As mentioned above. Constitutional: As mentioned above. All other systems reviewed and negative. Allergies: SHE IS LISTED ALLERGIC TO SULFA CAUSING HEADACHE, RITUXIMAB CAUSING LEG SWELLING, PROM ETHAZINE CAUSING HALLUCINATION AND ARM JERKING, METHOTREXATE CAUSING DYSPNEA, MESALAMINE CAUSING SORE THROAT AND HIVES, ADALIMUMAB CAUSING FACE SWELLING, AND ABATACEPT CAUSING JOINT PAIN. Past Surgical History: Significant for hysterectomy, appendectomy, cholecystectomy, cataract surgery , removal of benign rectal mass on August 02, 2017 in [place]. Family History: Parents of old age at 99 and 95 years. Sister had stroke and hypertension. Social History: Negative for smoking, alcohol use. Past Medical History: Significant for lymphedema, hypertension, hypothyroidism, COPD, chronic steroi d therapy, rheumatoid arthritis, chronic leg edema, hemorrhoid surgery, Clostridium difficile colitis , DVT of leg and pulmonary embolism diagnosed in August 2017. Physical Examination: Vital Signs: Temperature 99.7, pulse 84, respiratory rate 16, blood pressure 157/67, oxygen saturati on 94%, height 4 feet 11 inches, weight 115 pounds. General: Awake, alert, oriented, not in distress. HEENT: Head atraumatic, normocephalic. Conjunctivae nonerythematous. Sclerae white. Mouth, no thr ush or edema noted. Ears/Nose, no mass, lesion, discharge noted. Neck: Supple. No JVD, lymph nodes, bruit, thyromegaly noted. Lungs: Bilateral good equal air entry. Clear to auscultation. No rhonchi. No rales. Heart: Normal heart sounds, no murmur or gallop. Abdomen: Soft, bowel sounds normal. No guarding, rigidity, tenderness, mass, hepatosplenomegaly, dis tention, or bruit noted. Extremities: Bilateral grade 1 edema nonpitting. Skin: No rash, ulcer, cellulitis. Lymphatics: No lymph node enlargement in neck, supraclavicular, infraclavicular region. Neuro: No focal neurological deficit. Chest: Unremarkable. External Genitalia: Patient was examined in presence of charge nurse on the floor and she has 2 jeffrey holin gland abscesses, 1 on the left side and 1 on the right side. Left side is larger than the righ t side. Both of this area of abscess is located right at the bottom part of labia majora on both charito e. Left one is larger approximately 3 cm in size and right one is smaller probably between 5-10 mm i n size. Skin overlying is red, warm, tender. No fluctuation. No open wound and this finding is unc hanged from what it was 2 days ago when I saw her at office. Rectal: Deferred. Laboratory Data: Yesterday's white count 9.4, hemoglobin 13.1 platelets 228. Today, white count 7.3 , hemoglobin 12.2, platelets 201. Yesterday; sodium 134, potassium 3.9, chloride 100, bicarb 29, BUN 9, creatinine 0.60, glucose 100. Liver function tests unremarkable except total bilirubin 1.3. Tod ay, sodium 133, potassium 3.9, chloride 103, bicarb 26, BUN 6, creatinine 0.58, glucose 81. Urinalys is; 1+ ketones, 1+ blood, leukocyte esterase. CAT scan of the head and abdomen and pelvis, no acute findings noted. Impression: 1.Bartholin gland abscess, bilateral. 2.Hyponatremia. 3.Anemia, unspecified. 4.Chronic obstructive pulmonary disease. 5.Nausea. 6.Generalized weakness. 7.Chronic steroid therapy. 8.Hypertension. 9.Lymphedema, legs. 10.Hypothyroidism. 11.Rheumatoid arthritis. 12.History of deep venous thrombosis and pulmonary embolism. Plan: We will admit the patient to the hospital for further evaluation and management of this proble m. Patient is appropriate for inpatient and is expected to spend 2 midnights in hospital. After she was evaluated in the ER, she was admitted to the hospital. IV Zosyn was started. We will continue that. Continue home medications per order. We will give her some IV steroids as per order. General surgeon, Dr. Fajardo was consulted. We will wait for his evaluation and recommendation. Details of plan of treatment discussed with the patient. I will see her tomorrow for followup. ARNOL/MAGDA Voice ID: [id number]
[2019-01-13] MEDS: PIPER/TAZO/NS 3.375gm 3.375 GM/100 ML BAG IVPB SCH ×3 (00:21→16:39)
[2019-01-13] MEDS: METHYLPREDNISOLONE 40 MG INJ IV SCH ×4 (00:21→17:43)
[2019-01-13] MEDS: NA CHLORIDE 0.9% 1,000 ML IV SCH ×3 (01:13→16:40)
[2019-01-13] MEDS: VANCOMYCIN/NS 1 gm 1 GM/250 ML BAG IVPB SCH (01:13)
[2019-01-13] MEDS: LEVOTHYROXINE SOD 0.05 MG TABLET PO SCH (06:11)
[2019-01-13] MEDS: predniSONE 5 MG TAB PO SCH ×2 (11:04→22:27)
[2019-01-13] MEDS: PANTOPRAZOLE 40MG TABLET PO SCH (11:04)
[2019-01-13] MEDS: ENSURE ENLIVE 237 ML CAN PO SCH ×3 (11:05→17:00)
[2019-01-13] MEDS: FAMOTIDINE 20 MG TAB PO SCH (16:38)
[2019-01-13] MEDS: ENOXAPARIN 30 MG/0.3 ML SQ SCH (16:39)
--- NOTE | 2019-01-13 17:45 | PN ---
Date of Progress Note: 01/13/2019 Subjective: Patient was seen this morning for followup. No new complaints or problems reported by h er. Overall she feels better today than yesterday. She had a surgical procedure by Dr. Fajardo for those Bartholin gland abscess. She is still not back to her normal self, but overall better than yes terday. Objective: Vital Signs: Reviewed. HEENT: Unremarkable. Lungs: Clear to auscultation. Heart: Sounds normal. Abdomen: Soft. Bowel sounds normal. No guarding, rigidity, tenderness, or distention. Extremities: No leg edema. Impression: 1.Bartholin gland abscess. 2.Chronic obstructive pulmonary disease. 3.Hypertension. Plan: Continue current antibiotics. Follow up on culture results and the patient was advised to amb ulate today and I will see her tomorrow for followup. I have asked patient to learn from nursing sta ff how to keep this area covered with a gauze as per instruction from surgeon and hopefully, we can d ischarge her to go home tomorrow. ARNOL/MODL Voice ID: [id number] Report ID: [id number]
[2019-01-13] MEDS: ATORVASTATIN 40 MG TAB PO SCH (22:26)
[2019-01-13] MEDS: MELATONIN 3 MG TABLET PO SCH (22:27)
[2019-01-14] MEDS: METHYLPREDNISOLONE 40 MG INJ IV SCH ×2 (00:33→05:39)
[2019-01-14] MEDS: PIPER/TAZO/NS 3.375gm 3.375 GM/100 ML BAG IVPB SCH (00:36)
[2019-01-14] MEDS: VANCOMYCIN/NS 1 gm 1 GM/250 ML BAG IVPB SCH (01:57)
[2019-01-14] MEDS: NA CHLORIDE 0.9% 1,000 ML IV SCH ×2 (04:10→09:00)
[2019-01-14] MEDS: LEVOTHYROXINE SOD 0.05 MG TABLET PO SCH (05:34)
[2019-01-14 05:49] VITALS: BMI 25.2
[2019-01-14 08:23] VITALS: TEMP 98.2
[2019-01-14] MEDS: PANTOPRAZOLE 40MG TABLET PO SCH (08:33)
[2019-01-14] MEDS: ENSURE ENLIVE 237 ML CAN PO SCH (08:34)
[2019-01-14] MEDS: predniSONE 5 MG TAB PO SCH (08:34)
[2019-01-14] MEDS ORDERED: DOXYCYCLINE 100 MG CAP PO SCH (09:00)
[2019-01-14 09:04] VITALS: O2SAT 94
[2019-01-14 09:56] VITALS: BP 130/80
--- NOTE | 2019-01-14 20:46 | DS ---
Date of Discharge: 01/14/2019 Disposition: Discharged to go home. Physical Examination: HEENT: Unremarkable. Lungs: Clear to auscultation. Heart: Sounds normal. Abdomen: Soft. Bowel sounds normal. No guarding, rigidity, tenderness, or distention. Extremities: No leg edema. External Genitalia: Shows a firm swelling on both lower labia majora, worse on the left than the rig ht side, but overall it is significantly better than what it was at the time of admission. On the le ft side, patient does have 1 stage present which was placed by Dr. Fajardo. No active discharge or b leeding noted and overall swelling on both side is approximately 50% better. Laboratory Data: Labs done during this hospitalization upon admission, sodium 134, potassium 3.9, ch loride 100, bicarb 29, BUN 9, creatinine 0.60, glucose 100. Liver function test unremarkable except total bilirubin 1.3. Upon admission, white count was 9.4, hemoglobin 13.1, platelets 220. Wound cul ture grew Staphylococcus aureus. It is sensitive to oxacillin, but resistant to penicillin and it is sensitive to tetracycline, Bactrim, vancomycin. Hospital Course: An 88-year-old female patient admitted to the hospital with nausea, vomiting, unabl e to eat and pain in her perineal region. Please see dictated H and P for more information. Patient was started on oral antibiotic Augmentin for bilateral Bartholin gland abscess. She took only 1 dos e of antibiotic and her condition deteriorated, so she came into emergency room. After that, she was admitted to the hospital. While in the hospital, she was started on IV vancomycin and IV Zosyn. Dr Pratima Fajardo was consulted from General Surgery. He took the patient to operating room and put 1 stitch in the left infected area to assist with drainage and what the patient needs to do is on a daily bas is apply clean sterile dressing on both labia. She is not able to do it herself, so we will have to make arrangements for Home Health nurse to assist her as she lives at home by herself. She is ambula ting well. Her nausea and vomiting problem have resolved and she is tolerating diet very well. Over all, she feels much better. Dr. Fajardo has informed nursing staff that I can remove this stitch on Tuesday or or this coming week when I see her for followup, so the patient will not need t o go see him for followup unless I see any concern at the time of my office visit. Final Diagnoses: 1.Bartholin gland abscess. 2.Anemia, unspecified. 3.Chronic obstructive pulmonary disease. 4.Nausea. 5.Generalized weakness. 6.Chronic steroid therapy. 7.Chronic lymphedema, legs. 8.Hypothyroidism. 9.Rheumatoid arthritis. 10.History of deep venous thrombosis and pulmonary embolism. Medications: Continue all prior home medication except stop antibiotic Augmentin which was prescribe d prior to this admission and start new antibiotic doxycycline 100 mg 2 times a day for 10 days. Followup: Follow up at my office on 01/17/2019 or 01/18/2019. ARNOL/MODL Voice ID: [id number] Report ID: [id number]
--- OUTSIDE RECORDS SUMMARY | 2019-01-21 18:59 | XMS REPORT ---
:1930 Author Organization [facility] Address [address] [place] [address] [address] [place] [address] Care Team Providers Name Role Phone KIM MCKEON Unavailable Unavailable OTRICARDO ALMONTE Unavailable Unavailable Problems This patient has no known problems. Allergies, Adverse Reactions, Alerts This patient has no known allergies or adverse reactions. Medications This patient has no known medications. Results Test Description Test Time Test Comments Text Results Atomic Results Result Comments TISSUE EXAM 2017-09-20 16:22:00 Surgical Pathology Report Case: [id number] Authorizing Provider: Misha Calloway MD Collected: 09/16/2017 1538 Ordering Location: [address] Received: 09/19/2017 0820 Service Pathologist: Larry Cohn MD Specimen: Polyp, Colon - Rectosigmoid, POLYP TAKEN BY HOT SNARE RECTO-SIGMOID, POLYPECTOMY- TUBULAR ADENOMA- CAUTERIZED EDGE, NEGATIVE FOR ADENOMATOUS CHANGE Signing Pathologist Direct Phone Line: [phone] signed by Larry Cohn MD on 09/20/2017 at 4:22 [id number] bleedRectosigmoid colon polypThe specimen is received in [...] Value Reference Range Comments MAGNESIUM (BEAKER) (test hghf=125) 1.9 mg/dL 1.6-2.6 BASIC METABOLIC [id number] 07:32:00 Test Item Value Reference Range Comments SODIUM (BEAKER) (test 138 meq/L 136-145 jsir=114) POTASSIUM (BEAKER) (test 4.2 meq/L 3.5-5.1 mnoh=868) CHLORIDE (BEAKER) (test 106 meq/L 98-107 gufz=789) CO2 (BEAKER) (test 25 meq/L 22-29 fogk=952) BLOOD UREA NITROGEN 6 mg/dL 7-21 (BEAKER) (test eqvj=348) CREATININE (BEAKER) (test 0.66 mg/dL 0.57-1.25 mguo=216) GLUCOSE RANDOM (BEAKER) 76 mg/dL 70-105 (test vcds=071) CALCIUM (BEAKER) (test 8.4 mg/dL 8.4-10.2 qnyt=390) EGFR (BEAKER) (test 85 mL/min/1.73 sq m ESTIMATED GFR IS NOT ruhv=2256) ACCURATE CREATININE CLEARANCE IN PREDICTING GLOMERULAR FILTRATION RATE. ESTIMATED GFR IS NOT APPLICABLE FOR DIALYSIS PATIENTS. [id number] 06:42:00 Test Item Value Reference Range Comments PROTIME (BEAKER) (test yaxh=539) 20.8 seconds 11.7-14.7 INR (BEAKER) (test irrk=775) 1.8 <=5.9 PARTIAL THROMBOPLASTIN TIME (BEAKER) (test 36.1 seconds 22.5-36.0 udyc=590) RECOMMENDED COUMADIN/WARFARIN INR THERAPY RANGESSTANDARD DOSE: 2.0 - 3.0 Includes: PROPHYLAXIS forvenous thrombosis, systemic embolization; TREATMENT for venous thrombosis and/or pulmonary embolus.HIGH RISK: Target INR is 2.5-3.5 for patients with mechanical heart valves.CBC W/PLT COUNT & AUTO [id number] 06:41:00 Test Item Value Reference Range Comments WHITE BLOOD CELL COUNT (BEAKER) (test zeiz=586) 5.5 K/ L 3.5-10.5 RED BLOOD CELL COUNT (BEAKER) (test nthu=891) 3.52 M/ L 3.93-5.22 HEMOGLOBIN (BEAKER) (test ujhy=080) 10.4 GM/DL 11.2-15.7 HEMATOCRIT (BEAKER) (test tlwa=977) 33.1 % 34.1-44.9 MEAN CORPUSCULAR VOLUME (BEAKER) (test asut=381) 94.0 fL 79.4-94.8 MEAN CORPUSCULAR HEMOGLOBIN (BEAKER) (test 29.5 pg 25.6-32.2 zbps=397) MEAN CORPUSCULAR HEMOGLOBIN CONC (BEAKER) (test 31.4 GM/DL 32.2-35.5 odiz=670) RED CELL DISTRIBUTION WIDTH (BEAKER) (test 19.8 % 11.7-14.4 oavi=791) PLATELET COUNT (BEAKER) (test gslh=009) 240 K/CU MM 150-450 MEAN PLATELET VOLUME (BEAKER) (test uepk=129) 8.5 fL 9.4-12.3 NUCLEATED RED BLOOD CELLS (BEAKER) (test 0 /100 WBC 0-0 tgnd=683) NEUTROPHILS RELATIVE PERCENT (BEAKER) (test 43 % qnwy=064) LYMPHOCYTES RELATIVE PERCENT (BEAKER) (test 49 % myoe=628) MONOCYTES RELATIVE PERCENT (BEAKER) (test 7 % guks=100) EOSINOPHILS RELATIVE PERCENT (BEAKER) (test 1 % qjxa=666) BASOPHILS RELATIVE PERCENT (BEAKER) (test 0 % puuj=405) NEUTROPHILS ABSOLUTE COUNT (BEAKER) (test 2.34 K/ L 1.56-6.13 hanv=987) LYMPHOCYTES ABSOLUTE COUNT (BEAKER) (test 2.68 K/ L 1.18-3.74 gklm=182) MONOCYTES ABSOLUTE COUNT (BEAKER) (test 0.38 K/ L 0.24-0.36 oufz=392) EOSINOPHILS ABSOLUTE COUNT (BEAKER) (test 0.05 K/ L 0.04-0.36 lkme=623) BASOPHILS ABSOLUTE COUNT (BEAKER) (test 0.02 K/ L 0.01-0.08 cwgw=662) IMMATURE GRANULOCYTES-RELATIVE PERCENT (BEAKER) 0 % 0-1 (test cjtl=7233) [id number] 19:07:00 Test Item Value Reference Range Comments MAGNESIUM (BEAKER) (test rvsl=847) 1.9 mg/dL 1.6-2.6 BASIC METABOLIC [id number] 19:07:00 Test Item Value Reference Range Comments SODIUM (BEAKER) (test 137 meq/L 136-145 ltam=630) POTASSIUM (BEAKER) (test 3.8 meq/L 3.5-5.1 eana=656) CHLORIDE (BEAKER) (test 106 meq/L 98-107 modu=531) CO2 (BEAKER) (test 23 meq/L 22-29 alzz=609) BLOOD UREA NITROGEN 6 mg/dL 7-21 (BEAKER) (test mcwq=717) CREATININE (BEAKER) (test 0.64 mg/dL 0.57-1.25 mdtj=009) GLUCOSE RANDOM (BEAKER) 82 mg/dL 70-105 (test cael=157) CALCIUM (BEAKER) (test 8.5 mg/dL 8.4-10.2 fvvq=726) EGFR (BEAKER) (test 88 mL/min/1.73 sq m ESTIMATED GFR IS NOT mrdp=2049) ACCURATE CREATININE CLEARANCE IN PREDICTING GLOMERULAR FILTRATION RATE. ESTIMATED GFR IS NOT APPLICABLE FOR DIALYSIS PATIENTS. CBC (HEMOGRAM ONLY)2017-09-16 18:38:00 Test Item Value Reference Range Comments WHITE BLOOD CELL COUNT (BEAKER) (test rqeh=402) 6.5 K/ L 3.5-10.5 RED BLOOD CELL COUNT (BEAKER) (test demm=237) 3.61 M/ L 3.93-5.22 HEMOGLOBIN (BEAKER) (test iphv=961) 10.9 GM/DL 11.2-15.7 HEMATOCRIT (BEAKER) (test orig=036) 33.5 % 34.1-44.9 MEAN CORPUSCULAR VOLUME (BEAKER) (test pheu=586) 92.8 fL 79.4-94.8 MEAN CORPUSCULAR HEMOGLOBIN (BEAKER) (test 30.2 pg 25.6-32.2 esmd=269) MEAN CORPUSCULAR HEMOGLOBIN CONC (BEAKER) (test 32.5 GM/DL 32.2-35.5 zcov=659) RED CELL DISTRIBUTION WIDTH (BEAKER) (test 19.8 % 11.7-14.4 znit=373) PLATELET COUNT (BEAKER) (test jzmh=395) 239 K/CU MM 150-450 MEAN PLATELET VOLUME (BEAKER) (test tean=229) 8.7 fL 9.4-12.3 NUCLEATED RED BLOOD CELLS (BEAKER) (test 0 /100 WBC 0-0 ikgd=497) [id number] 06:56:00 Test Item Value Reference Range Comments PHOSPHORUS (BEAKER) (test vdwh=256) 2.7 mg/dL 2.3-4.7 [id number] 06:56:00 Test Item Value Reference Range Comments MAGNESIUM (BEAKER) (test jgkg=558) 1.9 mg/dL 1.6-2.6 BASIC METABOLIC [id number] 06:56:00 Test Item Value Reference Range Comments SODIUM (BEAKER) (test 139 meq/L 136-145 bgii=724) POTASSIUM (BEAKER) (test 4.1 meq/L 3.5-5.1 wghx=405) CHLORIDE (BEAKER) (test 107 meq/L 98-107 cnwn=468) CO2 (BEAKER) (test 26 meq/L 22-29 aipm=047) BLOOD UREA NITROGEN 11 mg/dL 7-21 (BEAKER) (test zjye=450) CREATININE (BEAKER) (test 0.73 mg/dL 0.57-1.25 szwp=175) GLUCOSE RANDOM (BEAKER) 107 mg/dL 70-105 (test mkha=329) CALCIUM (BEAKER) (test 8.5 mg/dL 8.4-10.2 xwph=255) EGFR (BEAKER) (test 76 mL/min/1.73 sq m ESTIMATED GFR IS NOT gitv=1454) ACCURATE CREATININE CLEARANCE IN PREDICTING GLOMERULAR FILTRATION RATE. ESTIMATED GFR IS NOT APPLICABLE FOR DIALYSIS PATIENTS. HEPATIC FUNCTION [id number] 06:56:00 Test Item Value Reference Range Comments TOTAL PROTEIN (BEAKER) (test qswf=320) 5.2 gm/dL 6.0-8.3 ALBUMIN (BEAKER) (test yplu=1731) 2.9 g/dL 3.5-5.0 BILIRUBIN TOTAL (BEAKER) (test esib=002) 0.8 mg/dL 0.2-1.2 BILIRUBIN DIRECT (BEAKER) (test lpyk=618) 0.4 mg/dL 0.1-0.5 ALKALINE PHOSPHATASE (BEAKER) (test oixt=636) 43 U/L 40-150 AST (SGOT) (BEAKER) (test ovls=923) 13 U/L 5-34 ALT (SGPT) (BEAKER) (test ghtd=019) 10 U/L 6-55 CALCIUM, [id number] 06:36:00 Test Item Value Reference Range Comments CALCIUM IONIZED (BEAKER) (test qeys=473) 1.05 mmol/L 1.12-1.27 PH, BLOOD (BEAKER) (test chfy=3577) 7.46 PROTHROMBIN [id number] 06:35:00 Test Item Value Reference Range Comments PROTIME (BEAKER) (test rtze=336) 14.2 seconds 11.7-14.7 INR (BEAKER) (test hoyh=682) 1.1 <=5.9 RECOMMENDED COUMADIN/WARFARIN INR THERAPY RANGESSTANDARD DOSE: 2.0 - 3.0 Includes: PROPHYLAXIS forvenous thrombosis, systemic embolization; TREATMENT for venous thrombosis and/or pulmonary embolus.HIGH RISK: Target INR is 2.5-3.5 for patients with mechanical heart valves.CBC W/PLT COUNT & AUTO [id number] 06:25:00 Test Item Value Reference Range Comments WHITE BLOOD CELL COUNT (BEAKER) (test fkak=228) 9.4 K/ L 3.5-10.5 RED BLOOD CELL COUNT (BEAKER) (test cmss=217) 3.48 M/ L 3.93-5.22 HEMOGLOBIN (BEAKER) (test xdte=834) 10.0 GM/DL 11.2-15.7 HEMATOCRIT (BEAKER) (test amya=897) 31.1 % 34.1-44.9 MEAN CORPUSCULAR VOLUME (BEAKER) (test aijt=058) 89.4 fL 79.4-94.8 MEAN CORPUSCULAR HEMOGLOBIN (BEAKER) (test 28.7 pg 25.6-32.2 zcxu=618) MEAN CORPUSCULAR HEMOGLOBIN CONC (BEAKER) (test 32.2 GM/DL 32.2-35.5 zuwe=894) RED CELL DISTRIBUTION WIDTH (BEAKER) (test 18.3 % 11.7-14.4 pakc=516) PLATELET COUNT (BEAKER) (test ejzo=462) 234 K/CU MM 150-450 MEAN PLATELET VOLUME (BEAKER) (test ntxf=241) 8.9 fL 9.4-12.3 NUCLEATED RED BLOOD CELLS (BEAKER) (test 0 /100 WBC 0-0 vsxk=103) NEUTROPHILS RELATIVE PERCENT (BEAKER) (test 70 % tneh=647) LYMPHOCYTES RELATIVE PERCENT (BEAKER) (test 24 % vslf=212) MONOCYTES RELATIVE PERCENT (BEAKER) (test 5 % ghyr=618) EOSINOPHILS RELATIVE PERCENT (BEAKER) (test 0 % lcqw=164) BASOPHILS RELATIVE PERCENT (BEAKER) (test 0 % kvqq=563) NEUTROPHILS ABSOLUTE COUNT (BEAKER) (test 6.54 K/ L 1.56-6.13 jgyo=126) LYMPHOCYTES ABSOLUTE COUNT (BEAKER) (test 2.30 K/ L 1.18-3.74 yqwp=024) MONOCYTES ABSOLUTE COUNT (BEAKER) (test 0.50 K/ L 0.24-0.36 zntb=445) EOSINOPHILS ABSOLUTE COUNT (BEAKER) (test 0.03 K/ L 0.04-0.36 fway=237) BASOPHILS ABSOLUTE COUNT (BEAKER) (test 0.02 K/ L 0.01-0.08 wkdb=362) IMMATURE GRANULOCYTES-RELATIVE PERCENT (BEAKER) 0 % 0-1 (test ayym=2148) TISSUE [id number] 14:52:00Surgical Pathology Report Case: [id number] Authorizing Provider: Ricardo Wilson MD Collected: 08/02/2017 1715 Ordering Location: 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)- NEGATIVE FOR HIGH GRADE DYSPLASIA OR CARCINOMA- PERIPHERAL MARGINS, NEGATIVE FOR ADENOMATOUS CHANGE Signing Pathologist Direct Phone Line: [phone] signed by Larry Cohn MD on 08/04/2017 at 2:52 [id number] polyp Rectal mass Received in formalin labeled [...] the diagnostic line.CBC W/PLT COUNT & AUTO [id number] 06:19:00 Test Item Value Reference Range Comments WHITE BLOOD CELL COUNT (BEAKER) (test pkrz=522) 15.6 K/ L 3.5-10.5 RED BLOOD CELL COUNT (BEAKER) (test inyr=399) 3.50 M/ L 3.93-5.22 HEMOGLOBIN (BEAKER) (test teeh=269) 9.9 GM/DL 11.2-15.7 HEMATOCRIT (BEAKER) (test ktji=304) 31.4 % 34.1-44.9 MEAN CORPUSCULAR VOLUME (BEAKER) (test mzep=478) 89.7 fL 79.4-94.8 MEAN CORPUSCULAR HEMOGLOBIN (BEAKER) (test 28.3 pg 25.6-32.2 hawb=997) MEAN CORPUSCULAR HEMOGLOBIN CONC (BEAKER) (test 31.5 GM/DL 32.2-35.5 uyfy=875) RED CELL DISTRIBUTION WIDTH (BEAKER) (test 18.0 % 11.7-14.4 cgfp=670) PLATELET COUNT (BEAKER) (test jfra=047) 223 K/CU MM 150-450 MEAN PLATELET VOLUME (BEAKER) (test nzqa=939) 8.7 fL 9.4-12.3 NUCLEATED RED BLOOD CELLS (BEAKER) (test 0 /100 WBC 0-0 caqu=867) NEUTROPHILS RELATIVE PERCENT (BEAKER) (test 81 % elaq=853) LYMPHOCYTES RELATIVE PERCENT (BEAKER) (test 15 % uklb=772) MONOCYTES RELATIVE PERCENT (BEAKER) (test 4 % xuwr=572) EOSINOPHILS RELATIVE PERCENT (BEAKER) (test 0 % ypgd=750) BASOPHILS RELATIVE PERCENT (BEAKER) (test 0 % jdzx=573) NEUTROPHILS ABSOLUTE COUNT (BEAKER) (test 12.56 K/ L 1.56-6.13 gork=081) LYMPHOCYTES ABSOLUTE COUNT (BEAKER) (test 2.36 K/ L 1.18-3.74 oqwy=886) MONOCYTES ABSOLUTE COUNT (BEAKER) (test 0.56 K/ L 0.24-0.36 wqoq=343) EOSINOPHILS ABSOLUTE COUNT (BEAKER) (test 0.03 K/ L 0.04-0.36 ptbb=784) BASOPHILS ABSOLUTE COUNT (BEAKER) (test 0.02 K/ L 0.01-0.08 rhrh=234) IMMATURE GRANULOCYTES-RELATIVE PERCENT (BEAKER) 0 % 0-1 (test lvug=1278) HEPATIC FUNCTION [id number] 06:15:00 Test Item Value Reference Range Comments TOTAL PROTEIN (BEAKER) (test pfmf=132) 4.9 gm/dL 6.0-8.3 ALBUMIN (BEAKER) (test etai=0181) 2.8 g/dL 3.5-5.0 BILIRUBIN TOTAL (BEAKER) (test dsur=936) 1.1 mg/dL 0.2-1.2 BILIRUBIN DIRECT (BEAKER) (test kuzb=534) 0.5 mg/dL 0.1-0.5 ALKALINE PHOSPHATASE (BEAKER) (test ganj=993) 42 U/L 40-150 AST (SGOT) (BEAKER) (test qagr=979) 15 U/L 5-34 ALT (SGPT) (BEAKER) (test mept=229) 12 U/L 6-55 BASIC METABOLIC [id number] 06:15:00 Test Item Value Reference Range Comments SODIUM (BEAKER) (test 139 meq/L 136-145 bmnk=047) POTASSIUM (BEAKER) (test 4.6 meq/L 3.5-5.1 jqys=850) CHLORIDE (BEAKER) (test 108 meq/L 98-107 elss=297) CO2 (BEAKER) (test 25 meq/L 22-29 mxyb=446) BLOOD UREA NITROGEN 13 mg/dL 7-21 (BEAKER) (test cjbq=883) CREATININE (BEAKER) (test 0.73 mg/dL 0.57-1.25 wqqc=247) GLUCOSE RANDOM (BEAKER) 115 mg/dL 70-105 (test bddi=992) CALCIUM (BEAKER) (test 8.5 mg/dL 8.4-10.2 wwtb=476) EGFR (BEAKER) (test 76 mL/min/1.73 sq m ESTIMATED GFR IS NOT odsj=0867) ACCURATE CREATININE CLEARANCE IN PREDICTING GLOMERULAR FILTRATION RATE. ESTIMATED GFR IS NOT APPLICABLE FOR DIALYSIS PATIENTS. PROTHROMBIN [id number] 05:59:00 Test Item Value Reference Range Comments PROTIME (BEAKER) (test uqor=011) 14.6 seconds 11.7-14.7 INR (BEAKER) (test wunu=955) 1.1 <=5.9 RECOMMENDED COUMADIN/WARFARIN INR THERAPY RANGESSTANDARD DOSE: 2.0 - 3.0 Includes: PROPHYLAXIS forvenous thrombosis, systemic embolization; TREATMENT for venous thrombosis and/or pulmonary embolus.HIGH RISK: Target INR is 2.5-3.5 for patients with mechanical heart valves.URINALYSIS W/ [id number] 14 :53:00 Test Item Value Reference Range Comments COLOR (BEAKER) (test prwc=388) Yellow CLARITY (BEAKER) (test mbpn=947) Clear SPECIFIC GRAVITY UA (BEAKER) (test dhau=250) 1.010 1.001-1.035 PH UA (BEAKER) (test qiot=588) 5.5 5.0-8.0 PROTEIN UA (BEAKER) (test outq=344) Negative Negative GLUCOSE UA (BEAKER) (test jfgl=482) Negative Negative KETONES UA (BEAKER) (test ferm=730) Trace Negative BILIRUBIN UA (BEAKER) (test xtlc=672) Negative Negative BLOOD UA (BEAKER) (test haic=848) Negative Negative NITRITE UA (BEAKER) (test xcha=286) Negative Negative LEUKOCYTE ESTERASE UA (BEAKER) (test cjas=088) Negative Negative UROBILINOGEN UA (BEAKER) (test gfdz=982) 0.2 mg/dL 0.2-1.0 RBC UA (BEAKER) (test xvta=638) 1 /HPF WBC UA (BEAKER) (test ygix=441) 3 /HPF MUCUS (BEAKER) (test kvtp=5602) Few SQUAMOUS EPITHELIAL (BEAKER) (test zewl=373) < /HPF HYALINE CASTS (BEAKER) (test hyqd=172) 2 /LPF SOURCE(BEAKER) (test yztu=8553) HEPATIC FUNCTION [id number] 06:31:00 Test Item Value Reference Range Comments TOTAL PROTEIN (BEAKER) (test ddbr=261) 5.2 gm/dL 6.0-8.3 ALBUMIN (BEAKER) (test dowz=7769) 3.1 g/dL 3.5-5.0 BILIRUBIN TOTAL (BEAKER) (test jvis=324) 1.1 mg/dL 0.2-1.2 BILIRUBIN DIRECT (BEAKER) (test dbvl=003) 0.5 mg/dL 0.1-0.5 ALKALINE PHOSPHATASE (BEAKER) (test qljr=315) 47 U/L 40-150 AST (SGOT) (BEAKER) (test qsvi=799) 20 U/L 5-34 ALT (SGPT) (BEAKER) (test jncn=105) 15 U/L 6-55 BASIC METABOLIC [id number] 06:31:00 Test Item Value Reference Range Comments SODIUM (BEAKER) (test 139 meq/L 136-145 muaa=077) POTASSIUM (BEAKER) (test 2.7 meq/L 3.5-5.1 gjvy=636) CHLORIDE (BEAKER) (test 106 meq/L 98-107 irdv=601) CO2 (BEAKER) (test 24 meq/L 22-29 fodn=034) BLOOD UREA NITROGEN 7 mg/dL 7-21 (BEAKER) (test dnyz=683) CREATININE (BEAKER) (test 0.61 mg/dL 0.57-1.25 grks=383) GLUCOSE RANDOM (BEAKER) 88 mg/dL 70-105 (test qonv=145) CALCIUM (BEAKER) (test 8.4 mg/dL 8.4-10.2 kpzf=860) EGFR (BEAKER) (test 93 mL/min/1.73 sq m ESTIMATED GFR IS NOT sqxf=3105) ACCURATE CREATININE CLEARANCE IN PREDICTING GLOMERULAR FILTRATION RATE. ESTIMATED GFR IS NOT APPLICABLE FOR DIALYSIS PATIENTS. BASIC METABOLIC [id number] 06:30:00 Test Item Value Reference Range Comments SODIUM (BEAKER) (test 136 meq/L 136-145 wxge=140) POTASSIUM (BEAKER) (test 3.0 meq/L 3.5-5.1 Specimen slightly xokb=731) hemolyzed CHLORIDE (BEAKER) (test 106 meq/L 98-107 lght=585) CO2 (BEAKER) (test 20 meq/L 22-29 tibz=683) BLOOD UREA NITROGEN 7 mg/dL 7-21 (BEAKER) (test spyo=525) CREATININE (BEAKER) (test 0.61 mg/dL 0.57-1.25 Specimen slightly tnfg=449) hemolyzed GLUCOSE RANDOM (BEAKER) 81 mg/dL 70-105 (test osoq=173) CALCIUM (BEAKER) (test 8.2 mg/dL 8.4-10.2 zjjj=443) EGFR (BEAKER) (test 93 mL/min/1.73 sq m ESTIMATED GFR IS NOT iicl=0649) ACCURATE CREATININE CLEARANCE IN PREDICTING GLOMERULAR FILTRATION RATE. ESTIMATED GFR IS NOT APPLICABLE FOR DIALYSIS PATIENTS. CBC W/PLT COUNT & AUTO [id number] 06:25:00 Test Item Value Reference Range Comments WHITE BLOOD CELL COUNT (BEAKER) (test vbbj=745) 14.6 K/ L 3.5-10.5 RED BLOOD CELL COUNT (BEAKER) (test ubco=005) 3.75 M/ L 3.93-5.22 HEMOGLOBIN (BEAKER) (test zasy=938) 10.5 GM/DL 11.2-15.7 HEMATOCRIT (BEAKER) (test urek=131) 33.1 % 34.1-44.9 MEAN CORPUSCULAR VOLUME (BEAKER) (test vtpf=264) 88.3 fL 79.4-94.8 MEAN CORPUSCULAR HEMOGLOBIN (BEAKER) (test 28.0 pg 25.6-32.2 keuv=745) MEAN CORPUSCULAR HEMOGLOBIN CONC (BEAKER) (test 31.7 GM/DL 32.2-35.5 bjhw=345) RED CELL DISTRIBUTION WIDTH (BEAKER) (test 17.5 % 11.7-14.4 jlar=537) PLATELET COUNT (BEAKER) (test bvpg=915) 246 K/CU MM 150-450 MEAN PLATELET VOLUME (BEAKER) (test fvwp=924) 8.9 fL 9.4-12.3 NUCLEATED RED BLOOD CELLS (BEAKER) (test 0 /100 WBC 0-0 joav=613) NEUTROPHILS RELATIVE PERCENT (BEAKER) (test 88 % dmht=421) LYMPHOCYTES RELATIVE PERCENT (BEAKER) (test 5 % gsyv=751) MONOCYTES RELATIVE PERCENT (BEAKER) (test 6 % zxyc=994) EOSINOPHILS RELATIVE PERCENT (BEAKER) (test 0 % rnhd=508) BASOPHILS RELATIVE PERCENT (BEAKER) (test 0 % sfhx=293) NEUTROPHILS ABSOLUTE COUNT (BEAKER) (test 12.85 K/ L 1.56-6.13 zbpv=269) LYMPHOCYTES ABSOLUTE COUNT (BEAKER) (test 0.71 K/ L 1.18-3.74 xify=200) MONOCYTES ABSOLUTE COUNT (BEAKER) (test 0.94 K/ L 0.24-0.36 whml=929) EOSINOPHILS ABSOLUTE COUNT (BEAKER) (test 0.00 K/ L 0.04-0.36 mhyb=423) BASOPHILS ABSOLUTE COUNT (BEAKER) (test 0.02 K/ L 0.01-0.08 oypc=166) IMMATURE GRANULOCYTES-RELATIVE PERCENT (BEAKER) 1 % 0-1 (test fnfk=4108) PROTHROMBIN [id number] 06:21:00 Test Item Value Reference Range Comments PROTIME (BEAKER) (test meyt=849) 13.5 seconds 11.7-14.7 INR (BEAKER) (test hzom=335) 1.0 <=5.9 RECOMMENDED COUMADIN/WARFARIN INR THERAPY RANGESSTANDARD DOSE: 2.0 - 3.0 Includes: PROPHYLAXIS forvenous thrombosis, systemic embolization; TREATMENT for venous thrombosis and/or pulmonary embolus.HIGH RISK: Target INR is 2.5-3.5 for patients with mechanical heart valves.
== END 2019-01-14 10:45 | disposition home health service (06) | DRG 759 ==
LOC: ER 15:26 → ERHOLD 21:02 → 4TH 23:06
PROVIDERS: ADMIT Internal Medicine; ATTEND Internal Medicine
PROC: 0U9LXZZ Drainage of Vestibular Gland, External Approach (ICD-10-PCS; principal; 2019-01-12 12:30)
DX: N75.1 Abscess of Bartholin's gland (principal); J44.9 Chronic obstructive pulmonary disease, unspecified; I10 Essential (primary) hypertension; D64.9 Anemia, unspecified; R53.1 Weakness; I89.0 Lymphedema, not elsewhere classified; E03.9 Hypothyroidism, unspecified; M06.9 Rheumatoid arthritis, unspecified; Z86.718 Personal history of other venous thrombosis and embolism; Z86.711 Personal history of pulmonary embolism; Z79.52 Long term (current) use of systemic steroids; Z88.2 Allergy status to sulfonamides
CPT/HCPCS: 36415; 70450; 71045; 74177; 80048; 80076; 80202; 81003; 83735; 83880; 84484; 85025; 85610; 87077; 87086; 87088; 87186; 93005; 96361; 96365; 96375; 99285; J1170; J1650; J2270; J2405; J2543; J2704; J2920; J3010; J3370; J7030; J7040; J7120; J7512; Q9967

== ENCOUNTER 2019-02-07 16:49 | Emergency (ER) | payer OTHER ==
--- OUTSIDE RECORDS SUMMARY | 2019-02-07 16:52 | XMS REPORT ---
:1930 Author Organization [facility] Address [address] [place] [address] Dr. Marsh [address] [place] [id number] Care Team Providers Name Role Phone KIM MCKEON ZARI Unavailable Unavailable RICARDO WILSON Unavailable Unavailable Problems This patient has no known problems. Allergies, Adverse Reactions, Alerts This patient has no known allergies or adverse reactions. Medications This patient has no known medications. Results Test Description Test Time Test Comments Text Results Atomic Results Result Comments TISSUE EXAM 2017-09-20 16:22:00 Surgical Pathology Report Case: [id number] Authorizing Provider: Misha Calloway MD Collected: 09/16/2017 1538 Ordering Location: [address] Received: 09/19/2017 0820 Service Pathologist: Larry Cohn MD Specimen: Polyp, Colon - Rectosigmoid, POLYP TAKEN BY HOT SNARE RECTO-SIGMOID, POLYPECTOMY- TUBULAR ADENOMA- CAUTERIZED EDGE, NEGATIVE FOR ADENOMATOUS CHANGE Signing Pathologist Direct Phone Line: [phone] signed by Larry Cohn MD on 09/20/2017 at 4:22 [id number] bleedRectosigmoid colon polypThe specimen is received in [...] Value Reference Range Comments MAGNESIUM (BEAKER) (test lfko=810) 1.9 mg/dL 1.6-2.6 BASIC METABOLIC [id number] 07:32:00 Test Item Value Reference Range Comments SODIUM (BEAKER) (test 138 meq/L 136-145 uzxp=527) POTASSIUM (BEAKER) (test 4.2 meq/L 3.5-5.1 zuxb=226) CHLORIDE (BEAKER) (test 106 meq/L 98-107 brhx=878) CO2 (BEAKER) (test 25 meq/L 22-29 knpd=435) BLOOD UREA NITROGEN 6 mg/dL 7-21 (BEAKER) (test xmvi=115) CREATININE (BEAKER) (test 0.66 mg/dL 0.57-1.25 bfun=611) GLUCOSE RANDOM (BEAKER) 76 mg/dL 70-105 (test bauk=267) CALCIUM (BEAKER) (test 8.4 mg/dL 8.4-10.2 cbnk=741) EGFR (BEAKER) (test 85 mL/min/1.73 sq m ESTIMATED GFR IS NOT ebnh=9364) ACCURATE CREATININE CLEARANCE IN PREDICTING GLOMERULAR FILTRATION RATE. ESTIMATED GFR IS NOT APPLICABLE FOR DIALYSIS PATIENTS. PT/[id number] 06:42:00 Test Item Value Reference Range Comments PROTIME (BEAKER) (test xdya=536) 20.8 seconds 11.7-14.7 INR (BEAKER) (test gylo=309) 1.8 <=5.9 PARTIAL THROMBOPLASTIN TIME (BEAKER) (test 36.1 seconds 22.5-36.0 edli=611) RECOMMENDED COUMADIN/WARFARIN INR THERAPY RANGESSTANDARD DOSE: 2.0 - 3.0 Includes: PROPHYLAXIS forvenous thrombosis, systemic embolization; TREATMENT for venous thrombosis and/or pulmonary embolus.HIGH RISK: Target INR is 2.5-3.5 for patients with mechanical heart valves.CBC W/PLT COUNT & AUTO [id number] 06:41:00 Test Item Value Reference Range Comments WHITE BLOOD CELL COUNT (BEAKER) (test ohqj=757) 5.5 K/ L 3.5-10.5 RED BLOOD CELL COUNT (BEAKER) (test jxnw=627) 3.52 M/ L 3.93-5.22 HEMOGLOBIN (BEAKER) (test jucg=155) 10.4 GM/DL 11.2-15.7 HEMATOCRIT (BEAKER) (test ceqj=829) 33.1 % 34.1-44.9 MEAN CORPUSCULAR VOLUME (BEAKER) (test mxhg=466) 94.0 fL 79.4-94.8 MEAN CORPUSCULAR HEMOGLOBIN (BEAKER) (test 29.5 pg 25.6-32.2 fjwm=835) MEAN CORPUSCULAR HEMOGLOBIN CONC (BEAKER) (test 31.4 GM/DL 32.2-35.5 asie=400) RED CELL DISTRIBUTION WIDTH (BEAKER) (test 19.8 % 11.7-14.4 iyja=643) PLATELET COUNT (BEAKER) (test mlmj=302) 240 K/CU MM 150-450 MEAN PLATELET VOLUME (BEAKER) (test ldya=138) 8.5 fL 9.4-12.3 NUCLEATED RED BLOOD CELLS (BEAKER) (test 0 /100 WBC 0-0 vgcp=221) NEUTROPHILS RELATIVE PERCENT (BEAKER) (test 43 % jwfa=206) LYMPHOCYTES RELATIVE PERCENT (BEAKER) (test 49 % iqid=983) MONOCYTES RELATIVE PERCENT (BEAKER) (test 7 % bvlh=051) EOSINOPHILS RELATIVE PERCENT (BEAKER) (test 1 % xbbw=923) BASOPHILS RELATIVE PERCENT (BEAKER) (test 0 % haei=813) NEUTROPHILS ABSOLUTE COUNT (BEAKER) (test 2.34 K/ L 1.56-6.13 uvff=397) LYMPHOCYTES ABSOLUTE COUNT (BEAKER) (test 2.68 K/ L 1.18-3.74 aolq=163) MONOCYTES ABSOLUTE COUNT (BEAKER) (test 0.38 K/ L 0.24-0.36 tjrs=657) EOSINOPHILS ABSOLUTE COUNT (BEAKER) (test 0.05 K/ L 0.04-0.36 sqwp=497) BASOPHILS ABSOLUTE COUNT (BEAKER) (test 0.02 K/ L 0.01-0.08 milt=140) IMMATURE GRANULOCYTES-RELATIVE PERCENT (BEAKER) 0 % 0-1 (test xrkc=4117) [id number] 19:07:00 Test Item Value Reference Range Comments MAGNESIUM (BEAKER) (test gudv=266) 1.9 mg/dL 1.6-2.6 BASIC METABOLIC [id number] 19:07:00 Test Item Value Reference Range Comments SODIUM (BEAKER) (test 137 meq/L 136-145 olsl=547) POTASSIUM (BEAKER) (test 3.8 meq/L 3.5-5.1 dhnh=273) CHLORIDE (BEAKER) (test 106 meq/L 98-107 akcd=594) CO2 (BEAKER) (test 23 meq/L 22-29 mgoj=435) BLOOD UREA NITROGEN 6 mg/dL 7-21 (BEAKER) (test xovo=259) CREATININE (BEAKER) (test 0.64 mg/dL 0.57-1.25 uglk=474) GLUCOSE RANDOM (BEAKER) 82 mg/dL 70-105 (test bmhq=834) CALCIUM (BEAKER) (test 8.5 mg/dL 8.4-10.2 aizz=296) EGFR (BEAKER) (test 88 mL/min/1.73 sq m ESTIMATED GFR IS NOT tvwv=1296) ACCURATE CREATININE CLEARANCE IN PREDICTING GLOMERULAR FILTRATION RATE. ESTIMATED GFR IS NOT APPLICABLE FOR DIALYSIS PATIENTS. CBC (HEMOGRAM ONLY)2017-09-16 18:38:00 Test Item Value Reference Range Comments WHITE BLOOD CELL COUNT (BEAKER) (test qtvr=497) 6.5 K/ L 3.5-10.5 RED BLOOD CELL COUNT (BEAKER) (test nckq=183) 3.61 M/ L 3.93-5.22 HEMOGLOBIN (BEAKER) (test wdhm=451) 10.9 GM/DL 11.2-15.7 HEMATOCRIT (BEAKER) (test qufq=048) 33.5 % 34.1-44.9 MEAN CORPUSCULAR VOLUME (BEAKER) (test eroe=531) 92.8 fL 79.4-94.8 MEAN CORPUSCULAR HEMOGLOBIN (BEAKER) (test 30.2 pg 25.6-32.2 ccsl=332) MEAN CORPUSCULAR HEMOGLOBIN CONC (BEAKER) (test 32.5 GM/DL 32.2-35.5 fxrl=046) RED CELL DISTRIBUTION WIDTH (BEAKER) (test 19.8 % 11.7-14.4 luel=768) PLATELET COUNT (BEAKER) (test jhqj=289) 239 K/CU MM 150-450 MEAN PLATELET VOLUME (BEAKER) (test zqls=212) 8.7 fL 9.4-12.3 NUCLEATED RED BLOOD CELLS (BEAKER) (test 0 /100 WBC 0-0 tbwa=607) [id number] 06:56:00 Test Item Value Reference Range Comments PHOSPHORUS (BEAKER) (test lwvb=481) 2.7 mg/dL 2.3-4.7 [id number] 06:56:00 Test Item Value Reference Range Comments MAGNESIUM (BEAKER) (test duvr=180) 1.9 mg/dL 1.6-2.6 BASIC METABOLIC [id number] 06:56:00 Test Item Value Reference Range Comments SODIUM (BEAKER) (test 139 meq/L 136-145 uuel=215) POTASSIUM (BEAKER) (test 4.1 meq/L 3.5-5.1 flyf=734) CHLORIDE (BEAKER) (test 107 meq/L 98-107 uzmq=177) CO2 (BEAKER) (test 26 meq/L 22-29 owmc=188) BLOOD UREA NITROGEN 11 mg/dL 7-21 (BEAKER) (test zitb=452) CREATININE (BEAKER) (test 0.73 mg/dL 0.57-1.25 ajbx=041) GLUCOSE RANDOM (BEAKER) 107 mg/dL 70-105 (test icnq=856) CALCIUM (BEAKER) (test 8.5 mg/dL 8.4-10.2 ddsy=478) EGFR (BEAKER) (test 76 mL/min/1.73 sq m ESTIMATED GFR IS NOT msaa=7802) ACCURATE CREATININE CLEARANCE IN PREDICTING GLOMERULAR FILTRATION RATE. ESTIMATED GFR IS NOT APPLICABLE FOR DIALYSIS PATIENTS. HEPATIC FUNCTION [id number] 06:56:00 Test Item Value Reference Range Comments TOTAL PROTEIN (BEAKER) (test nqsx=645) 5.2 gm/dL 6.0-8.3 ALBUMIN (BEAKER) (test kwsf=9330) 2.9 g/dL 3.5-5.0 BILIRUBIN TOTAL (BEAKER) (test ylgz=172) 0.8 mg/dL 0.2-1.2 BILIRUBIN DIRECT (BEAKER) (test txdf=078) 0.4 mg/dL 0.1-0.5 ALKALINE PHOSPHATASE (BEAKER) (test lgxy=847) 43 U/L 40-150 AST (SGOT) (BEAKER) (test zyfp=973) 13 U/L 5-34 ALT (SGPT) (BEAKER) (test lnkp=468) 10 U/L 6-55 CALCIUM, [id number] 06:36:00 Test Item Value Reference Range Comments CALCIUM IONIZED (BEAKER) (test mwxx=280) 1.05 mmol/L 1.12-1.27 PH, BLOOD (BEAKER) (test izdl=7631) 7.46 PROTHROMBIN [id number] 06:35:00 Test Item Value Reference Range Comments PROTIME (BEAKER) (test vcqe=194) 14.2 seconds 11.7-14.7 INR (BEAKER) (test myds=758) 1.1 <=5.9 RECOMMENDED COUMADIN/WARFARIN INR THERAPY RANGESSTANDARD DOSE: 2.0 - 3.0 Includes: PROPHYLAXIS forvenous thrombosis, systemic embolization; TREATMENT for venous thrombosis and/or pulmonary embolus.HIGH RISK: Target INR is 2.5-3.5 for patients with mechanical heart valves.CBC W/PLT COUNT & AUTO [id number] 06:25:00 Test Item Value Reference Range Comments WHITE BLOOD CELL COUNT (BEAKER) (test gtps=554) 9.4 K/ L 3.5-10.5 RED BLOOD CELL COUNT (BEAKER) (test tjlp=208) 3.48 M/ L 3.93-5.22 HEMOGLOBIN (BEAKER) (test bgdt=251) 10.0 GM/DL 11.2-15.7 HEMATOCRIT (BEAKER) (test mrhy=099) 31.1 % 34.1-44.9 MEAN CORPUSCULAR VOLUME (BEAKER) (test lbiq=412) 89.4 fL 79.4-94.8 MEAN CORPUSCULAR HEMOGLOBIN (BEAKER) (test 28.7 pg 25.6-32.2 pgih=681) MEAN CORPUSCULAR HEMOGLOBIN CONC (BEAKER) (test 32.2 GM/DL 32.2-35.5 mbgg=857) RED CELL DISTRIBUTION WIDTH (BEAKER) (test 18.3 % 11.7-14.4 kfrb=193) PLATELET COUNT (BEAKER) (test vywx=799) 234 K/CU MM 150-450 MEAN PLATELET VOLUME (BEAKER) (test zsga=348) 8.9 fL 9.4-12.3 NUCLEATED RED BLOOD CELLS (BEAKER) (test 0 /100 WBC 0-0 ttsh=836) NEUTROPHILS RELATIVE PERCENT (BEAKER) (test 70 % seky=509) LYMPHOCYTES RELATIVE PERCENT (BEAKER) (test 24 % rkcw=364) MONOCYTES RELATIVE PERCENT (BEAKER) (test 5 % vhki=394) EOSINOPHILS RELATIVE PERCENT (BEAKER) (test 0 % qiia=671) BASOPHILS RELATIVE PERCENT (BEAKER) (test 0 % eztk=063) NEUTROPHILS ABSOLUTE COUNT (BEAKER) (test 6.54 K/ L 1.56-6.13 rglo=527) LYMPHOCYTES ABSOLUTE COUNT (BEAKER) (test 2.30 K/ L 1.18-3.74 ewri=812) MONOCYTES ABSOLUTE COUNT (BEAKER) (test 0.50 K/ L 0.24-0.36 anqs=628) EOSINOPHILS ABSOLUTE COUNT (BEAKER) (test 0.03 K/ L 0.04-0.36 zsvl=073) BASOPHILS ABSOLUTE COUNT (BEAKER) (test 0.02 K/ L 0.01-0.08 zsoe=983) IMMATURE GRANULOCYTES-RELATIVE PERCENT (BEAKER) 0 % 0-1 (test vsyh=4915) TISSUE [id number] 14:52:00Surgical Pathology Report Case: [id number] Authorizing Provider: Ricardo Wilson MD Collected: 08/02/2017 1715 Ordering Location: [facility] Endoscopy Received: 08/03/2017 0837 Services Pathologist: Larry Cohn MD Specimen: Rectal, MASS- TAKEN BY ESD, ON WAX, EVALUATE MARGINS RECTAL, 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)- NEGATIVE FOR HIGH GRADE DYSPLASIA OR CARCINOMA- PERIPHERAL MARGINS, NEGATIVE FOR ADENOMATOUS CHANGE Signing Pathologist Direct Phone Line: [phone] signed by Larry Cohn MD on 08/04/2017 at 2:52 [id number] polyp Rectal mass Received in formalin labeled [...] the diagnostic line.CBC W/PLT COUNT & AUTO [id number] 06:19:00 Test Item Value Reference Range Comments WHITE BLOOD CELL COUNT (BEAKER) (test ndzt=480) 15.6 K/ L 3.5-10.5 RED BLOOD CELL COUNT (BEAKER) (test qewx=642) 3.50 M/ L 3.93-5.22 HEMOGLOBIN (BEAKER) (test nuum=526) 9.9 GM/DL 11.2-15.7 HEMATOCRIT (BEAKER) (test azhq=391) 31.4 % 34.1-44.9 MEAN CORPUSCULAR VOLUME (BEAKER) (test kxsz=992) 89.7 fL 79.4-94.8 MEAN CORPUSCULAR HEMOGLOBIN (BEAKER) (test 28.3 pg 25.6-32.2 jluc=646) MEAN CORPUSCULAR HEMOGLOBIN CONC (BEAKER) (test 31.5 GM/DL 32.2-35.5 hylg=465) RED CELL DISTRIBUTION WIDTH (BEAKER) (test 18.0 % 11.7-14.4 ylef=685) PLATELET COUNT (BEAKER) (test efge=945) 223 K/CU MM 150-450 MEAN PLATELET VOLUME (BEAKER) (test dvfg=225) 8.7 fL 9.4-12.3 NUCLEATED RED BLOOD CELLS (BEAKER) (test 0 /100 WBC 0-0 losj=693) NEUTROPHILS RELATIVE PERCENT (BEAKER) (test 81 % thsu=405) LYMPHOCYTES RELATIVE PERCENT (BEAKER) (test 15 % wfpr=540) MONOCYTES RELATIVE PERCENT (BEAKER) (test 4 % ofpv=787) EOSINOPHILS RELATIVE PERCENT (BEAKER) (test 0 % kckc=389) BASOPHILS RELATIVE PERCENT (BEAKER) (test 0 % uxcv=455) NEUTROPHILS ABSOLUTE COUNT (BEAKER) (test 12.56 K/ L 1.56-6.13 eucu=422) LYMPHOCYTES ABSOLUTE COUNT (BEAKER) (test 2.36 K/ L 1.18-3.74 ymge=686) MONOCYTES ABSOLUTE COUNT (BEAKER) (test 0.56 K/ L 0.24-0.36 lkpw=812) EOSINOPHILS ABSOLUTE COUNT (BEAKER) (test 0.03 K/ L 0.04-0.36 mgeu=013) BASOPHILS ABSOLUTE COUNT (BEAKER) (test 0.02 K/ L 0.01-0.08 jhpw=657) IMMATURE GRANULOCYTES-RELATIVE PERCENT (BEAKER) 0 % 0-1 (test hcef=0830) HEPATIC FUNCTION [id number] 06:15:00 Test Item Value Reference Range Comments TOTAL PROTEIN (BEAKER) (test ybox=694) 4.9 gm/dL 6.0-8.3 ALBUMIN (BEAKER) (test eqfq=6154) 2.8 g/dL 3.5-5.0 BILIRUBIN TOTAL (BEAKER) (test orxe=282) 1.1 mg/dL 0.2-1.2 BILIRUBIN DIRECT (BEAKER) (test gega=735) 0.5 mg/dL 0.1-0.5 ALKALINE PHOSPHATASE (BEAKER) (test qeel=486) 42 U/L 40-150 AST (SGOT) (BEAKER) (test thrk=430) 15 U/L 5-34 ALT (SGPT) (BEAKER) (test sqot=151) 12 U/L 6-55 BASIC METABOLIC [id number] 06:15:00 Test Item Value Reference Range Comments SODIUM (BEAKER) (test 139 meq/L 136-145 badu=883) POTASSIUM (BEAKER) (test 4.6 meq/L 3.5-5.1 wzhj=827) CHLORIDE (BEAKER) (test 108 meq/L 98-107 kpfu=814) CO2 (BEAKER) (test 25 meq/L 22-29 nodu=974) BLOOD UREA NITROGEN 13 mg/dL 7-21 (BEAKER) (test vhzp=489) CREATININE (BEAKER) (test 0.73 mg/dL 0.57-1.25 cmmt=688) GLUCOSE RANDOM (BEAKER) 115 mg/dL 70-105 (test yawp=003) CALCIUM (BEAKER) (test 8.5 mg/dL 8.4-10.2 zpti=940) EGFR (BEAKER) (test 76 mL/min/1.73 sq m ESTIMATED GFR IS NOT kmtc=9681) ACCURATE CREATININE CLEARANCE IN PREDICTING GLOMERULAR FILTRATION RATE. ESTIMATED GFR IS NOT APPLICABLE FOR DIALYSIS PATIENTS. PROTHROMBIN [id number] 05:59:00 Test Item Value Reference Range Comments PROTIME (BEAKER) (test jhol=293) 14.6 seconds 11.7-14.7 INR (BEAKER) (test mhwl=743) 1.1 <=5.9 RECOMMENDED COUMADIN/WARFARIN INR THERAPY RANGESSTANDARD DOSE: 2.0 - 3.0 Includes: PROPHYLAXIS forvenous thrombosis, systemic embolization; TREATMENT for venous thrombosis and/or pulmonary embolus.HIGH RISK: Target INR is 2.5-3.5 for patients with mechanical heart valves.URINALYSIS W/ [id number] 14 :53:00 Test Item Value Reference Range Comments COLOR (BEAKER) (test fswn=055) Yellow CLARITY (BEAKER) (test vxrh=758) Clear SPECIFIC GRAVITY UA (BEAKER) (test ragd=684) 1.010 1.001-1.035 PH UA (BEAKER) (test imjw=471) 5.5 5.0-8.0 PROTEIN UA (BEAKER) (test etfc=407) Negative Negative GLUCOSE UA (BEAKER) (test zkqt=107) Negative Negative KETONES UA (BEAKER) (test jtno=949) Trace Negative BILIRUBIN UA (BEAKER) (test xtml=095) Negative Negative BLOOD UA (BEAKER) (test pwjn=259) Negative Negative NITRITE UA (BEAKER) (test wfnh=888) Negative Negative LEUKOCYTE ESTERASE UA (BEAKER) (test rosm=814) Negative Negative UROBILINOGEN UA (BEAKER) (test dtmd=048) 0.2 mg/dL 0.2-1.0 RBC UA (BEAKER) (test iygm=460) 1 /HPF WBC UA (BEAKER) (test flng=413) 3 /HPF MUCUS (BEAKER) (test bjmf=5446) Few SQUAMOUS EPITHELIAL (BEAKER) (test ulgz=640) < /HPF HYALINE CASTS (BEAKER) (test rbwh=232) 2 /LPF SOURCE(BEAKER) (test utmn=9537) HEPATIC FUNCTION [id number] 06:31:00 Test Item Value Reference Range Comments TOTAL PROTEIN (BEAKER) (test cefv=308) 5.2 gm/dL 6.0-8.3 ALBUMIN (BEAKER) (test crqn=6685) 3.1 g/dL 3.5-5.0 BILIRUBIN TOTAL (BEAKER) (test ihkw=605) 1.1 mg/dL 0.2-1.2 BILIRUBIN DIRECT (BEAKER) (test gquw=406) 0.5 mg/dL 0.1-0.5 ALKALINE PHOSPHATASE (BEAKER) (test clzk=093) 47 U/L 40-150 AST (SGOT) (BEAKER) (test rmhk=345) 20 U/L 5-34 ALT (SGPT) (BEAKER) (test ywbi=852) 15 U/L 6-55 BASIC METABOLIC [id number] 06:31:00 Test Item Value Reference Range Comments SODIUM (BEAKER) (test 139 meq/L 136-145 hyzd=068) POTASSIUM (BEAKER) (test 2.7 meq/L 3.5-5.1 hawj=486) CHLORIDE (BEAKER) (test 106 meq/L 98-107 gtom=841) CO2 (BEAKER) (test 24 meq/L 22-29 bcpm=856) BLOOD UREA NITROGEN 7 mg/dL 7-21 (BEAKER) (test izah=074) CREATININE (BEAKER) (test 0.61 mg/dL 0.57-1.25 rsam=494) GLUCOSE RANDOM (BEAKER) 88 mg/dL 70-105 (test ivsf=166) CALCIUM (BEAKER) (test 8.4 mg/dL 8.4-10.2 qbvq=720) EGFR (BEAKER) (test 93 mL/min/1.73 sq m ESTIMATED GFR IS NOT grfd=8081) ACCURATE CREATININE CLEARANCE IN PREDICTING GLOMERULAR FILTRATION RATE. ESTIMATED GFR IS NOT APPLICABLE FOR DIALYSIS PATIENTS. BASIC METABOLIC [id number] 06:30:00 Test Item Value Reference Range Comments SODIUM (BEAKER) (test 136 meq/L 136-145 cope=310) POTASSIUM (BEAKER) (test 3.0 meq/L 3.5-5.1 Specimen slightly kgup=326) hemolyzed CHLORIDE (BEAKER) (test 106 meq/L 98-107 lsxu=676) CO2 (BEAKER) (test 20 meq/L 22-29 uizb=049) BLOOD UREA NITROGEN 7 mg/dL 7-21 (BEAKER) (test ktth=163) CREATININE (BEAKER) (test 0.61 mg/dL 0.57-1.25 Specimen slightly waka=352) hemolyzed GLUCOSE RANDOM (BEAKER) 81 mg/dL 70-105 (test wddp=123) CALCIUM (BEAKER) (test 8.2 mg/dL 8.4-10.2 wkjr=447) EGFR (BEAKER) (test 93 mL/min/1.73 sq m ESTIMATED GFR IS NOT kqzd=1220) ACCURATE CREATININE CLEARANCE IN PREDICTING GLOMERULAR FILTRATION RATE. ESTIMATED GFR IS NOT APPLICABLE FOR DIALYSIS PATIENTS. CBC W/PLT COUNT & AUTO [id number] 06:25:00 Test Item Value Reference Range Comments WHITE BLOOD CELL COUNT (BEAKER) (test ziso=881) 14.6 K/ L 3.5-10.5 RED BLOOD CELL COUNT (BEAKER) (test guhm=419) 3.75 M/ L 3.93-5.22 HEMOGLOBIN (BEAKER) (test bgvb=729) 10.5 GM/DL 11.2-15.7 HEMATOCRIT (BEAKER) (test paek=109) 33.1 % 34.1-44.9 MEAN CORPUSCULAR VOLUME (BEAKER) (test trmm=349) 88.3 fL 79.4-94.8 MEAN CORPUSCULAR HEMOGLOBIN (BEAKER) (test 28.0 pg 25.6-32.2 ftcw=992) MEAN CORPUSCULAR HEMOGLOBIN CONC (BEAKER) (test 31.7 GM/DL 32.2-35.5 cmle=694) RED CELL DISTRIBUTION WIDTH (BEAKER) (test 17.5 % 11.7-14.4 nuxx=628) PLATELET COUNT (BEAKER) (test nmmr=154) 246 K/CU MM 150-450 MEAN PLATELET VOLUME (BEAKER) (test trmt=968) 8.9 fL 9.4-12.3 NUCLEATED RED BLOOD CELLS (BEAKER) (test 0 /100 WBC 0-0 whyw=217) NEUTROPHILS RELATIVE PERCENT (BEAKER) (test 88 % yzvi=574) LYMPHOCYTES RELATIVE PERCENT (BEAKER) (test 5 % zipk=338) MONOCYTES RELATIVE PERCENT (BEAKER) (test 6 % urav=719) EOSINOPHILS RELATIVE PERCENT (BEAKER) (test 0 % zhwd=543) BASOPHILS RELATIVE PERCENT (BEAKER) (test 0 % pato=084) NEUTROPHILS ABSOLUTE COUNT (BEAKER) (test 12.85 K/ L 1.56-6.13 wzcp=893) LYMPHOCYTES ABSOLUTE COUNT (BEAKER) (test 0.71 K/ L 1.18-3.74 vjhr=403) MONOCYTES ABSOLUTE COUNT (BEAKER) (test 0.94 K/ L 0.24-0.36 zzck=679) EOSINOPHILS ABSOLUTE COUNT (BEAKER) (test 0.00 K/ L 0.04-0.36 valw=888) BASOPHILS ABSOLUTE COUNT (BEAKER) (test 0.02 K/ L 0.01-0.08 xtxh=562) IMMATURE GRANULOCYTES-RELATIVE PERCENT (BEAKER) 1 % 0-1 (test wyts=7024) PROTHROMBIN [id number] 06:21:00 Test Item Value Reference Range Comments PROTIME (BEAKER) (test sigj=820) 13.5 seconds 11.7-14.7 INR (BEAKER) (test nvht=356) 1.0 <=5.9 RECOMMENDED COUMADIN/WARFARIN INR THERAPY RANGESSTANDARD DOSE: 2.0 - 3.0 Includes: PROPHYLAXIS forvenous thrombosis, systemic embolization; TREATMENT for venous thrombosis and/or pulmonary embolus.HIGH RISK: Target INR is 2.5-3.5 for patients with mechanical heart valves.
[2019-02-07] MEDS ORDERED: ONDANSETRON 4 MG (ODT) TAB ONE (17:50)
[2019-02-07] MEDS ORDERED: LIDOCAINE 4% PATCH ONE ×2 (17:50→19:00)
[2019-02-07] MEDS ORDERED: MORPHINE 4 MG/ML SYR ONE (17:50)
--- NOTE | 2019-02-07 18:07 | RAD REPORT ---
EXAM DESCRIPTION: RAD - Pelvis - 02/07/2019 5:59 pm CLINICAL HISTORY: PAIN COMPARISON: Abdomen Pelvis W Contrast dated 01/11/2019 FINDINGS: The bones are quite osteopenic. No fracture, dislocation or radiographic evidence of AVN. Mild lumbar degenerative changes. IMPRESSION: No acute abnormality seen.
--- NOTE | 2019-02-07 18:25 | ER ---
Nurse's Notes [facility] Name: Elva Jenkins Age: 88 yrs Sex: Female : 1930 Arrival Date: 02/07/2019 Time: 16:56 Bed 14 Private MD: Diagnosis: Strain of muscle, fascia and tendon of lower back Presentation: 02/07 17:03 Presenting complaint: EMS states: EMS states patient has had lower back pain for 2 ae4 weeks since her attempted to lift a planter, pain is not improving. Pain radiates to back of right leg. Transition of care: [facility]. Onset of symptoms was January 26, 2019. Risk Assessment: Do you want to hurt yourself or someone else? Patient reports no desire to harm self or others. Initial Sepsis Screen: Does the patient meet any 2 criteria? No. Patient's initial sepsis screen is negative. Does the patient have a suspected source of infection? No. Patient's initial sepsis screen is negative. Care prior to arrival: None. 17:03 Method Of Arrival: EMS: [facility] ae4 17:03 Acuity: TAVON 4 ae4 Triage Assessment: 17:12 General: Appears in no apparent distress. uncomfortable, slender, well groomed, ae4 Behavior is calm, cooperative. Pain: Complains of pain in left low back and right low back Pain radiates to right gluteal fold and right hamstring Pain currently is 10 out of 10 on a pain scale. EENT: Oral mucosa is dry. wears glasses. Neuro: Level of Consciousness is awake, alert, obeys commands, Oriented to person, place, time, situation, Appropriate for age. Cardiovascular: Patient's skin is warm and dry. Respiratory: Airway is patent Respiratory effort is even, unlabored, Respiratory pattern is regular, symmetrical. GI: Abdomen is round non-distended. : No signs and/or symptoms were reported regarding the genitourinary system. Derm: Bruising that is dark purple, on left arm. Musculoskeletal: No signs and/or symptoms reported regarding the musculoskeletal system. Historical: - Allergies: 17:10 Asacol; ae4 17:10 Humira; ae4 17:10 Methotrexate; ae4 17:10 Orencia; ae4 17:10 Phenergan; ae4 17:10 Sulfazine; ae4 - Home Meds: 17:10 albuterol sulfate 2.5 mg /3 mL (0.083 %) Inhl nebu 3 mL 3 times per day [Active]; ae4 albuterol sulfate 90 mcg/actuation Inhl HFAA 2 puffs every 6 hours [Active]; atorvastatin 40 mg Oral tab 1 tab once daily [Active]; benzonatate 200 mg Oral cap 1 cap 3 times per day [Active]; famotidine 20 mg Oral tab 1 tab once daily [Active]; levothyroxine 50 mcg tab 1 tab once daily [Active]; melatonin 3 mg Oral tab 2 tab nightly [Active]; paroxetine HCl 40 mg Oral tab 1 tab once daily [Active]; prednisone 5 mg Oral tab 2 tabs once daily [Active]; Spiriva with HandiHaler 18 mcg inhalation CpDv 1 cap once daily [Active]; Symbicort 160-4.5 mcg/actuation inhalation HFAA 2 puffs 2 times per day [Active]; - PMHx: 17:10 Arthritis; COPD; Depression; GERD; Hyperlipidemia; Hypothyroidism; ae4 - Immunization history:: Adult Immunizations up to date. - Social history:: Smoking status: Patient/guardian denies using tobacco, never smoked. - Ebola Screening: : Patient denies travel to an Ebola-affected area in the 21 days before illness onset No symptoms or risks identified at this time. Screenin:12 Abuse screen: Denies threats or abuse. Nutritional screening: No deficits noted. ae4 Tuberculosis screening: No symptoms or risk factors identified. Fall Risk None identified. Assessment: 17:13 Reassessment: Patient and son both report pt took a "Paxil" at about 1600 and a ae4 "Tylenol #3" at about 1400. 17:14 Reassessment: Provider at bedside discussing plan of care. ae4 17:45 Reassessment: Radiology at bedside obtaining x-rays. ae4 18:44 Reassessment: Patient appears in no apparent distress at this time. Patient ambulated ae4 to bathroom and tolerated well, Lidocaine patch was accidently removed, pt does not know where it went. Provider notified nurse of missing patch and gave new orders. Patient states feeling better. 18:44 Reassessment: Provider at bedside discussing plan of care and diagnosis. ae4 Vital Signs: 16:59 BP 130 / 82 LA Supine (man/); Pulse 85; Resp 17; Temp 98.2(O); Pulse Ox 94% ; Weight ae4 52.16 kg (R); Pain 10/10; 18:51 BP 162 / 90 RA Supine (man/reg); Pulse 82; Resp 16; Pulse Ox 92% on R/A; ae4 ED Course: 16:56 Patient arrived in ED. bd 16:58 [facility] NP is PHCP. pm1 16:58 Bismark Adams MD is Attending Physician. pm1 16:59 Jim Hansen RN is Primary Nurse. ae4 17:06 Triage completed. ae4 17:11 Arm band placed on right wrist. ae4 17:11 Bed in low position. Call light in reach. Side rails up X2. Adult w/ patient. Pulse ox ae4 on. Warm blanket given. 17:59 Pelvis XRAY In Process Unspecified. EDMS 19:13 No provider procedures requiring assistance completed. Patient did not have IV access rr5 during this emergency room visit. Administered Medications: 18:01 Drug: Zofran 4 mg Route: PO; ae4 19:08 Follow up: Response: No adverse reaction rr5 18:02 Drug: Lidoderm 5 % (700 mg/patch) 1 patches {Note: right upper buttocks area. .} Route: ae4 Topical; Site: affected area; 18:02 Drug: morphine 4 mg Route: IM; Site: right gluteus; ae4 19:08 Follow up: Response: Pain is decreased rr5 19:08 Follow up: Response: RASS: Alert and Calm (0) rr5 19:05 Drug: morphine 2 mg Route: IM; Site: right gluteus; rr5 19:12 Follow up: Response: Medication administered at discharge. rr5 19:12 Drug: Lidoderm 5 % (700 mg/patch) 1 patches Route: Topical; Site: affected area; rr5 19:12 Follow up: Response: Medication administered at discharge.; 2nd patch applied to rr5 replace missing patch. Intake: Outcome: 18:23 Discharge ordered by . pm1 19:15 Discharged to home via wheelchair, with family. ae4 19:15 Condition: stable 19:15 Discharge instructions given to patient, family, Instructed on discharge instructions, follow up and referral plans. Demonstrated understanding of instructions, Prescriptions given X 1. Signatures: Dispatcher [employer] EDMS Saray Wilkerson Patrick, NP [employer]ER pm1 Robin Arndt RN RN rr5 Jim Hansen RN RN ae4 Corrections: (The following items were deleted from the chart) 19:16 19:14 Condition: stable rr5 ae4 19:16 19:14 Discharged to home via wheelchair, with family, rr5 ae4 19:16 19:14 Discharge instructions given to patient, family, Instructed on discharge ae4 instructions, follow up and referral plans. medication usage, Demonstrated understanding of instructions, Prescriptions given X 1, rr5 19:16 19:14 Patient left the ED. rr5 ae4
--- NOTE | 2019-02-07 18:25 | EDPHYS ---
Physician Documentation [facility] Name: Elva Jenkins Age: 88 yrs Sex: Female : 1930 Arrival Date: 02/07/2019 Time: 16:56 Bed 14 Private MD: ED Physician Bismark Adams HPI: 02/07 17:46 This 88 yrs old Female presents to ER via EMS with complaints of Low back pm1 pain. 17:46 The patient presents with pain that is acute. The symptoms are located in the right pm1 sacral area. The pain radiates to the right leg. The problem was sustained when lifting potted plant. Patient was moving her plant back outside and felt back pain two weeks ago. Her son reports that she had a large muscle knot on the inner right buttocks. He has applied a TENS unit to her. He has been massaging, applying topical diclofenac, and lidocaine ointment. Patient knot has resolved but she has continued pain. She called her PCP earlier this week and was recommended follow up with pain management, but no appointments available this week. Next available appointment the end of February. Modifying factors: The patient symptoms are alleviated by rest, the patient symptoms are aggravated by getting up and moving. Associated signs and symptoms: Pertinent negatives: abdominal pain, constipation, dysuria, fever, hematuria, numbness, tingling, weakness. Severity of symptoms: in the emergency department the symptoms are unchanged. The patient has not experienced similar symptoms in the past. Historical: - Allergies: 17:10 Asacol; ae4 17:10 Humira; ae4 17:10 Methotrexate; ae4 17:10 Orencia; ae4 17:10 Phenergan; ae4 17:10 Sulfazine; ae4 - Home Meds: 17:10 albuterol sulfate 2.5 mg /3 mL (0.083 %) Inhl nebu 3 mL 3 times per day [Active]; ae4 albuterol sulfate 90 mcg/actuation Inhl HFAA 2 puffs every 6 hours [Active]; atorvastatin 40 mg Oral tab 1 tab once daily [Active]; benzonatate 200 mg Oral cap 1 cap 3 times per day [Active]; famotidine 20 mg Oral tab 1 tab once daily [Active]; levothyroxine 50 mcg tab 1 tab once daily [Active]; melatonin 3 mg Oral tab 2 tab nightly [Active]; paroxetine HCl 40 mg Oral tab 1 tab once daily [Active]; prednisone 5 mg Oral tab 2 tabs once daily [Active]; Spiriva with HandiHaler 18 mcg inhalation CpDv 1 cap once daily [Active]; Symbicort 160-4.5 mcg/actuation inhalation HFAA 2 puffs 2 times per day [Active]; - PMHx: 17:10 Arthritis; COPD; Depression; GERD; Hyperlipidemia; Hypothyroidism; ae4 - Immunization history:: Adult Immunizations up to date. - Social history:: Smoking status: Patient/guardian denies using tobacco, never smoked. - Ebola Screening: : Patient denies travel to an Ebola-affected area in the 21 days before illness onset No symptoms or risks identified at this time. ROS: 17:10 Constitutional: Negative for fever, chills, and weight loss, Neck: Negative for injury, pm1 pain, and swelling, Cardiovascular: Negative for chest pain, palpitations, and edema, Respiratory: Negative for shortness of breath, cough, wheezing, and pleuritic chest pain, Abdomen/GI: Negative for abdominal pain, nausea, vomiting, diarrhea, and constipation. 17:10 MS/Extremity: Negative for injury and deformity, Skin: Negative for injury, rash, and discoloration, Neuro: Negative for headache, weakness, numbness, tingling, and seizure. 17:10 Back: Positive for pain with movement, of the right side of sacrum, Negative for pain at rest. 17:10 All other systems are negative. Exam: 17:10 Constitutional: This is a well developed, well nourished patient who is awake, alert, pm1 and in no acute distress. Head/Face: Normocephalic, atraumatic. Neck: Trachea midline, no thyromegaly or masses palpated, and no cervical lymphadenopathy. Supple, full range of motion without nuchal rigidity, or vertebral point tenderness. No Meningismus. Chest/axilla: Normal chest wall appearance and motion. Nontender with no deformity. No lesions are appreciated. Cardiovascular: Regular rate and rhythm with a normal S1 and S2. No gallops, murmurs, or rubs. Normal PMI, no JVD. No pulse deficits. Respiratory: Lungs have equal breath sounds bilaterally, clear to auscultation and percussion. No rales, rhonchi or wheezes noted. No increased work of breathing, no retractions or nasal flaring. Abdomen/GI: Soft, non-tender, with normal bowel sounds. No distension or tympany. No guarding or rebound. No evidence of tenderness throughout. 17:10 Skin: Warm, dry with normal turgor. Normal color with no rashes, no lesions, and no evidence of cellulitis. MS/ Extremity: Pulses equal, no cyanosis. Neurovascular intact. Full, normal range of motion. 17:10 Back: pain, of the right side of sacrum, and right gluteus chantell, kyphosis, vertebral tenderness, is not appreciated. Vital Signs: 16:59 BP 130 / 82 LA Supine (man/); Pulse 85; Resp 17; Temp 98.2(O); Pulse Ox 94% ; Weight ae4 52.16 kg (R); Pain 10/10; 18:51 BP 162 / 90 RA Supine (man/reg); Pulse 82; Resp 16; Pulse Ox 92% on R/A; ae4 MDM: 17:07 Patient medically screened. pm1 18:10 ED course: Patient able to walk to restroom and back with slow steady gait. pm1 18:19 Data reviewed: vital signs. Counseling: I had a detailed discussion with the patient pm1 and/or guardian regarding: the historical points, exam findings, and any diagnostic results supporting the discharge/admit diagnosis, radiology results, to return to the emergency department if symptoms worsen or persist or if there are any questions or concerns that arise at home. 18:19 ED course: Patient requested admission, discussed case with attending. Patient does not pm1 meet admission criteria. Patient with muscle spasm and strain to right gluteus from lifting a planter and two weeks ago. Patient has been taking Tylenol #3 at home and is almost out of the medication. Patient reports some improvement in pain with medication given in the ER. Will discharge the patient home with Tylenol #3 and Lidoderm patch. 02/07 17:20 Order name: Pelvis XRAY; Complete Time: 18:10 pm1 Administered Medications: 18:01 Drug: Zofran 4 mg Route: PO; ae4 19:08 Follow up: Response: No adverse reaction rr5 18:02 Drug: Lidoderm 5 % (700 mg/patch) 1 patches {Note: right upper buttocks area. .} Route: ae4 Topical; Site: affected area; 18:02 Drug: morphine 4 mg Route: IM; Site: right gluteus; ae4 19:08 Follow up: Response: Pain is decreased rr5 19:08 Follow up: Response: RASS: Alert and Calm (0) rr5 19:05 Drug: morphine 2 mg Route: IM; Site: right gluteus; rr5 19:12 Follow up: Response: Medication administered at discharge. rr5 19:12 Drug: Lidoderm 5 % (700 mg/patch) 1 patches Route: Topical; Site: affected area; rr5 19:12 Follow up: Response: Medication administered at discharge.; 2nd patch applied to rr5 replace missing patch. Disposition: 02/07/19 18:23 Discharged to Home. Impression: Strain of muscle, fascia and tendon of lower back. - Condition is Stable. - Discharge Instructions: Back Pain, Adult, Muscle Strain. - Prescriptions for Tylenol- Codeine #3 300-30 mg Oral Tablet - take 1 tablet by ORAL route every 6 hours As needed; 20 tablet. - Medication Reconciliation Form, Thank You Letter, Antibiotic Education, Prescription Opioid Use form. - Follow up: Emergency Department; When: As needed; Reason: Worsening of condition. Follow up: Private Physician; When: 2 - 3 days; Reason: Recheck today's complaints, Continuance of care, Re-evaluation by your physician. - Problem is new. - Symptoms have improved. Addendum: 02/12/2019 09:58 Co-signature as Attending Physician, Bismark Adams MD I agree with the assessment and k dr plan of care. Signatures: Dispatcher [employer] EDDE Bismark Adams MD MD [facility] NP HEADHUNTER pm1 Robin Arndt RN RN rr5 Jim Hansen, GUME RN ae4 Corrections: (The following items were deleted from the chart) 02/07 19:14 18:23 02/07/2019 18:23 Discharged to Home. Impression: Strain of muscle, fascia and rr5 tendon of lower back. Condition is Stable. Forms are Medication Reconciliation Form, Thank You Letter, Antibiotic Education, Prescription Opioid Use. Follow up: Emergency Department; When: As needed; Reason: Worsening of condition. Follow up: Private Physician; When: 2 - 3 days; Reason: Recheck today's complaints, Continuance of care, Re-evaluation by your physician. Problem is new. Symptoms have improved. pm1
[2019-02-07] MEDS ORDERED: MORPHINE 2 MG/ML SYR ONE (19:00)
[2019-02-07 20:47] VITALS: TEMP 98.2
[2019-02-07 20:48] VITALS: BP 162/90; O2SAT 92
== END 2019-02-07 19:14 | disposition home or self-care (01) ==
LOC: ER 16:49
DX: S39.012A Strain of muscle, fascia and tendon of lower back, initial encounter (principal); X50.0XXA Overexertion from strenuous movement or load, initial encounter; Y93.89 Activity, other specified; Y92.9 Unspecified place or not applicable; Z88.8 Allergy status to other drugs, medicaments and biological substances; E03.9 Hypothyroidism, unspecified; E78.5 Hyperlipidemia, unspecified; K21.9 Gastro-esophageal reflux disease without esophagitis; J44.9 Chronic obstructive pulmonary disease, unspecified
CPT/HCPCS: 72170; 96372; 99284; J2270

== ENCOUNTER 2019-03-03 13:41 | Emergency (ER) | payer OTHER ==
--- OUTSIDE RECORDS SUMMARY | 2019-03-03 13:44 | XMS REPORT ---
:1930 Author Organization [facility] Address [address] [place] [address] Dr. Marsh [address] [place] [id number] Care Team Providers Name Role Phone KIM MCKEON ZARI Unavailable Unavailable RICARDO WILSON Unavailable Unavailable Problems This patient has no known problems. Allergies, Adverse Reactions, Alerts This patient has no known allergies or adverse reactions. Medications This patient has no known medications. Results Test Description Test Time Test Comments Text Results Atomic Results Result Comments TISSUE EXAM 2017-09-20 16:22:00 Surgical Pathology Report Case: [id number] Authorizing Provider: Misha Calloway MD Collected: 09/16/2017 1538 Ordering Location: [address] Received: 09/19/2017 0820 Service Pathologist: Larry Cohn MD Specimen: Polyp, Colon - Rectosigmoid, POLYP TAKEN BY HOT SNARE RECTO-SIGMOID, POLYPECTOMY- TUBULAR ADENOMA- CAUTERIZED EDGE, NEGATIVE FOR ADENOMATOUS CHANGE Signing Pathologist Direct Phone Line: [phone] signed by Larry Cohn MD on 09/20/2017 at 4:22 [id number] bleedRectosigmoid colon polypThe specimen is received in [...] Value Reference Range Comments MAGNESIUM (BEAKER) (test jgtk=919) 1.9 mg/dL 1.6-2.6 BASIC METABOLIC [id number] 07:32:00 Test Item Value Reference Range Comments SODIUM (BEAKER) (test 138 meq/L 136-145 efbg=906) POTASSIUM (BEAKER) (test 4.2 meq/L 3.5-5.1 unvp=576) CHLORIDE (BEAKER) (test 106 meq/L 98-107 meqn=567) CO2 (BEAKER) (test 25 meq/L 22-29 nptl=666) BLOOD UREA NITROGEN 6 mg/dL 7-21 (BEAKER) (test eeox=025) CREATININE (BEAKER) (test 0.66 mg/dL 0.57-1.25 iped=881) GLUCOSE RANDOM (BEAKER) 76 mg/dL 70-105 (test hszr=203) CALCIUM (BEAKER) (test 8.4 mg/dL 8.4-10.2 ebgy=802) EGFR (BEAKER) (test 85 mL/min/1.73 sq m ESTIMATED GFR IS NOT xghl=7266) ACCURATE CREATININE CLEARANCE IN PREDICTING GLOMERULAR FILTRATION RATE. ESTIMATED GFR IS NOT APPLICABLE FOR DIALYSIS PATIENTS. [id number] 06:42:00 Test Item Value Reference Range Comments PROTIME (BEAKER) (test cavf=898) 20.8 seconds 11.7-14.7 INR (BEAKER) (test wjhq=438) 1.8 <=5.9 PARTIAL THROMBOPLASTIN TIME (BEAKER) (test 36.1 seconds 22.5-36.0 gkit=343) RECOMMENDED COUMADIN/WARFARIN INR THERAPY RANGESSTANDARD DOSE: 2.0 - 3.0 Includes: PROPHYLAXIS forvenous thrombosis, systemic embolization; TREATMENT for venous thrombosis and/or pulmonary embolus.HIGH RISK: Target INR is 2.5-3.5 for patients with mechanical heart valves.CBC W/PLT COUNT & AUTO [id number] 06:41:00 Test Item Value Reference Range Comments WHITE BLOOD CELL COUNT (BEAKER) (test adfp=251) 5.5 K/ L 3.5-10.5 RED BLOOD CELL COUNT (BEAKER) (test enku=409) 3.52 M/ L 3.93-5.22 HEMOGLOBIN (BEAKER) (test ykdd=932) 10.4 GM/DL 11.2-15.7 HEMATOCRIT (BEAKER) (test gpou=225) 33.1 % 34.1-44.9 MEAN CORPUSCULAR VOLUME (BEAKER) (test ckrc=568) 94.0 fL 79.4-94.8 MEAN CORPUSCULAR HEMOGLOBIN (BEAKER) (test 29.5 pg 25.6-32.2 tjtn=902) MEAN CORPUSCULAR HEMOGLOBIN CONC (BEAKER) (test 31.4 GM/DL 32.2-35.5 maml=289) RED CELL DISTRIBUTION WIDTH (BEAKER) (test 19.8 % 11.7-14.4 krwy=926) PLATELET COUNT (BEAKER) (test ippc=714) 240 K/CU MM 150-450 MEAN PLATELET VOLUME (BEAKER) (test skxt=569) 8.5 fL 9.4-12.3 NUCLEATED RED BLOOD CELLS (BEAKER) (test 0 /100 WBC 0-0 bxgb=634) NEUTROPHILS RELATIVE PERCENT (BEAKER) (test 43 % becs=237) LYMPHOCYTES RELATIVE PERCENT (BEAKER) (test 49 % mbxt=215) MONOCYTES RELATIVE PERCENT (BEAKER) (test 7 % xomi=690) EOSINOPHILS RELATIVE PERCENT (BEAKER) (test 1 % fnoa=690) BASOPHILS RELATIVE PERCENT (BEAKER) (test 0 % ybdx=344) NEUTROPHILS ABSOLUTE COUNT (BEAKER) (test 2.34 K/ L 1.56-6.13 jypq=536) LYMPHOCYTES ABSOLUTE COUNT (BEAKER) (test 2.68 K/ L 1.18-3.74 xmgk=515) MONOCYTES ABSOLUTE COUNT (BEAKER) (test 0.38 K/ L 0.24-0.36 eurt=608) EOSINOPHILS ABSOLUTE COUNT (BEAKER) (test 0.05 K/ L 0.04-0.36 gwba=139) BASOPHILS ABSOLUTE COUNT (BEAKER) (test 0.02 K/ L 0.01-0.08 wbmd=311) IMMATURE GRANULOCYTES-RELATIVE PERCENT (BEAKER) 0 % 0-1 (test fdcg=0433) [id number] 19:07:00 Test Item Value Reference Range Comments MAGNESIUM (BEAKER) (test ling=588) 1.9 mg/dL 1.6-2.6 BASIC METABOLIC [id number] 19:07:00 Test Item Value Reference Range Comments SODIUM (BEAKER) (test 137 meq/L 136-145 arrl=667) POTASSIUM (BEAKER) (test 3.8 meq/L 3.5-5.1 erhq=334) CHLORIDE (BEAKER) (test 106 meq/L 98-107 utzx=372) CO2 (BEAKER) (test 23 meq/L 22-29 ugxz=594) BLOOD UREA NITROGEN 6 mg/dL 7-21 (BEAKER) (test ocko=541) CREATININE (BEAKER) (test 0.64 mg/dL 0.57-1.25 avus=196) GLUCOSE RANDOM (BEAKER) 82 mg/dL 70-105 (test zfbi=584) CALCIUM (BEAKER) (test 8.5 mg/dL 8.4-10.2 edag=905) EGFR (BEAKER) (test 88 mL/min/1.73 sq m ESTIMATED GFR IS NOT jxov=7696) ACCURATE CREATININE CLEARANCE IN PREDICTING GLOMERULAR FILTRATION RATE. ESTIMATED GFR IS NOT APPLICABLE FOR DIALYSIS PATIENTS. CBC (HEMOGRAM ONLY)2017-09-16 18:38:00 Test Item Value Reference Range Comments WHITE BLOOD CELL COUNT (BEAKER) (test lpay=636) 6.5 K/ L 3.5-10.5 RED BLOOD CELL COUNT (BEAKER) (test qynd=524) 3.61 M/ L 3.93-5.22 HEMOGLOBIN (BEAKER) (test itxw=634) 10.9 GM/DL 11.2-15.7 HEMATOCRIT (BEAKER) (test mcsn=839) 33.5 % 34.1-44.9 MEAN CORPUSCULAR VOLUME (BEAKER) (test sgni=903) 92.8 fL 79.4-94.8 MEAN CORPUSCULAR HEMOGLOBIN (BEAKER) (test 30.2 pg 25.6-32.2 vrer=156) MEAN CORPUSCULAR HEMOGLOBIN CONC (BEAKER) (test 32.5 GM/DL 32.2-35.5 saqe=778) RED CELL DISTRIBUTION WIDTH (BEAKER) (test 19.8 % 11.7-14.4 kkfz=655) PLATELET COUNT (BEAKER) (test ldyd=297) 239 K/CU MM 150-450 MEAN PLATELET VOLUME (BEAKER) (test tfzb=081) 8.7 fL 9.4-12.3 NUCLEATED RED BLOOD CELLS (BEAKER) (test 0 /100 WBC 0-0 dvtd=144) [id number] 06:56:00 Test Item Value Reference Range Comments PHOSPHORUS (BEAKER) (test kizl=527) 2.7 mg/dL 2.3-4.7 [id number] 06:56:00 Test Item Value Reference Range Comments MAGNESIUM (BEAKER) (test mynj=476) 1.9 mg/dL 1.6-2.6 BASIC METABOLIC [id number] 06:56:00 Test Item Value Reference Range Comments SODIUM (BEAKER) (test 139 meq/L 136-145 wkvd=622) POTASSIUM (BEAKER) (test 4.1 meq/L 3.5-5.1 dfqf=988) CHLORIDE (BEAKER) (test 107 meq/L 98-107 cuul=427) CO2 (BEAKER) (test 26 meq/L 22-29 ubhn=451) BLOOD UREA NITROGEN 11 mg/dL 7-21 (BEAKER) (test jrzr=354) CREATININE (BEAKER) (test 0.73 mg/dL 0.57-1.25 tdat=058) GLUCOSE RANDOM (BEAKER) 107 mg/dL 70-105 (test cotf=977) CALCIUM (BEAKER) (test 8.5 mg/dL 8.4-10.2 lupo=747) EGFR (BEAKER) (test 76 mL/min/1.73 sq m ESTIMATED GFR IS NOT tzyn=2699) ACCURATE CREATININE CLEARANCE IN PREDICTING GLOMERULAR FILTRATION RATE. ESTIMATED GFR IS NOT APPLICABLE FOR DIALYSIS PATIENTS. HEPATIC FUNCTION [id number] 06:56:00 Test Item Value Reference Range Comments TOTAL PROTEIN (BEAKER) (test naru=248) 5.2 gm/dL 6.0-8.3 ALBUMIN (BEAKER) (test zvca=6124) 2.9 g/dL 3.5-5.0 BILIRUBIN TOTAL (BEAKER) (test mtpv=216) 0.8 mg/dL 0.2-1.2 BILIRUBIN DIRECT (BEAKER) (test ypxj=921) 0.4 mg/dL 0.1-0.5 ALKALINE PHOSPHATASE (BEAKER) (test nmvj=093) 43 U/L 40-150 AST (SGOT) (BEAKER) (test wwds=900) 13 U/L 5-34 ALT (SGPT) (BEAKER) (test uhsr=289) 10 U/L 6-55 CALCIUM, [id number] 06:36:00 Test Item Value Reference Range Comments CALCIUM IONIZED (BEAKER) (test cwpv=955) 1.05 mmol/L 1.12-1.27 PH, BLOOD (BEAKER) (test mtzc=9711) 7.46 PROTHROMBIN [id number] 06:35:00 Test Item Value Reference Range Comments PROTIME (BEAKER) (test wykm=096) 14.2 seconds 11.7-14.7 INR (BEAKER) (test illu=348) 1.1 <=5.9 RECOMMENDED COUMADIN/WARFARIN INR THERAPY RANGESSTANDARD DOSE: 2.0 - 3.0 Includes: PROPHYLAXIS forvenous thrombosis, systemic embolization; TREATMENT for venous thrombosis and/or pulmonary embolus.HIGH RISK: Target INR is 2.5-3.5 for patients with mechanical heart valves.CBC W/PLT COUNT & AUTO [id number] 06:25:00 Test Item Value Reference Range Comments WHITE BLOOD CELL COUNT (BEAKER) (test zaed=066) 9.4 K/ L 3.5-10.5 RED BLOOD CELL COUNT (BEAKER) (test unbb=905) 3.48 M/ L 3.93-5.22 HEMOGLOBIN (BEAKER) (test uthc=728) 10.0 GM/DL 11.2-15.7 HEMATOCRIT (BEAKER) (test eezt=218) 31.1 % 34.1-44.9 MEAN CORPUSCULAR VOLUME (BEAKER) (test oqjh=834) 89.4 fL 79.4-94.8 MEAN CORPUSCULAR HEMOGLOBIN (BEAKER) (test 28.7 pg 25.6-32.2 laot=976) MEAN CORPUSCULAR HEMOGLOBIN CONC (BEAKER) (test 32.2 GM/DL 32.2-35.5 iwig=016) RED CELL DISTRIBUTION WIDTH (BEAKER) (test 18.3 % 11.7-14.4 aoxc=013) PLATELET COUNT (BEAKER) (test zcfv=386) 234 K/CU MM 150-450 MEAN PLATELET VOLUME (BEAKER) (test dnbn=763) 8.9 fL 9.4-12.3 NUCLEATED RED BLOOD CELLS (BEAKER) (test 0 /100 WBC 0-0 bshq=907) NEUTROPHILS RELATIVE PERCENT (BEAKER) (test 70 % crpy=422) LYMPHOCYTES RELATIVE PERCENT (BEAKER) (test 24 % ofbw=968) MONOCYTES RELATIVE PERCENT (BEAKER) (test 5 % tkhf=192) EOSINOPHILS RELATIVE PERCENT (BEAKER) (test 0 % lnsz=555) BASOPHILS RELATIVE PERCENT (BEAKER) (test 0 % aqwd=639) NEUTROPHILS ABSOLUTE COUNT (BEAKER) (test 6.54 K/ L 1.56-6.13 yzmd=210) LYMPHOCYTES ABSOLUTE COUNT (BEAKER) (test 2.30 K/ L 1.18-3.74 vlmu=360) MONOCYTES ABSOLUTE COUNT (BEAKER) (test 0.50 K/ L 0.24-0.36 ijee=496) EOSINOPHILS ABSOLUTE COUNT (BEAKER) (test 0.03 K/ L 0.04-0.36 rhrc=759) BASOPHILS ABSOLUTE COUNT (BEAKER) (test 0.02 K/ L 0.01-0.08 mvug=933) IMMATURE GRANULOCYTES-RELATIVE PERCENT (BEAKER) 0 % 0-1 (test ddqq=3022) TISSUE [id number] 14:52:00Surgical Pathology Report Case: [id number] Authorizing Provider: Ricardo Wilson MD Collected: 08/02/2017 1715 Ordering Location: [facility] Endoscopy Received: 08/03/2017 0837 Services Pathologist: Larry Cohn MD Specimen: Rectal, MASS- TAKEN BY ESD, ON WAX, EVALUATE MARGINS RECTAL, 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)- NEGATIVE FOR HIGH GRADE DYSPLASIA OR CARCINOMA- PERIPHERAL MARGINS, NEGATIVE FOR ADENOMATOUS CHANGE Signing Pathologist Direct Phone Line: [phone] signed by Larry Cohn MD on 08/04/2017 at 2:52 [id number] polyp Rectal mass Received in formalin labeled [...] the diagnostic line.CBC W/PLT COUNT & AUTO [id number] 06:19:00 Test Item Value Reference Range Comments WHITE BLOOD CELL COUNT (BEAKER) (test fjof=882) 15.6 K/ L 3.5-10.5 RED BLOOD CELL COUNT (BEAKER) (test wljf=133) 3.50 M/ L 3.93-5.22 HEMOGLOBIN (BEAKER) (test tinw=934) 9.9 GM/DL 11.2-15.7 HEMATOCRIT (BEAKER) (test pfsw=184) 31.4 % 34.1-44.9 MEAN CORPUSCULAR VOLUME (BEAKER) (test homf=190) 89.7 fL 79.4-94.8 MEAN CORPUSCULAR HEMOGLOBIN (BEAKER) (test 28.3 pg 25.6-32.2 mxpu=122) MEAN CORPUSCULAR HEMOGLOBIN CONC (BEAKER) (test 31.5 GM/DL 32.2-35.5 czwm=803) RED CELL DISTRIBUTION WIDTH (BEAKER) (test 18.0 % 11.7-14.4 fnez=458) PLATELET COUNT (BEAKER) (test sikt=415) 223 K/CU MM 150-450 MEAN PLATELET VOLUME (BEAKER) (test jscg=726) 8.7 fL 9.4-12.3 NUCLEATED RED BLOOD CELLS (BEAKER) (test 0 /100 WBC 0-0 avtp=280) NEUTROPHILS RELATIVE PERCENT (BEAKER) (test 81 % xxpq=520) LYMPHOCYTES RELATIVE PERCENT (BEAKER) (test 15 % bkxo=656) MONOCYTES RELATIVE PERCENT (BEAKER) (test 4 % snem=912) EOSINOPHILS RELATIVE PERCENT (BEAKER) (test 0 % lzru=291) BASOPHILS RELATIVE PERCENT (BEAKER) (test 0 % jjcb=758) NEUTROPHILS ABSOLUTE COUNT (BEAKER) (test 12.56 K/ L 1.56-6.13 ecka=025) LYMPHOCYTES ABSOLUTE COUNT (BEAKER) (test 2.36 K/ L 1.18-3.74 bscu=439) MONOCYTES ABSOLUTE COUNT (BEAKER) (test 0.56 K/ L 0.24-0.36 pxrj=512) EOSINOPHILS ABSOLUTE COUNT (BEAKER) (test 0.03 K/ L 0.04-0.36 fcal=346) BASOPHILS ABSOLUTE COUNT (BEAKER) (test 0.02 K/ L 0.01-0.08 erjw=384) IMMATURE GRANULOCYTES-RELATIVE PERCENT (BEAKER) 0 % 0-1 (test fgcc=1401) HEPATIC FUNCTION [id number] 06:15:00 Test Item Value Reference Range Comments TOTAL PROTEIN (BEAKER) (test wbmd=425) 4.9 gm/dL 6.0-8.3 ALBUMIN (BEAKER) (test ilzi=1604) 2.8 g/dL 3.5-5.0 BILIRUBIN TOTAL (BEAKER) (test dtau=106) 1.1 mg/dL 0.2-1.2 BILIRUBIN DIRECT (BEAKER) (test fmfj=036) 0.5 mg/dL 0.1-0.5 ALKALINE PHOSPHATASE (BEAKER) (test bdas=422) 42 U/L 40-150 AST (SGOT) (BEAKER) (test sdyr=693) 15 U/L 5-34 ALT (SGPT) (BEAKER) (test qhel=397) 12 U/L 6-55 BASIC METABOLIC [id number] 06:15:00 Test Item Value Reference Range Comments SODIUM (BEAKER) (test 139 meq/L 136-145 qlmq=352) POTASSIUM (BEAKER) (test 4.6 meq/L 3.5-5.1 vstq=471) CHLORIDE (BEAKER) (test 108 meq/L 98-107 regf=200) CO2 (BEAKER) (test 25 meq/L 22-29 jbdr=930) BLOOD UREA NITROGEN 13 mg/dL 7-21 (BEAKER) (test tdfo=802) CREATININE (BEAKER) (test 0.73 mg/dL 0.57-1.25 wirq=233) GLUCOSE RANDOM (BEAKER) 115 mg/dL 70-105 (test xker=234) CALCIUM (BEAKER) (test 8.5 mg/dL 8.4-10.2 fzab=544) EGFR (BEAKER) (test 76 mL/min/1.73 sq m ESTIMATED GFR IS NOT uqoj=7511) ACCURATE CREATININE CLEARANCE IN PREDICTING GLOMERULAR FILTRATION RATE. ESTIMATED GFR IS NOT APPLICABLE FOR DIALYSIS PATIENTS. PROTHROMBIN [id number] 05:59:00 Test Item Value Reference Range Comments PROTIME (BEAKER) (test hiik=611) 14.6 seconds 11.7-14.7 INR (BEAKER) (test wclj=803) 1.1 <=5.9 RECOMMENDED COUMADIN/WARFARIN INR THERAPY RANGESSTANDARD DOSE: 2.0 - 3.0 Includes: PROPHYLAXIS forvenous thrombosis, systemic embolization; TREATMENT for venous thrombosis and/or pulmonary embolus.HIGH RISK: Target INR is 2.5-3.5 for patients with mechanical heart valves.URINALYSIS W/ [id number] 14 :53:00 Test Item Value Reference Range Comments COLOR (BEAKER) (test mnfd=505) Yellow CLARITY (BEAKER) (test uvcv=470) Clear SPECIFIC GRAVITY UA (BEAKER) (test dbpa=050) 1.010 1.001-1.035 PH UA (BEAKER) (test uqha=217) 5.5 5.0-8.0 PROTEIN UA (BEAKER) (test extl=193) Negative Negative GLUCOSE UA (BEAKER) (test yqum=907) Negative Negative KETONES UA (BEAKER) (test hfyf=515) Trace Negative BILIRUBIN UA (BEAKER) (test wcnp=491) Negative Negative BLOOD UA (BEAKER) (test nucd=653) Negative Negative NITRITE UA (BEAKER) (test cpao=604) Negative Negative LEUKOCYTE ESTERASE UA (BEAKER) (test ilzw=485) Negative Negative UROBILINOGEN UA (BEAKER) (test clcz=385) 0.2 mg/dL 0.2-1.0 RBC UA (BEAKER) (test iqnj=033) 1 /HPF WBC UA (BEAKER) (test eplh=005) 3 /HPF MUCUS (BEAKER) (test lvos=5555) Few SQUAMOUS EPITHELIAL (BEAKER) (test oztg=565) < /HPF HYALINE CASTS (BEAKER) (test ajpo=228) 2 /LPF SOURCE(BEAKER) (test xtfz=6175) HEPATIC FUNCTION [id number] 06:31:00 Test Item Value Reference Range Comments TOTAL PROTEIN (BEAKER) (test wutf=870) 5.2 gm/dL 6.0-8.3 ALBUMIN (BEAKER) (test rckv=1315) 3.1 g/dL 3.5-5.0 BILIRUBIN TOTAL (BEAKER) (test uvti=683) 1.1 mg/dL 0.2-1.2 BILIRUBIN DIRECT (BEAKER) (test orgd=258) 0.5 mg/dL 0.1-0.5 ALKALINE PHOSPHATASE (BEAKER) (test gbzq=007) 47 U/L 40-150 AST (SGOT) (BEAKER) (test qjlz=635) 20 U/L 5-34 ALT (SGPT) (BEAKER) (test azcv=846) 15 U/L 6-55 BASIC METABOLIC [id number] 06:31:00 Test Item Value Reference Range Comments SODIUM (BEAKER) (test 139 meq/L 136-145 sixi=283) POTASSIUM (BEAKER) (test 2.7 meq/L 3.5-5.1 xnfj=703) CHLORIDE (BEAKER) (test 106 meq/L 98-107 agqi=280) CO2 (BEAKER) (test 24 meq/L 22-29 usle=259) BLOOD UREA NITROGEN 7 mg/dL 7-21 (BEAKER) (test zjmc=470) CREATININE (BEAKER) (test 0.61 mg/dL 0.57-1.25 cavt=421) GLUCOSE RANDOM (BEAKER) 88 mg/dL 70-105 (test dwnp=649) CALCIUM (BEAKER) (test 8.4 mg/dL 8.4-10.2 ukpf=671) EGFR (BEAKER) (test 93 mL/min/1.73 sq m ESTIMATED GFR IS NOT ncsm=5909) ACCURATE CREATININE CLEARANCE IN PREDICTING GLOMERULAR FILTRATION RATE. ESTIMATED GFR IS NOT APPLICABLE FOR DIALYSIS PATIENTS. BASIC METABOLIC [id number] 06:30:00 Test Item Value Reference Range Comments SODIUM (BEAKER) (test 136 meq/L 136-145 ftvp=768) POTASSIUM (BEAKER) (test 3.0 meq/L 3.5-5.1 Specimen slightly jolq=540) hemolyzed CHLORIDE (BEAKER) (test 106 meq/L 98-107 kcjf=300) CO2 (BEAKER) (test 20 meq/L 22-29 yifi=982) BLOOD UREA NITROGEN 7 mg/dL 7-21 (BEAKER) (test tsyx=855) CREATININE (BEAKER) (test 0.61 mg/dL 0.57-1.25 Specimen slightly fxeq=739) hemolyzed GLUCOSE RANDOM (BEAKER) 81 mg/dL 70-105 (test jxxr=836) CALCIUM (BEAKER) (test 8.2 mg/dL 8.4-10.2 rmed=389) EGFR (BEAKER) (test 93 mL/min/1.73 sq m ESTIMATED GFR IS NOT tybr=1091) ACCURATE CREATININE CLEARANCE IN PREDICTING GLOMERULAR FILTRATION RATE. ESTIMATED GFR IS NOT APPLICABLE FOR DIALYSIS PATIENTS. CBC W/PLT COUNT & AUTO [id number] 06:25:00 Test Item Value Reference Range Comments WHITE BLOOD CELL COUNT (BEAKER) (test zekh=414) 14.6 K/ L 3.5-10.5 RED BLOOD CELL COUNT (BEAKER) (test glfa=561) 3.75 M/ L 3.93-5.22 HEMOGLOBIN (BEAKER) (test uxjt=199) 10.5 GM/DL 11.2-15.7 HEMATOCRIT (BEAKER) (test srgr=133) 33.1 % 34.1-44.9 MEAN CORPUSCULAR VOLUME (BEAKER) (test zljn=404) 88.3 fL 79.4-94.8 MEAN CORPUSCULAR HEMOGLOBIN (BEAKER) (test 28.0 pg 25.6-32.2 meqj=241) MEAN CORPUSCULAR HEMOGLOBIN CONC (BEAKER) (test 31.7 GM/DL 32.2-35.5 ehmy=959) RED CELL DISTRIBUTION WIDTH (BEAKER) (test 17.5 % 11.7-14.4 wkis=547) PLATELET COUNT (BEAKER) (test bxai=208) 246 K/CU MM 150-450 MEAN PLATELET VOLUME (BEAKER) (test uwrv=958) 8.9 fL 9.4-12.3 NUCLEATED RED BLOOD CELLS (BEAKER) (test 0 /100 WBC 0-0 bvnb=111) NEUTROPHILS RELATIVE PERCENT (BEAKER) (test 88 % jges=862) LYMPHOCYTES RELATIVE PERCENT (BEAKER) (test 5 % bkke=211) MONOCYTES RELATIVE PERCENT (BEAKER) (test 6 % fwdt=289) EOSINOPHILS RELATIVE PERCENT (BEAKER) (test 0 % gwom=155) BASOPHILS RELATIVE PERCENT (BEAKER) (test 0 % xlgu=668) NEUTROPHILS ABSOLUTE COUNT (BEAKER) (test 12.85 K/ L 1.56-6.13 nchz=295) LYMPHOCYTES ABSOLUTE COUNT (BEAKER) (test 0.71 K/ L 1.18-3.74 iyzt=523) MONOCYTES ABSOLUTE COUNT (BEAKER) (test 0.94 K/ L 0.24-0.36 oheq=650) EOSINOPHILS ABSOLUTE COUNT (BEAKER) (test 0.00 K/ L 0.04-0.36 xwzg=308) BASOPHILS ABSOLUTE COUNT (BEAKER) (test 0.02 K/ L 0.01-0.08 esxh=978) IMMATURE GRANULOCYTES-RELATIVE PERCENT (BEAKER) 1 % 0-1 (test vdgx=0115) PROTHROMBIN [id number] 06:21:00 Test Item Value Reference Range Comments PROTIME (BEAKER) (test bxsa=743) 13.5 seconds 11.7-14.7 INR (BEAKER) (test oqrt=110) 1.0 <=5.9 RECOMMENDED COUMADIN/WARFARIN INR THERAPY RANGESSTANDARD DOSE: 2.0 - 3.0 Includes: PROPHYLAXIS forvenous thrombosis, systemic embolization; TREATMENT for venous thrombosis and/or pulmonary embolus.HIGH RISK: Target INR is 2.5-3.5 for patients with mechanical heart valves.
[2019-03-03] MEDS ORDERED: MORPHINE 4 MG/ML SYR ONE (14:02)
[2019-03-03] MEDS ORDERED: ONDANSETRON 4 MG/2 ML VIAL ONE (14:02)
--- NOTE | 2019-03-03 15:28 | RAD REPORT ---
EXAM DESCRIPTION: RAD - Hip Right 2 View - 03/03/2019 2:30 pm CLINICAL HISTORY: Right hip pain FINDINGS: No fracture or dislocation is seen. The bones are osteoporotic. Mild joint space narrowing
--- NOTE | 2019-03-03 16:01 | ER ---
Nurse's Notes [facility] Name: Elva Jenkins Age: 88 yrs Sex: Female : 1930 Arrival Date: 03/03/2019 Time: 13:43 Bed 2 Private MD: Diagnosis: Pain in right hip Presentation: 03/03 13:49 Presenting complaint: EMS states: She was dx with a sprained back muscle a month ago jl7 from lifting a pot, Dr. Pollock did x-rays and she has 2 fractured vertebras, today she is c/o right hip pain that radiates down the leg. Transition of care: [facility]. Onset of symptoms was March 03, 2019. Risk Assessment: Do you want to hurt yourself or someone else? Patient reports no desire to harm self or others. Initial Sepsis Screen: Does the patient meet any 2 criteria? No. Patient's initial sepsis screen is negative. Does the patient have a suspected source of infection? No. Patient's initial sepsis screen is negative. Care prior to arrival: Medication(s) given: 30 mg Toradol IV IV initiated. 18 GA, in the right antecubital area. 13:49 Method Of Arrival: EMS: [facility] jl7 13:49 Acuity: TAVON 4 jl7 Triage Assessment: 13:54 General: Appears in no apparent distress. uncomfortable, Behavior is cooperative, jl7 anxious. Pain: Complains of pain in right hip Pain radiates to right leg. Neuro: Level of Consciousness is awake, alert, obeys commands, Oriented to person, place, time, situation. Cardiovascular: Patient's skin is warm and dry. Edema bilateral lower extremities. Respiratory: Airway is patent Respiratory effort is even, unlabored, Respiratory pattern is regular, symmetrical. Derm: Skin is pink, warm \\T\\ dry. Musculoskeletal: Swelling absent. Historical: - Allergies: 13:54 Asacol; jl7 13:54 Humira; jl7 13:54 Methotrexate; jl7 13:54 Orencia; jl 13:54 Phenergan; jl 13:54 Sulfazine; jl7 - Home Meds: 13:54 Symbicort 160-4.5 mcg/actuation inhalation HFAA 2 puffs 2 times per day [Active]; jl7 levothyroxine 50 mcg tab 1 tab once daily [Active]; albuterol sulfate 2.5 mg /3 mL (0.083 %) Inhl nebu 3 mL 3 times per day [Active]; albuterol sulfate 90 mcg/actuation Inhl HFAA 2 puffs every 6 hours [Active]; atorvastatin 40 mg Oral tab 1 tab once daily [Active]; benzonatate 200 mg Oral cap 1 cap 3 times per day [Active]; famotidine 20 mg Oral tab 1 tab once daily [Active]; melatonin 3 mg Oral tab 2 tab nightly [Active]; paroxetine HCl 40 mg Oral tab 1 tab once daily [Active]; prednisone 5 mg Oral tab 2 tabs once daily [Active]; Spiriva with HandiHaler 18 mcg inhalation CpDv 1 cap once daily [Active]; - PMHx: 13:54 Arthritis; COPD; Depression; GERD; Hyperlipidemia; Hypothyroidism; jl7 - Immunization history:: Adult Immunizations up to date. - Social history:: Smoking status: Patient/guardian denies using tobacco, Patient/guardian denies using alcohol, street drugs, The patient lives with family. - Ebola Screening: : No symptoms or risks identified at this time. - Family history:: not pertinent. Screenin:04 Abuse screen: Denies threats or abuse. Nutritional screening: No deficits noted. tw2 Tuberculosis screening: No symptoms or risk factors identified. Fall Risk Secondary diagnosis (15 points) impaired mobility. Assessment: 13:45 General: See triage assessment. Pain: Complains of pain in right hip Pain radiates to jl7 right leg Pain currently is 10 out of 10 on a pain scale. Is continuous. 14:18 Reassessment: Patient appears in no apparent distress at this time. pt states "It jl7 doesn't really hurt at all anymore." Instructed pt to move herself up in bed and see how that feels, pt moved up in bed and reports mild discomfort, rated 2/10 at this time. Patient states feeling better. Patient states symptoms have improved. 15:21 Reassessment: Patient appears in no apparent distress at this time. Patient and/or tw2 family updated on plan of care and expected duration. Pain level reassessed. Patient is alert, oriented x 3, equal unlabored respirations, skin warm/dry/pink. Vital Signs: 13:54 BP 146 / 65; Pulse 75; Resp 19 S; Temp 97.8(O); Pulse Ox 97% on R/A; jl7 15:21 BP 155 / 80; Pulse 79; Resp 17; Pulse Ox 95% on R/A; tw2 ED Course: 13:43 Patient arrived in ED. tw2 13:45 Eliazar Villegas MD is Attending Physician. ma2 13:49 Norberto Leo RN is Primary Nurse. jl7 13:49 Bed in low position. Call light in reach. Side rails up X2. quality assurance monitor final on. Pulse tw2 ox on. NIBP on. 13:51 Triage completed. jl7 13:54 Arm band placed on right wrist. jl7 14:30 Hip Right 2 View XRAY In Process Unspecified. EDMS 16:45 No provider procedures requiring assistance completed. IV discontinued, intact, jl7 bleeding controlled, No redness/swelling at site. Pressure dressing applied. Administered Medications: 04:04 Drug: Zofran 4 mg Route: IVP; Site: right antecubital; jl7 14:16 Follow up: Response: No adverse reaction jl7 14:06 Drug: morphine 4 mg Route: IVP; Site: right antecubital; jl7 14:16 Follow up: Response: No adverse reaction; Pain is decreased jl7 Outcome: 16:00 Discharge ordered by . ma2 16:45 Discharged to home ambulatory, with friend. jl7 16:45 Condition: stable 16:45 Discharge instructions given to patient, family, Instructed on discharge instructions, follow up and referral plans. Demonstrated understanding of instructions, follow-up care. 16:49 Patient left the ED. eb Signatures: Dispatcher [employer] EDMS Ping Evans RN RN tw2 Norberto Leo, GUME RN jl7 Eliazar Villegas MD MD gaRacheal Joaquin
--- NOTE | 2019-03-03 16:02 | EDPHYS ---
Physician Documentation [facility] [place] Name: Elva Jenkins Age: 88 yrs Sex: Female : 1930 Arrival Date: 03/03/2019 Time: 13:43 Bed 2 Private MD: ED Physician Eliazar Villegas HPI: 03/03 15:22 This 88 yrs old Female presents to ER via EMS with complaints of right hip ma2 apin. 15:22 The complaints affect the right leg. Onset: The symptoms/episode began/occurred ma2 gradually, 3 day(s) ago. Associated signs and symptoms: Pertinent negatives: abdominal pain, diarrhea, dizziness, dysuria. Severity of symptoms: At their worst the symptoms were mild, in the emergency department the symptoms are unchanged. The patient has not experienced similar symptoms in the past. Historical: - Allergies: 13:54 Asacol; jl7 13:54 Humira; jl7 13:54 Methotrexate; jl7 13:54 Orencia; jl7 13:54 Phenergan; jl7 13:54 Sulfazine; jl7 - Home Meds: 13:54 Symbicort 160-4.5 mcg/actuation inhalation HFAA 2 puffs 2 times per day [Active]; jl7 levothyroxine 50 mcg tab 1 tab once daily [Active]; albuterol sulfate 2.5 mg /3 mL (0.083 %) Inhl nebu 3 mL 3 times per day [Active]; albuterol sulfate 90 mcg/actuation Inhl HFAA 2 puffs every 6 hours [Active]; atorvastatin 40 mg Oral tab 1 tab once daily [Active]; benzonatate 200 mg Oral cap 1 cap 3 times per day [Active]; famotidine 20 mg Oral tab 1 tab once daily [Active]; melatonin 3 mg Oral tab 2 tab nightly [Active]; paroxetine HCl 40 mg Oral tab 1 tab once daily [Active]; prednisone 5 mg Oral tab 2 tabs once daily [Active]; Spiriva with HandiHaler 18 mcg inhalation CpDv 1 cap once daily [Active]; - PMHx: 13:54 Arthritis; COPD; Depression; GERD; Hyperlipidemia; Hypothyroidism; jl7 - Immunization history:: Adult Immunizations up to date. - Social history:: Smoking status: Patient/guardian denies using tobacco, Patient/guardian denies using alcohol, street drugs, The patient lives with family. - Ebola Screening: : No symptoms or risks identified at this time. - Family history:: not pertinent. ROS: 15:22 Constitutional: Negative for fever, chills, and weight loss. ma2 15:22 All other systems are negative. Exam: 15:22 Constitutional: This is a well developed, well nourished patient who is awake, alert, ma2 and in no acute distress. Chest/axilla: Normal chest wall appearance and motion. Nontender with no deformity. No lesions are appreciated. Cardiovascular: Regular rate and rhythm with a normal S1 and S2. No gallops, murmurs, or rubs. Normal PMI, no JVD. No pulse deficits. Respiratory: Lungs have equal breath sounds bilaterally, clear to auscultation and percussion. No rales, rhonchi or wheezes noted. No increased work of breathing, no retractions or nasal flaring. Abdomen/GI: Soft, non-tender, with normal bowel sounds. No distension or tympany. No guarding or rebound. No evidence of tenderness throughout. MS/ Extremity: Pulses equal, no cyanosis. Neurovascular intact. Full, normal range of motion. Neuro: Awake and alert, GCS 15, oriented to person, place, time, and situation. Cranial nerves II-XII grossly intact. Motor strength 5/5 in all extremities. Sensory grossly intact. Cerebellar exam normal. Normal gait. 15:22 Back: No spinal tenderness. No costovertebral tenderness. Full range of motion. ma2 Vital Signs: 13:54 BP 146 / 65; Pulse 75; Resp 19 S; Temp 97.8(O); Pulse Ox 97% on R/A; jl7 15:21 BP 155 / 80; Pulse 79; Resp 17; Pulse Ox 95% on R/A; tw2 MDM: 13:45 Patient medically screened. ma2 15:22 Differential diagnosis: hip fracture, bursitis, arthritis, strain. Data reviewed: vital ma2 signs, nurses notes. Counseling: I had a detailed discussion with the patient and/or guardian regarding: the historical points, exam findings, and any diagnostic results supporting the discharge/admit diagnosis, the presence of at least one elevated blood pressure reading (>120/80) during this emergency department visit, radiology results, the need for outpatient follow up. Response to treatment: the patient's symptoms have markedly improved after treatment. 03/03 13:47 Order name: Hip Right 2 View XRAY; Complete Time: 16:00 ma2 Administered Medications: 04:04 Drug: Zofran 4 mg Route: IVP; Site: right antecubital; jl7 14:16 Follow up: Response: No adverse reaction medical center clinic 14:06 Drug: morphine 4 mg Route: IVP; Site: right antecubital; 7 14:16 Follow up: Response: No adverse reaction; Pain is decreased 7 Disposition: 03/03/19 16:00 Discharged to Home. Impression: Pain in right hip. - Condition is Stable. - Discharge Instructions: Arthritis. - Medication Reconciliation Form, Thank You Letter, Antibiotic Education, Prescription Opioid Use form. - Follow up: Private Physician; When: Tomorrow; Reason: Continuance of care. Signatures: Dispatcher [employer] Norberto Gallo RN RN jl7 Eliazar Villegas MD MD ma2 Racheal Tejeda Corrections: (The following items were deleted from the chart) 16:49 16:00 03/03/2019 16:00 Discharged to Home. Impression: Pain in right hip. Condition is eb Stable. Forms are Medication Reconciliation Form, Thank You Letter, Antibiotic Education, Prescription Opioid Use. Follow up: Private Physician; When: Tomorrow; Reason: Continuance of care. ne2
[2019-03-03 18:47] VITALS: TEMP 97.8
[2019-03-03 18:48] VITALS: BP 155/80; O2SAT 95
== END 2019-03-03 16:49 | disposition home or self-care (01) ==
LOC: ER 13:41
DX: M25.551 Pain in right hip (principal); Z88.8 Allergy status to other drugs, medicaments and biological substances; J44.9 Chronic obstructive pulmonary disease, unspecified; K21.9 Gastro-esophageal reflux disease without esophagitis; E78.5 Hyperlipidemia, unspecified; E03.9 Hypothyroidism, unspecified
CPT/HCPCS: 73502; 96375; 96374; 99284; J2405

== ENCOUNTER 2019-03-05 09:03 | Emergency (ER) | payer OTHER ==
--- OUTSIDE RECORDS SUMMARY | 2019-03-05 09:06 | XMS REPORT ---
:1930 [facility] Address [address] [place] [address] Dr. Marsh [address] [place] [id number] Care Team Providers Name Role Phone KIM MCKEON ZARI Unavailable Unavailable RICARDO WILSON Unavailable Unavailable Problems This patient has no known problems. Allergies, Adverse Reactions, Alerts This patient has no known allergies or adverse reactions. Medications This patient has no known medications. Results Test Description Test Time Test Comments Text Results Atomic Results Result Comments TISSUE EXAM 2017-09-20 16:22:00 Surgical Pathology Report Case: [id number] Authorizing Provider: Misha Calloway MD Collected: 09/16/2017 1538 Ordering Location: [address] Received: 09/19/2017 0820 Service Pathologist: Larry Cohn MD Specimen: Polyp, Colon - Rectosigmoid, POLYP TAKEN BY HOT SNARE RECTO-SIGMOID, POLYPECTOMY- TUBULAR ADENOMA- CAUTERIZED EDGE, NEGATIVE FOR ADENOMATOUS CHANGE Signing Pathologist Direct Phone Line: [phone] signed by Larry Cohn MD on 09/20/2017 at 4:22 [id number] bleedRectosigmoid colon polypThe specimen is received in [...] Value Reference Range Comments MAGNESIUM (BEAKER) (test lyah=902) 1.9 mg/dL 1.6-2.6 BASIC METABOLIC [id number] 07:32:00 Test Item Value Reference Range Comments SODIUM (BEAKER) (test 138 meq/L 136-145 jssz=393) POTASSIUM (BEAKER) (test 4.2 meq/L 3.5-5.1 qdvb=904) CHLORIDE (BEAKER) (test 106 meq/L 98-107 dtnw=788) CO2 (BEAKER) (test 25 meq/L 22-29 ogle=844) BLOOD UREA NITROGEN 6 mg/dL 7-21 (BEAKER) (test ntyj=138) CREATININE (BEAKER) (test 0.66 mg/dL 0.57-1.25 hpof=116) GLUCOSE RANDOM (BEAKER) 76 mg/dL 70-105 (test njir=827) CALCIUM (BEAKER) (test 8.4 mg/dL 8.4-10.2 lhgh=207) EGFR (BEAKER) (test 85 mL/min/1.73 sq m ESTIMATED GFR IS NOT gogd=5462) ACCURATE CREATININE CLEARANCE IN PREDICTING GLOMERULAR FILTRATION RATE. ESTIMATED GFR IS NOT APPLICABLE FOR DIALYSIS PATIENTS. [id number] 06:42:00 Test Item Value Reference Range Comments PROTIME (BEAKER) (test cckp=889) 20.8 seconds 11.7-14.7 INR (BEAKER) (test hqyv=300) 1.8 <=5.9 PARTIAL THROMBOPLASTIN TIME (BEAKER) (test 36.1 seconds 22.5-36.0 fbvu=114) RECOMMENDED COUMADIN/WARFARIN INR THERAPY RANGESSTANDARD DOSE: 2.0 - 3.0 Includes: PROPHYLAXIS forvenous thrombosis, systemic embolization; TREATMENT for venous thrombosis and/or pulmonary embolus.HIGH RISK: Target INR is 2.5-3.5 for patients with mechanical heart valves.CBC W/PLT COUNT & AUTO [id number] 06:41:00 Test Item Value Reference Range Comments WHITE BLOOD CELL COUNT (BEAKER) (test qsbj=324) 5.5 K/ L 3.5-10.5 RED BLOOD CELL COUNT (BEAKER) (test aiwk=708) 3.52 M/ L 3.93-5.22 HEMOGLOBIN (BEAKER) (test ymeh=841) 10.4 GM/DL 11.2-15.7 HEMATOCRIT (BEAKER) (test weuv=453) 33.1 % 34.1-44.9 MEAN CORPUSCULAR VOLUME (BEAKER) (test blyz=566) 94.0 fL 79.4-94.8 MEAN CORPUSCULAR HEMOGLOBIN (BEAKER) (test 29.5 pg 25.6-32.2 dvge=911) MEAN CORPUSCULAR HEMOGLOBIN CONC (BEAKER) (test 31.4 GM/DL 32.2-35.5 mtne=197) RED CELL DISTRIBUTION WIDTH (BEAKER) (test 19.8 % 11.7-14.4 lxxg=295) PLATELET COUNT (BEAKER) (test djxi=247) 240 K/CU MM 150-450 MEAN PLATELET VOLUME (BEAKER) (test rxtn=710) 8.5 fL 9.4-12.3 NUCLEATED RED BLOOD CELLS (BEAKER) (test 0 /100 WBC 0-0 jnmc=828) NEUTROPHILS RELATIVE PERCENT (BEAKER) (test 43 % xswf=793) LYMPHOCYTES RELATIVE PERCENT (BEAKER) (test 49 % gfrf=744) MONOCYTES RELATIVE PERCENT (BEAKER) (test 7 % vxot=232) EOSINOPHILS RELATIVE PERCENT (BEAKER) (test 1 % ndyj=288) BASOPHILS RELATIVE PERCENT (BEAKER) (test 0 % pbrc=172) NEUTROPHILS ABSOLUTE COUNT (BEAKER) (test 2.34 K/ L 1.56-6.13 svsi=050) LYMPHOCYTES ABSOLUTE COUNT (BEAKER) (test 2.68 K/ L 1.18-3.74 jvwd=273) MONOCYTES ABSOLUTE COUNT (BEAKER) (test 0.38 K/ L 0.24-0.36 wjxw=325) EOSINOPHILS ABSOLUTE COUNT (BEAKER) (test 0.05 K/ L 0.04-0.36 zlwv=968) BASOPHILS ABSOLUTE COUNT (BEAKER) (test 0.02 K/ L 0.01-0.08 myib=175) IMMATURE GRANULOCYTES-RELATIVE PERCENT (BEAKER) 0 % 0-1 (test jszl=9258) [id number] 19:07:00 Test Item Value Reference Range Comments MAGNESIUM (BEAKER) (test lchs=627) 1.9 mg/dL 1.6-2.6 BASIC METABOLIC [id number] 19:07:00 Test Item Value Reference Range Comments SODIUM (BEAKER) (test 137 meq/L 136-145 cfls=320) POTASSIUM (BEAKER) (test 3.8 meq/L 3.5-5.1 lwwn=520) CHLORIDE (BEAKER) (test 106 meq/L 98-107 jatx=328) CO2 (BEAKER) (test 23 meq/L 22-29 kwob=492) BLOOD UREA NITROGEN 6 mg/dL 7-21 (BEAKER) (test cpjn=609) CREATININE (BEAKER) (test 0.64 mg/dL 0.57-1.25 jwvt=530) GLUCOSE RANDOM (BEAKER) 82 mg/dL 70-105 (test gwzs=435) CALCIUM (BEAKER) (test 8.5 mg/dL 8.4-10.2 xbhw=942) EGFR (BEAKER) (test 88 mL/min/1.73 sq m ESTIMATED GFR IS NOT gfax=8357) ACCURATE CREATININE CLEARANCE IN PREDICTING GLOMERULAR FILTRATION RATE. ESTIMATED GFR IS NOT APPLICABLE FOR DIALYSIS PATIENTS. CBC (HEMOGRAM ONLY)2017-09-16 18:38:00 Test Item Value Reference Range Comments WHITE BLOOD CELL COUNT (BEAKER) (test aukj=662) 6.5 K/ L 3.5-10.5 RED BLOOD CELL COUNT (BEAKER) (test nuoi=913) 3.61 M/ L 3.93-5.22 HEMOGLOBIN (BEAKER) (test urvi=131) 10.9 GM/DL 11.2-15.7 HEMATOCRIT (BEAKER) (test ovmz=295) 33.5 % 34.1-44.9 MEAN CORPUSCULAR VOLUME (BEAKER) (test xhfq=440) 92.8 fL 79.4-94.8 MEAN CORPUSCULAR HEMOGLOBIN (BEAKER) (test 30.2 pg 25.6-32.2 irnj=554) MEAN CORPUSCULAR HEMOGLOBIN CONC (BEAKER) (test 32.5 GM/DL 32.2-35.5 vztj=967) RED CELL DISTRIBUTION WIDTH (BEAKER) (test 19.8 % 11.7-14.4 slba=442) PLATELET COUNT (BEAKER) (test jcjd=422) 239 K/CU MM 150-450 MEAN PLATELET VOLUME (BEAKER) (test bhkz=341) 8.7 fL 9.4-12.3 NUCLEATED RED BLOOD CELLS (BEAKER) (test 0 /100 WBC 0-0 shll=185) [id number] 06:56:00 Test Item Value Reference Range Comments PHOSPHORUS (BEAKER) (test jgsl=043) 2.7 mg/dL 2.3-4.7 [id number] 06:56:00 Test Item Value Reference Range Comments MAGNESIUM (BEAKER) (test nefc=224) 1.9 mg/dL 1.6-2.6 BASIC METABOLIC [id number] 06:56:00 Test Item Value Reference Range Comments SODIUM (BEAKER) (test 139 meq/L 136-145 notu=818) POTASSIUM (BEAKER) (test 4.1 meq/L 3.5-5.1 bpdb=492) CHLORIDE (BEAKER) (test 107 meq/L 98-107 blrn=473) CO2 (BEAKER) (test 26 meq/L 22-29 mjwu=476) BLOOD UREA NITROGEN 11 mg/dL 7-21 (BEAKER) (test jpnl=224) CREATININE (BEAKER) (test 0.73 mg/dL 0.57-1.25 ajys=687) GLUCOSE RANDOM (BEAKER) 107 mg/dL 70-105 (test csog=859) CALCIUM (BEAKER) (test 8.5 mg/dL 8.4-10.2 qqed=273) EGFR (BEAKER) (test 76 mL/min/1.73 sq m ESTIMATED GFR IS NOT qbfo=2274) ACCURATE CREATININE CLEARANCE IN PREDICTING GLOMERULAR FILTRATION RATE. ESTIMATED GFR IS NOT APPLICABLE FOR DIALYSIS PATIENTS. HEPATIC FUNCTION [id number] 06:56:00 Test Item Value Reference Range Comments TOTAL PROTEIN (BEAKER) (test ollo=811) 5.2 gm/dL 6.0-8.3 ALBUMIN (BEAKER) (test mmlo=7857) 2.9 g/dL 3.5-5.0 BILIRUBIN TOTAL (BEAKER) (test frcb=020) 0.8 mg/dL 0.2-1.2 BILIRUBIN DIRECT (BEAKER) (test qrer=383) 0.4 mg/dL 0.1-0.5 ALKALINE PHOSPHATASE (BEAKER) (test bhci=544) 43 U/L 40-150 AST (SGOT) (BEAKER) (test lznd=979) 13 U/L 5-34 ALT (SGPT) (BEAKER) (test azuk=437) 10 U/L 6-55 CALCIUM, [id number] 06:36:00 Test Item Value Reference Range Comments CALCIUM IONIZED (BEAKER) (test svcb=257) 1.05 mmol/L 1.12-1.27 PH, BLOOD (BEAKER) (test wbat=4268) 7.46 PROTHROMBIN [id number] 06:35:00 Test Item Value Reference Range Comments PROTIME (BEAKER) (test raqh=226) 14.2 seconds 11.7-14.7 INR (BEAKER) (test ssqq=427) 1.1 <=5.9 RECOMMENDED COUMADIN/WARFARIN INR THERAPY RANGESSTANDARD DOSE: 2.0 - 3.0 Includes: PROPHYLAXIS forvenous thrombosis, systemic embolization; TREATMENT for venous thrombosis and/or pulmonary embolus.HIGH RISK: Target INR is 2.5-3.5 for patients with mechanical heart valves.CBC W/PLT COUNT & AUTO [id number] 06:25:00 Test Item Value Reference Range Comments WHITE BLOOD CELL COUNT (BEAKER) (test hplc=292) 9.4 K/ L 3.5-10.5 RED BLOOD CELL COUNT (BEAKER) (test tsgp=008) 3.48 M/ L 3.93-5.22 HEMOGLOBIN (BEAKER) (test wdhh=054) 10.0 GM/DL 11.2-15.7 HEMATOCRIT (BEAKER) (test fabh=565) 31.1 % 34.1-44.9 MEAN CORPUSCULAR VOLUME (BEAKER) (test zlca=877) 89.4 fL 79.4-94.8 MEAN CORPUSCULAR HEMOGLOBIN (BEAKER) (test 28.7 pg 25.6-32.2 pyia=228) MEAN CORPUSCULAR HEMOGLOBIN CONC (BEAKER) (test 32.2 GM/DL 32.2-35.5 fgru=117) RED CELL DISTRIBUTION WIDTH (BEAKER) (test 18.3 % 11.7-14.4 jclq=974) PLATELET COUNT (BEAKER) (test khfn=106) 234 K/CU MM 150-450 MEAN PLATELET VOLUME (BEAKER) (test pshz=781) 8.9 fL 9.4-12.3 NUCLEATED RED BLOOD CELLS (BEAKER) (test 0 /100 WBC 0-0 xycx=243) NEUTROPHILS RELATIVE PERCENT (BEAKER) (test 70 % fzrx=247) LYMPHOCYTES RELATIVE PERCENT (BEAKER) (test 24 % edzi=027) MONOCYTES RELATIVE PERCENT (BEAKER) (test 5 % fvrq=719) EOSINOPHILS RELATIVE PERCENT (BEAKER) (test 0 % cgqp=073) BASOPHILS RELATIVE PERCENT (BEAKER) (test 0 % rotr=625) NEUTROPHILS ABSOLUTE COUNT (BEAKER) (test 6.54 K/ L 1.56-6.13 nysb=058) LYMPHOCYTES ABSOLUTE COUNT (BEAKER) (test 2.30 K/ L 1.18-3.74 jgky=448) MONOCYTES ABSOLUTE COUNT (BEAKER) (test 0.50 K/ L 0.24-0.36 zfwc=188) EOSINOPHILS ABSOLUTE COUNT (BEAKER) (test 0.03 K/ L 0.04-0.36 hbfk=968) BASOPHILS ABSOLUTE COUNT (BEAKER) (test 0.02 K/ L 0.01-0.08 xbka=580) IMMATURE GRANULOCYTES-RELATIVE PERCENT (BEAKER) 0 % 0-1 (test ahyl=4275) TISSUE [id number] 14:52:00Surgical Pathology Report Case: [id number] Authorizing Provider: Ricardo Wilson MD Collected: 08/02/2017 1715 Ordering Location: [facility] Endoscopy Received: 08/03/2017 0837 Services Pathologist: Larry Cohn MD Specimen: Rectal, MASS- TAKEN BY ESD, ON WAX, EVALUATE MARGINS RECTAL, 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)- NEGATIVE FOR HIGH GRADE DYSPLASIA OR CARCINOMA- PERIPHERAL MARGINS, NEGATIVE FOR ADENOMATOUS CHANGE Signing Pathologist Direct Phone Line: [phone] signed by Larry Cohn MD on 08/04/2017 at 2:52 [id number] polyp Rectal mass Received in formalin labeled [...] the diagnostic line.CBC W/PLT COUNT & AUTO [id number] 06:19:00 Test Item Value Reference Range Comments WHITE BLOOD CELL COUNT (BEAKER) (test mgma=315) 15.6 K/ L 3.5-10.5 RED BLOOD CELL COUNT (BEAKER) (test ljed=331) 3.50 M/ L 3.93-5.22 HEMOGLOBIN (BEAKER) (test yixh=862) 9.9 GM/DL 11.2-15.7 HEMATOCRIT (BEAKER) (test oeji=319) 31.4 % 34.1-44.9 MEAN CORPUSCULAR VOLUME (BEAKER) (test xffa=687) 89.7 fL 79.4-94.8 MEAN CORPUSCULAR HEMOGLOBIN (BEAKER) (test 28.3 pg 25.6-32.2 hdmn=473) MEAN CORPUSCULAR HEMOGLOBIN CONC (BEAKER) (test 31.5 GM/DL 32.2-35.5 bieg=374) RED CELL DISTRIBUTION WIDTH (BEAKER) (test 18.0 % 11.7-14.4 fzns=072) PLATELET COUNT (BEAKER) (test vnsw=412) 223 K/CU MM 150-450 MEAN PLATELET VOLUME (BEAKER) (test pjre=225) 8.7 fL 9.4-12.3 NUCLEATED RED BLOOD CELLS (BEAKER) (test 0 /100 WBC 0-0 ugex=229) NEUTROPHILS RELATIVE PERCENT (BEAKER) (test 81 % wctf=860) LYMPHOCYTES RELATIVE PERCENT (BEAKER) (test 15 % iauz=293) MONOCYTES RELATIVE PERCENT (BEAKER) (test 4 % lnfk=452) EOSINOPHILS RELATIVE PERCENT (BEAKER) (test 0 % sduu=348) BASOPHILS RELATIVE PERCENT (BEAKER) (test 0 % hzfh=098) NEUTROPHILS ABSOLUTE COUNT (BEAKER) (test 12.56 K/ L 1.56-6.13 eqyp=471) LYMPHOCYTES ABSOLUTE COUNT (BEAKER) (test 2.36 K/ L 1.18-3.74 hpzi=082) MONOCYTES ABSOLUTE COUNT (BEAKER) (test 0.56 K/ L 0.24-0.36 awsr=607) EOSINOPHILS ABSOLUTE COUNT (BEAKER) (test 0.03 K/ L 0.04-0.36 frdo=993) BASOPHILS ABSOLUTE COUNT (BEAKER) (test 0.02 K/ L 0.01-0.08 iycf=098) IMMATURE GRANULOCYTES-RELATIVE PERCENT (BEAKER) 0 % 0-1 (test uyzt=7300) HEPATIC FUNCTION [id number] 06:15:00 Test Item Value Reference Range Comments TOTAL PROTEIN (BEAKER) (test peoc=039) 4.9 gm/dL 6.0-8.3 ALBUMIN (BEAKER) (test ehmy=2125) 2.8 g/dL 3.5-5.0 BILIRUBIN TOTAL (BEAKER) (test ufpf=044) 1.1 mg/dL 0.2-1.2 BILIRUBIN DIRECT (BEAKER) (test jhuk=100) 0.5 mg/dL 0.1-0.5 ALKALINE PHOSPHATASE (BEAKER) (test ummw=779) 42 U/L 40-150 AST (SGOT) (BEAKER) (test wxbg=268) 15 U/L 5-34 ALT (SGPT) (BEAKER) (test ivmw=018) 12 U/L 6-55 BASIC METABOLIC [id number] 06:15:00 Test Item Value Reference Range Comments SODIUM (BEAKER) (test 139 meq/L 136-145 eynk=504) POTASSIUM (BEAKER) (test 4.6 meq/L 3.5-5.1 bdbk=753) CHLORIDE (BEAKER) (test 108 meq/L 98-107 wfly=800) CO2 (BEAKER) (test 25 meq/L 22-29 owmq=177) BLOOD UREA NITROGEN 13 mg/dL 7-21 (BEAKER) (test wmku=055) CREATININE (BEAKER) (test 0.73 mg/dL 0.57-1.25 rhih=905) GLUCOSE RANDOM (BEAKER) 115 mg/dL 70-105 (test aalk=575) CALCIUM (BEAKER) (test 8.5 mg/dL 8.4-10.2 czyc=995) EGFR (BEAKER) (test 76 mL/min/1.73 sq m ESTIMATED GFR IS NOT esqd=5737) ACCURATE CREATININE CLEARANCE IN PREDICTING GLOMERULAR FILTRATION RATE. ESTIMATED GFR IS NOT APPLICABLE FOR DIALYSIS PATIENTS. PROTHROMBIN [id number] 05:59:00 Test Item Value Reference Range Comments PROTIME (BEAKER) (test dmrt=947) 14.6 seconds 11.7-14.7 INR (BEAKER) (test rgkp=990) 1.1 <=5.9 RECOMMENDED COUMADIN/WARFARIN INR THERAPY RANGESSTANDARD DOSE: 2.0 - 3.0 Includes: PROPHYLAXIS forvenous thrombosis, systemic embolization; TREATMENT for venous thrombosis and/or pulmonary embolus.HIGH RISK: Target INR is 2.5-3.5 for patients with mechanical heart valves.URINALYSIS W/ [id number] 14 :53:00 Test Item Value Reference Range Comments COLOR (BEAKER) (test dnhi=385) Yellow CLARITY (BEAKER) (test uqto=137) Clear SPECIFIC GRAVITY UA (BEAKER) (test ufxq=080) 1.010 1.001-1.035 PH UA (BEAKER) (test itha=443) 5.5 5.0-8.0 PROTEIN UA (BEAKER) (test rueu=061) Negative Negative GLUCOSE UA (BEAKER) (test tjgt=318) Negative Negative KETONES UA (BEAKER) (test adct=347) Trace Negative BILIRUBIN UA (BEAKER) (test kuof=427) Negative Negative BLOOD UA (BEAKER) (test agxp=394) Negative Negative NITRITE UA (BEAKER) (test ayed=405) Negative Negative LEUKOCYTE ESTERASE UA (BEAKER) (test bwgn=476) Negative Negative UROBILINOGEN UA (BEAKER) (test qrtz=794) 0.2 mg/dL 0.2-1.0 RBC UA (BEAKER) (test wbgk=636) 1 /HPF WBC UA (BEAKER) (test cips=325) 3 /HPF MUCUS (BEAKER) (test prbq=4934) Few SQUAMOUS EPITHELIAL (BEAKER) (test oxje=581) < /HPF HYALINE CASTS (BEAKER) (test udym=666) 2 /LPF SOURCE(BEAKER) (test lvpg=3764) HEPATIC FUNCTION [id number] 06:31:00 Test Item Value Reference Range Comments TOTAL PROTEIN (BEAKER) (test xzrt=207) 5.2 gm/dL 6.0-8.3 ALBUMIN (BEAKER) (test popi=5216) 3.1 g/dL 3.5-5.0 BILIRUBIN TOTAL (BEAKER) (test codo=030) 1.1 mg/dL 0.2-1.2 BILIRUBIN DIRECT (BEAKER) (test jykk=701) 0.5 mg/dL 0.1-0.5 ALKALINE PHOSPHATASE (BEAKER) (test spgn=609) 47 U/L 40-150 AST (SGOT) (BEAKER) (test dlee=905) 20 U/L 5-34 ALT (SGPT) (BEAKER) (test egmg=199) 15 U/L 6-55 BASIC METABOLIC [id number] 06:31:00 Test Item Value Reference Range Comments SODIUM (BEAKER) (test 139 meq/L 136-145 akca=708) POTASSIUM (BEAKER) (test 2.7 meq/L 3.5-5.1 jhaj=012) CHLORIDE (BEAKER) (test 106 meq/L 98-107 fdkd=632) CO2 (BEAKER) (test 24 meq/L 22-29 qfha=836) BLOOD UREA NITROGEN 7 mg/dL 7-21 (BEAKER) (test spnr=358) CREATININE (BEAKER) (test 0.61 mg/dL 0.57-1.25 xkua=651) GLUCOSE RANDOM (BEAKER) 88 mg/dL 70-105 (test fjil=380) CALCIUM (BEAKER) (test 8.4 mg/dL 8.4-10.2 hmdi=071) EGFR (BEAKER) (test 93 mL/min/1.73 sq m ESTIMATED GFR IS NOT kowg=4425) ACCURATE CREATININE CLEARANCE IN PREDICTING GLOMERULAR FILTRATION RATE. ESTIMATED GFR IS NOT APPLICABLE FOR DIALYSIS PATIENTS. BASIC METABOLIC [id number] 06:30:00 Test Item Value Reference Range Comments SODIUM (BEAKER) (test 136 meq/L 136-145 nwhg=042) POTASSIUM (BEAKER) (test 3.0 meq/L 3.5-5.1 Specimen slightly xrll=684) hemolyzed CHLORIDE (BEAKER) (test 106 meq/L 98-107 wymx=728) CO2 (BEAKER) (test 20 meq/L 22-29 lazg=365) BLOOD UREA NITROGEN 7 mg/dL 7-21 (BEAKER) (test pehd=153) CREATININE (BEAKER) (test 0.61 mg/dL 0.57-1.25 Specimen slightly grxg=754) hemolyzed GLUCOSE RANDOM (BEAKER) 81 mg/dL 70-105 (test pykv=187) CALCIUM (BEAKER) (test 8.2 mg/dL 8.4-10.2 recp=056) EGFR (BEAKER) (test 93 mL/min/1.73 sq m ESTIMATED GFR IS NOT kwxd=5128) ACCURATE CREATININE CLEARANCE IN PREDICTING GLOMERULAR FILTRATION RATE. ESTIMATED GFR IS NOT APPLICABLE FOR DIALYSIS PATIENTS. CBC W/PLT COUNT & AUTO [id number] 06:25:00 Test Item Value Reference Range Comments WHITE BLOOD CELL COUNT (BEAKER) (test gvfx=406) 14.6 K/ L 3.5-10.5 RED BLOOD CELL COUNT (BEAKER) (test dvog=229) 3.75 M/ L 3.93-5.22 HEMOGLOBIN (BEAKER) (test htgp=340) 10.5 GM/DL 11.2-15.7 HEMATOCRIT (BEAKER) (test xrcj=483) 33.1 % 34.1-44.9 MEAN CORPUSCULAR VOLUME (BEAKER) (test bckf=892) 88.3 fL 79.4-94.8 MEAN CORPUSCULAR HEMOGLOBIN (BEAKER) (test 28.0 pg 25.6-32.2 hgpc=701) MEAN CORPUSCULAR HEMOGLOBIN CONC (BEAKER) (test 31.7 GM/DL 32.2-35.5 pqpx=816) RED CELL DISTRIBUTION WIDTH (BEAKER) (test 17.5 % 11.7-14.4 ipzg=822) PLATELET COUNT (BEAKER) (test ambd=491) 246 K/CU MM 150-450 MEAN PLATELET VOLUME (BEAKER) (test injt=062) 8.9 fL 9.4-12.3 NUCLEATED RED BLOOD CELLS (BEAKER) (test 0 /100 WBC 0-0 bbwc=713) NEUTROPHILS RELATIVE PERCENT (BEAKER) (test 88 % zwdn=067) LYMPHOCYTES RELATIVE PERCENT (BEAKER) (test 5 % caxy=931) MONOCYTES RELATIVE PERCENT (BEAKER) (test 6 % balu=884) EOSINOPHILS RELATIVE PERCENT (BEAKER) (test 0 % fgku=614) BASOPHILS RELATIVE PERCENT (BEAKER) (test 0 % xvtb=331) NEUTROPHILS ABSOLUTE COUNT (BEAKER) (test 12.85 K/ L 1.56-6.13 bawu=202) LYMPHOCYTES ABSOLUTE COUNT (BEAKER) (test 0.71 K/ L 1.18-3.74 shsm=885) MONOCYTES ABSOLUTE COUNT (BEAKER) (test 0.94 K/ L 0.24-0.36 ebkp=775) EOSINOPHILS ABSOLUTE COUNT (BEAKER) (test 0.00 K/ L 0.04-0.36 mwfy=001) BASOPHILS ABSOLUTE COUNT (BEAKER) (test 0.02 K/ L 0.01-0.08 mlly=586) IMMATURE GRANULOCYTES-RELATIVE PERCENT (BEAKER) 1 % 0-1 (test afqh=4490) PROTHROMBIN [id number] 06:21:00 Test Item Value Reference Range Comments PROTIME (BEAKER) (test pcwn=358) 13.5 seconds 11.7-14.7 INR (BEAKER) (test vvgp=677) 1.0 <=5.9 RECOMMENDED COUMADIN/WARFARIN INR THERAPY RANGESSTANDARD DOSE: 2.0 - 3.0 Includes: PROPHYLAXIS forvenous thrombosis, systemic embolization; TREATMENT for venous thrombosis and/or pulmonary embolus.HIGH RISK: Target INR is 2.5-3.5 for patients with mechanical heart valves.
[2019-03-05] MEDS ORDERED: DIAZEPAM 5 MG TABLET ONE (09:19)
[2019-03-05] MEDS ORDERED: MORPHINE 4 MG/ML SYR ONE ×2 (09:20→11:13)
[2019-03-05] MEDS ORDERED: ONDANSETRON 4 MG (ODT) TAB ONE ×2 (09:20→11:13)
--- NOTE | 2019-03-05 12:23 | ER ---
Nurse's Notes [facility] Name: Elva Jenkins Age: 88 yrs Sex: Female : 1930 Arrival Date: 03/05/2019 Time: 09:07 Bed 14 Private MD: Diagnosis: Low back pain;Muscle spasm of back Presentation: 03/05 09:12 Presenting complaint: Patient states: R low back pain that radiates down R leg x 2 ss months. Pt reports she has been seen multiple times in the ER and has followed up with Dr. Pollock. Son reports that patient needs an MRI because Dr. Pollock says she has a pinched nerve and the pain medications are only a temporary fix. Transition of care: patient was not received from another setting of care. Onset of symptoms was January 12, 2019. Risk Assessment: Do you want to hurt yourself or someone else? Patient reports no desire to harm self or others. Initial Sepsis Screen: Does the patient meet any 2 criteria? No. Patient's initial sepsis screen is negative. Does the patient have a suspected source of infection? No. Patient's initial sepsis screen is negative. Care prior to arrival: None. 09:12 Method Of Arrival: Ambulatory ss 09:12 Acuity: TAVON 4 ss Historical: - Allergies: 09:17 Asacol; ss 09:17 Humira; ss 09:17 Methotrexate; ss 09:17 Orencia; ss 09:17 Phenergan; ss 09:17 Sulfazine; ss - Home Meds: 09:17 albuterol sulfate 2.5 mg /3 mL (0.083 %) Inhl nebu 3 mL 3 times per day [Active]; ss albuterol sulfate 90 mcg/actuation Inhl HFAA 2 puffs every 6 hours [Active]; atorvastatin 40 mg Oral tab 1 tab once daily [Active]; benzonatate 200 mg Oral cap 1 cap 3 times per day [Active]; famotidine 20 mg Oral tab 1 tab once daily [Active]; levothyroxine 50 mcg tab 1 tab once daily [Active]; melatonin 3 mg Oral tab 2 tab nightly [Active]; paroxetine HCl 40 mg Oral tab 1 tab once daily [Active]; prednisone 5 mg Oral tab 2 tabs once daily [Active]; Spiriva with HandiHaler 18 mcg inhalation CpDv 1 cap once daily [Active]; Symbicort 160-4.5 mcg/actuation inhalation HFAA 2 puffs 2 times per day [Active]; - PMHx: 09:17 Arthritis; Depression; COPD; GERD; Hyperlipidemia; Hypothyroidism; ss - Immunization history:: Adult Immunizations up to date. - Social history:: Smoking status: Patient/guardian denies using tobacco, Patient/guardian denies using alcohol, street drugs, The patient lives with family. - Ebola Screening: : Patient denies exposure to infectious person Patient denies travel to an Ebola-affected area in the 21 days before illness onset. - Family history:: not pertinent. Screenin:30 Abuse screen: Denies threats or abuse. Denies injuries from another. Nutritional aj1 screening: No deficits noted. Tuberculosis screening: No symptoms or risk factors identified. 12:51 Fall Risk Fall in past 12 months (25 points). Secondary diagnosis (15 points) impaired aj1 mobility, No IV (0 pts). Ambulatory Aid- None/Bed Rest/Nurse Assist (0 pts). Gait- Impaired (20 pts.). Mental Status- Oriented to own ability (0 pts). Total Hutchinson Fall Scale indicates High Risk Score (45 or more points). Family Present and informed to notify staff if the need to leave the bedside As available patient and family educated on Fall Prevention Program and Strategies. Assessment: 09:20 General: Appears in no apparent distress. uncomfortable, Behavior is cooperative, sv appropriate for age, anxious. Pain: Complains of pain in back Pain radiates to right leg Pain currently is 10 out of 10 on a pain scale. Pain began over a month Is continuous, Aggravated by increased activity, repositioning, Current management is with Tylenol #3. Neuro: Level of Consciousness is awake, alert, obeys commands, Oriented to person, place, time, Appropriate for age Moves all extremities. Full function. Respiratory: Airway is patent Respiratory effort is even, unlabored, Respiratory pattern is regular, symmetrical. Derm: Skin is normal. 10:30 General: Appears in no apparent distress. comfortable, Behavior is calm, cooperative, aj1 appropriate for age. Pain: Complains of pain in back. Neuro: Level of Consciousness is awake, alert, obeys commands, Oriented to person, place, time, situation. Cardiovascular: Patient's skin is warm and dry. Respiratory: Airway is patent Respiratory effort is even, unlabored, Respiratory pattern is regular, symmetrical. GI: No signs and/or symptoms were reported involving the gastrointestinal system. : No signs and/or symptoms were reported regarding the genitourinary system. EENT: No signs and/or symptoms were reported regarding the EENT system. Derm: No signs and/or symptoms reported regarding the dermatologic system. Skin is pink, warm \T\ dry. normal. Musculoskeletal: Range of motion: intact in all extremities, Patient reports back pain, which is improved since she was medicated for pain. 11:05 Reassessment: Patient transported to MRI via stretcher. aj1 12:30 Reassessment: Patient appears in no apparent distress at this time. No changes from aj1 previously documented assessment. Patient and/or family updated on plan of care and expected duration. Pain level reassessed. Patient is alert, oriented x 3, equal unlabored respirations, skin warm/dry/pink. Vital Signs: 09:11 BP 183 / 90; Pulse 96; Resp 20; Temp 98.4(O); Pulse Ox 99% on R/A; Weight 50.35 kg; Height 4 ft. 11 in. (149.86 cm); Pain 10/10; 10:00 BP 149 / 82; Pulse 77; Resp 18; Temp 98.0(O); Pulse Ox 92% on R/A; mh5 11:13 BP 144 / 75; Pulse 78; Resp 18; Temp 98.1(O); Pulse Ox 93% ; mh5 12:50 BP 145 / 77; Pulse 72; Resp 18; Pulse Ox 97% on R/A; aj1 09:11 Body Mass Index 22.42 (50.35 kg, 149.86 cm) ED Course: 09:07 Patient arrived in ED. bd 09:07 Eliazar Villegas MD is Attending Physician. ma2 09:11 Arm band placed on right wrist. ss 09:15 Marylu Chris RN is Primary Nurse. sv 09:16 Triage completed. ss 10:05 Report given to Destiney DUNAWAY. sv 10:30 Patient has correct armband on for positive identification. aj1 10:30 No provider procedures requiring assistance completed. aj1 10:55 Destiney Byrd, RN is Primary Nurse. aj1 12:00 MRI Lumbar Spine wo Con In Process Unspecified. EDMS 12:00 Hip Right Wo Cont In Process Unspecified. EDMS 12:22 Gregor Paris MD is Referral Physician. ma2 12:34 Jean-Paul Wolfe DO is Referral Physician. ma2 12:52 Patient did not have IV access during this emergency room visit. aj1 Administered Medications: 09:27 Drug: morphine 4 mg Route: IM; Site: right deltoid; sv 10:00 Follow up: Response: No adverse reaction; No change in condition; RASS: Restless (+1) sv 09:27 Drug: Zofran 4 mg Route: PO; sv 10:00 Follow up: Response: No adverse reaction sv 09:27 Drug: Valium 5 mg Route: PO; sv 10:00 Follow up: Response: No adverse reaction sv 11:13 Drug: morphine 4 mg {Note: RASS score 0 patient is alert.} Route: IM; Site: right aj1 deltoid; 12:49 Follow up: Response: No adverse reaction; Pain is decreased; RASS: Alert and Calm (0) aj1 11:14 Drug: Zofran 4 mg Route: PO; aj1 12:49 Follow up: Response: No adverse reaction aj1 Outcome: 12:22 Discharge ordered by . ma2 12:52 Discharged to home via wheelchair. aj1 12:52 Condition: good 12:52 Discharge instructions given to patient, family, Instructed on discharge instructions, follow up and referral plans. no drinking with medication, no driving heavy equipment, medication usage, Demonstrated understanding of instructions, follow-up care, medications, Prescriptions given X 2. 12:53 Patient left the ED. aj1 Signatures: Dispatcher [employer] EDMS Saray Wilkerson Angela RN RN aj1 Marylu Chris RN RN sv Smirch, Shelby, RN RN ss Martinez, Maria Eliazar Jang MD MD wy2
--- NOTE | 2019-03-05 12:24 | EDPHYS ---
Physician Documentation [facility] Name: Elva Jenkins Age: 88 yrs Sex: Female : 1930 Arrival Date: 03/05/2019 Time: 09:07 Bed 14 Private MD: ED Physician Eliazar Villegas HPI: 03/05 12:19 This 88 yrs old Female presents to ER via Ambulatory with complaints of right ma2 hip pain . 12:19 Onset: The symptoms/episode began/occurred gradually, 1 day(s) ago. Severity of ma2 symptoms: At their worst the symptoms were moderate. The patient has not experienced similar symptoms in the past. Historical: - Allergies: 09:17 Asacol; ss 09:17 Humira; ss 09:17 Methotrexate; ss 09:17 Orencia; ss 09:17 Phenergan; ss 09:17 Sulfazine; ss - Home Meds: 09:17 albuterol sulfate 2.5 mg /3 mL (0.083 %) Inhl nebu 3 mL 3 times per day [Active]; ss albuterol sulfate 90 mcg/actuation Inhl HFAA 2 puffs every 6 hours [Active]; atorvastatin 40 mg Oral tab 1 tab once daily [Active]; benzonatate 200 mg Oral cap 1 cap 3 times per day [Active]; famotidine 20 mg Oral tab 1 tab once daily [Active]; levothyroxine 50 mcg tab 1 tab once daily [Active]; melatonin 3 mg Oral tab 2 tab nightly [Active]; paroxetine HCl 40 mg Oral tab 1 tab once daily [Active]; prednisone 5 mg Oral tab 2 tabs once daily [Active]; Spiriva with HandiHaler 18 mcg inhalation CpDv 1 cap once daily [Active]; Symbicort 160-4.5 mcg/actuation inhalation HFAA 2 puffs 2 times per day [Active]; - PMHx: 09:17 Arthritis; Depression; COPD; GERD; Hyperlipidemia; Hypothyroidism; ss - Immunization history:: Adult Immunizations up to date. - Social history:: Smoking status: Patient/guardian denies using tobacco, Patient/guardian denies using alcohol, street drugs, The patient lives with family. - Ebola Screening: : Patient denies exposure to infectious person Patient denies travel to an Ebola-affected area in the 21 days before illness onset. - Family history:: not pertinent. ROS: 12:19 Constitutional: Negative for fever, chills, and weight loss, MS/Extremity: Negative for ma2 injury and deformity. 12:19 All other systems are negative. Exam: 12:19 Constitutional: This is a well developed, well nourished patient who is awake, alert, ma2 and in no acute distress. ENT: Nares patent. No nasal discharge, no septal abnormalities noted. Tympanic membranes are normal and external auditory canals are clear. Oropharynx with no redness, swelling, or masses, exudates, or evidence of obstruction, uvula midline. Mucous membranes moist. Neck: Trachea midline, no thyromegaly or masses palpated, and no cervical lymphadenopathy. Supple, full range of motion without nuchal rigidity, or vertebral point tenderness. No Meningismus. Chest/axilla: Normal chest wall appearance and motion. Nontender with no deformity. No lesions are appreciated. Cardiovascular: Regular rate and rhythm with a normal S1 and S2. No gallops, murmurs, or rubs. Normal PMI, no JVD. No pulse deficits. Respiratory: Lungs have equal breath sounds bilaterally, clear to auscultation and percussion. No rales, rhonchi or wheezes noted. No increased work of breathing, no retractions or nasal flaring. Abdomen/GI: Soft, non-tender, with normal bowel sounds. No distension or tympany. No guarding or rebound. No evidence of tenderness throughout. Back: right paraspinal muscle ttp, on L2-4. No spinal tenderness. No costovertebral tenderness. Full range of motion. MS/ Extremity: Pulses equal, no cyanosis. Neurovascular intact. Full, normal range of motion. Neuro: Awake and alert, GCS 15, oriented to person, place, time, and situation. Cranial nerves II-XII grossly intact. Motor strength 5/5 in all extremities. Sensory grossly intact. Cerebellar exam normal. Normal gait. Vital Signs: 09:11 BP 183 / 90; Pulse 96; Resp 20; Temp 98.4(O); Pulse Ox 99% on R/A; Weight 50.35 kg; ss Height 4 ft. 11 in. (149.86 cm); Pain 10/10; 10:00 BP 149 / 82; Pulse 77; Resp 18; Temp 98.0(O); Pulse Ox 92% on R/A; mh5 11:13 BP 144 / 75; Pulse 78; Resp 18; Temp 98.1(O); Pulse Ox 93% ; mh5 12:50 BP 145 / 77; Pulse 72; Resp 18; Pulse Ox 97% on R/A; aj1 09:11 Body Mass Index 22.42 (50.35 kg, 149.86 cm) ss MDM: 09:07 Patient medically screened. [facility] 12:19 Differential Diagnosis compression fracture, disk disease, sciatica . Data reviewed: [facility] vital signs, nurses notes. Counseling: I had a detailed discussion with the patient and/or guardian regarding: the historical points, exam findings, and any diagnostic results supporting the discharge/admit diagnosis, the presence of at least one elevated blood pressure reading (>120/80) during this emergency department visit, the need for outpatient follow up. Response to treatment: the patient's symptoms have markedly improved after treatment. ED course: discussed with dr. masterson, recommeds MRI, pain management and orthopedics f/u. 03/05 10:03 Order name: MRI Lumbar Spine wo Con az2 03/05 10:07 Order name: Hip Right Wo Cont EDMS Administered Medications: 09:27 Drug: morphine 4 mg Route: IM; Site: right deltoid; sv 10:00 Follow up: Response: No adverse reaction; No change in condition; RASS: Restless (+1) sv 09:27 Drug: Zofran 4 mg Route: PO; sv 10:00 Follow up: Response: No adverse reaction sv 09:27 Drug: Valium 5 mg Route: PO; sv 10:00 Follow up: Response: No adverse reaction sv 11:13 Drug: morphine 4 mg {Note: RASS score 0 patient is alert.} Route: IM; Site: right aj1 deltoid; 12:49 Follow up: Response: No adverse reaction; Pain is decreased; RASS: Alert and Calm (0) [facility] 11:14 Drug: Zofran 4 mg Route: PO; [facility] 12:49 Follow up: Response: No adverse reaction [facility] Disposition: 03/05/19 12:22 Discharged to Home. Impression: Low back pain, Muscle spasm of back. - Condition is Stable. - Discharge Instructions: Back Pain, Adult, Chronic Back Pain, Back Exercises, [id number]. - Prescriptions for Tylenol- Codeine #3 300-30 mg Oral Tablet - take 2 tablet by ORAL route every 6 hours As needed; 30 tablet. Valium 10 mg Oral Tablet - take 1 tablet by ORAL route every 8 hours As needed; 20 tablet. - Medication Reconciliation Form, Thank You Letter, Antibiotic Education, Prescription Opioid Use form. - Follow up: Private Physician; When: Tomorrow; Reason: Continuance of care. Follow up: Gregor Paris MD; When: Tomorrow; Reason: Continuance of care. Follow up: Jean-Paul Wolfe DO; When: Tomorrow; Reason: Continuance of care. Signatures: Dispatcher [employer] EDDestiney Nunez RN RN aj1 Marylu Chris RN RN sv Smirch, Shelby, RN RN ss Alzahri, Mohammad, MD MD ma2 Corrections: (The following items were deleted from the chart) 12:34 12:22 03/05/2019 12:22 Discharged to Home. Impression: Low back pain; Muscle spasm of ma2 back. Condition is Stable. Prescriptions for Tylenol-Codeine #3 300-30 mg Oral Tablet - take 2 tablet by ORAL route every 6 hours As needed; 30 tablet. and Forms are Medication Reconciliation Form, Thank You Letter, Antibiotic Education, Prescription Opioid Use. Follow up: Private Physician; When: Tomorrow; Reason: Continuance of care. Follow up: Gregor Paris; When: Tomorrow; Reason: Continuance of care. ma2 12:53 12:34 03/05/2019 12:22 Discharged to Home. Impression: Low back pain; Muscle spasm of aj1 back. Condition is Stable. Discharge Instructions: Back Pain, Adult, Chronic Back Pain, Back Exercises, [id number]. Prescriptions for Tylenol-Codeine #3 300-30 mg Oral Tablet - take 2 tablet by ORAL route every 6 hours As needed; 30 tablet. and Forms are Medication Reconciliation Form, Thank You Letter, Antibiotic Education, Prescription Opioid Use. Follow up: Private Physician; When: Tomorrow; Reason: Continuance of care. Follow up: Gregor Paris; When: Tomorrow; Reason: Continuance of care. Follow up: Jean-Paul Wolfe; When: Tomorrow; Reason: Continuance of care. ma2
--- NOTE | 2019-03-05 12:39 | RAD REPORT ---
EXAM DESCRIPTION: MRI - Lumbar Spine Wo Edmundo - 03/05/2019 12:00 pm CLINICAL HISTORY: Back pain with right lower extremity radiculopathy COMPARISON: Lumbar spine plain films February 13, low field strength MRI lumbar spine November 2014 TECHNIQUE: Sagittal T1-weighted, T2-weighted and T2-STIR weighted sequences were obtained. Axial T1 -weighted and heavily T2-weighted sequenceswere obtained through the lumbar disc levels. FINDINGS: The T11- L1 bodies are normal in height. Marrow signal characteristics are normal. There i s very minimal height loss in the L2 body along the inferior endplate. No active L2 process seen. Approximately 50% wedge compression of the L3 body is present primarily along the inferior endplate. Posterior wall height is preserved. There is hypointense T1 and hyperintense IR signal along the infe rior L2 endplate. Remainder of the L2 body shows normal marrow signal pattern. Very minimal height loss involves the superior endplate L4. No active marrow process. Approximately 3 0% wedge compression of the L5 body is present without active marrow process. There are scattered fat ty marrow degenerative changes present. No paraspinal soft tissue mass. Conus is normal with no clumping or thickening of the cauda equina. T11-12 level: Disc desiccation without significant additional findings. T12-L1 level: Disc is desiccated. Bulging disc material extends across the central canal. No central spinal stenosis or contact of the cord. Mild foraminal encroachment changes are present. L1-2 level: There is slight retrolisthesis of L1 on L2. Very significant loss in disc height noted wi th endplate spurring changes. Moderately severe bilateral foraminal stenosis present from disc bulge and endplate spurring. Very minimal perineural fat remains. No central spinal stenosis. Midline canal is 12-13 mm. Facet degenerative change and ligamentous thickening are minimal. L2-3 level: Significant disc thinning is present. Prominent degenerative changes to the endplates. Di sc bulge and endplate spurring changes are present. Severe foraminal stenosis changes are present wit h effacement of the perineural fat. Central canal is 10-11 mm. There are prominent facet degenerative changes, more so to the left. L3-4 level: Disc desiccation changes are present along with loss in disc height. Large posterior endp late spurs and traction disc bulging noted. Patient has significant ligamentous thickening and facet degenerative change. Central spinal stenosis is down to 5 mm. L4 lateral recess stenosis also present . Severe bilateral foraminal stenosis changes are present with effacement of the perineural fat. L4-5 level: Disc is desiccated without loss in disc height. Patient does have prominent disc bulge an d endplate spurring changes. Prominent ligamentous thickening is present more so to the left and ther e is probably a small synovial cyst on the left. Central canal is borderline stenotic at 10 mm. Patie nt has significant bilateral foraminal stenosis with only a small amount of perineural fat remaining. L5-S1 level: Disc loss and desiccation. Disc bulge and endplate spurring changes are present. Moderat e severity foraminal stenosis is present. Perineural fat is still present. 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 Borderline stenosis at L2-3 and L4-5. Severe bilateral foraminal stenosis at L2-3 and L3-4 with moderate severity foraminal stenosis at L4- 5. Patient has multiple findings that would generate back pain and could result in radiculopathy of eith er lower extremity.
--- NOTE | 2019-03-05 12:42 | RAD REPORT ---
EXAM DESCRIPTION: MRI - Hip Right Wo Cont - 03/05/2019 12:17 pm CLINICAL HISTORY: r/o fracture, right hip pain, right lower extremity radiculopathy COMPARISON: Lumbar MRI and plain films TECHNIQUE: Multiplanar imaging of the pelvis and hip joints performed using T1 weighted, T2 fat satu ration, T2 STIR, proton density sequencing. FINDINGS: No occult fracture of either proximal femur. No AVN or focal femoral head abnormality seen . Bilateral hip joint degenerative changes are mild for age and symmetric. No periarticular mass or h ematoma. No joint effusion seen. Patient has SI joint degenerative change. Pubic symphysis degenerative changes are present as well. N o active process seen. No abnormal joint effusions identified. Urinary bladder shows no suspicious finding. Imaged portions of the bowel loops also without suspicio us finding. No skeletal muscle or soft tissue suspicious finding. IMPRESSION: No suspicious finding of the right hip joint, proximal right femur or overall pelvis. Please see separate MRI lumbar spine report for significant findings that could explain right hip, pe lvic and lower extremity symptoms.
[2019-03-05 13:03] VITALS: TEMP 98.1
[2019-03-05 13:18] VITALS: BP 145/77; O2SAT 97
== END 2019-03-05 12:53 | disposition home or self-care (01) ==
LOC: ER 09:03
DX: M62.830 Muscle spasm of back (principal); E78.5 Hyperlipidemia, unspecified; E03.9 Hypothyroidism, unspecified; F32.9 Major depressive disorder, single episode, unspecified; J44.9 Chronic obstructive pulmonary disease, unspecified; Z88.2 Allergy status to sulfonamides; Z88.8 Allergy status to other drugs, medicaments and biological substances
CPT/HCPCS: 72148; 96372; 99283

== ENCOUNTER 2019-03-08 18:06 | Observation (INO) | payer OTHER ==
--- OUTSIDE RECORDS SUMMARY | 2019-03-08 18:09 | XMS REPORT ---
:1930 [facility] [address] [place] [address] Dr. Marsh [address] [place] [id number] Care Team Providers Name Role Phone KIM MCKEON ZARI Unavailable Unavailable RICARDO WILSON Unavailable Unavailable Problems This patient has no known problems. Allergies, Adverse Reactions, Alerts This patient has no known allergies or adverse reactions. Medications This patient has no known medications. Results Test Description Test Time Test Comments Text Results Atomic Results Result Comments TISSUE EXAM 2017-09-20 16:22:00 Surgical Pathology Report Case: [id number] Authorizing Provider: Misha Calloway MD Collected: 09/16/2017 1538 Ordering Location: [address] Received: 09/19/2017 0820 Service Pathologist: Larry Cohn MD Specimen: Polyp, Colon - Rectosigmoid, POLYP TAKEN BY HOT SNARE RECTO-SIGMOID, POLYPECTOMY- TUBULAR ADENOMA- CAUTERIZED EDGE, NEGATIVE FOR ADENOMATOUS CHANGE Signing Pathologist Direct Phone Line: [phone] signed by Larry Cohn MD on 09/20/2017 at 4:22 [id number] bleedRectosigmoid colon polypThe specimen is received in [...] Value Reference Range Comments MAGNESIUM (BEAKER) (test fcst=503) 1.9 mg/dL 1.6-2.6 BASIC METABOLIC [id number] 07:32:00 Test Item Value Reference Range Comments SODIUM (BEAKER) (test 138 meq/L 136-145 pyiy=095) POTASSIUM (BEAKER) (test 4.2 meq/L 3.5-5.1 pzuh=933) CHLORIDE (BEAKER) (test 106 meq/L 98-107 hrwg=282) CO2 (BEAKER) (test 25 meq/L 22-29 cxiv=625) BLOOD UREA NITROGEN 6 mg/dL 7-21 (BEAKER) (test qavx=162) CREATININE (BEAKER) (test 0.66 mg/dL 0.57-1.25 wupb=447) GLUCOSE RANDOM (BEAKER) 76 mg/dL 70-105 (test ytkw=309) CALCIUM (BEAKER) (test 8.4 mg/dL 8.4-10.2 jxfa=019) EGFR (BEAKER) (test 85 mL/min/1.73 sq m ESTIMATED GFR IS NOT tqgl=7996) ACCURATE CREATININE CLEARANCE IN PREDICTING GLOMERULAR FILTRATION RATE. ESTIMATED GFR IS NOT APPLICABLE FOR DIALYSIS PATIENTS. [id number] 06:42:00 Test Item Value Reference Range Comments PROTIME (BEAKER) (test vqws=784) 20.8 seconds 11.7-14.7 INR (BEAKER) (test lojp=986) 1.8 <=5.9 PARTIAL THROMBOPLASTIN TIME (BEAKER) (test 36.1 seconds 22.5-36.0 ynzu=410) RECOMMENDED COUMADIN/WARFARIN INR THERAPY RANGESSTANDARD DOSE: 2.0 - 3.0 Includes: PROPHYLAXIS forvenous thrombosis, systemic embolization; TREATMENT for venous thrombosis and/or pulmonary embolus.HIGH RISK: Target INR is 2.5-3.5 for patients with mechanical heart valves.CBC W/PLT COUNT & AUTO [id number] 06:41:00 Test Item Value Reference Range Comments WHITE BLOOD CELL COUNT (BEAKER) (test khlu=032) 5.5 K/ L 3.5-10.5 RED BLOOD CELL COUNT (BEAKER) (test qcha=586) 3.52 M/ L 3.93-5.22 HEMOGLOBIN (BEAKER) (test mbgr=047) 10.4 GM/DL 11.2-15.7 HEMATOCRIT (BEAKER) (test ednz=288) 33.1 % 34.1-44.9 MEAN CORPUSCULAR VOLUME (BEAKER) (test ygmj=204) 94.0 fL 79.4-94.8 MEAN CORPUSCULAR HEMOGLOBIN (BEAKER) (test 29.5 pg 25.6-32.2 fkxl=885) MEAN CORPUSCULAR HEMOGLOBIN CONC (BEAKER) (test 31.4 GM/DL 32.2-35.5 dyav=548) RED CELL DISTRIBUTION WIDTH (BEAKER) (test 19.8 % 11.7-14.4 xldr=018) PLATELET COUNT (BEAKER) (test vwxh=404) 240 K/CU MM 150-450 MEAN PLATELET VOLUME (BEAKER) (test prro=279) 8.5 fL 9.4-12.3 NUCLEATED RED BLOOD CELLS (BEAKER) (test 0 /100 WBC 0-0 vrgj=884) NEUTROPHILS RELATIVE PERCENT (BEAKER) (test 43 % ggoa=094) LYMPHOCYTES RELATIVE PERCENT (BEAKER) (test 49 % cnxg=718) MONOCYTES RELATIVE PERCENT (BEAKER) (test 7 % gxgz=607) EOSINOPHILS RELATIVE PERCENT (BEAKER) (test 1 % zdmw=908) BASOPHILS RELATIVE PERCENT (BEAKER) (test 0 % scpx=779) NEUTROPHILS ABSOLUTE COUNT (BEAKER) (test 2.34 K/ L 1.56-6.13 gyws=505) LYMPHOCYTES ABSOLUTE COUNT (BEAKER) (test 2.68 K/ L 1.18-3.74 qxsq=290) MONOCYTES ABSOLUTE COUNT (BEAKER) (test 0.38 K/ L 0.24-0.36 xieg=904) EOSINOPHILS ABSOLUTE COUNT (BEAKER) (test 0.05 K/ L 0.04-0.36 hxlm=390) BASOPHILS ABSOLUTE COUNT (BEAKER) (test 0.02 K/ L 0.01-0.08 vsbh=488) IMMATURE GRANULOCYTES-RELATIVE PERCENT (BEAKER) 0 % 0-1 (test kero=0152) [id number] 19:07:00 Test Item Value Reference Range Comments MAGNESIUM (BEAKER) (test lgcq=816) 1.9 mg/dL 1.6-2.6 BASIC METABOLIC [id number] 19:07:00 Test Item Value Reference Range Comments SODIUM (BEAKER) (test 137 meq/L 136-145 xhlj=630) POTASSIUM (BEAKER) (test 3.8 meq/L 3.5-5.1 vdyj=145) CHLORIDE (BEAKER) (test 106 meq/L 98-107 tprd=576) CO2 (BEAKER) (test 23 meq/L 22-29 acnd=553) BLOOD UREA NITROGEN 6 mg/dL 7-21 (BEAKER) (test zntr=149) CREATININE (BEAKER) (test 0.64 mg/dL 0.57-1.25 gsch=449) GLUCOSE RANDOM (BEAKER) 82 mg/dL 70-105 (test wyxi=632) CALCIUM (BEAKER) (test 8.5 mg/dL 8.4-10.2 nxiw=974) EGFR (BEAKER) (test 88 mL/min/1.73 sq m ESTIMATED GFR IS NOT buec=1638) ACCURATE CREATININE CLEARANCE IN PREDICTING GLOMERULAR FILTRATION RATE. ESTIMATED GFR IS NOT APPLICABLE FOR DIALYSIS PATIENTS. CBC (HEMOGRAM ONLY)2017-09-16 18:38:00 Test Item Value Reference Range Comments WHITE BLOOD CELL COUNT (BEAKER) (test eodz=697) 6.5 K/ L 3.5-10.5 RED BLOOD CELL COUNT (BEAKER) (test bipk=167) 3.61 M/ L 3.93-5.22 HEMOGLOBIN (BEAKER) (test myyg=877) 10.9 GM/DL 11.2-15.7 HEMATOCRIT (BEAKER) (test tmzi=102) 33.5 % 34.1-44.9 MEAN CORPUSCULAR VOLUME (BEAKER) (test zmqh=237) 92.8 fL 79.4-94.8 MEAN CORPUSCULAR HEMOGLOBIN (BEAKER) (test 30.2 pg 25.6-32.2 dlsp=241) MEAN CORPUSCULAR HEMOGLOBIN CONC (BEAKER) (test 32.5 GM/DL 32.2-35.5 rrae=791) RED CELL DISTRIBUTION WIDTH (BEAKER) (test 19.8 % 11.7-14.4 jdbo=990) PLATELET COUNT (BEAKER) (test onim=334) 239 K/CU MM 150-450 MEAN PLATELET VOLUME (BEAKER) (test rqji=565) 8.7 fL 9.4-12.3 NUCLEATED RED BLOOD CELLS (BEAKER) (test 0 /100 WBC 0-0 brwk=876) [id number] 06:56:00 Test Item Value Reference Range Comments PHOSPHORUS (BEAKER) (test mays=960) 2.7 mg/dL 2.3-4.7 [id number] 06:56:00 Test Item Value Reference Range Comments MAGNESIUM (BEAKER) (test rusr=295) 1.9 mg/dL 1.6-2.6 BASIC METABOLIC [id number] 06:56:00 Test Item Value Reference Range Comments SODIUM (BEAKER) (test 139 meq/L 136-145 lzui=235) POTASSIUM (BEAKER) (test 4.1 meq/L 3.5-5.1 vrsl=839) CHLORIDE (BEAKER) (test 107 meq/L 98-107 awvi=336) CO2 (BEAKER) (test 26 meq/L 22-29 audx=768) BLOOD UREA NITROGEN 11 mg/dL 7-21 (BEAKER) (test popq=819) CREATININE (BEAKER) (test 0.73 mg/dL 0.57-1.25 vqzx=297) GLUCOSE RANDOM (BEAKER) 107 mg/dL 70-105 (test dilx=912) CALCIUM (BEAKER) (test 8.5 mg/dL 8.4-10.2 hzys=047) EGFR (BEAKER) (test 76 mL/min/1.73 sq m ESTIMATED GFR IS NOT cknl=2037) ACCURATE CREATININE CLEARANCE IN PREDICTING GLOMERULAR FILTRATION RATE. ESTIMATED GFR IS NOT APPLICABLE FOR DIALYSIS PATIENTS. HEPATIC FUNCTION [id number] 06:56:00 Test Item Value Reference Range Comments TOTAL PROTEIN (BEAKER) (test ciia=294) 5.2 gm/dL 6.0-8.3 ALBUMIN (BEAKER) (test zvia=2496) 2.9 g/dL 3.5-5.0 BILIRUBIN TOTAL (BEAKER) (test ynad=882) 0.8 mg/dL 0.2-1.2 BILIRUBIN DIRECT (BEAKER) (test foul=250) 0.4 mg/dL 0.1-0.5 ALKALINE PHOSPHATASE (BEAKER) (test hzfj=475) 43 U/L 40-150 AST (SGOT) (BEAKER) (test idwu=988) 13 U/L 5-34 ALT (SGPT) (BEAKER) (test yohr=214) 10 U/L 6-55 CALCIUM, [id number] 06:36:00 Test Item Value Reference Range Comments CALCIUM IONIZED (BEAKER) (test sauz=818) 1.05 mmol/L 1.12-1.27 PH, BLOOD (BEAKER) (test sexl=2206) 7.46 PROTHROMBIN [id number] 06:35:00 Test Item Value Reference Range Comments PROTIME (BEAKER) (test icwl=099) 14.2 seconds 11.7-14.7 INR (BEAKER) (test cknq=751) 1.1 <=5.9 RECOMMENDED COUMADIN/WARFARIN INR THERAPY RANGESSTANDARD DOSE: 2.0 - 3.0 Includes: PROPHYLAXIS forvenous thrombosis, systemic embolization; TREATMENT for venous thrombosis and/or pulmonary embolus.HIGH RISK: Target INR is 2.5-3.5 for patients with mechanical heart valves.CBC W/PLT COUNT & AUTO [id number] 06:25:00 Test Item Value Reference Range Comments WHITE BLOOD CELL COUNT (BEAKER) (test fupi=799) 9.4 K/ L 3.5-10.5 RED BLOOD CELL COUNT (BEAKER) (test dhuh=046) 3.48 M/ L 3.93-5.22 HEMOGLOBIN (BEAKER) (test lqdm=340) 10.0 GM/DL 11.2-15.7 HEMATOCRIT (BEAKER) (test thxb=938) 31.1 % 34.1-44.9 MEAN CORPUSCULAR VOLUME (BEAKER) (test gxvw=651) 89.4 fL 79.4-94.8 MEAN CORPUSCULAR HEMOGLOBIN (BEAKER) (test 28.7 pg 25.6-32.2 vfdg=748) MEAN CORPUSCULAR HEMOGLOBIN CONC (BEAKER) (test 32.2 GM/DL 32.2-35.5 hrmt=034) RED CELL DISTRIBUTION WIDTH (BEAKER) (test 18.3 % 11.7-14.4 niqg=744) PLATELET COUNT (BEAKER) (test dxsh=934) 234 K/CU MM 150-450 MEAN PLATELET VOLUME (BEAKER) (test qhcs=281) 8.9 fL 9.4-12.3 NUCLEATED RED BLOOD CELLS (BEAKER) (test 0 /100 WBC 0-0 vcex=506) NEUTROPHILS RELATIVE PERCENT (BEAKER) (test 70 % sqwr=049) LYMPHOCYTES RELATIVE PERCENT (BEAKER) (test 24 % guxc=676) MONOCYTES RELATIVE PERCENT (BEAKER) (test 5 % wtyf=806) EOSINOPHILS RELATIVE PERCENT (BEAKER) (test 0 % dkfx=976) BASOPHILS RELATIVE PERCENT (BEAKER) (test 0 % phbm=819) NEUTROPHILS ABSOLUTE COUNT (BEAKER) (test 6.54 K/ L 1.56-6.13 uupn=794) LYMPHOCYTES ABSOLUTE COUNT (BEAKER) (test 2.30 K/ L 1.18-3.74 zrsa=389) MONOCYTES ABSOLUTE COUNT (BEAKER) (test 0.50 K/ L 0.24-0.36 ealk=633) EOSINOPHILS ABSOLUTE COUNT (BEAKER) (test 0.03 K/ L 0.04-0.36 njvp=734) BASOPHILS ABSOLUTE COUNT (BEAKER) (test 0.02 K/ L 0.01-0.08 zjbd=945) IMMATURE GRANULOCYTES-RELATIVE PERCENT (BEAKER) 0 % 0-1 (test hkmi=8292) TISSUE [id number] 14:52:00Surgical Pathology Report Case: [id number] Authorizing Provider: Ricardo Wilson MD Collected: 08/02/2017 1715 Ordering Location: [facility] Endoscopy Received: 08/03/2017 0837 Services Pathologist: Larry Cohn MD Specimen: Rectal, MASS- TAKEN BY ESD, ON WAX, EVALUATE MARGINS RECTAL, 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)- NEGATIVE FOR HIGH GRADE DYSPLASIA OR CARCINOMA- PERIPHERAL MARGINS, NEGATIVE FOR ADENOMATOUS CHANGE Signing Pathologist Direct Phone Line: [phone] signed by Larry Cohn MD on 08/04/2017 at 2:52 [id number] polyp Rectal mass Received in formalin labeled [...] the diagnostic line.CBC W/PLT COUNT & AUTO [id number] 06:19:00 Test Item Value Reference Range Comments WHITE BLOOD CELL COUNT (BEAKER) (test cctd=612) 15.6 K/ L 3.5-10.5 RED BLOOD CELL COUNT (BEAKER) (test mpgy=849) 3.50 M/ L 3.93-5.22 HEMOGLOBIN (BEAKER) (test ouhj=756) 9.9 GM/DL 11.2-15.7 HEMATOCRIT (BEAKER) (test nooq=204) 31.4 % 34.1-44.9 MEAN CORPUSCULAR VOLUME (BEAKER) (test kezc=620) 89.7 fL 79.4-94.8 MEAN CORPUSCULAR HEMOGLOBIN (BEAKER) (test 28.3 pg 25.6-32.2 vxjk=848) MEAN CORPUSCULAR HEMOGLOBIN CONC (BEAKER) (test 31.5 GM/DL 32.2-35.5 ydsz=279) RED CELL DISTRIBUTION WIDTH (BEAKER) (test 18.0 % 11.7-14.4 kprp=010) PLATELET COUNT (BEAKER) (test nolj=565) 223 K/CU MM 150-450 MEAN PLATELET VOLUME (BEAKER) (test kbrz=370) 8.7 fL 9.4-12.3 NUCLEATED RED BLOOD CELLS (BEAKER) (test 0 /100 WBC 0-0 bayk=070) NEUTROPHILS RELATIVE PERCENT (BEAKER) (test 81 % smdh=791) LYMPHOCYTES RELATIVE PERCENT (BEAKER) (test 15 % aqzx=173) MONOCYTES RELATIVE PERCENT (BEAKER) (test 4 % yzww=809) EOSINOPHILS RELATIVE PERCENT (BEAKER) (test 0 % vbbf=992) BASOPHILS RELATIVE PERCENT (BEAKER) (test 0 % clyn=144) NEUTROPHILS ABSOLUTE COUNT (BEAKER) (test 12.56 K/ L 1.56-6.13 ajqm=145) LYMPHOCYTES ABSOLUTE COUNT (BEAKER) (test 2.36 K/ L 1.18-3.74 uudg=942) MONOCYTES ABSOLUTE COUNT (BEAKER) (test 0.56 K/ L 0.24-0.36 pwxi=764) EOSINOPHILS ABSOLUTE COUNT (BEAKER) (test 0.03 K/ L 0.04-0.36 xscm=763) BASOPHILS ABSOLUTE COUNT (BEAKER) (test 0.02 K/ L 0.01-0.08 jjnx=130) IMMATURE GRANULOCYTES-RELATIVE PERCENT (BEAKER) 0 % 0-1 (test ngcx=2840) HEPATIC FUNCTION [id number] 06:15:00 Test Item Value Reference Range Comments TOTAL PROTEIN (BEAKER) (test ikvu=839) 4.9 gm/dL 6.0-8.3 ALBUMIN (BEAKER) (test varg=8519) 2.8 g/dL 3.5-5.0 BILIRUBIN TOTAL (BEAKER) (test abmv=728) 1.1 mg/dL 0.2-1.2 BILIRUBIN DIRECT (BEAKER) (test ojrp=231) 0.5 mg/dL 0.1-0.5 ALKALINE PHOSPHATASE (BEAKER) (test xrvf=325) 42 U/L 40-150 AST (SGOT) (BEAKER) (test llzz=508) 15 U/L 5-34 ALT (SGPT) (BEAKER) (test avcx=832) 12 U/L 6-55 BASIC METABOLIC [id number] 06:15:00 Test Item Value Reference Range Comments SODIUM (BEAKER) (test 139 meq/L 136-145 hwov=428) POTASSIUM (BEAKER) (test 4.6 meq/L 3.5-5.1 zsuv=352) CHLORIDE (BEAKER) (test 108 meq/L 98-107 ohob=191) CO2 (BEAKER) (test 25 meq/L 22-29 vliz=967) BLOOD UREA NITROGEN 13 mg/dL 7-21 (BEAKER) (test lbdn=602) CREATININE (BEAKER) (test 0.73 mg/dL 0.57-1.25 rtjj=749) GLUCOSE RANDOM (BEAKER) 115 mg/dL 70-105 (test npql=758) CALCIUM (BEAKER) (test 8.5 mg/dL 8.4-10.2 uvke=463) EGFR (BEAKER) (test 76 mL/min/1.73 sq m ESTIMATED GFR IS NOT dfga=5034) ACCURATE CREATININE CLEARANCE IN PREDICTING GLOMERULAR FILTRATION RATE. ESTIMATED GFR IS NOT APPLICABLE FOR DIALYSIS PATIENTS. PROTHROMBIN [id number] 05:59:00 Test Item Value Reference Range Comments PROTIME (BEAKER) (test nawe=282) 14.6 seconds 11.7-14.7 INR (BEAKER) (test rghg=785) 1.1 <=5.9 RECOMMENDED COUMADIN/WARFARIN INR THERAPY RANGESSTANDARD DOSE: 2.0 - 3.0 Includes: PROPHYLAXIS forvenous thrombosis, systemic embolization; TREATMENT for venous thrombosis and/or pulmonary embolus.HIGH RISK: Target INR is 2.5-3.5 for patients with mechanical heart valves.URINALYSIS W/ [id number] 14 :53:00 Test Item Value Reference Range Comments COLOR (BEAKER) (test xpin=279) Yellow CLARITY (BEAKER) (test vuqr=766) Clear SPECIFIC GRAVITY UA (BEAKER) (test pxoj=391) 1.010 1.001-1.035 PH UA (BEAKER) (test sfqr=282) 5.5 5.0-8.0 PROTEIN UA (BEAKER) (test vykr=705) Negative Negative GLUCOSE UA (BEAKER) (test yocz=634) Negative Negative KETONES UA (BEAKER) (test eqwz=726) Trace Negative BILIRUBIN UA (BEAKER) (test fiwv=586) Negative Negative BLOOD UA (BEAKER) (test obiq=933) Negative Negative NITRITE UA (BEAKER) (test ttab=263) Negative Negative LEUKOCYTE ESTERASE UA (BEAKER) (test riuz=419) Negative Negative UROBILINOGEN UA (BEAKER) (test msef=866) 0.2 mg/dL 0.2-1.0 RBC UA (BEAKER) (test emmw=412) 1 /HPF WBC UA (BEAKER) (test kair=113) 3 /HPF MUCUS (BEAKER) (test vipc=1756) Few SQUAMOUS EPITHELIAL (BEAKER) (test tbgi=633) < /HPF HYALINE CASTS (BEAKER) (test qbig=944) 2 /LPF SOURCE(BEAKER) (test qxcv=4951) HEPATIC FUNCTION [id number] 06:31:00 Test Item Value Reference Range Comments TOTAL PROTEIN (BEAKER) (test fctc=050) 5.2 gm/dL 6.0-8.3 ALBUMIN (BEAKER) (test lxnq=0915) 3.1 g/dL 3.5-5.0 BILIRUBIN TOTAL (BEAKER) (test qyws=641) 1.1 mg/dL 0.2-1.2 BILIRUBIN DIRECT (BEAKER) (test asfq=410) 0.5 mg/dL 0.1-0.5 ALKALINE PHOSPHATASE (BEAKER) (test ncyh=846) 47 U/L 40-150 AST (SGOT) (BEAKER) (test kqjh=510) 20 U/L 5-34 ALT (SGPT) (BEAKER) (test mjug=392) 15 U/L 6-55 BASIC METABOLIC [id number] 06:31:00 Test Item Value Reference Range Comments SODIUM (BEAKER) (test 139 meq/L 136-145 uihi=846) POTASSIUM (BEAKER) (test 2.7 meq/L 3.5-5.1 lnvq=413) CHLORIDE (BEAKER) (test 106 meq/L 98-107 iysw=194) CO2 (BEAKER) (test 24 meq/L 22-29 fvye=065) BLOOD UREA NITROGEN 7 mg/dL 7-21 (BEAKER) (test grks=179) CREATININE (BEAKER) (test 0.61 mg/dL 0.57-1.25 ndfr=244) GLUCOSE RANDOM (BEAKER) 88 mg/dL 70-105 (test fwwf=325) CALCIUM (BEAKER) (test 8.4 mg/dL 8.4-10.2 hihg=195) EGFR (BEAKER) (test 93 mL/min/1.73 sq m ESTIMATED GFR IS NOT zenn=5842) ACCURATE CREATININE CLEARANCE IN PREDICTING GLOMERULAR FILTRATION RATE. ESTIMATED GFR IS NOT APPLICABLE FOR DIALYSIS PATIENTS. BASIC METABOLIC [id number] 06:30:00 Test Item Value Reference Range Comments SODIUM (BEAKER) (test 136 meq/L 136-145 vixv=911) POTASSIUM (BEAKER) (test 3.0 meq/L 3.5-5.1 Specimen slightly cenb=113) hemolyzed CHLORIDE (BEAKER) (test 106 meq/L 98-107 edtq=973) CO2 (BEAKER) (test 20 meq/L 22-29 hpgm=335) BLOOD UREA NITROGEN 7 mg/dL 7-21 (BEAKER) (test xypy=317) CREATININE (BEAKER) (test 0.61 mg/dL 0.57-1.25 Specimen slightly yywg=583) hemolyzed GLUCOSE RANDOM (BEAKER) 81 mg/dL 70-105 (test zoof=100) CALCIUM (BEAKER) (test 8.2 mg/dL 8.4-10.2 ipge=117) EGFR (BEAKER) (test 93 mL/min/1.73 sq m ESTIMATED GFR IS NOT pfrg=8154) ACCURATE CREATININE CLEARANCE IN PREDICTING GLOMERULAR FILTRATION RATE. ESTIMATED GFR IS NOT APPLICABLE FOR DIALYSIS PATIENTS. CBC W/PLT COUNT & AUTO [id number] 06:25:00 Test Item Value Reference Range Comments WHITE BLOOD CELL COUNT (BEAKER) (test ucpy=554) 14.6 K/ L 3.5-10.5 RED BLOOD CELL COUNT (BEAKER) (test itdd=260) 3.75 M/ L 3.93-5.22 HEMOGLOBIN (BEAKER) (test hzsk=866) 10.5 GM/DL 11.2-15.7 HEMATOCRIT (BEAKER) (test nyny=527) 33.1 % 34.1-44.9 MEAN CORPUSCULAR VOLUME (BEAKER) (test kyuw=980) 88.3 fL 79.4-94.8 MEAN CORPUSCULAR HEMOGLOBIN (BEAKER) (test 28.0 pg 25.6-32.2 ljgq=806) MEAN CORPUSCULAR HEMOGLOBIN CONC (BEAKER) (test 31.7 GM/DL 32.2-35.5 adqp=497) RED CELL DISTRIBUTION WIDTH (BEAKER) (test 17.5 % 11.7-14.4 cnex=752) PLATELET COUNT (BEAKER) (test wtoi=656) 246 K/CU MM 150-450 MEAN PLATELET VOLUME (BEAKER) (test zylm=452) 8.9 fL 9.4-12.3 NUCLEATED RED BLOOD CELLS (BEAKER) (test 0 /100 WBC 0-0 sffw=297) NEUTROPHILS RELATIVE PERCENT (BEAKER) (test 88 % txzh=010) LYMPHOCYTES RELATIVE PERCENT (BEAKER) (test 5 % qtab=528) MONOCYTES RELATIVE PERCENT (BEAKER) (test 6 % mafq=643) EOSINOPHILS RELATIVE PERCENT (BEAKER) (test 0 % dxlp=543) BASOPHILS RELATIVE PERCENT (BEAKER) (test 0 % bonq=485) NEUTROPHILS ABSOLUTE COUNT (BEAKER) (test 12.85 K/ L 1.56-6.13 qwch=328) LYMPHOCYTES ABSOLUTE COUNT (BEAKER) (test 0.71 K/ L 1.18-3.74 lmsu=511) MONOCYTES ABSOLUTE COUNT (BEAKER) (test 0.94 K/ L 0.24-0.36 shqo=309) EOSINOPHILS ABSOLUTE COUNT (BEAKER) (test 0.00 K/ L 0.04-0.36 huyt=492) BASOPHILS ABSOLUTE COUNT (BEAKER) (test 0.02 K/ L 0.01-0.08 lmto=820) IMMATURE GRANULOCYTES-RELATIVE PERCENT (BEAKER) 1 % 0-1 (test yorw=2750) PROTHROMBIN [id number] 06:21:00 Test Item Value Reference Range Comments PROTIME (BEAKER) (test aidr=321) 13.5 seconds 11.7-14.7 INR (BEAKER) (test mmki=102) 1.0 <=5.9 RECOMMENDED COUMADIN/WARFARIN INR THERAPY RANGESSTANDARD DOSE: 2.0 - 3.0 Includes: PROPHYLAXIS forvenous thrombosis, systemic embolization; TREATMENT for venous thrombosis and/or pulmonary embolus.HIGH RISK: Target INR is 2.5-3.5 for patients with mechanical heart valves.
[2019-03-08] MEDS ORDERED: FENTANYL 25 MCG/PATCH TD ONE (18:37)
[2019-03-08] MEDS ORDERED: METHYLPREDNISOLONE 125 MG INJ ONE (19:47)
[2019-03-08 20:16] LABS: Absolute Lymphocytes (CBC) 2.7 K/uL (0.7-4.9); Basophils % 0.5 % (0-1.3); Hematocrit 40.9 % (36.0-45.0); Lymphocytes % 30.9 % (15.3-44.8); MPV 7.1 fL (7.6-11.3); RBC Red Blood Cell Count 4.25 M/uL (3.86-4.86)
[2019-03-08 20:17] LABS: BUN Blood Urea Nitrogen 17 mg/dL (7-18); Bicarbonate 30 mmol/L (21-32); Glucose Level 84 mg/dL (74-106); Magnesium 2.3 mg/dL (1.8-2.4); Potassium 3.9 mmol/L (3.5-5.1); Sodium Level 141 mmol/L (136-145)
--- NOTE | 2019-03-08 20:23 | EDPHYS ---
Physician Documentation [facility] Name: Elva Jenkins Age: 88 yrs Sex: Female : 1930 Arrival Date: 03/08/2019 Time: 18:09 Bed 24 Private MD: Bharti Pollock C ED Physician Kyle Darby HPI: 03/08 20:16 This 88 yrs old Female presents to ER via EMS with complaints of Back Pain. snw 20:16 The patient presents with pain that is acute, with no known mechanism of injury. The snw symptoms are located in the low back. Onset: The symptoms/episode began/occurred 1 month(s) ago, and became worse and became persistent. Location: low back area and down right hip. Associated signs and symptoms: Pertinent positives: nausea, weakness, poor intake, failure to thrive. Modifying factors: The patient symptoms are alleviated by nothing. Severity of symptoms: At their worst the symptoms were incapacitating. It is unknown whether or not the patient has had similar symptoms in the past. The patient has been recently seen by a physician: the patient's primary care provider, Dr. Pollock with similar presenting complaints, and a MRI was done, requests admission for pain control. Historical: - Allergies: 18:14 Asacol; bp 18:14 Humira; bp 18:14 Methotrexate; bp 18:14 Orencia; bp 18:14 Phenergan; bp 18:14 Sulfazine; bp - Home Meds: 22:04 albuterol sulfate 2.5 mg /3 mL (0.083 %) Inhl nebu 3 mL 3 times per day [Active]; lc1 atorvastatin 40 mg Oral tab 1 tab once daily [Active]; albuterol sulfate 90 mcg/actuation Inhl HFAA 2 puffs every 6 hours [Active]; benzonatate 200 mg Oral cap 1 cap 3 times per day [Active]; famotidine 20 mg Oral tab 1 tab once daily [Active]; levothyroxine 50 mcg tab 1 tab once daily [Active]; melatonin 3 mg Oral tab 2 tab nightly [Active]; paroxetine HCl 40 mg Oral tab 1 tab once daily [Active]; prednisone 5 mg Oral tab 2 tabs once daily [Active]; Spiriva with HandiHaler 18 mcg inhalation CpDv 1 cap once daily [Active]; Symbicort 160-4.5 mcg/actuation inhalation HFAA 2 puffs 2 times per day [Active]; - PMHx: 18:14 Arthritis; COPD; Depression; GERD; Hyperlipidemia; Hypothyroidism; bp - Immunization history:: Adult Immunizations up to date. - Social history:: Smoking status: Patient/guardian denies using tobacco. - Ebola Screening: : No symptoms or risks identified at this time. ROS: 20:16 Eyes: Negative for injury, pain, redness, and discharge, ENT: Negative for injury, snw pain, and discharge, Neck: Negative for injury, pain, and swelling, Cardiovascular: Negative for chest pain, palpitations, and edema, Respiratory: Negative for shortness of breath, cough, wheezing, and pleuritic chest pain, Abdomen/GI: Negative for abdominal pain, nausea, vomiting, diarrhea, and constipation, : Negative for injury, bleeding, discharge, and swelling, MS/Extremity: Negative for injury and deformity, severe right hip pain Skin: Negative for injury, rash, and discoloration, Neuro: Negative for headache, weakness, numbness, tingling, and seizure. 20:16 Constitutional: Positive for fatigue, malaise, poor PO intake. 20:16 Back: Positive for decreased range of motion, pain at rest, pain with movement. Exam: 20:14 Head/Face: Normocephalic, atraumatic. Eyes: Pupils equal round and reactive to light, snw extra-ocular motions intact. Lids and lashes normal. Conjunctiva and sclera are non-icteric and not injected. Cornea within normal limits. Periorbital areas with no swelling, redness, or edema. ENT: Nares patent. No nasal discharge, no septal abnormalities noted. Tympanic membranes are normal and external auditory canals are clear. Oropharynx with no redness, swelling, or masses, exudates, or evidence of obstruction, uvula midline. Mucous membranes moist. Neck: Trachea midline, no thyromegaly or masses palpated, and no cervical lymphadenopathy. Supple, full range of motion without nuchal rigidity, or vertebral point tenderness. No Meningismus. Chest/axilla: Normal chest wall appearance and motion. Nontender with no deformity. No lesions are appreciated. 20:14 Respiratory: Lungs have equal breath sounds bilaterally, clear to auscultation and percussion. No rales, rhonchi or wheezes noted. No increased work of breathing, no retractions or nasal flaring. Abdomen/GI: Soft, non-tender, with normal bowel sounds. No distension or tympany. No guarding or rebound. No evidence of tenderness throughout. Skin: Warm, dry with normal turgor. Normal color with no rashes, no lesions, and no evidence of cellulitis. Neuro: Awake and alert, GCS 15, oriented to person, place, time, and situation. Cranial nerves II-XII grossly intact. Motor strength 5/5 in all extremities. Sensory grossly intact. Cerebellar exam normal. Normal gait. Psych: Awake, alert, with orientation to person, place and time. Behavior, mood, and affect are within normal limits. 20:14 Constitutional: The patient appears awake, anxious, frail, in obvious pain, unkempt. 20:14 Cardiovascular: Rate: normal, Pulses: no pulse deficits are appreciated, Edema: pedal edema, that is moderate. 20:14 Musculoskeletal/extremity: Extremities: noted in the severe pain to right hip and low back: ROM: limited active range of motion due to pain, limited passive range of motion due to pain, Circulation is intact in all extremities. Sensation intact. generalized weakness 20:14 Neuro: Orientation: is normal, Mentation: is normal, seizure activity, is not displayed by the patient. Vital Signs: 18:09 BP 190 / 83; Pulse 89; Resp 15; Temp 97.5; Pulse Ox 93% ; bp 19:00 BP 163 / 82; Pulse 86; Resp 18; Pulse Ox 96% on R/A; 1 20:00 BP 181 / 87; Pulse 84; Resp 18; Pulse Ox 94% on R/A; 1 21:00 BP 163 / 71; Pulse 74; Resp 18; Pulse Ox 94% on R/A; 1 22:00 BP 174 / 85; Pulse 84; Resp 18; Pulse Ox 91% on R/A; 1 23:00 BP 175 / 86; Pulse 91; Resp 18; Pulse Ox 91% on R/A; 1 03/09 00:00 BP 166 / 89; Pulse 87; Resp 18; Pulse Ox 91% on R/A; [facility] MDM: 03/08 18:18 Patient medically screened. [facility] 20:21 Data reviewed: vital signs, nurses notes. Data interpreted: Pulse oximetry: on room air snw is 93 %. Interpretation: acceptable. Counseling: I had a detailed discussion with the patient and/or guardian regarding: the historical points, exam findings, and any diagnostic results supporting the discharge/admit diagnosis, the need for further work-up and treatment in the hospital. Physician consultation: A Maris PALOMARES was contacted at 17:50, and will see patient in inpatient room. 03/08 18:20 Order name: CBC with Diff; Complete Time: 20:22 snw 03/08 18:20 Order name: Chem 7; Complete Time: 20:19 snw 03/08 18:20 Order name: Magnesium; Complete Time: 20:19 snw 03/08 18:20 Order name: Blood Culture Adult (2) snw 03/08 20:58 Order name: Urine Dipstick--Ancillary (enter results) ar5 03/08 21:00 Order name: Urine Dipstick-Ancillary; Complete Time: 21:01 EDMS 03/08 18:20 Order name: SL; Complete Time: 21:12 snw Administered Medications: 18:30 Drug: fentaNYL Patch (25 mcg/hr) 1 patches Route: Transdermal; Site: affected area; bp 20:45 Follow up: Response: No adverse reaction lc1 20:01 Drug: SOLU-Medrol 125 mg Route: IVP; Site: right antecubital; lc1 20:45 Follow up: Response: No adverse reaction lc1 20:30 Drug: Dilaudid 0.5 mg {Note: rass 0.} Route: IM; Site: right deltoid; lc1 21:12 Follow up: Response: Pain is decreased lc1 20:39 Drug: Robaxin 1 grams Route: IVPB; Infused Over: 1 hrs; Site: right antecubital; lc1 23:29 Follow up: Response: No adverse reaction; IV Status: Completed infusion lc1 20:44 Drug: Lidoderm 5 % (700 mg/patch) 1 patches Route: Topical; Site: affected area; lc1 03/09 01:13 Drug: Dilaudid 0.5 mg {Note: RASS 0.} Route: IM; Site: left deltoid; lc1 Disposition: 03/08/19 20:21 Hospitalization ordered by Bharti Pollock for Inpatient Admission. Preliminary diagnosis are Low back pain, Radiculopathy, lumbosacral region, Adult failure to thrive. - Bed requested for Telemetry/MedSurg (Inpatient). - Status is Inpatient Admission. sr5 - Condition is Stable. - Problem is an acute exacerbation. - Symptoms have worsened. UTI on Admission? No Addendum: 03/10/2019 20:15 Co-signature as Attending Physician, Kyle Darby MD. r n Signatures: Dispatcher [employer] EDMS Saray Wilkerson bd Rajni, Melissa, ANIMAL RIDES MANAGER-C ANIMAL RIDES MANAGER-Csnw Kyle Darby MD MD rn Calhoun, Lisa lc1 Heladio Copeland, RN RN sr5 Markus Sanchez, RN RN ja1 Ben Pineda, RN RN bp Corrections: (The following items were deleted from the chart) 03/08 21:40 20:21 Hospitalization Ordered by A Maris PALOMARES for Inpatient Admission. Preliminary ja1 diagnosis is Low back pain; Radiculopathy, lumbosacral region; Adult failure to thrive. Bed requested for Telemetry/MedSurg (Inpatient). Status is Inpatient Admission. Condition is Stable. Problem is an acute exacerbation. Symptoms have worsened. UTI on Admission? No. snw 03/09 13:12 03/08 21:40 03/08/2019 20:21 Hospitalization Ordered by A Maris PALOMARES for Inpatient bd Admission. Preliminary diagnosis is Low back pain; Radiculopathy, lumbosacral region; Adult failure to thrive. Bed requested for [facility] ER HOLD. Status is Inpatient Admission. Condition is Stable. Problem is an acute exacerbation. Symptoms have worsened. UTI on Admission? No. ja1 03/09 15:20 13:12 03/08/2019 20:21 Hospitalization Ordered by A Maris PALOMARES for Inpatient Admission. sr5 Preliminary diagnosis is Low back pain; Radiculopathy, lumbosacral region; Adult failure to thrive. Bed requested for Telemetry/MedSurg (Inpatient). Status is Inpatient Admission. Condition is Stable. Problem is an acute exacerbation. Symptoms have worsened. UTI on Admission? No. bd
--- NOTE | 2019-03-08 20:23 | ER ---
Nurse's Notes [facility] Name: Elva Jenkins Age: 88 yrs Sex: Female : 1930 Arrival Date: 03/08/2019 Time: 18:09 Bed 24 Private MD: Bharti Pollock C Diagnosis: Low back pain;Radiculopathy, lumbosacral region;Adult failure to thrive Presentation: 03/08 18:09 Presenting complaint: EMS states: CHRONIC BACK PAIN, SEEN MX TIMES FOR SAME, LAST TIME bp 3 DAYS AGO. Transition of care: patient was not received from another setting of care. Onset of symptoms is unknown. Risk Assessment: Do you want to hurt yourself or someone else? Patient reports no desire to harm self or others. Initial Sepsis Screen: Does the patient meet any 2 criteria? No. Patient's initial sepsis screen is negative. Does the patient have a suspected source of infection? No. Patient's initial sepsis screen is negative. Care prior to arrival: None. 18:09 Method Of Arrival: EMS: [facility] bp 18:09 Acuity: TAVON 4 bp Triage Assessment: 18:09 General: Appears in no apparent distress. uncomfortable, Behavior is cooperative, bp appropriate for age, anxious. Pain: Complains of pain in back. EENT: No deficits noted. Neuro: Level of Consciousness is awake, alert, obeys commands, Oriented to person, place, time, situation, Appropriate for age. Cardiovascular: No deficits noted. Respiratory: No deficits noted. GI: No signs and/or symptoms were reported involving the gastrointestinal system. : No signs and/or symptoms were reported regarding the genitourinary system. Derm: No deficits noted. Musculoskeletal: Circulation, motion, and sensation intact. Range of motion: intact in all extremities. Historical: - Allergies: 18:14 Asacol; bp 18:14 Humira; bp 18:14 Methotrexate; bp 18:14 Orencia; bp 18:14 Phenergan; bp 18:14 Sulfazine; bp - Home Meds: 22:04 albuterol sulfate 2.5 mg /3 mL (0.083 %) Inhl nebu 3 mL 3 times per day [Active]; lc1 atorvastatin 40 mg Oral tab 1 tab once daily [Active]; albuterol sulfate 90 mcg/actuation Inhl HFAA 2 puffs every 6 hours [Active]; benzonatate 200 mg Oral cap 1 cap 3 times per day [Active]; famotidine 20 mg Oral tab 1 tab once daily [Active]; levothyroxine 50 mcg tab 1 tab once daily [Active]; melatonin 3 mg Oral tab 2 tab nightly [Active]; paroxetine HCl 40 mg Oral tab 1 tab once daily [Active]; prednisone 5 mg Oral tab 2 tabs once daily [Active]; Spiriva with HandiHaler 18 mcg inhalation CpDv 1 cap once daily [Active]; Symbicort 160-4.5 mcg/actuation inhalation HFAA 2 puffs 2 times per day [Active]; - PMHx: 18:14 Arthritis; COPD; Depression; GERD; Hyperlipidemia; Hypothyroidism; bp - Immunization history:: Adult Immunizations up to date. - Social history:: Smoking status: Patient/guardian denies using tobacco. - Ebola Screening: : No symptoms or risks identified at this time. Screenin:12 Abuse screen: Denies threats or abuse. Denies injuries from another. Nutritional bp screening: No deficits noted. Tuberculosis screening: No symptoms or risk factors identified. Fall Risk None identified. Assessment: 18:12 General: SEE TRIAGE NOTE. Neuro: Level of Consciousness is awake, alert, obeys bp commands, Oriented to person, place, time, situation, Appropriate for age. 19:00 Reassessment: No changes from previously documented assessment. Patient and/or family lc1 updated on plan of care and expected duration. Pain level reassessed. Patient is alert, oriented x 3, equal unlabored respirations, skin warm/dry/pink. Patient states symptoms have not improved. patient still tearful, son at bedside. 20:00 Reassessment: No changes from previously documented assessment. Patient and/or family lc1 updated on plan of care and expected duration. Pain level reassessed. Patient is alert, oriented x 3, equal unlabored respirations, skin warm/dry/pink. Patient states symptoms have not improved. 21:00 Reassessment: No changes from previously documented assessment. Patient and/or family lc1 updated on plan of care and expected duration. Pain level reassessed. Patient is alert, oriented x 3, equal unlabored respirations, skin warm/dry/pink. Patient states symptoms have improved. able to lay flat and is currently resting. 22:00 Reassessment: Patient and/or family updated on plan of care and expected duration. Pain lc1 level reassessed. Patient is alert, oriented x 3, equal unlabored respirations, skin warm/dry/pink. Patient states symptoms have improved. resting in bed, son at bedside. 23:00 Reassessment: No changes from previously documented assessment. Patient and/or family lc1 updated on plan of care and expected duration. Pain level reassessed. Patient is alert, oriented x 3, equal unlabored respirations, skin warm/dry/pink. Patient states feeling better. Vital Signs: 18:09 BP 190 / 83; Pulse 89; Resp 15; Temp 97.5; Pulse Ox 93% ; bp 19:00 BP 163 / 82; Pulse 86; Resp 18; Pulse Ox 96% on R/A; lc1 20:00 BP 181 / 87; Pulse 84; Resp 18; Pulse Ox 94% on R/A; lc1 21:00 BP 163 / 71; Pulse 74; Resp 18; Pulse Ox 94% on R/A; lc1 22:00 BP 174 / 85; Pulse 84; Resp 18; Pulse Ox 91% on R/A; lc1 23:00 BP 175 / 86; Pulse 91; Resp 18; Pulse Ox 91% on R/A; lc1 03/09 00:00 BP 166 / 89; Pulse 87; Resp 18; Pulse Ox 91% on R/A; lc1 ED Course: 03/08 18:09 Patient arrived in ED. iw 18:09 Ben Pineda, GUME is Primary Nurse. bp 18:09 Bharti Pollock MD is Private Physician. iw 18:09 Arm band placed on. bp 18:10 Triage completed. bp 18:12 Patient has correct armband on for positive identification. Bed in low position. Call bp light in reach. Side rails up X2. Adult w/ patient. 18:18 Melissa Urban FNP-C is PHCP. snw 18:18 Kyle Darby MD is Attending Physician. snw 20:00 Appears restless. Appears tearful. lc1 20:00 Pulse ox on. NIBP on. Door closed. Noise minimized. Warm blanket given. Turned to right lc1 side. 20:00 No provider procedures requiring assistance completed. Inserted saline lock: 22 gauge lc1 in right antecubital area, using aseptic technique. Blood collected. 20:20 Bharti Pollock MD is Hospitalizing Provider. snw 21:00 Door closed. Noise minimized. Lights dimmed. Warm blanket given. lc1 23:30 Patient admitted, IV remains in place. lc1 23:31 Urine Dipstick--Ancillary (enter results) Sent. lc1 Administered Medications: 18:30 Drug: fentaNYL Patch (25 mcg/hr) 1 patches Route: Transdermal; Site: affected area; bp 20:45 Follow up: Response: No adverse reaction lc1 20:01 Drug: SOLU-Medrol 125 mg Route: IVP; Site: right antecubital; lc1 20:45 Follow up: Response: No adverse reaction lc1 20:30 Drug: Dilaudid 0.5 mg {Note: rass 0.} Route: IM; Site: right deltoid; lc1 21:12 Follow up: Response: Pain is decreased lc1 20:39 Drug: Robaxin 1 grams Route: IVPB; Infused Over: 1 hrs; Site: right antecubital; lc1 23:29 Follow up: Response: No adverse reaction; IV Status: Completed infusion 1 20:44 Drug: Lidoderm 5 % (700 mg/patch) 1 patches Route: Topical; Site: affected area; 1 03/09 01:13 Drug: Dilaudid 0.5 mg {Note: RASS 0.} Route: IM; Site: left deltoid; 1 Outcome: 03/08 20:21 Decision to Hospitalize by Provider. snw 21:56 Condition: improved 1 23:29 Admitted to ER Hold. Please see [facility] for further documentation. 1 23:29 Instructed on the need for admit. 03/09 15:20 Patient left the ED. sr5 Signatures: Melissa Urban, CUSTOMER SUPPORT ENGINEER-C CUSTOMER SUPPORT ENGINEER-Csnw Ruth Shannon RN Elise Cordova 1 Heladio Copeland RN RN sr5 Ben Pineda RN RN bp Corrections: (The following items were deleted from the chart) 03/08 21:11 20:00 Inserted saline lock: 22 gauge in right antecubital area, using aseptic lc1 technique. lc1 03/09 01:14 03/08 20:30 Dilaudid 0.5 mg IM in right deltoid lc1 lc1 03/09 01:14 01:13 Dilaudid 0.5 mg IM in left deltoid lc1 lc1
[2019-03-08] MEDS ORDERED: HYDROMORPHONE HCL 0.5 MG/0.5 ML INJ ONE (20:26)
[2019-03-08] MEDS ORDERED: METHOCARBAMOL 1,000 MG/10 ML VIAL IV ONE (20:27)
[2019-03-08] MEDS ORDERED: NA CHLORIDE 0.9% 100 ML IV ONE (20:27)
[2019-03-08] MEDS ORDERED: LIDOCAINE 4% PATCH ONE (20:28)
[2019-03-08 21:00] LABS: Urine Blood NEGATIVE (NEG); Urine Glucose NEGATIVE (NEG); Urine Protein NEGATIVE (NEG); Urine pH 6.5 (5.0-7.0)
[2019-03-08] MEDS: IPRATROPIUM BROM 0.5MG/2.5ML NEB SCH (23:45)
[2019-03-08] MEDS: ALBUTEROL 2.5 MG/3 ML NEB SOL NEB SCH (23:45)
[2019-03-09 00:08] VITALS: BMI 22.4
[2019-03-09] MEDS ORDERED: ALBUTEROL 2.5 MG/3 ML NEB SOL ONE ×3 (00:34→11:42)
[2019-03-09] MEDS ORDERED: IPRATROPIUM BROM 0.5MG/2.5ML ONE ×3 (00:34→11:42)
[2019-03-09] MEDS ORDERED: HYDROMORPHONE HCL 0.5 MG/0.5 ML INJ ONE (00:57)
[2019-03-09] MEDS: IPRATROPIUM BROM 0.5MG/2.5ML NEB SCH ×6 (03:45→23:55)
[2019-03-09] MEDS: ALBUTEROL 2.5 MG/3 ML NEB SOL NEB SCH ×6 (03:45→23:55)
[2019-03-09] MEDS: LIDOCAINE 4% PATCH TOP SCH (09:00)
[2019-03-09] MEDS ORDERED: LIDOCAINE 4% PATCH ONE (09:25)
[2019-03-09] MEDS ORDERED: BENZONATATE 100 MG CAP PO PRN (10:57)
[2019-03-09] MEDS ORDERED: ALBUTEROL INHALER 60 PUFF/8 GM IH PRN (10:57)
[2019-03-09] MEDS ORDERED: PARoxetine HCl 10 MG TAB PO PRN (10:57)
[2019-03-09] MEDS ORDERED: MAGNESIUM HYDROXIDE 8% 30 ML PO ONE (10:59)
[2019-03-09] MEDS ORDERED: METHYLPREDNISOLONE 40 MG INJ ONE (12:59)
[2019-03-09] MEDS: METHYLPREDNISOLONE 40 MG INJ IV SCH ×2 (13:10→17:41)
[2019-03-09] MEDS ORDERED: MAGNESIUM HYDROXIDE 8% 30 ML ONE (13:28)
[2019-03-09] MEDS: ENOXAPARIN 40 MG/0.4 ML SQ SCH (17:41)
[2019-03-09] MEDS: ATORVASTATIN 40 MG TAB PO SCH (20:17)
[2019-03-09] MEDS: DOCUSATE NA 100 MG CAP PO SCH (20:17)
[2019-03-09] MEDS: ACETAMINOPHEN 500 MG TAB PO PRN (20:17)
[2019-03-10] MEDS: METHYLPREDNISOLONE 40 MG INJ IV SCH ×5 (00:49→23:11)
--- NOTE | 2019-03-10 02:42 | HP ---
Date of Admission: 03/08/2019 Chief Complaint: Pain. History Of Present Illness: Ms. Jenkins is a pleasant 88-year-old female patient, who has been having trouble with lower back pain radiating to her right leg. This is going on for last 3 weeks or so. Patient had 2 visits to emergency room and she came to see me at office couple of times. With her [facility] emergency room visit on 03/05/2019, she had MRI done of her hip and lumbosacral spine. Prior to t hat she had x-rays done. Patient has compression fracture of lumbar spine, 2 different spines and MR I revealed evidence of compression fracture along with bilateral foraminal stenosis and spinal stenos is. MRI of the hip was unremarkable. Patient lives at home by herself. Her son lives out of town, who has been living with her lately because of her back pain and yesterday he called and informed me that he is concerned about the patient's well-being and the way he described it to me that the patien melissa has significant weakness to the extent that she is not able to get out of bed and it is because of combination of feeling bad, feeling weak, as well as pain and all she can do is to get out of bed wit h assistance to get on the bedside commode. Otherwise, she is not able to ambulate at all. Prior to all this, the patient was ambulating on her own. No fall. No injury. The patient's son also infor med me that he has to feed her and she is extremely weak and he told me 2-3 times on the phone while I was talking to him that he is concerned that she may not survive too long if we do not do anything and if this problem continues the way it is. We talked about possibility of putting her into the [facility] for pain control as all the diagnostic workup has been done. She has appointment to see Dr. Pietro Gaming, on March 26, 2019. The patient's son could not get appointment to see the pain management doctor. After I talked to him, it was advised to patient's son to bring patient to emerge ncy room and after she was evaluated she was admitted to the hospital. When I saw her this morning, besides her pain and generalized weakness she denied any other complaints. Medications: List reviewed. Review of Systems: Musculoskeletal: As mentioned above. Constitutional: As mentioned above. All other systems reviewed and negative. Allergies: SULFA CAUSING HEADACHE, RITUXIMAB CAUSING LEG SWELLING, PROMETHAZINE CAUSING HALLUCINATIO N AND ARM JERKING, METHOTREXATE CAUSING DYSPNEA, MESALAMINE CAUSING SORE THROAT AND HIVES, ADALIMUMAB CAUSING FACE SWELLING, AND ABATACEPT CAUSING JOINT PAIN. Past Surgical History: Hysterectomy, appendectomy, cholecystectomy, cataract surgery, removal of carly ign rectal mass on August 02, 2017, in [place]. Family History: Parents of old age at age 99 and 95 years. Sister had stroke and hypertension. Social History: Negative for smoking, alcohol use. Past Medical History: Lymphedema, hypertension, hypothyroidism, COPD, chronic steroid therapy, rheum atoid arthritis, chronic leg edema, hemorrhoid surgery, Clostridium difficile colitis, DVT of leg, pu lmonary embolism diagnosed in August 2017. Physical Examination: Vital Signs: When I saw her, height 4 feet 11 inches, weight 111 pounds, temperature 97.2, pulse 90, respiratory rate 18, blood pressure 113/56, oxygen saturation 97%. General: Awake, alert, oriented, not in distress. HEENT: Head atraumatic, normocephalic. Conjunctivae nonerythematous. Sclerae white. Mouth, no thr ush or edema noted. Ears/Nose, no mass, lesion, discharge noted. Neck: Supple. No JVD, lymph nodes, bruit, thyromegaly noted. Lungs: Bilateral good equal air entry. Clear to auscultation. No rhonchi. No rales. Heart: Normal heart sounds, no murmur or gallop. Abdomen: Soft, bowel sounds normal. No guarding, rigidity, tenderness, mass, hepatosplenomegaly, dis tention, or bruit noted. Extremities: No leg edema. No calf tenderness. Skin: No rash, ulcer, cellulitis. Lymphatics: No lymph node enlargement in neck, supraclavicular, infraclavicular region. Neuro: Patient is able to raise right lower extremity only up to 10-20 degrees against gravity. No tingling, numbness. Reflexes normal. Chest: Unremarkable. External Genitalia: Deferred. Rectal: Deferred. Laboratory Data: White count 8.8, hemoglobin 13.6, platelets 339. Sodium 141, potassium 3.9, chlori de 105, bicarb 30, BUN 17, creatinine 0.54, glucose 84, magnesium 2. Urinalysis negative. MRI of the brain was unremarkable from March 05, 2019. MRI of lumbar spine shows severe degenerat jose changes in the lumbar spine with active marrow edema, volume loss of L3 vertebral body, critical spinal stenosis to 5 mm at L3-L4 level. Borderline stenosis at L2-L3 and L4-L5 level. Severe bilate ral foraminal stenosis at L2-L3 and L3-L4 with moderate severe aortic foraminal stenosis at L4-L5. Impression: 1.Lumbar radiculopathy. 2.Debility. 3.Generalized weakness. 4.Lumbar spinal stenosis. 5.Compression fracture of lumbar spine L3 and L4. 6.Chronic obstructive pulmonary disease. 7.Hypertension. 8.Hypothyroidism. 9.Rheumatoid arthritis. 10.Lymphedema, legs. Plan: We will admit the patient to hospital for further evaluation and management of this problem. Patient is appropriate for inpatient and is expected to spend 2 midnights in hospital. Home medicati ons will be continued. We will give DVT prophylaxis per order. We will go ahead and start her on IV steroids and pain management. Patient is on fentanyl patch and IV pain medication on p.r.n. basis. Consult Physical Therapy. This morning, I did communicate with the pain management physician, Dr. Indra burgos, due to holiday schedule the first available appointment that I was able to get for the carl trivedi is next week on , which is March 15, 2019, at 8:30 a.m. patient should go to his office. Dr. Wolfe could have seen the patient today at his office, which was at 11 o'clock, but the carl trivedi was in no condition to get out of the hospital to make that appointment for today as she is still having significant degree of pain and significant difficulty to even get out of bed. Once her condit ion improves, our plan is to discharge her to go home, so she can keep this appointment with the Pain Management physician and I have also encouraged her to keep appointment with neurosurgeon, Dr. Westbrook . Copy of x-ray and MRI of hip and spine was faxed to Dr. Wolfe's office this morning. ARNOL/MODL Voice ID: [id number]
[2019-03-10] MEDS: ALBUTEROL 2.5 MG/3 ML NEB SOL NEB SCH ×4 (04:00→19:35)
[2019-03-10] MEDS: IPRATROPIUM BROM 0.5MG/2.5ML NEB SCH ×4 (04:00→19:35)
[2019-03-10] MEDS: ACETAMINOPHEN 500 MG TAB PO PRN ×2 (04:40→19:01)
[2019-03-10] MEDS: PANTOPRAZOLE 40MG TABLET PO SCH (06:16)
[2019-03-10] MEDS: LEVOTHYROXINE SOD 0.05 MG TABLET PO SCH (06:17)
[2019-03-10] MEDS ORDERED: TIOTROPIUM 5 SPRAYS/INHALER IH SCH (09:00)
[2019-03-10] MEDS: FAMOTIDINE 20 MG TAB PO SCH (09:23)
[2019-03-10] MEDS: LIDOCAINE 4% PATCH TOP SCH (09:23)
[2019-03-10] MEDS: DOCUSATE NA 100 MG CAP PO SCH ×2 (09:24→20:58)
[2019-03-10] MEDS ORDERED: BISACODYL 10 MG RECTAL SUPP PR ONE (11:20)
--- NOTE | 2019-03-10 14:05 | PN ---
Date of Progress Note: 03/10/2019 Subjective: Patient was seen this morning for followup. She looks little better than yesterday. Sh e reports that she is not feeling any better, but her son and I both agree that she looks little bett er than yesterday. She still has lot of pain as she reported yesterday. No new complaints or proble ms reported. She has not had a bowel movement in almost a week as reported by patient's son and yest erday she was given milk of magnesia that did not help her. Objective: Vital Signs: Reviewed. HEENT: Unremarkable. Lungs: Clear to auscultation. Heart: Sounds normal. Abdomen: Soft. Bowel sounds normal. No guarding, rigidity, tenderness, distention. Extremities: Trace nonpitting leg edema due to her lymphedema unchanged. Impression: 1.Lumbar spinal stenosis. 2.Lumbar radiculopathy. 3.Compression fracture of lumbar spine. 4.Chronic obstructive pulmonary disease. Plan: We will continue current medications. Continue IV steroid and current pain medications per or aida and physical therapy to help ambulate the patient once we know that the patient is able to safely ambulate and once we are able to achieve her pain control adequately. Plan is to discharge her to [facility] home, so she can keep appointment to see pain management physician, Dr. Wolfe for next week on and I have informed the patient's son this morning about that. She was also advised to make sure to keep appointment with the neurosurgeon, Dr. Westbrook for March 26. We will go ahead and give her Dulcolax rectal suppository today to try to see if that would help take care of her constipation prob mylene. ARNOL/MODL Voice ID: [id number] Report ID: [id number]
[2019-03-10] MEDS: MAGNESIUM HYDROXIDE 8% 30 ML PO PRN (15:17)
[2019-03-10] MEDS ORDERED: FLEET ENEMA ADULT PR PRN (17:34)
[2019-03-10] MEDS: ENOXAPARIN 40 MG/0.4 ML SQ SCH (18:59)
[2019-03-10] MEDS: ATORVASTATIN 40 MG TAB PO SCH (20:58)
[2019-03-11] MEDS: IPRATROPIUM BROM 0.5MG/2.5ML NEB SCH ×4 (01:00→20:30)
[2019-03-11] MEDS: ALBUTEROL 2.5 MG/3 ML NEB SOL NEB SCH ×5 (01:00→20:30)
[2019-03-11] MEDS: LEVOTHYROXINE SOD 0.05 MG TABLET PO SCH (05:43)
[2019-03-11] MEDS: METHYLPREDNISOLONE 40 MG INJ IV SCH ×4 (05:43→23:27)
[2019-03-11] MEDS: PANTOPRAZOLE 40MG TABLET PO SCH (05:43)
[2019-03-11] MEDS: ACETAMINOPHEN 500 MG TAB PO PRN (06:44)
[2019-03-11 07:30] LABS: Absolute Lymphocytes (CBC) 1.4 K/uL (0.7-4.9); Basophils % 0.3 % (0-1.3); MPV 6.7 fL (7.6-11.3); RBC Red Blood Cell Count 3.76 M/uL (3.86-4.86)
[2019-03-11 07:41] LABS: Magnesium 2.6 mg/dL (1.8-2.4); Potassium 4.7 mmol/L (3.5-5.1)
[2019-03-11] MEDS: GABAPENTIN 100 MG CAP PO SCH ×2 (08:16→20:19)
[2019-03-11] MEDS: DOCUSATE NA 100 MG CAP PO SCH ×2 (08:16→20:19)
[2019-03-11] MEDS: FAMOTIDINE 20 MG TAB PO SCH (08:16)
[2019-03-11] MEDS: LIDOCAINE 4% PATCH TOP SCH (08:17)
[2019-03-11] MEDS ORDERED: FENTANYL 25 MCG/PATCH TD SCH (09:00)
--- NOTE | 2019-03-11 13:16 | PN ---
Date of Progress Note: 03/11/2019 Subjective: Patient was seen this morning for followup. She was lying in bed, sleeping easily arous able, not in distress. Continues to have same complaint as yesterday. Her pain still remains at a s ignificant level the way she describes as yesterday. Yesterday, she had lot of trouble with constipa tion, did not respond to Dulcolax rectal suppository and finally she had a bowel movement with Fleet enema. Objective: Vital Signs: Reviewed. HEENT: Unremarkable. Lungs: Clear to auscultation. Heart: Sounds normal. Abdomen: Soft bowel sounds normal. No guarding, rigidity, tenderness, distention. Extremities: Trace leg edema. Known pitting unchanged. Impression: 1.Lumbar radiculopathy. 2.Chronic obstructive pulmonary disease. 3.Lumbar spinal stenosis. Plan: Patient still has significant pain in the right lower extremity and she is able to raise right lower extremity at about 15 to 20 degree against gravity and that has remained unchanged. When she does attempt to do that, she has pain in her right lower extremity, mostly in her right thigh. All t hose symptoms are unchanged. We will continue current IV steroid. Discontinue IV methocarbamol and start her on gabapentin. Continue fentanyl patch and p.r.n. use of Tylenol with codeine. Physical t herapy to assist patient to provide ambulation and once she is able to ambulate safely, we will be ab le to discharge her to go home. If she is not able to ambulate safely, then we will have to look for other options. Her blood work today white count 10.1, hemoglobin 12.1, platelets 316. Sodium 140, potassium 4.7, chloride 105, bicarb 31, BUN 19, creatinine 0.64, glucose 114. ARNOL/MODL Voice ID: [id number] Report ID: [id number]
[2019-03-11] MEDS: CODEINE 30MG/APAP 300MG TAB PO PRN ×2 (14:43→20:19)
[2019-03-11] MEDS: ENOXAPARIN 40 MG/0.4 ML SQ SCH (16:58)
[2019-03-11] MEDS: ATORVASTATIN 40 MG TAB PO SCH (20:19)
[2019-03-12] MEDS: IPRATROPIUM BROM 0.5MG/2.5ML NEB SCH ×4 (01:55→19:40)
[2019-03-12] MEDS: ALBUTEROL 2.5 MG/3 ML NEB SOL NEB SCH ×4 (01:55→19:40)
[2019-03-12] MEDS: CODEINE 30MG/APAP 300MG TAB PO PRN ×3 (02:27→22:35)
[2019-03-12] MEDS: METHYLPREDNISOLONE 40 MG INJ IV SCH ×3 (05:36→17:01)
[2019-03-12] MEDS: LEVOTHYROXINE SOD 0.05 MG TABLET PO SCH (05:36)
[2019-03-12] MEDS: PANTOPRAZOLE 40MG TABLET PO SCH (05:36)
[2019-03-12] MEDS: FAMOTIDINE 20 MG TAB PO SCH (08:36)
[2019-03-12] MEDS: GABAPENTIN 100 MG CAP PO SCH ×2 (08:37→21:48)
[2019-03-12] MEDS: DOCUSATE NA 100 MG CAP PO SCH ×2 (08:37→21:48)
[2019-03-12] MEDS: LIDOCAINE 4% PATCH TOP SCH (08:37)
[2019-03-12] MEDS: ENOXAPARIN 40 MG/0.4 ML SQ SCH (17:01)
[2019-03-12] MEDS: ATORVASTATIN 40 MG TAB PO SCH (21:48)
[2019-03-12] MEDS: MAGNESIUM HYDROXIDE 8% 30 ML PO PRN (21:55)
[2019-03-12 23:08] VITALS: O2SAT 95
[2019-03-13] MEDS: METHYLPREDNISOLONE 40 MG INJ IV SCH ×2 (00:13→09:00)
[2019-03-13] MEDS: IPRATROPIUM BROM 0.5MG/2.5ML NEB SCH ×2 (02:05→07:38)
[2019-03-13] MEDS: ALBUTEROL 2.5 MG/3 ML NEB SOL NEB SCH ×2 (02:05→07:38)
--- NOTE | 2019-03-13 02:29 | PN ---
Date of Progress Note: 03/12/2019 Subjective: Patient was seen this morning for followup. No new complaints or problems reported by janey marco a. Overall, she feels better. Her pain is better today as she reported and she looks better co mpared to yesterday. Objective: Vital Signs: Reviewed. HEENT: Unremarkable. Lungs: Clear to auscultation. Heart: Heart sounds normal. Abdomen: Soft, bowel sounds normal. No guarding, rigidity. Extremities: Trace leg edema, unchanged. Impression: 1.Lumbar radiculopathy. 2.Osteoarthritis, multiple sites. 3.Lumbar spinal stenosis. 4.Chronic obstructive pulmonary disease. 5.Chronic steroid therapy. Plan: We will continue current gabapentin, steroids. We will reduce dose of steroid from 40 mg Solu -Medrol every 6 hours to every 8 hours. Physical therapy to continue to work with the patient. Poss ible discharge to go home tomorrow depending on her conditions. Continue current pain medication. ARNOL/MODL Voice ID: [id number] Report ID: [id number]
[2019-03-13] MEDS: PANTOPRAZOLE 40MG TABLET PO SCH (05:36)
[2019-03-13] MEDS: LEVOTHYROXINE SOD 0.05 MG TABLET PO SCH (05:36)
[2019-03-13] MEDS ORDERED: predniSONE 20 MG TAB PO SCH (09:00)
[2019-03-13] MEDS: FAMOTIDINE 20 MG TAB PO SCH (09:47)
[2019-03-13] MEDS: GABAPENTIN 100 MG CAP PO SCH (09:47)
[2019-03-13] MEDS: LIDOCAINE 4% PATCH TOP SCH (09:47)
[2019-03-13] MEDS: DOCUSATE NA 100 MG CAP PO SCH (09:47)
[2019-03-13] MEDS ORDERED: FENTANYL 25 MCG/PATCH TD ONE (13:58)
[2019-03-13 17:09] VITALS: BP 170/76; TEMP 98.5
== END 2019-03-13 16:03 | disposition home health service (06) ==
LOC: ER 18:06 → ERHOLD 20:27 → INTOOBSV 20:27 → 2ND 03-09 15:09
PROVIDERS: ADMIT Internal Medicine; ATTEND Internal Medicine
DX: M48.061 Spinal stenosis, lumbar region without neurogenic claudication (principal); M54.16 Radiculopathy, lumbar region; S32.000A Wedge compression fracture of unspecified lumbar vertebra, initial encounter for closed fracture; J44.9 Chronic obstructive pulmonary disease, unspecified; M19.90 Unspecified osteoarthritis, unspecified site; I10 Essential (primary) hypertension; R53.81 Other malaise; E03.9 Hypothyroidism, unspecified; Z88.2 Allergy status to sulfonamides; Z79.52 Long term (current) use of systemic steroids
CPT/HCPCS: 96365; 87040; 85025 ×2; 80048 ×2; 36415 ×2; 83735 ×2; 81003; 97110; 97116 ×3; 97161; 97530; 94640; 94760 ×9; 96375; 96372; 99285; 96366; J1650 ×4; J1170 ×2; G0378 ×7; J2930; J2800 ×5; J2920 ×15; J7512

== ENCOUNTER 2019-03-22 14:28 | Inpatient (IN) | payer OTHER ==
--- OUTSIDE RECORDS SUMMARY | 2019-03-22 14:31 | XMS REPORT ---
:1930 [facility] Address [address] [place] [address] Dr. Marsh [address] [place] [id number] Care Team Providers Name Role Phone KIM MCKEON ZARI Unavailable Unavailable RICARDO WILSON Unavailable Unavailable Problems This patient has no known problems. Allergies, Adverse Reactions, Alerts This patient has no known allergies or adverse reactions. Medications This patient has no known medications. Results Test Description Test Time Test Comments Text Results Atomic Results Result Comments TISSUE EXAM 2017-09-20 16:22:00 Surgical Pathology Report Case: [id number] Authorizing Provider: Misha Calloway MD Collected: 09/16/2017 1538 Ordering Location: [address] Received: 09/19/2017 0820 Service Pathologist: Larry Cohn MD Specimen: Polyp, Colon - Rectosigmoid, POLYP TAKEN BY HOT SNARE RECTO-SIGMOID, POLYPECTOMY- TUBULAR ADENOMA- CAUTERIZED EDGE, NEGATIVE FOR ADENOMATOUS CHANGE Signing Pathologist Direct Phone Line: [phone] signed by Larry Cohn MD on 09/20/2017 at 4:22 [id number] bleedRectosigmoid colon polypThe specimen is received in [...] Value Reference Range Comments MAGNESIUM (BEAKER) (test wlfm=128) 1.9 mg/dL 1.6-2.6 BASIC METABOLIC [id number] 07:32:00 Test Item Value Reference Range Comments SODIUM (BEAKER) (test 138 meq/L 136-145 dpag=937) POTASSIUM (BEAKER) (test 4.2 meq/L 3.5-5.1 uzgg=271) CHLORIDE (BEAKER) (test 106 meq/L 98-107 odzx=757) CO2 (BEAKER) (test 25 meq/L 22-29 idmq=360) BLOOD UREA NITROGEN 6 mg/dL 7-21 (BEAKER) (test dxso=191) CREATININE (BEAKER) (test 0.66 mg/dL 0.57-1.25 maqx=870) GLUCOSE RANDOM (BEAKER) 76 mg/dL 70-105 (test qbjn=042) CALCIUM (BEAKER) (test 8.4 mg/dL 8.4-10.2 eivc=735) EGFR (BEAKER) (test 85 mL/min/1.73 sq m ESTIMATED GFR IS NOT fmbd=4245) ACCURATE CREATININE CLEARANCE IN PREDICTING GLOMERULAR FILTRATION RATE. ESTIMATED GFR IS NOT APPLICABLE FOR DIALYSIS PATIENTS. [id number] 06:42:00 Test Item Value Reference Range Comments PROTIME (BEAKER) (test nxdc=372) 20.8 seconds 11.7-14.7 INR (BEAKER) (test irxt=505) 1.8 <=5.9 PARTIAL THROMBOPLASTIN TIME (BEAKER) (test 36.1 seconds 22.5-36.0 txyh=235) RECOMMENDED COUMADIN/WARFARIN INR THERAPY RANGESSTANDARD DOSE: 2.0 - 3.0 Includes: PROPHYLAXIS forvenous thrombosis, systemic embolization; TREATMENT for venous thrombosis and/or pulmonary embolus.HIGH RISK: Target INR is 2.5-3.5 for patients with mechanical heart valves.CBC W/PLT COUNT & AUTO [id number] 06:41:00 Test Item Value Reference Range Comments WHITE BLOOD CELL COUNT (BEAKER) (test rihq=865) 5.5 K/ L 3.5-10.5 RED BLOOD CELL COUNT (BEAKER) (test gifu=083) 3.52 M/ L 3.93-5.22 HEMOGLOBIN (BEAKER) (test xtwm=453) 10.4 GM/DL 11.2-15.7 HEMATOCRIT (BEAKER) (test hrlf=429) 33.1 % 34.1-44.9 MEAN CORPUSCULAR VOLUME (BEAKER) (test mrtj=779) 94.0 fL 79.4-94.8 MEAN CORPUSCULAR HEMOGLOBIN (BEAKER) (test 29.5 pg 25.6-32.2 nqhu=008) MEAN CORPUSCULAR HEMOGLOBIN CONC (BEAKER) (test 31.4 GM/DL 32.2-35.5 lvib=874) RED CELL DISTRIBUTION WIDTH (BEAKER) (test 19.8 % 11.7-14.4 izlb=209) PLATELET COUNT (BEAKER) (test zrba=926) 240 K/CU MM 150-450 MEAN PLATELET VOLUME (BEAKER) (test tijs=821) 8.5 fL 9.4-12.3 NUCLEATED RED BLOOD CELLS (BEAKER) (test 0 /100 WBC 0-0 npsj=329) NEUTROPHILS RELATIVE PERCENT (BEAKER) (test 43 % sfdz=442) LYMPHOCYTES RELATIVE PERCENT (BEAKER) (test 49 % ddta=028) MONOCYTES RELATIVE PERCENT (BEAKER) (test 7 % labs=814) EOSINOPHILS RELATIVE PERCENT (BEAKER) (test 1 % bjuz=187) BASOPHILS RELATIVE PERCENT (BEAKER) (test 0 % lwlr=181) NEUTROPHILS ABSOLUTE COUNT (BEAKER) (test 2.34 K/ L 1.56-6.13 glrq=319) LYMPHOCYTES ABSOLUTE COUNT (BEAKER) (test 2.68 K/ L 1.18-3.74 hkbj=802) MONOCYTES ABSOLUTE COUNT (BEAKER) (test 0.38 K/ L 0.24-0.36 lcls=519) EOSINOPHILS ABSOLUTE COUNT (BEAKER) (test 0.05 K/ L 0.04-0.36 crpq=179) BASOPHILS ABSOLUTE COUNT (BEAKER) (test 0.02 K/ L 0.01-0.08 dysb=765) IMMATURE GRANULOCYTES-RELATIVE PERCENT (BEAKER) 0 % 0-1 (test jgld=6341) [id number] 19:07:00 Test Item Value Reference Range Comments MAGNESIUM (BEAKER) (test ntct=211) 1.9 mg/dL 1.6-2.6 BASIC METABOLIC [id number] 19:07:00 Test Item Value Reference Range Comments SODIUM (BEAKER) (test 137 meq/L 136-145 brgq=111) POTASSIUM (BEAKER) (test 3.8 meq/L 3.5-5.1 hdbn=192) CHLORIDE (BEAKER) (test 106 meq/L 98-107 nzce=056) CO2 (BEAKER) (test 23 meq/L 22-29 szaa=940) BLOOD UREA NITROGEN 6 mg/dL 7-21 (BEAKER) (test xxlz=605) CREATININE (BEAKER) (test 0.64 mg/dL 0.57-1.25 vzhi=844) GLUCOSE RANDOM (BEAKER) 82 mg/dL 70-105 (test cfum=484) CALCIUM (BEAKER) (test 8.5 mg/dL 8.4-10.2 bptx=691) EGFR (BEAKER) (test 88 mL/min/1.73 sq m ESTIMATED GFR IS NOT sxdz=2701) ACCURATE CREATININE CLEARANCE IN PREDICTING GLOMERULAR FILTRATION RATE. ESTIMATED GFR IS NOT APPLICABLE FOR DIALYSIS PATIENTS. CBC (HEMOGRAM ONLY)2017-09-16 18:38:00 Test Item Value Reference Range Comments WHITE BLOOD CELL COUNT (BEAKER) (test tuxl=985) 6.5 K/ L 3.5-10.5 RED BLOOD CELL COUNT (BEAKER) (test paee=735) 3.61 M/ L 3.93-5.22 HEMOGLOBIN (BEAKER) (test texy=281) 10.9 GM/DL 11.2-15.7 HEMATOCRIT (BEAKER) (test drpy=040) 33.5 % 34.1-44.9 MEAN CORPUSCULAR VOLUME (BEAKER) (test mhrz=024) 92.8 fL 79.4-94.8 MEAN CORPUSCULAR HEMOGLOBIN (BEAKER) (test 30.2 pg 25.6-32.2 tudy=985) MEAN CORPUSCULAR HEMOGLOBIN CONC (BEAKER) (test 32.5 GM/DL 32.2-35.5 whtp=002) RED CELL DISTRIBUTION WIDTH (BEAKER) (test 19.8 % 11.7-14.4 ribq=552) PLATELET COUNT (BEAKER) (test hymq=883) 239 K/CU MM 150-450 MEAN PLATELET VOLUME (BEAKER) (test lgxq=749) 8.7 fL 9.4-12.3 NUCLEATED RED BLOOD CELLS (BEAKER) (test 0 /100 WBC 0-0 hloy=911) [id number] 06:56:00 Test Item Value Reference Range Comments PHOSPHORUS (BEAKER) (test alcn=178) 2.7 mg/dL 2.3-4.7 [id number] 06:56:00 Test Item Value Reference Range Comments MAGNESIUM (BEAKER) (test acak=099) 1.9 mg/dL 1.6-2.6 BASIC METABOLIC [id number] 06:56:00 Test Item Value Reference Range Comments SODIUM (BEAKER) (test 139 meq/L 136-145 brqz=149) POTASSIUM (BEAKER) (test 4.1 meq/L 3.5-5.1 ylwb=135) CHLORIDE (BEAKER) (test 107 meq/L 98-107 tstb=408) CO2 (BEAKER) (test 26 meq/L 22-29 pjkt=724) BLOOD UREA NITROGEN 11 mg/dL 7-21 (BEAKER) (test rikc=869) CREATININE (BEAKER) (test 0.73 mg/dL 0.57-1.25 deib=893) GLUCOSE RANDOM (BEAKER) 107 mg/dL 70-105 (test xetj=506) CALCIUM (BEAKER) (test 8.5 mg/dL 8.4-10.2 ante=958) EGFR (BEAKER) (test 76 mL/min/1.73 sq m ESTIMATED GFR IS NOT kcif=2380) ACCURATE CREATININE CLEARANCE IN PREDICTING GLOMERULAR FILTRATION RATE. ESTIMATED GFR IS NOT APPLICABLE FOR DIALYSIS PATIENTS. HEPATIC FUNCTION [id number] 06:56:00 Test Item Value Reference Range Comments TOTAL PROTEIN (BEAKER) (test qqdi=898) 5.2 gm/dL 6.0-8.3 ALBUMIN (BEAKER) (test nigy=2954) 2.9 g/dL 3.5-5.0 BILIRUBIN TOTAL (BEAKER) (test jcas=992) 0.8 mg/dL 0.2-1.2 BILIRUBIN DIRECT (BEAKER) (test cpff=261) 0.4 mg/dL 0.1-0.5 ALKALINE PHOSPHATASE (BEAKER) (test qsup=822) 43 U/L 40-150 AST (SGOT) (BEAKER) (test viee=388) 13 U/L 5-34 ALT (SGPT) (BEAKER) (test nxto=524) 10 U/L 6-55 CALCIUM, [id number] 06:36:00 Test Item Value Reference Range Comments CALCIUM IONIZED (BEAKER) (test hzna=777) 1.05 mmol/L 1.12-1.27 PH, BLOOD (BEAKER) (test hiul=6941) 7.46 PROTHROMBIN [id number] 06:35:00 Test Item Value Reference Range Comments PROTIME (BEAKER) (test pabm=791) 14.2 seconds 11.7-14.7 INR (BEAKER) (test chlu=610) 1.1 <=5.9 RECOMMENDED COUMADIN/WARFARIN INR THERAPY RANGESSTANDARD DOSE: 2.0 - 3.0 Includes: PROPHYLAXIS forvenous thrombosis, systemic embolization; TREATMENT for venous thrombosis and/or pulmonary embolus.HIGH RISK: Target INR is 2.5-3.5 for patients with mechanical heart valves.CBC W/PLT COUNT & AUTO [id number] 06:25:00 Test Item Value Reference Range Comments WHITE BLOOD CELL COUNT (BEAKER) (test doic=361) 9.4 K/ L 3.5-10.5 RED BLOOD CELL COUNT (BEAKER) (test hdhn=383) 3.48 M/ L 3.93-5.22 HEMOGLOBIN (BEAKER) (test dvkl=876) 10.0 GM/DL 11.2-15.7 HEMATOCRIT (BEAKER) (test bzxu=785) 31.1 % 34.1-44.9 MEAN CORPUSCULAR VOLUME (BEAKER) (test bbsu=721) 89.4 fL 79.4-94.8 MEAN CORPUSCULAR HEMOGLOBIN (BEAKER) (test 28.7 pg 25.6-32.2 cbvm=853) MEAN CORPUSCULAR HEMOGLOBIN CONC (BEAKER) (test 32.2 GM/DL 32.2-35.5 vnox=786) RED CELL DISTRIBUTION WIDTH (BEAKER) (test 18.3 % 11.7-14.4 lqqw=832) PLATELET COUNT (BEAKER) (test wzzv=659) 234 K/CU MM 150-450 MEAN PLATELET VOLUME (BEAKER) (test oehu=986) 8.9 fL 9.4-12.3 NUCLEATED RED BLOOD CELLS (BEAKER) (test 0 /100 WBC 0-0 ufta=015) NEUTROPHILS RELATIVE PERCENT (BEAKER) (test 70 % mrrw=792) LYMPHOCYTES RELATIVE PERCENT (BEAKER) (test 24 % hvnp=483) MONOCYTES RELATIVE PERCENT (BEAKER) (test 5 % tmnk=052) EOSINOPHILS RELATIVE PERCENT (BEAKER) (test 0 % fytd=091) BASOPHILS RELATIVE PERCENT (BEAKER) (test 0 % jnpc=263) NEUTROPHILS ABSOLUTE COUNT (BEAKER) (test 6.54 K/ L 1.56-6.13 oyld=426) LYMPHOCYTES ABSOLUTE COUNT (BEAKER) (test 2.30 K/ L 1.18-3.74 dqis=704) MONOCYTES ABSOLUTE COUNT (BEAKER) (test 0.50 K/ L 0.24-0.36 dvgw=721) EOSINOPHILS ABSOLUTE COUNT (BEAKER) (test 0.03 K/ L 0.04-0.36 boxt=653) BASOPHILS ABSOLUTE COUNT (BEAKER) (test 0.02 K/ L 0.01-0.08 jowo=707) IMMATURE GRANULOCYTES-RELATIVE PERCENT (BEAKER) 0 % 0-1 (test gprs=2242) TISSUE [id number] 14:52:00Surgical Pathology Report Case: [id number] Authorizing Provider: Ricardo Wilson MD Collected: 08/02/2017 1715 Ordering Location: [facility] Endoscopy Received: 08/03/2017 0837 Services Pathologist: Larry Cohn MD Specimen: Rectal, MASS- TAKEN BY ESD, ON WAX, EVALUATE MARGINS RECTAL, 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)- NEGATIVE FOR HIGH GRADE DYSPLASIA OR CARCINOMA- PERIPHERAL MARGINS, NEGATIVE FOR ADENOMATOUS CHANGE Signing Pathologist Direct Phone Line: [phone] signed by Larry Cohn MD on 08/04/2017 at 2:52 [id number] Rectal mass Received in formalin labeled [...] the diagnostic line.CBC W/PLT COUNT & AUTO [id number] 06:19:00 Test Item Value Reference Range Comments WHITE BLOOD CELL COUNT (BEAKER) (test tkfc=080) 15.6 K/ L 3.5-10.5 RED BLOOD CELL COUNT (BEAKER) (test hevr=035) 3.50 M/ L 3.93-5.22 HEMOGLOBIN (BEAKER) (test rccr=449) 9.9 GM/DL 11.2-15.7 HEMATOCRIT (BEAKER) (test acvv=945) 31.4 % 34.1-44.9 MEAN CORPUSCULAR VOLUME (BEAKER) (test htts=758) 89.7 fL 79.4-94.8 MEAN CORPUSCULAR HEMOGLOBIN (BEAKER) (test 28.3 pg 25.6-32.2 ldbe=755) MEAN CORPUSCULAR HEMOGLOBIN CONC (BEAKER) (test 31.5 GM/DL 32.2-35.5 myec=561) RED CELL DISTRIBUTION WIDTH (BEAKER) (test 18.0 % 11.7-14.4 uuan=763) PLATELET COUNT (BEAKER) (test axul=076) 223 K/CU MM 150-450 MEAN PLATELET VOLUME (BEAKER) (test wscy=799) 8.7 fL 9.4-12.3 NUCLEATED RED BLOOD CELLS (BEAKER) (test 0 /100 WBC 0-0 xpgn=807) NEUTROPHILS RELATIVE PERCENT (BEAKER) (test 81 % jhpq=397) LYMPHOCYTES RELATIVE PERCENT (BEAKER) (test 15 % qtqc=017) MONOCYTES RELATIVE PERCENT (BEAKER) (test 4 % thxe=555) EOSINOPHILS RELATIVE PERCENT (BEAKER) (test 0 % ymne=314) BASOPHILS RELATIVE PERCENT (BEAKER) (test 0 % jqig=586) NEUTROPHILS ABSOLUTE COUNT (BEAKER) (test 12.56 K/ L 1.56-6.13 whph=595) LYMPHOCYTES ABSOLUTE COUNT (BEAKER) (test 2.36 K/ L 1.18-3.74 bgqz=267) MONOCYTES ABSOLUTE COUNT (BEAKER) (test 0.56 K/ L 0.24-0.36 hhzq=696) EOSINOPHILS ABSOLUTE COUNT (BEAKER) (test 0.03 K/ L 0.04-0.36 yejz=756) BASOPHILS ABSOLUTE COUNT (BEAKER) (test 0.02 K/ L 0.01-0.08 cjwc=681) IMMATURE GRANULOCYTES-RELATIVE PERCENT (BEAKER) 0 % 0-1 (test ywyk=8436) HEPATIC FUNCTION [id number] 06:15:00 Test Item Value Reference Range Comments TOTAL PROTEIN (BEAKER) (test wtot=420) 4.9 gm/dL 6.0-8.3 ALBUMIN (BEAKER) (test hfkb=2284) 2.8 g/dL 3.5-5.0 BILIRUBIN TOTAL (BEAKER) (test isuv=391) 1.1 mg/dL 0.2-1.2 BILIRUBIN DIRECT (BEAKER) (test plqo=016) 0.5 mg/dL 0.1-0.5 ALKALINE PHOSPHATASE (BEAKER) (test xjfo=462) 42 U/L 40-150 AST (SGOT) (BEAKER) (test loyz=524) 15 U/L 5-34 ALT (SGPT) (BEAKER) (test szep=755) 12 U/L 6-55 BASIC METABOLIC [id number] 06:15:00 Test Item Value Reference Range Comments SODIUM (BEAKER) (test 139 meq/L 136-145 ypwv=075) POTASSIUM (BEAKER) (test 4.6 meq/L 3.5-5.1 yeqv=528) CHLORIDE (BEAKER) (test 108 meq/L 98-107 xowt=491) CO2 (BEAKER) (test 25 meq/L 22-29 zass=561) BLOOD UREA NITROGEN 13 mg/dL 7-21 (BEAKER) (test sshv=130) CREATININE (BEAKER) (test 0.73 mg/dL 0.57-1.25 qdgp=752) GLUCOSE RANDOM (BEAKER) 115 mg/dL 70-105 (test ouja=424) CALCIUM (BEAKER) (test 8.5 mg/dL 8.4-10.2 iwkz=345) EGFR (BEAKER) (test 76 mL/min/1.73 sq m ESTIMATED GFR IS NOT erck=8016) ACCURATE CREATININE CLEARANCE IN PREDICTING GLOMERULAR FILTRATION RATE. ESTIMATED GFR IS NOT APPLICABLE FOR DIALYSIS PATIENTS. PROTHROMBIN [id number] 05:59:00 Test Item Value Reference Range Comments PROTIME (BEAKER) (test zknb=373) 14.6 seconds 11.7-14.7 INR (BEAKER) (test kjcx=238) 1.1 <=5.9 RECOMMENDED COUMADIN/WARFARIN INR THERAPY RANGESSTANDARD DOSE: 2.0 - 3.0 Includes: PROPHYLAXIS forvenous thrombosis, systemic embolization; TREATMENT for venous thrombosis and/or pulmonary embolus.HIGH RISK: Target INR is 2.5-3.5 for patients with mechanical heart valves.URINALYSIS W/ [id number] 14 :53:00 Test Item Value Reference Range Comments COLOR (BEAKER) (test tljn=373) Yellow CLARITY (BEAKER) (test axqo=111) Clear SPECIFIC GRAVITY UA (BEAKER) (test qpmr=620) 1.010 1.001-1.035 PH UA (BEAKER) (test hvlp=137) 5.5 5.0-8.0 PROTEIN UA (BEAKER) (test syod=408) Negative Negative GLUCOSE UA (BEAKER) (test barr=573) Negative Negative KETONES UA (BEAKER) (test acya=754) Trace Negative BILIRUBIN UA (BEAKER) (test elgq=806) Negative Negative BLOOD UA (BEAKER) (test hzbd=133) Negative Negative NITRITE UA (BEAKER) (test gcyi=681) Negative Negative LEUKOCYTE ESTERASE UA (BEAKER) (test kyiu=537) Negative Negative UROBILINOGEN UA (BEAKER) (test wbmj=535) 0.2 mg/dL 0.2-1.0 RBC UA (BEAKER) (test vkcb=706) 1 /HPF WBC UA (BEAKER) (test npvs=820) 3 /HPF MUCUS (BEAKER) (test bgvi=7811) Few SQUAMOUS EPITHELIAL (BEAKER) (test vvih=205) < /HPF HYALINE CASTS (BEAKER) (test acng=447) 2 /LPF SOURCE(BEAKER) (test swnu=2015) HEPATIC FUNCTION [id number] 06:31:00 Test Item Value Reference Range Comments TOTAL PROTEIN (BEAKER) (test scal=727) 5.2 gm/dL 6.0-8.3 ALBUMIN (BEAKER) (test kpww=7421) 3.1 g/dL 3.5-5.0 BILIRUBIN TOTAL (BEAKER) (test mide=502) 1.1 mg/dL 0.2-1.2 BILIRUBIN DIRECT (BEAKER) (test pyth=948) 0.5 mg/dL 0.1-0.5 ALKALINE PHOSPHATASE (BEAKER) (test tjog=229) 47 U/L 40-150 AST (SGOT) (BEAKER) (test lpuv=924) 20 U/L 5-34 ALT (SGPT) (BEAKER) (test dorz=337) 15 U/L 6-55 BASIC METABOLIC [id number] 06:31:00 Test Item Value Reference Range Comments SODIUM (BEAKER) (test 139 meq/L 136-145 rzug=056) POTASSIUM (BEAKER) (test 2.7 meq/L 3.5-5.1 wonn=886) CHLORIDE (BEAKER) (test 106 meq/L 98-107 nabl=144) CO2 (BEAKER) (test 24 meq/L 22-29 ijav=774) BLOOD UREA NITROGEN 7 mg/dL 7-21 (BEAKER) (test tkca=274) CREATININE (BEAKER) (test 0.61 mg/dL 0.57-1.25 zfua=417) GLUCOSE RANDOM (BEAKER) 88 mg/dL 70-105 (test jewp=372) CALCIUM (BEAKER) (test 8.4 mg/dL 8.4-10.2 txbn=406) EGFR (BEAKER) (test 93 mL/min/1.73 sq m ESTIMATED GFR IS NOT vivc=4991) ACCURATE CREATININE CLEARANCE IN PREDICTING GLOMERULAR FILTRATION RATE. ESTIMATED GFR IS NOT APPLICABLE FOR DIALYSIS PATIENTS. BASIC METABOLIC [id number] 06:30:00 Test Item Value Reference Range Comments SODIUM (BEAKER) (test 136 meq/L 136-145 mbrg=351) POTASSIUM (BEAKER) (test 3.0 meq/L 3.5-5.1 Specimen slightly yvxa=837) hemolyzed CHLORIDE (BEAKER) (test 106 meq/L 98-107 rpgj=042) CO2 (BEAKER) (test 20 meq/L 22-29 ymti=775) BLOOD UREA NITROGEN 7 mg/dL 7-21 (BEAKER) (test hodb=466) CREATININE (BEAKER) (test 0.61 mg/dL 0.57-1.25 Specimen slightly jzsp=554) hemolyzed GLUCOSE RANDOM (BEAKER) 81 mg/dL 70-105 (test vmsu=040) CALCIUM (BEAKER) (test 8.2 mg/dL 8.4-10.2 jwij=127) EGFR (BEAKER) (test 93 mL/min/1.73 sq m ESTIMATED GFR IS NOT tmnf=3873) ACCURATE CREATININE CLEARANCE IN PREDICTING GLOMERULAR FILTRATION RATE. ESTIMATED GFR IS NOT APPLICABLE FOR DIALYSIS PATIENTS. CBC W/PLT COUNT & AUTO [id number] 06:25:00 Test Item Value Reference Range Comments WHITE BLOOD CELL COUNT (BEAKER) (test qmnc=897) 14.6 K/ L 3.5-10.5 RED BLOOD CELL COUNT (BEAKER) (test aquo=124) 3.75 M/ L 3.93-5.22 HEMOGLOBIN (BEAKER) (test gxbg=038) 10.5 GM/DL 11.2-15.7 HEMATOCRIT (BEAKER) (test brwu=178) 33.1 % 34.1-44.9 MEAN CORPUSCULAR VOLUME (BEAKER) (test wuzq=864) 88.3 fL 79.4-94.8 MEAN CORPUSCULAR HEMOGLOBIN (BEAKER) (test 28.0 pg 25.6-32.2 zjuy=043) MEAN CORPUSCULAR HEMOGLOBIN CONC (BEAKER) (test 31.7 GM/DL 32.2-35.5 ndrd=654) RED CELL DISTRIBUTION WIDTH (BEAKER) (test 17.5 % 11.7-14.4 lroc=664) PLATELET COUNT (BEAKER) (test ppwb=290) 246 K/CU MM 150-450 MEAN PLATELET VOLUME (BEAKER) (test dtoz=579) 8.9 fL 9.4-12.3 NUCLEATED RED BLOOD CELLS (BEAKER) (test 0 /100 WBC 0-0 iiwf=301) NEUTROPHILS RELATIVE PERCENT (BEAKER) (test 88 % ifxc=825) LYMPHOCYTES RELATIVE PERCENT (BEAKER) (test 5 % tiwa=813) MONOCYTES RELATIVE PERCENT (BEAKER) (test 6 % jkkv=327) EOSINOPHILS RELATIVE PERCENT (BEAKER) (test 0 % pzop=666) BASOPHILS RELATIVE PERCENT (BEAKER) (test 0 % tcle=951) NEUTROPHILS ABSOLUTE COUNT (BEAKER) (test 12.85 K/ L 1.56-6.13 dwiz=350) LYMPHOCYTES ABSOLUTE COUNT (BEAKER) (test 0.71 K/ L 1.18-3.74 ylyn=644) MONOCYTES ABSOLUTE COUNT (BEAKER) (test 0.94 K/ L 0.24-0.36 hctx=118) EOSINOPHILS ABSOLUTE COUNT (BEAKER) (test 0.00 K/ L 0.04-0.36 mwtn=126) BASOPHILS ABSOLUTE COUNT (BEAKER) (test 0.02 K/ L 0.01-0.08 bziw=105) IMMATURE GRANULOCYTES-RELATIVE PERCENT (BEAKER) 1 % 0-1 (test mugb=5609) PROTHROMBIN [id number] 06:21:00 Test Item Value Reference Range Comments PROTIME (BEAKER) (test soxo=173) 13.5 seconds 11.7-14.7 INR (BEAKER) (test dqtb=759) 1.0 <=5.9 RECOMMENDED COUMADIN/WARFARIN INR THERAPY RANGESSTANDARD DOSE: 2.0 - 3.0 Includes: PROPHYLAXIS forvenous thrombosis, systemic embolization; TREATMENT for venous thrombosis and/or pulmonary embolus.HIGH RISK: Target INR is 2.5-3.5 for patients with mechanical heart valves.
[2019-03-22] MEDS ORDERED: DIAZEPAM 10 MG/2 ML INJ SYRINGE ONE (15:41)
[2019-03-22] MEDS ORDERED: FENTANYL CITR 100 MCG/2 ML ONE ×2 (15:41→19:10)
[2019-03-22] MEDS ORDERED: ONDANSETRON 4 MG/2 ML VIAL ONE (15:41)
[2019-03-22 16:19] LABS: Absolute Lymphocytes (CBC) 2.2 K/uL (0.7-4.9); Basophils % 0.2 % (0-1.3); Hematocrit 39.5 % (36.0-45.0); Lymphocytes % 9.3 % (15.3-44.8); MPV 7.1 fL (7.6-11.3); RBC Red Blood Cell Count 4.07 M/uL (3.86-4.86)
[2019-03-22 16:22] LABS: Protime INR 0.9
[2019-03-22 16:40] LABS: Albumin 2.7 g/dL (3.4-5.0); Bilirubin Total 0.6 mg/dL (0.2-1.0); Potassium 4.5 mmol/L (3.5-5.1)
--- NOTE | 2019-03-22 16:47 | RAD REPORT ---
EXAM DESCRIPTION: US - Extremity Venous Uni Ltd - 03/22/2019 4:41 pm CLINICAL HISTORY: leg swelling Leg swelling and edema. COMPARISON: Extrem Venous W Compress Jacob dated 01/10/2018 FINDINGS: Left lower extremity venous system was interrogated with Doppler technique. Normal flow, c ompressibility and augmentation was noted. There is no DVT present. IMPRESSION: No evidence of left lower extremity deep venous thrombosis.
[2019-03-22 16:50] LABS: Blood Morphology Comment NOT SEEN (NOT SEEN); Platelet Estimate ADEQ; Toxic Granulation 1+
--- NOTE | 2019-03-22 17:45 | RAD REPORT ---
EXAM DESCRIPTION: CT - Chest For Pe Angio - 03/22/2019 5:23 pm CLINICAL HISTORY: Chest pain. left lower chest pain COMPARISON: Chest For Pe Angio dated 10/10/2018; Abdomen Pelvis W Contrast dated 03/22/2019 TECHNIQUE: CT angiogram of the pulmonary arteries was performed with MIP. All CT scans are performed using dose optimization technique as appropriate and may include automated exposure control or mA/KV adjustment according to patient size. FINDINGS: No evidence of pulmonary thromboembolism. No acute aortic finding demonstrated. Areas of tree-in-bud opacity are seen in the right upper lobe and the posterior aspect of the right u pper lobe suggesting mild areas of aspiration. No focal infiltrate is detected. No significant pericardial or pleural fluid. No concerning bony finding. IMPRESSION: No evidence of pulmonary thromboembolism.
--- NOTE | 2019-03-22 17:47 | RAD REPORT ---
EXAM DESCRIPTION: CTAbdomen Pelvis W Contrast - 03/22/2019 5:23 pm CLINICAL HISTORY: Abdominal pain. lower back pain, constipation COMPARISON: Abdomen Pelvis W Contrast dated 01/11/2019; Abdomen Pelvis W Contrast dated 9; Abdomen Pelvis W Contrast dated 08/15/2018; Abdomen Pelvis W Contrast dated 12/07/2017 TECHNIQUE: Biphasic CT imaging of the abdomen and pelvis was performed with 100 ml non-ionic IV cont rast. All CT scans are performed using dose optimization technique as appropriate and may include automated exposure control or mA/KV adjustment according to patient size. FINDINGS: The lung bases are clear. Cholecystectomy clips are seen. Intrahepatic biliary tree is mildly prominent. No aggressive liver le sandra could the spleen, adrenal glands and kidneys are within normal limits. Pancreatic duct is slight ly prominent, unchanged. No bowel obstruction, free air, free fluid or abscess. Prominent sigmoid diverticulosis coli is prese nt without diverticulitis. Prominent retained stool is seen in the colon, particularly the right colo n. The appendix is not identified as a discrete structure, however, no secondary findings of appendic itis are identified. No evidence of significant lymphadenopathy. Mild lumbar degenerative changes. IMPRESSION: Prominent retained stool in the colon with significant sigmoid diverticulosis coli. No f inding to indicate diverticulitis.
--- NOTE | 2019-03-22 18:05 | EDPHYS ---
Physician Documentation [facility] Name: Elva Jenkins Age: 88 yrs Sex: Female : 1930 Arrival Date: 03/22/2019 Time: 14:32 Bed 20 Private MD: SANDER Physician Tommy Reyes HPI: 03/22 15:28 This 88 yrs old Female presents to ER via EMS with complaints of Back Pain. jmm 15:28 The patient presents with pain that is chronic. Onset: The symptoms/episode jmm began/occurred gradually, 2 month(s) ago. The pain radiates to the right leg. Associated signs and symptoms: Pertinent negatives: incontinence. Modifying factors: The patient symptoms are alleviated by This is an 88 year old female with a history of arthritis, COPD, depression, GERD, HLP, that presents to the ED with complaints of left sided rib pain, low back pain with radiation down the right leg. Son states the patient has had multiple episodes which have increased in intensity over the past 2 months. Patient was recently admitted for intractable pain last month. Pain is minimally relieved with prescribed medication. Son states the patient also injured her left lower leg recently with redness, and increased pain to the area today. . Historical: - Allergies: 14:36 Asacol; ph 14:36 Humira; ph 14:36 Methotrexate; ph 14:36 Orencia; ph 14:36 Phenergan; ph 14:36 Sulfazine; ph - Home Meds: 20:21 levothyroxine 50 mcg tab 1 tab once daily [Active]; Spiriva with HandiHaler 18 mcg ca1 inhalation CpDv 1 cap once daily [Active]; omeprazole 40 mg Oral cpDR 1 cap once daily [Active]; prednisone 5 mg Oral tab 2 tabs once daily [Active]; paroxetine HCl 40 mg Oral tab 1 tab once daily [Active]; albuterol sulfate 2.5 mg /3 mL (0.083 %) Inhl nebu 3 mL 3 times per day [Active]; benzonatate 200 mg Oral cap 1 cap 3 times per day [Active]; atorvastatin 40 mg Oral tab 1 tab once daily [Active]; famotidine 20 mg Oral tab 1 tab once daily [Active]; Symbicort 160-4.5 mcg/actuation inhalation HFAA 2 puffs 2 times per day [Active]; melatonin 3 mg Oral tab 2 tab nightly [Active]; albuterol sulfate 90 mcg/actuation Inhl HFAA 2 puffs every 6 hours [Active]; gabapentin 100 mg oral cap 1 caps 3 times per day [Active]; - PMHx: 14:36 Arthritis; COPD; Depression; GERD; Hyperlipidemia; Hypothyroidism; ph - Immunization history:: Adult Immunizations up to date. - Social history:: Smoking status: Patient/guardian denies using tobacco. - Ebola Screening: : Patient negative for fever greater than or equal to 101.5 degrees Fahrenheit, and additional compatible Ebola Virus Disease symptoms Patient denies exposure to infectious person Patient denies travel to an Ebola-affected area in the 21 days before illness onset No symptoms or risks identified at this time. ROS: 15:28 Constitutional: Negative for fever, chills, and weight loss. jmm 15:28 Cardiovascular: Negative for chest pain, palpitations, and edema, Respiratory: Negative for shortness of breath, cough, wheezing, and pleuritic chest pain. 15:28 Abdomen/GI: Positive for abdominal pain, constipation. 15:28 Back: Positive for pain with movement. 15:28 Neuro: Negative for weakness. 15:28 All other systems are negative. Exam: 15:28 Head/Face: atraumatic. Eyes: EOMI, no conjunctival erythema appreciated ENT: Moist jmm Mucus Membranes Neck: Trachea midline, Supple Chest/axilla: Normal chest wall appearance and motion. Cardiovascular: Regular rate and rhythm. No edema appreciated Respiratory: Normal respirations, no respiratory distress appreciated Abdomen/GI: Non distended, soft 15:28 Constitutional: The patient appears alert, awake, in obvious pain, uncomfortable. 15:28 Musculoskeletal/extremity: bilateral pedal edema is appreciated. 15:28 Skin: erythema and induration noted to the left lower leg. 15:28 Neuro: Orientation: is normal, Mentation: is normal, Memory: is normal, extensor hallucis longus is intact. 15:28 Psych: Behavior/mood is pleasant, cooperative. Vital Signs: 14:35 BP 138 / 67; Pulse 85; Resp 18; Temp 98.0; Pulse Ox 95% on R/A; Weight 81.65 kg; Pain ph 10/10; 16:03 BP 115 / 56; Pulse 84; Resp 18; Temp 98.5(O); Pulse Ox 96% on R/A; mh5 18:30 BP 148 / 93; Pulse 87; Resp 20; Temp 98.1(O); Pulse Ox 95% on R/A; Pain 10/10; mh5 19:36 BP 125 / 59; Pulse 73; Resp 17 S; Pulse Ox 94% on R/A; ca1 20:45 BP 114 / 49; Pulse 76; Resp 17 S; Pulse Ox 93% on R/A; ca1 MDM: 15:13 Patient medically screened. [place] 18:03 Data reviewed: vital signs, nurses notes. Counseling: I had a detailed discussion with orlando the patient and/or guardian regarding: the historical points, exam findings, and any diagnostic results supporting the discharge/admit diagnosis, lab results, the need for further work-up and treatment in the hospital. ED course: I discussed the patient with Dr. Pollock whom accepted admission. 03/22 15:25 Order name: CBC with Diff; Complete Time: 17:06 [facility] 03/22 15:25 Order name: CMP; Complete Time: 16:44 [facility] 03/22 15:25 Order name: ESR; Complete Time: 17:06 [facility] 03/22 15:25 Order name: Procalcitonin; Complete Time: 17:06 [facility] 03/22 15:26 Order name: Lactate; Complete Time: 16:39 [facility] 03/22 15:46 Order name: Troponin (emerg Dept Use Only); Complete Time: 17:06 [facility] 03/22 15:43 Order name: US Extremity Venous Unilateral Ltd; Complete Time: 17:06 [facility] 03/22 15:46 Order name: PT-INR; Complete Time: 16:44 [facility] 03/22 16:50 Order name: Manual Differential; Complete Time: 17:06 [facility] 03/22 17:47 Order name: Urine Culture [facility] 03/22 18:34 Order name: Urine Dipstick--Ancillary (enter results) eb 03/22 18:45 Order name: Urine Dipstick-Ancillary [facility] 03/22 15:11 Order name: Saline Lock; Complete Time: 16:12 [facility] 03/22 15:45 Order name: CT Chest For PE Angio; Complete Time: 17:48 [facility] 03/22 15:45 Order name: CT Abd/Pelvis - IV Contrast Only; Complete Time: 17:49 [facility] 03/22 17:47 Order name: Urine Dipstick-Ancillary (obtain specimen); Complete Time: 18:16 jm Administered Medications: 16:11 Drug: Zofran 4 mg Route: IVP; Site: left antecubital; ca1 16:52 Follow up: Response: No adverse reaction; Nausea is decreased ca1 16:13 Drug: fentaNYL (PF) 25 mcg {Note: RASS 0.} Route: IVP; Site: left antecubital; ca1 16:52 Follow up: Response: No adverse reaction; Pain is decreased; RASS: Alert and Calm (0) ca1 16:17 Drug: Valium 2 mg Route: IVP; Site: left antecubital; ca1 16:52 Follow up: Response: No adverse reaction; Pain is decreased; RASS: Alert and Calm (0) ca1 18:10 Drug: LevaQUIN 750 mg Volume: 150 ml; Route: IVPB; Infused Over: 90 mins; Site: right ca1 antecubital; 20:48 Follow up: Response: No adverse reaction; IV Status: Completed infusion ca1 19:02 Drug: fentaNYL (PF) 25 mcg Route: IVP; Site: right antecubital; ca1 19:37 Follow up: Response: No adverse reaction; Pain is decreased; RASS: Alert and Calm (0) ca1 20:48 Drug: vancoMYCIN 1 grams Route: IVPB; Infused Over: 2 hrs; Site: left antecubital; ca1 20:53 Follow up: IV Status: Infusion continued upon admission ca1 Disposition: 03/23 08:33 Co-signature as Attending Physician, Tommy Reyes MD I agree with the assessment and [facility] plan of care. Disposition: 03/22/19 18:05 Hospitalization ordered by Bharti Pollock for Inpatient Admission. Preliminary diagnosis are Cellulitis of the Left Lower Extremity, Leukocystosis, Sciatica. - Bed requested for Telemetry/MedSurg (Inpatient). - Status is Inpatient Admission. ca1 - Condition is Stable. - Problem is new. - Symptoms are unchanged. UTI on Admission? No Signatures: Dispatcher [employer] Tommy Selby MD MD cha Mickail, Joel, PA PA jmm Hall, Patricia, RN RN ph Garcia, Cindy, RN RN Livia Wall RN RN ca1 Corrections: (The following items were deleted from the chart) 03/22 15:49 15:26 Chest Abdomen Pelvis W Con+CT.MULU ordered. EDND EDND 15:50 15:26 Lumbar Spine Wo Con+MRI.MULU ordered. EDND EDND 20:05 18:05 Hospitalization Ordered by A Maris PALOMARES for Inpatient Admission. Preliminary cg diagnosis is Cellulitis of the Left Lower Extremity; Leukocystosis; Sciatica. Bed requested for Telemetry/MedSurg (Inpatient). Status is Inpatient Admission. Condition is Stable. Problem is new. Symptoms are unchanged. UTI on Admission? No. [facility] 21:25 20:05 03/22/2019 18:05 Hospitalization Ordered by A Maris PALOMARES for Inpatient Admission. ca1 Preliminary diagnosis is Cellulitis of the Left Lower Extremity; Leukocystosis; Sciatica. Bed requested for Telemetry/MedSurg (Inpatient). Status is Inpatient Admission. Condition is Stable. Problem is new. Symptoms are unchanged. UTI on Admission? No. cg
--- NOTE | 2019-03-22 18:05 | ER ---
Nurse's Notes [facility] Name: Elva Jenkins Age: 88 yrs Sex: Female : 1930 Arrival Date: 03/22/2019 Time: 14:32 Bed 20 Private MD: Diagnosis: Cellulitis of the Left Lower Extremity;Leukocystosis;Sciatica Presentation: 03/22 14:32 Presenting complaint: EMS states: Pt c/o low back pain, pain is chronic r/t compression ph fractures, took hydrocodone approx 45 min ago w/ no relief, rates pain 10/10, also c/o L leg pain and pain beneath ribs on L side, denies falling, swelling noted to L lower leg. Transition of care: patient was received from another setting of care (long-term care facility), [facility]. Onset of symptoms was March 22, 2019. Risk Assessment: Do you want to hurt yourself or someone else? Patient reports no desire to harm self or others. Initial Sepsis Screen: Does the patient meet any 2 criteria? No. Patient's initial sepsis screen is negative. Does the patient have a suspected source of infection? No. Patient's initial sepsis screen is negative. Care prior to arrival: None. 14:32 Method Of Arrival: EMS: [facility] ph 14:32 Acuity: TAV[place] 3 ph Historical: - Allergies: 14:36 Asacol; ph 14:36 Humira; ph 14:36 Methotrexate; ph 14:36 Orencia; ph 14:36 Phenergan; ph 14:36 Sulfazine; ph - Home Meds: 20:21 levothyroxine 50 mcg tab 1 tab once daily [Active]; Spiriva with HandiHaler 18 mcg ca1 inhalation CpDv 1 cap once daily [Active]; omeprazole 40 mg Oral cpDR 1 cap once daily [Active]; prednisone 5 mg Oral tab 2 tabs once daily [Active]; paroxetine HCl 40 mg Oral tab 1 tab once daily [Active]; albuterol sulfate 2.5 mg /3 mL (0.083 %) Inhl nebu 3 mL 3 times per day [Active]; benzonatate 200 mg Oral cap 1 cap 3 times per day [Active]; atorvastatin 40 mg Oral tab 1 tab once daily [Active]; famotidine 20 mg Oral tab 1 tab once daily [Active]; Symbicort 160-4.5 mcg/actuation inhalation HFAA 2 puffs 2 times per day [Active]; melatonin 3 mg Oral tab 2 tab nightly [Active]; albuterol sulfate 90 mcg/actuation Inhl HFAA 2 puffs every 6 hours [Active]; gabapentin 100 mg oral cap 1 caps 3 times per day [Active]; - PMHx: 14:36 Arthritis; COPD; Depression; GERD; Hyperlipidemia; Hypothyroidism; ph - Immunization history:: Adult Immunizations up to date. - Social history:: Smoking status: Patient/guardian denies using tobacco. - Ebola Screening: : Patient negative for fever greater than or equal to 101.5 degrees Fahrenheit, and additional compatible Ebola Virus Disease symptoms Patient denies exposure to infectious person Patient denies travel to an Ebola-affected area in the 21 days before illness onset No symptoms or risks identified at this time. Screenin:40 Abuse screen: Denies threats or abuse. Denies injuries from another. Nutritional ca1 screening: No deficits noted. Tuberculosis screening: No symptoms or risk factors identified. Fall Risk Fall in past 12 months (25 points). IV access (20 points). Ambulatory Aid- Crutches/Cane/Walker (15 pts). Gait- Impaired (20 pts.). Assessment: 14:40 General: Appears in no apparent distress. uncomfortable, Behavior is appropriate for ca1 age, crying. Pain: Complains of pain in right hip Pain currently is 9 out of 10 on a pain scale. Is chronic. Neuro: Level of Consciousness is awake, alert, obeys commands, Oriented to person, place, time, situation, Appropriate for age. Cardiovascular: Heart tones S1 S2 present Capillary refill < 3 seconds Patient's skin is warm and dry. Respiratory: Airway is patent Respiratory effort is even, unlabored, Respiratory pattern is regular, symmetrical, Breath sounds are clear bilaterally. GI: Abdomen is flat, non-distended, Bowel sounds present X 4 quads. Abd is soft and non tender X 4 quads. : No signs and/or symptoms were reported regarding the genitourinary system. EENT: No signs and/or symptoms were reported regarding the EENT system. Derm: Skin is intact, is fragile, is thin, Skin is pink, warm \T\ dry. Musculoskeletal: Circulation, motion, and sensation intact. Capillary refill < 3 seconds, Range of motion: intact in all extremities. 15:50 Reassessment: Patient appears in no apparent distress at this time. Patient is alert, ca1 oriented x 3, equal unlabored respirations, skin warm/dry/pink. 16:16 Reassessment: Ultrasound at bedside. ca1 16:48 Reassessment: Patient appears in no apparent distress at this time. Patient and/or ca1 family updated on plan of care and expected duration. Pain level reassessed. Patient is alert, oriented x 3, equal unlabored respirations, skin warm/dry/pink. 17:46 Reassessment: Patient appears in no apparent distress at this time. Patient and/or ca1 family updated on plan of care and expected duration. Pain level reassessed. Patient is alert, oriented x 3, equal unlabored respirations, skin warm/dry/pink. 18:42 Reassessment: Patient appears in no apparent distress at this time. Patient is alert, ca1 oriented x 3, equal unlabored respirations, skin warm/dry/pink. 19:58 Reassessment: Patient appears in no apparent distress at this time. Patient and/or ca1 family updated on plan of care and expected duration. Pain level reassessed. Patient is alert, oriented x 3, equal unlabored respirations, skin warm/dry/pink. 20:15 Reassessment: Called for report. Nurse will call back. ca1 20:49 Reassessment: Patient appears in no apparent distress at this time. Patient is alert, ca1 oriented x 3, equal unlabored respirations, skin warm/dry/pink. Vital Signs: 14:35 BP 138 / 67; Pulse 85; Resp 18; Temp 98.0; Pulse Ox 95% on R/A; Weight 81.65 kg; Pain ph 10/10; 16:03 BP 115 / 56; Pulse 84; Resp 18; Temp 98.5(O); Pulse Ox 96% on R/A; mh5 18:30 BP 148 / 93; Pulse 87; Resp 20; Temp 98.1(O); Pulse Ox 95% on R/A; Pain 10/10; mh5 19:36 BP 125 / 59; Pulse 73; Resp 17 S; Pulse Ox 94% on R/A; ca1 20:45 BP 114 / 49; Pulse 76; Resp 17 S; Pulse Ox 93% on R/A; ca1 ED Course: 14:32 Patient arrived in ED. ph 14:33 Livia Wall, GUME is Primary Nurse. ca1 14:34 Triage completed. ph 14:36 Arm band placed on Patient placed in an exam room, on a stretcher. ph 15:08 Tapan Saini PA is PHCP. jmm 15:08 Tommy Reyes MD is Attending Physician. m 16:00 Missed attempt(s): 24 gauge in right antecubital area. Bleeding controlled, band aid ca1 applied, catheter tip intact. 16:04 Patient has correct armband on for positive identification. Placed in gown. Bed in low mh5 position. Call light in reach. Side rails up X 1. Adult w/ patient. Warm blanket given. Pulse ox on. NIBP on. 16:05 No provider procedures requiring assistance completed. Initial lab(s) drawn, by ED ca1 staff, sent to lab. Inserted saline lock: 24 gauge in left antecubital area, using aseptic technique. ,using aseptic technique. by GUME Duncan Blood collected. 16:42 US Extremity Venous Unilateral Ltd In Process Unspecified. EDMS 17:01 Inserted saline lock: 20 gauge in right antecubital area, using aseptic technique. ca1 ,using aseptic technique. by GUME Miranda. 17:24 CT Chest For PE Angio In Process Unspecified. EDMS 17:24 CT Abd/Pelvis - IV Contrast Only In Process Unspecified. EDMS 18:04 Bharti Pollock MD is Hospitalizing Provider. [facility] 18:28 Urine collected: straight cath specimen, clear, Amount Returned: 700mL. Straight cath mh5 inserted, using sterile technique, 16 Fr. Specimen obtained. 18:28 Urine Culture Sent. 5 20:15 Patient admitted, IV remains in place. ca1 20:21 Accessed peripheral vein via ultrasound, utilizing dynamic ultrasound technique using bb accessed w/ # 20 Bed[place] needle, ,sterile technique, per hospital protocol. Good blood return. Flushes easily. Administered Medications: 16:11 Drug: Zofran 4 mg Route: IVP; Site: left antecubital; ca1 16:52 Follow up: Response: No adverse reaction; Nausea is decreased ca1 16:13 Drug: fentaNYL (PF) 25 mcg {Note: RASS 0.} Route: IVP; Site: left antecubital; ca1 16:52 Follow up: Response: No adverse reaction; Pain is decreased; RASS: Alert and Calm (0) ca1 16:17 Drug: Valium 2 mg Route: IVP; Site: left antecubital; ca1 16:52 Follow up: Response: No adverse reaction; Pain is decreased; RASS: Alert and Calm (0) ca1 18:10 Drug: LevaQUIN 750 mg Volume: 150 ml; Route: IVPB; Infused Over: 90 mins; Site: right ca1 antecubital; 20:48 Follow up: Response: No adverse reaction; IV Status: Completed infusion ca1 19:02 Drug: fentaNYL (PF) 25 mcg Route: IVP; Site: right antecubital; ca1 19:37 Follow up: Response: No adverse reaction; Pain is decreased; RASS: Alert and Calm (0) ca1 20:48 Drug: vancoMYCIN 1 grams Route: IVPB; Infused Over: 2 hrs; Site: left antecubital; ca1 20:53 Follow up: IV Status: Infusion continued upon admission ca1 Outcome: 18:05 Decision to Hospitalize by Provider. or[place] 20:49 Admitted to Med/surg accompanied by tech, via stretcher, room 217, with chart, Report ca1 called to GUME Pittman 20:49 Condition: stable 20:49 Instructed on the need for admit. 21:25 Patient left the ED. ca1 Signatures: Dispatcher [employer] EDMS Tapan Saini PA PA jmm Ballard, Brenda, RN Joyce Kumar RN RN ph Martinez, [facility] Livia Wall RN RN ca1 Corrections: (The following items were deleted from the chart) 18:17 17:01 Inserted saline lock: 22 gauge in right antecubital area, using aseptic ca1 technique. ,using aseptic technique. by GUME Miranda ca1 18:19 17:01 Reassessment: Patient appears in no apparent distress at this time. Patient ca1 and/or family updated on plan of care and expected duration. Pain level reassessed. Patient is alert, oriented x 3, equal unlabored respirations, skin warm/dry/pink. ca1 18:19 18:18 Reassessment: Patient appears in no apparent distress at this time. Patient ca1 and/or family updated on plan of care and expected duration. Pain level reassessed. Patient is alert, oriented x 3, equal unlabored respirations, skin warm/dry/pink. ca1
[2019-03-22] MEDS ORDERED: Levofloxacin 750mg IV 750 MG/150 ML BAG IV ONE (18:12)
[2019-03-22] MEDS ORDERED: ONDANSETRON 4 MG/2 ML VIAL IV PRN (18:25)
[2019-03-22 18:45] LABS: Urine Blood TRACE (NEG); Urine Glucose NEGATIVE (NEG); Urine Protein NEGATIVE (NEG)
[2019-03-22] MEDS ORDERED: VANCOMYCIN/NS 1 gm 1 GM/250 ML BAG IVPB ONE (19:00)
[2019-03-22] MEDS ORDERED: VANCOMYCIN 1.25 GM in NA CHLORIDE 0.9% 250 ML IVPB SCH (19:00)
[2019-03-22 21:33] VITALS: BMI 22.2
[2019-03-22] MEDS: HYDROCODONE/APAP 10/325 TAB PO PRN (21:56)
[2019-03-22] MEDS ORDERED: HYDROCORTISONE SUC 100 MG INJ IV SCH (23:00)
[2019-03-23] MEDS: DIAZEPAM 10 MG/2 ML INJ SYRINGE IV SCH ×4 (00:22→17:32)
[2019-03-23] MEDS: HYDROCODONE/APAP 10/325 TAB PO PRN (04:00)
[2019-03-23 05:42] LABS: Absolute Lymphocytes (CBC) 1.1 K/uL (0.7-4.9); Basophils % 0.2 % (0-1.3); Hematocrit 35.8 % (36.0-45.0); Lymphocytes % 5.5 % (15.3-44.8); MPV 7.1 fL (7.6-11.3); RBC Red Blood Cell Count 3.68 M/uL (3.86-4.86)
[2019-03-23 05:56] LABS: Potassium 4.8 mmol/L (3.5-5.1)
[2019-03-23] MEDS ORDERED: ALBUTEROL INHALER 60 PUFF/8 GM IH PRN (07:57)
[2019-03-23 08:39] LABS: Blood Morphology Comment NOT SEEN (NOT SEEN); Platelet Estimate ADEQ; Urine White Blood Cell Casts OK
[2019-03-23] MEDS: GABAPENTIN 100 MG CAP PO SCH ×3 (09:19→20:31)
[2019-03-23] MEDS: HYDROCODONE/APAP 10/325 TAB PO SCH ×3 (09:19→20:30)
[2019-03-23] MEDS: ENOXAPARIN 40 MG/0.4 ML SQ SCH (09:19)
[2019-03-23] MEDS: LEVOTHYROXINE SOD 0.05 MG TABLET PO SCH (09:20)
[2019-03-23] MEDS: predniSONE 10 MG TAB PO SCH ×2 (09:20→20:31)
--- NOTE | 2019-03-23 12:21 | EKG ---
Test Date: 2019-03-22 Test Time: 16:42:39 Thermostat Maker: KRYS MEASUREMENT RESULTS: Intervals: Rate: 77 [place]: 126 QRSD: 70 QT: 372 QTc: 420 [place]: P: 76 KY: 126 QRS: 8 T: 56 INTERPRETIVE STATEMENTS: Normal sinus rhythm Normal ECG Compared to ECG 01/11/2019 21:57:05 No significant changes Electronically Signed On 03-23-19 12:20:45 [employer] by Neri Ward
[2019-03-23] MEDS: VANCOMYCIN/NS 1 gm 1 GM/250 ML BAG IV SCH (16:44)
[2019-03-23] MEDS: Levofloxacin 750mg IV 750 MG/150 ML BAG IV SCH (20:30)
--- NOTE | 2019-03-23 22:37 | HP ---
Date of Admission: 03/23/2019 Chief Complaint: Left ribcage pain, right hip pain, and left leg pain. History Of Present Illness: An 88-year-old female patient, who has lower back pain has seen pain management physician Dr. Wolfe after her last hospital stay, which was for pain management purpose. Patient was started on hydrocodone by Dr. Wolfe and it has actually helped her pain. She was prescribed to take 1 tablet of hydrocodone 3 times a day and the patient's son, when I talked to him on phone today reports that her pain medication relief lasts only for about 6 hours or so and then her pain starts before it is time for the next dose and he has called Dr. Wolfe's office yesterday to discuss this further pain medication adjustment. Meanwhile, the patient reports that yesterday she was sitting in the bed, leaning down to her leg. The left lower leg in the ankle area as she injured her leg in her house while she was walking , but this area now has a scab over it. There is no open wound, but the leg is extremely red, swollen, and painful and when she was leaning down to touch her ankle all of a sudden she started to have pain in her left lower anterior ribcage area and along with that, she had pain in her right buttock and the patient said the pain was so intense that she ended up calling ambulance to bring her to hospital. After she was evaluated, she was admitted to the hospital. She has some constipation problem, which is chronic and unchanged. Medications: List reviewed. Review of Systems: Dermatology: As mentioned above. Musculoskeletal: As mentioned above. GI: As mentioned above. All other systems reviewed and negative. Allergies: SULFA CAUSING HEADACHE, RITUXIMAB CAUSING LEG SWELLING, PROMETHAZINE CAUSING HALLUCINATION AND ARM JERKING, METHOTREXATE CAUSING DYSPNEA , MESALAMINE CAUSING SORE THROAT AND HIVES, ADALIMUMAB CAUSING FACE SWELLING, AND ABATACEPT CAUSING JOINT PAIN. Past Surgical History: Hysterectomy, appendectomy, cholecystectomy, cataract surgery, removal of benign rectal mass August 02, 2017, in [place]. Family History: Sister with hypertension and stroke. Parents of old age at 99 and 95 years. Social History: Negative for smoking, alcohol use. Past Medical History: Lymphedema of legs, hypertension, hypothyroidism, COPD, chronic steroid therapy, rheumatoid arthritis, chronic leg edema, hemorrhoid surgery, Clostridium difficile colitis, DVT of leg, and pulmonary embolism diagnosed in August 2017. Physical Examination: Vital Signs: When she came in yesterday, temperature 98, pulse 85, respiratory rate 18, blood pressure 138/67, oxygen saturation 95%, height 4 feet 11 inches, weight 110 pounds. General: Awake, alert, oriented, not in distress. HEENT: Head atraumatic, normocephalic. Conjunctivae nonerythematous. Sclerae white. Mouth, no thrush or edema noted. Ears/Nose, no mass, lesion, discharge noted. Neck: Supple. No JVD, lymph nodes, bruit, thyromegaly noted. Lungs: Bilateral good equal air entry. Clear to auscultation. No rhonchi. No rales. Heart: Normal heart sounds, no murmur or gallop. Abdomen: Soft, bowel sounds normal. No guarding, rigidity, tenderness, mass, hepatosplenomegaly, distention, or bruit noted. Extremities: She has trace edema of right leg, known pitting, which is chronic , unchanged. Left leg has grade 1 edema, nonpitting. Her left lower half of the leg is more edematous than upper area. Patient has area of pink, warm, skin extending from the lower posterior thigh all the way down to her left Achilles tendon area. On the left lower 1/3 medial aspect of the leg, which is area above her ankle has significant induration with intensely red, pink skin extremely tender to touch and in the center of this has about 1 cm area of scab and this is the area where she actually injured originally few to several days ago. Lymphatics: No lymph node enlargement in neck, supraclavicular, infraclavicular region. Neuro: No focal neurological deficit. Chest: Unremarkable. External Genitalia: Deferred. Rectal: Deferred. Laboratory Data: Yesterday, white count 23.7, hemoglobin 13.1, platelets 268. This morning, white count 20.6, hemoglobin 11.9, platelets 240. Yesterday, sodium 139, potassium 4.5, chloride 103, bicarb 33, BUN 26, creatinine 0.70, glucose 110. Liver function tests unremarkable procalcitonin 0.11. Troponin less than 0.02. This morning, sodium 139, potassium 4.8, chloride 104, bicarb 32, BUN 19, creatinine 0.65, glucose 101. Venous Doppler of left leg was negative for DVT. CAT scan of her abdomen and pelvis, no acute changes, evidence of constipation. CAT scan of the chest per PE protocol was negative for pulmonary embolus. Impression: 1. Acute cellulitis, left leg. 2. Lymphedema, legs. 3. Osteoarthritis, multiple sites. 4. Chronic obstructive pulmonary disease. 5. Hypertension. 6. Chronic constipation. Plan: Admit patient to hospital for further evaluation and management of this problem. Patient is appropriate for inpatient and is expected to spend 2 midnights in hospital. Patient has extensive cellulitis involving her left lower extremity and we will go ahead and give empiric antibiotic, which is Levaquin and vancomycin at this point. Her white count this morning is slightly better than yesterday. DVT prophylaxis was ordered using Lovenox as patient has prior history of pulmonary embolism. This was about 2 years ago. Home medications will be continued. Physical therapy was consulted to help ambulate the patient. Pain medications will be continued per order. Patient is getting frustrated, as she has been not feeling well lately with her ongoing pain in her back, recurrent hospital visit, emergency room visit etc. and I did explain it to her since she is living alone, it might be best for her to go into senior care, where she has help from nursing staff, but she is not willing to do that, she wants to stay at her house. She has seen pain management physician,Dr. Wolfe for her back problem and she actually has appointment to see neurosurgeon, Dr. Westbrook, which is on March 26, 2019 and hopefully will be able to discharge her to go home over the weekend, so she can keep this appointment to see Dr. Westbrook. I did call the patient's son and details were discussed with him as well. ARNOL/MODL Voice ID: [id number]
[2019-03-24] MEDS: DIAZEPAM 10 MG/2 ML INJ SYRINGE IV SCH ×5 (01:20→17:17)
[2019-03-24] MEDS: LEVOTHYROXINE SOD 0.05 MG TABLET PO SCH (06:00)
[2019-03-24] MEDS ORDERED: VANCOMYCIN 1GM/D5W 1 GM/200 ML BAG IV SCH (07:00)
[2019-03-24] MEDS: HYDROCODONE/APAP 10/325 TAB PO SCH ×3 (08:05→20:54)
[2019-03-24] MEDS: GABAPENTIN 100 MG CAP PO SCH ×3 (08:05→20:55)
[2019-03-24] MEDS: ENOXAPARIN 40 MG/0.4 ML SQ SCH (08:06)
[2019-03-24] MEDS: predniSONE 10 MG TAB PO SCH ×2 (08:06→20:55)
[2019-03-24] MEDS ORDERED: LIDOCAINE 1% MPF 30 ML VIAL SQ ONE ×2 (12:01→14:00)
[2019-03-24] MEDS: VANCOMYCIN/NS 1 gm 1 GM/250 ML BAG IV SCH (16:06)
--- NOTE | 2019-03-24 17:38 | PN ---
Date of Progress Note: 03/24/2019 Subjective: Patient was seen this morning for followup. She was lying in bed, not in distress. Her son was present with her at bedside. Objective: Vital Signs: Reviewed. HEENT: Unremarkable. Lungs: Clear to auscultation. Heart: Sounds normal. Abdomen: Soft. Bowel sounds normal. No guarding, rigidity, tenderness, distention. Extremities: Right leg trace edema. Left leg, grade 1 edema. Left medial lower leg, redness actual ly has more concentrated in the smaller area with area of induration and right in the center of it. Yesterday, she had 1 cm dark black colored skin. Today, it has increased in size to about 2.5 to 3 c m at least with what appears to have like a blister type of appearance with old blood underneath. Th ere is no open wound. Has significant tenderness in the surrounding skin area with induration. Area of cellulitis changes with pink and warm skin in the posterior leg and posterior thigh is better tod ay than yesterday. Impression: 1.Cellulitis, left lower extremity. 2.Lymphedema, legs. 3.Chronic obstructive pulmonary disease. 4.Hypertension. Plan: We will continue current medications. Continue current antibiotics. Patient may benefit from incision and drainage of this area on the left lower leg and I have discussed details with general ridge Granado and requested consultation from him. Details were discussed with the patient and her son. Depending on her condition and tomorrow's blood work results, we will decide if we can possibly discharge her tomorrow or not. ARNOL/MODL Voice ID: [id number] Report ID: [id number]
[2019-03-24] MEDS: Levofloxacin 750mg IV 750 MG/150 ML BAG IV SCH (18:15)
--- NOTE | 2019-03-24 19:20 | CON ---
Date of Consultation: 03/24/2019 Diagnoses: Left leg cellulitis, abscess, necrotic ulcer. History Of Present Illness: This is the case of an 88-year-old patient, admitted to the hospital wit h a diagnosis of cellulitis of the left lower extremity. There is an area of necrotic ulcer present, it looked supressing present consistent with necrotic ulcer, possible abscess. She is on antibiotic s already, although improving the rest of the leg. The area of concern is still unchanged . I was approached by Dr. Pollock for debridement of that area, possible drainage of an abscess. Past Medical History: COPD, hypertension, osteoarthritis. Social History: She does not smoke. She does not drink alcohol. Family History: Noncontributory. Medications: Reviewed. Allergies: PROMETHAZINE, METHOTREXATE. Physical Examination: General: The patient is awake and alert. HEENT: Pupils are equal and reactive. Anicteric. Neck: Supple. Chest: Clear. Abdomen: Soft and depressible. Extremities: Over the left lower extremity, patient has a lymphedema, looked like its chromic, but a ssociated with cellulitis. There is an area of about 4 x 4 cm in the anterior leg that shows necroti c skin present and some fluctuance. Dorsalis pedis pulses bilateral are diminished. No cyanosis. Laboratory Data: Blood work shows WBC count was 23 came down to 20 and hemoglobin of 11.9. INR is 0 .9. Creatinine is 0.65. Venous Doppler shows no evidence of left lower extremity deep venous thromb osis. Assessment: This is a case of an 88-year-old with cellulitis, necrotic ulcer, abscess in left leg. Due to multiple medical conditions, I discussed the case with Dr. Pollock. We are going to do incision and drainage and debridement of the necrotic ulcer at bedside with local anesthetic. Benefits, alter natives, and risks were explained to the patient, which include but are not limited to infection, ble eding, damage to adjacent structures , nonhealing wound, CO, and even . She also unde rstands this may not relieve the symptoms, she might need more than one surgical intervention. She u nderstood and signed the consent. MERY/MAGDA Voice ID: [id number] Report ID: [id number]
--- NOTE | 2019-03-24 22:59 | OP ---
Date of Procedure: 03/24/2019 Surgeon: Marco Granado MD Preoperative Diagnoses: Cellulitis, abscess and necrotic ulcer, left anterior leg. Postoperative Diagnoses: Cellulitis, abscess and necrotic ulcer, left anterior leg. Procedures: 1.Excisional debridement of left leg venous ulcer and also incision and drainage of a left axis abou t 4 x 4 cm. Anesthesia: Local. Indication For Procedure: This is a case of an 88-year-old patient with above diagnosis fully explai osiel the benefits, alternatives, and risks of debridement which include but are not limited to infecti on, bleeding, damage to adjacent structures, anesthesia complication, nonhealing wound, TN, and even . She also understands this may not relieve any symptoms. She might need more than one surgica l intervention. She understood, signed a consent. Description Of Procedure: The area was marked by me and the patient. At time-out was called. Left leg was prepped and draped in a sterile fashion. Lidocaine 1% plain injected for local anesthetic fo llowed by sharp incision of the skin. She has a blister present with necrotic skin and sharp instrum ents were used including incisions. Once we remove that necrotic ulcer from there, we noticed the ab scess cavity with a large amount of pus about a 4 x 4 cm cavity. The area was cultured. The area wa s irrigated. Pus was removed and the area was packed with wet-to-dry dressing after hemostasis obtai osiel. Patient tolerated the procedure well. Patient stayed in her room in stable condition. We are going to observe for the next 48 hours. If we see improvement, we are going to continue with dressing changes. If she does not improve or get worse, then we are going to move formal exploration under anesthesia in OR. MERY/MODL Voice ID: [id number] Report ID: [id number]
[2019-03-25] MEDS: DIAZEPAM 10 MG/2 ML INJ SYRINGE IV SCH ×6 (05:51→17:15)
[2019-03-25] MEDS: LEVOTHYROXINE SOD 0.05 MG TABLET PO SCH (05:51)
[2019-03-25 06:11] LABS: Absolute Lymphocytes (CBC) 1.1 K/uL (0.7-4.9); Basophils % 0.3 % (0-1.3); Hematocrit 34.4 % (36.0-45.0); Lymphocytes % 8.8 % (15.3-44.8); MPV 7.4 fL (7.6-11.3); RBC Red Blood Cell Count 3.56 M/uL (3.86-4.86)
[2019-03-25 06:20] LABS: Magnesium 2.2 mg/dL (1.8-2.4); Potassium 4.6 mmol/L (3.5-5.1)
[2019-03-25] MEDS: GABAPENTIN 100 MG CAP PO SCH ×3 (09:00→21:30)
[2019-03-25] MEDS: HYDROCODONE/APAP 10/325 TAB PO SCH ×3 (09:07→21:30)
[2019-03-25] MEDS: predniSONE 10 MG TAB PO SCH ×2 (09:07→21:31)
[2019-03-25] MEDS: ENOXAPARIN 40 MG/0.4 ML SQ SCH (09:08)
[2019-03-25] MEDS ORDERED: BISACODYL 10 MG RECTAL SUPP PR ONE (09:12)
--- NOTE | 2019-03-25 15:20 | PN ---
Date of Progress Note: 03/25/2019 Subjective: Patient was seen this morning for followup. She was lying in bed, not in distress. Gus n in her left leg is much better than yesterday after Dr. Granado did incision and drainage. She matute s chronic constipation and has not had a bowel movement in a last few days. Objective: Vital Signs: Reviewed. HEENT: Unremarkable. Lungs: Clear to auscultation. Heart: Sounds normal. Abdomen: Soft. Bowel sounds normal. No guarding, rigidity, tenderness, or distention. Extremities: Trace leg edema of the left leg. Dressing present. Laboratory Data: White count 12.4, hemoglobin 11.5, platelets 235. Sodium 140, potassium 4.6, chlor tonya 105, bicarb 32, BUN 14, creatinine 0.66, glucose 129. Wound culture growing Staph aureus and it is not MRSA. It is sensitive to Levaquin and vancomycin that the patient is currently on. Impression: 1.Abscess/cellulitis, left leg. 2.Anemia. 3.Chronic obstructive pulmonary disease. 4.Hypertension. 5.Constipation. Plan: We will go ahead and continue current antibiotics. Continue to follow with Dr. Granado upon discharge. The patient to continue to follow up with him as well and I will see her tomorrow morning for followup and we will probably discharge her tomorrow morning. Details were discussed with the p atient. For constipation, we will give her Dulcolax rectal suppository and if that does not help her, then we will give her Fleet enema today. ARNOL/MODL Voice ID: [id number] Report ID: [id number]
[2019-03-25] MEDS: VANCOMYCIN/NS 1 gm 1 GM/250 ML BAG IV SCH (17:16)
--- NOTE | 2019-03-25 19:50 | PN ---
Diagnosis: Left leg cellulitis/abscess, status post debridement and drainage of an abscess. Subjective: The patient is doing well and ambulating. Objective: EXTREMITIES: Surgical site intact. Laboratory Data: WBC count came down to 12.4. Culture is still pending. Plan: Follow up cultures. Continue antibiotics. When the patient gets discharged, we will pack wet to dry with iodoform over the area and follow up with the wound healing center in a week. MERY/MIRIAML Voice ID: [id number] Report ID: [id number]
[2019-03-25] MEDS: Levofloxacin 750mg IV 750 MG/150 ML BAG IV SCH (21:30)
[2019-03-26] MEDS: DIAZEPAM 10 MG/2 ML INJ SYRINGE IV SCH
[2019-03-26] MEDS: LEVOTHYROXINE SOD 0.05 MG TABLET PO SCH (06:12)
[2019-03-26] MEDS: HYDROCODONE/APAP 10/325 TAB PO SCH (08:14)
[2019-03-26] MEDS: predniSONE 10 MG TAB PO SCH (08:14)
[2019-03-26] MEDS: GABAPENTIN 100 MG CAP PO SCH (08:15)
[2019-03-26] MEDS: ENOXAPARIN 40 MG/0.4 ML SQ SCH (08:15)
[2019-03-26 08:27] VITALS: TEMP 97.1; O2SAT 95
[2019-03-26 10:07] VITALS: BP 160/80
--- NOTE | 2019-03-26 22:49 | DS ---
Date of Discharge: 03/26/2019 Disposition: Discharged to go home. Physical Examination: HEENT: Unremarkable. Lungs: Clear to auscultation. Heart: Heart sounds normal. Abdomen: Soft, bowel sounds normal. No guarding, rigidity, tenderness, or distention. Extremities: Trace leg edema, nonpitting in nature. Redness from left leg has resolved. Dressing present over the left lower leg. Laboratory Data: Initial white count 23.7, hemoglobin 13.1, platelets 268, and yesterday white count 12.4, hemoglobin 11.5. Last chemistry from yesterday, sodium 140, potassium 4.6, chloride 105 bicarb 32, BUN 14, creatinine 0.66, glucose 129. Wound culture from left leg grew Staphylococcus aureus and this is not MRSA. Discharge Medications And Instructions: 1. Continue all prior home medication and the patient was told that please keep in mind that hospital medication list may not be accurate and she should continue to take her medication the way she was taking prior to this hospital admission. 2. Take antibiotic Levaquin 500 mg daily for 10 days. 3. Follow up with neurosurgeon, Dr. Westbrook, today. 4. Follow up with Dr. Granado next week. 5. Daily dressing changes to be done as per Dr. Granado. 6. Follow up at my office next week. 7. Follow up with Pain Management doctor, Dr. Wolfe, as per his instruction. Discharge Diagnoses: 1. Abscess/cellulitis, left leg. 2. Lymphedema, legs. 3. Osteoarthritis, multiple sites. 4. Chronic obstructive pulmonary disease. 5. Hypertension. 6. Chronic constipation. 7. Anemia, unspecified. Hospital Course: This is an 88-year-old female patient, who was admitted to the hospital with right hip pain, left ribcage pain, and left leg pain. Please see dictated H and P for more information. The patient was evaluated in the ER , she was diagnosed as having cellulitis of left lower extremity, admitted to the hospital. IV Levaquin and IV vancomycin were started. Patient actually developed abscess over this left lower medial leg area during this hospitalization and this is in the center of where she had cellulitic changes. Dr. Granado was consulted over the weekend and he performed bedside debridement and obtained approximately 20 mL of purulent discharge from this leg and culture was sent. Her wound culture has grown Staphylococcus aureus. It is sensitive to vancomycin and Levaquin that she is currently on. Overall, her condition has significantly improved and today she was discharged to go home in stable condition with above-mentioned medications and instructions. ARNOL/MODL Voice ID: [id number] Report ID: [id number]
== END 2019-03-26 08:45 | disposition home health service (06) | DRG 603 ==
LOC: ER 14:28 → ERHOLD 18:24 → 2ND 21:02
PROVIDERS: ADMIT Internal Medicine; ATTEND Internal Medicine
PROC: 0HBKXZZ Excision of Right Lower Leg Skin, External Approach (ICD-10-PCS; principal; 2019-03-24)
DX: L02.416 Cutaneous abscess of left lower limb (principal); L97.929 Non-pressure chronic ulcer of unspecified part of left lower leg with unspecified severity; L03.116 Cellulitis of left lower limb; E03.9 Hypothyroidism, unspecified; I10 Essential (primary) hypertension; J44.9 Chronic obstructive pulmonary disease, unspecified; M06.9 Rheumatoid arthritis, unspecified; I89.0 Lymphedema, not elsewhere classified; M19.90 Unspecified osteoarthritis, unspecified site; K59.09 Other constipation; B95.61 Methicillin susceptible Staphylococcus aureus infection as the cause of diseases classified elsewhere; Z79.52 Long term (current) use of systemic steroids; Z86.711 Personal history of pulmonary embolism; Z86.718 Personal history of other venous thrombosis and embolism; Z88.2 Allergy status to sulfonamides
CPT/HCPCS: 36415; 51702; 71275; 74177; 80048; 80053; 80202; 81003; 83605; 83735; 84145; 84484; 85025; 85610; 85652; 87070; 87077; 87086; 87088; 87186; 87205; 88304; 88305; 93005; 93971; 97116; 97161; 97530; 99285; J1650; J1720; J2405; J3010; J3360; J3370; J7512; Q9967

== ENCOUNTER 2019-03-28 15:06 | Inpatient (IN) | payer OTHER ==
--- OUTSIDE RECORDS SUMMARY | 2019-03-28 15:10 | XMS REPORT ---
:1930 Author Organization [facility] Address [address] [place] [address] Dr. Marsh [address] [place] [id number] Care Team Providers Name Role Phone KIM MCKEON ZARI Unavailable Unavailable RICARDO WILSON Unavailable Unavailable Problems This patient has no known problems. Allergies, Adverse Reactions, Alerts This patient has no known allergies or adverse reactions. Medications This patient has no known medications. Results Test Description Test Time Test Comments Text Results Atomic Results Result Comments TISSUE EXAM 2017-09-20 16:22:00 Surgical Pathology Report Case: [id number] Authorizing Provider: Misha Calloway MD Collected: 09/16/2017 1538 Ordering Location: [address] Received: 09/19/2017 0820 Service Pathologist: Larry Cohn MD Specimen: Polyp, Colon - Rectosigmoid, POLYP TAKEN BY HOT SNARE RECTO-SIGMOID, POLYPECTOMY- TUBULAR ADENOMA- CAUTERIZED EDGE, NEGATIVE FOR ADENOMATOUS CHANGE Signing Pathologist Direct Phone Line: [phone] signed by Larry Cohn MD on 09/20/2017 at 4:22 [id number] bleedRectosigmoid colon polypThe specimen is received in [...] Value Reference Range Comments MAGNESIUM (BEAKER) (test pfbz=258) 1.9 mg/dL 1.6-2.6 BASIC METABOLIC [id number] 07:32:00 Test Item Value Reference Range Comments SODIUM (BEAKER) (test 138 meq/L 136-145 exkl=166) POTASSIUM (BEAKER) (test 4.2 meq/L 3.5-5.1 skkl=810) CHLORIDE (BEAKER) (test 106 meq/L 98-107 ypeg=104) CO2 (BEAKER) (test 25 meq/L 22-29 adlf=476) BLOOD UREA NITROGEN 6 mg/dL 7-21 (BEAKER) (test emab=017) CREATININE (BEAKER) (test 0.66 mg/dL 0.57-1.25 zycj=989) GLUCOSE RANDOM (BEAKER) 76 mg/dL 70-105 (test yfki=887) CALCIUM (BEAKER) (test 8.4 mg/dL 8.4-10.2 qjaw=007) EGFR (BEAKER) (test 85 mL/min/1.73 sq m ESTIMATED GFR IS NOT lqez=9292) ACCURATE CREATININE CLEARANCE IN PREDICTING GLOMERULAR FILTRATION RATE. ESTIMATED GFR IS NOT APPLICABLE FOR DIALYSIS PATIENTS. [id number] 06:42:00 Test Item Value Reference Range Comments PROTIME (BEAKER) (test ophi=030) 20.8 seconds 11.7-14.7 INR (BEAKER) (test gbzq=754) 1.8 <=5.9 PARTIAL THROMBOPLASTIN TIME (BEAKER) (test 36.1 seconds 22.5-36.0 pxap=154) RECOMMENDED COUMADIN/WARFARIN INR THERAPY RANGESSTANDARD DOSE: 2.0 - 3.0 Includes: PROPHYLAXIS forvenous thrombosis, systemic embolization; TREATMENT for venous thrombosis and/or pulmonary embolus.HIGH RISK: Target INR is 2.5-3.5 for patients with mechanical heart valves.CBC W/PLT COUNT & AUTO [id number] 06:41:00 Test Item Value Reference Range Comments WHITE BLOOD CELL COUNT (BEAKER) (test nqkr=644) 5.5 K/ L 3.5-10.5 RED BLOOD CELL COUNT (BEAKER) (test mtqx=196) 3.52 M/ L 3.93-5.22 HEMOGLOBIN (BEAKER) (test seoq=518) 10.4 GM/DL 11.2-15.7 HEMATOCRIT (BEAKER) (test nmbl=638) 33.1 % 34.1-44.9 MEAN CORPUSCULAR VOLUME (BEAKER) (test xydx=779) 94.0 fL 79.4-94.8 MEAN CORPUSCULAR HEMOGLOBIN (BEAKER) (test 29.5 pg 25.6-32.2 pszh=979) MEAN CORPUSCULAR HEMOGLOBIN CONC (BEAKER) (test 31.4 GM/DL 32.2-35.5 ejos=202) RED CELL DISTRIBUTION WIDTH (BEAKER) (test 19.8 % 11.7-14.4 tsfy=474) PLATELET COUNT (BEAKER) (test qjqi=422) 240 K/CU MM 150-450 MEAN PLATELET VOLUME (BEAKER) (test onpg=878) 8.5 fL 9.4-12.3 NUCLEATED RED BLOOD CELLS (BEAKER) (test 0 /100 WBC 0-0 actm=588) NEUTROPHILS RELATIVE PERCENT (BEAKER) (test 43 % yfte=736) LYMPHOCYTES RELATIVE PERCENT (BEAKER) (test 49 % nrbp=265) MONOCYTES RELATIVE PERCENT (BEAKER) (test 7 % zfet=983) EOSINOPHILS RELATIVE PERCENT (BEAKER) (test 1 % heta=730) BASOPHILS RELATIVE PERCENT (BEAKER) (test 0 % gpbu=798) NEUTROPHILS ABSOLUTE COUNT (BEAKER) (test 2.34 K/ L 1.56-6.13 hdtw=059) LYMPHOCYTES ABSOLUTE COUNT (BEAKER) (test 2.68 K/ L 1.18-3.74 prlt=695) MONOCYTES ABSOLUTE COUNT (BEAKER) (test 0.38 K/ L 0.24-0.36 wvbf=834) EOSINOPHILS ABSOLUTE COUNT (BEAKER) (test 0.05 K/ L 0.04-0.36 houo=474) BASOPHILS ABSOLUTE COUNT (BEAKER) (test 0.02 K/ L 0.01-0.08 ybcw=395) IMMATURE GRANULOCYTES-RELATIVE PERCENT (BEAKER) 0 % 0-1 (test ymlf=3378) [id number] 19:07:00 Test Item Value Reference Range Comments MAGNESIUM (BEAKER) (test glxd=191) 1.9 mg/dL 1.6-2.6 BASIC METABOLIC [id number] 19:07:00 Test Item Value Reference Range Comments SODIUM (BEAKER) (test 137 meq/L 136-145 onyd=369) POTASSIUM (BEAKER) (test 3.8 meq/L 3.5-5.1 tspa=340) CHLORIDE (BEAKER) (test 106 meq/L 98-107 xiyg=005) CO2 (BEAKER) (test 23 meq/L 22-29 evcq=202) BLOOD UREA NITROGEN 6 mg/dL 7-21 (BEAKER) (test pxnf=509) CREATININE (BEAKER) (test 0.64 mg/dL 0.57-1.25 xvzu=063) GLUCOSE RANDOM (BEAKER) 82 mg/dL 70-105 (test sbwz=396) CALCIUM (BEAKER) (test 8.5 mg/dL 8.4-10.2 ltku=075) EGFR (BEAKER) (test 88 mL/min/1.73 sq m ESTIMATED GFR IS NOT kwnd=0612) ACCURATE CREATININE CLEARANCE IN PREDICTING GLOMERULAR FILTRATION RATE. ESTIMATED GFR IS NOT APPLICABLE FOR DIALYSIS PATIENTS. CBC (HEMOGRAM ONLY)2017-09-16 18:38:00 Test Item Value Reference Range Comments WHITE BLOOD CELL COUNT (BEAKER) (test xyqb=271) 6.5 K/ L 3.5-10.5 RED BLOOD CELL COUNT (BEAKER) (test gqdq=656) 3.61 M/ L 3.93-5.22 HEMOGLOBIN (BEAKER) (test pihb=691) 10.9 GM/DL 11.2-15.7 HEMATOCRIT (BEAKER) (test ycck=060) 33.5 % 34.1-44.9 MEAN CORPUSCULAR VOLUME (BEAKER) (test cwbn=266) 92.8 fL 79.4-94.8 MEAN CORPUSCULAR HEMOGLOBIN (BEAKER) (test 30.2 pg 25.6-32.2 rrny=044) MEAN CORPUSCULAR HEMOGLOBIN CONC (BEAKER) (test 32.5 GM/DL 32.2-35.5 ywns=369) RED CELL DISTRIBUTION WIDTH (BEAKER) (test 19.8 % 11.7-14.4 zyxm=236) PLATELET COUNT (BEAKER) (test jomx=384) 239 K/CU MM 150-450 MEAN PLATELET VOLUME (BEAKER) (test owyp=412) 8.7 fL 9.4-12.3 NUCLEATED RED BLOOD CELLS (BEAKER) (test 0 /100 WBC 0-0 edwt=604) [id number] 06:56:00 Test Item Value Reference Range Comments PHOSPHORUS (BEAKER) (test vegh=062) 2.7 mg/dL 2.3-4.7 [id number] 06:56:00 Test Item Value Reference Range Comments MAGNESIUM (BEAKER) (test bpkk=275) 1.9 mg/dL 1.6-2.6 BASIC METABOLIC [id number] 06:56:00 Test Item Value Reference Range Comments SODIUM (BEAKER) (test 139 meq/L 136-145 gurj=893) POTASSIUM (BEAKER) (test 4.1 meq/L 3.5-5.1 gvwf=257) CHLORIDE (BEAKER) (test 107 meq/L 98-107 cnfe=705) CO2 (BEAKER) (test 26 meq/L 22-29 hqnp=048) BLOOD UREA NITROGEN 11 mg/dL 7-21 (BEAKER) (test xkfl=653) CREATININE (BEAKER) (test 0.73 mg/dL 0.57-1.25 kels=791) GLUCOSE RANDOM (BEAKER) 107 mg/dL 70-105 (test zbst=718) CALCIUM (BEAKER) (test 8.5 mg/dL 8.4-10.2 zkdp=910) EGFR (BEAKER) (test 76 mL/min/1.73 sq m ESTIMATED GFR IS NOT spzv=5294) ACCURATE CREATININE CLEARANCE IN PREDICTING GLOMERULAR FILTRATION RATE. ESTIMATED GFR IS NOT APPLICABLE FOR DIALYSIS PATIENTS. HEPATIC FUNCTION [id number] 06:56:00 Test Item Value Reference Range Comments TOTAL PROTEIN (BEAKER) (test vytb=509) 5.2 gm/dL 6.0-8.3 ALBUMIN (BEAKER) (test vqro=0655) 2.9 g/dL 3.5-5.0 BILIRUBIN TOTAL (BEAKER) (test stcl=244) 0.8 mg/dL 0.2-1.2 BILIRUBIN DIRECT (BEAKER) (test kwiz=685) 0.4 mg/dL 0.1-0.5 ALKALINE PHOSPHATASE (BEAKER) (test mlgh=069) 43 U/L 40-150 AST (SGOT) (BEAKER) (test dbcf=880) 13 U/L 5-34 ALT (SGPT) (BEAKER) (test wauk=276) 10 U/L 6-55 CALCIUM, [id number] 06:36:00 Test Item Value Reference Range Comments CALCIUM IONIZED (BEAKER) (test wgje=915) 1.05 mmol/L 1.12-1.27 PH, BLOOD (BEAKER) (test iofi=4377) 7.46 PROTHROMBIN [id number] 06:35:00 Test Item Value Reference Range Comments PROTIME (BEAKER) (test qrlf=158) 14.2 seconds 11.7-14.7 INR (BEAKER) (test zqeu=399) 1.1 <=5.9 RECOMMENDED COUMADIN/WARFARIN INR THERAPY RANGESSTANDARD DOSE: 2.0 - 3.0 Includes: PROPHYLAXIS forvenous thrombosis, systemic embolization; TREATMENT for venous thrombosis and/or pulmonary embolus.HIGH RISK: Target INR is 2.5-3.5 for patients with mechanical heart valves.CBC W/PLT COUNT & AUTO [id number] 06:25:00 Test Item Value Reference Range Comments WHITE BLOOD CELL COUNT (BEAKER) (test ueax=851) 9.4 K/ L 3.5-10.5 RED BLOOD CELL COUNT (BEAKER) (test qgth=548) 3.48 M/ L 3.93-5.22 HEMOGLOBIN (BEAKER) (test fadq=730) 10.0 GM/DL 11.2-15.7 HEMATOCRIT (BEAKER) (test fxhs=325) 31.1 % 34.1-44.9 MEAN CORPUSCULAR VOLUME (BEAKER) (test pkze=718) 89.4 fL 79.4-94.8 MEAN CORPUSCULAR HEMOGLOBIN (BEAKER) (test 28.7 pg 25.6-32.2 lsmf=816) MEAN CORPUSCULAR HEMOGLOBIN CONC (BEAKER) (test 32.2 GM/DL 32.2-35.5 ludk=746) RED CELL DISTRIBUTION WIDTH (BEAKER) (test 18.3 % 11.7-14.4 uqwx=129) PLATELET COUNT (BEAKER) (test dccc=395) 234 K/CU MM 150-450 MEAN PLATELET VOLUME (BEAKER) (test xumq=553) 8.9 fL 9.4-12.3 NUCLEATED RED BLOOD CELLS (BEAKER) (test 0 /100 WBC 0-0 rjqh=377) NEUTROPHILS RELATIVE PERCENT (BEAKER) (test 70 % ijiy=041) LYMPHOCYTES RELATIVE PERCENT (BEAKER) (test 24 % edta=011) MONOCYTES RELATIVE PERCENT (BEAKER) (test 5 % egwy=516) EOSINOPHILS RELATIVE PERCENT (BEAKER) (test 0 % bffh=684) BASOPHILS RELATIVE PERCENT (BEAKER) (test 0 % dmat=076) NEUTROPHILS ABSOLUTE COUNT (BEAKER) (test 6.54 K/ L 1.56-6.13 aoay=844) LYMPHOCYTES ABSOLUTE COUNT (BEAKER) (test 2.30 K/ L 1.18-3.74 lyer=370) MONOCYTES ABSOLUTE COUNT (BEAKER) (test 0.50 K/ L 0.24-0.36 jqks=111) EOSINOPHILS ABSOLUTE COUNT (BEAKER) (test 0.03 K/ L 0.04-0.36 fpkn=186) BASOPHILS ABSOLUTE COUNT (BEAKER) (test 0.02 K/ L 0.01-0.08 riuq=554) IMMATURE GRANULOCYTES-RELATIVE PERCENT (BEAKER) 0 % 0-1 (test jyff=2438) TISSUE [id number] 14:52:00Surgical Pathology Report Case: [id number] Authorizing Provider: Ricardo Wilson MD Collected: 08/02/2017 1715 Ordering Location: [facility] Endoscopy Received: 08/03/2017 0837 Services Pathologist: Larry Cohn MD Specimen: Rectal, MASS- TAKEN BY ESD, ON WAX, EVALUATE MARGINS RECTAL, 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)- NEGATIVE FOR HIGH GRADE DYSPLASIA OR CARCINOMA- PERIPHERAL MARGINS, NEGATIVE FOR ADENOMATOUS CHANGE Signing Pathologist Direct Phone Line: [phone] signed by Larry Cohn MD on 08/04/2017 at 2:52 [id number] polyp Rectal mass Received in formalin labeled [...] the diagnostic line.CBC W/PLT COUNT & AUTO [id number] 06:19:00 Test Item Value Reference Range Comments WHITE BLOOD CELL COUNT (BEAKER) (test mviu=064) 15.6 K/ L 3.5-10.5 RED BLOOD CELL COUNT (BEAKER) (test sbfl=470) 3.50 M/ L 3.93-5.22 HEMOGLOBIN (BEAKER) (test hqmb=471) 9.9 GM/DL 11.2-15.7 HEMATOCRIT (BEAKER) (test sbat=897) 31.4 % 34.1-44.9 MEAN CORPUSCULAR VOLUME (BEAKER) (test eysn=831) 89.7 fL 79.4-94.8 MEAN CORPUSCULAR HEMOGLOBIN (BEAKER) (test 28.3 pg 25.6-32.2 hzfx=938) MEAN CORPUSCULAR HEMOGLOBIN CONC (BEAKER) (test 31.5 GM/DL 32.2-35.5 pcfy=898) RED CELL DISTRIBUTION WIDTH (BEAKER) (test 18.0 % 11.7-14.4 nkeb=641) PLATELET COUNT (BEAKER) (test ebfp=067) 223 K/CU MM 150-450 MEAN PLATELET VOLUME (BEAKER) (test vxpl=491) 8.7 fL 9.4-12.3 NUCLEATED RED BLOOD CELLS (BEAKER) (test 0 /100 WBC 0-0 ebcz=467) NEUTROPHILS RELATIVE PERCENT (BEAKER) (test 81 % sswj=312) LYMPHOCYTES RELATIVE PERCENT (BEAKER) (test 15 % gqfk=290) MONOCYTES RELATIVE PERCENT (BEAKER) (test 4 % rgfg=021) EOSINOPHILS RELATIVE PERCENT (BEAKER) (test 0 % meaw=268) BASOPHILS RELATIVE PERCENT (BEAKER) (test 0 % cdot=004) NEUTROPHILS ABSOLUTE COUNT (BEAKER) (test 12.56 K/ L 1.56-6.13 byqo=448) LYMPHOCYTES ABSOLUTE COUNT (BEAKER) (test 2.36 K/ L 1.18-3.74 rdrl=513) MONOCYTES ABSOLUTE COUNT (BEAKER) (test 0.56 K/ L 0.24-0.36 kapg=806) EOSINOPHILS ABSOLUTE COUNT (BEAKER) (test 0.03 K/ L 0.04-0.36 jsmo=950) BASOPHILS ABSOLUTE COUNT (BEAKER) (test 0.02 K/ L 0.01-0.08 ycuz=838) IMMATURE GRANULOCYTES-RELATIVE PERCENT (BEAKER) 0 % 0-1 (test tlov=8613) HEPATIC FUNCTION [id number] 06:15:00 Test Item Value Reference Range Comments TOTAL PROTEIN (BEAKER) (test uzxf=189) 4.9 gm/dL 6.0-8.3 ALBUMIN (BEAKER) (test qnon=1539) 2.8 g/dL 3.5-5.0 BILIRUBIN TOTAL (BEAKER) (test uayu=334) 1.1 mg/dL 0.2-1.2 BILIRUBIN DIRECT (BEAKER) (test kkof=220) 0.5 mg/dL 0.1-0.5 ALKALINE PHOSPHATASE (BEAKER) (test kfth=059) 42 U/L 40-150 AST (SGOT) (BEAKER) (test uuaw=309) 15 U/L 5-34 ALT (SGPT) (BEAKER) (test vnpm=341) 12 U/L 6-55 BASIC METABOLIC [id number] 06:15:00 Test Item Value Reference Range Comments SODIUM (BEAKER) (test 139 meq/L 136-145 vski=914) POTASSIUM (BEAKER) (test 4.6 meq/L 3.5-5.1 zkvl=939) CHLORIDE (BEAKER) (test 108 meq/L 98-107 rnef=011) CO2 (BEAKER) (test 25 meq/L 22-29 pexg=241) BLOOD UREA NITROGEN 13 mg/dL 7-21 (BEAKER) (test ilsu=945) CREATININE (BEAKER) (test 0.73 mg/dL 0.57-1.25 krlg=479) GLUCOSE RANDOM (BEAKER) 115 mg/dL 70-105 (test xbnt=468) CALCIUM (BEAKER) (test 8.5 mg/dL 8.4-10.2 feug=516) EGFR (BEAKER) (test 76 mL/min/1.73 sq m ESTIMATED GFR IS NOT elxf=4001) ACCURATE CREATININE CLEARANCE IN PREDICTING GLOMERULAR FILTRATION RATE. ESTIMATED GFR IS NOT APPLICABLE FOR DIALYSIS PATIENTS. PROTHROMBIN [id number] 05:59:00 Test Item Value Reference Range Comments PROTIME (BEAKER) (test fics=143) 14.6 seconds 11.7-14.7 INR (BEAKER) (test llzg=801) 1.1 <=5.9 RECOMMENDED COUMADIN/WARFARIN INR THERAPY RANGESSTANDARD DOSE: 2.0 - 3.0 Includes: PROPHYLAXIS forvenous thrombosis, systemic embolization; TREATMENT for venous thrombosis and/or pulmonary embolus.HIGH RISK: Target INR is 2.5-3.5 for patients with mechanical heart valves.URINALYSIS W/ [id number] 14 :53:00 Test Item Value Reference Range Comments COLOR (BEAKER) (test bcss=688) Yellow CLARITY (BEAKER) (test ebkd=138) Clear SPECIFIC GRAVITY UA (BEAKER) (test zqyr=615) 1.010 1.001-1.035 PH UA (BEAKER) (test tobp=109) 5.5 5.0-8.0 PROTEIN UA (BEAKER) (test kkrf=939) Negative Negative GLUCOSE UA (BEAKER) (test ezcw=944) Negative Negative KETONES UA (BEAKER) (test tjqn=595) Trace Negative BILIRUBIN UA (BEAKER) (test yhcm=188) Negative Negative BLOOD UA (BEAKER) (test lpav=203) Negative Negative NITRITE UA (BEAKER) (test hqox=843) Negative Negative LEUKOCYTE ESTERASE UA (BEAKER) (test pkaw=067) Negative Negative UROBILINOGEN UA (BEAKER) (test yqer=385) 0.2 mg/dL 0.2-1.0 RBC UA (BEAKER) (test kqul=965) 1 /HPF WBC UA (BEAKER) (test rzub=874) 3 /HPF MUCUS (BEAKER) (test adgv=1124) Few SQUAMOUS EPITHELIAL (BEAKER) (test ylop=545) < /HPF HYALINE CASTS (BEAKER) (test katt=546) 2 /LPF SOURCE(BEAKER) (test dest=5964) HEPATIC FUNCTION [id number] 06:31:00 Test Item Value Reference Range Comments TOTAL PROTEIN (BEAKER) (test khuq=470) 5.2 gm/dL 6.0-8.3 ALBUMIN (BEAKER) (test ydfh=4440) 3.1 g/dL 3.5-5.0 BILIRUBIN TOTAL (BEAKER) (test ltwj=554) 1.1 mg/dL 0.2-1.2 BILIRUBIN DIRECT (BEAKER) (test vmyf=463) 0.5 mg/dL 0.1-0.5 ALKALINE PHOSPHATASE (BEAKER) (test clmx=798) 47 U/L 40-150 AST (SGOT) (BEAKER) (test lixv=208) 20 U/L 5-34 ALT (SGPT) (BEAKER) (test mizb=525) 15 U/L 6-55 BASIC METABOLIC [id number] 06:31:00 Test Item Value Reference Range Comments SODIUM (BEAKER) (test 139 meq/L 136-145 qnrs=002) POTASSIUM (BEAKER) (test 2.7 meq/L 3.5-5.1 nrxg=106) CHLORIDE (BEAKER) (test 106 meq/L 98-107 gqcp=222) CO2 (BEAKER) (test 24 meq/L 22-29 owns=862) BLOOD UREA NITROGEN 7 mg/dL 7-21 (BEAKER) (test gjnu=092) CREATININE (BEAKER) (test 0.61 mg/dL 0.57-1.25 wepd=353) GLUCOSE RANDOM (BEAKER) 88 mg/dL 70-105 (test eflt=950) CALCIUM (BEAKER) (test 8.4 mg/dL 8.4-10.2 hklm=114) EGFR (BEAKER) (test 93 mL/min/1.73 sq m ESTIMATED GFR IS NOT tzqr=4382) ACCURATE CREATININE CLEARANCE IN PREDICTING GLOMERULAR FILTRATION RATE. ESTIMATED GFR IS NOT APPLICABLE FOR DIALYSIS PATIENTS. BASIC METABOLIC [id number] 06:30:00 Test Item Value Reference Range Comments SODIUM (BEAKER) (test 136 meq/L 136-145 eidb=098) POTASSIUM (BEAKER) (test 3.0 meq/L 3.5-5.1 Specimen slightly thbr=003) hemolyzed CHLORIDE (BEAKER) (test 106 meq/L 98-107 pqfj=498) CO2 (BEAKER) (test 20 meq/L 22-29 qjrw=891) BLOOD UREA NITROGEN 7 mg/dL 7-21 (BEAKER) (test jepu=354) CREATININE (BEAKER) (test 0.61 mg/dL 0.57-1.25 Specimen slightly rtxm=583) hemolyzed GLUCOSE RANDOM (BEAKER) 81 mg/dL 70-105 (test uckq=162) CALCIUM (BEAKER) (test 8.2 mg/dL 8.4-10.2 mrci=735) EGFR (BEAKER) (test 93 mL/min/1.73 sq m ESTIMATED GFR IS NOT cdsu=0591) ACCURATE CREATININE CLEARANCE IN PREDICTING GLOMERULAR FILTRATION RATE. ESTIMATED GFR IS NOT APPLICABLE FOR DIALYSIS PATIENTS. CBC W/PLT COUNT & AUTO [id number] 06:25:00 Test Item Value Reference Range Comments WHITE BLOOD CELL COUNT (BEAKER) (test ftot=492) 14.6 K/ L 3.5-10.5 RED BLOOD CELL COUNT (BEAKER) (test rmct=699) 3.75 M/ L 3.93-5.22 HEMOGLOBIN (BEAKER) (test uigv=247) 10.5 GM/DL 11.2-15.7 HEMATOCRIT (BEAKER) (test auff=646) 33.1 % 34.1-44.9 MEAN CORPUSCULAR VOLUME (BEAKER) (test njhu=662) 88.3 fL 79.4-94.8 MEAN CORPUSCULAR HEMOGLOBIN (BEAKER) (test 28.0 pg 25.6-32.2 thwq=804) MEAN CORPUSCULAR HEMOGLOBIN CONC (BEAKER) (test 31.7 GM/DL 32.2-35.5 txes=808) RED CELL DISTRIBUTION WIDTH (BEAKER) (test 17.5 % 11.7-14.4 cwku=724) PLATELET COUNT (BEAKER) (test pwvz=158) 246 K/CU MM 150-450 MEAN PLATELET VOLUME (BEAKER) (test ohpv=819) 8.9 fL 9.4-12.3 NUCLEATED RED BLOOD CELLS (BEAKER) (test 0 /100 WBC 0-0 zfnq=425) NEUTROPHILS RELATIVE PERCENT (BEAKER) (test 88 % ribp=088) LYMPHOCYTES RELATIVE PERCENT (BEAKER) (test 5 % jvfr=189) MONOCYTES RELATIVE PERCENT (BEAKER) (test 6 % ujek=345) EOSINOPHILS RELATIVE PERCENT (BEAKER) (test 0 % iwkr=637) BASOPHILS RELATIVE PERCENT (BEAKER) (test 0 % fpzf=425) NEUTROPHILS ABSOLUTE COUNT (BEAKER) (test 12.85 K/ L 1.56-6.13 yake=911) LYMPHOCYTES ABSOLUTE COUNT (BEAKER) (test 0.71 K/ L 1.18-3.74 vpil=664) MONOCYTES ABSOLUTE COUNT (BEAKER) (test 0.94 K/ L 0.24-0.36 kabt=642) EOSINOPHILS ABSOLUTE COUNT (BEAKER) (test 0.00 K/ L 0.04-0.36 vxpe=255) BASOPHILS ABSOLUTE COUNT (BEAKER) (test 0.02 K/ L 0.01-0.08 vktp=913) IMMATURE GRANULOCYTES-RELATIVE PERCENT (BEAKER) 1 % 0-1 (test epab=1536) PROTHROMBIN [id number] 06:21:00 Test Item Value Reference Range Comments PROTIME (BEAKER) (test dzvm=268) 13.5 seconds 11.7-14.7 INR (BEAKER) (test icxi=466) 1.0 <=5.9 RECOMMENDED COUMADIN/WARFARIN INR THERAPY RANGESSTANDARD DOSE: 2.0 - 3.0 Includes: PROPHYLAXIS forvenous thrombosis, systemic embolization; TREATMENT for venous thrombosis and/or pulmonary embolus.HIGH RISK: Target INR is 2.5-3.5 for patients with mechanical heart valves.
[2019-03-28] MEDS ORDERED: FENTANYL CITR 100 MCG/2 ML ONE (16:24)
[2019-03-28 16:26] LABS: Absolute Lymphocytes (CBC) 1.5 K/uL (0.7-4.9); Basophils % 0.2 % (0-1.3); Hematocrit 33.9 % (36.0-45.0); MPV 7.1 fL (7.6-11.3); RBC Red Blood Cell Count 3.52 M/uL (3.86-4.86)
[2019-03-28 16:28] LABS: Protime INR 0.87
[2019-03-28 16:46] LABS: ALT/SGPT 41 U/L (12-78); AST/SGOT 22 U/L (15-37); Albumin 2.1 g/dL (3.4-5.0); Alkaline Phosphatase 51 U/L (45-117); BUN Blood Urea Nitrogen 22 mg/dL (7-18); Bicarbonate 31 mmol/L (21-32); Bilirubin Direct 0.1 mg/dL (0-0.2); Bilirubin Total 0.4 mg/dL (0.2-1.0); Glucose Level 88 mg/dL (74-106); Magnesium 2.3 mg/dL (1.8-2.4); NT PRO-BNP 217 pg/mL (<450); Potassium 4.6 mmol/L (3.5-5.1); Protein, Total 5.1 g/dL (6.4-8.2); Sodium Level 155 mmol/L (136-145); Troponin (Emerg Dept Use Only) < 0.02 ng/mL (0.0-0.045)
--- NOTE | 2019-03-28 16:59 | RAD REPORT ---
[facility] DES[facility] 4:48 pm CLINICAL HISTORY: left leg pain and swelling. COMPARISON: March 22, 2019 FINDINGS: Left common femoral, superficial femoral, and posterior tibial veins are compressible and demonstrate augmentation. Doppler demonstrates good flow. A small amount of acute thrombus has developed within the left popliteal vein IMPRESSION: Small amount of acute thrombus within the left popliteal vein
--- NOTE | 2019-03-28 17:45 | ER ---
Nurse's Notes [facility] Name: Elva Jenkins Age: 88 yrs Sex: Female : 1930 Arrival Date: 03/28/2019 Time: 15:09 Bed 8 Private MD: Diagnosis: Cellulitis of left lower limb;Acute embolism and thrombosis of unspecified deep veins of left lower extremity;Pneumonia due to other specified bacteria Presentation: 03/28 15:20 Presenting complaint: Patient states: LLE infection, swelling and redness have sv increased. Sent by nurse. Transition of care: patient was not received from another setting of care. Onset of symptoms is unknown. Care prior to arrival: None. 15:20 Method Of Arrival: Wheelchair sv 15:20 Acuity: TAVON 3 sv 19:10 Risk Assessment: Do you want to hurt yourself or someone else? Patient reports no aa1 desire to harm self or others. Initial Sepsis Screen: Does the patient meet any 2 criteria? No. Patient's initial sepsis screen is negative. Does the patient have a suspected source of infection? Yes: Skin breakdown/wound. Historical: - Allergies: 15:21 Asacol; sv 15:21 Humira; sv 15:21 Methotrexate; sv 15:21 Orencia; sv 15:21 Phenergan; sv 15:21 Sulfazine; sv - Home Meds: 17:11 albuterol sulfate 2.5 mg /3 mL (0.083 %) Inhl nebu 3 mL 3 times per day [Active]; sg albuterol sulfate 90 mcg/actuation Inhl HFAA 2 puffs every 6 hours [Active]; atorvastatin 40 mg Oral tab 1 tab once daily [Active]; benzonatate 200 mg Oral cap 1 cap 3 times per day [Active]; famotidine 20 mg Oral tab 1 tab once daily [Active]; gabapentin 100 mg Oral cap 1 caps 3 times per day [Active]; levothyroxine 50 mcg tab 1 tab once daily [Active]; melatonin 3 mg Oral tab 2 tab nightly [Active]; omeprazole 40 mg Oral cpDR 1 cap once daily [Active]; paroxetine HCl 40 mg Oral tab 1 tab once daily [Active]; prednisone 5 mg Oral tab 2 tabs once daily [Active]; Spiriva with HandiHaler 18 mcg inhalation CpDv 1 cap once daily [Active]; Symbicort 160-4.5 mcg/actuation inhalation HFAA 2 puffs 2 times per day [Active]; - PMHx: 15:21 Arthritis; COPD; Depression; GERD; Hyperlipidemia; Hypothyroidism; sv - Immunization history:: Pneumococcal vaccine is up to date, Flu vaccine is up to date. - Social history:: Smoking status: Patient/guardian denies using tobacco. - Ebola Screening: : No symptoms or risks identified at this time. Screenin:19 Abuse screen: Denies threats or abuse. Denies injuries from another. Nutritional sg screening: No deficits noted. Tuberculosis screening: No symptoms or risk factors identified. Never had TB. Fall Risk None identified. Assessment: 16:18 General: Appears in no apparent distress. unkempt, well developed, well nourished, sg Behavior is calm, cooperative, appropriate for age. Pain: Complains of pain in back and left leg Quality of pain is described as aching. Neuro: Level of Consciousness is awake, alert, obeys commands, Oriented to person, place, Speech is normal, Facial symmetry appears normal. Cardiovascular: Capillary refill is brisk in bilateral fingers Patient's skin is warm and dry. Chest pain is denied. Respiratory: Airway is patent Respiratory effort is even, unlabored, Respiratory pattern is regular, symmetrical. GI: No signs and/or symptoms were reported involving the gastrointestinal system. : No signs and/or symptoms were reported regarding the genitourinary system. EENT: No signs and/or symptoms were reported regarding the EENT system. Derm: Skin is pink, warm \T\ dry. Rash noted that is red, on left whitt. Musculoskeletal: Circulation, motion, and sensation intact. Range of motion: intact in all extremities, Swelling present in left calf and left whitt. 16:51 Reassessment: Patient appears in no apparent distress at this time. xray at bedside at this time. 17:20 Reassessment: Patient appears in no apparent distress at this time. Patient and/or sg family updated on plan of care and expected duration. Pain level reassessed. Patient is alert, oriented x 3, equal unlabored respirations, skin warm/dry/pink. 18:30 Reassessment: Patient appears in no apparent distress at this time. Patient and/or sg family updated on plan of care and expected duration. Pain level reassessed. Patient is alert, oriented x 3, equal unlabored respirations, skin warm/dry/pink. pt son remains at bedside at this time. 19:20 Reassessment: Patient appears in no apparent distress at this time. Patient and/or aa1 family updated on plan of care and expected duration. Pain level reassessed. Patient is alert, oriented x 3, equal unlabored respirations, skin warm/dry/pink. Pt resting quietly, awaiting bed assignment. Son at bedside. Dressing to LLE CDI Patient denies pain at this time. 20:12 Reassessment: Patient appears in no apparent distress at this time. No changes from aa1 previously documented assessment. Patient and/or family updated on plan of care and expected duration. Pain level reassessed. Patient is alert, oriented x 3, equal unlabored respirations, skin warm/dry/pink. Dr. Pollock at bedside for admission assessment. 21:32 Reassessment: Patient appears in no apparent distress at this time. Patient and/or aa1 family updated on plan of care and expected duration. Pain level reassessed. Patient is alert, oriented x 3, equal unlabored respirations, skin warm/dry/pink. Pt awaiting bed assignment. 22:22 Reassessment: Patient appears in no apparent distress at this time. Patient and/or aa1 family updated on plan of care and expected duration. Pain level reassessed. Patient is alert, oriented x 3, equal unlabored respirations, skin warm/dry/pink. Report given to GUME Trivedi on 4th floor. Vital Signs: 15:20 BP 130 / 57; Pulse 101; Resp 20; Temp 99.1; Pulse Ox 99% ; sv 15:50 BP 146 / 73; Pulse 88; Resp 20; Pulse Ox 96% on R/A; sg 16:36 BP 107 / 68; Pulse 70; Resp 16; Pulse Ox 96% on R/A; sg 17:04 BP 134 / 65; Pulse 72; Resp 17; Pulse Ox 100% on R/A; sg 19:20 BP 134 / 80; Pulse 81; Resp 20; Temp 98.7; Pulse Ox 97% on R/A; Pain 0/10; aa1 21:32 BP 145 / 61; Pulse 85; Resp 20; Temp 98.3; Pulse Ox 95% on R/A; Pain 0/10; aa1 22:22 BP 144 / 74; Pulse 85; Resp 20; Temp 98.1; Pulse Ox 97% on R/A; Pain 0/10; aa1 ED Course: 15:09 Patient arrived in ED. as 15:20 Triage completed. sv 15:21 Arm band placed on. sv 15:36 Tommy Grimes PA is PHCP. cp 15:36 Tommy Reyes MD is Attending Physician. cp 16:08 Radiology exam delayed due to IV insertion attempt and/or patient not having appropriate IV at this time. 16:10 Kevin Johnson, GUME is Primary Nurse. sg 16:15 Initial lab(s) drawn, by va, sent to lab. First set of blood cultures drawn by me. em1 Inserted saline lock: 22 gauge in right hand, using aseptic technique. Blood collected. 16:35 Radiology exam delayed due to ultrasound in room. 16:49 US Extremity Venous Unilateral Ltd In Process Unspecified. EDMS 16:50 Second set of blood cultures drawn by va. em1 16:56 XRAY Chest (1 view) In Process Unspecified. EDMS 17:43 Hasmukh Pollock MD is Hospitalizing Provider. cp 18:50 Wound culture swab sent to lab. Dressings: Kerlix X 1; lateral aspect of left calf sg non-adherent dressing x 1 lateral aspect of left calf 4X4s X 1; lateral aspect of left calf. 19:00 Patient has correct armband on for positive identification. Placed in gown. Bed in low aa1 position. Call light in reach. Side rails up X2. Pulse ox on. NIBP on. 22:23 No provider procedures requiring assistance completed. Patient admitted, IV remains in aa1 place. Administered Medications: 18:10 Drug: NS 0.9% 250 ml Route: IV; Rate: bolus; Site: right wrist; sg 19:00 Follow up: Response: No adverse reaction; IV Status: Completed infusion sg 18:10 Drug: vancoMYCIN 1 grams Route: IVPB; Infused Over: 2 hrs; Site: right wrist; sg 20:00 Follow up: IV Status: Completed infusion; IV Intake: 250ml aa1 18:10 Drug: Eliquis 10 mg Route: PO; sg 18:29 Follow up: Response: No adverse reaction sg 19:01 Not Given (Patient Refused): fentaNYL (PF) 25 mcg IVP once; RASS on ADMIN: Combtv4, sg Very Agttd3, Agttd2, Rstlss1, AlertClm0, Drwsy-1, Lt Sdtn-2, Mod Sdtn-3, Dp Sdtn-4, UnArsble-5 20:02 Drug: Cefepime 1 grams Route: IVPB; Rate: 200 ml/hr; Infused Over: 30 mins; Site: right aa1 wrist; 21:00 Follow up: IV Status: Completed infusion; IV Intake: 100ml aa1 20:56 CANCELLED (Physician Discretion): NS 0.9% 1000 ml IV at 75 ml/hr continuous cp 21:31 Drug: NS 0.9% 1000 ml Route: IV; Rate: 75 ml/hr; Site: right wrist; aa1 21:32 Follow up: IV Status: Infusion continued upon admission aa1 Intake: 20:00 IV: 250ml; Total: 250ml. aa1 21:00 IV: 100ml; Total: 350ml. aa1 Outcome: 17:45 Decision to Hospitalize by Provider. cp 22:26 Admitted to Tele accompanied by tech, via stretcher, room 404, with chart, Report aa1 called to GUME Trivedi 22:26 Condition: stable 22:26 Discharge instructions given to patient, family, Instructed on the need for admit, Demonstrated understanding of instructions. 22:39 Patient left the ED. aa1 Signatures: Dispatcher [employer] EDMS Marylu Chris RN RN sv Gay, Steven, RN RN Gaye Quigley RN RN 1 Ivana Granado Eric em1 Tommy Grimes PA PA cp Hallum, Brittan Corrections: (The following items were deleted from the chart) 15:21 15:20 Resp 20bpm; Temp 99.4F; sv sv 16:57 16:50 Second set of blood cultures drawn em1 em1 22: 19:10 Initial Sepsis Screen: Does the patient meet any 2 criteria? No. Patient's aa1 initial sepsis screen is negative. Does the patient have a suspected source of infection? No. Patient's initial sepsis screen is negative. aa1
--- NOTE | 2019-03-28 17:45 | EDPHYS ---
Physician Documentation [facility] Name: Elva Jenkins Age: 88 yrs Sex: Female : 1930 Arrival Date: 03/28/2019 Time: 15:09 Bed 8 Private MD: ED Physician Tommy Reyes HPI: 03/28 16:00 This 88 yrs old Female presents to ER via Wheelchair with complaints of Leg cp Infection. 16:00 The patient presents with pain, swelling, tenderness. cp 16:00 The complaints affect the left lower leg. Associated signs and symptoms: Pertinent cp negatives fever. 16:00 Son reports patient was recently discharged from [facility] after being admitted for cp cellulitis and abscess of left lower leg. Patient had abscess drained by DR Granado while hospitalized and is currently taking prescribed Levaquin. Patient reports swelling and redness has increased since discharged and was referred by home health to ED for evaluation. Historical: - Allergies: 15:21 Asacol; sv 15:21 Humira; sv 15:21 Methotrexate; sv 15:21 Orencia; sv 15:21 Phenergan; sv 15:21 Sulfazine; sv - Home Meds: 17:11 albuterol sulfate 2.5 mg /3 mL (0.083 %) Inhl nebu 3 mL 3 times per day [Active]; sg albuterol sulfate 90 mcg/actuation Inhl HFAA 2 puffs every 6 hours [Active]; atorvastatin 40 mg Oral tab 1 tab once daily [Active]; benzonatate 200 mg Oral cap 1 cap 3 times per day [Active]; famotidine 20 mg Oral tab 1 tab once daily [Active]; gabapentin 100 mg Oral cap 1 caps 3 times per day [Active]; levothyroxine 50 mcg tab 1 tab once daily [Active]; melatonin 3 mg Oral tab 2 tab nightly [Active]; omeprazole 40 mg Oral cpDR 1 cap once daily [Active]; paroxetine HCl 40 mg Oral tab 1 tab once daily [Active]; prednisone 5 mg Oral tab 2 tabs once daily [Active]; Spiriva with HandiHaler 18 mcg inhalation CpDv 1 cap once daily [Active]; Symbicort 160-4.5 mcg/actuation inhalation HFAA 2 puffs 2 times per day [Active]; - PMHx: 15:21 Arthritis; COPD; Depression; GERD; Hyperlipidemia; Hypothyroidism; sv - Immunization history:: Pneumococcal vaccine is up to date, Flu vaccine is up to date. - Social history:: Smoking status: Patient/guardian denies using tobacco. - Ebola Screening: : No symptoms or risks identified at this time. ROS: 16:05 Constitutional: Negative for body aches, chills, fever. cp 16:05 Eyes: Negative for injury, pain, redness, and discharge. cp 16:05 ENT: Negative for drainage from ear(s), ear pain, sore throat, difficulty swallowing, difficulty handling secretions. 16:05 Cardiovascular: Negative for chest pain. 16:05 Respiratory: Negative for cough, shortness of breath, wheezing. 16:05 Abdomen/GI: Negative for abdominal pain, vomiting, diarrhea, constipation. 16:05 MS/extremity: Positive for pain, swelling, tenderness, of the left leg. 16:05 Skin: Positive for cellulitis, of the left lower leg. 16:05 Neuro: Negative for altered mental status, headache. 16:05 All other systems are negative. Exam: 16:10 Constitutional: The patient appears in no acute distress, alert, awake, cp non-diaphoretic, non-toxic, well developed, well nourished. 16:10 Head/Face: Normocephalic, atraumatic. cp 16:10 Eyes: Periorbital structures: appear normal, Conjunctiva: normal, no exudate, no injection, Sclera: no appreciated abnormality, Lids and lashes: appear normal, bilaterally. 16:10 ENT: External ear(s): are unremarkable, Nose: is normal, Mouth: Lips: moist, Oral mucosa: pink and intact, moist, Posterior pharynx: Airway: no evidence of obstruction, patent. 16:10 Neck: ROM/movement: is normal, is supple, without pain, no range of motions limitations, no nuchal rigidity. 16:10 Chest/axilla: Inspection: normal. 16:10 Cardiovascular: Rate: normal, Rhythm: regular, JVD: is not appreciated. 16:10 Respiratory: the patient does not display signs of respiratory distress, Respirations: normal, no use of accessory muscles, no retractions, no splinting, no tachypnea, labored breathing, is not present, Breath sounds: are clear throughout, no decreased breath sounds, no stridor, no wheezing. 16:10 Abdomen/GI: Inspection: abdomen appears normal, Palpation: abdomen is soft and non-tender, in all quadrants, rebound tenderness, is not appreciated, involuntary guarding, is not appreciated. 16:10 Back: pain, that is moderate, of the lumbar area, ROM is painful, with all movement. 16:10 Musculoskeletal/extremity: Extremities: grossly normal except: noted in the left foot and left lower leg: pain, swelling, tenderness, Perfusion: the extremity is normally perfused throughout. 16:10 Skin: cellulitis, well demarcated, on the left lower leg, noted open wound medial aspect left lower leg with packing in place. 16:10 Neuro: Orientation: is normal, Mentation: is normal, Motor: moves all fours. 18:07 ECG was reviewed by the Attending Physician. cp Vital Signs: 15:20 BP 130 / 57; Pulse 101; Resp 20; Temp 99.1; Pulse Ox 99% ; sv 15:50 BP 146 / 73; Pulse 88; Resp 20; Pulse Ox 96% on R/A; sg 16:36 BP 107 / 68; Pulse 70; Resp 16; Pulse Ox 96% on R/A; sg 17:04 BP 134 / 65; Pulse 72; Resp 17; Pulse Ox 100% on R/A; sg 19:20 BP 134 / 80; Pulse 81; Resp 20; Temp 98.7; Pulse Ox 97% on R/A; Pain 0/10; aa1 21:32 BP 145 / 61; Pulse 85; Resp 20; Temp 98.3; Pulse Ox 95% on R/A; Pain 0/10; aa1 22:22 BP 144 / 74; Pulse 85; Resp 20; Temp 98.1; Pulse Ox 97% on R/A; Pain 0/10; aa1 MDM: 15:37 Patient medically screened. [facility] 17:36 Data reviewed: vital signs, nurses notes, lab test result(s), radiologic studies, plain cp films, ultrasound, I have discussed the patient's presentation/case with the attending Emergency Department Physician; and as a result, I will admit patient. Physician consultation: Hasmukh Pollock MD was called at 17:37, was contacted at 17:37, regarding admission, to the telemetry unit. patient's condition, would like consultation with Dr. Granado for wound left lower leg. 03/28 15:55 Order name: Basic Metabolic Panel; Complete Time: 16:51 cp 03/28 18:06 Interpretation: Normal except: NA 155; CL 115; BUN 22; CA 8.0. cp 03/28 15:55 Order name: CBC with Diff; Complete Time: 16:51 cp 03/28 16:52 Interpretation: Reviewed. 03/28 15:55 Order name: LFT's; Complete Time: 16:51 cp 03/28 16:52 Interpretation: Normal except: TP 5.1; ALB 2.1; A/G 0.7. cp 03/28 15:55 Order name: Magnesium; Complete Time: 16:51 cp 03/28 15:55 Order name: NT PRO-BNP; Complete Time: 16:51 cp 03/28 15:55 Order name: PT-INR; Complete Time: 16:51 cp 03/28 15:55 Order name: Troponin (emerg Dept Use Only); Complete Time: 16:51 cp 03/28 16:52 Interpretation: Within normal limits. 03/28 15:55 Order name: Blood Culture Adult (2) cp 03/28 15:55 Order name: Procalcitonin; Complete Time: 17:35 cp 03/28 15:55 Order name: Lactate; Complete Time: 16:51 cp 03/28 16:52 Interpretation: Within normal limits. 03/28 15:55 Order name: Urine Microscopic Only; Complete Time: 20:50 cp 03/28 20:54 Interpretation: Normal except: UWBC 5-10; SQEPI 5-10. 03/28 17:39 Order name: Wound Culture cp 03/28 19:32 Order name: Urine Dipstick--Ancillary (enter results); Complete Time: 20:50 cm6 03/28 19:51 Order name: Urine Culture EDMS 03/28 15:55 Order name: XRAY Chest (1 view); Complete Time: 18:05 cp 03/28 18:06 Interpretation: Report review. 03/28 15:55 Order name: EKG; Complete Time: 15:56 cp 03/28 15:55 Order name: Cardiac monitoring; Complete Time: 16:19 cp 03/28 15:55 Order name: EKG - Nurse/Tech; Complete Time: 19:08 cp 03/28 15:55 Order name: IV Saline Lock; Complete Time: 16:19 cp 03/28 15:55 Order name: Labs collected and sent; Complete Time: 16:19 cp 03/28 15:55 Order name: O2 Per Protocol; Complete Time: 16:19 cp 03/28 15:55 Order name: US Extremity Venous Unilateral Ltd; Complete Time: 17:09 cp 03/28 17:11 Interpretation: Report reviewed. cp 03/28 17:38 Order name: Diet Regular; Complete Time: 17:38 cp 03/28 15:55 Order name: O2 Sat Monitoring; Complete Time: 16:20 cp 03/28 15:55 Order name: Urine Dipstick-Ancillary (obtain specimen); Complete Time: 20:09 cp 03/28 16:51 Order name: Wound dressing; Complete Time: 19:01 cp EC:07 Rate is 74 beats/min. Rhythm is regular. OH interval is normal. QRS interval is normal. cp QT interval is normal. Interpreted by me. Reviewed by me. Administered Medications: 18:10 Drug: NS 0.9% 250 ml Route: IV; Rate: bolus; Site: right wrist; sg 19:00 Follow up: Response: No adverse reaction; IV Status: Completed infusion sg 18:10 Drug: vancoMYCIN 1 grams Route: IVPB; Infused Over: 2 hrs; Site: right wrist; sg 20:00 Follow up: IV Status: Completed infusion; IV Intake: 250ml aa1 18:10 Drug: Eliquis 10 mg Route: PO; sg 18:29 Follow up: Response: No adverse reaction sg 19:01 Not Given (Patient Refused): fentaNYL (PF) 25 mcg IVP once; RASS on ADMIN: Combtv4, sg Very Agttd3, Agttd2, Rstlss1, AlertClm0, Drwsy-1, Lt Sdtn-2, Mod Sdtn-3, Dp Sdtn-4, UnArsble-5 20:02 Drug: Cefepime 1 grams Route: IVPB; Rate: 200 ml/hr; Infused Over: 30 mins; Site: right aa1 wrist; 21:00 Follow up: IV Status: Completed infusion; IV Intake: 100ml aa1 20:56 CANCELLED (Physician Discretion): NS 0.9% 1000 ml IV at 75 ml/hr continuous cp 21:31 Drug: NS 0.9% 1000 ml Route: IV; Rate: 75 ml/hr; Site: right wrist; aa1 21:32 Follow up: IV Status: Infusion continued upon admission aa1 Disposition: 03/29 06:10 Co-signature as Attending Physician, Tommy Reyes MD I agree with the assessment and shameka plan of care. Disposition: 03/28/19 17:45 Hospitalization ordered by Hasmukh Pollock for Inpatient Admission. Preliminary diagnosis are Cellulitis of left lower limb, Acute embolism and thrombosis of unspecified deep veins of left lower extremity, Pneumonia due to other specified bacteria. - Bed requested for Telemetry/MedSurg (Inpatient). - Status is Inpatient Admission. aa1 - Condition is Fair. - Problem is new. - Symptoms have improved. UTI on Admission? No Signatures: Dispatcher [employer] EDMS Marylu Chris RN RN Kevin Jhonson RN RN sg Gaye Quigley RN RN aa1 Tommy Reyes MD MD cha Ballard, Brenda, RN RN bb Tommy Grimes PA PA cp Corrections: (The following items were deleted from the chart) 03/28 18:06 16:52 Normal except: NA 155; CL 115; BUN 22. cp cp 18:19 17:45 Hospitalization Ordered by Hasmukh Pollock MD for Inpatient Admission. Preliminary cp diagnosis is Cellulitis of left lower limb; Acute embolism and thrombosis of unspecified deep veins of left lower extremity. Bed requested for Telemetry/MedSurg (Inpatient). Status is Inpatient Admission. Condition is Fair. Problem is new. Symptoms have improved. UTI on Admission? No. cp 20:56 20:52 NS 0.9% 1000 ml IV at 75 ml/hr continuous ordered. cp cp 22:03 18:19 03/28/2019 17:45 Hospitalization Ordered by Hasmukh Pollock MD for Inpatient bb Admission. Preliminary diagnosis is Cellulitis of left lower limb; Acute embolism and thrombosis of unspecified deep veins of left lower extremity; Pneumonia due to other specified bacteria. Bed requested for Telemetry/MedSurg (Inpatient). Status is Inpatient Admission. Condition is Fair. Problem is new. Symptoms have improved. UTI on Admission? No. cp 22:39 22:03 03/28/2019 17:45 Hospitalization Ordered by Hasmukh Pollock MD for Inpatient aa1 Admission. Preliminary diagnosis is Cellulitis of left lower limb; Acute embolism and thrombosis of unspecified deep veins of left lower extremity; Pneumonia due to other specified bacteria. Bed requested for Telemetry/MedSurg (Inpatient). Status is Inpatient Admission. Condition is Fair. Problem is new. Symptoms have improved. UTI on Admission? No. bb
[2019-03-28] MEDS ORDERED: NA CHLORIDE 0.9% 500 ML ONE (17:47)
--- NOTE | 2019-03-28 17:57 | RAD REPORT ---
EXAM DESCRIPTION: Asaf Single View03/28/2019 4:55 pm CLINICAL HISTORY: Fever COMPARISON: December 2018 FINDINGS: Mild prominence of the interstitial pattern within the right lung may indicate a mild atyp ical pneumonia or pneumonitis Left lung appears clear. The heart is normal size
[2019-03-28] MEDS ORDERED: APIXABAN 5 MG TABLET PO ONE (18:00)
[2019-03-28] MEDS ORDERED: VANCOMYCIN/NS 1 gm 1 GM/250 ML BAG IVPB SCH (18:00)
[2019-03-28] MEDS ORDERED: VANCOMYCIN/NS 1 gm 1 GM/250 ML BAG IVPB ONE (18:00)
[2019-03-28 19:50] LABS: Urine Bacteria <20 /HPF (<20); Urine Culture Reflex Order REFLEXED; Urine Mucus 1+ /HPF (NONE SEEN); Urine RBC <5 /HPF (NONE SEEN)
[2019-03-28 19:51] LABS: Urine Blood NEGATIVE (NEG); Urine Glucose NEGATIVE (NEG); Urine Protein NEGATIVE (NEG)
[2019-03-28] MEDS ORDERED: D5W 1,000 ML IV SCH (21:00)
[2019-03-28] MEDS ORDERED: Pharmacy Consult 1 EA XX PRN (21:53)
[2019-03-28] MEDS: Levofloxacin500mg IV 500 MG/100 ML BAG IV SCH (21:53)
[2019-03-28] MEDS: APIXABAN 5 MG TABLET PO SCH (21:53)
[2019-03-28] MEDS: HYDROCODONE/APAP 10/325 TAB PO SCH (21:53)
[2019-03-28] MEDS ORDERED: ACETAMINOPHEN 500 MG TAB PO PRN (21:53)
[2019-03-28 23:09] VITALS: BMI 24.0
--- NOTE | 2019-03-29 01:30 | HP ---
Date of Admission: 03/28/2019 Chief Complaint: Left leg pain. History Of Present Illness: This is an 88-year-old female patient who was recently in the hospital with left leg cellulitis and abscess. She has debridement done during the last hospital stay and she was discharged to go home this week on Tuesday morning with oral antibiotics Levaquin. She was getting IV vancomycin along with Levaquin during her last hospital stay. Her white count was elevated at 25,000 when she first came in during last time and it came down to 12,000 on the day of discharge with significant improvement in her left leg. After she went home, she saw neurosurgeon, Dr. Westbrook, for her ongoing back pain that she has been having for last couple of months and Dr. Westbrook after examining her suggested that he will perform kyphoplasty procedure next week on Tuesday and the patient was taking [place] 10/325 mg every 8 hours per her pain management physician and her pain was not well control, so Dr. Westbrook added 5 mg prescription for p.r.n. use. Today, patient's son came to my office and talked to me that the patient is not doing well, her leg is getting worse and he brought some pictures on his cellphone and after looking at those, I was concerned about worsening of her leg infection and he was advised to bring patient to the emergency room. After she was evaluated, she was admitted to the hospital. I saw her in the emergency room, she is having significant amount of pain in her lower back. Her evaluation in the emergency room included routine blood work and venous Doppler of left leg, which now shows evidence of deep vein thrombosis in left leg. Patient had negative venous Doppler during her prior admission and she did receive Lovenox injection for DVT prophylaxis during her prior admission. Medications: List reviewed. Review of Systems: Musculoskeletal: As mentioned above. Dermatology: As mentioned above. All other systems reviewed and negative. Allergies: SULFA CAUSING HEADACHE, RITUXIMAB CAUSING LEG SWELLING, PROMETHAZINE CAUSING HALLUCINATION AND ARM JERKING, METHOTREXATE CAUSING DYSPNEA , MESALAMINE CAUSING SORE THROAT AND HIVES, ADALIMUMAB CAUSING FACE SWELLING, AND ABATACEPT CAUSING JOINT PAIN. Past Surgical History: Hysterectomy, appendectomy, cholecystectomy, cataract surgery, removal of benign rectal mass August 02, 2017, in [place]. Family History: Sister with hypertension and stroke. Parents of old age at 99 and 95 years. Social History: Negative for smoking, alcohol use. Past Medical History: Lymphedema of legs, hypertension, hypothyroidism, COPD, chronic steroid therapy, rheumatoid arthritis, chronic leg edema, hemorrhoid surgery, Clostridium difficile colitis, DVT of leg, and pulmonary embolism diagnosed in August 2017. Physical Examination: Vital Signs: Temperature 99.1, pulse 101, respiratory rate 20, blood pressure 130/57, oxygen saturation 99%. General: Awake, alert, oriented, not in distress. HEENT: Head atraumatic, normocephalic. Conjunctivae nonerythematous. Sclerae white. Mouth, no thrush or edema noted. Ears/Nose, no mass, lesion, discharge noted. Neck: Supple. No JVD, lymph nodes, bruit, thyromegaly noted. Lungs: Bilateral good equal air entry. Clear to auscultation. No rhonchi. No rales. Heart: Normal heart sounds, no murmur or gallop. Abdomen: Soft, bowel sounds normal. No guarding, rigidity, tenderness, mass, hepatosplenomegaly, distention, or bruit noted. Extremities: Leg examination shows grade 1 pedal edema on the left leg. Right leg trace edema. Left lower leg has open wound, which is the result of abscess and debridement done during last hospital stay. Has some yellowish discharge from the wound present and surrounding skin over left lower extremity has an area of induration pink, warm, tender skin and this is worse compared to how it was on Tuesday when we released her from the hospital. The patient also has significant edema of the left foot. She has some induration on the left popliteal fossa. Skin: No rash, ulcer, cellulitis. Lymphatics: No lymph node enlargement in neck, supraclavicular, infraclavicular region. Neuro: No focal neurological deficit. Chest: Unremarkable. External Genitalia: Deferred. Rectal: Deferred. Laboratory Data: Sodium 155, potassium 4.6, chloride 115, bicarb 31, BUN 22, creatinine 0.62, glucose 88. Liver function tests unremarkable. Troponin less than 0.02. Procalcitonin 0.05. Urinalysis; trace leukocyte esterase, otherwise negative. Venous Doppler shows small amount of acute DVT in left popliteal vein. Chest x-ray, no acute changes. White count 8.2, hemoglobin 11.7. Assessment: 1. Volume depletion. 2. Cellulitis/abscess, left leg. 3. Deep venous thrombosis, left leg. 4. Compression fracture of lumbar spine. 5. Osteoarthritis, multiple sites. 6. Hypertension. 7. Lymphedema, legs. 8. Hypothyroidism. 9. Chronic obstructive pulmonary disease. 10. Chronic steroid therapy. Plan: Admit patient to hospital for further evaluation and management of this problem. Patient is appropriate for inpatient and is expected to spend 2 midnights in hospital. We will go ahead and continue her home medications per order. Patient will be started on Eliquis 10 mg 2 times a day and was started on IV vancomycin and IV Levaquin. Pain medications will be continued per order. She has some constipation, which is chronic, but worse lately with the use of pain medication and we will try to address that with the help of stool softener and laxatives. I did talk to her about advance directives in the emergency room in presence of her son and DNR order was written in the chart as per decision made by the patient. Patient will need IV antibiotic therapy using vancomycin as she has failed oral antibiotic therapy and we will order PICC line and Social Service to help make arrangements for her to go to shelter facility for IV antibiotic therapy as she lives at [facility] and chances are likely she will not be able to get IV antibiotics at [facility] and will have to go to shelter facility for short-term stay. After she completes her IV antibiotic therapy, then we will need to go ahead and get IVC filter placed, which will be temporary IVC filter for which we will have to make that arrangements to be placed in [place] and after that is in place, then she can have surgery as planned by Dr. Westbrook. Reasoning for IVC filter to prevent life-threatening pulmonary embolism complications and surgery time explained to her. Overall, long-term prognosis is guarded. I will see her tomorrow for followup. For volume depletion, we will give her IV fluid D5W per order. ARNOL/MODL Voice ID: [id number] QUIN
[2019-03-29] MEDS: HYDROCODONE/APAP 10/325 TAB PO SCH ×4 (03:59→20:25)
[2019-03-29 04:47] LABS: Absolute Lymphocytes (CBC) 2.1 K/uL (0.7-4.9); Basophils % 0.7 % (0-1.3); Hematocrit 35.2 % (36.0-45.0); Lymphocytes % 24.2 % (15.3-44.8); MPV 7.5 fL (7.6-11.3); RBC Red Blood Cell Count 3.65 M/uL (3.86-4.86)
[2019-03-29 04:53] LABS: Potassium 4.2 mmol/L (3.5-5.1)
[2019-03-29] MEDS ORDERED: ALBUTEROL INHALER 60 PUFF/8 GM IH PRN (07:39)
[2019-03-29] MEDS: LEVOTHYROXINE SOD 0.05 MG TABLET PO SCH (08:00)
[2019-03-29] MEDS: D5W 1,000 ML IV SCH (08:00)
--- NOTE | 2019-03-29 11:00 | EKG ---
Test Date: 2019-03-28 Test Time: 17:50:51 Cigarette Filter Inspector: RAMESH MEASUREMENT RESULTS: Intervals: Rate: 74 TN: 130 QRSD: 66 QT: 366 QTc: 406 [place]: P: 69 TN: 130 QRS: 11 T: 65 INTERPRETIVE STATEMENTS: Normal sinus rhythm with sinus arrhythmia Low voltage QRS Borderline ECG Compared to ECG 03/22/2019 16:42:39 Low QRS voltage now present Electronically Signed On 03-29-19 10:58:23 [employer]ORTS TEAM MANAGER by Kel Ro
[2019-03-29] MEDS: ATORVASTATIN 40 MG TAB PO SCH (14:00)
[2019-03-29] MEDS: APIXABAN 5 MG TABLET PO SCH ×2 (14:00→20:24)
[2019-03-29] MEDS: POLYETHYL GLY 3350 17 GM/DOSE PO SCH (14:00)
[2019-03-29] MEDS: GABAPENTIN 300 MG CAP PO SCH ×3 (14:00→20:24)
[2019-03-29] MEDS: predniSONE 5 MG TAB PO SCH ×2 (14:01→20:24)
[2019-03-29] MEDS: PARoxetine HCl 10 MG TAB PO SCH (14:01)
[2019-03-29] MEDS: DOCUSATE NA/SENNA CONC 1 TAB PO SCH ×2 (14:01→20:24)
[2019-03-29] MEDS: VANCOMYCIN/NS 1 gm 1 GM/250 ML BAG IVPB SCH (17:59)
[2019-03-29] MEDS: Levofloxacin500mg IV 500 MG/100 ML BAG IV SCH (20:25)
--- NOTE | 2019-03-30 01:22 | PN ---
Date of Progress Note: 03/29/2019 Subjective: Patient was seen this morning for followup. No new complaints reported. Back pain and leg pain remain unchanged. Objective: Vital Signs: Reviewed. HEENT: Unremarkable. Lungs: Clear to auscultation. Heart: Sounds normal. Abdomen: Soft. Bowel sounds normal. No guarding, rigidity, tenderness, or distention. Extremities: Leg edema present, but better today than yesterday. Left medial lower extremity rednes s, induration, and tenderness are better today than yesterday. Laboratory Data: White count 8.6, hemoglobin 11.7, platelets 254. Sodium 142, potassium 4.2, chlori de 105, bicarb 35, BUN 18, creatinine 0.70, glucose 126. Impression: 1.Cellulitis/abscess, left leg. 2.Deep venous thrombosis, left leg. 3.Compression fracture of spine. 4.Chronic obstructive pulmonary disease. 5.Chronic anticoagulation therapy. Plan: Continue current antibiotics. We will get PICC line placement. Social service to help make a rrangements for retirement facility for IV antibiotic therapy if patient is not able to get such IV antibiotic therapy at [facility]. I will see her tomorrow for followup. Continue pain medicat ions per order. Details were discussed with Dr. Granado and he evaluated patient, and from his poin t of view, patient will be ready for discharge as early as tomorrow. So, once arrangements get completed, then we will be able to discharge her. ARNOL/MODL Voice ID: [id number] Report ID: [id number]
[2019-03-30] MEDS: HYDROCODONE/APAP 10/325 TAB PO SCH ×4 (04:01→20:24)
[2019-03-30] MEDS: LEVOTHYROXINE SOD 0.05 MG TABLET PO SCH (05:57)
[2019-03-30] MEDS: APIXABAN 5 MG TABLET PO SCH ×2 (09:25→20:24)
[2019-03-30] MEDS: POLYETHYL GLY 3350 17 GM/DOSE PO SCH (09:25)
[2019-03-30] MEDS: PARoxetine HCl 10 MG TAB PO SCH (09:25)
[2019-03-30] MEDS: GABAPENTIN 300 MG CAP PO SCH ×3 (09:25→20:24)
[2019-03-30] MEDS: DOCUSATE NA/SENNA CONC 1 TAB PO SCH ×2 (09:25→20:24)
[2019-03-30] MEDS: ATORVASTATIN 40 MG TAB PO SCH (09:25)
[2019-03-30] MEDS: predniSONE 5 MG TAB PO SCH ×2 (10:12→20:24)
[2019-03-30] MEDS: D5W 1,000 ML IV SCH (10:15)
--- NOTE | 2019-03-30 14:50 | PN ---
Date of Progress Note: 03/30/2019 Subjective: Patient was seen this morning for followup. New complaints or problems reported by the patient. Leg pain is better. Objective: Vital Signs: Reviewed. HEENT: Unremarkable. Lungs: Clear to auscultation. Heart: Sounds normal. Abdomen: Soft. Bowel sounds normal. No guarding, rigidity, tenderness, or distention. Extremities: Trace leg edema. Left lower medial leg wound present with surrounding redness present, but overall much better than before. Induration is much better than before. Impression: 1.Abscess/cellulitis, left leg, organism Staphylococcus aureus, not methicillin-resistant Staphyloco ccus aureus. 2.Compression fracture of spine. 3.Chronic obstructive pulmonary disease. 4.Hypertension. 5.Chronic steroid therapy. Plan: We will go ahead and continue current medications. Continue current antibiotic. Patient ric schneider does not have her PICC line. Once we have a PICC line, then we can plan to discharge her to go to alf facility and Social service is working on it. We will discontinue Levaquin and start her on doxycycline 100 mg p.o. b.i.d. and continue IV vancomycin. Continue current Eliquis for DVT of left leg. ARNOL/MODL Voice ID: [id number] Report ID: [id number]
[2019-03-30] MEDS: VANCOMYCIN/NS 1 gm 1 GM/250 ML BAG IVPB SCH (18:16)
[2019-03-30] MEDS: DOXYCYCLINE 100 MG CAP PO SCH (20:24)
[2019-03-31] MEDS: D5W 1,000 ML IV SCH (00:59)
[2019-03-31] MEDS: HYDROCODONE/APAP 10/325 TAB PO SCH ×4 (03:55→21:08)
[2019-03-31] MEDS: LEVOTHYROXINE SOD 0.05 MG TABLET PO SCH (05:37)
[2019-03-31] MEDS: PARoxetine HCl 10 MG TAB PO SCH (08:34)
[2019-03-31] MEDS: GABAPENTIN 300 MG CAP PO SCH ×3 (08:34→20:21)
[2019-03-31] MEDS: DOXYCYCLINE 100 MG CAP PO SCH ×2 (08:35→20:20)
[2019-03-31] MEDS: predniSONE 5 MG TAB PO SCH ×2 (08:35→20:21)
[2019-03-31] MEDS: DOCUSATE NA/SENNA CONC 1 TAB PO SCH ×2 (08:35→20:21)
[2019-03-31] MEDS: APIXABAN 5 MG TABLET PO SCH ×2 (08:35→20:21)
[2019-03-31] MEDS: POLYETHYL GLY 3350 17 GM/DOSE PO SCH (08:36)
[2019-03-31] MEDS: ATORVASTATIN 40 MG TAB PO SCH (08:36)
[2019-03-31] MEDS ORDERED: TIOTROPIUM IH SCH (09:00)
--- NOTE | 2019-03-31 10:18 | PN ---
Date of Progress Note: 03/31/2019 Subjective: Patient was seen this morning for followup. No new complaints, problems reported by tiffanie higginbotham except her ongoing pain in her back area. Leg pain is better. Objective: Vital Signs: Reviewed. HEENT: Unremarkable. Lungs: Clear to auscultation. Heart: Sounds normal. Abdomen: Soft. Bowel sounds normal. No guarding, rigidity, tenderness, distention. Extremities: Trace leg edema. Impression: 1.Cellulitis/abscess, left leg. 2.Compression fracture of spine. 3.Chronic obstructive pulmonary disease. 4.Chronic steroid therapy. 5.Constipation. Plan: Patient reports having bowel movement. We will continue current stool softener and laxative. Continue current antibiotics, which is doxycycline and vancomycin. We still do not have any PICC li ne in place. Once PICC line is placed, then we will be able to discharge her to go to snf. ARNOL/MODL Voice ID: [id number] Report ID: [id number]
[2019-03-31] MEDS: VANCOMYCIN/NS 1 gm 1 GM/250 ML BAG IVPB SCH (14:02)
--- NOTE | 2019-03-31 18:29 | RAD REPORT ---
EXAM DESCRIPTION: RAD - Chest Single View - 03/31/2019 6:21 pm CLINICAL HISTORY: Device placement PICC line placement IMPRESSION: PICC line with its tip in the distal superior vena cava
[2019-03-31 20:38] LABS: Potassium 3.7 mmol/L (3.5-5.1)
[2019-03-31] MEDS ORDERED: POTASSIUM 25 MEQ EFFERV TAB PO ONE (20:47)
[2019-04-01] MEDS: HYDROCODONE/APAP 10/325 TAB PO SCH ×4 (04:42→21:16)
[2019-04-01 05:15] LABS: Basophils % 0.4 % (0-1.3); Hematocrit 32.2 % (36.0-45.0); Lymphocytes % 30.4 % (15.3-44.8); RBC Red Blood Cell Count 3.34 M/uL (3.86-4.86)
[2019-04-01 05:29] LABS: BUN Blood Urea Nitrogen 8 mg/dL (7-18); Bicarbonate 32 mmol/L (21-32); Glucose Level 390 mg/dL (74-106); Sodium Level 131 mmol/L (136-145)
[2019-04-01] MEDS: LEVOTHYROXINE SOD 0.05 MG TABLET PO SCH (05:48)
[2019-04-01] MEDS: VANCOMYCIN/NS 1 gm 1 GM/250 ML BAG IVPB SCH (05:49)
--- NOTE | 2019-04-01 08:47 | RAD REPORT ---
EXAM DESCRIPTION: RAD - Chest Single View - 04/01/2019 8:20 am CLINICAL HISTORY: PICC line placement COMPARISON: March 31 FINDINGS: Portable chest was obtained following placement of a right upper extremity PICC line. The catheter tip is in the right atrium near the SVC atrial junction. If warranted, the line could be retracted [address] the tip in the distal SVC.
[2019-04-01] MEDS: APIXABAN 5 MG TABLET PO SCH ×2 (09:17→21:15)
[2019-04-01] MEDS: DOCUSATE NA/SENNA CONC 1 TAB PO SCH ×2 (09:17→21:00)
[2019-04-01] MEDS: DOXYCYCLINE 100 MG CAP PO SCH ×2 (09:17→21:15)
[2019-04-01] MEDS: GABAPENTIN 300 MG CAP PO SCH ×3 (09:17→21:15)
[2019-04-01] MEDS: PARoxetine HCl 10 MG TAB PO SCH (09:17)
[2019-04-01] MEDS: ATORVASTATIN 40 MG TAB PO SCH (09:19)
[2019-04-01] MEDS: POLYETHYL GLY 3350 17 GM/DOSE PO SCH (09:20)
[2019-04-01] MEDS: predniSONE 5 MG TAB PO SCH ×2 (09:42→21:15)
--- NOTE | 2019-04-01 12:13 | PN ---
Date of Progress Note: 04/01/2019 Subjective: Patient was seen this morning for followup. Besides her back and hip pain, no other new complaints or problems reported. Leg is feeling much better. No constipation problem. No diarrhea . Objective: Vital Signs: Reviewed. HEENT: Unremarkable. Lungs: Clear to auscultation. Heart: Sounds normal. Abdomen: Soft. Bowel sounds normal. No guarding, rigidity, tenderness, or distention. Extremities: Left leg redness has significantly improved. Small open wound. No discharge. No redn ess or induration surrounding. No tenderness around it. No discharge. No bleeding. Laboratory Data: White count 6.9, hemoglobin 11, platelets 287. Sodium 131, potassium 4, chloride 9 6, bicarb 32, BUN 8, creatinine 0.58, glucose 390. This was earlier this morning when someone ramiro h er blood and I strongly suspect that this was probably ramiro near the IV site as patient was getting I V fluid containing D5 and this blood was drawn at 4:40 a.m., and soon as I looked at it, I asked nurs e to do fingerstick blood sugar and it was 69 at 7:24 a.m. Impression: 1.Paroxysmal ventricular tachycardia. 2.Cellulitis/abscess, left leg. 3.Compression fracture of lumbar spine. Plan: The patient had a PICC line placed, this was around 4:00 p.m. or so and around 7:00 p.m. or so , she had nonsustained ventricular tachycardia, off and on for about 1 minute or so as reported by IC U as per my discussion today. PICC line nurse will look into this to see if her PICC line needs to b e pulled out after doing x-ray and talking to radiologist, but I suspect this nonsustained ventricula r tachycardia may have something to do with the PICC line catheter causing irritation, but meanwhile, we will also request consultation from our pt skilled, Dr. Ward to evaluate her for this as well as for preop clearance as she is going to need kyphoplasty type of procedure in near future. Continue current antibiotics. After the cardiac evaluation, plan is to di scharge her to go to [facility]. ARNOL/MODL Voice ID: [id number] Report ID: [id number]
--- NOTE | 2019-04-01 20:08 | RAD REPORT ---
EXAM DESCRIPTION: RAD - Chest Single View - 04/01/2019 8:01 pm CLINICAL HISTORY: PICC line placement COMPARISON: April 01 FINDINGS: Portable chest was obtained following placement of a right upper extremity PICC line. The catheter tip is in the SVC atrial junction.
--- NOTE | 2019-04-01 20:48 | CON ---
Date of Consultation: 04/01/2019 Reason For Consultation: Ventricular tachycardia, nonsustained. Also cardiac clearance. History Of Present Illness: Ms. Jenkins is 88, has a history of COPD, dyslipidemia, hypothyroidism, a nd neuropathy, was admitted with an infection of her left leg and cellulitis. She got a PICC line pl aced. The PICC line obviously was noted on chest x-ray to be sitting in the right atrium. She had s ome nonsustained ventricular tachycardia. The PICC line was recommended to be drawback 3 cm. Jett torres has never had congestive heart failure or history of arrhythmia in the past. Her EKG is actually n ormal. Past Medical History: As stated above. Allergies: DEMEROL AND METHOTREXATE. Review of Systems: Positive for recent back injury requiring kyphoplasty. Social History: Negative. Family History: Negative. Medications: At home include inhalers, Lipitor, prednisone, Synthroid, and Neurontin. Physical Examination: General: She was very pleasant. Vital Signs: Stable, afebrile. HEENT: Negative. Neck: Supple with no bruit, lymphadenopathy, JVD, or thyromegaly. Chest: Clear to auscultation and percussion. Cardiac: Revealed a regular rhythm and rate. No murmurs, gallops, or rubs. Abdomen: Benign. Extremities: She had slight swelling in the left lower extremity, but it was wrapped with dressing t hat was dry and intact. Her pulses were present bilaterally. Diagnostic Data: Of interest her EKG was normal. She had a venous Doppler showing a left popliteal vein DVT that is acute. Impression And Plan: 1.Nonsustained ventricular tachycardia secondary to the PICC line. 2.Left popliteal vein acute deep vein thrombosis on Eliquis. 3.Chronic obstructive pulmonary disease. 4.Dyslipidemia. 5.Hypothyroidism. Ms. Jenkins from my standpoint is clear to undergo her kyphoplasty. Eliquis should be held only for p robably 1 day or 2 max before they do this. Then a temporary IVC filter may also be reasonable prior to her doing the kyphoplasty. She should be on Eliquis for a minimum of 3 months, but I will leave that up to Dr. Pollock. GABRIELE/MAGDA Voice ID: [id number] Report ID: [id number]
[2019-04-02] MEDS: VANCOMYCIN/NS 1 gm 1 GM/250 ML BAG IVPB SCH (00:24)
[2019-04-02] MEDS: HYDROCODONE/APAP 10/325 TAB PO SCH ×3 (03:51→14:53)
[2019-04-02] MEDS: LEVOTHYROXINE SOD 0.05 MG TABLET PO SCH (06:22)
[2019-04-02] MEDS: predniSONE 5 MG TAB PO SCH (07:50)
[2019-04-02] MEDS: APIXABAN 5 MG TABLET PO SCH (07:50)
[2019-04-02] MEDS: PARoxetine HCl 10 MG TAB PO SCH (07:50)
[2019-04-02] MEDS: DOXYCYCLINE 100 MG CAP PO SCH (07:51)
[2019-04-02] MEDS: POLYETHYL GLY 3350 17 GM/DOSE PO SCH (07:51)
[2019-04-02] MEDS: DOCUSATE NA/SENNA CONC 1 TAB PO SCH (07:51)
[2019-04-02] MEDS: GABAPENTIN 300 MG CAP PO SCH ×2 (07:51→13:57)
[2019-04-02] MEDS: ATORVASTATIN 40 MG TAB PO SCH (07:51)
[2019-04-02 08:07] VITALS: O2SAT 94
[2019-04-02 12:45] VITALS: BP 156/77; TEMP 97.4
--- NOTE | 2019-04-02 21:47 | DS ---
Date of Discharge: 04/02/2019 History: Patient was seen this morning for followup. No new complaints or problems reported by anayeli ent. She was lying in bed, not in any distress. Physical Examination: Vital Signs: Reviewed. HEENT: Unremarkable. Lungs: Clear to auscultation. Heart: Heart sounds normal. Abdomen: Soft, bowel sounds normal. No guarding, rigidity, tenderness, or distention. Extremities: Trace leg edema, nonpitting, and this is chronic lymphedema that she has. Left lower e xtremity has a small open wound. Dressing was removed to examine the wound and there is no discharge , no bleeding. It is much smaller than before, and surrounding skin is normal. There is no evidence of any redness, induration, or tenderness, so the leg is significantly better compared to before. Laboratory Data: Upon admission, on 03/28/2019, white count was 8.2, hemoglobin 11.7, platelets 274. Yesterday, white count 6.5, hemoglobin 11, platelets 287. Yesterday, sodium 131, potassium 4, chlo ride 96, bicarb 32, BUN 8, creatinine 0.58, glucose was 390, but this was drawn incorrectly by lab, i t was drawn proximal to the IV infusion site and she was getting IV fluid with D5W and after that her blood glucose was normal that was checked as per fingerstick blood sugar. Upon admission, sodium le denice was 155 and with IV fluid, it got corrected. Wound culture grew Staph aureus and this is not MRS A. Hospital Course: An 88-year-old female patient admitted to the hospital with left leg pain. Please see dictated H and P for more information. Patient was admitted to the hospital with volume depletio n and failure of outpatient antibiotic therapy for cellulitis/abscess of left leg. Please see dictat ed H and P for more details. After the patient was admitted to the hospital, she was given IV vancom ycin and also started her on oral doxycycline. Dr. Granado, from General Surgery was consulted. Omar craig had incision and drainage done during her last hospital admission and during this admission, Dr Pratima Granado decided that there was no need for any repeat procedure. With IV antibiotics and oral ant ibiotics as well as wound care dressing changes, her condition improved. Leg looks significantly bet ter. Venous Doppler of left leg done in the emergency room also shows presence of deep vein thrombos is. Patient had a DVT of leg and pulmonary embolism in 2018, and that was after her surgery and she received anticoagulation therapy. This is her second DVT. Lately, because of her back problem, she has not been as active as before and I am sure that has resulted in this recurrent DVT problem for he r. Few days prior to this hospital admission, the patient saw a neurosurgeon, Dr. Westbrook, who is corina kennedy to do kyphoplasty procedure for her compression fracture of spine. It was originally scheduled to be done this week on Tuesday, but because she is in the hospital and now with DVT, the procedure wi ll need to be postponed and I did talk to patient's son in great detail about this and explained to h im that the patient is at high risk of thromboembolic phenomena and during kyphoplasty procedure we w ill have to discontinue her anticoagulation therapy a few days prior to the procedure we will have to discontinue her oral anticoagulation therapy and she will be at increased risk of deep venous thromb osis and pulmonary embolism. So my recommendation will be for patient to have temporary IVC filter p lacement prior to this kyphoplasty procedure and then kyphoplasty procedure to be performed after live t. We will see if all those can be accomplished with interruption of anticoagulation therapy only 1 time instead of 2 different times and I will have to communicate with Dr. Westbrook about it. But right now, we will need to first finish IV antibiotic therapy and for that patient will need to go to skill ed nursing facility. Social Service was consulted and after all the arrangements completed, PICC elvi e was placed. Today, she was discharged in stable condition. After PICC line was placed, patient matute d a short run of frequent PVCs and short runs of paroxysmal ventricular tachycardia, and this was det ermined to be due to a PICC line catheter tip in the right atrium causing irritation and once that wa s pulled back by PICC line nurse, no further problem reported. Cardiology consultation was obtained from Dr. Ro yesterday for this ventricular tachycardia as well as preop clearance and he called and informed me that the patient is clear for kyphoplasty procedure from cardiac point of view and no further intervention needed for cardiac arrhythmia that was noted to be due to catheter tip causing irritation. Discharge Diagnoses: 1.Volume depletion. 2.Cellulitis/abscess, left leg. 3.Deep vein thrombosis, left leg. 4.Compression fracture of lumbar spine. 5.Osteoarthritis, multiple sites. 6.Hypertension. 7.Lymphedema, legs. 8.Anemia. 9.Hypothyroidism. 10.Chronic obstructive pulmonary disease. 11.Chronic steroid therapy. Discharge Medications And Instructions: 1.Continue all prior home medications except stop Levaquin and start doxycycline 100 mg by mouth 2 t imes a day for 1 week. 2.Daily dressing changes as per instruction from Dr. Granado. 3.Follow with Dr. Granado's next week. 4.Flush PICC line per protocol. 5.Change PICC line dressing per protocol. 6.Remove PICC line after 1 week of IV antibiotic therapy completed. 7.Give vancomycin 1 g IV piggyback every 18 hours for 1 week. 8.Vancomycin trough level, CBC, and chem-7 to be done in 2-3 days. 9.Give Eliquis 5 mg, patient to take 2 tablets that is 10 mg by mouth 2 times a day today and tomorr ow and as of April 04, 2019, change the dose to 1 tablet, which is 5 mg by mouth 2 times a day. Stephan valladares at my office after getting discharged from [facility] and at that time, I will assist anayeliezio t with further management, which is followup with Dr. Westbrook IVC filter and kyphoplasty procedure. ARNOL/MODL Voice ID: [id number] Report ID: [id number]
== END 2019-04-02 15:12 | DRG 603 ==
LOC: ER 15:06 → ERHOLD 21:49 → 4TH 22:24
PROVIDERS: ADMIT Internal Medicine; ATTEND Internal Medicine
PROC: 02HV33Z Insertion of Infusion Device into Superior Vena Cava, Percutaneous Approach (ICD-10-PCS; principal; 2019-03-31)
DX: L03.116 Cellulitis of left lower limb (principal); I82.432 Acute embolism and thrombosis of left popliteal vein; M48.56XA Collapsed vertebra, not elsewhere classified, lumbar region, initial encounter for fracture; B95.61 Methicillin susceptible Staphylococcus aureus infection as the cause of diseases classified elsewhere; E86.9 Volume depletion, unspecified; M19.90 Unspecified osteoarthritis, unspecified site; I10 Essential (primary) hypertension; I89.0 Lymphedema, not elsewhere classified; D64.9 Anemia, unspecified; E03.9 Hypothyroidism, unspecified; J44.9 Chronic obstructive pulmonary disease, unspecified; Z79.52 Long term (current) use of systemic steroids
CPT/HCPCS: 36415; 71045; 80048; 80076; 80202; 81003; 81015; 82947; 83605; 83735; 83880; 84145; 84484; 85025; 85610; 87040; 87070; 87077; 87086; 87088; 87186; 87205; 93005; 93971; 96365; 96366; 96367; 96368; 99285; J3010; J3370; J7040; J7512

== ENCOUNTER 2019-07-03 15:04 | Inpatient (IN) | payer OTHER ==
--- OUTSIDE RECORDS SUMMARY | 2019-07-03 15:07 | XMS REPORT ---
:1930 Author Organization [facility] t Address [address] [place] [address] Dr. Marsh [address] [place] [id number] Care Team Providers Name Role Phone MIKE ZARI Unavailable Unavailable OTHMAN Unavailable Unavailable Problems This patient has no known problems. Allergies, Adverse Reactions, Alerts This patient has no known allergies or adverse reactions. Medications This patient has no known medications. Results Test Description Test Time Test Comments Text Results Atomic Results Result Comments TISSUE EXAM 2017-09-20 16:22:00 Surgical Pathology Re port Case: [id number] Authorizing Provider: Misha Calloway MD Collected: [id number] Ordering Location: [address] Received: 018 0820 Service Pathologist: Larry Tena ra, MD Specimen: Polyp, Colon - Rectosigmoid, POLYP TAKEN BY HOT SNARE RECTO-SIGMOID, POLYPECTOMY- TUBULAR ADENOMA- CAUTERIZED EDGE, NEGATIVE FO R ADENOMATOUS CHANGE Signing Pathologist Dire ct Phone Line: [phone] s igned by Larry Cohn MD on 09/20/2017 at 4:22 [id number] bleedRectosigmoid colon poly pThe specimen is received in a formalin-fille d container and labeled with the patient's i nformation and labeled "rectosigmoid colon polyp" and consists of a durham-red polyp measuring 0.8 x 0.8 x 0.3 cm. Resection margin is inked bl ue. The specimen is trisected, submitted entirel y A1. CG/pl There is no high grade dysplasia or c arcinoma. MAGNESIUM 2017-09-17 07:32:00 Test Item Value Reference Range Comments MAGNESIUM (BEAKER) (test code = 627) 1.9 mg/dL 1.6-2.6 BASIC METABOLIC [id number] 07:32:00 Test Item Value Reference Range Comments SODIUM (BEAKER) (test 138 meq/L 136-145 code = 381) POTASSIUM (BEAKER) (test 4.2 meq/L 3.5-5.1 code = 379) CHLORIDE (BEAKER) (test 106 meq/L 98-107 code = 382) CO2 (BEAKER) (test code = 25 meq/L 22-29 355) BLOOD UREA NITROGEN 6 mg/dL 7-21 (BEAKER) (test code = 354) CREATININE (BEAKER) (test 0.66 mg/dL 0.57-1.25 code = 358) GLUCOSE RANDOM (BEAKER) 76 mg/dL 70-105 (test code = 652) CALCIUM (BEAKER) (test 8.4 mg/dL 8.4-10.2 code = 697) EGFR (BEAKER) (test code 85 mL/min/1.73 sq m EST IMATED GFR IS NOT = 1092) ACCURATE CREA TININE CLEARANCE IN PRE DICTING GLOMERULAR FILTR ATION RATE. ESTIMATED GFR IS NOT APPLICABLE F OR DIALYSIS PATIENT S. [id number] 06:42:00 Test Item Value Reference Range Comments PROTIME (BEAKER) (test code = 759) 20.8 seconds 11.7-14.7 INR (BEAKER) (test code = 370) 1.8 <=5.9 PARTIAL THROMBOPLASTIN TIME (BEAKER) (test code 36.1 seconds 22.5-36.0 = 760) RECOMMENDED COUMADIN/WARFARIN INR THERAPY RANGESSTANDARD DOSE: 2.0 - 3.0 Includes: PROPHYLAXIS forvenous thrombosis, systemic embolization; TREATMENT for venous thrombosis and/or pulmonary embolus.HIGH RISK: Target INR is 2.5-3.5 for patients with mechanical heart valves.CBC W/PLT COUNT & AUTO DIFFERENTIAL 2017-09-17 06:41:00 Test Item Value Reference Range Comments WHITE BLOOD CELL COUNT (BEAKER) (test code = 5.5 K/ L 3.5 -10.5 775) RED BLOOD CELL COUNT (BEAKER) (test code = 761) 3.52 M/ L 3.93-5.22 HEMOGLOBIN (BEAKER) (test code = 410) 10.4 GM/DL 11.2-15.7 HEMATOCRIT (BEAKER) (test code = 411) 33.1 % 34.1-44.9 MEAN CORPUSCULAR VOLUME (BEAKER) (test code = 94.0 fL 79 .4-94.8 753) MEAN CORPUSCULAR HEMOGLOBIN (BEAKER) (test code 29.5 pg 25.6-32.2 = 751) MEAN CORPUSCULAR HEMOGLOBIN CONC (BEAKER) (test 31.4 GM/DL 32.2-35.5 code = 752) RED CELL DISTRIBUTION WIDTH (BEAKER) (test code 19.8 % 11.7-14.4 = 412) PLATELET COUNT (BEAKER) (test code = 756) 240 K/CU MM 150-45 0 MEAN PLATELET VOLUME (BEAKER) (test code = 754) 8.5 fL 9.4-12.3 NUCLEATED RED BLOOD CELLS (BEAKER) (test code = 0 /100 WBC 0-0 413) NEUTROPHILS RELATIVE PERCENT (BEAKER) (test code 43 % = 429) LYMPHOCYTES RELATIVE PERCENT (BEAKER) (test code 49 % = 430) MONOCYTES RELATIVE PERCENT (BEAKER) (test code = 7 % 431) EOSINOPHILS RELATIVE PERCENT (BEAKER) (test code 1 % = 432) BASOPHILS RELATIVE PERCENT (BEAKER) (test code = 0 % 437) NEUTROPHILS ABSOLUTE COUNT (BEAKER) (test code = 2.34 K/ L 1.56-6.13 670) LYMPHOCYTES ABSOLUTE COUNT (BEAKER) (test code = 2.68 K/ L 1.18-3.74 414) MONOCYTES ABSOLUTE COUNT (BEAKER) (test code = 0.38 K/ L 0 .24-0.36 415) EOSINOPHILS ABSOLUTE COUNT (BEAKER) (test code = 0.05 K/ L 0.04-0.36 416) BASOPHILS ABSOLUTE COUNT (BEAKER) (test code = 0.02 K/ L 0 .01-0.08 417) IMMATURE GRANULOCYTES-RELATIVE PERCENT (BEAKER) 0 % 0-1 (test code = 2801) [id number] 19:07:00 Test Item Value Reference Range Comments MAGNESIUM (BEAKER) (test code = 627) 1.9 mg/dL 1.6-2.6 BASIC METABOLIC [id number] 19:07:00 Test Item Value Reference Range Comments SODIUM (BEAKER) (test 137 meq/L 136-145 code = 381) POTASSIUM (BEAKER) (test 3.8 meq/L 3.5-5.1 code = 379) CHLORIDE (BEAKER) (test 106 meq/L 98-107 code = 382) CO2 (BEAKER) (test code = 23 meq/L 22-29 355) BLOOD UREA NITROGEN 6 mg/dL 7-21 (BEAKER) (test code = 354) CREATININE (BEAKER) (test 0.64 mg/dL 0.57-1.25 code = 358) GLUCOSE RANDOM (BEAKER) 82 mg/dL 70-105 (test code = 652) CALCIUM (BEAKER) (test 8.5 mg/dL 8.4-10.2 code = 697) EGFR (BEAKER) (test code 88 mL/min/1.73 sq m EST IMATED GFR IS NOT = 1092) ACCURATE CREA TININE CLEARANCE IN PRE DICTING GLOMERULAR FILTR ATION RATE. ESTIMATED GFR IS NOT APPLICABLE F OR DIALYSIS PATIENT S. CBC (HEMOGRAM ONLY)2017-09-16 18:38:00 Test Item Value Reference Range Comments WHITE BLOOD CELL COUNT (BEAKER) (test code = 6.5 K/ L 3.5 -10.5 775) RED BLOOD CELL COUNT (BEAKER) (test code = 761) 3.61 M/ L 3.93-5.22 HEMOGLOBIN (BEAKER) (test code = 410) 10.9 GM/DL 11.2-15.7 HEMATOCRIT (BEAKER) (test code = 411) 33.5 % 34.1-44.9 MEAN CORPUSCULAR VOLUME (BEAKER) (test code = 92.8 fL 79 .4-94.8 753) MEAN CORPUSCULAR HEMOGLOBIN (BEAKER) (test code 30.2 pg 25.6-32.2 = 751) MEAN CORPUSCULAR HEMOGLOBIN CONC (BEAKER) (test 32.5 GM/DL 32.2-35.5 code = 752) RED CELL DISTRIBUTION WIDTH (BEAKER) (test code 19.8 % 11.7-14.4 = 412) PLATELET COUNT (BEAKER) (test code = 756) 239 K/CU MM 150-45 0 MEAN PLATELET VOLUME (BEAKER) (test code = 754) 8.7 fL 9.4-12.3 NUCLEATED RED BLOOD CELLS (BEAKER) (test code = 0 /100 WBC 0-0 413) [id number] 06:56:00 Test Item Value Reference Range Comments PHOSPHORUS (BEAKER) (test code = 604) 2.7 mg/dL 2.3-4.7 [id number] 06:56:00 Test Item Value Reference Range Comments MAGNESIUM (BEAKER) (test code = 627) 1.9 mg/dL 1.6-2.6 BASIC METABOLIC [id number] 06:56:00 Test Item Value Reference Range Comments SODIUM (BEAKER) (test 139 meq/L 136-145 code = 381) POTASSIUM (BEAKER) (test 4.1 meq/L 3.5-5.1 code = 379) CHLORIDE (BEAKER) (test 107 meq/L 98-107 code = 382) CO2 (BEAKER) (test code = 26 meq/L 22-29 355) BLOOD UREA NITROGEN 11 mg/dL 7-21 (BEAKER) (test code = 354) CREATININE (BEAKER) (test 0.73 mg/dL 0.57-1.25 code = 358) GLUCOSE RANDOM (BEAKER) 107 mg/dL 70-105 (test code = 652) CALCIUM (BEAKER) (test 8.5 mg/dL 8.4-10.2 code = 697) EGFR (BEAKER) (test code 76 mL/min/1.73 sq m EST IMATED GFR IS NOT = 1092) ACCURATE CREA TININE CLEARANCE IN PRE DICTING GLOMERULAR FILTR ATION RATE. ESTIMATED GFR IS NOT APPLICABLE F OR DIALYSIS PATIENT S. HEPATIC FUNCTION [id number] 06:56:00 Test Item Value Reference Range Comments TOTAL PROTEIN (BEAKER) (test code = 770) 5.2 gm/dL 6.0-8.3 ALBUMIN (BEAKER) (test code = 1145) 2.9 g/dL 3.5-5.0 BILIRUBIN TOTAL (BEAKER) (test code = 377) 0.8 mg/dL 0.2-1 .2 BILIRUBIN DIRECT (BEAKER) (test code = 706) 0.4 mg/dL 0.1- 0.5 ALKALINE PHOSPHATASE (BEAKER) (test code = 346) 43 U/L 40-150 AST (SGOT) (BEAKER) (test code = 353) 13 U/L 5-34 ALT (SGPT) (BEAKER) (test code = 347) 10 U/L 6-55 CALCIUM, [id number] 06:36:00 Test Item Value Reference Range Comments CALCIUM IONIZED (BEAKER) (test code = 698) 1.05 mmol/L 1.12- 1.27 PH, BLOOD (BEAKER) (test code = 1810) 7.46 PROTHROMBIN [id number] 06:35:00 Test Item Value Reference Range Comments PROTIME (BEAKER) (test code = 759) 14.2 seconds 11.7-14.7 INR (BEAKER) (test code = 370) 1.1 <=5.9 RECOMMENDED COUMADIN/WARFARIN INR THERAPY RANGESSTANDARD DOSE: 2.0 - 3.0 Includes: PROPHYLAXIS forvenous thrombosis, systemic embolization; TREATMENT for venous thrombosis and/or pulmonary embolus.HIGH RISK: Target INR is 2.5-3.5 for patients with mechanical heart valves.CBC W/PLT COUNT & AUTO DIFFERENTIAL 2017-08-05 06:25:00 Test Item Value Reference Range Comments WHITE BLOOD CELL COUNT (BEAKER) (test code = 9.4 K/ L 3.5 -10.5 775) RED BLOOD CELL COUNT (BEAKER) (test code = 761) 3.48 M/ L 3.93-5.22 HEMOGLOBIN (BEAKER) (test code = 410) 10.0 GM/DL 11.2-15.7 HEMATOCRIT (BEAKER) (test code = 411) 31.1 % 34.1-44.9 MEAN CORPUSCULAR VOLUME (BEAKER) (test code = 89.4 fL 79 .4-94.8 753) MEAN CORPUSCULAR HEMOGLOBIN (BEAKER) (test code 28.7 pg 25.6-32.2 = 751) MEAN CORPUSCULAR HEMOGLOBIN CONC (BEAKER) (test 32.2 GM/DL 32.2-35.5 code = 752) RED CELL DISTRIBUTION WIDTH (BEAKER) (test code 18.3 % 11.7-14.4 = 412) PLATELET COUNT (BEAKER) (test code = 756) 234 K/CU MM 150-45 0 MEAN PLATELET VOLUME (BEAKER) (test code = 754) 8.9 fL 9.4-12.3 NUCLEATED RED BLOOD CELLS (BEAKER) (test code = 0 /100 WBC 0-0 413) NEUTROPHILS RELATIVE PERCENT (BEAKER) (test code 70 % = 429) LYMPHOCYTES RELATIVE PERCENT (BEAKER) (test code 24 % = 430) MONOCYTES RELATIVE PERCENT (BEAKER) (test code = 5 % 431) EOSINOPHILS RELATIVE PERCENT (BEAKER) (test code 0 % = 432) BASOPHILS RELATIVE PERCENT (BEAKER) (test code = 0 % 437) NEUTROPHILS ABSOLUTE COUNT (BEAKER) (test code = 6.54 K/ L 1.56-6.13 670) LYMPHOCYTES ABSOLUTE COUNT (BEAKER) (test code = 2.30 K/ L 1.18-3.74 414) MONOCYTES ABSOLUTE COUNT (BEAKER) (test code = 0.50 K/ L 0 .24-0.36 415) EOSINOPHILS ABSOLUTE COUNT (BEAKER) (test code = 0.03 K/ L 0.04-0.36 416) BASOPHILS ABSOLUTE COUNT (BEAKER) (test code = 0.02 K/ L 0 .01-0.08 417) IMMATURE GRANULOCYTES-RELATIVE PERCENT (BEAKER) 0 % 0-1 (test code = 2801) TISSUE [id number] 14:52:00Surgical Pathology Report Case: [id number] Authorizing Provider: Ricardo Wilson MD Collected: 08/02/2017 1715 Ordering Location: [facility] Endoscopy Received: 08/03/2017 0837 Services Pathologist: Larry Cohn MD Specimen: Rectal, MASS- TAKEN BY ESD, ON WAX, EVALUATE MARGINS RECTAL, 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 Sectioning reveals a pink-durham, homogeneous, friable cut surface. No firm areas are identified.The surrounding uninvolved mucosa is pink-durham, dusky and unremarkabl e.Ink code: Peripheral resection margins-black, deep margin-blue.The specimen is entirely sequentially submitted in cassettes A1-A15 with one bisected slice in each cassette. DB/ew Microscopic examination is performed and the findings are incorporated in the diagnostic line.CBC W/PLT COUNT & AUTO DIFFERENTIAL 2017-08-04 06:19:00 Test Item Value Reference Range Comments WHITE BLOOD CELL COUNT (BEAKER) (test code = 15.6 K/ L 3.5 -10.5 775) RED BLOOD CELL COUNT (BEAKER) (test code = 761) 3.50 M/ L 3.93-5.22 HEMOGLOBIN (BEAKER) (test code = 410) 9.9 GM/DL 11.2-15.7 HEMATOCRIT (BEAKER) (test code = 411) 31.4 % 34.1-44.9 MEAN CORPUSCULAR VOLUME (BEAKER) (test code = 89.7 fL 79 .4-94.8 753) MEAN CORPUSCULAR HEMOGLOBIN (BEAKER) (test code 28.3 pg 25.6-32.2 = 751) MEAN CORPUSCULAR HEMOGLOBIN CONC (BEAKER) (test 31.5 GM/DL 32.2-35.5 code = 752) RED CELL DISTRIBUTION WIDTH (BEAKER) (test code 18.0 % 11.7-14.4 = 412) PLATELET COUNT (BEAKER) (test code = 756) 223 K/CU MM 150-45 0 MEAN PLATELET VOLUME (BEAKER) (test code = 754) 8.7 fL 9.4-12.3 NUCLEATED RED BLOOD CELLS (BEAKER) (test code = 0 /100 WBC 0-0 413) NEUTROPHILS RELATIVE PERCENT (BEAKER) (test code 81 % = 429) LYMPHOCYTES RELATIVE PERCENT (BEAKER) (test code 15 % = 430) MONOCYTES RELATIVE PERCENT (BEAKER) (test code = 4 % 431) EOSINOPHILS RELATIVE PERCENT (BEAKER) (test code 0 % = 432) BASOPHILS RELATIVE PERCENT (BEAKER) (test code = 0 % 437) NEUTROPHILS ABSOLUTE COUNT (BEAKER) (test code = 12.56 K/ L 1.56-6.13 670) LYMPHOCYTES ABSOLUTE COUNT (BEAKER) (test code = 2.36 K/ L 1.18-3.74 414) MONOCYTES ABSOLUTE COUNT (BEAKER) (test code = 0.56 K/ L 0 .24-0.36 415) EOSINOPHILS ABSOLUTE COUNT (BEAKER) (test code = 0.03 K/ L 0.04-0.36 416) BASOPHILS ABSOLUTE COUNT (BEAKER) (test code = 0.02 K/ L 0 .01-0.08 417) IMMATURE GRANULOCYTES-RELATIVE PERCENT (BEAKER) 0 % 0-1 (test code = 2801) HEPATIC FUNCTION [id number] 06:15:00 Test Item Value Reference Range Comments TOTAL PROTEIN (BEAKER) (test code = 770) 4.9 gm/dL 6.0-8.3 ALBUMIN (BEAKER) (test code = 1145) 2.8 g/dL 3.5-5.0 BILIRUBIN TOTAL (BEAKER) (test code = 377) 1.1 mg/dL 0.2-1 .2 BILIRUBIN DIRECT (BEAKER) (test code = 706) 0.5 mg/dL 0.1- 0.5 ALKALINE PHOSPHATASE (BEAKER) (test code = 346) 42 U/L 40-150 AST (SGOT) (BEAKER) (test code = 353) 15 U/L 5-34 ALT (SGPT) (BEAKER) (test code = 347) 12 U/L 6-55 BASIC METABOLIC [id number] 06:15:00 Test Item Value Reference Range Comments SODIUM (BEAKER) (test 139 meq/L 136-145 code = 381) POTASSIUM (BEAKER) (test 4.6 meq/L 3.5-5.1 code = 379) CHLORIDE (BEAKER) (test 108 meq/L 98-107 code = 382) CO2 (BEAKER) (test code = 25 meq/L 22-29 355) BLOOD UREA NITROGEN 13 mg/dL 7-21 (BEAKER) (test code = 354) CREATININE (BEAKER) (test 0.73 mg/dL 0.57-1.25 code = 358) GLUCOSE RANDOM (BEAKER) 115 mg/dL 70-105 (test code = 652) CALCIUM (BEAKER) (test 8.5 mg/dL 8.4-10.2 code = 697) EGFR (BEAKER) (test code 76 mL/min/1.73 sq m EST IMATED GFR IS NOT = 1092) ACCURATE CREA TININE CLEARANCE IN PRE DICTING GLOMERULAR FILTR ATION RATE. ESTIMATED GFR IS NOT APPLICABLE F OR DIALYSIS PATIENT S. PROTHROMBIN [id number] 05:59:00 Test Item Value Reference Range Comments PROTIME (BEAKER) (test code = 759) 14.6 seconds 11.7-14.7 INR (BEAKER) (test code = 370) 1.1 <=5.9 RECOMMENDED COUMADIN/WARFARIN INR THERAPY RANGESSTANDARD DOSE: 2.0 - 3.0 Includes: PROPHYLAXIS forvenous thrombosis, systemic embolization; TREATMENT for venous thrombosis and/or pulmonary embolus.HIGH RISK: Target INR is 2.5-3.5 for patients with mechanical heart valves.URINALYSIS W/ [id number] 14:53:00 Test Item Value Reference Range Comments COLOR (BEAKER) (test code = 470) Yellow CLARITY (BEAKER) (test code = 469) Clear SPECIFIC GRAVITY UA (BEAKER) (test code = 468) 1.010 1 .001-1.035 PH UA (BEAKER) (test code = 467) 5.5 5.0-8.0 PROTEIN UA (BEAKER) (test code = 464) Negative Negative GLUCOSE UA (BEAKER) (test code = 365) Negative Negative KETONES UA (BEAKER) (test code = 371) Trace Negative BILIRUBIN UA (BEAKER) (test code = 462) Negative Negative BLOOD UA (BEAKER) (test code = 461) Negative Negative NITRITE UA (BEAKER) (test code = 465) Negative Negative LEUKOCYTE ESTERASE UA (BEAKER) (test code = 466) Negative Negative UROBILINOGEN UA (BEAKER) (test code = 463) 0.2 mg/dL 0.2-1 .0 RBC UA (BEAKER) (test code = 519) 1 /HPF WBC UA (BEAKER) (test code = 520) 3 /HPF MUCUS (BEAKER) (test code = 6814) Few SQUAMOUS EPITHELIAL (BEAKER) (test code = 516) < /HPF HYALINE CASTS (BEAKER) (test code = 514) 2 /LPF SOURCE(BEAKER) (test code = 2662) HEPATIC FUNCTION [id number] 06:31:00 Test Item Value Reference Range Comments TOTAL PROTEIN (BEAKER) (test code = 770) 5.2 gm/dL 6.0-8.3 ALBUMIN (BEAKER) (test code = 1145) 3.1 g/dL 3.5-5.0 BILIRUBIN TOTAL (BEAKER) (test code = 377) 1.1 mg/dL 0.2-1 .2 BILIRUBIN DIRECT (BEAKER) (test code = 706) 0.5 mg/dL 0.1- 0.5 ALKALINE PHOSPHATASE (BEAKER) (test code = 346) 47 U/L 40-150 AST (SGOT) (BEAKER) (test code = 353) 20 U/L 5-34 ALT (SGPT) (BEAKER) (test code = 347) 15 U/L 6-55 BASIC METABOLIC [id number] 06:31:00 Test Item Value Reference Range Comments SODIUM (BEAKER) (test 139 meq/L 136-145 code = 381) POTASSIUM (BEAKER) (test 2.7 meq/L 3.5-5.1 code = 379) CHLORIDE (BEAKER) (test 106 meq/L 98-107 code = 382) CO2 (BEAKER) (test code = 24 meq/L 22-29 355) BLOOD UREA NITROGEN 7 mg/dL 7-21 (BEAKER) (test code = 354) CREATININE (BEAKER) (test 0.61 mg/dL 0.57-1.25 code = 358) GLUCOSE RANDOM (BEAKER) 88 mg/dL 70-105 (test code = 652) CALCIUM (BEAKER) (test 8.4 mg/dL 8.4-10.2 code = 697) EGFR (BEAKER) (test code 93 mL/min/1.73 sq m EST IMATED GFR IS NOT = 1092) ACCURATE CREA TININE CLEARANCE IN PRE DICTING GLOMERULAR FILTR ATION RATE. ESTIMATED GFR IS NOT APPLICABLE F OR DIALYSIS PATIENT S. BASIC METABOLIC [id number] 06:30:00 Test Item Value Reference Range Comments SODIUM (BEAKER) (test 136 meq/L 136-145 code = 381) POTASSIUM (BEAKER) (test 3.0 meq/L 3.5-5.1 Specime n slightly code = 379) hemolyzed CHLORIDE (BEAKER) (test 106 meq/L 98-107 code = 382) CO2 (BEAKER) (test code = 20 meq/L 22-29 355) BLOOD UREA NITROGEN 7 mg/dL 7-21 (BEAKER) (test code = 354) CREATININE (BEAKER) (test 0.61 mg/dL 0.57-1.25 Specim en slightly code = 358) hemolyzed GLUCOSE RANDOM (BEAKER) 81 mg/dL 70-105 (test code = 652) CALCIUM (BEAKER) (test 8.2 mg/dL 8.4-10.2 code = 697) EGFR (BEAKER) (test code 93 mL/min/1.73 sq m EST IMATED GFR IS NOT = 1092) ACCURATE CREA TININE CLEARANCE IN PRE DICTING GLOMERULAR FILTR ATION RATE. ESTIMATED GFR IS NOT APPLICABLE F OR DIALYSIS PATIENT S. CBC W/PLT COUNT & AUTO [id number] 06:25:00 Test Item Value Reference Range Comments WHITE BLOOD CELL COUNT (BEAKER) (test code = 14.6 K/ L 3.5 -10.5 775) RED BLOOD CELL COUNT (BEAKER) (test code = 761) 3.75 M/ L 3.93-5.22 HEMOGLOBIN (BEAKER) (test code = 410) 10.5 GM/DL 11.2-15.7 HEMATOCRIT (BEAKER) (test code = 411) 33.1 % 34.1-44.9 MEAN CORPUSCULAR VOLUME (BEAKER) (test code = 88.3 fL 79 .4-94.8 753) MEAN CORPUSCULAR HEMOGLOBIN (BEAKER) (test code 28.0 pg 25.6-32.2 = 751) MEAN CORPUSCULAR HEMOGLOBIN CONC (BEAKER) (test 31.7 GM/DL 32.2-35.5 code = 752) RED CELL DISTRIBUTION WIDTH (BEAKER) (test code 17.5 % 11.7-14.4 = 412) PLATELET COUNT (BEAKER) (test code = 756) 246 K/CU MM 150-45 0 MEAN PLATELET VOLUME (BEAKER) (test code = 754) 8.9 fL 9.4-12.3 NUCLEATED RED BLOOD CELLS (BEAKER) (test code = 0 /100 WBC 0-0 413) NEUTROPHILS RELATIVE PERCENT (BEAKER) (test code 88 % = 429) LYMPHOCYTES RELATIVE PERCENT (BEAKER) (test code 5 % = 430) MONOCYTES RELATIVE PERCENT (BEAKER) (test code = 6 % 431) EOSINOPHILS RELATIVE PERCENT (BEAKER) (test code 0 % = 432) BASOPHILS RELATIVE PERCENT (BEAKER) (test code = 0 % 437) NEUTROPHILS ABSOLUTE COUNT (BEAKER) (test code = 12.85 K/ L 1.56-6.13 670) LYMPHOCYTES ABSOLUTE COUNT (BEAKER) (test code = 0.71 K/ L 1.18-3.74 414) MONOCYTES ABSOLUTE COUNT (BEAKER) (test code = 0.94 K/ L 0 .24-0.36 415) EOSINOPHILS ABSOLUTE COUNT (BEAKER) (test code = 0.00 K/ L 0.04-0.36 416) BASOPHILS ABSOLUTE COUNT (BEAKER) (test code = 0.02 K/ L 0 .01-0.08 417) IMMATURE GRANULOCYTES-RELATIVE PERCENT (BEAKER) 1 % 0-1 (test code = 2801) PROTHROMBIN [id number] 06:21:00 Test Item Value Reference Range Comments PROTIME (BEAKER) (test code = 759) 13.5 seconds 11.7-14.7 INR (BEAKER) (test code = 370) 1.0 <=5.9 RECOMMENDED COUMADIN/WARFARIN INR THERAPY RANGESSTANDARD DOSE: 2.0 - 3.0 Includes: PROPHYLAXIS forvenous thrombosis, systemic embolization; TREATMENT for venous thrombosis and/or pulmonary embolus.HIGH RISK: Target INR is 2.5-3.5 for patients with mechanical heart valves.
--- OUTSIDE RECORDS SUMMARY | 2019-07-03 15:10 | XMS REPORT | Summary of Care ---
:1930 Author Organization [facility] - Health Address [address] [place] [address] Care Team Providers Name Role Phone Linda Spicer RN Unavailable Unavailable Fidencio Pollock Primary Care Provider Encounter Details Date Type Department Care Team Description 04/17/2019 Orders Only [facility] Doctor Unassigned, No [address] [facility] Name [place] [id number] [place] [address] Allergies Active Allergy Reactions Severity Noted Date Comments Adalimumab Shortness of Breath 06/27/2016 Swelling face, feet Meperidine Unknown - See comments 04/10/2019 Mesalamine Hives 06/27/2016 Methotrexate Shortness of Breath 06/27/2016 Abatacept Unknown - See comments 06/27/2016 Promethazine Hallucinations 06/27/2016 Rituximab Unknown - See comments 04/10/2019 Sulfasalazine Other - See comments 06/27/2016 headac he documented as of this encounter (statuses as of 05/15/2019) Medications Medication Sig Dispensed Refills Start Date End Date Status levothyroxine 50 mcg Take 50 mcg by 0 Active tabletIndications: mouth every THYROID morning. Indications: THYROID PARoxetine mesylate 40 Take 40 mg by 0 Active mg tabletIndications: mouth every ANXIETY morning. Indications: ANXIETY predniSONE 5 mg tablet Take 5 mg by 0 Active mouth 2 (two) times daily. albuterol sulfate Inhale 90 mcg. 0 Active (PROAIR RESPICLICK) 90 Indications: mcg/actuation COPD AePBIndications: COPD diclofenac 3 % Apply 1 Dose to 0 Active gelIndications: low back area(s) 2 (two) pain times daily. Indications: low back pain Lidocaine 5 % cream Apply 1 Dose to 0 Active area(s) every 24 (twenty-four) hours as needed (low back pain). atorvastatin 40 mg Take 40 mg by 0 Active tablet mouth at bedtime. cyclobenzaprine 5 mg Take 5 mg by 0 Active tablet mouth at bedtime. docusate 100 mg capsule Take 100 mg by 0 Active mouth daily. famotidine 20 mg tablet Take 20 mg by 0 Active mouth 2 (two) times daily. gabapentin 300 mg Take 300 mg by 0 Active capsule mouth 3 (three) times daily. polyethylene glycol Take 17 g by 0 Active (MIRALAX) 17 gram/dose mouth daily. powder HYDROcodone-acetaminophe Take 1 tablet by 0 Active n (NORCO) 10-325 mg mouth every 6 tablet (six) hours as needed (pain). aspirin 81 mg chewable Take 1 tablet by 90 tablet 3 04/13/2019 Active tabletIndications: TIA mouth daily. (transient ischemic attack) documented as of this encounter (statuses as of 05/15/2019) Active Problems Problem Noted Date AMS (altered mental status) 04/11/2019 Slurred speech 04/10/2019 documented as of this encounter (statuses as of 05/15/2019) Social History Tobacco Use Types Packs/Day Years Used Date Never Assessed Sex Assigned at Date Recorded Not on file Job Start Date Occupation Industry Not on file Not on file Not on file Travel History Travel Start Travel End No recent travel history available. documented as of this encounter Last Filed Vital Signs Not on filedocumented in this encounter Plan of Treatment Health Maintenance Due Date Last Done Comments DTaP,Tdap,and Td Vaccines (1 - Tdap) 1942 Zoster Recombinant Vaccine (SHINGRIX) (1 of 2) 1981 Medicare Wellness Visit 1996 Osteoporosis Screening 1996 PNEUMOCOCCAL VACCINES 65+ (1 of 2 - PCV13) 1996 INFLUENZA VACCINE (#1) 2018 documented as of this encounter Implants Implanted Type Area Neon Sign Erector Device Shelf Model / Identifier Expiration Date Ser ial / Lot [employer] Reveal Linq [id number] Left: Chest / Implanted: 02/02/2016 (Quantity not on file) [id number] / documented as of this encounter Procedures Procedure Name Priority Date/Time Associated Diagnosis Comme nts AUTHORIZATION FOR RELEASE Routine 04/17/2019 12:01 AM OF PHI CANS VACUUM TESTER documented in this encounter Results Not on filedocumented in this encounter Insurance Payer Benefit Plan / Subscriber ID Effective Phone Address T e Group Dates [facility] [id number] 2016-Sara Medic are Adv HEALTHCARE - HEALTHCARE nt HMO MANAGED MEDICARE ADV MEDICARE HMO documented as of this encounter
--- OUTSIDE RECORDS SUMMARY | 2019-07-03 15:10 | XMS REPORT | Summary of Care ---
:1930 Author Organization [facility] Address [address] [place] [id number] Care Team Providers Name Role Phone Linda Spicer RN Unavailable Unavailable Fidencio Pollock Primary Care Provider Reason for Visit Reason Comments RADICULOPATHY (Routine) Status Reason Specialty Diagnoses / Referred By Referred To Procedures Contact Contact Closed Orthopedic Surgery Diagnoses Compression fracture of L1 vertebra, sequela Radiculopathy of leg Ifrah Balderas FNP [facility] [place] Procedures CONSULT/REFERRAL ORTHOPAEDIC SURGERY 0 Bruce Castro MD [address] [address] [place] [address] Phone: Rony Zamora [phone] Fax: Encounter Details Date Type Department Care Team Description 06/18/2019 [facility] ENCOUNTER--DISREGAR [address] (Primary Dx) Primary Care [facility] [address] [address] [place] [address], [address] [address] [place] [address] Allergies Active Allergy Reactions Severity Noted Date Comments Adalimumab Shortness of Breath 06/27/2016 Swelling face, feet Meperidine Unknown - See comments 04/10/2019 Mesalamine Hives 06/27/2016 Methotrexate Shortness of Breath 06/27/2016 Abatacept Unknown - See comments 06/27/2016 Promethazine Hallucinations 06/27/2016 Rituximab Unknown - See comments 04/10/2019 Sulfasalazine Other - See comments 06/27/2016 headac he documented as of this encounter (statuses as of 06/18/2019) Medications Medication Sig Dispensed Refills Start Date [...] as of this encounter (statuses as of 06/18/2019) Active Problems Problem Noted Date AMS (altered mental status) 04/11/2019 Slurred speech 04/10/2019 documented as of this encounter (statuses as of 06/18/2019) Social History Tobacco Use Types Packs/Day Years Used Date Never Assessed Sex Assigned at Date Recorded Not on file Job Start Date Occupation Industry Not on file Not on file Not on file Travel History Travel Start Travel End No recent travel history available. documented as of this encounter Last Filed Vital Signs Not on filedocumented in this encounter Progress Notes Faith Iniguez MD - 06/18/2019 10:00 AM CDT TELEHEALTH NOTE Verbal consent obtained from Care Provider: son, Josef Jenkins due to the COVID-19 pandemic for telehealth services provided below. Communication with patient's son was conducted via Telephone. Location of Patient: Home Location of Provider: Clinic Date of Service: 06/18/2019 LVM with patient's son, Josef Jenkins at 10:06AM with clinic callback number ([phone]) provided. Called back at 10:19AM, patient's son wishes to reschedule appointment to time where patient can have a physical appointment and can have surgery, as this is a second opinion appointment and surgeries are currently being delayed. Patient's son specifically declined telemedicine appointment, when I asked. History below gathered primarily from [facility] chart review. Chief Complaint: right buttocks/hip/RLE pain HPI: Elva Jenkins is a 89 year old female with PMHx of Past Medical History: Diagnosis Date Cataract, bilateral History of appendectomy 1952 History of cholecystectomy 1983 History of hysterectomy 1976 with c/o right buttocks/hip/RLE pain. Patient's pain began after lifting a plant in early January 2019. Her pain is severe in quality, limiting her ability to perform her daily activities. Patient hadXR and eventually MRI performed due to her symptoms, with concern for L3 compression fracture and multilevel lumbar spinal stenosis especially at L3/L4. Has had prior R-sided neuroforaminal steroid injection at L3-L4 and L4-L5 on 04/20/[address] Barajas, with reported continued pain. Of note, was supposed to have a kyphoplasty by an outside neurosurgeon, but this treatment was not performed due to patient developing an infection of unknown location requiring IV antibiotics. Eventually ended up getting a kyphoplasty of L3 with an outside physician (Dr. Westbrook, [facility] [place]) on 05/02/2019 with worsening in her pain. Has not yet obtained DEXA scan. MEDICATIONS: [place], Gabapentin, Flexeril, Prednisone Radiology: Outside MRI L Spine 03/05/2019: (in PACS, comes up as 03/05/2019; reviewed by [facility] Radiology on 04/19/2019) Impression: 1. Bone marrow edema noted with remodeling of the inferior endplate of L3 level. Questionable minimal bone marrow edema is also noted along the superior endplate of L4 and L5. 2. Severe canal stenosis is noted at the L3-4 level with cauda equina compression and severe bilateral neuroforaminal narrowing. 3. At L4-5, there is asymmetric moderate canal stenosis severe left lateral recess narrowing and moderate left foraminal narrowing. 4. There is severe right and moderate left foraminal narrowing at L2-3. 5. Also, there is severe bilateral foraminal narrowing at L1-2. 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 Crane, this patient will require surgical intervention for her condition. Fermin's son declined telemedicine visit at this time, we will await to develop specific surgical plan until they wish to schedule an appointment. If coming in for physical visit, will need WHOLE SPINE STANDING XRs. Faith Iniguez MD documented in this encounter Plan of Treatment Health Maintenance Due Date Last Done Comments DTaP,Tdap,and Td Vaccines (1 - Tdap) 1942 Zoster Recombinant Vaccine (SHINGRIX) (1 of 2) 1981 Medicare Wellness Visit 1996 Osteoporosis Screening 1996 PNEUMOCOCCAL VACCINES 65+ (1 of 2 - PCV13) 1996 INFLUENZA VACCINE (#1) 2018 documented as of this encounter Implants Implanted Type Area Diamond Selector Device Shelf Model / Identifier Expiration Date Ser ial / Lot Medtronic Reveal Linq [id number] Left: Chest / Implanted: 02/02/2016 (Quantity not on file) [id number] / documented as of this encounter Results Not on filedocumented in this encounter Visit Diagnoses Diagnosis ERRONEOUS ENCOUNTER--DISREGARD - Primary documented in this encounter Insurance Payer Benefit Plan / Subscriber ID Effective Phone Address T e Group Dates [facility] [id number] 2016-Prese Medic are Adv CoverMyMeds [facility] MEDICARE O documented as of this encounter
[2019-07-03 15:43] LABS: Absolute Lymphocytes (CBC) 2.6 K/uL (0.7-4.9); Basophils % 0.3 % (0-1.3); Hematocrit 33.5 % (36.0-45.0); Lymphocytes % 43.8 % (15.3-44.8); MPV 7.2 fL (7.6-11.3); RBC Red Blood Cell Count 3.51 M/uL (3.86-4.86)
[2019-07-03 15:44] LABS: Protime INR 0.94
[2019-07-03 15:59] LABS: ALT/SGPT 33 U/L (12-78); AST/SGOT 27 U/L (15-37); Albumin 2.6 g/dL (3.4-5.0); Alkaline Phosphatase 64 U/L (45-117); BUN Blood Urea Nitrogen 16 mg/dL (7-18); Bicarbonate 29 mmol/L (21-32); Bilirubin Direct 0.2 mg/dL (0-0.2); Glucose Level 94 mg/dL (74-106); Magnesium 2.1 mg/dL (1.8-2.4); NT PRO-BNP 457 pg/mL (<450); Potassium 4.4 mmol/L (3.5-5.1); Protein, Total 5.9 g/dL (6.4-8.2); Sodium Level 137 mmol/L (136-145); Troponin (Emerg Dept Use Only) < 0.02 ng/mL (0.0-0.045)
[2019-07-03 16:09] LABS: Bilirubin Total 0.4 mg/dL (0.2-1.0)
[2019-07-03 16:14] LABS: Urine Appearance CLEAR; Urine Bilirubin NEGATIVE (NEG); Urine Blood NEGATIVE (NEG); Urine Color YELLOW; Urine Glucose NEGATIVE (NEG); Urine Protein NEGATIVE (NEG); Urine Urobilinogen 0.2 mg/dL (0.2-1.0)
[2019-07-03 16:26] LABS: Urine Microscopic Reflex ORDER UMIC
[2019-07-03 16:32] LABS: Urine Bacteria <20 /HPF (<20); Urine Culture Reflex Order REFLEXED; Urine RBC <5 /HPF (NONE SEEN)
--- NOTE | 2019-07-03 16:32 | RAD REPORT ---
EXAM DESCRIPTION: RAD - Chest Single View - 07/03/2019 4:25 pm CLINICAL HISTORY: SOB Chest pain. COMPARISON: Chest Single View dated 04/01/2019; Chest Single View dated 04/01/2019; Chest Single View dated 03/31/2019; Chest Single View dated 03/28/2019 FINDINGS: Portable technique limits examination quality. The lungs are grossly clear. The heart is normal in size. No displaced fractures. IMPRESSION: No acute intrathoracic process suspected.
[2019-07-03] MEDS ORDERED: FUROSEMIDE 20 MG/ 2ML VIAL ONE (17:43)
[2019-07-03] MEDS ORDERED: MORPHINE 2 MG/ML SYR ONE ×2 (17:43→19:51)
--- NOTE | 2019-07-03 18:34 | RAD REPORT ---
EXAM DESCRIPTION: RAD - Pelvis - 07/03/2019 5:41 pm CLINICAL HISTORY: fall Fall, right hip pain COMPARISON: Pelvis dated 02/07/2019; Hip Right 2 View dated 07/03/2019 FINDINGS: Mild arthritic changes are present. The bones are quite demineralized. No acute fracture, dislocation or AVN.
--- NOTE | 2019-07-03 18:36 | RAD REPORT ---
EXAM DESCRIPTION: RAD - Hip Right 2 View - 07/03/2019 5:42 pm CLINICAL HISTORY: PAIN COMPARISON: Hip Right 2 View dated 03/03/2019 FINDINGS: The bones are demineralized. Mild arthritic changes are present. No fracture, dislocation or AVN.
--- NOTE | 2019-07-03 19:26 | RAD REPORT ---
EXAM DESCRIPTION: US - Extrem Venous W Compress Jacob - 07/03/2019 7:18 pm CLINICAL HISTORY: Pain;Swelling Bilateral leg edema and swelling. COMPARISON: Extremity Venous Uni Ltd dated 03/28/2019 TECHNIQUE: Real-time sonographic interrogation of the left and right lower extremity deep venous sys tems was performed. FINDINGS: No evidence of right lower extremity DVT. Small amount of thrombus is again seen in the le ft popliteal vein with partial compressibility, unchanged since comparative study. IMPRESSION: Small amount of unchanged thrombus in the left popliteal vein. No new or progressive DVT evident.
--- NOTE | 2019-07-03 19:38 | ER ---
Nurse's Notes [facility] Name: Elva Jenkins Age: 89 yrs Sex: Female : 1930 Arrival Date: 07/03/2019 Time: 15:08 Bed 20 Private MD: Diagnosis: Influenza due to other identified influenza virus with other respiratory manifestations;Shortness of breath;Acute on chronic combined systolic (congestive) and diastolic (congestive) heart failure Presentation: 07/02 15:15 Chief complaint: EMS states: shortness of breath due to being out of lasix and increased swelling and pain in BLE. Per EMS 97.9, 93% RA. Coronavirus screen: Surgical mask placed on patient. Patient moved to private room, placed in contact and droplet isolation with eye protection until further assessment. Patient denies a cough. Patient reports shortness of breath or difficulty breathing. Patient denies measured and/or subjective temperature greater than 100.4F prior to today's visit. Patient denies travel on a cruise ship or to a country the [facility] currently lists as an affected area. Patient denies contact with known and/or suspected case of COVID-19. Ebola Screen: No symptoms or risks identified at this time. Initial Sepsis Screen: Does the patient meet any 2 criteria? No. Patient's initial sepsis screen is negative. Does the patient have a suspected source of infection? No. Patient's initial sepsis screen is negative. Risk Assessment: Do you want to hurt yourself or someone else? Patient reports no desire to harm self or others. Onset of symptoms is unknown. 15:15 Method Of Arrival: EMS: [facility] 15:15 Acuity: TAVON 3 ah Historical: - Allergies: 18:14 Asacol; 18:14 Humira; 18:14 Methotrexate; ah 18:14 Orencia; 18:14 Phenergan; 18:14 Sulfazine; 18:14 Aspirin; - PMHx: 18:14 Arthritis; COPD; Depression; GERD; Hyperlipidemia; Hypothyroidism; - PSHx: 18:14 Hysterectomy; ah - Immunization history:: Adult Immunizations up to date, Flu vaccine is up to date. - Social history:: Smoking status: Patient denies any tobacco usage or history of. Screenin:16 Abuse screen: Denies threats or abuse. Nutritional screening: No deficits noted. Tuberculosis screening: No symptoms or risk factors identified. Fall Risk Fall in past 12 months (25 points). Secondary diagnosis (15 points) IV access (20 points). Ambulatory Aid- Gait- Weak (10 pts.). Mental Status- Oriented to own ability (0 pts). Total Hutchinson Fall Scale indicates High Risk Score (45 or more points). Assessment: 15:15 General: Appears uncomfortable, Behavior is calm, cooperative. Pain: Complains of pain ah in right hip. Neuro: Level of Consciousness is awake, alert, Oriented to person, place, time. Cardiovascular: Denies chest pain, Heart tones S1 S2 present Capillary refill < 3 seconds Patient's skin is warm and dry. Cardiovascular: Edema is 3+ to left ankle, left foot, left toes, right ankle, right foot and right toes. Respiratory: Reports shortness of breath on exertion Airway is patent Respiratory effort is even, unlabored, Respiratory pattern is regular, symmetrical, Breath sounds with wheezes. GI: No signs and/or symptoms were reported involving the gastrointestinal system. Bowel sounds present X 4 quads. Patient currently denies diarrhea. : No signs and/or symptoms were reported regarding the genitourinary system. Urine is clear. EENT: No signs and/or symptoms were reported regarding the EENT system. Derm: No signs and/or symptoms reported regarding the dermatologic system. Derm: Skin is red, Skin temperature is warm to BLE. Musculoskeletal:. 15:15 Derm: Bruising that is dark purple, on left knee and left wrist and hand. 15:59 Reassessment: Point of Contact (Son) Josef- . PT's primary care doctor is alessia Pollock. 16:50 Reassessment: Pt up to bedside commode. urine collected at this time. Pt became SOB ah while getting back in bed. O2 placed via NC on 2LPM. Pt assisted back in bed and made comfortable. 17:15 Reassessment: Perla DUNAWAY in room to insert IV, give meds, and personal care. 18:26 Reassessment: Dr Pollock in room to see patient at this time. 19:20 Reassessment: Diaper changed and bed changed. Pt repositioned for comfort. Temp checked ah at this time 98.0 oral. No other needs voiced at this time. 19:46 Reassessment: Notified Provider of patient complaint of hip pain; Verbal order from lp1 Provider for Morphine 2 mg IV now and repeat dose if needed. 20:25 Reassessment: Pain medication and Tamiflu started at this time. Pt assisted with bedpan. Pt tolerated well. Repositioned and awaiting bed assignment. Vital Signs: 15:15 BP 158 / 79; Pulse 94; Resp 23; Temp 98.6; Pulse Ox 95% ; Height 4 ft. 11 in. (149.86 cm); Pain 8/10; 15:30 BP 101 / 70; Pulse 89; Resp 24; Pulse Ox 97% ; ah 16:30 BP 185 / 98; Pulse 96; Resp 22; Pulse Ox 99% ; ah 18:00 BP 153 / 87; Pulse 98; Resp 27; Pulse Ox 98% ; ah 19:30 BP 165 / 97; Pulse 99; Resp 25; Pulse Ox 98% ; 20:30 BP 112 / 60; Pulse 97; Resp 23; Pulse Ox 100% ; 21:28 BP 147 / 79; Pulse 99; Resp 23; Temp 98.0; Pulse Ox 98% ; ah ED Course: 15:08 Patient arrived in ED. em1 15:15 Tommy Grimes PA is PHCP. cp 15:15 Bismark Adams MD is Attending Physician. cp 15:30 Arm band placed on right wrist. 15:52 Ashley Ward, RN is Primary Nurse. ah 16:26 XRAY Chest (1 view) In Process Unspecified. EDMS 17:42 XRAY Pelvis In Process Unspecified. EDMS 17:42 XRAY Hip RIGHT 2 view In Process Unspecified. EDMS 18:00 Accessed peripheral vein via ultrasound, utilizing dynamic ultrasound technique 20 ss gauge 10 cm POWERGLIDE inserted with sterile technique. Pt tolerated well. Aseptic technique performed. 19:18 US Extremity Venous W Compression Jacob In Process Unspecified. EDMS 19:37 Hasmukh Pollock MD is Hospitalizing Provider. cp 21:30 Triage completed. ah 21:31 No provider procedures requiring assistance completed. Patient admitted, IV remains in place. Administered Medications: 18:12 Drug: morphine 2 mg Route: IVP; Site: left upper arm; ss 18:17 Drug: Lasix 20 mg Route: IVP; Site: left upper arm; ss 22:05 Follow up: Response: No adverse reaction ah 18:30 Drug: morphine 2 mg Route: IVP; Site: left antecubital; ah 22:34 Follow up: Response: No adverse reaction ah 20:40 Drug: Tamiflu 75 mg Route: PO; ah 22:04 Follow up: Response: No adverse reaction ah 20:40 Drug: morphine 2 mg Route: IVP; Site: right antecubital; ah 22:04 Follow up: Response: No adverse reaction; RASS: Alert and Calm (0) 22:05 Follow up: Response: No adverse reaction Outcome: 19:38 Decision to Hospitalize by Provider. cp 22:09 Patient left the ED. vc Signatures: Dispatcher [employer] Delvin eHrnandez em1 Perla Varela RN RN ss Radha Mireles, RN RN lp1 Tommy Grimes PA PA cp Keiko Morgan RN RN vc Harris, Amy, RN RN
--- NOTE | 2019-07-03 19:39 | EDPHYS ---
Physician Documentation [facility] Name: Elva Jenikns Age: 89 yrs Sex: Female : 1930 Arrival Date: 07/03/2019 Time: 15:08 Bed 20 Private MD: ED Physician Bismark Adams HPI: 07/02 15:30 This 89 yrs old Female presents to ER via Unassigned with complaints of cp shortness of breath. 15:30 The patient has shortness of breath at rest. Onset: The symptoms/episode began/occurred cp gradually. Duration: The symptoms are continuous, and are steadily getting worse. 15:30 Associated signs and symptoms: Pertinent negatives: chest pain, productive cough, cp vomiting. 15:30 retirement reports patient had temperature of 100 today. cp Historical: - Allergies: 18:14 Asacol; ah 18:14 Humira; ah 18:14 Methotrexate; ah 18:14 Orencia; ah 18:14 Phenergan; ah 18:14 Sulfazine; ah 18:14 Aspirin; ah - PMHx: 18:14 Arthritis; COPD; Depression; GERD; Hyperlipidemia; Hypothyroidism; ah - PSHx: 18:14 Hysterectomy; ah - Immunization history:: Adult Immunizations up to date, Flu vaccine is up to date. - Social history:: Smoking status: Patient denies any tobacco usage or history of. ROS: 15:35 Constitutional: Negative for body aches, chills, fever, poor PO intake. cp 15:35 Eyes: Negative for injury, pain, redness, and discharge. cp 15:35 ENT: Negative for drainage from ear(s), ear pain, sore throat, difficulty swallowing, difficulty handling secretions. 15:35 Cardiovascular: Positive for edema, Negative for chest pain. 15:35 Respiratory: Positive for shortness of breath, Negative for cough, wheezing. 15:35 Abdomen/GI: Negative for abdominal pain, nausea, vomiting, and diarrhea. 15:35 Neuro: Negative for altered mental status, headache, weakness. 15:35 All other systems are negative. Exam: 15:30 ECG was reviewed by the Attending Physician. cp 15:40 Constitutional: The patient appears in no acute distress, alert, awake, cp non-diaphoretic, non-toxic, well developed, well nourished. 15:40 Head/Face: Normocephalic, atraumatic. cp 15:40 Eyes: Periorbital structures: appear normal, Conjunctiva: normal, no exudate, no injection, Sclera: no appreciated abnormality, Lids and lashes: appear normal, bilaterally. 15:40 ENT: External ear(s): are unremarkable, Nose: is normal, Mouth: is normal, Posterior pharynx: is normal, airway is patent, no erythema, no exudate. 15:40 Neck: ROM/movement: is normal, is supple, without pain, no range of motions limitations, no meningismus. 15:40 Chest/axilla: Inspection: normal, Palpation: is normal, no crepitus, no tenderness. 15:40 Cardiovascular: Rate: normal, Rhythm: regular, Edema: 3+ edema to level of left midcalf, left ankle, left foot, right midcalf, right ankle and right foot, pedal edema, that is moderate, JVD: is not appreciated. 15:40 Respiratory: the patient does not display signs of respiratory distress, Respirations: labored breathing, is not present, intercostal retractions, are absent, Breath sounds: decreased breath sounds, that are mild, throughout, stridor, is not appreciated, wheezing: is not appreciated. 15:40 Abdomen/GI: Inspection: abdomen appears normal, Bowel sounds: active, all quadrants, Palpation: abdomen is soft and non-tender, in all quadrants, involuntary guarding, is not appreciated. 15:40 Back: pain, is absent, ROM is normal. 15:40 Musculoskeletal/extremity: Joints: All joints are normal except the right hip displays pain at rest. 15:40 Skin: cellulitis, is not appreciated. 15:40 Neuro: Orientation: to person, place \T\ time. Mentation: is normal, Motor: moves all fours, strength is normal. Vital Signs: 15:15 BP 158 / 79; Pulse 94; Resp 23; Temp 98.6; Pulse Ox 95% ; Height 4 ft. 11 in. (149.86 ah cm); Pain 8/10; 15:30 BP 101 / 70; Pulse 89; Resp 24; Pulse Ox 97% ; ah 16:30 BP 185 / 98; Pulse 96; Resp 22; Pulse Ox 99% ; ah 18:00 BP 153 / 87; Pulse 98; Resp 27; Pulse Ox 98% ; ah 19:30 BP 165 / 97; Pulse 99; Resp 25; Pulse Ox 98% ; ah 20:30 BP 112 / 60; Pulse 97; Resp 23; Pulse Ox 100% ; ah 21:28 BP 147 / 79; Pulse 99; Resp 23; Temp 98.0; Pulse Ox 98% ; ah MDM: 15:24 Patient medically screened. cp 16:00 Differential diagnosis: Bronchitis CHF exacerbation, pneumonia, influenza, COVID-19. cp 19:36 Data reviewed: vital signs, nurses notes, lab test result(s), EKG, radiologic studies, cp plain films, ultrasound. Physician consultation: Hasmukh Pollock MD was called at 19:36, was contacted at 19:36, regarding admission, to the telemetry unit. patient's condition. 07/02 15:26 Order name: COVID-19 cp 07/02 15:26 Order name: Basic Metabolic Panel; Complete Time: 16:32 cp 07/02 17:45 Interpretation: Normal except: GFR 64. cp 07/02 15:26 Order name: CBC with Diff; Complete Time: 15:57 cp 07/02 15:57 Interpretation: Normal except: RBC 3.51; HGB 11.2; HCT 33.5; MPV 7.2. cp 07/02 15:26 Order name: LFT's; Complete Time: 16:32 cp 07/02 15:26 Order name: Magnesium; Complete Time: 16:32 cp 07/02 15:26 Order name: NT PRO-BNP; Complete Time: 16:32 cp 07/02 15:26 Order name: PT-INR; Complete Time: 15:57 cp 07/02 15:26 Order name: Troponin (emerg Dept Use Only); Complete Time: 16:32 cp 07/02 15:26 Order name: Influenza Screen (a \T\ B); Complete Time: 19:33 cp 07/02 19:33 Interpretation: Reviewed. cp 07/02 15:51 Order name: UA; Complete Time: 16:33 em1 07/02 16:32 Interpretation: Normal except: UESTR TRACE. cp 07/02 16:31 Order name: Urine Microscopic Only; Complete Time: 16:33 EDMS 07/02 16:33 Interpretation: Normal except: UWBC 5-10. cp 07/02 16:34 Order name: Urine Culture EDMS 07/02 17:48 Order name: Strep; Complete Time: 19:33 cp 07/02 18:52 Order name: Throat Culture EDAL 07/02 15:26 Order name: XRAY Chest (1 view); Complete Time: 17:22 cp 07/02 15:26 Order name: US Extremity Venous W Compression Jacob; Complete Time: 19:33 cp 07/02 17:02 Order name: XRAY Pelvis; Complete Time: 19:33 cp 07/02 17:02 Order name: XRAY Hip RIGHT 2 view; Complete Time: 19:33 cp 07/02 20:10 Order name: Basic Metabolic Panel EDAL 07/02 20:10 Order name: Basic Metabolic Panel EDAL 07/02 20:10 Order name: CBC with Automated Diff EDAL 07/02 20:10 Order name: CBC with Automated Diff EDAL 07/02 20:10 Order name: Lipid Profile EDAL 07/02 20:10 Order name: Lipid Profile [facility] 07/02 20:10 Order name: Troponin I EDAL 07/02 20:10 Order name: Troponin I [facility] 07/02 20:10 Order name: Troponin I EDAL 07/02 15:26 Order name: EKG; Complete Time: 15:28 cp 07/02 15:26 Order name: Cardiac monitoring; Complete Time: 15:53 cp 07/02 15:26 Order name: EKG - Nurse/Tech; Complete Time: 15:53 cp 07/02 15:26 Order name: IV Saline Lock; Complete Time: 15:53 cp 07/02 15:26 Order name: Labs collected and sent; Complete Time: 15:53 cp 07/02 15:26 Order name: O2 Per Protocol; Complete Time: 15:53 cp 07/02 15:26 Order name: O2 Sat Monitoring; Complete Time: 15:53 cp 07/02 16:33 Order name: Vital Signs; Complete Time: 18:11 cp 07/02 20:10 Order name: Respiratory Therapy Consult EDAL 07/02 20:10 Order name: Low Sodium EDAL EC:30 Rate is 91 beats/min. Rhythm is regular. NM interval is normal. QRS interval is normal. cp QT interval is normal. T waves are Flattened in lead aVL. Interpreted by me. Reviewed by me. Administered Medications: 18:12 Drug: morphine 2 mg Route: IVP; Site: left upper arm; ss 18:17 Drug: Lasix 20 mg Route: IVP; Site: left upper arm; ss 22:05 Follow up: Response: No adverse reaction ah 18:30 Drug: morphine 2 mg Route: IVP; Site: left antecubital; ah 22:34 Follow up: Response: No adverse reaction ah 20:40 Drug: Tamiflu 75 mg Route: PO; ah 22:04 Follow up: Response: No adverse reaction ah 20:40 Drug: morphine 2 mg Route: IVP; Site: right antecubital; ah 22:04 Follow up: Response: No adverse reaction; RASS: Alert and Calm (0) ah 22:05 Follow up: Response: No adverse reaction ah Disposition: 07/03 12:00 Co-signature as Attending Physician, Bismark Adams MD I agree with the assessment and kdr plan of care. Disposition: 07/03/19 19:38 Hospitalization ordered by Hasmukh Pollock for Inpatient Admission. Preliminary diagnosis are Influenza due to other identified influenza virus with other respiratory manifestations, Shortness of breath, Acute on chronic combined systolic (congestive) and diastolic (congestive) heart failure. - Bed requested for Telemetry/MedSurg (Inpatient). - Status is Inpatient Admission. vc - Condition is Fair. - Problem is new. - Symptoms have improved. Signatures: Dispatcher [employer] EDMS Bismark Adams MD MD [facility] Perla Varela RN RN Radha Mireles RN RN lp1 Meagan Valdez RN RN tl1 Tommy Grimes PA PA cp Keiko Morgan RN RN Ashley Ward RN RN Corrections: (The following items were deleted from the chart) 07/02 20:29 19:38 Hospitalization Ordered by Hasmukh Pollock MD for Inpatient Admission. Preliminary tl1 diagnosis is Influenza due to other identified influenza virus with other respiratory manifestations; Shortness of breath; Acute on chronic combined systolic (congestive) and diastolic (congestive) heart failure. Bed requested for Telemetry/MedSurg (Inpatient). Status is Inpatient Admission. Condition is Fair. Problem is new. Symptoms have improved. cp 22:09 20:29 07/03/2019 19:38 Hospitalization Ordered by Hasmukh Pollock MD for Inpatient vc Admission. Preliminary diagnosis is Influenza due to other identified influenza virus with other respiratory manifestations; Shortness of breath; Acute on chronic combined systolic (congestive) and diastolic (congestive) heart failure. Bed requested for Telemetry/MedSurg (Inpatient). Status is Inpatient Admission. Condition is Fair. Problem is new. Symptoms have improved. tl1
[2019-07-03] MEDS ORDERED: OSELTAMIVIR 75 MG CAP ONE (19:50)
[2019-07-03] MEDS ORDERED: ONDANSETRON 4 MG/2 ML VIAL IV PRN (20:00)
[2019-07-03] MEDS ORDERED: IPRATROPIUM BROM 0.5MG/2.5ML NEB PRN (20:00)
[2019-07-03] MEDS ORDERED: ALBUTEROL 2.5 MG/3 ML NEB SOL NEB PRN (20:00)
[2019-07-03] MEDS ORDERED: FAMOTIDINE 20 MG/2 ML VIAL IV SCH (21:00)
[2019-07-03] MEDS ORDERED: CEFTRIAXONE 1 GM/NS 50 ML 1 GM/50 ML BAG IV SCH (22:00)
[2019-07-03] MEDS ORDERED: CEFTRIAXONE/SWI 1gm 1 GM/10 ML SYR ONE (22:50)
[2019-07-03] MEDS ORDERED: HYDROCODONE/APAP 10/325 TAB PO ONE (23:56)
[2019-07-04] MEDS: ENOXAPARIN 40 MG/0.4 ML SQ SCH ×2 (00:04→21:24)
[2019-07-04 04:34] LABS: Absolute Lymphocytes (CBC) 2.1 K/uL (0.7-4.9); Basophils % 0.4 % (0-1.3); Hematocrit 30.3 % (36.0-45.0); Lymphocytes % 36.9 % (15.3-44.8); MPV 7.1 fL (7.6-11.3); RBC Red Blood Cell Count 3.16 M/uL (3.86-4.86)
[2019-07-04 04:49] LABS: Potassium 3.8 mmol/L (3.5-5.1)
[2019-07-04] MEDS ORDERED: MAGNESIUM HYDROXIDE 8% 30 ML PO PRN (05:31)
[2019-07-04] MEDS: LEVOTHYROXINE SOD 0.05 MG TABLET PO SCH (06:05)
--- NOTE | 2019-07-04 07:51 | HP ---
Date of Admission: 07/03/2019 Chief Complaint: Fever, leg swelling, feeling weak. History Of Present Illness: This is an 89-year-old pleasant female patient who lives at [facility] , was asked to come to emergency room today as home health nurse called my office and reported that t he patient was having a fever of 100 degrees Fahrenheit. She was feeling very weak and has been in b ed for the last few days and has lot of leg swelling. She was evaluated in the ER. She was admitted to the hospital. I did visit her in the emergency room. She denies any cough or shortness of breat h. Denies any vomiting or diarrhea. She reports that she ran out of her Lasix and she manages her o wn medication. Her son lives in [facility], who has not been able to visit her lately because of pa ndemic and restriction on visitors at the facility where she lives. Medications: List reviewed. Review of Systems: Constitutional: As mentioned above. Cardiovascular: As mentioned above. All other systems reviewed and negative. Allergies: SULFA CAUSING HEADACHE, RITUXIMAB CAUSING LEG SWELLING, PROMETHAZINE CAUSING HALLUCINATIO N AND ARM JERKING, METHOTREXATE CAUSING DYSPNEA, MESALAMINE CAUSING SORE THROAT AND HIVES, ADALIMUMAB CAUSING FACE SWELLING, AND ABATACEPT CAUSING JOINT PAIN. Past Surgical History: Hysterectomy, appendectomy, cholecystectomy, cataract surgery, removal of carly ign rectal mass on August 02, 2017 in [place]. Family History: Sister with hypertension and stroke. Parents of old age at 99 and 95 years. Social History: Negative for smoking and alcohol use. Past Medical History: Lymphedema of legs, hypertension, hypothyroidism, COPD, chronic steroid therap y, rheumatoid arthritis, chronic leg swelling, hemorrhoids, Clostridium difficile colitis, DVT of leg and pulmonary embolism diagnosed in August 2017, and compression fracture of spine, for which, she is waiting for kyphoplasty type of procedure and is under care of neurosurgeon, Dr. Westbrook. Physical Examination: Vital Signs: Temperature 98.6, pulse 94, respiratory rate 23, oxygen saturation 95%, blood pressure 158/79, height 4 feet 11 inches, weight 119 pounds. General: Awake, alert, oriented, not in distress. HEENT: Head atraumatic, normocephalic. Conjunctivae nonerythematous. Sclerae white. Mouth, no thr ush or edema noted. Ears/Nose, no mass, lesion, discharge noted. Neck: Supple. No JVD, lymph nodes, bruit, thyromegaly noted. Lungs: Bilateral good equal air entry. Clear to auscultation. No rhonchi. No rales. Heart: Normal heart sounds, no murmur or gallop. Abdomen: Soft, bowel sounds normal. No guarding, rigidity, tenderness, mass, hepatosplenomegaly, dis tention, or bruit noted. Skin: No rash, ulcer, cellulitis. Lymphatics: No lymph node enlargement in neck, supraclavicular, infraclavicular region. Neuro: No focal neurological deficit. Chest: Unremarkable. External Genitalia: Deferred. Rectal: Deferred. Extremities: Patient has grade 3 bilateral pedal edema. Skin over the lower one-fourth leg and bila teral dorsum feet is pink, warm, tender to touch. There is no open wound. Laboratory Data: White count 6, hemoglobin 11.2, platelets 226. Sodium 137, potassium 4.4, chloride 103, bicarb 29, BUN 16, creatinine 0.84, glucose 94. Liver function tests unremarkable. Urinalysis negative. Chest x-ray, no acute cardiopulmonary changes. Venous Doppler of lower extremity shows evidence of o ld blood clot in the left popliteal vein. No new or progressive clot. Influenza A and B test is pos itive. Impression: 1.Cellulitis, bilateral legs. 2.Influenza A and B. 3.Rule out coronavirus disease 2019. 4.Lymphedema, legs. 5.Chronic steroid therapy. 6.Chronic obstructive pulmonary disease. 7.Hypertension. 8.Hypothyroidism. 9.Rheumatoid arthritis. 10.History of deep vein thrombosis of legs, old. Plan: Admit patient to hospital for further evaluation and management of this problem. Patient is a ppropriate for inpatient and is expected to spend 2 midnights in the hospital. Home medications will be continued per order. We will go ahead and start IV antibiotic, which is ceftriaxone per order. Tamiflu will be started for influenza. Keep the patient in isolation until we rule out COVID-19 and appropriate test was collected and sent from emergency room. DVT prophylaxis will be given using Janie enox and I did call the patient's son and talked to him on the phone in detail. We also discussed ad hassan directives and DNR order will be written in the chart per patient's decision. The patient's so n has raised concerns about the patient may not be taking her medications correctly and she manages h er own medication as she lives in an independent part of [facility] facility and I gave my recommen dation either for patient to move into assisted care part of [facility] facility or move into [facility] home as she will need medication management to be done by nursing staff as she is not able to bakari ge her own medications and that is definitely a concern if she is taking too much or she is not takin g as prescribed and son has concern that she ran out of her medications for few to several days and t his will create some significant health problems at some point if she does not get her medication man aged correctly, so all those details were discussed with the patient's son and he will communicate wi th [facility] staff regarding trying to move her into assisted care part of that facility. ARNOL/MODL Voice ID: [id number]
[2019-07-04] MEDS: DOCUSATE NA 100 MG CAP PO SCH (08:00)
[2019-07-04] MEDS: predniSONE 5 MG TAB PO SCH (08:00)
[2019-07-04] MEDS: GABAPENTIN 100 MG CAP PO SCH ×3 (08:00→21:24)
[2019-07-04] MEDS: ASPIRIN EC 81 MG TAB PO SCH (08:00)
[2019-07-04] MEDS: FUROSEMIDE 20 MG/ 2ML VIAL IV SCH ×2 (08:00→18:06)
[2019-07-04] MEDS: ATORVASTATIN 40 MG TAB PO SCH (08:01)
[2019-07-04] MEDS: PARoxetine HCL 10 MG TAB PO SCH (08:01)
[2019-07-04] MEDS: CEFTRIAXONE/SWI 1gm 1 GM/10 ML SYR IV SCH ×2 (08:01→21:59)
[2019-07-04] MEDS: OSELTAMIVIR PHOSPHATE 30 MG/5 ML SUSPENSION UD PO SCH ×2 (08:01→21:24)
[2019-07-04] MEDS: HYDROCODONE/APAP 10/325 TAB PO SCH ×3 (08:02→21:25)
[2019-07-04] MEDS: HOME MED 1 EA UNK (Fluticasone/Umeclidin/Vilanter [Trelegy Ellipta 100-62.5-25] 1 PUFF) IH SCH (08:03)
[2019-07-04] MEDS ORDERED: OSELTAMIVIR 75 MG CAP PO SCH (09:00)
--- NOTE | 2019-07-04 18:33 | EKG ---
Test Date: 2019-07-03 Test Time: 15:22:47 [place] Laborer: Neri Ward MEASUREMENT RESULTS: Intervals: Rate: 91 MA: 140 QRSD: 72 QT: 364 QTc: 447 [place]: P: 73 MA: 140 QRS: 7 T: 61 INTERPRETIVE STATEMENTS: Sinus rhythm with occasional ventricular-paced complexes Possible Left atrial enlargement Cannot rule out Anterior infarct, age undetermined Abnormal ECG Compared to ECG 03/28/2019 17:50:51 Myocardial infarct finding now present Sinus arrhythmia no longer present Electronically Signed On 07-04-19 18:31:23 CDT by Kel Ro
[2019-07-04] MEDS ORDERED: FAMOTIDINE 20 MG TAB PO SCH (21:00)
[2019-07-04] MEDS ORDERED: CYCLOBENZAPRINE 10 MG TAB PO SCH (21:00)
[2019-07-04] MEDS ORDERED: FAMOTIDINE 20 MG/2 ML VIAL IV SCH (21:00)
--- NOTE | 2019-07-04 23:21 | PN ---
Date of Progress Note: 07/04/2019 Subjective: Patient was seen this morning for followup. No new complaints or problems reported by h er overnight. She was sleeping easily, arousable not in distress. Objective: Vital Signs: Reviewed. HEENT: Unremarkable. Lungs: Clear to auscultation. Cardiac: Heart sounds normal. Abdomen: Soft bowel sounds normal. No guarding, rigidity, tenderness, or distention. Extremities: Leg edema present, but slightly better today than yesterday and from both lower leg and feet is better today than yesterday. Laboratory Data: White count 5.6, hemoglobin 10.2, platelets 190. Sodium 140, potassium 3.8, chlori de 102, bicarb 35, BUN 12, creatinine 0.69, glucose 94. Impression: 1.Influenza A and B. 2.Cellulitis, bilateral legs. 3.Lymphedema. 4.Chronic obstructive pulmonary disease. 5.Anemia. Plan: We will go ahead and continue current medications which is Tamiflu. Continue her home medicat ions per order. Her COVID-19 test came back negative, so the patient will no longer need isolation f or COVID. She will still need isolation for influenza A and B. Continue DVT prophylaxis using Lovenox. Culture result pending. Continue current empiric antibiotics. I dakota l see her tomorrow for followup. ARNOL/MODL Voice ID: [id number] Report ID: [id number]
[2019-07-05 02:23] VITALS: O2SAT 99
[2019-07-05] MEDS: LEVOTHYROXINE SOD 0.05 MG TABLET PO SCH (06:08)
[2019-07-05 06:20] VITALS: BMI 22.8
[2019-07-05] MEDS: HOME MED 1 EA UNK (Fluticasone/Umeclidin/Vilanter [Trelegy Ellipta 100-62.5-25] 1 PUFF) IH SCH (09:00)
[2019-07-05 09:22] VITALS: BP 166/80; TEMP 97.7
[2019-07-05] MEDS: FUROSEMIDE 20 MG/ 2ML VIAL IV SCH (09:36)
[2019-07-05] MEDS: CEFTRIAXONE/SWI 1gm 1 GM/10 ML SYR IV SCH (09:36)
[2019-07-05] MEDS: ATORVASTATIN 40 MG TAB PO SCH (09:37)
[2019-07-05] MEDS: HYDROCODONE/APAP 10/325 TAB PO SCH (09:37)
[2019-07-05] MEDS: DOCUSATE NA 100 MG CAP PO SCH (09:37)
[2019-07-05] MEDS: ASPIRIN EC 81 MG TAB PO SCH (09:38)
[2019-07-05] MEDS: predniSONE 5 MG TAB PO SCH (09:38)
[2019-07-05] MEDS: GABAPENTIN 100 MG CAP PO SCH (09:38)
[2019-07-05] MEDS: OSELTAMIVIR PHOSPHATE 30 MG/5 ML SUSPENSION UD PO SCH (09:40)
[2019-07-05] MEDS: PARoxetine HCL 10 MG TAB PO SCH (09:43)
--- NOTE | 2019-07-08 19:33 | DS ---
Date of Discharge: 07/05/2019 Disposition: Discharged to go to [facility]. Physical Examination: HEENT: Unremarkable. Lungs: Clear to auscultation. Heart: Heart sounds normal. Abdomen: Soft, bowel sounds normal. No guarding, rigidity, tenderness, or distention. Extremities: No leg edema. Discharge Medications And Instructions: 1.Continue all prior home medication and please make sure to take cyclobenzaprine 1 pill at bedtime and not to take it 2 times a day. 2.Please make sure to take her pain medicine, which is hydrocodone prescribed by Dr. Westbrook as I unde giorgio as per discussion with the son, your dose should be 5 mg 4 times a day or 10 mg 3 times a day. 3.Take cephalexin 500 mg p.o. 3 times a day for 5 days. 4.Take Tamiflu 75 mg p.o. twice a day for 3 days. 5.Follow up with Dr. Pollock next week and call office for appointment. Hospital Course: 89-year-old female patient living at [facility], was brought t o the emergency room with fever, leg swelling, and feeling weak. Please see dictated H and P for mor e information. The patient was evaluated in the emergency room. She was admitted to the hospital wi th cellulitis of bilateral legs. Influenza A and B and rule out COVID-19. She was kept in isolation . Her COVID-19 test came back negative. She has chronic lymphedema of legs with her leg swelling go t worse. The patient's son informed me that he is concerned that the patient may not have been takin g her medications correctly and missing medications or taking more than a suggested amount, so I did advise him that he should talk to [facility], the facility where she lives and see if they can bakari ge her medication instead of patient taking her own medication at that time he informed me that in at case, the patient will have to move into assisted care part of the [facility] or [facility], so as per my discussion, he is going to start looking into those options for patient. Mauricio cochran by the time when the patient was ready for discharge, I was told that she will be going back to Independent Facility, so apparently it appears that no different arrangements has been made by family and should be returning back to her independent part of [facility]. She has home health care serv ices who will provide home health services upon discharge. Her cellulitis from the leg has improved to the extent that with antibiotic, it has almost completely resolved. Lymphedema of both legs has i mproved significantly back to her baseline. Overall, her condition has improved and she was discharg ed in stable condition with above-mentioned medication and instruction. Final Diagnoses: 1.Cellulitis, bilateral legs. 2.Influenza A and B with respiratory manifestation. 3.Lymphedema, legs. 4.Chronic steroid therapy. 5.Chronic obstructive pulmonary disease. 6.Hypertension. 7.Hypothyroidism. 8.Rheumatoid arthritis. 9.History of deep venous thrombosis of leg, old. Laboratory Data Done During This Hospitalization: Upon admission, white count 6, hemoglobin 11.2, pl atelets 226 on 07/03/2019. On 07/04/2019, white count 5.6, hemoglobin 10.2, platelets 190. Also on 07/03, chemistry shows sodium 140, potassium 3.8, chloride 102, bicarb 35, BUN 12, creatinine 0.69, g lucose 94. ARNOL/MODL Voice ID: [id number] Report ID: [id number]
== END 2019-07-05 11:23 | disposition home health service (06) | DRG 194 ==
LOC: ER 15:04 → ERHOLD 19:59 → 4TH 21:35 → 2ND 07-04 11:04
PROVIDERS: ADMIT Internal Medicine; ATTEND Internal Medicine
PROC: 8E0ZXY6 Isolation (ICD-10-PCS; principal; 2019-07-03)
DX: J10.1 Influenza due to other identified influenza virus with other respiratory manifestations (principal); L03.115 Cellulitis of right lower limb; L03.116 Cellulitis of left lower limb; E03.9 Hypothyroidism, unspecified; D64.9 Anemia, unspecified; M06.9 Rheumatoid arthritis, unspecified; I10 Essential (primary) hypertension; J44.9 Chronic obstructive pulmonary disease, unspecified; K21.9 Gastro-esophageal reflux disease without esophagitis; E78.5 Hyperlipidemia, unspecified; Z90.710 Acquired absence of both cervix and uterus; Z90.49 Acquired absence of other specified parts of digestive tract; Z79.01 Long term (current) use of anticoagulants; Z86.718 Personal history of other venous thrombosis and embolism; Z86.711 Personal history of pulmonary embolism; Z20.828 Contact with and (suspected) exposure to other viral communicable diseases; Z88.8 Allergy status to other drugs, medicaments and biological substances
CPT/HCPCS: 36415; 71045; 72170; 80048; 80061; 80076; 81003; 81015; 83735; 83880; 84484; 85025; 85610; 87070; 87081; 87086; 87088; 87804; 93005; 93970; 96374; 96375; 99284; J0696; J1650; J1940; J2270; J7512; U0002

== ENCOUNTER 2019-08-01 13:27 | Emergency (ER) | payer OTHER ==
--- NOTE | 2019-08-01 14:36 | RAD REPORT ---
EXAM DESCRIPTION: Asaf Single View08/01/2019 2:19 pm CLINICAL HISTORY: COPD/swelling COMPARISON: June 2019 FINDINGS: The lungs appear clear of acute infiltrate. The heart is normal size IMPRESSION: No acute abnormalities displayed
--- OUTSIDE RECORDS SUMMARY | 2019-08-01 14:45 | XMS REPORT | Clinical Summary ---
:1930 Author Organization [facility] Address [address] [place] [address] Care Team Providers Name Role Phone Fidencio Pollock MD Primary Care Provider Allergies Active Allergy Reactions Severity Noted Date Comments Mesalamine Rash High 12/05/2015 Sore throat, ey es hurt, "large whelps" Adalimumab Swelling High 12/05/2015 Swelling of fac e, feet ankles legs, so b Methotrexate Analogues Other (See High 12/05/2015 SOB Comments) Abatacept (With Swelling High 12/05/2015 Knee joints so painful [place]) could not walk-infection Promethazine Other (See High 12/05/2015 Hallucinations Comments) Rituximab Swelling High 12/05/2015 Sulfasalazine Other (See Medium 12/05/2015 Headaches, wea kness, no Comments) energy Medications Medication Sig Dispensed [...] . spironolactone Take 25 mg by 0 A ctive (ALDACTONE) 25 MG mouth 2 (two) tablet times daily. ALPRAZolam (XANAX) 0.25 Take 0.25 mg by 0 Active MG tablet mouth daily with breakfast . 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 Wilson 07/2017 Arrhythmia 02/02/2016 PVC (premature ventricular contraction) 02/01/2016 TIA (transient ischemic attack) 01/31/2016 Hypothyroidism 01/31/2016 Transient cerebral ischemia, unspecified type 12/05/19 16 COPD (chronic obstructive pulmonary disease) GERD (gastroesophageal reflux disease) Anxiety Thyroid disease Encounters Date Type Specialty Care Team Description 07/04/2019 Lab Requisition Lab after 07/31/2018 Social History Tobacco Use Types Packs/Day Years [...] Name Priority Date/Time Associated Diagnosis Comme nts SARS-COV2/RT-PCR Routine 07/03/2019 3:32 PM Resu lts for this ([facility]) CDT procedure are in the results section. after 07/31/2018 Results SARS-CoV2/RT-PCR ([facility]) (07/03/2019 3:32 PM CDT) SARS-COV2/RT-PCR Not Detected Not Detected, Negative [facility] SARS-COV-2 PERFORMING LAB [facility] Specimen Other Narrative Performed At Negative results do not preclude SARS-CoV-2 [facility] infection and should not be used as the sole basis for patient management decisions. Negative results must be combined with clinical observations, patient history, and epidemiological information. A false negative result may occur if a specimen is improperly collected, transported or handled. The limit of detection for this assay is 250 copies/mL. This SARS CoV-2 test is a rapid, real-time RT-PCR test intended for the qualitative detection of nucleic acid from SARS-CoV-2 in a nasopharyngeal swab specimen collected from individuals suspected of COVID-19 by their healthcare provider. This test has not been Food and Drug Administration (FDA) cleared or approved and has been authorized by FDA under an Emergency Use Authorization (EUA). This EUA will be effective until the declaration that circumstances exist justifying the authorization of the emergency use of in vitro diagnostic tests for detection and/or diagnosis of COVID-19 is terminated under Section 564(b)(2) of the Act or the EUA is revoked under Section 564(g) of the Act. Fact Sheet for Healthcare Providers: https://www.[employer]/Documents/Xpert%20Xpre ss%20SARS%20CoV-2/Fact%20Sheets/302-0662%20SAR S-COV-2%20HEALTHCARE%20PROVIDERS%20FACT%20SHEE T.pdf Fact Sheet for Healthcare Patients: https://www.[employer]/Documents/Xpert%20Xpre ss%20SARS%20CoV-2/Fact%20Sheets/3023801%20SAR S-COV-2%20PATIENT%20FACT%20SHEET.pdf Performing Laboratory: [facility] [address] [place] [address] Performing Organization Address City/State/Zipcode Phone Number [facility] [address] [place] [address] CENTER after 07/31/2018 Insurance Payer Benefit Plan / Group Subscriber ID Type Phone A ddress [facility] - MEDICARE [place] MEDICARE HMO xxxxxxxxx [facility]GD CARE [facility] - [facility] C[employer] [place] PPO OPTIONS xxxxxxxxx PPO Advance Directives For more information, please contact:[facility] [place], [place] [phone] Code Status Date Activated Date Inactivated Comments [...]
--- OUTSIDE RECORDS SUMMARY | 2019-08-01 14:45 | XMS REPORT | Clinical Summary ---
:1930 Author Organization [facility] Address [address] [place] [address] Care Team Providers Name Role Phone Asked, Pcp Primary Care Provider Unavailable Allergies Active Allergy Reactions Severity Noted Date Comments Mesalamine Itching 03/31/2017 Adalimumab Swelling, Shortness Of Breath High 02/18/2016 Methotrexate Shortness Of Breath High 03/31/2017 Abatacept Other (See Comments) 02/18/2016 Joint p ains Promethazine Other (See Comments) 03/31/2017 Sulfasalazine Anaphylaxis High 03/31/2017 Medications Medication Sig Dispensed Refills Start Date End Date Status ALPRAZolam (XANAX) Take 0.25 mg by 0 Active 0.25 MG tablet mouth every morning. atorvastatin Take 40 mg by mouth 0 Active (LIPITOR) 40 MG nightly. tablet roflumilast Take 500 mcg by 0 Ac tive (DALIRESP) 500 mcg mouth daily. tablet famotidine (PEPCID) Take 20 mg by mouth 0 Active 20 MG tablet nightly. levothyroxine Take 50 mcg by 0 A ctive (SYNTHROID, LEVOXYL) mouth daily. 50 mcg tablet PARoxetine (PAXIL) 10 Take 40 mg by mouth 0 Active MG tablet daily with dinner. predniSONE Take 5 mg by mouth 0 Active (DELTASONE) 5 mg 2 (two) times a tablet day. budesonide-formoterol Inhale 2 puffs 2 0 Active (SYMBICORT) 160-4.5 (two) times a day. mcg/actuation inhaler albuterol (PROAIR Inhale 2 puffs 0 Active HFA,PROVENTIL every 6 (six) hours HFA,VENTOLIN HFA) 90 as needed for mcg/actuation inhaler wheezing. tiotropium (SPIRIVA) Place 1 capsule 0 Active 18 mcg per inhalation into inhaler and capsule inhale once daily. acetaminophen-codeine Take 1 tablet by 0 Active (TYLENOL WITH CODEINE mouth every 6 (six) #3) 300-30 mg per hours as needed for tablet moderate pain (Headaches). benzonatate Take 200 mg by 0 Act jose (TESSALON) 100 MG mouth 3 (three) capsule times a day as needed for cough. docusate sodium Take 100 mg by 0 Active (COLACE) 100 MG mouth 2 (two) times capsule a day as needed for constipation. albuterol sulfate Take 2.5 mg by 0 Active (PROVENTIL) 2.5 nebulization 3 mg/0.5 mL solution (three) times a for nebulization day. melatonin 3 mg tablet Take 3 mg by mouth 0 Active nightly as needed for sleep. lisinopril Take 1 tablet (20 30 tablet 0 03/03/2018 Active (PRINIVIL,ZESTRIL) 20 mg total) by mouth mg tablet daily for 30 days. Active Problems Problem Noted Date Shortness of breath 02/28/2018 Hiatal hernia 03/31/2017 Family History Medical History Relation Name Comments [...] Signs Not on file Plan of Treatment Health Maintenance Due Date Last Done Comments SHINGLES VACCINES (#1) 1981 65+ PNEUMOCOCCAL VACCINE (1 of 2 - PCV13) 1996 INFLUENZA VACCINE 10/13/2019 Implants Implanted Type Area Barrel Maker Device Identifier Shelf Exp iration Model / Date Serial / L ot Reveal Linq-02/02/2016 Implanted: Qty: 1 on 02/02/2016 Description:Heart monitor implant ( s/p Loop LINQ) IMPLANTED By DR [facility] at [facility]. 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
--- OUTSIDE RECORDS SUMMARY | 2019-08-01 14:46 | XMS REPORT ---
:1930 Author Organization [facility] Address [address] [place] [address] Care Team Providers Name Role Phone Asked, Pcp Primary Care Physician Unavailable Matthew Crane MD Attending Clinician Sherrie BENTLEY Attending Clinician Doctor Unassigned, Name Attending Clinician Unavailable Josef Paul MD Attending Clinician Janis PALOMARES Attending Clinician ZARI MCKEON Attending Clinician Unavailable OTSUZY Attending Clinician Unavailable Janis PALOMARES Admitting Clinician ZARI MCKEON Admitting Clinician Unavailable OTSUZY Admitting Clinician Unavailable Problems Condition Condition Condition Status Onset Resolution Last Treating Co mments Source Name Details Category Date Date Treatment Clinician Date Shortness Shortness Disease Active 2017-03 Cammy ston of breath of breath 2-18 Meth rocky 00:00: st 00 Hiatal Hiatal Disease Active [place] hernia hernia 18 Methodi 00:00: st 00 Allergies, Adverse Reactions, Alerts Allergy Allergy Status Severity Reaction(s) Onset Inactive Treating Comm ents Source Name Type Date Date Clinician Mesalami Propensi Active Itching [place] ne ty to 03-31 Methodi adverse 00:00: st reaction 00 s to drug Methotre Propensi Active Shortness Of Alaniz xate ty to Breath 03-31 Methodi adverse 00:00: st reaction 00 s to drug Prometha Propensi Active Other (See [place] zine ty to Comments) 03-31 Methodi adverse 00:00: st reaction 00 s to drug Sulfasal Propensi Active Anaphylaxis [place] azine ty to 03-31 Methodi adverse 00:00: st reaction 00 s to drug Adalimum Propensi Active Swelling, 2015-03 Cammy mariscal ab ty to Shortness Of 04-20 Meth rocky adverse Breath 00:00: st reaction 00 s to drug Abatacep Propensi Active Other (See 2015-03 [facility] whit t ty to Comments) 04-20 pains Methodi adverse 00:00: st reaction 00 s to drug Family History Family Member Diagnosis Comments Start Date Stop Date Source Natural brother No Known Problems Daniel sherman Christianity Natural father Cancer [facility] Natural father Hypertension [place] [facility] Natural father Vision loss [place] [facility] ethodist Maternal grandfather No Known Problems [place] [facility] Maternal grandmother No Known Problems [place] [facility] Natural mother Thyroid disease [place] [facility] Natural mother Vision loss [facility] ethodist Paternal grandfather No Known Problems [place] [facility] Paternal grandmother No Known Problems [place] [facility] Natural sister No Known Problems Cammy mariscal Christianity Social History Social Habit Start Date Stop Date Quantity Comments Source Sex Assigned At [facility] ethodist Alcohol intake 2018-02-28 2018-02-28 Current [facility] 00:00:00 00:00:00 non-drinker of alcohol (finding) Smoking Status Start Date Stop Date Source Never smoker [place] Graceis t Medications Ordered Filled Start Stop Current Ordering Indication Dosage Frequency Signature Comments Components Source Medication Medication Date Date Medication? Clinician (SIG) Name Name lisinopril 2017-03 Yes 20mg QD Take 1 [place] (PRINIVIL,Z 2-21 tablet (20 Me thodi ESTRIL) 20 00:00: mg total) st mg tablet 00 by mouth daily for 30 days. ALPRAZolam 2017-03 Yes .25mg QD Take 0.25 [place] (XANAX) 2-20 mg by Methodi 0.25 MG 16:02: mouth st tablet 34 every morning. atorvastati 2017-03 Yes 40mg QD Take 40 mg Alaniz n (LIPITOR) 2-20 by mouth Meth rocky 40 MG 16:02: nightly. st tablet 34 roflumilast 2017-03 Yes 500ug QD Take 500 [place] (DALIRESP) 2-20 mcg by Methodi 500 mcg 16:02: mouth st tablet 34 daily. famotidine 2017-03 Yes 20mg QD Take 20 mg [place] (PEPCID) 20 2-20 by mouth Meth rocky MG tablet 16:02: nightly. st 34 levothyroxi 2017-03 Yes 50ug QD Take 50 Cammy ston ne 2-20 mcg by Methodi (SYNTHROID, 16:02: mouth st LEVOXYL) 50 34 daily. mcg tablet PARoxetine 2017-03 Yes 40mg QD Take 40 mg [place] (PAXIL) 10 2-20 by mouth Metho di MG tablet 16:02: daily with st 34 dinner. predniSONE 2017-03 Yes 5mg Q.5D Take 5 mg [place] (DELTASONE) 2-20 by mouth 2 Me thodi 5 mg tablet 16:02: (two) st 34 times a day. budesonide- 2017-03 Yes 2{puff} Q.5D Inhale 2 Alaniz formoterol 2-20 puffs 2 Method i (SYMBICORT) 16:02: (two) st 160-4.5 34 times a mcg/actuati day. on inhaler albuterol 2017-03 Yes 2{puff} Q6H Inhale 2 [place] (PROAIR 2-20 puffs Methodi HFA,PROVENT 16:02: every 6 st [place] 34 (six) HFA,VENTOLI hours as N HFA) 90 needed for mcg/actuati wheezing. on inhaler tiotropium 2017-03 Yes 1{capsu QD Place 1 [place] (SPIRIVA) 2-20 le} capsule Methodi 18 mcg per 16:02: into st inhalation 34 inhaler capsule and inhale once daily. acetaminoph 2017-03 Yes 1{tbl} Q6H Take 1 [place] en-codeine 2-20 tablet by Meth rocky (TYLENOL 16:02: mouth st WITH 34 every 6 CODEINE #3) (six) 300-30 mg hours as per tablet needed for moderate pain (Headaches ). benzonatate 2017-03 Yes 200mg Q.[id number] Take 200 Alaniz (TESSALON) 2-20 [id number] mg by Me thodi 100 MG 16:02: 3D mouth 3 st capsule 34 (three) times a day as needed for cough. docusate 2017-03 Yes 100mg Q.5D Take 100 [place] sodium 2-20 mg by Methodi (COLACE) 16:02: mouth 2 st 100 MG 34 (two) capsule times a day as needed for constipati on. albuterol 2017-03 Yes 2.5mg Q.[id number] Take 2.5 Alaniz sulfate 2-20 [id number] mg by Metho di (PROVENTIL) 16:02: 3D nebulizati st 2.5 mg/0.5 34 on 3 mL solution (three) for times a nebulizatio day. n melatonin 3 2017-03 Yes 3mg QD Take 3 mg [place] mg tablet 2-20 by mouth Method i 16:02: nightly as st 34 needed for sleep. Procedures This patient has no known procedures. Plan of Care Planned Activity Planned Date Details Comments Source Future Scheduled 2019-10-13 INFLUENZA VACCINE Charley n [facility] Test 00:00:00 [code = INFLUENZA VACCINE] Future Scheduled 1996 65+ PNEUMOCOCCAL [place] [facility] Test 00:00:00 VACCINE (1 of 2 - PCV13) [code = 65+ PNEUMOCOCCAL VACCINE (1 of 2 - PCV13)] Future Scheduled 1981 SHINGLES VACCINES (#1) [place] [facility] Test 00:00:00 [code = SHINGLES VACCINES (#1)] Encounters Start End Encounter Admission Attending Care Care Encounter Source Date/Time Date/Time Type Type Clinicians Facility Department ID 2019-06-18 2019-06-18 [facility] [id number] 07:52:37 08:22:37 ne Visit Nehemiah Castro PRIMARY 350.1.13.10 CARE 4.2.7.2.686 [place] [id number] 2019-05-04 2019-05-04 Telephone Ifrah Balderas 1.2.840.11 [id number] 00:00:00 00:00:00 [facility] 350.1.13.10 CLINICS 4.2.7.2.686 [id number] 2019-04-26 2019-04-26 Telephone Ifrah Balderas 1.2.840.11 [id number] 00:00:00 00:00:00 Y [facility] 350.1.13.10 CLINICS 4.2.7.2.686 [id number] 2019-04-20 2019-04-20 [facility] Ifrah Balderas [facility] 1.2.840.114 [id number] 08:45:00 23:59:00 Encounter Y HEALTH 350.1.13.10 CLINICS 4.2.7.2.686 [id number] 2019-04-19 2019-04-19 [facility] Ifrah Balderas [facility] 1.2.840.114 [id number] 15:08:00 23:59:00 Encounter [place] 350.1.13.10 [place] 4.2.7.2.686 [place] [id number] 2019-04-17 2019-04-17 [facility] Ifrah Balderas [facility] 1.2.840.114 [id number] 00:00:00 00:00:00 Management [facility] 350.1.13.10 CLINICS 4.2.7.2.686 [id number] 2019-04-17 2019-04-17 [place] [id number] 00:00:00 00:00:00 Y HEALTH 350.1.13.10 CLINICS 4.2.7.2.686 [id number] 2019-04-17 2019-04-17 Orders Doctor GARCIA 1.2.840.114 [id number] 00:00:00 00:00:00 Only Unassigned, DELFINO 350.1.13.10 [facility] 4.2.7.2.686 [id number] 2019-04-10 2019-04-12 [facility] Jean-PaulMac ochoa 1.2.840 .114 [id number] 14:52:41 20:30:00 Encounter Beverly Mac [facility]1 [facility] 4.2.7[facility]2.686 [id number] 2019-04-12 2019-04-12 [facility] 1.2.840.114 [id number] 00:00:00 00:00:00 Management Y HEALTH 350.1.13.10 CLINICS 4.2.7.2.686 [id number] Results Test Description Test Time Test Comments Results Result Comments Source SARS-COV2/RT-PCR ([facility]) 2019-07-04 07:03:00 Test Item Value Reference Range Interpretation Comme nts SARS-COV2/RT-PCR (test code = 8253286) Not Detected Not Detected, N egative SARS-COV-2 PERFORMING LAB (test code = [facility] 9346326) Negative results do not preclude SARS-CoV-2 infection and should not be used as the sole basis for patient management decisions. Negative results must be combined with clinical observations, patient history, and epidemiological information. A false negative result may occur if a specimen is improperly collected, transported or handled.The limit of detection for this assay is 250 copies/mL.This SARS CoV-2 test is a rapid, real-time RT-PCR test intended for the qualitative detection of nucleic acid from SARS-CoV-2 in a nasopharyngeal swab specimen collected from individuals suspected of COVID-19 by their healthcare provider.This test has not been Food and Drug [...] is revoked under Section 564(g) of the Act.Fact Sheet for Healthcare Pro viders:https://www.[place].[employer]/Documents/Xpert%20Xpress%20SARS%20CoV-2/Fact%20Sh eets/302-2722%13MOIM-NDA-4%20HEALTHCARE%20PROVIDERS%20FACT%20SHEET.pdfFact Sheet for Healthcare Patients:https://www.[employer] id.[employer]/Documents/Xpert%20Xpress%20SARS%20CoV-2/Fact%20Sheets/302-6421%20SARS-COV -2%20PATIENT%20FACT%20SHEET.pdfPerforming Laboratory:[facility], [place] [address]FTHGFT [id number] 16:22:00Surgical Pathology Report Case: [id number] Authorizing Provider: Misha Calloway MD Collected: 09/16/2017 1538 Ordering Location: [address] Received: 09/19/2017 0820 Service Pathologist: Larry Cohn MD Specimen: Polyp, Colon - Rectosigmoid, POLYP TAKEN BY HOT SNARE RECTO-SIGMOID, POLYPECTOMY- TUBULAR ADENOMA- CAUTERIZED EDGE, NEGATIVE FOR ADENOMATOUS CHANGE Signing PathologistDirect Phone Line: [phone] signed by Larry Cohn MD on 09/20/2017 at 4:22 [id number] bleedRectosigmoid colon polypThe specimen is received in a formalin- filled container and labeled with the patient's information and labeled "rectosigmoid colon polyp" and consists of a durham-red polyp measuring 0.8 x 0.8 x 0.3 cm. Resection margin is inked blue. The specimen is trisected, submitted entirely A1. CG/pl There is no high grade dysplasia or carcinoma.MAGNESIUM 2017-09-17 07:32:00 Test Item Value Reference Range Interpretation Comments MAGNESIUM (BEAKER) (test code = 1.9 mg/dL 1.6-2.6 627) BASIC METABOLIC [id number] 07:32:00 Test Item Value Reference Range Interpretation Comments SODIUM (BEAKER) 138 meq/L 136-145 (test code = 381) POTASSIUM (BEAKER) 4.2 meq/L 3.5-5.1 (test code = 379) CHLORIDE (BEAKER) 106 meq/L 98-107 (test code = 382) CO2 (BEAKER) (test 25 meq/L 22-29 code = 355) BLOOD UREA NITROGEN 6 mg/dL 7-21 L (BEAKER) (test code = 354) CREATININE (BEAKER) 0.66 mg/dL 0.57-1.25 (test code = 358) GLUCOSE RANDOM 76 mg/dL 70-105 (BEAKER) (test code = 652) CALCIUM (BEAKER) 8.4 mg/dL 8.4-10.2 (test code = 697) EGFR (BEAKER) (test 85 mL/min/1.73 ESTIMA UCHE GFR IS code = 1092) sq m NOT ACCURATE CREATININE CLEARANCE IN PREDICTING GLOMERULAR FILTRATION RATE . ESTIMATED GFR I S NOT APPLICABLE FOR DIALYSIS PATIEN TS. [id number] 06:42:00 Test Item Value Reference Range Interpretation Comments PROTIME (BEAKER) (test code = 20.8 seconds 11.7-14.7 H 759) INR (BEAKER) (test code = 370) 1.8 <=5.9 PARTIAL THROMBOPLASTIN TIME 36.1 seconds 22.5-36.0 H (BEAKER) (test code = 760) RECOMMENDED COUMADIN/WARFARIN INR THERAPY RANGESSTANDARD DOSE: 2.0 - 3.0 Includes: PROPHYLAXIS forvenous thrombosis, systemic embolization; TREATMENT for venous thrombosis and/or pulmonary embolus.HIGH RISK: Target INR is 2.5-3.5 for patients with mechanical heart valves.CBC W/PLT COUNT & AUTO DIFFERENTIAL 2017-09-17 06:41:00 Test Item Value Reference Range Interpretation Comments WHITE BLOOD CELL COUNT (BEAKER) 5.5 K/ L 3.5-10.5 (test code = 775) RED BLOOD CELL COUNT (BEAKER) 3.52 M/ L 3.93-5.22 L (test code = 761) HEMOGLOBIN (BEAKER) (test code = 10.4 GM/DL 11.2-15.7 L 410) HEMATOCRIT (BEAKER) (test code = 33.1 % 34.1-44.9 L 411) MEAN CORPUSCULAR VOLUME (BEAKER) 94.0 fL 79.4-94.8 (test code = 753) MEAN CORPUSCULAR HEMOGLOBIN 29.5 pg 25.6-32.2 (BEAKER) (test code = 751) MEAN CORPUSCULAR HEMOGLOBIN CONC 31.4 GM/DL 32.2-35.5 L (BEAKER) (test code = 752) RED CELL DISTRIBUTION WIDTH 19.8 % 11.7-14.4 H (BEAKER) (test code = 412) PLATELET COUNT (BEAKER) (test 240 K/CU MM 150-450 code = 756) MEAN PLATELET VOLUME (BEAKER) 8.5 fL 9.4-12.3 L (test code = 754) NUCLEATED RED BLOOD CELLS 0 /100 WBC 0-0 (BEAKER) (test code = 413) NEUTROPHILS RELATIVE PERCENT 43 % (BEAKER) (test code = 429) LYMPHOCYTES RELATIVE PERCENT 49 % (BEAKER) (test code = 430) MONOCYTES RELATIVE PERCENT 7 % (BEAKER) (test code = 431) EOSINOPHILS RELATIVE PERCENT 1 % (BEAKER) (test code = 432) BASOPHILS RELATIVE PERCENT 0 % (BEAKER) (test code = 437) NEUTROPHILS ABSOLUTE COUNT 2.34 K/ L 1.56-6.13 (BEAKER) (test code = 670) LYMPHOCYTES ABSOLUTE COUNT 2.68 K/ L 1.18-3.74 (BEAKER) (test code = 414) MONOCYTES ABSOLUTE COUNT (BEAKER) 0.38 K/ L 0.24-0.36 H (test code = 415) EOSINOPHILS ABSOLUTE COUNT 0.05 K/ L 0.04-0.36 (BEAKER) (test code = 416) BASOPHILS ABSOLUTE COUNT (BEAKER) 0.02 K/ L 0.01-0.08 (test code = 417) IMMATURE GRANULOCYTES-RELATIVE 0 % 0-1 PERCENT (BEAKER) (test code = 2801) [id number] 19:07:00 Test Item Value Reference Range Interpretation Comments MAGNESIUM (BEAKER) (test code = 1.9 mg/dL 1.6-2.6 627) BASIC METABOLIC [id number] 19:07:00 Test Item Value Reference Range Interpretation Comments SODIUM (BEAKER) 137 meq/L 136-145 (test code = 381) POTASSIUM (BEAKER) 3.8 meq/L 3.5-5.1 (test code = 379) CHLORIDE (BEAKER) 106 meq/L 98-107 (test code = 382) CO2 (BEAKER) (test 23 meq/L 22-29 code = 355) BLOOD UREA NITROGEN 6 mg/dL 7-21 L (BEAKER) (test code = 354) CREATININE (BEAKER) 0.64 mg/dL 0.57-1.25 (test code = 358) GLUCOSE RANDOM 82 mg/dL 70-105 (BEAKER) (test code = 652) CALCIUM (BEAKER) 8.5 mg/dL 8.4-10.2 (test code = 697) EGFR (BEAKER) (test 88 mL/min/1.73 ESTIMA UCHE GFR IS code = 1092) sq m NOT ACCURATE CREATININE CLEARANCE IN PREDICTING GLOMERULAR FILTRATION RATE . ESTIMATED GFR I S NOT APPLICABLE FOR DIALYSIS PATIEN TS. CBC (HEMOGRAM ONLY)2017-09-16 18:38:00 Test Item Value Reference Range Interpretation Comments WHITE BLOOD CELL COUNT (BEAKER) 6.5 K/ L 3.5-10.5 (test code = 775) RED BLOOD CELL COUNT (BEAKER) 3.61 M/ L 3.93-5.22 L (test code = 761) HEMOGLOBIN (BEAKER) (test code = 10.9 GM/DL 11.2-15.7 L 410) HEMATOCRIT (BEAKER) (test code = 33.5 % 34.1-44.9 L 411) MEAN CORPUSCULAR VOLUME (BEAKER) 92.8 fL 79.4-94.8 (test code = 753) MEAN CORPUSCULAR HEMOGLOBIN 30.2 pg 25.6-32.2 (BEAKER) (test code = 751) MEAN CORPUSCULAR HEMOGLOBIN CONC 32.5 GM/DL 32.2-35.5 (BEAKER) (test code = 752) RED CELL DISTRIBUTION WIDTH 19.8 % 11.7-14.4 H (BEAKER) (test code = 412) PLATELET COUNT (BEAKER) (test 239 K/CU MM 150-450 code = 756) MEAN PLATELET VOLUME (BEAKER) 8.7 fL 9.4-12.3 L (test code = 754) NUCLEATED RED BLOOD CELLS 0 /100 WBC 0-0 (BEAKER) (test code = 413) [id number] 06:56:00 Test Item Value Reference Range Interpretation Comments PHOSPHORUS (BEAKER) (test code = 2.7 mg/dL 2.3-4.7 604) [id number] 06:56:00 Test Item Value Reference Range Interpretation Comments MAGNESIUM (BEAKER) (test code = 1.9 mg/dL 1.6-2.6 627) BASIC METABOLIC [id number] 06:56:00 Test Item Value Reference Range Interpretation Comments SODIUM (BEAKER) 139 meq/L 136-145 (test code = 381) POTASSIUM (BEAKER) 4.1 meq/L 3.5-5.1 (test code = 379) CHLORIDE (BEAKER) 107 meq/L 98-107 (test code = 382) CO2 (BEAKER) (test 26 meq/L 22-29 code = 355) BLOOD UREA NITROGEN 11 mg/dL 7-21 (BEAKER) (test code = 354) CREATININE (BEAKER) 0.73 mg/dL 0.57-1.25 (test code = 358) GLUCOSE RANDOM 107 mg/dL 70-105 H (BEAKER) (test code = 652) CALCIUM (BEAKER) 8.5 mg/dL 8.4-10.2 (test code = 697) EGFR (BEAKER) (test 76 mL/min/1.73 ESTIMA UCHE GFR IS code = 1092) sq m NOT ACCURATE CREATININE CLEARANCE IN PREDICTING GLOMERULAR FILTRATION RATE . ESTIMATED GFR I S NOT APPLICABLE FOR DIALYSIS PATIEN TS. HEPATIC FUNCTION [id number] 06:56:00 Test Item Value Reference Range Interpretation Comments TOTAL PROTEIN (BEAKER) (test code = 5.2 gm/dL 6.0-8.3 L 770) ALBUMIN (BEAKER) (test code = 1145) 2.9 g/dL 3.5-5.0 L BILIRUBIN TOTAL (BEAKER) (test code 0.8 mg/dL 0.2-1.2 = 377) BILIRUBIN DIRECT (BEAKER) (test 0.4 mg/dL 0.1-0.5 code = 706) ALKALINE PHOSPHATASE (BEAKER) (test 43 U/L 40-150 code = 346) AST (SGOT) (BEAKER) (test code = 13 U/L 5-34 353) ALT (SGPT) (BEAKER) (test code = 10 U/L 6-55 347) CALCIUM, [id number] 06:36:00 Test Item Value Reference Range Interpretation Comments CALCIUM IONIZED (BEAKER) (test 1.05 mmol/L 1.12-1.27 L code = 698) PH, BLOOD (BEAKER) (test code = 7.46 1810) PROTHROMBIN [id number] 06:35:00 Test Item Value Reference Range Interpretation Comments PROTIME (BEAKER) (test code = 14.2 seconds 11.7-14.7 759) INR (BEAKER) (test code = 370) 1.1 <=5.9 RECOMMENDED COUMADIN/WARFARIN INR THERAPY RANGESSTANDARD DOSE: 2.0 - 3.0 Includes: PROPHYLAXIS forvenous thrombosis, systemic embolization; TREATMENT for venous thrombosis and/or pulmonary embolus.HIGH RISK: Target INR is 2.5-3.5 for patients with mechanical heart valves.CBC W/PLT COUNT & AUTO DIFFERENTIAL 2017-08-05 06:25:00 Test Item Value Reference Range Interpretation Comments WHITE BLOOD CELL COUNT (BEAKER) 9.4 K/ L 3.5-10.5 (test code = 775) RED BLOOD CELL COUNT (BEAKER) 3.48 M/ L 3.93-5.22 L (test code = 761) HEMOGLOBIN (BEAKER) (test code = 10.0 GM/DL 11.2-15.7 L 410) HEMATOCRIT (BEAKER) (test code = 31.1 % 34.1-44.9 L 411) MEAN CORPUSCULAR VOLUME (BEAKER) 89.4 fL 79.4-94.8 (test code = 753) MEAN CORPUSCULAR HEMOGLOBIN 28.7 pg 25.6-32.2 (BEAKER) (test code = 751) MEAN CORPUSCULAR HEMOGLOBIN CONC 32.2 GM/DL 32.2-35.5 (BEAKER) (test code = 752) RED CELL DISTRIBUTION WIDTH 18.3 % 11.7-14.4 H (BEAKER) (test code = 412) PLATELET COUNT (BEAKER) (test 234 K/CU MM 150-450 code = 756) MEAN PLATELET VOLUME (BEAKER) 8.9 fL 9.4-12.3 L (test code = 754) NUCLEATED RED BLOOD CELLS 0 /100 WBC 0-0 (BEAKER) (test code = 413) NEUTROPHILS RELATIVE PERCENT 70 % (BEAKER) (test code = 429) LYMPHOCYTES RELATIVE PERCENT 24 % (BEAKER) (test code = 430) MONOCYTES RELATIVE PERCENT 5 % (BEAKER) (test code = 431) EOSINOPHILS RELATIVE PERCENT 0 % (BEAKER) (test code = 432) BASOPHILS RELATIVE PERCENT 0 % (BEAKER) (test code = 437) NEUTROPHILS ABSOLUTE COUNT 6.54 K/ L 1.56-6.13 H (BEAKER) (test code = 670) LYMPHOCYTES ABSOLUTE COUNT 2.30 K/ L 1.18-3.74 (BEAKER) (test code = 414) MONOCYTES ABSOLUTE COUNT (BEAKER) 0.50 K/ L 0.24-0.36 H (test code = 415) EOSINOPHILS ABSOLUTE COUNT 0.03 K/ L 0.04-0.36 L (BEAKER) (test code = 416) BASOPHILS ABSOLUTE COUNT (BEAKER) 0.02 K/ L 0.01-0.08 (test code = 417) IMMATURE GRANULOCYTES-RELATIVE 0 % 0-1 PERCENT (BEAKER) (test code = 2801) TISSUE [id number] 14:52:00Surgical Pathology Report Case: [id number] Authorizing Provider: Ricardo Wilson MD Collected: 08/02/2017 1715 Ordering Location: [facility] Endoscopy Received: 08/03/2017 0837 Services Pathologist: Larry Cohn MD Specimen: Rectal, MASS- TAKEN BY ESD, ON WAX, EVALUATE MARGINS RECTAL, 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)- NEGATIVE FOR HIGH GRADE DYSPLASIA OR CARCINOMA- PERIPHERAL MARGINS, NEGATIVE FOR ADENOMATOUS CHANGE Signing Pathologist Direct Phone Line: [phone] signed by Larry Cohn MD on 08/04/2017 at 2:52 [id number] polyp Rectal mass Received in formalin labeled [...] 2017-08-04 06:19:00 Test Item Value Reference Range Interpretation Comments WHITE BLOOD CELL COUNT (BEAKER) 15.6 K/ L 3.5-10.5 H (test code = 775) RED BLOOD CELL COUNT (BEAKER) 3.50 M/ L 3.93-5.22 L (test code = 761) HEMOGLOBIN (BEAKER) (test code = 9.9 GM/DL 11.2-15.7 L 410) HEMATOCRIT (BEAKER) (test code = 31.4 % 34.1-44.9 L 411) MEAN CORPUSCULAR VOLUME (BEAKER) 89.7 fL 79.4-94.8 (test code = 753) MEAN CORPUSCULAR HEMOGLOBIN 28.3 pg 25.6-32.2 (BEAKER) (test code = 751) MEAN CORPUSCULAR HEMOGLOBIN CONC 31.5 GM/DL 32.2-35.5 L (BEAKER) (test code = 752) RED CELL DISTRIBUTION WIDTH 18.0 % 11.7-14.4 H (BEAKER) (test code = 412) PLATELET COUNT (BEAKER) (test 223 K/CU MM 150-450 code = 756) MEAN PLATELET VOLUME (BEAKER) 8.7 fL 9.4-12.3 L (test code = 754) NUCLEATED RED BLOOD CELLS 0 /100 WBC 0-0 (BEAKER) (test code = 413) NEUTROPHILS RELATIVE PERCENT 81 % (BEAKER) (test code = 429) LYMPHOCYTES RELATIVE PERCENT 15 % (BEAKER) (test code = 430) MONOCYTES RELATIVE PERCENT 4 % (BEAKER) (test code = 431) EOSINOPHILS RELATIVE PERCENT 0 % (BEAKER) (test code = 432) BASOPHILS RELATIVE PERCENT 0 % (BEAKER) (test code = 437) NEUTROPHILS ABSOLUTE COUNT 12.56 K/ L 1.56-6.13 H (BEAKER) (test code = 670) LYMPHOCYTES ABSOLUTE COUNT 2.36 K/ L 1.18-3.74 (BEAKER) (test code = 414) MONOCYTES ABSOLUTE COUNT (BEAKER) 0.56 K/ L 0.24-0.36 H (test code = 415) EOSINOPHILS ABSOLUTE COUNT 0.03 K/ L 0.04-0.36 L (BEAKER) (test code = 416) BASOPHILS ABSOLUTE COUNT (BEAKER) 0.02 K/ L 0.01-0.08 (test code = 417) IMMATURE GRANULOCYTES-RELATIVE 0 % 0-1 PERCENT (BEAKER) (test code = 2801) HEPATIC FUNCTION [id number] 06:15:00 Test Item Value Reference Range Interpretation Comments TOTAL PROTEIN (BEAKER) (test code = 4.9 gm/dL 6.0-8.3 L 770) ALBUMIN (BEAKER) (test code = 1145) 2.8 g/dL 3.5-5.0 L BILIRUBIN TOTAL (BEAKER) (test code 1.1 mg/dL 0.2-1.2 = 377) BILIRUBIN DIRECT (BEAKER) (test 0.5 mg/dL 0.1-0.5 code = 706) ALKALINE PHOSPHATASE (BEAKER) (test 42 U/L 40-150 code = 346) AST (SGOT) (BEAKER) (test code = 15 U/L 5-34 353) ALT (SGPT) (BEAKER) (test code = 12 U/L 6-55 347) BASIC METABOLIC [id number] 06:15:00 Test Item Value Reference Range Interpretation Comments SODIUM (BEAKER) 139 meq/L 136-145 (test code = 381) POTASSIUM (BEAKER) 4.6 meq/L 3.5-5.1 (test code = 379) CHLORIDE (BEAKER) 108 meq/L 98-107 H (test code = 382) CO2 (BEAKER) (test 25 meq/L 22-29 code = 355) BLOOD UREA NITROGEN 13 mg/dL 7-21 (BEAKER) (test code = 354) CREATININE (BEAKER) 0.73 mg/dL 0.57-1.25 (test code = 358) GLUCOSE RANDOM 115 mg/dL 70-105 H (BEAKER) (test code = 652) CALCIUM (BEAKER) 8.5 mg/dL 8.4-10.2 (test code = 697) EGFR (BEAKER) (test 76 mL/min/1.73 ESTIMA UCHE GFR IS code = 1092) sq m NOT ACCURATE CREATININE CLEARANCE IN PREDICTING GLOMERULAR FILTRATION RATE . ESTIMATED GFR I S NOT APPLICABLE FOR DIALYSIS PATIEN TS. PROTHROMBIN [id number] 05:59:00 Test Item Value Reference Range Interpretation Comments PROTIME (BEAKER) (test code = 14.6 seconds 11.7-14.7 759) INR (BEAKER) (test code = 370) 1.1 <=5.9 RECOMMENDED COUMADIN/WARFARIN INR THERAPY RANGESSTANDARD DOSE: 2.0 - 3.0 Includes: PROPHYLAXIS forvenous thrombosis, systemic embolization; TREATMENT for venous thrombosis and/or pulmonary embolus.HIGH RISK: Target INR is 2.5-3.5 for patients with mechanical heart valves.URINALYSIS W/ [id number] 14:53:00 Test Item Value Reference Range Interpretation Comments COLOR (BEAKER) (test code = 470) Yellow CLARITY (BEAKER) (test code = 469) Clear SPECIFIC GRAVITY UA (BEAKER) (test 1.010 1.001-1.035 code = 468) PH UA (BEAKER) (test code = 467) 5.5 5.0-8.0 PROTEIN UA (BEAKER) (test code = Negative Negative 464) GLUCOSE UA (BEAKER) (test code = Negative Negative 365) KETONES UA (BEAKER) (test code = Trace Negative A 371) BILIRUBIN UA (BEAKER) (test code = Negative Negative 462) BLOOD UA (BEAKER) (test code = 461) Negative Negative NITRITE UA (BEAKER) (test code = Negative Negative 465) LEUKOCYTE ESTERASE UA (BEAKER) Negative Negative (test code = 466) UROBILINOGEN UA (BEAKER) (test code 0.2 mg/dL 0.2-1.0 = 463) RBC UA (BEAKER) (test code = 519) 1 /HPF WBC UA (BEAKER) (test code = 520) 3 /HPF MUCUS (BEAKER) (test code = 1574) Few SQUAMOUS EPITHELIAL (BEAKER) (test < /HPF code = 516) HYALINE CASTS (BEAKER) (test code = 2 /LPF 514) SOURCE(BEAKER) (test code = 8555) HEPATIC FUNCTION [id number] 06:31:00 Test Item Value Reference Range Interpretation Comments TOTAL PROTEIN (BEAKER) (test code = 5.2 gm/dL 6.0-8.3 L 770) ALBUMIN (BEAKER) (test code = 1145) 3.1 g/dL 3.5-5.0 L BILIRUBIN TOTAL (BEAKER) (test code 1.1 mg/dL 0.2-1.2 = 377) BILIRUBIN DIRECT (BEAKER) (test 0.5 mg/dL 0.1-0.5 code = 706) ALKALINE PHOSPHATASE (BEAKER) (test 47 U/L 40-150 code = 346) AST (SGOT) (BEAKER) (test code = 20 U/L 5-34 353) ALT (SGPT) (BEAKER) (test code = 15 U/L 6-55 347) BASIC METABOLIC [id number] 06:31:00 Test Item Value Reference Range Interpretation Comments SODIUM (BEAKER) 139 meq/L 136-145 (test code = 381) POTASSIUM (BEAKER) 2.7 meq/L 3.5-5.1 L (test code = 379) CHLORIDE (BEAKER) 106 meq/L 98-107 (test code = 382) CO2 (BEAKER) (test 24 meq/L 22-29 code = 355) BLOOD UREA NITROGEN 7 mg/dL 7-21 (BEAKER) (test code = 354) CREATININE (BEAKER) 0.61 mg/dL 0.57-1.25 (test code = 358) GLUCOSE RANDOM 88 mg/dL 70-105 (BEAKER) (test code = 652) CALCIUM (BEAKER) 8.4 mg/dL 8.4-10.2 (test code = 697) EGFR (BEAKER) (test 93 mL/min/1.73 ESTIMA UCHE GFR IS code = 1092) sq m NOT ACCURATE CREATININE CLEARANCE IN PREDICTING GLOMERULAR FILTRATION RATE . ESTIMATED GFR I S NOT APPLICABLE FOR DIALYSIS PATIEN TS. BASIC METABOLIC [id number] 06:30:00 Test Item Value Reference Range Interpretation Comments SODIUM (BEAKER) 136 meq/L 136-145 (test code = 381) POTASSIUM (BEAKER) 3.0 meq/L 3.5-5.1 L Specimen slightly (test code = 379) hemolyzed CHLORIDE (BEAKER) 106 meq/L 98-107 (test code = 382) CO2 (BEAKER) (test 20 meq/L 22-29 L code = 355) BLOOD UREA NITROGEN 7 mg/dL 7-21 (BEAKER) (test code = 354) CREATININE (BEAKER) 0.61 mg/dL 0.57-1.25 Specimen slightly (test code = 358) hemolyzed GLUCOSE RANDOM 81 mg/dL 70-105 (BEAKER) (test code = 652) CALCIUM (BEAKER) 8.2 mg/dL 8.4-10.2 L (test code = 697) EGFR (BEAKER) (test 93 mL/min/1.73 ESTIMA UCHE GFR IS code = 1092) sq m NOT ACCURATE CREATININE CLEARANCE IN PREDICTING GLOMERULAR FILTRATION RATE . ESTIMATED GFR I S NOT APPLICABLE FOR DIALYSIS PATIEN TS. CBC W/PLT COUNT & AUTO [id number] 06:25:00 Test Item Value Reference Range Interpretation Comments WHITE BLOOD CELL COUNT (BEAKER) 14.6 K/ L 3.5-10.5 H (test code = 775) RED BLOOD CELL COUNT (BEAKER) 3.75 M/ L 3.93-5.22 L (test code = 761) HEMOGLOBIN (BEAKER) (test code = 10.5 GM/DL 11.2-15.7 L 410) HEMATOCRIT (BEAKER) (test code = 33.1 % 34.1-44.9 L 411) MEAN CORPUSCULAR VOLUME (BEAKER) 88.3 fL 79.4-94.8 (test code = 753) MEAN CORPUSCULAR HEMOGLOBIN 28.0 pg 25.6-32.2 (BEAKER) (test code = 751) MEAN CORPUSCULAR HEMOGLOBIN CONC 31.7 GM/DL 32.2-35.5 L (BEAKER) (test code = 752) RED CELL DISTRIBUTION WIDTH 17.5 % 11.7-14.4 H (BEAKER) (test code = 412) PLATELET COUNT (BEAKER) (test 246 K/CU MM 150-450 code = 756) MEAN PLATELET VOLUME (BEAKER) 8.9 fL 9.4-12.3 L (test code = 754) NUCLEATED RED BLOOD CELLS 0 /100 WBC 0-0 (BEAKER) (test code = 413) NEUTROPHILS RELATIVE PERCENT 88 % (BEAKER) (test code = 429) LYMPHOCYTES RELATIVE PERCENT 5 % (BEAKER) (test code = 430) MONOCYTES RELATIVE PERCENT 6 % (BEAKER) (test code = 431) EOSINOPHILS RELATIVE PERCENT 0 % (BEAKER) (test code = 432) BASOPHILS RELATIVE PERCENT 0 % (BEAKER) (test code = 437) NEUTROPHILS ABSOLUTE COUNT 12.85 K/ L 1.56-6.13 H (BEAKER) (test code = 670) LYMPHOCYTES ABSOLUTE COUNT 0.71 K/ L 1.18-3.74 L (BEAKER) (test code = 414) MONOCYTES ABSOLUTE COUNT (BEAKER) 0.94 K/ L 0.24-0.36 H (test code = 415) EOSINOPHILS ABSOLUTE COUNT 0.00 K/ L 0.04-0.36 L (BEAKER) (test code = 416) BASOPHILS ABSOLUTE COUNT (BEAKER) 0.02 K/ L 0.01-0.08 (test code = 417) IMMATURE GRANULOCYTES-RELATIVE 1 % 0-1 PERCENT (BEAKER) (test code = 2801) PROTHROMBIN [id number] 06:21:00 Test Item Value Reference Range Interpretation Comments PROTIME (BEAKER) (test code = 13.5 seconds 11.7-14.7 759) INR (BEAKER) (test code = 370) 1.0 <=5.9 RECOMMENDED COUMADIN/WARFARIN INR THERAPY RANGESSTANDARD DOSE: 2.0 - 3.0 Includes: PROPHYLAXIS forvenous thrombosis, systemic embolization; TREATMENT for venous thrombosis and/or pulmonary embolus.HIGH RISK: Target INR is 2.5-3.5 for patients with mechanical heart valves.
[2019-08-01 15:36] LABS: Absolute Lymphocytes (CBC) 2.8 K/uL (0.7-4.9); Basophils % 0.3 % (0-1.3); Hematocrit 35.4 % (36.0-45.0); Lymphocytes % 29.9 % (15.3-44.8); MPV 6.9 fL (7.6-11.3); RBC Red Blood Cell Count 3.84 M/uL (3.86-4.86)
[2019-08-01 16:22] LABS: ALT/SGPT 15 U/L (12-78); AST/SGOT 16 U/L (15-37); Albumin 2.5 g/dL (3.4-5.0); Alkaline Phosphatase 64 U/L (45-117); Amylase 40 U/L (25-115); BUN Blood Urea Nitrogen 13 mg/dL (7-18); Bicarbonate 32 mmol/L (21-32); Bilirubin Direct 0.3 mg/dL (0-0.2); Bilirubin Total 0.7 mg/dL (0.2-1.0); CKMB Creatine Kinase MB 1.2 ng/mL (0.3-3.6); Creatine Phosphokinase 56 U/L (26-192); Glucose Level 93 mg/dL (74-106); Lipase 181 U/L (73-393); Potassium 3.4 mmol/L (3.5-5.1); Protein, Total 6.8 g/dL (6.4-8.2); Sodium Level 136 mmol/L (136-145); Troponin (Emerg Dept Use Only) < 0.02 ng/mL (0.0-0.045)
--- NOTE | 2019-08-01 18:02 | EDPHYS ---
Physician Documentation [facility] Name: Elva Jenkins Age: 89 yrs Sex: Female : 1930 Arrival Date: 08/01/2019 Time: 13:28 Bed 18 Private MD: ED Physician Bismark Adams HPI: 08/01 08:29 This 89 yrs old Female presents to ER via EMS with complaints of hand kdr swelling. 08:29 The patient has generalize weakness and lower extremity lymphedema which is essentially kdr unchanged however, today, she is concerned about increased swelling in her hands. Onset: The symptoms/episode began/occurred gradually, at an unknown time. Severity of symptoms: At their worst the symptoms were mild in the emergency department the symptoms are unchanged. The patient has experienced similar episodes in the past, a few times. It is unknown whether or not the patient has recently seen a physician. Historical: - Allergies: 07/31 13:38 Asacol; ca1 13:38 Aspirin; ca1 13:38 Humira; ca1 13:38 Orencia; ca1 13:38 Phenergan; ca1 13:38 Sulfazine; ca1 13:38 Methotrexate; ca1 - Home Meds: 13:38 gabapentin 100 mg Oral cap 1 caps 3 times per day [Active]; albuterol sulfate 2.5 mg /3 ca1 mL (0.083 %) Inhl nebu 3 mL 3 times per day [Active]; atorvastatin 40 mg Oral tab 1 tab once daily [Active]; furosemide 20 mg Oral tab 1 tab once daily [Active]; prednisone 5 mg Oral tab 2 tabs twice a day [Active]; paroxetine HCl 40 mg Oral tab 1 tab once daily [Active]; levothyroxine 50 mcg tab 1 tab once daily [Active]; Cyclobenzaprine Oral [Active]; hydrocodone-acetaminophen 5-325 mg Oral tab [Active]; - PMHx: 13:38 Arthritis; COPD; Depression; GERD; Hyperlipidemia; Hypothyroidism; ca1 - PSHx: 13:38 Hysterectomy; ca1 - Immunization history:: Adult Immunizations not up to date. - Social history:: Smoking status: Patient denies any tobacco usage or history of. ROS: 08/01 08:29 Constitutional: Negative for fever, chills, and weight loss, Eyes: Negative for injury, kdr pain, redness, and discharge, ENT: Negative for injury, pain, and discharge, Neck: Negative for injury, pain, and swelling, Cardiovascular: Negative for chest pain, palpitations, and edema, Respiratory: Negative for shortness of breath, cough, wheezing, and pleuritic chest pain, Abdomen/GI: Negative for abdominal pain, nausea, vomiting, diarrhea, and constipation, Back: Negative for injury and pain, : Negative for injury, bleeding, discharge, and swelling, Skin: Negative for injury, rash, and discoloration, Psych: Negative for depression, anxiety, suicide ideation, homicidal ideation, and hallucinations, Allergy/Immunology: Negative for hives, rash, and allergies, Endocrine: Negative for neck swelling, polydipsia, polyuria, polyphagia, and marked weight changes, Hematologic/Lymphatic: Negative for swollen nodes, abnormal bleeding, and unusual bruising. MS/extremity: Positive for Chronic lymphedema in the lower extremities and mild diffuse swelling to her MCP joints without warmth or suggestion of cellulitis. Exam: 07/31 15:22 ECG was reviewed by the Attending Physician. kdr 08/01 08:29 Constitutional: This is a well developed, well nourished patient who is awake, alert, kdr and in no acute distress. Head/Face: Normocephalic, atraumatic. Cardiovascular: Regular rate and rhythm with a normal S1 and S2. No gallops, murmurs, or rubs. Normal PMI, no JVD. No pulse deficits. Respiratory: Lungs have equal breath sounds bilaterally, clear to auscultation and percussion. No rales, rhonchi or wheezes noted. No increased work of breathing, no retractions or nasal flaring. Abdomen/GI: Soft, non-tender, with normal bowel sounds. No distension or tympany. No guarding or rebound. No evidence of tenderness throughout. Back: No spinal tenderness. No costovertebral tenderness. Full range of motion. Neuro: Awake and alert, GCS 15, oriented to person, place, time, and situation. Cranial nerves II-XII grossly intact. Motor strength 5/5 in all extremities. Sensory grossly intact. Cerebellar exam normal. Normal gait. Psych: Awake, alert, with orientation to person, place and time. Behavior, mood, and affect are within normal limits. Skin: Appearance: The patient has multiple ecchymotic areas in her upper extremities. No obvious cellulitis or other acute injury or problem, cellulitis, is not appreciated, induration, that is moderate is noted, located on the right leg and left leg. Vital Signs: 07/31 13:28 BP 122 / 58; Pulse 91; Resp 20 S; Temp 97.5(TE); Pulse Ox 95% on R/A; Weight 45.36 kg ca1 (R); Height 4 ft. 11 in. (149.86 cm) (R); Pain 6/10; 13:28 Body Mass Index 20.20 (45.36 kg, 149.86 cm) ca1 MDM: 18:02 Patient medically screened. kdr 08/01 08:43 Data reviewed: vital signs, nurses notes, lab test result(s), radiologic studies. kdr Counseling: I had a detailed discussion with the patient and/or guardian regarding: the historical points, exam findings, and any diagnostic results supporting the discharge/admit diagnosis, lab results, radiology results, the need for outpatient follow up. Physician consultation: A Maris PALOMARES regarding consult, patient's condition, and will see patient in office, next week. ED course: The patient was stable in the ED and otherwise without focal complaint or concern. She was happy with the care provided and the plan for discharge and follow-up with Dr. Pollock.. 07/31 13:47 Order name: C-Reactive Protein; Complete Time: 17:10 [facility] 07/31 13:47 Order name: Amylase, Serum; Complete Time: 17: [facility] 07/31 13:47 Order name: Basic Metabolic Panel; Complete Time: 17:10 [facility] 07/31 13:47 Order name: Blood Culture Adult (2) kdr 07/31 13:47 Order name: CBC with Diff; Complete Time: 17:10 kdr 07/31 13:47 Order name: Ckmb; Complete Time: 17:10 kdr 07/31 13:47 Order name: CPK; Complete Time: 17:10 kdr 07/31 13:47 Order name: Lactate; Complete Time: 15:49 kdr 07/31 13:47 Order name: LFT's; Complete Time: 17:10 kdr 07/31 13:47 Order name: Lipase; Complete Time: 17:10 kdr 07/31 13:47 Order name: Procalcitonin; Complete Time: 17:10 [facility] 05/20 13:47 Order name: Protime (+inr); Complete Time: 15:49 kdr 07/31 13:47 Order name: Ptt, Activated; Complete Time: 15:49 kdr 07/31 13:47 Order name: Troponin (emerg Dept Use Only); Complete Time: 17:10 kdr 07/31 13:47 Order name: Chest Single View XRAY; Complete Time: 15:49 kdr 07/31 13:47 Order name: Accucheck; Complete Time: 17:13 kdr 07/31 13:47 Order name: Cardiac monitoring; Complete Time: 17:13 kdr 07/31 13:47 Order name: EKG - Nurse/Tech; Complete Time: 17:13 kdr 07/31 13:47 Order name: IV Saline Lock - Large Bore; Complete Time: 17:13 kdr 07/31 13:47 Order name: Labs collected and sent; Complete Time: 17:22 kdr 07/31 13:47 Order name: O2 Per Protocol; Complete Time: 17:13 kdr 07/31 13:47 Order name: O2 Sat Monitoring; Complete Time: 17:13 [facility] 07/31 13:47 Order name: Urine Dipstick-Ancillary (obtain specimen); Complete Time: 17:13 kdr 07/31 13:47 Order name: ESR; Complete Time: 17:10 kdr 07/31 17:24 Order name: Urine Dipstick--Ancillary (enter results) em1 07/31 17:24 Order name: Urine Dipstick--Ancillary (enter results) em1 EC/20 15:22 Rate is 96 beats/min. Rhythm is regular, Sinus Rhythm with Occasional PVCs. QRS Webster is kdr Normal. SC interval is normal. QRS interval is normal. Clinical impression: NSR w/ Non-specific ST/T Changes. Administered Medications: 19:21 Drug: KeFLEX 500 mg Route: PO; ls4 19:40 Follow up: Response: No adverse reaction ls4 19:21 Drug: Potassium Chloride 20 mEq Route: PO; ls4 19:40 Follow up: Response: No adverse reaction ls4 Disposition: 08/01/19 18:02 Discharged to Home. Impression: Lymphedema, not elsewhere classified, Cellulitis, unspecified. - Condition is Fair. - Discharge Instructions: Lymphedema, MRSA FAQs - LEA. - Prescriptions for Keflex 500 mg Oral Capsule - take 1 capsule by ORAL route every 8 hours for 7 days; 28 capsule. - Medication Reconciliation Form, Thank You Letter, Antibiotic Education form. - Follow up: Private Physician; When: 2 - 3 days; Reason: If symptoms return, Further diagnostic work-up, Recheck today's complaints, Continuance of care, Re-evaluation by your physician. - Problem is new. - Symptoms have improved. Signatures: Dispatcher [employer] EDOK Bismark Adams MD MD kdr Elise Cheung RN RN ls4 Livia Wall RN RN ca1 Corrections: (The following items were deleted from the chart) 19:23 18:02 08/01/2019 18:02 Discharged to Home. Impression: Lymphedema, not elsewhere ls4 classified; Cellulitis, unspecified. Condition is Fair. Forms are Medication Reconciliation Form, Thank You Letter, Antibiotic Education, Prescription Opioid Use. Follow up: Private Physician; When: 2 - 3 days; Reason: If symptoms return, Further diagnostic work-up, Recheck today's complaints, Continuance of care, Re-evaluation by your physician. Problem is new. Symptoms have improved. kdr
--- NOTE | 2019-08-01 18:02 | ER ---
Nurse's Notes [facility] Name: Elva Jenkins Age: 89 yrs Sex: Female : 1930 Arrival Date: 08/01/2019 Time: 13:28 Bed 18 Private MD: Diagnosis: Lymphedema, not elsewhere classified;Cellulitis, unspecified Presentation: 07/31 13:28 Chief complaint: EMS states: Called in for back pain., scheduled for a back surgery ca1 today. pt reported hands and legs swelling more than usual. Denies kidney issues or CHF. Pt also has wheezing, reports taking breathing treatments daily but did not do one today. A\T\A given. Coronavirus screen: Proceed with normal triage. Patient denies a cough. Patient denies shortness of breath or difficulty breathing. Patient denies measured and/or subjective temperature greater than 100.4F prior to today's visit. Patient denies travel on a cruise ship or to a country the [facility] currently lists as an affected area. Patient denies contact with known and/or suspected case of COVID-19. Ebola Screen: Patient negative for fever greater than or equal to 101.5 degrees Fahrenheit, and additional compatible Ebola Virus Disease symptoms Patient denies exposure to infectious person. Patient denies travel to an Ebola-affected area in the 21 days before illness onset. No symptoms or risks identified at this time. Initial Sepsis Screen: Does the patient meet any 2 criteria? No. Patient's initial sepsis screen is negative. Does the patient have a suspected source of infection? No. Patient's initial sepsis screen is negative. Risk Assessment: Do you want to hurt yourself or someone else? Patient reports no desire to harm self or others. Onset of symptoms was August 01, 2019. Transition of care: patient was received from another setting of care (long-term care facility), [facility]. 13:28 Method Of Arrival: EMS: [facility] ca1 13:28 Acuity: TAVON 3 ca1 Triage Assessment: 14:00 General: Appears in no apparent distress. uncomfortable. ls4 14:00 General: Behavior is calm, cooperative. Pain: Complains of pain in right arm, left arm, ls4 right leg and left leg Pain currently is 8 out of 10 on a pain scale. Quality of pain is described as aching, Pain began years ago. Is continuous. Cardiovascular: Denies chest pain, diaphoresis, fatigue, lightheadedness, nausea, palpitations, shortness of breath, syncope, vomiting, Capillary refill < 3 seconds Patient's skin is warm and dry. Respiratory: Airway is patent Respiratory effort is even, unlabored, Respiratory pattern is regular, Breath sounds are clear bilaterally. GI: No deficits noted. No signs and/or symptoms were reported involving the gastrointestinal system. Bowel sounds present X 4 quads. Abd is soft and non tender X 4 quads. : No deficits noted. No signs and/or symptoms were reported regarding the genitourinary system. Urine is clear. Derm: Skin is fragile, with poor turgor Skin is dry, Skin is mottled, pale, Skin temperature is warm. Musculoskeletal: Circulation, motion, and sensation intact. Capillary refill < 3 seconds, Range of motion: intact in all extremities, Swelling present in right arm, dorsal aspect of left forearm, left wrist and palmar aspect of left forearm. Historical: - Allergies: 13:38 Asacol; ca1 13:38 Aspirin; ca1 13:38 Humira; ca1 13:38 Orencia; ca1 13:38 Phenergan; ca1 13:38 Sulfazine; ca1 13:38 Methotrexate; ca1 - Home Meds: 13:38 gabapentin 100 mg Oral cap 1 caps 3 times per day [Active]; albuterol sulfate 2.5 mg /3 ca1 mL (0.083 %) Inhl nebu 3 mL 3 times per day [Active]; atorvastatin 40 mg Oral tab 1 tab once daily [Active]; furosemide 20 mg Oral tab 1 tab once daily [Active]; prednisone 5 mg Oral tab 2 tabs twice a day [Active]; paroxetine HCl 40 mg Oral tab 1 tab once daily [Active]; levothyroxine 50 mcg tab 1 tab once daily [Active]; Cyclobenzaprine Oral [Active]; hydrocodone-acetaminophen 5-325 mg Oral tab [Active]; - PMHx: 13:38 Arthritis; COPD; Depression; GERD; Hyperlipidemia; Hypothyroidism; ca1 - PSHx: 13:38 Hysterectomy; ca1 - Immunization history:: Adult Immunizations not up to date. - Social history:: Smoking status: Patient denies any tobacco usage or history of. Screenin:10 Abuse screen: Denies threats or abuse. Denies injuries from another. Nutritional ls4 screening: No deficits noted. Tuberculosis screening: No symptoms or risk factors identified. Fall Risk None identified. 14:10 VAN Screening: Arm Drift: Patient shows no arm weakness. Patient is VAN negative. The ls4 patient has not been NPO before screening. The patient is alert, able to follow commands. The patient does not exhibit slurred or garbled speech The patient is not exhibiting difficulty speaking. The patient does not exhibit difficulty understanding words. The patient is able to swallow own secretions with no drooling or need for suction. Patient tolerated one teaspoon of water. No drooling, immediate coughing, gurgling, or clearing of the throat was noted. The patient tolerated 90mL of water. No drooling, immediate coughing, gurgling, or clearing of the throat was noted. The patient passed the bedside swallow screening. Oral medications may be given as ordered. Contact Physician for further diet orders. Assessment: 17:34 Reassessment: Patient appears in no apparent distress at this time. Patient and/or ls4 family updated on plan of care and expected duration. Pain level reassessed. Patient is alert, oriented x 3, equal unlabored respirations, skin warm/dry/pink. General: Appears in no apparent distress. comfortable. Vital Signs: 13:28 BP 122 / 58; Pulse 91; Resp 20 S; Temp 97.5(TE); Pulse Ox 95% on R/A; Weight 45.36 kg ca1 (R); Height 4 ft. 11 in. (149.86 cm) (R); Pain 6/10; 13:28 Body Mass Index 20.20 (45.36 kg, 149.86 cm) ca1 ED Course: 13:28 Patient arrived in ED. ca1 13:30 Bismark Adams MD is Attending Physician. kdr 13:34 Triage completed. ca1 13:38 Arm band placed on right wrist. ca1 14:01 Elise Cheung, GUME is Primary Nurse. ls4 14:19 Chest Single View XRAY In Process Unspecified. EDMS 14:29 Initial lab(s) drawn, by me, sent to lab. Urine collected: EKG done, by ED staff, ls4 reviewed by Bismark Adams MD. Inserted saline lock: 20 gauge in left antecubital area, using aseptic technique. Blood collected. Patient maintains SpO2 saturation greater than 95% on room air. 17:36 No provider procedures requiring assistance completed. ls4 17:37 No apparent distress. Resting quietly. ls4 17:42 Urine Dipstick--Ancillary (enter results) Sent. ls4 08/01 00:54 IV discontinued, intact, bleeding controlled, No redness/swelling at site. Pressure ls4 dressing applied. Administered Medications: 07/31 19:21 Drug: KeFLEX 500 mg Route: PO; ls4 19:40 Follow up: Response: No adverse reaction ls4 19:21 Drug: Potassium Chloride 20 mEq Route: PO; ls4 19:40 Follow up: Response: No adverse reaction ls4 Outcome: 18:02 Discharge ordered by . kdr 18:31 Patient left the ED. ls4 18:31 Discharged to home via wheelchair. ls4 18:31 Condition: stable 18:31 Discharge instructions given to patient, Instructed on discharge instructions, follow up and referral plans. medication usage, safety practices, Demonstrated understanding of instructions, follow-up care, medications, Prescriptions given X 2. Signatures: Dispatcher [employer] EDMS Bismark Adams MD MD kdr Elise Cheung, RN RN ls4 Livia Wall RN RN ca1 Corrections: (The following items were deleted from the chart) 08/01 00:54 07/31 19:23 Patient left the ED. ls4 ls4 08/01 00:55 07/31 19:22 URINE DIPSTICK--ANCILLARY+U.LAB.BRZ drawn and sent. ls4 ls4
[2019-08-01 18:18] LABS: Urine Blood TRACE (NEG); Urine Glucose NEGATIVE (NEG); Urine Protein NEGATIVE (NEG); Urine Specific Gravity 1.015 (1.005-1.030)
[2019-08-01] MEDS ORDERED: POTASSIUM CL SA 10 MEQ TAB PO ONE (19:05)
[2019-08-01] MEDS ORDERED: CEPHALEXIN 250 MG CAP ONE (19:05)
[2019-08-01 19:36] VITALS: BP 122/58; TEMP 97.5; O2SAT 95
--- NOTE | 2019-08-03 06:26 | EKG ---
Test Date: 2019-08-01 Test Time: 15:20:58 Insulation Packer: LAY MEASUREMENT RESULTS: Intervals: Rate: 96 GA: 138 QRSD: 78 QT: 358 QTc: 452 Parkman: P: 72 GA: 138 QRS: 25 T: 74 INTERPRETIVE STATEMENTS: Sinus rhythm with occasional premature ventricular complexes Otherwise normal ECG Compared to ECG 07/03/2019 15:22:47 Ventricular premature complex(es) now present Ventricular-paced complex(es) or rhythm no longer present Myocardial infarct finding no longer present Electronically Signed On 08-03-19 06:24:16 CDT by Kel Ro
== END 2019-08-01 19:23 | disposition home or self-care (01) ==
LOC: ER 13:27
DX: L03.114 Cellulitis of left upper limb (principal); L03.113 Cellulitis of right upper limb; E78.5 Hyperlipidemia, unspecified; E03.9 Hypothyroidism, unspecified; J44.9 Chronic obstructive pulmonary disease, unspecified; F32.9 Major depressive disorder, single episode, unspecified; Z88.2 Allergy status to sulfonamides; Z88.6 Allergy status to analgesic agent; Z88.8 Allergy status to other drugs, medicaments and biological substances
CPT/HCPCS: 36415; 71045; 80048; 80076; 81003; 82150; 82550; 82553; 83605; 83690; 84145; 84484; 85025; 85610; 85652; 85730; 86140; 87040; 93005; 99284

== ENCOUNTER 2019-10-03 11:37 | Inpatient (IN) | payer OTHER ==
--- OUTSIDE RECORDS SUMMARY | 2019-10-03 12:26 | XMS REPORT | Clinical Summary ---
:1930 Author Organization [facility] Address [address] [place] [address] Care Team Providers Name Role Phone Asked, [...] INFLUENZA VACCINE 10/13/2019 Implants Implanted Type Area Solar Sales Specialist Device Identifier Shelf Exp iration Model / Date Serial / L ot Reveal Linq-02/02/2016 Implanted: Qty: 1 on 02/02/2016 Description:Heart monitor implant ( s/p Loop LINQ) IMPLANTED By DR [facility] at [facility]. Results Not on fileafter 10/02/2018 Advance Directives For more information, please contact: [phone] Type Date Recorded Patient Solar Site Assessment Specialist Explanati on Advance Directives, Living Will 03/31/2017 5:13 PM and Medical Power of Privacy Compliance Manager
--- OUTSIDE RECORDS SUMMARY | 2019-10-03 12:26 | XMS REPORT | Clinical Summary ---
:1930 Author Organization [facility] Address [address] [place] [address] Care Team Providers Name Role Phone Fidencio [...] Team Description 07/04/2019 Lab Requisition Lab after 10/02/2018 Social History Tobacco Use Types Packs/Day Years [...] procedure are in the results section. after 10/02/2018 Results SARS-CoV2/RT-PCR ([facility]) (07/03/2019 3:32 PM CDT) SARS-COV2/RT-PCR Not Detected Not Detected, Negative [facility] SARS-COV-2 PERFORMING LAB [facility] Specimen Other Narrative Performed At Negative results do not preclude SARS-CoV-2 [facility] infection and should not be used as [...] the Act. Fact Sheet for Healthcare Providers: https://www.Skytree/Documents/Xpert%20Xpre ss%20SARS%20CoV-2/Fact%20Sheets/302-4932%20SAR S-COV-2%20HEALTHCARE%20PROVIDERS%20FACT%20SHEE T.pdf Fact Sheet for Healthcare Patients: https://www.ezTaxicom/Documents/Xpert%20Xpre ss%20SARS%20CoV-2/Fact%20Sheets/3023801%20SAR S-COV-2%20PATIENT%20FACT%20SHEET.pdf Performing Laboratory: [facility] [address] [place] [address] Performing Organization Address City/State/Zipcode Phone Number [facility] [address] [place] [address] CENTER after 10/02/2018 Insurance Payer Benefit Plan / Group Subscriber ID Type Phone A ddress [facility] [place] MEDICARE HMO xxxxxxxxx [facility]GD CARE [facility] [place] PPO OPTIONS xxxxxxxxx PPO Advance Directives For more information, please contact:[facility], [place] [phone] Code Status Date Activated Date Inactivated Comments [...]
--- OUTSIDE RECORDS SUMMARY | 2019-10-03 12:27 | XMS REPORT | Continuity of Care Document ---
:[address] [facility] [place], [place] t Address [address] [place] [address] Care Team Providers Name Role Phone Asked, Pcp Primary Care Physician Unavailable Matthew Crane MD Attending Clinician Sherrie BENTLEY Attending Clinician Doctor Unassigned, Name Attending Clinician Unavailable Josef Paul MD Attending Clinician Janis PALOMARES Attending Clinician ZARI MCKEON Attending Clinician Unavailable OTHMDARVIN Attending Clinician Unavailable Janis PALOMARES Admitting Clinician ZARI MCKEON Admitting Clinician Unavailable OTSUZY Admitting Clinician Unavailable Payers Payer Name Policy Policy Number Effective Expiration Source Type Date Date [facility] - xxxxxxxxx [facility] MGD CAREUNITED L ukes - MEDICARE HMOxxxxxxxxx Med ical Center [facility] - MGD xxxxxxxxx [facility] CAREUNITED PPO [facility] - OPTIONSxxxxxxxxxPPO Medic al Center Problems Condition Condition Condition Status Onset Resolution Last Treating Co mments Source Name Details Category Date Date Treatment Clinician Date Shortness Shortness Disease Active 2017-03 Cammy ston of breath of breath 2-18 Meth rocky 00:00: st 00 C. C. Disease Active [facility] difficile difficile 7-06 [facility] - colitis colitis 00:00: Medical 00 Center Bilateral Bilateral Disease Active [facility] pulmonary pulmonary 7 [facility] - embolism embolism 00:00: Medica l 00 Center Left leg Left leg Disease Active [facility] DVT DVT 09-16 [facility] - 00:[facility]: Medical 00 Center Gastroesop Gastroesop Disease Active [facility] hageal hageal 08-04 [facility] - reflux reflux 00:00: Medical disease disease 00 Center without without esophagiti esophagiti s s Rectal Rectal Disease Active [facility] bleeding bleeding 08-03 [facility] - 00:[facility]: Medical 00 [place] Hypokalemi Hypokalemi Disease Active [facility] a a 08-03 [facility] 00:[facility] Medical 00 Center Other Other Disease Active [facility] specified specified 08-03 [facility] - hypothyroi hypothyroi 00:00: Me dical dism dism 00 [place] Normochrom Normochrom Disease Active [facility] ic anemia ic anemia 08-03 [facility] - 00:00: Medical 00 Center Rectal Rectal Disease Active Overview: [facility] polyp polyp 08-02 S/p ESD [facility] - 00:00: by Medical [address] [place] [address] 07/2017 Hiatal Hiatal Disease Active Alaniz hernia hernia 1-18 Methodi 00:00: st 00 Arrhythmia Arrhythmia Disease Active 2015-[address] 04-03 [facility] - 00:[facility]: Medical 00 [place] PVC PVC Disease Active 2015-[address] [facility] (premature (premature -20 [facility] - ventricula ventricula 00:00: Me dical r r 00 Center contractio contractio n) n) TIA TIA Disease Active 2015-[address] [facility] (transient (transient 19 [place] - ischemic ischemic 00:00: Medica l attack) attack) 00 Center Hypothyroi Hypothyroi Disease Active 2015-[address] dism dism - [facility] - 00:[facility]: Medical 00 Center Transient Transient Disease Active [facility] cerebral cerebral 12-04 [facility] - ischemia, ischemia, 00:00: Medi yoni unspecifie unspecifie 00 Ce nter d type d type 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 Thyroid Thyroid Disease Active [facility] disease disease [facility] Allergies, Adverse Reactions, Alerts Allergy Allergy Status [...] drug Prometha Propensi Active Other (See Ho whit zimell ty to Comments) 03-31 [facility] adverse 00:00: st reaction 00 s to drug Sulfasal Propensi Active Anaphylaxis [place] azine ty to 03-31 [facility] adverse 00:00: st reaction 00 s to drug Adalimum Propensi Active Swelling, 2015-03 Cammy ston ab ty to Shortness Of 04-20 Meth rocky adverse Breath 00:00: st reaction 00 s to drug Abatacep Propensi Active Other (See 2015-03 [facility] [place] t ty to Comments) 04-20 pains [facility] adverse 00:00: st reaction 00 s to drug Mesalami Drug Active Rash Sore [facility] ne Allergy 12-04 throat, [facility] - 00:00: eyes Medical 00 hurt, Center "large whelps" Adalimum Drug Active Swelling Swelling [facility] ab Allergy 12-04 of face, [facility] - 00:00: feet Medical 00 ankles Center legs, sob Methotre Drug Active Other (See SOB [facility] xate Allergy Comments) 12-04 [facility] - Analogue 00:00: Medical s 00 Center Abatacep Drug Active Swelling Knee [facility] t (With Allergy 12-04 joints so [facility] - Maltose) 00:00: painful Medical 00 could not Center walk-infe ction Prometha Drug Active Other (See Hallucina [facility] zine Allergy Comments) 12-04 tions [facility] - 00:00: Medical 00 Center Rituxima Drug Active Swelling [facility] b Allergy 12-04 [facility] - 00:00: Medical 00 Center Sulfasal Drug Active Other (See 2016-[address] azine Allergy Comments) 12-04 , [facility] - 00:00: [facility], Medical 00 no energy Center Family History Family Member Diagnosis Comments Start Date Stop Date Source Natural brother No Known Problems [facility]felicit[facility] Natural father Cancer [facility] Me thodist Natural father Hypertension [facility] Natural father Vision loss Alan[facility] M ethodist Maternal grandfather No Known Problems [facility] Maternal grandmother No Known Problems [facility] Natural mother Thyroid disease [place] [facility] Natural mother Vision loss [facility] M ethodist Paternal grandfather No Known Problems [place] [facility] Paternal grandmother No Known Problems [place] [facility] Natural sister No Known Problems Cammy ston [facility] Social History Social Habit Start Date Stop Date Quantity Comments Source Sex Assigned At [facility] Alcohol intake 2018-02-28 2018-02-[address] [facility] thodist 00:00:00 00:00:00 non-drinker of alcohol (finding) Smoking Status Start Date Stop Date Source Never smoker [facility] Medications Ordered Filled Start Stop Current Ordering [...] pain (Headaches ). benzonatate 2017-03 Yes 200mg [id number] Take 200 [facility] (TESSALON) 2-20 [id number] mg by Me thodi 100 MG 16:02: 3D mouth 3 st capsule 34 (three) times a day as needed for cough. docusate 2017-03 Yes 100mg Q.5D Take 100 [place] sodium 2-20 mg by Methodi (COLACE) 16:02: mouth 2 st 100 MG 34 (two) capsule times a day as needed for constipati on. albuterol 2017-03 Yes 2.5mg Q.[id number] Take 2.5 [facility] sulfate 2-20 [id number] mg by Metho di (PROVENTIL) 16:02: 3D nebulizati st 2.5 mg/0.5 34 on 3 mL solution (three) for times a nebulizatio day. n melatonin 3 2017-03 Yes 3mg QD Take 3 mg [place] mg tablet 2-20 by mouth Method i 16:02: nightly as st 34 needed for sleep. PARoxetine 2017- Yes 40mg Take [address] (PAXIL) 40 7-06 by mouth [facility] - MG tablet 12:18: daily with Me dical 26 dinner . [place] ALPRAZolam 2017- Yes .25mg Take 0.[address] (XANAX) 7-06 mg by [facility] - 0.25 MG 12:18: mouth Medical tablet 26 daily with Center breakfast . vancomycin 2018-0 Yes 125mg Take [address] (VANCOCIN) 7-06 mg by [facility] - 125 MG 12:18: mouth 3 Medical capsule 26 (three) Center times daily with meals. rivaroxaban 2017- Yes Take by [facility] (XARELTO) 7-06 mouth [facility] - 20 mg Tab 12:18: daily with Me dical tablet 26 dinner. [place] IRON 2017- Yes Take by [facility] FUM/FOLIC 5-18 mouth. [facility] - ACID/MV,MIN 13:44: Medica l 15 49 Center (HEMOCYTE-P SIOBHAN ORAL) tiotropium 2017-0 Yes 18ug QD Inhale [address] (SPIRIVA) 5-18 mcg by [facility] - 18 mcg 13:44: mouth via Medica l inhalation 49 inhaler Center capsule daily. levothyroxi 2018-0 Yes 50ug Take [address] ne 5-18 mcg by [facility] - (SYNTHROID, 13:44: mouth Medic al LEVOTHROID) 48 Every Center 50 MCG morning on tablet an empty stomach. roflumilast 2018-0 Yes QD Take by [facility] (DALIRESP) 5-18 mouth [facility] - 500 mcg Tab 13:44: daily. Medi yoni tablet 48 Center furosemide 2017-0 Yes 20mg QD Take [address] (LASIX) 20 5-18 by mouth [facility] - MG tablet 13:11: daily . Medic al 32 Center spironolact 2018-0 Yes 25mg Q.5D Take [address] one 5-18 by mouth 2 [facility] - (ALDACTONE) 13:11: (two) Medic al 25 MG 32 times Center tablet daily. predniSONE 2015-03 Yes 5mg Q.5D Take [address] (DELTASONE) 1-19 by mouth 2 [place] - 5 MG tablet 00:34: (two) Medic al 25 times Center daily . umeclidiniu 2015-03 Yes 1{puff} QD Inhale [address] m (INCRUSE 1-19 puff by [facility] - ELLIPTA) 00:34: mouth via Medi yoni 62.5 25 inhaler Center mcg/actuati daily . on DsDv powder for inhalation cycloSPORIN Yes 1[drp] Q.5D [address] E 9-23 (two) [facility] - (RESTASIS) 11:31: times Medica l 0.05 % 33 daily. Center ophthalmic emulsion budesonide- Yes 2{puff} Q.5D Inhale [address] formoterol 9-23 puffs by [facility] - (SYMBICORT) 11:31: mouth via M edical 160-4.5 33 inhaler 2 Center mcg/actuati (two) on inhaler times daily. albuterol Yes 1{puff} Inhale [address] HFA 9-23 puff by [facility] - (VENTOLIN 11:31: mouth via Med ical HFA) 90 33 inhaler Center mcg/actuati every 6 on inhaler (six) hours as needed for Wheezing. Procedures Procedure Date / Time Performed Performing Clinician Sourc e SARS-COV2/RT-PCR ([facility] 2019-07-03 15:32:00 JERRI [facility] - & RE[facility]) Medical Center Plan of Care Planned Activity Planned Date Details Comments Source Future Scheduled 2019-10-13 INFLUENZA VACCINE [place] [facility] Test 00:00:00 [code = INFLUENZA VACCINE] Future Scheduled 1996 65+ PNEUMOCOCCAL [facility] Test 00:00:00 VACCINE (1 of 2 - PCV13) [code = 65+ PNEUMOCOCCAL VACCINE (1 of 2 - PCV13)] Future Scheduled 1980 SHINGLES VACCINES (#1) H prabhjot [facility] Test 00:00:00 [code = SHINGLES VACCINES (#1)] Encounters Start End Encounter Admission Attending Care Care Encounter Source Date/Time Date/Time Type Type Clinicians Facility Department ID 2019-06-18 2019-06-18 [facility] [id number] 07:52:37 08:22:37 ne Visit Nehemiah Castro PRIMARY 350.1.13.10 [facility]7.2.686 [id number] 2019-05-04 2019-05-04 Telephone Ifrah Balderas [address]11 4 [id number] 00:00:00 00:00:00 Y HE[facility] 350.1.13.10 CLINICS 4.2.7.2.686 [id number] 2019-04-26 2019-04-26 [place] Ifrah Balderas [place] [id number] 00:00:00 00:00:00 Y HEALTH 350.1.13.10 CLINICS 4.2.7.2.686 [id number] 2019-04-20 2019-04-[address]114 [id number] 08:45:00 23:59:00 Encounter Y HEALTH 350.1.13.10 CLINICS 4.2.7.2.686 [id number] 2019-04-19 2019-04-19 [facility] [id number] 15:08:00 23:59:00 Encounter [place] 350.1.13.10 [place] 4.2.7.2.686 [place] [id number] 2019-04-17 2019-04-17 [facility] Ifrah Balderas [address]114 [id number] 00:00:00 00:00:00 Management Y HEALTH 350.1.13.10 CLINICS 4.2.7.2.686 [id number] 2019-04-17 2019-04-17 [place] Ifrah Balderas [address]11 4 [id number] 00:00:00 00:00:00 Y HEALTH 350.1.13.10 CLINICS 4.2.7.2.686 [id number] 2019-04-17 2019-04-17 Orders Doctor JOSE 1.2.840.114 [id number] 00:00:00 00:00:00 Only UnassignedDELFINO 350.1.13.10 [facility] 4.2.7.2.686 [id number] 2019-04-10 2019-04-12 [facility] [place] 1.2.840 .114 [id number] 14:52:41 20:30:00 Encounter [place] 350[facility]1.13.1 [facility] 4.2.7.2.686 [id number] 2019-04-12 2019-04-12 Case Ifrah Balderas 1.2.840.114 [id number] 00:00:00 00:00:00 [facility] 350.1.13.10 CLINICS 4.2.7.2.686 [id number] Results Test Description Test Time Test Comments Results Result Comments Source SARS-CoV2/RT-PCR ([facility] & Ref Labs) 2019-07-04 07:03:00 Test Item Value Reference Range Interpretation Comme nts SARS-COV2/RT-PCR (test code = Not Detected Not Detected, Negative 15869-8) SARS-COV-2 PERFORMING LAB [facility] (test code = 72109-0) LANDRY (test code = LANDRY) Negative results do not preclude SARS-CoV-2 infection [...] of the Act. Fact Sheet for Healthcare Providers:https://www.[employer]/Documents/Xpert%20Xpress %20SARS%20CoV-2/Fact%20Sheets /3023802%65LNFX-URR-4%20HEAL THCARE%20PROVIDERS%20FACT%20S HEET.pdf Fact Sheet for Healthcare Patients:https://www.On Networks/Documents/Xpert%20Xpress% 20SARS%20CoV-2/Fact%20Sheets/ 3023801%22OPBX-BEP-2%20PATIE NT%20FACT%20SHEET.pdf Performing Laboratory:[facility] [place] [address] [facility]F [facility])2019-07-04 07:03:00 Test Item Value Reference Range Interpretation Comments SARS-COV2/RT-PCR (test Not Detected Not Detected, Negative code = 3555329) SARS-COV-2 PERFORMING LAB [facility] (test code = 0543696) Negative results do not preclude SARS-CoV-2 infection [...] of the Act.Fact Sheet for Healthcare Pro viders:https://www.[facility].[employer]/Documents/Xpert%20Xpress%20SARS%20CoV-2/Fact%20Sh eets/302-3802%09NCEH-XOR-8%20HEALTHCARE%20PROVIDERS%20FACT%20SHEET.pdfFact Sheet for Healthcare Patients:https://www.Team[employer]/Documents/Xpert%20Xpress%20SARS%20CoV-2/Fact%20Sheets/302-3801%20SARS-COV -2%20PATIENT%20FACT%20SHEET.pdfPerforming Laboratory:[facility] [place], [place] [address]HKJKDU [id number] 16:22:00Surgical Pathology Report Case: [id number] Authorizing Provider: Misha Calloway MD Collected: 09/16/2017 1538 Ordering Location: [address] Received: 09/19/2017 0820 Service Pathologist: Larry Cohn MD Specimen: Polyp, Colon - Rectosigmoid, POLYP TAKEN BY HOT SNARE RECTO-SIGMOID, POLYPECTOMY- TUBULAR ADENOMA- CAUTERIZED EDGE, NEGATIVE FOR ADENOMATOUS CHANGE Signing PathologistDirect Phone Line: [phone] signed by Larry Cohn MD on 09/20/2017 at 4:22 [id number] bleedRectosigmoid colon polypThe specimen is received in [...] = 1.9 mg/dL 1.6-2.6 627) BASIC METABOLIC [id number] 07:32:00 Test Item Value Reference Range Interpretation [...] S NOT APPLICABLE FOR DIALYSIS PATIEN TS. [id number] 06:42:00 Test Item Value Reference Range Interpretation [...] 0-1 PERCENT (BEAKER) (test code = 2801) [id number] 19:07:00 Test Item Value Reference Range Interpretation Comments MAGNESIUM (BEAKER) (test code = 1.9 mg/dL 1.6-2.6 627) BASIC METABOLIC [id number] 19:07:00 Test Item Value Reference Range Interpretation [...] WBC 0-0 (BEAKER) (test code = 413) [id number] 06:56:00 Test Item Value Reference Range Interpretation Comments PHOSPHORUS (BEAKER) (test code = 2.7 mg/dL 2.3-4.7 604) [id number] 06:56:00 Test Item Value Reference Range Interpretation Comments MAGNESIUM (BEAKER) (test code = 1.9 mg/dL 1.6-2.6 627) BASIC METABOLIC [id number] 06:56:00 Test Item Value Reference Range Interpretation [...] APPLICABLE FOR DIALYSIS PATIEN TS. HEPATIC FUNCTION [id number] 06:56:00 Test Item Value Reference Range Interpretation [...] code = 10 U/L 6-55 347) CALCIUM, [id number] 06:36:00 Test Item Value Reference Range Interpretation Comments CALCIUM IONIZED (BEAKER) (test 1.05 mmol/L 1.12-1.27 L code = 698) PH, BLOOD (BEAKER) (test code = 7.46 1810) PROTHROMBIN [id number] 06:35:00 Test Item Value Reference Range Interpretation [...] PERCENT (BEAKER) (test code = 2801) TISSUE [id number] 14:52:00Surgical Pathology Report Case: [id number] Authorizing Provider: Ricardo Wilson MD Collected: 08/02/2017 1715 Ordering Location: [facility] Endoscopy Received: 08/03/2017 0837 Services Pathologist: Larry Cohn MD Specimen: Rectal, MASS- TAKEN BY ESD, ON WAX, EVALUATE MARGINS RECTAL, 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 PROTHROMBIN [id number] 05:59:00 Test Item Value Reference Range Interpretation Comments PROTIME (BEAKER) (test code = 14.6 seconds 11.7-14.7 759) INR (BEAKER) (test code = 370) 1.1 <=5.9 RECOMMENDED COUMADIN/WARFARIN INR THERAPY RANGESSTANDARD DOSE: 2.0 - 3.0 Includes: PROPHYLAXIS forvenous thrombosis, systemic embolization; TREATMENT for venous thrombosis and/or pulmonary embolus.HIGH RISK: Target INR is 2.5-3.5 for patients with mechanical heart valves.URINALYSIS W/ [id number] 14:53:00 Test Item Value Reference Range Interpretation [...] 2 /LPF 514) SOURCE(BEAKER) (test code = 2795) HEPATIC FUNCTION [id number] 06:31:00 Test Item Value Reference Range Interpretation [...] = 15 U/L 6-55 347) BASIC METABOLIC [id number] 06:31:00 Test Item Value Reference Range Interpretation [...] APPLICABLE FOR DIALYSIS PATIEN TS. BASIC METABOLIC [id number] 06:30:00 Test Item Value Reference Range Interpretation [...] PATIEN TS. CBC W/PLT COUNT & AUTO [id number] 06:25:00 Test Item Value Reference Range Interpretation [...] PERCENT (BEAKER) (test code = 2801) PROTHROMBIN [id number] 06:21:00 Test Item Value Reference Range Interpretation [...]
[2019-10-03 12:47] LABS: Absolute Lymphocytes (CBC) 3.9 K/uL (0.7-4.9); Basophils % 0.5 % (0-1.3); Hematocrit 36.1 % (36.0-45.0); Lymphocytes % 36.8 % (15.3-44.8); MPV 7.1 fL (7.6-11.3)
[2019-10-03 12:54] LABS: Protime INR 0.88
[2019-10-03 13:08] LABS: ALT/SGPT 21 U/L (12-78); AST/SGOT 19 U/L (15-37); Albumin 3.2 g/dL (3.4-5.0); Alkaline Phosphatase 65 U/L (45-117); BUN Blood Urea Nitrogen 11 mg/dL (7-18); Bicarbonate 28 mmol/L (21-32); Bilirubin Direct 0.3 mg/dL (0-0.2); Bilirubin Total 1.1 mg/dL (0.2-1.0); Ferritin 18.9 ng/mL (8-388); Glucose Level 85 mg/dL (74-106); Lipase 171 U/L (73-393); Potassium 3.8 mmol/L (3.5-5.1); Protein, Total 6.7 g/dL (6.4-8.2); Sodium Level 134 mmol/L (136-145); Troponin (Emerg Dept Use Only) < 0.02 ng/mL (0.0-0.045)
[2019-10-03 13:10] LABS: C-Reactive Protein < 2.90 mg/L (<3.00)
--- NOTE | 2019-10-03 13:49 | RAD REPORT ---
EXAM DESCRIPTION: CT - Head Brain Wo Cont - 10/03/2019 1:39 pm CLINICAL HISTORY: Alteration of awareness/confusion COMPARISON: 1999 TECHNIQUE: Computed axial tomography of the head was obtained. IV contrast was not requested. All CT scans are performed using dose optimization technique as appropriate and may include automated exposure control or mA/KV adjustment according to patient size. FINDINGS: An intracranial bleed is not seen . The ventricles are normal in caliber. No extra-axial fluid collection is noted. Small to moderate area of low-density within the right frontal lobe likely gliosis secondary to old i nfarction. Fluid within the sinuses/ mastoids is not seen. IMPRESSION: No acute intracranial abnormality is seen. If patient's symptoms persist MRI of the bra in would be recommended.
--- NOTE | 2019-10-03 13:55 | RAD REPORT ---
EXAM DESCRIPTION: CT - Chest For Pe Angio - 10/03/2019 1:39 pm CLINICAL HISTORY: Chest pain COMPARISON: March 2019 TECHNIQUE: Dynamically enhanced axial 3 mm thick images of the chest were obtained during administra tion of <100> mL Isovue 370 IV contrast. Coronal and oblique reconstruction images were generated and reviewed. Exam utilizes a protocol for optimal evaluation of pulmonary arterial tree. Maximum intensity projections 3D imaging was utilized All CT scans are performed using dose optimization technique as appropriate and may include automated exposure control or mA/KV adjustment according to patient size. FINDINGS: A pulmonary embolus is not seen. A thoracic aortic aneurysm is not noted. A pleural effusion is not seen. A pericardial effusion is not seen. Mild tree-in-bud opacities right lower lobe. 12 millimeter right thyroid nodule IMPRESSION: Negative for a pulmonary embolism. Mild tree-in-bud opacities right lower lobe may indicate an atypical pneumonia
--- NOTE | 2019-10-03 14:10 | RAD REPORT ---
EXAM DESCRIPTION: CT - Abdomen Pelvis W Contrast - 10/03/2019 1:39 pm CLINICAL HISTORY: Abdominal pain COMPARISON: March 2019 TECHNIQUE: Computed axial tomography of the abdomen pelvis was obtained. 100 cc Isovue-300 was admin istered intravenously. Oral contrast was not requested which limits evaluation of bowel. All CT scans are performed using dose optimization technique as appropriate and may include automated exposure control or mA/KV adjustment according to patient size. FINDINGS: The liver, spleen, pancreas, adrenal and kidneys appear unremarkable. There is no evidence of diverticulitis. A Raines catheter within the bladder. Cement has been placed into an L3 vertebral fracture. The cement extends posterior to the posterior v ertebral body abutting the anterior aspect of thecal sac. Cement also extends into the L3-4 disc spac e. Cholecystectomy A moderate amount stool within the colon IMPRESSION: Cement has been placed into an L3 vertebral fracture. The cement extends posterior to th e posterior vertebral body abutting the anterior aspect of thecal sac. Cement also extends into the L 3-4 disc space.
--- NOTE | 2019-10-03 14:13 | RAD REPORT ---
EXAM DESCRIPTION: Asaf Single View10/03/2019 1:12 pm CLINICAL HISTORY: Fever COMPARISON: July 2019 FINDINGS: The lungs appear clear of acute infiltrate. The heart is normal size IMPRESSION: No acute abnormalities displayed
[2019-10-03] MEDS ORDERED: dexAMETHasone 10 MG/ML VIAL ONE (14:19)
[2019-10-03] MEDS ORDERED: CEFTRIAXONE/SWI 1gm 1 GM/10 ML SYR ONE (14:19)
--- NOTE | 2019-10-03 14:55 | EDPHYS ---
Physician Documentation [facility] Name: Elva Jenkins Age: 89 yrs Sex: Female : 1930 Arrival Date: 10/03/2019 Time: 11:47 Bed 7 Private MD: ED Physician Kyle Darby HPI: 10/02 13:23 This 89 yrs old Female presents to ER via EMS with complaints of Altered rn Mental Status. 13:23 The patient presents with confusion. Onset: The symptoms/episode began/occurred at an rn unknown time. Associated signs and symptoms: Pertinent positives: confusion, fever. 13:24 Possible causes: unknown. Current symptoms: In the emergency department the patient's rn symptoms are unchanged from the initial presentation. It is unknown whether or not the patient has had similar symptoms in the past. Per EMS, noticed AMS this morning, but unsure when onset truly was, report fever and confusion, not at baseline, patient states hurts everywhere, but seems confused and unreliable. . Historical: - Allergies: 12:37 Asacol; sv 12:37 Aspirin; sv 12:37 Humira; sv 12:37 Methotrexate; sv 12:37 Orencia; sv 12:37 Phenergan; sv 12:37 Sulfazine; sv - PMHx: 12:37 Arthritis; COPD; Depression; GERD; Hyperlipidemia; Hypothyroidism; sv - PSHx: 12:37 Hysterectomy; sv - Immunization history:: Adult Immunizations unknown. - Family history:: not pertinent. - Social history:: Smoking status: unknown. - Hospitalizations: : No recent hospitalization is reported. ROS: 13:24 Unable to obtain ROS due to altered mental status. rn 13:25 Constitutional: + fever Eyes: Negative for injury, pain, redness, and discharge, Neck: rn Negative for injury, pain, and swelling, Cardiovascular: Negative for chest pain, palpitations, and edema, Respiratory: Negative for shortness of breath, cough, wheezing, and pleuritic chest pain, Abdomen/GI: Negative for nausea, vomiting, diarrhea, and constipation, MS/Extremity: Negative for injury and deformity, Skin: Negative for injury, rash, and discoloration, Neuro: Negative for headache, weakness, numbness, tingling, and seizure. Exam: 13:24 Constitutional: Thin female, seems frustrated, no acute distress rn 13:25 Head/Face: Normocephalic, atraumatic. ENT: dry MM Neck: Supple, full range of motion rn without nuchal rigidity, or vertebral point tenderness. No Meningismus. Cardiovascular: Regular rate and rhythm with a normal S1 and S2. No gallops, murmurs, or rubs. Normal PMI, no JVD. No pulse deficits. Respiratory: Mild tachypnea, no retractions Abdomen/GI: soft, mild mid abd tenderness Skin: Warm, dry MS/ Extremity: Pulses equal, no cyanosis. Neuro: Awake and alert, confused but follows commands, moves all 4 extremities, no facial droop. 14:43 ECG was reviewed by the Attending Physician. rn Vital Signs: 12:24 BP 153 / 92; Pulse 103; Resp 20; Temp 99.9(TE); Pulse Ox 98% ; sv 13:00 BP 150 / 71; Pulse 95; Resp 22; Pulse Ox 100% ; sv 13:15 Pulse Ox 82% on R/A; sv 13:51 BP 172 / 81; Pulse 70; Resp 22; Pulse Ox 96% on 4 lpm NC; sv 15:19 BP 167 / 94; Pulse 87; Resp 22; Pulse Ox 100% on 3 lpm NC; sv 13:15 Pt placed on O2 \T\ 4L per NC. O2 sat up to 99%. sv MDM: 11:47 Patient medically screened. rn 14:46 Differential Diagnosis: electrolyte abnormality, pneumonia, sepsis, TIA, UTI, volume rn depletion, COVID, FLU. Data reviewed: vital signs, nurses notes, lab test result(s), radiologic studies, CT scan, plain films, and as a result, I will admit patient. Counseling: I had a detailed discussion with the patient and/or guardian regarding: the historical points, exam findings, and any diagnostic results supporting the discharge/admit diagnosis, lab results, radiology results, the need for further work-up and treatment in the hospital. Response to treatment: the patient's symptoms have mildly improved after treatment, and as a result, I will admit patient. Admission orders: after a detailed discussion of the patient's condition and case, the admit orders are written by me. ED course: Admitted to Dr. Pollock for pneumonia, Flu B, possible COVID, delirium, and AMS. Updated son with results. . 10/02 11:52 Order name: Blood Culture Adult (2) rn 10/02 11:52 Order name: BMP rn 10/02 11:52 Order name: C-Reactive Protein 10/02 11:52 Order name: CBC with Diff 10/02 11:52 Order name: COVID-19 10/02 11:52 Order name: D-Dimer 10/02 11:52 Order name: Ferritin 10/02 11:52 Order name: Flu rn 10/02 11:52 Order name: Lactate 10/02 11:52 Order name: LFT's 10/02 11:52 Order name: Lipase 10/02 11:52 Order name: Procalcitonin 10/02 11:53 Order name: PT-INR 10/02 11:53 Order name: Ptt, Activated; Complete Time: 13:09 10/02 11:53 Order name: Strep; Complete Time: 14:21 10/02 11:53 Order name: Troponin (emerg Dept Use Only); Complete Time: 13:11 10/02 11:53 Order name: Urine Microscopic Only 10/02 11:53 Order name: Urine Culture 10/02 11:53 Order name: Blood Culture [facility] 10/02 11:53 Order name: Basic Metabolic Panel; Complete Time: 13:11 [facility] 10/02 11:53 Order name: C-Reactive Protein; Complete Time: 13:11 [facility] 10/02 11:54 Order name: CBC with Automated Diff; Complete Time: 13:09 [facility] 10/02 11:54 Order name: [facility] 10/02 11:54 Order name: D-Dimer; Complete Time: 13:57 [facility] 10/02 11:54 Order name: Ferritin; Complete Time: 13:11 [facility] 10/02 11:54 Order name: Influenza Screen (A ; Complete Time: 14:21 [facility] 10/02 11:54 Order name: Lactate; Complete Time: 13:09 [facility] 10/02 11:54 Order name: Liver (Hepatic) Function; Complete Time: 13:11 [facility] 10/02 11:54 Order name: Lipase; Complete Time: 13:11 [facility] 10/02 11:54 Order name: Procalcitonin; Complete Time: 13:57 [facility] 10/02 11:53 Order name: CXR XRAY; Complete Time: 14:21 rn 10/02 11:53 Order name: EKG; Complete Time: 11:54 rn 10/02 11:53 Order name: Cardiac monitoring; Complete Time: 13:13 rn 10/02 11:53 Order name: Droplet/Contact Precautions; Complete Time: 12:35 rn 10/02 11:53 Order name: EKG - Nurse/Tech; Complete Time: 13:13 rn 10/02 11:53 Order name: IV Start; Complete Time: 12:35 rn 10/02 11:53 Order name: Labs collected and sent; Complete Time: 12:35 rn 10/02 11:53 Order name: O2 Per Protocol; Complete Time: 12:35 rn 10/02 11:53 Order name: O2 Sat Monitoring; Complete Time: 12:36 rn 10/02 11:53 Order name: Urine Dipstick-Ancillary (obtain specimen); Complete Time: 13:13 rn 10/02 11:54 Order name: Protime (+INR); Complete Time: 13:09 EDMS 10/02 13:11 Order name: CT Head Brain wo Cont; Complete Time: 13:57 rn 10/02 13:14 Order name: CT Chest For PE Angio; Complete Time: 13:57 rn 10/02 13:14 Order name: CT Abd/Pelvis - IV Contrast Only; Complete Time: 14:21 rn 10/02 14:17 Order name: Urine Dipstick--Ancillary (enter results) bd 10/02 14:17 Order name: Throat Culture EDMS EC:43 Rate is 94 beats/min. Rhythm is regular. QRS [place] is Normal. OK interval is normal. QRS rn interval is normal. QT interval is normal. No Q waves. T waves are Normal. No ST changes noted. Clinical impression: NSR w/ Non-specific ST/T Changes. Interpreted by me. Reviewed by me. Administered Medications: 15:13 Drug: Decadron - Dexamethasone 10 mg Route: IVP; Site: right antecubital; sv 15:26 Follow up: Response: No adverse reaction sv 15:15 Drug: Rocephin 1 grams Route: IV; Rate: calculated rate; Site: right antecubital; sv 15:18 Follow up: Response: No adverse reaction; IV Status: Completed infusion; IV Intake: 10mlsv 15:17 Drug: Tamiflu 75 mg Route: PO; sv 15:26 Follow up: Response: No adverse reaction sv 15:18 Drug: Zithromax 500 mg Route: IVPB; Infused Over: 1 hrs; Site: right antecubital; sv 16:03 Follow up: Response: No adverse reaction; IV Status: Infusion continued upon admission sv Disposition: 10/03/19 14:54 Hospitalization ordered by Bharti Pollock for Inpatient Admission. Preliminary diagnosis are Pneumonia, unspecified organism, Influenza due to other identified influenza virus, Altered mental status, unspecified, Delirium due to known physiological condition. - Bed requested for Telemetry/MedSurg (Inpatient). - Status is Inpatient Admission. sv - Condition is Stable. - Problem is new. - Symptoms are unchanged. Signatures: Dispatcher [employer] EDMD Phyllis Iniguez RN RN kl Verde, Stephanie, RN RN sv Nieto, Roman, MD MD overnight stocker: (The following items were deleted from the chart) 13:15 13:11 Chest Abdomen Pelvis W Con+CT.RAD.BRZ ordered. [facility] 15:09 14:54 Hospitalization Ordered by A Maris PALOMARES for Inpatient Admission. Preliminary diagnosis is Pneumonia, unspecified organism; Influenza due to other identified influenza virus; Altered mental status, unspecified; Delirium due to known physiological condition. Bed requested for Telemetry/MedSurg (Inpatient). Status is Inpatient Admission. Condition is Stable. Problem is new. Symptoms are unchanged. rn 16:03 15:09 10/03/2019 14:54 Hospitalization Ordered by A Maris PALOMARES for Inpatient Admission. sv Preliminary diagnosis is Pneumonia, unspecified organism; Influenza due to other identified influenza virus; Altered mental status, unspecified; Delirium due to known physiological condition. Bed requested for Telemetry/MedSurg (Inpatient). Status is Inpatient Admission. Condition is Stable. Problem is new. Symptoms are unchanged. kl
--- NOTE | 2019-10-03 14:55 | ER ---
Nurse's Notes [facility] Name: Elva Jenkins Age: 89 yrs Sex: Female : 1930 Arrival Date: 10/03/2019 Time: 11:47 Bed 7 Private MD: Diagnosis: Pneumonia, unspecified organism;Influenza due to other identified influenza virus;Altered mental status, unspecified;Delirium due to known physiological condition Presentation: 10/02 12:00 Chief complaint: EMS states: AMS that started today. EMS informed by spouse that last sv known well was about 0800 today but is a poor historian. Pt is normally A\T\Ox4, she lives at [facility]. BS-84 20G R AC [id number]. Onset of symptoms was October 03, 2019. 12:00 Method Of Arrival: EMS: [facility] sv 12:00 Acuity: TAVON 2 sv 12:24 Initial Sepsis Screen: Does the patient meet any 2 criteria? HR > 90 bpm. No. Patient's sv initial sepsis screen is negative. Does the patient have a suspected source of infection? No. Patient's initial sepsis screen is negative. Risk Assessment: Do you want to hurt yourself or someone else? Patient reports no desire to harm self or others. 12:59 Coronavirus screen: Patient reports a measured and/or subjective temperature greater sv than 100.4F. Patient instructed to continue to wear a mask when interacting with others. Patient moved to private room, placed in contact and droplet isolation with eye protection until further assessment. Pt unable to answer the questions. EMS got a temp of 100.5. Ebola Screen: Unable to complete the Ebola screening because: The patient is disoriented. Triage Assessment: 12:00 General: Appears in no apparent distress. comfortable, Behavior is calm, cooperative, sv appropriate for age. Pain: Denies pain. Neuro: Level of Consciousness is awake, alert, obeys commands, confused, Oriented to person. Respiratory: Airway is patent Respiratory effort is even, unlabored, Respiratory pattern is regular, symmetrical. Derm: Skin is normal. Historical: - Allergies: 12:37 Asacol; sv 12:37 Aspirin; sv 12:37 Humira; sv 12:37 Methotrexate; sv 12:37 Orencia; sv 12:37 Phenergan; sv 12:37 Sulfazine; sv - PMHx: 12:37 Arthritis; COPD; Depression; GERD; Hyperlipidemia; Hypothyroidism; sv - PSHx: 12:37 Hysterectomy; sv - Immunization history:: Adult Immunizations unknown. - Family history:: not pertinent. - Social history:: Smoking status: unknown. - Hospitalizations: : No recent hospitalization is reported. Screenin:37 Abuse screen: Denies threats or abuse. Denies injuries from another. Nutritional sv screening: No deficits noted. Tuberculosis screening: No symptoms or risk factors identified. Fall Risk No fall in past 12 months (0 pts). Secondary diagnosis (15 points) AMS. IV access (20 points). Ambulatory Aid- None/Bed Rest/Nurse Assist (0 pts). Gait- Normal/Bed Rest/Wheelchair (0 pts) Mental Status- Overestimates/Forgets Limitations (15 pts.). Total Hutchinson Fall Scale indicates High Risk Score (45 or more points). Fall prevention measures have been instituted. Side Rails Up X 2 Placed Close to Nursing Station Frequent Obs/Assessments Occuring As available patient and family educated on Fall Prevention Program and Strategies. Assessment: 12:30 Reassessment: Patient appears in no apparent distress at this time. No changes from sv previously documented assessment. 13:40 Reassessment: Patient appears in no apparent distress at this time. No changes from sv previously documented assessment. Patient and/or family updated on plan of care and expected duration. Pain level reassessed. 15:32 Reassessment: Patient appears in no apparent distress at this time. No changes from sv previously documented assessment. Patient and/or family updated on plan of care and expected duration. Pain level reassessed. Vital Signs: 12:24 BP 153 / 92; Pulse 103; Resp 20; Temp 99.9(TE); Pulse Ox 98% ; sv 13:00 BP 150 / 71; Pulse 95; Resp 22; Pulse Ox 100% ; sv 13:15 Pulse Ox 82% on R/A; sv 13:51 BP 172 / 81; Pulse 70; Resp 22; Pulse Ox 96% on 4 lpm NC; sv 15:19 BP 167 / 94; Pulse 87; Resp 22; Pulse Ox 100% on 3 lpm NC; sv 13:15 Pt placed on O2 \T\ 4L per NC. O2 sat up to 99%. sv ED Course: 11:47 Patient arrived in ED. rn 11:47 Kyle Darby MD is Attending Physician. rn 12:00 Marylu Chris, GUME is Primary Nurse. sv 12:02 Triage completed. sv 12:10 Arm band placed on. sv 12:20 Patient has correct armband on for positive identification. Placed in gown. Bed in low sv position. Call light in reach. Side rails up X2. monitor car operator on. Pulse ox on. NIBP on. Door closed. Head of bed elevated. 12:30 Initial lab(s) drawn, by me, sent to lab. First set of blood cultures drawn by me. dh3 Inserted saline lock: 22 gauge in left antecubital area, using aseptic technique. Blood collected. 12:35 Second set of blood cultures drawn by md. dh3 12:48 EKG done, by ED staff, reviewed by Kyle Darby MD. dh3 12:57 Urine collected:. Raines cath inserted, using sterile technique, 16 Fr., returned clear dh3 yellow urine. Patient tolerated well. 13:13 CXR XRAY In Process Unspecified. EDMS 13:35 CT Head Brain wo Cont In Process Unspecified. EDMS 13:39 CT Chest For PE Angio In Process Unspecified. EDMS 13:39 CT Abd/Pelvis - IV Contrast Only In Process Unspecified. EDMS 14:48 Bharti Pollock MD is Hospitalizing Provider. rn 15:31 No provider procedures requiring assistance completed. Patient admitted, IV remains in sv place. intact. Administered Medications: 15:13 Drug: Decadron - Dexamethasone 10 mg Route: IVP; Site: right antecubital; sv 15:26 Follow up: Response: No adverse reaction sv 15:15 Drug: Rocephin 1 grams Route: IV; Rate: calculated rate; Site: right antecubital; sv 15:18 Follow up: Response: No adverse reaction; IV Status: Completed infusion; IV Intake: 10mlsv 15:17 Drug: Tamiflu 75 mg Route: PO; sv 15:26 Follow up: Response: No adverse reaction sv 15:18 Drug: Zithromax 500 mg Route: IVPB; Infused Over: 1 hrs; Site: right antecubital; sv 16:03 Follow up: Response: No adverse reaction; IV Status: Infusion continued upon admission sv Intake: 15:18 IV: 10ml; Total: 10ml. sv Outcome: 14:54 Decision to Hospitalize by Provider. rn 15:31 Admitted to Tele accompanied by tech, via stretcher, room 403, with oxygen, with chart, sv Report called to Shanae DUNAWAY 15:31 Condition: stable 15:31 Instructed on the need for admit. 16:03 Patient left the ED. sv Signatures: Dispatcher [employer] Marylu Lizama RN RN sv Nieto, Roman, MD MD rn Herrera, Noemi [facility] Corrections: (The following items were deleted from the chart) 12:41 12:24 BP 153 / 92; Pulse 103bpm; Resp 20bpm; Pulse Ox 98%; sv sv 13:00 12:00 Chief complaint: EMS states: AMS that started today. EMS informed by spouse that sv last known well was about 0800 today but is a poor historian. Pt is normally A\T\Ox4, she lives at [facility]. BS-84 HR-90s-110s. sv 13:53 13:51 BP 172 / 81; Pulse 96bpm; Resp 22bpm; Pulse Ox 96% 4 lpm Nasal Cannula; sv sv
[2019-10-03] MEDS ORDERED: AZITHROMYCIN IV 500 MG in NA CHLORIDE 0.9% 250 ML IVPB ONE (15:00)
[2019-10-03] MEDS ORDERED: OSELTAMIVIR PHOSPHATE 30 MG/5 ML SUSPENSION UD PO ONE (15:00)
[2019-10-03 15:26] LABS: Urine Bacteria <20 /HPF (<20); Urine Culture Reflex Order NOT NEEDED; Urine RBC <5 /HPF (NONE SEEN)
[2019-10-03] MEDS ORDERED: ONDANSETRON 4 MG/2 ML VIAL IV PRN (16:18)
[2019-10-03] MEDS ORDERED: IPRATROPIUM BROM 0.5MG/2.5ML NEB PRN (16:18)
[2019-10-03] MEDS ORDERED: ALBUTEROL 2.5 MG/3 ML NEB SOL NEB PRN (16:18)
[2019-10-03] MEDS ORDERED: ACETAMINOPHEN 500 MG TAB PO PRN (16:18)
[2019-10-03 17:00] VITALS: BMI 24.0
[2019-10-03] MEDS ORDERED: ACETAMINOPHEN 160 MG/5 ML UCUP PO PRN (17:00)
[2019-10-03] MEDS: METHYLPREDNISOLONE 40 MG INJ IV SCH (17:33)
[2019-10-03] MEDS: CEFTRIAXONE/SWI 1gm 1 GM/10 ML SYR IVP SCH (20:18)
[2019-10-03] MEDS: OSELTAMIVIR PHOSPHATE 30 MG/5 ML SUSPENSION UD PO SCH (20:18)
[2019-10-04] MEDS: METHYLPREDNISOLONE 40 MG INJ IV SCH ×4 (00:14→18:18)
[2019-10-04 03:55] LABS: Absolute Lymphocytes (CBC) 1.3 K/uL (0.7-4.9); Basophils % 0.2 % (0-1.3); Hematocrit 34.5 % (36.0-45.0); Lymphocytes % 28.6 % (15.3-44.8); MPV 7.3 fL (7.6-11.3); RBC Red Blood Cell Count 3.87 M/uL (3.86-4.86)
[2019-10-04 04:17] LABS: Potassium 3.7 mmol/L (3.5-5.1)
--- NOTE | 2019-10-04 07:25 | EKG ---
Test Date: 2019-10-03 Test Time: 12:48:47 Resident Care Supervisor: SHANNON MEASUREMENT RESULTS: Intervals: Rate: 94 MD: 140 QRSD: 66 QT: 346 QTc: 432 [place]: P: 67 MD: 140 QRS: -3 T: 42 INTERPRETIVE STATEMENTS: Normal sinus rhythm Possible Left atrial enlargement Borderline ECG Compared to ECG 08/01/2019 15:20:58 Ventricular premature complex(es) no longer present Electronically Signed On 10-04-19 07:24:56 CDT by Kel Ro
[2019-10-04] MEDS: AZITHROMYCIN IV 250 MG in NA CHLORIDE 0.9% 250 ML IVPB SCH (09:11)
[2019-10-04] MEDS: ENOXAPARIN 30 MG/0.3 ML SQ SCH (09:11)
[2019-10-04] MEDS: PARoxetine HCL 10 MG TAB PO SCH (09:11)
[2019-10-04] MEDS: CEFTRIAXONE/SWI 1gm 1 GM/10 ML SYR IVP SCH ×2 (09:12→20:23)
[2019-10-04] MEDS: DOCUSATE NA 100 MG CAP PO SCH (09:12)
[2019-10-04] MEDS: FUROSEMIDE 40 MG TABLET PO SCH ×2 (09:12→18:18)
[2019-10-04] MEDS: OSELTAMIVIR PHOSPHATE 30 MG/5 ML SUSPENSION UD PO SCH (09:12)
[2019-10-04] MEDS ORDERED: ACETAMINOPHEN 500 MG TAB PO PRN (14:19)
[2019-10-04] MEDS: OSELTAMIVIR 75 MG CAP PO SCH (20:24)
[2019-10-04] MEDS ORDERED: PANTOPRAZOLE 40MG TABLET PO SCH (21:00)
[2019-10-04] MEDS ORDERED: ATORVASTATIN 40 MG TAB PO SCH (21:00)
[2019-10-05] MEDS: METHYLPREDNISOLONE 40 MG INJ IV SCH ×3 (00:26→12:54)
[2019-10-05 01:24] VITALS: O2SAT 98
--- NOTE | 2019-10-05 01:42 | HP ---
Date of Admission: 10/04/2019 Chief Complaint: Fever and confusion. History Of Present Illness: An 89-year-old female, who lives at [facility], started to have some fever and confusion yesterday, so she was brought into the emergency room. She was admitted to the hospital with pneumonia. This morning when I saw her, she was in isolation as her COVID-19 test result was pending and subsequently results came back negative. The patient denies any expectoration. Her confusion had cleared up this morning and she is back to her normal self. Denies any vomiting or diarrhea. Medications: List reviewed. Review of Systems: Constitutional: As mentioned above. SNELLER HAND: As mentioned above. All other systems reviewed and negative. Allergies: SULFA CAUSING HEADACHE, RITUXIMAB CAUSING SWELLING OF THE LEGS, PROMETHAZINE CAUSING HALLUCINATION AND ARM JERKING, METHOTREXATE CAUSING DYSPNEA, MESALAMINE CAUSING SORE THROAT AND HIVES, ADALIMUMAB CAUSING FACE SWELLING, AND ABATACEPT CAUSING JOINT PAIN. Past Surgical History: Hysterectomy, appendectomy, cholecystectomy, cataract surgery, removal of benign rectal mass on August 02, 2017 in [place]. Social History: Negative for smoking or alcohol use. Family History: Significant for hypertension and stroke. Parents of old age at 99 and 95 years. Past Medical History: Lymphedema of legs, hypertension, hypothyroidism, COPD, chronic steroid therapy, rheumatoid arthritis, chronic leg swelling, hemorrhoids, Clostridium difficile colitis, DVT of leg, pulmonary embolism diagnosed in August 2017, compression fracture of spine, for which she had surgery done in form of kyphoplasty. Physical Examination: Vital Signs: Temperature 99.6, pulse 94, respiratory rate 16, blood pressure 127/68, oxygen saturation 94%. Height 4 feet 11 inches, weight 119 pounds. General: Awake, alert, oriented, not in distress. HEENT: Head atraumatic, normocephalic. Conjunctivae nonerythematous. Sclerae white. Mouth, no thrush or edema noted. Ears/Nose, no mass, lesion, discharge noted. Neck: Supple. No JVD, lymph nodes, bruit, thyromegaly noted. Lungs: Bilateral good equal air entry. Clear to auscultation. No rhonchi. No rales. Heart: Normal heart sounds. No murmur or gallop. Abdomen: Soft. Bowel sounds normal. No guarding, rigidity, tenderness, mass, hepatosplenomegaly, distention, or bruit noted. Extremities: Trace leg edema. No calf tenderness. Skin: No rash, ulcer, cellulitis. Lymphatics: No lymph node enlargement in neck, supraclavicular, infraclavicular region. Neuro: No focal neurological deficit. Chest: Unremarkable. External Genitalia: Deferred. Rectal: Deferred. Laboratory Data: Yesterday, white count 10.6, hemoglobin 12.3, and platelet count 286. This morning, white count 4.4, hemoglobin 11.7, platelets 262. Yesterday, sodium 134, potassium 3.8, chloride 100, bicarb 28, BUN 11, creatinine 0.68, glucose 85. Liver function tests unremarkable. Lipase 171. Procalcitonin less than 0.05. This morning, sodium 136, potassium 3.7, chloride 103, bicarb 26, BUN 14, creatinine 0.63, glucose 140. Urinalysis negative. Chest x-ray, no acute cardiopulmonary changes. CAT scan of the head, no acute intracranial changes. CAT scan of abdomen and pelvis shows status post kyphoplasty changes involving L3 spine and the cement that was placed in L3 extends posterior to the posterior vertebral body abutting anterior aspect of the thecal sac, cement also extends into L3-4 disk space. CAT scan of the chest per PE protocol negative for pulmonary embolism and shows evidence of pneumonia in the right lower lobe. Impression: 1. Pneumonia. 2. Altered mental status secondary to above. 3. Toxic encephalopathy secondary to pneumonia. 4. Hypertension. 5. Lymphedema, legs. 6. Hypothyroidism. 7. Chronic obstructive pulmonary disease. 8. Chronic steroid therapy. 9. Rheumatoid arthritis. Plan: We will admit the patient to hospital for further evaluation and management of this problem. The patient is appropriate for inpatient and is expected to spend 2 midnights in the hospital. The patient's influenza B test came back positive, done in emergency room, and she is on Tamiflu. We will continue empiric antibiotics per order. IV steroids, nebulizer treatment, oxygen will be given. Home medications will be continued per order. DVT prophylaxis was ordered using Lovenox and I will see her tomorrow for followup. ARNOL/MODL Voice ID: [id number]
[2019-10-05] MEDS ORDERED: LEVOTHYROXINE SOD 0.05 MG TABLET PO SCH (06:00)
[2019-10-05] MEDS: CEFTRIAXONE/SWI 1gm 1 GM/10 ML SYR IVP SCH (09:18)
[2019-10-05] MEDS: ENOXAPARIN 30 MG/0.3 ML SQ SCH (09:19)
[2019-10-05] MEDS: DOCUSATE NA 100 MG CAP PO SCH (09:19)
[2019-10-05] MEDS: OSELTAMIVIR 75 MG CAP PO SCH (09:19)
[2019-10-05] MEDS: PARoxetine HCL 10 MG TAB PO SCH (09:19)
[2019-10-05] MEDS: FUROSEMIDE 40 MG TABLET PO SCH (09:22)
[2019-10-05 09:23] VITALS: BP 175/77
[2019-10-05] MEDS: AZITHROMYCIN IV 250 MG in NA CHLORIDE 0.9% 250 ML IVPB SCH (10:07)
[2019-10-05 10:08] VITALS: TEMP 97.9
--- NOTE | 2019-10-05 12:08 | DS ---
Date of Discharge: 10/05/2019 Disposition: Discharged to go to [facility]. Physical Examination: HEENT: Unremarkable. Lungs: Clear to auscultation. Heart: Sounds normal. Abdomen: Soft. Bowel sounds normal. No guarding, rigidity, tenderness, distention. Extremities: Trace leg edema, unchanged. Laboratory Data: Upon admission, white count 10.6, hemoglobin 12.3, platelets 286. Yesterday, white count 4.4, hemoglobin 11.7, platelets 262. Upon admission, sodium 134, potassium 3.8, chloride 100, bicarb 28, BUN 11, creatinine 0.68, glucose 85. Liver function tests unremarkable. Procalcitonin l ess than 0.05. Yesterday; sodium 136, potassium 3.7, chloride 103, bicarb 26, BUN 14, creatinine 0.6 3, glucose 140. Hospital Course: An 89-year-old female patient admitted to the hospital with fever and confusion. P elder see dictated H and P for more information. The patient came into emergency room, was evaluated , admitted to the hospital with pneumonia and influenza B. She was given Tamiflu and IV antibiotics. Other home medications were continued. Overall, her condition is improved. She is feeling much be tter, back to her normal self. No more confusion. She has remained afebrile now. Has a good appeti te. No respiratory complaints and today she was discharged in stable condition. Nurse was advised t o contact [facility] to notify that the patient has influenza B and pneumonia and if she can come b ack and nurses contacted [facility] per my request, and [facility] is willing to accept her. Final Diagnoses: 1.Pneumonia. 2.Influenza B with respiratory manifestation. 3.Altered mental status secondary to above. 4.Toxic encephalopathy secondary to above. 5.Hypertension. 6.Lymphedema, legs. 7.Hypothyroidism. 8.Chronic obstructive pulmonary disease. 9.Chronic steroid therapy. Discharge Medications And Instructions: Continue all prior home medication. 1.Tamiflu 75 mg p.o. b.i.d. for 3 days as the patient has already taken 2 days of therapy in the [facility] pital. 2.Azithromycin 250 mg. 3.Cefuroxime 250 mg p.o. b.i.d. for 7 days. 4.Continue all prior home medications. ARNOL/MODL Voice ID: [id number] Report ID: [id number]
== END 2019-10-05 14:20 | disposition home health service (06) | DRG 193 ==
LOC: ER 11:37 → ERHOLD 14:57 → 4TH 15:25 → 2ND 10-04 13:13
PROVIDERS: ADMIT Internal Medicine; ATTEND Internal Medicine
PROC: 8E0ZXY6 Isolation (ICD-10-PCS; principal; 2019-10-03)
DX: J10.00 Influenza due to other identified influenza virus with unspecified type of pneumonia (principal); G92 Toxic encephalopathy; J44.0 Chronic obstructive pulmonary disease with (acute) lower respiratory infection; I10 Essential (primary) hypertension; K21.9 Gastro-esophageal reflux disease without esophagitis; I89.0 Lymphedema, not elsewhere classified; M06.9 Rheumatoid arthritis, unspecified; E03.9 Hypothyroidism, unspecified; R50.9 Fever, unspecified; Z88.1 Allergy status to other antibiotic agents; Z20.828 Contact with and (suspected) exposure to other viral communicable diseases; Z88.8 Allergy status to other drugs, medicaments and biological substances; Z79.890 Hormone replacement therapy; Z90.710 Acquired absence of both cervix and uterus; Z90.49 Acquired absence of other specified parts of digestive tract; Z86.718 Personal history of other venous thrombosis and embolism; Z86.711 Personal history of pulmonary embolism
CPT/HCPCS: 36415; 51702; 70450; 71045; 71275; 74177; 80048; 80076; 81015; 82728; 83605; 83690; 84145; 84484; 85025; 85379; 85610; 85730; 86140; 87040; 87070; 87081; 87086; 87088; 87804; 93005; 94760; 96365; 96375; 99285; J0456; J0696; J1100; J1650; J2920; J7050; Q9967; U0002

== ENCOUNTER 2020-05-19 09:47 | Observation (INO) | payer OTHER ==
--- OUTSIDE RECORDS SUMMARY | 2020-05-19 09:52 | XMS REPORT | Continuity of Care Document ---
:1930 Author Organization [facility] t Address [address] [place] [address] Care Team Providers Name Role Phone Fidencio Pollock MD Primary Care Physician Singer PEDRO Attending Clinician Matthew Crane MD Attending Clinician Sherrie BENTLEY Attending Clinician Doctor Unassigned, Name Attending Clinician Unavailable Josef Paul MD Attending Clinician Janis PALOMARES Attending Clinician ZARI MCKEON Attending Clinician Unavailable OTSUZY Attending Clinician Unavailable Janis PALOMARES Admitting Clinician ZARI MCKEON Admitting Clinician Unavailable OTSUZY Admitting Clinician Unavailable Payers Payer Name Policy Type Policy Effective Date Expiration Date Sour ce Number [facility] [id number] [facility] - MEDICARE MGD 00:00:00 - Medical CAREUNITED [place] MEDICARE [id number] 018-Present [facility] [id number] [facility] - MGD CAREUNITED 00:00:00 - Medica l PPO Center [id number] /03/2017-PresentPP O Problems Condition Condition Condition Status Onset Resolution Last Treating Co mments Source Name Details Category Date Date Treatment Clinician Date CPratima C. Disease Active [facility] diff[facility] difficile 09-16 [facility] - colitis colitis 00:00: Medical 00 [place] Bilateral Bilateral Disease Active [facility] pulmonary pulmonary 09-16 [facility] - embolism embolism 00:00: Medica l 00 Center Left leg Left leg Disease Active [facility] DVT DVT 09-16 [facility] - 00:00: Medical 00 [place] Gastroesop Gastroesop Disease Active [facility] hageal hageal 08-04 [facility] - reflux reflux 00:00: Medical disease disease 00 Center without without esophagiti esophagiti s s Rectal Rectal Disease Active [facility] bleeding bleeding 08-03 [facility] - 00:00: Medical 00 [place] Hypokalemi Hypokalemi Disease Active [facility] a a 08-03 [facility] - 00:00: Medical 00 [place] Other Other Disease Active [facility] specified specified 08-03 [facility] - hypothyroi hypothyroi 00:00: Me dical dism dism 00 Center Normochrom Normochrom Disease Active [facility] ic anemia ic anemia 08-03 [facility] - 00:00: Medical 00 Center Rectal Rectal Disease Active Overview: [facility] polyp polyp 08-02 S/p ESD [facility] - 00:00: by Dr. Kimball [address] [place] [address] 07/2017 Arrhythmia Arrhythmia Disease Active 2015-[address] 04-03 [facility] - 00:00: Medical 00 [place] PVC PVC Disease Active 2015-[address] [facility] (premature (premature 20 [facility] - ventricula ventricula 00:00: Me dical r r 00 Center contractio contractio n) n) TIA TIA Disease Active 2015-[address] [facility] [address] (transient (transient 04-01 [facility] [facility] - ischemic ischemic 00:00: Medica l attack) attack) 00 Center Hypothyroi Hypothyroi Disease Active 2015-[address] dism dism 04-01 [facility] - 00:00: Medical 00 Center Transient Transient Disease Active [facility] cerebral cerebral 12-04 [facility] - ischemia, ischemia, 00:00: Medi yoni unspecifie unspecifie 00 Ce nter d type d type 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 reflux reflux Center disease) disease) Anxiety Anxiety Disease Active [facility] Thyroid Thyroid Disease Active [facility] St disease disease [facility] Allergies, Adverse Reactions, Alerts Allergy Allergy Status Severity Reaction(s) Onset Inactive Treating Comm ents Source Name Type Date Date Clinician Sulfasal Drug Active Other (See Headaches [facility] azine Allergy Comments) 12-04 , [facility] - 00:00: weakness, Medical 00 no energy Center [place] Drug Active Rash Sore [facility] ne Allergy 12-04 throat, [facility] - 00:00: eyes Medical 00 hurt, [place] "large whelps" Adalimum Drug Active Swelling Swelling [...] Allergy 12-04 [facility] - 00:00: Medical 00 [place] Social History Social Habit Start Date Stop Date Quantity Comments Source Sex Assigned At [facility] Tobacco use and 2017-09-19 2017-09-19 Never used [facility] - exposure 00:00:00 00:00:00 [facility] Alcohol intake 2017-09-19 2017-09-19 Current [facility] es - 00:00:00 00:00:00 non-drinker of Medical nter alcohol (finding) Smoking Status Start Date Stop Date Source Never smoker [facility] edical Center Medications Ordered Filled Start Stop Current Ordering Indication Dosage Frequency Signature Comments Components Source Medication Medication Date Date Medication? Clinician (SIG) Name Name adonay Yes 1{puff} QD Inhale 1 [facility] (INCRUSE 7-07 puff by [facility] - ELLIPTA) 13:41: mouth via Medi yoni 62.5 58 inhaler Center mcg/actuati daily . on DsDv powder for inhalation vancomycin 2018-0 Yes 125mg Take [address] (VANCOCIN) 7-07 mg by [facility] - 125 MG 13:41: mouth 3 Medical capsule 58 (three) Center times daily with meals. rivaroxaban 2018-0 Yes Take by [facility] (XARELTO) 7-07 mouth [facility] - 20 mg Tab 13:41: daily with Me dical tablet 58 dinner. Center PARoxetine 2018-0 Yes 40mg Take [address] (PAXIL) 40 7-07 by mouth [facility] - MG tablet 13:41: daily with Me dical 57 dinner . Center predniSONE 2018-0 Yes 5mg Q.5D Take [address] (DELTASONE) 7-07 by mouth 2 [facility] - 5 MG tablet 13:41: (two) Medic al 57 times Center daily . cycloSPORIN 2018-0 Yes 1[drp] Q.5D [address] E 7 (two) [facility] - (RESTASIS) 13:41: times Medica l 0.05 % 57 daily. Center ophthalmic emulsion budesonide- 2017-0 Yes 2{puff} Q.5D Inhale [address] formoterol 707 puffs by [facility] - (SYMBICORT) 13:41: mouth via M edical 160-4.5 57 inhaler 2 Center mcg/actuati (two) on inhaler times daily. albuterol 2017-0 Yes 1{puff} Inhale [address] HFA 7-07 puff by [facility] - (VENTOLIN 13:41: mouth via Med ical HFA) 90 57 inhaler Center mcg/actuati every 6 on inhaler (six) hours as needed for Wheezing. furosemide 2018-0 Yes 20mg QD Take [address] (LASIX) 20 7-07 by mouth [facility] - MG tablet 13:41: daily . Medic al 57 Center spironolact 2018-0 Yes 25mg Q.5D Take [address] [facility] one 7-07 by mouth 2 [facility] - (ALDACTONE) 13:41: (two) Medic al 25 MG 57 times Center tablet daily. ALPRAZolam 2018-0 Yes .25mg Take 0.[address] (XANAX) 7-07 mg by [facility] - 0.25 MG 13:41: mouth Medical tablet 57 daily with Center breakfast . levothyroxi 2018- Yes 50ug Take [address] ne 7-07 mcg by [facility]ukes - (SYNTHROID, 13:41: mouth Medic al LEVOTHROID) 57 Every Center 50 MCG morning on tablet an empty stomach. roflumilast 2018-0 Yes QD Take by [facility] (DALIRESP) 7-07 mouth [facility] - 500 mcg Tab 13:41: daily. Medi yoni tablet 57 Center IRON 2018 Yes Take by [facility] FUM/FOLIC 7-07 mouth. [facility] - ACID/MV,MIN 13:41: Medica l 15 57 Center (HEMOCYTE-P SIOBHAN ORAL) tiotropium 2017- Yes 18ug QD Inhale [address] (SPIRIVA) 7-07 mcg by [facility] - 18 mcg 13:41: mouth via Medica l inhalation 57 inhaler Center capsule daily. Procedures Procedure Date / Time Performed Performing Clinician [facility] e SARS-COV2/RT-PCR ([facility] 2019-10-03 12:40:00 [facility] Center SARS-COV2/RT-PCR ([facility] 2019-07-03 15:32:00 [facility] Plan of Care Planned Activity Planned Date Details Comments Source Future Scheduled 2019-11-13 INFLUENZA VACCINE (#1) [facility] - Test 00:00:00 [code = INFLUENZA Medical Ce nter VACCINE (#1)] Future Scheduled 2018-07-[address] [facility] - Test 00:00:00 WELLNESS (YEAR 2 or Medical Center FIRST YEAR if no IPPE) [code = MEDICARE ANNUAL WELLNESS (YEAR 2 or FIRST YEAR if no IPPE)] Future Scheduled 1996 PNEUMOCOCCAL 65+ YRS [facility] - Test 00:00:00 (1 of 1 - Medical Center [id number] PCV13) [code = PNEUMOCOCCAL 65+ YRS (1 of 1 - [id number] PCV13)] Encounters Start End Encounter Admission Attending Care Care Encounter Source Date/Time Date/Time Type Type Clinicians Facility Department ID 2020-02-19 2020-02-19 Emergency BENNETT Vargas [id number] 11:01:00 16:40:00 Naun Cunha [id number] [place] 4.2.7.2.686 [place] [id number] 2019-06-18 2019-06-18 [facility] [id number] 07:52:37 08:22:37 ne Visit Nehemiah PRIMARY [id number] CARE 4.2.7.2.686 [place] [id number] 2019-05-04 2019-05-04 Telephone Ifrah Balderas [facility] 1.2.840.11 [id number] 00:00:00 00:00:00 [facility] [id number] CLINICS 2.7.2.686 [id number] 2019-04-26 2019-04-26 [place] Ifrah Balderas [facility] 12.840.11 [id number] 00:00:00 00:00:00 Y HEALTH [id number] CLINICS 4.2.7.2.686 [id number] 2019-04-20 2019-04-20 [facility] [place] [address].840.114 [id number] 08:45:00 23:59:00 Encounter Y HEALTH [id number] [facility] 4.2.7.2.686 [id number] 2019-04-19 2019-04-[address]114 7 [id number] 15:08:00 23:59:00 Encounter Alphonse [id number] [place] 4.2.7.2.686 [place] [id number] 2019-04-17 2019-04-17 [facility] Ifrah Balderas [facility] 12.840.114 [id number] 00:00:00 00:00:00 Management Y HEALTH [id number] CLINICS 4.2.7.2.686 [id number] 2019-04-17 2019-04-17 Telephone Ifrah Balderas [facility] 1.2.840.11 [id number] 00:00:00 00:00:00 Y HEALTH 350.1.13.10 [facility] 4.2.7.2.686 [id number] 2019-04-17 2019-04-17 Orders Doctor JOSE 1.2.840.114 [id number] 00:00:00 00:00:00 Only UnassignedDELFINO 350.1.13.10 [facility] 4.2.7.2.686 [id number] 2019-04-10 2019-04-12 Hospital Mac Paul 1.2.840 .114 [id number] 14:52:41 20:30:00 Encounter Mac Paul 350.1.13.1 0 [facility] 4.2.7.2.686 [id number] 2019-04-12 2019-04-12 Case Ifrah Balderas [facility] 1.2.840.114 [id number] 00:00:00 00:00:00 [facility] [id number] [facility] 4.2.7.2.686 [id number] Results Test Description Test Time Test Comments Results Result Comments Source SARS-CoV2/RT-PCR ([facility] & Ref Labs) 2019-10-04 09:38:00 Test Item Value Reference Range Interpretation Comme nts SARS-COV2/RT-PCR (test code = Negative Not Detected, 58838-5) Negative, See external report for linked test SARS-COV-[address] [facility] JANINE (test code = 94453-0) LANDRY (test code = LANDRY) Negative result for this test determines that SARS-CoV-2 RNA was not present in the specimen above the Limit of Detection (LOD). However, Negative results do not preclude SARS-CoV-2 infection and should not be used as the sole basis for treatment or patient management decisions. Negative results must be combined with clinical observations, patient history, and epidemiological information. A false negative result may occur if a specimen is improperly collected, transported or handled. A false negative result should be considered if patient's recent exposures or clinical presentation indicate that COVID-19 (SARS-CoV-2) is likely and diagnostic tests for other causes of illness are negative. Re-testing should be considered in cases of suspected false negatives. The limit of detection for this assay is 800 copies/mL. This SARS CoV-2 test is a real-time RT-PCR test intended for the qualitative detection of nucleic acid from SARS-CoV-2 in a nasopharyngeal swab specimen collected from individuals suspected of COVID-19 by their healthcare provider. This test has not been Food and Drug Administration (FDA) cleared or approved. This is a modified version of an approved Emergency Use Authorization (EUA) and is in the process of review by the FDA. Once authorized by the FDA, the issued EUA will be effective until the declaration that circumstances exist justifying the authorization of the emergency use of in vitro diagnostic tests for detection and/or diagnosis of COVID-19 is terminated under Section 564(b)(2) of the Act or the EUA is revoked under Section 564(g) of the Act. Fact Sheet for Healthcare Providers:https://www.[employer]/sites/default/files/produ ct/documents/Fact_Sheet_HC_Pr lbddnkt_Faon_OEXB-UxY-5.pdf Fact Sheet for Healthcare Patients:https://www.[employer] / [employer]/sites/default/files/produc t/documents/Fact_Sheet_Patien sq_Tqhy_VFTJ-FfC-9.pdf Performing Laboratory:[facility], [place] [address] [place], [place] [address]ARS-COV2/RT-PCR ([facility] REF [facility]S)2019-10-04 09:38:00 Test Item Value Reference Range Interpretation Comments SARS-COV2/RT-PCR (test Negative Not Detected, Negative, code = 1934494) See external report for linked test SARS-COV-[address] [facility] JANINE (test code = 0900094) Negative result for this test determines that SARS-CoV-2 RNA was not present in the specimen above the Limit of Detection (LOD). However, Negative results do not preclude SARS-CoV-2 infection and should not be used as the sole basis for treatment or patient management decisions. Negative results mustbe combined with clinical observations, patient history, and epidemiological information. A false negative result may occur if a specimen is improperly collected, transported or handled. A false negative result should be considered if patient's recent exposures or clinical presentation indicate that COVID-19 (SARS-CoV-2) is likely and diagnostic tests for other causes of illness are negative. Re-testing should be considered in cases of suspected false negatives.The limit of detection for this assay is 800 copies/mL.This SARS CoV-2 test is a real-time RT-PCR test intended for the qualitative detection of nucleic acid from SARS-CoV-2 in a nasopharyngeal swab specimen collected from individuals susp ected of COVID-19 by their healthcare provider.This test has not been Food and Drug Administration (FDA) cleared or approved. This is a modified version of an approved Emergency Use Authorization (EUA) and is in the process of review by the FDA. Once authorized by the FDA, the issued EUA will be effective until the declaration that circumstances exist justifying the authorization of the emergency use of in vitro diagnostic tests for detection and/or diagnosis of COVID-19 is terminated under Section 564(b)(2) of the Act or the EUA is revoked under Section 564(g) of the Act.Fact Sheet for Healthcare Providers:https://www.[employer]/sites/default/files/product/documents/Fact_Shee b_[place]_Xlruofbwo_Feih_RSMY-ZxJ-5.pdfFact Sheet for Healthcare Patients:https://www.[employer]/sites/default/files/product/ documents/Hwbs_Klcww_Rjgfllpb_Npyh_DAKC-LzB-0.pdfPerforming Laboratory:[facility], [place] [address]YAWK-NTF6/RT-PCR ([facility] REF [facility])2019-07-04 07:03:00 Test Item Value Reference Range Interpretation Comments SARS-COV2/RT-PCR (test Not Detected Not Detected, Negative code = 9057980) SARS-COV-[address] [facility] (test code = 1274757) Negative results do not preclude SARS-CoV-2 infection [...] of the Act.Fact Sheet for Healthcare Pro viders:https://www.[employer]/Documents/Xpert%20Xpress%20SARS%20CoV-2/Fact%20Sh eets/302-3802%59EHUW-CST-7%20HEALTHCARE%20PROVIDERS%20FACT%20SHEET.pdfFact Sheet for Healthcare Patients:https://www.[employer]/Documents/Xpert%20Xpress%20SARS%20CoV-2/Fact%20Sheets/302-3801%20SARS-COV -2%20PATIENT%20FACT%20SHEET.pdfPerforming Laboratory:[facility], [place] [address]CWCCFQ [id number] 16:22:00Surgical Pathology Report Case: [id number] Authorizing Provider: Misha Calloway MD Collected: 09/16/2017 1538 Ordering Location: [address] Received: 09/19/2017 0820 Service Pathologist: Larry Cohn MD Specimen: Polyp, Colon - Rectosigmoid, POLYP TAKEN BY HOT SNARE RECTO-SIGMOID, POLYPECTOMY- TUBULAR ADENOMA- CAUTERIZED EDGE, NEGATIVE FOR ADENOMATOUS CHANGE Signing PathologistDirect Phone Line: [phone] signed by Larry Cohn MD on 09/20/2017 at 4:22 [id number] colon polypThe specimen is received in [...] = 1.9 mg/dL 1.6-2.6 627) BASIC METABOLIC [id number] 07:32:00 Test Item Value Reference Range Interpretation [...] S NOT APPLICABLE FOR DIALYSIS PATIEN TS. [id number] 06:42:00 Test Item Value Reference Range Interpretation [...] 0-1 PERCENT (BEAKER) (test code = 2801) BASIC METABOLIC [id number] 19:07:00 Test Item Value Reference Range Interpretation [...] S NOT APPLICABLE FOR DIALYSIS PATIEN TS. [id number] 19:07:00 Test Item Value Reference Range Interpretation Comments MAGNESIUM (BEAKER) (test code = 1.9 mg/dL 1.6-2.6 627) CBC (HEMOGRAM ONLY)2017-09-16 18:38:00 Test Item Value [...] WBC 0-0 (BEAKER) (test code = 413) [id number] 06:56:00 Test Item Value Reference Range Interpretation Comments PHOSPHORUS (BEAKER) (test code = 2.7 mg/dL 2.3-4.7 604) [id number] 06:56:00 Test Item Value Reference Range Interpretation Comments MAGNESIUM (BEAKER) (test code = 1.9 mg/dL 1.6-2.6 627) BASIC METABOLIC [id number] 06:56:00 Test Item Value Reference Range Interpretation [...] APPLICABLE FOR DIALYSIS PATIEN TS. HEPATIC FUNCTION [id number] 06:56:00 Test Item Value Reference Range Interpretation [...] code = 10 U/L 6-55 347) CALCIUM, [id number] 06:36:00 Test Item Value Reference Range Interpretation Comments CALCIUM IONIZED (BEAKER) (test 1.05 mmol/L 1.12-1.27 L code = 698) PH, BLOOD (BEAKER) (test code = 7.46 1810) PROTHROMBIN [id number] 06:35:00 Test Item Value Reference Range Interpretation [...] PERCENT (BEAKER) (test code = 2801) TISSUE [id number] 14:52:00Surgical Pathology Report Case: [id number] Authorizing Provider: Ricardo Wilson MD Collected: 08/02/2017 1715 Ordering Location: [facility] Endoscopy Received: 08/03/2017 0837 Services Pathologist: Larry Cohn MD Specimen: Rectal, MASS- TAKEN BY ESD, ON WAX, EVALUATE MARGINS RECTAL, 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 PROTHROMBIN [id number] 05:59:00 Test Item Value Reference Range Interpretation Comments PROTIME (BEAKER) (test code = 14.6 seconds 11.7-14.7 759) INR (BEAKER) (test code = 370) 1.1 <=5.9 RECOMMENDED COUMADIN/WARFARIN INR THERAPY RANGESSTANDARD DOSE: 2.0 - 3.0 Includes: PROPHYLAXIS forvenous thrombosis, systemic embolization; TREATMENT for venous thrombosis and/or pulmonary embolus.HIGH RISK: Target INR is 2.5-3.5 for patients with mechanical heart valves.URINALYSIS W/ [id number] 14:53:00 Test Item Value Reference Range Interpretation [...] SOURCE(BEAKER) (test code = 2795) HEPATIC FUNCTION [id number] 06:31:00 Test Item Value Reference Range Interpretation [...] = 15 U/L 6-55 347) BASIC METABOLIC [id number] 06:31:00 Test Item Value Reference Range Interpretation [...] APPLICABLE FOR DIALYSIS PATIEN TS. BASIC METABOLIC [id number] 06:30:00 Test Item Value Reference Range Interpretation [...] PATIEN TS. CBC W/PLT COUNT & AUTO [id number] 06:25:00 Test Item Value Reference Range Interpretation [...] PERCENT (BEAKER) (test code = 2801) PROTHROMBIN [id number] 06:21:00 Test Item Value Reference Range Interpretation [...]
[2020-05-19] MEDS ORDERED: NA CHLORIDE 0.9% 500 ML ONE (10:49)
[2020-05-19] MEDS ORDERED: ONDANSETRON 4 MG/2 ML VIAL ONE ×2 (10:49→13:32)
[2020-05-19] MEDS ORDERED: FAMOTIDINE 20 MG/2 ML VIAL IV ONE (10:49)
[2020-05-19] MEDS ORDERED: MORPHINE 2 MG/ML SYR ONE ×2 (10:49→12:34)
--- NOTE | 2020-05-19 10:53 | RAD REPORT ---
EXAM DESCRIPTION: CT - Head Brain Wo Cont - 05/19/2020 10:32 am CLINICAL HISTORY: PAIN COMPARISON: Head Brain Wo Cont dated 10/03/2019 TECHNIQUE: Axial 5 mm thick images of the head were obtained without IV contrast. All CT scans are performed using dose optimization technique as appropriate and may include automated exposure control or mA/KV adjustment according to patient size. FINDINGS: No intracranial hemorrhage, mass, edema or shift of mid-line structures. No acute cortical based infarction. Bold infarction seen lateral right frontal lobe. Mild for age atrophy changes are present. Ventricles are in proportion to the volume loss. Chronic ischemic changes are mild. No abnor mal extra-axial fluid collections. Intracranial findings are similar to September 2019. Mastoid air cells and visualized portions of the paranasal sinuses are clear. No acute bony findings. IMPRESSION: Negative non-contrast CT head examination for acute finding. Above detailed findings are similar to September 2019.
[2020-05-19 11:07] LABS: Absolute Lymphocytes (CBC) 3.5 K/uL (0.7-4.9); Basophils % 0.5 % (0-1.3); Hematocrit 39.1 % (36.0-45.0); Lymphocytes % 34.7 % (15.3-44.8); MPV 7.2 fL (7.6-11.3); RBC Red Blood Cell Count 4.28 M/uL (3.86-4.86)
[2020-05-19 11:08] LABS: Protime INR 0.87
[2020-05-19 11:29] LABS: ALT/SGPT 27 U/L (12-78); AST/SGOT 18 U/L (15-37); Albumin 3.2 g/dL (3.4-5.0); Alkaline Phosphatase 63 U/L (45-117); BUN Blood Urea Nitrogen 12 mg/dL (7-18); Bicarbonate 30 mmol/L (21-32); Bilirubin Direct 0.3 mg/dL (0-0.2); Bilirubin Total 1.3 mg/dL (0.2-1.0); Glucose Level 86 mg/dL (74-106); Lipase 164 U/L (73-393); Magnesium 2.2 mg/dL (1.8-2.4); NT PRO-BNP 296 pg/mL (<450); Potassium 3.3 mmol/L (3.5-5.1); Protein, Total 6.7 g/dL (6.4-8.2); Sodium Level 138 mmol/L (136-145); Troponin (Emerg Dept Use Only) < 0.02 ng/mL (0.0-0.045)
--- NOTE | 2020-05-19 12:00 | RAD REPORT ---
EXAM DESCRIPTION: RAD - Chest Single View - 05/19/2020 11:34 am CLINICAL HISTORY: COUGH COMPARISON: AP chest September 2019 TECHNIQUE: AP portable chest image was obtained 05/19/2020 11:34 am . FINDINGS: Lungs are fibrotic with the interstitial pattern accentuated by shallow inspiration. No tr ue interval change suspected. No mass or consolidation. Trachea is midline. Loop recorder overlies th e lower left chest. Heart and vasculature are normal. No measurable pleural effusion and no pneumotho rax. No acute bony abnormality seen. No acute aortic findings suspected. IMPRESSION: No acute cardiopulmonary process. Fibrotic lung pattern matches comparison.
[2020-05-19 12:26] LABS: SARS-COV-2 RT PCR NEGATIVE (NEGATIVE)
--- NOTE | 2020-05-19 12:26 | EDPHYS ---
Physician Documentation [facility] Name: Elva Jenkins Age: 89 yrs Sex: Female : 1930 Arrival Date: 05/19/2020 Time: 09:56 Bed 13 Private MD: SANDER Physician Tommy Reyes HPI: 05/19 10:17 This 89 yrs old Female presents to ER via EMS with complaints of Headache, [place] generalized pain. 10:17 The patient complains of pain to the top of head, forehead, left frontal area, left [place] side of the back of head, left occipital area, left base of the skull, right frontal area, right side of the back of head, right occipital area and right base of the skull. The patient describes the headache as constant. Onset: The symptoms/episode began/occurred just prior to arrival, this morning. Associated signs and symptoms: Pertinent positives:. Severity of symptoms: At its worst the pain was moderate, in the emergency department the pain is unchanged. Headache History: The patient has had previous headaches and this one is different than previous episodes. The symptoms are alleviated by nothing. the symptoms are aggravated by nothing. The patient has experienced similar episodes in the past, a few times. Historical: - Allergies: 09:59 Asacol; ss 09:59 Aspirin; ss 09:59 Humira; ss 09:59 Methotrexate; ss 09:59 Orencia; ss 09:59 Phenergan; ss 09:59 Sulfazine; ss - PMHx: 09:59 Arthritis; Depression; COPD; GERD; Hyperlipidemia; Hypothyroidism; ss - PSHx: 09:59 Hysterectomy; ss - Immunization history:: Adult Immunizations up to date. - Social history:: Smoking status: Patient denies any tobacco usage or history of. - Family history:: not pertinent. ROS: 10:17 Constitutional: Negative for fever, chills, and weight loss, Eyes: Negative for injury, [place] pain, redness, and discharge, ENT: Negative for injury, pain, and discharge, Neck: Negative for injury, pain, and swelling, Cardiovascular: Negative for chest pain, palpitations, and edema, Respiratory: Negative for shortness of breath, cough, wheezing, and pleuritic chest pain, Abdomen/GI: Negative for abdominal pain, nausea, vomiting, diarrhea, and constipation, Back: Negative for injury and pain, : Negative for injury, bleeding, discharge, and swelling, MS/Extremity: Negative for injury and deformity, Skin: Negative for injury, rash, and discoloration, Psych: Negative for depression, anxiety, suicide ideation, homicidal ideation, and hallucinations, Allergy/Immunology: Negative for hives, rash, and allergies, Endocrine: Negative for neck swelling, polydipsia, polyuria, polyphagia, and marked weight changes, Hematologic/Lymphatic: Negative for swollen nodes, abnormal bleeding, and unusual bruising. 10:17 Neuro: Positive for headache. Exam: 10:17 Head/Face: Normocephalic, atraumatic. Eyes: Pupils equal round and reactive to light, [place] extra-ocular motions intact. Lids and lashes normal. Conjunctiva and sclera are non-icteric and not injected. Cornea within normal limits. Periorbital areas with no swelling, redness, or edema. ENT: Nares patent. No nasal discharge, no septal abnormalities noted. Tympanic membranes are normal and external auditory canals are clear. Oropharynx with no redness, swelling, or masses, exudates, or evidence of obstruction, uvula midline. Mucous membranes moist. Neck: Trachea midline, no thyromegaly or masses palpated, and no cervical lymphadenopathy. Supple, full range of motion without nuchal rigidity, or vertebral point tenderness. No Meningismus. Chest/axilla: Normal chest wall appearance and motion. Nontender with no deformity. No lesions are appreciated. Cardiovascular: Regular rate and rhythm with a normal S1 and S2. No gallops, murmurs, or rubs. Normal PMI, no JVD. No pulse deficits. Respiratory: Lungs have equal breath sounds bilaterally, clear to auscultation and percussion. No rales, rhonchi or wheezes noted. No increased work of breathing, no retractions or nasal flaring. Abdomen/GI: Soft, non-tender, with normal bowel sounds. No distension or tympany. No guarding or rebound. No evidence of tenderness throughout. Back: No spinal tenderness. No costovertebral tenderness. Full range of motion. Female : Normal external genitalia. Skin: Warm, dry with normal turgor. Normal color with no rashes, no lesions, and no evidence of cellulitis. MS/ Extremity: Pulses equal, no cyanosis. Neurovascular intact. Full, normal range of motion. Psych: Awake, alert, with orientation to person, place and time. Behavior, mood, and affect are within normal limits. 10:17 Constitutional: The patient appears in obvious distress, mildly distressed. 10:17 Neck: Thyroid: appears normal, Trachea: is midline with no obvious abnormalities, ROM/movement: is normal, no acute changes, Meningeal signs: are not present, Kernig's sign is negative, Brudzinski's sign is negative, Lymph nodes: no appreciated lymphadenopathy. 10:17 Musculoskeletal/extremity: DVT Exam: No signs of deep vein thrombosis. no swelling, no tenderness, negative Homans' sign noted on exam, no appreciated bluish discoloration, no erythema, no increased warmth, pain. 12:41 ECG was reviewed by the Attending Physician. [facility] Vital Signs: 09:57 BP 112 / 65; Pulse 102; Resp 14; Temp 97.0; Pulse Ox 97% on R/A; ss 12:00 BP 166 / 79; Pulse 92; Resp 15; Pulse Ox 92% on R/A; Pain 9/10; hb 12:30 Pulse Ox 85% on R/A; hb 12:34 Pulse Ox 96% on 2 lpm NC; hb 13:15 BP 160 / 80; Pulse 88; Resp 17; Pulse Ox 94% on 2 lpm NC; hb 14:00 BP 176 / 89; Pulse 93; Resp 18; Pulse Ox 95% on R/A; hb 15:00 BP 155 / 81; Pulse 88; Resp 15; Pulse Ox 96% on 2 lpm NC; hb Sandra Coma Score: 10:22 Eye Response: spontaneous(4). Verbal Response: oriented(5). Motor Response: obeys [place] commands(6). Total: 15. MDM: 10:01 Patient medically screened. [place] 10:22 Differential diagnosis: cluster headache, cerebral vascular accident, epidural [place] hematoma, hypertensive headache, hyponatremia, migraine, neoplasm, subdural hematoma, temporal arteritis, tension headache, trigeminal neuralgia, uremia. Data reviewed: vital signs, nurses notes, lab test result(s), EKG, radiologic studies, CT scan, plain films. Data interpreted: secured entrance monitor: rate is 102 beats/min, rhythm is regular. Test interpretation: by ED physician or midlevel provider: ECG, plain radiologic studies. Counseling: I had a detailed discussion with the patient and/or guardian regarding: the historical points, exam findings, and any diagnostic results supporting the discharge/admit diagnosis, lab results. 05/19 10:17 Order name: Basic Metabolic Panel [facility] 05/19 10:17 Order name: CBC with Diff [facility] 05/19 10:17 Order name: LFT's [facility] 05/19 10:17 Order name: Magnesium [facility] 05/19 10:17 Order name: NT PRO-BNP [facility] 05/19 10:17 Order name: PT-INR [facility] 05/19 10:17 Order name: Troponin (emerg Dept Use Only) [facility] 05/19 10:17 Order name: Lipase [facility] 05/19 10:17 Order name: Urine Culture [facility] 05/19 10:17 Order name: Flu [facility] 05/19 10:17 Order name: Basic Metabolic Panel; Complete Time: 12:04 EDMS 05/19 10:18 Order name: CBC with Automated Diff; Complete Time: 11:21 EDMS 05/19 10:18 Order name: Liver (Hepatic) Function; Complete Time: 12:04 EDMS 05/19 10:17 Order name: XRAY Chest (1 view); Complete Time: 12:04 [place] 05/19 10:17 Order name: CT Head Brain wo Cont; Complete Time: 11:07 [place] 05/19 10:18 Order name: Magnesium; Complete Time: 12:04 EDMS 05/19 10:18 Order name: NT PRO-BNP; Complete Time: 12:04 EDMS 05/19 10:18 Order name: Protime (+INR); Complete Time: 12:04 EDMS 05/19 10:18 Order name: Troponin (Emerg Dept Use Only); Complete Time: 12:04 EDMS 05/19 10:18 Order name: Lipase; Complete Time: 12:04 EDMS 05/19 10:25 Order name: Sed Rate; Complete Time: 13:13 bd 05/19 12:27 Order name: COVID-19/FLU A+B; Complete Time: 13:13 EDMS 05/19 12:27 Order name: Urine Dipstick--Ancillary (enter results) 05/19 12:27 Order name: Urine Dipstick-Ancillary; Complete Time: 13:13 EDMS 05/19 13:25 Order name: CT Head Angio [facility] 05/19 14:47 Order name: MRI - Brain Wo Cont [facility] 05/19 16:48 Order name: CT EDFL 05/19 10:17 Order name: EKG; Complete Time: 10:18 [facility] 05/19 10:17 Order name: Cardiac monitoring; Complete Time: 10:56 [facility] 05/19 10:17 Order name: EKG - Nurse/Tech; Complete Time: 10:56 [facility] 05/19 10:17 Order name: IV Saline Lock; Complete Time: 10:55 [facility] 05/19 10:17 Order name: Labs collected and sent; Complete Time: 10:55 [facility] 05/19 10:17 Order name: O2 Per Protocol; Complete Time: 10:56 [facility] 05/19 10:17 Order name: O2 Sat Monitoring; Complete Time: 10:56 [facility] 05/19 10:17 Order name: Urine Dipstick-Ancillary (obtain specimen); Complete Time: 12:13 [facility] 05/19 12:22 Order name: CONS Physician Consult EDFL EC:41 Rate is 82 beats/min. Rhythm is regular. QRS [place] is Normal. PA interval is normal. QRS [place] interval is normal. QT interval is normal. No Q waves. T waves are Normal. No ST changes noted. Clinical impression: Normal ECG and No evidence of ischemia. Interpreted by me. Reviewed by me. Administered Medications: Discontinued: NS 0.9% 1000 ml IV at 100 ml/hr continuous 10:54 Drug: morphine 2 mg Route: IVP; Site: right antecubital; hb 11:32 Follow up: Response: No adverse reaction hb 10:54 Drug: Zofran (Ondansetron) 4 mg Route: IVP; Site: right antecubital; hb 11:32 Follow up: Response: No adverse reaction hb 10:54 Drug: Pepcid 20 mg Route: IVP; Site: right antecubital; hb 11:32 Follow up: Response: No adverse reaction hb 10:55 Drug: NS 0.9% 1000 ml Route: IV; Rate: 100 ml/hr; Site: right antecubital; hb 12:22 Follow up: Response: No adverse reaction; IV Status: Order to discontinue infusion; IV hb Intake: 220ml 12:20 CANCELLED (IV not IM): morphine 2 mg IM once; RASS on ADMIN: Combtv4, Very Agttd3, hb Agttd2, Rstlss1, AlertClm0, Drwsy-1, Lt Sdtn-2, Mod Sdtn-3, Dp Sdtn-4, UnArsble-5 12:20 Drug: morphine 2 mg Route: IVP; Site: right antecubital; hb 13:27 Follow up: Response: No adverse reaction hb 12:30 Drug: NS 0.9% with KCl 20 mEq/L 1000 ml Route: IV; Rate: 100 ml/hr; Site: right hb antecubital; 13:26 Drug: Zofran (Ondansetron) 4 mg Route: IVP; Site: right antecubital; hb 14:00 Follow up: Response: No adverse reaction hb 13:26 Drug: fentaNYL (PF) 25 mcg Route: IVP; Site: right antecubital; hb 14:00 Follow up: Response: No adverse reaction hb 14:09 Drug: fentaNYL (PF) 25 mcg Route: IVP; Site: right antecubital; hb 15:00 Follow up: Response: No adverse reaction hb Disposition: 05/19/20 12:25 Hospitalization ordered by Bharti Pollock for Observation. Preliminary diagnosis are Headache, Malaise and fatigue, Vomiting. - Bed requested for Telemetry/MedSurg (observation). - Status is Observation. hb - Condition is Stable. - Problem is new. - Symptoms have improved. Signatures: Dispatcher [employer] EDMS Saray Wilkerson Corey, MD MD cha Smirch, Shelby, RN RN ss Baxter, Heather, RN RN Corrections: (The following items were deleted from the chart) 11:42 10:18 CORONAVIRUS+MR.LAB.BRZ ordered. EDFL EDMS 11:43 10:18 Influenza Screen (A ordered. EDFL EDMS 12:20 12:04 morphine 2 mg IM once; RASS on ADMIN: Combtv4, Very Agttd3, Agttd2, Rstlss1, hb AlertClm0, Drwsy-1, Lt Sdtn-2, Mod Sdtn-3, Dp Sdtn-4, UnArsble-5 ordered. [facility] 12:20 12:20 morphine 2 mg IM once; RASS on ADMIN: Combtv4, Very Agttd3, Agttd2, Rstlss1, hb AlertClm0, Drwsy-1, Lt Sdtn-2, Mod Sdtn-3, Dp Sdtn-4, UnArsble-5 ordered. hb 14:47 12:25 Hospitalization Ordered by A Maris PALOMARES for Inpatient Admission. Preliminary [place] diagnosis is Headache; Malaise and fatigue; Vomiting. Bed requested for Telemetry/MedSurg (Inpatient). Status is Inpatient Admission. Condition is Stable. Problem is new. Symptoms have improved. [place] 15:18 14:47 05/19/2020 12:25 Hospitalization Ordered by A Maris PALOMARES for Observation. bd Preliminary diagnosis is Headache; Malaise and fatigue; Vomiting. Bed requested for Telemetry/MedSurg (observation). Status is Observation. Condition is Stable. Problem is new. Symptoms have improved. [place] 17:10 15:18 05/19/2020 12:25 Hospitalization Ordered by A Maris PALOMARES for Observation. hb Preliminary diagnosis is Headache; Malaise and fatigue; Vomiting. Bed requested for Telemetry/MedSurg (observation). Status is Observation. Condition is Stable. Problem is new. Symptoms have improved. bd
--- NOTE | 2020-05-19 12:26 | ER ---
Nurse's Notes [facility] Name: Elva Jenkins Age: 89 yrs Sex: Female : 1930 Arrival Date: 05/19/2020 Time: 09:56 Bed 13 Private MD: Diagnosis: Headache;Malaise and fatigue;Vomiting Presentation: 05/19 09:57 Chief complaint: Patient states: headache and generalized body pain that began ss yesterday. Coronavirus screen: Client denies travel out of the [place] in the last 14 days. Ebola Screen: Patient denies exposure to infectious person. Patient denies travel to an Ebola-affected area in the 21 days before illness onset. Initial Sepsis Screen: Does the patient meet any 2 criteria? No. Patient's initial sepsis screen is negative. Does the patient have a suspected source of infection? No. Patient's initial sepsis screen is negative. Risk Assessment: Do you want to hurt yourself or someone else? Patient reports no desire to harm self or others. Onset of symptoms was May 18, 2020. 09:57 Method Of Arrival: EMS: [facility] ss 09:57 Acuity: TAVON 3 ss Historical: - Allergies: 09:59 Asacol; ss 09:59 Aspirin; ss 09:59 Humira; ss 09:59 Methotrexate; ss 09:59 Orencia; ss 09:59 Phenergan; ss 09:59 Sulfazine; ss - PMHx: 09:59 Arthritis; Depression; COPD; GERD; Hyperlipidemia; Hypothyroidism; ss - PSHx: 09:59 Hysterectomy; ss - Immunization history:: Adult Immunizations up to date. - Social history:: Smoking status: Patient denies any tobacco usage or history of. - Family history:: not pertinent. Screenin:26 Abuse screen: Denies threats or abuse. Denies injuries from another. Nutritional hb screening: No deficits noted. Tuberculosis screening: No symptoms or risk factors identified. Fall Risk Total Hutchinson Fall Scale indicates Low Risk Score (25-44 pts). Fall prevention measures have been instituted. Side Rails Up X 2 Frequent Obs/Assesments occuring. Assessment: 11:15 General: Appears in no apparent distress. uncomfortable, ill, Behavior is calm, hb cooperative, quiet. Pain: Pain currently is 10 out of 10 on a pain scale. Neuro: Level of Consciousness is awake, alert, obeys commands, Oriented to person, place, time, situation, Reports headache occipital area. Cardiovascular: Capillary refill < 3 seconds Patient's skin is warm and dry. Rhythm is regular. Respiratory: Respiratory effort is even, unlabored, Respiratory pattern is regular, symmetrical. GI: Reports nausea. : No signs and/or symptoms were reported regarding the genitourinary system. EENT: No signs and/or symptoms were reported regarding the EENT system. Derm: Skin is pink, warm \T\ dry. Musculoskeletal: No signs and/or symptoms reported regarding the musculoskeletal system. 12:00 Reassessment: Patient appears in no apparent distress at this time. No changes from hb previously documented assessment. Patient and/or family updated on plan of care and expected duration. Pain level reassessed. 12:40 Reassessment: SpO2 85% on RA, improved to >94% on 2L. hb 13:27 Reassessment: Pt c/o headache 10/10 an nausea, Dr. Reyes notified, fentanyl and hb Zofran administered as ordered. 14:04 Reassessment: Patient appears in no apparent distress at this time. Patient and/or hb family updated on plan of care and expected duration. Pain level reassessed. 15:03 Reassessment: Patient appears in no apparent distress at this time. No changes from hb previously documented assessment. Patient and/or family updated on plan of care and expected duration. Pain level reassessed. Vital Signs: 09:57 BP 112 / 65; Pulse 102; Resp 14; Temp 97.0; Pulse Ox 97% on R/A; ss 12:00 BP 166 / 79; Pulse 92; Resp 15; Pulse Ox 92% on R/A; Pain 9/10; hb 12:30 Pulse Ox 85% on R/A; hb 12:34 Pulse Ox 96% on 2 lpm NC; hb 13:15 BP 160 / 80; Pulse 88; Resp 17; Pulse Ox 94% on 2 lpm NC; hb 14:00 BP 176 / 89; Pulse 93; Resp 18; Pulse Ox 95% on R/A; hb 15:00 BP 155 / 81; Pulse 88; Resp 15; Pulse Ox 96% on 2 lpm NC; hb [place] Coma Score: 10:22 Eye Response: spontaneous(4). Verbal Response: oriented(5). Motor Response: obeys [place] commands(6). Total: 15. ED Course: 09:56 Patient arrived in ED. ss 09:59 Triage completed. ss 09:59 Arm band placed on right wrist. ss 10:01 Tommy Reyes MD is Attending Physician. [place] 10:28 Jennifer Haley, RN is Primary Nurse. hb 10:32 CT Head Brain wo Cont In Process Unspecified. EDMS 11:32 Patient has correct armband on for positive identification. Bed in low position. Call hb light in reach. Side rails up X2. 11:34 XRAY Chest (1 view) In Process Unspecified. EDMS 12:17 Bharti Pollock MD is Hospitalizing Provider. [place] 17:00 No provider procedures requiring assistance completed. IV discontinued, intact, hb bleeding controlled, No redness/swelling at site. Administered Medications: Discontinued: NS 0.9% 1000 ml IV at 100 ml/hr continuous 10:54 Drug: morphine 2 mg Route: IVP; Site: right antecubital; hb 11:32 Follow up: Response: No adverse reaction hb 10:54 Drug: Zofran (Ondansetron) 4 mg Route: IVP; Site: right antecubital; hb 11:32 Follow up: Response: No adverse reaction hb 10:54 Drug: Pepcid 20 mg Route: IVP; Site: right antecubital; hb 11:32 Follow up: Response: No adverse reaction hb 10:55 Drug: NS 0.9% 1000 ml Route: IV; Rate: 100 ml/hr; Site: right antecubital; hb 12:22 Follow up: Response: No adverse reaction; IV Status: Order to discontinue infusion; IV hb Intake: 220ml 12:20 CANCELLED (IV not IM): morphine 2 mg IM once; RASS on ADMIN: Combtv4, Very Agttd3, hb Agttd2, Rstlss1, AlertClm0, Drwsy-1, Lt Sdtn-2, Mod Sdtn-3, Dp Sdtn-4, UnArsble-5 12:20 Drug: morphine 2 mg Route: IVP; Site: right antecubital; hb 13:27 Follow up: Response: No adverse reaction hb 12:30 Drug: NS 0.9% with KCl 20 mEq/L 1000 ml Route: IV; Rate: 100 ml/hr; Site: right hb antecubital; 13:26 Drug: Zofran (Ondansetron) 4 mg Route: IVP; Site: right antecubital; hb 14:00 Follow up: Response: No adverse reaction hb 13:26 Drug: fentaNYL (PF) 25 mcg Route: IVP; Site: right antecubital; hb 14:00 Follow up: Response: No adverse reaction hb 14:09 Drug: fentaNYL (PF) 25 mcg Route: IVP; Site: right antecubital; hb 15:00 Follow up: Response: No adverse reaction hb Intake: 12:22 IV: 220ml; Total: 220ml. hb Outcome: 12:25 Decision to Hospitalize by Provider. [place] 17:00 Admitted to Tele accompanied by tech, via stretcher, with oxygen, with chart. hb 17:00 Condition: stable 17:00 Instructed on the need for admit, Demonstrated understanding of instructions. 17:10 Patient left the ED. hb Signatures: Dispatcher [employer] EDMS Tommy Reyes MD MD cha Smirch, Shelby, RN RN ss Baxter, Heather, RN RN hb Corrections: (The following items were deleted from the chart) 12:35 12:24 BP 166 / 79; Pulse 92bpm; Resp 15bpm; Pulse Ox 92% RA; Pain 9/10; hb hb
[2020-05-19] MEDS ORDERED: NS KCL 20MEQ 1,000 ML IV ONE (12:46)
[2020-05-19 13:11] LABS: Urine Blood TRACE (NEG); Urine Glucose NEGATIVE (NEG); Urine Protein NEGATIVE (NEG); Urine pH 8.5 (5.0-7.0)
[2020-05-19] MEDS ORDERED: FENTANYL CITR 100 MCG/2 ML ONE ×2 (13:32→14:24)
--- NOTE | 2020-05-19 16:47 | RAD REPORT ---
EXAM DESCRIPTION: CT - Head angio - 05/19/2020 2:16 pm CLINICAL HISTORY: HEADACHE Headache, drowsiness COMPARISON: Head Brain Wo Cont dated 05/19/2020; Head Brain Wo Cont dated 10/03/2019 TECHNIQUE: CT angiography of the head was performed with MIPs. All CT scans are performed using dose optimization technique as appropriate and may include automated exposure control or mA/KV adjustment according to patient size. FINDINGS: No evidence of aneurysm is detected. No flow-limiting stenosis or vascular malformation id entified. Antegrade flow is seen in the vertebral arteries. The vertebral arteries are codominant. The visualized dural venous sinuses are patent. IMPRESSION: No significant flow abnormality is detected.
[2020-05-19] MEDS ORDERED: MORPHINE 2 MG/ML SYR IV PRN (17:20)
[2020-05-19] MEDS ORDERED: ONDANSETRON 4 MG/2 ML VIAL IV PRN (17:20)
[2020-05-19 17:59] VITALS: BMI 21.4
--- NOTE | 2020-05-19 19:04 | RAD REPORT ---
EXAM DESCRIPTION: MRI - Brain Wo Cont - 05/19/2020 6:50 pm CLINICAL HISTORY: HEADACHE Headache, drowsiness COMPARISON: Head angio dated 05/19/2020 TECHNIQUE: Multi-sequence, multiplanar MR imaging of the brain was performed without contrast. FINDINGS: No intracranial hemorrhage, hydrocephalus or extra-axial fluid collections.Moderate gliosi s is seen in the distribution of the right middle cerebral artery. No edema or shift of midline struc tures. No findings to suspect brain mass. DWI is negative for acute CVA. Midline structures are normally formed. Mastoid air cells and paranasal sinuses are clear. IMPRESSION: Negative for acute CVA or other acute intracranial abnormality. 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
[2020-05-19] MEDS: ACETAMINOPHEN 325 MG TABLET PO PRN (21:11)
[2020-05-19] MEDS: FAMOTIDINE 20 MG/2 ML VIAL IV SCH (21:19)
[2020-05-20] MEDS: ACETAMINOPHEN 325 MG TABLET PO PRN (05:09)
[2020-05-20 05:34] LABS: Absolute Lymphocytes (CBC) 2.1 K/uL (0.7-4.9); Basophils % 0.3 % (0-1.3); Hematocrit 38.1 % (36.0-45.0); Lymphocytes % 23.7 % (15.3-44.8); RBC Red Blood Cell Count 4.15 M/uL (3.86-4.86)
[2020-05-20 05:47] LABS: BUN Blood Urea Nitrogen 11 mg/dL (7-18); Bicarbonate 29 mmol/L (21-32); Glucose Level 71 mg/dL (74-106); Potassium 3.8 mmol/L (3.5-5.1); Sodium Level 135 mmol/L (136-145)
[2020-05-20] MEDS: FAMOTIDINE 20 MG/2 ML VIAL IV SCH (08:18)
[2020-05-20 09:53] VITALS: O2SAT 95
[2020-05-20 13:57] VITALS: BP 150/80
[2020-05-20 14:42] VITALS: TEMP 98
--- NOTE | 2020-05-20 23:33 | SS ---
Date of Admission: 05/20/2020 Date of Discharge: 05/20/2020 Chief Complaint: Headache and feeling weak. History Of Present Illness: This is an 89-year-old female patient living at [facility], came into emergency room yesterday with complaints of headache and not feeling good, was having some weakness. After she was evaluated in the ER, she was admitted to the hospital. I went to see her last night, but she was in Radiology getting her MRI, so I was not able to see her until this morning. When I saw her this morning, no new complaints or problems reported, no nausea, no vomiting. Medications: List reviewed. Review of Systems: CLINICAL PROJECT ASSISTANT: As mentioned above. Constitutional: As mentioned above. All other systems reviewed and negative. Allergies: SULFA CAUSING HEADACHE, RITUXIMAB CAUSING SWELLING OF THE LEGS, PROMETHAZINE CAUSING HALLUCINATION AND ARM JERKING, METHOTREXATE CAUSING DYSPNEA, MESALAMINE CAUSING SORE THROAT AND HIVES, ADALIMUMAB CAUSING FACE SWELLING, AND ABATACEPT CAUSING JOINT PAIN. Past Surgical History: Hysterectomy, appendectomy, cholecystectomy, cataract surgery, removal of benign rectal mass on August 02, 2017 in [place]. Social History: Negative for smoking or alcohol use. Family History: Significant for hypertension and stroke. Parents of old age at 99 and 95 years. Past Medical History: Lymphedema of legs, hypertension, hypothyroidism, COPD, chronic steroid therapy, rheumatoid arthritis, chronic leg swelling, hemorrhoids, Clostridium difficile colitis, DVT of leg, pulmonary embolism diagnosed in August 2017, compression fracture of spine, for which she had surgerydone in form of kyphoplasty. Physical Examination: Vital Signs: This morning, temperature 99.4, pulse 93, respiratory rate 16, blood pressure 160/88, height 5 feet, weight 110 pounds, oxygen saturation 99%. General: Awake, alert, oriented, not in distress. HEENT: Head atraumatic, normocephalic. Conjunctivae nonerythematous. Sclerae white. Mouth, no thrush or edema noted. Ears/Nose, no mass, lesion, discharge noted. Neck: Supple. No JVD, lymph nodes, bruit, thyromegaly noted. Lungs: Bilateral good equal air entry. Clear to auscultation. No rhonchi. No rales. Heart: Normal heart sounds. No murmur or gallop. Abdomen: Soft. Bowel sounds normal. No guarding, rigidity, tenderness, mass, hepatosplenomegaly, distention, or bruit noted. Extremities: Trace bilateral leg edema, nonpitting. This is chronic for her. Skin: No rash, ulcer, cellulitis. Lymphatics: No lymph node enlargement in neck, supraclavicular, infraclavicular region. Neuro: No focal neurological deficit. Chest: Unremarkable. External Genitalia: Deferred. Rectal: Deferred. Laboratory Data: Yesterday, white count 10.1, hemoglobin 13.1, platelets 245, sedimentation rate 12. This morning, white count 8.6, hemoglobin 12.7, platelets 215. Yesterday, sodium 138, potassium 3.3, chloride 102, bicarb 30, BUN 12, creatinine 0.62, glucose 86, total bilirubin 1.3, direct bilirubin 0.3. Troponin less than 0.03. This morning, sodium 135, potassium 3.8, chloride 101, bicarb 29, BUN 11, creatinine 0.49, glucose 71. Her chest x-ray, no acute cardiopulmonary changes. CAT scan of the head, no acute intracranial changes. CT angiogram of the brain was negative for any acute or significant finding. MRI of the brain is negative for any acute intracranial changes. 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 Hospital Course: After I saw the patient this morning, all the test results were discussed with her. The patient was medically stable for discharge and she was discharged to go home in stable condition with instructions to continue prior home medication, follow up at my office next week on 05/26/2020 at 9 a.m. After I wrote the discharge nurse on the floor, had contacted me and informed me that the patient did not feel comfortable going home today, and subsequently after her son came and talked to her, she felt comfortable going home. Discharge Diagnoses: 1. Headache. 2. Generalized weakness. 3. Hypertension. 4. Chronic obstructive pulmonary disease. 5. Hypothyroidism. 6. Chronic steroid therapy. 7. Leg edema. ARNOL/MODL Voice ID: [id number] Report ID: [id number] [facility]
--- NOTE | 2020-05-21 05:07 | EKG ---
Test Date: 2020-05-19 Test Time: 10:45:44 Data Analytics Architect: SAM MEASUREMENT RESULTS: Intervals: Rate: 82 ID: [id number] QRSD: 70 QT: 382 QTc: 446 [place]: P: 83 ID: [id number] QRS: 69 T: 80 INTERPRETIVE STATEMENTS: Normal sinus rhythm Normal ECG Compared to ECG 10/03/2019 12:48:47 No significant changes Electronically Signed On 05-21-20 05:03:58 WATER TREATMENT SPECIALIST by Kel Ro
== END 2020-05-20 15:46 | disposition home or self-care (01) ==
LOC: ER 09:47 → ERHOLD 12:20 → INTOOBSV 12:20 → 2ND 16:52
PROVIDERS: ADMIT Internal Medicine; ATTEND Internal Medicine
DX: R51.9 Headache, unspecified (principal); R53.1 Weakness; I10 Essential (primary) hypertension; J44.9 Chronic obstructive pulmonary disease, unspecified; Z20.822 Contact with and (suspected) exposure to COVID-19; M15.9 Polyosteoarthritis, unspecified; F32.9 Major depressive disorder, single episode, unspecified; K21.9 Gastro-esophageal reflux disease without esophagitis; E78.5 Hyperlipidemia, unspecified; E03.9 Hypothyroidism, unspecified
CPT/HCPCS: 96361; 93005; 85025 ×2; 87086; 80048 ×2; 36415; 83735; 85610; 80076; 85652; 81003; 84484; 83690; 83880; 0240U; 70450; 70496; 71045; 70551; 96375; 96374; 99285; Q9967; J3010 ×2; J2270 ×2; J7040; J2405 ×2; J3480; G0378 ×3; 87088

== ENCOUNTER 2020-10-20 10:39 | Emergency (ER) | payer OTHER ==
--- OUTSIDE RECORDS SUMMARY | 2020-10-20 10:43 | XMS REPORT | Continuity of Care Document ---
:1930 Author Organization [facility] t Address [address] [place] [address] Care Team Providers Name Role Phone Fidencio Pollock MD Primary Care Physician Singer PEDRO Attending Clinician Matthew Crane MD Attending Clinician Sherrie BENTLEY Attending Clinician Doctor Unassigned, Name Attending Clinician Unavailable Josef Paul MD Attending Clinician Janis PALOMARES Attending Clinician ZARI MCKEON Attending Clinician Unavailable OTSUZY Attending Clinician Unavailable Janis PALOMARES Admitting Clinician ZARI MCKEON Admitting Clinician Unavailable NED Admitting Clinician Unavailable Problems Condition Condition Condition Status Onset Resolution Last Treating Co mments Source Name Details Category Date Date Treatment Clinician Date Shortness Shortness Disease Active 2017-03 [facility] of breath of breath 2-18 st 00:00: Hospita 00 l C. C. Disease Active [facility] difficile difficile 09-16 [facility] - colitis colitis 00:00: Medical 00 Center Bilateral Bilateral Disease Active [facility] pulmonary pulmonary 09-16 [facility] - embolism embolism 00:00: Medica l 00 Center Left leg Left leg Disease Active [facility] t DVT DVT 7-06 [facility] - [facility] Medical 00 Center Gastroesop Gastroesop Disease Active [facility] hageal hageal 08-04 [facility] - reflux reflux 00:00: Medical disease disease 00 Center without without esophagiti esophagiti s s Rectal Rectal Disease Active [facility] bleeding bleeding 08-03 [facility] - 00:[facility]: Medical 00 [place] Hypokalemi Hypokalemi Disease Active [facility] [...] ESD [facility] - 00:00: by Dr. Kimball [address] [place] [address] 07/2017 Hiatal Hiatal Disease Active [facility] hernia hernia 18 st 00:00: Hospita 00 l Arrhythmia Arrhythmia Disease Active 2015-[address] 04-03 [facility] - 00:[facility]: Medical 00 [place] PVC PVC Disease Active 2015-[address] [facility] (premature (premature -20 [facility] - ventricula ventricula 00:00: Id dical r r 00 Center contractio contractio n) n) TIA TIA Disease Active 2015-[address] [facility] (transient (transient -19 [place] - ischemic ischemic 00:00: Medica l attack) attack) 00 Center Hypothyroi Hypothyroi Disease Active 2015-[address] dism dism 04-01 [facility] - 00:[facility]: Medical 00 [place] Transient Transient Disease Active [facility] cerebral cerebral 12-04 [facility] - ischemia, ischemia, 00:00: Medi yoni unspecifie unspecifie 00 Ce nter d type d type COPD COPD Disease Active [facility] (chronic (chronic [facility] - obstructiv obstructiv Me dical e e Center pulmonary pulmonary disease) disease) GERD GERD Disease Active [facility] (gastroeso (gastroeso [facility] - phageal phageal [facility] reflux reflux Center disease) disease) Anxiety Anxiety Disease Active [facility] Thyroid Thyroid Disease Active [facility] disease disease [facility] Allergies, Adverse Reactions, Alerts Allergy Allergy Status Severity Reaction(s) Onset Inactive Treating Comm ents Source Name Type Date Date Clinician Mesalami Propensi Active Itching Metho di ne ty to 03-31 st adverse 00:00: Hospita reaction 00 l s to drug Methotre Propensi Active Shortness Of Methodi xate ty to Breath 03-31 adverse 00:00: Hospita reaction 00 l s to drug Prometha Propensi Active Other (See Me thodi zine ty to Comments) 03-31 adverse 00:00: Hospita reaction 00 l s to drug Sulfasal Propensi Active Anaphylaxis M ethodi azine ty to 03-31 adverse 00:00: Hospita reaction 00 l s to drug Adalimum Propensi Active Shortness Of 2015-03 [facility]i ab ty to Breath 04-20 st adverse 00:00: Hospita reaction 00 l s to drug Abatacep Propensi Active Other (See 2015-03 Joint Me thodi t ty to Comments) 04-[address] adverse 00:00: Hospita reaction 00 l s to drug Mesalami Drug Active Rash [...] 00 Center Sulfasal Drug Active Other (See Headaches [facility] azine Allergy Comments) 12-04 , [facility] - 00:00: weakness, Medical 00 no energy Center Family History Family Member Diagnosis Comments Start Date Stop Date Source Natural father [facility] father Vision loss [facility] Natural father Cancer [facility] Maternal grandfather No Known Problems [facility] Maternal grandmother No Known Problems [facility] Natural mother [facility]roid [facility] Natural mother Vision loss [facility] Paternal grandfather No Known Problems [facility] Paternal grandmother No Known Problems [facility] Natural sister No Known Problems Met [facility] Natural brother No Known Problems [facility] Social History Social Habit Start Date Stop Date Quantity Comments Source Tobacco use and 2018-02-28 2018-02-28 Never used [facility] 00:[facility]00 [facility] Alcohol intake 2018-02-28 2018-02-28 Current [facility] 00:00:00 00:00:00 non-drinker of Hospital alcohol (finding) Sex Assigned At [birth year] [facility] Smoking Status Start Date Stop Date Source [facility] smoker [facility] Medications Ordered Filled Start Stop Current Ordering Indication Dosage Frequency Signature Comments Components Source Medication Medication Date Date Medication? Clinician (SIG) Name Name lisinopril 2017-03 Yes 20mg QD Take 1 Meth[facility] di (PRINIVIL,Z 2-21 tablet (20 st ESTRIL) 20 00:00: mg total) Ho spita mg tablet 00 by mouth l daily for 30 days. ALPRAZolam 2017-03 Yes .25mg QD Take 0.25 M ethodi (XANAX) 2-[address] 0.25 MG 22:02: mouth Hospita tablet 34 every l morning. atorvastati 2017-03 Yes 40mg QD Take 40 mg Methodi n (LIPITOR) 2-[address] 40 MG 22:02: nightly. Hospita tablet 34 l roflumilast 2017-03 Yes 500ug QD Take 500 M ethodi (DALIRESP) 2-[address] 500 mcg 22:02: mouth Hospita tablet 34 daily. l famotidine 2017-03 Yes 20mg QD Take 20 mg M ethodi (PEPCID) 20 2-[address] MG tablet 22:02: nightly. Hosp juan a 34 l levothyroxi 2017-03 Yes 50ug QD Take 50 Met hodi ne 2-[address] (SYNTHROID, 22:02: mouth Hospi ta LEVOXYL) 50 34 daily. l mcg tablet PARoxetine 2017-03 Yes 40mg QD Take 40 mg M ethodi (PAXIL) 10 2-[address] MG tablet 22:02: daily with Ho spita 34 dinner. l predniSONE 2017-03 Yes 5mg Q.5D Take 5 mg Me thodi (DELTASONE) 2-[address] 5 mg tablet 22:02: (two) Hospi ta 34 times a l day. budesonide- 2017-03 Yes 2{puff} Q.5D Inhale 2 [facility]i formoterol 2-[address] (SYMBICORT) 22:02: (two) Hospi ta 160-4.5 34 times a l mcg/actuati day. on inhaler albuterol 2017-03 Yes 2{puff} Q6H Inhale 2 M ethodi (PROAIR 2-[address] HFA,PROVENT 22:02: every 6 Hos [place] 34 (six) l HFA,VENTOLI hours as N HFA) 90 needed for mcg/actuati wheezing. on inhaler tiotropium 2017-03 Yes 1{capsu QD Place 1 M ethodi (SPIRIVA) 2-20 le} capsule st 18 mcg per 22:02: into Hospita inhalation 34 inhaler l capsule and inhale once daily. acetaminoph 2017-03 Yes 1{tbl} Q6H Take 1 Me thodi en-codeine 2-[address] (TYLENOL 22:02: mouth Hospita WITH 34 every 6 l CODEINE #3) (six) 300-30 mg hours as per tablet needed for moderate pain (Headaches ). benzonatate 2017-03 Yes 200mg Q.[id number] Take 200 [facility] (TESSALON) 2-[id number] 100 MG 22:02: 3D mouth 3 Hospita capsule 34 (three) l times a day as needed for cough. docusate 2017-03 Yes 100mg Q.5D Take 100 Meth rocky sodium 2-[address] (COLACE) 22:02: mouth 2 Hospit a 100 MG 34 (two) l capsule times a day as needed for constipati on. albuterol 2017-03 Yes 2.5mg Q.25837810 Take 2.5 [facility] sulfate 2-[id number] (PROVENTIL) 22:02: 3D nebulizati Hospita 2.5 mg/0.5 34 on 3 l mL solution (three) for times a nebulizatio day. n melatonin 3 2017-03 Yes 3mg QD Take 3 mg M ethodi mg tablet 2-[address] 22:02: nightly as Hospita 34 needed for l sleep. umeclidiniu 2017- Yes 1{puff} QD Inhale [address] m (INCRUSE 7-07 puff by [facility] - ELLIPTA) 13:41: mouth via Medi yoni 62.5 58 inhaler Center mcg/actuati daily . on DsDv powder for inhalation vancomycin 2017- Yes 125mg Take [address] (VANCOCIN) 7-07 mg by [facility] - 125 MG 13:41: mouth 3 Medical capsule 58 (three) Center times daily with meals. rivaroxaban Yes Take by [facility] (XARELTO) 7-07 mouth [facility] - 20 mg Tab 13:41: daily with Me dical tablet 58 dinner. Center PARoxetine 2017- Yes 40mg Take [address] (PAXIL) 40 7-07 by mouth [facility] - MG tablet 13:41: daily with Me dical 57 dinner . Center predniSONE 2017- Yes 5mg Q.5D Take [address] (DELTASONE) 7-07 by mouth 2 [facility] - 5 MG tablet 13:41: (two) Medic al 57 times Center daily . cycloSPORIN 2017- Yes 1[drp] Q.5D [address] E 7-07 (two) [facility] - (RESTASIS) 13:41: times Medica l 0.05 % 57 daily. Center ophthalmic emulsion budesonide- 2017- Yes 2{puff} Q.5D Inhale [address] formoterol 7-07 puffs by [facility] - (SYMBICORT) 13:41: mouth via M edical 160-4.5 57 inhaler 2 Center mcg/actuati (two) on inhaler times daily. albuterol 2017- Yes 1{puff} Inhale [address] HFA 7-07 puff by [facility] - (VENTOLIN 13:41: mouth via [facility] ical HFA) 90 57 inhaler Center mcg/actuati [...] 57 daily with Center breakfast . levothyroxi 2018-0 Yes 50ug Take [address] ne 7-07 mcg by [facility] - (SYNTHROID, 13:41: mouth Medic al LEVOTHROID) 57 Every Center 50 MCG morning on tablet an empty stomach. roflumilast 2018-0 Yes QD Take by [facility] (DALIRESP) 7-07 mouth [facility] - 500 mcg Tab 13:41: daily. Medi yoni tablet 57 Center IRON 20180 Yes Take by [facility] FUM/FOLIC 7-07 mouth. [facility] - ACID/MV,MIN 13:41: Medica l 15 57 Center (HEMOCYTE-P SIOBHAN ORAL) tiotropium 2017-0 Yes 18ug QD Inhale [address] (SPIRIVA) 7-07 mcg by [facility] - 18 mcg 13:41: mouth via Medica l inhalation 57 inhaler Center capsule daily. Procedures This patient has no known procedures. Plan of Care Planned Activity Planned Date Details Comments Source Future Scheduled Test 65+ PNEUMOCOCCAL [facility] VACCINE (1 of 2 - PPSV23) [code = 65+ PNEUMOCOCCAL VACCINE (1 of 2 - PPSV23)] Future Scheduled Test COVID-19 VACCINE (1) [facility] [code = COVID-19 VACCINE (1)] Future Scheduled Test SHINGLES VACCINES (#1) [facility] [code = SHINGLES VACCINES (#1)] Future Scheduled Test INFLUENZA VACCINE [code [facility] = INFLUENZA VACCINE] Encounters Start End Encounter Admission Attending Care Care Encounter Source Date/Time Date/Time Type Type Clinicians Facility Department ID 2020-02-19 2020-02-19 Emergency Singer [facility] [id number] 11:01:00 16:40:00 Naun Cunha [id number] [place] 4.2.7.2.686 [place] [id number] 2019-06-18 2019[facility] [id number] 07:52:37 08:22:37 ne Visit Nehemiah Matthew PRIMARY [id number] CARE 4.2.7.2.686 [place] [id number] 2019-05-04 2019-05-04 Telephone Ifrah Balderas [facility] [id number] 00:00:00 00:00:00 Y [facility] [id number] CLINICS 4.2.7.2.686 [id number] 2019-04-26 2019-04-26 Telephone Ifrah Balderas [facility] [id number] 00:00:00 00:00:00 Y HEALTH [id number] CLINICS 4.2.7.2.686 [id number] 2019-04-20 2019-04-20 [facility] Emma [facility]asFormerly [facility] [id number] 08:45:00 23:59:00 Encounter Y HEALTH [id number] [facility] 4.2.7.2.686 [id number] 2019-04-19 2019-04-19 [facility] [id number] 15:08:00 23:59:00 Encounter Alphonse 350.1.13.10 [place] 4.2.7.2.686 [place] [id number] 2019-04-17 2019-04-17 Orders Doctor JOSE [id number] 00:00:00 00:00:00 Only Unassigned, DELFINO 350.1.13.10 [facility] 4.2.7.2.686 [id number] 2019-04-17 2019-04-17 Case Emma [facility]asFormerly [facility] [id number] 00:00:00 00:00:00 Management Y HEALTH 350.1.13.10 [facility] 4.2.7.2.686 [id number] 2019-04-17 2019-04-17 Telephone Ifrah Balderas [facility] 1.2.840.11 [id number] 00:00:00 00:00:00 [facility] 350.1.13.10 [facility] 4.2.7.2.686 [id number] 2019-04-10 2019-04-12 [facility] Mac Paul 1.2.840 .114 [id number] 14:52:41 20:30:00 Encounter Mac Paul 350.1.13.1 0 [facility] 4.2.7.2.686 [id number] 2019-04-12 2019-04-12 Case Ifrah Balderas [facility] [id number] 00:00:00 00:00:00 [facility] 350.1.13.10 [place] [id number] [id number] Results Test Description Test Time Test Comments Results Result Comments Source SARS-COV2/RT-PCR ([facility]) 2019-10-04 09:38:00 Test Item Value Reference Range Interpretation Comme nts SARS-COV2/RT-PCR (test code = 2457431) Negative Not Detected, N egative, See external report for linked test SARS-COV-2 PERFORMING LAB (test code = [facility] 0559648) Negative result for this test determines that [...] 564(g) of the Act.Fact Sheet for Healthcare Providers:https://www.[employer]ira [employer]/sites/default/files/product/documents/Fact_Shee r_ON_Bwbvsipuu_Kgcy_NMXB-SeB-6.pdfFact Sheet for Healthcare Patients:https://www.[employer]/sites/default/files/product/ documents/Yxna_Xpbcj_Cmvxpzqs_Hkvt_OKKT-YuL-2.pdfPerforming Laboratory:[facility], [place] [address]VJGS-APQ2/RT-PCR ([facility])2019-07-04 07:03:00 Test Item Value Reference Range Interpretation Comments SARS-COV2/RT-PCR (test Not Detected Not Detected, Negative code = 4367389) SARS-COV-2 PERFORMING LAB [facility] (test code = 2711408) Negative results do not preclude SARS-CoV-2 infection [...] of the Act.Fact Sheet for Healthcare Pro viders:https://www.TopFun/Documents/Xpert%20Xpress%20SARS%20CoV-2/Fact%20Sh eets/3023802%75ZDHC-WZF-0%20HEALTHCARE%20PROVIDERS%20FACT%20SHEET.pdfFact Sheet for Healthcare Patients:https://www.GENELINK/Documents/Xpert%20Xpress%20SARS%20CoV-2/Fact%20Sheets/3023801%20SARS-COV -2%20PATIENT%20FACT%20SHEET.pdfPerforming Laboratory:[facility] [place], [place] [address]XXXKDX [id number] 16:22:00Surgical Pathology Report Case: [id number] Authorizing Provider: Misha Calloway MD Collected: 09/16/2017 1538 Ordering Location: [address] Received: 09/19/2017 0820 Service Pathologist: Larry Cohn MD Specimen: Polyp, Colon - Rectosigmoid, POLYP TAKEN BY HOT SNARE RECTO-SIGMOID, POLYPECTOMY- TUBULAR ADENOMA- CAUTERIZED EDGE, NEGATIVE FOR ADENOMATOUS CHANGE Signing PathologistDirect Phone Line: [phone] signed by Larry Cohn MD on 09/20/2017 at 4:22 [id number] bleedRectosigmoid colon polypThe specimen is received in [...] = 1.9 mg/dL 1.6-2.6 627) BASIC METABOLIC [id number] 07:32:00 Test Item Value Reference Range Interpretation [...] S NOT APPLICABLE FOR DIALYSIS PATIEN TS. [id number] 06:42:00 Test Item Value Reference Range Interpretation [...] 0-1 PERCENT (BEAKER) (test code = 2801) [id number] 19:07:00 Test Item Value Reference Range Interpretation Comments MAGNESIUM (BEAKER) (test code = 1.9 mg/dL 1.6-2.6 627) BASIC METABOLIC [id number] 19:07:00 Test Item Value Reference Range Interpretation [...] WBC 0-0 (BEAKER) (test code = 413) [id number] 06:56:00 Test Item Value Reference Range Interpretation Comments PHOSPHORUS (BEAKER) (test code = 2.7 mg/dL 2.3-4.7 604) [id number] 06:56:00 Test Item Value Reference Range Interpretation Comments MAGNESIUM (BEAKER) (test code = 1.9 mg/dL 1.6-2.6 627) BASIC METABOLIC [id number] 06:56:00 Test Item Value Reference Range Interpretation [...] APPLICABLE FOR DIALYSIS PATIEN TS. HEPATIC FUNCTION [id number] 06:56:00 Test Item Value Reference Range Interpretation [...] code = 10 U/L 6-55 347) CALCIUM, [id number] 06:36:00 Test Item Value Reference Range Interpretation Comments CALCIUM IONIZED (BEAKER) (test 1.05 mmol/L 1.12-1.27 L code = 698) PH, BLOOD (BEAKER) (test code = 7.46 1810) PROTHROMBIN [id number] 06:35:00 Test Item Value Reference Range Interpretation [...] PERCENT (BEAKER) (test code = 2801) TISSUE [id number] 14:52:00Surgical Pathology Report Case: [id number] Authorizing Provider: Ricardo Wilson MD Collected: 08/02/2017 1715 Ordering Location: 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 PROTHROMBIN [id number] 05:59:00 Test Item Value Reference Range Interpretation Comments PROTIME (BEAKER) (test code = 14.6 seconds 11.7-14.7 759) INR (BEAKER) (test code = 370) 1.1 <=5.9 RECOMMENDED COUMADIN/WARFARIN INR THERAPY RANGESSTANDARD DOSE: 2.0 - 3.0 Includes: PROPHYLAXIS forvenous thrombosis, systemic embolization; TREATMENT for venous thrombosis and/or pulmonary embolus.HIGH RISK: Target INR is 2.5-3.5 for patients with mechanical heart valves.URINALYSIS W/ [id number] 14:53:00 Test Item Value Reference Range Interpretation [...] SOURCE(BEAKER) (test code = 2795) HEPATIC FUNCTION [id number] 06:31:00 Test Item Value Reference Range Interpretation [...] = 15 U/L 6-55 347) BASIC METABOLIC [id number] 06:31:00 Test Item Value Reference Range Interpretation [...] APPLICABLE FOR DIALYSIS PATIEN TS. BASIC METABOLIC [id number] 06:30:00 Test Item Value Reference Range Interpretation [...] PATIEN TS. CBC W/PLT COUNT & AUTO [id number] 06:25:00 Test Item Value Reference Range Interpretation [...] PERCENT (BEAKER) (test code = 2801) PROTHROMBIN [id number] 06:21:00 Test Item Value Reference Range Interpretation [...]
--- NOTE | 2020-10-20 12:26 | RAD REPORT ---
EXAM DESCRIPTION: CTAbdomen Pelvis W Contrast - 10/20/2020 11:57 am CLINICAL HISTORY: Abdominal pain. rectal bleeding COMPARISON: Abdomen Pelvis W Contrast dated 10/03/2019; Abdomen Pelvis W Contrast dated 03/22/2019; Abdomen Pelvis W Contrast dated 01/11/2019; Abdomen Pelvis W Contrast dated 11/27/2018 TECHNIQUE: Biphasic CT imaging of the abdomen and pelvis was performed with 100 ml non-ionic IV cont rast. All CT scans are performed using dose optimization technique as appropriate and may include automated exposure control or mA/KV adjustment according to patient size. FINDINGS: Small nodular foci within the right lower lobe which are unchanged. These are of doubtful clinical significance. Circumferential thickened distal esophagus. Question prior fundoplication. Otto ral annular calcifications. No focal liver lesions are identified. Mild intra and extrahepatic biliary ductal dilatation is simil ar. Cholecystectomy. The adrenal glands are unremarkable. Mild main pancreatic duct dilatation which is chronic. No focal renal lesions are identified. No retroperitoneal lymphadenopathy. No bowel obstr uction is seen. Hysterectomy. Diverticulosis is present. No evidence of acute diverticulitis. No evid ence of appendicitis. Small bowel containing left inguinal hernia without bowel obstruction. No bowel obstruction, free air, free fluid or abscess. The appendix is normal. No evidence of signi ficant lymphadenopathy. No suspicious bony findings. IMPRESSION: No acute intra-abdominal or pelvic finding. Near neck small bowel containing left inguinal hernia without complicating features. This is [facility] e 10/02/2022
[2020-10-20] MEDS ORDERED: NA CHLORIDE 0.9% 500 ML ONE (13:01)
[2020-10-20 14:47] LABS: Basophils % 0.4 % (0-1.3); Hematocrit 39.7 % (36.0-45.0); Lymphocytes % 20.9 % (15.3-44.8); MPV 6.2 fL (7.6-11.3); RBC Red Blood Cell Count 4.17 M/uL (3.86-4.86)
[2020-10-20 14:55] LABS: Protime INR 0.89
[2020-10-20 15:19] LABS: ALT/SGPT 24 U/L (12-78); AST/SGOT 19 U/L (15-37); Albumin 2.7 g/dL (3.4-5.0); Alkaline Phosphatase 51 U/L (45-117); BUN Blood Urea Nitrogen 15 mg/dL (7-18); Bicarbonate 30 mmol/L (21-32); Bilirubin Direct 0.2 mg/dL (0-0.2); Bilirubin Total 0.8 mg/dL (0.2-1.0); Glucose Level 88 mg/dL (74-106); Lipase 384 U/L (73-393); Potassium 4.5 mmol/L (3.5-5.1); Protein, Total 6.2 g/dL (6.4-8.2); Sodium Level 140 mmol/L (136-145)
--- NOTE | 2020-10-20 15:20 | ER ---
Nurse's Notes [facility] Name: Elva Jenkins Age: 89 yrs Sex: Female : 1930 Arrival Date: 10/20/2020 Time: 10:44 Bed 2 Private MD: Diagnosis: Rectal bleeding;Unspecified hemorrhoids Presentation: 10/20 11:55 Chief complaint: Patient states: "I am having some bleeding with my stool.". jd3 Coronavirus screen: At this time, the client does not indicate any symptoms associated with coronavirus-19. Ebola Screen: Patient negative for fever greater than or equal to 101.5 degrees Fahrenheit, and additional compatible Ebola Virus Disease symptoms. Initial Sepsis Screen: Does the patient meet any 2 criteria? No. Patient's initial sepsis screen is negative. Does the patient have a suspected source of infection? No. Patient's initial sepsis screen is negative. Risk Assessment: Do you want to hurt yourself or someone else? Patient reports no desire to harm self or others. Onset of symptoms was October 20, 2020. 11:55 Method Of Arrival: EMS: [facility] jd3 11:55 Acuity: TAVON 3 jd3 Historical: - Allergies: 15:21 Asacol; jd3 15:21 Aspirin; jd3 15:21 Humira; jd3 15:21 Methotrexate; jd3 15:21 Orencia; jd3 15:21 Phenergan; jd3 15:21 Sulfazine; jd3 - PMHx: 15:21 Hyperlipidemia; GERD; Hypothyroidism; Depression; Arthritis; COPD; jd3 - Immunization history:: Adult Immunizations up to date. - Family history:: not pertinent. - Social history:: Smoking status: unknown. - Hospitalizations: : No recent hospitalization is reported. Screenin:20 Abuse screen: Denies threats or abuse. Nutritional screening: No deficits noted. jd3 Tuberculosis screening: No symptoms or risk factors identified. Fall Risk IV access (20 points). Ambulatory Aid- Crutches/Cane/Walker (15 pts). Gait- Weak (10 pts.). Mental Status- Oriented to own ability (0 pts). Total Hutchinson Fall Scale indicates Low Risk Score (25-44 pts). Fall prevention measures have been instituted. Side Rails Up X 2 Placed close to Nursing Station Frequent Obs/Assesments occuring. Assessment: 11:50 General: Appears in no apparent distress. comfortable, Behavior is calm, cooperative, jd3 appropriate for age. Pain: Complains of pain in abdomen Quality of pain is described as aching. Neuro: Level of Consciousness is awake, alert, obeys commands, Oriented to person, place, time, situation. Cardiovascular: Denies chest pain, Capillary refill < 3 seconds Patient's skin is warm and dry. Respiratory: Airway is patent Respiratory effort is even, unlabored, Respiratory pattern is regular, symmetrical, Denies cough, shortness of breath. GI: Abdomen is round non-distended, Abd is soft and non tender X 4 quads. Reports bloody stool, Patient currently denies nausea, vomiting. : No signs and/or symptoms were reported regarding the genitourinary system. EENT: No signs and/or symptoms were reported regarding the EENT system. Derm: Skin is intact, Skin is dry, Skin is normal, Skin temperature is warm. Musculoskeletal: Circulation, motion, and sensation intact. Range of motion: intact in all extremities. 12:47 Reassessment: No changes from previously documented assessment. Patient and/or family jd3 updated on plan of care and expected duration. Pain level reassessed. Patient is alert, oriented x 3, equal unlabored respirations, skin warm/dry/pink. 14:09 Reassessment: Patient appears in no apparent distress at this time. No changes from jd3 previously documented assessment. Patient and/or family updated on plan of care and expected duration. Pain level reassessed. Patient is alert, oriented x 3, equal unlabored respirations, skin warm/dry/pink. 15:27 Reassessment: Patient appears in no apparent distress at this time. Patient and/or jd3 family updated on plan of care and expected duration. Pain level reassessed. Patient is alert, oriented x 3, equal unlabored respirations, skin warm/dry/pink. report called to [employer] and they reported the pt [facility] so no report to a nurse is required. pt called family for ride for discharge. awaiting ride. Vital Signs: 12:00 BP 140 / 76; Pulse 70; Resp 25 S; Pulse Ox 97% on 3 lpm NC; jd3 12:47 BP 149 / 70; Pulse 84; Resp 24 S; Pulse Ox 100% on 2 lpm NC; jd3 14:09 BP 154 / 82; Pulse 80; Resp 25 S; Pulse Ox 97% on 3 lpm NC; jd3 ED Course: 10:44 Patient arrived in ED. iw 10:49 Kyle Darby MD is Attending Physician. rn 11:55 Narciso Jha RN is Primary Nurse. jd3 11:56 Triage completed. jd3 11:57 CT Abd/Pelvis - IV Contrast Only In Process Unspecified. EDMS 12:01 Arm band placed on. jd3 12:01 Inserted saline lock: 22 gauge in right antecubital area, using aseptic technique. jd3 Blood collected. 15:20 Britt Topete MD is Referral Physician. rn 15:23 Patient has correct armband on for positive identification. Placed in gown. Bed in low jd3 position. Call light in reach. Side rails up X2. engine monitor on. Pulse ox on. NIBP on. 15:23 No provider procedures requiring assistance completed. jd3 Administered Medications: 12:43 Drug: NS 0.9% 500 ml Route: IV; Rate: bolus; Site: right antecubital; jd3 Outcome: 15:20 Discharge ordered by . rn 16:12 Patient left the ED. [facility] Signatures: Dispatcher [employer] Ruth Dallas RN RN Kyle Darby MD MD rn Martinez, Maria [facility] Narciso Jha RN RN jfelix Corrections: (The following items were deleted from the chart) 14:09 12:00 BP 140 / 76; Pulse 70bpm; Resp 17bpm; Spontaneous; Pulse Ox 97% 3 lpm Nasal jd3 Cannula; jd3 14:09 12:47 BP 149 / 70; Pulse 84bpm; Resp 17bpm; Spontaneous; Pulse Ox 100% 2 lpm Nasal jd3 Cannula; jd3
--- NOTE | 2020-10-20 15:21 | EDPHYS ---
Physician Documentation [facility] Name: Elva Jenkins Age: 89 yrs Sex: Female : 1930 Arrival Date: 10/20/2020 Time: 10:44 Bed 2 Private MD: ED Physician Kyle Darby HPI: 10/20 11:20 This 89 yrs old Female presents to ER via Unassigned with complaints of rn Rectal Bleeding. 11:20 The patient presents to the emergency department with bleeding from the rectum/anus, rn that is mild. Onset: The symptoms/episode began/occurred this morning. Context: the patient has no known special context relating to the rectal area complaint(s). Modifying factors: The symptoms are alleviated by nothing, The symptoms are aggravated by bowel movement, sitting position. Associate signs and symptoms: Pertinent positives: constipation, Pertinent negatives: diarrhea, dysuria, fever, vomiting. The patient has experienced similar episodes in the past. The patient has not recently seen a physician. Reports has been experiencing moderate constipation for the last few days, today was seated and passed bright red blood from rectum. Reports was constant. Has had this multiple times in the past. Has had rectal mass removed as well as polyps. Not on any blood thinners. Reports generalized fatigue but no shortness of breath or chest pain.. Historical: - Allergies: 15:21 Asacol; jd3 15:21 Aspirin; jd3 15:21 Humira; jd3 15:21 Methotrexate; jd3 15:21 Orencia; jd3 15:21 Phenergan; jd3 15:21 Sulfazine; jd3 - PMHx: 15:21 Hyperlipidemia; GERD; Hypothyroidism; Depression; Arthritis; COPD; jd3 - Immunization history:: Adult Immunizations up to date. - Family history:: not pertinent. - Social history:: Smoking status: unknown. - Hospitalizations: : No recent hospitalization is reported. ROS: 11:20 Constitutional: Negative for fever, chills, and weight loss, Eyes: Negative for injury, rn pain, redness, and discharge, Neck: Negative for injury, pain, and swelling, Cardiovascular: Negative for chest pain, palpitations, and edema, Respiratory: Negative for shortness of breath, cough, wheezing, and pleuritic chest pain, Abdomen/GI: Negative for abdominal pain, nausea, vomiting, diarrhea Back: Negative for injury and pain, : Negative for injury, bleeding, discharge, and swelling, MS/Extremity: Negative for injury and deformity, Skin: Negative for injury, rash, and discoloration, Neuro: Negative for headache, numbness, tingling, and seizure. 11:20 All other systems are negative. Exam: 11:20 Constitutional: This is a well developed, well nourished patient who is awake, alert, rn and in no acute distress. Head/Face: Normocephalic, atraumatic. Eyes: Pupils equal round and reactive to light, extra-ocular motions intact. Lids and lashes normal. Conjunctiva and sclera are non-icteric and not injected. Cornea within normal limits. Periorbital areas with no swelling, redness, or edema. ENT: Moist mucous membranes Cardiovascular: Regular rate and rhythm. No pulse deficits. Respiratory: No increased work of breathing, no retractions or nasal flaring. Abdomen/GI: Soft, non-tender patient with a couple external hemorrhoids that are friable but no active bleeding or signs of thrombosis. Skin: Warm, dry MS/ Extremity: Pulses equal, no cyanosis. Neuro: Awake and alert, GCS 15 13:08 ECG was reviewed by the Attending Physician. rn Vital Signs: 12:00 BP 140 / 76; Pulse 70; Resp 25 S; Pulse Ox 97% on 3 lpm NC; jd3 12:47 BP 149 / 70; Pulse 84; Resp 24 S; Pulse Ox 100% on 2 lpm NC; jd3 14:09 BP 154 / 82; Pulse 80; Resp 25 S; Pulse Ox 97% on 3 lpm NC; jd3 MDM: 10:49 Patient medically screened. rn 13:09 Data interpreted: equipment monitor phototypesetting: rate is 84 beats/min, rhythm is normal sinus rhythm, rn regular, with no ectopy, Interpretation: normal rate, normal rhythm, Pulse oximetry: on room air is 100 %. Interpretation: normal. 15:18 Differential diagnosis: hemorrhoids, fissure, , Internal hemorrhoid, diverticulitis, rn diverticulosis, colon mass. Data reviewed: vital signs, nurses notes, old medical records, lab test result(s), radiologic studies, CT scan, and as a result, I will discharge patient. Counseling: I had a detailed discussion with the patient and/or guardian regarding: the historical points, exam findings, and any diagnostic results supporting the discharge/admit diagnosis, lab results, radiology results, the need for outpatient follow up, to return to the emergency department if symptoms worsen or persist or if there are any questions or concerns that arise at home. Special discussion: I discussed with the patient/guardian in detail that at this point there is no indication for admission to the hospital. It is understood, however, that if the symptoms persist or worsen the patient needs to return immediately for re-evaluation. Based on the history and exam findings, there is no indication for further emergent testing or inpatient evaluation. I discussed with the patient/guardian the need to see the wood handler for further evaluation of the symptoms. ED course: Consulted with Dr. Pollock, he requests patient be discharged with Anusol and GI follow-up given hemoglobin normal and CT without acute findings. Explained this to patient and her son Josef Jenkins, who understands and agrees with plan. Has seen Dr. Topete multiple times in the past.. 10/20 10:52 Order name: Basic Metabolic Panel rn 10/20 10:52 Order name: CBC with Diff; Complete Time: 15:04 rn 10/20 10:52 Order name: Hepatic Function rn 10/20 10:52 Order name: Lipase rn 10/20 10:52 Order name: PT-INR; Complete Time: 15:04 rn 10/20 10:52 Order name: Ptt, Activated; Complete Time: 15:04 rn 10/20 10:52 Order name: IV Saline Lock; Complete Time: 12:06 rn 10/20 10:52 Order name: Labs collected and sent; Complete Time: 12:06 rn 10/20 10:52 Order name: CT Abd/Pelvis - IV Contrast Only; Complete Time: 12:30 rn 10/20 10:52 Order name: Type And Screen; Complete Time: 12:48 rn 10/20 10:53 Order name: Lactate; Complete Time: 12:30 rn 10/20 10:53 Order name: EKG; Complete Time: 10:53 rn 10/20 12:10 Order name: CREATININE WHOLE BLOOD; Complete Time: 12:30 EDCA 10/20 10:53 Order name: EKG - Nurse/Tech; Complete Time: 12:43 rn 10/20 12:06 Order name: Labs - recollect needed: recollect all labs except the type and screen.; bd Complete Time: 15:29 EC:08 Rate is 85 beats/min. Rhythm is regular. QRS [place] is Normal. TN interval is normal. QRS rn interval is normal. QT interval is normal. No Q waves. T waves are Normal. No ST changes noted. Clinical impression: Normal ECG. Interpreted by me. Reviewed by me. Administered Medications: 12:43 Drug: NS 0.9% 500 ml Route: IV; Rate: bolus; Site: right antecubital; jd3 Disposition Summary: 10/20/20 15:20 Discharge Ordered Location: Home rn Problem: new rn Symptoms: have improved rn Condition: Stable rn Diagnosis - Rectal bleeding rn - Unspecified hemorrhoids rn Followup: rn - With: Britt Topete MD - When: As needed - Reason: Recheck today's complaints, Re-evaluation by your physician Discharge Instructions: - Discharge Summary Sheet rn - Hemorrhoids rn - Lower Gastrointestinal Bleeding rn Forms: - Medication Reconciliation Form rn - Thank You Letter rn - Antibiotic 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 Head/Face: Normocephalic, atraumatic. Eyes: Pupils equal round and reactive to light, extra-ocular motions intact. Lids and lashes normal. Conjunctiva and sclera are non-icteric and not injected. Cornea within normal limits. Periorbital areas with no swelling, redness, or edema. ENT: Moist mucous membranes Cardiovascular: Regular rate and rhythm. No pulse deficits. Respiratory: No increased work of breathing, no retractions or nasal flaring. Abdomen/GI: Soft, non-tender Skin: Warm, dry MS/ Extremity: Pulses equal, no cyanosis. Neuro: Awake and alert, GCS 15 rn
[2020-10-20 16:25] VITALS: BP 154/82; O2SAT 97
--- NOTE | 2020-10-21 07:58 | EKG ---
Test Date: 2020-10-20 Test Time: 12:39:09 Internet Application Developer: TREY MEASUREMENT RESULTS: Intervals: Rate: 82 MS: 134 QRSD: 64 QT: 362 QTc: 422 [place]: P: 68 MS: 134 QRS: 28 T: 62 INTERPRETIVE STATEMENTS: Normal sinus rhythm with sinus arrhythmia Possible Left atrial enlargement Borderline ECG Compared to ECG 05/19/2020 10:45:44 No significant changes Electronically Signed On 10-21-20 07:56:07 CDT by Kel Ro
--- NOTE | 2020-10-22 13:03 | EKG ---
Test Date: 2020-10-20 Test Time: 12:40:41 Shrimp Packer: TREY MEASUREMENT RESULTS: Intervals: Rate: 85 NE: 134 QRSD: 68 QT: 370 QTc: 440 [place]: P: 69 NE: 134 QRS: 26 T: 65 INTERPRETIVE STATEMENTS: Normal sinus rhythm Possible Left atrial enlargement Borderline ECG Compared to ECG 10/20/2020 12:39:09 Sinus arrhythmia no longer present Electronically Signed On 10-22-20 12:59:36 CDT by Kel Ro
== END 2020-10-20 16:12 | disposition home or self-care (01) ==
LOC: ER 10:39
DX: K64.9 Unspecified hemorrhoids (principal); Z88.6 Allergy status to analgesic agent; Z88.8 Allergy status to other drugs, medicaments and biological substances
CPT/HCPCS: 93005 ×2; 85025; 80048; 36415; 86900; 86850; 85610; 82565; 86901; 80076; 83605; 85730; 83690; 74177; 99284; Q9967; J7040

== ENCOUNTER 2020-12-05 10:21 | Inpatient (IN) | payer OTHER ==
[2020-12-05 11:04] LABS: Urine Blood Trace-intact (Negative); Urine Glucose Negative (Negative); Urine Protein Negative (Negative); Urine Specific Gravity 1.025 (1.005-1.030); Urine pH 7.5 (5.0-7.0)
[2020-12-05] MEDS ORDERED: ONDANSETRON 4 MG/2 ML VIAL ONE (11:09)
[2020-12-05] MEDS ORDERED: MORPHINE 2 MG/ML SYR ONE ×2 (11:09→13:30)
[2020-12-05] MEDS ORDERED: NA CHLORIDE 0.9% 1,000 ML ONE (11:10)
[2020-12-05 11:48] LABS: Absolute Lymphocytes (CBC) 2.1 K/uL (0.7-4.9); Basophils % 0.2 % (0-1.3); Hematocrit 41.7 % (36.0-45.0); Lymphocytes % 13.4 % (15.3-44.8); MPV 6.9 fL (7.6-11.3); RBC Red Blood Cell Count 4.43 M/uL (3.86-4.86)
[2020-12-05 11:49] LABS: Protime INR 0.99
[2020-12-05 11:49] LABS: Urine Bacteria <20 /HPF (<20); Urine RBC 20-50 /HPF (NONE SEEN)
[2020-12-05 11:50] LABS: ALT/SGPT 29 U/L (12-78); AST/SGOT 26 U/L (15-37); Albumin 2.9 g/dL (3.4-5.0); Alkaline Phosphatase 60 U/L (45-117); Amylase 42 U/L (25-115); BUN Blood Urea Nitrogen 12 mg/dL (7-18); Bicarbonate 30 mmol/L (21-32); Bilirubin Direct 0.4 mg/dL (0-0.2); Bilirubin Total 1.9 mg/dL (0.2-1.0); Creatine Phosphokinase 203 U/L (26-192); Glucose Level 122 mg/dL (74-106); Lipase 92 U/L (73-393); Potassium 3.6 mmol/L (3.5-5.1); Protein, Total 6.5 g/dL (6.4-8.2); Sodium Level 137 mmol/L (136-145); Troponin (Emerg Dept Use Only) 0.08 ng/mL (0.0-0.045)
--- NOTE | 2020-12-05 12:30 | RAD REPORT ---
EXAM DESCRIPTION: RAD - Hip Left 2 View - 12/05/2020 12:17 pm CLINICAL HISTORY: PAIN COMPARISON: Abdomen Pelvis W Contrast dated 10/20/2020 FINDINGS: Displaced left subcapital femoral neck fracture with superior and lateral displacement of more than 2 cm. The residual femoral is located . IMPRESSION: Significantly displaced left subcapital femoral neck fracture.
--- NOTE | 2020-12-05 12:31 | RAD REPORT ---
EXAM DESCRIPTION: RAD - Pelvis - 12/05/2020 12:19 pm CLINICAL HISTORY: PAIN COMPARISON: Pelvis dated 07/03/2019 FINDINGS: No pelvic fractures identified. Displaced left subcapital femoral neck fracture. No disloc ation is seen. IMPRESSION: Displaced left subcapital femoral neck fracture. No pelvic fracture identified.
--- NOTE | 2020-12-05 12:36 | RAD REPORT ---
EXAM DESCRIPTION: Asaf Single View12/05/2020 12:16 pm CLINICAL HISTORY: Chest pain COMPARISON: May 2020 FINDINGS: Mild chronic changes right lung base. The lungs appear clear of acute infiltrate. The heart is normal size. conventions assistant in place IMPRESSION: No acute abnormalities displayed
--- NOTE | 2020-12-05 12:56 | ER ---
Nurse's Notes [facility] Name: Elva Jenkins Age: 89 yrs Sex: Female : 1930 Arrival Date: 12/05/2020 Time: 10:38 Bed 20 Private MD: Diagnosis: Altered mental status, unspecified;Left subcapital hip fracture closed Presentation: 12/05 11:37 Chief complaint: EMS states: called to assisted living for altered mentation. states tc5 they have had this pt before and this is her baseline. Coronavirus screen: Client denies travel out of the [place] in the last 14 days. The client reports previous COVID testing was negative. Ebola Screen: Patient negative for fever greater than or equal to 101.5 degrees Fahrenheit, and additional compatible Ebola Virus Disease symptoms Patient denies exposure to infectious person. Patient denies travel to an Ebola-affected area in the 21 days before illness onset. Initial Sepsis Screen: Does the patient meet any 2 criteria? RR > 20 per min. Altered Mental Status. HR > 90 bpm. Risk Assessment: Do you want to hurt yourself or someone else? Patient reports no desire to harm self or others. Onset of symptoms is unknown. 11:37 Method Of Arrival: EMS tc5 11:37 Acuity: TAVON 2 tc5 Triage Assessment: 11:46 General: Appears distressed, uncomfortable, slender, Behavior is cooperative, crying, tc5 restless, Smells of urine. Pain: Complains of pain in buttocks and pelvis. Cardiovascular: Respiratory: Respiratory effort is labored, tachipnic. GI: No deficits noted. : incont, odor in urine. Musculoskeletal: LLE short and rotation. - Immunization history:: Adult Immunizations up to date, Client reports receiving the 2nd dose of the Covid vaccine, recently had booster. Last tetanus immunization: unknown. - Social history:: Smoking status: unknown. Assessment: 11:49 General: Appears distressed, uncomfortable, slender, Smells of urine. tc5 Vital Signs: 11:37 BP 188 / 109; Pulse 105; Resp 30; Temp 98.9; Pulse Ox 82% 2 lpm ; Weight 54.43 kg; tc5 Height 5 ft. 4 in. (162.56 cm); 11:48 BP 169 / 94; Pulse 98; Resp 28; Pulse Ox 100% ; Pain 4/10; tc5 13:38 BP 178 / 82; Pulse 100; Resp 26; Pulse Ox 100% ; Pain 8/10; tc5 11:37 Body Mass Index 20.60 (54.43 kg, 162.56 cm) tc5 ED Course: 10:38 Patient arrived in ED. ds1 10:40 Bismark Adams MD is Attending Physician. kdr 10:40 Raines cath inserted, using sterile technique, 16 Fr., by va, balloon inflated, to ss gravity drainage, urine specimen collected. 10:42 Bing Samano, RN is Primary Nurse. tc5 11:03 Urine Microscopic Only Sent. mh5 11:45 Triage completed. tc5 12:16 Chest Single View XRAY In Process Unspecified. EDMS 12:16 Hip Left 2 View XRAY In Process Unspecified. EDMS 12:19 Pelvis XRAY In Process Unspecified. EDMS 12:54 Hasmukh Pollock MD is Hospitalizing Provider. kdr Administered Medications: 10:50 Drug: morphine 2 mg Route: IVP; Site: right antecubital; tc5 10:50 Drug: Zofran (Ondansetron) 4 mg Route: IVP; Site: right antecubital; tc5 13:37 Drug: morphine 2 mg Route: IVP; Site: right antecubital; tc5 13:37 Drug: Rocephin - (cefTRIAXone) 1 grams Route: IVPB; Infused Over: 30 mins; Site: right tc5 antecubital; Outcome: 12:55 Decision to Hospitalize by Provider. kdr 15:40 Admitted to Med/surg accompanied by tech, via stretcher, room 205, with oxygen, Report tc5 called to Carisa RN\T\ 1514 16:42 Patient left the ED. ap3 Signatures: Dispatcher [employer] EDMS Bismark Adams MD MD [facility] [place], Karina ds1 Perla Varela RN RN ss Martinez, Maria 5 Ashely Fatima RN RN ap3 Bing Samano, GUME RN tc5 Corrections: (The following items were deleted from the chart) 11:58 11:18 CORONAVIRUS+MR.LAB.BRZ drawn and sent. tc5 EDMS
--- NOTE | 2020-12-05 12:56 | EDPHYS ---
Physician Documentation [facility] Name: Elva Jenkins Age: 89 yrs Sex: Female : 1930 Arrival Date: 12/05/2020 Time: 10:38 Bed 20 Private MD: ED Physician Bismark Adams HPI: 12/05 20:10 This 89 yrs old Female presents to ER via EMS with complaints of Altered kdr mental status. 20:10 The patient was brought to the ED by EMS for altered mental status. There is little kdr other information that accompanied the patient.. 20:11 The patient responds that she does not feel well but is not able to localize. The only kdr obvious abnormality found on physical exam is shortening of the left leg and pain with movement of the left hip. The patient was reportedly found in her bed. There was no history of trauma. There was no fall in the recent past that had been related. The patient was not able to give any history of any trauma as well. She continued to say and repeat that she just did not feel well. Onset: The symptoms/episode began/occurred at an unknown time. Severity of symptoms: At their worst the symptoms were moderate in the emergency department the symptoms are unchanged. It is unknown whether or not the patient has had similar symptoms in the past. It is unknown whether or not the patient has recently seen a physician. - Immunization history:: Adult Immunizations up to date, Client reports receiving the 2nd dose of the Covid vaccine, recently had booster. Last tetanus immunization: unknown. - Social history:: Smoking status: unknown. ROS: 20:11 Constitutional: Patient is unable to relate any consistent history kdr 20:11 Unable to obtain ROS due to altered mental status. Exam: 20:11 Constitutional: This is a well developed, well nourished patient who is awake, alert, kdr and in mild distress. Head/Face: Normocephalic, atraumatic. Eyes: Pupils equal round and reactive to light, extra-ocular motions intact. Lids and lashes normal. Conjunctiva and sclera are non-icteric and not injected. Cornea within normal limits. Periorbital areas with no swelling, redness, or edema. Neck: Trachea midline, no thyromegaly or masses palpated, and no cervical lymphadenopathy. Supple, full range of motion without nuchal rigidity, or vertebral point tenderness. No Meningismus. Chest/axilla: Normal chest wall appearance and motion. Nontender with no deformity. No lesions are appreciated. Abdomen/GI: Soft, non-tender, with normal bowel sounds. No distension or tympany. No guarding or rebound. No evidence of tenderness throughout. Back: No spinal tenderness. No costovertebral tenderness. Full range of motion. 20:11 Cardiovascular: Rate: tachycardic, Rhythm: regular, Pulses: no pulse deficits are appreciated. 20:11 Cardiovascular: Edema: 2+ edema to level of left midcalf, left ankle, left foot, right midcalf and right ankle. 20:11 Respiratory: mild respiratory distress is noted, Patient is breathing with pursed lips, Respirations: no acute changes, shallow respirations, Breath sounds: rales, that are mild, are scattered, stridor, is not appreciated, wheezing: is not appreciated. 20:11 Musculoskeletal/extremity: Extremities: grossly normal except: noted in the left leg: decreased ROM, pain, There is obvious shortening of the left lower extremity. Patient also has significant pain and spasm with rotation or movement of her left hip. Patient was neurovascularly intact distal to the apparent/possible fracture of the left hip. Vital Signs: 11:37 BP 188 / 109; Pulse 105; Resp 30; Temp 98.9; Pulse Ox 82% 2 lpm ; Weight 54.43 kg; tc5 Height 5 ft. 4 in. (162.56 cm); 11:48 BP 169 / 94; Pulse 98; Resp 28; Pulse Ox 100% ; Pain 4/10; tc5 13:38 BP 178 / 82; Pulse 100; Resp 26; Pulse Ox 100% ; Pain 8/10; tc5 11:37 Body Mass Index 20.60 (54.43 kg, 162.56 cm) tc5 MDM: 12:55 Patient medically screened. kdr 20:11 Data reviewed: vital signs, lab test result(s), radiologic studies. Counseling: I had a kdr detailed discussion with the patient and/or guardian regarding: the historical points, exam findings, and any diagnostic results supporting the discharge/admit diagnosis, lab results, radiology results, the need for further work-up and treatment in the hospital. Physician consultation: Hasmukh Pollock MD and will see patient in inpatient room, shortly. 12/05 10:44 Order name: Amylase, Serum kdr 12/05 10:44 Order name: Basic Metabolic Panel kdr 12/05 10:44 Order name: Blood Culture Adult (2) kdr 12/05 10:44 Order name: CBC with Diff kdr 12/05 10:44 Order name: CPK; Complete Time: 12:36 kdr 12/05 10:44 Order name: Ckmb; Complete Time: 12:36 kdr 12/05 10:44 Order name: LFT's; Complete Time: 12:36 [facility] 12/05 10:44 Order name: Lactate; Complete Time: 12:36 kdr 12/05 10:44 Order name: Lipase; Complete Time: 12:36 kdr 12/05 10:44 Order name: Procalcitonin; Complete Time: 12:36 [facility] 12/05 10:44 Order name: Protime (+inr); Complete Time: 12:36 [facility] 12/05 10:44 Order name: Ptt, Activated; Complete Time: 12:36 [facility] 12/05 10:44 Order name: Troponin (emerg Dept Use Only); Complete Time: 12:36 [facility] 12/05 10:44 Order name: Urine Microscopic Only; Complete Time: 12:36 [facility] 12/05 10:44 Order name: Chest Single View XRAY; Complete Time: 12:36 [facility] 12/05 10:44 Order name: Hip Left 2 View XRAY; Complete Time: 12:36 [facility] 12/05 10:44 Order name: Pelvis XRAY; Complete Time: 12:36 [facility] 12/05 10:44 Order name: Type And Screen; Complete Time: 12:51 [facility] 12/05 10:45 Order name: Amylase; Complete Time: 12:36 [facility] 12/05 10:45 Order name: Basic Metabolic Panel; Complete Time: 12:36 [facility] 12/05 10:45 Order name: Blood Culture [facility] 12/05 10:45 Order name: CBC with Automated Diff; Complete Time: 12:36 [facility] 12/05 11:03 Order name: Urine Dipstick-Ancillary; Complete Time: 12:36 [facility] 12/05 12:53 Order name: CT Chest, Abdomen, Pelvis - W/Contrast kdr 12/05 12:55 Order name: SARS-COV-2 RT PCR [facility] 12/05 13:06 Order name: Basic Metabolic Panel [facility] 12/05 13:24 Order name: Echo w/ Doppler kb 12/05 13:32 Order name: CT [facility] 12/05 10:44 Order name: Accucheck kdr 12/05 10:44 Order name: Cardiac monitoring kdr 12/05 10:44 Order name: EKG - Nurse/Tech kdr 12/05 10:44 Order name: IV Saline Lock - Large Bore; Complete Time: 11:18 kdr 12/05 10:44 Order name: Labs collected and sent; Complete Time: 11:18 kdr 12/05 10:44 Order name: O2 Per Protocol; Complete Time: 11:18 kdr 12/05 10:44 Order name: O2 Sat Monitoring; Complete Time: 11:18 kdr 12/05 10:44 Order name: Urine Dipstick-Ancillary (obtain specimen); Complete Time: 11:03 kdr 12/05 10:45 Order name: Raines; Complete Time: 11:17 kdr 12/05 13:06 Order name: CONS Physician Consult [facility] 12/05 13:06 Order name: 60g Consistent Carbohydrate (ADA 1800/1999) [facility] Administered Medications: 10:50 Drug: morphine 2 mg Route: IVP; Site: right antecubital; tc5 10:50 Drug: Zofran (Ondansetron) 4 mg Route: IVP; Site: right antecubital; tc5 13:37 Drug: morphine 2 mg Route: IVP; Site: right antecubital; tc5 13:37 Drug: Rocephin - (cefTRIAXone) 1 grams Route: IVPB; Infused Over: 30 mins; Site: right tc5 antecubital; Disposition Summary: 12/05/20 12:55 Hospitalization Ordered Hospitalization Status: Inpatient Admission kdr Provider: Hasmukh Pollock Location: Telemetry/MedSurg (Inpatient) kdr Condition: Fair kdr Problem: new kdr Symptoms: have improved kdr Bed/Room Type: Standard kdr Room Assignment: 205(12/05/20 14:51) ja1 Diagnosis - Altered mental status, unspecified kdr - Left subcapital hip fracture closed kdr Forms: - Medication Reconciliation Form kdr - SBAR form kdr Signatures: Dispatcher [employer] [facility] Bismark Adams MD MD kdr Thompson, Moriah mt Aguilar, Jose, RN RN ja1 Bing Samano RN RN tc5 Corrections: (The following items were deleted from the chart) 11:58 10:45 CORONAVIRUS+BRZ ordered. EDMS EDMS 14:33 12:55 kdr mt 14:51 14:33 224 ok ja1
[2020-12-05] MEDS ORDERED: ACETAMINOPHEN 500 MG TAB PO PRN (12:59)
[2020-12-05] MEDS: D5 0.45 NS 1,000 ML IV SCH (13:00)
[2020-12-05] MEDS ORDERED: CEFTRIAXONE 1000 MG/VIAL ONE (13:30)
--- NOTE | 2020-12-05 13:31 | RAD REPORT ---
EXAM DESCRIPTION: CTChest Abdomen Pelvis W Cont - 12/05/2020 1:20 pm CLINICAL HISTORY: Altered mental status COMPARISON: Chest Abdomen Pelvis W Cont dated 03/24/2017 TECHNIQUE: CT of the chest, abdomen, and pelvis was performed. All CT scans are performed using dose optimization technique as appropriate and may include automated exposure control or mA/KV adjustment according to patient size. FINDINGS: Thorax: Chest Wall: Small nonspecific thyroid nodules. Lungs: Mild nonspecific nodularity in the lung bases could reflect a mild aspiration but is of doubtf ul clinical significance. Pleura: Trace effusions. Jessica/Mediastinum: No lymphadenopathy. Thoracic Aorta: No aneurysm. Aorta/Pulmonary Arteries: Unremarkable Heart: Normal size. Loop recorder overlies the chest. Abdomen/Pelvis: Liver: No acute abnormality or suspicious lesions. Biliary: Cholecystectomy. Stomach: No significant focal abnormality. Duodenum: No significant focal abnormality. Pancreas: No significant abnormality. Spleen: No significant abnormality. Adrenal: No suspicious lesions. Kidney/ureter: No hydronephrosis. No renal calculi. Too small to characterize and/or benign appearing renal lesions are noted. Retroperitoneum: No retroperitoneal adenopathy. Vascular: No aneurysm. Atherosclerosis Bowel: Moderate stool in the rectum.. Diverticulosis without diverticulitis. Peritoneum: No ascites or free air. Bladder: The bladder is decompressed and a Raines catheter. Reproductive: No adnexal masses. Hysterectomy. Bones: Displaced left subcapital femoral neck fracture. Remote rib fractures. Remote L3 compression f racture with kyphoplasty changes. Remote appearing L5 compression fracture. Other: n/a IMPRESSION: 1. Moderate rectal stool burden which may represent fecal impaction. 2. Left subcapital femoral neck fracture as noted on the same-day hip radiograph. 3. No acute findings within the chest.
[2020-12-05 17:37] VITALS: BMI 20.5
--- NOTE | 2020-12-05 17:44 | RAD REPORT ---
EXAM DESCRIPTION: CT - Head Brain Wo Cont - 12/05/2020 5:38 pm CLINICAL HISTORY: AMS COMPARISON: Head angio dated 05/19/2020; Head Brain Wo Cont dated 05/19/2020 TECHNIQUE: All CT scans are performed using dose optimization technique as appropriate and may inclu de automated exposure control or mA/KV adjustment according to patient size. FINDINGS: No intracranial hemorrhage, hydrocephalus or extra-axial fluid collection.No areas of brai n edema or evidence of midline shift. Remote right frontal lobe infarct. Chronic small vessel ischemi c changes The paranasal sinuses and mastoids are clear. The calvarium is intact. IMPRESSION: No acute intracranial abnormality. Remote right frontal lobe infarct.
[2020-12-05] MEDS ORDERED: ACETAMINOPHEN 650MG/RECT SUPP PR PRN (18:24)
[2020-12-05] MEDS: MORPHINE 2 MG/ML SYR IV PRN (18:48)
[2020-12-05] MEDS ORDERED: HEPARIN 5000 UNIT/ML 1 ML VIAL SQ ONE (19:00)
[2020-12-05] MEDS: HYDROCORTISONE SUC 100 MG INJ IV SCH (19:18)
[2020-12-05] MEDS: NITROGLYCERIN 1 GM PKT TD SCH (19:18)
[2020-12-05] MEDS: IPRATROPIUM BROM 0.5MG/2.5ML NEB SCH (19:45)
[2020-12-05] MEDS: ALBUTEROL 2.5 MG/3 ML NEB SOL NEB SCH (19:45)
[2020-12-05] MEDS: FAMOTIDINE 20 MG/2 ML VIAL IV SCH (22:32)
[2020-12-05] MEDS: CEFTRIAXONE 1 GM/NS 50 ML 1 GM/50 ML BAG IV SCH (22:32)
--- NOTE | 2020-12-06 00:27 | CON ---
Date of Consultation: 12/05/2020 Reason For Consultation: Left hip pain. History Of Present Illness: Elva is an 89-year-old female, who presented to the ER today with h istory of fever and altered mental status. While in the emergency room, she was noted to have a shor tened and externally rotated left lower extremity. She had an x-ray of her left hip, which demonstra abdias a left femoral neck fracture. The patient does report pain in the left lower extremity at this t chet. She was also noted to have elevated troponin levels and a Cardiac consult was made prior to the visit today. The patient was ambulatory with the use of a walker. with the son. The so n states that she had been experiencing left knee pain in the past, but does not recall her mentionin g any recent fall. She denies any other musculoskeletal complaints at this time. History was receiv ed from the son. Past Medical History: Includes COPD, hypothyroidism, hypertension, lymphedema, rheumatoid arthritis, history of DVT, and pulmonary embolism. Past Surgical History: Includes hysterectomy, appendectomy, cholecystectomy, cataract surgery, and r emoval of benign rectal mass. Social History: Negative for tobacco or alcohol use. Allergies: INCLUDE SULFA, RITUXIMAB, PROMETHAZINE, METHOTREXATE, MESALAMINE, ADALIMUMAB. Family History: Positive for hypertension and stroke. Physical Examination: General: No apparent distress. HEENT: Normocephalic, atraumatic. Neck: Supple. Cardiovascular: Brisk cap refill to all digits. Chest: Nonlabored breathing. Abdomen: Nondistended. Psychiatric: Responsive to exam. Musculoskeletal: Bilateral upper extremities functional range of motion without pain. No gross defo rmities. No obvious dislocations. Right lower extremity, no pain with internal or external rotation of the right hip. Sensation grossly intact to the dorsal and plantar surface of the foot. No tende rness to palpation over the knee, tibia, or ankle. Left lower extremity pain with range of motion of the left hip. Tenderness to palpation of the left hip. No tenderness to palpation of the left knee , tibia, or ankle. Positive firing of EHL, FHL, gastrocsoleus complex, tibialis anterior. Sensation grossly intact to the dorsal and plantar surface of her foot. Diagnostic Data: X-rays and CAT scan of her pelvis and left hip demonstrate a displaced left femoral neck fracture with some atrophy of the femoral head and some cortication noted at the fracture site. The proximal femur has superiorly migrated in the greater trochanters at the level of the superior aspect of the femoral head. Assessment And Plan: Ms. Jenkins is an 89-year-old female with a displaced left femoral neck fracture . I discussed with the patient and her son at length her diagnosis as well as treatment plan with co rtication as well as proximal migration it appears that this fracture is subacute. The patient does have a history of being ambulatory, so we discussed that we will proceed with operative treatment inc luding left hip hemiarthroplasty. Risks and benefits associated with the procedure were discussed wi th the patient and her son at length including pain; bleeding; infection; damage to tendons, nerves, arteries, veins; dislocation; and leg-length discrepancy. They expressed understanding and elected t o proceed with operative treatment. We will continue to proceed with workup of her elevated cardiac enzymes and fever; however, her UA and chest x-ray are clear at this time. CV/MODL Voice ID: [id number] Report ID: [id number]
[2020-12-06] MEDS: HYDROCORTISONE SUC 100 MG INJ IV SCH ×4 (01:02→18:14)
[2020-12-06] MEDS: NITROGLYCERIN 1 GM PKT TD SCH ×4 (01:03→18:15)
--- NOTE | 2020-12-06 01:31 | HP ---
Date of Admission: 12/05/2020 Chief Complaint: Pain. History Of Present Illness: This is an 89-year-old female patient, who lives at [facility], was sent to emergency room with generalized pain and altered mental status. The patient was evaluated in the emergency room. She was diagnosed as having left hip fracture and the patient will be admitted to the hospital. Because of her altered mental status, she is not able to provide any information or any details regarding if there was any fall or injury and when was that. All this information is not available to us because of the patient's altered mental status problem and today there was no family member with her. Allergies: TO METHOTREXATE CAUSING SHORTNESS OF BREATH, PHENERGAN CAUSING HALLUCINATION, SULFASALAZINE CAUSING HEADACHE, RITUXAN CAUSING LEG SWELLING, MESALAMINE CAUSING HIVES, HUMIRA CAUSING FACE SWELLING, ORENCIA CAUSING JOINT PAIN. Review of Systems: CHOCOLATE DIPPER: As mentioned above. Musculoskeletal: As mentioned above. All other systems unable to obtain due to the patient's current condition. Medications: According to last office visit, she is on Tylenol with codeine 1 tablet by mouth 3 times a day as needed for pain; albuterol inhaler 2 puffs 4 times a day as needed for shortness of breath; albuterol nebulizer treatment 4 times a day as needed; atorvastatin 40 mg daily at bedtime; furosemide 20 mg, the patient takes 2 tablets by mouth 2 times a day; levothyroxine 50 mcg and she takes 1 tablet by mouth daily; paroxetine 40 mg daily; prednisone 5 mg 2 times a day; Actonel 150 mg once a month; Spiriva inhaler 1 puff daily. Past Medical History: Significant for hypothyroidism, COPD, DVT, pulmonary emboli in August 2017. This was treated with anticoagulation, hypertension, hyperlipidemia, chronic diastolic congestive heart failure, lymphedema, rheumatoid arthritis, anemia, and anxiety. Past Surgical History: Cataract surgery, appendectomy, hernia surgery, hysterectomy, back surgery, and kyphoplasty. Family History: Father , had hypertension and macular degeneration. Mother , details unknown, and had macular degeneration. Social History: Negative for smoking, alcohol use. Physical Examination: Vital Signs: Height 5 feet 4 inches, weight 120 lbs, temperature 98.9, pulse 105, respiratory rate 30, blood pressure 188/109, oxygen saturation 82%. General: Patient is not oriented, not in distress. HEENT: Head atraumatic, normocephalic. Conjunctivae nonerythematous. Sclerae white. Mouth, no thrush or edema noted. Ears/Nose, no mass, lesion, discharge noted. Neck: Supple. No JVD, lymph nodes, bruit, thyromegaly noted. Lungs: Bilateral good equal air entry. Clear to auscultation. No rhonchi. No rales. Heart: Normal heart sounds, no murmur or gallop. Abdomen: Soft, bowel sounds normal. No guarding, rigidity, tenderness, mass, hepatosplenomegaly, distention, or bruit noted. Extremities: No leg edema. No calf tenderness. Skin: No rash, ulcer, cellulitis. Lymphatics: No lymph node enlargement in neck, supraclavicular, infraclavicular region. Neuro: No focal neurological deficit. Chest: Unremarkable. External Genitalia: Deferred. Rectal: Deferred. Imaging Studies: X-ray of the left hip shows significantly displaced intertrochanteric fracture. Chest x-ray was negative for any acute changes. Laboratory Data: White count 15.7, hemoglobin 13.9, platelets 247. Sodium 137, potassium 3.6, chloride 101, bicarb 30, BUN 12, creatinine 0.61, glucose 122, total bilirubin 1.9. Liver is normal, procalcitonin 0.26. Troponin 0.08, albumin 2.9. Urinalysis; 20 to 50 rbc's, otherwise negative. COVID-19 test negative. X-ray of the hip and pelvis shows left subcapital fracture. Impression: 1. Left hip subcapital fracture. 2. Hypothyroidism. 3. Chronic obstructive pulmonary disease. 4. Hypertension. 5. Hyperlipidemia. 6. Chronic diastolic congestive heart failure. 7. Anemia. 8. Osteoporosis. 9. Rheumatoid arthritis. Plan: Admit patient to hospital for further evaluation and management of this problem. Patient is appropriate for inpatient and is expected to spend two midnights in hospital. We will consult orthopedic surgeon on-call. We will get echo with Doppler. EKG will request cardiology consultation and follow up on echo results and once we get preop clearance from applied researcher, then we will plan for surgery which hopefully might happen tomorrow. SCD will be ordered for DVT prophylaxis. Pain medication will be given per order and once we get the negative CAT scan result, then we will give 1 dose of Lovenox today for DVT prophylaxis. ARNOL/MAGDA Voice ID: [id number] MTDD
[2020-12-06] MEDS: IPRATROPIUM BROM 0.5MG/2.5ML NEB SCH ×4 (01:35→20:00)
[2020-12-06] MEDS: ALBUTEROL 2.5 MG/3 ML NEB SOL NEB SCH ×4 (01:35→20:00)
[2020-12-06] MEDS: MORPHINE 2 MG/ML SYR IV PRN ×3 (04:16→15:38)
[2020-12-06 06:23] LABS: Potassium 4.3 mmol/L (3.5-5.1)
[2020-12-06 06:48] LABS: Lymphocytes % 8.8 % (15.3-44.8); MPV 6.9 fL (7.6-11.3); RBC Red Blood Cell Count 4.04 M/uL (3.86-4.86)
[2020-12-06 08:48] LABS: Blood Morphology Comment NOT SEEN (NOT SEEN); Platelet Estimate ADEQ; White Blood Cell Scan OK (OK)
[2020-12-06] MEDS ORDERED: CEFTRIAXONE/SWI 1gm 1 GM/10 ML SYR IVP SCH (09:00)
[2020-12-06] MEDS ORDERED: CEFTRIAXONE 1 GM/NS 50 ML 1 GM/50 ML BAG IV SCH (09:00)
[2020-12-06] MEDS: ONDANSETRON 4 MG/2 ML VIAL IV PRN ×2 (09:48→15:38)
[2020-12-06] MEDS: CEFTRIAXONE 1 GM/NS 50 ML 1 GM/50 ML BAG IV SCH ×2 (09:49→22:27)
[2020-12-06] MEDS: D5 0.45 NS 1,000 ML IV SCH ×2 (09:49→22:20)
[2020-12-06] MEDS: FAMOTIDINE 20 MG/2 ML VIAL IV SCH ×2 (09:49→22:27)
--- NOTE | 2020-12-06 13:13 | PN ---
Date of Progress Note: 12/06/2020 Subjective: The patient was seen this morning for followup. No new complaints or problems reported by her. She was awake, alert, back to her normal self and her altered mental status that she present ed with yesterday has resolved. Her son was present at bedside. Objective: VITAL SIGNS: Reviewed. HEENT: Unremarkable. Lungs: Clear to auscultation. Heart: Sounds normal. Abdomen: Soft. Bowel sounds normal. No guarding, rigidity, tenderness, distention. Extremities: No leg edema. Laboratory Data: White count 11.8, hemoglobin 12.7, and platelets 204. Sodium 139, potassium 4.3, c hloride 102, bicarb 34, BUN 11, creatinine 0.71 glucose 163. Impression: 1.Left hip fracture. 2.Hypertension. 3.Chronic obstructive pulmonary disease. 4.Altered mental status, resolved. 5.Toxic encephalopathy. Plan: At this time, the patient's altered mental status has resolved. We believe that could have be en due to her underlying infection that is not obvious, but she has responded well to antibiotic and we will continue that right now. She does not recollect any definite history of fall or injury recen tly and she is complaining of left hip pain lately that she says she is having pain off and on, but s he really did not think much about it and does not think that her pain is any worse than usual. In a ny case, her hip fracture appears to be somewhat subacute and Dr. Whitman is planning to do surgery day after tomorrow. Meanwhile, we will continue heparin for DVT prophylaxis and we will go ahead and con tinue current medications. Blood pressure is under much better control. We will continue current an tibiotics and details and plan of treatment discussed with the patient and the patient's son who was at bedside. I will see her tomorrow for followup. SCDs present over her right leg. ARNOL/MODL Voice ID: [id number] Report ID: [id number]
--- NOTE | 2020-12-06 15:34 | CON ---
Date of Consultation: 12/06/2020 Reason For Consultation: Cardiac risk assessment preoperatively. History Of Present Illness: This is an 89-year-old female, who lives at assisted care facility, was brought into emergency room with altered mental status, found to have left hip fracture. I was asked to evaluate the cardiac risk prior to surgery. The patient claimed that she has no cardiac problems and she had a stress test with Dr. Ro about two months ago as per her report and that checked o ut okay. There is some mild elevation of her troponin. There is no chest pain or shortness of breat h. Past Medical History: Significant for COPD, hypothyroidism, DVT, pulmonary embolism, hypertension, d yslipidemia, diastolic heart failure, and rheumatoid arthritis. Medications: Refer reconciliation for detailed list. Allergies: LIST OF ALLERGIES WAS REVIEWED. Past Surgical History: Cataract surgery, appendectomy, hernia repair, hysterectomy, back surgery, an d kyphoplasty. Family History: No premature coronary artery disease or cancer. Social History: She does not smoke or drink. Does not use any drugs. Review of Systems: All systems reviewed and they were negative except as mentioned in the HPI. Physical Examination: Vital Signs: Temperature is 97.4, pulse is 97, breathing at 18, blood pressure 144/74, and saturatin g 98%. General: This is an elderly female, very thin body habitus. No apparent distress. Head and Neck: Pupils are reactive to light. Intact eye movements. No JVD. No cervical lymphadeno andrey. Neck: Supple. Thyroid is not enlarged. Lungs: Clear to auscultation bilaterally. No rhonchi, rales, or crackles. No accessory muscle use. Heart: Regular rate and rhythm. No extra sound. Abdomen: Soft, nontender. Bowel sounds positive. No organomegaly. No rigidity or rebound. Extremities: No clubbing or cyanosis. Intact pulses. Skin: No rashes. Neurologic: Alert and awake with confusion. No focal deficits appreciated. Investigations: Labs were reviewed. Her troponin is 0.08. Assessment And Recommendations: Cardiac risk assessment preoperatively. The patient is 89. Troponi n is borderline 0.08. Repeat troponin is pending. On echo, she has normal heart function and no sig nificant valvular disease. Unable to evaluate her exercise capacity due to her overall condition and she reported a negative stress test two months ago. I will obtain the new records from the office a nd if that is negative, then to proceed with the surgery and likely the borderline elevation of tropo angie as demand. I will follow the patient with you in the hospital. Meanwhile, I recommend full dose of anticoagulation due to the history of pulmonary embolism and DVT in the past, and a low-dose aspi rin. Thank you for the consult. ANÍBAL Voice ID: [id number] Report ID: [id number]
[2020-12-07] MEDS: MORPHINE 2 MG/ML SYR IV PRN ×3 (00:28→20:47)
[2020-12-07] MEDS: HYDROCORTISONE SUC 100 MG INJ IV SCH ×3 (00:32→20:53)
[2020-12-07] MEDS: NITROGLYCERIN 1 GM PKT TD SCH ×4 (00:34→17:51)
[2020-12-07] MEDS: ALBUTEROL 2.5 MG/3 ML NEB SOL NEB SCH ×4 (02:00→19:25)
[2020-12-07] MEDS: IPRATROPIUM BROM 0.5MG/2.5ML NEB SCH ×4 (02:00→19:25)
[2020-12-07] MEDS: D5 0.45 NS 1,000 ML IV SCH ×2 (05:33→15:00)
[2020-12-07] MEDS: FAMOTIDINE 20 MG/2 ML VIAL IV SCH ×2 (08:20→20:54)
[2020-12-07] MEDS: CEFTRIAXONE 1 GM/NS 50 ML 1 GM/50 ML BAG IV SCH ×2 (08:20→20:54)
[2020-12-07] MEDS: METOPROLOL TARTRATE 5 MG/5 ML INJ IV PRN (08:45)
[2020-12-07] MEDS ORDERED: ENOXAPARIN 40 MG/0.4 ML SQ SCH (09:00)
[2020-12-07] MEDS ORDERED: METOPROLOL XL 25 MG TAB PO SCH (10:00)
--- NOTE | 2020-12-07 11:52 | PN ---
Date of Progress Note: 12/07/2020 Subjective: The patient was seen this morning for followup. No new complaints or problems reported by her. She was lying in bed, not in distress. Her pain in her left hip is controlled with use of pain medications that are ordered in the chart. No nausea. No vomiting. No chest pain. No shortness of breath. Objective: Vital Signs: Reviewed. HEENT: Unremarkable. Lungs: Clear to auscultation. Heart: Sounds normal. Abdomen: Soft. Bowel sounds normal. No guarding, rigidity, tenderness, or distention. Extremities: No leg edema. Impression: 1. Left hip fracture. 2. Hypertension. 3. Chronic obstructive pulmonary disease. 4. Abnormal cardiac enzymes. 5. Chronic steroid therapy. Plan: We will go ahead and continue current steroid medications. She is probably going to have surgery tomorrow depending on cardiac clearance. We will continue her Lovenox that she is currently on 40 mg subcutaneous injection daily for DVT prophylaxis. Continue current pain medication and for blood pressure which seems to be elevated, we will go ahead and start her on metoprolol. I will see her tomorrow for followup and details were discussed with the patient. Dr. Bee did call me and gave me his cardiac clearance for surgery tomorrow. ARNOL/MODL Voice ID: [id number] Report ID: [id number] MTDD
[2020-12-07] MEDS: METOPROLOL XL 25 MG TAB PO SCH (15:00)
--- NOTE | 2020-12-07 17:14 | P.PN ---
Subjective Date of Service: 12/07/20 Chief Complaint: left hip pain Son reports patient with some confusion today. Patient able to communicate well during visit. Physical Examination - Vital Signs Temperature: 97.8 F Blood Pressure: 134/68 Pulse: 92 Respirations: 18 Pulse Ox (%): 96 - Physical Exam General: Alert, In no apparent distress Musculoskeletal: Other (LLE: shortened and externally rotated; pain with ROM of the left hip; ttp over the left hip; NVI distally) Assessment And Plan - Plan Elva is an 89 yo female with a subacute left femoral neck fracture -plan on left hip hemiarthroplasty tomorrow -N[facility] p [facility]
[2020-12-07] MEDS: ONDANSETRON 4 MG/2 ML VIAL IV PRN (20:47)
[2020-12-08] MEDS: NITROGLYCERIN 1 GM PKT TD SCH ×4 (00:14→18:00)
[2020-12-08] MEDS: IPRATROPIUM BROM 0.5MG/2.5ML NEB SCH ×4 (01:25→19:45)
[2020-12-08] MEDS: ALBUTEROL 2.5 MG/3 ML NEB SOL NEB SCH ×4 (01:25→19:45)
[2020-12-08] MEDS: METOPROLOL TARTRATE 5 MG/5 ML INJ IV PRN ×2 (01:32→16:43)
[2020-12-08] MEDS: D5 0.45 NS 1,000 ML IV SCH ×2 (01:37→07:40)
[2020-12-08] MEDS: FENTANYL CITR 100 MCG/2 ML IV PRN ×3 (04:24→18:28)
--- NOTE | 2020-12-08 07:01 | ECHO ---
HEIGHT: 5 ft 4 in WEIGHT: 120 lb 0 oz DATE OF STUDY: 12/05/[address]: Bismark Adams MD 2-DIMENSIONAL: YES M.MODE: YES DOPPLER: YES COLOR FLOW: YES TDS: NO PORTABLE: NO DEFINITY: NO BUBBLE STUDY: NO DIAGNOSIS: CHEST PAIN CARDIAC HISTORY: CATHERIZATION: SURGERY: PROSTHETIC VALVE: PACEMAKER: MEASUREMENTS (cm) DIASTOLIC (NORMALS) SYSTOLIC (NORMALS) IVSd 0.9 (0.6-1.2) LA Diam 2.5 (1.9-4.0) LVEF 63% LVIDd 2.9 (3.5-5.7) LVIDs 2.0 (2.0-3.5) %FS 33% LVPWd 1.1 (0.6-1.2) Ao Diam 2.7 (2.0-3.7) 2 DIMENSIONAL ASSESSMENT: RIGHT ATRIUM: NORMAL LEFT ATRIUM: NORMAL RIGHT VENTRICLE: NORMAL LEFT VENTRICLE: NORMAL TRICUSPID VALVE: MITRAL VALVE: PULMONIC VALVE: NORMAL AORTIC VALVE: NORMAL PERICARDIAL EFFUSION: NONE AORTIC ROOT: NORMAL LEFT VENTRICULAR WALL MOTION: NORMAL DOPPLER/COLOR FLOW: SEE BELOW. COMMENTS: NORMAL LEFT VENTRICULAR EJECTION FRACTION 60-65%. NORMAL WALL MOTION ABNORMALITY. MILD MITRAL AND TRICUSPID REGURGITATION. RIGHT VENTRICULAR SYSTOLIC PRESSURE OF 46 mmHg + RIGHT ATRIAL PRESSURE. TECHNOLOGIST: Mary VALENCIA
[2020-12-08 07:21] LABS: Absolute Lymphocytes (CBC) 1.3 K/uL (0.7-4.9); Basophils % 0.2 % (0-1.3); Hematocrit 37.2 % (36.0-45.0); MPV 6.7 fL (7.6-11.3); RBC Red Blood Cell Count 4.01 M/uL (3.86-4.86)
[2020-12-08 07:31] LABS: BUN Blood Urea Nitrogen 11 mg/dL (7-18); Bicarbonate 33 mmol/L (21-32); Glucose Level 127 mg/dL (74-106); Magnesium 2.1 mg/dL (1.8-2.4); Potassium 3.7 mmol/L (3.5-5.1); Sodium Level 138 mmol/L (136-145)
[2020-12-08] MEDS: METOPROLOL XL 25 MG TAB PO SCH (08:09)
[2020-12-08] MEDS: FAMOTIDINE 20 MG/2 ML VIAL IV SCH ×2 (08:09→20:39)
[2020-12-08] MEDS: CEFTRIAXONE 1 GM/NS 50 ML 1 GM/50 ML BAG IV SCH ×2 (08:09→20:36)
[2020-12-08] MEDS: HYDROCORTISONE SUC 100 MG INJ IV SCH ×2 (08:12→20:39)
[2020-12-08] MEDS ORDERED: FENTANYL CITR 100 MCG/2 ML ONE (10:36)
[2020-12-08] MEDS ORDERED: ONDANSETRON 4 MG/2 ML VIAL ONE (10:37)
[2020-12-08] MEDS ORDERED: ETOMIDATE 20 MG/10 ML VIAL IV ONE (10:37)
[2020-12-08] MEDS ORDERED: ROCURONIUM 50 MG/5 ML VIAL IV ONE (10:37)
[2020-12-08] MEDS ORDERED: LIDOCAINE 2% MPF 5 ML VIAL ONE (10:37)
[2020-12-08] MEDS ORDERED: propofoL 200 MG/20 ML VIAL IV ONE (10:37)
[2020-12-08] MEDS ORDERED: TRANEXAMIC ACID 1,000 MG in NA CHLORIDE 0.9% 50 ML IV ONE (11:00)
[2020-12-08] MEDS ORDERED: BUPIVACAINE 0.75% (PF) 2 ML SP ONE (11:27)
[2020-12-08] MEDS ORDERED: Ringers Lactate 1,000 ML IV ONE (11:38)
[2020-12-08] MEDS ORDERED: EPINEPHRINE/PF 1 MG/ML AMP ONE (11:41)
[2020-12-08] MEDS ORDERED: KETAMINE HCL 500 MG/5 ML VIAL ONE (11:43)
[2020-12-08] MEDS ORDERED: MIDAZOLAM HCL 2 MG/2 ML INJ ONE (11:43)
[2020-12-08] MEDS ORDERED: CEFAZOLIN SODIUM 1 GM/VIAL ONE (11:45)
--- NOTE | 2020-12-08 14:13 | P.BOP ---
Preoperative diagnosis: left femoral neck fracture Postoperative diagnosis: same Primary procedure: left hip hemiarthroplasty Secondary procedure: none Traveling Buyer: NONE,NONE Estimated blood loss: 100 cc Specimen: left femoral head Findings: see dictation Anesthesia: General Complications: None Drain(s): Urinary catheter Implants: 9 mm Biomet Fracture Stem, 44 mm bipolar shell, 28x-3 mm head Fluids & blood products: per anesthesia record Transferred to: Recovery Room Condition: Good
[2020-12-08] MEDS ORDERED: NEOSTIGMINE 1 MG/ML -5 ML ONE (14:19)
[2020-12-08] MEDS ORDERED: GLYCOPYRROLATE 0.2 MG/ML SYR ONE (14:19)
[2020-12-08] MEDS ORDERED: LABETALOL 20 MG/4ML SYRINGE IV ONE (14:24)
[2020-12-08] MEDS ORDERED: DOCUSATE NA 100 MG CAP PO PRN (14:34)
[2020-12-08 15:22] LABS: Hematocrit 38.3 % (36.0-45.0)
--- NOTE | 2020-12-08 15:49 | RAD REPORT ---
EXAM DESCRIPTION: RAD - Hip Left 2 View - 12/08/2020 3:08 pm CLINICAL HISTORY: postop COMPARISON: Hip Left 2 View dated 12/05/2020 FINDINGS: Left total hip arthroplasty has been performed. Skin digna are present laterally. No une xpected immediate postoperative finding.
[2020-12-08] MEDS: HYDROCODONE/APAP 7.5/325 MG TAB PO PRN (19:11)
[2020-12-08] MEDS: ENSURE ENLIVE 237 ML CAN PO SCH (20:42)
[2020-12-09] MEDS: NITROGLYCERIN 1 GM PKT TD SCH ×5 (00:27→23:50)
[2020-12-09] MEDS: D5 0.45 NS 1,000 ML IV SCH (00:33)
[2020-12-09] MEDS: IPRATROPIUM BROM 0.5MG/2.5ML NEB SCH ×4 (02:35→20:00)
[2020-12-09] MEDS: ALBUTEROL 2.5 MG/3 ML NEB SOL NEB SCH ×4 (02:35→20:00)
[2020-12-09] MEDS: FENTANYL CITR 100 MCG/2 ML IV PRN ×2 (04:38→15:07)
[2020-12-09 05:54] LABS: Absolute Lymphocytes (CBC) 1.1 K/uL (0.7-4.9); Basophils % 0.1 % (0-1.3); Lymphocytes % 12.7 % (15.3-44.8); MPV 6.6 fL (7.6-11.3); RBC Red Blood Cell Count 3.77 M/uL (3.86-4.86)
[2020-12-09 06:09] LABS: BUN Blood Urea Nitrogen 13 mg/dL (7-18); Bicarbonate 35 mmol/L (21-32); Glucose Level 153 mg/dL (74-106); Magnesium 2.2 mg/dL (1.8-2.4); Potassium 3.5 mmol/L (3.5-5.1); Sodium Level 140 mmol/L (136-145)
--- NOTE | 2020-12-09 07:07 | PN ---
Date of Progress Note: 12/08/2020 Subjective: The patient was seen this morning for followup. She was lying in bed, not in distress. No new complaints or problems reported by the patient. Objective: Vital Signs: Reviewed. HEENT Examination: Unremarkable. Lungs: Clear to auscultation. Heart: Sounds normal. Abdomen: Soft, bowel sounds normal. No guarding, rigidity, tenderness, distention. Extremities: No leg edema. Laboratory Data: White count 9.3, hemoglobin 12.7, platelets 216. Sodium 138, potassium 3.7, chloride 102, bicarb 33, BUN 11, creatinine 0.4. Impression: 1. Hip fracture. 2. Hypertension. 3. Chronic obstructive pulmonary disease. Plan: We will go ahead and continue current medications. The patient is scheduled to have hip surgery today and Dr. Bee did call me yesterday and informed me that from his point of view, he is going to clear the patient for hip surgery. Medically, she is stable for surgery. We will see her tomorrow for followup. Details and plan of treatment discussed with the patient. ARNOL/MODL Voice ID: [id number] Report ID: [id number] QUIN
[2020-12-09] MEDS: ENSURE ENLIVE 237 ML CAN PO SCH ×2 (08:15→21:19)
[2020-12-09] MEDS: AMLODIPINE 5 MG TAB PO SCH (08:16)
[2020-12-09] MEDS: FAMOTIDINE 20 MG TAB PO SCH ×2 (08:16→21:09)
[2020-12-09] MEDS: HYDROCODONE/APAP 7.5/325 MG TAB PO PRN (08:17)
[2020-12-09] MEDS: METOPROLOL XL 25 MG TAB PO SCH (08:18)
[2020-12-09] MEDS: predniSONE 20 MG TAB PO SCH ×2 (08:18→18:07)
[2020-12-09] MEDS ORDERED: ENOXAPARIN 40 MG/0.4 ML SQ SCH (09:00)
[2020-12-09] MEDS: CEFTRIAXONE 1 GM/NS 50 ML 1 GM/50 ML BAG IV SCH ×2 (09:21→21:08)
--- NOTE | 2020-12-09 16:30 | P.PN ---
Subjective Date of Service: 12/09/20 Chief Complaint: left hip pain Subjective: Ambulating, Improving, Working w/ PT pain controlled Physical Examination - Vital Signs Temperature: 98.5 F Blood Pressure: 130/62 Pulse: 71 Respirations: 18 Pulse Ox (%): 96 - Physical Exam General: Alert, In no apparent distress Musculoskeletal: Other (LLE: dressing c/d/i; +EHL/FHL/GSC/TA; sensation grossly intact distally) Assessment And Plan - Plan Elva is an 89 yo female s/p left hip hemiarthroplasty POD#1 -PT to mobilize; WBAT LLE; posterior hip precautions -acute expected postoperative blood loss anemia; continue to monitor H/H -lovenox for DVT prophylaxis -await IPR eval
--- NOTE | 2020-12-09 16:37 | P.OP ---
Preoperative diagnosis: left femoral neck fracture Postoperative diagnosis: same Primary procedure: left hip hemiarthroplasty Secondary procedure: none Anesthesia: general Estimated blood loss: 100 cc Specimen: left femoral head Findings: see dictation Operative Technique: Indication For Procedure: Elva glaser an 89-year-old female presented to the ER with altered mental status and left hip pain. X-rays demonstrated a subacture left femoral neck fracture. I discussed with the patient and her son at length risks and benefits associated with operative and nonoperative treatment. She expressed understanding and elected to proceed with operative treatment. Description Of Procedure: After informed consent was obtained, the patient was identified in the preoperative holding area. The left lower extremity was marked. The patient was brought back to the operating room, transferred to the operating table in the supine fashion, placed under general endotracheal anesthesia. The patient was then placed in the right lateral decubitus position with her extremities well padded and an axillary roll placed. The left lower extremity was then prepped and draped in usual sterile fashion. A time-out was initiated. The correct patient and procedure were confirmed and identified. The patient did receive her preoperative prophylactic antibiotics. Approximately a 15 cm curvilinear incision was placed and centered over the greater trochanter in line with the posterior approach to the hip. Dissection was then taken down to the tensor fascia janice, which was split and released in line with the incision. A Charnley retractor was then placed. Blunt dissection was then taken down to the short external rotators, which were tagged with #5 Ethibond and released off the greater trochanter using Bovie electrocautery. T- shaped capsulotomy was performed. Hematoma was then evacuated. The capsule were tagged with #5 Ethibond. The femoral head was then removed using a corkscrew and measured to a size 44 mm shell. A 44 mm head was put within the acetabulum. There was good overall fit. Next, attention was taken to the proximal femur. A cookie cutter followed by canal finder and lateralizer used to find the femoral canal and prepared. The hip was then reamed from size 7 mm reamer to approximately 11 mm reamer, then broached from a size 7 mm broach to a size 11 mm broach. A calcar planer was then used to clean up the femoral neck cut and a -3 mm head and 44 mm shell was then placed. The hip was reduced. There was good overall leg length and stability noted. At that point, it was elected to proceed with 9 mm cemented stem and a -3 head and 49 mm shell. Trial implants were then removed without complication. The wounds were then irrigated thoroughly with normal saline. The cement was then prepared on the back table and placed in a cement gun. A bone plug was placed at approximately 150 mm from the medial calcar and the cement was placed into the femoral canal using a cement gun and respiratory equipment assistant. The 9 mm cemented stem was then placed in the femoral canal and held into position until the cement was hardened. Again, the hip was trialed with a -3 head and 44 mm shell. The hip was reduced. There was good overall leg length and stability. The final head and bipolar shell were then placed. The hip was then again reduced. There was good overall leg length and stability noted. The wound was then irrigated thoroughly with normal saline. The capsule was approximated using #5 Ethibond. The external rotators were tacked back to the greater trochanter using a drill and suture passer, tying them over a bone bridge. The tensor fascia janice was approximated using 0 Vicryl. Subcutaneous tissue was approximated using 2-0 Vicryl. Skin was approximated using a stapler. Sterile dressings were applied. The patient was awakened and transferred to PACU in stable condition in an abduction pillow. Postoperative Plan: The patient will be weightbearing as tolerated and we will proceed with physical therapy with posterior hip precautions. Complications: None Drain(s): Urinary catheter Implants: 9 Biomet Fracture stem, 28x-3 mm head; 44 mm acetabular shell Fluids & blood products: per anesthesia record Transferred to: Recovery Room Condition: Good
--- NOTE | 2020-12-09 21:37 | PN ---
Date of Progress Note: 12/09/2020 Subjective: The patient was seen this morning for followup. No new complaints or problems reported by her. She had her hip surgery yesterday. Overnight, she is feeling fine. Denies any complaints t his morning. Objective: Vital Signs: Reviewed. HEENT: Unremarkable. Lungs: Clear to auscultation. Heart: Sounds normal. Abdomen: Soft. Bowel sounds normal. No guarding, rigidity, tenderness, or distention. Extremities: No leg edema. Laboratory Data: White count 8.6, hemoglobin 12, platelets 193. Sodium 140, potassium 3.5, chloride 103, bicarb 35, BUN 13, creatinine 0.52, glucose 153. Impression: 1.Hip fracture. 2.Hypertension. 3.Chronic obstructive pulmonary disease. Plan: The patient's blood pressure this morning was 167/79 with pulse rate 74. We will go ahead and start her on amlodipine 5 mg daily, continue other current medications. Continue current pain medic ation. We will follow up with Physical Therapy and Rehab was consulted. I will see her tomorrow for followup. ARNOL/MODL Voice ID: [id number] Report ID: [id number]
[2020-12-10] MEDS: ALBUTEROL 2.5 MG/3 ML NEB SOL NEB SCH ×4 (02:00→20:00)
[2020-12-10] MEDS: IPRATROPIUM BROM 0.5MG/2.5ML NEB SCH ×4 (02:00→20:00)
[2020-12-10] MEDS: NITROGLYCERIN 1 GM PKT TD SCH ×3 (05:13→18:39)
[2020-12-10] MEDS: ENSURE ENLIVE 237 ML CAN PO SCH ×2 (09:00→20:48)
[2020-12-10] MEDS: METOPROLOL XL 25 MG TAB PO SCH (10:01)
[2020-12-10] MEDS: FAMOTIDINE 20 MG TAB PO SCH ×2 (10:01→20:47)
[2020-12-10] MEDS: APIXABAN 2.5 MG TABLET PO SCH ×2 (10:02→20:47)
[2020-12-10] MEDS: AMLODIPINE 5 MG TAB PO SCH (10:02)
[2020-12-10] MEDS: predniSONE 20 MG TAB PO SCH ×2 (10:02→18:39)
[2020-12-10] MEDS: CEFTRIAXONE 1 GM/NS 50 ML 1 GM/50 ML BAG IV SCH ×2 (10:06→20:48)
[2020-12-10] MEDS: HYDROCODONE/APAP 7.5/325 MG TAB PO PRN ×2 (14:10→21:01)
[2020-12-10 19:26] LABS: Absolute Lymphocytes (CBC) 2.6 K/uL (0.7-4.9); Basophils % 0.4 % (0-1.3); Hematocrit 36.5 % (36.0-45.0); Lymphocytes % 15.8 % (15.3-44.8); MPV 7.1 fL (7.6-11.3); RBC Red Blood Cell Count 3.96 M/uL (3.86-4.86)
--- NOTE | 2020-12-10 19:49 | PN ---
Date of Progress Note: 12/10/2020 Subjective: The patient was seen this morning for followup. No new complaints or problems reported by the patient. Lying in bed, not in distress. Denies any nausea, vomiting. She says she had a bow el movement yesterday. No abdominal pain. Objective: Vital Signs: Reviewed. HEENT: Unremarkable. Lungs: Clear to auscultation. Heart: Sounds normal. Abdomen: Soft. Bowel sounds normal. No guarding, rigidity, tenderness, or distention. Extremities: No leg edema. Impression: 1.Hip fracture. 2.Hypertension. 3.Chronic obstructive pulmonary disease. 4.Osteoarthritis, multiple sites. Plan: We will go ahead and discontinue Lovenox and start the patient on Eliquis for DVT prophylaxis. Continue current pain medications, continue current antihypertensive medications, and we will have Physical Therapy continue to work with the patient. We are waiting for a decision on inpatient rehab benefit. ARNOL/MAGDA Voice ID: [id number] Report ID: [id number]
--- NOTE | 2020-12-10 21:08 | P.PN ---
Subjective Date of Service: 12/10/20 Chief Complaint: left hip pain Subjective: Ambulating, Improving, Working w/ PT pain controlled Physical Examination - Vital Signs Temperature: 98.2 F Blood Pressure: 144/69 Pulse: 67 Respirations: 22 Pulse Ox (%): 95 - Physical Exam General: Alert, In no apparent distress Musculoskeletal: Other (LLE: dressing c/d/i; no pain with ROM; NVI distally) - Studies Microbiology Data (last 24 hrs): 12/05/20 11:05 Blood - Blood Aerobic Blood Culture - Final No growth in 5 days. 12/05/20 11:05 Blood - Blood Anaerobic Blood Culture - Final No growth in 5 days. 12/05/20 10:40 Blood - Blood Aerobic Blood Culture - Final No growth in 5 days. 12/05/20 10:40 Blood - Blood Anaerobic Blood Culture - Final No growth in 5 days. Assessment And Plan - Plan Elva is an 89 yo female s/p left hip hemiarthroplasty POD#2 -PT to mobilize; WBAT LLE; posterior hip precautions -H/H stable -lovenox for DVT prophylaxis -await IPR eval
[2020-12-11] MEDS: NITROGLYCERIN 1 GM PKT TD SCH ×4 (00:43→16:34)
[2020-12-11] MEDS: TRAMADOL HCL 50 MG TAB PO PRN (00:46)
[2020-12-11] MEDS: ALBUTEROL 2.5 MG/3 ML NEB SOL NEB SCH ×4 (02:00→19:30)
[2020-12-11] MEDS: IPRATROPIUM BROM 0.5MG/2.5ML NEB SCH ×4 (02:00→19:30)
[2020-12-11 06:38] LABS: Absolute Lymphocytes (CBC) 1.7 K/uL (0.7-4.9); Basophils % 0.3 % (0-1.3); Hematocrit 36.1 % (36.0-45.0); Lymphocytes % 14.6 % (15.3-44.8); RBC Red Blood Cell Count 3.89 M/uL (3.86-4.86)
[2020-12-11 07:09] LABS: BUN Blood Urea Nitrogen 16 mg/dL (7-18); Bicarbonate 36 mmol/L (21-32); Glucose Level 98 mg/dL (74-106); Magnesium 2.2 mg/dL (1.8-2.4); Potassium 4.1 mmol/L (3.5-5.1); Sodium Level 138 mmol/L (136-145)
[2020-12-11] MEDS: CEFTRIAXONE 1 GM/NS 50 ML 1 GM/50 ML BAG IV SCH ×2 (07:56→21:07)
[2020-12-11] MEDS: FAMOTIDINE 20 MG TAB PO SCH ×2 (08:36→21:06)
[2020-12-11] MEDS: APIXABAN 2.5 MG TABLET PO SCH ×2 (08:36→21:06)
[2020-12-11] MEDS: DOCUSATE NA 100 MG CAP PO SCH (08:36)
[2020-12-11] MEDS: METOPROLOL XL 25 MG TAB PO SCH (08:36)
[2020-12-11] MEDS: predniSONE 10 MG TAB PO SCH ×2 (08:37→16:35)
[2020-12-11] MEDS: AMLODIPINE 5 MG TAB PO SCH (08:37)
[2020-12-11] MEDS: ENSURE ENLIVE 237 ML CAN PO SCH ×2 (08:42→21:00)
[2020-12-11] MEDS: HYDROCODONE/APAP 7.5/325 MG TAB PO PRN (14:10)
[2020-12-12] MEDS: NITROGLYCERIN 1 GM PKT TD SCH ×4 (01:00→17:19)
[2020-12-12] MEDS: IPRATROPIUM BROM 0.5MG/2.5ML NEB SCH ×4 (01:05→20:00)
[2020-12-12] MEDS: ALBUTEROL 2.5 MG/3 ML NEB SOL NEB SCH ×4 (01:05→20:00)
--- NOTE | 2020-12-12 06:21 | PN ---
Date of Progress Note: 12/11/2020 Subjective: Patient was seen this morning for followup, lying in bed, not in any distress. No new complaints or problems reported by her. Objective: Vital Signs: Reviewed. HEENT: Unremarkable. Lungs: Clear to auscultation. Heart: Heart sounds normal. Abdomen: Soft. Bowel sounds normal. No guarding, rigidity, tenderness, or distention. Extremities: No leg edema. Laboratory Data: White count 11.8, hemoglobin 12.2, platelets 270. Sodium 138, potassium 4.1, chloride 101, bicarb 36, BUN 16, creatinine 0.43, glucose 98. Impression: 1. Hip fracture. 2. Osteoarthritis on multiple sites. 3. Chronic obstructive pulmonary disease. 4. Hypertension. Plan: We will go ahead and have Physical therapy continue to work with the patient. Continue current medical management. We will reduce prednisone dose to 10 mg twice a day. Continue nebulizer treatment and current pain medication. The patient's insurance company denied her benefit for inpatient rehab stay and I did call insurance company and talked to their physician and even after that she refused to approve any inpatient rehab benefit, so Social Service was notified and requested to go ahead and start working on alf facility placement and subsequently Social Service called me back notified me that the patient and her son they both would like for her to go back to [facility] with home health and home physical therapy services, so we will go ahead and have Social Service assist them with that. Possible discharge tomorrow depending on her condition. ARNOL/MODL Voice ID: [id number] Report ID: [id number] QUIN
[2020-12-12] MEDS: predniSONE 10 MG TAB PO SCH ×2 (08:54→16:34)
[2020-12-12] MEDS: AMLODIPINE 5 MG TAB PO SCH (08:54)
[2020-12-12] MEDS: DOCUSATE NA 100 MG CAP PO SCH (08:54)
[2020-12-12] MEDS: METOPROLOL XL 25 MG TAB PO SCH (08:55)
[2020-12-12] MEDS: FAMOTIDINE 20 MG TAB PO SCH ×2 (08:55→20:39)
[2020-12-12] MEDS: APIXABAN 2.5 MG TABLET PO SCH ×2 (08:55→20:39)
[2020-12-12] MEDS: ENSURE ENLIVE 237 ML CAN PO SCH ×2 (08:56→20:40)
[2020-12-12] MEDS: CEFTRIAXONE 1 GM/NS 50 ML 1 GM/50 ML BAG IV SCH (09:00)
--- NOTE | 2020-12-12 20:18 | PN ---
Date of Progress Note: 12/12/2020 Subjective: The patient was seen this morning for followup. No new complaints or problems reported by her lying in bed, not in distress. Objective: Vital Signs: Reviewed. HEENT: Unremarkable. Lungs: Clear to auscultation. Heart: Sounds normal. Abdomen: Soft. Bowel sounds normal. No guarding, rigidity, tenderness, distention. Extremities: No leg edema. Impression: 1.Hip fracture. 2.Chronic obstructive pulmonary disease. 3.Hypertension. 4.Osteoarthritis, multiple sites. Plan: We will go ahead and continue current anticoagulation therapy. The patient's IV access was lo st today and there is no need to restart another IV access. She has received IV ceftriaxone and no n eed to continue that anymore at this point. We will continue current dose of prednisone. Continue c urrent pain medication. Yesterday, the patient's insurance company refused inpatient rehab benefit, so we did recommend her to go to [facility], but the patient's son and the patient they both did not want to do that and they thought she was well enough to go back to her [facility] with home health care. With that plan in mind today, they realized that she needs more help than what day she can do for herself and what they realized. She will be able to do it padmini n with some help, so they are willing to go to [facility] facility. We will have to wait now fo social service to make those arrangements and this problem will happen sometime beginning of next week. Meanwhile, we will continue current medical management. ARNOL/MODL Voice ID: [id number] Report ID: [id number]
[2020-12-13] MEDS: TRAMADOL HCL 50 MG TAB PO PRN ×4 (00:15→23:42)
[2020-12-13] MEDS: NITROGLYCERIN 1 GM PKT TD SCH ×2 (00:16→05:26)
[2020-12-13] MEDS: ALBUTEROL 2.5 MG/3 ML NEB SOL NEB SCH ×4 (02:00→19:40)
[2020-12-13] MEDS: IPRATROPIUM BROM 0.5MG/2.5ML NEB SCH ×4 (02:00→19:40)
[2020-12-13] MEDS: DOCUSATE NA 100 MG CAP PO SCH ×2 (08:28→08:32)
[2020-12-13] MEDS: predniSONE 10 MG TAB PO SCH (08:28)
[2020-12-13] MEDS: APIXABAN 2.5 MG TABLET PO SCH ×2 (08:29→20:15)
[2020-12-13] MEDS: METOPROLOL XL 25 MG TAB PO SCH (08:29)
[2020-12-13] MEDS: AMLODIPINE 5 MG TAB PO SCH (08:29)
[2020-12-13] MEDS: ENSURE ENLIVE 237 ML CAN PO SCH ×2 (08:30→20:15)
[2020-12-13] MEDS: FAMOTIDINE 20 MG TAB PO SCH ×2 (09:00→20:15)
--- NOTE | 2020-12-13 12:34 | PN ---
Date of Progress Note: 12/13/2020 Subjective: The patient was seen this morning. She was sitting in the chair. Denies any complaints . Objective: Vital Signs: Reviewed. HEENT: Unremarkable. Lungs: Clear to auscultation. Heart: Sounds normal. Abdomen: Soft. Bowel sounds normal. No guarding, rigidity, tenderness, distention. Extremities: No leg edema. Impression: 1.Hip fracture. 2.Chronic obstructive pulmonary disease. 3.Hypertension. 4.Chronic steroid therapy. Plan: We will go ahead and continue tramadol on an as needed basis for pain control and we will stop hydrocodone. We will also stop nitroglycerin ointment that was started in the beginning for the blo od pressure control. Continue to monitor blood pressure, if necessary, make further adjustment on an tihypertensive medications. We will reduce dose of prednisone from 10 mg 2 times a day to 10 mg once a day. Physical therapy to continue to work with the patient and social service to make arrangement s for halfway facility placement. ARNOL/MODL Voice ID: [id number] Report ID: [id number]
[2020-12-14] MEDS: ALBUTEROL 2.5 MG/3 ML NEB SOL NEB SCH ×4 (01:45→20:10)
[2020-12-14] MEDS: IPRATROPIUM BROM 0.5MG/2.5ML NEB SCH ×4 (01:45→20:10)
[2020-12-14] MEDS: TRAMADOL HCL 50 MG TAB PO PRN (06:23)
[2020-12-14] MEDS: ENSURE ENLIVE 237 ML CAN PO SCH ×2 (09:00→19:40)
[2020-12-14] MEDS: DOCUSATE NA 100 MG CAP PO SCH (09:00)
[2020-12-14 09:39] LABS: Absolute Lymphocytes (CBC) 2.9 K/uL (0.7-4.9); Basophils % 0.2 % (0-1.3); Hematocrit 36.3 % (36.0-45.0); Lymphocytes % 30.5 % (15.3-44.8); MPV 6.3 fL (7.6-11.3)
[2020-12-14] MEDS: FAMOTIDINE 20 MG TAB PO SCH ×2 (09:40→19:39)
[2020-12-14] MEDS: APIXABAN 2.5 MG TABLET PO SCH ×2 (09:40→19:39)
[2020-12-14] MEDS: METOPROLOL XL 25 MG TAB PO SCH (09:40)
[2020-12-14] MEDS: predniSONE 10 MG TAB PO SCH (09:42)
[2020-12-14] MEDS: AMLODIPINE 5 MG TAB PO SCH (09:47)
[2020-12-14 09:50] LABS: BUN Blood Urea Nitrogen 12 mg/dL (7-18); Bicarbonate 29 mmol/L (21-32); Glucose Level 97 mg/dL (74-106); Magnesium 1.8 mg/dL (1.8-2.4); Potassium 4.3 mmol/L (3.5-5.1); Sodium Level 134 mmol/L (136-145)
--- NOTE | 2020-12-14 11:10 | PN ---
Date of Progress Note: 12/14/2020 Subjective: The patient was seen this morning for followup. She was lying in bed, not in distress. No new complaints or problems reported by her. Her pain is well controlled with current pain medica tions. Objective: Vital Signs: Reviewed. HEENT: Unremarkable. Lungs: Clear to auscultation. Heart: Sounds normal. Abdomen: Soft. Bowel sounds normal. No guarding, rigidity, tenderness, or distention. Extremities: No leg. Impression: 1.Hip fracture. 2.Chronic obstructive pulmonary disease. 3.Hypertension. 4.Osteoarthritis, multiple sites. Plan: We will continue current medications, continue current pain medications, continue current DVT prophylaxis and antihypertensive medications. The patient will continue to work with Physical Therap y and tomorrow we will work with Social Service to try to get arrangements for the patient to go to [facility]. ARNOL/MIRIAML Voice ID: [id number] Report ID: [id number]
[2020-12-15] MEDS: ALBUTEROL 2.5 MG/3 ML NEB SOL NEB SCH ×4 (02:10→20:00)
[2020-12-15] MEDS: IPRATROPIUM BROM 0.5MG/2.5ML NEB SCH ×4 (02:10→20:00)
[2020-12-15] MEDS: TRAMADOL HCL 50 MG TAB PO PRN ×2 (05:53→19:46)
[2020-12-15] MEDS: DOCUSATE NA 100 MG CAP PO SCH (09:00)
[2020-12-15] MEDS: ENSURE ENLIVE 237 ML CAN PO SCH ×2 (09:00→19:47)
[2020-12-15] MEDS: predniSONE 10 MG TAB PO SCH (09:00)
[2020-12-15] MEDS: METOPROLOL XL 25 MG TAB PO SCH (10:01)
[2020-12-15] MEDS: APIXABAN 2.5 MG TABLET PO SCH ×2 (10:01→19:46)
[2020-12-15] MEDS: AMLODIPINE 5 MG TAB PO SCH (10:02)
[2020-12-15] MEDS: FAMOTIDINE 20 MG TAB PO SCH ×2 (10:03→19:46)
[2020-12-15] MEDS: PARoxetine HCL 10 MG TAB PO SCH (18:00)
--- NOTE | 2020-12-15 19:26 | PN ---
Date of Progress Note: 12/15/2020 Subjective: The patient was seen this morning for followup. No new complaints or problems reported by her. Lying in bed, not in distress. Objective: Vital Signs: Reviewed. HEENT: Unremarkable. Lungs: Clear to auscultation. Heart: Sounds normal. Abdomen: Soft. Bowel sounds normal. No guarding, rigidity, tenderness, distention. Extremities: No leg edema. Impression: 1.Hip fracture. 2.Hypertension. 3.Chronic obstructive pulmonary disease. 4.Osteoarthritis, multiple sites. 5.Hypothyroidism. Plan: We will continue current medications. Continue current DVT prophylaxis and levothyroxine. Th e patient has not taken her paroxetine or levothyroxine since she has been in the hospital and order was written to restart those medications. Physical Therapy to continue to work with the patient, Soc ial Service to assist the patient with [facility] facility placement and once that is arranged, we will be able to discharge her. She is medically stable for discharge. ARNOL/MODL Voice ID: [id number] Report ID: [id number]
[2020-12-16] MEDS: IPRATROPIUM BROM 0.5MG/2.5ML NEB SCH ×3 (02:00→14:00)
[2020-12-16] MEDS: ALBUTEROL 2.5 MG/3 ML NEB SOL NEB SCH ×3 (02:00→14:00)
[2020-12-16] MEDS: TRAMADOL HCL 50 MG TAB PO PRN ×2 (02:27→14:10)
[2020-12-16] MEDS ORDERED: LEVOTHYROXINE SOD 0.05 MG TABLET PO SCH (06:30)
[2020-12-16 08:30] VITALS: O2SAT 100
[2020-12-16] MEDS: DOCUSATE NA 100 MG CAP PO SCH (08:58)
[2020-12-16] MEDS: predniSONE 10 MG TAB PO SCH (08:58)
[2020-12-16] MEDS: FAMOTIDINE 20 MG TAB PO SCH (08:58)
[2020-12-16] MEDS: METOPROLOL XL 25 MG TAB PO SCH (08:59)
[2020-12-16] MEDS: AMLODIPINE 5 MG TAB PO SCH (08:59)
[2020-12-16] MEDS: APIXABAN 2.5 MG TABLET PO SCH (08:59)
[2020-12-16] MEDS: PARoxetine HCL 10 MG TAB PO SCH (09:00)
[2020-12-16] MEDS: ENSURE ENLIVE 237 ML CAN PO SCH (09:01)
[2020-12-16 13:21] VITALS: BP 138/51; TEMP 98.6
--- NOTE | 2020-12-17 07:04 | DS ---
Date of Discharge: 12/16/2020 Disposition: Discharged to go back home at [facility] with home health care and home geophysical data technician apy. Physical Examination: HEENT: Examination unremarkable. Lungs: Clear to auscultation. Heart: Sounds normal. Abdomen: Soft, bowel sounds normal. No guarding, rigidity, tenderness, or distention. Extremities: No leg edema. Laboratory Data: Last CBC from 12/14/2020, white count 9.6, hemoglobin 12.2 and a platelet count of 297. Upon admission, white count was 15.7, hemoglobin was 13.9, platelets 247. The last chemistry f rom 12/14/2020, sodium 134, potassium 4.3, chloride 101, bicarb 29, BUN 12, creatinine 0.50, glucose 97. Upon admission, sodium 137, potassium 3.6, chloride 101, bicarb 30, BUN 12, creatinine 0.61, glu cose 122. Liver function tests unremarkable. Hospital Course: This is an 89-year-old female patient admitted to the hospital with hip fracture. Please see dictated H and P for more information. The patient was admitted to the hospital with left hip subcapital fracture. This appeared to be subacute in nature. After cardiology clearance was ob tained, she was admitted to the hospital. Echocardiogram was unremarkable. Cardiology consultation was obtained from Dr. Bee. Dr. Whitman from Orthopedic Surgery was consulted and the patient had estella james done last week. Postoperatively, she has done well. Physical therapy was consulted and [facility] re[facility] was consulted. The patient's insurance company denied for patient to go to inpatient rehab, and I did contact the patient's insurance company and talked to physician at the insurance company jennie pena to appeal this, and she is still denied inpatient rehab benefit. After that, the patient's son and the patient they both decided that they want to go home back to [facility] with home health and home physical therapy and did not want to go to [facility] as we suggested, but after they made their decision, they realized that she needed more help than what they thought, so then the y were agreeable to go to [facility] and this was last week on Tuesday. Social Service was requested to help make arrangements for [facility] facility, but over the weekend, no such a rrangements could be made and while this week, the Social Service was in process of making arrangemen ts with [facility] facility of the patient's choice. All of a sudden today, the patient's son a nd the patient they both decided that now they do not want to go to long-term. They are ready to go back to [facility] and they wanted to get discharged as soon as possible. The patient is medica lly stable for discharge. Home health and home physical therapy to be provided with the home health agency of her choice and Social Service has arranged for all those. Final Diagnoses: 1.Left hip subcapital fracture. 2.Hypertension. 3.Chronic obstructive pulmonary disease. 4.Hyperlipidemia. 5.Chronic diastolic congestive heart failure. 6.Hypothyroidism. 7.Osteoporosis. 8.Rheumatoid arthritis. Discharge Medications And Instructions: 1.Continue prior home medications. 2.Take Eliquis 2.5 mg 2 times a day for 2 weeks. 3.Followup at my office next week on Tuesday, which is 12/23/2020. 4.Followup with Dr. Whitman in 2 weeks. ARNOL/MODL Voice ID: [id number] Report ID: [id number]
== END 2020-12-16 15:35 | disposition home health service (06) | DRG 521 ==
LOC: ER 10:21 → ERHOLD 13:05 → 2ND 15:18
PROVIDERS: ADMIT Internal Medicine; ATTEND Internal Medicine
PROC: 0SRS0J9 Replacement of Left Hip Joint, Femoral Surface with Synthetic Substitute, Cemented, Open Approach (ICD-10-PCS; principal; 2020-12-08 11:00)
DX: S72.012A Unspecified intracapsular fracture of left femur, initial encounter for closed fracture (principal); G92.9 Unspecified toxic encephalopathy; I50.32 Chronic diastolic (congestive) heart failure; E03.9 Hypothyroidism, unspecified; J44.9 Chronic obstructive pulmonary disease, unspecified; I11.0 Hypertensive heart disease with heart failure; D64.9 Anemia, unspecified; M81.0 Age-related osteoporosis without current pathological fracture; M06.9 Rheumatoid arthritis, unspecified; M15.9 Polyosteoarthritis, unspecified; E78.5 Hyperlipidemia, unspecified; Z79.52 Long term (current) use of systemic steroids
CPT/HCPCS: 36415; 51702; 70450; 71045; 71260; 72170; 74177; 80048; 80076; 81003; 81015; 82150; 82550; 82553; 83605; 83690; 83735; 84145; 84484; 85014; 85018; 85025; 85610; 85730; 86850; 86900; 86901; 87040; 88304; 88305; 88311; 93005; 93306; 94640; 96374; 96375; 97116; 97161; 97530; 99285; J0171; J0690; J0696; J1644; J1650; J1720; J2250; J2270; J2405; J2704; J2710; J3010; J7030; J7120; J7512; J7799; Q9967; U0003

== ENCOUNTER 2021-01-11 15:19 | Inpatient (IN) | payer OTHER ==
[2021-01-11 15:57] LABS: Absolute Lymphocytes (CBC) 1.9 K/uL (0.7-4.9); Basophils % 0.7 % (0-1.3); Hematocrit 34.7 % (36.0-45.0); Lymphocytes % 24.2 % (15.3-44.8); MPV 6.2 fL (7.6-11.3); RBC Red Blood Cell Count 3.66 M/uL (3.86-4.86)
[2021-01-11 16:03] LABS: Protime INR 0.97
[2021-01-11 16:16] LABS: ALT/SGPT 30 U/L (12-78); AST/SGOT 23 U/L (15-37); Albumin 2.6 g/dL (3.4-5.0); Alkaline Phosphatase 136 U/L (45-117); BUN Blood Urea Nitrogen 15 mg/dL (7-18); Bicarbonate 32 mmol/L (21-32); Bilirubin Direct 0.2 mg/dL (0-0.2); Bilirubin Total 0.6 mg/dL (0.2-1.0); Glucose Level 146 mg/dL (74-106); Magnesium 2.2 mg/dL (1.8-2.4); NT PRO-BNP 413 pg/mL (<450); Potassium 3.9 mmol/L (3.5-5.1); Protein, Total 5.9 g/dL (6.4-8.2); Sodium Level 139 mmol/L (136-145); Troponin (Emerg Dept Use Only) < 0.02 ng/mL (0.0-0.045)
[2021-01-11] MEDS ORDERED: FENTANYL CITR 100 MCG/2 ML ONE (16:54)
--- NOTE | 2021-01-11 17:17 | RAD REPORT ---
EXAM DESCRIPTION: US - Extrem Venous W Compress Jacob - 01/11/2021 4:37 pm CLINICAL HISTORY: Pain;Swelling COMPARISON: None. TECHNIQUE: Real-time sonographic evaluation of the bilateral lower extremity common femoral, superfi cial femoral, popliteal and posterior tibial veins was performed. FINDINGS: Normal compressibility, flow augmentation, phasic flow and spontaneous flow are identified in the left and right lower extremity common femoral, superficial femoral, popliteal and posterior t ibial veins. No intraluminal filling defects seen. IMPRESSION: No DVT in either lower extremity.
--- NOTE | 2021-01-11 17:27 | RAD REPORT ---
EXAM DESCRIPTION: RAD - Chest Single View - 01/11/2021 4:17 pm CLINICAL HISTORY: leg swelling, shortness of breath COMPARISON: December 05 TECHNIQUE: AP portable chest image was obtained 01/11/2021 4:17 pm . FINDINGS: No acute lung parenchymal process seen. No failure or volume overload. Heart and vasculatu re are normal. No measurable pleural effusion and no pneumothorax. No acute bony abnormality seen. No acute aortic findings suspected. IMPRESSION: No acute cardiopulmonary process. No significant change from comparison.
--- NOTE | 2021-01-11 18:20 | RAD REPORT ---
EXAM DESCRIPTION: CT - Pelvis Wo Cont - 01/11/2021 5:57 pm CLINICAL HISTORY: left hip pain, recent left hip prosthesis placement COMPARISON: Hip Left 2 View dated 01/11/2021; Pelvis dated 01/11/2021; Chest Abdomen Pelvis W Cont d ated 12/05/2020 TECHNIQUE: Axial noncontrast 2 mm images of the pelvis were obtained without contrast. Sagittal and coronal reformatted images generated and reviewed. All CT scans are performed using dose optimization technique as appropriate and may include automate d exposure control or mA/KV adjustment according to patient size. FINDINGS: Prominent lower lumbar degenerative changes are present. Partial compression fracture defo rmities of L4 and L5 match the December 05 study. Disc bulge changes are present. Spinal stenosis pr esent at L4-5. No paraspinal soft tissue mass. Sacral ala are intact. SI joint degenerative changes are present similar to comparison study. Acetabular fracture is present. In the deep portion of the acetabulum there is a fracture that extend s from the acetabular articular surface through the medial cortical margin of the pelvis. This fractu re was not present on the December 05 examination. No other fracture of the bony pelvis seen. Right hip joint and proximal right femur are unremarkable. No acute findings involving the left bipolar pro sthesis or proximal femur. No periarticular mass or hematoma seen. There is a large volume of stool distending the right-side of the colon. Prominent diverticulosis is present. Patient has a left inguinal hernia containing a loop of small bowel. No bowel obstruction se en. This herniated bowel loop was present on the prior study. IMPRESSION: Left acetabulum fracture is present. In the deep or central portion of the acetabulum th ere is fracture that traverses from the articular surface of the acetabulum through the medial cortic al margin. This is new from the December 05 examination. No other fracture of the bony pelvis. Left femoral component and proximal femur show no acute finding . Additional nonacute findings are detailed in the body of the report.
--- NOTE | 2021-01-11 19:13 | ER ---
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 she tw2 has not done a follow up appt as of yet to Dr. Whitman. she has been taking Tylenol #3 and the pain has increased 3 days ago. she demanded that she walk to our stretcher. after ambulating to stretcher she was 0/10. vs stable. Coronavirus screen: At this time, the client does not indicate any symptoms associated with coronavirus-19. Ebola Screen: Patient denies travel to an Ebola-affected area in the 21 days before illness onset. Initial Sepsis Screen: Does the patient meet any 2 criteria? No. Patient's initial sepsis screen is negative. Does the patient have a suspected source of infection? No. Patient's initial sepsis screen is negative. Risk Assessment: Do you want to hurt yourself or someone else? Patient reports no desire to harm self or others. Onset of symptoms was January 11, 2021. 15:20 Method Of Arrival: EMS: [facility] tw2 15:20 Acuity: TAVON 4 tw2 15:35 Acuity: TAVON 3 iw Triage Assessment: 15:20 General: Appears in no apparent distress. Behavior is calm, cooperative, appropriate tw2 for age. Pain: Complains of pain in left hip. EENT: No signs and/or symptoms were reported regarding the EENT system. Neuro: Level of Consciousness is awake, alert, obeys commands, Oriented to person, place, time, situation. Cardiovascular: Patient's skin is warm and dry. Respiratory: Airway is patent Respiratory effort is even, unlabored, Respiratory pattern is regular, symmetrical. GI: No signs and/or symptoms were reported involving the gastrointestinal system. Musculoskeletal: Range of motion: intact in all extremities. Historical: - Allergies: 15:24 Asacol; tw2 15:24 Aspirin; tw2 15:24 Humira; tw2 15:24 Methotrexate; tw2 15:24 Orencia; tw2 15:24 Phenergan; tw2 15:24 Sulfazine; tw2 - Home Meds: 15:24 Symbicort 160-4.5 mcg/actuation inhalation HFAA 2 puffs 2 times per day [Active]; tw2 benzonatate 200 mg Oral cap 1 cap 3 times per day [Active]; albuterol sulfate 90 mcg/actuation Inhl HFAA 2 puffs every 6 hours [Active]; atorvastatin 40 mg Oral tab 1 tab once daily [Active]; Cyclobenzaprine Oral [Active]; famotidine 20 mg Oral tab 1 tab once daily [Active]; gabapentin 100 mg Oral cap 1 caps 3 times per day [Active]; hydrocodone-acetaminophen 5-325 mg Oral tab [Active]; melatonin 3 mg Oral tab 2 tab nightly [Active]; levothyroxine 50 mcg tab 1 tab once daily [Active]; prednisone 5 mg Oral tab 2 tabs twice a day [Active]; paroxetine HCl 40 mg Oral tab 1 tab once daily [Active]; Spiriva with HandiHaler 18 mcg inhalation CpDv 1 cap once daily [Active]; omeprazole 40 mg Oral cpDR 1 cap once daily [Active]; furosemide 20 mg Oral tab 1 tab once daily [Active]; albuterol sulfate 2.5 mg /3 mL (0.083 %) Inhl nebu 3 mL 3 times per day [Active]; - PMHx: 15:24 Arthritis; Depression; COPD; GERD; Hypothyroidism; Hyperlipidemia; tw2 - Immunization history:: Adult Immunizations. - Social history:: Smoking status: . Screenin:35 Abuse screen: Denies threats or abuse. Nutritional screening: No deficits noted. tw2 Tuberculosis screening: No symptoms or risk factors identified. Fall Risk Secondary diagnosis (15 points) impaired mobility. Assessment: 16:45 Reassessment: Patient appears in no apparent distress at this time. No changes from tw2 previously documented assessment. Patient and/or family updated on plan of care and expected duration. Pain level reassessed. Patient is alert, oriented x 3, equal unlabored respirations, skin warm/dry/pink. 17:48 Reassessment: Patient appears in no apparent distress at this time. No changes from tw2 previously documented assessment. Patient and/or family updated on plan of care and expected duration. Pain level reassessed. Patient is alert, oriented x 3, equal unlabored respirations, skin warm/dry/pink. 18:58 Reassessment: Patient appears in no apparent distress at this time. Patient and/or tw2 family updated on plan of care and expected duration. Pain level reassessed. Patient is alert, oriented x 3, equal unlabored respirations, skin warm/dry/pink. provider KANDICE Jerome requested pt be ambulated at this time. pt able to ambulate 40 feet with out problems. standby assist only. pt states "it hurts a little but i can tolerate it. i am ready to go home". provider notified. Patient states feeling better. Vital Signs: 15:20 BP 133 / 64; Pulse 81; Resp 17; Temp 97.9; Pulse Ox 97% on R/A; Weight 49.44 kg (R); tw2 Pain 0/10; 16:45 BP 148 / 76; Pulse 81; Resp 22; Pulse Ox 96% on R/A; tw2 17:48 BP 136 / 89; Pulse 90; Resp 22; Pulse Ox 97% on R/A; tw2 19:30 BP 151 / 85; Pulse 94; Resp 17; Temp 98.0; Pulse Ox 98% ; Pain 0/10; dc2 20:30 BP 149 / 70; Pulse 85; Resp 20; Temp 97.2(TE); Pulse Ox 97% ; Pain 0/10; dc2 21:45 BP 148 / 61; Pulse 99; Resp 16; Pulse Ox 97% on R/A; Pain 0/10; dc2 23:00 BP 141 / 73; Pulse 101; Resp 17; Temp 97.6; Pulse Ox 99% on R/A; Pain 0/10; dc2 ED Course: 15:20 Patient arrived in ED. tw2 15:20 Tommy Grimes PA is PHCP. cp 15:20 Bismark Adams MD is Attending Physician. cp 15:20 Bed in low position. Call light in reach. Side rails up X 1. Pulse ox on. NIBP on. Warm tw2 blanket given. 15:24 Triage completed. tw2 15:24 Ping Evans, RN is Primary Nurse. tw2 15:24 Arm band placed on. tw2 15:40 Initial lab(s) drawn, by me, sent to lab. Inserted saline lock: 22 gauge in left 3 antecubital area, using aseptic technique. Blood collected. 16:00 EKG done, by ED staff, reviewed by Tommy WOODSON. dh3 16:17 XRAY Chest (1 view) In Process Unspecified. EDMS 16:17 XRAY Pelvis In Process Unspecified. EDMS 16:17 XRAY Hip LEFT 2 view In Process Unspecified. EDMS 16:37 US Extremity Venous W Compression Jacob In Process Unspecified. EDMS 17:57 CT Pelvis wo Cont In Process Unspecified. EDMS 19:10 Abisai Pope DO is Hospitalizing Provider. cp 19:14 Bharti Pollock MD is Hospitalizing Provider. cp 19:30 Primary Nurse role handed off by Ping Evans RN mw2 19:30 No apparent distress. Resting quietly. Awaiting bed assignment. dc2 19:30 No provider procedures requiring assistance completed. dc2 21:17 Pilar De Guzman RN is Primary Nurse. dc2 22:17 COVID-19 (Coronavirus) Document "Date of Onset" if Symptomatic Sent. dc2 22:17 CORONAVIRUS Sent. dc2 22:18 IV Changed dressing on left antecubital dc2 Administered Medications: 16:00 Drug: fentaNYL (PF) 25 mcg {Note: rass 0.} Route: IVP; Site: left antecubital; tw2 17:00 Follow up: Response: No adverse reaction; Pain is decreased tw2 Outcome: 19:12 Decision to Hospitalize by Provider. cp 23:25 Admitted to Med/surg accompanied by tech, via stretcher, room 204, with chart, Report dc2 called to GUME Penny 23:26 Condition: stable dc2 01/12 00:32 Patient left the ED. dc2 Signatures: Dispatcher [employer] Ruth Dallas RN RN iw Page, Corey, PA PA cp Wise, Tara, RN RN tw2 Noemi Kerr [facility] Joaquim Francisco mw2 Pilar De Guzman RN RN dc2 Corrections: (The following items were deleted from the chart) 01/11 19:15 18:58 Reassessment: Patient appears in no apparent distress at this time. Patient tw2 and/or family updated on plan of care and expected duration. Pain level reassessed. Patient is alert, oriented x 3, equal unlabored respirations, skin warm/dry/pink. pt able to ambulate 40 feet with out problems. states "it hurts a little but i can tolerate it. i am ready to go home". provider notified. Patient states feeling better. tw2
--- NOTE | 2021-01-11 19:13 | EDPHYS ---
Physician Documentation [facility] Name: Elva Jenkins Age: 89 yrs Sex: Female : 1930 Arrival Date: 01/11/2021 Time: 15:20 Bed 14 Private MD: ED Physician Bismark Adams HPI: 01/11 15:30 This 89 yrs old Female presents to ER via EMS with complaints of Hip Pain. cp 15:30 The patient or guardian reports pain. The complaints affect the left hip. Onset: The cp symptoms/episode began/occurred today. 15:30 Associated signs and symptoms: Pertinent negatives: abdominal pain, chest pain, cp dysuria, fever, incontinence. 15:30 Severity of symptoms: in the emergency department the symptoms have improved, mildly. cp Patient denies any recent fall prior to pain. Reports history of right hip replacement surgery by DR Whitman approximately 1 month ago. Historical: - Allergies: 15:24 Asacol; tw2 15:24 Aspirin; tw2 15:24 Humira; tw2 15:24 Methotrexate; tw2 15:24 Orencia; tw2 15:24 Phenergan; tw2 15:24 Sulfazine; tw2 - Home Meds: 15:24 Symbicort 160-4.5 mcg/actuation inhalation HFAA 2 puffs 2 times per day [Active]; tw2 benzonatate 200 mg Oral cap 1 cap 3 times per day [Active]; albuterol sulfate 90 mcg/actuation Inhl HFAA 2 puffs every 6 hours [Active]; atorvastatin 40 mg Oral tab 1 tab once daily [Active]; Cyclobenzaprine Oral [Active]; famotidine 20 mg Oral tab 1 tab once daily [Active]; gabapentin 100 mg Oral cap 1 caps 3 times per day [Active]; hydrocodone-acetaminophen 5-325 mg Oral tab [Active]; melatonin 3 mg Oral tab 2 tab nightly [Active]; levothyroxine 50 mcg tab 1 tab once daily [Active]; prednisone 5 mg Oral tab 2 tabs twice a day [Active]; paroxetine HCl 40 mg Oral tab 1 tab once daily [Active]; Spiriva with HandiHaler 18 mcg inhalation CpDv 1 cap once daily [Active]; omeprazole 40 mg Oral cpDR 1 cap once daily [Active]; furosemide 20 mg Oral tab 1 tab once daily [Active]; albuterol sulfate 2.5 mg /3 mL (0.083 %) Inhl nebu 3 mL 3 times per day [Active]; - PMHx: 15:24 Arthritis; Depression; COPD; GERD; Hypothyroidism; Hyperlipidemia; tw2 - Immunization history:: Adult Immunizations. - Social history:: Smoking status: . ROS: 15:35 Constitutional: Negative for body aches, chills, fever, poor PO intake. cp 15:35 Eyes: Negative for injury, pain, redness, and discharge. cp 15:35 ENT: Negative for ear pain, sore throat, difficulty swallowing, difficulty handling secretions. 15:35 Cardiovascular: Positive for edema, Negative for chest pain, palpitations. 15:35 Respiratory: Negative for cough, shortness of breath, wheezing. cp 15:35 Abdomen/GI: Negative for abdominal pain, nausea, vomiting, and diarrhea. cp 15:35 Back: Negative for pain at rest, pain with movement. 15:35 MS/extremity: Positive for pain, of the left hip, Negative for injury or acute deformity, paresthesias. 15:35 Skin: Negative for rash. 15:35 Neuro: Negative for altered mental status, headache, weakness. 15:35 All other systems are negative. Exam: 15:40 Constitutional: The patient appears in no acute distress, alert, awake, cp non-diaphoretic, non-toxic, well developed, frail. 15:40 Head/Face: Normocephalic, atraumatic. cp 15:40 Eyes: Periorbital structures: appear normal, Conjunctiva: normal, no exudate, no injection, Sclera: no appreciated abnormality, Lids and lashes: appear normal, bilaterally. 15:40 ENT: External ear(s): are unremarkable, Nose: is normal, Mouth: Lips: moist, Oral mucosa: moist, Posterior pharynx: Airway: no evidence of obstruction, patent. 15:40 Chest/axilla: Inspection: normal, Palpation: is normal, no crepitus, no tenderness. 15:40 Cardiovascular: Rate: normal, Rhythm: regular, Edema: ankle edema, that is moderate, JVD: is not appreciated. 15:40 Respiratory: the patient does not display signs of respiratory distress, Respirations: normal, no use of accessory muscles, no retractions, labored breathing, is not present, Breath sounds: are clear throughout, no decreased breath sounds, no stridor, no wheezing. 15:40 Abdomen/GI: Inspection: abdomen appears normal, Bowel sounds: active, all quadrants, Palpation: abdomen is soft and non-tender, in all quadrants. 15:40 Back: pain, is absent, ROM is normal. 15:40 Musculoskeletal/extremity: Extremities: noted in the left hip: pain, There is no evidence of decreased ROM, deformity. 15:40 Skin: cellulitis, is not appreciated, no rash present. 15:40 Neuro: Orientation: to person, place \\T\\ time. Mentation: is normal, Motor: moves all fours, strength is normal, Sensation: is normal. 16:00 ECG was reviewed by the Attending Physician. Vital Signs: 15:20 BP 133 / 64; Pulse 81; Resp 17; Temp 97.9; Pulse Ox 97% on R/A; Weight 49.44 kg (R); tw2 Pain 0/10; 16:45 BP 148 / 76; Pulse 81; Resp 22; Pulse Ox 96% on R/A; tw2 17:48 BP 136 / 89; Pulse 90; Resp 22; Pulse Ox 97% on R/A; tw2 19:30 BP 151 / 85; Pulse 94; Resp 17; Temp 98.0; Pulse Ox 98% ; Pain 0/10; dc2 20:30 BP 149 / 70; Pulse 85; Resp 20; Temp 97.2(TE); Pulse Ox 97% ; Pain 0/10; dc2 21:45 BP 148 / 61; Pulse 99; Resp 16; Pulse Ox 97% on R/A; Pain 0/10; dc2 23:00 BP 141 / 73; Pulse 101; Resp 17; Temp 97.6; Pulse Ox 99% on R/A; Pain 0/10; dc2 MDM: 15:27 Patient medically screened. cp 16:00 Differential diagnosis: hip fracture, bursitis, arthritis, DVT. cp 18:37 Data reviewed: vital signs, nurses notes, lab test result(s), EKG, radiologic studies, cp CT scan, plain films. Physician consultation: Jacob Whitman MD was called at 18:38, left message on voicemail. 19:10 Physician consultation: Jacob Whitman MD regarding consult, patient's condition, would cp like admission per Dr. Bharti Pollock MD. 01/11 15:27 Order name: Basic Metabolic Panel 01/11 15:27 Order name: CBC with Diff 01/11 15:27 Order name: LFT's; Complete Time: 16:18 01/11 16:18 Interpretation: Normal except: ALK 136; TP 5.9; ALB 2.6; A/G 0.8. 01/11 15:27 Order name: Magnesium; Complete Time: 16:18 01/11 15:27 Order name: NT PRO-BNP; Complete Time: 16:18 cp 01/11 16:19 Interpretation: NT PRO-BNP 413; Reviewed. 01/11 15:27 Order name: PT-INR; Complete Time: 16:18 01/11 15:27 Order name: Troponin (emerg Dept Use Only); Complete Time: 16:18 01/11 16:49 Interpretation: TROPED < 0.02; Reviewed. 01/11 15:27 Order name: Basic Metabolic Panel; Complete Time: 16:18 EDMS 01/11 16:19 Interpretation: Normal except: GLUC 146; GFR 50; CA 8.0. 01/11 15:27 Order name: CBC with Automated Diff; Complete Time: 16:18 EDMS 01/11 16:19 Interpretation: Normal except: RBC 3.66; HGB 11.5; HCT 34.7; MPV 6.2. 01/11 19:50 Order name: Basic Metabolic Panel EDMS 01/11 19:50 Order name: Basic Metabolic Panel EDMS 01/11 19:50 Order name: CBC with Automated Diff EDMS 01/11 19:50 Order name: CBC with Automated Diff EDMS 01/11 21:00 Order name: COVID-19 (Coronavirus) Document "Date of Onset" if Symptomatic mw2 01/11 15:27 Order name: XRAY Chest (1 view); Complete Time: 18:33 01/11 15:27 Order name: EKG; Complete Time: 15:27 01/11 15:27 Order name: Cardiac monitoring; Complete Time: 16:00 01/11 15:27 Order name: EKG - Nurse/Tech; Complete Time: 16:00 01/11 15:27 Order name: IV Saline Lock; Complete Time: 15:44 01/11 15:27 Order name: Labs collected and sent; Complete Time: 15:44 cp 01/11 15:27 Order name: O2 Per Protocol; Complete Time: 15:44 cp 01/11 15:27 Order name: US Extremity Venous W Compression Jacob; Complete Time: 18:33 cp 01/11 15:27 Order name: XRAY Pelvis cp 01/11 15:27 Order name: XRAY Hip LEFT 2 view cp 01/11 17:03 Order name: CT Pelvis wo Cont; Complete Time: 18:33 cp 01/11 19:50 Order name: CONS Physician Consult; Complete Time: 22:17 EDMS 01/11 19:50 Order name: Regular; Complete Time: 22:18 EDMS 01/11 21:52 Order name: CORONAVIRUS EDMA 01/11 22:48 Order name: SARS-COV-2 RT PCR EDMA 01/11 15:27 Order name: O2 Sat Monitoring; Complete Time: 15:44 cp EC:00 Rate is 79 beats/min. Rhythm is regular. DC interval is normal. QRS interval is normal. cp QT interval is normal. Interpreted by me. Reviewed by me. Administered Medications: 16:00 Drug: fentaNYL (PF) 25 mcg {Note: rass 0.} Route: IVP; Site: left antecubital; tw2 17:00 Follow up: Response: No adverse reaction; Pain is decreased tw2 Disposition: 01/12 06:34 Co-signature as Attending Physician, Bismark Adams MD I agree with the assessment and kdr plan of care. Disposition Summary: 01/11/21 19:12 Hospitalization Ordered Hospitalization Status: Inpatient Admission cp Location: Telemetry/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
[2021-01-11] MEDS ORDERED: ONDANSETRON 4 MG/2 ML VIAL IV PRN (19:45)
[2021-01-11] MEDS ORDERED: ACETAMINOPHEN 500 MG TAB PO PRN (19:45)
[2021-01-11] MEDS ORDERED: FENTANYL CITR 100 MCG/2 ML IV PRN (19:49)
[2021-01-12 00:19] VITALS: BMI 22.0
[2021-01-12] MEDS ORDERED: ALBUTEROL INHALER 60 PUFF/8 GM IH PRN (04:28)
[2021-01-12] MEDS ORDERED: ALBUTEROL 2.5 MG/3 ML NEB SOL IH PRN (04:28)
[2021-01-12 04:30] LABS: Absolute Lymphocytes (CBC) 3.6 K/uL (0.7-4.9); Basophils % 0.4 % (0-1.3); Hematocrit 33.4 % (36.0-45.0); Lymphocytes % 41.5 % (15.3-44.8); MPV 5.9 fL (7.6-11.3); RBC Red Blood Cell Count 3.54 M/uL (3.86-4.86)
[2021-01-12 04:41] LABS: BUN Blood Urea Nitrogen 16 mg/dL (7-18); Bicarbonate 33 mmol/L (21-32); Glucose Level 71 mg/dL (74-106); Sodium Level 141 mmol/L (136-145)
[2021-01-12] MEDS: LEVOTHYROXINE SOD 0.05 MG TABLET PO SCH (07:30)
[2021-01-12] MEDS ORDERED: HYDROCODONE/APAP 5/325 MG TAB PO PRN (07:49)
[2021-01-12] MEDS: FUROSEMIDE 20 MG TABLET PO SCH ×2 (09:06→21:00)
[2021-01-12] MEDS: ENOXAPARIN 40 MG/0.4 ML SQ SCH (09:06)
[2021-01-12] MEDS: predniSONE 5 MG TAB PO SCH ×2 (09:06→21:00)
[2021-01-12] MEDS: PARoxetine HCL 10 MG TAB PO SCH (09:07)
[2021-01-12] MEDS: TIOTROPIUM 5 SPRAYS/INHALER IH SCH (09:07)
--- NOTE | 2021-01-12 10:54 | RAD REPORT ---
EXAM DESCRIPTION: RAD - Pelvis - 01/11/2021 4:17 pm CLINICAL HISTORY: left hip pain COMPARISON: Pelvis dated 12/05/2020 TECHNIQUE: AP imaging of the pelvis was obtained. FINDINGS: Fracture of the pelvis is not identifiable. Sacral ala is too obscured by bowel gas for ev aluation. Proximal right femur shows no suspicious finding. Bipolar prosthesis present on the left. No change in positioning of the femoral or acetabular compone nts. No radiographic evidence for loosening. No suspicious soft tissue finding. IMPRESSION: 1. No acute pelvic finding identifiable. The sacral ala are obscured by bowel. 2. Left bipolar prosthesis and associated bill moore's slough bone show no acute findings. 3. If the patient has persistent pain at the site of proportion to the imaging findings, follow-up CT imaging of the pelvis could be obtained to evaluate for any occult bony injuries.
--- NOTE | 2021-01-12 12:51 | RAD REPORT ---
EXAM DESCRIPTION: RAD - Hip Left 2 View - 01/11/2021 4:17 pm CLINICAL HISTORY: PAIN COMPARISON: Hip Left 2 View dated 12/08/2020; Hip Left 2 View dated 12/05/2020; Pelvis Wo Cont dated 1 FINDINGS: AP and frogleg views of the left hip were obtained. There is no fracture or dislocation. Left bipolar prosthesis is in place. No radiographic evidence fo r loosening. Femoral component and acetabular bipolar cup similar in positioning to the immediate pos toperative examination. No suspicious or unexpected bone or implant finding. No soft tissue abnormality. IMPRESSION: Negative left hip examination for acute or significant findings.
[2021-01-12] MEDS ORDERED: ATORVASTATIN 40 MG TAB PO SCH (21:00)
--- NOTE | 2021-01-13 07:06 | HP ---
Date of Admission: 01/12/2021 Chief Complaint: Hip pain. History Of Present Illness: This is an 89-year-old female patient who recently had surgery for hip fracture by Dr. Whitman. Lives at [facility]. Denies any fall or injury since her surgery. She came into emergency room with increasing left hip pain. After she was evaluated in the ER, she was diagnosed as having fracture of the left acetabulum and she was admitted to the hospital. Allergies: TO METHOTREXATE, CAUSING SHORTNESS OF BREATH; PHENERGAN, CAUSING HALLUCINATION; SULFASALAZINE, CAUSING HEADACHE; RITUXAN, CAUSING LEG SWELLING; MESALAMINE, CAUSING HIVES; HUMIRA, CAUSING FACE SWELLING; ORENCIA, CAUSING JOINT PAIN. Review of Systems: Musculoskeletal: As mentioned above. Cardiovascular: Chronic leg edema. All other systems reviewed and negative. Medications: List reviewed. Past Medical History: Significant for hypothyroidism; COPD; DVT of leg; pulmonary embolism, diagnosed in August 2017, this was treated with anticoagulation therapy; hypertension; hyperlipidemia; chronic diastolic congestive heart failure; lymphedema of legs; rheumatoid arthritis; anemia; anxiety; osteoporosis, for which she was prescribed bisphosphonate, but she was not taking it and recently after her hip fracture, I did advice her to start taking it as prescribed as of February 2021. Past Surgical History: Cataract surgery, appendectomy, hernia repair, hysterectomy, back surgery, kyphoplasty, and recent left hip surgery for fracture. Family History: Significant for father had hypertension and macular degeneration. Mother , details unknown, but had macular degeneration as well. Social History: Negative for alcohol and smoking. Physical Examination: Vital Signs: Height 4 feet 11 inches, weight 109 pounds. Temperature 98.7, pulse 98, respiratory rate 18, blood pressure 156/75, oxygen saturation 93%. General: Awake, alert, oriented, not in distress. HEENT: Head atraumatic, normocephalic. Conjunctivae nonerythematous. Sclerae white. Mouth, no thrush or edema noted. Ears/Nose, no mass, lesion, discharge noted. Neck: Supple. No JVD, lymph nodes, bruit, thyromegaly noted. Lungs: Bilateral good equal air entry. Clear to auscultation. No rhonchi. No rales. Heart: Normal heart sounds, no murmur or gallop. Abdomen: Soft, bowel sounds normal. No guarding, rigidity, tenderness, mass, hepatosplenomegaly, distention, or bruit noted. Extremities: Bilateral grade 1 pedal edema involving lower half of both lower extremities. Overall, this is better compared to what it was when I saw her at office last time, last week. No calf tenderness. Skin: No rash, ulcer, cellulitis. Lymphatics: No lymph node enlargement in neck, supraclavicular, infraclavicular region. Neuro: No focal neurological deficit. Chest: Unremarkable. External Genitalia: Deferred. Rectal: Deferred. Laboratory Data: Yesterday, white count 7.7, hemoglobin 11.5, platelets 342. This morning, white count 8.7, hemoglobin 11.5, platelets 330. Yesterday, sodium 139, potassium 3.9, chloride 101, bicarb 32, BUN 15, creatinine 1.04, glucose 146. Liver function test unremarkable. Troponin less than 0.02. This morning, sodium 141, potassium 4, chloride 105, bicarb 33, BUN 16, creatinine 0.56, glucose 71. INR 0.97. COVID-19 test negative. CAT scan of the pelvis done in the emergency room without contrast shows left acetabulum fracture. Venous Doppler of lower extremity, no evidence of DVT. Chest x-ray, no acute cardiopulmonary changes. Impression: 1. Left acetabulum fracture. 2. Hypothyroidism. 3. Chronic obstructive pulmonary disease. 4. Hypertension. 5. Hyperlipidemia. 6. Chronic diastolic congestive heart failure. 7. Anemia, chronic, unspecified. 8. Osteoporosis. 9. Rheumatoid arthritis. Plan: Admit the patient to hospital for further evaluation and management of this problem. The patient is appropriate for inpatient and is expected to spend 2 midnights in the hospital. We will continue her home medications per order, and medications will be given per order. Consult Dr. Whitman from Orthopedic Surgery and DVT prophylaxis was ordered using Lovenox. The patient lives at [facility] and I did recommend her to go to [facility] at least to start with and once her condition improves, then she may return back to [facility]. She did not like this idea, but I encouraged her to go ahead and talk to her son regarding this, and I have also requested Social Service consultation to assist the patient with [facility] placement if she agrees to do so. I will see her tomorrow for followup. ARNOL/MODL Voice ID: [id number] QUIN
[2021-01-13] MEDS: LEVOTHYROXINE SOD 0.05 MG TABLET PO SCH (07:30)
[2021-01-13] MEDS: TIOTROPIUM 5 SPRAYS/INHALER IH SCH (08:24)
[2021-01-13] MEDS: PARoxetine HCL 10 MG TAB PO SCH (08:24)
[2021-01-13] MEDS: ENOXAPARIN 40 MG/0.4 ML SQ SCH (08:24)
[2021-01-13] MEDS: predniSONE 5 MG TAB PO SCH (08:24)
[2021-01-13] MEDS: FUROSEMIDE 20 MG TABLET PO SCH (08:24)
[2021-01-13 08:41] VITALS: BP 155/84; TEMP 98.1
[2021-01-13 09:57] VITALS: O2SAT 94
--- NOTE | 2021-01-14 09:09 | DS ---
Date of Discharge: 01/13/2021 Disposition: Discharged to go home. Physical Examination: HEENT: Unremarkable. Lungs: Clear to auscultation. Heart: Heart sounds normal. Abdomen: Soft. Bowel sounds normal. No guarding, rigidity, tenderness, or distention. Extremities: Trace leg edema. Discharge Medications And Instructions: 1. Continue all prior home medications. 2. Weightbearing status, touchdown weightbearing to left leg. 3. Follow up at my office next week on 01/19/2021 and follow up with Dr. Whitman next week. Patient to call office for appointment. Discharge Diagnoses: 1. Left acetabulum fracture. 2. Hypothyroidism. 3. Chronic obstructive pulmonary disease. 4. Hypertension. 5. Hyperlipidemia. 6. Chronic diastolic congestive heart failure. 7. Anemia, chronic, unspecified. 8. Osteoporosis. 9. Rheumatoid arthritis. Hospital Course: 89-year-old female patient admitted to the hospital with increasing pain in her left hip region. Please see dictated H and P for more information. After the patient came into the emergency room, she was evaluated and diagnosed as having fracture of the left acetabulum. This fracture of the acetabulum did not show up on the pelvis x-ray, but it was picked up on the CAT scan. The patient was in hospital about 2-3 weeks ago with left hip fracture. At that time she did not have CAT scan of the pelvis. I did discuss with Dr. Whitman, who did the surgery, and the patient does not report any fall since her hip surgery, so Dr. Whitman believes that this acetabulum fracture might have been present last time, but it was not picked up on x-ray and this time it got picked up on a CAT scan. He did not suggest any surgical intervention. It was recommended to patient to go to long term facility and she refused to go there and she decided to go back to [facility]. Once again today on the day of discharge, I gave her my recommendation about going to long term facility just like the way I did it yesterday, but she refused just to do so and she informed me that her son is aware of her decision and he is not pushing her to go to long term facility either. So at this point, the patient will go back to independent living at [facility] and Social Service has made arrangements for her to have her home health care services and home physical therapy. I will see her at office next week for followup. ARNOL/MODL Voice ID: [id number] Report ID: [id number]
== END 2021-01-13 10:50 | disposition home health service (06) | DRG 536 ==
LOC: ER 15:19 → ERHOLD 19:52 → 2ND 01-12
PROVIDERS: ADMIT Internal Medicine; ATTEND Internal Medicine
DX: S32.402A Unspecified fracture of left acetabulum, initial encounter for closed fracture (principal); I50.32 Chronic diastolic (congestive) heart failure; I11.0 Hypertensive heart disease with heart failure; K21.9 Gastro-esophageal reflux disease without esophagitis; E03.9 Hypothyroidism, unspecified; D64.9 Anemia, unspecified; M81.0 Age-related osteoporosis without current pathological fracture; M06.9 Rheumatoid arthritis, unspecified; E78.5 Hyperlipidemia, unspecified; J44.9 Chronic obstructive pulmonary disease, unspecified; Z86.718 Personal history of other venous thrombosis and embolism; Z86.711 Personal history of pulmonary embolism; Z90.710 Acquired absence of both cervix and uterus; Z96.641 Presence of right artificial hip joint; Z79.890 Hormone replacement therapy; Z79.899 Other long term (current) drug therapy; Z79.52 Long term (current) use of systemic steroids; Z79.51 Long term (current) use of inhaled steroids; Z88.8 Allergy status to other drugs, medicaments and biological substances; Z90.49 Acquired absence of other specified parts of digestive tract; Z20.822 Contact with and (suspected) exposure to COVID-19
CPT/HCPCS: 36415; 71045; 72170; 72192; 80048; 80076; 83735; 83880; 84484; 85025; 85610; 93005; 93970; 96374; 97110; 97116; 97161; 97530; 99285; J1650; J3010; J7512; U0003